=== PATIENT | male | born 1970 | race Caucasian/White ===

== ENCOUNTER 2020-05-09 13:16 | Emergency (ER) | payer OTHER, SELFPAY ==
--- NOTE | ~2020-05-09 | CT_ITS ---
EXAMINATION: CT abdomen pelvis w con DATE: 05/09/2020 17:37 INDICATION: Left lower quadrant abdominal pain. Nausea and vomiting. TECHNIQUE: Computed tomography (CT) of the abdomen and pelvis was performed with 100 mL Omnipaque 350 intravenous contrast. Automated exposure control and iterative reconstruction technique were employe d. The dose-length product was 874.05 mGy-cm. COMPARISON: None. FINDINGS: The visualized portions of the lung bases demonstrate mild atelectasis. A calcified right l willie nodule is consistent with old granulomatous disease. No pleural effusion. The heart size is jamel l. No pericardial effusion. The liver, spleen, pancreas, adrenal glands, and kidneys are normal. Ther e are changes of cholecystectomy. There is an anastomosis in the sigmoid colon. There are changes of appendectomy. There are no dilated loops of bowel. There are no pathologically enlarged lymph nodes. There is no free intraperitoneal fluid. There is mild thoracolumbar spondylosis. IMPRESSION: 1. No etiology for the patient's symptoms. Reviewed, dictated and finalized at location A.
[2020-05-09 13:25] VITALS: BP 129/89; PULSE 107; RESP 18; TEMP 36.6; O2SAT 97
[2020-05-09 13:37] LABS: Basophils Percent Auto 0.6 % (0.2-1.2); Eosinophils Absolute Auto 0.1 K/mm3 (0-0.3); Eosinophils Percent Auto 1.3 % (0-4.4); Hematocrit 43.5 % (42.0-52.0); Hemoglobin 14.5 g/dL (14.0-18.0); Immature Granulocyte Absolute 0.01 K/mm3 (0.00-0.031); Immature Granulocyte Percent A 0.2 % (0-0.5); Lymphocytes Absolute Auto 2.18 K/mm3 (0.9-3.2); Lymphocytes Percent Auto 41.6 % (18.3-44.2); Mean Corpuscular HGB Conc 33.3 g/dl (32-36); Mean Corpuscular Hemoglobin 26.5 pg (26-34); Mean Corpuscular Volume 79.5 fl (80-100); Mean Platelet Volume 9.2 fl (7.4-10.4); Monocytes Absolute Auto 0.3 K/mm3 (0.1-0.6); Monocytes Percent Auto 5.7 % (2.6-8.5); Neutrophils Absolute Auto 2.7 K/mm3 (1.3-6.7); Neutrophils Percent Auto 50.6 % (45.5-73.1); Platelet Count Result 277 k/mm3 (150-375); Red Blood Count 5.47 M/mm3 (4.6-6.20); Red Cell Distribution Width 14.4 % (11.5-14.5); White Blood Count 5.2 K/mm3 (4.5-10.0)
[2020-05-09 13:48] LABS: Partial Thromboplastin Time 27.3 SECONDS (22.3-36.8); Prothrombin Time 12.8 Seconds (11.1-14.7)
[2020-05-09 13:51] LABS: Alanine Aminotransferase 38 U/L (4-50); Albumin Level 4.3 g/dL (3.5-5.1); Alkaline Phosphatase 57 U/L (38-126); Anion Gap 8 mmol/L (8-16); Aspartate Amino Transferase 37 U/L (17-59); Bilirubin,Total 0.3 mg/dL (0.2-1.3); Blood Urea Nitrogen 8 mg/dL (9-20); Calcium 9.6 mg/dL (8.4-10.2); Carbon Dioxide 25 mmol/L (22-30); Chloride 102 mmol/L (98-107); Estimated CRCL calculation 91 ml/min; Estimated Glomerular Filt Rate > 60; Glucose 233 mg/dL (75-110); Potassium 3.9 mmol/L (3.4-5.0); Sodium 135 mmol/L (137-145)
[2020-05-09 16:00] LABS: Add Urine Microscopic? YES; Appearance Urine Clear (Clear); Bacteria Urine Trace /hpf; Bilirubin Urine Negative (Negative); Blood Urine Negative (Negative); Color Urine Yellow (Yellow); Glucose Urine UA 2+ mg/dL (Negative); Ketones Urine Negative (Negative); Leukocyte Esterase Ur Negative LEU/UL (Negative); Mucus Urine Few /lpf; Nitrate Urine Negative (Negative); Protein Urine Negative (Negative); RBC Urine 0-2 /hpf (0-2); Specific Grav Ur 1.023 (1.001-1.035); Squamous Epithelial Cell Urine Rare /hpf (Few); Urobilinogen Urine Negative mg/dL (<2.0); WBC Urine 0-3 /hpf
[2020-05-09 16:09] VITALS: BP 142/98; PULSE 98; RESP 17; O2SAT 98
--- NOTE | 2020-05-09 16:20 | ED.ABDPAIN ---
HPI - Abdominal Pain General Chief Complaint: Abdominal Pain Stated Complaint: abd pain Time Seen by Provider: 05/09/20 16:05 Source: RN notes reviewed History of Present Illness HPI narrative: Patient presents emergency department from home for abdominal pain. Patient states symptoms been ongoing for the past 6 days. Pain is located in the left lower quadrant and does not radiate described as sharp and stabbing. Associated with nausea vomiting and diarrhea. Patient states he has had some small amount of blood in his stool as well. States he has a history of diverticulitis and has had 8 cm of his colon removed. States this feels like previous diverticulitis. States he is taken nothing for pain today. Patient states he recently moved up here from [place] does not have a regularly established PCP in this area. He denies any fevers or chills chest pain shortness of breath or any other symptoms Related Data Home Medications Medication Instructions Recorded Confirmed escitalopram oxalate [Lexapro] 5 mg PO DAILY 05/09/20 metformin 1,000 mg PO BID 05/09/20 trazodone 50 mg PO BID 05/09/20 Allergies Allergy/AdvReac Type Severity Reaction Status Date / Time gabapentin Allergy Unknown Verified 05/09/20 16:07 ketorolac [From Toradol] Allergy Unknown Verified 05/09/20 16:07 promethazine [From Phenergan] Allergy Unknown Verified 05/09/20 16:07 Review of Systems Review of Systems: Narrative: Gen.: Denies fevers or chills ENT: Denies congestion Respiratory: Denies shortness of breath or cough CV: See HPI denies burning, urgency, frequency or hematuria Musculoskeletal: Denies back pain or muscle pain Neuro: Denies numbness, tingling, weakness or focal weakness Skin: Denies rash Except as documented, all other systems reviewed and negative [facility] Past Medical History Medical History (Updated 05/09/20 @ 17:53 by Blu Guadarrama DO) Diverticulitis Social History Social History (Updated 05/09/20 @ 16:21 by Blu Guadarrama DO) Smoking status: Never smoker Gender identity (if verbalized by the patient): Male Exam Narrative: Exam Narrative: APPEARANCE: No acute distress, nontoxic, resting in bed HEENT: Normocephalic, atraumatic, OMM RESPIRATORY: No respiratory distress, clear to auscultation bilaterally with no rhonchi wheezing or rales CARDIOVASCULAR: RRR s murmur ABDOMINAL: Soft, nondistended, tender palpation left lower quadrant, no tenderness left upper quadrant, right upper quadrant lower quadrant, no rebound or guarding Rectal: No hemorrhoids or fissures, moderate mass of brown stool that is Hemoccult negative MUSCULOSKELETAl: Moves all extremities. No clubbing, cyanosis or edema. NEURO: Awake and alert. Following commands, speech normal, no focal deficits SKIN:: Warm, dry. Normal Color PSYCHIATRIC: Normal affect/mood Course Course Emergency Course: Patient states he just returned from [facility] and he is now going to be living here. He states that morphine does not normally help with his pain he normally requires Dilaudid. States he is currently on Augmentin Patient states that they are feeling much better at this time. States abdominal pain has improved. Abdominal exam shows no surgical abdomen. Discussed with patient results of workup and diagnosis. Discussed need for follow-up with primary care physician, reasons to return to the emergency department in proper use of medication. Patient understands and agrees to current treatment plan Vital Signs Vital signs: Vital Signs Temperature 97.8 F 05/09/20 13:25 Pulse Rate 107 H 05/09/20 13:25 Respiratory Rate 18 05/09/20 13:25 Blood Pressure 129/89 05/09/20 13:25 Pulse Oximetry 97 05/09/20 13:25 Temperature 97.8 F 05/09/20 13:25 Pulse Rate 98 05/09/20 16:09 Respiratory Rate 17 05/09/20 16:09 Blood Pressure 142/98 H 05/09/20 16:09 Pulse Oximetry 98 05/09/20 16:09 MDM - Abdominal Pain MDM Narrative M
[2020-05-09] MEDS: SODIUM CHLORIDE 0.9% IV 1,000 ML 999 ML IV CONT (16:26)
[2020-05-09] MEDS: ONDANSETRON INJ 4 MG/2 ML VIAL IV PUSH (16:26)
[2020-05-09] MEDS: MORPHINE SULFATE (*CRX) 4 MG/ML INJ IV PUSH (16:26)
[2020-05-09] MEDS: HYDROmorphone HCL INJ (*CRX) 1 MG/ML SYR 0.5 MG IV PUSH (17:15)
== END 2020-05-09 18:39 | disposition home or self-care (01) ==
PROVIDERS: Emergency Medicine; Emergency Provider Emergency Medicine
DX: R10.32 Left lower quadrant pain (principal)
CPT/HCPCS: 36415; 74177; 80053; 81001; 85025; 85610; 85730; 86850; 86900; 86901; 96361; 96374; 96375; 99284; J1170; J2270; J2405; J7030; Q9967

== ENCOUNTER 2020-08-29 13:36 | Inpatient (IN) | payer OTHER, SELFPAY ==
[2020-08-29] VITALS (29 sets, daily range): BP systolic 102–160; BP diastolic 73–98; PULSE 84–103; RESP 18–40; TEMP 36.3–37.2; O2SAT 93–100; BMI 27.3
--- NOTE | ~2020-08-29 | XR_ITS ---
EXAMINATION: XR chest 1V portable DATE: 08/29/2020 15:28 INDICATION: COVID-19 pneumonia. Shortness of breath. TECHNIQUE: A single frontal view of the chest was obtained. COMPARISON: CT abdomen and pelvis 05/09/2020 FINDINGS: There is chronic mild elevation of right hemidiaphragm. There are patchy airspace opacities in all lung zones bilaterally. No pleural effusion or pneumothorax. The heart size is normal. IMPRESSION: 1. Diffuse lung disease, consistent with pneumonia. Reviewed, dictated and finalized at location A. STOR INSPECTOR
--- NOTE | ~2020-08-29 | CT_ITS ---
EXAMINATION: CT abdomen pelvis wo con EXAM DATE: 08/29/2020 17:42 INDICATION: Abdominal pain. TECHNIQUE: Spiral CT of the abdomen and pelvis was performed without contrast. Axial, coronal and s agittal images were reviewed. The dose-length product (DLP) for this examination was 709.04 mGy-cm. The exposure was tailored according to patient size (auto mA exposure control), and iterative recons truction (ASIR) was used as additional dose reduction technique. Comparison is made to prior examinat ion from . FINDINGS: There is moderate amount of bibasilar peripheral predominant airspace disease, appearance i s consistent with subacute stage of COVID 19 pneumonia. Other etiologies are not excludable. The liver, spleen, adrenal glands and pancreas are unremarkable. There are cholecystectomy clips. T here is no nephrolithiasis or hydronephrosis. The prostate is unremarkable. The bladder is unremar kable. There is no retroperitoneal or pelvic lymphadenopathy. Small umbilical fat-containing hernia. There are surgical changes consistent with appendectomy. The stomach and small bowel are unremarkab le. Rectosigmoid anastomosis. There is expected amount of colonic stool. No free intraperitoneal ga s. The heart is normal in size. There are no pericardial or pleural effusions. There are no osteo blastic or osteolytic lesions identified. IMPRESSION: 1. No acute intra-abdominal findings. 2. Moderate amount of bibasilar airspace disease appearance consistent with subacute COVID 19 pneumo hafsa. Reviewed, dictated and finalized at location A. NET MOUNTER IMPRESSION: 1. No acute intra-abdominal findings. 2. Moderate amount of bibasilar airspace disease appearance consistent with nieves bacute COVID 19 pneumonia.
--- NOTE | ~2020-08-29 | CT_ITS ---
EXAMINATION: CTA chest PE protocol DATE: 08/30/2020 14:30 INDICATION: COVID-19 pneumonia. Tachycardia. TECHNIQUE: Computed tomography angiography (CTA) of the chest was performed with 100 mL Omnipaque-350 intravenous contrast timed to evaluate the pulmonary arteries. Coronal maximum intensity projection 3D-reconstructions were created by the technologist. Automated exposure control and iterative reconst ruction technique were employed. The dose-length product was 515.99 mGy-cm. COMPARISON: Chest single view 08/29/2020, CT abdomen and pelvis 05/09/2020 FINDINGS: There is chronic mild elevation of right hemidiaphragm. There is a pneumatocele in right up per lobe. A calcified right lung nodule is consistent with old granulomatous disease. There are patch y airspace and groundglass opacities in all lobes with a peripheral predominance. No pleural effusion . There is no pulmonary embolus. The heart size is normal. No pericardial effusion. There are changes of cholecystectomy. There is mild thoracic spondylosis. IMPRESSION: 1. No pulmonary embolus. Sensitivity is moderately decreased by motion artifact. 2. Diffuse lung disease, consistent with COVID-19 pneumonia. Reviewed, dictated and finalized at location A. PLANT SUPERVISOR IMPRESSION: 1. No pulmonary embolus. Sensitivity is moderately decreased by motion artifact . 2. Diffuse lung disease, consistent with COVID-19 pneumonia.
--- NOTE | 2020-08-29 14:11 | ECG_ITS ---
Measurements Intervals [place] Rate: 100 P: 20 MN: 184 QRS: 16 QRSD: 95 T: 1 QT: 374 QTc: 484 Interpretive Statements SINUS TACHYCARDIA MINIMAL Q WAVES- INFERIOR LEADS BORDERLINE ST ABNORMALITY- ANT/LAT LEADS BASELINE ARTIFACT- I, II, AVR, AVL,A VF, V1 BORDERLINE ECG Electronically Signed On 08-29-2020 15:01:36 [employer] by King Chavez D.O.
--- NOTE | 2020-08-29 14:13 | ED.SOB ---
HPI - SOB/Dyspnea General Chief Complaint: Shortness of Breath/Dyspnea Stated Complaint: COVID +, SOB Time Seen by Provider: 08/29/20 13:59 History of Present Illness HPI Narrative: 50 yo male w/ h/o DM, depression presents to the ED with multiple complaints. He began to feel ill on 08/16/2020. He had PATTON, cough, nausea. He tested positive for COVID-19 on 08/23/2020. He reports that he is now SOB and weak. He is concerned that he may have a GI bleed. He does report dark foul smelling stools and epigastric pain. This is reportedly his third time in the Ed since being diagnsed. Related Data Home Medications Medication Instructions Recorded Confirmed escitalopram oxalate [Lexapro] 5 mg PO DAILY 05/09/20 metformin 1,000 mg PO BID 05/09/20 trazodone 50 mg PO BID 05/09/20 Tessalon Perles 08/29/20 Allergies Allergy/AdvReac Type Severity Reaction Status Date / Time gabapentin Allergy Unknown Verified 08/29/20 14:09 ketorolac [From Toradol] Allergy Unknown Verified 08/29/20 14:09 promethazine [From Phenergan] Allergy Unknown Verified 08/29/20 14:09 Review of Systems Review of Systems: All systems reviewed & are unremarkable except as noted in HPI and below Constitutional: Constitutional: Reports fatigue, Reports fever(s) and Reports weakness Cardiovascular: Cardiovascular: Reports chest pain Respiratory: Respiratory: Reports chest congestion, Reports cough and Reports dyspnea Gastrointestinal: Gastrointestinal: Reports abdominal pain, Reports nausea and Reports vomiting Genitourinary: Genitourinary: Denies dysuria Neurologic: Reports numbness and Reports weakness [facility] Past Medical History Medical History Diabetes mellitus Diverticulitis Social History Social History Smoking status: Never smoker Gender identity (if verbalized by the patient): Male Exam Const: General: no acute distress, alert and ill appearing Orientation/consciousness: patient oriented x3 HENMT: Mouth: Yes dry mucous membranes Eyes: Pupils: Equal, round and reactive pupils present Resp: Effort & Inspection: tachypneic Auscultation: crackles and rhonchi Cardio: Rate: tachycardic Rhythm: regular rhythm GI: GI Palp: Yes Tenderness to palpation present (GI) (epigastric) Skin: General skin exam: normal color Neuro: General: patient oriented x3, moves all extremities and CN's II-XI intact bilaterally Speech: normal speech Extrem: General: normal to inspection Course Vital Signs Vital signs: Vital Signs Temperature 36.3 C L 08/29/20 13:56 Pulse Rate 98 08/29/20 13:56 Respiratory Rate 33 H 08/29/20 13:56 Blood Pressure 146/73 H 08/29/20 13:56 Pulse Oximetry 93 08/29/20 13:56 Temperature 36.3 C L 08/29/20 13:56 Pulse Rate 96 08/29/20 14:04 Respiratory Rate 33 H 08/29/20 13:56 Blood Pressure 146/73 H 08/29/20 13:56 Pulse Oximetry 97 08/29/20 14:08 MDM - SOB/Dyspnea Differential Diagnosis Differential diagnosis: Likely community acquired pneumonia and other (COVID-19, GI bleed, dehydration) Lab Data Attestation: I reviewed the patient's lab results. Result diagrams: 08/29/20 14:40 08/29/20 14:40 Labs: Lab Results 08/29/20 08/29/20 08/29/20 Range/Units 14:40 14:40 14:40 WBC 3.4 L (4.5-10.0) K/mm3 RBC 5.10 (4.6-6.20) M/mm3 Hgb 13.1 L (14.0-18.0) g/dL Hct 39.0 L (42.0-52.0) % MCV 76.5 L (80-100) fl MCH 25.7 L (26-34) pg MCHC 33.6 (32-36) g/dl RDW 14.0 (11.5-14.5) % Plt Count 312 (150-375) k/mm3 MPV 9.4 (7.4-10.4) fl Immature Gran % (Auto) 0.3 (0-0.5) % Neut % (Auto) 63.6 (45.5-73.1) % Lymph % (Auto) 29.1 (18.3-44.2) % [place] % (Auto) 6.4 (2.6-8.5) % Eos % (Auto) 0.3 (0-4.4) % Baso % (Auto) 0.3 (0.2-1.2) % Lymph # (Auto) 1.00 (0.9-3.2) K/mm3 [place] # (Auto
[2020-08-29] MEDS: SODIUM CHLORIDE 0.9% IV 1,000 ML 999 ML IV CONT (14:37)
[2020-08-29] MEDS: ONDANSETRON INJ 4 MG/2 ML VIAL IV PUSH (14:39)
[2020-08-29] MEDS: PANTOPRAZOLE SODIUM IV 40 MG VIAL IV PUSH (14:40)
[2020-08-29 14:50] LABS: Basophils Percent Auto 0.3 % (0.2-1.2); Eosinophils Percent Auto 0.3 % (0-4.4); Hemoglobin 13.1 g/dL (14.0-18.0); Immature Granulocyte Absolute 0.01 K/mm3 (0.00-0.031); Immature Granulocyte Percent A 0.3 % (0-0.5); Lymphocytes Percent Auto 29.1 % (18.3-44.2); Mean Corpuscular HGB Conc 33.6 g/dl (32-36); Mean Corpuscular Hemoglobin 25.7 pg (26-34); Mean Corpuscular Volume 76.5 fl (80-100); Mean Platelet Volume 9.4 fl (7.4-10.4); Monocytes Absolute Auto 0.2 K/mm3 (0.1-0.6); Monocytes Percent Auto 6.4 % (2.6-8.5); Neutrophils Absolute Auto 2.2 K/mm3 (1.3-6.7); Neutrophils Percent Auto 63.6 % (45.5-73.1); Platelet Count Result 312 k/mm3 (150-375); White Blood Count 3.4 K/mm3 (4.5-10.0)
[2020-08-29 14:59] LABS: Partial Thromboplastin Time 28.6 SECONDS (22.3-36.8); Prothrombin Time 13.4 Seconds (11.1-14.7)
[2020-08-29 15:00] LABS: Lactic Acid Reflex 1.1 mmol/L (0.7-2.1)
[2020-08-29 15:01] LABS: Alanine Aminotransferase 31 U/L (4-50); Albumin Level 3.9 g/dL (3.5-5.1); Alkaline Phosphatase 75 U/L (38-126); Anion Gap 10 mmol/L (8-16); Aspartate Amino Transferase 58 U/L (17-59); Bilirubin,Total 0.5 mg/dL (0.2-1.3); Blood Urea Nitrogen 10 mg/dL (9-20); Calcium 8.7 mg/dL (8.4-10.2); Carbon Dioxide 24 mmol/L (22-30); Chloride 100 mmol/L (98-107); Estimated CRCL calculation 91 ml/min; Estimated Glomerular Filt Rate > 60; Glucose 148 mg/dL (75-110); Lipase 75 U/L (23-300); Sodium 134 mmol/L (137-145)
[2020-08-29 15:03] LABS: Alveolar/Arterial O2 Gradient 156.9 mmHg; Base Excess ABG -10.2 mEq/l (+/-2.0); Fractional Inspired Oxygen 30 %; HCO3 ABG 13.5 mEq/l (22.0-26.0); Oxygen Content ABG 7.6 %vol (16.0-22.0); Oxyhemoglobin 59.1 % THb (90.0-100.0); PO2 FiO2 Ratio Arterial Blood 0.99 %; Total Hemoglobin 9.1 g/dL (12.0-18.0); pH ABG 7.382 (7.350-7.450)
[2020-08-29 15:19] LABS: PCO2 ABG 23.3 mmHg (35.0-45.0)
[2020-08-29 15:20] LABS: PO2 ABG 29.6 mmHg (80.0-100.0)
[2020-08-29 15:21] LABS: Device ROOM AIR; Modified Allen's Test Pass; Site Drawn RIGHT BRACHIAL
[2020-08-29] MEDS: LORazepam INJ (*CRX) 2 MG/ML VIAL 0.5 MG IV PUSH ×2 (16:59→21:09)
[2020-08-29] MEDS: LOPERAMIDE HCL 2 MG CAPSULE 4 MG PO (17:00)
--- NOTE | 2020-08-29 17:10 | PM.IMHP ---
H&P: HPI History of Present Illness Date/Time: 08/29/20 17:10 Chief Complaint: Shortness of breath Narrative: Erich Allen is a 50 year old male Who stated that he went to [facility] around August 22 to and was tested positive for COVID-19. The patient stated that he was feeling poor on [place]. His fiancee was tested positive for COVID-19 and has already recovered. The patient comes in today with multiple complaints. He has left lower quadrant abdominal pain and states that he is had diverticulitis in the past. He states that he is very achy and he has been having fever and chills. He stated that he has taken Motrin and Tylenol for the discomfort it did not help. The patient is having diarrhea as well and is requesting Imodium. He is also complaining of having some nausea. We discussed his abdominal pain and he stated that he would not take any contrast at this time because it makes him feel funny. He was started on IV Decadron. His potassium was noted to be 3.0 and I ordered him a potassium rider. Patient is feeling quite nauseated and anxious. His respirations were in the upper 30s and he was started on 1.5 L of oxygen per nasal cannula. The patient suffers from severe PTSD. His ABGs were mixed and he refused to have them redrawn. Sodium was 134 potassium 3.0. He is diabetic and his blood sugar was noted to be 148. Patient is being admitted to observation on the date of service of 08/29/2020 Review of Systems Review of Systems: All systems reviewed & are unremarkable except as noted in HPI and below Constitutional: Constitutional: Reports as per HPI and Reports no additional constitutional complaints Eyes: Eyes: Reports as per HPI and Reports no additional eye complaints ENT: Reports system reviewed and no additional complaints, except as documented and Reports Normal hearing present Cardiovascular: Cardiovascular: Reports no additional cardiovascular complaints Respiratory: Respiratory: Reports no additional respiratory complaints and Reports no additional respiratory complaints Gastrointestinal: Gastrointestinal: Reports as per HPI and Reports no additional gastrointestinal complaints Musculoskeletal: Musculoskeletal: Reports no additional musculoskeletal complaints Integumentary/Breasts: Skin/Breast: Reports system reviewed and no additional complaints, except as docu and Reports as per HPI Neurologic: Reports system reviewed and no additional complaints, except as documented, Reports as per HPI and Reports Normal hearing present Psychiatric: Psychiatric: Reports no additional psychiatric complaints and Reports as per HPI Endocrine: Endocrine: Reports no additional endocrine complaints Hematologic/Lymphatic: Hematologic/Lymphatic: Reports no additional hematologic/lymphatic complaints Allergic/Immunologic: Allergic/Immunologic: Reports no additional allergic/immunologic complaints [facility] Past Medical History Medical History (Updated 08/29/20 @ 17:22 by Virginie King NP) Depression Diabetes mellitus Diverticulitis PTSD (post-traumatic stress disorder) Surgical History Surgical History (Updated 08/29/20 @ 17:22 by Virginie King NP) H/O hand surgery History of ankle surgery right History of appendectomy History of colon resection History of Ludmila fundoplication Hx of cholecystectomy Family History Family History (Updated 08/29/20 @ 17:23 by Virginie King NP) Father Heart disease Social History Social History (Updated 08/29/20 @ 17:28 by Virginie King NP) Social History: the patient is engaged. he has a son. He does not have a durable power claims attorney for healthcare poa and he is full code. He denies any alcohol or illicit drug use. 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 Smoking status: Never smoker Gender identity (if verbalized by the patient): Male Meds Home Medications and Allergies Home Medications Medication Instr
--- NOTE | 2020-08-29 17:54 | ADMGEN ---
This patient, Erich Allen, was admitted to 3 Med Surg Room 329-01 @ 1742. Patient/family oriented to hospital policies and general routines including ID bracelet, bed and alarms, visiting hours, pain management, procedures, bathroom and other care routines, personal items, smoking policy, room service/diet, and visiting hours. Information on how to activate the Rapid Response Team has been discussed. Patient/Family are encouraged to report perceived risks to care and to ask questions if they do not understand what they are told or what they should do.
[2020-08-29] MEDS: REMDESIVIR 200 MG/NS 250 ML 200 MG/250 ML BAG 250 MG IVPB (18:00)
[2020-08-29 18:01] LABS: Glucose Point of Care 152 (65-105)
[2020-08-29 18:28] LABS: Alanine Aminotransferase 29 U/L (4-50)
[2020-08-29] MEDS: ALBUTEROL SULFATE (*SP) AEROSOL 1 PUFF 2 PUFF INHALATION (21:06)
[2020-08-29] MEDS: KCL 20 MEQ/SW 100 ML 100 ML 50 MEQ IVPB (21:08)
[2020-08-29] MEDS: guaiFENesin/DEXTROMETHORPHAN 10 ML UDC PO (21:14)
[2020-08-29] MEDS: INSULIN ASPART (*BKC) 100 UNITS/ML SUB-Q (22:26)
[2020-08-29] MEDS: traZODone HCL 50 MG TABLET PO (22:26)
[2020-08-29 22:43] LABS: Glucose Point of Care 297 (65-105)
[2020-08-30] VITALS (10 sets, daily range): BP systolic 134–143; BP diastolic 65–87; PULSE 65–100; RESP 16–20; TEMP 36.2–36.9; O2SAT 94–97
[2020-08-30] MEDS: ALBUTEROL SULFATE (*SP) AEROSOL 1 PUFF 2 PUFF INHALATION ×4 (01:49→21:31)
[2020-08-30] MEDS: guaiFENesin/DEXTROMETHORPHAN 10 ML UDC PO ×3 (01:55→21:02)
[2020-08-30 06:54] LABS: Basophils Percent Auto 0.5 % (0.2-1.2); Hematocrit 35.7 % (42.0-52.0); Hemoglobin 11.9 g/dL (14.0-18.0); Immature Granulocyte Absolute 0.01 K/mm3 (0.00-0.031); Immature Granulocyte Percent A 0.5 % (0-0.5); Lymphocytes Percent Auto 19.1 % (18.3-44.2); Mean Corpuscular HGB Conc 33.3 g/dl (32-36); Mean Corpuscular Hemoglobin 26.2 pg (26-34); Mean Corpuscular Volume 78.6 fl (80-100); Mean Platelet Volume 9.5 fl (7.4-10.4); Monocytes Absolute Auto 0.1 K/mm3 (0.1-0.6); Monocytes Percent Auto 5.7 % (2.6-8.5); Neutrophils Absolute Auto 1.6 K/mm3 (1.3-6.7); Neutrophils Percent Auto 74.2 % (45.5-73.1); Platelet Count Result 304 k/mm3 (150-375); Red Blood Count 4.54 M/mm3 (4.6-6.20); Red Cell Distribution Width 14.4 % (11.5-14.5); White Blood Count 2.1 K/mm3 (4.5-10.0)
[2020-08-30 07:10] LABS: Alanine Aminotransferase 26 U/L (4-50); Albumin Level 3.6 g/dL (3.5-5.1); Alkaline Phosphatase 64 U/L (38-126); Anion Gap 6 mmol/L (8-16); Aspartate Amino Transferase 38 U/L (17-59); Bilirubin,Total 0.4 mg/dL (0.2-1.3); Blood Urea Nitrogen 10 mg/dL (9-20); Calcium 8.6 mg/dL (8.4-10.2); Carbon Dioxide 26 mmol/L (22-30); Chloride 103 mmol/L (98-107); Estimated CRCL calculation 91 ml/min; Estimated Glomerular Filt Rate > 60; Glucose 291 mg/dL (75-110); Lactate Dehydrogenase 618 U/L (313-618); Potassium 4.2 mmol/L (3.4-5.0); Sodium 135 mmol/L (137-145)
[2020-08-30 07:57] LABS: Thyroid Stimulating Hormone Reflex 0.818 uIU/mL (0.465-4.68)
[2020-08-30] MEDS: ESCITALOPRAM OXALATE 5 MG TABLET PO (09:06)
[2020-08-30] MEDS: DEXAMETHASONE SOD PHOS INJ 4 MG/ML VIAL 6 MG IV PUSH (09:06)
[2020-08-30 09:07] LABS: Glucose Point of Care 247 (65-105)
[2020-08-30] MEDS: INSULIN ASPART (*BKC) 100 UNITS/ML SUB-Q ×3 (09:07→17:16)
[2020-08-30] MEDS: hydrALAZINE HCL 20 MG/ML VIAL 10 MG IV PUSH (09:10)
--- NOTE | 2020-08-30 11:19 | PM.IMPN ---
Progress Note: A&P Assessment and Plan (1) Pneumonia due to 2019-nCoV: Code(s): U07.1 - COVID-19; J12.82 - Pneumonia due to coronavirus disease 2019 Status: Acute Assessment and Plan: Patient was diagnosed on August 22, 2020 -he continues to feel short of breath and now requires oxygen -continue Remdesivir and Decadron -continue O2 for saturations less than 90 -he is at risk for PE since he has diabetes, overweight, and has COVID-19, CTA ordered -he is agreeable to Lovenox, start 40 mg b.i.d. -encouraged spirometer to open his lungs (2) Acute hypoxemic respiratory failure: Code(s): J96.01 - Acute respiratory failure with hypoxia Status: Acute Assessment and Plan: Likely due to above -check CTA to rule out PE (3) EKG abnormality: Code(s): R94.31 - Abnormal electrocardiogram [ECG] [EKG] Status: Acute Assessment and Plan: Patient has some very subtle EKG abnormalities -no prior EKG to compare -no reports of chest pain -changes could be due to PE, obtain CTA -will draw troponin and BNP to ensure no silent [place] -I also heard a slight murmur which he says he is unaware of. Will await above and may consider echo (4) PTSD (post-traumatic stress disorder): Code(s): F43.10 - Post-traumatic stress disorder, unspecified Status: Chronic Assessment and Plan: No current issues. -continue Lexapro and trazodone (5) Depression: Code(s): F32.9 - Major depressive disorder, single episode, unspecified Status: Chronic Assessment and Plan: Stable, Lexapro and trazodone (6) Hyponatremia: Code(s): E87.1 - Hypo-osmolality and hyponatremia Status: Acute Assessment and Plan: Improved at 135 (7) Hypokalemia: Code(s): E87.6 - Hypokalemia Status: Acute Assessment and Plan: Resolved (8) Diverticulitis: Code(s): K57.92 - Diverticulitis of intestine, part unspecified, without perforation or abscess without bleeding Status: Acute Assessment and Plan: No further complaints of abdominal pain and he is eating and drinking okay -CT abdomen pelvis shows no current infection (9) Diabetes mellitus: Code(s): E11.9 - Type 2 diabetes mellitus without complications Status: Inactive Assessment and Plan: Last glucose 247 -likely worsened due to dexamethasone -sliding scale increased -hold metformin -monitor with Accu-Cheks and continue sliding scale insulin Time Spent With Patient Time with patient: 25 - 35 minutes Subjective Date/time seen: 08/30/20 11:19 Interval history: Pt is a 50 year old male who presented emergency room for COVID-19 with shortness of breath. Patient was seen today and states he still can't take very deep breaths without coughing or feeling short of breath. He has not been out of bed. He does not feel short of breath when he does not move. He is eating and drinking a little better than he was outpatient. He feels like he has made a little improvement. We talked about the importance of the incentive spirometer as well as anticoagulation with patients with COVID-19. I reviewed with him the worry for a PE since he is tachycardic, has COVID-19, and has Q-waves and inverted T-waves on the EKG. He states he has absolutely no chest pain but agrees to do the CTA. He says he is not allergic to contrast but he does get a little nauseated when he gets it. After talking about the pros and cons, he agreed to the CTA Review of Systems Review of Systems: All systems reviewed & are unremarkable except as noted in HPI and below Exam Narrative: Exam Narrative: General: Well developed well nourished patient in NAD HEENT: normocephalic Neck: supple Neuro: Alert and oriented x4 CV:RRR with slight systolic murmur heard at the apex Resp: Patient unable to take deep breaths without significant cough. Decreased breath gia
[2020-08-30 12:17] LABS: Glucose Point of Care 324 (65-105)
[2020-08-30 12:24] LABS: NT Pro B Type Natriuretic Pept 227 PG/ML (5-100); Troponin I < 0.012 ng/mL (0.000-0.034)
[2020-08-30] MEDS: ENOXAPARIN 40 MG/0.4 ML SYRINGE SUB-Q ×2 (12:40→21:02)
[2020-08-30] MEDS: ONDANSETRON INJ 4 MG/2 ML VIAL IV PUSH (13:32)
[2020-08-30] MEDS: LORazepam INJ (*CRX) 2 MG/ML VIAL 0.5 MG IV PUSH (16:09)
[2020-08-30 17:22] LABS: Glucose Point of Care 345 (65-105)
[2020-08-30] MEDS: MELATONIN 5 MG TABLET PO (21:02)
[2020-08-30] MEDS: traZODone HCL 50 MG TABLET PO (21:02)
[2020-08-30 21:26] LABS: Glucose Point of Care 289 (65-105)
[2020-08-30] MEDS: LORazepam INJ (*CRX) 2 MG/ML VIAL 1 MG IV PUSH (21:58)
[2020-08-30] MEDS: REMDESIVIR 100 MG/NS 250 ML 100 MG/250 ML BAG 250 MG IVPB (21:59)
[2020-08-31] VITALS (8 sets, daily range): BP systolic 126–167; BP diastolic 72–88; PULSE 63–108; RESP 18–20; TEMP 36.4–36.9; O2SAT 92–97
--- NOTE | 2020-08-31 | ECHO_ITS ---
Patient Info Name: Erich Allen Age: 50 years : 1970 Gender: Male Ht: 71 in Wt: 196 lbs BSA: 2.13 m2 HR: 78 bpm BP: 155 / 88 mmHg Technical Quality: Good Exam Date: 08/31/2020 2:46 PM Exam Location: [facility] Patient Status: Inpatient Admit Date: 08/30/2020 Staff Ordering Physician: Ann Fletcher PA-C Educational Program Director: Blanca Benedict RDCS Attending Provider: Kajal Harris MD Referring Physician: Chance WOODSON; Exam Type: CA echo doppler color flow Study Info Indications R01.1 - Cardiac murmur, unspecified Complete two-dimensional, color flow and Doppler transthoracic echocardiogram is performed. Summary 1. Complete two-dimensional, color flow and Doppler transthoracic echocardiogram is performed. 2. Left ventricular chamber dimension is normal. 3. Left ventricular systolic function is normal, estimated at 65-70%. 4. The left ventricular diastolic function is abnormal. 5. E/e' 13 is mildly elevated. Left Ventricle E/e' 13 is mildly elevated. Left ventricular chamber dimension is normal. Left ventricular systolic function is normal, estimated at 65-70%. The left ventricular diastolic function is abnormal. Right Ventricle Right ventricular chamber dimension is normal. Right ventricular systolic function is normal. Left Atria Left atrial chamber dimension is normal. Right Atria Right atrial chamber dimension is normal. Aortic Valve The aortic valve is trileaflet. There is no aortic valve stenosis. There is no aortic valve regurgitation. Pulmonic Valve There is no pulmonic regurgitation. Mitral Valve There is no mitral valve stenosis. There is no mitral valve regurgitation. Tricuspid Valve There is no tricuspid valve regurgitation. Pericardium/Pleural There is no pericardial effusion. Inferior Vena Cava Normal inferior vena cava with >50% collapse upon inspiration consistent with normal right atrial pressure, 5 mmHg. Aorta The aortic root size at the sinus of Valsalva is normal. Left Ventricular Outflow Tract Name Value Normal LVOT 2D LVOT Diameter 2.0 cm LVOT Doppler LVOT Peak Gradient 8 mmHg LVOT Mean Gradient 5 mmHg LVOT VTI 28 cm LVOT VTI/AV VTI Ratio 0.8 LVOT Stroke Volume 88 ml LVOT CO 6.3 l/min LVOT CI 2.9 l/min/m2 Pulmonic Valve Name Value Normal RVOT Doppler RVOT Peak Gradient 2 mmHg PV Doppler PV Peak Gradient 4 mmHg Mitral Valve Name Value No
[2020-08-31] MEDS: guaiFENesin/DEXTROMETHORPHAN 10 ML UDC PO ×3 (01:50→21:12)
[2020-08-31] MEDS: ALBUTEROL SULFATE (*SP) AEROSOL 1 PUFF 2 PUFF INHALATION ×4 (01:57→21:10)
[2020-08-31 06:34] LABS: Hematocrit 35.6 % (42.0-52.0); Hemoglobin 11.6 g/dL (14.0-18.0); Mean Corpuscular HGB Conc 32.6 g/dl (32-36); Mean Corpuscular Hemoglobin 26.2 pg (26-34); Mean Corpuscular Volume 80.5 fl (80-100); Mean Platelet Volume 9.6 fl (7.4-10.4); Platelet Count Result 315 k/mm3 (150-375); Red Blood Count 4.42 M/mm3 (4.6-6.20); Red Cell Distribution Width 14.7 % (11.5-14.5)
[2020-08-31 06:46] LABS: Alanine Aminotransferase 23 U/L (4-50); Anion Gap 10 mmol/L (8-16); Blood Urea Nitrogen 12 mg/dL (9-20); Calcium 8.8 mg/dL (8.4-10.2); Carbon Dioxide 26 mmol/L (22-30); Chloride 102 mmol/L (98-107); Estimated CRCL calculation 91 ml/min; Estimated Glomerular Filt Rate > 60; Glucose 344 mg/dL (75-110); Sodium 138 mmol/L (137-145)
[2020-08-31 08:33] LABS: Glucose Point of Care 328 (65-105)
[2020-08-31 09:22] LABS: Hemoglobin A1C 7.8 % (<5.7)
[2020-08-31] MEDS: DEXAMETHASONE SOD PHOS INJ 4 MG/ML VIAL 6 MG IV PUSH (09:58)
[2020-08-31] MEDS: ENOXAPARIN 40 MG/0.4 ML SYRINGE SUB-Q ×2 (09:58→21:12)
[2020-08-31] MEDS: ESCITALOPRAM OXALATE 5 MG TABLET PO (09:58)
[2020-08-31] MEDS: INSULIN ASPART (*BKC) 100 UNITS/ML SUB-Q ×3 (10:00→17:26)
[2020-08-31] MEDS: LORazepam INJ (*CRX) 2 MG/ML VIAL 1 MG IV PUSH ×2 (10:21→21:27)
[2020-08-31 12:21] LABS: Glucose Point of Care 259 (65-105)
--- NOTE | 2020-08-31 14:11 | PM.IMPN ---
Progress Note: A&P Assessment and Plan (1) Pneumonia due to 2019-nCoV: Code(s): U07.1 - COVID-19; J12.82 - Pneumonia due to coronavirus disease 2019 Status: Acute Assessment and Plan: Patient was diagnosed on August 22, 2020 -he continues to feel short of breath and now requires oxygen -continue Remdesivir and Decadron -continue O2 for saturations less than 90 -CTA shows no PE -continue Lovenox 40 mg b.i.d. -encouraged spirometer to open his lungs (2) Acute hypoxemic respiratory failure: Code(s): J96.01 - Acute respiratory failure with hypoxia Status: Acute Assessment and Plan: Likely due to above -no PE on CTA (3) EKG abnormality: Code(s): R94.31 - Abnormal electrocardiogram [ECG] [EKG] Status: Acute Assessment and Plan: Patient has some very subtle EKG abnormalities -no prior EKG to compare -no reports of chest pain -troponin negative and BNP mildly elevated -I also heard a slight murmur which he says he is unaware of. -echo ordered (4) PTSD (post-traumatic stress disorder): Code(s): F43.10 - Post-traumatic stress disorder, unspecified Status: Chronic Assessment and Plan: No current issues. -continue Lexapro and trazodone (5) Depression: Code(s): F32.9 - Major depressive disorder, single episode, unspecified Status: Chronic Assessment and Plan: Stable, Lexapro and trazodone (6) Hyponatremia: Code(s): E87.1 - Hypo-osmolality and hyponatremia Status: Acute Assessment and Plan: Resolved, now 138 (7) Hypokalemia: Code(s): E87.6 - Hypokalemia Status: Acute Assessment and Plan: Resolved (8) Diverticulitis: Code(s): K57.92 - Diverticulitis of intestine, part unspecified, without perforation or abscess without bleeding Status: Acute Assessment and Plan: No further complaints of abdominal pain and he is eating and drinking okay -CT abdomen pelvis shows no current infection (9) Diabetes mellitus: Code(s): E11.9 - Type 2 diabetes mellitus without complications Status: Inactive Assessment and Plan: Last glucose 259 but has been higher prior -likely worsened due to dexamethasone -long-acting insulin started -hold metformin -monitor with Accu-Cheks and continue sliding scale insulin -A1c 7.8 Subjective Date/time seen: 08/31/20 14:11 Interval history: Patient is a 50-year-old male here for COVID-19. He was seen today and states he is feeling little better than yesterday. He is able to take deeper breaths but still feels short of breath when he is up and doing anything. No shortness of breath when he is at rest. He is still coughing a bit but not coughing up anything. He denies chest pain, nausea, vomiting, abdominal pain, fevers, chills or leg swelling. He feels a bit constipated Exam Narrative: Exam Narrative: General: Well developed well nourished patient in NAD HEENT: normocephalic Neck: supple Neuro: Alert and oriented x4 CV:RRR with slight systolic murmur heard at the apex. Telemetry reviewed without significant abnormalities Resp: Patient able to take deeper breaths today. He still has some shallow breathing with decreased breath sounds. No conversational dyspnea. 1 L nasal cannula Abd: Soft, non distended. No pain to palpation. Positive bowel sounds Extremities: No swelling, erythema, or pain to palpation. Objective Data Vital Signs Vital Signs: Vital Signs - 24 hr 08/30/20 16:00 08/30/20 18:00 08/30/20 20:00 Temperature 97.7 F 97.2 F L Pulse Rate 100 85 78 Respiratory Rate 18 18 Blood Pressure 139/79 143/80 H Pulse Oximetry 96 97 96 08/31/20 00:00 08/31/20 01:50 08/31/20 04:00 Temperature 98.5 F 97.5 F L Pulse Rate 86 78 Respiratory Rate 18 18 Blood Pressure 136/73 142/80 H Pulse Oximetry 94 94 94 08/31/20 04:19 08/31/20 08:00 08/31/20 12:0
[2020-08-31] MEDS: polyethylene glycoL 3350 17 GM POWD.PACK PO (14:28)
[2020-08-31 17:10] LABS: Glucose Point of Care 297 (65-105)
[2020-08-31] MEDS: MELATONIN 5 MG TABLET PO (21:12)
[2020-08-31] MEDS: traZODone HCL 50 MG TABLET PO (21:12)
[2020-08-31] MEDS: REMDESIVIR 100 MG/NS 250 ML 100 MG/250 ML BAG 250 MG IVPB (21:14)
[2020-08-31] MEDS: INSULIN GLARGINE (*BKC) 100 UNITS/ML 8 UNITS SUB-Q (21:14)
[2020-08-31 22:03] LABS: Glucose Point of Care 253 (65-105)
--- NOTE | 2020-08-31 23:17 | PC.NURSE ---
2100 PT VERY ANXIOUS. STATES HE WOULD LIKE TO BE DISCHARGED THIS WEEKEND. I INSTRUCTED HIM THAT HE IS GETTING HIS SECOND DOSE OF REMDESIVIR NOW AND IS SCHEDULED FOR A TOTAL OF 4 DOSES PRIOR TO DISCHARGE. VERBALIZED UNDERSTANDING.
--- NOTE | 2020-08-31 23:18 | PC.NURSE ---
4535 PT REMAINS ANXIOUS REQUESTING TO SPEAK WITH SOMEONE FROM THE [facility]. UNSUCCESSFUL CALL PLACED TO BRITNEY Ramos NP.
--- NOTE | 2020-08-31 23:20 | PC.NURSE ---
2300 IV FLUSHED AFTER REMDESIVIR INFUSION. PT NOW WANTS TO GO HOME AMA. PT IS ALERT, OX4. CURRENTLY ON ROOM AIR 96% SAT. NO RESP DISTRESS. PHYSICAL SCIENTIST ANDREW MADE AWARE. LOVELY RAMONCRYSTAL GAZER MADE AWARE. DR KARLA CHEUNG [facility] MADE AWARE.
--- NOTE | 2020-09-01 00:19 | PC.NURSE ---
4101 PT ALERT. OX4. NO DISTRESS NOTED. BENEFITS AND RISKS OF STAYING INPATIENT VERSUS AMA EXPLAINED TO PT. PT SIGNED AMA FORM AND CALLED HOME FOR A RIDE.
--- NOTE | 2020-09-01 00:22 | PC.NURSE ---
0015 PT LEFT AMBULATORY WITH MASK ON. NO RESP DISTRESS NOTED. PT TOOK HIS PERSONAL BELONGONGS WITH HIM.
--- NOTE | 2020-09-01 07:34 | PM.EVENT ---
Event Note Event Note Event Note: Solar Installation Helper informed me that the patient left AMA around midnight
== END 2020-09-01 00:15 | disposition left against medical advice (07) | DRG 177 ==
LOC: ANHED 16:37 → ANH3MEDSUR 16:42
PROVIDERS: Nurse Practitioner; Admitting Provider Family Medicine; Emergency Provider Emergency Medicine; Visit Provider Physician Assistant
DX: U07.1 COVID-19 (principal); J12.82 Pneumonia due to coronavirus disease 2019; J96.01 Acute respiratory failure with hypoxia; E87.1 Hypo-osmolality and hyponatremia; K57.92 Diverticulitis of intestine, part unspecified, without perforation or abscess without bleeding; R94.31 Abnormal electrocardiogram [ECG] [EKG]; F43.10 Post-traumatic stress disorder, unspecified; F32.9 Major depressive disorder, single episode, unspecified; E87.6 Hypokalemia; E11.9 Type 2 diabetes mellitus without complications; Z90.49 Acquired absence of other specified parts of digestive tract
CPT/HCPCS: 36415; 36600; 71045; 71275; 74176; 80048; 80053; 82805; 83036; 83605; 83615; 83690; 83735; 83880; 84443; 84460; 84484; 85025; 85027; 85610; 85730; 86850; 86900; 86901; 93005; 93306; 94640; 96361; 96365; 96366; 96367; 96375; 96376; 97161; 97165; 99291; A9270; C9113; G0378; J0360; J1100; J1650; J1815; J2060; J2405; J3480; J7030; Q9967

== ENCOUNTER 2020-12-16 20:35 | Inpatient (IN) | payer OTHER, SELFPAY ==
--- NOTE | ~2020-12-16 | XR_ITS ---
EXAMINATION: XR UGI water soluble w sbs EXAM DATE: 12/18/2020 11:24 INDICATION: Follow-up small bowel obstruction. TECHNIQUE: [employer] radiograph was acquired. Omnipaque water-soluble upper GI examination and small carmelina l series was performed by radiologist Kaleb Hussein M.D. Spot images of the terminal ileum were acquir ed. Pulsed dose reduction fluoroscopy was used with fluoroscopic time of 0.1. The DAP for this proc edure was 369 Gycm2. A total of 19 images obtained for the exam. Correlation is made to CT abdomen p bernie 12/16/2020. FINDINGS: Stomach has normal contour and position, no evidence of hiatal hernia. There is mildly dila adelso jejunum on the 15 minute image. Portion of ileum opacifies on the 30 minute image which is more n ormal in caliber. Contrast is just entering the cecum on the 1 hour image, normal transit time. Termi nal ileum unremarkable. No contrast extravasation. Cholecystectomy clips. IMPRESSION: Mildly dilated jejunum, ileus or partial obstruction. Normal transit time 1 hour. Reviewed, dictated and finalized at location A. IMPRESSION: Mildly dilated jejunum, ileus or partial obstruction. Normal trans it time 1 hour.
--- NOTE | ~2020-12-16 | CT_ITS ---
EXAMINATION: CT abdomen pelvis w con DATE: 12/16/2020 22:29 INDICATION: Left abdominal pain. TECHNIQUE: Computed tomography (CT) of the abdomen and pelvis was performed with 100 mL Omnipaque 350 intravenous contrast. Automated exposure control and iterative reconstruction technique were employe d. The dose-length product was 1045.35 mGy-cm. COMPARISON: CT abdomen and pelvis 08/29/2020 FINDINGS: The visualized portions of the lung bases demonstrate mild atelectasis. A calcified right l willie nodule is consistent with old granulomatous disease. No pleural effusion. The heart size is jamel l. No pericardial effusion. There is diffuse hepatic steatosis. The gallbladder is absent. The spleen , pancreas, adrenal glands, and kidneys are normal. There is an anastomosis in the sigmoid colon. The re are changes of appendectomy. There are mildly dilated loops of distal small bowel with transition point in right abdomen. There are no pathologically enlarged lymph nodes. There is no free intraperit moffett fluid. There is mild thoracolumbar spondylosis. IMPRESSION: 1. Mildly dilated small bowel with transition point in right abdomen, consistent with small bowel obs truction. Reviewed, dictated and finalized at location A. IMPRESSION: 1. Mildly dilated small bowel with transition point in right abdomen, consisten t with small bowel obstruction.
--- NOTE | ~2020-12-16 | XR_ITS ---
EXAMINATION: XR abdomen/kub 1V DATE: 12/18/2020 05:44 INDICATION: Small bowel obstruction. TECHNIQUE: A supine view of the abdomen on 2 radiographs was obtained. COMPARISON: CT abdomen and pelvis 12/16/2020 FINDINGS: There are no visible dilated loops of small bowel. The colon is normal in caliber. The naso gastric tube tip is in the stomach. There are surgical clips in right upper quadrant. There are suarez es of left-sided hernia repair. IMPRESSION: 1. Nonobstructive bowel gas pattern. Reviewed, dictated and finalized at location A.
--- NOTE | ~2020-12-16 | XR_ITS ---
EXAMINATION: XR abdomen/kub 1V DATE: 12/19/2020 05:53 INDICATION: Small bowel obstruction. TECHNIQUE: A supine view of the abdomen on 2 radiographs was obtained. COMPARISON: Small bowel series 12/18/2020 FINDINGS: There is mildly dilated small bowel in right abdomen. There is oral contrast in the colon, which is normal in caliber. IMPRESSION: 1. Mildly dilated small bowel in right abdomen, consistent with adynamic ileus versus partial small b owel obstruction. Reviewed, dictated and finalized at location A. IMPRESSION: 1. Mildly dilated small bowel in right abdomen, consistent with adynamic ileus versus partial small bowel obstruction.
--- NOTE | ~2020-12-16 | XR_ITS ---
EXAMINATION: XR abdomen NG/feed tube insert DATE: 12/16/2020 23:54 INDICATION: Nasogastric tube placement. TECHNIQUE: An upright view of the abdomen was obtained. COMPARISON: CT abdomen and pelvis 12/16/2020 FINDINGS: The lower abdomen is excluded. There are dilated loops of small bowel in right abdomen. The colon is normal in caliber. Surgical clips in the right upper quadrant are likely from cholecystecto my. The nasogastric tube tip is in the stomach. IMPRESSION: 1. Nasogastric tube tip in the stomach. 2. Mildly dilated small bowel in right abdomen, consistent with small bowel obstruction. Reviewed, dictated and finalized at location A. IMPRESSION: 1. Nasogastric tube tip in the stomach. 2. Mildly dilated small bowel in right abdomen, consistent with small bowel obs truction.
[2020-12-16 20:54] VITALS: BP 141/81; PULSE 91; RESP 16; TEMP 36.4; O2SAT 99
[2020-12-16 21:22] LABS: Basophils Percent Auto 0.4 % (0.2-1.2); Eosinophils Absolute Auto 0.1 K/mm3 (0-0.3); Eosinophils Percent Auto 1.4 % (0-4.4); Hematocrit 41.1 % (42.0-52.0); Hemoglobin 13.5 g/dL (14.0-18.0); Immature Granulocyte Absolute 0.01 K/mm3 (0.00-0.031); Immature Granulocyte Percent A 0.2 % (0-0.5); Lymphocytes Absolute Auto 1.69 K/mm3 (0.9-3.2); Mean Corpuscular HGB Conc 32.8 g/dl (32-36); Mean Corpuscular Hemoglobin 25.9 pg (26-34); Mean Corpuscular Volume 78.9 fl (80-100); Mean Platelet Volume 9.1 fl (7.4-10.4); Monocytes Absolute Auto 0.3 K/mm3 (0.1-0.6); Monocytes Percent Auto 6.2 % (2.6-8.5); Neutrophils Absolute Auto 2.9 K/mm3 (1.3-6.7); Neutrophils Percent Auto 57.8 % (45.5-73.1); Platelet Count Result 237 k/mm3 (150-375); Red Blood Count 5.21 M/mm3 (4.6-6.20); Red Cell Distribution Width 13.7 % (11.5-14.5)
[2020-12-16 21:34] LABS: Alanine Aminotransferase 40 U/L (4-50); Albumin Level 4.4 g/dL (3.5-5.1); Alkaline Phosphatase 79 U/L (38-126); Anion Gap 7 mmol/L (8-16); Aspartate Amino Transferase 41 U/L (17-59); Bilirubin,Total 0.2 mg/dL (0.2-1.3); Blood Urea Nitrogen 12 mg/dL (9-20); Calcium 8.9 mg/dL (8.4-10.2); Carbon Dioxide 30 mmol/L (22-30); Chloride 99 mmol/L (98-107); Estimated CRCL calculation 91 ml/min; Estimated Glomerular Filt Rate > 60; Glucose 249 mg/dL (75-110); Lipase 155 U/L (23-300); Sodium 136 mmol/L (137-145)
[2020-12-16 21:41] LABS: Potassium 4.2 mmol/L (3.4-5.0)
[2020-12-16 22:07] VITALS: BP 136/92; PULSE 86; RESP 18; TEMP 37.1; O2SAT 97
[2020-12-16] MEDS: HYDROmorphone HCL INJ (*CRX) 1 MG/ML SYR IV PUSH ×2 (22:08→23:21)
[2020-12-16] MEDS: DICYCLOMINE HCL INJ 20 MG/2 ML VIAL IM (22:09)
[2020-12-16] MEDS: ONDANSETRON INJ 4 MG/2 ML VIAL IV PUSH ×2 (22:09→23:21)
--- NOTE | 2020-12-16 23:18 | ED.GENADULT ---
HPI - General Adult General Chief complaint: Abdominal Pain Stated complaint: abd pain Time Seen by Provider: 12/16/20 21:03 History of Present Illness HPI narrative: Patient is a 50-year-old gentleman who presents the emergency department chief complaint of abdominal pain nausea and vomiting. Patient reports he has prior history of small bowel obstructions and has had multiple abdominal surgeries in the past where he had a bowel resection due to diverticulitis had appendectomy and Ludmila. Patient states that his last bowel obstruction was approximately 1 year ago and he was seen at another facility. Patient states that today he started having pain in his central abdomen reports it feels just like whenever he had bowel obstructions before in the past patient reports nausea Related Data Home Medications Medication Instructions Recorded Confirmed escitalopram oxalate [Lexapro] 5 mg PO DAILY 05/09/20 08/29/20 metformin 500 mg PO BID 05/09/20 08/29/20 trazodone 50 mg PO HS 05/09/20 08/29/20 empagliflozin [Jardiance] mg 12/16/20 12/16/20 Allergies Allergy/AdvReac Type Severity Reaction Status Date / Time gabapentin Allergy Unknown Verified 12/16/20 20:57 ketorolac [From Toradol] Allergy Unknown Verified 12/16/20 20:57 promethazine [From Phenergan] Allergy Unknown Verified 12/16/20 20:57 zolpidem [From Ambien] AdvReac Other Verified 12/16/20 20:57 [facility] Past Medical History Medical History (Updated 12/16/20 @ 23:54 by Alex Nath MD) Depression Diabetes mellitus Diverticulitis PTSD (post-traumatic stress disorder) Surgical History Surgical History (Updated 08/29/20 @ 17:22 by Virginie King NP) H/O hand surgery History of ankle surgery right History of appendectomy History of colon resection History of Ludmila fundoplication Hx of cholecystectomy Family History Family History Father Heart disease Social History Social History (Updated 08/29/20 @ 17:28 by Virginie King NP) Social History: the patient is engaged. he has a son. He does not have a durable power claim attorney for healthcare poa and he is full code. He denies any alcohol or illicit drug use. 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 Smoking status: Never smoker Alcohol intake: never Substance use: never Gender identity (if verbalized by the patient): Male Spiritual care concerns: No Course Vital Signs Vital signs: Vital Signs Temperature 36.4 C 12/16/20 20:54 Pulse Rate 91 12/16/20 20:54 Respiratory Rate 16 12/16/20 20:54 Blood Pressure 141/81 H 12/16/20 20:54 Pulse Oximetry 99 12/16/20 20:54 Temperature 37.1 C 12/16/20 22:07 Pulse Rate 86 12/16/20 22:07 Respiratory Rate 18 12/16/20 22:07 Blood Pressure 136/92 H 12/16/20 22:07 Pulse Oximetry 97 12/16/20 22:07 Medical Decision Making Vital Signs Vital Signs: Vital Signs Temperature 36.4 C 12/16/20 20:54 Pulse Rate 91 12/16/20 20:54 Respiratory Rate 16 12/16/20 20:54 Blood Pressure 141/81 H 12/16/20 20:54 Pulse Oximetry 99 12/16/20 20:54 Temperature 37.1 C 12/16/20 22:07 Pulse Rate 86 12/16/20 22:07 Respiratory Rate 18 12/16/20 22:07 Blood Pressure 136/92 H 12/16/20 22:07 Pulse Oximetry 97 12/16/20 22:07 Lab Data Result diagrams: 12/16/20 21:16 12/16/20 21:16 Labs: Lab Results 12/16/20 12/16/20 12/16/20 Range/Units 21:16 21:16 23:18 WBC 5.0 (4.5-10.0) K/mm3 RBC 5.21 (4.6-6.20) M/mm3 Hgb 13.5 L (14.0-18.0) g/dL Hct 41.1 L (42.0-52.0) % MCV 78.9 L (80-100) fl MCH 25.9 L (26-34) pg MCHC 32.8 (32-36) g/dl RDW 13.7 (11.5-14.5) % Plt Count 237 (150-375) k/mm3 MPV 9.1 (7.4-10.4) fl Immature Gran % (Auto) 0.2 (0-0.5) % Neut % (Auto) 57.8 (45.5-73.1) % Lymph % (Auto) 34.0 (18.3-44.2) % Moore % (Auto) 6.2 (2.6-
--- NOTE | 2020-12-16 23:20 | PC.NURSE ---
Pt presents to ED with complaints of abdominal pain for the past 3 days. Pt states he has hx of small bowel obstructions x3. Pt admits to nausea and emesis and denies fever, chill, chest pain and sob at this time. Pt rates pain 8/10 at this time. Pt noted to be alert and oriented x4 breathing even and unlabored. Call button and personal items within reach. Advised to press call button for assistance.
[2020-12-16 23:33] LABS: Add Urine Microscopic? YES; Appearance Urine Clear (Clear); Bilirubin Urine Negative (Negative); Blood Urine Negative (Negative); Color Urine Straw (Yellow); Glucose Urine UA 2+ mg/dL (Negative); Ketones Urine Negative (Negative); Leukocyte Esterase Ur Negative LEU/UL (Negative); Nitrate Urine Negative (Negative); Protein Urine Negative (Negative); RBC Urine 0-2 /hpf (0-2); Specific Grav Ur 1.035 (1.001-1.035); Squamous Epithelial Cell Urine Rare /hpf (Few); Urobilinogen Urine Negative mg/dL (<2.0); WBC Urine 0-3 /hpf
--- NOTE | 2020-12-16 23:46 | PC.NURSE ---
NG tube inserted in right nare to depth of 55cm. Pt tolerated procedure well. Pt now resting on cart in its lowest position with call button and personal items within reach.
--- NOTE | 2020-12-16 23:55 | PC.NURSE ---
CXR completed at bedside to verify NG placement.
[2020-12-17] VITALS (8 sets, daily range): BP systolic 132–164; BP diastolic 82–95; PULSE 70–86; RESP 16–22; TEMP 36.4–36.9; O2SAT 93–96; BMI 28.6
--- NOTE | 2020-12-17 00:30 | PC.NURSE ---
Pt resting on cart in its lowest position with call button and personal items within reach. Pt updated on poc and advised that he will be NPO until attending physician decides it is the proper time for NG removal. Pt voices his understanding. Advised to press call button for assistance.
--- NOTE | 2020-12-17 00:54 | PC.NURSE ---
Pt complaining of persistent abdominal pain. EDMD notified of pt complaints of pain and states he will place orders.
[2020-12-17] MEDS: ONDANSETRON INJ 4 MG/2 ML VIAL IV PUSH ×3 (01:02→20:10)
[2020-12-17] MEDS: HYDROmorphone HCL INJ (*CRX) 1 MG/ML SYR IV PUSH ×6 (01:02→20:07)
[2020-12-17] MEDS: SODIUM CHLORIDE 0.9% IV 1,000 ML 125 ML IV CONT (01:08)
--- NOTE | 2020-12-17 01:20 | PC.NURSE ---
Report called to receiving nurseAleta. Ok to send pt to floor.
--- NOTE | 2020-12-17 02:07 | PC.NURSE ---
This patient, Erich Allen, was admitted to Medical Room 251-. Patient/family oriented to hospital policies and general routines including ID bracelet, bed and alarms, visiting hours, pain management, procedures, bathroom and other care routines, personal items, smoking policy, room service/diet, and visiting hours. Information on how to activate the Rapid Response Team has been discussed. Patient/Family are encouraged to report perceived risks to care and to ask questions if they do not understand what they are told or what they should do.
--- NOTE | 2020-12-17 02:33 | PM.IMHP ---
H&P: HPI History of Present Illness Date/Time: 12/17/20 02:33 Chief Complaint: Periumbilical abdominal pain Narrative: This is a 50-year-old diabetic male who presented to the hospital with a complaint of periumbilical abdominal pain that started about 3 days ago with associated nausea and vomiting. The patient has had 2 previous episodes of small-bowel obstructions. He is known to have had multiple abdominal surgeries in the past and has been told that he has many adhesions. The patient tells me he has also undergone adhesiolysis surgery. The patient was evaluated emergency room this evening and found to have a small bowel obstruction on CT abdomen pelvis. On further questioning he denies any fever, chills, cough, chest pain, shortness of breath, diarrhea, hematopoiesis, rectal bleeding, or focal neurological deficits. ER provider has consulted general surgery. NG tube was placed in the ER tonight. No other complaints. Review of Systems Review of Systems: All systems reviewed & are unremarkable except as noted in HPI and below PMFSH Past Medical History Medical History Depression Diabetes mellitus Diverticulitis PTSD (post-traumatic stress disorder) Surgical History Surgical History H/O hand surgery History of ankle surgery right History of appendectomy History of colon resection History of Ludmila fundoplication Hx of cholecystectomy Family History Family History Father Heart disease Social History Social History Social History: the patient is engaged. he has a son. He does not have a durable power business attorney for healthcare poa and he is full code. He denies any alcohol or illicit drug use. 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 Smoking status: Never smoker Alcohol intake: never Substance use: never Gender identity (if verbalized by the patient): Male Spiritual care concerns: No Meds Home Medications and Allergies Home Medications Medication Instructions Recorded Confirmed Type escitalopram oxalate [Lexapro] 5 mg PO DAILY 05/09/20 12/17/20 History metformin 500 mg PO BID 05/09/20 12/17/20 History trazodone 50 mg PO HS 05/09/20 12/17/20 History empagliflozin [Jardiance] 10 mg PO DAILY 12/16/20 12/17/20 History Allergies Allergy/AdvReac Type Severity Reaction Status Date / Time gabapentin Allergy Unknown Verified 12/16/20 20:57 ketorolac [From Toradol] Allergy Unknown Verified 12/16/20 20:57 promethazine [From Phenergan] Allergy Unknown Verified 12/16/20 20:57 zolpidem [From Ambien] AdvReac Other Verified 12/16/20 20:57 Vital Signs Vital Signs - 24 hr 12/16/20 20:54 12/16/20 22:07 12/17/20 00:00 Temperature 36.4 C 37.1 C Pulse Rate 91 86 76 Respiratory Rate 16 18 18 Blood Pressure 141/81 H 136/92 H 138/92 H Pulse Oximetry 99 97 95 12/17/20 00:59 12/17/20 01:30 12/17/20 01:44 Temperature 36.4 C Pulse Rate 85 86 84 Respiratory Rate 22 H 16 18 Blood Pressure 149/94 H 141/95 H 164/85 H Pulse Oximetry 94 94 96 Exam Const: General: cooperative, alert, awake and acute distress (Abdominal pain) moderate Nutritional Appearance: well nourished Orientation/consciousness: patient oriented x3 HENMT: Head: normal to inspection General nose exam: Normal external nose present Face and sinus: normal facial exam Mouth: Yes Normal oral and palatal mucosa present and Yes oropharynx normal Eyes: Pupils: Equal, round and reactive pupils present EOM: EOMs intact bilaterally Neck: Neck: supple and no JVD Thyroid: thyroid normal Lymphatic: lymphadenopathy not noted Resp: Effort & Inspection: normal respiratory effort Auscultation: clear to auscultation bilaterally Cardio: Rate: regular rate Rhythm: regular rhythm Heart sounds: no murmu
[2020-12-17] MEDS: MORPHINE SULFATE (*CRX) 4 MG/ML INJ IV PUSH ×3 (02:39→23:25)
[2020-12-17 05:40] LABS: Basophils Percent Auto 0.4 % (0.2-1.2); Eosinophils Absolute Auto 0.1 K/mm3 (0-0.3); Eosinophils Percent Auto 2.2 % (0-4.4); Hematocrit 39.2 % (42.0-52.0); Hemoglobin 12.7 g/dL (14.0-18.0); Immature Granulocyte Absolute 0.01 K/mm3 (0.00-0.031); Immature Granulocyte Percent A 0.2 % (0-0.5); Lymphocytes Absolute Auto 1.85 K/mm3 (0.9-3.2); Lymphocytes Percent Auto 36.6 % (18.3-44.2); Mean Corpuscular HGB Conc 32.4 g/dl (32-36); Mean Corpuscular Hemoglobin 25.7 pg (26-34); Mean Corpuscular Volume 79.2 fl (80-100); Monocytes Absolute Auto 0.4 K/mm3 (0.1-0.6); Monocytes Percent Auto 7.9 % (2.6-8.5); Neutrophils Absolute Auto 2.7 K/mm3 (1.3-6.7); Neutrophils Percent Auto 52.7 % (45.5-73.1); Platelet Count Result 218 k/mm3 (150-375); Red Blood Count 4.95 M/mm3 (4.6-6.20); Red Cell Distribution Width 13.7 % (11.5-14.5); White Blood Count 5.1 K/mm3 (4.5-10.0)
[2020-12-17 05:45] LABS: Anion Gap 7 mmol/L (8-16); Blood Urea Nitrogen 10 mg/dL (9-20); Calcium 8.3 mg/dL (8.4-10.2); Carbon Dioxide 27 mmol/L (22-30); Chloride 103 mmol/L (98-107); Estimated CRCL calculation 91 ml/min; Estimated Glomerular Filt Rate > 60; Glucose 150 mg/dL (75-110); Potassium 3.9 mmol/L (3.4-5.0); Sodium 137 mmol/L (137-145)
[2020-12-17] MEDS: ENOXAPARIN 40 MG/0.4 ML SYRINGE SUB-Q (09:03)
[2020-12-17] MEDS: KCL 40 MEQ/0.9% SOD CHL 1,000 ML 100 ML IV CONT ×2 (09:17→20:11)
--- NOTE | 2020-12-17 11:00 | PM.CNGS ---
Assessment and Plan Assessment and plan (1) Small bowel obstruction: Code(s): K56.609 - Unspecified intestinal obstruction, unspecified as to partial versus complete obstruction Status: Acute Assessment and Plan: CT scan reviewed and discussed with the patient in detail. He has evidence of a small-bowel obstruction. With his significant history of multiple abdominal surgeries, this is likely due to intra-abdominal adhesions. We will initially try to treat this with conservative management. Continue NG tube decompression, bowel rest, IV fluids, and analgesics. The patient is already showing some signs of clinical improvement. We will continue to follow him with serial abdominal exams and daily abdominal x-rays. I discussed with the patient that typically this will resolve with conservative management, but if he does not respond to current treatment he may require exploratory surgery. Thank you for allowing us to see the patient in consultation and we will continue to follow along with you. (2) History of major abdominal surgery: Code(s): Z98.890 - Other specified postprocedural states Status: Acute (3) Diabetes mellitus: Qualifiers: Diabetes mellitus type: type 2 Diabetes mellitus long winder tender insulin use: without intermediate use Diabetes mellitus complication status: without complication Qualified Code(s): E11.9 - Type 2 diabetes mellitus without complications Code(s): E11.9 - Type 2 diabetes mellitus without complications Status: Chronic Additional Plan I have discussed the patient's case and plan of care with Dr. Ken. History of Present Illness Consult details Consult date: 12/17/20 Reason for consult: other (Small-bowel obstruction) Requesting physician: Alex Nath MD Narrative: This is a 50-year-old male with a history of multiple abdominal surgeries and small bowel obstructions in the past. He presented to the emergency department last night with complaints of periumbilical abdominal pain and vomiting. He reports having at least 3 small bowel obstructions in the past, with the most recent episode occurring about 1 year ago. This was treated conservatively at [facility]. He reports having an exploratory laparotomy with adhesiolysis for a small bowel obstruction about 3-4 years ago in [place]. The patient reports an onset of periumbilical abdominal pain 3 days ago that progressively worsened over the weekend. He reports associated bloating, nausea, and vomiting. His symptoms were similar to small bowel obstructions past. Last bowel movement was yesterday morning and very small. Due to the unrelenting pain, he presented to the emergency department overnight for further evaluation. CT scan of the abdomen and pelvis suggested a small-bowel obstruction with transition point in the right abdomen. Labs were unremarkable. The patient was admitted to the hospitalist service. Our service was consulted for the small-bowel obstruction. NG tube was placed and he was made NPO. An abdominal x-ray confirmed placement of the NG tube. The patient is now seen on the medical floor. He reports improvement in his abdominal pain and bloating. He reports still feeling nauseated. He reports flatus this morning. No other complaints at this time. Review of Systems Review of Systems: All systems reviewed & are unremarkable except as noted in HPI and below Constitutional: Constitutional: Reports as per HPI, Reports chills, Denies fatigue and Denies fever(s) Eyes: Eyes: Reports no additional eye complaints and Denies change in vision ENT: Reports system reviewed and no additional complaints, except as documented, Reports Normal hearing present and Denies dizziness Cardiovascular: Cardiovascular: Reports no additional cardiovascular complaints, Denies chest pain, Denies leg edema and Denies dyspnea Respiratory: Respiratory: Reports no additional respiratory complaints, D
--- NOTE | 2020-12-17 12:15 | PM.IMPN ---
Progress Note: A&P Assessment and Plan (1) Small bowel obstruction: Code(s): K56.609 - Unspecified intestinal obstruction, unspecified as to partial versus complete obstruction Status: Acute Assessment and Plan: Likely secondary to adhesions from prior abdominal surgeries. At presentation showed mildly dilated small bowel with transition point in right abdomen consistent with SBO. He reports 8/10 right-sided abdominal pain. General surgery has been consulted and recommendations are appreciated Continue NG tube decompression. NPO diet Continue IV fluid hydration Analgesics and antiemetics available as needed (2) Normocytic anemia: Code(s): D64.9 - Anemia, unspecified Status: Acute Assessment and Plan: Upon review of prior labs, appears to be chronic finding. Hemoglobin is actually improved from prior labs in August 2020. Vital signs are stable. No signs of acute blood loss. Monitor H&H closely. Transfuse as needed with hemoglobin threshold <7.0 (3) Diabetes mellitus: Qualifiers: Diabetes mellitus type: type 2 Diabetes mellitus emt intermediate insulin use: without half-way use Diabetes mellitus complication status: without complication Qualified Code(s): E11.9 - Type 2 diabetes mellitus without complications Code(s): E11.9 - Type 2 diabetes mellitus without complications Status: Chronic Assessment and Plan: Last A1c was 7.8 (08/31/2020). Blood sugars reviewed and are stable. Accu-Cheks q6h, sliding scale insulin coverage, hypoglycemia protocol. Check updated A1c Oral hypoglycemic agents are on hold. (4) Depression: Qualifiers: Depression Type: unspecified Qualified Code(s): F32.9 - Major depressive disorder, single episode, unspecified Code(s): F32.9 - Major depressive disorder, single episode, unspecified Status: Chronic Assessment and Plan: Mood is stable at this time. Resume home medications when no longer NPO. (5) PTSD (post-traumatic stress disorder): Code(s): F43.10 - Post-traumatic stress disorder, unspecified Status: Chronic Assessment and Plan: Resume home medications as above Subjective Date/time seen: 12/17/20 12:15 Interval history: Date of service: 12/17/2020 Erich Allen is a 50 year old male with a history of prior abdominal surgeries and SBO, noninsulin dependent type 2 diabetes mellitus, and PTSD who is seen in follow up for a small bowel obstruction. He is having significant pain today especially in the right side of his abdomen. He rates his pain is 8/10. He feels nauseous but has not vomited since arriving. He reports passing flatus today. No bowel movement. He has sore throat from his NG tube. He also has a headache all over. He denies dizziness or lightheadedness. No shortness of breath, cough, chest pain. Denies fever or chills. Denies urinary symptoms. He reports feeling quite dehydrated and notes that he is not urinating that much despite receiving IV fluids. He has no additional concerns at this time. Review of Systems Review of Systems: All systems reviewed & are unremarkable except as noted in HPI and below Exam Narrative: Exam Narrative: Mr. Allen is a well-nourished, well-appearing 50-year-old male who is lying semi recumbent in bed. He appears uncomfortable and is holding his abdomen. He is in no acute respiratory distress. Neuro: awake, alert and oriented x4, speech clear, no focal neuro deficits noted HEENMT: normocephalic, atraumatic, EOMI, sclerae anicteric, moist oral mucosa, tongue midline, NG tube secure to nare Neck: supple, no lymphadenopathy Respiratory: clear to auscultation bilaterally, nonlabored breathing Cardio: regular rate, regular rhythm with S1-S2 Abdomen: nondistended, absent bowel sounds, soft, tender to palpation of right-sided abdomen, mostly RLQ and denise-umbilical region, no rigidity or guarding
[2020-12-17 12:43] LABS: Glucose Point of Care 155 (65-105)
[2020-12-17 18:45] LABS: Glucose Point of Care 137 (65-105)
[2020-12-17 23:29] LABS: Glucose Point of Care 144 (65-105)
[2020-12-18] MEDS: HYDROmorphone HCL INJ (*CRX) 1 MG/ML SYR IV PUSH ×2 (01:04→20:41)
[2020-12-18] MEDS: MORPHINE SULFATE (*CRX) 2 MG/ML INJ IV PUSH (03:42)
[2020-12-18] MEDS: KCL 40 MEQ/0.9% SOD CHL 1,000 ML 100 ML IV CONT ×2 (05:32→16:23)
[2020-12-18 05:33] LABS: Hematocrit 39.8 % (42.0-52.0); Mean Corpuscular HGB Conc 32.7 g/dl (32-36); Mean Corpuscular Hemoglobin 25.6 pg (26-34); Mean Corpuscular Volume 78.3 fl (80-100); Mean Platelet Volume 8.6 fl (7.4-10.4); Platelet Count Result 215 k/mm3 (150-375); Red Blood Count 5.08 M/mm3 (4.6-6.20); Red Cell Distribution Width 13.2 % (11.5-14.5); White Blood Count 4.1 K/mm3 (4.5-10.0)
[2020-12-18 05:47] LABS: Anion Gap 5 mmol/L (8-16); Blood Urea Nitrogen 7 mg/dL (9-20); Calcium 8.4 mg/dL (8.4-10.2); Carbon Dioxide 31 mmol/L (22-30); Chloride 100 mmol/L (98-107); Estimated CRCL calculation 82 ml/min; Estimated Glomerular Filt Rate > 60; Glucose 131 mg/dL (75-110); Magnesium 1.9 mg/dL (1.6-2.3); Sodium 136 mmol/L (137-145)
[2020-12-18 06:00] VITALS: BP 134/79; PULSE 74; RESP 16; TEMP 36.9; O2SAT 90
[2020-12-18 06:05] LABS: Glucose Point of Care 138 (65-105)
[2020-12-18 06:57] VITALS: O2SAT 91
[2020-12-18 07:22] LABS: Glucose Point of Care 171 (65-105)
[2020-12-18] MEDS: ENOXAPARIN 40 MG/0.4 ML SYRINGE SUB-Q (08:28)
[2020-12-18] MEDS: MORPHINE SULFATE (*CRX) 4 MG/ML INJ IV PUSH ×3 (08:52→16:37)
[2020-12-18] MEDS: ONDANSETRON INJ 4 MG/2 ML VIAL IV PUSH ×3 (08:52→20:39)
--- NOTE | 2020-12-18 09:47 | PM.IMPN ---
Progress Note: A&P Assessment and Plan (1) Small bowel obstruction: Code(s): K56.609 - Unspecified intestinal obstruction, unspecified as to partial versus complete obstruction Status: Acute Assessment and Plan: Likely secondary to adhesions from prior abdominal surgeries. At presentation, CT a/p showed mildly dilated small bowel with transition point in right abdomen consistent with SBO. He reports 7/10 right-sided abdominal pain. Abdominal x-ray today showed nonobstructive bowel gas pattern. General surgery has been consulted and recommendations are appreciated Continue NG tube decompression. NPO diet Planning for upper GI with small bowel series today. Await results. Continue IV fluid hydration Analgesics and antiemetics available as needed (2) Normocytic anemia: Code(s): D64.9 - Anemia, unspecified Status: Acute Assessment and Plan: Upon review of prior labs, appears to be chronic finding. Hemoglobin is actually improved from prior labs in August 2020. Vital signs are stable. No signs of acute blood loss. Monitor H&H closely. Transfuse as needed with hemoglobin threshold <7.0 (3) Diabetes mellitus: Qualifiers: Diabetes mellitus type: type 2 Diabetes mellitus [facility]ci insulin use: without terminal make up operator use Diabetes mellitus complication status: without complication Qualified Code(s): E11.9 - Type 2 diabetes mellitus without complications Code(s): E11.9 - Type 2 diabetes mellitus without complications Status: Chronic Assessment and Plan: A1c is 9.0, which has worsened from his last A1c of 7.8 in August 2020. Blood sugars reviewed and have been fairly well controlled. Accu-Cheks q6h, sliding scale insulin coverage, hypoglycemia protocol. Oral hypoglycemic agents are on hold. He will need to closely monitor glucose as an outpatient and follow up with PCP for further evaluation and possible medication adjustment given increased A1c. (4) Depression: Qualifiers: Depression Type: unspecified Qualified Code(s): F32.9 - Major depressive disorder, single episode, unspecified Code(s): F32.9 - Major depressive disorder, single episode, unspecified Status: Chronic Assessment and Plan: Mood is stable at this time. Resume home medications when no longer NPO. (5) PTSD (post-traumatic stress disorder): Code(s): F43.10 - Post-traumatic stress disorder, unspecified Status: Chronic Assessment and Plan: Resume home medications as above Additional Plan Mild swelling of right forearm secondary to IV. Elevate right extremity and apply warm compress. Monitor clinically. Subjective Date/time seen: 12/18/20 09:47 Interval history: Date of service: 12/18/2020 Erich Allen is a 50 year old male with a history of prior abdominal surgeries and SBO, noninsulin dependent type 2 diabetes mellitus, and PTSD who is seen in follow up for a small bowel obstruction. He seems to be feeling better today. He states his pain is 7/10. His pain was mostly constant on his right-sided abdomen today and he feels that it has distributed evenly throughout his abdomen today. He feels more comfortable resting in bed compared to yesterday. He stated that he felt he was passing flatus more frequently yesterday and this seems to have diminished today. Still no bowel movements. Denies nausea or vomiting today. No fevers, chills, dizziness, lightheadedness, weakness, shortness breath, cough, chest pain, or palpitations. He still has a sore throat from the NG tube but the spray is helping. He complains of mild swelling in his right arm which occurred after his IV infiltrated. Denies warmth, pain, or tenderness. Review of Systems Review of Systems: All systems reviewed & are unremarkable except as noted in HPI and below Exam Narrative: Exam Narrative: Mr. Allen is a well-nourished, well-appearing 50-year-ol
--- NOTE | 2020-12-18 10:57 | PM.PNGS ---
Progress Note: A&P Assessment and Plan (1) Small bowel obstruction: Code(s): K56.609 - Unspecified intestinal obstruction, unspecified as to partial versus complete obstruction Status: Acute Assessment and Plan: Patient clinically improving. Abdominal films this morning show a nonobstructive bowel gas pattern. Will continue NG tube/NPO, and obtain a Gastrografin small bowel follow-through to further assess the obstruction. If contrast goes through to the colon, then we will plan to remove the NG tube and start clear liquids later today. Encouraged increased activity and walking the halls as tolerated. Additional Plan I have discussed the plan of care with Dr. Ken. Subjective Subjective Date/Time Seen: 12/18/20 10:57 Patient reports: no new complaints, feels better, pain is less and flatus Review of Systems Review of Systems: All systems reviewed & are unremarkable except as noted in HPI and below Constitutional: Constitutional: Denies fever(s), Denies headache(s) and Denies weakness Cardiovascular: Cardiovascular: Denies chest pain Respiratory: Respiratory: Denies dyspnea Gastrointestinal: Gastrointestinal: Reports as per HPI and Reports no additional gastrointestinal complaints Exam Const: General: no acute distress, alert and awake Orientation/consciousness: patient oriented x3 Cardio: Rate: regular rate Rhythm: regular rhythm GI: Inspection: non-distended and scar (midline scar from upper abd down just past umbilicus) GI Palp: Yes Soft to palpation, Yes Tenderness to palpation present (GI) (Mild diffuse tenderness, but improved) and No Guarding due to palpation present (GI) Auscultation: Hypoactive bowel sounds present Skin: General skin exam: normal color Neuro: General: moves all extremities and no focal motor deficits Extrem: General: no clubbing, cyanosis or edema Psych: Mental Status: mental status grossly normal Insight: Good insight present (Psych) Judgement: Good judgement present (Psych) Objective Data Vital Signs Vital Signs: Vital Signs - 24 hr 12/17/20 14:00 12/17/20 20:00 12/17/20 21:25 Temperature 97.9 F 98.5 F Pulse Rate 70 78 78 Respiratory Rate 16 16 16 Blood Pressure 132/82 142/86 H Pulse Oximetry 94 93 93 12/18/20 06:00 12/18/20 06:57 Temperature 98.4 F Pulse Rate 74 Respiratory Rate 16 Blood Pressure 134/79 Pulse Oximetry 90 91 Intake/Output Intake/Output: Intake & Output 12/15/20 12/16/20 12/17/20 12/18/20 23:59 23:59 23:59 23:59 Intake Total 1000 1000 Output Total 2550 1000 Balance -1550 0 Meds/Results Medications: Active Medications Generic Name Dose Route Start Last Admin Trade Name Freq PRN Reason Stop Dose Admin Dextrose 12.5 gm 12/17/20 02:33 Dextrose 50% 25 Gm/50 Ml Syringe IV PUSH PRN PRN Hypoglycemia Protocol Enoxaparin Sodium 40 mg 12/17/20 09:00 12/18/20 08:28 Enoxaparin 40 Mg/0.4 Ml Syringe SUB-Q 40 mg DAILY ENDER Administration Glucagon 1 mg 12/17/20 02:33 Glucagon For Inj 1 Mg Vial IM PRN PRN Hypoglycemia Protocol Hydromorphone HCl 1 mg 12/17/20 12:45 12/18/20 01:04 Hydromorphone Hcl Inj (*Crx) 1 Mg/Ml Syr IV PUSH 1 mg Q3H PRN Administration Breakthrough Pain Dextrose 1,000 mls @ 100 mls/hr 12/17/20 02:33 Dextrose 5% 1,000 Ml IVPB PRN PRN Hypoglycemia Protocol Potassium Chloride/Sodium Chloride 1,000 mls @ 100 mls/hr 12/17/20 09:30 12/18/20 05:32 Kcl 40 Meq/Ns IV CONT 100 mls/hr .Q10H ENDER Administration Insulin Aspart 2 - 5 units 12/17/20 06:00 12/18/20 05:38 Insulin Aspart (*Bkc) 100 Units/Ml SUB-Q Not Given Q6HR [facility] Protocol Morphine Sulfate 2 mg 12/17/20 08:47 12/18/20 03:42 Morphine Sulfate (*Crx) 2 Mg/Ml Inj IV PUSH 2 mg Q2H PRN Administration Pain Rated 5 or Less Morphine Sulfate 4 mg 12/17/20 08:47 12/18/20 08:52 Morphine Sulfate (*Crx) 4 Mg/Ml Inj IV
[2020-12-18 14:00] VITALS: BP 133/85; PULSE 81; RESP 20; TEMP 35.8; O2SAT 97
[2020-12-18 16:35] LABS: Glucose Point of Care 180 (65-105)
[2020-12-18 20:20] LABS: Glucose Point of Care 151 (65-105)
[2020-12-18 20:42] VITALS: BP 135/75; PULSE 81; RESP 22; TEMP 36.4; O2SAT 98
[2020-12-18 21:42] VITALS: O2SAT 97
--- NOTE | 2020-12-18 22:57 | PC.NURSE ---
Soraya Pires provided care for patient and documentation from 7 pm to 7:30am, reviewed by Emily Weathers RN
[2020-12-18 23:48] LABS: Glucose Point of Care 153 (65-105)
[2020-12-19] MEDS: HYDROmorphone HCL INJ (*CRX) 1 MG/ML SYR IV PUSH (01:50)
[2020-12-19] MEDS: KCL 40 MEQ/0.9% SOD CHL 1,000 ML 100 ML IV CONT (04:14)
[2020-12-19 05:45] LABS: Hematocrit 39.4 % (42.0-52.0); Hemoglobin 12.9 g/dL (14.0-18.0); Mean Corpuscular HGB Conc 32.7 g/dl (32-36); Mean Corpuscular Hemoglobin 25.7 pg (26-34); Mean Corpuscular Volume 78.5 fl (80-100); Platelet Count Result 207 k/mm3 (150-375); Red Blood Count 5.02 M/mm3 (4.6-6.20); Red Cell Distribution Width 13.4 % (11.5-14.5); White Blood Count 4.2 K/mm3 (4.5-10.0)
[2020-12-19 05:53] LABS: Glucose Point of Care 179 (65-105)
[2020-12-19 05:57] LABS: Anion Gap 6 mmol/L (8-16); Blood Urea Nitrogen 6 mg/dL (9-20); Calcium 8.1 mg/dL (8.4-10.2); Carbon Dioxide 28 mmol/L (22-30); Chloride 98 mmol/L (98-107); Estimated CRCL calculation 91 ml/min; Estimated Glomerular Filt Rate > 60; Glucose 195 mg/dL (75-110); Magnesium 1.8 mg/dL (1.6-2.3); Potassium 4.4 mmol/L (3.4-5.0); Sodium 132 mmol/L (137-145)
[2020-12-19 06:00] VITALS: BP 126/70; PULSE 78; RESP 20; TEMP 36.1; O2SAT 96
--- NOTE | 2020-12-19 07:15 | PM.PNGS ---
Progress Note: A&P Assessment and Plan (1) Small bowel obstruction: Code(s): K56.609 - Unspecified intestinal obstruction, unspecified as to partial versus complete obstruction Status: Acute Assessment and Plan: resolved per upper GI small-bowel follow-through. Advanced to diabetic diet. Can be discharged later today. No surgical follow-up needed. Subjective Subjective Date/Time Seen: 12/19/20 07:15 Patient reports: no new complaints, feels better, tolerating liquids well and bowel movement Review of Systems Review of Systems: All systems reviewed & are unremarkable except as noted in HPI and below Constitutional: Constitutional: Denies headache(s) Gastrointestinal: Gastrointestinal: Reports as per HPI Neurologic: Denies confusion and Denies headache(s) Exam Const: General: comfortable and no acute distress; No confusion Orientation/consciousness: patient oriented x3 and No confusion GI: Inspection: normal to inspection, non-distended and scar GI Palp: Yes Soft to palpation, No Tenderness to palpation present (GI), No Guarding due to palpation present (GI) and No Rebound tenderness present Auscultation: normal bowel sounds Neuro: General: patient oriented x3, no focal motor deficits and No confusion Extrem: General: no calf tenderness and no edema Psych: Affect: normal affect Insight: Good insight present (Psych) Judgement: Good judgement present (Psych) Objective Data Vital Signs Vital Signs: Vital Signs - 24 hr 12/18/20 14:00 12/18/20 20:42 12/18/20 21:42 Temperature 35.8 C L 36.4 C L Pulse Rate 81 81 Respiratory Rate 20 22 H Blood Pressure 133/85 135/75 Pulse Oximetry 97 98 97 12/19/20 06:00 Temperature 36.1 C L Pulse Rate 78 Respiratory Rate 20 Blood Pressure 126/70 Pulse Oximetry 96 Intake/Output Intake/Output: Intake & Output 12/16/20 12/17/20 12/18/20 12/19/20 23:59 23:59 23:59 23:59 Intake Total 1000 2560 1390 Output Total 2550 1550 Balance -1550 1010 1390 Meds/Results Medications: Active Medications Generic Name Dose Route Start Last Admin Trade Name Freq PRN Reason Stop Dose Admin Dextrose 12.5 gm 12/17/20 02:33 Dextrose 50% 25 Gm/50 Ml Syringe IV PUSH PRN PRN Hypoglycemia Protocol Enoxaparin Sodium 40 mg 12/17/20 09:00 12/18/20 08:28 Enoxaparin 40 Mg/0.4 Ml Syringe SUB-Q 40 mg DAILY ENDER Administration Glucagon 1 mg 12/17/20 02:33 Glucagon For Inj 1 Mg Vial IM PRN PRN Hypoglycemia Protocol Hydromorphone HCl 1 mg 12/17/20 12:45 12/19/20 01:50 Hydromorphone Hcl Inj (*Crx) 1 Mg/Ml Syr IV PUSH 1 mg Q3H PRN Administration Breakthrough Pain Dextrose 1,000 mls @ 100 mls/hr 12/17/20 02:33 Dextrose 5% 1,000 Ml IVPB PRN PRN Hypoglycemia Protocol Potassium Chloride/Sodium Chloride 1,000 mls @ 100 mls/hr 12/17/20 09:30 12/19/20 04:14 Kcl 40 Meq/Ns IV CONT 100 mls/hr .Q10H ENDER Administration Insulin Aspart 2 - 5 units 12/17/20 06:00 12/19/20 05:45 Insulin Aspart (*Bkc) 100 Units/Ml SUB-Q Not Given Q6HR [facility] Protocol Morphine Sulfate 2 mg 12/17/20 08:47 12/18/20 03:42 Morphine Sulfate (*Crx) 2 Mg/Ml Inj IV PUSH 2 mg Q2H PRN Administration Pain Rated 5 or Less Morphine Sulfate 4 mg 12/17/20 08:47 12/18/20 16:37 Morphine Sulfate (*Crx) 4 Mg/Ml Inj IV PUSH 4 mg Q2H PRN Administration Pain Rated 6 or Greater Ondansetron HCl 4 mg 12/16/20 23:51 12/18/20 20:39 Ondansetron Inj 4 Mg/2 Ml Vial IV PUSH 4 mg Q4H PRN Administration Nausea Phenol 1 spray 12/17/20 14:32 Phenol/Sod Pheno Rocklin Germain (*Bkc) MUCOUS MEM PRN PRN Sore Throat Radiology Results: ITS Impressions Abdomen/Pelvis CT 12/17/20 07:06 IMPRESSION: 1. Mildly dilated small bowel with transition point in right abdomen, consistent with small bowel obstruction. Upper GI Series 12/18/20 11:31 IMPRE
[2020-12-19] MEDS: ONDANSETRON INJ 4 MG/2 ML VIAL IV PUSH (07:46)
[2020-12-19] MEDS: MORPHINE SULFATE (*CRX) 4 MG/ML INJ IV PUSH (07:46)
--- NOTE | 2020-12-19 11:19 | PC.NURSE ---
Patient continues to c/o abdominal pain and nausea. Notified Hollie KOHLER and Aubree MONTENEGRO that patient continues to request IV pain medications and c/o nausea. Abdomen soft and bowel sounds present in all quadrants. No vomiting noted. Patient ate regular food for breakfast. No new orders received.
[2020-12-19 11:36] LABS: Glucose Point of Care 198 (65-105)
[2020-12-19 14:00] VITALS: BP 132/81; PULSE 68; RESP 16; TEMP 36.1; O2SAT 97
--- NOTE | 2020-12-19 15:24 | PM.DS ---
DS: Admitting Diagnosis Admitting Diagnosis Admitting Diagnosis: Small bowel obstruction DS: Discharge Diagnosis Discharge Diagnosis (1) Small bowel obstruction: Code(s): K56.609 - Unspecified intestinal obstruction, unspecified as to partial versus complete obstruction Status: Acute Assessment and Plan: Likely secondary to adhesions from prior abdominal surgeries. At presentation, CT a/p showed mildly dilated small bowel with transition point in right abdomen consistent with SBO. He was seen in consultation by general surgery. SBO resolved with conservative management. Upper GI series on 12/18 showed normal transit time of 1 hour. Diet was slowly advanced and he was able to tolerate a regular, diabetic diet. (2) Normocytic anemia: Code(s): D64.9 - Anemia, unspecified Status: Acute Assessment and Plan: Chronic upon review of prior labs. Hemoglobin and hematocrit remained stable and consistent with baseline. Vital signs were stable and he had no signs of blood loss. (3) Diabetes mellitus: Qualifiers: Diabetes mellitus type: type 2 Diabetes mellitus [facility] insulin use: without [facility] use Diabetes mellitus complication status: without complication Qualified Code(s): E11.9 - Type 2 diabetes mellitus without complications Code(s): E11.9 - Type 2 diabetes mellitus without complications Status: Chronic Assessment and Plan: A1c is 9.0, which increased from his last A1c of 7.8 in August 2020. Blood sugars were monitored during stay. Covered with sliding scale insulin. Oral hypoglycemic agents were held as he was NPO for most of stay but resumed upon discharge. He will need to closely monitor glucose as an outpatient and follow up with PCP for further evaluation and possible medication adjustment given increased A1c. (4) Depression: Qualifiers: Depression Type: unspecified Qualified Code(s): F32.9 - Major depressive disorder, single episode, unspecified Code(s): F32.9 - Major depressive disorder, single episode, unspecified Status: Chronic Assessment and Plan: Mood is stable at this time. Continue lexapro. (5) PTSD (post-traumatic stress disorder): Code(s): F43.10 - Post-traumatic stress disorder, unspecified Status: Chronic Assessment and Plan: Continue lexapro. DS: Summary Hospital Course Reason for hospitalization: Small-bowel obstruction Hospital Course: Date of admission: 12/16/2020 Date of discharge: 12/19/2020 Erich Allen is a 50 year old male with a history of prior abdominal surgeries and SBO, noninsulin dependent type 2 diabetes mellitus, and PTSD who presented to the emergency department on 12/16/2020 with complaints of abdominal pain, nausea, vomiting ongoing for 3 days. Upon presentation to the emergency department, his blood pressure was mildly elevated additional vital signs stable, he was afebrile, H&H slightly decreased with normal WBC and platelet count, glucose was elevated, electrolytes were stable, the abdominal x-ray showed mildly dilated small bowel and right abdomen, consistent with SBO, and CT abdomen/pelvis showed mildly dilated small bowel transition point in right abdomen. He was admitted to the hospitalist service for further evaluation and management and was seen in consultation by General surgery. Please see above for further details. Small-bowel obstruction resolved conservatively. His pain was well controlled and he was able to tolerate a regular diet. He began feeling much better and was eager for discharge home. Given his overall improvement, he was determined to no longer require inpatient care and was felt to be stable for discharge. We discussed worrisome signs and symptoms for which to return and he was educated on his medications. He was discharged in hemodynamically stable condition on 12/19/2020. Status at Discharge Functional status at discharge: indep
== END 2020-12-19 16:05 | disposition home or self-care (01) | DRG 390 ==
LOC: ANHED 23:54 → ANH2MED 12-17 01:24
PROVIDERS: Physician Assistant; Surgery; Admitting Provider Family Medicine; Emergency Provider Emergency Medicine; PCP Family Medicine; Visit Provider Family Medicine
DX: K56.50 Intestinal adhesions [bands], unspecified as to partial versus complete obstruction (principal); D64.9 Anemia, unspecified; E11.9 Type 2 diabetes mellitus without complications; F32.9 Major depressive disorder, single episode, unspecified; F43.10 Post-traumatic stress disorder, unspecified; Z90.49 Acquired absence of other specified parts of digestive tract
CPT/HCPCS: 36415; 74018; 74177; 74240; 74248; 80048; 80053; 81001; 82948; 83036; 83690; 83735; 85025; 85027; 96372; 96374; 96375; 96376; 99285; A9270; G0378; J0500; J1170; J1650; J2270; J2405; J7030; Q9967

== ENCOUNTER 2020-12-25 23:23 | Inpatient (IN) | payer OTHER, SELFPAY ==
--- NOTE | ~2020-12-25 | XR_ITS ---
EXAMINATION: XR sm bowel follow through DATE: 12/27/2020 11:35 INDICATION: Recurrent small bowel obstruction TECHNIQUE: [employer] radiograph(s) of the abdomen was/were obtained. Oral contrast was administered, and sequential radiographs of the abdomen were obtained. No fluoroscopic images were obtained. The DAP f or this procedure was 175.57 Gycm2. COMPARISON: 12/18/2020 FINDINGS: No definitely dilated loops of bowel are identified on the warehouse distribution specialist radiograph. Cholecystectom y clips are noted. Transit time from the stomach to proximal colon was approximately one hour. The di stal bowel is upper limits of normal in caliber. IMPRESSION: 1. Distal bowel upper limits of normal in caliber without evidence of obstruction. Reviewed, dictated and finalized at location A. IMPRESSION: 1. Distal bowel upper limits of normal in caliber without evidence of obstructi on.
--- NOTE | ~2020-12-25 | CT_ITS ---
EXAMINATION: CT abdomen pelvis w con INDICATION: Lower abdominal pain TECHNIQUE: Computed tomographic images of the abdomen and pelvis were obtained after the administrati on of 100 cc of Omnipaque 350 intravenous contrast. The dose-length product (DLP) was 869.78 mGy-cm. Automated exposure control and iterative reconstruction technique were employed. COMPARISON: 12/16/2020 FINDINGS: Minimal dependent atelectasis is present in the lung bases. The heart size is normal. The g allbladder is surgically absent. The liver is diffusely low in attenuation when compared with the spl een, consistent with hepatic steatosis. The spleen, pancreas, and adrenal glands are normal. The kidn eys are unremarkable. No pathologically enlarged abdominal or pelvic lymph nodes are identified. Ther e is a surgical anastomosis in the sigmoid colon. There is no free intraperitoneal gas. There are mil dly dilated loops of small bowel in the pelvis with a transition point seen in the right lower quadra nt beyond which the bowel is relatively decompressed. There is mild thoracolumbar spondylosis. There is a fat-containing umbilical hernia. IMPRESSION: 1. Mildly dilated small bowel with transition point in the right pelvis, consistent with small bowel obstruction. Reviewed, dictated and finalized at location A. IMPRESSION: 1. Mildly dilated small bowel with transition point in the right pelvis, consis tent with small bowel obstruction.
--- NOTE | ~2020-12-25 | XR_ITS ---
EXAMINATION: XR abdomen obstructive series DATE: 12/26/2020 07:52 INDICATION: Abdominal pain, ileus versus small bowel obstruction TECHNIQUE: Upright and supine views of the abdomen were obtained. COMPARISON: 12/11/[address] from today FINDINGS: There are mildly dilated loops of small bowel in the right lower quadrant. Contrast from ea rlier CT examination is present in the urinary bladder. No free intraperitoneal gas is identified. Ch olecystectomy clips are noted. IMPRESSION: 1. Mildly dilated small bowel in the right lower quadrant, small bowel obstruction CT. Reviewed, dictated and finalized at location A. IMPRESSION: 1. Mildly dilated small bowel in the right lower quadrant, small bowel obstruct ion CT.
--- NOTE | ~2020-12-25 | XR_ITS ---
EXAMINATION: XR abdomen obstructive series DATE: 12/27/2020 06:56 INDICATION: Small bowel obstruction TECHNIQUE: Upright and supine views of the abdomen were obtained. COMPARISON: 12/26/2020 FINDINGS: There is no free intraperitoneal gas. The abdomen is relatively gasless. No definitely dila adelso loops of small bowel are evident. Gas is seen in the rectum. The visualized lung bases are clear. Cholecystectomy clips are noted. IMPRESSION: 1. Relatively gasless abdomen which is nonspecific. Although no dilated small bowel loops are seen, t he previously described bowel loops could now be fluid-filled. Reviewed, dictated and finalized at location A. IMPRESSION: 1. Relatively gasless abdomen which is nonspecific. Although no dilated small b owel loops are seen, the previously described bowel loops could now be fluid-fi lled.
[2020-12-25 23:26] VITALS: BP 139/83; PULSE 98; RESP 18; TEMP 36.7; O2SAT 100
--- NOTE | 2020-12-25 23:45 | ED.GENADULT ---
HPI - General Adult General Chief complaint: Abdominal Pain Stated complaint: Abdominal pain, N/V Time Seen by Provider: 12/25/20 23:32 Source: patient History of Present Illness HPI narrative: Patient is a 50 y/o male complaining of lower abdominal pain starting yesterday. He describes his pain as sharp and rates it as 7/10. He states that eating makes it worse. There is no pain radiation. He has some nausea and vomiting, but no diarrhea. Related Data Home Medications Medication Instructions Recorded Confirmed escitalopram oxalate [Lexapro] 20 mg PO DAILY 05/09/20 12/26/20 metformin 500 mg PO BID 05/09/20 12/26/20 trazodone 50 mg PO HS 05/09/20 12/26/20 Jardiance 25 mg PO DAILY 12/16/20 12/26/20 Allergies Allergy/AdvReac Type Severity Reaction Status Date / Time gabapentin Allergy Unknown Verified 12/26/20 02:35 ketorolac [From Toradol] Allergy Unknown Verified 12/26/20 02:35 promethazine [From Phenergan] Allergy Unknown Verified 12/26/20 02:35 zolpidem [From Ambien] AdvReac Other Verified 12/26/20 02:35 Review of Systems Constitutional: Constitutional: Denies chills, Denies fever(s), Denies headache(s) and Denies weakness Eyes: Eyes: Denies blurry vision ENT: Denies headache(s) and Denies neck pain Cardiovascular: Cardiovascular: Denies chest pain and Denies dyspnea Respiratory: Respiratory: Denies cough and Denies dyspnea Gastrointestinal: Gastrointestinal: Reports abdominal pain, Denies diarrhea, Reports nausea and Reports vomiting Genitourinary: Genitourinary: Denies hematuria and Denies dysuria Musculoskeletal: Musculoskeletal: Denies back pain and Denies neck pain Neurologic: Denies headache(s) and Denies weakness [facility] Past Medical History Medical History Depression Diabetes mellitus Diverticulitis History of small bowel obstruction PTSD (post-traumatic stress disorder) Surgical History Surgical History H/O hand surgery History of ankle surgery right History of appendectomy Laparoscopic appendectomy History of colon resection Sigmoid colon resection for diverticulitis 6-7 years ago in [place] History of exploratory laparotomy Ex lap with adhesiolysis for small bowel obstruction 3-4 years ago in [place]. History of Ludmila fundoplication Laparoscopic Hx of cholecystectomy Laparoscopic cholecystectomy Family History Family History Father Heart disease Social History Social History Social History: the patient is engaged. he has a son. He does not have a durable power civil rights attorney for healthcare poa and he is full code. He denies any alcohol or illicit drug use. 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 Smoking status: Never smoker Alcohol intake: never Substance use: never Substance use type: does not use Gender identity (if verbalized by the patient): Male Spiritual care concerns: No Exam Const: General: no acute distress and well developed Orientation/consciousness: oriented to person, oriented to place, oriented to time and patient oriented x3 HENMT: Head: normocephalic Ears: external ears normal General nose exam: Normal external nose present Eyes: General: appearance normal, both eyes and all related structures Conjunctivae: conjunctivae normal Neck: Neck: normal visual inspection and full ROM Chest: Chest palpation & inspection: normal inspection of the chest and no tenderness Resp: Effort & Inspection: normal respiratory effort Auscultation: clear to auscultation bilaterally Cardio: Rate: regular rate Rhythm: regular rhythm GI: GI Palp: No abdominal tenderness and Yes Soft to palpation Skin: General skin exam: normal color and turgor normal Neuro: General: oriented to person, oriented to place, oriented to
[2020-12-26] VITALS (7 sets, daily range): BP systolic 117–137; BP diastolic 78–86; PULSE 71–79; RESP 16–18; TEMP 36.2–36.6; O2SAT 97–99; BMI 28.3
[2020-12-26 00:03] LABS: Basophils Percent Auto 0.6 % (0.2-1.2); Eosinophils Absolute Auto 0.1 K/mm3 (0-0.3); Eosinophils Percent Auto 1.5 % (0-4.4); Hemoglobin 13.9 g/dL (14.0-18.0); Immature Granulocyte Absolute 0.01 K/mm3 (0.00-0.031); Immature Granulocyte Percent A 0.2 % (0-0.5); Lymphocytes Absolute Auto 1.85 K/mm3 (0.9-3.2); Mean Corpuscular HGB Conc 33.9 g/dl (32-36); Mean Corpuscular Hemoglobin 26.2 pg (26-34); Mean Corpuscular Volume 77.2 fl (80-100); Mean Platelet Volume 9.1 fl (7.4-10.4); Monocytes Absolute Auto 0.4 K/mm3 (0.1-0.6); Monocytes Percent Auto 6.8 % (2.6-8.5); Neutrophils Percent Auto 55.9 % (45.5-73.1); Platelet Count Result 275 k/mm3 (150-375); Red Blood Count 5.31 M/mm3 (4.6-6.20); Red Cell Distribution Width 13.5 % (11.5-14.5); White Blood Count 5.3 K/mm3 (4.5-10.0)
[2020-12-26] MEDS: ONDANSETRON INJ 4 MG/2 ML VIAL IV PUSH ×2 (00:12→18:17)
[2020-12-26] MEDS: SODIUM CHLORIDE 0.9% IV 1,000 ML 999 ML IV CONT (00:13)
[2020-12-26] MEDS: MORPHINE SULFATE (*CRX) 4 MG/ML INJ IV PUSH ×5 (00:13→08:43)
[2020-12-26 00:44] LABS: Alanine Aminotransferase 37 U/L (4-50); Albumin Level 4.5 g/dL (3.5-5.1); Alkaline Phosphatase 73 U/L (38-126); Anion Gap 9 mmol/L (8-16); Aspartate Amino Transferase 39 U/L (17-59); Bilirubin,Total 0.3 mg/dL (0.2-1.3); Blood Urea Nitrogen 10 mg/dL (9-20); Carbon Dioxide 27 mmol/L (22-30); Chloride 100 mmol/L (98-107); Estimated CRCL calculation 82 ml/min; Estimated Glomerular Filt Rate > 60; Glucose 251 mg/dL (75-110); Lipase 315 U/L (23-300); Potassium 3.8 mmol/L (3.4-5.0); Sodium 136 mmol/L (137-145)
--- NOTE | 2020-12-26 02:00 | PC.NURSE ---
This patient, Erich Allen, was admitted to [address] [facility] Surg Room 300-01. Patient/family oriented to hospital policies and general routines including ID bracelet, bed and alarms, visiting hours, pain management, procedures, bathroom and other care routines, personal items, smoking policy, room service/diet, and visiting hours. Information on how to activate the Rapid Response Team has been discussed. Patient/Family are encouraged to report perceived risks to care and to ask questions if they do not understand what they are told or what they should do.
--- NOTE | 2020-12-26 02:20 | ADMGEN ---
This patient, Erich Allen, was admitted to [facility] Surg Room 300-01. Patient/family oriented to hospital policies and general routines including ID bracelet, bed and alarms, visiting hours, pain management, procedures, bathroom and other care routines, personal items, smoking policy, room service/diet, and visiting hours. Information on how to activate the Rapid Response Team has been discussed. Patient/Family are encouraged to report perceived risks to care and to ask questions if they do not understand what they are told or what they should do.
[2020-12-26] MEDS: SODIUM CHLORIDE 0.9% IV 1,000 ML 125 ML IV CONT ×3 (03:03→21:10)
--- NOTE | 2020-12-26 03:06 | PM.IMHP ---
H&P: HPI History of Present Illness Date/Time: 12/26/20 03:06 Chief Complaint: abdominal pain Narrative: Patient is a 50 y/o male who was recently discharged with small bowel obstruction relatd to adhesions, resovled with conservative treatment, back again with right periumbilcal pain, nausea, vomitign that started since yesterday. he rates the pain as sharp and 7/10 in intensity. eating makes it worse. no radiation of pain. no fever, chills. no sob, chest pain. he rpeorts he has been doing softer diet and mostly liquids and has not tried solids at home. he had bowel movement last at 4 pm yesterday evening which was not very much. He is getting admitted for further evaluation and management Review of Systems Review of Systems: Narrative: - CONSTITUTIONAL: Denies weight loss, fever and chills. - HEENT: Denies changes in vision and hearing - RESPIRATORY: Denies SOB and cough. - CV: Denies palpitations and CP. - GI: reporst abdominal pain, nausea, vomiting, no diarrhea - : Denies dysuria and urinary frequency. - MSK: Denies myalgia and joint pain. - SKIN: Denies rash and pruritus. - NEUROLOGICAL: Denies headache and syncope. - PSYCHIATRIC: Denies recent changes in mood. Denies anxiety and depression. All systems reviewed & are unremarkable except as noted in HPI and below Endocrine: Endocrine: Reports fatigue PMFSH Past Medical History Medical History Depression Diabetes mellitus Diverticulitis History of small bowel obstruction PTSD (post-traumatic stress disorder) Surgical History Surgical History H/O hand surgery History of ankle surgery right History of appendectomy Laparoscopic appendectomy History of colon resection Sigmoid colon resection for diverticulitis 6-7 years ago in [place] History of exploratory laparotomy Ex lap with adhesiolysis for small bowel obstruction 3-4 years ago in [place]. History of Ludmila fundoplication Laparoscopic Hx of cholecystectomy Laparoscopic cholecystectomy Family History Family History Father Heart disease Social History Social History Social History: the patient is engaged. he has a son. 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 He denies any alcohol or illicit drug use. 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 Smoking status: Never smoker Alcohol intake: never Substance use: never Substance use type: does not use Gender identity (if verbalized by the patient): Male Spiritual care concerns: No Meds Home Medications and Allergies Home Medications Medication Instructions Recorded Confirmed Type escitalopram oxalate [Lexapro] 20 mg PO DAILY 05/09/20 12/26/20 History metformin 500 mg PO BID 05/09/20 12/26/20 History trazodone 50 mg PO HS 05/09/20 12/26/20 History Jardiance 25 mg PO DAILY 12/16/20 12/26/20 History Allergies Allergy/AdvReac Type Severity Reaction Status Date / Time gabapentin Allergy Unknown Verified 12/26/20 02:35 ketorolac [From Toradol] Allergy Unknown Verified 12/26/20 02:35 promethazine [From Phenergan] Allergy Unknown Verified 12/26/20 02:35 zolpidem [From Ambien] AdvReac Other Verified 12/26/20 02:35 Vital Signs Vital Signs - 24 hr 12/25/20 23:26 12/26/20 01:07 12/26/20 01:53 Temperature 98.1 F Pulse Rate 98 77 79 Respiratory Rate 18 18 18 Blood Pressure 139/83 130/85 129/86 Pulse Oximetry 100 97 98 Exam Narrative: Exam Narrative: GENERAL: The patient is well developed, not in acute distress HEENT: Nonicteric sclerae, PERRLA, EOMI. Oropharynx clear. Moist mucous membranes. Conjunctivae appear well perfused. CHEST: Chest wall is nontender. HEART: Regular rate and rhythm without murmur, rubs, or gallops LUNGS: Clear to auscul
[2020-12-26 06:11] LABS: Hemoglobin A1C 9.2 % (<5.7)
[2020-12-26 06:23] LABS: Anion Gap 3 mmol/L (8-16); Blood Urea Nitrogen 10 mg/dL (9-20); Calcium 8.7 mg/dL (8.4-10.2); Carbon Dioxide 30 mmol/L (22-30); Chloride 102 mmol/L (98-107); Estimated CRCL calculation 91 ml/min; Estimated Glomerular Filt Rate > 60; Glucose 144 mg/dL (75-110); Lipase 113 U/L (23-300); Magnesium 1.7 mg/dL (1.6-2.3); Potassium 3.8 mmol/L (3.4-5.0); Sodium 135 mmol/L (137-145)
[2020-12-26 06:53] LABS: Glucose Point of Care 144 (65-105)
[2020-12-26] MEDS: MAGNESIUM SULF 2 GM/WATER 50ML 2 GM/50 ML BAG IVPB (08:22)
--- NOTE | 2020-12-26 11:01 | PM.CNGS ---
Assessment and Plan Assessment and plan (1) Small bowel obstruction: Code(s): K56.609 - Unspecified intestinal obstruction, unspecified as to partial versus complete obstruction Status: Acute Assessment and Plan: This is the reason for our consultation. The virtual Radiologist reading from overnight of the CT scan suggests this looks more like an ileus, but the Radiologist this morning suggests that this appears more like a small bowel obstruction with transition point in the right pelvis. We will again initiate conservative measures with bowel rest, IV fluids, analgesics, and encourage ambulation/activity. Will defer an NG tube at this time unless patient begins vomiting or clinically worsens. Will switch IV Morphine to IV Dilaudid. Dr. Pires has ordered a dulcolax suppository. Encouraged the patient to walk the halls. Repeat abdominal films tomorrow morning. We will continue to monitor the patient with serial abdominal exams as well. Hopefully, this will again improve with conservative measures, but I discussed with the patient that if he does not progress as expected then he may require exploratory surgery again. Patient understands and all questions were answered. (2) History of major abdominal surgery: Code(s): Z98.890 - Other specified postprocedural states Status: Acute Assessment and Plan: Intra-abdominal adhesions being the most likely cause of #1 above. 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 Pires. History of Present Illness Consult details Consult date: 12/26/20 Reason for consult: other (Possible small bowel obstruction) Requesting physician: Nicol Eagle MD Narrative: This is a 50-year-old male who was recently discharged from [facility] after being hospitalized for a small bowel obstruction. This was treated with NG tube decompression and conservative management, and resolved prior to discharge on 12/19/20. He had a Gastrografin small bowel follow through on 12/18/20 showing normal transit time of contrast to the colon in 1 hour. The patient has a significant history of multiple abdominal surgeries and previous small bowel obstructions. His initial abdominal surgery was a sigmoid colon resection at least 7 years ago while he was in the [place]. Additional surgeries include laparoscopic appendectomy and laparoscopic Ludmila fundoplication. He also had an exploratory laparotomy and adhesiolysis for small bowel obstruction that he now believes was 2.5 years ago. Both his open surgeries were done in [place]. After being discharged a week ago. He states that his bowels were moving daily and he was only eating a very soft diet. On Thursday, 3 days ago, he began feeling poorly again and noticed some bloating and discomfort in his abdomen. He then developed nausea and had 3 episodes of vomiting yesterday. He reports that the abdominal pain he felt before his last hospitalization, returned, but was slightly less severe. Due to this he came to the ER for evaluation. CT scan of the abdomen and pelvis in the ER was initially read by the virtual Radiologist suggesting several fluid-filled small bowel loops in the right lower pelvis consistent with a mild ileus. Our Radiologist has read the CT this morning and suggests mildly dilated small bowel with transition point in the right pelvis, con
[2020-12-26] MEDS: HYDROmorphone HCL INJ (*CRX) 1 MG/ML SYR IV PUSH ×4 (11:41→21:09)
[2020-12-26] MEDS: BISACODYL 10 MG SUPPOSITORY RECTAL (11:46)
[2020-12-26 12:18] LABS: Glucose Point of Care 145 (65-105)
--- NOTE | 2020-12-26 14:10 | PM.IMPN ---
Progress Note: A&P Assessment and Plan (1) Small bowel obstruction: Code(s): K56.609 - Unspecified intestinal obstruction, unspecified as to partial versus complete obstruction Status: Acute Assessment and Plan: Patient recently discharged 12/19/20 after being hospitalized for small-bowel obstruction. He reports he was feeling better after his discharge until yesterday he began to have worsening abdominal pain. Imaging demonstrates mildly dilated small bowel in the right lower quadrant consistent with small-bowel obstruction. Appreciate general surgery recommendations again. He is being treated conservatively. Holding off on NG unless he is worsening or vomiting. No vomiting today, passing flatus. (2) History of major abdominal surgery: Code(s): Z98.890 - Other specified postprocedural states Status: Acute Assessment and Plan: Suspect adhesions contributing to above. (3) Diabetes mellitus: Qualifiers: Diabetes mellitus type: type 2 Diabetes mellitus correction insulin use: without remote computer terminal operator use Diabetes mellitus complication status: without complication Qualified Code(s): E11.9 - Type 2 diabetes mellitus without complications Code(s): E11.9 - Type 2 diabetes mellitus without complications Status: Chronic Assessment and Plan: Hgb A1c 9.2%. Blood sugars are stable today. His home metformin is held. Continue to monitor with accu-cheks and adjust treatment as needed, cover with SSI. (4) Normocytic anemia: Code(s): D64.9 - Anemia, unspecified Status: Acute Assessment and Plan: Chronic based on review of previous labs. Hgb low but stable. No evidence of acute bleeding. Monitor CBC. (5) Depression: Qualifiers: Depression Type: unspecified Qualified Code(s): F32.9 - Major depressive disorder, single episode, unspecified Code(s): F32.9 - Major depressive disorder, single episode, unspecified Status: Chronic Assessment and Plan: Resume his home medications once he has a diet. (6) PTSD (post-traumatic stress disorder): Code(s): F43.10 - Post-traumatic stress disorder, unspecified Status: Chronic Assessment and Plan: Resume home medications once he has a diet. Subjective Date/time seen: 12/26/20 1345 Interval history: Mr. Allen is a 50yo M admitted for small bowel obstruction. He reports feeling a little better at this time. Abdominal pain is improving and he denies nausea or vomiting. Last BM yesterday, passing some gas today. Review of Systems Review of Systems: All systems reviewed & are unremarkable except as noted in HPI and below Exam Narrative: Exam Narrative: General: Male resting comfortably supine in bed in no acute distress. HEENT: Normocephalic, EOMI, oral mucosa moist. Cardiovascular: Rate and rhythm are regular. Respiratory: Lungs clear to auscultation bilaterally. Respirations even and non-labored. Tolerating room air. Abdomen: Soft, nondistended, mild diffuse tenderness to palpation without guarding. Hypoactive bowel sounds. Extremities: Peripheral pulses intact. No edema. Neuro: Awake and alert, answering questions appropriately. No focal neurological deficits. Speech is clear. Objective Data Vital Signs Vital Signs: Last Vital Signs Temp 97.9 F 12/26/20 14:00 Pulse 71 12/26/20 14:00 Resp 16 12/26/20 14:00 BP 117/82 12/26/20 14:00 Pulse Ox 98 12/26/20 14:00 Intake/Output Intake/Output: Intake & Output 12/23/20 12/24/20 12/25/20 12/26/20 23:59 23:59 23:59 23:59 Intake Total 1000 Balance 1000 Meds/Results Medications: Active Medications Generic Name Dose Rou
[2020-12-26 18:28] LABS: Glucose Point of Care 135 (65-105)
[2020-12-27] MEDS: HYDROmorphone HCL INJ (*CRX) 1 MG/ML SYR IV PUSH ×5 (00:01→12:17)
[2020-12-27 00:11] LABS: Glucose Point of Care 135 (65-105)
[2020-12-27 06:00] VITALS: BP 150/88; PULSE 84; RESP 18; TEMP 36.6; O2SAT 96
[2020-12-27] MEDS: SODIUM CHLORIDE 0.9% IV 1,000 ML 125 ML IV CONT (06:09)
[2020-12-27] MEDS: ONDANSETRON INJ 4 MG/2 ML VIAL IV PUSH (06:12)
[2020-12-27 06:18] LABS: Basophils Percent Auto 0.5 % (0.2-1.2); Eosinophils Absolute Auto 0.1 K/mm3 (0-0.3); Eosinophils Percent Auto 2.2 % (0-4.4); Hematocrit 39.4 % (42.0-52.0); Hemoglobin 12.7 g/dL (14.0-18.0); Immature Granulocyte Absolute 0.02 K/mm3 (0.00-0.031); Immature Granulocyte Percent A 0.5 % (0-0.5); Lymphocytes Absolute Auto 1.29 K/mm3 (0.9-3.2); Lymphocytes Percent Auto 31.8 % (18.3-44.2); Mean Corpuscular HGB Conc 32.2 g/dl (32-36); Mean Corpuscular Hemoglobin 25.9 pg (26-34); Mean Corpuscular Volume 80.2 fl (80-100); Mean Platelet Volume 9.1 fl (7.4-10.4); Monocytes Absolute Auto 0.3 K/mm3 (0.1-0.6); Monocytes Percent Auto 7.9 % (2.6-8.5); Neutrophils Absolute Auto 2.3 K/mm3 (1.3-6.7); Neutrophils Percent Auto 57.1 % (45.5-73.1); Platelet Count Result 219 k/mm3 (150-375); Red Blood Count 4.91 M/mm3 (4.6-6.20); Red Cell Distribution Width 13.6 % (11.5-14.5); White Blood Count 4.1 K/mm3 (4.5-10.0)
[2020-12-27 06:25] LABS: Glucose Point of Care 147 (65-105)
[2020-12-27 06:29] LABS: Alanine Aminotransferase 39 U/L (4-50); Albumin Level 3.6 g/dL (3.5-5.1); Alkaline Phosphatase 65 U/L (38-126); Anion Gap 2 mmol/L (8-16); Aspartate Amino Transferase 33 U/L (17-59); Bilirubin,Total 0.3 mg/dL (0.2-1.3); Blood Urea Nitrogen 6 mg/dL (9-20); Calcium 8.2 mg/dL (8.4-10.2); Carbon Dioxide 31 mmol/L (22-30); Chloride 101 mmol/L (98-107); Estimated CRCL calculation 101 ml/min; Estimated Glomerular Filt Rate > 60; Glucose 141 mg/dL (75-110); Potassium 4.1 mmol/L (3.4-5.0); Sodium 134 mmol/L (137-145)
--- NOTE | 2020-12-27 09:41 | PC.NURSE ---
Patient down to xray per wheelchair for small bowel series.
--- NOTE | 2020-12-27 11:37 | PC.NURSE ---
Patient returned from xray.
--- NOTE | 2020-12-27 11:55 | PC.NURSE ---
Patient hiding chewing tobacco in bed. Instructed patient he needed to remain nothing by mouth and that it could be causing more pain as well as I needed to lock it up. Patient stated you will not do that to me. I have chewed since I was 17 years old. If you take it I will leave.
[2020-12-27 12:10] LABS: Glucose Point of Care 144 (65-105)
--- NOTE | 2020-12-27 12:40 | PM.PNGS ---
Progress Note: A&P Assessment and Plan (1) Small bowel obstruction: Code(s): K56.609 - Unspecified intestinal obstruction, unspecified as to partial versus complete obstruction Status: Acute Assessment and Plan: Patient was still having abdominal pain this morning. Gastrografin SBFT was ordered and showed normal transit time to the colon in 1 hour. Bowels are moving following the SBFT, and he is now showing some clinical improvement. Will start a clear liquid diet. Add oral analgesics for pain and try to avoid the IV Dilaudid unless for breakthrough pain. Encouraged increasing activity and walking the halls. Additional Plan I have discussed the plan of care with Dr. Pires. Subjective Subjective Date/Time Seen: 12/27/20 12:40 Patient reports: feels better, pain is less, flatus, bowel movement and nausea Interval history: Patient feeling better today. Gastrografin SBFT was ordered and I am seeing him after this test was completed. Following the contrast, he has had 3 bowel movements and feels his abdominal bloating and pain has improved. Still having some mild nausea, but no vomiting. No other complaints. Exam Const: General: comfortable, no acute distress and alert GI: Inspection: other (mildly distended) GI Palp: Yes Soft to palpation, Yes Tenderness to palpation present (GI) (diffusely tender), No Guarding due to palpation present (GI) and No Rebound tenderness present Auscultation: normal bowel sounds Neuro: General: moves all extremities and no focal motor deficits Extrem: General: no clubbing, cyanosis or edema Psych: Mental Status: mental status grossly normal Insight: Good insight present (Psych) Judgement: Good judgement present (Psych) Objective Data Vital Signs Vital Signs: Vital Signs - 24 hr 12/26/20 14:00 12/26/20 22:00 12/27/20 06:00 Temperature 97.9 F 97.9 F 97.8 F Pulse Rate 71 75 84 Respiratory Rate 16 16 18 Blood Pressure 117/82 129/78 150/88 H Pulse Oximetry 98 97 96 Intake/Output Intake/Output: Intake & Output 12/24/20 12/25/20 12/26/20 12/27/20 23:59 23:59 23:59 23:59 Intake Total 3050 1010 Output Total 600 900 Balance 2450 110 Meds/Results Medications: Active Medications Generic Name Dose Route Start Last Admin Trade Name Freq PRN Reason Stop Dose Admin Acetaminophen 650 mg 12/26/20 03:18 Acetaminophen 325 Mg Tablet PO Q4H PRN Mild Pain (1-3) or Fever Hydrocodone Bitart/Acetaminophen 1 tab 12/27/20 12:39 Hydrocodone/Acetaminophen (*Crx) 5-325 Mg Tablet PO Q4H PRN Pain Rated 4-6 Hydrocodone Bitart/Acetaminophen 1 tab 12/27/20 12:39 Hydrocodone/Acetaminophen (*Crx) 7.5-325 Mg Tablet PO Q4H PRN Pain Rated 7-10 Dextrose 12.5 gm 12/26/20 03:17 Dextrose 50% 25 Gm/50 Ml Syringe IV PUSH PRN PRN Hypoglycemia Protocol Glucagon 1 mg 12/26/20 03:17 Glucagon For Inj 1 Mg Vial IM PRN PRN Hypoglycemia Protocol Glucose 15 gm 12/26/20 03:17 Glucose Oral Gel 15 Gm Of Glucse In 37.5 Gm Tube PO PRN PRN Hypoglycemia Protocol Hydromorphone HCl 0.5 mg 12/26/20 11:18 Hydromorphone Hcl Inj (*Crx) 1 Mg/Ml Syr IV PUSH Q3H PRN Pain Rated 4-6 Hydromorphone HCl 1 mg 12/26/20 11:18 12/27/20 12:17 Hydromorphone Hcl Inj (*Crx) 1 Mg/Ml Syr IV PUSH 1 mg Q3H PRN Administration Pain Rated 7-10 Sodium Chloride 1,000 mls @ 75 mls/hr 12/26/20 01:35 12/27/20 06:09 Normal Saline Iv IV CONT 125 mls/hr .[id number] ENDER Administration Dextrose 1,000 mls @ 100 mls/hr 12/26/20 03:17 Dextrose 5% 1,000 Ml IVPB PRN PRN Hypoglycemia Protocol Insulin Aspart 2 - 5 units 12/26/20 08:00 12/27/20 12:14 Insulin Aspart (*Bkc) 100 Units/Ml SUB-Q Not Given TIDWM ENDER Protocol Nicotine Polacrilex 4 mg 12/27/20 12:38 Nicotine (*Pbkc) 4 Mg Gum PO PRN PRN Nicotine Cravings Ondansetron HCl 4 mg
--- NOTE | 2020-12-27 13:25 | PCDIET ---
Nutrition consult complete. Pt educated on a low fiber diet for one week. Reviewed acceptable foods. Encouraged cooking foods until fork tender, limiting sugars, caffeine, fat and fiber to promote bowel rest. Encouraged pt to consider visceral massage with PT to help with adhesions and scar tissue. Encouraged skilled nursing fiber and protein with meals for blood sugar control. Recommend advancing diet to diabetic diet when appropriate.
--- NOTE | 2020-12-27 13:48 | PM.IMPN ---
Progress Note: A&P Assessment and Plan (1) Small bowel obstruction: Code(s): K56.609 - Unspecified intestinal obstruction, unspecified as to partial versus complete obstruction Status: Acute Assessment and Plan: Patient presented with a small-bowel obstruction but improving with conservative measures -small-bowel follow-through showed a normal transit time and patient is not having bowel movements with improved pain -clear liquids have been started by the surgery team, continue with that and advance as tolerated -no indication for NG tube at this time as the patient is improving but consider placing 1 if the patient has uncontrolled nausea or vomiting (2) History of major abdominal surgery: Code(s): Z98.890 - Other specified postprocedural states Status: Acute Assessment and Plan: Suspect adhesions contributing to above. (3) Diabetes mellitus: Qualifiers: Diabetes mellitus type: type 2 Diabetes mellitus retirement insulin use: without retirement use Diabetes mellitus complication status: without complication Qualified Code(s): E11.9 - Type 2 diabetes mellitus without complications Code(s): E11.9 - Type 2 diabetes mellitus without complications Status: Chronic Assessment and Plan: Last glucose 144 -continue sliding scale insulin a -Hgb A1c 9.2%. Blood sugars are stable today. His home metformin is held. Continue to monitor with accu-cheks and adjust treatment as needed, cover with SSI. (4) Normocytic anemia: Code(s): D64.9 - Anemia, unspecified Status: Acute Assessment and Plan: Hemoglobin stable 12.7 -Chronic based on review of previous labs. No evidence of acute bleeding. Monitor CBC. (5) Depression: Qualifiers: Depression Type: unspecified Qualified Code(s): F32.9 - Major depressive disorder, single episode, unspecified Code(s): F32.9 - Major depressive disorder, single episode, unspecified Status: Chronic Assessment and Plan: Chronic and controlled -will restart home Lexapro (6) PTSD (post-traumatic stress disorder): Code(s): F43.10 - Post-traumatic stress disorder, unspecified Status: Chronic Time Spent With Patient Time with patient: 25 - 35 minutes Subjective Date/time seen: 12/27/20 13:48 Interval history: Mr. Allen is a 50yo M admitted for small bowel obstruction. Patient was seen today and states he is doing better. He has had some nausea and some vomiting but he says this has improved. He has been started on clear liquids. He rates his pain a 6/10 in the right lower quadrant near the umbilicus. He has been having bowel movements and passing gas. He denies chest pain, shortness of breath, fevers, chills or leg swelling. Review of Systems Review of Systems: All systems reviewed & are unremarkable except as noted in HPI and below Exam Narrative: Exam Narrative: General: Well developed well nourished patient in NAD HEENT: normocephalic Neck: supple Neuro: Alert and oriented x4 CV:RRR Resp:CTA Abd: Soft, non distended. Pain to palpation to the right lower quadrant and umbilicus area. Positive bowel sounds Extremities: No swelling, erythema, or pain to palpation. Objective Data Vital Signs Vital Signs: Vital Signs - 24 hr 12/26/20 14:00 12/26/20 22:00 12/27/20 06:00 Temperature 97.9 F 97.9 F 97.8 F Pulse Rate 71 75 84 Respiratory Rate 16 16 18 Blood Pressure 117/82 129/78 150/88 H Pulse Oximetry 98 97 96 Intake/Output Intake/Output: Intake & Output 12/24/20 12/25/20 12/26/20 12/27/20 23:59 23:59 23:59 23:59 Intake Total 3050 1010 Output Total 600 900 Balance 2450 110 Meds/Results Medications: Active Medications Generic Name Dose Route Start Last Admin Trade Name Freq PRN Reason Stop Dose Admin Acetaminophen 1,000 mg 12/27/20 12:40 Acetaminophen 500 Mg Tablet PO Q6H PRN Mild Pain (1-3) or
[2020-12-27 14:00] VITALS: BP 130/76; PULSE 80; RESP 18; TEMP 36.7; O2SAT 98
[2020-12-27] MEDS: HYDROcodone/acetaminophen (*CRX) 7.5-325 MG TABLET 1 TAB PO ×2 (14:25→21:01)
[2020-12-27] MEDS: NICOTINE (*PBKC) 4 MG GUM PO ×2 (14:26→21:02)
[2020-12-27] MEDS: SODIUM CHLORIDE 0.9% IV 1,000 ML 75 ML IV CONT (15:33)
[2020-12-27 17:12] LABS: Glucose Point of Care 172 (65-105)
[2020-12-27] MEDS: traZODone HCL 50 MG TABLET PO (20:56)
[2020-12-27 22:00] VITALS: BP 140/80; PULSE 73; RESP 16; TEMP 36.6; O2SAT 99
[2020-12-27 22:31] LABS: Glucose Point of Care 132 (65-105)
[2020-12-28] MEDS: SODIUM CHLORIDE 0.9% IV 1,000 ML 75 ML IV CONT (03:51)
[2020-12-28 06:00] VITALS: BP 122/82; PULSE 80; RESP 16; TEMP 36.5; O2SAT 97
[2020-12-28] MEDS: HYDROcodone/acetaminophen (*CRX) 7.5-325 MG TABLET 1 TAB PO ×2 (06:01→22:57)
[2020-12-28 06:19] LABS: Hemoglobin 13.3 g/dL (14.0-18.0); Mean Corpuscular HGB Conc 32.4 g/dl (32-36); Mean Corpuscular Hemoglobin 25.6 pg (26-34); Platelet Count Result 224 k/mm3 (150-375); Red Blood Count 5.19 M/mm3 (4.6-6.20); Red Cell Distribution Width 13.5 % (11.5-14.5)
[2020-12-28 06:30] LABS: Anion Gap 5 mmol/L (8-16); Blood Urea Nitrogen 5 mg/dL (9-20); Calcium 8.7 mg/dL (8.4-10.2); Carbon Dioxide 29 mmol/L (22-30); Chloride 102 mmol/L (98-107); Estimated CRCL calculation 91 ml/min; Estimated Glomerular Filt Rate > 60; Glucose 119 mg/dL (75-110); Potassium 3.7 mmol/L (3.4-5.0); Sodium 136 mmol/L (137-145)
[2020-12-28 07:46] LABS: Glucose Point of Care 125 (65-105)
[2020-12-28] MEDS: ESCITALOPRAM OXALATE 10 MG TABLET 20 MG PO (08:27)
--- NOTE | 2020-12-28 10:58 | PM.PNGS ---
Progress Note: A&P Assessment and Plan (1) Small bowel obstruction: Code(s): K56.609 - Unspecified intestinal obstruction, unspecified as to partial versus complete obstruction Status: Acute Assessment and Plan: Patient was still having someabdominal pain this morning, but is improved. Gastrografin SBFT showed normal transit time to the colon in 1 hour when done yesterday. Bowels are moving following the SBFT, and he is now showing clinical improvement. Will advanced to a full liquid diet and allow the staff to advance him to carbohydrate controlled low-fiber diet which is what he will go home on.. Add oral analgesics for pain and try to avoid the IV Dilaudid unless for breakthrough pain (Dilaudid DC this date). Encouraged increasing activity and walking the halls. long discussion with the patient regarding avoidance of problems for this in the future which included limited fiber diet for least the next 2 weeks. I will follow him up in the office for 1 visit in about 7-10 days to give further counseling regarding this. Please see the instructions entered under discharge for his regimen for the next 2-4 weeks. Encourage patient to follow-up with PCP to control diabetes even more closely. Additional Plan I have discussed the plan of care with the hospitalist team. Patient states he has had a colonoscopy done within the last 1-2 years. Will try to get copies of the results of this. Apparently this was done at [facility] in [facility] by a Dr. Weston. As far as he remembers it was normal. Okay with discharge either late today or tomorrow after breakfast depending on the wishes of hospitalist team. I Will not ask my coverage to see the patient if he is still here tomorrow. If there are problems please call us (Dr. Ken information technology associate). Subjective Subjective Date/Time Seen: 12/28/20 10:58 patient is feeling better today. Less pain. He took oral pain medicine for the pain at about 6:00 a.m. this morning. He tried either a clear liquid her full liquid breakfast and has had a couple more bowel movements. He does think he like would like to go home but may be tomorrow morning after breakfast. We will try to advance his diet today see how he does. I had a long discussion with the patient today about trying to avoid future issues with this small-bowel obstruction type picture. Review of Systems Review of Systems: All systems reviewed & are unremarkable except as noted in HPI and below Constitutional: Constitutional: Reports as per HPI, Denies chills, Denies fatigue and Denies fever(s) Eyes: Eyes: Reports no additional eye complaints and Denies change in vision ENT: Reports system reviewed and no additional complaints, except as documented and Denies dizziness Comments: Did discuss his habit of chewing tobacco. I encouraged him to try to quit this of possible specially in view of long-term risks of had neck cancer and esophageal cancer. Cardiovascular: Cardiovascular: Reports no additional cardiovascular complaints, Denies chest pain, Denies leg edema and Denies dyspnea Respiratory: Respiratory: Reports no additional respiratory complaints, Denies cough and Denies dyspnea Gastrointestinal: Gastrointestinal: Reports as per HPI and Reports abdominal pain ( Now this mild, still in the right lower quadrant.) Comments: He has had a couple more bowel movements overnight. Genitourinary: Genitourinary: Denies hematuria and Denies dysuria Musculoskeletal: Musculoskeletal: Denies abnormal gait, Denies deformity, Denies joint swelling, Denies numbness and Denies tingling Integumentary/Breasts: Skin/Breast: Denies wounds Neurologic: Reports system reviewed and no additional complaints, except as documented, Denies abnormal gait, Denies dizziness, Denies focal weakness, Denies numbness and Denies tingling Psychiatric: Psychiatric: Denies anxiety and Denies depression Endocrine: Endocrine: Denies fatigue Exam Const: General
[2020-12-28 11:39] LABS: Glucose Point of Care 123 (65-105)
--- NOTE | 2020-12-28 12:53 | PM.IMPN ---
Progress Note: A&P Assessment and Plan (1) Small bowel obstruction: Code(s): K56.609 - Unspecified intestinal obstruction, unspecified as to partial versus complete obstruction Status: Acute Assessment and Plan: Patient presented with a small-bowel obstruction but improving with conservative measures -small-bowel follow-through 12/27/20 showed a normal transit time and patient is not having bowel movements with improved pain -pt has been tolerating liquids -Plan to advance diet and if pt continues to improve, he will be discharged home tomorrow AM. (2) History of major abdominal surgery: Code(s): Z98.890 - Other specified postprocedural states Status: Acute Assessment and Plan: Suspect adhesions contributing to above. 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 Blood sugars are stable today. His home metformin is held. Continue to monitor with accu-cheks and adjust treatment as needed, cover with SSI. (4) Normocytic anemia: Code(s): D64.9 - Anemia, unspecified Status: Acute Assessment and Plan: Hemoglobin stable 13.3 -Chronic based on review of previous labs. No evidence of acute bleeding. Monitor CBC. (5) Depression: Qualifiers: Depression Type: unspecified Qualified Code(s): F32.9 - Major depressive disorder, single episode, unspecified Code(s): F32.9 - Major depressive disorder, single episode, unspecified Status: Chronic Assessment and Plan: Chronic and controlled -continue home Lexapro (6) PTSD (post-traumatic stress disorder): Code(s): F43.10 - Post-traumatic stress disorder, unspecified Status: Chronic Assessment and Plan: Continue lexapro (7) Leukopenia: Code(s): D72.819 - Decreased white blood cell count, unspecified Status: Acute Assessment and Plan: Pt has a hx of this in the past that worsens when he is ill. No viral infection suspected -plan to monitor and consider re-drawing outpt when acute illness has resolved to ensure improvement Subjective Date/time seen: 12/28/20 12:53 Interval history: Mr. Allen is a 50yo M admitted for small bowel obstruction. Patient was seen today and states he is doing better. He had some full liquids with no nausea, vomiting or abdominal pain. He is passing gas and had a bowel movement earlier this morning. He denies chest pain, shortness of breath, fevers, chills or leg swelling. Exam Narrative: Exam Narrative: General: Well developed well nourished patient in NAD HEENT: normocephalic Neck: supple Neuro: Alert and oriented x4 CV:RRR Resp:CTA Abd: Soft, non distended. Pain to palpation to the right lower quadrant. Positive bowel sounds Extremities: No swelling, erythema, or pain to palpation. Objective Data Vital Signs Vital Signs: Vital Signs - 24 hr 12/27/20 14:00 12/27/20 22:00 12/28/20 06:00 Temperature 98.0 F 98 F 97.7 F Pulse Rate 80 73 80 Respiratory Rate 18 16 16 Blood Pressure 130/76 140/80 122/82 Pulse Oximetry 98 99 97 Intake/Output Intake/Output: Intake & Output 12/25/20 12/26/20 12/27/20 12/28/20 23:59 23:59 23:59 23:59 Intake Total 3050 2750 1680 Output Total 600 900 800 Balance 2450 1850 880 Meds/Results Medications: Active Medications Generic Name Dose Route Start Last Admin Trade Name Freq PRN Reason Stop Dose Admin Acetaminophen 1,000 mg 12/27/20 12:40 Acetaminophen 500 Mg Tablet PO Q6H PRN Mild Pain (1-3) or Fever
[2020-12-28 14:00] VITALS: BP 138/78; PULSE 88; RESP 16; TEMP 36.9; O2SAT 100
[2020-12-28 15:24] LABS: Glucose Point of Care 173 (65-105)
[2020-12-28] MEDS: HYDROcodone/acetaminophen (*CRX) 5-325 MG TABLET 1 TAB PO (17:00)
[2020-12-28] MEDS: traZODone HCL 50 MG TABLET PO (20:52)
[2020-12-28 21:03] LABS: Glucose Point of Care 267 (65-105)
[2020-12-28 22:00] VITALS: BP 126/84; PULSE 89; RESP 20; TEMP 36.4; O2SAT 99
[2020-12-29 05:59] LABS: Basophils Percent Auto 0.5 % (0.2-1.2); Eosinophils Absolute Auto 0.1 K/mm3 (0-0.3); Eosinophils Percent Auto 2.3 % (0-4.4); Immature Granulocyte Absolute 0.01 K/mm3 (0.00-0.031); Immature Granulocyte Percent A 0.3 % (0-0.5); Lymphocytes Absolute Auto 1.72 K/mm3 (0.9-3.2); Lymphocytes Percent Auto 44.2 % (18.3-44.2); Mean Corpuscular HGB Conc 32.6 g/dl (32-36); Mean Corpuscular Volume 79.9 fl (80-100); Mean Platelet Volume 9.3 fl (7.4-10.4); Monocytes Absolute Auto 0.4 K/mm3 (0.1-0.6); Monocytes Percent Auto 9.3 % (2.6-8.5); Neutrophils Absolute Auto 1.7 K/mm3 (1.3-6.7); Neutrophils Percent Auto 43.4 % (45.5-73.1); Platelet Count Result 262 k/mm3 (150-375); Red Blood Count 5.38 M/mm3 (4.6-6.20); Red Cell Distribution Width 13.5 % (11.5-14.5); White Blood Count 3.9 K/mm3 (4.5-10.0)
[2020-12-29 06:00] VITALS: BP 115/75; PULSE 78; RESP 20; TEMP 36.4; O2SAT 98
[2020-12-29 06:06] LABS: Potassium 3.8 mmol/L (3.4-5.0)
[2020-12-29 06:16] LABS: Anion Gap 5 mmol/L (8-16); Blood Urea Nitrogen 9 mg/dL (9-20); Calcium 9.3 mg/dL (8.4-10.2); Carbon Dioxide 29 mmol/L (22-30); Chloride 102 mmol/L (98-107); Estimated CRCL calculation 101 ml/min; Estimated Glomerular Filt Rate > 60; Glucose 138 mg/dL (75-110); Sodium 136 mmol/L (137-145)
[2020-12-29 07:52] LABS: Glucose Point of Care 149 (65-105)
[2020-12-29] MEDS: ESCITALOPRAM OXALATE 10 MG TABLET 20 MG PO (08:13)
--- NOTE | 2020-12-29 09:15 | PM.DS ---
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: without watermelon harvesting supervisor use Diabetes mellitus type: type 2 Qualified Code(s): E11.9 - Type 2 diabetes mellitus without complications Code(s): E11.9 - Type 2 diabetes mellitus without complications Status: Chronic (4) Normocytic anemia: Code(s): D64.9 - Anemia, unspecified Status: Acute (5) Depression: Qualifiers: Depression Type: unspecified Qualified Code(s): F32.9 - Major depressive disorder, single episode, unspecified Code(s): F32.9 - Major depressive disorder, single episode, unspecified Status: Chronic (6) PTSD (post-traumatic stress disorder): Code(s): F43.10 - Post-traumatic stress disorder, unspecified Status: Chronic (7) Leukopenia: Code(s): D72.819 - Decreased white blood cell count, unspecified Status: Acute Assessment and Plan: Pt has a hx of this in the past that worsens when he is ill. No viral infection suspected re-draw outpt when acute illness has resolved to ensure improvement DS: Summary Hospital Course Hospital Course: Patient is a 50-year-old male who initially presented to the emergency room for abdominal pain on December 17, 2020 found to have a small-bowel obstruction. He improved on conservative measures and was discharged on 12/19/2020. He went home and initially did better but then started feeling worse and presented back to the emergency room on December 25, 2020 found to have another bowel obstruction. Vitals in the ER were temperature 36.7 ? C, pulse 98, respiratory rate 18, blood pressure 139/83, pulse ox 100 on room air. Initial white blood cell count 5.3, hemoglobin 13.9, hematocrit 41.0, platelets 275. BMP within normal limits with the exception glucose 251. CT of the abdomen pelvis showed mildly dilated small bowel with transition point in the right pelvis consistent with small-bowel obstruction. Patient was admitted to the hospitalist service and treated with conservative measures. This improved his symptoms and the patient did not require any intervention including an NG tube. He underwent a small-bowel follow-through on 12/27/20 which showed distal bowel upper limits of normal in the caliber without evidence of obstruction and a normal transit time. The patient was able to increase his diet slowly and the day of discharge he was tolerating a regular, low-fat diet. The day of discharge he was feeling much better without abdominal pain and ready to go. He I discussed his leukopenia with him and he is going to get a repeat CBC after his acute illness has resolved to ensure this has improved. He was also educated about the worrisome signs and symptoms come back to emergency room for and was discharged in stable condition to follow-up with primary care physician in 1-2 weeks. Status at Discharge Functional status at discharge: independent ambulation Overall status at discharge: patient is back to baseline Time Spent with Patient Time attestation: Total time spent providing and/or coordinating discharge services:34 min Time spent: Greater than 30 minutes Exam Narrative: Exam Narrative: General: Well developed well nourished patient in NAD HEENT: normocephalic Neck: supple Neuro: Alert and oriented x4 CV:RRR Resp:CTA Abd: Soft, non distended. No pain to palpation to the abdomen. Positive bowel sounds Extremities: No swelling, erythema, or pain to palpation.
== END 2020-12-29 09:49 | disposition home or self-care (01) | DRG 390 ==
LOC: ANHED 12-26 00:43 → ANH3MEDSUR 12-26 03:30
PROVIDERS: Physician Assistant; Admitting Provider Internal Medicine; Emergency Provider Emergency Medicine; PCP Family Medicine; Visit Provider Physician Assistant
DX: K56.609 Unspecified intestinal obstruction, unspecified as to partial versus complete obstruction (principal); Z98.890 Other specified postprocedural states; E11.9 Type 2 diabetes mellitus without complications; D64.9 Anemia, unspecified; F32.9 Major depressive disorder, single episode, unspecified; F43.10 Post-traumatic stress disorder, unspecified; D72.819 Decreased white blood cell count, unspecified; Z79.84 Long term (current) use of oral hypoglycemic drugs; Z79.899 Other long term (current) drug therapy
CPT/HCPCS: 36415; 74019; 74177; 74250; 80048; 80053; 82948; 83036; 83690; 83735; 85025; 85027; 96361; 96374; 96375; 96376; 99285; A9270; G0378; J1170; J2270; J2405; J3475; J7030; Q9967

== ENCOUNTER 2021-01-09 15:44 | Inpatient (IN) | payer OTHER, SELFPAY ==
--- NOTE | ~2021-01-09 | XR_ITS ---
EXAMINATION: XR abdomen obstructive series DATE: 01/11/2021 08:43 INDICATION: Small bowel obstruction. TECHNIQUE: Upright and supine views of the abdomen on 3 radiographs were obtained. COMPARISON: Abdomen radiographs 01/10/2021, MRI 01/10/21 FINDINGS: There are no dilated loops of bowel. There is a small volume of stool in the colon. No free intraperitoneal gas. The nasogastric tube tip is in the stomach. Surgical clips in the right upper q uadrant are likely from cholecystectomy. There are surgical clips from left inguinal hernia repair. IMPRESSION: 1. Normal bowel gas pattern. Reviewed, dictated and finalized at location A.
--- NOTE | ~2021-01-09 | XR_ITS ---
EXAMINATION: XR abdomen NG/feed tube insert INDICATION: Nasogastric tube placement TECHNIQUE: Portable AP KUB-NG at 1858 hours COMPARISON: CT from today FINDINGS: The nasogastric tube is in the stomach. There is mild atelectasis of the lung bases. Cholec ystectomy clips are noted. IMPRESSION: 1. Nasogastric tube in the stomach Reviewed, dictated and finalized at location A.
--- NOTE | ~2021-01-09 | CT_ITS ---
EXAMINATION: CT abdomen pelvis w con DATE: 01/09/2021 17:25 INDICATION: Abdominal pain. History of small bowel obstruction. TECHNIQUE: Computed tomography (CT) of the abdomen and pelvis was performed with 100 cc Omnipaque 350 intravenous contrast. Automated exposure control and iterative reconstruction technique were employe d. Exam dose: 813.52 mGy-cm total exam DLP. COMPARISON: 12/26/2020 CT abdomen pelvis noncontrast examination 12/27/2020 small bowel follow-through FINDINGS: There is atelectasis in the right lower lobe. The lung bases are otherwise clear. Normal heart size. No pericardial or pleural effusion. Status post cholecystectomy. Hepatic steatosis. No hepatic, splenic, pancreatic, and adrenal or renal space-occupying mass lesion is noted. No bile duct or pancreatic duct dilatation. No urinary tract c alculus or hydroureteronephrosis. Normal caliber of the abdominal aorta. No intraperitoneal or retroperitoneal or pelvic mass lesion or adenopathy or ascites. The urinary bladder and prostate gland are unremarkable. Postoperative change of the sigmoid colon is a prominent amount of fecal material in the colon but no apparent colonic obstruction. Probable appendectomy. There is fluid distention and thickening of the wall of a segment of the jejunum which measures up to 3 cm diameter, upper limits of normal. There is fluid distention and air-fluid levels of the normal caliber ileum, with suggestion of some soft tissue thickening at the terminal ileum. Consider Crohn's disease; differential diagnosis includes infectious enteritis, mild nonspecific adynamic ileus. No i ntraperitoneal free air. Small fat-containing umbilical hernia. No suspicious osteolytic or osteoblastic lesions. IMPRESSION: Upper limit caliber and soft tissue thickening of jejunal segment in the left midabdomen and soft tissue thickening of the terminal ileum, with nondilated fluid containing ileum. Consider C rohn's disease, infectious enteritis or mild nonspecific adynamic ileus. Status post cholecystectomy Hepatic steatosis Postoperative change of the sigmoid colon Appendectomy Reviewed, dictated and finalized at Location A. Reviewed, dictated and finalized at location B. IMPRESSION: Upper limit caliber and soft tissue thickening of jejunal segment in the left midabdomen and soft tissue thickening of the terminal ileum, with n ondilated fluid containing ileum. Consider Crohn's disease, infectious enteriti s or mild nonspecific adynamic ileus. Status post cholecystectomy Hepatic steatosis Postoperative change of the sigmoid colon Appendectomy
--- NOTE | ~2021-01-09 | MR_ITS ---
EXAMINATION: MR abdomen wo/w con DATE: 01/10/2021 13:29 INDICATION: Abdominal pain. TECHNIQUE: Magnetic resonance imaging (MRI) of the abdomen was performed without and with 18 mL Multi David intravenous contrast. Sequences included coronal T2-weighted FS FSE, coronal and axial FS FIEST A, axial T2-weighted FSE, coronal LAVA-flex, axial STIR FSE, axial DWI, axial dual-echo T1-weighted F SPGR, and axial LAVA. Postcontrast sequences included coronal LAVA-flex and a time course of axial LA VA. COMPARISON: CT abdomen and pelvis 01/09/2021 FINDINGS: There is a 2.5 x 1.5 cm pericardial cyst on the right. The lungs demonstrate mild atelectasis. There is diffuse hepatic steatosis. There are changes of cholecystectomy. The common duct is normal and irvin sures 7 mm. The spleen, pancreas, adrenal glands, and kidneys are normal. There are changes of fundop lication of the stomach. There are no dilated loops of bowel. There are no pathologically enlarged ly mph nodes. There is no free intraperitoneal fluid. IMPRESSION: 1. Diffuse hepatic steatosis. Reviewed, dictated and finalized at location A.
--- NOTE | ~2021-01-09 | XR_ITS ---
EXAMINATION: XR abdomen obstructive series DATE: 01/10/2021 12:48 INDICATION: Abdominal pain. Vomiting. TECHNIQUE: Upright and supine views of the abdomen were obtained. COMPARISON: CT abdomen and pelvis 01/09/2021 FINDINGS: There are no dilated loops of bowel. There is a moderate volume of stool in the colon. No f ree intraperitoneal gas. The nasogastric tube tip is in the stomach. Surgical clips in the right uppe r quadrant are likely from cholecystectomy. There are surgical clips from left inguinal hernia repair . IMPRESSION: 1. Normal bowel gas pattern. Reviewed, dictated and finalized at location A.
[2021-01-09 15:46] VITALS: BP 125/79; PULSE 109; RESP 18; TEMP 36.8; O2SAT 98
[2021-01-09 16:04] LABS: Basophils Percent Auto 0.5 % (0.2-1.2); Eosinophils Absolute Auto 0.1 K/mm3 (0-0.3); Eosinophils Percent Auto 1.1 % (0-4.4); Hematocrit 43.6 % (42.0-52.0); Hemoglobin 14.3 g/dL (14.0-18.0); Immature Granulocyte Absolute 0.01 K/mm3 (0.00-0.031); Immature Granulocyte Percent A 0.2 % (0-0.5); Lymphocytes Percent Auto 38.7 % (18.3-44.2); Mean Corpuscular HGB Conc 32.8 g/dl (32-36); Mean Corpuscular Hemoglobin 25.9 pg (26-34); Mean Platelet Volume 9.3 fl (7.4-10.4); Monocytes Absolute Auto 0.3 K/mm3 (0.1-0.6); Monocytes Percent Auto 5.9 % (2.6-8.5); Neutrophils Absolute Auto 2.4 K/mm3 (1.3-6.7); Neutrophils Percent Auto 53.6 % (45.5-73.1); Platelet Count Result 247 k/mm3 (150-375); Red Blood Count 5.52 M/mm3 (4.6-6.20); White Blood Count 4.4 K/mm3 (4.5-10.0)
[2021-01-09 16:12] LABS: Alanine Aminotransferase 30 U/L (4-50); Albumin Level 4.4 g/dL (3.5-5.1); Alkaline Phosphatase 68 U/L (38-126); Anion Gap 8 mmol/L (8-16); Aspartate Amino Transferase 30 U/L (17-59); Bilirubin,Total 0.2 mg/dL (0.2-1.3); Blood Urea Nitrogen 10 mg/dL (9-20); Calcium 9.2 mg/dL (8.4-10.2); Carbon Dioxide 28 mmol/L (22-30); Chloride 101 mmol/L (98-107); Estimated CRCL calculation 82 ml/min; Estimated Glomerular Filt Rate > 60; Glucose 261 mg/dL (75-110); Lipase 140 U/L (23-300); Sodium 137 mmol/L (137-145)
[2021-01-09 16:45] VITALS: BP 113/85; PULSE 95; RESP 14; O2SAT 93
--- NOTE | 2021-01-09 16:45 | PC.NURSE ---
Pt states he is unable to provide urine sample at this time
--- NOTE | 2021-01-09 16:47 | ED.ABDPAIN ---
HPI - Abdominal Pain General Chief Complaint: Abdominal Pain <MERCEDES Paez - Last Filed: 01/09/21 20:48> Stated Complaint: ABD pain x 5 days <MERCEDES Paez - Last Filed: 01/09/21 20:48> Time Seen by Provider: 01/09/21 16:07 <MERCEDES Paez - Last Filed: 01/09/21 20:48> Source: patient <MERCEDES Paez - Last Filed: 01/09/21 20:48> Mode of arrival: ambulatory <MERCEDES Paez - Last Filed: 01/09/21 20:48> Limitations: no limitations <MERCEDES Paez - Last Filed: 01/09/21 20:48> History of Present Illness HPI narrative: Patient is a 50 year old male who presents complaining of abdominal pain with nausea and vomiting. He reports emesis x 3 today. He reports pain started approximately 5 days ago and has been increasing. He reports no BM x 4-5 days. He reports recent history of small bowel obstruction. <MERCEDES Paez - Last Filed: 01/09/21 20:48> Related Data Home Medications: Home Medications Medication Instructions Recorded Confirmed escitalopram oxalate [Lexapro] 20 mg PO DAILY 05/09/20 12/26/20 metformin 500 mg PO BID 05/09/20 12/26/20 trazodone 50 mg PO HS 05/09/20 12/26/20 Jardiance 25 mg PO DAILY 12/16/20 12/26/20 <MERCEDES Paez - Last Filed: 01/09/21 20:48> Allergies/Adverse Reactions: Allergies Allergy/AdvReac Type Severity Reaction Status Date / Time gabapentin Allergy Unknown Verified 01/09/21 16:47 ketorolac [From Toradol] Allergy Unknown Verified 01/09/21 16:47 promethazine [From Phenergan] Allergy Unknown Verified 01/09/21 16:47 zolpidem [From Ambien] AdvReac Other Verified 01/09/21 16:47 <MERCEDES Paez - Last Filed: 01/09/21 20:48> Review of Systems Review of Systems: Narrative: CONSTITUTIONAL: Denies fever, chills, or sweats. EYES: Denies visual changes, redness, or discharge. ENT: Denies rhinorrhea, congestion, sore throat, or otalgia. CARDIOVASCULAR: Denies chest pain, palpitations, or edema. RESPIRATORY: Denies cough or dyspnea. GASTROINTESTINAL: Reports abdominal pain, nausea and vomiting. Reports constipation. GENITOURINARY: Denies dysuria or hematuria. SKIN: Denies rash or itching. MUSCULOSKELETAL: Denies back pain, joint pain, or myalgia. NEUROLOGIC: Denies headache, numbness, dizziness, or weakness. PSYCHIATRIC: Denies anxiety or depression. <MERCEDES Paez - Last Filed: 01/09/21 20:48> [facility] Past Medical History Medical History: Medical History Depression Diabetes mellitus Diverticulitis History of small bowel obstruction PTSD (post-traumatic stress disorder) <MERCEDES Paez - Last Filed: 01/09/21 20:48> Surgical History Surgical History: Surgical History H/O hand surgery History of ankle surgery right History of appendectomy Laparoscopic appendectomy History of colon resection Sigmoid colon resection for diverticulitis 6-7 years ago in [place] History of exploratory laparotomy Ex lap with adhesiolysis for small bowel obstruction 3-4 years ago in [place]. History of Ludmila fundoplication Laparoscopic Hx of cholecystectomy Laparoscopic cholecystectomy <MERCEDES Paez - Last Filed: 01/09/21 20:48> Family History Family History: Family History Father Heart disease <MERCEDES Paez - Last Filed: 01/09/21 20:48> Social History Social History: Social History Social History: the patient is engaged. he has a son. He does not have a durable power employment law attorney for healthcare poa and he is full code. He denies any alcohol or illicit drug use. 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 Smoking status: Never smoker Alcohol intake: never Substance use: never Substance use t
[2021-01-09] MEDS: MORPHINE SULFATE (*CRX) 4 MG/ML INJ IV PUSH ×3 (17:00→23:55)
[2021-01-09] MEDS: SODIUM CHLORIDE 0.9% IV 1,000 ML 999 ML IV CONT (17:01)
[2021-01-09] MEDS: ONDANSETRON INJ 4 MG/2 ML VIAL IV PUSH ×2 (17:01→18:09)
[2021-01-09] MEDS: MORPHINE SULFATE (*CRX) 2 MG/ML INJ IV PUSH (18:09)
[2021-01-09 18:16] VITALS: BP 123/84; PULSE 87; RESP 14; O2SAT 97
--- NOTE | 2021-01-09 19:19 | PC.NURSE ---
assumed care at this time . Report from Ginny RAMON
[2021-01-09] MEDS: HYDROmorphone HCL INJ (*CRX) 1 MG/ML SYR 0.5 MG IV PUSH (20:18)
[2021-01-09 20:38] LABS: Add Urine Microscopic? YES; Appearance Urine Clear (Clear); Bilirubin Urine Negative (Negative); Blood Urine 1+ (Negative); Color Urine Straw (Yellow); Glucose Urine UA 2+ mg/dL (Negative); Ketones Urine Negative (Negative); Leukocyte Esterase Ur Negative LEU/UL (Negative); Mucus Urine Rare /lpf; Nitrate Urine Negative (Negative); Protein Urine Negative (Negative); RBC Urine 0-2 /hpf (0-2); Urobilinogen Urine Negative mg/dL (<2.0); WBC Urine 0-3 /hpf
[2021-01-09 20:50] VITALS: BP 123/84; PULSE 71; RESP 20; TEMP 36.2; O2SAT 98; BMI 27.8
--- NOTE | 2021-01-09 21:15 | PM.IMHP ---
H&P: HPI History of Present Illness Date/Time: 01/09/21 21:15 Chief Complaint: abdominal pain Narrative: Patient is a 50 year old male who presents complaining of abdominal pain with nausea and vomiting since past 4-5 days now. he has recurrent sbo and was here few weeks back as well. he denies having any bm or flatus since past 4-5 days. he has been throwing up as well, so far he had thrown up 6 tmies. no fever, chills. CT [place] done tin the ed showed: There is atelectasis in the right lower lobe. The lung bases are otherwise clear. Normal heart size. No pericardial or pleural effusion. Status post cholecystectomy. Hepatic steatosis. No hepatic, splenic, pancreatic, and adrenal or renal space-occupying mass lesion is noted. No bile duct or pancreatic duct dilatation. No urinary tract calculus or hydroureteronephrosis. Normal caliber of the abdominal aorta. No intraperitoneal or retroperitoneal or pelvic mass lesion or adenopathy or ascites. The urinary bladder and prostate gland are unremarkable. Postoperative change of the sigmoid colon is a prominent amount of fecal material in the colon but no apparent colonic obstruction. Probable appendectomy. There is fluid distention and thickening of the wall of a segment of the jejunum which measures up to 3 cm diameter, upper limits of normal. There is fluid distention and air-fluid levels of the normal caliber ileum, with suggestion of some soft tissue thickening at the terminal ileum. Consider Crohn's disease; differential diagnosis includes infectious enteritis, mild nonspecific adynamic ileus. No intraperitoneal free air. Small fat-containing umbilical hernia. No suspicious osteolytic or osteoblastic lesions. IMPRESSION: Upper limit caliber and soft tissue thickening of jejunal segment in the left midabdomen and soft tissue thickening of the terminal ileum, with nondilated fluid containing ileum. Consider Crohn's disease, infectious enteritis or mild nonspecific adynamic ileus. Status post cholecystectomy Hepatic steatosis Postoperative change of the sigmoid colon Appendectomy Review of Systems Review of Systems: Narrative: - CONSTITUTIONAL: Denies weight loss, fever and chills. - HEENT: Denies changes in vision and hearing - RESPIRATORY: Denies SOB and cough. - CV: Denies palpitations and CP. - GI: reports abdominal pain, nausea, vomiting and denies diarrhea. - : Denies dysuria and urinary frequency. - MSK: Denies myalgia and joint pain. - SKIN: Denies rash and pruritus. - NEUROLOGICAL: Denies headache and syncope. - PSYCHIATRIC: Denies recent changes in mood. Denies anxiety and depression. All systems reviewed & are unremarkable except as noted in HPI and below Constitutional: Constitutional: Reports fatigue and Reports weakness Neurologic: Reports weakness Endocrine: Endocrine: Reports fatigue [facility] Past Medical History Medical History Depression Diabetes mellitus Diverticulitis History of small bowel obstruction PTSD (post-traumatic stress disorder) Surgical History Surgical History H/O hand surgery History of ankle surgery right History of appendectomy Laparoscopic appendectomy History of colon resection Sigmoid colon resection for diverticulitis 6-7 years ago in [place] History of exploratory laparotomy Ex lap with adhesiolysis for small bowel obstruction 3-4 years ago in [place]. History of Ludmila fundoplication Laparoscopic Hx of cholecystectomy Laparoscopic cholecystectomy Family History Family History Father Heart disease Social History Social History Social History: the patient is engaged. he has a son. 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 He denies any alcohol or illicit usha
[2021-01-09] MEDS: SODIUM CHLORIDE 0.9% IV 1,000 ML 125 ML IV CONT (21:18)
[2021-01-09 22:00] VITALS: BP 126/82; PULSE 73; RESP 20; TEMP 36.6; O2SAT 98
[2021-01-09 23:01] LABS: Glucose Point of Care 125 mg/dl (65-105)
[2021-01-10] MEDS: MORPHINE SULFATE (*CRX) 4 MG/ML INJ IV PUSH ×8 (02:25→23:54)
[2021-01-10] MEDS: SODIUM CHLORIDE 0.9% IV 1,000 ML 125 ML IV CONT ×2 (05:21→15:55)
[2021-01-10 06:00] VITALS: BP 115/76; PULSE 77; RESP 20; TEMP 36.5; O2SAT 95
[2021-01-10 06:30] LABS: Basophils Percent Auto 0.5 % (0.2-1.2); Eosinophils Absolute Auto 0.1 K/mm3 (0-0.3); Eosinophils Percent Auto 2.3 % (0-4.4); Hematocrit 45.1 % (42.0-52.0); Hemoglobin 14.2 g/dL (14.0-18.0); Immature Granulocyte Absolute 0.02 K/mm3 (0.00-0.031); Immature Granulocyte Percent A 0.3 % (0-0.5); Lymphocytes Absolute Auto 2.38 K/mm3 (0.9-3.2); Lymphocytes Percent Auto 39.9 % (18.3-44.2); Mean Corpuscular HGB Conc 31.5 g/dl (32-36); Mean Corpuscular Hemoglobin 25.5 pg (26-34); Mean Platelet Volume 9.3 fl (7.4-10.4); Monocytes Absolute Auto 0.5 K/mm3 (0.1-0.6); Monocytes Percent Auto 7.9 % (2.6-8.5); Neutrophils Absolute Auto 2.9 K/mm3 (1.3-6.7); Neutrophils Percent Auto 49.1 % (45.5-73.1); Platelet Count Result 233 k/mm3 (150-375); Red Blood Count 5.57 M/mm3 (4.6-6.20); Red Cell Distribution Width 13.8 % (11.5-14.5)
[2021-01-10 06:38] LABS: Alanine Aminotransferase 26 U/L (4-50); Alkaline Phosphatase 62 U/L (38-126); Anion Gap 6 mmol/L (8-16); Aspartate Amino Transferase 26 U/L (17-59); Bilirubin,Total 0.5 mg/dL (0.2-1.3); Blood Urea Nitrogen 9 mg/dL (9-20); Calcium 8.6 mg/dL (8.4-10.2); Carbon Dioxide 30 mmol/L (22-30); Chloride 102 mmol/L (98-107); Estimated CRCL calculation 91 ml/min; Estimated Glomerular Filt Rate > 60; Glucose 105 mg/dL (75-110); Magnesium 1.9 mg/dL (1.6-2.3); Potassium 4.1 mmol/L (3.4-5.0); Sodium 138 mmol/L (137-145)
[2021-01-10 06:39] LABS: Glucose Point of Care 94 mg/dl (65-105)
--- NOTE | 2021-01-10 07:49 | ADMGEN ---
This patient, Erich Allen, was admitted to [facility] Surg Room 310-. Patient/family oriented to hospital policies and general routines including ID bracelet, bed and alarms, visiting hours, pain management, procedures, bathroom and other care routines, personal items, smoking policy, room service/diet, and visiting hours. Information on how to activate the Rapid Response Team has been discussed. Patient/Family are encouraged to report perceived risks to care and to ask questions if they do not understand what they are told or what they should do. Patient arrived at 2049 c/o severe pain r/t ng, and abd cramping. Morphine given with moderately good results. Patient was an excellent certified court/medical interpreter discussing hx of abd surgery and adhesions. He understood hospital policy and call light use.
[2021-01-10 08:22] LABS: Glucose Point of Care 114 mg/dl (65-105)
[2021-01-10 10:05] VITALS: O2SAT 95
--- NOTE | 2021-01-10 10:31 | PM.CNGS ---
Assessment and Plan Assessment and plan (1) Abnormal CT of the abdomen: Code(s): R93.5 - Abnormal findings on diagnostic imaging of other abdominal regions, including retroperitoneum Status: Acute Assessment and Plan: CT scan reviewed and discussed with the patient in detail. There is evidence of soft tissue thickening of a jejunal segment in the left mid abdomen and soft tissue thickening of the terminal ileum, with nondilated fluid containing ileum. The radiologist report suggests a differential of Crohn's disease, infectious enteritis, or a mild adynamic ileus. WBC normal and other labs were unremarkable. We will continue with an NG tube for decompression, bowel rest, analgesics, and IV fluids for now. Dr. Pires will plan on reviewing the CT scan with the radiologist in comparison to his previous CT scans. They will be able to evaluate if this area is similar to the problem areas on his previous hospitalizations. He does have a significant history of abdominal surgeries that would account for intra-abdominal adhesions, although with the wall thickening there is concern for the possibility of another factor playing a role in his recurrent issues. Would agree with GI consultation to evaluate for inflammatory bowel disease. He has had a colonoscopy in the past year by Dr. Garcia at [place]. I will try to see if these records have been requested on previous hospitalizations. There was also a prominent amount of stool in the colon on the CT scan. Will give a Dulcolax suppository today. Will continue to monitor the patient with serial abdominal exams and imaging. Thank you for allowing us to see the patient in consultation and we will continue to follow along with you. (2) Ileus: Code(s): K56.7 - Ileus, unspecified Status: Acute Assessment and Plan: See plan above. (3) History of major abdominal surgery: Code(s): Z98.890 - Other specified postprocedural states Status: Acute (4) Diabetes mellitus: Qualifiers: Diabetes mellitus type: type 2 Diabetes mellitus watermelon inspector insulin use: without jail use Diabetes mellitus complication status: without complication Qualified Code(s): E11.9 - Type 2 diabetes mellitus without complications Code(s): E11.9 - Type 2 diabetes mellitus without complications Status: Chronic (5) PTSD (post-traumatic stress disorder): Code(s): F43.10 - Post-traumatic stress disorder, unspecified Status: Chronic Additional Plan I have discussed the patient's case and plan of care with Dr. Pires. History of Present Illness Consult details Consult date: 01/10/21 Reason for consult: other (CT findings of jejunal and ileal wall thickening with possible adynamic ileus versus enteritis) Requesting physician: Kaykay Jett FNP Narrative: This is a 50-year-old male who is well known to our service due to multiple recent hospitalizations of recurrent partial small-bowel obstructions. The patient has a significant history of multiple abdominal surgeries. His initial abdominal surgery was a colon resection at least 7 years ago while he was in the [place]. Additional surgeries include laparoscopic appendectomy and laparoscopic Ludmila fundoplication. He has also had an exploratory laparotomy and adhesiolysis for a small bowel obstruction that he believes was about 2 and half years ago. Both of his open surgeries were done in [place]. This is his 3rd hospitalization in the last month for similar complaints. Both of his last hospitalizations resulted in the small bowel obstruction resolving with conservative measures and NG tube decompression. He had a small-bowel follow-through on both hospitalizations as well, which showed no evidence of an obstruction. The patient was most recently discharged home on 12/29/2020 and was feeling well at that time. He reports going home and eating a soft diet and tolerating this well. He states his bowels were movin
[2021-01-10 11:49] VITALS: BMI 27.8
[2021-01-10 12:12] LABS: Glucose Point of Care 126 mg/dl (65-105)
--- NOTE | 2021-01-10 13:27 | PM.IMPN ---
Progress Note: A&P Assessment and Plan (1) Ileus: Code(s): K56.7 - Ileus, unspecified Status: Acute Assessment and Plan: X-ray shows a normal bowel gas pattern but the patient continues to have significant abdominal pain -he has not had any flatus or bowel movements -continue NG tube -CT of the abdomen pelvis revealed: Upper limit caliber and soft tissue thickening of jejunal segment in the left midabdomen and soft tissue thickening of the terminal ileum, with nondilated fluid containing ileum. Consider Crohn's disease, infectious enteritis or mild nonspecific adynamic ileus. -patient has had many abdominal surgeries in the past but continues to have these small-bowel obstructions -MRI of the abdomen ordered -per ER note, surgery and GI consulted. I did not see the GI Consul in so I have added that. His last colonoscopy was last year with Dr. Garcia -Continue with conservative measures at this time -patient is having worsening abdominal pain, will add scheduled Tylenol due to uncontrolled pain. await MRI (2) Abdominal pain: Qualifiers: Abdominal location: generalized Qualified Code(s): R10.84 - Generalized abdominal pain Code(s): R10.9 - Unspecified abdominal pain Status: Acute Assessment and Plan: As above (3) History of major abdominal surgery: Code(s): Z98.890 - Other specified postprocedural states Status: Acute Assessment and Plan: As above (4) Diabetes mellitus: Qualifiers: Diabetes mellitus type: type 2 Diabetes mellitus shank paperer insulin use: without shank paperer use Diabetes mellitus complication status: without complication Qualified Code(s): E11.9 - Type 2 diabetes mellitus without complications Code(s): E11.9 - Type 2 diabetes mellitus without complications Status: Chronic Assessment and Plan: Last glucose 126 -Pt NPO at this time -Continue SSI and accuchecks Q6 (5) Depression: Qualifiers: Depression Type: unspecified Qualified Code(s): F32.9 - Major depressive disorder, single episode, unspecified Code(s): F32.9 - Major depressive disorder, single episode, unspecified Status: Chronic Assessment and Plan: Chronic and stable -Will continue lexapro when able to take PO (6) PTSD (post-traumatic stress disorder): Code(s): F43.10 - Post-traumatic stress disorder, unspecified Status: Chronic Assessment and Plan: Chronic -no acut veronica Time Spent With Patient Time with patient: 25 - 35 minutes Subjective Date/time seen: 01/10/21 13:27 Interval history: Pt is a 50-year-old male here for small bowel obstruction. Patient was seen today and is still having significant abdominal pain. He rates the pain 8/10 with sharp pain in the right lower quadrant. When he takes IV pain medication the pain goes down to a 5 for about 15 minutes and then goes right back up. He has had some nausea but no vomiting. He is not passing gas or having bowel movements. He had a lot of questions about his plan of care which I answered to his satisfaction and also deferred some to surgery and GI. Patient states he had a colonoscopy with 1 biopsy in the last year which was reportedly negative. He has no history of IBD that he knows of. Denies chest pain, shortness of breath, fevers, chills, leg swelling, or headaches. Review of Systems Review of Systems: All systems reviewed & are unremarkable except as noted in HPI and below Exam Narrative: Exam Narrative: General: Well developed well nourished patient in NAD HEENT: normocephalic, NG intact Neck: supple Neuro: Alert and oriented x4 CV:RRR Resp:CTA Abd: Soft, non distended. Pain to palpation worse in the right lower quadrant with pain to palpation pretty much throughout the entire abdomen. Infrequent bowel sounds heard in all quadrants. Extremities: No swelling, erythema, or pain to palpation.
[2021-01-10] MEDS: PANTOPRAZOLE SODIUM IV 40 MG VIAL IV PUSH (13:57)
[2021-01-10] MEDS: BISACODYL 10 MG SUPPOSITORY RECTAL (13:57)
[2021-01-10 14:00] VITALS: BP 120/75; PULSE 80; RESP 20; TEMP 36.9; O2SAT 99
[2021-01-10 14:44] LABS: Lactic Acid Reflex 1.1 mmol/L (0.7-2.1)
--- NOTE | 2021-01-10 16:54 | WPDGICN ---
Assessment and Plan Assessment and plan (1) Small bowel obstruction: Code(s): K56.609 - Unspecified intestinal obstruction, unspecified as to partial versus complete obstruction Status: Acute Assessment and Plan: recurrent SBO, last surgery 2 years ago with adhesiolysis when he also presented with SBO recently treated medically and had colonoscopy last year CT showed possible thickening of small bowel, will attempt to do a colonoscopy tomorrow and assess TI (if able to complete bowel prep) to rule out IBD but probably recurrent SBO related to previous abdominal surgeries and adhesions will get also inflammatory markers tomorrow (2) Abdominal pain: Qualifiers: Abdominal location: generalized Qualified Code(s): R10.84 - Generalized abdominal pain Code(s): R10.9 - Unspecified abdominal pain Status: Acute Assessment and Plan: still uncomfortable, pain meds as needed and surgery on board (3) Abnormal CT of the abdomen: Code(s): R93.5 - Abnormal findings on diagnostic imaging of other abdominal regions, including retroperitoneum Status: Acute Assessment and Plan: ct scan reviewed (4) History of major abdominal surgery: Code(s): Z98.890 - Other specified postprocedural states Status: Acute (5) History of colon resection: Code(s): Z90.49 - Acquired absence of other specified parts of digestive tract Status: Inactive Assessment and Plan: because of diverticulitis GI Consult Note Consult date/time: 01/10/21 16:54 Reason for consult: recurrent SBO, abnormal SB by CT scan HPI: Erich Allen is a 50 year old male with history of recurrent SBO. He had partial left colectomy 7 years ago because diverticulitis, then laparoscopic appendectomy and laparoscopic Ludmila fundoplication. Also had exploratory laparotomy and adhesiolysis about 2 years ago after he presented for SBO. Last year he had a colonoscopy by Dr Garcia that apparently was unremarkable per patient. He is here with recurrent abdominal pain, n/v, actually this is his 3rd hospitalization in the last month for similar complaints and previously treated with conservative measures and NG tube decompression. He had a small-bowel follow-through on both hospitalizations as well, which showed no evidence of an obstruction. He returned with similar pain and nausea. CT scan reviewed, there is evidence of soft tissue thickening of a jejunal segment in the left mid abdomen and soft tissue thickening of the terminal ileum, with nondilated fluid containing ileum. The radiologist report suggests a differential of Crohn's disease, infectious enteritis, or a mild adynamic ileus. WBC normal. Surgery on board, treated with NGT decompression and pain meds, still uncomfortable. Review of Systems Constitutional: Constitutional: Denies chills Eyes: Eyes: Reports no additional eye complaints ENT: Reports Normal hearing present Cardiovascular: Cardiovascular: Denies chest pain Respiratory: Respiratory: Denies dyspnea Gastrointestinal: Gastrointestinal: Reports abdominal pain, Reports nausea and Reports vomiting Genitourinary: Genitourinary: Denies dysuria Musculoskeletal: Musculoskeletal: Denies arthralgias Integumentary/Breasts: Skin/Breast: Denies dry skin Neurologic: Reports system reviewed and no additional complaints, except as documented Psychiatric: Psychiatric: Reports no additional psychiatric complaints PMFSH Past Medical History Medical History (Updated 01/10/21 @ 11:06 by MERCEDES Hagan) Depression Diabetes mellitus Diverticulitis History of small bowel obstruction PTSD (post-traumatic stress disorder) Surgical History Surgical History (Updated 01/10/21 @ 17:04 by Lorenzo Massey MD) H/O hand surgery History of ankle surgery right History of appendectomy Laparoscopic appendectomy History of colon resection Sigmoid colon resection for diverticulitis 6-7
[2021-01-10 18:21] LABS: Glucose Point of Care 129 mg/dl (65-105)
[2021-01-10] MEDS: polyethylene glycoL 3350 238 GM BOTTLE PO (18:28)
[2021-01-10 22:00] VITALS: BP 138/81; PULSE 69; RESP 20; TEMP 36.2; O2SAT 98
[2021-01-10 22:12] VITALS: O2SAT 98
[2021-01-11] MEDS: SODIUM CHLORIDE 0.9% IV 1,000 ML 125 ML IV CONT ×3 (00:26→22:19)
[2021-01-11 01:55] LABS: Glucose Point of Care 136 mg/dl (65-105)
[2021-01-11] MEDS: MORPHINE SULFATE (*CRX) 4 MG/ML INJ IV PUSH ×7 (03:53→22:19)
[2021-01-11 04:49] LABS: Glucose Point of Care 115 mg/dl (65-105)
[2021-01-11 06:00] VITALS: BP 141/81; PULSE 72; RESP 20; TEMP 36.1; O2SAT 97
[2021-01-11 06:36] LABS: Hematocrit 39.3 % (42.0-52.0); Hemoglobin 12.8 g/dL (14.0-18.0); Mean Corpuscular HGB Conc 32.6 g/dl (32-36); Mean Corpuscular Hemoglobin 26.1 pg (26-34); Mean Platelet Volume 8.9 fl (7.4-10.4); Platelet Count Result 195 k/mm3 (150-375); Red Blood Count 4.91 M/mm3 (4.6-6.20); Red Cell Distribution Width 13.5 % (11.5-14.5); White Blood Count 3.9 K/mm3 (4.5-10.0)
[2021-01-11 06:48] LABS: Anion Gap 3 mmol/L (8-16); Blood Urea Nitrogen 6 mg/dL (9-20); CRP 0.9 mg/dL (<1.0); Calcium 8.2 mg/dL (8.4-10.2); Carbon Dioxide 30 mmol/L (22-30); Chloride 101 mmol/L (98-107); Estimated CRCL calculation 91 ml/min; Estimated Glomerular Filt Rate > 60; Glucose 114 mg/dL (75-110); Magnesium 1.8 mg/dL (1.6-2.3); Potassium 3.7 mmol/L (3.4-5.0); Sodium 134 mmol/L (137-145)
[2021-01-11 07:43] LABS: Erythrocyte Sedimentation Rate 16 mm/hr (0-20)
[2021-01-11] MEDS: PANTOPRAZOLE SODIUM IV 40 MG VIAL IV PUSH (08:38)
[2021-01-11 08:58] LABS: Glucose Point of Care 133 mg/dl (65-105)
--- NOTE | 2021-01-11 10:39 | PCNFU ---
Nutrition Follow-Up Complete: Altered GI function as related to ileus as evidenced by NPO/NGT Goal: Meet estimated nutritional needs Limited progress towards goal. We will continue current goal. Pt current nutrition is NPO. Last recorded weight is 90.6 kg, no new weight to report. Bowel Motility:+BM reported 01/10 Labs Reviewed:Na 134,Glu 114,BUN 6,Hct 39.3,Hgb 12.8 Meds Noted:Protonix, NS,Morphine,NovoLog. Additional Notes: Nutrition follow up. Patient to have colonoscopy today. NGT in place. Bowels moving. Agree with current diet orders. Recommend advancing diet as tolerated per MD orders. Monitoring: Will monitor every 3 days.
[2021-01-11] MEDS: ONDANSETRON INJ 4 MG/2 ML VIAL IV PUSH (11:18)
--- NOTE | 2021-01-11 11:33 | PM.PNGS ---
Progress Note: A&P Assessment and Plan (1) Abnormal CT of the abdomen: Code(s): R93.5 - Abnormal findings on diagnostic imaging of other abdominal regions, including retroperitoneum Status: Acute Assessment and Plan: CT scan reviewed and discussed with the patient in detail. There is evidence of soft tissue thickening of a jejunal segment in the left mid abdomen and soft tissue thickening of the terminal ileum, with nondilated fluid containing ileum. The radiologist report suggests a differential of Crohn's disease, infectious enteritis, or a mild adynamic ileus. WBC normal and other labs were unremarkable. We will continue with an NG tube for decompression, bowel rest, analgesics, and IV fluids for now. They will be able to evaluate if this area is similar to the problem areas on his previous hospitalizations. He does have a significant history of abdominal surgeries that would account for intra-abdominal adhesions, although with the wall thickening there is concern for the possibility of another factor playing a role in his recurrent issues. Would agree with GI consultation , and we appreciate Dr. Ovalle input, to evaluate for inflammatory bowel disease. He has had a colonoscopy in the past year by Dr. Garcia at [place]. I will try to see if these records have been requested on previous hospitalizations ( not yet recieved). There was also a prominent amount of stool in the colon on the CT scan. The patient has had a partial small-bowel obstruction in the past but tolerated his attempt at bowel prep through his NG tube last night. This is continuing in order to try to get him clean for a colonoscopy today. I am off the weekend but will transmit his situation to Dr. Jin who will cover over this weekend in into next week. Thank you for allowing us to see the patient in consultation and we will continue to follow along with you. (2) Ileus: Code(s): K56.7 - Ileus, unspecified Status: Acute Assessment and Plan: See plan above. Appears to be resolving as he is tolerating his prep in has had several loose stools. (3) History of major abdominal surgery: Code(s): Z98.890 - Other specified postprocedural states Status: Acute (4) Diabetes mellitus: Qualifiers: Diabetes mellitus type: type 2 Diabetes mellitus custodial insulin use: without custodial use Diabetes mellitus complication status: without complication Qualified Code(s): E11.9 - Type 2 diabetes mellitus without complications Code(s): E11.9 - Type 2 diabetes mellitus without complications Status: Chronic Assessment and Plan: As per hospitalist notes. One could question whether his abdominal pain and ileus is related to the Jardiance and could consider trying a different medication for this if so it seems to be reasonable. (5) PTSD (post-traumatic stress disorder): Code(s): F43.10 - Post-traumatic stress disorder, unspecified Status: Chronic Additional Plan Pull NG and with dark clear liquids tonight after colonoscopy is done. Subjective Subjective Date/Time Seen: 01/11/21 11:33 Patient lying in bed when I entered the room. Still has some mild abdominal discomfort across the mid abdomen. He has had his NG tube clamped overnight and bowel prep passed through the NG. He has only had to loose stools overnight cord to the patient but nurse states he has had 3. Plan for today is to have colonoscopy sometime this afternoon if he gets clean. Dr. Ovalle will try to get the to the terminal ileum and do some biopsies to rule out Crohn's disease. I let the nurse know and the patient that after his colonoscopy if he has gotten cleaned out and did okay he could have the NG out and begin clear liquids. Review of Systems Review of Systems: All systems reviewed & are unremarkable except as noted in HPI and below Constitutional: Constitutional: Reports as per HPI, Redd Bui
[2021-01-11 12:13] LABS: Glucose Point of Care 133 mg/dl (65-105)
--- NOTE | 2021-01-11 13:46 | PM.IMPN ---
Progress Note: A&P Assessment and Plan (1) Abnormal CT of the abdomen: Code(s): R93.5 - Abnormal findings on diagnostic imaging of other abdominal regions, including retroperitoneum Status: Acute Assessment and Plan: CT scan: soft tissue thickening of a jejunal segment in the left mid abdomen and soft tissue thickening of the terminal ileum, with nondilated fluid containing ileum. WBC 6.0 yesterday, 3.9 today. Had NG tube for decompression and administering bowel prep, bowel rest, analgesics, and IV fluids - improved. colonoscopy in the past year by Dr. Garcia at [place]. Colonoscopy today ruled out: inflammatory bowel disease, Crohn's disease, infectious enteritis, or a mild adynamic ileus. Source of problem may be anastomosis or/adhesions. Prominent amount of stool still in the colon despite the bowel prep. NG removed. Slow advance of diet and monitor, start with clears. encourage frequent ambulation. Encourage daily fiber at discharge. (2) Ileus: Code(s): K56.7 - Ileus, unspecified Status: Acute Assessment and Plan: See plan above. Appears to be resolving as he is tolerating his prep in has had several loose stools. (3) History of major abdominal surgery: Code(s): Z98.890 - Other specified postprocedural states Status: Acute Assessment and Plan: had a bowel resection in the [place] 9 years ago, then an Adhesion removal in [place] more recently while having SBO difficulties again. 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 euthymic mood stable at this time, no complaints or concerns Additional Plan Subjective Date/time seen: 01/11/21 13:46 Interval history: Pt is a 50-year-old male here for small bowel obstruction. Patient was seen today, has soft palpable abdomen, no pain at this time, no distension noted, NG in place and clamped. He has returned this evening from his colonoscopy and he also had 2 large BMs today, no blood per nursing staff. No N/V at this time, active bowel sounds throughout his abdomen. He is not passing gas or having bowel movements. He had a lot of questions about his plan of care which I answered to his satisfaction and also deferred some to surgery and GI. Patient states he had a colonoscopy with 1 biopsy in the last year which was reportedly negative. He has no history of IBD that he knows of. Denies chest pain, shortness of breath, fevers, chills, leg swelling, or headaches. I have encouraged him to walk and ambulate with nursing staff or family. And that he will likely have his NG removed to start a Clear liquid diet soon per Gen. Surgery or GI. Review of Systems Review of Systems: All systems reviewed & are unremarkable except as noted in HPI and below Constitutional: Constitutional: Reports as per HPI, Denies chills, Denies fatigue, Denies fever(s) and Reports weakness Eyes: Eyes: Reports no additional eye complaints and Denies change in vision ENT: Reports system reviewed and no additional complaints, except as documented, Reports Normal hearing present and Denies dizziness Cardiovascular: Cardiovascular: Reports no additional cardiovascular complaints, Denies chest pain, Denies leg edema and Denies dyspnea Respiratory: Respiratory: Reports no additional respiratory complaints, Denies cou
[2021-01-11 14:34] LABS: Glucose Point of Care 122 mg/dl (65-105)
--- NOTE | 2021-01-11 14:34 | PC.NURSE ---
Pt went to GI Lab for Colonoscopy
[2021-01-11 14:37] VITALS: BP 157/84; PULSE 73; RESP 18; TEMP 36.1; O2SAT 97
--- NOTE | 2021-01-11 14:38 | WPDANESEPPF ---
Anes - Initial Pre Proc Eval Procedure: Operation Date: 01/11/21 12:00 Proposed Procedures p Colonoscopy - Lorenzo Massey MD Date/Time: 01/11/21 14:38 Surgeon: Rosette Griggs NP Pre Op Diagnosis: abdominal pain, ileus Patient Data Age: 50 Gender: M Height: 5 ft 11 in Weight: 90.6 kg Last Vital Signs Temp 97.0 F L 01/11/21 06:00 Pulse 72 01/11/21 06:00 Resp 20 01/11/21 06:00 BP 141/81 H 01/11/21 06:00 Pulse Ox 97 01/11/21 06:00 Allergies Allergy/AdvReac Type Severity Reaction Status Date / Time gabapentin Allergy Unknown Verified 01/11/21 14:36 ketorolac [From Toradol] Allergy Unknown Verified 01/11/21 14:36 promethazine [From Phenergan] Allergy Unknown Verified 01/11/21 14:36 zolpidem [From Ambien] AdvReac Other Verified 01/11/21 14:36 Home Medications Medication Instructions Recorded Confirmed Type escitalopram oxalate [Lexapro] 20 mg PO DAILY 05/09/20 01/09/21 History metformin 500 mg PO BID 05/09/20 01/09/21 History trazodone 50 mg PO HS 05/09/20 01/09/21 History Jardiance 25 mg PO DAILY 12/16/20 01/09/21 History Laboratory Tests 01/10/21 01/10/21 01/10/21 13:50 18:18 23:53 WBC RBC Hgb Hct MCV MCH MCHC RDW Plt Count MPV ESR Sodium Potassium Chloride Carbon Dioxide Anion Gap BUN Creatinine Estim Creat Clear Calc Estimated GFR Glucose POC Capillary Glucose 129 mg/dl H mg/dl 136 mg/dl H mg/dl (65-105) (65-105) Lactic Acid 1.1 mmol/L mmol/L (0.7-2.1) Calcium Magnesium C-Reactive Protein 01/11/21 01/11/21 01/11/21 04:34 05:58 05:58 WBC 3.9 K/mm3 L K/mm3 (4.5-10.0) RBC 4.91 M/mm3 M/mm3 (4.6-6.20) Hgb 12.8 g/dL L g/dL (14.0-18.0) Hct 39.3 % L % (42.0-52.0) MCV 80.0 fl fl (80-100) MCH 26.1 pg pg (26-34) MCHC 32.6 g/dl g/dl (32-36) RDW 13.5 % % (11.5-14.5) Plt Count 195 k/mm3 k/mm3 (150-375) MPV 8.9 fl fl (7.4-10.4) ESR 16 mm/hr mm/hr (0-20) Sodium Potassium Chloride Carbon Dioxide Anion Gap BUN Creatinine Estim Creat Clear Calc Estimated GFR Glucose POC Capillary Glucose 115 mg/dl H mg/dl (65-105) Lactic Acid Calcium Magnesium C-Reactive Protein 01/11/21 01/11/21 01/11/21 05:58 08:55 12:08 WBC RBC Hgb Hct MCV MCH MCHC RDW Plt Count MPV ESR Sodium 134 mmol/L L mmol/L (137-145) Potassium 3.7 mmol/L mmol/L (3.4-5.0) Chloride 101 mmol/L mmol/L (98-107) Carbon Dioxide 30 mmol/L mmol/L (22-30) Anion Gap 3 mmol/L L mmol/L (8-16) BUN 6 mg/dL L mg/dL (9-20) Creatinine 0.90 mg/dL mg/dL (0.7-1.3) Estim Creat Clear Calc 91 ml/min ml/min Estimated GFR > 60 (59 - ) Glucose 114 mg/dL H mg/dL (75-110) POC Capillary Glucose 133 mg/dl H mg/dl 133 mg/dl H mg/dl (65-105) (65-105) Lactic Acid Calcium 8.2 mg/dL L mg/dL (8.4-10.2) Magnesium 1.8 mg/dL mg/dL (1.6-2.3) C-Reactive Protein 0.9 mg/dL mg/dL (<1.0) 01/11/21 14:31 WBC RBC Hgb Hct MCV MCH MCHC RDW Plt Count MPV ESR Sodium Potassium Chloride Carbon Dioxide Anion Gap
[2021-01-11] MEDS: LACTATED RINGERS 1,000 ML 150 ML IV CONT (14:41)
[2021-01-11 16:07] VITALS: BP 157/84; PULSE 73; RESP 18; O2SAT 97
[2021-01-11 16:17] VITALS: BP 128/85; PULSE 69; RESP 21; O2SAT 98
[2021-01-11 16:27] VITALS: BP 149/94; PULSE 65; RESP 17; O2SAT 98
[2021-01-11 17:24] LABS: Glucose Point of Care 120 mg/dl (65-105)
[2021-01-11 22:00] VITALS: BP 149/91; PULSE 78; RESP 16; TEMP 36.4; O2SAT 98
[2021-01-11 23:14] LABS: Glucose Point of Care 92 mg/dl (65-105)
[2021-01-12] MEDS: MORPHINE SULFATE (*CRX) 4 MG/ML INJ IV PUSH ×3 (00:58→08:00)
[2021-01-12] MEDS: SODIUM CHLORIDE 0.9% IV 1,000 ML 125 ML IV CONT (04:22)
[2021-01-12 06:00] VITALS: BP 133/78; PULSE 59; RESP 16; TEMP 36.8; O2SAT 99
[2021-01-12 08:00] VITALS: PULSE 59; RESP 16; O2SAT 99
[2021-01-12] MEDS: PANTOPRAZOLE SODIUM IV 40 MG VIAL IV PUSH (08:01)
[2021-01-12 08:02] LABS: Hematocrit 40.1 % (42.0-52.0); Hemoglobin 13.1 g/dL (14.0-18.0); Mean Corpuscular HGB Conc 32.7 g/dl (32-36); Mean Corpuscular Hemoglobin 25.6 pg (26-34); Mean Corpuscular Volume 78.5 fl (80-100); Mean Platelet Volume 8.9 fl (7.4-10.4); Platelet Count Result 202 k/mm3 (150-375); Red Blood Count 5.11 M/mm3 (4.6-6.20); Red Cell Distribution Width 13.4 % (11.5-14.5); White Blood Count 4.1 K/mm3 (4.5-10.0)
[2021-01-12 08:16] LABS: Anion Gap 3 mmol/L (8-16); Blood Urea Nitrogen 5 mg/dL (9-20); Calcium 8.5 mg/dL (8.4-10.2); Carbon Dioxide 28 mmol/L (22-30); Chloride 100 mmol/L (98-107); Estimated CRCL calculation 101 ml/min; Estimated Glomerular Filt Rate > 60; Glucose 122 mg/dL (75-110); Potassium 3.9 mmol/L (3.4-5.0); Sodium 131 mmol/L (137-145)
[2021-01-12 08:54] LABS: Glucose Point of Care 105 mg/dl (65-105)
--- NOTE | 2021-01-12 09:15 | PM.PNGS ---
Progress Note: A&P Assessment and Plan (1) Ileus: Code(s): K56.7 - Ileus, unspecified Status: Acute Assessment and Plan: slowly resolving, endoscopy report reviewed, ADAT, home once yi diet Subjective Subjective Date/Time Seen: 01/12/21 09:15 feels much improved, NG out, yi clears, BM x 3 overnight (small, soft) Review of Systems Review of Systems: All systems reviewed & are unremarkable except as noted in HPI and below Exam Const: General: cooperative, healthy appearing, comfortable and no acute distress Nutritional Appearance: overweight Orientation/consciousness: patient oriented x3 Limitations: no limitations Resp: Effort & Inspection: normal respiratory effort Auscultation: clear to auscultation bilaterally Cardio: Rate: regular rate Rhythm: regular rhythm GI: Inspection: normal to inspection and distended GI Palp: No abdominal tenderness, Yes Soft to palpation, No Tenderness to palpation present (GI) and No Guarding due to palpation present (GI) Other: soft, sl dist, NT, +BS Objective Data Vital Signs Vital Signs: Vital Signs - 24 hr 01/11/21 14:37 01/11/21 16:07 01/11/21 16:17 Temperature 36.1 C L Pulse Rate 73 73 69 Respiratory Rate 18 18 21 H Blood Pressure 157/84 H 157/84 H 128/85 Pulse Oximetry 97 97 98 01/11/21 16:27 01/11/21 22:00 01/12/21 06:00 Temperature 36.4 C 36.8 C Pulse Rate 65 78 59 L Respiratory Rate 17 16 16 Blood Pressure 149/94 H 149/91 H 133/78 Pulse Oximetry 98 98 99 Intake/Output Intake/Output: Intake & Output 01/09/21 01/10/21 01/11/21 01/12/21 23:59 23:59 23:59 23:59 Intake Total 1000 3670 2400 1500 Output Total 890 1400 Balance 1000 2780 1000 1500 Meds/Results Medications: Active Medications Generic Name Dose Route Start Last Admin Trade Name Freq PRN Reason Stop Dose Admin Dextrose 12.5 gm 01/10/21 13:36 Dextrose 50% 25 Gm/50 Ml Syringe IV PUSH PRN PRN Hypoglycemia Protocol Glucagon 1 mg 01/10/21 13:36 Glucagon For Inj 1 Mg Vial IM PRN PRN Hypoglycemia Protocol Glucose 15 gm 01/10/21 13:36 Glucose Oral Gel 15 Gm Of Glucse In 37.5 Gm Tube PO PRN PRN Hypoglycemia Protocol Sodium Chloride 1,000 mls @ 125 mls/hr 01/09/21 19:00 01/12/21 04:22 Normal Saline Iv IV CONT 125 mls/hr .Q8H ENDER Administration Dextrose 1,000 mls @ 100 mls/hr 01/10/21 13:36 Dextrose 5% 1,000 Ml IVPB PRN PRN Hypoglycemia Protocol Insulin Aspart 2 - 5 units 01/10/21 08:00 01/12/21 08:08 Insulin Aspart (*Bkc) 100 Units/Ml SUB-Q Not Given TIDWM ENDER Protocol Morphine Sulfate 4 mg 01/09/21 18:59 01/12/21 08:00 Morphine Sulfate (*Crx) 4 Mg/Ml Inj IV PUSH 4 mg Q2H PRN Administration Pain Rated 7-10 Nicotine Polacrilex 2 mg 01/10/21 08:13 Nicotine (*Pbkc) 2 Mg Gum PO PRN PRN Nicotine Cravings Ondansetron HCl 4 mg 01/09/21 21:21 01/11/21 11:18 Ondansetron Inj 4 Mg/2 Ml Vial IV PUSH 4 mg Q4H PRN Administration Nausea And Vomiting Pantoprazole Sodium 40 mg 01/11/21 09:00 01/12/21 08:01 Pantoprazole Sodium Iv 40 Mg Vial IV PUSH 40 mg QAM ENDER Administration Radiology Results: ITS Impressions Abdomen/Pelvis CT 01/09/21 17:29 IMPRESSION: Upper limit caliber and soft tissue thickening of jejunal segment in the left midabdomen and soft tissue thickening of the terminal ileum, with nondilated fluid containing ileum. Consider Crohn's disease, infectious enteritis or mild nonspecific adynamic ileus. Status post cholecystectomy Hepatic steatosis Postoperative change of the sigmoid colon Appendectomy Abdomen MRI 01/10/21 13:29 IMPRESSION: 1. Diffuse hepatic steatosis. Abdomen X-Ray 01/11/21 08:46 IMPRESSION: 1. Normal bowel gas pattern. Labs Labs: Laboratory Results - last 24 hr 01/11/21 01/11/21 01/11/21 12:08 14:31 17:21 WBC RBC Hgb Hc
[2021-01-12] MEDS: MORPHINE SULFATE (*CRX) 2 MG/ML INJ IV PUSH ×2 (11:14→21:56)
--- NOTE | 2021-01-12 12:21 | WPDANESPN ---
Anes - Prog Note Post-Op Date/Time: 01/12/21 12:21 Cardiovascular status: normal Respiratory status: normal Airway patency: baseline Mental status: baseline Post-Op hydration status: normal Vital Signs: Last Vital Signs Temp 36.8 C 01/12/21 06:00 Pulse 59 L 01/12/21 08:00 Resp 16 01/12/21 08:00 BP 133/78 01/12/21 06:00 Pulse Ox 99 01/12/21 08:00 Pain Score (VAS): 0 I/O: Intake & Output 01/11/21 01/12/21 01/12/21 23:59 07:59 15:59 Intake Total 1100 1500 120 Output Total 1000 Balance 100 1500 120 Laboratory Tests 01/12/21 07:17 01/12/21 07:17 01/11/21 01/11/21 01/11/21 14:31 17:21 20:48 WBC RBC Hgb Hct MCV MCH MCHC RDW Plt Count MPV Sodium Potassium Chloride Carbon Dioxide Anion Gap BUN Creatinine Estim Creat Clear Calc Estimated GFR Glucose POC Capillary Glucose 122 H 120 H 92 Calcium 01/12/21 01/12/21 01/12/21 07:17 07:17 08:05 WBC 4.1 L RBC 5.11 Hgb 13.1 L Hct 40.1 L MCV 78.5 L MCH 25.6 L MCHC 32.7 RDW 13.4 Plt Count 202 MPV 8.9 Sodium 131 L Potassium 3.9 Chloride 100 Carbon Dioxide 28 Anion Gap 3 L BUN 5 L Creatinine 0.80 Estim Creat Clear Calc 101 Estimated GFR > 60 Glucose 122 H POC Capillary Glucose 105 Calcium 8.5 Post-procedural complaints: none Patient Feedback: Patient satisfied with anesthetic care.
--- NOTE | 2021-01-12 12:22 | PM.IMPN ---
Progress Note: A&P Assessment and Plan (1) Abnormal CT of the abdomen: Code(s): R93.5 - Abnormal findings on diagnostic imaging of other abdominal regions, including retroperitoneum Status: Acute Assessment and Plan: Patient with recurrent bowel obstructions and recent hospital admissions for same presents with abdominal pain. CT demonstrated soft tissue thickening of a jejunal segment in the left mid abdomen and soft tissue thickening of the terminal ileum, with nondilated fluid containing ileum. General surgery and GI following - appreciate recommendations. EGD/colonoscopy 01/11/[address] Ovalle with no evidence of ileitis, strictures, or Crohn's. Suspect adhesions from prior abdominal surgeries are contributing. Was treated with bowel rest and NG decompression - NG removed 01/11 and doing well. Continue supportive care with gentle IV hydration, antiemetics, and pain control. Start oral norco in attempts to decrease and wean IV morphine. Encouraged increased activity today - walk the halls. Full liquids for lunch and dinner - advance diet slowly given his history. Discharge home once he can tolerate a diet, anticipate possibly tomorrow. (2) Ileus: Code(s): K56.7 - Ileus, unspecified Status: Acute Assessment and Plan: See plan above. Appears to be resolving clinically. BM this morning and tolerating PO intake. (3) History of major abdominal surgery: Code(s): Z98.890 - Other specified postprocedural states Status: Acute Assessment and Plan: History of bowel resection several years ago; adhesiolysis more recently. Suspect contributing to above. (4) Diabetes mellitus: Qualifiers: Diabetes mellitus type: type 2 Diabetes mellitus penitentiary insulin use: without penitentiary use Diabetes mellitus complication status: without complication Qualified Code(s): E11.9 - Type 2 diabetes mellitus without complications Code(s): E11.9 - Type 2 diabetes mellitus without complications Status: Chronic Assessment and Plan: Hgb A1c 9.5% a few weeks ago. Consider discontinuing Jardiance at discharge in case this is contributing at all to his GI issues. Continue to monitor with accu-cheks and adjust treatment as needed, cover with SSI. (5) PTSD (post-traumatic stress disorder): Code(s): F43.10 - Post-traumatic stress disorder, unspecified Status: Chronic Assessment and Plan: Stable. Resume his home medications today. Not sleeping at all, resume his home trazodone. Subjective Date/time seen: 01/12/21 1000 Interval history: Mr. Allen is a 50yo M admitted for recurrent bowel obstruction. He is seen in follow up today and feels improved. NG is out. Rates his right-sided abdominal pain 5/10 at this time. Denies nausea or vomiting today. Had a green party formed bowel movement early this morning. No chest pain or shortness of breath. He tells me he did not sleep at all last night since he has not been getting his home trazodone. Tolerated clear liquids for breakfast and will trial full liquids for lunch and dinner. Review of Systems Review of Systems: All systems reviewed & are unremarkable except as noted in HPI and below Exam Narrative: Exam Narrative: General: Male resting supine in bed in no acute distress. HEENT: Normocephalic, EOMI, oral mucosa moist. Cardiovascular: Rate and rhythm are regular. Respiratory: Lungs clear to auscultation bilaterally. Respirations even and non-labored. Tolerating room air. Abdomen: Soft, non-distended, bowel sounds present. Diffuse tenderness to palpation without guarding R>L. Extremities: Peripheral pulses intact. No edema or pain to palpation. Neuro: Awake and alert, answering questions appropriate
[2021-01-12] MEDS: ESCITALOPRAM OXALATE 10 MG TABLET 20 MG PO (12:36)
[2021-01-12 12:41] LABS: Glucose Point of Care 122 mg/dl (65-105)
[2021-01-12] MEDS: SODIUM CHLORIDE 0.9% IV 1,000 ML 75 ML IV CONT ×2 (13:37→21:55)
[2021-01-12] MEDS: HYDROcodone/acetaminophen (*CRX) 7.5-325 MG TABLET 1 TAB PO ×2 (13:37→20:37)
[2021-01-12 14:00] VITALS: BP 142/80; PULSE 89; RESP 16; TEMP 36.3; O2SAT 98
[2021-01-12 16:01] VITALS: O2SAT 97
[2021-01-12 18:21] LABS: Glucose Point of Care 163 mg/dl (65-105)
[2021-01-12] MEDS: traZODone HCL 50 MG TABLET PO (20:42)
[2021-01-12 21:43] LABS: Glucose Point of Care 161 mg/dl (65-105)
[2021-01-12 21:46] VITALS: O2SAT 96
[2021-01-12 22:00] VITALS: BP 134/78; PULSE 65; RESP 16; TEMP 37.1; O2SAT 96
[2021-01-13 06:00] VITALS: BP 121/69; PULSE 74; RESP 16; TEMP 36.6; O2SAT 97
[2021-01-13 08:00] VITALS: PULSE 74; RESP 16; O2SAT 97
[2021-01-13 09:23] LABS: Glucose Point of Care 123 mg/dl (65-105)
--- NOTE | 2021-01-13 09:41 | PM.DS ---
DS: Admitting Diagnosis Admitting Diagnosis Admitting Diagnosis: Abdominal pain/ ileus DS: Discharge Diagnosis Discharge Diagnosis (1) Abnormal CT of the abdomen: Code(s): R93.5 - Abnormal findings on diagnostic imaging of other abdominal regions, including retroperitoneum Status: Acute Assessment and Plan: Date of Admission 01/09/21 Date of Discharge 01/13/21 Mr. Allen is a 50yo M with history of multiple episodes of bowel obstruction/ileus; non-insulin dependent type 2 DM, and PTSD who presented to the ED for evaluation of abdominal pain. He was found to have another bowel obstruction/ileus and was treated conservatively. He improved with the conservative measures detailed below and is stable for discharge 01/13/21. Patient with recurrent bowel obstructions and recent hospital admissions for same presents with abdominal pain. CT demonstrated soft tissue thickening of a jejunal segment in the left mid abdomen and soft tissue thickening of the terminal ileum, with nondilated fluid containing ileum. He was evaluated by general surgery as well as GI. NG was inserted in the ER and placed to low intermittent suction. He was treated with conservative measures - bowel rest, IV hydration, pain control and antiemetics. He was evaluated by GI and underwent EGD/colonoscopy 01/11/[address] Ovalle which showed no evidence of ileitis, strictures, or Crohn's. Suspect adhesions from prior abdominal surgeries are contributing. He is encouraged to continue walking the halls and increasing his activity to help stimulate his bowel function. His diet was gradually advanced and he is tolerating a soft low residue diet prior to discharge; having multiple bowel movements per day and rates his abdominal pain 3/10 today, much better than when he came in. He is hemodynamically stable for discharge home on 01/13/21 and he is comfortable with his discharge plan today. He is educated on using narcotic medications sparingly as this will contribute to slower gut motility. (2) Ileus: Code(s): K56.7 - Ileus, unspecified Status: Acute Assessment and Plan: See plan above. Resolving clinically. BM this morning and tolerating PO intake. (3) History of major abdominal surgery: Code(s): Z98.890 - Other specified postprocedural states Status: Acute Assessment and Plan: History of bowel resection several years ago; adhesiolysis more recently. Suspect contributing to above. (4) Diabetes mellitus: Qualifiers: Diabetes mellitus complication status: without complication Diabetes mellitus ag service manager insulin use: without ag service manager use Diabetes mellitus type: type 2 Qualified Code(s): E11.9 - Type 2 diabetes mellitus without complications Code(s): E11.9 - Type 2 diabetes mellitus without complications Status: Chronic Assessment and Plan: Hgb A1c 9.5% a few weeks ago. His home Jardiance and metformin were held. His blood sugars are appropriate in the hospital as his diet is more constricted while hospitalized. It was previously mentioned to consider holding Jardiance at discharge in case this may be contributing to his GI issues. Given his elevated A1c, I will defer this decision to his primary care provider so he can be started on different medication if needed. (5) PTSD (post-traumatic stress disorder): Code(s): F43.10 - Post-traumatic stress disorder, unspecified Status: Chronic Assessment and Plan: Stable. Maintained on his home medications. DS: Summary Hospital Course Hospital Course: See above Time Spent with Patient Time attestation: Total time spent providing and/or coordinating discharge services: 35 minutes Exam Narrative: Exam Narrative: General: Male blayne
[2021-01-13] MEDS: ESCITALOPRAM OXALATE 10 MG TABLET 20 MG PO (10:26)
[2021-01-13] MEDS: PANTOPRAZOLE SODIUM IV 40 MG VIAL IV PUSH (10:26)
--- NOTE | 2021-01-13 10:30 | PM.PNGS ---
Progress Note: A&P Assessment and Plan (1) Ileus: Code(s): K56.7 - Ileus, unspecified Status: Acute Assessment and Plan: improved, cont diet, +bowel fxn, home soon, f/u c Dr. Pires in 2 wks Subjective Subjective Date/Time Seen: 01/13/21 10:30 feels pretty good, wants to go home, yi diet, +bowel fxn Review of Systems Review of Systems: All systems reviewed & are unremarkable except as noted in HPI and below Exam Const: General: cooperative, comfortable and no acute distress Resp: Effort & Inspection: normal respiratory effort Auscultation: clear to auscultation bilaterally Cardio: Rate: regular rate Rhythm: regular rhythm GI: Inspection: normal to inspection and distended GI Palp: Yes Soft to palpation and No Tenderness to palpation present (GI) Objective Data Vital Signs Vital Signs: Vital Signs - 24 hr 01/12/21 14:00 01/12/21 16:01 01/12/21 21:46 Temperature 36.3 C L Pulse Rate 89 Respiratory Rate 16 Blood Pressure 142/80 H Pulse Oximetry 98 97 96 01/12/21 22:00 01/13/21 06:00 Temperature 37.1 C 36.6 C Pulse Rate 65 74 Respiratory Rate 16 16 Blood Pressure 134/78 121/69 Pulse Oximetry 96 97 Intake/Output Intake/Output: Intake & Output 01/10/21 01/11/21 01/12/21 01/13/21 23:59 23:59 23:59 23:59 Intake Total 3670 2400 4140 480 Output Total 890 1400 1000 Balance 2780 1000 3140 480 Meds/Results Medications: Active Medications Generic Name Dose Route Start Last Admin Trade Name Freq PRN Reason Stop Dose Admin Acetaminophen 650 mg 01/12/21 10:30 Acetaminophen 325 Mg Tablet PO Q4H PRN Mild Pain (1-3) or Fever Hydrocodone Bitart/Acetaminophen 1 tab 01/12/21 10:30 01/12/21 20:37 Hydrocodone/Acetaminophen (*Crx) 7.5-325 Mg Tablet PO 1 tab Q6H PRN Administration Pain Rated 4-6 Dextrose 12.5 gm 01/10/21 13:36 Dextrose 50% 25 Gm/50 Ml Syringe IV PUSH PRN PRN Hypoglycemia Protocol Escitalopram Oxalate 20 mg 01/12/21 10:50 01/13/21 10:26 Escitalopram Oxalate 10 Mg Tablet PO 20 mg DAILY ENDER Administration Glucagon 1 mg 01/10/21 13:36 Glucagon For Inj 1 Mg Vial IM PRN PRN Hypoglycemia Protocol Glucose 15 gm 01/10/21 13:36 Glucose Oral Gel 15 Gm Of Glucse In 37.5 Gm Tube PO PRN PRN Hypoglycemia Protocol Dextrose 1,000 mls @ 100 mls/hr 01/10/21 13:36 Dextrose 5% 1,000 Ml IVPB PRN PRN Hypoglycemia Protocol Insulin Aspart 2 - 5 units 01/10/21 08:00 01/13/21 08:32 Insulin Aspart (*Bkc) 100 Units/Ml SUB-Q Not Given TIDWM ENDER Protocol Morphine Sulfate 2 mg 01/12/21 10:32 01/12/21 21:56 Morphine Sulfate (*Crx) 2 Mg/Ml Inj IV PUSH 2 mg Q4H PRN Administration Pain Rated 7-10 Nicotine Polacrilex 2 mg 01/10/21 08:13 Nicotine (*Pbkc) 2 Mg Gum PO PRN PRN Nicotine Cravings Ondansetron HCl 4 mg 01/09/21 21:21 01/11/21 11:18 Ondansetron Inj 4 Mg/2 Ml Vial IV PUSH 4 mg Q4H PRN Administration Nausea And Vomiting Pantoprazole Sodium 40 mg 01/11/21 09:00 01/13/21 10:26 Pantoprazole Sodium Iv 40 Mg Vial IV PUSH 40 mg QAM ENDER Administration Trazodone HCl 50 mg 01/12/21 21:00 01/12/21 20:42 Trazodone Hcl 50 Mg Tablet PO 50 mg HS ENDER Administration Radiology Results: ITS Impressions Abdomen/Pelvis CT 01/09/21 17:29 IMPRESSION: Upper limit caliber and soft tissue thickening of jejunal segment in the left midabdomen and soft tissue thickening of the terminal ileum, with nondilated fluid containing ileum. Consider Crohn's disease, infectious enteritis or mild nonspecific adynamic ileus. Status post cholecystectomy Hepatic steatosis Postoperative change of the sigmoid colon Appendectomy Abdomen MRI 01/10/21 13:29 IMPRESSION: 1. Diffuse hepatic steatosis. Abdomen X-Ray 01/11/21 08:46 IMPRESSION: 1. Normal bowel gas pattern. La
== END 2021-01-13 11:30 | disposition home or self-care (01) | DRG 390 ==
LOC: ANHED 19:05 → ANH3MEDSUR 19:39
PROVIDERS: Emergency Medicine; Internal Medicine Gastroenterology; Nurse Practitioner; Physician Assistant; Admitting Provider Internal Medicine; Emergency Provider Nurse Practitioner; PCP Family Medicine; Visit Provider Physician Assistant
PROC: 0DJD8ZZ Inspection of Lower Intestinal Tract, Via Natural or Artificial Opening Endoscopic (ICD-10-PCS; CPT 45378; principal; 2021-01-11 12:00)
DX: K56.7 Ileus, unspecified (principal); E11.9 Type 2 diabetes mellitus without complications; F32.9 Major depressive disorder, single episode, unspecified; F43.10 Post-traumatic stress disorder, unspecified; Z90.49 Acquired absence of other specified parts of digestive tract
CPT/HCPCS: 36415; 74019; 74177; 74183; 80048; 80053; 81001; 82948; 83605; 83690; 83735; 85025; 85027; 85652; 86140; 96361; 96365; 96374; 96375; 96376; 99285; A9270; A9577; C9113; G0378; J0131; J1170; J2270; J2405; J2704; J7030; J7120; Q9967

== ENCOUNTER 2021-05-13 22:05 | Emergency (ER) | payer OTHER, SELFPAY ==
--- NOTE | ~2021-05-13 | CT_ITS ---
EXAMINATION: CT abdomen pelvis w con DATE: 05/14/2021 03:14 INDICATION: Abdominal pain. TECHNIQUE: Computed tomography (CT) of the abdomen and pelvis was performed with 100 mL Omnipaque 350 intravenous contrast. Automated exposure control and iterative reconstruction technique were employe d. The dose-length product was 1007.82 mGy-cm. COMPARISON: CT abdomen and pelvis 01/09/2021 FINDINGS: The visualized portions of the lung bases demonstrate mild atelectasis and mild chronic brooks g disease. A calcified right lung nodule is consistent with old granulomatous disease. There is mild elevation right hemidiaphragm. No pleural effusion. The heart size is normal. No pericardial effusion . The liver and spleen are normal. There are changes of cholecystectomy. The pancreas and adrenal gla nds are normal. There is cortical thinning of the kidneys. There is an anastomosis in the sigmoid col on. There are changes of appendectomy. There are likely changes of fundoplication of the stomach. The re are a few dilated loops of small bowel without focal transition point, likely adynamic ileus. Ther e are no pathologically enlarged lymph nodes. There is no free intraperitoneal fluid. There is mild t horacolumbar spondylosis. IMPRESSION: 1. Dilated loops of small bowel, likely adynamic ileus. Reviewed, dictated and finalized at location A.
[2021-05-13 22:40] VITALS: BP 126/83; PULSE 97; RESP 16; TEMP 37.1; O2SAT 95
[2021-05-13 22:56] LABS: Basophils Percent Auto 0.6 % (0.2-1.2); Eosinophils Absolute Auto 0.1 K/mm3 (0-0.3); Eosinophils Percent Auto 1.9 % (0-4.4); Hematocrit 41.5 % (42.0-52.0); Hemoglobin 14.2 g/dL (14.0-18.0); Lymphocytes Absolute Auto 1.45 K/mm3 (0.9-3.2); Lymphocytes Percent Auto 30.3 % (18.3-44.2); Mean Corpuscular HGB Conc 34.2 g/dl (32-36); Mean Corpuscular Hemoglobin 27.1 pg (26-34); Mean Corpuscular Volume 79.2 fl (80-100); Monocytes Absolute Auto 0.4 K/mm3 (0.1-0.6); Monocytes Percent Auto 7.9 % (2.6-8.5); Neutrophils Absolute Auto 2.8 K/mm3 (1.3-6.7); Neutrophils Percent Auto 59.3 % (45.5-73.1); Platelet Count Result 257 k/mm3 (150-375); Red Blood Count 5.24 M/mm3 (4.6-6.20); White Blood Count 4.8 K/mm3 (4.5-10.0)
[2021-05-13 23:30] LABS: Alanine Aminotransferase 23 U/L (4-50); Albumin Level 4.2 g/dL (3.5-5.1); Alkaline Phosphatase 70 U/L (38-126); Anion Gap 10 mmol/L (8-16); Aspartate Amino Transferase 27 U/L (17-59); Bilirubin,Total 0.5 mg/dL (0.2-1.3); Blood Urea Nitrogen 11 mg/dL (9-20); Calcium 8.4 mg/dL (8.4-10.2); Carbon Dioxide 24 mmol/L (22-30); Chloride 100 mmol/L (98-107); Estimated CRCL calculation 90 ml/min; Estimated Glomerular Filt Rate > 60; Glucose 212 mg/dL (65-110); Lipase 153 U/L (23-300); Potassium 3.9 mmol/L (3.4-5.0); Sodium 134 mmol/L (137-145)
[2021-05-14 00:07] LABS: Add Urine Microscopic? YES; Appearance Urine Clear (Clear); Bacteria Urine Trace /hpf; Bilirubin Urine Negative (Negative); Blood Urine Negative (Negative); Color Urine Yellow (Yellow); Glucose Urine UA 1+ mg/dL (Negative); Ketones Urine Trace mg/dL (Negative); Leukocyte Esterase Ur Negative LEU/UL (Negative); Mucus Urine Rare /lpf; Nitrate Urine Negative (Negative); Protein Urine Negative (Negative); RBC Urine 0-2 /hpf (0-2); Specific Grav Ur 1.027 (1.001-1.035); WBC Urine 0-3 /hpf
[2021-05-14 01:47] VITALS: BP 129/91; PULSE 92; RESP 16; TEMP 36.8; O2SAT 97
--- NOTE | 2021-05-14 01:54 | ED.ABDPAIN ---
HPI - Abdominal Pain General Chief Complaint: Abdominal Pain Stated Complaint: abd pain Time Seen by Provider: 05/14/21 01:46 Source: patient Mode of arrival: ambulatory Limitations: no limitations History of Present Illness HPI narrative: Patient is a 51-year-old male complaining of abdominal pain, lower, 6 out of 10, dull accompanied by nausea, vomiting and diarrhea. Patient states that his vomitus is nonbilious nonbloody. Patient's diarrhea is loose watery, nonbloody. Patient states that he has a history of diverticulitis and bowel obstructions in the past Related Data Home Medications Medication Instructions Recorded Confirmed escitalopram oxalate [Lexapro] 20 mg PO DAILY 05/09/20 01/09/21 metformin 500 mg PO BID 05/09/20 01/09/21 trazodone 50 mg PO HS 05/09/20 01/09/21 Jardiance 25 mg PO DAILY 12/16/20 01/09/21 Allergies Allergy/AdvReac Type Severity Reaction Status Date / Time gabapentin Allergy Unknown Verified 05/14/21 02:19 ketorolac [From Toradol] Allergy Unknown Verified 05/14/21 02:19 promethazine [From Phenergan] Allergy Unknown Verified 05/14/21 02:19 zolpidem [From Ambien] AdvReac Other Verified 05/14/21 02:19 Review of Systems Review of Systems: All systems reviewed & are unremarkable except as noted in HPI and below Constitutional: Constitutional: Denies body ache(s), Denies chills, Denies excessive sweating, Denies fatigue, Denies fever(s), Denies headache(s), Denies lethargy, Denies malaise, Denies weakness and Denies weight loss Eyes: Eyes: Denies blurry vision, Denies change in vision and Denies loss of vision ENT: Denies dizziness, Denies ear discharge, Denies headache(s), Denies lip swelling, Denies epistaxis, Denies nasal congestion, Denies neck pain, Denies throat swelling and Denies tongue swelling Cardiovascular: Cardiovascular: Denies chest pain, Denies chest pain at rest, Denies chest pain with activity, Denies diaphoresis, Denies rapid heart rate, Denies edema, Denies irregular heart rhythm, Denies lightheadedness, Denies palpitations, Denies dyspnea and Denies dyspnea on exertion Respiratory: Respiratory: Denies chest congestion, Denies cough, Denies hemoptysis, Denies dyspnea and Denies dyspnea on exertion Gastrointestinal: Gastrointestinal: Denies melena, Denies hematochezia and Denies hematemesis Musculoskeletal: Musculoskeletal: Denies abnormal gait, Denies deformity, Denies joint swelling, Denies limited range of motion, Denies neck pain and Denies numbness Neurologic: Denies Abnormal speech present, Denies abnormal gait, Denies confusion, Denies dizziness, Denies headache(s), Denies focal weakness, Denies loss of vision, Denies numbness, Denies Other visual disturbances, Denies Sensory deficit (Neuro) and Denies weakness Psychiatric: Psychiatric: Denies confusion, Denies depression, Denies auditory hallucinations, Denies homicidal ideation and Denies suicidal ideation Endocrine: Endocrine: Denies cold intolerance, Denies excessive sweating, Denies fatigue, Denies heat intolerance and Denies palpitations Hematologic/Lymphatic: Hematologic/Lymphatic: Denies easy bleeding and Denies easy bruising Allergic/Immunologic: Allergic/Immunologic: Denies lip swelling, Denies throat swelling and Denies tongue swelling PMFSH Past Medical History Medical History Depression Diabetes mellitus Diverticulitis History of small bowel obstruction PTSD (post-traumatic stress disorder) Surgical History Surgical History H/O hand surgery History of ankle surgery right History of appendectomy Laparoscopic appendectomy History of colon resection Sigmoid colon resection for diverticulitis 6-7 years ago in [place] History of exploratory laparotomy Ex lap with adhesiolysis for small bowel obstruction 3-4 years ago in [place]. History of Ludmila fundoplication Laparoscopic Hx of cholecyste
[2021-05-14 02:18] VITALS: BP 139/90; PULSE 81; RESP 15; O2SAT 97
[2021-05-14] MEDS: SODIUM CHLORIDE 0.9% IV 1,000 ML 999 ML IV CONT (02:19)
[2021-05-14] MEDS: HYDROmorphone HCL INJ (*CRX) 1 MG/ML SYR IV PUSH (02:46)
[2021-05-14] MEDS: ONDANSETRON INJ 4 MG/2 ML VIAL IV PUSH (02:46)
--- NOTE | 2021-05-14 02:53 | PC.NURSE ---
Pt to CT scan via stretcher at this time.
[2021-05-14 04:10] VITALS: BP 129/89; PULSE 88; RESP 15; O2SAT 99
[2021-05-14] MEDS: HYDROcodone/acetaminophen (*CRX) 5-325 MG TABLET 1 TAB PO (04:18)
== END 2021-05-14 04:21 | disposition home or self-care (01) ==
PROVIDERS: Emergency Provider Emergency Medicine
DX: K52.9 Noninfective gastroenteritis and colitis, unspecified (principal); Z79.84 Long term (current) use of oral hypoglycemic drugs; F32.9 Major depressive disorder, single episode, unspecified; E11.9 Type 2 diabetes mellitus without complications; F43.10 Post-traumatic stress disorder, unspecified; Z90.49 Acquired absence of other specified parts of digestive tract
CPT/HCPCS: 36415; 74177; 80053; 81001; 83690; 85025; 96361; 96374; 96375; 99284; A9270; J1170; J2405; J7030; Q9967

== ENCOUNTER 2021-05-30 15:41 | Emergency (ER) | payer OTHER, SELFPAY ==
--- NOTE | ~2021-05-30 | CT_ITS ---
EXAMINATION: CT abdomen pelvis w con EXAM DATE: 05/30/2021 18:00 INDICATION: Abdominal pain. TECHNIQUE: Spiral CT of the abdomen and pelvis was performed following intravenous injection of 100 m L Omnipaque 350. Axial, coronal and sagittal images of the abdomen and pelvis were reviewed. The do se-length product (DLP) for this examination was 890.38 mGy-cm. The exposure was tailored according to patient size (auto mA exposure control), and iterative reconstruction (ASIR) was used as additiona l dose reduction technique. Comparison is made to prior examination from 05/14/2021. FINDINGS: The liver, spleen, adrenal glands and pancreas are unremarkable. Gallbladder is unremarkab le. No biliary obstruction. Portal and splenic veins are patent. Kidneys enhance symmetrically. T here is no hydronephrosis. The prostate is unremarkable. The bladder is unremarkable. There is no retroperitoneal or pelvic lymphadenopathy. Small umbilical fat-containing hernia. The appendix is not positively visualized. There is no pericecal inflammatory change to suggest appe ndicitis. The stomach and small bowel are unremarkable. Colonic anastomosis material. There is exp ected amount of colonic stool. No free intraperitoneal gas. The heart is normal in size. There a re no pericardial or pleural effusions. The lung bases are unremarkable. There are no osteoblastic or osteolytic lesions identified. Some left inguinal surgical clips probably hernia repair. IMPRESSION: 1. No acute intra-abdominal findings. Reviewed, dictated and finalized at location G.
[2021-05-30 15:57] VITALS: BP 142/91; PULSE 94; RESP 18; TEMP 37.2; O2SAT 98
--- NOTE | 2021-05-30 16:10 | ED.GENADULT ---
HPI - General Adult General Chief complaint: Abdominal Pain Stated complaint: abd pain Time Seen by Provider: 05/30/21 15:54 Source: RN notes reviewed History of Present Illness HPI narrative: Patient presents emergency department from home for abdominal pain. Patient states pain began yesterday pain is located left lower quadrant does not radiate described as sharp and stabbing associate with nausea vomiting and diarrhea. Patient states he has had a history of numerous episodes of diverticulitis with a portion of his colon removed. He denies any fevers or chills or any other symptoms states he took Tylenol at home for the pain with minimal relief Related Data Home Medications Medication Instructions Recorded Confirmed escitalopram oxalate [Lexapro] 20 mg PO DAILY 05/09/20 01/09/21 metformin 500 mg PO BID 05/09/20 01/09/21 trazodone 50 mg PO HS 05/09/20 01/09/21 Jardiance 25 mg PO DAILY 12/16/20 01/09/21 modafinil mg 05/30/21 Allergies Allergy/AdvReac Type Severity Reaction Status Date / Time gabapentin Allergy Unknown Verified 05/30/21 16:00 ketorolac [From Toradol] Allergy Unknown Verified 05/30/21 16:00 promethazine [From Phenergan] Allergy Unknown Verified 05/30/21 16:00 zolpidem [From Ambien] AdvReac Other Verified 05/30/21 16:00 Review of Systems Review of Systems: Gen.: Denies fevers or chills ENT: Denies congestion Respiratory: Denies shortness of breath or cough CV: Denies chest pain or palpitations GI: See HPI Musculoskeletal: Denies back pain or muscle pain Neuro: Denies numbness, tingling, weakness or focal weakness Skin: Denies rash Except as documented, all other systems reviewed and negative PMF Past Medical History Medical History Depression Diabetes mellitus Diverticulitis History of small bowel obstruction PTSD (post-traumatic stress disorder) Surgical History Surgical History H/O hand surgery History of ankle surgery right History of appendectomy Laparoscopic appendectomy History of colon resection Sigmoid colon resection for diverticulitis 6-7 years ago in [place] History of exploratory laparotomy Ex lap with adhesiolysis for small bowel obstruction 3-4 years ago in [place]. History of Ludmila fundoplication Laparoscopic Hx of cholecystectomy Laparoscopic cholecystectomy Family History Family History Father Heart disease Social History Social History Social History: the patient is engaged. he has a son. He does not have a durable power assistant district attorney for healthcare poa and he is full code. He denies any alcohol or illicit drug use. 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 Smoking status: Never smoker Alcohol intake: never Substance use: never Substance use type: does not use Gender identity (if verbalized by the patient): Male Spiritual care concerns: No Exam Narrative: APPEARANCE: No acute distress, nontoxic, resting in bed HEENT: Normocephalic, atraumatic, OMM RESPIRATORY: No respiratory distress, clear to auscultation bilaterally with no rhonchi wheezing or rales CARDIOVASCULAR: RRR s murmur ABDOMINAL: Soft nondistended tender palpation right lower quadrant left lower quadrant no tenderness right upper quadrant left upper quadrant no rebound or guarding MUSCULOSKELETAl: Moves all extremities. No clubbing, cyanosis or edema. NEURO: Awake and alert. Following commands, speech normal, no focal deficits SKIN:: Warm, dry. Normal Color PSYCHIATRIC: Normal affect/mood Course Course Emergency Course: Reviewed old records Patient states that they are feeling much better at this time. States abdominal pain has improved repeat abdominal exam shows the patient's abdomen to be soft and nontender. Discussed with patient results of
[2021-05-30] MEDS: ONDANSETRON INJ 4 MG/2 ML VIAL IV PUSH ×2 (16:25→17:55)
[2021-05-30] MEDS: MORPHINE SULFATE (*CRX) 4 MG/ML INJ IV PUSH ×2 (16:25→17:36)
[2021-05-30] MEDS: SODIUM CHLORIDE 0.9% IV 1,000 ML 999 ML IV CONT (16:26)
[2021-05-30 16:32] LABS: Basophils Percent Auto 0.6 % (0.2-1.2); Eosinophils Absolute Auto 0.1 K/mm3 (0-0.3); Eosinophils Percent Auto 1.4 % (0-4.4); Hematocrit 43.3 % (42.0-52.0); Hemoglobin 14.7 g/dL (14.0-18.0); Immature Granulocyte Absolute 0.02 K/mm3 (0.00-0.031); Immature Granulocyte Percent A 0.3 % (0-0.5); Lymphocytes Absolute Auto 2.43 K/mm3 (0.9-3.2); Lymphocytes Percent Auto 37.2 % (18.3-44.2); Mean Corpuscular HGB Conc 33.9 g/dl (32-36); Mean Corpuscular Hemoglobin 27.4 pg (26-34); Mean Corpuscular Volume 80.6 fl (80-100); Mean Platelet Volume 9.3 fl (7.4-10.4); Monocytes Absolute Auto 0.4 K/mm3 (0.1-0.6); Monocytes Percent Auto 6.1 % (2.6-8.5); Neutrophils Absolute Auto 3.6 K/mm3 (1.3-6.7); Neutrophils Percent Auto 54.4 % (45.5-73.1); Platelet Count Result 280 k/mm3 (150-375); Red Blood Count 5.37 M/mm3 (4.6-6.20); White Blood Count 6.5 K/mm3 (4.5-10.0)
[2021-05-30 17:10] LABS: Alanine Aminotransferase 28 U/L (4-50); Albumin Level 4.6 g/dL (3.5-5.1); Alkaline Phosphatase 75 U/L (38-126); Anion Gap 9 mmol/L (8-16); Aspartate Amino Transferase 35 U/L (17-59); Bilirubin,Total 0.5 mg/dL (0.2-1.3); Blood Urea Nitrogen 13 mg/dL (9-20); Calcium 9.1 mg/dL (8.4-10.2); Carbon Dioxide 27 mmol/L (22-30); Chloride 100 mmol/L (98-107); Estimated CRCL calculation 90 ml/min; Estimated Glomerular Filt Rate > 60; Glucose 223 mg/dL (65-110); Lipase 151 U/L (23-300); Potassium 4.2 mmol/L (3.4-5.0); Sodium 136 mmol/L (137-145)
[2021-05-30 18:22] LABS: Add Urine Microscopic? YES; Appearance Urine Clear (Clear); Bilirubin Urine Negative (Negative); Blood Urine Negative (Negative); Color Urine Straw (Yellow); Glucose Urine UA 1+ mg/dL (Negative); Ketones Urine Negative (Negative); Leukocyte Esterase Ur Negative LEU/UL (Negative); Mucus Urine Rare /lpf; Nitrate Urine Negative (Negative); Protein Urine Negative (Negative); RBC Urine 0-2 /hpf (0-2); Urobilinogen Urine Negative mg/dL (<2.0); WBC Urine 0-3 /hpf
== END 2021-05-30 18:44 | disposition home or self-care (01) ==
PROVIDERS: Emergency Provider Emergency Medicine
DX: R10.32 Left lower quadrant pain (principal); E11.9 Type 2 diabetes mellitus without complications; Z90.49 Acquired absence of other specified parts of digestive tract; Z79.4 Long term (current) use of insulin
CPT/HCPCS: 36415; 74177; 80053; 81001; 83690; 85025; 96361; 96374; 96375; 96376; 99284; J2270; J2405; J7030; Q9967

== ENCOUNTER 2021-07-18 18:35 | Observation (INO) | payer OTHER, SELFPAY ==
--- NOTE | ~2021-07-18 | CT_ITS ---
EXAMINATION: CT abdomen pelvis w con DATE: 07/18/2021 19:43 INDICATION: Abdominal pain TECHNIQUE: Computed tomography (CT) of the abdomen and pelvis was performed with 100 cc Omnipaque 350 intravenous contrast. The dose-length product was 832.75 mGy-cm. Automated exposure control and iter ative reconstruction technique were employed. COMPARISON: CT dated 05/30/2021. FINDINGS: There is right basilar atelectasis. Heart size is normal. No significant pleural or pericar dial effusion. Status post cholecystectomy. The infiltration of the liver. The spleen, pancreas, adre nal glands and kidneys are unremarkable. There are fluid-filled distended small bowel loops throughou t the abdomen with multiple air-fluid levels. Small fat-containing umbilical hernia. There is colonic anastomosis in the pelvis. There are surgical clips in the left inguinal region, likely from prior h ernia repair. No free air or free fluid. No acute osseous abnormality. IMPRESSION: 1. Distended fluid-filled small bowel loops throughout the abdomen without transition point, most lik gage enteritis or ileus. 2: Fatty infiltration of the liver. Reviewed, dictated and finalized at location A. [facility] IMPRESSION: 1. Distended fluid-filled small bowel loops throughout the abdomen without ceja sition point, most likely enteritis or ileus. 2: Fatty infiltration of the liver.
--- NOTE | ~2021-07-18 | XR_ITS ---
EXAMINATION: XR abdomen obstructive series DATE: 07/19/2021 07:46 INDICATION: Abdominal pain TECHNIQUE: Upright and supine views of the abdomen were obtained. COMPARISON: 07/18/2021 FINDINGS: The nasogastric tube is in the stomach. There are mildly dilated small bowel loops of the r ight abdomen. Gas is present in the colon to the level of the rectum. No free intraperitoneal gas is identified. Cholecystectomy clips are noted. Contrast from yesterday's CT examination partially opaci fies the urinary bladder. There are changes of left inguinal hernia repair. IMPRESSION: 1. Mildly dilated small bowel of the right abdomen, likely ileus. Reviewed, dictated and finalized at location A. NE PIPEFITTER HELPER
--- NOTE | ~2021-07-18 | XR_ITS ---
EXAMINATION: XR abdomen NG/feed tube insert INDICATION: Nasogastric tube placement TECHNIQUE: Portable AP KUB-NG at 0334 hours COMPARISON: CT from yesterday FINDINGS: The nasogastric tube is in the stomach. Mildly dilated epigastric small bowel is again note d. There is mild atelectasis of the lung bases. Cholecystectomy clips are noted. IMPRESSION: 1. Nasogastric tube in the stomach. Reviewed, dictated and finalized at location A. AND STOCKING [employer]ER
[2021-07-18 18:45] VITALS: BP 141/91; PULSE 100; RESP 16; TEMP 36.8; O2SAT 100
[2021-07-18 19:14] LABS: Basophils Percent Auto 0.5 % (0.2-1.2); Eosinophils Absolute Auto 0.1 K/mm3 (0-0.3); Eosinophils Percent Auto 0.8 % (0-4.4); Hematocrit 41.7 % (42.0-52.0); Hemoglobin 14.4 g/dL (14.0-18.0); Immature Granulocyte Absolute 0.01 K/mm3 (0.00-0.031); Immature Granulocyte Percent A 0.2 % (0-0.5); Lymphocytes Absolute Auto 1.73 K/mm3 (0.9-3.2); Lymphocytes Percent Auto 28.5 % (18.3-44.2); Mean Corpuscular HGB Conc 34.5 g/dl (32-36); Mean Corpuscular Hemoglobin 27.7 pg (26-34); Mean Corpuscular Volume 80.2 fl (80-100); Mean Platelet Volume 9.3 fl (7.4-10.4); Monocytes Absolute Auto 0.4 K/mm3 (0.1-0.6); Monocytes Percent Auto 6.9 % (2.6-8.5); Neutrophils Absolute Auto 3.8 K/mm3 (1.3-6.7); Neutrophils Percent Auto 63.1 % (45.5-73.1); Platelet Count Result 227 k/mm3 (150-375); Red Cell Distribution Width 13.8 % (11.5-14.5); White Blood Count 6.1 K/mm3 (4.5-10.0)
--- NOTE | 2021-07-18 19:17 | ED.ABDPAIN ---
HPI - Abdominal Pain General Chief Complaint: Abdominal Pain Stated Complaint: abd pain Time Seen by Provider: 07/18/21 18:44 Source: RN notes reviewed History of Present Illness HPI narrative: Patient presents emergency room from home for abdominal pain. States abdominal pain began 2 days ago pain is located in left lower quadrant does not radiate. Described as sharp and stabbing. States is been associate with nausea vomiting. Denies any fevers or chills chest pain shortness of breath diarrhea or any other symptoms. States he has had numerous episodes of diverticulitis and feels similar. States he is not taking pain medication at home Related Data Home Medications Medication Instructions Recorded Confirmed escitalopram oxalate mg 07/18/21 glipizide mg 07/18/21 glipizide mg 07/18/21 modafinil mg 07/18/21 trazodone 07/18/21 Allergies Allergy/AdvReac Type Severity Reaction Status Date / Time gabapentin Allergy Unknown Verified 07/18/21 19:13 ketorolac [From Toradol] Allergy Unknown Verified 07/18/21 19:13 promethazine [From Phenergan] Allergy Unknown Verified 07/18/21 19:13 zolpidem [From Ambien] AdvReac Other Verified 07/18/21 19:13 Review of Systems Review of Systems: Gen.: Denies fevers or chills ENT: Denies congestion Respiratory: Denies shortness of breath or cough CV: Denies chest pain or palpitations GI: See HPI Musculoskeletal: Denies back pain or muscle pain Neuro: Denies numbness, tingling, weakness or focal weakness Skin: Denies rash Except as documented, all other systems reviewed and negative [facility] Past Medical History Medical History Depression Diabetes mellitus Diverticulitis History of small bowel obstruction PTSD (post-traumatic stress disorder) Surgical History Surgical History H/O hand surgery History of ankle surgery right History of appendectomy Laparoscopic appendectomy History of colon resection Sigmoid colon resection for diverticulitis 6-7 years ago in [place] History of exploratory laparotomy Ex lap with adhesiolysis for small bowel obstruction 3-4 years ago in [place]. History of Ludmila fundoplication Laparoscopic Hx of cholecystectomy Laparoscopic cholecystectomy Family History Family History Father Heart disease Social History Social History Social History: the patient is engaged. he has a son. He does not have a durable power agency service coordinator for healthcare poa and he is full code. He denies any alcohol or illicit drug use. 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 Smoking status: Never smoker Alcohol intake: never Substance use: never Substance use type: does not use Gender identity (if verbalized by the patient): Male Spiritual care concerns: No Exam Narrative: APPEARANCE: No acute distress, nontoxic, resting in bed HEENT: Normocephalic, atraumatic, OMM RESPIRATORY: No respiratory distress, clear to auscultation bilaterally with no rhonchi wheezing or rales CARDIOVASCULAR: RRR s murmur ABDOMINAL: Soft nondistended tender palpation left lower quadrant with mild tenderness left upper quadrant right lower quadrant no rebound or guard MUSCULOSKELETAl: Moves all extremities. No clubbing, cyanosis or edema. NEURO: Awake and alert. Following commands, speech normal, no focal deficits SKIN:: Warm, dry. Normal Color PSYCHIATRIC: Normal affect/mood Course Course Emergency Course: Reviewed old records patient with history of bowel obstructions and ileus Patient continued to have abdominal pain and nausea meds will be given Talked with Dr. Jin presentation work-up agrees with consult Discussed with Dr. Hood presentation work-up agrees with admission at this time Discussed with patient and family results o
[2021-07-18 19:24] LABS: Alanine Aminotransferase 53 U/L (4-50); Albumin Level 4.5 g/dL (3.5-5.1); Alkaline Phosphatase 81 U/L (38-126); Anion Gap 10 mmol/L (8-16); Aspartate Amino Transferase 43 U/L (17-59); Bilirubin,Total 0.4 mg/dL (0.2-1.3); Blood Urea Nitrogen 13 mg/dL (9-20); Calcium 9.1 mg/dL (8.4-10.2); Carbon Dioxide 24 mmol/L (22-30); Chloride 98 mmol/L (98-107); Estimated CRCL calculation 90 ml/min; Estimated Glomerular Filt Rate > 60; Glucose 290 mg/dL (65-110); Lipase 116 U/L (23-300); Potassium 4.1 mmol/L (3.4-5.0); Sodium 132 mmol/L (137-145)
[2021-07-18] MEDS: ONDANSETRON INJ 4 MG/2 ML VIAL IV PUSH (19:24)
[2021-07-18] MEDS: MORPHINE SULFATE (*CRX) 4 MG/ML INJ IV PUSH ×2 (19:24→22:38)
[2021-07-18 19:27] VITALS: BP 137/83; PULSE 99; RESP 14; O2SAT 98
[2021-07-18] MEDS: SODIUM CHLORIDE 0.9% IV 1,000 ML 999 ML IV CONT ×2 (19:27→20:29)
--- NOTE | 2021-07-18 19:29 | PC.NURSE ---
pt states unable to provide urine sample at this time.
[2021-07-18 19:56] LABS: Add Urine Microscopic? YES; Appearance Urine Clear (Clear); Bilirubin Urine Negative (Negative); Blood Urine Negative (Negative); Color Urine Straw (Yellow); Glucose Urine UA 3+ mg/dL (Negative); Ketones Urine Negative (Negative); Leukocyte Esterase Ur Negative LEU/UL (Negative); Nitrate Urine Negative (Negative); Protein Urine Negative (Negative); RBC Urine 0-2 /hpf (0-2); Specific Grav Ur 1.026 (1.001-1.035); Squamous Epithelial Cell Urine Rare /hpf (Few); Urobilinogen Urine Negative mg/dL (<2.0); WBC Urine 0-3 /hpf
[2021-07-18] MEDS: MORPHINE SULFATE (*CRX) 2 MG/ML INJ IV PUSH (20:29)
[2021-07-18 21:13] VITALS: BP 135/85; PULSE 99; RESP 16; O2SAT 99
--- NOTE | 2021-07-18 21:14 | PM.IMHP ---
H&P: HPI History of Present Illness Date/Time: 07/18/21 21:14 Chief Complaint: Abdominal pain Narrative: This is a 51-year-old male with past medical history significant for Ludmila fundoplication, multiple abdominal surgeries secondary to diverticulitis with partial colectomy, multiple hernia repairs, recurrent small-bowel obstruction, adhesions, type 2 diabetes mellitus. Patient presents to the emergency room today due to abdominal pain diffuse but mostly localized to the left lower quadrant nausea and dry heaving this has been going on since Thursday he has not been able to eat or drink has been passing small amount of stool he denies any fevers rigors or chills he has been in his usual state of health up until days denies any cough any sputum production any shortness of breath. Preliminary workup was significant for CT of abdomen and pelvis with distended fluid-filled small bowel loops throughout the abdomen without transition point, most likely enteritis or ileus, fatty infiltration of the liver. Review of Systems Review of Systems: Nausea, dry heaving, abdominal pain, constipation. Constitutional: Constitutional: Denies chills, Denies fever(s), Denies malaise, Reports poor appetite and Denies weakness Eyes: Eyes: Denies change in vision ENT: Denies dysphagia, Denies vertigo, Denies dizziness, Denies nasal congestion, Denies nasal discharge, Denies nasal obstruction and Denies odynophagia Cardiovascular: Cardiovascular: Denies edema, Denies irregular heart rhythm, Denies claudication, Denies lightheadedness, Denies radiating jaw, neck or arm pain, Denies palpitations, Denies dyspnea, Denies dyspnea on exertion and Denies orthopnea Respiratory: Respiratory: Denies cough and Denies dyspnea Gastrointestinal: Gastrointestinal: Reports abdominal pain, Denies melena, Denies hematochezia, Reports change in stool character (Passing small amount), Reports GI cramping, Denies dyspepsia, Denies heartburn, Reports nausea and Denies vomiting Genitourinary: Genitourinary: Denies dysuria and Denies flank pain Musculoskeletal: Musculoskeletal: Denies arthralgias and Denies joint swelling Integumentary/Breasts: Skin/Breast: Denies rash Neurologic: Denies vertigo, Denies dizziness, Denies focal weakness and Denies Sensory deficit (Neuro) Psychiatric: Psychiatric: Reports no additional psychiatric complaints and Reports as per HPI Endocrine: Endocrine: Reports no additional endocrine complaints and Reports as per HPI Hematologic/Lymphatic: Hematologic/Lymphatic: Reports no additional hematologic/lymphatic complaints and Reports as per HPI Allergic/Immunologic: Allergic/Immunologic: Reports no additional allergic/immunologic complaints and Reports as per HPI PMFSH Past Medical History Medical History (Updated 07/18/21 @ 21:24 by Blu Guadarrama DO) Depression Diabetes mellitus Diverticulitis History of small bowel obstruction PTSD (post-traumatic stress disorder) Surgical History Surgical History (Updated 07/19/21 @ 02:47 by Troy Squires MD) H/O hand surgery History of ankle surgery right History of appendectomy Laparoscopic appendectomy History of colon resection Sigmoid colon resection for diverticulitis 6-7 years ago in [place] History of exploratory laparotomy Ex lap with adhesiolysis for small bowel obstruction 3-4 years ago in [place]. History of Ludmila fundoplication Laparoscopic Hx of cholecystectomy Laparoscopic cholecystectomy Family History Family History (Updated 07/18/21 @ 23:02 by Robert Cantrell RN) Father Heart disease Grandparent Lung cancer Social History Social History Social History: the patient is engaged. he has a son. He does not have a durable power collection development librarian for healthcare poa and he is full code. He denies any alcohol or illicit drug use. 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 Smoking status: Never smoker
[2021-07-18 22:37] VITALS: BMI 29.1
[2021-07-18 22:38] VITALS: BP 141/82; PULSE 82; RESP 16; TEMP 36.6; O2SAT 99
[2021-07-18] MEDS: SODIUM CHLORIDE 0.9% IV 1,000 ML 125 ML IV CONT (22:43)
--- NOTE | 2021-07-18 22:45 | ADMGEN ---
This patient, Erich Allen, was admitted to Medical Room 349-01. Patient/family oriented to hospital policies and general routines including ID bracelet, bed and alarms, visiting hours, pain management, procedures, bathroom and other care routines, personal items, smoking policy, room service/diet, and visiting hours. Information on how to activate the Rapid Response Team has been discussed. Patient/Family are encouraged to report perceived risks to care and to ask questions if they do not understand what they are told or what they should do.
[2021-07-18] MEDS: LORazepam INJ (*CRX) 2 MG/ML VIAL 1 MG IV PUSH (23:43)
[2021-07-19] MEDS: MORPHINE SULFATE (*CRX) 4 MG/ML INJ IV PUSH ×4 (00:40→08:20)
[2021-07-19] MEDS: ONDANSETRON INJ 4 MG/2 ML VIAL IV PUSH (00:43)
[2021-07-19 03:02] VITALS: BP 130/85; PULSE 78; RESP 17; TEMP 36; O2SAT 97
[2021-07-19 06:27] LABS: Basophils Percent Auto 0.4 % (0.2-1.2); Eosinophils Absolute Auto 0.1 K/mm3 (0-0.3); Hematocrit 38.5 % (42.0-52.0); Hemoglobin 12.9 g/dL (14.0-18.0); Lymphocytes Absolute Auto 1.42 K/mm3 (0.9-3.2); Lymphocytes Percent Auto 30.8 % (18.3-44.2); Mean Corpuscular HGB Conc 33.5 g/dl (32-36); Mean Corpuscular Hemoglobin 26.5 pg (26-34); Mean Corpuscular Volume 79.1 fl (80-100); Mean Platelet Volume 9.1 fl (7.4-10.4); Monocytes Absolute Auto 0.4 K/mm3 (0.1-0.6); Monocytes Percent Auto 8.2 % (2.6-8.5); Neutrophils Absolute Auto 2.7 K/mm3 (1.3-6.7); Neutrophils Percent Auto 58.6 % (45.5-73.1); Platelet Count Result 196 k/mm3 (150-375); Red Blood Count 4.87 M/mm3 (4.6-6.20); Red Cell Distribution Width 13.8 % (11.5-14.5); White Blood Count 4.6 K/mm3 (4.5-10.0)
[2021-07-19 06:38] LABS: Alanine Aminotransferase 107 U/L (4-50); Albumin Level 3.8 g/dL (3.5-5.1); Alkaline Phosphatase 73 U/L (38-126); Anion Gap 6 mmol/L (8-16); Aspartate Amino Transferase 185 U/L (17-59); Bilirubin,Total 0.5 mg/dL (0.2-1.3); Blood Urea Nitrogen 8 mg/dL (9-20); Calcium 8.1 mg/dL (8.4-10.2); Carbon Dioxide 27 mmol/L (22-30); Chloride 101 mmol/L (98-107); Estimated CRCL calculation 100 ml/min; Estimated Glomerular Filt Rate > 60; Glucose 178 mg/dL (65-110); Potassium 3.8 mmol/L (3.4-5.0); Sodium 134 mmol/L (137-145)
[2021-07-19 08:07] LABS: Glucose Point of Care 160 mg/dl (65-105)
[2021-07-19] MEDS: SODIUM CHLORIDE 0.9% IV 1,000 ML 100 ML IV CONT (08:15)
[2021-07-19] MEDS: PANTOPRAZOLE SODIUM IV 40 MG VIAL IV PUSH (08:17)
--- NOTE | 2021-07-19 10:35 | PM.CNGS ---
Assessment and Plan Assessment and plan (1) Ileus: Code(s): K56.7 - Ileus, unspecified Status: Acute Assessment and Plan: exam bengin, will clamp NG, possibly d/c NG later today and slowly advance diet as tolerated, home if tolerating diet (2) Diabetes mellitus: Code(s): E11.9 - Type 2 diabetes mellitus without complications Status: Acute Assessment and Plan: management per primary, maybe contributing factor to ileus History of Present Illness Consult details Consult date: 07/19/21 Reason for consult: abdominal pain Requesting physician: Troy Squires MD Narrative: The patient is a 51-year-old male with multiple medical issues, including diabetes, presenting to the emergency department complaining of severe abdominal pain, anorexia, nausea and vomiting. The patient reports that the symptoms have been ongoing and worsening over the last 2-3 days. Patient reports that he has been having bowel movements, although they are less than usual. The patient reports that he has had an extensive history of previous abdominal surgeries and small-bowel obstruction. Review of Systems Constitutional: Constitutional: Reports anorexia, Denies chills, Reports fatigue, Denies fever(s), Reports lethargy, Denies malaise, Reports poor appetite, Reports weakness, Denies weight gain and Denies weight loss Eyes: Eyes: Reports no additional eye complaints ENT: Reports system reviewed and no additional complaints, except as documented Cardiovascular: Cardiovascular: Reports no additional cardiovascular complaints Respiratory: Respiratory: Reports no additional respiratory complaints Gastrointestinal: Gastrointestinal: Reports as per HPI, Reports abdominal pain, Reports belching, Reports bloating, Reports change in bowel habits, Reports change in stool character, Denies constipation, Reports GI cramping, Denies excessive flatus, Reports early satiety, Denies diarrhea, Denies loose stools, Reports nausea and Reports vomiting Genitourinary: Genitourinary: Reports no additional male genitourinary complaints Musculoskeletal: Musculoskeletal: Reports no additional musculoskeletal complaints Integumentary/Breasts: Skin/Breast: Reports system reviewed and no additional complaints, except as docu Neurologic: Reports system reviewed and no additional complaints, except as documented Psychiatric: Psychiatric: Reports no additional psychiatric complaints Endocrine: Endocrine: Reports no additional endocrine complaints Hematologic/Lymphatic: Hematologic/Lymphatic: Reports no additional hematologic/lymphatic complaints Allergic/Immunologic: Allergic/Immunologic: Reports no additional allergic/immunologic complaints PMFSH Past Medical History Medical History Depression Diabetes mellitus Diverticulitis History of small bowel obstruction PTSD (post-traumatic stress disorder) Surgical History Surgical History H/O hand surgery History of ankle surgery right History of appendectomy Laparoscopic appendectomy History of colon resection Sigmoid colon resection for diverticulitis 6-7 years ago in [place] History of exploratory laparotomy Ex lap with adhesiolysis for small bowel obstruction 3-4 years ago in [place]. History of Ludmila fundoplication Laparoscopic Hx of cholecystectomy Laparoscopic cholecystectomy Family History Family History Father Heart disease Grandparent Lung cancer Social History Social History Social History: the patient is engaged. he has a son. He does not have a durable power commercial real estate attorney for healthcare poa and he is full code. He denies any alcohol or illicit drug use. 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 Smoking status: Never smoker Alcohol intake: n
--- NOTE | 2021-07-19 11:06 | PC.NURSE ---
Patient asking for papers to leave AMA at this time. Dr Harris notified. Patients NG tube removed as well as patients IV. AMA paperwork signed.
--- NOTE | 2021-07-19 15:11 | PM.IMPN ---
Progress Note: A&P Assessment and Plan (1) Small bowel obstruction: Code(s): K56.609 - Unspecified intestinal obstruction, unspecified as to partial versus complete obstruction Status: Acute Assessment and Plan: ADMIT TO REGULAR MEDICAL FLOOR NPO NG TO LOW INTERMITTENT SUCTION SUPPORTIVE CARE SURGERY CONSULT 07/19/2021 Interval History: patient with history of recurrent small-bowel obstruction presented with abdominal pain and nausea, CT scan of abdomen showed small-bowel obstruction however patient clinically symptoms are improving he was seen by General surgery recommended to clamp NG tube for 2 hours and monitor the patient further recommendation to follow. will continue to monitor (2) Diabetes mellitus: Code(s): E11.9 - Type 2 diabetes mellitus without complications Status: Acute Assessment and Plan: ACCU-CHEKS Q.6 HOURS INSULIN SLIDING SCALE NEEDED (3) Nausea and vomiting: Code(s): R11.2 - Nausea with vomiting, unspecified Status: Acute Assessment and Plan: SUPPORTIVE CARE (4) History of exploratory laparotomy: Code(s): Z98.890 - Other specified postprocedural states Status: Inactive Assessment and Plan: UNCHANGED (5) History of colon resection: Code(s): Z90.49 - Acquired absence of other specified parts of digestive tract Status: Acute Assessment and Plan: UNCHANGED (6) PTSD (post-traumatic stress disorder): Code(s): F43.10 - Post-traumatic stress disorder, unspecified Status: Chronic Assessment and Plan: UNCHANGED Subjective Date/time seen: 07/19/21 15:11 Chief Complaint: Abdominal pain Narrative: This is a 51-year-old male with past medical history significant for Ludmila fundoplication, multiple abdominal surgeries secondary to diverticulitis with partial colectomy, multiple hernia repairs, recurrent small-bowel obstruction, adhesions, type 2 diabetes mellitus. Patient presents to the emergency room today due to abdominal pain diffuse but mostly localized to the left lower quadrant nausea and dry heaving this has been going on since Thursday he has not been able to eat or drink has been passing small amount of stool he denies any fevers rigors or chills he has been in his usual state of health up until days denies any cough any sputum production any shortness of breath. Preliminary workup was significant for CT of abdomen and pelvis with distended fluid-filled small bowel loops throughout the abdomen without transition point, most likely enteritis or ileus, fatty infiltration of the liver. 07/19/2021 Interval History: patient with history of recurrent small-bowel obstruction presented with abdominal pain and nausea, CT scan of abdomen showed small-bowel obstruction however patient clinically symptoms are improving he was seen by General surgery recommended to clamp NG tube for 2 hours and monitor the patient further recommendation to follow. will continue to monitor Review of Systems Review of Systems: All systems reviewed & are unremarkable except as noted in HPI and below Exam Narrative: Patient is comfortable, NAD HEENT: eyes are clear and none icteric LUNGS:CTA HEART: RR S1S2 ABD: bowel sounds are faint diffusely tender Lower extremities: no edema SKIN: nonjaundiced Neuro: grossly intact. Objective Data Vital Signs Vital Signs: Vital Signs - 24 hr 07/18/21 18:45 07/18/21 19:27 07/18/21 21:13 Temperature 98.3 F Pulse Rate 100 99 99 Respiratory Rate 16 14 16 Blood Pressure 141/91 H 137/83 135/85 Pulse Oximetry 100 98 99 07/18/21 22:38 07/19/21 03:02 Temperature 97.8 F 96.8 F L Pulse Rate 82 78 Respiratory Rate 16 17 Blood Pressure 141/82 H 130/85 Pulse Oximetry 99 97 Intake/Output Intake/Output: Intake & Output 07/16/21 07/17/21 07/18/21 07/19/21 23:59 23:59 23:59 23:59 Intake Total 1999 1000 Output Total 250 Balance 1999 750 Meds/Resul
--- NOTE | 2021-07-19 15:54 | PM.DS ---
DS: Admitting Diagnosis Discharge Date 07/19/21 Admitting Diagnosis abdominal pain DS: Discharge Diagnosis Discharge Diagnosis (1) Small bowel obstruction: Code(s): K56.609 - Unspecified intestinal obstruction, unspecified as to partial versus complete obstruction Status: Acute Assessment and Plan: ADMIT TO REGULAR MEDICAL FLOOR NPO NG TO LOW INTERMITTENT SUCTION SUPPORTIVE CARE SURGERY CONSULT 07/19/2021 Interval History: patient with history of recurrent small-bowel obstruction presented with abdominal pain and nausea, CT scan of abdomen showed small-bowel obstruction however patient clinically symptoms are improving he was seen by General surgery recommended to clamp NG tube for 2 hours and monitor the patient further recommendation to follow. will continue to monitor (2) Diabetes mellitus: Code(s): E11.9 - Type 2 diabetes mellitus without complications Status: Acute Assessment and Plan: ACCU-CHEKS Q.6 HOURS INSULIN SLIDING SCALE NEEDED (3) Nausea and vomiting: Code(s): R11.2 - Nausea with vomiting, unspecified Status: Acute Assessment and Plan: SUPPORTIVE CARE (4) History of exploratory laparotomy: Code(s): Z98.890 - Other specified postprocedural states Status: Inactive Assessment and Plan: UNCHANGED (5) History of colon resection: Code(s): Z90.49 - Acquired absence of other specified parts of digestive tract Status: Acute Assessment and Plan: UNCHANGED (6) PTSD (post-traumatic stress disorder): Code(s): F43.10 - Post-traumatic stress disorder, unspecified Status: Chronic Assessment and Plan: UNCHANGED DS: Summary Hospital Course Reason for hospitalization: Chief Complaint: Abdominal pain Narrative: This is a 51-year-old male with past medical history significant for Ludmila fundoplication, multiple abdominal surgeries secondary to diverticulitis with partial colectomy, multiple hernia repairs, recurrent small-bowel obstruction, adhesions, type 2 diabetes mellitus. Patient presents to the emergency room today due to abdominal pain diffuse but mostly localized to the left lower quadrant nausea and dry heaving this has been going on since Thursday he has not been able to eat or drink has been passing small amount of stool he denies any fevers rigors or chills he has been in his usual state of health up until days denies any cough any sputum production any shortness of breath. Preliminary workup was significant for CT of abdomen and pelvis with distended fluid-filled small bowel loops throughout the abdomen without transition point, most likely enteritis or ileus, fatty infiltration of the liver. Hospital Course: 07/19/2021 Interval History: patient with history of recurrent small-bowel obstruction presented with abdominal pain and nausea, CT scan of abdomen showed small-bowel obstruction however patient clinically symptoms are improving he was seen by General surgery recommended to clamp NG tube for 2 hours and monitor the patient further recommendation to follow. will continue to monitor later in the day patient left AMA Time Spent with Patient Time attestation: Total time spent providing and/or coordinating discharge services: Left AMA DS: Data Data Completed and Pending Labs on day of discharge: Labs from last 24 hours 07/19/21 07/19/21 07/19/21 08:04 06:21 06:21 WBC 4.6 RBC 4.87 Hgb 12.9 L Hct 38.5 L MCV 79.1 L MCH 26.5 MCHC 33.5 RDW 13.8 Plt Count 196 MPV 9.1 Immature Gran % (Auto) 0.0 Neut % (Auto) 58.6 Lymph % (Auto) 30.8 [place] % (Auto) 8.2 Eos % (Auto) 2.0 Baso % (Auto) 0.4 Lymph # (Auto) 1.42 [place] # (Auto) 0.4 Eos # (Auto) 0.1 Baso # (Auto) 0.0 Abs Immat Gran (auto) 0.00 Absolute Neuts (auto) 2.7 Absolute Nucleated RBC 0.0 Nucleated RBC % 0.0 Sodium 134 L Potassium 3.8 Chloride 101 Car
== END 2021-07-19 11:17 | disposition left against medical advice (07) ==
LOC: ANHED 21:24 → ANH3MED 23:03
PROVIDERS: Admitting Provider Internal Medicine; Emergency Provider Emergency Medicine; PCP Family Medicine; Visit Provider Family Medicine
DX: K56.7 Ileus, unspecified (principal); R10.32 Left lower quadrant pain; R11.2 Nausea with vomiting, unspecified; E11.9 Type 2 diabetes mellitus without complications; F43.10 Post-traumatic stress disorder, unspecified; Z90.49 Acquired absence of other specified parts of digestive tract; Z79.84 Long term (current) use of oral hypoglycemic drugs
CPT/HCPCS: 36415; 74019; 74177; 80053; 81001; 82948; 83690; 85025; 96361; 96374; 96375; 96376; 99285; C9113; G0378; J2060; J2270; J2405; J7030; Q9967

== ENCOUNTER 2021-10-19 17:33 | Emergency (ER) | payer OTHER, SELFPAY ==
--- NOTE | ~2021-10-19 | CT_ITS ---
EXAMINATION: CT abdomen pelvis w con INDICATION: Abdominal pain TECHNIQUE: Computed tomographic images of the abdomen and pelvis were obtained after the administrati on of 100 cc of Omnipaque 350 intravenous contrast. The dose-length product (DLP) was 1148.93 mGy-cm. Automated exposure control and iterative reconstruction technique were employed. COMPARISON: 07/18/2021 FINDINGS: Minimal dependent atelectasis is present in the lung bases. The heart size is normal. The g allbladder is surgically absent. The liver, spleen, pancreas, and adrenal glands are normal. The kidn eys are unremarkable. No pathologically enlarged abdominal or pelvic lymph nodes are identified. Ther e is no free intraperitoneal gas or evidence of bowel obstruction. There is a fat-containing umbilica l hernia. There are also small fat-containing hernias adjacent to the umbilicus. A surgical anastomos is is noted in the rectosigmoid colon. There is mild circumferential wall thickening of the urinary b ladder, likely reflecting cystitis or chronic outlet obstruction. There is mild lumbar spondylosis. IMPRESSION: 1. No CT correlate for the patient's symptoms. Reviewed, dictated and finalized at location F. [employer]
[2021-10-19 17:35] VITALS: BP 149/79; PULSE 87; RESP 16; TEMP 36.4; O2SAT 100
[2021-10-19 18:02] LABS: Basophils Percent Auto 0.5 % (0.2-1.2); Eosinophils Absolute Auto 0.1 K/mm3 (0-0.3); Eosinophils Percent Auto 1.2 % (0-4.4); Hemoglobin 13.9 g/dL (14.0-18.0); Immature Granulocyte Absolute 0.01 K/mm3 (0.00-0.031); Immature Granulocyte Percent A 0.2 % (0-0.5); Lymphocytes Absolute Auto 2.06 K/mm3 (0.9-3.2); Lymphocytes Percent Auto 34.4 % (18.3-44.2); Mean Corpuscular HGB Conc 33.1 g/dl (32-36); Mean Corpuscular Hemoglobin 26.8 pg (26-34); Mean Corpuscular Volume 81.1 fl (80-100); Mean Platelet Volume 8.9 fl (7.4-10.4); Monocytes Absolute Auto 0.4 K/mm3 (0.1-0.6); Monocytes Percent Auto 6.5 % (2.6-8.5); Neutrophils Absolute Auto 3.4 K/mm3 (1.3-6.7); Neutrophils Percent Auto 57.2 % (45.5-73.1); Platelet Count Result 240 k/mm3 (150-375); Red Blood Count 5.18 M/mm3 (4.6-6.20); Red Cell Distribution Width 13.6 % (11.5-14.5)
--- NOTE | 2021-10-19 18:07 | PC.NURSE ---
Patient given urinal states he might be able to urinate later.
[2021-10-19 18:15] LABS: Alanine Aminotransferase 35 U/L (4-50); Albumin Level 4.4 g/dL (3.5-5.1); Alkaline Phosphatase 71 U/L (38-126); Anion Gap 8 mmol/L (8-16); Aspartate Amino Transferase 32 U/L (17-59); Bilirubin,Total 0.4 mg/dL (0.2-1.3); Blood Urea Nitrogen 10 mg/dL (9-20); Calcium 8.8 mg/dL (8.4-10.2); Carbon Dioxide 26 mmol/L (22-30); Chloride 101 mmol/L (98-107); Estimated CRCL calculation 81 ml/min; Estimated Glomerular Filt Rate > 60; Glucose 218 mg/dL (65-110); Lipase 195 U/L (23-300); Potassium 3.8 mmol/L (3.4-5.0); Sodium 135 mmol/L (137-145)
[2021-10-19] MEDS: MORPHINE SULFATE (*CRX) 2 MG/ML INJ IV PUSH (18:21)
[2021-10-19] MEDS: ONDANSETRON INJ 4 MG/2 ML VIAL IV PUSH (18:21)
[2021-10-19] MEDS: SODIUM CHLORIDE 0.9% IV 1,000 ML 999 ML IV CONT (18:22)
[2021-10-19 19:14] LABS: Add Urine Microscopic? YES; Appearance Urine Clear (Clear); Bacteria Urine Trace /hpf; Bilirubin Urine Negative (Negative); Blood Urine Negative (Negative); Color Urine Yellow (Yellow); Glucose Urine UA 1+ mg/dL (Negative); Ketones Urine Negative (Negative); Leukocyte Esterase Ur Negative LEU/UL (Negative); Mucus Urine Rare /lpf; Nitrate Urine Negative (Negative); Protein Urine Negative (Negative); RBC Urine 0-2 /hpf (0-2); Specific Grav Ur 1.019 (1.001-1.035); WBC Urine 0-3 /hpf
--- NOTE | 2021-10-19 19:21 | PC.NURSE ---
Patient report received from YENNY Weston. This nurse assumed care of patient at this time. Patient being taken to CT via stretcher.
[2021-10-19 19:35] VITALS: BP 148/85; PULSE 81; RESP 17; O2SAT 98
[2021-10-19] MEDS: HYDROmorphone HCL INJ (*CRX) 1 MG/ML SYR 0.5 MG IV PUSH (19:37)
[2021-10-19 19:52] VITALS: O2SAT 97
--- NOTE | 2021-10-19 21:35 | ED.ABDPAIN ---
HPI - Abdominal Pain General Chief Complaint: Abdominal Pain <Catalina Montanez APRN - Last Filed: 10/20/21 20:45> Stated Complaint: abd pain <Catalina Montanez APRN - Last Filed: 10/20/21 20:45> Time Seen by Provider: 10/19/21 18:07 <Catalina Montanez APRN - Last Filed: 10/20/21 20:45> Source: patient <Catalina Montanez APRN - Last Filed: 10/20/21 20:45> Mode of arrival: ambulatory <Catalina Montanez APRN - Last Filed: 10/20/21 20:45> History of Present Illness HPI narrative: 51 year old male presents with abdominal pain and nausea for 4 days. Patient with history of GI issues and sees Dr. ONTIVEROS. MRI scheduled on November 15. Patient has history of SBO and was concerned. Patietnt states he has not had a bm in 4 days. <Catalina Montanez APRN - Last Filed: 10/20/21 20:45> Related Data Home Medications: Home Medications Medication Instructions Recorded Confirmed escitalopram oxalate 20 mg PO DAILY 07/18/21 07/18/21 glipizide 10 mg PO DAILY 07/18/21 07/18/21 modafinil 100 mg PO DAILY PRN 07/18/21 07/18/21 trazodone 100 mg PO HS 07/18/21 07/18/21 dulaglutide [Trulicity] mg SUBCUT 10/19/21 dulaglutide [Trulicity] mg SUBCUT 10/19/21 empagliflozin [Jardiance] mg 10/19/21 <Catalina Montanez APRN - Last Filed: 10/20/21 20:45> Allergies/Adverse Reactions: Allergies Allergy/AdvReac Type Severity Reaction Status Date / Time gabapentin Allergy Unknown Verified 10/19/21 17:38 ketorolac [From Toradol] Allergy Unknown Verified 10/19/21 17:38 promethazine [From Phenergan] Allergy Unknown Verified 10/19/21 17:38 zolpidem [From Ambien] AdvReac Other Verified 10/19/21 17:38 <Catalina Montanez APRN - Last Filed: 10/20/21 20:45> Review of Systems Review of Systems: CONSTITUTIONAL: Denies fever, chills, or sweats. EYES: Denies visual changes, redness, or discharge. ENT: Denies rhinorrhea, congestion, sore throat, or otalgia. CARDIOVASCULAR: Denies chest pain, palpitations, or edema. RESPIRATORY: Denies cough or dyspnea. GASTROINTESTINAL: Positive for abdominal pain, nausea, and constipation. denies or diarrhea. GENITOURINARY: Denies dysuria or hematuria. SKIN: Denies rash or itching. MUSCULOSKELETAL: Denies back pain, joint pain, or myalgia. NEUROLOGIC: Denies headache, numbness, dizziness, or weakness. PSYCHIATRIC: Denies anxiety or depression. <Catalina Montanez APRN - Last Filed: 10/20/21 20:45> [facility] Past Medical History Medical History: Medical History Depression Diabetes mellitus Diverticulitis History of small bowel obstruction PTSD (post-traumatic stress disorder) <Catalina Montanez APRN - Last Filed: 10/20/21 20:45> Surgical History Surgical History: Surgical History H/O hand surgery History of ankle surgery right History of appendectomy Laparoscopic appendectomy History of colon resection Sigmoid colon resection for diverticulitis 6-7 years ago in [place] History of exploratory laparotomy Ex lap with adhesiolysis for small bowel obstruction 3-4 years ago in [place]. History of Ludmila fundoplication Laparoscopic Hx of cholecystectomy Laparoscopic cholecystectomy <Catalina Montanez APRN - Last Filed: 10/20/21 20:45> Family History Family History: Family History Father Heart disease Grandparent Lung cancer <Catalina Montanez APRN - Last Filed: 10/20/21 20:45> Social History Social History: Social History Social History: the patient is engaged. he has a son. He does not have a durable power transactional attorney for healthcare poa and he is full code. He denies any alcohol or illicit drug use. 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 Smoking status: Never smoker Alcohol intake: never Substance use: never Substance use type:
[2021-10-19 22:01] VITALS: BP 144/86; PULSE 72; RESP 16; O2SAT 99
== END 2021-10-19 22:02 | disposition home or self-care (01) ==
PROVIDERS: Emergency Medicine; Emergency Provider Nurse Practitioner Family; PCP Family Medicine
DX: R10.84 Generalized abdominal pain (principal); E11.9 Type 2 diabetes mellitus without complications; F32.A Depression, unspecified; F43.10 Post-traumatic stress disorder, unspecified; Z79.899 Other long term (current) drug therapy; Z79.84 Long term (current) use of oral hypoglycemic drugs; Z90.49 Acquired absence of other specified parts of digestive tract
CPT/HCPCS: 36415; 74177; 80053; 81001; 83690; 85025; 96361; 96374; 96375; 99284; J1170; J2270; J2405; J7030; Q9967

== ENCOUNTER 2021-12-06 21:37 | Emergency (ER) | payer OTHER, SELFPAY ==
[2021-12-06] VITALS (10 sets, daily range): BP systolic 128–149; BP diastolic 87–102; PULSE 97; RESP 16; TEMP 36.9; O2SAT 95–100
--- NOTE | ~2021-12-06 | CT_ITS ---
EXAMINATION: CT abdomen pelvis w con DATE: 12/07/2021 00:30 INDICATION: Abdominal pain. Vomiting. TECHNIQUE: Computed tomography (CT) of the abdomen and pelvis was performed with 100 mL Omnipaque 350 intravenous contrast. Automated exposure control and iterative reconstruction technique were employe d. The dose-length product was 1079.70 mGy-cm. COMPARISON: CT abdomen and pelvis 10/19/2021 FINDINGS: The visualized portions of the lung bases demonstrate mild atelectasis and chronic lung dis ease. A calcified right lung nodule is consistent with old granulomatous disease. No pleural effusion . The heart size is normal. No pericardial effusion. There is diffuse hepatic steatosis. There are ch anges of cholecystectomy. The spleen, pancreas, adrenal glands, and kidneys are normal. There is an a nastomosis in the sigmoid colon. There are changes of appendectomy. There is dilated small bowel in r ight abdomen. There are no pathologically enlarged lymph nodes. There is no free intraperitoneal flui d. There is mild thoracolumbar spondylosis. IMPRESSION: 1. Dilated small bowel in right abdomen, likely adynamic ileus. Reviewed, dictated and finalized at location A.
[2021-12-06 22:01] LABS: Basophils Percent Auto 0.4 % (0.2-1.2); Eosinophils Absolute Auto 0.1 K/mm3 (0-0.3); Eosinophils Percent Auto 0.7 % (0-4.4); Hematocrit 45.1 % (42.0-52.0); Hemoglobin 14.7 g/dL (14.0-18.0); Immature Granulocyte Absolute 0.01 K/mm3 (0.00-0.031); Immature Granulocyte Percent A 0.1 % (0-0.5); Lymphocytes Absolute Auto 2.56 K/mm3 (0.9-3.2); Lymphocytes Percent Auto 35.8 % (18.3-44.2); Mean Corpuscular HGB Conc 32.6 g/dl (32-36); Mean Corpuscular Hemoglobin 26.8 pg (26-34); Mean Corpuscular Volume 82.1 fl (80-100); Mean Platelet Volume 8.9 fl (7.4-10.4); Monocytes Absolute Auto 0.4 K/mm3 (0.1-0.6); Monocytes Percent Auto 5.5 % (2.6-8.5); Neutrophils Absolute Auto 4.1 K/mm3 (1.3-6.7); Neutrophils Percent Auto 57.5 % (45.5-73.1); Platelet Count Result 285 k/mm3 (150-375); Red Blood Count 5.49 M/mm3 (4.6-6.20); Red Cell Distribution Width 13.8 % (11.5-14.5); White Blood Count 7.2 K/mm3 (4.5-10.0)
--- NOTE | 2021-12-06 22:11 | ED.ABDPAIN ---
HPI - Abdominal Pain General Chief Complaint: Abdominal Pain Stated Complaint: abd pain Time Seen by Provider: 12/06/21 21:47 Source: patient Mode of arrival: ambulatory Limitations: no limitations History of Present Illness HPI narrative: 51-year-old male presents emergency room complaining of abdominal pain with associated vomiting. Approximately 6 years ago patient had portion of his sigmoid colon resected secondary to diverticulitis. Since that time he had 2 episodes where he has developed a bowel obstruction and had to have NG tube inserted. States he began having pain and went to a walk-in clinic last Thursday. X-rays were obtained and stated that he had a lot of stool in his colon but no signs of any obvious obstruction at that time. He was told to take some milk of magnesia and he states he did have a small bowel movement on Thursday but no significant bowel movement since. But is been having episodes of vomiting. No blood in his vomitus. No chills or fevers. Is just diffuse abdominal pain associated with this. Related Data Home Medications Medication Instructions Recorded Confirmed escitalopram oxalate 20 mg PO DAILY 07/18/21 07/18/21 glipizide 10 mg PO DAILY 07/18/21 07/18/21 modafinil 100 mg PO DAILY PRN 07/18/21 07/18/21 trazodone 100 mg PO HS 07/18/21 07/18/21 dulaglutide [Trulicity] mg SUBCUT 10/19/21 dulaglutide [Trulicity] mg SUBCUT 10/19/21 empagliflozin [Jardiance] mg 10/19/21 Allergies Allergy/AdvReac Type Severity Reaction Status Date / Time gabapentin Allergy Unknown Verified 10/19/21 17:38 ketorolac [From Toradol] Allergy Unknown Verified 10/19/21 17:38 promethazine [From Phenergan] Allergy Unknown Verified 10/19/21 17:38 zolpidem [From Ambien] AdvReac Other Verified 10/19/21 17:38 Review of Systems Review of Systems: CONSTITUTIONAL: Denies fever, chills, or sweats. EYES: Denies visual changes, redness, or discharge. ENT: Denies rhinorrhea, congestion, sore throat, or otalgia. CARDIOVASCULAR: Denies chest pain, palpitations, or edema. RESPIRATORY: Denies cough or dyspnea. GASTROINTESTINAL: Abdominal pain with associated nausea and vomiting. Constipation. GENITOURINARY: Denies dysuria or hematuria. SKIN: Denies rash or itching. MUSCULOSKELETAL: Denies back pain, joint pain, or myalgia. NEUROLOGIC: Denies headache, numbness, or weakness. PSYCHIATRIC: Denies anxiety or depression. [facility] Past Medical History Medical History Depression Diabetes mellitus Diverticulitis History of small bowel obstruction PTSD (post-traumatic stress disorder) Surgical History Surgical History H/O hand surgery History of ankle surgery right History of appendectomy Laparoscopic appendectomy History of colon resection Sigmoid colon resection for diverticulitis 6-7 years ago in [place] History of exploratory laparotomy Ex lap with adhesiolysis for small bowel obstruction 3-4 years ago in [place]. History of Ludmila fundoplication Laparoscopic Hx of cholecystectomy Laparoscopic cholecystectomy Family History Family History Father Heart disease Grandparent Lung cancer Social History Social History Social History: the patient is engaged. he has a son. He does not have a durable power collections attorney for healthcare poa and he is full code. He denies any alcohol or illicit drug use. 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 Smoking status: Never smoker Alcohol intake: never Substance use: never Substance use type: does not use Gender identity (if verbalized by the patient): Male Spiritual care concerns: No Exam Narrative: APPEARANCE: Well appearing, no pain or distress, well-nourished. Head normocephalic and atraumatic. EYES: PERRLA/EOMI, conjunctivae very
[2021-12-06] MEDS: MORPHINE SULFATE (*CRX) 4 MG/ML INJ IV PUSH (22:15)
[2021-12-06] MEDS: ONDANSETRON INJ 4 MG/2 ML VIAL IV PUSH (22:15)
[2021-12-06] MEDS: fentaNYL CITRATE INJ (*CRX) 100 MCG/2 ML VIAL 50 MCG IV PUSH (23:08)
[2021-12-07 00:01] VITALS: BP 140/92; O2SAT 98
[2021-12-07 00:08] LABS: Alanine Aminotransferase 39 U/L (4-50); Albumin Level 4.6 g/dL (3.5-5.1); Alkaline Phosphatase 67 U/L (38-126); Anion Gap 9 mmol/L (8-16); Aspartate Amino Transferase 34 U/L (17-59); Bilirubin,Total 0.3 mg/dL (0.2-1.3); Blood Urea Nitrogen 11 mg/dL (9-20); Calcium 8.4 mg/dL (8.4-10.2); Carbon Dioxide 24 mmol/L (22-30); Chloride 102 mmol/L (98-107); Estimated CRCL calculation 87 ml/min; Estimated Glomerular Filt Rate > 60; Glucose 159 mg/dL (65-110); Lipase 168 U/L (23-300); Potassium 3.9 mmol/L (3.4-5.0); Sodium 135 mmol/L (137-145)
[2021-12-07 00:16] VITALS: BP 131/83; O2SAT 95
[2021-12-07 01:16] LABS: Mucus Urine Rare /lpf; RBC Urine 0-2 /hpf (0-2); WBC Urine 0-3 /hpf
[2021-12-07 01:20] VITALS: BP 136/94; PULSE 80; RESP 16; O2SAT 98
[2021-12-07 01:21] LABS: Appearance Urine Clear (Clear); Bilirubin Urine Negative (Negative); Blood Urine Negative (Negative); Color Urine Yellow (Yellow); Glucose Urine UA Negative (Negative); Ketones Urine Negative (Negative); Leukocyte Esterase Ur Negative LEU/UL (Negative); Nitrate Urine Negative (Negative); Protein Urine Negative (Negative); Specific Grav Ur 1.015 (1.001-1.035); Urobilinogen Urine 0.2 mg/dL (<2.0); pH Urine 5.5 (5.0-9.0)
[2021-12-07 01:23] LABS: Add Urine Microscopic? NO
== END 2021-12-07 01:20 | disposition home or self-care (01) ==
PROVIDERS: Emergency Provider Emergency Medicine; PCP Family Medicine
DX: R10.84 Generalized abdominal pain (principal); K59.00 Constipation, unspecified; E11.9 Type 2 diabetes mellitus without complications; F43.10 Post-traumatic stress disorder, unspecified; F32.A Depression, unspecified; Z90.49 Acquired absence of other specified parts of digestive tract; Z79.84 Long term (current) use of oral hypoglycemic drugs; Z79.899 Other long term (current) drug therapy
CPT/HCPCS: 36415; 74177; 80053; 81003; 83690; 85025; 96374; 96375; 99284; J2270; J2405; J3010; Q9967

== ENCOUNTER 2021-12-17 17:43 | Emergency (ER) | payer OTHER, SELFPAY ==
[2021-12-17] VITALS (10 sets, daily range): BP systolic 118–144; BP diastolic 80–108; PULSE 69–92; RESP 16–18; TEMP 36.4; O2SAT 96–100
--- NOTE | ~2021-12-17 | CT_ITS ---
EXAMINATION: CT abdomen pelvis w con INDICATION: Left lower quadrant pain TECHNIQUE: Computed tomographic images of the abdomen and pelvis were obtained after the administrati on of 100 cc of Omnipaque 350 intravenous contrast. The dose-length product (DLP) was 839.85 mGy-cm. Automated exposure control and iterative reconstruction technique were employed. COMPARISON: 12/07/2021 FINDINGS: Minimal dependent atelectasis is present in the lung bases. The heart size is normal. There is chronic elevation of the right hemidiaphragm. The liver is diffusely low in attenuation when comp ared with the spleen, consistent with hepatic steatosis. The gallbladder is surgically absent. The sp palma, pancreas, and adrenal glands are normal. The kidneys are unremarkable. There are surgical suarez es in the sigmoid colon. No pathologically enlarged abdominal or pelvic lymph nodes are identified. T here is no free intraperitoneal gas or evidence of bowel obstruction. A moderate volume of colonic st ool is present. There is a small fat-containing umbilical hernia. There is mild lumbar spondylosis. IMPRESSION: 1. No CT correlate for the patient's symptoms. Reviewed, dictated and finalized at location F.
--- NOTE | ~2021-12-17 | US_ITS ---
EXAMINATION: US scrotum doppler DATE: 12/17/2021 22:13 INDICATION: Left testicular pain TECHNIQUE: Testicular sonogram utilizing grayscale and Doppler COMPARISON: None. FINDINGS: The right testis measures 4.3 x 2.8 x 2.0 cm. The left testis measures 4.2 x 2.8 x 1.9 cm. There is normal vascular flow to both testes. The right epididymis is normal with normal vascular tarik w. The left epididymis contains a 6 mm cyst or spermatocele. There is no varicocele or hydrocele. IMPRESSION: 1. No sonographic correlate for the patient's symptoms. Reviewed, dictated and finalized at location F.
[2021-12-17 18:12] LABS: Basophils Percent Auto 0.3 % (0.2-1.2); Eosinophils Absolute Auto 0.1 K/mm3 (0-0.3); Eosinophils Percent Auto 0.9 % (0-4.4); Hematocrit 44.5 % (42.0-52.0); Hemoglobin 14.3 g/dL (14.0-18.0); Immature Granulocyte Absolute 0.01 K/mm3 (0.00-0.031); Immature Granulocyte Percent A 0.2 % (0-0.5); Lymphocytes Absolute Auto 1.92 K/mm3 (0.9-3.2); Lymphocytes Percent Auto 33.6 % (18.3-44.2); Mean Corpuscular HGB Conc 32.1 g/dl (32-36); Mean Corpuscular Hemoglobin 26.2 pg (26-34); Mean Corpuscular Volume 81.5 fl (80-100); Monocytes Absolute Auto 0.3 K/mm3 (0.1-0.6); Monocytes Percent Auto 5.2 % (2.6-8.5); Neutrophils Absolute Auto 3.4 K/mm3 (1.3-6.7); Neutrophils Percent Auto 59.8 % (45.5-73.1); Platelet Count Result 253 k/mm3 (150-375); Red Blood Count 5.46 M/mm3 (4.6-6.20); Red Cell Distribution Width 13.8 % (11.5-14.5); White Blood Count 5.7 K/mm3 (4.5-10.0)
[2021-12-17 18:23] LABS: Alanine Aminotransferase 47 U/L (4-50); Albumin Level 4.4 g/dL (3.5-5.1); Alkaline Phosphatase 68 U/L (38-126); Anion Gap 9 mmol/L (8-16); Aspartate Amino Transferase 41 U/L (17-59); Bilirubin,Total 0.2 mg/dL (0.2-1.3); Blood Urea Nitrogen 10 mg/dL (9-20); Calcium 8.5 mg/dL (8.4-10.2); Carbon Dioxide 26 mmol/L (22-30); Chloride 100 mmol/L (98-107); Estimated CRCL calculation 74 ml/min; Estimated Glomerular Filt Rate > 60; Glucose 231 mg/dL (65-110); Lipase 146 U/L (23-300); Potassium 4.1 mmol/L (3.4-5.0); Sodium 135 mmol/L (137-145)
--- NOTE | 2021-12-17 20:02 | ED.ABDPAIN ---
HPI - Abdominal Pain General Chief Complaint: Abdominal Pain Stated Complaint: abdominal pain with constipation, L testicle pain Time Seen by Provider: 12/17/21 19:19 Source: patient Mode of arrival: ambulatory Limitations: no limitations History of Present Illness HPI narrative: This is a 51 year old male that presents to the ER for left lower quadrant abdominal pain. Present since yesterday. Associated with nausea. Reports he has not had a bowel movement in a couple of days. Reports history of past bowel obstructions, and he was concerned he had another one. Denies fever, vomiting, or dysuria. Related Data Home Medications Medication Instructions Recorded Confirmed escitalopram oxalate 20 mg PO DAILY 07/18/21 07/18/21 glipizide 10 mg PO DAILY 07/18/21 07/18/21 modafinil 100 mg PO DAILY PRN 07/18/21 07/18/21 trazodone 100 mg PO HS 07/18/21 07/18/21 dulaglutide [Trulicity] 125 mg SUBCUT 10/19/21 empagliflozin [Jardiance] 25 mg PO DAILY 10/19/21 Allergies Allergy/AdvReac Type Severity Reaction Status Date / Time gabapentin Allergy Unknown Verified 10/19/21 17:38 ketorolac [From Toradol] Allergy Unknown Verified 10/19/21 17:38 promethazine [From Phenergan] Allergy Unknown Verified 10/19/21 17:38 zolpidem [From Ambien] AdvReac Other Verified 10/19/21 17:38 Review of Systems Review of Systems: CONSTITUTIONAL: Denies fever GASTROINTESTINAL: Reports abdominal pain, nausea. Denies vomiting GENITOURINARY: Denies dysuria or hematuria. All systems reviewed & are unremarkable except as noted in HPI and below PMFSH Past Medical History Medical History Depression Diabetes mellitus Diverticulitis History of small bowel obstruction PTSD (post-traumatic stress disorder) Surgical History Surgical History H/O hand surgery History of ankle surgery right History of appendectomy Laparoscopic appendectomy History of colon resection Sigmoid colon resection for diverticulitis 6-7 years ago in [place] History of exploratory laparotomy Ex lap with adhesiolysis for small bowel obstruction 3-4 years ago in [place]. History of Ludmila fundoplication Laparoscopic Hx of cholecystectomy Laparoscopic cholecystectomy Family History Family History Father Heart disease Grandparent Lung cancer Social History Social History Social History: the patient is engaged. he has a son. He does not have a durable power workers compensation attorney for healthcare poa and he is full code. He denies any alcohol or illicit drug use. 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 Smoking status: Never smoker Alcohol intake: never Substance use: never Substance use type: does not use Gender identity (if verbalized by the patient): Male Spiritual care concerns: No Exam Narrative: GENERAL: Well-appearing, well-nourished, and in no acute distress. HEAD: Normocephalic, atraumatic. EYES: EOMI. CHEST: Clear to auscultation. No respiratory distress. No wheezes rales or rhonchi HEART: Regular rate and rhythm. No murmur heard. Normal peripheral pulses. ABDOMEN: Soft, nondistended, normal active bowel sounds. Tender to palpation in the left lower quadrant, without guarding. No CVA tenderness EXTREMITIES: Normal range of motion. No edema. SKIN: Warm, dry, no rash. NEURO: No focal deficits. Alert and oriented x3. PSYCH: Normal mood and affect Course Vital Signs Vital signs: Vital Signs Temperature 97.6 F 12/17/21 17:54 Pulse Rate 92 12/17/21 17:54 Respiratory Rate 18 12/17/21 17:54 Blood Pressure 123/81 12/17/21 17:54 Pulse Oximetry 96 12/17/21 17:54 Temperature 97.6 F 12/17/21 17:54 Pulse Rate 76 12/17/21 19:29 Respiratory Rate 18 12/17/21 19:29 Blood Pressure 138/91 H 12/17/21 19:2
[2021-12-17] MEDS: SODIUM CHLORIDE 0.9% IV 1,000 ML 999 ML IV CONT (20:11)
[2021-12-17] MEDS: ONDANSETRON INJ 4 MG/2 ML VIAL IV PUSH (20:11)
[2021-12-17] MEDS: MORPHINE SULFATE (*CRX) 4 MG/ML INJ IV PUSH (20:12)
[2021-12-17 20:43] LABS: Add Urine Microscopic? YES; Appearance Urine Clear (Clear); Bilirubin Urine Negative (Negative); Blood Urine Negative (Negative); Color Urine Yellow (Yellow); Glucose Urine UA 1+ mg/dL (Negative); Ketones Urine Negative (Negative); Leukocyte Esterase Ur Negative LEU/UL (Negative); Nitrate Urine Negative (Negative); Protein Urine Negative (Negative); Urobilinogen Urine Negative mg/dL (<2.0); WBC Urine 0-3 /hpf
[2021-12-17 21:00] LABS: Specific Grav Ur 1.038 (1.001-1.035)
[2021-12-17] MEDS: HYDROmorphone HCL INJ (*CRX) 1 MG/ML SYR 0.5 MG IV PUSH (21:40)
== END 2021-12-17 22:46 | disposition home or self-care (01) ==
PROVIDERS: Emergency Provider Emergency Medicine; PCP Family Medicine
DX: R10.9 Unspecified abdominal pain (principal); E11.9 Type 2 diabetes mellitus without complications; F32.A Depression, unspecified; N50.812 Left testicular pain; Z79.899 Other long term (current) drug therapy; Z88.8 Allergy status to other drugs, medicaments and biological substances; Z87.19 Personal history of other diseases of the digestive system
CPT/HCPCS: 36415; 74177; 76870; 80053; 81001; 83690; 85025; 93976; 96365; 96375; 99284; J0131; J1170; J2270; J2405; J7030; Q9967

== ENCOUNTER 2022-03-09 20:25 | Emergency (ER) | payer OTHER, SELFPAY ==
[2022-03-09] VITALS (18 sets, daily range): BP systolic 117–152; BP diastolic 81–91; PULSE 88–94; RESP 18; TEMP 36.6; O2SAT 97–100
--- NOTE | ~2022-03-09 | CT_ITS ---
EXAMINATION: CT abdomen pelvis w con DATE: 03/09/2022 22:43 INDICATION: Left lower quadrant abdominal pain, nausea. History of small bowel obstruction. TECHNIQUE: Computed tomography (CT) of the abdomen and pelvis was performed with 100 CC Omnipaque 300 intravenous contrast. Automated exposure control and iterative reconstruction technique were employe d. Exam dose: 923.58 mGy-cm total exam DLP. COMPARISON: 12/17/2021 CT abdomen pelvis FINDINGS: Mild atelectasis, right lower lobe. No consolidation at the lung bases. Normal heart size. No pericardial or pleural effusion. Diffuse hepatic steatosis. No hepatic space-occupying mass lesion is detected. Status post cholecystectomy. No bile duct or pancreatic duct dilatation. No hepatic, splenic or pancreatic space-occupying mass lesion or pancreatic calcification. Normal spl enic size. Normal morphology of the adrenal glands. No renal mass lesion or urinary tract calculus or hydroureteronephrosis. There is moderate diffuse thickening and urinary bladder wall and mild prostate enlargement. There is a suture line of the sigmoid colon status post appendectomy. There are scattered air-fluid levels within the small bowel and gas distended small bowel is without abnormal dilatation which may be due to mild adynamic ileus or enteritis. No bowel wall thickening or intraperitoneal free air. Normal caliber of the abdominal aorta. No intraperitoneal or retroperitoneal or pelvic mass lesion or adenopathy or ascites. Small fat-containing umbilical hernia. No suspicious osteolytic or osteosclerotic lesions. IMPRESSION: Hepatic steatosis Status post sigmoid colon resection Status post appendectomy Nondilated gas distended small bowel and small bowel air-fluid levels, suggesting mild adynamic ileus or enteritis. No bowel structure or free air Reviewed, dictated and finalized at [facility]. Reviewed, dictated and finalized at location [facility]. IMPRESSION: Hepatic steatosis Status post sigmoid colon resection Status post appendectomy Nondilated gas distended small bowel and small bowel air-fluid levels, suggesti ng mild adynamic ileus or enteritis. No bowel structure or free air
--- NOTE | ~2022-03-09 | XR_ITS ---
EXAMINATION: XR chest 2V DATE: 03/10/2022 00:02 INDICATION: COVID positive. Shortness of breath and cough. TECHNIQUE: PA and lateral views of the chest were obtained. COMPARISON: Chest radiograph dated 08/29/2020 FINDINGS: . Lungs are now clear with interval resolution of the prior patchy bilateral airspace opacities. No p ulmonary edema, pleural effusion or pneumothorax. The cardiomediastinal silhouette is normal. Visuali zed bones and soft tissues are unremarkable. IMPRESSION: 1. No acute cardiopulmonary disease. Reviewed, dictated and finalized at location [facility].
[2022-03-09 21:12] LABS: Appearance Urine Clear (Clear); Bilirubin Urine Negative (Negative); Blood Urine Negative (Negative); Color Urine Yellow (Yellow); Glucose Urine UA Negative (Negative); Ketones Urine Negative (Negative); Leukocyte Esterase Ur Negative LEU/UL (Negative); Nitrate Urine Negative (Negative); Protein Urine Negative (Negative); Specific Grav Ur 1.025 (1.001-1.035); pH Urine 5.5 (5.0-9.0)
[2022-03-09 21:14] LABS: Add Urine Microscopic? NO
[2022-03-09 21:27] LABS: Basophils Percent Auto 0.4 % (0.2-1.2); Eosinophils Absolute Auto 0.1 K/mm3 (0-0.3); Hemoglobin 13.9 g/dL (14.0-18.0); Immature Granulocyte Absolute 0.02 K/mm3 (0.00-0.031); Immature Granulocyte Percent A 0.3 % (0-0.5); Lymphocytes Absolute Auto 2.52 K/mm3 (0.9-3.2); Lymphocytes Percent Auto 37.6 % (18.3-44.2); Mean Corpuscular HGB Conc 32.3 g/dl (32-36); Mean Corpuscular Hemoglobin 26.2 pg (26-34); Monocytes Absolute Auto 0.5 K/mm3 (0.1-0.6); Monocytes Percent Auto 6.7 % (2.6-8.5); Neutrophils Absolute Auto 3.6 K/mm3 (1.3-6.7); Platelet Count Result 317 k/mm3 (150-375); Red Blood Count 5.31 M/mm3 (4.6-6.20); Red Cell Distribution Width 13.9 % (11.5-14.5); White Blood Count 6.7 K/mm3 (4.5-10.0)
--- NOTE | 2022-03-09 21:27 | ED.ABDPAIN ---
HPI - Abdominal Pain General Chief Complaint: Abdominal Pain Stated Complaint: abd pain Time Seen by Provider: 03/09/22 21:07 History of Present Illness HPI narrative: Patient is a 52-year-old male with a history of small bowel obstruction here for evaluation of left lower quadrant abdominal pain, nausea, anorexia and constipation for the past 4 days. Patient states the pain is relatively constant in his left lower quadrant, and is crampy in nature and does not radiate. Additionally notes that he has felt nauseous but has not vomited. His last bowel movement was 4 days ago, states that it was watery and loose, and since then he has not passed flatus. States that this feels similar to previous bowel obstructions. Additionally, patient tested positive for COVID about 10 days ago, states that he had experienced a bought of rhinorrhea, congestion, cough and feeling short of breath, has been somewhat improved but the cough has lingered. Related Data Home Medications Medication Instructions Recorded Confirmed escitalopram oxalate 20 mg tablet 20 mg PO DAILY 07/18/21 07/18/21 glipizide 10 mg tablet 10 mg PO DAILY 07/18/21 07/18/21 modafinil 100 mg tablet 100 mg PO DAILY PRN Systemic Signs 07/18/21 07/18/21 And Symptoms trazodone 100 mg tablet 100 mg PO HS 07/18/21 07/18/21 dulaglutide 0.75 mg/0.5 mL 125 mg subcut 10/19/21 subcutaneous pen injector (Trulicity) empagliflozin 25 mg tablet 25 mg PO DAILY 10/19/21 (Jardiance) Allergies Allergy/AdvReac Type Severity Reaction Status Date / Time gabapentin Allergy Unknown Verified 03/09/22 20:56 ketorolac [From Toradol] Allergy Unknown Verified 03/09/22 20:56 promethazine [From Phenergan] Allergy Unknown Verified 03/09/22 20:56 zolpidem [From Ambien] AdvReac Other Verified 03/09/22 20:56 Review of Systems Review of Systems: Gen.: Denies fevers or chills Eyes: Denies eye pain or visual change ENT: Denies congestion Respiratory: Denies shortness of breath or cough CV: Denies chest pain or palpitations GI: Reports abdominal pain, nausea, constipation denies burning, urgency, frequency or hematuria Musculoskeletal: Denies back pain or muscle pain Neuro: Denies numbness, tingling, weakness or focal weakness Skin: Denies rash Except as documented, all other systems reviewed and negative PMFSH Past Medical History Medical History Depression Diabetes mellitus Diverticulitis History of small bowel obstruction PTSD (post-traumatic stress disorder) Surgical History Surgical History H/O hand surgery History of ankle surgery right History of appendectomy Laparoscopic appendectomy History of colon resection Sigmoid colon resection for diverticulitis 6-7 years ago in [place] History of exploratory laparotomy Ex lap with adhesiolysis for small bowel obstruction 3-4 years ago in [place]. History of Ludmila fundoplication Laparoscopic Hx of cholecystectomy Laparoscopic cholecystectomy Family History Family History Father Heart disease Grandparent Lung cancer Social History Social History Social History: the patient is engaged. he has a son. He does not have a durable power teletype clerk for healthcare poa and he is full code. He denies any alcohol or illicit drug use. 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 Smoking status: Never smoker Alcohol intake: never Substance use: never Substance use type: does not use Gender identity (if verbalized by the patient): Male Spiritual care concerns: No Exam Narrative: APPEARANCE: Well appearing, no pain in distress, well-nourished. Head: Normocephalic and atraumatic. EYES: PERRLA/EOMI, conjunctivae clear NOSE: No nasal drainage EARS: External ear normal in lesly
[2022-03-09 21:49] LABS: Alanine Aminotransferase 34 U/L (6-50); Albumin Level 4.3 g/dL (3.5-5.1); Alkaline Phosphatase 63 U/L (38-126); Anion Gap 6 mmol/L (8-16); Aspartate Amino Transferase 29 U/L (17-59); Bilirubin,Total 0.2 mg/dL (0.2-1.3); Blood Urea Nitrogen 10 mg/dL (9-20); Calcium 8.8 mg/dL (8.4-10.2); Carbon Dioxide 26 mmol/L (22-30); Chloride 104 mmol/L (98-107); Estimated CRCL calculation 89 ml/min; Estimated Glomerular Filt Rate > 60; Glucose 142 mg/dL (65-110); Lipase 195 U/L (23-300); Potassium 3.7 mmol/L (3.4-5.0); Sodium 136 mmol/L (137-145)
[2022-03-09] MEDS: ONDANSETRON INJ 4 MG/2 ML VIAL IV PUSH (22:03)
[2022-03-09] MEDS: MORPHINE SULFATE (*CRX) 4 MG/ML INJ IV PUSH (22:05)
[2022-03-09] MEDS: SODIUM CHLORIDE 0.9% IV 1,000 ML 999 ML IV CONT (22:05)
[2022-03-09] MEDS: MORPHINE SULFATE (*CRX) 2 MG/ML INJ IV PUSH ×2 (22:23→23:26)
[2022-03-09 22:35] LABS: Lactic Acid Reflex 1.2 mmol/L (0.7-2.0)
[2022-03-10 00:25] VITALS: BP 127/80; PULSE 74; RESP 16; O2SAT 98
== END 2022-03-10 00:23 | disposition home or self-care (01) ==
PROVIDERS: Emergency Medicine; Physician Assistant; Emergency Provider Emergency Medicine; PCP Family Medicine
DX: K52.9 Noninfective gastroenteritis and colitis, unspecified (principal); E11.9 Type 2 diabetes mellitus without complications; F32.A Depression, unspecified; F43.10 Post-traumatic stress disorder, unspecified; Z90.49 Acquired absence of other specified parts of digestive tract; Z79.84 Long term (current) use of oral hypoglycemic drugs
CPT/HCPCS: 36415; 71046; 74177; 80053; 81003; 83605; 83690; 85025; 96361; 96374; 96375; 96376; 99284; J2270; J2405; J7030; Q9967

== ENCOUNTER 2022-03-26 19:56 | Emergency (ER) | payer OTHER, SELFPAY ==
--- NOTE | ~2022-03-26 | CT_ITS ---
EXAMINATION: CT abdomen pelvis w con DATE: 03/26/2022 22:40 INDICATION: LLQ abdominal pain TECHNIQUE: Computed tomography (CT) of the abdomen and pelvis was performed with 100 mL Omnipaque-350 intravenous contrast. Automated exposure control and iterative reconstruction technique were employe d. The dose-length product was 821.74 mGy-cm. COMPARISON: 03/09/2022. FINDINGS: Lower thorax: Coronary artery calcifications. Liver: Enlarged fatty infiltrated liver. Biliary/Gallbladder: Gallbladder is absent. No bile duct dilation. Pancreas: No mass or duct dilation. Spleen: Normal. Adrenals:No mass. Kidneys: No mass, stone, or hydronephrosis. GI tract: No small or large bowel dilation. Surgically absent. Colonic interposition. Distal sigmoid anastomosis with mild proximal dilation, unchanged. Mesentery/Peritoneum: No ascites, mass, or free air. Retroperitoneum: No mass. Mild atherosclerotic abdominal aortic and/or arterial calcifications. Pelvis: Bladder wall thickening, likely on the basis of outlet compromise from mild prostatomegaly. Soft Tissues: Prior left inguinal hernia repair. Bones: No acute osseous finding. IMPRESSION: Hepatomegaly and steatosis. Bladder wall thickening, presumed to be related to outlet compromise, cor relate with urinalysis. Otherwise no CT finding to explain left lower quadrant pain. Reviewed, dictated and finalized at location [facility]. IMPRESSION: Hepatomegaly and steatosis. Bladder wall thickening, presumed to be related to outlet compromise, correlate with urinalysis. Otherwise no CT finding to explai n left lower quadrant pain.
[2022-03-26 19:57] VITALS: BP 132/80; PULSE 99; RESP 16; TEMP 36.6; O2SAT 98
[2022-03-26 20:18] LABS: Basophils Percent Auto 0.4 % (0.2-1.2); Eosinophils Absolute Auto 0.1 K/mm3 (0-0.3); Eosinophils Percent Auto 0.7 % (0-4.4); Hematocrit 43.6 % (42.0-52.0); Hemoglobin 14.2 g/dL (14.0-18.0); Lymphocytes Absolute Auto 2.15 K/mm3 (0.9-3.2); Lymphocytes Percent Auto 31.7 % (18.3-44.2); Mean Corpuscular HGB Conc 32.6 g/dl (32-36); Mean Corpuscular Hemoglobin 26.4 pg (26-34); Mean Platelet Volume 9.2 fl (7.4-10.4); Monocytes Absolute Auto 0.4 K/mm3 (0.1-0.6); Monocytes Percent Auto 5.5 % (2.6-8.5); Neutrophils Absolute Auto 4.2 K/mm3 (1.3-6.7); Neutrophils Percent Auto 61.7 % (45.5-73.1); Platelet Count Result 253 k/mm3 (150-375); Red Blood Count 5.38 M/mm3 (4.6-6.20); Red Cell Distribution Width 13.9 % (11.5-14.5); White Blood Count 6.8 K/mm3 (4.5-10.0)
[2022-03-26 20:31] LABS: Alanine Aminotransferase 42 U/L (6-50); Albumin Level 4.7 g/dL (3.5-5.1); Alkaline Phosphatase 76 U/L (38-126); Anion Gap 11 mmol/L (8-16); Aspartate Amino Transferase 37 U/L (17-59); Bilirubin,Total 0.3 mg/dL (0.2-1.3); Blood Urea Nitrogen 13 mg/dL (9-20); Calcium 8.8 mg/dL (8.4-10.2); Carbon Dioxide 29 mmol/L (22-30); Chloride 98 mmol/L (98-107); Estimated CRCL calculation 68 ml/min; Estimated Glomerular Filt Rate > 60; Glucose 177 mg/dL (65-110); Lipase 226 U/L (23-300); Potassium 4.1 mmol/L (3.4-5.0); Sodium 138 mmol/L (137-145)
[2022-03-26] MEDS: ONDANSETRON INJ 4 MG/2 ML VIAL IV PUSH (22:21)
[2022-03-26] MEDS: MORPHINE SULFATE (*CRX) 4 MG/ML INJ IV PUSH (22:23)
[2022-03-26 23:14] LABS: Appearance Urine Clear (Clear); Bilirubin Urine Negative (Negative); Blood Urine Negative (Negative); Color Urine Yellow (Yellow); Glucose Urine UA Negative (Negative); Ketones Urine Negative (Negative); Leukocyte Esterase Ur Negative LEU/UL (Negative); Nitrate Urine Negative (Negative); Protein Urine Negative (Negative)
[2022-03-26 23:17] LABS: Mucus Urine Rare /lpf; RBC Urine 0-2 /hpf (0-2); WBC Urine 0-3 /hpf
--- NOTE | 2022-03-26 23:17 | ED.GENADULT ---
HPI - General Adult General Chief complaint: Abdominal Pain Stated complaint: abd pain, dark stool Time Seen by Provider: 03/26/22 21:25 History of Present Illness HPI narrative: Patient is a 52-year-old male who presents to the ER with abdominal discomfort. Left lower quadrant. Worsening over the last couple days. Associated with nausea but no vomiting. He is passing gas. Has history of recurrent small bowel obstruction. Has not seen a surgeon for this note. No urinary frequency urgency or dysuria. Reports his stools become tarry and black over the last day as well. Concern for GI bleed. Related Data Home Medications Medication Instructions Recorded Confirmed escitalopram oxalate 20 mg tablet 20 mg PO DAILY 07/18/21 07/18/21 glipizide 10 mg tablet 10 mg PO DAILY 07/18/21 07/18/21 modafinil 100 mg tablet 100 mg PO DAILY PRN Systemic Signs 07/18/21 07/18/21 And Symptoms trazodone 100 mg tablet 100 mg PO HS 07/18/21 07/18/21 dulaglutide 0.75 mg/0.5 mL 125 mg subcut 10/19/21 subcutaneous pen injector (Trulicity) empagliflozin 25 mg tablet 25 mg PO DAILY 10/19/21 (Jardiance) Allergies Allergy/AdvReac Type Severity Reaction Status Date / Time gabapentin Allergy Unknown Verified 03/09/22 20:56 ketorolac [From Toradol] Allergy Unknown Verified 03/09/22 20:56 promethazine [From Phenergan] Allergy Unknown Verified 03/09/22 20:56 zolpidem [From Ambien] AdvReac Other Verified 03/09/22 20:56 Review of Systems Review of Systems: All systems reviewed & are unremarkable except as noted in HPI and below Constitutional: Constitutional: Denies chills and Denies fever(s) ENT: Denies nasal congestion and Denies sore throat Cardiovascular: Cardiovascular: Denies chest pain, Denies rapid heart rate and Denies radiating jaw, neck or arm pain Gastrointestinal: Gastrointestinal: Reports abdominal pain, Reports bloating, Denies constipation, Denies diarrhea, Reports nausea and Denies vomiting Genitourinary: Genitourinary: Denies dysuria and Denies urinary frequency PMF Past Medical History Medical History Depression Diabetes mellitus Diverticulitis History of small bowel obstruction PTSD (post-traumatic stress disorder) Surgical History Surgical History H/O hand surgery History of ankle surgery right History of appendectomy Laparoscopic appendectomy History of colon resection Sigmoid colon resection for diverticulitis 6-7 years ago in [place] History of exploratory laparotomy Ex lap with adhesiolysis for small bowel obstruction 3-4 years ago in [place]. History of Ludmila fundoplication Laparoscopic Hx of cholecystectomy Laparoscopic cholecystectomy Family History Family History Father Heart disease Grandparent Lung cancer Social History Social History Social History: the patient is engaged. he has a son. He does not have a durable power patent prosecution attorney for healthcare poa and he is full code. He denies any alcohol or illicit drug use. 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 Smoking status: Never smoker Alcohol intake: never Substance use: never Substance use type: does not use Gender identity (if verbalized by the patient): Male Spiritual care concerns: No Exam Narrative: GENERAL: Well-appearing, well-nourished, and in no acute distress. HEAD: Normocephalic, atraumatic. EYES: PERRL and EOMI. ENT: Mucous membranes moist. CHEST: Clear to auscultation. No respiratory distress. HEART: Regular rate and rhythm. Normal peripheral pulses. ABDOMEN: Soft, tender palpation left lower quadrant with guarding. Nondistended, normal active bowel sounds. Hemoccult negative stool 1 rectal exam that is light brown in color. EXTREMITIES: Normal range
[2022-03-26 23:35] LABS: Add Urine Microscopic? YES
[2022-03-26] MEDS: DICYCLOMINE HCL INJ 20 MG/2 ML VIAL IM (23:50)
[2022-03-27 00:34] VITALS: BP 130/85; PULSE 82; RESP 18; O2SAT 96
== END 2022-03-27 00:36 | disposition home or self-care (01) ==
PROVIDERS: Emergency Provider Emergency Medicine; PCP Family Medicine
DX: R10.84 Generalized abdominal pain (principal); E11.9 Type 2 diabetes mellitus without complications; Z79.84 Long term (current) use of oral hypoglycemic drugs; F32.9 Major depressive disorder, single episode, unspecified
CPT/HCPCS: 36415; 74177; 80053; 81001; 83690; 85025; 86850; 86900; 86901; 96372; 96374; 96375; 99284; J0500; J2270; J2405; Q9967

== ENCOUNTER 2022-07-14 14:33 | Emergency (ER) | payer OTHER, SELFPAY ==
--- NOTE | ~2022-07-14 | CT_ITS ---
EXAMINATION: CT abdomen pelvis w con DATE: 07/14/2022 19:34 INDICATION: LLQ pain, hsx SBO TECHNIQUE: Computed tomography (CT) of the abdomen and pelvis was performed with 100 mL Omnipaque-350 intravenous contrast. Automated exposure control and iterative reconstruction technique were employe d. The dose-length product was 655.85 mGy-cm. COMPARISON: 03/26/2022. FINDINGS: The liver dome is excluded from the [id number]. Lower thorax: Right basilar scar/atelectasis Liver: Enlarged. Fatty infiltrated. Biliary/Gallbladder: Gallbladder is absent. No bile duct dilation. Pancreas: No mass or duct dilation. Spleen: Normal. Adrenals:No mass. Kidneys: No mass, stone, or hydronephrosis. GI tract: No small or large bowel dilation. Uncomplicated sigmoid anastomosis. Appendix surgically ab sent. Colonic interposition. Mesentery/Peritoneum: No ascites, mass, or free air. Retroperitoneum: No mass. Atherosclerotic abdominal aortic and/or arterial calcifications. Pelvis: Bladder wall thickening likely secondary to outlet compromise from prostatomegaly. Soft Tissues: Prior left inguinal hernia repair Bones: No acute osseous finding. IMPRESSION: Hepatomegaly and steatosis. Bladder wall thickening, likely due to outlet compromise. No acute abdomi nopelvic process detected. No CT finding to explain left lower quadrant pain. Reviewed, dictated and finalized at location K. ATIONAL THERAPY TEACHER IMPRESSION: Hepatomegaly and steatosis. Bladder wall thickening, likely due to outlet compr omise. No acute abdominopelvic process detected. No CT finding to explain left lower quadrant pain.
[2022-07-14 14:34] VITALS: BP 148/87; PULSE 110; RESP 14; TEMP 37.1; O2SAT 99
[2022-07-14 15:31] LABS: Alanine Aminotransferase 29 U/L (6-50); Albumin Level 4.3 g/dL (3.5-5.1); Alkaline Phosphatase 64 U/L (38-126); Anion Gap 11 mmol/L (8-16); Aspartate Amino Transferase 29 U/L (17-59); Basophils Percent Auto 0.4 % (0.2-1.2); Bilirubin,Total 0.4 mg/dL (0.2-1.3); Blood Urea Nitrogen 10 mg/dL (9-20); Calcium 8.8 mg/dL (8.4-10.2); Carbon Dioxide 23 mmol/L (22-30); Chloride 103 mmol/L (98-107); Eosinophils Absolute Auto 0.1 K/mm3 (0-0.3); Estimated Glomerular Filt Rate > 60; Glucose 246 mg/dL (65-110); Hematocrit 42.9 % (42.0-52.0); Hemoglobin 14.2 g/dL (14.0-18.0); Immature Granulocyte Absolute 0.01 K/mm3 (0.00-0.031); Immature Granulocyte Percent A 0.2 % (0-0.5); Lipase 247 U/L (23-300); Lymphocytes Absolute Auto 2.03 K/mm3 (0.9-3.2); Lymphocytes Percent Auto 38.9 % (18.3-44.2); Mean Corpuscular HGB Conc 33.1 g/dl (32-36); Mean Corpuscular Hemoglobin 26.9 pg (26-34); Mean Corpuscular Volume 81.3 fl (80-100); Mean Platelet Volume 9.1 fl (7.4-10.4); Monocytes Absolute Auto 0.3 K/mm3 (0.1-0.6); Monocytes Percent Auto 5.4 % (2.6-8.5); Neutrophils Absolute Auto 2.8 K/mm3 (1.3-6.7); Neutrophils Percent Auto 54.1 % (45.5-73.1); Platelet Count Result 257 k/mm3 (150-375); Potassium 3.9 mmol/L (3.4-5.0); Red Blood Count 5.28 M/mm3 (4.6-6.20); Red Cell Distribution Width 13.8 % (11.5-14.5); Sodium 137 mmol/L (137-145); White Blood Count 5.2 K/mm3 (4.5-10.0)
[2022-07-14 18:46] VITALS: BP 141/95
--- NOTE | 2022-07-14 18:47 | ED.GENADULT ---
HPI - General Adult General Chief complaint: Abdominal Pain Stated complaint: abd pain Time Seen by Provider: 07/14/22 18:26 History of Present Illness HPI narrative: 52-year-old male presented to the emergency department for evaluation of left lower quadrant abdominal pain for the past 3 days. Patient does have a prior history of sigmoid diverticulitis and has had a partial colectomy approximately 8 years ago. Patient does report associated nausea vomiting. Patient states he is still passing gas and is having soft diarrhea stool. Patient reports he has had multiple issues with small bowel obstructions with the most recent one being approximately 1 year ago. Related Data Home Medications Medication Instructions Recorded Confirmed escitalopram oxalate 20 mg tablet 20 mg PO DAILY 07/18/21 07/18/21 glipizide 10 mg tablet 10 mg PO DAILY 07/18/21 07/18/21 modafinil 100 mg tablet 100 mg PO DAILY PRN Systemic Signs 07/18/21 07/18/21 And Symptoms trazodone 100 mg tablet 100 mg PO HS 07/18/21 07/18/21 dulaglutide 0.75 mg/0.5 mL 125 mg subcut 10/19/21 subcutaneous pen injector (Trulicity) empagliflozin 25 mg tablet 25 mg PO DAILY 10/19/21 (Jardiance) Allergies Allergy/AdvReac Type Severity Reaction Status Date / Time gabapentin Allergy Unknown Verified 07/19/22 00:47 ketorolac [From Toradol] Allergy Unknown Verified 07/19/22 00:47 promethazine [From Phenergan] Allergy Unknown Verified 07/19/22 00:47 zolpidem [From Ambien] AdvReac Other Verified 07/19/22 00:47 Review of Systems Review of Systems: CONSTITUTIONAL: Denies fever, chills, or sweats. EYES: Denies visual changes, redness, or discharge. ENT: Denies rhinorrhea, congestion, sore throat, or otalgia. CARDIOVASCULAR: Denies chest pain, palpitations, or edema. RESPIRATORY: Denies cough or dyspnea. GASTROINTESTINAL: See HPI GENITOURINARY: Denies dysuria or hematuria. SKIN: Denies rash or itching. MUSCULOSKELETAL: Denies back pain, joint pain, or myalgia. NEUROLOGIC: Denies headache, numbness, or weakness. [facility] Past Medical History Medical History Depression Diabetes mellitus Diverticulitis History of small bowel obstruction PTSD (post-traumatic stress disorder) Surgical History Surgical History H/O hand surgery History of ankle surgery right History of appendectomy Laparoscopic appendectomy History of colon resection Sigmoid colon resection for diverticulitis 6-7 years ago in [place] History of exploratory laparotomy Ex lap with adhesiolysis for small bowel obstruction 3-4 years ago in [place]. History of Ludmila fundoplication Laparoscopic Hx of cholecystectomy Laparoscopic cholecystectomy Family History Family History Father Heart disease Grandparent Lung cancer Social History Social History Social History: the patient is engaged. he has a son. He does not have a durable power senior attorney for healthcare poa and he is full code. He denies any alcohol or illicit drug use. 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 Smoking status: Never smoker Alcohol intake: never Substance use: never Substance use type: does not use Gender identity (if verbalized by the patient): Male Spiritual care concerns: No Exam Narrative: APPEARANCE: Well appearing, no pain, no distress, well-nourished. HEAD: normocephalic, atraumatic. EYES: PERRLA/EOMI, conjunctivae clear. NOSE: Normal no drainage NECK: Supple. No adenopathy, no masses. RESPIRATORY: Airway patent, respirations nonlabored. Clear to auscultation bilaterally, no rales, rhonchi, wheezing. CARDIOVASCULAR: Regular rate and rhythm without murmurs rubs or gallops. ABDOMINAL: Soft, nontender, nondistended, normal bowel sounds MUSCULOSKELETAL: Moves
[2022-07-14] MEDS: SODIUM CHLORIDE 0.9% IV 1,000 ML 999 ML IV CONT (19:13)
[2022-07-14] MEDS: HYDROmorphone HCL INJ (*CRX) 1 MG/ML SYR IV PUSH (19:13)
[2022-07-14] MEDS: ONDANSETRON INJ 4 MG/2 ML VIAL IV PUSH (19:13)
[2022-07-14 19:28] LABS: Appearance Urine Clear (Clear); Bilirubin Urine Negative (Negative); Blood Urine Negative (Negative); Color Urine Yellow (Yellow); Glucose Urine UA 1+ mg/dL (Negative); Ketones Urine Trace mg/dL (Negative); Leukocyte Esterase Ur Negative LEU/UL (Negative); Nitrate Urine Negative (Negative); Protein Urine Negative (Negative); Specific Grav Ur 1.025 (1.001-1.035); Urobilinogen Urine 0.2 mg/dL (<2.0); pH Urine 5.5 (5.0-9.0)
[2022-07-14 19:34] LABS: Bacteria Urine Trace /hpf; Mucus Urine Rare /lpf; RBC Urine 0-2 /hpf (0-2); Squamous Epithelial Cell Urine Rare /hpf (Few)
[2022-07-14 19:37] LABS: Add Urine Microscopic? YES
[2022-07-14 20:53] VITALS: BP 131/85; PULSE 80; RESP 16; O2SAT 98
[2022-07-14 21:45] VITALS: BP 134/78; PULSE 70; RESP 16; O2SAT 97
== END 2022-07-14 21:50 | disposition home or self-care (01) ==
PROVIDERS: Emergency Provider Emergency Medicine; PCP Family Medicine
DX: R10.32 Left lower quadrant pain (principal); E11.9 Type 2 diabetes mellitus without complications; F32.A Depression, unspecified; F43.10 Post-traumatic stress disorder, unspecified; Z90.49 Acquired absence of other specified parts of digestive tract; Z79.84 Long term (current) use of oral hypoglycemic drugs; Z79.85 Long-term (current) use of injectable non-insulin antidiabetic drugs; R16.0 Hepatomegaly, not elsewhere classified; K76.0 Fatty (change of) liver, not elsewhere classified
CPT/HCPCS: 36415; 74177; 80053; 81001; 83690; 85025; 96361; 96374; 96375; 99284; J1170; J2405; J7030; Q9967

== ENCOUNTER 2022-07-19 00:46 | Emergency (ER) | payer OTHER, SELFPAY ==
[2022-07-19] VITALS (15 sets, daily range): BP systolic 120–142; BP diastolic 83–91; PULSE 78–98; RESP 16–18; TEMP 36.2; O2SAT 95–99
--- NOTE | ~2022-07-19 | CT_ITS ---
EXAMINATION: CT abdomen pelvis w con DATE: 07/19/2022 04:38 INDICATION: Left lower quadrant pain for over a week. Nausea, vomiting and constipation since 022 TECHNIQUE: Computed tomography (CT) of the abdomen and pelvis was performed with 100 CC Omnipaque 350 intravenous contrast. Automated exposure control and iterative reconstruction technique were employe d. Exam dose: 999.00 mGy-cm total exam DLP. COMPARISON: 07/14/2022 CT abdomen pelvis FINDINGS: There is mild right lower lobe infiltrate and/atelectasis normal heart size. No pericardial or pleural effusion. Status post cholecystectomy. Hepatic steatosis. No hepatic, splenic, pancreatic, adrenal or renal spa ce-occupying mass lesion is evident. Normal splenic size. No bile duct or pancreatic duct dilatation or pancreatic calcification. No urinary tract calculus or hydroureteronephrosis. Normal caliber of the abdominal aorta. No intraperitoneal or retroperitoneal or pelvic mass lesion or adenopathy or ascites. Moderate prostate enlargement. Moderate diffuse thickening of the urinary bladder wall. There is a suture line at the sigmoid colon. Status post appendectomy. There are nondilated fluid containing small bowel segments with air-fluid levels, without apparent ob struction, suggesting enteritis or mild adynamic ileus. No intraperitoneal free air Small fat umbilical hernia Included skeletal structures are unremarkable, without evidence of cyst suspicious osteolytic or oste oblastic lesion. IMPRESSION: Status post cholecystectomy Status post appendectomy Status post sigmoid colon resection Small bowel air-fluid levels without abnormal dilatation, suggesting enteritis or mild adynamic ileus Hepatic steatosis Moderate prostate enlargement Reviewed, dictated and finalized at [facility]. Reviewed, dictated and finalized at location A. BUSINESS PROCESS ARCHITECT
--- NOTE | 2022-07-19 02:38 | ED.ABDPAIN ---
HPI - Abdominal Pain General Chief Complaint: Abdominal Pain Stated Complaint: abdominal pain left lower Time Seen by Provider: 07/19/22 02:33 Source: RN notes reviewed History of Present Illness HPI narrative: Patient presents emergency department from home for abdominal pain. Patient states pain is located in left lower quadrant does not radiate is described as sharp and stabbing. States has been associate with nausea vomiting. States has been taking Tylenol for the pain with minimal relief. Denies any fevers or chills chest pain shortness of breath diarrhea or any other symptoms. The patient states that he was seen in the emergency department earlier this week for the left lower quadrant pain and was instructed to return if the pain worsen he states that since returning home he has had no improvement of the pain and the pain became more severe this evening. Related Data Home Medications Medication Instructions Recorded Confirmed escitalopram oxalate 20 mg tablet 20 mg PO DAILY 07/18/21 07/18/21 glipizide 10 mg tablet 10 mg PO DAILY 07/18/21 07/18/21 modafinil 100 mg tablet 100 mg PO DAILY PRN Systemic Signs 07/18/21 07/18/21 And Symptoms trazodone 100 mg tablet 100 mg PO HS 07/18/21 07/18/21 dulaglutide 0.75 mg/0.5 mL 125 mg subcut 10/19/21 subcutaneous pen injector (Trulicity) empagliflozin 25 mg tablet 25 mg PO DAILY 10/19/21 (Jardiance) Allergies Allergy/AdvReac Type Severity Reaction Status Date / Time gabapentin Allergy Unknown Verified 07/19/22 00:47 ketorolac [From Toradol] Allergy Unknown Verified 07/19/22 00:47 promethazine [From Phenergan] Allergy Unknown Verified 07/19/22 00:47 zolpidem [From Ambien] AdvReac Other Verified 07/19/22 00:47 Review of Systems Review of Systems: Gen.: Denies fevers or chills ENT: Denies congestion Respiratory: Denies shortness of breath or cough CV: Denies chest pain or palpitations GI: See HPI denies burning, urgency, frequency or hematuria Musculoskeletal: Denies back pain or muscle pain Neuro: Denies numbness, tingling, weakness or focal weakness Skin: Denies rash Except as documented, all other systems reviewed and negative PMFSH Past Medical History Medical History Depression Diabetes mellitus Diverticulitis History of small bowel obstruction PTSD (post-traumatic stress disorder) Surgical History Surgical History H/O hand surgery History of ankle surgery right History of appendectomy Laparoscopic appendectomy History of colon resection Sigmoid colon resection for diverticulitis 6-7 years ago in [place] History of exploratory laparotomy Ex lap with adhesiolysis for small bowel obstruction 3-4 years ago in [place]. History of Ludmila fundoplication Laparoscopic Hx of cholecystectomy Laparoscopic cholecystectomy Family History Family History Father Heart disease Grandparent Lung cancer Social History Social History Social History: the patient is engaged. he has a son. He does not have a durable power litigation attorney for healthcare poa and he is full code. He denies any alcohol or illicit drug use. 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 Smoking status: Never smoker Alcohol intake: never Substance use: never Substance use type: does not use Gender identity (if verbalized by the patient): Male Spiritual care concerns: No Exam Narrative: APPEARANCE: No acute distress, nontoxic, resting in bed HEENT: Normocephalic, atraumatic, OMM RESPIRATORY: No respiratory distress, clear to auscultation bilaterally with no rhonchi wheezing or rales CARDIOVASCULAR: RRR s murmur ABDOMINAL: Soft nondistended tender palpation left lower quadrant with mild tenderness in the right lower quadrant left u
[2022-07-19] MEDS: MORPHINE SULFATE (*CRX) 4 MG/ML INJ IV PUSH (03:27)
[2022-07-19] MEDS: ONDANSETRON INJ 4 MG/2 ML VIAL IV PUSH (03:28)
[2022-07-19] MEDS: SODIUM CHLORIDE 0.9% IV 1,000 ML 999 ML IV CONT (03:38)
[2022-07-19 03:42] LABS: Appearance Urine Clear (Clear); Bilirubin Urine Negative (Negative); Blood Urine Negative (Negative); Color Urine Yellow (Yellow); Glucose Urine UA Negative (Negative); Ketones Urine Trace mg/dL (Negative); Leukocyte Esterase Ur Negative LEU/UL (Negative); Nitrate Urine Negative (Negative); Protein Urine Negative (Negative); Urobilinogen Urine 0.2 mg/dL (<2.0); pH Urine 5.5 (5.0-9.0)
[2022-07-19 03:43] LABS: Basophils Percent Auto 0.6 % (0.2-1.2); Eosinophils Absolute Auto 0.1 K/mm3 (0-0.3); Eosinophils Percent Auto 1.1 % (0-4.4); Hematocrit 42.5 % (42.0-52.0); Immature Granulocyte Absolute 0.01 K/mm3 (0.00-0.031); Immature Granulocyte Percent A 0.2 % (0-0.5); Lymphocytes Absolute Auto 2.27 K/mm3 (0.9-3.2); Lymphocytes Percent Auto 41.7 % (18.3-44.2); Mean Corpuscular HGB Conc 32.9 g/dl (32-36); Mean Corpuscular Hemoglobin 26.9 pg (26-34); Mean Corpuscular Volume 81.6 fl (80-100); Mean Platelet Volume 8.9 fl (7.4-10.4); Monocytes Absolute Auto 0.4 K/mm3 (0.1-0.6); Monocytes Percent Auto 7.3 % (2.6-8.5); Neutrophils Absolute Auto 2.7 K/mm3 (1.3-6.7); Neutrophils Percent Auto 49.1 % (45.5-73.1); Platelet Count Result 223 k/mm3 (150-375); Red Blood Count 5.21 M/mm3 (4.6-6.20); Red Cell Distribution Width 13.9 % (11.5-14.5); White Blood Count 5.5 K/mm3 (4.5-10.0)
[2022-07-19 03:45] LABS: Bacteria Urine Trace /hpf; RBC Urine 0-2 /hpf (0-2); WBC Urine 0-3 /hpf
[2022-07-19 03:47] LABS: Add Urine Microscopic? YES
[2022-07-19 03:53] LABS: Alanine Aminotransferase 41 U/L (6-50); Albumin Level 4.3 g/dL (3.5-5.1); Alkaline Phosphatase 62 U/L (38-126); Anion Gap 11 mmol/L (8-16); Aspartate Amino Transferase 32 U/L (17-59); Bilirubin,Total 0.4 mg/dL (0.2-1.3); Blood Urea Nitrogen 12 mg/dL (9-20); Calcium 8.6 mg/dL (8.4-10.2); Carbon Dioxide 25 mmol/L (22-30); Chloride 101 mmol/L (98-107); Estimated CRCL calculation 80 ml/min; Estimated Glomerular Filt Rate > 60; Glucose 169 mg/dL (65-110); Lipase 164 U/L (23-300); Sodium 137 mmol/L (137-145)
[2022-07-19] MEDS: HYDROmorphone HCL INJ (*CRX) 1 MG/ML SYR 0.5 MG IV PUSH (07:52)
== END 2022-07-19 08:00 | disposition home or self-care (01) ==
PROVIDERS: Emergency Provider Emergency Medicine; PCP Family Medicine
DX: R10.32 Left lower quadrant pain (principal); E11.9 Type 2 diabetes mellitus without complications; F32.A Depression, unspecified; F43.10 Post-traumatic stress disorder, unspecified; Z90.49 Acquired absence of other specified parts of digestive tract; K76.0 Fatty (change of) liver, not elsewhere classified; N40.0 Benign prostatic hyperplasia without lower urinary tract symptoms; Z79.85 Long-term (current) use of injectable non-insulin antidiabetic drugs; Z79.84 Long term (current) use of oral hypoglycemic drugs
CPT/HCPCS: 36415; 74177; 80053; 81001; 83690; 85025; 96361; 96374; 96375; 99284; J1170; J2270; J2405; J7030; Q9967

== ENCOUNTER 2022-12-07 00:31 | Emergency (ER) | payer OTHER, SELFPAY ==
--- NOTE | ~2022-12-07 | CT_ITS ---
EXAMINATION: CT abdomen pelvis w con INDICATION: Left lower quadrant pain TECHNIQUE: Computed tomographic images of the abdomen and pelvis were obtained after the administrati on of 100 cc of Omnipaque 350 intravenous contrast. The dose-length product (DLP) was 834.12 mGy-cm. Automated exposure control and iterative reconstruction technique were employed. COMPARISON: 07/19/2022 FINDINGS: There are chronic airspace opacities of the visualized lung bases. The heart size is normal . The gallbladder is surgically absent. The liver, spleen, pancreas, and adrenal glands are normal. T he kidneys are unremarkable. No pathologically enlarged abdominal or pelvic lymph nodes are identifie d. No free intraperitoneal gas or evidence of bowel obstruction. There is a surgical anastomosis of t he sigmoid colon. There are tiny umbilical hernia containing fat. There is mild lumbar spondylosis. IMPRESSION: 1. No CT correlate for the patient's symptoms. Reviewed, dictated and finalized at location A.
[2022-12-07 00:53] VITALS: BP 129/90; PULSE 108; RESP 17; TEMP 37.1; O2SAT 96
[2022-12-07 01:09] LABS: Basophils Percent Auto 0.6 % (0.2-1.2); Eosinophils Absolute Auto 0.1 K/mm3 (0-0.3); Eosinophils Percent Auto 1.2 % (0-4.4); Hemoglobin 14.6 g/dL (14.0-18.0); Immature Granulocyte Absolute 0.01 K/mm3 (0.00-0.031); Immature Granulocyte Percent A 0.1 % (0-0.5); Lymphocytes Absolute Auto 2.44 K/mm3 (0.9-3.2); Lymphocytes Percent Auto 35.2 % (18.3-44.2); Mean Corpuscular HGB Conc 33.2 g/dl (32-36); Mean Corpuscular Hemoglobin 26.6 pg (26-34); Mean Corpuscular Volume 80.1 fl (80-100); Mean Platelet Volume 9.4 fl (7.4-10.4); Monocytes Absolute Auto 0.4 K/mm3 (0.1-0.6); Monocytes Percent Auto 6.1 % (2.6-8.5); Neutrophils Percent Auto 56.8 % (45.5-73.1); Platelet Count Result 274 k/mm3 (150-375); Red Blood Count 5.49 M/mm3 (4.6-6.20); Red Cell Distribution Width 13.7 % (11.5-14.5); White Blood Count 6.9 K/mm3 (4.5-10.0)
[2022-12-07 01:10] LABS: Appearance Urine Clear (Clear); Bilirubin Urine Negative (Negative); Blood Urine Negative (Negative); Color Urine Yellow (Yellow); Glucose Urine UA 2+ mg/dL (Negative); Ketones Urine Negative (Negative); Leukocyte Esterase Ur Negative LEU/UL (Negative); Nitrate Urine Negative (Negative); Protein Urine Negative (Negative); Specific Grav Ur 1.022 (1.001-1.035); pH Urine 5.5 (5.0-9.0)
[2022-12-07 01:15] LABS: Add Urine Microscopic? NO
[2022-12-07 01:37] LABS: Alanine Aminotransferase 34 U/L (6-50); Albumin Level 4.6 g/dL (3.5-5.1); Alkaline Phosphatase 61 U/L (38-126); Anion Gap 10 mmol/L (8-16); Aspartate Amino Transferase 33 U/L (17-59); Bilirubin,Total 0.6 mg/dL (0.2-1.3); Blood Urea Nitrogen 16 mg/dL (9-20); Calcium 8.6 mg/dL (8.4-10.2); Carbon Dioxide 25 mmol/L (22-30); Chloride 100 mmol/L (98-107); Estimated Glomerular Filt Rate > 60; Glucose 246 mg/dL (65-110); Lipase 195 U/L (23-300); Sodium 135 mmol/L (137-145)
[2022-12-07] MEDS: ONDANSETRON INJ 4 MG/2 ML VIAL IV PUSH (01:52)
[2022-12-07] MEDS: HYDROmorphone HCL INJ (*CRX) 1 MG/ML SYR IV PUSH ×3 (01:53→05:49)
[2022-12-07] MEDS: SODIUM CHLORIDE 0.9% IV 1,000 ML 999 ML IV CONT (01:55)
[2022-12-07 03:42] VITALS: BP 132/88; PULSE 78; RESP 18; O2SAT 96
--- NOTE | 2022-12-07 04:15 | ED.GENADULT ---
HPI - General Adult General Chief complaint: Abdominal Pain Stated complaint: Abd pain, n/v/d Time Seen by Provider: 12/07/22 01:36 History of Present Illness HPI narrative: Patient is a 52-year-old gentleman who presents the emergency department with chief complaint of abdominal pain. Patient reports that he has prior history of colitis and also history of bowel obstructions patient reports that he started having pain in the left lower quadrant reports the pain is not improved by anything the patient reports that he has had some nausea with this as well. Patient reports he has had a bowel resection done in [place] patient reports fever and reports that he does have difficult time controlling his pain. Related Data Home Medications Medication Instructions Recorded Confirmed escitalopram oxalate 20 mg tablet 20 mg PO DAILY 07/18/21 07/18/21 glipizide 10 mg tablet 10 mg PO DAILY 07/18/21 07/18/21 modafinil 100 mg tablet 100 mg PO DAILY PRN Systemic Signs 07/18/21 07/18/21 And Symptoms trazodone 100 mg tablet 100 mg PO HS 07/18/21 07/18/21 dulaglutide 0.75 mg/0.5 mL 125 mg subcut 10/19/21 subcutaneous pen injector (Trulicity) empagliflozin 25 mg tablet 25 mg PO DAILY 10/19/21 (Jardiance) Allergies Allergy/AdvReac Type Severity Reaction Status Date / Time gabapentin Allergy Unknown Verified 12/07/22 00:57 ketorolac [From Toradol] Allergy Unknown Verified 12/07/22 00:57 promethazine [From Phenergan] Allergy Unknown Verified 12/07/22 00:57 zolpidem [From Ambien] AdvReac Other Verified 12/07/22 00:57 Review of Systems Review of Systems: A 10 system review of systems was completed on the patient and is negative except for what is stated in the HPI. Nursing and ancillary documentation was reviewed. [facility] Past Medical History Medical History Depression Diabetes mellitus Diverticulitis History of small bowel obstruction PTSD (post-traumatic stress disorder) Surgical History Surgical History H/O hand surgery History of ankle surgery right History of appendectomy Laparoscopic appendectomy History of colon resection Sigmoid colon resection for diverticulitis 6-7 years ago in [place] History of exploratory laparotomy Ex lap with adhesiolysis for small bowel obstruction 3-4 years ago in [place]. History of Ludmila fundoplication Laparoscopic Hx of cholecystectomy Laparoscopic cholecystectomy Family History Family History Father Heart disease Grandparent Lung cancer Social History Social History Social History: the patient is engaged. he has a son. He does not have a durable power associate attorney for healthcare poa and he is full code. He denies any alcohol or illicit drug use. 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 Smoking status: Never smoker Alcohol intake: never Substance use: never Substance use type: does not use Gender identity (if verbalized by the patient): Male Spiritual care concerns: No Exam Narrative: GENERAL: Well-appearing, well-nourished, and in no acute distress. HEAD: Normocephalic, atraumatic. EYES: PERRLA and EOMI. ENT: Nares clear, no rhinorrhea or epistaxis. Mucous membranes moist. NECK: Supple. CHEST: Clear to auscultation. No respiratory distress. HEART: Regular rate and rhythm. No murmur heard. Normal peripheral pulses. ABDOMEN: Soft, tenderness to palpation in the left lower quadrant, nondistended, normal active bowel sounds. EXTREMITIES: Normal range of motion. No edema. SKIN: Warm, dry, no rash. NEURO: No focal deficits. Alert and oriented x3. PSYCH: Normal mood and affect. Course Vital Signs Vital signs: Vital Signs Temperature 37.1 C 12/07/22 00:53 Pulse Rate 108 H
[2022-12-07 05:51] VITALS: BP 121/88; PULSE 85; RESP 18; O2SAT 98
[2022-12-07 07:33] VITALS: BP 113/84; PULSE 82; RESP 18; O2SAT 98
== END 2022-12-07 07:35 | disposition home or self-care (01) ==
PROVIDERS: Emergency Provider Emergency Medicine; PCP Family Medicine
DX: R10.84 Generalized abdominal pain (principal); F32.A Depression, unspecified; E11.9 Type 2 diabetes mellitus without complications
CPT/HCPCS: 36415; 74177; 80053; 81003; 83690; 85025; 96361; 96374; 96375; 96376; 99284; J1170; J2405; J7030; Q9967

== ENCOUNTER 2023-02-02 00:07 | Inpatient (IN) | payer OTHER, SELFPAY ==
[2023-02-02] VITALS (9 sets, daily range): BP systolic 117–130; BP diastolic 72–85; PULSE 67–91; RESP 14–19; TEMP 36.2–36.8; O2SAT 92–100; BMI 26.6
--- NOTE | ~2023-02-02 | XR_ITS ---
EXAM: XR abdomen NG/feed tube rechec DATE: 02/02/2023 17:23 HISTORY: NGT placement verification . COMPARISON: None available. FINDINGS: NG tube, tip and side port project over the stomach. Low lung volumes with bibasilar atele ctasis. Partially visualized dilated small bowel loops. No organomegaly. No abnormal abdominal calcif ication. Regional bones and soft tissues normal for age. IMPRESSION: NG tube, in good position. Reviewed, dictated and finalized at location K. IMPRESSION: NG tube, in good position.
--- NOTE | ~2023-02-02 | XR_ITS ---
EXAMINATION: XR sm bowel follow through DATE: 02/03/2023 13:53 INDICATION: Small bowel obstruction. TECHNIQUE: Oral contrast was administered, and a time course of radiographs of the abdomen was obtain ed. Fluoroscopy of the small bowel was not performed. Fluoroscopy exposure time was 0 minutes. The to piero number of images was 7. COMPARISON: CT abdomen and pelvis 02/02/2023 FINDINGS: The nasogastric tube tip is in the stomach. There are surgical clips in the right upper quadrant and in the left lower quadrant. There are no dilated loops of bowel. No abnormal mass or stricture. Trans it time from the stomach to proximal colon was approximately 1 hour 15 minutes. IMPRESSION: 1. Normal small bowel series. Reviewed, dictated and finalized at location A.
--- NOTE | ~2023-02-02 | XR_ITS ---
EXAMINATION: XR abdomen NG/feed tube insert DATE: 02/02/2023 16:29 INDICATION: Nasogastric tube placement. TECHNIQUE: An upright view of the abdomen was obtained. COMPARISON: Abdomen radiographs 07/19/2021, CT abdomen and pelvis 02/02/2023 FINDINGS: There is dilated small bowel in the upper abdomen. The lower abdomen is excluded. The colon is normal in caliber. The nasogastric tube tip is in the stomach with proximal side port in the dist al esophagus. Surgical clips in the right upper quadrant are likely from cholecystectomy. IMPRESSION: 1. Nasogastric tube tip in the stomach with proximal side port in the distal esophagus. Advancement 5 cm is recommended. 2. Dilated small bowel, consistent with adynamic ileus versus partial small bowel obstruction. Reviewed, dictated and finalized at location A. IMPRESSION: 1. Nasogastric tube tip in the stomach with proximal side port in the distal es ophagus. Advancement 5 cm is recommended. 2. Dilated small bowel, consistent with adynamic ileus versus partial small bow el obstruction.
--- NOTE | ~2023-02-02 | CT_ITS ---
EXAMINATION: CT abdomen pelvis w con INDICATION: Left lower quadrant pain TECHNIQUE: Computed tomographic images of the abdomen and pelvis were obtained after the administrati on of 100 cc of Omnipaque 350 intravenous contrast. The dose-length product (DLP) was 799.52 mGy-cm. Automated exposure control and iterative reconstruction technique were employed. COMPARISON: 12/07/2022 FINDINGS: Again noted are chronic airspace opacities of the visualized lung bases. The heart size is normal. The gallbladder is surgically absent. The liver, spleen, pancreas, and adrenal glands are nor mal. The kidneys are unremarkable. No pathologically enlarged abdominal or pelvic lymph nodes are chyna ntified. There is a short segment of mildly dilated small bowel in the right mid abdomen. The distal small bowel is relatively decompressed. There is no free intraperitoneal gas. A surgical anastomosis is noted in the sigmoid colon. There is a small umbilical hernia containing fat. There is mild lumbar spondylosis. IMPRESSION: 1. Dilated small bowel in the right mid abdomen, consistent with ileus versus partial obstruction. Reviewed, dictated and finalized at location A. IMPRESSION: 1. Dilated small bowel in the right mid abdomen, consistent with ileus versus p artial obstruction.
[2023-02-02 00:35] LABS: Appearance Urine Clear (Clear); Bilirubin Urine Negative (Negative); Blood Urine Negative (Negative); Color Urine Yellow (Yellow); Glucose Urine UA Negative (Negative); Ketones Urine Negative (Negative); Leukocyte Esterase Ur Negative LEU/UL (Negative); Nitrate Urine Negative (Negative); Protein Urine Negative (Negative); Specific Grav Ur 1.015 (1.001-1.035); pH Urine 5.5 (5.0-9.0)
[2023-02-02 00:46] LABS: Add Urine Microscopic? NO
[2023-02-02 01:26] LABS: Basophils Percent Auto 0.7 % (0.2-1.2); Eosinophils Absolute Auto 0.1 K/mm3 (0-0.3); Eosinophils Percent Auto 1.5 % (0-4.4); Hematocrit 42.6 % (42.0-52.0); Immature Granulocyte Absolute 0.01 K/mm3 (0.00-0.031); Immature Granulocyte Percent A 0.2 % (0-0.5); Lymphocytes Absolute Auto 2.17 K/mm3 (0.9-3.2); Lymphocytes Percent Auto 35.6 % (18.3-44.2); Mean Corpuscular HGB Conc 32.9 g/dl (32-36); Mean Corpuscular Hemoglobin 26.7 pg (26-34); Mean Corpuscular Volume 81.1 fl (80-100); Mean Platelet Volume 9.3 fl (7.4-10.4); Monocytes Absolute Auto 0.4 K/mm3 (0.1-0.6); Monocytes Percent Auto 6.1 % (2.6-8.5); Neutrophils Absolute Auto 3.4 K/mm3 (1.3-6.7); Neutrophils Percent Auto 55.9 % (45.5-73.1); Platelet Count Result 254 k/mm3 (150-375); Red Blood Count 5.25 M/mm3 (4.6-6.20); Red Cell Distribution Width 13.6 % (11.5-14.5); White Blood Count 6.1 K/mm3 (4.5-10.0)
[2023-02-02 01:40] LABS: Alanine Aminotransferase 28 U/L (6-50); Albumin Level 4.1 g/dL (3.5-5.1); Alkaline Phosphatase 57 U/L (38-126); Anion Gap 4 mmol/L (8-16); Aspartate Amino Transferase 26 U/L (17-59); Bilirubin,Total 0.3 mg/dL (0.2-1.3); Blood Urea Nitrogen 16 mg/dL (9-20); Calcium 8.3 mg/dL (8.4-10.2); Carbon Dioxide 28 mmol/L (22-30); Chloride 100 mmol/L (98-107); Estimated CRCL calculation 89 ml/min; Estimated Glomerular Filt Rate > 60; Glucose 175 mg/dL (65-110); Lipase 236 U/L (23-300); Potassium 4.2 mmol/L (3.4-5.0); Sodium 132 mmol/L (137-145)
--- NOTE | 2023-02-02 01:40 | ED.GENADULT ---
HPI - General Adult General Chief complaint: Abdominal Pain Stated complaint: abd pain Time Seen by Provider: 02/02/23 01:22 History of Present Illness HPI narrative: Patient 52-year-old gentleman who presents the emergency department with chief complaint of abdominal pain. The patient reports that he has prior history of multiple abdominal surgeries has had a bowel resection and reports that he started having pain the last couple days reports that his abdomen feels more uncomfortable and reports the pain is more in the left lower quadrant. Patient reports no fever does report that he had some nausea does report that he had a bowel movement that was, loose stool and has passed gas today. Related Data Home Medications Medication Instructions Recorded Confirmed escitalopram oxalate 20 mg tablet 20 mg PO DAILY 07/18/21 07/18/21 glipizide 10 mg tablet 10 mg PO DAILY 07/18/21 07/18/21 modafinil 100 mg tablet 100 mg PO DAILY PRN Systemic Signs 07/18/21 07/18/21 And Symptoms trazodone 100 mg tablet 100 mg PO HS 07/18/21 07/18/21 dulaglutide 0.75 mg/0.5 mL 125 mg subcut 10/19/21 subcutaneous pen injector (Trulicity) empagliflozin 25 mg tablet 25 mg PO DAILY 10/19/21 (Jardiance) Allergies Allergy/AdvReac Type Severity Reaction Status Date / Time gabapentin Allergy Unknown Verified 02/02/23 01:17 ketorolac [From Toradol] Allergy Unknown Verified 02/02/23 01:17 promethazine [From Phenergan] Allergy Unknown Verified 02/02/23 01:17 zolpidem [From Ambien] AdvReac Other Verified 02/02/23 01:17 Review of Systems Review of Systems: A 10 system review of systems was completed on the patient and is negative except for what is stated in the HPI. Nursing and ancillary documentation was reviewed. [facility] Past Medical History Medical History Depression Diabetes mellitus Diverticulitis History of small bowel obstruction PTSD (post-traumatic stress disorder) Surgical History Surgical History H/O hand surgery History of ankle surgery right History of appendectomy Laparoscopic appendectomy History of colon resection Sigmoid colon resection for diverticulitis 6-7 years ago in [place] History of exploratory laparotomy Ex lap with adhesiolysis for small bowel obstruction 3-4 years ago in [place]. History of Ludmila fundoplication Laparoscopic Hx of cholecystectomy Laparoscopic cholecystectomy Family History Family History Father Heart disease Grandparent Lung cancer Social History Social History Social History: the patient is engaged. he has a son. He does not have a durable power employee benefits attorney for healthcare poa and he is full code. He denies any alcohol or illicit drug use. 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 Smoking status: Never smoker Alcohol intake: never Substance use: never Substance use type: does not use Gender identity (if verbalized by the patient): Male Spiritual care concerns: No Exam Narrative: GENERAL: Well-appearing, well-nourished, and in no acute distress. HEAD: Normocephalic, atraumatic. EYES: PERRLA and EOMI. ENT: Nares clear, no rhinorrhea or epistaxis. Mucous membranes moist. NECK: Supple. CHEST: Clear to auscultation. No respiratory distress. HEART: Regular rate and rhythm. No murmur heard. Normal peripheral pulses. ABDOMEN: Soft, diffusely tender to palpation, nondistended, normal active bowel sounds. EXTREMITIES: Normal range of motion. No edema. SKIN: Warm, dry, no rash. NEURO: No focal deficits. Alert and oriented x3. PSYCH: Normal mood and affect. Course Vital Signs Vital signs: Vital Signs Temperature 36.3 C L 02/02/23 00:12 Pulse Rate 91 02/02/23 00:12 Respiratory Rate
[2023-02-02] MEDS: ONDANSETRON INJ 4 MG/2 ML VIAL IV PUSH ×2 (01:45→03:41)
[2023-02-02] MEDS: HYDROmorphone HCL INJ (*CRX) 1 MG/ML SYR IV PUSH ×10 (01:45→23:49)
[2023-02-02] MEDS: SODIUM CHLORIDE 0.9% IV 1,000 ML 999 ML IV CONT (01:46)
[2023-02-02] MEDS: SODIUM CHLORIDE 0.9% IV 1,000 ML 125 ML IV CONT ×2 (09:08→18:05)
--- NOTE | 2023-02-02 09:32 | ADMGEN ---
This patient, Erich Allen, was admitted to [facility] Surg Room 328-01. Patient/family oriented to hospital policies and general routines including ID bracelet, bed and alarms, visiting hours, pain management, procedures, bathroom and other care routines, personal items, smoking policy, room service/diet, and visiting hours. Information on how to activate the Rapid Response Team has been discussed. Patient/Family are encouraged to report perceived risks to care and to ask questions if they do not understand what they are told or what they should do.
[2023-02-02 11:51] LABS: Glucose Point of Care 108 mg/dl (65-105)
--- NOTE | 2023-02-02 11:54 | PM.CNGS ---
Assessment and Plan Assessment and plan (1) Partial small bowel obstruction: Code(s): K56.600 - Partial intestinal obstruction, unspecified as to cause Status: Acute Assessment and Plan: exam largely benign, pt would like to hold of on NG at this time, cont serial exams and bowel rest, encourage OOB, will place NG if symptoms worsen History of Present Illness Consult details Consult date: 02/02/23 Reason for consult: abdominal pain Requesting physician: Sudheer Allen PA-C Narrative: The patient is a 52-year-old male presenting to the emergency department complaining of severe crampy abdominal pain. The patient reports that the symptoms have been progressively worsening over the last few days. The patient reports that he had a small bowel movement yesterday, for his last regular bowel movement was probably 5 days ago. The patient reports nausea, however has not had any emesis. He reports decreased appetite in general malaise over this time span. Patient has had multiple abdominal surgeries in the past and reports conservative treatment for small bowel obstructions as well. Review of Systems Constitutional: Constitutional: Reports as per HPI, Reports anorexia, Denies chills, Reports fatigue, Denies fever(s), Reports lethargy, Reports malaise, Reports poor appetite, Reports weakness, Denies weight gain and Denies weight loss Eyes: Eyes: Reports no additional eye complaints ENT: Reports system reviewed and no additional complaints, except as documented Cardiovascular: Cardiovascular: Reports no additional cardiovascular complaints Respiratory: Respiratory: Reports no additional respiratory complaints Gastrointestinal: Gastrointestinal: Reports as per HPI, Reports abdominal pain, Reports belching, Reports bloating, Reports change in stool character, Reports GI cramping, Reports early satiety, Reports nausea and Denies vomiting Genitourinary: Genitourinary: Reports no additional male genitourinary complaints Musculoskeletal: Musculoskeletal: Reports no additional musculoskeletal complaints Integumentary/Breasts: Skin/Breast: Reports system reviewed and no additional complaints, except as docu Neurologic: Reports system reviewed and no additional complaints, except as documented Psychiatric: Psychiatric: Reports no additional psychiatric complaints Endocrine: Endocrine: Reports no additional endocrine complaints Hematologic/Lymphatic: Hematologic/Lymphatic: Reports no additional hematologic/lymphatic complaints Allergic/Immunologic: Allergic/Immunologic: Reports no additional allergic/immunologic complaints PMFSH Past Medical History Medical History Depression Diabetes mellitus Diverticulitis History of small bowel obstruction PTSD (post-traumatic stress disorder) Surgical History Surgical History H/O hand surgery History of ankle surgery right History of appendectomy Laparoscopic appendectomy History of colon resection Sigmoid colon resection for diverticulitis 6-7 years ago in [place] History of exploratory laparotomy Ex lap with adhesiolysis for small bowel obstruction 3-4 years ago in [place]. History of Ludmila fundoplication Laparoscopic Hx of cholecystectomy Laparoscopic cholecystectomy Family History Family History Father Heart disease Grandparent Lung cancer Social History Social History Social History: the patient is engaged. he has a son. He does not have a durable power associate attorney for healthcare poa and he is full code. He denies any alcohol or illicit drug use. 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 Smoking status: Never smoker Alcohol intake: never Substance use: never Substance use type: does not use Lack of Transportation: YES Lack of F
--- NOTE | 2023-02-02 13:45 | PM.IMHP ---
H&P: HPI History of Present Illness Date/Time: 02/02/23 13:45 Chief Complaint: Abdominal pain. Narrative: This is a 52-year-old male with history of several abdominal surgeries, small-bowel obstruction, diverticulitis, and type 2 diabetes mellitus who presented to the emergency department via private for evaluation of abdominal pain. The patient provides the following history. He reports a gradual onset of diffuse abdominal cramping that has progressively worsened the last several days. Symptoms are similar to when he has had bowel obstructions. Unfortunately his pain has continued to get more intense as each day passes. He also complains generalized malaise and nausea but he has not had any significant vomiting. His last regular bowel movement was about 5 days ago and yesterday he reports having a loose stools without obvious blood or mucus. He also complains of generalized malaise, nausea, and a decrease in appetite. His pain has intensified over the last day or so and he came in for evaluation. The symptoms are similar to when he has had previous bowel obstructions. He denies fever, vomiting, and blood in mucus in the stool. He was afebrile on arrival to the ED with stable vital signs. CMP and CBC were pretty unremarkable aside from a sodium of 132 and a glucose of 175. UA was normal. CT of the abdomen and pelvis showed dilated small bowel in the right mid abdomen consistent with ileus versus partial obstruction and he is being admitted in this setting for supportive care and surgery consultation. Review of Systems Review of Systems: Twelve systems were reviewed and are negative except for as per HPI. [facility] Past Medical History Medical History (Updated 02/02/23 @ 13:52 by Abigail Rosenthal PA-C) Depression Diverticulitis History of small bowel obstruction Posttraumatic stress disorder Type 2 diabetes mellitus Surgical History Surgical History (Updated 02/02/23 @ 13:52 by Abigail Rosenthal PA-C) History of colon resection Sigmoid colon resection for diverticulitis 6-7 years ago in [place]. History of exploratory laparotomy With adhesiolysis for small bowel obstruction 3-4 years ago in [place]. History of laparoscopic appendectomy History of laparoscopic cholecystectomy History of orthopedic surgery Right ankle and hand surgery. Status post laparoscopic Ludmila fundoplication Family History Family History Father Heart disease Grandparent Lung cancer Social History Social History (Updated 02/02/23 @ 13:53 by Abigail Rosenthal PA-C) Social History: Surrogate medical decision maker: Annelise Garcia, significant other. Code status: Full code. Smoking status: Never smoker Alcohol intake: never Substance use: never Substance use type: does not use Lack of Transportation: YES Lack of Food: Never True Current Housing: I Have Housing Concerned About Future Housing: No Difficulty Paying Gas/Electric Bills: No Difficulty Paying for Meds: No Currently Unemployed: No Education: High School Diploma/GED Difficulty w/ Childcare or Family Care: No Additional living arrangements comments: Lives in [place] with significant other. He has 1 son. Additional occupation/education comments: Served in the [email or web address]. 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 Spiritual care concerns: No Meds Home Medications and Allergies Home Medications Medication Instructions Recorded Confirmed Type escitalopram oxalate 20 mg tablet 20 mg PO DAILY 07/18/21 02/02/23 History modafinil 100 mg tablet 100 mg PO DAILY PRN Systemic Signs 07/18/21 02/02/23 History And Symptoms trazodone 100 mg tablet 100 mg PO HS 07/18/21 02/02/23 History dulaglutide 0.75 mg/0.5 mL 125 mg subcut WEEKLY 10/19/21 02/02/23 History subcutaneous pen injector (Trulicity) empagliflozin 25 mg tablet 25 mg PO DAILY 10/19/21 02/02/23 History (Jardiance) ondansetron 4 mg disintegrating 4
[2023-02-02 17:08] LABS: Glucose Point of Care 109 mg/dl (65-105)
[2023-02-02] MEDS: FAMOTIDINE 20 MG/2 ML VIAL IV PUSH (21:05)
[2023-02-02 23:48] LABS: Glucose Point of Care 108 mg/dl (65-105)
[2023-02-03] MEDS: HYDROmorphone HCL INJ (*CRX) 1 MG/ML SYR IV PUSH ×7 (02:17→23:44)
[2023-02-03] MEDS: SODIUM CHLORIDE 0.9% IV 1,000 ML 125 ML IV CONT (02:18)
[2023-02-03 06:00] VITALS: BP 126/77; PULSE 78; RESP 16; TEMP 36.6; O2SAT 94
[2023-02-03 06:01] LABS: Glucose Point of Care 130 mg/dl (65-105)
[2023-02-03] MEDS: ONDANSETRON INJ 4 MG/2 ML VIAL IV PUSH ×2 (06:09→20:59)
[2023-02-03 06:34] LABS: Hematocrit 43.3 % (42.0-52.0); Hemoglobin 14.2 g/dL (14.0-18.0); Mean Corpuscular HGB Conc 32.8 g/dl (32-36); Mean Corpuscular Hemoglobin 26.7 pg (26-34); Mean Corpuscular Volume 81.5 fl (80-100); Platelet Count Result 239 k/mm3 (150-375); Red Blood Count 5.31 M/mm3 (4.6-6.20); Red Cell Distribution Width 13.5 % (11.5-14.5); White Blood Count 5.9 K/mm3 (4.5-10.0)
[2023-02-03 06:37] LABS: Anion Gap 6 mmol/L (8-16); Blood Urea Nitrogen 9 mg/dL (9-20); Calcium 8.1 mg/dL (8.4-10.2); Carbon Dioxide 29 mmol/L (22-30); Chloride 97 mmol/L (98-107); Estimated CRCL calculation 89 ml/min; Estimated Glomerular Filt Rate > 60; Glucose 125 mg/dL (65-110); Magnesium 2.2 mg/dL (1.6-2.3); Potassium 4.2 mmol/L (3.4-5.0); Sodium 132 mmol/L (137-145)
[2023-02-03 07:18] LABS: Hemoglobin A1C 6.8 % (<5.7)
[2023-02-03 08:25] VITALS: O2SAT 91
[2023-02-03] MEDS: SODIUM CHLORIDE 0.9% IV 1,000 ML 100 ML IV CONT ×3 (09:14→23:50)
[2023-02-03] MEDS: FAMOTIDINE 20 MG/2 ML VIAL IV PUSH ×2 (09:15→20:59)
--- NOTE | 2023-02-03 10:40 | PM.PNGS ---
Progress Note: A&P Assessment and Plan (1) Partial small bowel obstruction: Code(s): K56.600 - Partial intestinal obstruction, unspecified as to cause Status: Acute Assessment and Plan: exam largely benign, will cont NG, bowel rest, get SBS today for further eval Subjective Subjective Date/Time Seen: 02/03/23 10:40 Interval history: feels ok, NG placed yest evening secondary to pain, nausea Review of Systems Review of Systems: All systems reviewed & are unremarkable except as noted in HPI and below Exam Const: General: cooperative, comfortable and no acute distress Resp: Auscultation: clear to auscultation bilaterally Cardio: Rate: regular rate Rhythm: regular rhythm GI: Inspection: normal to inspection and distended GI Palp: Yes abdominal tenderness, Yes Soft to palpation, Yes Tenderness to palpation present (GI), No Guarding due to palpation present (GI) and No Rigid due to palpation Objective Data Vital Signs Vital Signs: Vital Signs - 24 hr 02/02/23 14:00 02/02/23 21:42 02/02/23 20:00 Temperature 36.3 C L 36.2 C L Pulse Rate 68 81 81 Respiratory Rate 14 16 16 Blood Pressure 120/76 125/72 Pulse Oximetry 97 92 92 Oxygen Delivery Room Air 02/03/23 06:00 Temperature 36.6 C Pulse Rate 78 Respiratory Rate 16 Blood Pressure 126/77 Pulse Oximetry 94 Oxygen Delivery Intake/Output Intake/Output: Intake & Output 01/31/23 02/01/23 02/02/23 02/03/23 23:59 23:59 23:59 23:59 Intake Total 1999 1999 Output Total 650 2700 Balance 1350 -700 Meds/Results Medications: Active Medications Generic Name Dose Route Start Last Admin Trade Name Freq PRN Reason Stop Dose Admin Dextrose 12.5 gm 02/02/23 13:55 Dextrose 50% 25 Gm/50 Ml Syringe IV PUSH PRN PRN Hypoglycemia Protocol Famotidine 20 mg 02/02/23 21:00 02/03/23 09:15 Famotidine 20 Mg/2 Ml Vial IV PUSH 20 mg Q12HR ENDER Administration Glucagon 1 mg 02/02/23 13:55 Glucagon For Inj 1 Mg Vial IM PRN PRN Hypoglycemia Protocol Glucose 15 gm 02/02/23 13:55 Glucose Oral Gel 15 Gm Of Glucse In 37.5 Gm Tube PO PRN PRN Hypoglycemia Protocol Hydromorphone HCl 1 mg 02/02/23 11:35 02/03/23 09:15 Hydromorphone Hcl Inj (*Crx) 1 Mg/Ml Syr IV PUSH 1 mg Q2H PRN Administration Pain Rated 7-10 Sodium Chloride 1,000 mls @ 100 mls/hr 02/02/23 07:10 02/03/23 09:14 Normal Saline Iv IV CONT 100 mls/hr .Q10H ENDER Administration Dextrose 1,000 mls @ 100 mls/hr 02/02/23 13:55 Dextrose 5% 1,000 Ml IVPB PRN PRN Hypoglycemia Protocol Insulin Aspart 2 - 5 units 02/02/23 17:00 02/03/23 08:25 Insulin Aspart (*Bkc) 100 Units/Ml SUB-Q Not Given TIDWM ENDER Protocol Insulin Aspart 1 - 2 units 02/02/23 21:00 02/02/23 23:51 Insulin Aspart (*Bkc) 100 Units/Ml SUB-Q Not Given HS ENDER Protocol Ondansetron HCl 4 mg 02/02/23 07:08 02/03/23 06:09 Ondansetron Inj 4 Mg/2 Ml Vial IV PUSH 4 mg Q4H PRN Administration Nausea Radiology Results: ITS Impressions Abdomen/Pelvis CT 02/02/23 06:40 IMPRESSION: 1. Dilated small bowel in the right mid abdomen, consistent with ileus versus partial obstruction. Abdomen X-Ray 02/02/23 18:03 IMPRESSION: NG tube, in good position. Labs Labs: Laboratory Results - last 24 hr 02/02/23 02/02/23 02/02/23 11:43 17:04 23:41 WBC RBC Hgb Hct MCV MCH MCHC RDW Plt Count MPV Sodium Potassium Chloride Carbon Dioxide Anion Gap BUN Creatinine Estim Creat Clear Calc Estimated GFR Glucose POC Capillary Glucose 108 H 109 H 108 H Hemoglobin A1c Calcium Magnesium 02/03/23 02/03/23 05:57 06:03 WBC 5.9 RBC 5.31 Hgb 14.2 Hct 43.3 MCV 81.5 MCH 26.7 MCHC 32.8 RDW 13.5 Plt Count 239 MPV 9.0 Sodium 132 L Potassium 4.2
--- NOTE | 2023-02-03 11:30 | PM.IMPN ---
Progress Note: A&P Assessment and Plan (1) Partial small bowel obstruction: Code(s): K56.600 - Partial intestinal obstruction, unspecified as to cause Status: Acute Assessment and Plan: Presented with abdominal pain, distension, nausea CT shows evidence of partial small-bowel obstruction right mid abdomen Patient with history of prior extractions, previously requiring colon resection Appreciate general surgery consultation and recommendations Continue NG decompression, NPO diet, IV fluid rehydration Supportive care to include analgesics antiemetics as needed Continue with serial abdominal exams Small-bowel follow-through ordered today (2) Type 2 diabetes mellitus: Code(s): E11.9 - Type 2 diabetes mellitus without complications Status: Acute Assessment and Plan: A1c is 6.8. Blood sugars are well controlled Continue Accu-Cheks, sliding scale insulin, hypoglycemic protocol Subjective Date/time seen: 02/03/23 11:30 Interval history: Date of service: 02/03/2023 Erich Allen is a 52-year-old male with a history type 2 diabetes mellitus, PTSD, diverticulitis, small-bowel obstruction, and colon resection who is seen in follow-up for partial SBO. Patient reports he is feeling somewhat improved today. Feels his abdomen is less distended. Denies cramping. Does endorse nausea but no vomiting. Not passing flatus. No bowel movements. No fevers or chills. Denies shortness of breath, cough chest pain. No urinary symptoms Review of Systems Review of Systems: All systems reviewed & are unremarkable except as noted in HPI and below Exam Narrative: General: Well-nourished, well-appearing 52-year-old -male, sitting up in bed, comfortable, NARD Neuro: awake, alert and oriented x4, speech clear, no focal neuro deficits noted HEENMT: normocephalic, atraumatic, EOMI, sclerae anicteric Respiratory: clear to auscultation bilaterally, nonlabored breathing Cardio: regular rate, regular rhythm with S1-S2 Abdomen: Mildly distended, absent bowel sounds, soft, nontender to palpation Extremities: no edema, erythema, or tenderness to palpation Skin: no rashes or lesions, warm and dry Psych: appropriate mood and affect, judgment and insight intact Objective Data Vital Signs Vital Signs: Vital Signs - 24 hr 02/02/23 14:00 02/02/23 21:42 02/02/23 20:00 Temperature 97.4 F L 97.1 F L Pulse Rate 68 81 81 Respiratory Rate 14 16 16 Blood Pressure 120/76 125/72 Pulse Oximetry 97 92 92 Oxygen Delivery Room Air 02/03/23 06:00 02/03/23 08:25 Temperature 97.9 F Pulse Rate 78 Respiratory Rate 16 Blood Pressure 126/77 Pulse Oximetry 94 91 Oxygen Delivery Room Air Intake/Output Intake/Output: Intake & Output 01/31/23 02/01/23 02/02/23 02/03/23 23:59 23:59 23:59 23:59 Intake Total 1999 3000 Output Total 650 2700 Balance 1350 300 Meds/Results Medications: Active Medications Generic Name Dose Route Start Last Admin Trade Name Freq PRN Reason Stop Dose Admin Dextrose 12.5 gm 02/02/23 13:55 Dextrose 50% 25 Gm/50 Ml Syringe IV PUSH PRN PRN Hypoglycemia Protocol Famotidine 20 mg 02/02/23 21:00 02/03/23 09:15 Famotidine 20 Mg/2 Ml Vial IV PUSH 20 mg Q12HR ENDER Administration Glucagon 1 mg 02/02/23 13:55 Glucagon For Inj 1 Mg Vial IM PRN PRN Hypoglycemia Protocol Glucose 15 gm 02/02/23 13:55 Glucose Oral Gel 15 Gm Of Glucse In 37.5 Gm Tube PO PRN PRN Hypoglycemia Protocol Hydromorphone HCl 1 mg 02/02/23 11:35 02/03/23 09:15 Hydromorphone Hcl Inj (*Crx) 1 Mg/Ml Syr IV PUSH 1 mg Q2H PRN Administration Pain Rated 7-10 Sodium Chloride 1,000 mls @ 100 mls/hr 02/02/23 07:10 02/03/23 11:01 Normal Saline Iv IV CONT 100 mls/hr .Q10H ENDER Administration Dextrose 1,000 mls @ 100 mls/hr 02/02/23 13:55 Dextrose 5% 1,000 Ml IVPB PRN PRN Hypoglycem
[2023-02-03 12:25] LABS: Glucose Point of Care 117 mg/dl (65-105)
[2023-02-03 18:48] LABS: Glucose Point of Care 117 mg/dl (65-105)
--- NOTE | 2023-02-03 19:35 | PC.NURSE ---
Pt is A&O male who participated and contributed in plan of care. Pt reports pain in LLQ. Pt does not express any needs at this time. Pt had Small bowel follow through today. Pt reports having diarrhea since. Pt monitored for any changes in status while here.
[2023-02-03 20:50] VITALS: BP 126/81; PULSE 79; RESP 16; TEMP 36.1; O2SAT 96
[2023-02-03 21:25] LABS: Glucose Point of Care 108 mg/dl (65-105)
[2023-02-04 12:10] LABS: Glucose Point of Care 112 mg/dl (65-105)
[2023-02-04 12:37] LABS: Glucose Point of Care 106 mg/dl (65-105)
[2023-02-04 16:39] LABS: Glucose Point of Care 108 mg/dl (65-105)
[2023-02-04 20:27] LABS: Glucose Point of Care 135 mg/dl (65-105)
[2023-02-04] MEDS: traZODone HCL 50 MG TABLET 100 MG PO (21:15)
[2023-02-04 21:22] VITALS: BP 138/95; PULSE 82; RESP 16; TEMP 36.8; O2SAT 98
--- NOTE | 2023-02-04 21:26 | PC.NURSE ---
Paper documentation exists on this patient due to [facility] downtime on 02/04/23 from 0030 to 1930 .
[2023-02-05] MEDS: SODIUM CHLORIDE 0.9% IV 1,000 ML 100 ML IV CONT (04:13)
[2023-02-05 05:21] VITALS: BP 137/83; PULSE 84; RESP 18; TEMP 37.2; O2SAT 98
[2023-02-05 06:02] LABS: Basophils Percent Auto 0.4 % (0.2-1.2); Eosinophils Absolute Auto 0.1 K/mm3 (0-0.3); Eosinophils Percent Auto 2.6 % (0-4.4); Hematocrit 43.1 % (42.0-52.0); Hemoglobin 14.2 g/dL (14.0-18.0); Immature Granulocyte Absolute 0.01 K/mm3 (0.00-0.031); Immature Granulocyte Percent A 0.2 % (0-0.5); Lymphocytes Absolute Auto 1.63 K/mm3 (0.9-3.2); Mean Corpuscular HGB Conc 32.9 g/dl (32-36); Mean Corpuscular Hemoglobin 27.2 pg (26-34); Mean Corpuscular Volume 82.4 fl (80-100); Mean Platelet Volume 8.8 fl (7.4-10.4); Monocytes Absolute Auto 0.4 K/mm3 (0.1-0.6); Monocytes Percent Auto 8.4 % (2.6-8.5); Neutrophils Absolute Auto 2.9 K/mm3 (1.3-6.7); Neutrophils Percent Auto 56.4 % (45.5-73.1); Platelet Count Result 223 k/mm3 (150-375); Red Blood Count 5.23 M/mm3 (4.6-6.20); Red Cell Distribution Width 13.8 % (11.5-14.5); White Blood Count 5.1 K/mm3 (4.5-10.0)
[2023-02-05 06:24] LABS: Alanine Aminotransferase 70 U/L (6-50); Albumin Level 3.9 g/dL (3.5-5.1); Alkaline Phosphatase 63 U/L (38-126); Anion Gap 5 mmol/L (8-16); Aspartate Amino Transferase 31 U/L (17-59); Bilirubin,Total 0.5 mg/dL (0.2-1.3); Blood Urea Nitrogen 8 mg/dL (9-20); Calcium 8.5 mg/dL (8.4-10.2); Carbon Dioxide 31 mmol/L (22-30); Chloride 102 mmol/L (98-107); Estimated CRCL calculation 80 ml/min; Estimated Glomerular Filt Rate > 60; Glucose 134 mg/dL (65-110); Potassium 4.3 mmol/L (3.4-5.0); Sodium 138 mmol/L (137-145)
[2023-02-05 07:59] LABS: Glucose Point of Care 205 mg/dl (65-105)
[2023-02-05] MEDS: INSULIN ASPART (*BKC) 100 UNITS/ML SUB-Q ×2 (08:51→12:00)
[2023-02-05] MEDS: ESCITALOPRAM OXALATE 10 MG TABLET 20 MG PO (08:52)
[2023-02-05] MEDS: FAMOTIDINE 20 MG/2 ML VIAL IV PUSH (08:52)
--- NOTE | 2023-02-05 09:40 | PM.PNGS ---
Progress Note: A&P Assessment and Plan (1) Partial small bowel obstruction: Code(s): K56.600 - Partial intestinal obstruction, unspecified as to cause Status: Acute Assessment and Plan: resolved, diabetic diet today, home soon, no acute surgical issues, will s/o, call c ?s, issues Subjective Subjective Date/Time Seen: 02/05/23 09:40 Interval history: feels good, no pain, no N/V, yi clears, +bowel fxn Review of Systems Review of Systems: All systems reviewed & are unremarkable except as noted in HPI and below Exam Const: General: cooperative, comfortable and no acute distress Resp: Auscultation: clear to auscultation bilaterally Cardio: Rate: regular rate Rhythm: regular rhythm GI: Inspection: normal to inspection and non-distended GI Palp: No abdominal tenderness, Yes Soft to palpation, No Tenderness to palpation present (GI), No Guarding due to palpation present (GI) and No Rigid due to palpation Objective Data Vital Signs Vital Signs: Vital Signs - 24 hr 02/04/23 21:22 02/05/23 05:21 Temperature 36.8 C 37.2 C Pulse Rate 82 84 Respiratory Rate 16 18 Blood Pressure 138/95 H 137/83 Pulse Oximetry 98 98 Intake/Output Intake/Output: Intake & Output 02/02/23 02/03/23 02/04/23 02/05/23 23:59 23:59 23:59 23:59 Intake Total 2000 4000 1000 Output Total 650 3575 675 Balance 1056 105 7529 -675 Meds/Results Medications: Active Medications Generic Name Dose Route Start Last Admin Trade Name Freq PRN Reason Stop Dose Admin Benzocaine 1 lozenge 02/04/23 00:23 Benzocaine/Menthol (*Bkc) 18 Ea Lozenge PO PRN PRN Sore Throat Dextrose 12.5 gm 02/02/23 13:55 Dextrose 50% 25 Gm/50 Ml Syringe IV PUSH PRN PRN Hypoglycemia Protocol Escitalopram Oxalate 20 mg 02/05/23 09:00 02/05/23 08:52 Escitalopram Oxalate 10 Mg Tablet PO 20 mg DAILY ENDER Administration Famotidine 20 mg 02/02/23 21:00 02/05/23 08:52 Famotidine 20 Mg/2 Ml Vial IV PUSH 20 mg Q12HR ENDER Administration Glucagon 1 mg 02/02/23 13:55 Glucagon For Inj 1 Mg Vial IM PRN PRN Hypoglycemia Protocol Glucose 15 gm 02/02/23 13:55 Glucose Oral Gel 15 Gm Of Glucse In 37.5 Gm Tube PO PRN PRN Hypoglycemia Protocol Hydromorphone HCl 1 mg 02/02/23 11:35 02/03/23 23:44 Hydromorphone Hcl Inj (*Crx) 1 Mg/Ml Syr IV PUSH 1 mg Q2H PRN Administration Pain Rated 7-10 Sodium Chloride 1,000 mls @ 100 mls/hr 02/02/23 07:10 02/05/23 04:35 Normal Saline Iv IV CONT Not Given .Q10H ENDER Dextrose 1,000 mls @ 100 mls/hr 02/02/23 13:55 Dextrose 5% 1,000 Ml IVPB PRN PRN Hypoglycemia Protocol Insulin Aspart 2 - 5 units 02/02/23 17:00 02/05/23 08:51 Insulin Aspart (*Bkc) 100 Units/Ml SUB-Q 2 units TIDWM ENDER Administration Protocol Insulin Aspart 1 - 2 units 02/02/23 21:00 02/04/23 20:31 Insulin Aspart (*Bkc) 100 Units/Ml SUB-Q Not Given HS ENDER Protocol Ondansetron HCl 4 mg 02/02/23 07:08 02/03/23 20:59 Ondansetron Inj 4 Mg/2 Ml Vial IV PUSH 4 mg Q4H PRN Administration Nausea Sodium Chloride 1 spray 02/04/23 00:23 Saline 0.65% Flavio Soln 44 Ml Btl NASAL Q6HR PRN Congestion Trazodone HCl 100 mg 02/04/23 21:00 02/04/23 21:15 Trazodone Hcl 50 Mg Tablet PO 100 mg HS ENDER Administration Radiology Results: ITS Impressions Abdomen/Pelvis CT 02/02/23 06:40 IMPRESSION: 1. Dilated small bowel in the right mid abdomen, consistent with ileus versus partial obstruction. Abdomen X-Ray 02/02/23 18:03 IMPRESSION: NG tube, in good position. Small Bowel X-Ray 02/03/23 13:54 IMPRESSION: 1. Normal small bowel series. Labs Labs: Laboratory Results - last 24 hr 02/04/23 02/04/23 02/04/23 07:47 11:42 16:32 WBC RBC Hgb Hct MCV MCH MCHC RDW Plt Count MPV Immature Gran %
--- NOTE | 2023-02-05 11:30 | PM.DS ---
DS: Admitting Diagnosis Discharge Date 02/05/2023 Admitting Diagnosis Partial small bowel obstruction Type 2 diabetes mellitus without complications, chronic DS: Discharge Diagnosis Discharge Diagnosis (1) Partial small bowel obstruction: Code(s): K56.600 - Partial intestinal obstruction, unspecified as to cause Status: Acute Assessment and Plan: Presented with abdominal pain, distension, nausea CT shows evidence of partial small-bowel obstruction right mid abdomen Patient with history of prior obstructions, previously requiring colon resection general surgery consulted and recommendations Treated with NG decompression, bowel rest, IV fluid rehydration, and supportive care with PRN analgesics and antiemetics. Obtained serial abdominal exams and small-bowel follow-through showing improvement. (2) Type 2 diabetes mellitus: Qualifiers: Diabetes mellitus penitentiary insulin use: without truck terminal manager use Diabetes mellitus complication status: without complication Qualified Code(s): E11.9 - Type 2 diabetes mellitus without complications Code(s): E11.9 - Type 2 diabetes mellitus without complications Status: Acute Assessment and Plan: A1c is 6.8. Blood sugars are well controlled Continue Accu-Cheks, sliding scale insulin, hypoglycemic protocol Resumed home Trulicity and Jardiance at discharge. DS: Summary Hospital Course Reason for hospitalization: abdominal pain Hospital Course: Patient is a 52-year-old male with history of several abdominal surgeries, small-bowel obstruction, diverticulitis, and type 2 diabetes mellitus who presented to the emergency department via private vehickle for evaluation of abdominal pain. He reported a gradual onset of diffuse abdominal cramping that progressively worsened for several days prior to admission. Symptoms were similar to when he had previous bowel obstructions. He also complained generalized malaise and nausea but he has not had any significant vomiting. His last regular bowel movement was about 5 days ago and yesterday he reports having a loose stools without obvious blood or mucus. He also complains of generalized malaise, nausea, and a decrease in appetite. He denied fever, vomiting, and blood or mucus in his stool. He was afebrile on arrival to the ED with stable vital signs. CMP and CBC were unremarkable aside from a sodium of 132 and a glucose of 175. UA was normal. CT of the abdomen and pelvis showed dilated small bowel in the right mid abdomen consistent with ileus versus partial obstruction. He was admitted in this setting for supportive care and surgery consultation. Patient was placed on bowel rest with IV hydration, PRN analgesics and PRN antiemetics. Patients symptoms continued and he was agreeable to NG tube decompression. Serial abd x-rays and SBFT on 02/03 were obtained. SBFT showed improvement on partial SBO. Patient had a BM on 02/04/23. Abdominal distention, pain and nausea improved. Clamping trial was initiated and he tolerated this well. NG tube was discontinued and his diet was advanced with good tolerance. He tolerated regular consistency diet and was discharged home in stable condition. He was counseled on hydration, diet, medications and when to seek further care. Status at Discharge Cognitive/behavioral status at discharge: aaox4, baseline Functional status at discharge: independent ambulation Overall status at discharge: patient is back to baseline Time Spent with Patient Time attestation: Total time spent providing and/or coordinating discharge services: Time spent: Greater than 30 minutes Exam Narrative: Temp Pulse Resp BP Pulse Ox O2 Del Method 98.9 F 84 18 137/83 98 Room Air 02/05/23 05:21 02/05/23 05:21 02/05/23 05:21 02/05/23 0
[2023-02-05 11:32] LABS: Glucose Point of Care 227 mg/dl (65-105)
[2023-02-05 12:26] LABS: Anion Gap 8 mmol/L (8-16); Blood Urea Nitrogen 11 mg/dL (9-20); Calcium 8.2 mg/dL (8.4-10.2); Carbon Dioxide 28 mmol/L (22-30); Chloride 97 mmol/L (98-107); Estimated CRCL calculation 89 ml/min; Estimated Glomerular Filt Rate > 60; Glucose 102 mg/dL (65-110); Potassium 3.7 mmol/L (3.4-5.0); Sodium 133 mmol/L (137-145)
[2023-02-05 12:27] LABS: Hematocrit 43.6 % (42.0-52.0); Hemoglobin 13.9 g/dL (14.0-18.0); Mean Corpuscular HGB Conc 31.9 g/dl (32-36); Mean Corpuscular Hemoglobin 26.5 pg (26-34); Mean Corpuscular Volume 83.2 fl (80-100); Platelet Count Result 240 k/mm3 (150-375); Red Blood Count 5.24 M/mm3 (4.6-6.20); Red Cell Distribution Width 13.5 % (11.5-14.5); White Blood Count 5.7 K/mm3 (4.5-10.0)
[2023-02-05 12:28] LABS: Mean Platelet Volume 9.3 fl (7.4-10.4)
[2023-02-05] MEDS: EMPAGLIFLOZIN 25 MG TABLET PO (12:34)
[2023-02-05 14:00] VITALS: BP 130/84; PULSE 78; RESP 16; TEMP 36.6; O2SAT 97
== END 2023-02-05 13:50 | disposition home or self-care (01) | DRG 390 ==
LOC: ANHED 07:08 → ANH3MEDSUR 08:18
PROVIDERS: Physician Assistant; Admitting Provider Family Medicine; Emergency Provider Emergency Medicine; PCP Family Medicine; Visit Provider Nurse Practitioner Family
DX: K56.600 Partial intestinal obstruction, unspecified as to cause (principal); E11.9 Type 2 diabetes mellitus without complications; F43.10 Post-traumatic stress disorder, unspecified; F32.A Depression, unspecified; Z90.49 Acquired absence of other specified parts of digestive tract
CPT/HCPCS: 36415; 74177; 74250; 80048; 80053; 81003; 82948; 83036; 83690; 83735; 85025; 85027; 96361; 96374; 96375; 96376; 99285; A9270; G0378; J1170; J1815; J2405; J7030; Q9967

== ENCOUNTER 2023-03-09 15:21 | Emergency (ER) | payer OTHER, SELFPAY ==
--- NOTE | ~2023-03-09 | CT_ITS ---
EXAMINATION: CT abdomen pelvis w con DATE: 03/09/2023 18:35 INDICATION: LLQ pain, hx of SBO TECHNIQUE: Computed tomography (CT) of the abdomen and pelvis was performed with 100 mL Omnipaque-350 intravenous contrast. Automated exposure control and iterative reconstruction technique were employe d. The dose-length product was 767.21 mGy-cm. COMPARISON: 02/02/2023. FINDINGS: Lower thorax: Coronary artery calcifications. Minimal bibasilar atelectasis. Liver: Normal. Biliary/Gallbladder: Gallbladder is absent. No bile duct dilation. Pancreas: No mass or duct dilation. Spleen: Normal. Adrenals:No mass. Kidneys: No mass, stone, or hydronephrosis. GI tract: No small or large bowel dilation. Uncomplicated distal sigmoid anastomosis. The appendix is surgically absent Mesentery/Peritoneum: No ascites, mass, or free air. Retroperitoneum: No mass. Pelvis: Pelvic organs are within normal limits. Soft Tissues: Soft tissues and body wall unremarkable. Prior inguinal hernia repair on the left. Smal l uncomplicated fat-containing umbilical hernia. Bones: No acute osseous finding. IMPRESSION: No acute abdominopelvic process detected. Reviewed, dictated and finalized at location K.
[2023-03-09 15:23] VITALS: BP 143/84; PULSE 85; RESP 18; TEMP 36.6; O2SAT 99
[2023-03-09 15:40] LABS: Basophils Percent Auto 0.5 % (0.2-1.2); Eosinophils Absolute Auto 0.1 K/mm3 (0-0.3); Eosinophils Percent Auto 0.8 % (0-4.4); Hematocrit 46.3 % (42.0-52.0); Hemoglobin 15.1 g/dL (14.0-18.0); Immature Granulocyte Absolute 0.01 K/mm3 (0.00-0.031); Immature Granulocyte Percent A 0.2 % (0-0.5); Lymphocytes Absolute Auto 2.18 K/mm3 (0.9-3.2); Mean Corpuscular HGB Conc 32.6 g/dl (32-36); Mean Corpuscular Hemoglobin 27.1 pg (26-34); Mean Platelet Volume 9.1 fl (7.4-10.4); Monocytes Absolute Auto 0.4 K/mm3 (0.1-0.6); Monocytes Percent Auto 6.4 % (2.6-8.5); Neutrophils Absolute Auto 3.6 K/mm3 (1.3-6.7); Neutrophils Percent Auto 57.1 % (45.5-73.1); Platelet Count Result 244 k/mm3 (150-375); Red Blood Count 5.58 M/mm3 (4.6-6.20); White Blood Count 6.2 K/mm3 (4.5-10.0)
[2023-03-09 15:41] LABS: Appearance Urine Clear (Clear); Bilirubin Urine Negative (Negative); Blood Urine Negative (Negative); Color Urine Yellow (Yellow); Glucose Urine UA Negative (Negative); Ketones Urine Negative (Negative); Leukocyte Esterase Ur Negative LEU/UL (Negative); Nitrate Urine Negative (Negative); Protein Urine Negative (Negative); Specific Grav Ur 1.019 (1.001-1.035); pH Urine 5.5 (5.0-9.0)
[2023-03-09 15:44] LABS: Add Urine Microscopic? NO
[2023-03-09 15:49] LABS: Alanine Aminotransferase 30 U/L (6-50); Albumin Level 4.5 g/dL (3.5-5.1); Alkaline Phosphatase 56 U/L (38-126); Anion Gap 8 mmol/L (8-16); Aspartate Amino Transferase 31 U/L (17-59); Bilirubin,Total 0.4 mg/dL (0.2-1.3); Blood Urea Nitrogen 13 mg/dL (9-20); Calcium 9.2 mg/dL (8.4-10.2); Carbon Dioxide 28 mmol/L (22-30); Chloride 99 mmol/L (98-107); Estimated CRCL calculation 88 ml/min; Estimated Glomerular Filt Rate > 60; Glucose 164 mg/dL (65-110); Lipase 135 U/L (23-300); Potassium 4.1 mmol/L (3.4-5.0); Sodium 135 mmol/L (137-145)
--- NOTE | 2023-03-09 17:39 | ED.ABDPAIN ---
HPI - Abdominal Pain General Chief Complaint: Abdominal Pain Stated Complaint: Abdominal pain, hx diverticulitis Time Seen by Provider: 03/09/23 16:55 History of Present Illness HPI narrative: Patient is a 53-year-old male presenting with abdominal pain. Patient states that he has had diverticulitis and a bowel obstruction in the past. States that it feels similarly to the bowel obstruction. He has not had a bowel movement for 2 days. States that he has been nauseated and dry heaving but has not had vomiting. States that he feels dehydrated. Denies further complaints. Related Data Home Medications Medication Instructions Recorded Confirmed escitalopram oxalate 20 mg tablet 20 mg PO DAILY 07/18/21 02/02/23 modafinil 100 mg tablet 100 mg PO DAILY PRN Systemic Signs 07/18/21 02/02/23 And Symptoms trazodone 100 mg tablet 100 mg PO HS 07/18/21 02/02/23 dulaglutide 0.75 mg/0.5 mL 125 mg subcut WEEKLY 10/19/21 02/02/23 subcutaneous pen injector (Trulicity) empagliflozin 25 mg tablet 25 mg PO DAILY 10/19/21 02/02/23 (Jardiance) famotidine 20 mg tablet (Pepcid AC) 20 mg PO DAILY PRN Indigestion 02/02/23 02/02/23 hyoscyamine sulfate 0.125 mg 0.125 mg sublingual QID PRN 02/02/23 02/02/23 sublingual tablet (Levsin/SL) abdominal cramps Allergies Allergy/AdvReac Type Severity Reaction Status Date / Time gabapentin Allergy Unknown Verified 03/09/23 17:04 ketorolac [From Toradol] Allergy Unknown Verified 03/09/23 17:04 promethazine [From Phenergan] Allergy Unknown Verified 03/09/23 17:04 zolpidem [From Ambien] AdvReac Other Verified 03/09/23 17:04 Review of Systems Review of Systems: All systems reviewed & are unremarkable except as noted in HPI and below PMFSH Past Medical History Medical History Depression Diverticulitis History of small bowel obstruction Posttraumatic stress disorder Type 2 diabetes mellitus Surgical History Surgical History History of colon resection Sigmoid colon resection for diverticulitis 6-7 years ago in [place]. History of exploratory laparotomy With adhesiolysis for small bowel obstruction 3-4 years ago in [place]. History of laparoscopic appendectomy History of laparoscopic cholecystectomy History of orthopedic surgery Right ankle and hand surgery. Status post laparoscopic Ludmila fundoplication Family History Family History Father Heart disease Grandparent Lung cancer Social History Social History Social History: Surrogate medical decision maker: Annelise Garcia, significant other. Code status: Full code. Smoking status: Never smoker Alcohol intake: never Substance use: never Substance use type: does not use Lack of Transportation: YES Lack of Food: Never True Current Housing: I Have Housing Concerned About Future Housing: No Difficulty Paying Gas/Electric Bills: No Difficulty Paying for Meds: No Currently Unemployed: No Education: High School Diploma/GED Difficulty w/ Childcare or Family Care: No Additional living arrangements comments: Lives in [place] with significant other. He has 1 son. Additional occupation/education comments: Served in the [employer]. 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 Spiritual care concerns: No Exam Narrative: GENERAL: Nontoxic, uncomfortable appearing HEAD: Normocephalic, atraumatic. EYES: PERRLA and EOMI. ENT: Nares clear, no rhinorrhea or epistaxis. Mucous membranes moist. NECK: Supple. CHEST: No respiratory distress. HEART: Regular rate and rhythm ABDOMEN: +LLQ tenderness without guarding or rebound EXTREMITIES: Normal range of motion. No edema. SKIN: Warm, dry, no rash. NEURO: No focal deficits. Alert and oriented x3. PSYCH: Normal mood and affect. Course Vital Signs Vital sign
[2023-03-09] MEDS: ONDANSETRON INJ 4 MG/2 ML VIAL IV PUSH (18:06)
[2023-03-09] MEDS: LACTATED RINGERS 1,000 ML 999 ML IV CONT ×2 (18:08→18:10)
[2023-03-09] MEDS: HYDROmorphone HCL INJ (*CRX) 1 MG/ML SYR IV PUSH (18:17)
[2023-03-09 18:21] LABS: Lactic Acid Reflex 1.5 mmol/L (0.7-2.0)
[2023-03-09 20:35] VITALS: BP 133/82; PULSE 74; RESP 18; O2SAT 96
== END 2023-03-09 20:35 | disposition home or self-care (01) ==
PROVIDERS: Emergency Provider Emergency Medicine; PCP Family Medicine
DX: R10.9 Unspecified abdominal pain (principal); R11.0 Nausea; F32.A Depression, unspecified; E11.9 Type 2 diabetes mellitus without complications
CPT/HCPCS: 36415; 74177; 80053; 81003; 83605; 83690; 85025; 96361; 96374; 96375; 99284; J1170; J2405; J7120; Q9967

== ENCOUNTER 2023-04-13 19:54 | Emergency (ER) | payer OTHER, SELFPAY ==
--- NOTE | ~2023-04-13 | CT_ITS ---
EXAMINATION: CT abdomen pelvis w con DATE: 04/14/2023 00:30 INDICATION: Abdominal pain. TECHNIQUE: Computed tomography (CT) of the abdomen and pelvis was performed with 100 mL Omnipaque 350 intravenous contrast. Automated exposure control and iterative reconstruction technique were employe d. The dose-length product was 723.56 mGy-cm. COMPARISON: CT abdomen and pelvis 03/09/2023 FINDINGS: The visualized portions of the lung bases demonstrate mild atelectasis. A calcified right l willie nodule is consistent with old granulomatous disease. No pleural effusion. The heart size is jamel l. No pericardial effusion. There is mild pectus excavatum. The liver is normal. There are changes of cholecystectomy. The spleen, pancreas, adrenal glands, and kidneys are normal. Again seen is diffuse bladder wall thickening, likely secondary to chronic outlet obstruction from the mildly enlarged pro state. There are surgical changes of the colon. There is a large volume of stool in the colon. There are changes of appendectomy. There are no pathologically enlarged lymph nodes. There is no free intra peritoneal fluid. There are changes of left inguinal hernia repair. There is mild thoracic and lumbar spondylosis. IMPRESSION: 1. No specific etiology for the patient's symptoms. Reviewed, dictated and finalized at location A.
[2023-04-13 20:17] VITALS: BP 132/86; PULSE 90; RESP 14; TEMP 36.3; O2SAT 97
[2023-04-13 20:29] LABS: Basophils Percent Auto 0.4 % (0.2-1.2); Eosinophils Absolute Auto 0.1 K/mm3 (0-0.3); Eosinophils Percent Auto 1.5 % (0-4.4); Hematocrit 45.6 % (42.0-52.0); Hemoglobin 14.7 g/dL (14.0-18.0); Immature Granulocyte Absolute 0.01 K/mm3 (0.00-0.031); Immature Granulocyte Percent A 0.1 % (0-0.5); Lymphocytes Absolute Auto 2.46 K/mm3 (0.9-3.2); Lymphocytes Percent Auto 36.5 % (18.3-44.2); Mean Corpuscular HGB Conc 32.2 g/dl (32-36); Mean Corpuscular Hemoglobin 26.7 pg (26-34); Mean Corpuscular Volume 82.9 fl (80-100); Monocytes Absolute Auto 0.4 K/mm3 (0.1-0.6); Monocytes Percent Auto 5.3 % (2.6-8.5); Neutrophils Absolute Auto 3.8 K/mm3 (1.3-6.7); Neutrophils Percent Auto 56.2 % (45.5-73.1); Platelet Count Result 267 k/mm3 (150-375); Red Cell Distribution Width 13.7 % (11.5-14.5); White Blood Count 6.7 K/mm3 (4.5-10.0)
[2023-04-13 20:37] LABS: Alanine Aminotransferase 30 U/L (6-50); Albumin Level 4.4 g/dL (3.5-5.1); Alkaline Phosphatase 52 U/L (38-126); Anion Gap 5 mmol/L (8-16); Aspartate Amino Transferase 31 U/L (17-59); Bilirubin,Total 0.4 mg/dL (0.2-1.3); Blood Urea Nitrogen 8 mg/dL (9-20); Carbon Dioxide 29 mmol/L (22-30); Chloride 98 mmol/L (98-107); Estimated CRCL calculation 73 ml/min; Estimated Glomerular Filt Rate > 60; Glucose 149 mg/dL (65-110); Lipase 151 U/L (23-300); Potassium 3.8 mmol/L (3.4-5.0); Sodium 132 mmol/L (137-145)
[2023-04-13 21:20] VITALS: BP 126/84; PULSE 88; RESP 14; TEMP 36.9; O2SAT 96
[2023-04-13] MEDS: FAMOTIDINE 20 MG/2 ML VIAL (23:07)
[2023-04-13] MEDS: SODIUM CHLORIDE 0.9% IV 2,000 ML 999 ML (23:08)
[2023-04-13] MEDS: ONDANSETRON INJ 4 MG/2 ML VIAL (23:08)
[2023-04-13] MEDS: HYDROmorphone HCL INJ (*CRX) 1 MG/ML SYR 0.5 MG IV PUSH (23:10)
[2023-04-13 23:56] VITALS: PULSE 93; RESP 13; O2SAT 97
[2023-04-13 23:57] LABS: Appearance Urine Clear (Clear); Bilirubin Urine Negative (Negative); Blood Urine Negative (Negative); Color Urine Yellow (Yellow); Glucose Urine UA Negative (Negative); Ketones Urine Negative (Negative); Leukocyte Esterase Ur Negative LEU/UL (Negative); Nitrate Urine Negative (Negative); Protein Urine Negative (Negative); Specific Grav Ur 1.019 (1.001-1.035)
[2023-04-14] VITALS: PULSE 85; RESP 14; O2SAT 98
[2023-04-14 00:05] LABS: Add Urine Microscopic? NO
[2023-04-14 00:15] VITALS: PULSE 83; RESP 14; O2SAT 97
--- NOTE | 2023-04-14 00:26 | ED.GENADULT ---
HPI - General Adult General Chief complaint: Abdominal Pain Stated complaint: abdominal pain History of Present Illness HPI narrative: This is a 53-year-old male history of chronic abdominal pain, ED for abdominal pain. Patient states for last 2 days he has had pain to the right of his belly button, describes as a stabbing pain that is nonradiating 8/10 intensity constant and getting worse. He relates small-bowel obstructions he has had in the past. There are no exacerbating alleviating factors. Patient's last bowel movement was about 2 days ago and was normal. He is still passing flatus. He has had an episode of nausea and vomiting. Denies fever chills chest pain difficulty breathing or urinary symptoms Related Data Home Medications Medication Instructions Recorded Confirmed escitalopram oxalate 20 mg tablet 20 mg PO DAILY 07/18/21 02/02/23 modafinil 100 mg tablet 100 mg PO DAILY PRN Systemic Signs 07/18/21 02/02/23 And Symptoms trazodone 100 mg tablet 100 mg PO HS 07/18/21 02/02/23 dulaglutide 0.75 mg/0.5 mL 125 mg subcut WEEKLY 10/19/21 02/02/23 subcutaneous pen injector (Trulicity) empagliflozin 25 mg tablet 25 mg PO DAILY 10/19/21 02/02/23 (Jardiance) famotidine 20 mg tablet (Pepcid AC) 20 mg PO DAILY PRN Indigestion 02/02/23 02/02/23 hyoscyamine sulfate 0.125 mg 0.125 mg sublingual QID PRN 02/02/23 02/02/23 sublingual tablet (Levsin/SL) abdominal cramps Allergies Allergy/AdvReac Type Severity Reaction Status Date / Time gabapentin Allergy Unknown Verified 03/09/23 17:04 ketorolac [From Toradol] Allergy Unknown Verified 03/09/23 17:04 promethazine [From Phenergan] Allergy Unknown Verified 03/09/23 17:04 zolpidem [From Ambien] AdvReac Other Verified 03/09/23 17:04 [facility] Past Medical History Medical History Depression Diverticulitis History of small bowel obstruction Posttraumatic stress disorder Type 2 diabetes mellitus Surgical History Surgical History History of colon resection Sigmoid colon resection for diverticulitis 6-7 years ago in [place]. History of exploratory laparotomy With adhesiolysis for small bowel obstruction 3-4 years ago in [place]. History of laparoscopic appendectomy History of laparoscopic cholecystectomy History of orthopedic surgery Right ankle and hand surgery. Status post laparoscopic Ludmila fundoplication Family History Family History Father Heart disease Grandparent Lung cancer Social History Social History Social History: Surrogate medical decision maker: Annelise Garcia, significant other. Code status: Full code. Smoking status: Never smoker Alcohol intake: never Substance use: never Substance use type: does not use Lack of Transportation: YES Lack of Food: Never True Current Housing: I Have Housing Concerned About Future Housing: No Difficulty Paying Gas/Electric Bills: No Difficulty Paying for Meds: No Currently Unemployed: No Education: High School Diploma/GED Difficulty w/ Childcare or Family Care: No Additional living arrangements comments: Lives in [place] with significant other. He has 1 son. Additional occupation/education comments: Served in the [employer]. 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 Spiritual care concerns: No Exam Narrative: APPEARANCE: No apparent distress. Head: atraumatic. EYES: EOMI, NOSE: Atraumatic NECK: Trachea midline RESPIRATORY: No increased rate of breathing, clear to auscultation CARDIOVASCULAR: RRR, ABDOMINAL: soft nontender no guarding or rebound, no palpable hernias or skin discoloration over the umbilicus MUSCULOSKELETAl: No obvious deformities NEURO: Alert. Moving 4/4 extremities SKIN:: Warm, dry. Normal color PSYCHIATRIC: Normal affect Course Vital Sign
[2023-04-14 00:30] VITALS: BP 131/85; PULSE 81; RESP 14; O2SAT 96
[2023-04-14 00:31] VITALS: PULSE 81; RESP 12; O2SAT 98
[2023-04-14 01:11] VITALS: BP 131/92; PULSE 80; RESP 15; TEMP 36.6; O2SAT 98
== END 2023-04-14 01:12 | disposition home or self-care (01) ==
PROVIDERS: Emergency Provider Emergency Medicine; PCP Family Medicine
DX: R10.33 Periumbilical pain (principal); G89.29 Other chronic pain; E11.9 Type 2 diabetes mellitus without complications; F32.A Depression, unspecified; Z79.85 Long-term (current) use of injectable non-insulin antidiabetic drugs; Z79.84 Long term (current) use of oral hypoglycemic drugs
CPT/HCPCS: 36415; 74177; 80053; 81003; 83690; 85025; 96374; 96375; 99284; J1170; J2405; J7030; Q9967

== ENCOUNTER 2023-05-17 19:01 | Emergency (ER) | payer OTHER, SELFPAY ==
[2023-05-17] VITALS (11 sets, daily range): BP systolic 133–148; BP diastolic 85–95; PULSE 79–89; RESP 13–18; TEMP 36.7; O2SAT 96–99
--- NOTE | ~2023-05-17 | CT_ITS ---
EXAMINATION: CT abdomen pelvis w con DATE: 05/17/2023 23:02 INDICATION: Nausea and vomiting. TECHNIQUE: Computed tomography (CT) of the abdomen and pelvis was performed with 100 mL Omnipaque 350 intravenous contrast. Automated exposure control and iterative reconstruction technique were employe d. The dose-length product was 841.22 mGy-cm. COMPARISON: CT abdomen and pelvis 04/13/2023 FINDINGS: The visualized portions of the lung bases demonstrate mild atelectasis. No pleural effusion . There is elevation of right hemidiaphragm. The heart size is normal. There are coronary artery calc ifications. No pericardial effusion. The liver, spleen, pancreas, adrenal glands, and right kidney ar e normal. There is cortical thinning in left kidney. There is an anastomosis in the sigmoid colon. Th ere are no dilated loops of bowel. There are changes of appendectomy. There are no pathologically enl arged lymph nodes. There is no free intraperitoneal fluid. There is moderate thoracic spondylosis and mild lumbar spondylosis. IMPRESSION: 1. No etiology for the patient's symptoms. Reviewed, dictated and finalized at location A.
--- NOTE | 2023-05-17 19:26 | ED.ABDPAIN ---
HPI - Abdominal Pain General Chief Complaint: Abdominal Pain Stated Complaint: abd pain Time Seen by Provider: 05/17/23 19:16 History of Present Illness HPI narrative: 53M h/o abd surgeries c/b SBO p/w n/v and abd pain x3d, feels like usu episodes of SBO. No f/c, cp, diarrhea; last BM was 1-2d ago but very small. Related Data Home Medications Medication Instructions Recorded Confirmed escitalopram oxalate 20 mg tablet 20 mg PO DAILY 07/18/21 02/02/23 modafinil 100 mg tablet 100 mg PO DAILY PRN Systemic Signs 07/18/21 02/02/23 And Symptoms trazodone 100 mg tablet 100 mg PO HS 07/18/21 02/02/23 dulaglutide 0.75 mg/0.5 mL 125 mg subcut WEEKLY 10/19/21 02/02/23 subcutaneous pen injector (Trulicity) empagliflozin 25 mg tablet 25 mg PO DAILY 10/19/21 02/02/23 (Jardiance) famotidine 20 mg tablet (Pepcid AC) 20 mg PO DAILY PRN Indigestion 02/02/23 02/02/23 hyoscyamine sulfate 0.125 mg 0.125 mg sublingual QID PRN 02/02/23 02/02/23 sublingual tablet (Levsin/SL) abdominal cramps Allergies Allergy/AdvReac Type Severity Reaction Status Date / Time gabapentin Allergy Unknown Verified 05/17/23 19:32 ketorolac [From Toradol] Allergy Unknown Verified 05/17/23 19:32 promethazine [From Phenergan] Allergy Unknown Verified 05/17/23 19:32 zolpidem [From Ambien] AdvReac Other Verified 05/17/23 19:32 Review of Systems Review of Systems: CONST: No fever. HEENT: No sore throat C/V: No chest pain RESP: No cough GI: Reports abdominal pain, nausea, vomiting : No dysuria. M/S: No joint pain. SKIN: No rash. NEURO: [No headache or focal numbness or weakness] PSYCH: [No depression] [facility] Past Medical History Medical History Depression Diverticulitis History of small bowel obstruction Posttraumatic stress disorder Type 2 diabetes mellitus Surgical History Surgical History History of colon resection Sigmoid colon resection for diverticulitis 6-7 years ago in [place]. History of exploratory laparotomy With adhesiolysis for small bowel obstruction 3-4 years ago in [place]. History of laparoscopic appendectomy History of laparoscopic cholecystectomy History of orthopedic surgery Right ankle and hand surgery. Status post laparoscopic Ludmila fundoplication Family History Family History Father Heart disease Grandparent Lung cancer Social History Social History Social History: Surrogate medical decision maker: Annelise Garcia, significant other. Code status: Full code. Smoking status: Never smoker Alcohol intake: never Substance use: never Substance use type: does not use Lack of Transportation: YES Lack of Food: Never True Current Housing: I Have Housing Concerned About Future Housing: No Difficulty Paying Gas/Electric Bills: No Difficulty Paying for Meds: No Currently Unemployed: No Education: High School Diploma/GED Difficulty w/ Childcare or Family Care: No Additional living arrangements comments: Lives in [place] with significant other. He has 1 son. Additional occupation/education comments: Served in the [employer]. 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 Spiritual care concerns: No Exam Narrative: EXAMINATION OF ORGAN SYSTEMS/BODY AREAS: Constitutional: Vital signs per nursing GENERAL:[No acute distress, non-toxic appearing.] HEAD: Normal with no signs of head trauma. EYES: EOMI, conjunctiva normal ENT: Hearing grossly intact LUNGS: Nonlabored breathing. HEART: [Regular rate and rhythm] ABD: [Soft], mildly [tender to palpation] LLQ EXT: Normal range of motion SKIN: [No rashes or lesions.] NEURO: [Alert and oriented x 3. No gross focal sensory or strength deficits.] PSYCH: Normal affect Course Vital Signs Vital signs: Vital Signs Temperatur
[2023-05-17] MEDS: SODIUM CHLORIDE 0.9% IV 1,000 ML 999 ML IV CONT (20:27)
[2023-05-17] MEDS: ONDANSETRON INJ 4 MG/2 ML VIAL IV PUSH (20:28)
[2023-05-17 20:34] LABS: Basophils Percent Auto 0.5 % (0.2-1.2); Eosinophils Absolute Auto 0.1 K/mm3 (0-0.3); Eosinophils Percent Auto 1.1 % (0-4.4); Hematocrit 46.2 % (42.0-52.0); Immature Granulocyte Absolute 0.01 K/mm3 (0.00-0.031); Immature Granulocyte Percent A 0.1 % (0-0.5); Lymphocytes Absolute Auto 2.35 K/mm3 (0.9-3.2); Lymphocytes Percent Auto 29.5 % (18.3-44.2); Mean Corpuscular HGB Conc 32.5 g/dl (32-36); Mean Corpuscular Hemoglobin 26.8 pg (26-34); Mean Corpuscular Volume 82.5 fl (80-100); Mean Platelet Volume 9.3 fl (7.4-10.4); Monocytes Absolute Auto 0.6 K/mm3 (0.1-0.6); Neutrophils Absolute Auto 4.8 K/mm3 (1.3-6.7); Neutrophils Percent Auto 60.8 % (45.5-73.1); Platelet Count Result 249 k/mm3 (150-375); Red Cell Distribution Width 13.9 % (11.5-14.5)
[2023-05-17 20:44] LABS: Alanine Aminotransferase 34 U/L (6-50); Albumin Level 4.7 g/dL (3.5-5.1); Alkaline Phosphatase 63 U/L (38-126); Anion Gap 6 mmol/L (8-16); Aspartate Amino Transferase 31 U/L (17-59); Bilirubin,Total 0.6 mg/dL (0.2-1.3); Blood Urea Nitrogen 15 mg/dL (9-20); Calcium 8.8 mg/dL (8.4-10.2); Carbon Dioxide 28 mmol/L (22-30); Chloride 100 mmol/L (98-107); Estimated CRCL calculation 73 ml/min; Estimated Glomerular Filt Rate > 60; Glucose 107 mg/dL (65-110); Lactic Acid Reflex 1.4 mmol/L (0.7-2.0); Lipase 141 U/L (23-300); Potassium 3.9 mmol/L (3.4-5.0); Sodium 134 mmol/L (137-145)
[2023-05-17] MEDS: MORPHINE SULFATE (*CRX) 4 MG/ML INJ IV PUSH (20:45)
[2023-05-17] MEDS: HYDROmorphone HCL INJ (*CRX) 1 MG/ML SYR 0.5 MG IV PUSH (21:58)
--- NOTE | 2023-05-17 22:19 | PC.NURSE ---
Patient off unit to CT.
--- NOTE | 2023-05-17 23:00 | PC.NURSE ---
Patient report given to YENNY Garcia. All questions answered and care of patient transferred.
[2023-05-17] MEDS: HALOPERIDOL LACTATE 5 MG/ML VIAL IV PUSH (23:37)
[2023-05-17] MEDS: diphenhydrAMINE HCl INJ 50 MG/ML VIAL 25 MG IV PUSH (23:37)
[2023-05-18 00:25] VITALS: BP 121/82; PULSE 70; RESP 15; O2SAT 99
== END 2023-05-18 00:45 | disposition home or self-care (01) ==
PROVIDERS: Emergency Provider Emergency Medicine; PCP Family Medicine
DX: R10.9 Unspecified abdominal pain (principal); F32.A Depression, unspecified; F43.10 Post-traumatic stress disorder, unspecified; E11.9 Type 2 diabetes mellitus without complications; Z79.84 Long term (current) use of oral hypoglycemic drugs; Z79.85 Long-term (current) use of injectable non-insulin antidiabetic drugs; Z90.49 Acquired absence of other specified parts of digestive tract
CPT/HCPCS: 36415; 74177; 80053; 83605; 83690; 85025; 96361; 96374; 96375; 99284; J1170; J1200; J1630; J2270; J2405; J7030; Q9967

== ENCOUNTER 2023-06-14 21:08 | Emergency (ER) | payer OTHER, SELFPAY ==
--- NOTE | ~2023-06-14 | CT_ITS ---
CT of the Abdomen and Pelvis: Indication: Abdominal pain Technique: 2.5 mm axial scans were obtained through the abdomen and pelvis following intravenous adm inistration of 100 cc of Omnipaque 350. Dose reduction technique was used on this scan by utilizing a utomated exposure control and iterative reconstruction technique. The dose-length product (DLP) was 8 80.39 mGy-cm. COMPARISON: 05/18/2023 Findings: Scans through the lung bases are unremarkable. The liver, spleen, pancreas, adrenals and kidneys are within normal limits. Cholecystectomy clips are present. No evidence of aortic aneurysm. No lymphadenopathy. No bowel obstruction or bowel wall thickening. There is no evidence to suggest acute appendicitis. Images through the pelvis were performed. Urinary bladder unremarkable. No pelvic mass seen. No ascit es. Impression: No significant abnormalities seen. Reviewed, dictated and finalized at [facility]. Impression: No significant abnormalities seen.
[2023-06-14 21:11] VITALS: BP 154/88; RESP 14; TEMP 36.3; O2SAT 100
--- NOTE | 2023-06-14 21:26 | PC.NURSE ---
Pt attempted to provide urine sample at this time, unsuccessful
[2023-06-14 21:40] LABS: Basophils Percent Auto 0.6 % (0.2-1.2); Eosinophils Absolute Auto 0.1 K/mm3 (0-0.3); Eosinophils Percent Auto 1.1 % (0-4.4); Hematocrit 44.5 % (42.0-52.0); Hemoglobin 14.6 g/dL (14.0-18.0); Immature Granulocyte Absolute 0.02 K/mm3 (0.00-0.031); Immature Granulocyte Percent A 0.3 % (0-0.5); Lymphocytes Absolute Auto 1.99 K/mm3 (0.9-3.2); Lymphocytes Percent Auto 31.5 % (18.3-44.2); Mean Corpuscular HGB Conc 32.8 g/dl (32-36); Mean Corpuscular Hemoglobin 27.3 pg (26-34); Mean Corpuscular Volume 83.2 fl (80-100); Mean Platelet Volume 8.9 fl (7.4-10.4); Monocytes Absolute Auto 0.4 K/mm3 (0.1-0.6); Monocytes Percent Auto 5.7 % (2.6-8.5); Neutrophils Absolute Auto 3.8 K/mm3 (1.3-6.7); Neutrophils Percent Auto 60.8 % (45.5-73.1); Platelet Count Result 254 k/mm3 (150-375); Red Blood Count 5.35 M/mm3 (4.6-6.20); Red Cell Distribution Width 14.2 % (11.5-14.5); White Blood Count 6.3 K/mm3 (4.5-10.0)
[2023-06-14 21:57] LABS: Alanine Aminotransferase 49 U/L (6-50); Albumin Level 4.4 g/dL (3.5-5.1); Alkaline Phosphatase 58 U/L (38-126); Anion Gap 8 mmol/L (8-16); Aspartate Amino Transferase 45 U/L (17-59); Bilirubin,Total 0.6 mg/dL (0.2-1.3); Blood Urea Nitrogen 16 mg/dL (9-20); Calcium 8.7 mg/dL (8.4-10.2); Carbon Dioxide 26 mmol/L (22-30); Chloride 100 mmol/L (98-107); Estimated CRCL calculation 73 ml/min; Estimated Glomerular Filt Rate > 60; Glucose 213 mg/dL (65-110); Lipase 178 U/L (23-300); Potassium 4.2 mmol/L (3.4-5.0); Sodium 134 mmol/L (137-145)
[2023-06-14] MEDS: SODIUM CHLORIDE 0.9% IV 1,000 ML 999 ML IV CONT (21:59)
[2023-06-14] MEDS: ONDANSETRON INJ 4 MG/2 ML VIAL IV PUSH (21:59)
[2023-06-14] MEDS: MORPHINE SULFATE (*CRX) 4 MG/ML INJ IV PUSH (21:59)
--- NOTE | 2023-06-14 22:09 | ED.ABDPAIN ---
HPI - Abdominal Pain General Chief Complaint: Abdominal Pain Stated Complaint: intestinal blockage/abd pain & pressure Time Seen by Provider: 06/14/23 21:26 Source: patient Mode of arrival: ambulatory Limitations: no limitations History of Present Illness HPI narrative: Patient presents to the emergency department for abdominal pain and nausea. Reports he has not had a good bowel movement in about a week and a half. Reports history of obstructions, was concerned he may have 1 currently. Denies fevers or vomiting. Related Data Home Medications Medication Instructions Recorded Confirmed escitalopram oxalate 20 mg tablet 20 mg PO DAILY 07/18/21 02/02/23 modafinil 100 mg tablet 100 mg PO DAILY PRN Systemic Signs 07/18/21 02/02/23 And Symptoms trazodone 100 mg tablet 100 mg PO HS 07/18/21 02/02/23 dulaglutide 0.75 mg/0.5 mL 125 mg subcut WEEKLY 10/19/21 02/02/23 subcutaneous pen injector (Trulicity) empagliflozin 25 mg tablet 25 mg PO DAILY 10/19/21 02/02/23 (Jardiance) famotidine 20 mg tablet (Pepcid AC) 20 mg PO DAILY PRN Indigestion 02/02/23 02/02/23 hyoscyamine sulfate 0.125 mg 0.125 mg sublingual QID PRN 02/02/23 02/02/23 sublingual tablet (Levsin/SL) abdominal cramps Allergies Allergy/AdvReac Type Severity Reaction Status Date / Time gabapentin Allergy Unknown Verified 05/17/23 19:32 ketorolac [From Toradol] Allergy Unknown Verified 05/17/23 19:32 promethazine [From Phenergan] Allergy Unknown Verified 05/17/23 19:32 zolpidem [From Ambien] AdvReac Other Verified 05/17/23 19:32 Review of Systems Review of Systems: CONSTITUTIONAL: Denies fever GASTROINTESTINAL: Reports abdominal pain, nausea. Denies vomiting, or diarrhea. GENITOURINARY: Denies dysuria All systems reviewed & are unremarkable except as noted in HPI and below PMFSH Past Medical History Medical History Depression Diverticulitis History of small bowel obstruction Posttraumatic stress disorder Type 2 diabetes mellitus Surgical History Surgical History History of colon resection Sigmoid colon resection for diverticulitis 6-7 years ago in [place]. History of exploratory laparotomy With adhesiolysis for small bowel obstruction 3-4 years ago in [place]. History of laparoscopic appendectomy History of laparoscopic cholecystectomy History of orthopedic surgery Right ankle and hand surgery. Status post laparoscopic Ludmila fundoplication Family History Family History Father Heart disease Grandparent Lung cancer Social History Social History Social History: Surrogate medical decision maker: Annelise Jose, significant other. Code status: Full code. Smoking status: Never smoker Alcohol intake: never Substance use: never Substance use type: does not use Lack of Transportation: YES Lack of Food: Never True Current Housing: I Have Housing Concerned About Future Housing: No Difficulty Paying Gas/Electric Bills: No Difficulty Paying for Meds: No Currently Unemployed: No Education: High School Diploma/GED Difficulty w/ Childcare or Family Care: No Additional living arrangements comments: Lives in [place] with significant other. He has 1 son. Additional occupation/education comments: Served in the [employer]. 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 Spiritual care concerns: No Exam Narrative: GENERAL: Well-appearing, well-nourished, and in no acute distress. HEAD: Normocephalic, atraumatic. EYES: EOMI. CHEST: Clear to auscultation. No respiratory distress. No wheezes rales or rhonchi HEART: Regular rate and rhythm. No murmur heard. Normal peripheral pulses. ABDOMEN: Soft, nondistended, normal active bowel sounds. Tender to palpation throughout the abdomen, without guarding EXTREMITIES: Normal
[2023-06-14 22:31] VITALS: BP 144/87; PULSE 92; RESP 18; O2SAT 97
--- NOTE | 2023-06-14 22:35 | PC.NURSE ---
Pt requesting more pain medication, CRIMINAL COURT JUDGE Sharee notified. No new orders
--- NOTE | 2023-06-14 22:36 | PC.NURSE ---
Pt requesting pain medication. LAN Tolliver notified, No new orders
[2023-06-14 23:05] LABS: Appearance Urine Clear (Clear); Bilirubin Urine Negative (Negative); Blood Urine Negative (Negative); Color Urine Yellow (Yellow); Glucose Urine UA Trace mg/dL (Negative); Ketones Urine Trace mg/dL (Negative); Leukocyte Esterase Ur Negative LEU/UL (Negative); Nitrate Urine Negative (Negative); Protein Urine Negative (Negative); Specific Grav Ur 1.026 (1.001-1.035)
[2023-06-14 23:09] LABS: Add Urine Microscopic? NO
[2023-06-14] MEDS: HYDROmorphone HCL INJ (*CRX) 1 MG/ML SYR 0.5 MG IV PUSH (23:34)
[2023-06-14 23:38] VITALS: BP 120/80; PULSE 94; RESP 16; O2SAT 97
[2023-06-15 00:51] VITALS: BP 126/82; PULSE 89; RESP 16; O2SAT 97
== END 2023-06-15 00:52 | disposition home or self-care (01) ==
PROVIDERS: Emergency Provider Physician Assistant; PCP Family Medicine
DX: K59.00 Constipation, unspecified (principal); E11.9 Type 2 diabetes mellitus without complications; F32.A Depression, unspecified; F43.10 Post-traumatic stress disorder, unspecified; Z79.84 Long term (current) use of oral hypoglycemic drugs; Z79.85 Long-term (current) use of injectable non-insulin antidiabetic drugs; Z90.49 Acquired absence of other specified parts of digestive tract
CPT/HCPCS: 36415; 74177; 80053; 81003; 83690; 85025; 96361; 96374; 96375; 99284; J1170; J2270; J2405; J7030; Q9967

== ENCOUNTER 2023-07-25 14:55 | Emergency (ER) | payer OTHER, SELFPAY ==
[2023-07-25] VITALS (13 sets, daily range): BP systolic 121–153; BP diastolic 80–90; PULSE 68–95; RESP 14–18; TEMP 36.6; O2SAT 92–100
--- NOTE | ~2023-07-25 | CT_ITS ---
EXAMINATION: CT abdomen pelvis w con DATE: 07/25/2023 20:28 INDICATION: History of diverticulitis. Sigmoid resection. Bowel obstruction. TECHNIQUE: Computed tomography (CT) of the abdomen and pelvis was performed with 100 cc Omnipaque 350 intravenous contrast. The dose-length product was 793.37 mGy-cm. Automated exposure control and iter ative reconstruction technique were employed. COMPARISON: CT dated 10/13/2022. FINDINGS: There is right lower lobe atelectasis. Heart size normal. No significant pleural or pericar dial effusion. Status post cholecystectomy. There is expected prominence of the bile ducts. The liver , spleen, pancreas, adrenal glands and kidneys are unremarkable. Nonobstructive bowel gas pattern. Th ere is a surgical anastomosis at the sigmoid colon. No significant vascular abnormality. No lymphaden opathy. There is 2 mm nonobstructing right renal stone. No free air or free fluid. There are changes of left inguinal hernia repair. IMPRESSION: 1. No acute abdominal abnormality. 2: Nonobstructing right nephrolithiasis. Reviewed, dictated and finalized at location A. SCRIPTS CURATOR
[2023-07-25 15:14] LABS: Basophils Percent Auto 0.5 % (0.2-1.2); Eosinophils Absolute Auto 0.1 K/mm3 (0-0.3); Eosinophils Percent Auto 0.9 % (0-4.4); Hematocrit 46.1 % (42.0-52.0); Hemoglobin 14.9 g/dL (14.0-18.0); Lymphocytes Absolute Auto 1.81 K/mm3 (0.9-3.2); Lymphocytes Percent Auto 33.2 % (18.3-44.2); Mean Corpuscular HGB Conc 32.3 g/dl (32-36); Mean Corpuscular Hemoglobin 26.7 pg (26-34); Mean Corpuscular Volume 82.5 fl (80-100); Mean Platelet Volume 9.1 fl (7.4-10.4); Monocytes Absolute Auto 0.4 K/mm3 (0.1-0.6); Monocytes Percent Auto 6.6 % (2.6-8.5); Neutrophils Absolute Auto 3.2 K/mm3 (1.3-6.7); Neutrophils Percent Auto 58.8 % (45.5-73.1); Platelet Count Result 273 k/mm3 (150-375); Red Blood Count 5.59 M/mm3 (4.6-6.20); Red Cell Distribution Width 14.1 % (11.5-14.5); White Blood Count 5.5 K/mm3 (4.5-10.0)
[2023-07-25 15:25] LABS: Alanine Aminotransferase 37 U/L (6-50); Albumin Level 4.8 g/dL (3.5-5.1); Alkaline Phosphatase 64 U/L (38-126); Anion Gap 13 mmol/L (8-16); Aspartate Amino Transferase 31 U/L (17-59); Bilirubin,Total 0.9 mg/dL (0.2-1.3); Blood Urea Nitrogen 10 mg/dL (9-20); Calcium 9.4 mg/dL (8.4-10.2); Carbon Dioxide 23 mmol/L (22-30); Chloride 102 mmol/L (98-107); Estimated CRCL calculation 79 ml/min; Estimated Glomerular Filt Rate > 60; Glucose 174 mg/dL (65-110); Lipase 118 U/L (23-300); Potassium 4.3 mmol/L (3.4-5.0); Sodium 138 mmol/L (137-145)
[2023-07-25 16:44] LABS: Appearance Urine Clear (Clear); Bilirubin Urine Negative (Negative); Blood Urine Negative (Negative); Color Urine Yellow (Yellow); Glucose Urine UA Negative (Negative); Ketones Urine Trace mg/dL (Negative); Leukocyte Esterase Ur Negative LEU/UL (Negative); Nitrate Urine Negative (Negative); Protein Urine Negative (Negative); Specific Grav Ur 1.019 (1.001-1.035); pH Urine 5.5 (5.0-9.0)
[2023-07-25 17:05] LABS: Add Urine Microscopic? NO
--- NOTE | 2023-07-25 18:18 | ED.GENADULT ---
HPI - General Adult General Chief complaint: Abdominal Pain Stated complaint: abd pain Time Seen by Provider: 07/25/23 18:17 Source: patient Limitations: no limitations History of Present Illness HPI narrative: 53yo w/ abdominal pain and nausea as well as diarrhea x2 days. Denies blood but states stools have mucous and are watery, not formed. They are also oily. He has been bloated and had abdominal distension. Pain is located to the left of his umbilicus. He states he had a bowel obstruction in [facility] 2 weeks ago requiring hospitalization x4 days with placement of NG tube. Eating makes pain worse. Pain 8.5 out of 10 in severity and constant but with intermittent worsening. Pain located to the left of his umbilicus. History of diverticulitis with last colonoscopy 3 years ago. Continues to pass flatus but this is difficult given diarrhea. Hx of multiple surgical procedures in abdomen: 8 inches of sigmoid resection (in [facility]), left inguinal hernia surgery, appendectomy. Also has GERD. Related Data Home Medications Medication Instructions Recorded Confirmed escitalopram oxalate 20 mg tablet 20 mg PO DAILY 07/18/21 02/02/23 modafinil 100 mg tablet 100 mg PO DAILY PRN Systemic Signs 07/18/21 02/02/23 And Symptoms trazodone 100 mg tablet 100 mg PO HS 07/18/21 02/02/23 dulaglutide 0.75 mg/0.5 mL 125 mg subcut WEEKLY 10/19/21 02/02/23 subcutaneous pen injector (Trulicity) empagliflozin 25 mg tablet 25 mg PO DAILY 10/19/21 02/02/23 (Jardiance) famotidine 20 mg tablet (Pepcid AC) 20 mg PO DAILY PRN Indigestion 02/02/23 02/02/23 hyoscyamine sulfate 0.125 mg 0.125 mg sublingual QID PRN 02/02/23 02/02/23 sublingual tablet (Levsin/SL) abdominal cramps Allergies Allergy/AdvReac Type Severity Reaction Status Date / Time gabapentin Allergy Unknown Verified 07/25/23 15:00 ketorolac [From Toradol] Allergy Unknown Verified 07/25/23 15:00 promethazine [From Phenergan] Allergy Unknown Verified 07/25/23 15:00 zolpidem [From Ambien] AdvReac Other Verified 07/25/23 15:00 [facility] Past Medical History Medical History Depression Diverticulitis History of small bowel obstruction Posttraumatic stress disorder Type 2 diabetes mellitus Surgical History Surgical History History of colon resection Sigmoid colon resection for diverticulitis 6-7 years ago in [place]. History of exploratory laparotomy With adhesiolysis for small bowel obstruction 3-4 years ago in [place]. History of laparoscopic appendectomy History of laparoscopic cholecystectomy History of orthopedic surgery Right ankle and hand surgery. Status post laparoscopic Ludmila fundoplication Family History Family History Father Heart disease Grandparent Lung cancer Social History Social History Social History: Surrogate medical decision maker: Annelise Garcia, significant other. Code status: Full code. Smoking status: Never smoker Alcohol intake: never Substance use: never Substance use type: does not use Lack of Transportation: YES Lack of Food: Never True Current Housing: I Have Housing Concerned About Future Housing: No Difficulty Paying Gas/Electric Bills: No Difficulty Paying for Meds: No Currently Unemployed: No Education: High School Diploma/GED Difficulty w/ Childcare or Family Care: No Additional living arrangements comments: Lives in [place] with significant other. He has 1 son. Additional occupation/education comments: Served in the [employer]. 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 Spiritual care concerns: No Exam Narrative: GENERAL: Well-appearing, well-nourished. HEAD: Normocephalic, atraumatic. EYES: No scleral icterus or injection ENT: Nares clear, no rhinorrhea or epistaxis. . NECK: Supple. CHES
[2023-07-25] MEDS: ONDANSETRON INJ 4 MG/2 ML VIAL IV PUSH (19:30)
[2023-07-25] MEDS: MORPHINE SULFATE (*CRX) 4 MG/ML INJ IV PUSH (19:30)
[2023-07-25] MEDS: fentaNYL CITRATE INJ (*CRX) 100 MCG/2 ML VIAL 50 MCG IV PUSH (20:37)
[2023-07-25] MEDS: ACETAMINOPHEN 500 MG TABLET 1000 MG PO (20:37)
[2023-07-25] MEDS: TAMSULOSIN HCL 0.4 MG CAPSULE PO (21:41)
== END 2023-07-25 21:52 | disposition home or self-care (01) ==
PROVIDERS: Emergency Provider Student in an Organized Health Care Education/Training Program; PCP Family Medicine
DX: N20.0 Calculus of kidney (principal); E11.9 Type 2 diabetes mellitus without complications; K21.9 Gastro-esophageal reflux disease without esophagitis; F32.A Depression, unspecified; F43.10 Post-traumatic stress disorder, unspecified; Z90.49 Acquired absence of other specified parts of digestive tract; Z79.85 Long-term (current) use of injectable non-insulin antidiabetic drugs; Z79.84 Long term (current) use of oral hypoglycemic drugs
CPT/HCPCS: 36415; 74177; 80053; 81003; 83690; 85025; 96374; 96375; 99284; A9270; J2270; J2405; J3010; Q9967

== ENCOUNTER 2023-11-12 13:10 | Emergency (ER) | payer OTHER, SELFPAY ==
--- NOTE | ~2023-11-12 | CT_ITS ---
EXAMINATION: CT abdomen pelvis w con DATE: 11/12/2023 14:38 INDICATION: Left lower quadrant abdominal pain and constipation. TECHNIQUE: Computed tomography (CT) of the abdomen and pelvis was performed with 100 mL Omnipaque-350 intravenous contrast. Automated exposure control and iterative reconstruction technique were employe d. The dose-length product was 722.04 mGy-cm. COMPARISON: 07/25/2023 FINDINGS: Mild elevation of the right hemidiaphragm. Lung bases are clear. Heart size is normal. Atheroscleroti c coronary artery calcific location. No pericardial or pleural effusion. Postoperative change of prio r Ludmila fundoplication and cholecystectomy. Liver, spleen, pancreas, bilateral adrenal glands and ki dneys are normal. Status post appendectomy with surgical clips near the tip the cecum. Status post pa rtial sigmoidectomy with pain sigmoid anastomotic suture line. No bowel obstruction or abnormal bowel wall thickening. Bladder is normal. No free intraperitoneal gas or fluid. No pathologically enlarged abdominal or pelvic lymphadenopathy. Small fat-containing umbilical hernia. Postoperative change of prior left inguinal hernia repair. Mild to moderate lower thoracic spondylosis. IMPRESSION: 1. Multiple postoperative changes in the abdomen and pelvis as detailed above. No acute intra-abdomin al/pelvic process. Reviewed, dictated and finalized at location A. IMPRESSION: 1. Multiple postoperative changes in the abdomen and pelvis as detailed above. No acute intra-abdominal/pelvic process.
[2023-11-12 13:30] VITALS: BP 126/88; PULSE 98; RESP 20; TEMP 36.4; O2SAT 98
--- NOTE | 2023-11-12 13:32 | ED.ABDPAIN ---
HPI - Abdominal Pain General Chief Complaint: Abdominal Pain <GABRIEL Rivas Last Filed: 11/12/23 13:38> Stated Complaint: abdominal pain <GABRIEL Rivas Last Filed: 11/12/23 13:38> Time Seen by Provider: 11/12/23 13:32 <GABRIEL Rivas Last Filed: 11/12/23 13:38> Focused HPI: Patient is a 53 y/o male who presents to the ED with c/o LLQ abd pain. Patient reports pain began last Thursday and has been worsening since then. Patient has hx of SBO, adhesions, sigmoidectomy, cholecystectomy, diverticulitis, Yordy fundoplication, hernia repair. Pain feels similar to when he has SBO in the past, last SBO 3 months ago, treated conservatively w/ NG tube at outside hospital. Patient reports nausea and constipation, last bowel movement was Thursday. Denies diarrhea, fevers. He has not taken anything for pain today. GENERAL: Uncomfortable-appearing, well-nourished, and in no acute distress. HEAD: Normocephalic, atraumatic. CHEST: Clear to auscultation. ?No respiratory distress. HEART: Regular rate and rhythm.? ABD: Mildly hypoactive BS. Diffuse tenderness, worst throughout LLQ. Abdomen is soft. NEURO: ?Alert and oriented x3. Patient screened in triage and initial orders placed.? ?Additional care and disposition to be based upon?diagnostic testing and treatment. <GABRIEL Rivas Last Filed: 11/12/23 13:38> Source: patient <GABRIEL Rivas Last Filed: 11/12/23 13:38> Mode of arrival: ambulatory <GABRIEL Rivas Last Filed: 11/12/23 13:38> Limitations: no limitations <GABRIEL Rivas Last Filed: 11/12/23 13:38> History of Present Illness HPI narrative: 53 old male presents emergency department for evaluation lower abdominal pain that started last Thursday. Patient does prior history of multiple abdominal surgeries. Patient does have history of SBO. Patient states he has had decreased bowel movements with associated nausea and vomiting. <Ayaan Guillaume MD - Last Filed: 11/12/23 23:24> Related Data Home Medications: Home Medications Medication Instructions Recorded Confirmed escitalopram oxalate 20 mg tablet 20 mg PO DAILY 07/18/21 02/02/23 modafinil 100 mg tablet 100 mg PO DAILY PRN Systemic Signs 07/18/21 02/02/23 And Symptoms trazodone 100 mg tablet 100 mg PO HS 07/18/21 02/02/23 dulaglutide 0.75 mg/0.5 mL 125 mg subcut WEEKLY 10/19/21 02/02/23 subcutaneous pen injector (Trulicity) empagliflozin 25 mg tablet 25 mg PO DAILY 10/19/21 02/02/23 (Jardiance) famotidine 20 mg tablet (Pepcid AC) 20 mg PO DAILY PRN Indigestion 02/02/23 02/02/23 hyoscyamine sulfate 0.125 mg 0.125 mg sublingual QID PRN 02/02/23 02/02/23 sublingual tablet (Levsin/SL) abdominal cramps <Ann Bravo PA-C - Last Filed: 11/12/23 13:38> Allergies/Adverse Reactions: Allergies Allergy/AdvReac Type Severity Reaction Status Date / Time gabapentin Allergy Unknown Verified 11/12/23 13:10 ketorolac [From Toradol] Allergy Unknown Verified 11/12/23 13:10 promethazine [From Phenergan] Allergy Unknown Verified 11/12/23 13:10 zolpidem [From Ambien] AdvReac Other Verified 11/12/23 13:10 <Ann Bravo PA-C - Last Filed: 11/12/23 13:38> Review of Systems Review of Systems: All systems reviewed & are unremarkable except as noted in HPI and below <Ayaan Guillaume MD - Last Filed: 11/12/23 23:24> PMFSH Past Medical History Medical History: Medical History Depression Diverticulitis History of small bowel obstruction Posttraumatic stress disorder Type 2 diabetes mellitus <Ann Bravo PA-C - Last Filed: 11/12/23 13:38> Surgical History Surgical History: Surgical History History of colon resection Sigmoid colon resection for diverticulitis 6-7 years ago in
[2023-11-12 14:00] LABS: Basophils Percent Auto 0.4 % (0.2-1.2); Eosinophils Absolute Auto 0.1 K/mm3 (0-0.3); Eosinophils Percent Auto 0.9 % (0-4.4); Hematocrit 50.6 % (42.0-52.0); Hemoglobin 16.5 g/dL (14.0-18.0); Lymphocytes Absolute Auto 1.85 K/mm3 (0.9-3.2); Lymphocytes Percent Auto 33.1 % (18.3-44.2); Mean Corpuscular HGB Conc 32.6 g/dl (32-36); Mean Corpuscular Hemoglobin 26.5 pg (26-34); Mean Corpuscular Volume 81.2 fl (80-100); Monocytes Absolute Auto 0.4 K/mm3 (0.1-0.6); Neutrophils Absolute Auto 3.3 K/mm3 (1.3-6.7); Neutrophils Percent Auto 58.6 % (45.5-73.1); Platelet Count Result 283 k/mm3 (150-375); Red Blood Count 6.23 M/mm3 (4.6-6.20); White Blood Count 5.6 K/mm3 (4.5-10.0)
[2023-11-12 14:13] LABS: Lactic Acid Reflex 1.7 mmol/L (0.7-2.0)
[2023-11-12 14:15] LABS: Alanine Aminotransferase 39 U/L (6-50); Alkaline Phosphatase 60 U/L (38-126); Anion Gap 8 mmol/L (8-16); Aspartate Amino Transferase 33 U/L (17-59); Bilirubin,Total 0.6 mg/dL (0.2-1.3); Blood Urea Nitrogen 13 mg/dL (9-20); Calcium 10.3 mg/dL (8.4-10.2); Carbon Dioxide 27 mmol/L (22-30); Chloride 102 mmol/L (98-107); Estimated CRCL calculation 79 ml/min; Estimated Glomerular Filt Rate > 60; Glucose 167 mg/dL (65-110); Lipase 140 U/L (23-300); Potassium 4.1 mmol/L (3.4-5.0); Sodium 137 mmol/L (137-145)
[2023-11-12] MEDS: ONDANSETRON INJ 4 MG/2 ML VIAL IV PUSH (14:27)
[2023-11-12] MEDS: SODIUM CHLORIDE 0.9% IV 1,000 ML 999 ML IV CONT (17:05)
[2023-11-12 17:06] VITALS: BP 127/82; PULSE 85; RESP 18; O2SAT 98
[2023-11-12] MEDS: HYDROmorphone HCL INJ (*CRX) 1 MG/ML SYR 0.5 MG IV PUSH (17:13)
[2023-11-12 17:18] LABS: Appearance Urine Clear (Clear); Bilirubin Urine Negative (Negative); Blood Urine Negative (Negative); Color Urine Yellow (Yellow); Glucose Urine UA Negative (Negative); Ketones Urine Negative (Negative); Leukocyte Esterase Ur Negative LEU/UL (Negative); Nitrate Urine Negative (Negative); Protein Urine Negative (Negative); Urobilinogen Urine 0.2 mg/dL (<2.0)
[2023-11-12 17:20] LABS: Add Urine Microscopic? NO; Specific Grav Ur 1.067 (1.001-1.035)
[2023-11-12] MEDS: HYDROmorphone HCL INJ (*CRX) 1 MG/ML SYR IV PUSH (18:25)
[2023-11-12 18:41] VITALS: BP 141/82; PULSE 62; RESP 15; TEMP 36.6; O2SAT 97
== END 2023-11-12 18:42 | disposition home or self-care (01) ==
PROVIDERS: Physician Assistant; Emergency Provider Emergency Medicine; PCP Family Medicine
DX: R10.32 Left lower quadrant pain (principal); E11.9 Type 2 diabetes mellitus without complications; F32.A Depression, unspecified; Z90.49 Acquired absence of other specified parts of digestive tract; Z79.85 Long-term (current) use of injectable non-insulin antidiabetic drugs; Z79.84 Long term (current) use of oral hypoglycemic drugs
CPT/HCPCS: 36415; 74177; 80053; 83605; 83690; 85025; 96361; 96374; 96375; 96376; 99284; J1170; J2405; J7030; Q9967

== ENCOUNTER 2023-12-03 16:46 | Observation (INO) | payer OTHER, SELFPAY ==
[2023-12-03] VITALS (8 sets, daily range): BP systolic 124–142; BP diastolic 75–85; PULSE 66–97; RESP 13–25; TEMP 36.2; O2SAT 95–100
--- NOTE | ~2023-12-03 | CT_ITS ---
EXAMINATION: CT abdomen pelvis wo con DATE: 12/03/2023 20:36 INDICATION: Generalized abdominal pain TECHNIQUE: Computed tomography (CT) of the abdomen and pelvis was performed without intravenous contr ast. The dose-length product was 656.86 mGy-cm. Automated exposure control and iterative reconstruction technique were employed. COMPARISON: CT dated 11/12/2023. FINDINGS: Mildly distended fluid-filled small bowel without transition point, likely ileus. Postopera tive changes are noted. Small fat-containing umbilical hernia. Dependent atelectasis. Heart size normal. Status post cholecystectomy. The liver, spleen, pancreas, a drenal glands and kidneys are unremarkable. No significant vascular abnormality. No lymphadenopathy. No acute osseous abnormality. IMPRESSION: 1. Fluid-filled distended small bowel with air-fluid levels. No transition 0.5. Findings most likely secondary to ileus. Reviewed, dictated and finalized at location A.
--- NOTE | 2023-12-03 19:47 | ED.GENADULT ---
HPI - General Adult General Chief complaint: Abdominal Pain Stated complaint: abd pain Time Seen by Provider: 12/03/23 19:19 Source: patient Mode of arrival: ambulatory Limitations: no limitations History of Present Illness HPI narrative: This is a 53-year-old male with PMH of T2 dm, SBO, diverticulitis, Ludmila fundoplication who presents to the ED with chief complaint of generalized abdominal pain for the past several days. Reports that he has not had a bowel movement in 6 days. Patient reports that initially had some upper respiratory symptoms but is unsure if this is related. Since then he has had increasing abdominal pain, seems to be little bit worse on the left. No specific triggers or exacerbating factors. Endorses nausea but no vomiting. Denies fevers, chills, urinary symptoms, flank pain, back pain, diarrhea, chest pain, shortness of breath. Abdominal surgical history of colon resection, ex lap, appendectomy, cholecystectomy, Ludmila fundoplication Related Data Home Medications Medication Instructions Recorded Confirmed escitalopram oxalate 20 mg tablet 20 mg PO DAILY 07/18/21 12/04/23 modafinil 100 mg tablet 100 mg PO DAILY PRN Systemic Signs 07/18/21 12/04/23 And Symptoms trazodone 100 mg tablet 100 mg PO HS 07/18/21 12/04/23 famotidine 20 mg tablet (Pepcid AC) 20 mg PO DAILY PRN Indigestion 02/02/23 12/04/23 ibuprofen 600 mg tablet 600 mg PO TID PRN Pain (Scale 12/04/23 12/04/23 Score 1-3) semaglutide 0.25 mg or 0.5 mg (2 0.5 mg subcut WEEKLY 12/04/23 12/04/23 mg/3 mL) subcutaneous pen injector (Ozempic) Allergies Allergy/AdvReac Type Severity Reaction Status Date / Time gabapentin Allergy Unknown Verified 11/12/23 13:10 ketorolac [From Toradol] Allergy Unknown Verified 11/12/23 13:10 promethazine [From Phenergan] Allergy Unknown Verified 11/12/23 13:10 zolpidem [From Ambien] AdvReac Other Verified 11/12/23 13:10 Review of Systems Review of Systems: All systems as dictated in [facility] Past Medical History Medical History Depression Diverticulitis History of small bowel obstruction Posttraumatic stress disorder Type 2 diabetes mellitus Surgical History Surgical History History of colon resection Sigmoid colon resection for diverticulitis 6-7 years ago in [place]. History of exploratory laparotomy With adhesiolysis for small bowel obstruction 3-4 years ago in [place]. History of laparoscopic appendectomy History of laparoscopic cholecystectomy History of orthopedic surgery Right ankle and hand surgery. Status post laparoscopic Ludmila fundoplication Family History Family History Father Heart disease Grandparent Lung cancer Social History Social History Social History: Surrogate medical decision maker: Annelise Garcia, significant other. Code status: Full code. Smoking status: Never smoker Alcohol intake: never Substance use: never Substance use type: does not use Do You Feel Safe in your Home?: Yes Lack of Transportation: No Lack of Food: Never True Current Housing: I Have Housing Concerned About Future Housing: No Difficulty Paying Gas/Electric Bills: No Difficulty Paying for Meds: No Currently Unemployed: No Education: High School Diploma/GED Difficulty w/ Childcare or Family Care: No Additional living arrangements comments: Lives in [place] with significant other. He has 1 son. 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 Spiritual care concerns: No Exam Narrative: GENERAL: Well-appearing, well-nourished, and in no acute distress. HEAD: Normocephalic, atraumatic. EYES: PERRLA and EOMI. ENT: Nares clear, no rhinorrhea or epistaxis. Mucous membranes moist.
[2023-12-03] MEDS: HYDROmorphone HCL INJ (*CRX) 1 MG/ML SYR IV PUSH (20:04)
[2023-12-03] MEDS: SODIUM CHLORIDE 0.9% IV 1,000 ML 999 ML IV CONT (20:04)
[2023-12-03] MEDS: ONDANSETRON INJ 4 MG/2 ML VIAL IV PUSH (20:04)
[2023-12-03 20:14] LABS: Basophils Percent Auto 0.5 % (0.2-1.2); Eosinophils Absolute Auto 0.1 K/mm3 (0-0.3); Eosinophils Percent Auto 0.9 % (0-4.4); Hematocrit 48.8 % (42.0-52.0); Hemoglobin 15.8 g/dL (14.0-18.0); Immature Granulocyte Absolute 0.02 K/mm3 (0.00-0.031); Immature Granulocyte Percent A 0.3 % (0-0.5); Lymphocytes Absolute Auto 2.04 K/mm3 (0.9-3.2); Lymphocytes Percent Auto 31.5 % (18.3-44.2); Mean Corpuscular HGB Conc 32.4 g/dl (32-36); Mean Corpuscular Hemoglobin 26.1 pg (26-34); Mean Corpuscular Volume 80.7 fl (80-100); Mean Platelet Volume 9.4 fl (7.4-10.4); Monocytes Absolute Auto 0.5 K/mm3 (0.1-0.6); Monocytes Percent Auto 7.1 % (2.6-8.5); Neutrophils Absolute Auto 3.9 K/mm3 (1.3-6.7); Neutrophils Percent Auto 59.7 % (45.5-73.1); Platelet Count Result 305 k/mm3 (150-375); Red Blood Count 6.05 M/mm3 (4.6-6.20); Red Cell Distribution Width 13.8 % (11.5-14.5); White Blood Count 6.5 K/mm3 (4.5-10.0)
[2023-12-03 20:20] LABS: Alanine Aminotransferase 28 U/L (6-50); Albumin Level 5.1 g/dL (3.5-5.1); Alkaline Phosphatase 69 U/L (38-126); Anion Gap 10 mmol/L (4-12); Aspartate Amino Transferase 38 U/L (17-59); Bilirubin,Total 0.6 mg/dL (0.2-1.3); Blood Urea Nitrogen 12 mg/dL (9-20); Carbon Dioxide 29 mmol/L (22-30); Chloride 100 mmol/L (98-107); Estimated CRCL calculation 70 ml/min; Estimated Glomerular Filt Rate > 60; Glucose 111 mg/dL (65-110); Lipase 159 U/L (23-300); Potassium 3.5 mmol/L (3.4-5.0); Sodium 139 mmol/L (137-145)
[2023-12-03 20:29] LABS: Lactic Acid Reflex 1.1 mmol/L (0.7-2.0)
[2023-12-03 21:07] LABS: Appearance Urine Clear (Clear); Bilirubin Urine Negative (Negative); Blood Urine Negative (Negative); Color Urine Yellow (Yellow); Glucose Urine UA Negative (Negative); Ketones Urine 1+ mg/dL (Negative); Leukocyte Esterase Ur Negative LEU/UL (Negative); Nitrate Urine Negative (Negative); Protein Urine Negative (Negative); Specific Grav Ur 1.024 (1.001-1.035)
[2023-12-03 21:13] LABS: Add Urine Microscopic? NO
[2023-12-03] MEDS: HYDROmorphone HCL INJ (*CRX) 1 MG/ML SYR 0.5 MG IV PUSH (21:55)
[2023-12-03] MEDS: METOCLOPRAMIDE HCL INJ 10 MG/2 ML VIAL IV PUSH (21:55)
--- NOTE | 2023-12-03 23:02 | PM.IMHP ---
H&P: HPI History of Present Illness Date/Time: 12/03/23 23:02 Chief Complaint: Abdominal pain Narrative: This is a 53-year-old male with past medical history significant for niece in fundoplication, appendectomy, cholecystectomy. Recurrent small-bowel obstruction, adhesions. Patient presents to the emergency room due to 1 week of constipation, poor per orally intake, abdominal pain, patient denies any diarrhea, coffee-ground emesis, hematemesis, bright red blood per rectum. preliminary workup was significant for CT of abdomen and pelvis with ileus. Patient has been placed in observation EXAMINATION: CT abdomen pelvis wo con DATE: 12/03/2023 20:36 INDICATION: Generalized abdominal pain TECHNIQUE: Computed tomography (CT) of the abdomen and pelvis was performed without intravenous contrast. The dose-length product was 656.86 mGy-cm. Automated exposure control and iterative reconstruction technique were employed. COMPARISON: CT dated 11/12/2023. FINDINGS: Mildly distended fluid-filled small bowel without transition point, likely ileus. Postoperative changes are noted. Small fat-containing umbilical hernia. Dependent atelectasis. Heart size normal. Status post cholecystectomy. The liver, spleen, pancreas, adrenal glands and kidneys are unremarkable. No significant vascular abnormality. No lymphadenopathy. No acute osseous abnormality. of the bleeding issue IMPRESSION: 1. Fluid-filled distended small bowel with air-fluid levels. No transition 0.5. Findings most likely secondary to ileus. Review of Systems Review of Systems: constipation, abdominal pain, poor per orally intake Constitutional: Constitutional: Denies chills, Denies fever(s), Denies malaise and Denies weakness Eyes: Eyes: Denies change in vision ENT: Denies dysphagia and Denies nasal obstruction Cardiovascular: Cardiovascular: Denies chest pain, Denies radiating jaw, neck or arm pain and Denies palpitations Respiratory: Respiratory: Denies chest congestion, Denies cough and Denies dyspnea Gastrointestinal: Gastrointestinal: Reports abdominal pain, Denies melena, Reports bloating, Denies hematochezia, Denies coffee ground emesis, Reports constipation, Reports GI cramping, Reports nausea and Reports vomiting Genitourinary: Genitourinary: Denies dysuria Musculoskeletal: Musculoskeletal: Denies arthralgias Integumentary/Breasts: Skin/Breast: Denies rash Neurologic: Denies focal weakness and Denies Sensory deficit (Neuro) Psychiatric: Psychiatric: Reports no additional psychiatric complaints and Reports as per HPI Endocrine: Endocrine: Denies cold intolerance, Denies fatigue, Denies flushing, Denies heat intolerance, Denies polyphagia, Denies polydipsia, Denies polyuria and Denies palpitations Hematologic/Lymphatic: Hematologic/Lymphatic: Reports no additional hematologic/lymphatic complaints and Reports as per HPI Allergic/Immunologic: Allergic/Immunologic: Reports no additional allergic/immunologic complaints and Reports as per HPI PMFSH Past Medical History Medical History Depression Diverticulitis History of small bowel obstruction Posttraumatic stress disorder Type 2 diabetes mellitus Surgical History Surgical History History of colon resection Sigmoid colon resection for diverticulitis 6-7 years ago in [place]. History of exploratory laparotomy With adhesiolysis for small bowel obstruction 3-4 years ago in [place]. History of laparoscopic appendectomy History of laparoscopic cholecystectomy History of orthopedic surgery Right ankle and hand surgery. Status post laparoscopic Ludmila fundoplication Family History Family History Father Heart disease Grandparent Lung cancer Social History Social History (Reviewed 03/09/23 @ 17:40 by Hali Dawkins,
[2023-12-04] MEDS: SODIUM CHLORIDE 0.9% IV 1,000 ML 125 ML IV CONT (00:11)
[2023-12-04 00:16] VITALS: BP 137/77; PULSE 65; RESP 20; TEMP 36.6; O2SAT 98; BMI 27.9
--- NOTE | 2023-12-04 00:22 | ADMGEN ---
This patient, Erich Allen, was admitted to Medical Room 345-. Patient/family oriented to hospital policies and general routines including ID bracelet, bed and alarms, visiting hours, pain management, procedures, bathroom and other care routines, personal items, smoking policy, room service/diet, and visiting hours. Information on how to activate the Rapid Response Team has been discussed. Patient/Family are encouraged to report perceived risks to care and to ask questions if they do not understand what they are told or what they should do.
[2023-12-04] MEDS: HYDROmorphone HCL INJ (*CRX) 1 MG/ML SYR 0.5 MG IV PUSH ×2 (00:36→04:06)
[2023-12-04 04:48] VITALS: BP 150/84; PULSE 76; RESP 18; TEMP 36.2; O2SAT 99
[2023-12-04] MEDS: DEXTROSE 5%/LACTATED RINGERS 1,000 ML 100 ML IV CONT ×2 (04:49→14:42)
[2023-12-04] MEDS: HYDROmorphone HCL INJ (*CRX) 1 MG/ML SYR IV PUSH ×5 (06:35→21:10)
[2023-12-04] MEDS: PANTOPRAZOLE SODIUM IV 40 MG VIAL IV PUSH ×2 (08:45→21:10)
--- NOTE | 2023-12-04 09:35 | PM.IMPN ---
Progress Note: A&P Assessment and Plan (1) Adynamic ileus: Code(s): K56.0 - Paralytic ileus Status: Acute Assessment and Plan: placed in observation where strict NPO IV fluids support care continue to monitor (2) Type 2 diabetes mellitus: Qualifiers: Diabetes mellitus oil heaterman insulin use: without oil heaterman use Diabetes mellitus complication status: without complication Qualified Code(s): E11.9 - Type 2 diabetes mellitus without complications Code(s): E11.9 - Type 2 diabetes mellitus without complications Status: Acute Assessment and Plan: patient reports well controlled. Will add A1c. Consider fingerstick glucose and sliding scale (3) History of colon resection: Code(s): Z90.49 - Acquired absence of other specified parts of digestive tract Status: Acute Assessment and Plan: prior history of partial colectomy due to bowel obstruction and adhesions (4) Nausea and vomiting: Code(s): R11.2 - Nausea with vomiting, unspecified Status: Acute Assessment and Plan: primarily nausea and dry heaving due to Ludmila fundoplication history (5) Abdominal pain: Code(s): R10.9 - Unspecified abdominal pain Status: Acute Assessment and Plan: see above Time Spent With Patient Time with patient: Greater than 35 minutes Subjective Date/time seen: 12/04/23 09:35 Interval history: This is a 53-year-old male patient with a history of 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 Patient has a history of Ludmila fundoplication so usually does not actually vomit. He reports that he has had treatment with NG tube decompression or 3 times in the last 2 years and he feels like he may need undergo further surgery to clear it occasionally is. Patient has been requiring multiple doses of pain medication due to the discomfort. He reports the pain is to the left of his umbilicus primarily. History of prior cholecystectomy and appendectomy over 10 years ago. Surgery has been consulted. NG tube not placed in the ER due to Ludmila fundoplication history and imaging findings without an obvious transition point. Review of Systems Review of Systems: All systems reviewed & are unremarkable except as noted in HPI and below Exam Narrative: GENERAL: Well-appearing, well-nourished, and in no acute distress. HEAD: Normocephalic, atraumatic. ENT:? Mucous membranes moist. CHEST: Clear to auscultation.? No respiratory distress. HEART: Regular rate and rhythm. ? Normal peripheral pulses. ABDOMEN: soft, diminished bowel sounds, tenderness to the left middle abdomen EXTREMITIES: Normal range of motion. No peripheral edema. SKIN: Warm dry normal color NEURO: Alert and oriented x3. PSYCH: Normal mood and affect Objective Data Vital Signs Vital Signs: Vital Signs - 24 hr 12/03/23 17:08 12/03/23 21:56 12/03/23 19:33 Temperature 36.2 C L Pulse Rate 97 78 83 Respiratory Rate 16 25 H 13 Blood Pressure 142/85 H 132/78 124/85 Pulse Oximetry 96 97 100 Oxygen Delivery 12/03/23 20:31 12/03/23 21:01 12/03/23 23:01 Temperature Pulse Rate 75 74 66 Respiratory Rate 15 16 15 Blood Pressure 126/75 132/78 126/75 Pulse Oximetry 97 97 95 Oxygen Delivery 12/03/23 23:15 12/03/23 23:30 12/04/23 00:16 Temperature 36.6 C Pulse Rate 70 80 65 Respiratory Rate 15 21 H 20 Blood Pressure 137/77 Pulse Oximetry 96 97 98 Oxygen Delivery 12/04/23 00:36 12/04/23 04:48 12/04/23 08:00 Temperature 36.2 C L Pulse Rate 76 Respiratory Rate 18 Blood Pressure 150/84 H Pulse Oximetry 99 Oxygen Delivery Room Air Room Air Intake/Output Intake/Output: Intake & Output 12/01/23 12/02/23 12/03/23 12/04/23 23:59 23:59 23:59 23:59 Intake Total 1000 400 Balance 1000 400 Meds/Results Medi
[2023-12-04 10:11] VITALS: O2SAT 96
[2023-12-04 14:00] VITALS: BP 133/81; PULSE 69; RESP 16; TEMP 36.4; O2SAT 97
[2023-12-04] MEDS: ONDANSETRON INJ 4 MG/2 ML VIAL IV PUSH ×2 (16:12→21:46)
--- NOTE | 2023-12-04 17:34 | PM.CNGS ---
Assessment and Plan Assessment and plan (1) Partial small bowel obstruction: Code(s): K56.600 - Partial intestinal obstruction, unspecified as to cause Status: Acute Assessment and Plan: Exam largely benign, continue serial exams, continue clears for now, encourage out of bed History of Present Illness Consult details Consult date: 12/04/23 Reason for consult: abdominal pain Requesting physician: Troy Squires MD Narrative: The patient is a 53-year-old male presenting to the hospital complaining of crampy abdominal pain, nausea, vomiting, poor appetite. The patient reports that the symptoms have been developing over the last few days. The patient does report some flatus, however denies bowel movement for the last few days. The patient reports that he has had multiple small-bowel obstructions the past and this is very similar to those episodes. Review of Systems Review of Systems: All systems reviewed & are unremarkable except as noted in HPI and below PMFSH Past Medical History Medical History Depression Diverticulitis History of small bowel obstruction Posttraumatic stress disorder Type 2 diabetes mellitus Surgical History Surgical History History of colon resection Sigmoid colon resection for diverticulitis 6-7 years ago in [place]. History of exploratory laparotomy With adhesiolysis for small bowel obstruction 3-4 years ago in [place]. History of laparoscopic appendectomy History of laparoscopic cholecystectomy History of orthopedic surgery Right ankle and hand surgery. Status post laparoscopic Ludmila fundoplication Family History Family History Father Heart disease Grandparent Lung cancer Social History Social History Social History: Surrogate medical decision maker: Annelise Garcia, significant other. Code status: Full code. Smoking status: Never smoker Alcohol intake: never Substance use: never Substance use type: does not use Do You Feel Safe in your Home?: Yes Lack of Transportation: No Lack of Food: Never True Current Housing: I Have Housing Concerned About Future Housing: No Difficulty Paying Gas/Electric Bills: No Difficulty Paying for Meds: No Currently Unemployed: No Education: High School Diploma/GED Difficulty w/ Childcare or Family Care: No Additional living arrangements comments: Lives in [place] with significant other. He has 1 son. Additional occupation/education comments: Served in the [employer]. 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 Spiritual care concerns: No Meds Home Medications and Allergies Home Medications Medication Instructions Recorded Confirmed Type escitalopram oxalate 20 mg tablet 20 mg PO DAILY 07/18/21 12/04/23 History modafinil 100 mg tablet 100 mg PO DAILY PRN Systemic Signs 07/18/21 12/04/23 History And Symptoms trazodone 100 mg tablet 100 mg PO HS 07/18/21 12/04/23 History famotidine 20 mg tablet (Pepcid AC) 20 mg PO DAILY PRN Indigestion 02/02/23 12/04/23 History ibuprofen 600 mg tablet 600 mg PO TID PRN Pain (Scale 12/04/23 12/04/23 History Score 1-3) semaglutide 0.25 mg or 0.5 mg (2 0.5 mg subcut WEEKLY 12/04/23 12/04/23 History mg/3 mL) subcutaneous pen injector (Ozempic) Allergies Allergy/AdvReac Type Severity Reaction Status Date / Time gabapentin Allergy Unknown Verified 11/12/23 13:10 ketorolac [From Toradol] Allergy Unknown Verified 11/12/23 13:10 promethazine [From Phenergan] Allergy Unknown Verified 11/12/23 13:10 zolpidem [From Ambien] AdvReac Other Verified 11/12/23 13:10 Vital Signs Vital Signs - 24 hr 12/03/23 21:56 12/03/23 19:33 12/03/23 20:31 Temperature Pulse Rate 78 83 75 Respiratory Rate 25 H 13 15 Blood Pressure 132/78 124/85 126/75 Pulse Oximetry 97
[2023-12-04 21:08] VITALS: BP 146/79; PULSE 72; RESP 18; TEMP 36.6; O2SAT 97
[2023-12-04 22:54] LABS: Glucose Point of Care 120 mg/dl (65-105)
[2023-12-05] MEDS: ESCITALOPRAM OXALATE 10 MG TABLET 20 MG PO ×2 (00:15→20:31)
[2023-12-05] MEDS: DEXTROSE 5%/LACTATED RINGERS 1,000 ML 100 ML IV CONT ×3 (00:16→23:32)
[2023-12-05] MEDS: traZODone HCL 50 MG TABLET 100 MG PO ×2 (00:16→20:30)
[2023-12-05] MEDS: HYDROmorphone HCL INJ (*CRX) 1 MG/ML SYR IV PUSH ×5 (03:21→21:38)
[2023-12-05 04:00] VITALS: BP 139/76; PULSE 74; RESP 18; TEMP 36.2; O2SAT 98
[2023-12-05 05:57] LABS: Basophils Percent Auto 0.5 % (0.2-1.2); Eosinophils Absolute Auto 0.1 K/mm3 (0-0.3); Eosinophils Percent Auto 1.7 % (0-4.4); Hematocrit 40.4 % (42.0-52.0); Lymphocytes Absolute Auto 1.35 K/mm3 (0.9-3.2); Lymphocytes Percent Auto 32.8 % (18.3-44.2); Mean Corpuscular HGB Conc 32.2 g/dl (32-36); Mean Corpuscular Hemoglobin 26.1 pg (26-34); Mean Corpuscular Volume 81.1 fl (80-100); Mean Platelet Volume 9.2 fl (7.4-10.4); Monocytes Absolute Auto 0.3 K/mm3 (0.1-0.6); Monocytes Percent Auto 8.3 % (2.6-8.5); Neutrophils Absolute Auto 2.3 K/mm3 (1.3-6.7); Neutrophils Percent Auto 56.7 % (45.5-73.1); Platelet Count Result 260 k/mm3 (150-375); Red Blood Count 4.98 M/mm3 (4.6-6.20); Red Cell Distribution Width 13.2 % (11.5-14.5); White Blood Count 4.1 K/mm3 (4.5-10.0)
[2023-12-05 06:06] LABS: Alanine Aminotransferase 40 U/L (6-50); Albumin Level 3.8 g/dL (3.5-5.1); Alkaline Phosphatase 58 U/L (38-126); Anion Gap 4 mmol/L (4-12); Aspartate Amino Transferase 37 U/L (17-59); Bilirubin,Total 0.5 mg/dL (0.2-1.3); Blood Urea Nitrogen 5 mg/dL (9-20); Calcium 8.5 mg/dL (8.4-10.2); Carbon Dioxide 30 mmol/L (22-30); Chloride 101 mmol/L (98-107); Estimated CRCL calculation 85 ml/min; Estimated Glomerular Filt Rate > 60; Glucose 131 mg/dL (65-110); Magnesium 2.3 mg/dL (1.6-2.3); Potassium 3.6 mmol/L (3.4-5.0); Sodium 135 mmol/L (137-145)
[2023-12-05 08:16] LABS: Hemoglobin A1C 7.3 % (<5.7)
[2023-12-05] MEDS: PANTOPRAZOLE SODIUM IV 40 MG VIAL IV PUSH ×2 (08:59→20:31)
--- NOTE | 2023-12-05 10:10 | PM.IMPN ---
Progress Note: A&P Assessment and Plan (1) Adynamic ileus: Code(s): K56.0 - Paralytic ileus Status: Acute Assessment and Plan: placed in observation where strict NPO IV fluids support care continue to monitor (2) Type 2 diabetes mellitus: Qualifiers: Diabetes mellitus remote computer terminal operator insulin use: without remote computer terminal operator use Diabetes mellitus complication status: without complication Qualified Code(s): E11.9 - Type 2 diabetes mellitus without complications Code(s): E11.9 - Type 2 diabetes mellitus without complications Status: Acute Assessment and Plan: patient reports well controlled. Will add A1c. Consider fingerstick glucose and sliding scale 12/04: hemoglobin A1c 7.3. Morning glucose 131 on chemistry panel. Diet advanced to carbohydrate consistent. Will check glucose on morning labs and if more elevated will add Accu-Cheks. (3) History of colon resection: Code(s): Z90.49 - Acquired absence of other specified parts of digestive tract Status: Acute Assessment and Plan: prior history of partial colectomy due to bowel obstruction and adhesions (4) Nausea and vomiting: Code(s): R11.2 - Nausea with vomiting, unspecified Status: Acute Assessment and Plan: primarily nausea and dry heaving due to Ludmila fundoplication history (5) Abdominal pain: Code(s): R10.9 - Unspecified abdominal pain Status: Acute Assessment and Plan: see above Time Spent With Patient Time with patient: 25 - 35 minutes Subjective Date/time seen: 12/05/23 10:10 Interval history: Patient reports that he has not been able to tolerate his food tray yet. Pain and nausea are a little better. No vomiting. He is still requiring pain medicine around the clock. I informed the patient that surgery does not plan on a procedure at this time but the surgeon will re-evaluate him later. Review of Systems Review of Systems: All systems reviewed & are unremarkable except as noted in HPI and below Exam Narrative: GENERAL: Well-appearing, well-nourished, and in no acute distress. HEAD: Normocephalic, atraumatic. ENT:? Mucous membranes moist. CHEST: Clear to auscultation.? No respiratory distress. HEART: Regular rate and rhythm. ? Normal peripheral pulses. ABDOMEN: soft, diminished bowel sounds, tenderness to the left middle and lower abdomen EXTREMITIES: Normal range of motion. No peripheral edema. SKIN: Warm dry normal color NEURO: Alert and oriented x3. PSYCH: Normal mood and affect Objective Data Vital Signs Vital Signs: Vital Signs - 24 hr 12/04/23 10:11 12/04/23 14:00 12/04/23 21:08 Temperature 36.4 C 36.6 C Pulse Rate 69 72 Respiratory Rate 16 18 Blood Pressure 133/81 146/79 H Pulse Oximetry 96 97 97 Oxygen Delivery Room Air 12/04/23 21:10 12/05/23 04:00 Temperature 36.2 C L Pulse Rate 74 Respiratory Rate 18 Blood Pressure 139/76 Pulse Oximetry 98 Oxygen Delivery Room Air Intake/Output Intake/Output: Intake & Output 12/02/23 12/03/23 12/04/23 12/05/23 23:59 23:59 23:59 23:59 Intake Total 1000 1987.3 1256.7 Balance 1000 1987.3 1256.7 Meds/Results Medications: Active Medications Generic Name Dose Route Start Last Admin Trade Name Freq PRN Reason Stop Dose Admin Escitalopram Oxalate 20 mg 12/04/23 23:59 12/05/23 00:15 Escitalopram Oxalate 10 Mg Tablet PO 20 mg HS ENDER Administration Hydromorphone HCl 1 mg 12/04/23 06:16 12/05/23 09:00 Hydromorphone Hcl Inj (*Crx) 1 Mg/Ml Syr IV PUSH 1 mg Q3H PRN Administration Pain Rated 7-10 Dextrose/Lactated Ringer's 1,000 mls @ 100 mls/hr 12/04/23 03:55 12/05/23 00:16 Dextrose 5%/Lactated Ringers IV CONT 100 mls/hr .Q10H ENDER Administration Ondansetron HCl 4 mg 12/04/23 06:17 12/04/23 21:46 Ondansetron Inj 4 Mg/2 Ml Vial IV PUSH 4 mg Q6H PRN Administration Nausea And Vomiting Pantoprazole
--- NOTE | 2023-12-05 13:03 | PM.PNGS ---
Progress Note: A&P Assessment and Plan (1) Adynamic ileus: Code(s): K56.0 - Paralytic ileus Status: Acute Assessment and Plan: resolving, exam benign, will ADAT, encourage OOB Subjective Subjective Date/Time Seen: 12/05/23 13:03 Interval history: feels better, no pain, +flatus, yi clears Review of Systems Review of Systems: All systems reviewed & are unremarkable except as noted in HPI and below Exam Const: General: cooperative, comfortable and no acute distress Resp: Auscultation: clear to auscultation bilaterally Cardio: Rate: regular rate Rhythm: regular rhythm GI: Inspection: normal to inspection and distended GI Palp: No abdominal tenderness, Yes Soft to palpation and No Tenderness to palpation present (GI) Objective Data Vital Signs Vital Signs: Vital Signs - 24 hr 12/04/23 14:00 12/04/23 21:08 12/04/23 21:10 Temperature 36.4 C 36.6 C Pulse Rate 69 72 Respiratory Rate 16 18 Blood Pressure 133/81 146/79 H Pulse Oximetry 97 97 Oxygen Delivery Room Air 12/05/23 04:00 12/05/23 09:00 Temperature 36.2 C L Pulse Rate 74 Respiratory Rate 18 Blood Pressure 139/76 Pulse Oximetry 98 Oxygen Delivery Room Air Intake/Output Intake/Output: Intake & Output 12/02/23 12/03/23 12/04/23 12/05/23 23:59 23:59 23:59 23:59 Intake Total 1000 1988.3 2251.7 Balance 1000 1988.3 2251.7 Meds/Results Medications: Active Medications Generic Name Dose Route Start Last Admin Trade Name Freq PRN Reason Stop Dose Admin Escitalopram Oxalate 20 mg 12/04/23 23:59 12/05/23 00:15 Escitalopram Oxalate 10 Mg Tablet PO 20 mg HS ENDER Administration Hydromorphone HCl 1 mg 12/04/23 06:16 12/05/23 12:50 Hydromorphone Hcl Inj (*Crx) 1 Mg/Ml Syr IV PUSH 1 mg Q3H PRN Administration Pain Rated 7-10 Dextrose/Lactated Ringer's 1,000 mls @ 100 mls/hr 12/04/23 03:55 12/05/23 10:13 Dextrose 5%/Lactated Ringers IV CONT 100 mls/hr .Q10H ENDER Administration Ondansetron HCl 4 mg 12/04/23 06:17 12/04/23 21:46 Ondansetron Inj 4 Mg/2 Ml Vial IV PUSH 4 mg Q6H PRN Administration Nausea And Vomiting Pantoprazole Sodium 40 mg 12/04/23 09:00 12/05/23 08:59 Pantoprazole Sodium Iv 40 Mg Vial IV PUSH 40 mg Q12HR ENDER Administration Trazodone HCl 100 mg 12/04/23 23:45 12/05/23 00:16 Trazodone Hcl 50 Mg Tablet PO 100 mg HS ENDER Administration Radiology Results: ITS Impressions Abdomen/Pelvis CT 12/03/23 20:38 IMPRESSION: 1. Fluid-filled distended small bowel with air-fluid levels. No transition 0.5. Findings most likely secondary to ileus. Labs Labs: Laboratory Results - last 24 hr 12/04/23 12/05/23 22:52 05:22 WBC 4.1 L RBC 4.98 Hgb 13.0 L Hct 40.4 L MCV 81.1 MCH 26.1 MCHC 32.2 RDW 13.2 Plt Count 260 MPV 9.2 Immature Gran % (Auto) 0.0 Neut % (Auto) 56.7 Lymph % (Auto) 32.8 [place] % (Auto) 8.3 Eos % (Auto) 1.7 Baso % (Auto) 0.5 Lymph # (Auto) 1.35 [place] # (Auto) 0.3 Eos # (Auto) 0.1 Baso # (Auto) 0.0 Abs Immat Gran (auto) 0.00 Absolute Neuts (auto) 2.3 Absolute Nucleated RBC 0.000 Nucleated RBC % 0.0 Sodium 135 L Potassium 3.6 Chloride 101 Carbon Dioxide 30 Anion Gap 4 BUN 5 L D Creatinine 0.90 Estim Creat Clear Calc 85 Estimated GFR > 60 Glucose 131 H POC Capillary Glucose 120 H Hemoglobin A1c 7.3 H Calcium 8.5 Magnesium 2.3 Total Bilirubin 0.5 AST 37 ALT 40 Alkaline Phosphatase 58 Total Protein 7.0 Albumin 3.8
[2023-12-05 14:30] VITALS: BP 135/79; PULSE 80; RESP 16; TEMP 36.2; O2SAT 97
[2023-12-05 20:31] VITALS: BP 139/76; PULSE 80; RESP 18; TEMP 36.6; O2SAT 98
[2023-12-05] MEDS: ONDANSETRON INJ 4 MG/2 ML VIAL IV PUSH (20:34)
[2023-12-06] MEDS: HYDROmorphone HCL INJ (*CRX) 1 MG/ML SYR IV PUSH ×2 (01:38→06:26)
[2023-12-06 05:31] VITALS: BP 114/72; PULSE 69; RESP 18; TEMP 36.4; O2SAT 94
[2023-12-06 05:46] LABS: Basophils Percent Auto 0.5 % (0.2-1.2); Eosinophils Absolute Auto 0.1 K/mm3 (0-0.3); Eosinophils Percent Auto 2.1 % (0-4.4); Hemoglobin 13.2 g/dL (14.0-18.0); Immature Granulocyte Absolute 0.01 K/mm3 (0.00-0.031); Immature Granulocyte Percent A 0.2 % (0-0.5); Lymphocytes Absolute Auto 1.45 K/mm3 (0.9-3.2); Mean Corpuscular HGB Conc 32.2 g/dl (32-36); Mean Corpuscular Hemoglobin 26.3 pg (26-34); Mean Corpuscular Volume 81.8 fl (80-100); Mean Platelet Volume 9.2 fl (7.4-10.4); Monocytes Absolute Auto 0.3 K/mm3 (0.1-0.6); Neutrophils Absolute Auto 2.4 K/mm3 (1.3-6.7); Neutrophils Percent Auto 55.2 % (45.5-73.1); Platelet Count Result 288 k/mm3 (150-375); Red Blood Count 5.01 M/mm3 (4.6-6.20); Red Cell Distribution Width 13.3 % (11.5-14.5); White Blood Count 4.3 K/mm3 (4.5-10.0)
[2023-12-06 05:50] LABS: Alanine Aminotransferase 32 U/L (6-50); Albumin Level 3.9 g/dL (3.5-5.1); Alkaline Phosphatase 55 U/L (38-126); Anion Gap 5 mmol/L (4-12); Aspartate Amino Transferase 27 U/L (17-59); Bilirubin,Total 0.5 mg/dL (0.2-1.3); Blood Urea Nitrogen 5 mg/dL (9-20); Calcium 9.1 mg/dL (8.4-10.2); Carbon Dioxide 31 mmol/L (22-30); Chloride 100 mmol/L (98-107); Estimated CRCL calculation 77 ml/min; Estimated Glomerular Filt Rate > 60; Glucose 166 mg/dL (65-110); Magnesium 2.2 mg/dL (1.6-2.3); Potassium 3.5 mmol/L (3.4-5.0); Sodium 136 mmol/L (137-145)
[2023-12-06] MEDS: DOCUSATE SODIUM 100 MG CAPSULE PO (08:56)
[2023-12-06] MEDS: PANTOPRAZOLE SODIUM IV 40 MG VIAL IV PUSH (08:56)
[2023-12-06] MEDS: polyethylene glycoL 3350 17 GM POWD.PACK PO (08:56)
[2023-12-06] MEDS: DEXTROSE 5%/LACTATED RINGERS 1,000 ML 100 ML IV CONT (08:58)
--- NOTE | 2023-12-06 10:45 | PM.PNGS ---
Progress Note: A&P Assessment and Plan (1) Adynamic ileus: Code(s): K56.0 - Paralytic ileus Status: Acute Assessment and Plan: yi diet but c nausea afterward, agree c bowel stimulation c Miralax, encourage OOB, exam benign Subjective Subjective Date/Time Seen: 12/06/23 10:45 Interval history: feels about the same, still c some nausea after eating, +flatus, no bowel movts Review of Systems Review of Systems: All systems reviewed & are unremarkable except as noted in HPI and below Exam Const: General: cooperative, comfortable and no acute distress Resp: Auscultation: clear to auscultation bilaterally Cardio: Rate: regular rate Rhythm: regular rhythm GI: Inspection: normal to inspection and non-distended GI Palp: No abdominal tenderness and Yes Soft to palpation Objective Data Vital Signs Vital Signs: Vital Signs - 24 hr 12/05/23 14:30 12/05/23 20:31 12/05/23 20:00 Temperature 36.2 C L 36.6 C Pulse Rate 80 80 Respiratory Rate 16 18 Blood Pressure 135/79 139/76 Pulse Oximetry 97 98 Oxygen Delivery Room Air 12/06/23 05:31 Temperature 36.4 C Pulse Rate 69 Respiratory Rate 18 Blood Pressure 114/72 Pulse Oximetry 94 Oxygen Delivery Intake/Output Intake/Output: Intake & Output 12/03/23 12/04/23 12/05/23 12/06/23 23:59 23:59 23:59 23:59 Intake Total 1000 1988.3 3451.7 1243.3 Balance 1000 1988.3 3451.7 1243.3 Meds/Results Medications: Active Medications Generic Name Dose Route Start Last Admin Trade Name Freq PRN Reason Stop Dose Admin Hydrocodone Bitart/Acetaminophen 1 tab 12/06/23 07:28 Hydrocodone/Acetaminophen (*Crx) 7.5-325 Mg Tablet PO Q6H PRN Pain Rated 7-10 Docusate Sodium 100 mg 12/06/23 09:00 12/06/23 08:56 Docusate Sodium 100 Mg Capsule PO 100 mg Q12HR ENDER Administration Escitalopram Oxalate 20 mg 12/04/23 23:59 12/05/23 20:31 Escitalopram Oxalate 10 Mg Tablet PO 20 mg HS ENDER Administration Hydromorphone HCl 1 mg 12/06/23 07:31 Hydromorphone Hcl Inj (*Crx) 1 Mg/Ml Syr IV PUSH Q4H PRN Pain Rated 7-10 Dextrose/Lactated Ringer's 1,000 mls @ 100 mls/hr 12/04/23 03:55 12/06/23 08:58 Dextrose 5%/Lactated Ringers IV CONT 100 mls/hr .Q10H ENDER Administration Ibuprofen 600 mg 12/06/23 07:30 Ibuprofen 600 Mg Tablet PO Q6H PRN Pain 1-6 Ondansetron HCl 4 mg 12/04/23 06:17 12/05/23 20:34 Ondansetron Inj 4 Mg/2 Ml Vial IV PUSH 4 mg Q6H PRN Administration Nausea And Vomiting Pantoprazole Sodium 40 mg 12/04/23 09:00 12/06/23 08:56 Pantoprazole Sodium Iv 40 Mg Vial IV PUSH 40 mg Q12HR ENDER Administration Polyethylene Glycol 17 gm 12/06/23 09:00 12/06/23 08:56 Polyethylene Glycol 3350 17 Gm Powd.Pack PO 17 gm QAM ENDER Administration Trazodone HCl 100 mg 12/04/23 23:45 12/05/23 20:30 Trazodone Hcl 50 Mg Tablet PO 100 mg HS ENDER Administration Radiology Results: ITS Impressions Abdomen/Pelvis CT 12/03/23 20:38 IMPRESSION: 1. Fluid-filled distended small bowel with air-fluid levels. No transition 0.5. Findings most likely secondary to ileus. Labs Labs: Laboratory Results - last 24 hr 12/06/23 05:16 WBC 4.3 L RBC 5.01 Hgb 13.2 L Hct 41.0 L MCV 81.8 MCH 26.3 MCHC 32.2 RDW 13.3 Plt Count 288 MPV 9.2 Immature Gran % (Auto) 0.2 Neut % (Auto) 55.2 Lymph % (Auto) 34.0 [place] % (Auto) 8.0 Eos % (Auto) 2.1 Baso % (Auto) 0.5 Lymph # (Auto) 1.45 [place] # (Auto) 0.3 Eos # (Auto) 0.1 Baso # (Auto) 0.0 Abs Immat Gran (auto) 0.01 Absolute Neuts (auto) 2.4 Absolute Nucleated RBC 0.000 Nucleated RBC % 0.0 Sodium 136 L Potassium 3.5 Chloride 100 Carbon Dioxide 31 H Anion Gap 5 BUN 5 L Creatinine 1.00 Estim Creat Clear Calc 77 Estimated GFR > 60 Glucose 166 H Calcium 9.1 Magnesium 2.2 Total Bilirubin 0.5 AST 27 ALT 32 Alkaline Phosphatase 55 Total Protein 7.0
[2023-12-06] MEDS: HYDROcodone/acetaminophen (*CRX) 7.5-325 MG TABLET 1 TAB PO (10:54)
--- NOTE | 2023-12-06 11:33 | PM.DS ---
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: without moth exterminator use Diabetes mellitus complication status: without complication Qualified Code(s): E11.9 - Type 2 diabetes mellitus without complications Code(s): E11.9 - Type 2 diabetes mellitus without complications Status: Acute (3) History of colon resection: Code(s): Z90.49 - Acquired absence of other specified parts of digestive tract Status: Acute (4) Nausea and vomiting: Code(s): R11.2 - Nausea with vomiting, unspecified Status: Acute (5) Abdominal pain: Code(s): R10.9 - Unspecified abdominal pain Status: Acute DS: Summary Hospital Course Hospital Course: This is a 53 year old male patient with Type 2 diabetes on Ozempic, prior colon resection from small bowel obstruction, ADHD and depression/anxiety who was admitted for left sided abdominal pain with CT findings of adynamic ileus and clinical concern for recurrent SBO. patient was seen in consultation with General surgery. Abdominal exam has remained nonsurgical. Patient is advancing his diet and tolerating a diabetic diet today. Pain is controlled by oral medication. Stool softeners and with permission of surgery Senokot were added to overcome constipation. Patient states he is feeling better and ready to be discharged. Discharge oral pain medication nausea medication follow-up with primary care. Status at Discharge Cognitive/behavioral status at discharge: awake alert oriented pleasant Functional status at discharge: independent ambulation Overall status at discharge: patient is progressing back to baseline Time Spent with Patient Time attestation: Total time spent providing and/or coordinating discharge services: 35 minutes Time spent: Greater than 30 minutes Exam Narrative: GENERAL: Well-appearing, well-nourished, and in no acute distress. HEAD: Normocephalic, atraumatic. ENT:? Mucous membranes moist. CHEST: Clear to auscultation.? No respiratory distress. HEART: Regular rate and rhythm. ? Normal peripheral pulses. ABDOMEN: soft, diminished bowel sounds, minimal tenderness to the left abdomen EXTREMITIES: Normal range of motion. No peripheral edema. SKIN: Warm dry normal color NEURO: Alert and oriented x3. PSYCH: Normal mood and affect DS: Data Data Completed and Pending Completed studies during hospitalization: abdomen pelvis CT Labs on day of discharge: Labs from last 24 hours 12/06/23 05:16 WBC 4.3 L RBC 5.01 Hgb 13.2 L Hct 41.0 L MCV 81.8 MCH 26.3 MCHC 32.2 RDW 13.3 Plt Count 288 MPV 9.2 Immature Gran % (Auto) 0.2 Neut % (Auto) 55.2 Lymph % (Auto) 34.0 [place] % (Auto) 8.0 Eos % (Auto) 2.1 Baso % (Auto) 0.5 Lymph # (Auto) 1.45 [place] # (Auto) 0.3 Eos # (Auto) 0.1 Baso # (Auto) 0.0 Abs Immat Gran (auto) 0.01 Absolute Neuts (auto) 2.4 Absolute Nucleated RBC 0.000 Nucleated RBC % 0.0 Sodium 136 L Potassium 3.5 Chloride 100 Carbon Dioxide 31 H Anion Gap 5 BUN 5 L Creatinine 1.00 Estim Creat Clear Calc 77 Estimated GFR > 60 Glucose 166 H Calcium 9.1 Magnesium 2.2 Total Bilirubin 0.5 AST 27 ALT 32 Alkaline Phosphatase 55 Total Protein 7.0 Albumin 3.9 Discharge Plan Discharge Attending physician on discharge: Alex Ramos Consulting providers: Charo Jin; Sudheer Allen Discharging Clinician: Ciaran Ramirez Anticipated Discharge Date/Time: 12/06/23 18:00 Patient Disposition: Home, Self-Care Activity: no driving and as tolerated Diet: diabetic Discharge Instructions: Discontinue Ozempic a
[2023-12-06] MEDS: SENNA/DOCUSATE SODIUM TABLET 1 TAB PO (12:28)
[2023-12-06 14:06] VITALS: BP 112/70; PULSE 77; RESP 16; TEMP 36.2; O2SAT 98
== END 2023-12-06 16:14 | disposition home or self-care (01) ==
LOC: ANHED 23:16 → ANH3MED 12-04 02:25
PROVIDERS: Nurse Practitioner; Admitting Provider Internal Medicine; Emergency Provider Physician Assistant; PCP Family Medicine; Visit Provider Internal Medicine
DX: K56.0 Paralytic ileus (principal); K56.600 Partial intestinal obstruction, unspecified as to cause; E11.9 Type 2 diabetes mellitus without complications; F32.A Depression, unspecified; F43.10 Post-traumatic stress disorder, unspecified; Z90.49 Acquired absence of other specified parts of digestive tract; Z79.85 Long-term (current) use of injectable non-insulin antidiabetic drugs; F90.9 Attention-deficit hyperactivity disorder, unspecified type
CPT/HCPCS: 36415; 74176; 80048; 80053; 80076; 81003; 82948; 83036; 83605; 83690; 83735; 85025; 96361; 96374; 96375; 96376; 99285; A9270; C9113; G0378; J1170; J2405; J2765; J7030; J7121

== ENCOUNTER 2024-01-04 19:19 | Emergency (ER) | payer OTHER, SELFPAY ==
--- NOTE | ~2024-01-04 | CT_ITS ---
EXAMINATION: CT abdomen pelvis w con DATE: 01/04/2024 21:42 INDICATION: Eval sbo TECHNIQUE: Computed tomography (CT) of the abdomen and pelvis was performed with 100 mL Omnipaque-350 intravenous contrast. Automated exposure control and iterative reconstruction technique were employe d. The dose-length product was 741.33 mGy-cm. COMPARISON: 12/03/2023. FINDINGS: Lower thorax: Unremarkable Liver: Mildly enlarged. Diffuse fatty infiltration. Biliary/Gallbladder: Gallbladder is absent. No bile duct dilation. Pancreas: No mass or duct dilation. Spleen: Normal. Adrenals:No mass. Kidneys: No suspicious mass, obstructing stone, or hydronephrosis. GI tract: Multiple loops of mildly dilated jejunum with pronounced wall thickening. Uniform bowel wal l enhancement. No surrounding inflammatory change. Normal large bowel. Uncomplicated sigmoid anastomo sis. Appendix surgically absent Mesentery/Peritoneum: No ascites, mass, or free air. Retroperitoneum: No mass. Atherosclerotic abdominal aortic and/or arterial calcifications. Pelvis: Pelvic organs are within normal limits. Soft Tissues: Soft tissues and body wall unremarkable. Bones: No acute osseous finding. IMPRESSION: Hepatomegaly with steatosis. Loops of mildly dilated jejunum with wall thickening, likely representing enteritis. No CT findings o f charles obstruction or bowel necrosis. Reviewed, dictated and finalized at location K. IMPRESSION: Hepatomegaly with steatosis. Loops of mildly dilated jejunum with wall thickening, likely representing enter itis. No CT findings of charles obstruction or bowel necrosis.
[2024-01-04 19:30] VITALS: BP 113/81; PULSE 99; RESP 16; TEMP 36.6; O2SAT 98
[2024-01-04 20:17] LABS: Basophils Percent Auto 0.4 % (0.2-1.2); Eosinophils Absolute Auto 0.1 K/mm3 (0-0.3); Eosinophils Percent Auto 1.3 % (0-4.4); Hematocrit 45.7 % (42.0-52.0); Immature Granulocyte Absolute 0.01 K/mm3 (0.00-0.031); Immature Granulocyte Percent A 0.1 % (0-0.5); Lymphocytes Absolute Auto 2.22 K/mm3 (0.9-3.2); Lymphocytes Percent Auto 31.9 % (18.3-44.2); Mean Corpuscular HGB Conc 32.8 g/dl (32-36); Mean Corpuscular Hemoglobin 26.6 pg (26-34); Mean Corpuscular Volume 81.2 fl (80-100); Mean Platelet Volume 9.2 fl (7.4-10.4); Monocytes Absolute Auto 0.4 K/mm3 (0.1-0.6); Neutrophils Absolute Auto 4.2 K/mm3 (1.3-6.7); Neutrophils Percent Auto 60.3 % (45.5-73.1); Platelet Count Result 287 k/mm3 (150-375); Red Blood Count 5.63 M/mm3 (4.6-6.20); Red Cell Distribution Width 14.1 % (11.5-14.5)
[2024-01-04 20:31] LABS: Alanine Aminotransferase 30 U/L (6-50); Albumin Level 4.6 g/dL (3.5-5.1); Alkaline Phosphatase 53 U/L (38-126); Anion Gap 10 mmol/L (4-12); Aspartate Amino Transferase 26 U/L (17-59); Bilirubin,Total 0.5 mg/dL (0.2-1.3); Blood Urea Nitrogen 10 mg/dL (9-20); Calcium 9.9 mg/dL (8.4-10.2); Carbon Dioxide 28 mmol/L (22-30); Chloride 99 mmol/L (98-107); Estimated CRCL calculation 79 ml/min; Estimated Glomerular Filt Rate > 60; Glucose 175 mg/dL (65-110); Lipase 132 U/L (23-300); Potassium 4.2 mmol/L (3.4-5.0); Sodium 137 mmol/L (137-145)
[2024-01-04 22:28] LABS: Appearance Urine Clear (Clear); Bilirubin Urine Negative (Negative); Blood Urine Negative (Negative); Color Urine Yellow (Yellow); Glucose Urine UA Negative (Negative); Ketones Urine Negative (Negative); Leukocyte Esterase Ur Negative LEU/UL (Negative); Nitrate Urine Negative (Negative); Protein Urine Negative (Negative); Urobilinogen Urine 0.2 mg/dL (<2.0); pH Urine 5.5 (5.0-9.0)
--- NOTE | 2024-01-04 22:45 | ED.ABDPAIN ---
HPI - Abdominal Pain General Chief Complaint: Abdominal Pain Stated Complaint: abd pain Time Seen by Provider: 01/04/24 22:17 History of Present Illness HPI narrative: 53-year-old male with a history of type 2 diabetes, depression, PTSD, multiple bowel obstructions presents to emergency department for generalized abdominal pain worse on the left side for the past 3 days. Patient reports associated nausea and dry heaving, no emesis. Last bowel movement was 4-5 days ago. States he has not been able to pass flatulence the past few days. Prior abdominal surgeries include a cholecystectomy, appendectomy, hernia repair, sigmoid colectomy from diverticulitis, Yordy fundoplication. Patient denies fever, dysuria or hematuria. Of note, patient was admitted to our hospital on 12/03/2023 for ileus and observation for concern for SBO. He was discharged home on 12/05. Patient states he traveled to [place] in the end of November and went to a hospital in [place] on 12/16 for similar symptoms. He was hospitalized with an NG tube was discharged shortly after with improvement. Related Data Home Medications Medication Instructions Recorded Confirmed escitalopram oxalate 20 mg tablet 20 mg PO DAILY 07/18/21 12/04/23 modafinil 100 mg tablet 100 mg PO DAILY PRN Systemic Signs 07/18/21 12/04/23 And Symptoms trazodone 100 mg tablet 100 mg PO HS 07/18/21 12/04/23 famotidine 20 mg tablet (Pepcid AC) 20 mg PO DAILY PRN Indigestion 02/02/23 12/04/23 ibuprofen 600 mg tablet 600 mg PO TID PRN Pain (Scale 12/04/23 12/04/23 Score 1-3) Allergies Allergy/AdvReac Type Severity Reaction Status Date / Time gabapentin Allergy Unknown Verified 01/04/24 19:19 ketorolac [From Toradol] Allergy Unknown Verified 01/04/24 19:19 promethazine [From Phenergan] Allergy Unknown Verified 01/04/24 19:19 zolpidem [From Ambien] AdvReac Other Verified 01/04/24 19:19 Review of Systems Review of Systems: CONSTITUTIONAL: Denies fever, chills, or sweats. EYES: Denies visual changes, redness, or discharge. ENT: Denies rhinorrhea, congestion, sore throat, or otalgia. CARDIOVASCULAR: Denies chest pain, palpitations, or edema. RESPIRATORY: Denies cough or dyspnea. GASTROINTESTINAL: See HPI GENITOURINARY: Denies dysuria or hematuria. SKIN: Denies rash or itching. MUSCULOSKELETAL: Denies back pain, joint pain, or myalgia. NEUROLOGIC: Denies headache, numbness, or weakness. PSYCHIATRIC: Denies anxiety or depression. [facility] Past Medical History Medical History Depression Diverticulitis History of small bowel obstruction Posttraumatic stress disorder Type 2 diabetes mellitus Surgical History Surgical History History of colon resection Sigmoid colon resection for diverticulitis 6-7 years ago in [place]. History of exploratory laparotomy With adhesiolysis for small bowel obstruction 3-4 years ago in [place]. History of laparoscopic appendectomy History of laparoscopic cholecystectomy History of orthopedic surgery Right ankle and hand surgery. Status post laparoscopic Ludmila fundoplication Family History Family History Father Heart disease Grandparent Lung cancer Social History Social History Social History: Surrogate medical decision maker: Annelise Garcia, significant other. Code status: Full code. Smoking status: Never smoker Alcohol intake: never Substance use: never Substance use type: does not use Do You Feel Safe in your Home?: Yes Lack of Transportation: No Lack of Food: Never True Current Housing: I Have Housing Concerned About Future Housing: No Difficulty Paying Gas/Electric Bills: No Difficulty Paying for Meds: No Currently Unemployed: No Education: High School Diploma/GED Difficulty w/ Child
[2024-01-04 22:53] LABS: Specific Grav Ur 1.059 (1.001-1.035)
[2024-01-04 22:57] LABS: Add Urine Microscopic? NO
[2024-01-04] MEDS: ONDANSETRON INJ 4 MG/2 ML VIAL IV PUSH (23:03)
[2024-01-04] MEDS: MORPHINE SULFATE (*CRX) 4 MG/ML INJ IV PUSH (23:03)
[2024-01-04] MEDS: SODIUM CHLORIDE 0.9% IV 1,000 ML 999 ML IV CONT (23:03)
[2024-01-04 23:07] VITALS: BP 112/71; PULSE 88; RESP 17; O2SAT 94
--- NOTE | 2024-01-04 23:15 | PC.NURSE ---
This RN took over patient care after receiving report from YENNY Rodriguez.
[2024-01-04 23:54] VITALS: PULSE 79; RESP 18; O2SAT 96
[2024-01-05 00:10] VITALS: BP 113/70; PULSE 79; RESP 18; O2SAT 96
== END 2024-01-05 00:15 | disposition home or self-care (01) ==
PROVIDERS: Emergency Medicine; Emergency Provider Physician Assistant; PCP Family Medicine
DX: K52.9 Noninfective gastroenteritis and colitis, unspecified (principal); E11.9 Type 2 diabetes mellitus without complications; F32.A Depression, unspecified
CPT/HCPCS: 36415; 74177; 80053; 81003; 83690; 85025; 96361; 96374; 96375; 99284; J2270; J2405; J7030; Q9967

== ENCOUNTER 2024-01-10 00:28 | Emergency (ER) | payer OTHER, SELFPAY ==
--- NOTE | ~2024-01-10 | CT_ITS ---
EXAMINATION: CT abdomen pelvis w con DATE: 01/10/2024 02:05 INDICATION: Small bowel obstruction. TECHNIQUE: Computed tomography (CT) of the abdomen and pelvis was performed with 100 mL Omnipaque 350 intravenous contrast. Automated exposure control and iterative reconstruction technique were employe d. The dose-length product was 563.39 mGy-cm. COMPARISON: CT abdomen and pelvis 01/04/2024 FINDINGS: The visualized portions of the lung bases demonstrate mild atelectasis. No pleural effusion . The heart size is normal. No pericardial effusion. The liver is normal. There are changes of cholec ystectomy. The spleen, pancreas, adrenal glands, and kidneys are normal. There are no dilated loops o f bowel. There are changes of appendectomy. There are no pathologically enlarged lymph nodes. There i s no free intraperitoneal fluid. There is an umbilical hernia containing fat. There is mild thoracic and lumbar spondylosis. IMPRESSION: 1. Umbilical hernia containing fat. Reviewed, dictated and finalized at location A.
[2024-01-10 00:35] VITALS: BP 123/97; PULSE 94; RESP 19; TEMP 36.7; O2SAT 97
[2024-01-10 00:58] LABS: Basophils Percent Auto 0.5 % (0.2-1.2); Eosinophils Absolute Auto 0.1 K/mm3 (0-0.3); Eosinophils Percent Auto 1.4 % (0-4.4); Hematocrit 42.2 % (42.0-52.0); Hemoglobin 13.9 g/dL (14.0-18.0); Immature Granulocyte Absolute 0.01 K/mm3 (0.00-0.031); Immature Granulocyte Percent A 0.2 % (0-0.5); Lymphocytes Absolute Auto 2.56 K/mm3 (0.9-3.2); Lymphocytes Percent Auto 39.4 % (18.3-44.2); Mean Corpuscular HGB Conc 32.9 g/dl (32-36); Mean Corpuscular Hemoglobin 26.8 pg (26-34); Mean Corpuscular Volume 81.5 fl (80-100); Monocytes Absolute Auto 0.5 K/mm3 (0.1-0.6); Monocytes Percent Auto 6.9 % (2.6-8.5); Neutrophils Absolute Auto 3.4 K/mm3 (1.3-6.7); Neutrophils Percent Auto 51.6 % (45.5-73.1); Platelet Count Result 252 k/mm3 (150-375); Red Blood Count 5.18 M/mm3 (4.6-6.20); Red Cell Distribution Width 14.2 % (11.5-14.5); White Blood Count 6.5 K/mm3 (4.5-10.0)
[2024-01-10 01:16] VITALS: BP 121/86; PULSE 88; RESP 19; RESP 22; O2SAT 94; O2SAT 97
[2024-01-10 01:16] LABS: Lactic Acid Reflex 1.3 mmol/L (0.7-2.0)
[2024-01-10 01:18] LABS: Alanine Aminotransferase 29 U/L (6-50); Albumin Level 4.4 g/dL (3.5-5.1); Alkaline Phosphatase 49 U/L (38-126); Anion Gap 9 mmol/L (4-12); Aspartate Amino Transferase 28 U/L (17-59); Bilirubin,Total 0.7 mg/dL (0.2-1.3); Blood Urea Nitrogen 13 mg/dL (9-20); Carbon Dioxide 23 mmol/L (22-30); Chloride 103 mmol/L (98-107); Estimated CRCL calculation 62 ml/min; Estimated Glomerular Filt Rate 58; Glucose 122 mg/dL (65-110); Lipase 166 U/L (23-300); Sodium 135 mmol/L (137-145)
[2024-01-10 01:31] VITALS: BP 121/90; PULSE 87; RESP 18; O2SAT 98
[2024-01-10] MEDS: ACETAMINOPHEN 500 MG TABLET 1000 MG PO (01:42)
[2024-01-10] MEDS: ONDANSETRON INJ 4 MG/2 ML VIAL IV PUSH (01:42)
[2024-01-10] MEDS: SODIUM CHLORIDE 0.9% IV 1,000 ML 999 ML IV CONT (01:42)
--- NOTE | 2024-01-10 01:46 | ED.ABDPAIN ---
HPI - Abdominal Pain General Chief Complaint: Abdominal Pain <Chelsey Srinivasan PA-C - Last Filed: 01/10/24 01:50> Stated Complaint: Hx of bowel obstructions, last BM two days ago <Chelsey Srinivasan PA-C - Last Filed: 01/10/24 01:50> Time Seen by Provider: 01/10/24 00:47 <Chelsey Srinivasan PA-C - Last Filed: 01/10/24 01:50> History of Present Illness HPI narrative: 53-year-old male with history of type 2 diabetes, depression, PTSD, multiple bowel obstruction presents to the emergency department for abdominal pain for 6 days, worsening over the past day. Patient was seen in our emergency department for similar symptoms and concerns for bowel obstruction. CT at that time and showed foot findings consistent with enteritis, no evidence of SBO. Patient was sent home with antiemetics and advised a clear liquid diet and follow-up with his PCP. He was also advised to start MiraLax for constipation. Patient states he has had have a bowel of MiraLax without improvement his symptoms are starting to worsen. States he had a very small bowel movement yesterday that was very firm. States he has not passed any gas today. He saw his PCP yesterday and was referred to General surgery for further evaluation of his known adhesions in his abdomen. He reports nausea and emesis. Denies fever, chest pain or shortness of breath, dysuria or hematuria. Of note, patient has had approximately 25 CT abdomen pelvis in our emergency department since 2019. <Chelsey Srinivasan PA-C - Last Filed: 01/10/24 01:50> Related Data Home Medications: Home Medications Medication Instructions Recorded Confirmed escitalopram oxalate 20 mg tablet 20 mg PO DAILY 07/18/21 12/04/23 modafinil 100 mg tablet 100 mg PO DAILY PRN Systemic Signs 07/18/21 12/04/23 And Symptoms trazodone 100 mg tablet 100 mg PO HS 07/18/21 12/04/23 famotidine 20 mg tablet (Pepcid AC) 20 mg PO DAILY PRN Indigestion 02/02/23 12/04/23 ibuprofen 600 mg tablet 600 mg PO TID PRN Pain (Scale 12/04/23 12/04/23 Score 1-3) <Chelsey Srinivasan PA-C - Last Filed: 01/10/24 01:50> Allergies/Adverse Reactions: Allergies Allergy/AdvReac Type Severity Reaction Status Date / Time gabapentin Allergy Unknown Verified 01/04/24 19:19 ketorolac [From Toradol] Allergy Unknown Verified 01/04/24 19:19 promethazine [From Phenergan] Allergy Unknown Verified 01/04/24 19:19 zolpidem [From Ambien] AdvReac Other Verified 01/04/24 19:19 <Chelsey Srinivasan PA-C - Last Filed: 01/10/24 01:50> Review of Systems Review of Systems: CONSTITUTIONAL: Denies fever, chills, or sweats. EYES: Denies visual changes, redness, or discharge. ENT: Denies rhinorrhea, congestion, sore throat, or otalgia. CARDIOVASCULAR: Denies chest pain, palpitations, or edema. RESPIRATORY: Denies cough or dyspnea. GASTROINTESTINAL: See HPI GENITOURINARY: Denies dysuria or hematuria. SKIN: Denies rash or itching. MUSCULOSKELETAL: Denies back pain, joint pain, or myalgia. NEUROLOGIC: Denies headache, numbness, or weakness. PSYCHIATRIC: Denies anxiety or depression. <Chelsey Srinivasan PA-C - Last Filed: 01/10/24 01:50> [facility] Past Medical History Medical History: Medical History Depression Diverticulitis History of small bowel obstruction Posttraumatic stress disorder Type 2 diabetes mellitus <Chelsey Srinivasan PA-C - Last Filed: 01/10/24 01:50> Surgical History Surgical History: Surgical History History of colon resection Sigmoid colon resection for diverticulitis 6-7 years ago in [place]. History of exploratory laparotomy With adhesiolysis for small bowel obstruction 3-4 years ago in [place]. History of laparoscopic appendectomy History of laparoscopic cholecystectomy History of orthopedic surgery Right ankle and hand surgery. Status post laparoscopic Ludmila fundopli
[2024-01-10] MEDS: diphenhydrAMINE HCl INJ 50 MG/ML VIAL 25 MG IV PUSH (01:47)
[2024-01-10] MEDS: MORPHINE SULFATE (*CRX) 2 MG/ML INJ IV PUSH (04:22)
[2024-01-10 04:33] LABS: Appearance Urine Clear (Clear); Bilirubin Urine Negative (Negative); Blood Urine Negative (Negative); Color Urine Yellow (Yellow); Glucose Urine UA Negative (Negative); Ketones Urine Negative (Negative); Leukocyte Esterase Ur Negative LEU/UL (Negative); Nitrate Urine Negative (Negative); Protein Urine Negative (Negative)
[2024-01-10 04:39] LABS: Add Urine Microscopic? NO
== END 2024-01-10 05:04 | disposition home or self-care (01) ==
PROVIDERS: Emergency Provider Emergency Medicine; PCP Family Medicine
DX: K52.9 Noninfective gastroenteritis and colitis, unspecified (principal); R10.9 Unspecified abdominal pain; F32.A Depression, unspecified; E11.9 Type 2 diabetes mellitus without complications
CPT/HCPCS: 36415; 74177; 80053; 81003; 83605; 83690; 85025; 96361; 96374; 96375; 99284; A9270; J1200; J2270; J2405; J7030; Q9967

== ENCOUNTER 2024-01-17 14:59 | Emergency (ER) | payer OTHER, SELFPAY ==
--- NOTE | ~2024-01-17 | CT_ITS ---
EXAMINATION: CT abdomen pelvis w con DATE: 01/17/2024 19:11 INDICATION: Abdominal pain TECHNIQUE: Computed tomography (CT) of the abdomen and pelvis was performed with 100 cc Omnipaque 350 intravenous contrast. The dose-length product was 800.26 mGy-cm. Automated exposure control and iter ative reconstruction technique were employed. COMPARISON: CT dated 01/10/2024 FINDINGS: Lung bases unremarkable. Heart size normal. No significant pleural or pericardial effusion. Status post cholecystectomy. Fatty infiltration of the liver. The spleen, pancreas, adrenal glands a nd kidneys are unremarkable. There are surgical changes consistent with partial colonic resection. Th ere are changes of left inguinal hernia repair. Small fat-containing umbilical hernia. No free air or free fluid. No significant vascular abnormality. There is a 3 mm nonobstructing right renal stone. T here are changes of appendectomy. No acute osseous abnormality. There is mild bladder wall thickening . IMPRESSION: 1. Mild bladder wall thickening. Correlate clinically for possible cystitis. Reviewed, dictated and finalized at location A.
[2024-01-17 14:59] VITALS: BP 137/84; PULSE 96; RESP 16; TEMP 36.4; O2SAT 98
--- NOTE | 2024-01-17 16:52 | PC.NURSE ---
pt states that it has been going on for three weeks and he's been in and out of the hospital for a while. patient states a hx of bowel obstruction and adhesions. patient unable to have a bm since and bowel pain worsening today.
[2024-01-17 16:57] VITALS: BP 122/74; PULSE 85; RESP 18; O2SAT 96
--- NOTE | 2024-01-17 17:01 | ECG_ITS ---
SEE SCANNED COPY FOR CONFIRMED REPORT MTDD
[2024-01-17 17:33] LABS: Basophils Percent Auto 0.5 % (0.2-1.2); Eosinophils Absolute Auto 0.1 K/mm3 (0-0.3); Eosinophils Percent Auto 1.3 % (0-4.4); Hematocrit 43.5 % (42.0-52.0); Hemoglobin 13.9 g/dL (14.0-18.0); Immature Granulocyte Absolute 0.01 K/mm3 (0.00-0.031); Immature Granulocyte Percent A 0.2 % (0-0.5); Lymphocytes Absolute Auto 1.72 K/mm3 (0.9-3.2); Lymphocytes Percent Auto 26.9 % (18.3-44.2); Mean Corpuscular Hemoglobin 26.4 pg (26-34); Mean Corpuscular Volume 82.5 fl (80-100); Mean Platelet Volume 9.1 fl (7.4-10.4); Monocytes Absolute Auto 0.5 K/mm3 (0.1-0.6); Neutrophils Absolute Auto 4.1 K/mm3 (1.3-6.7); Neutrophils Percent Auto 64.1 % (45.5-73.1); Platelet Count Result 261 k/mm3 (150-375); Red Blood Count 5.27 M/mm3 (4.6-6.20); Red Cell Distribution Width 13.8 % (11.5-14.5); White Blood Count 6.4 K/mm3 (4.5-10.0)
[2024-01-17 17:45] LABS: Prothrombin Time 13.1 Seconds (11.1-14.7)
[2024-01-17 17:46] LABS: Partial Thromboplastin Time 27.3 Seconds (22.3-36.8)
[2024-01-17 17:56] LABS: Alanine Aminotransferase 18 U/L (6-50); Albumin Level 4.2 g/dL (3.5-5.1); Alkaline Phosphatase 55 U/L (38-126); Anion Gap 7 mmol/L (4-12); Aspartate Amino Transferase 22 U/L (17-59); Bilirubin,Total 0.4 mg/dL (0.2-1.3); Blood Urea Nitrogen 15 mg/dL (9-20); Calcium 8.9 mg/dL (8.4-10.2); Carbon Dioxide 26 mmol/L (22-30); Chloride 104 mmol/L (98-107); Estimated CRCL calculation 73 ml/min; Estimated Glomerular Filt Rate > 60; Glucose 143 mg/dL (65-110); Lipase 246 U/L (23-300); Magnesium 2.1 mg/dL (1.6-2.3); Potassium 3.9 mmol/L (3.4-5.0); Sodium 137 mmol/L (137-145)
[2024-01-17 17:59] LABS: Troponin I < 0.012 ng/mL (0.000-0.034)
--- NOTE | 2024-01-17 18:03 | ED.ABDPAIN ---
HPI - Abdominal Pain General Chief Complaint: Abdominal Pain Stated Complaint: abd pain Time Seen by Provider: 01/17/24 17:00 History of Present Illness HPI narrative: Patient is a 53-year-old male with history of prior bowel obstruction, multiple prior abdominal surgeries here with abdominal pain and constipation concerning for a recurrent bowel obstruction. Patient states that he has had prior appendectomy, cholecystectomy, hernia repair, Ludmila fundoplication, sigmoidectomy in the past. he notes multiple prior bowel obstructions due to known adhesions. The last of which was approximately 1 month ago and treated with an NG tube decompression in [place]. Patient notes that over the last year he has needed approximately 4 NG tubes placed and admissions for recurrent bowel obstructions. He states that he currently has an appointment scheduled with Dr. Silva to discussed possible options for his known adhesions to try to prevent recurrent bowel obstructions. He notes that his abdominal discomfort this time has been present for about 3 weeks, waxes and wanes. He has been dealing with some constipation issues over that same period of time. Last bowel movement was approximately 4 days ago. He believes his last flatulence was also couple of days ago. He has some associated nausea, dry heaves, decreased appetite. He denies any fever or chills. He has some diffuse abdominal pain which is moderate in nature. No cough, chest pain, urinary symptoms. He note his urine has been dark in color and he is worried he may be dehydrated. Related Data Home Medications Medication Instructions Recorded Confirmed escitalopram oxalate 20 mg tablet 20 mg PO DAILY 07/18/21 12/04/23 modafinil 100 mg tablet 100 mg PO DAILY PRN Systemic Signs 07/18/21 12/04/23 And Symptoms trazodone 100 mg tablet 100 mg PO HS 07/18/21 12/04/23 famotidine 20 mg tablet (Pepcid AC) 20 mg PO DAILY PRN Indigestion 02/02/23 12/04/23 ibuprofen 600 mg tablet 600 mg PO TID PRN Pain (Scale 12/04/23 12/04/23 Score 1-3) Allergies Allergy/AdvReac Type Severity Reaction Status Date / Time gabapentin Allergy Unknown Verified 01/04/24 19:19 ketorolac [From Toradol] Allergy Unknown Verified 01/04/24 19:19 promethazine [From Phenergan] Allergy Unknown Verified 01/04/24 19:19 zolpidem [From Ambien] AdvReac Other Verified 01/04/24 19:19 Review of Systems Review of Systems: All systems reviewed & are unremarkable except as noted in HPI and below PMFSH Past Medical History Medical History Depression Diverticulitis History of small bowel obstruction Posttraumatic stress disorder Type 2 diabetes mellitus Surgical History Surgical History History of colon resection Sigmoid colon resection for diverticulitis 6-7 years ago in [place]. History of exploratory laparotomy With adhesiolysis for small bowel obstruction 3-4 years ago in [place]. History of laparoscopic appendectomy History of laparoscopic cholecystectomy History of orthopedic surgery Right ankle and hand surgery. Status post laparoscopic Ludmila fundoplication Family History Family History Father Heart disease Grandparent Lung cancer Social History Social History Social History: Surrogate medical decision maker: Annelise Garcia, significant other. Code status: Full code. Smoking status: Never smoker Alcohol intake: never Substance use: never Substance use type: does not use Do You Feel Safe in your Home?: Yes Lack of Transportation: No Lack of Food: Never True Current Housing: I Have Housing Concerned About Future Housing: No Difficulty Paying Gas/Electric Bills: No Difficulty Paying for Meds: No Currently Unemployed: No Education: High School Diploma/GED
[2024-01-17 18:07] LABS: CRP < 0.5 mg/dL (<1.0)
[2024-01-17] MEDS: diphenhydrAMINE HCl INJ 50 MG/ML VIAL 25 MG IV PUSH (18:54)
[2024-01-17] MEDS: MORPHINE SULFATE (*CRX) 4 MG/ML INJ IV PUSH (18:55)
[2024-01-17] MEDS: ONDANSETRON INJ 4 MG/2 ML VIAL IV PUSH (18:55)
[2024-01-17] MEDS: LACTATED RINGERS 1,000 ML 999 ML IV CONT (19:20)
[2024-01-17 20:12] LABS: Appearance Urine Clear (Clear); Bilirubin Urine Negative (Negative); Blood Urine Negative (Negative); Color Urine Yellow (Yellow); Glucose Urine UA Negative (Negative); Ketones Urine Negative (Negative); Leukocyte Esterase Ur Negative LEU/UL (Negative); Nitrate Urine Negative (Negative); Protein Urine Negative (Negative); Urobilinogen Urine 0.2 mg/dL (<2.0); pH Urine 5.5 (5.0-9.0)
[2024-01-17 20:18] LABS: Add Urine Microscopic? NO; Specific Grav Ur 1.039 (1.001-1.035)
[2024-01-17 20:32] VITALS: BP 119/82; PULSE 78; RESP 18; O2SAT 99
== END 2024-01-17 20:34 | disposition home or self-care (01) ==
PROVIDERS: Emergency Provider Student in an Organized Health Care Education/Training Program; PCP Family Medicine
DX: K59.00 Constipation, unspecified (principal); R10.84 Generalized abdominal pain; F32.A Depression, unspecified; E11.9 Type 2 diabetes mellitus without complications
CPT/HCPCS: 36415; 74177; 80053; 81003; 83605; 83690; 83735; 84484; 85025; 85610; 85730; 86140; 93005; 96361; 96374; 96375; 99284; J1200; J2270; J2405; J7120; Q9967

== ENCOUNTER 2024-01-25 16:16 | Emergency (ER) | payer OTHER, SELFPAY ==
--- NOTE | ~2024-01-25 | CT_ITS ---
EXAMINATION: CT abdomen pelvis w con DATE: 01/25/2024 19:06 INDICATION: hx recurrent sbo, L sided abd pain, constipation TECHNIQUE: Computed tomography (CT) of the abdomen and pelvis was performed with 100 mL Omnipaque-350 intravenous contrast. Automated exposure control and iterative reconstruction technique were employe d. The dose-length product was 611.93 mGy-cm. COMPARISON: 01/17/2024. FINDINGS: Lower thorax: Bibasilar scar. Coronary artery calcification. Liver: Normal. Biliary/Gallbladder: Gallbladder is absent. No bile duct dilation. Pancreas: No mass or duct dilation. Spleen: Normal. Adrenals:No mass. Kidneys: No suspicious mass, obstructing stone, or hydronephrosis. Punctate nonobstructing right infe rior pole calcification. GI tract: Uncomplicated sigmoid anastomosis. No small or large bowel dilation. Status post appendecto my. Mesentery/Peritoneum: No ascites, mass, or free air. Retroperitoneum: No mass. Pelvis: Bladder wall thickening and a moderately distended urinary bladder. Soft Tissues: Small fat-containing uncomplicated appearing left inguinal and umbilical hernias. Dubose es of left inguinal hernia repair. Bones: No acute osseous finding. IMPRESSION: Bladder wall thickening may be secondary to cystitis or wall thickening from incomplete distention. Reviewed, dictated and finalized at location K. IMPRESSION: Bladder wall thickening may be secondary to cystitis or wall thickening from in complete distention.
[2024-01-25 16:25] VITALS: BP 125/86; PULSE 87; RESP 14; TEMP 36.6; O2SAT 99
--- NOTE | 2024-01-25 17:00 | ED.ABDPAIN ---
HPI - Abdominal Pain General Chief Complaint: Abdominal Pain <GABRIEL Rivas Last Filed: 01/25/24 19:08> Stated Complaint: abd pain <GABRIEL Rivas Last Filed: 01/25/24 19:08> Time Seen by Provider: 01/25/24 17:00 <GABRIEL Rivas Last Filed: 01/25/24 19:08> Focused HPI: Patient is a 53 y/o male who presents to the ED with c/o L sided abdominal pain. Patient has hx of recurrent SBO, adhesions, sigmoidectomy, cholecystectomy, diverticulitis, Yordy fundoplication, hernia repair. Patient reports current episode of pain began on . Present throughout L sided abd, left of umbilical region. States pain was initially tolerable but has been progressively worsening. Last BM was Thursday, which was firm. Has been using milk of magnesia w/o improvement. Reports nausea, dry heaving, dizziness, weakness. Denies vomiting. Denies fevers. Last bowel obstruction was in November of this year, was in [place] at that time. Treated conservatively with NG tube. Has been seeing Dr. Silva for his abdominal pain, states he is waiting to be referred to a middle school professional. GENERAL: Well-appearing, well-nourished, and in no acute distress. HEAD: Normocephalic, atraumatic. CHEST: Clear to auscultation. ?No respiratory distress. HEART: Regular rate and rhythm.? ABD: Mild tenderness throughout L lower abdomen, periumbilical region, no rebound. Mildly hypoactive BS. NEURO: ?Alert and oriented x3. Patient screened in triage and initial orders placed.? ?Additional care and disposition to be based upon?diagnostic testing and treatment. <GABRIEL Rivas Last Filed: 01/25/24 19:08> Source: patient <GABRIEL Rivas Filed: 01/25/24 19:08> Mode of arrival: ambulatory <GABRIEL Rivas Last Filed: 01/25/24 19:08> Limitations: no limitations <GABRIEL Rivas Filed: 01/25/24 19:08> History of Present Illness HPI narrative: Agree with the above HPI. Patient was evaluated by Dr. Silva on 01/19/2024 where they discuss referral for a GI. Dr. Silva notes reviewed by myself. Patient states he had a colonoscopy 1 year ago which was unremarkable. He is still waiting to hear back from Dr. Silva which GI physician he should follow up with. <GABRIEL Monroy Last Filed: 01/25/24 20:36> Related Data Home Medications: Home Medications Medication Instructions Recorded Confirmed escitalopram oxalate 20 mg tablet 20 mg PO DAILY 07/18/21 01/24/24 modafinil 100 mg tablet 100 mg PO DAILY PRN Systemic Signs 07/18/21 01/24/24 And Symptoms trazodone 100 mg tablet 100 mg PO HS 07/18/21 01/24/24 famotidine 20 mg tablet (Pepcid AC) 20 mg PO DAILY PRN Indigestion 02/02/23 01/24/24 <GABRIEL Rivas Last Filed: 01/25/24 19:08> Allergies/Adverse Reactions: Allergies Allergy/AdvReac Type Severity Reaction Status Date / Time gabapentin Allergy Unknown Verified 01/19/24 11:09 ketorolac [From Toradol] Allergy Unknown Verified 01/19/24 11:09 promethazine [From Phenergan] Allergy Unknown Verified 01/19/24 11:09 zolpidem [From Ambien] AdvReac Other Verified 01/19/24 11:09 <GABRIEL Rivas Last Filed: 01/25/24 19:08> Review of Systems Review of Systems: CONSTITUTIONAL: Denies fever, chills, or sweats. EYES: Denies visual changes, redness, or discharge. ENT: Denies rhinorrhea, congestion, sore throat, or otalgia. CARDIOVASCULAR: Denies chest pain, palpitations, or edema. RESPIRATORY: Denies cough or dyspnea. GASTROINTESTINAL: See HPI GENITOURINARY: Denies dysuria or hematuria. SKIN: Denies rash or itching. MUSCULOSKELETAL: Denies back pain, joint pain, or myalgia. NEUROLOGIC: Denies headache, numbness, or weakness. PSYCHIATRIC: Denies anxiety or depression. <Chelsey Srinivasan PA-C - Last Filed: 01/25/24 20:36> [facility] Past Medical History Medical History: Medical History
[2024-01-25 17:31] LABS: Basophils Percent Auto 0.4 % (0.2-1.2); Eosinophils Absolute Auto 0.1 K/mm3 (0-0.3); Eosinophils Percent Auto 1.1 % (0-4.4); Hematocrit 45.2 % (42.0-52.0); Hemoglobin 14.6 g/dL (14.0-18.0); Immature Granulocyte Absolute 0.01 K/mm3 (0.00-0.031); Immature Granulocyte Percent A 0.2 % (0-0.5); Lymphocytes Absolute Auto 1.81 K/mm3 (0.9-3.2); Lymphocytes Percent Auto 32.6 % (18.3-44.2); Mean Corpuscular HGB Conc 32.3 g/dl (32-36); Mean Corpuscular Hemoglobin 26.2 pg (26-34); Mean Platelet Volume 9.1 fl (7.4-10.4); Monocytes Absolute Auto 0.4 K/mm3 (0.1-0.6); Monocytes Percent Auto 7.2 % (2.6-8.5); Neutrophils Absolute Auto 3.3 K/mm3 (1.3-6.7); Neutrophils Percent Auto 58.5 % (45.5-73.1); Platelet Count Result 262 k/mm3 (150-375); Red Blood Count 5.58 M/mm3 (4.6-6.20); Red Cell Distribution Width 13.8 % (11.5-14.5); White Blood Count 5.6 K/mm3 (4.5-10.0)
[2024-01-25] MEDS: ONDANSETRON INJ 4 MG/2 ML VIAL IV PUSH (17:47)
[2024-01-25] MEDS: HYDROcodone/acetaminophen (*CRX) 5-325 MG TABLET 1 TAB PO (17:48)
[2024-01-25 17:49] LABS: Alanine Aminotransferase 28 U/L (6-50); Albumin Level 4.6 g/dL (3.5-5.1); Alkaline Phosphatase 55 U/L (38-126); Anion Gap 7 mmol/L (4-12); Aspartate Amino Transferase 30 U/L (17-59); Bilirubin,Total 0.6 mg/dL (0.2-1.3); Blood Urea Nitrogen 12 mg/dL (9-20); Calcium 9.4 mg/dL (8.4-10.2); Carbon Dioxide 26 mmol/L (22-30); Chloride 103 mmol/L (98-107); Estimated CRCL calculation 79 ml/min; Estimated Glomerular Filt Rate > 60; Glucose 126 mg/dL (65-110); Lactic Acid Reflex 1.2 mmol/L (0.7-2.0); Lipase 114 U/L (23-300); Sodium 136 mmol/L (137-145)
[2024-01-25] MEDS: SODIUM CHLORIDE 0.9% IV 1,000 ML 999 ML IV CONT (18:51)
[2024-01-25] MEDS: diphenhydrAMINE HCl INJ 50 MG/ML VIAL 25 MG IV PUSH (18:51)
[2024-01-25 19:54] LABS: Appearance Urine Clear (Clear); Bilirubin Urine Negative (Negative); Blood Urine Negative (Negative); Color Urine Yellow (Yellow); Glucose Urine UA Negative (Negative); Ketones Urine Negative (Negative); Leukocyte Esterase Ur Negative LEU/UL (Negative); Nitrate Urine Negative (Negative); Protein Urine Negative (Negative); Urobilinogen Urine 0.2 mg/dL (<2.0); pH Urine 5.5 (5.0-9.0)
[2024-01-25 19:59] LABS: Specific Grav Ur 1.044 (1.001-1.035)
[2024-01-25 20:01] LABS: Add Urine Microscopic? NO
== END 2024-01-25 20:50 | disposition home or self-care (01) ==
PROVIDERS: Physician Assistant; Emergency Provider Physician Assistant; PCP Family Medicine
DX: R10.9 Unspecified abdominal pain (principal); G89.29 Other chronic pain; E11.9 Type 2 diabetes mellitus without complications
CPT/HCPCS: 36415; 74177; 80053; 81003; 83605; 83690; 85025; 96361; 96374; 96375; 99284; A9270; J1200; J2405; J7030; Q9967

== ENCOUNTER 2024-04-24 21:16 | Emergency (ER) | payer OTHER, SELFPAY ==
--- NOTE | ~2024-04-24 | CT_ITS ---
CT of the Abdomen and Pelvis: Indication: Abdominal pain Technique: 2.5 mm axial scans were obtained through the abdomen and pelvis following intravenous adm inistration of 100 cc of Omnipaque 350. Dose reduction technique was used on this scan by utilizing a utomated exposure control and iterative reconstruction technique. The dose-length product (DLP) was 7 76.12 mGy-cm. COMPARISON: 01/25/2024 Findings: Scans through the lung bases demonstrate discoid right basilar atelectasis. There is a 2 c m probable right pericardial cyst (axial image 11). The liver, spleen, pancreas, adrenals and kidneys are within normal limits. Cholecystectomy clips are present. No evidence of aortic aneurysm. No lymphadenopathy. No bowel obstruction or bowel wall thickening. Distal colonic anastomosis noted. Images through the pelvis were performed. Urinary bladder unremarkable. No pelvic mass seen. No ascit es. Impression: No acute abnormalities seen. 2 cm probable right pericardial cyst. Postoperative changes, as above. Reviewed, dictated and finalized at [facility]. Impression: No acute abnormalities seen. 2 cm probable right pericardial cyst. Postoperative changes, as above.
[2024-04-24 21:17] VITALS: BP 137/79; PULSE 103; RESP 20; TEMP 36.7; O2SAT 99
[2024-04-24 21:47] VITALS: O2SAT 99
[2024-04-24 21:48] VITALS: BP 136/88; O2SAT 97
[2024-04-24 21:58] VITALS: BP 136/88; PULSE 94; RESP 16; TEMP 36.7; O2SAT 97
[2024-04-24 22:05] LABS: Basophils Percent Auto 0.5 % (0.2-1.2); Eosinophils Absolute Auto 0.1 K/mm3 (0-0.3); Eosinophils Percent Auto 1.2 % (0-4.4); Hematocrit 43.1 % (42.0-52.0); Hemoglobin 14.4 g/dL (14.0-18.0); Immature Granulocyte Absolute 0.02 K/mm3 (0.00-0.031); Immature Granulocyte Percent A 0.3 % (0-0.5); Lymphocytes Percent Auto 34.7 % (18.3-44.2); Mean Corpuscular HGB Conc 33.4 g/dl (32-36); Mean Corpuscular Hemoglobin 26.8 pg (26-34); Mean Corpuscular Volume 80.3 fl (80-100); Monocytes Absolute Auto 0.4 K/mm3 (0.1-0.6); Monocytes Percent Auto 7.3 % (2.6-8.5); Neutrophils Absolute Auto 3.2 K/mm3 (1.3-6.7); Platelet Count Result 240 k/mm3 (150-375); Red Blood Count 5.37 M/mm3 (4.6-6.20); White Blood Count 5.8 K/mm3 (4.5-10.0)
[2024-04-24 22:19] LABS: Alanine Aminotransferase 21 U/L (6-50); Albumin Level 4.4 g/dL (3.5-5.1); Alkaline Phosphatase 54 U/L (38-126); Anion Gap 12 mmol/L (4-12); Aspartate Amino Transferase 26 U/L (17-59); Bilirubin,Total 0.4 mg/dL (0.2-1.3); Blood Urea Nitrogen 12 mg/dL (9-20); Calcium 8.9 mg/dL (8.4-10.2); Carbon Dioxide 24 mmol/L (22-30); Chloride 100 mmol/L (98-107); Estimated CRCL calculation 72 ml/min; Estimated Glomerular Filt Rate > 60; Glucose 164 mg/dL (65-110); Lipase 317 U/L (23-300); Potassium 3.6 mmol/L (3.4-5.0); Sodium 136 mmol/L (137-145)
--- NOTE | 2024-04-24 23:00 | PC.NURSE ---
Report received from YENNY Maciel. Assumed care of patient at this time.
[2024-04-24] MEDS: SODIUM CHLORIDE 0.9% IV 2,000 ML 999 ML IV CONT (23:03)
[2024-04-24] MEDS: DICYCLOMINE HCL INJ 20 MG/2 ML VIAL IM (23:15)
[2024-04-24] MEDS: ONDANSETRON INJ 4 MG/2 ML VIAL IV PUSH (23:15)
[2024-04-24 23:31] VITALS: BP 131/75
[2024-04-24 23:46] VITALS: BP 131/83
--- NOTE | 2024-04-24 23:56 | PC.NURSE ---
Patient taken to CT via stretcher at this time.
[2024-04-25] VITALS (12 sets, daily range): BP systolic 127–140; BP diastolic 75–88; PULSE 72–77; RESP 17; O2SAT 97–100
[2024-04-25 01:18] LABS: Bacteria Urine None Seen /hpf; Non Pathogenic Casts 0-2; RBC Urine 0-2 /hpf (0-2); Squamous Epithelial Cell Urine None Seen /hpf (Few); WBC Urine 0-5 /hpf (0-3)
[2024-04-25 01:28] LABS: Appearance Urine Clear (Clear); Color Urine Yellow (Yellow)
[2024-04-25 01:29] LABS: Blood Urine Negative (Negative); Glucose Urine UA Negative (Negative); Ketones Urine Negative (Negative); Protein Urine Negative (Negative); pH Urine 5.5 (5.0-9.0)
[2024-04-25 01:30] LABS: Add Urine Microscopic? NO; Bilirubin Urine Negative (Negative); Leukocyte Esterase Ur Negative LEU/UL (Negative); Nitrate Urine Negative (Negative); Urobilinogen Urine 0.2 mg/dL (<2.0)
--- NOTE | 2024-04-25 01:34 | ED.GENADULT ---
HPI - General Adult General Chief complaint: Abdominal Pain Stated complaint: ABDOMINAL PAIN Time Seen by Provider: 04/24/24 22:42 History of Present Illness HPI narrative: This is a 54-year-old male with chronic abdominal pain presenting with left-sided abdominal pain. Symptoms started yesterday. There cramping in nature. There nonradiating. Patient said he had diarrhea 3 days ago and has not had able to have a bowel movement since. He is still passing gas. Patient is concerned he has a small bowel obstruction. This is a chronic problem for this patient. Patient has numerous workups in the ED for small-bowel obstruction occluding frequent CT scans that are typically negative Related Data Home Medications Medication Instructions Recorded Confirmed escitalopram oxalate 20 mg tablet 20 mg PO DAILY 07/18/21 01/24/24 modafinil 100 mg tablet 100 mg PO DAILY PRN Systemic Signs 07/18/21 01/24/24 And Symptoms trazodone 100 mg tablet 100 mg PO HS 07/18/21 01/24/24 famotidine 20 mg tablet (Pepcid AC) 20 mg PO DAILY PRN Indigestion 02/02/23 01/24/24 Allergies Allergy/AdvReac Type Severity Reaction Status Date / Time gabapentin Allergy Anxiety Verified 04/24/24 23:08 ketorolac [From Toradol] Allergy Hives Verified 04/24/24 23:08 promethazine [From Phenergan] Allergy Anxiety Verified 04/24/24 23:08 zolpidem [From Ambien] AdvReac Other Verified 04/24/24 23:08 [facility] Past Medical History Medical History Depression Diverticulitis History of small bowel obstruction Posttraumatic stress disorder Type 2 diabetes mellitus Surgical History Surgical History History of colon resection Sigmoid colon resection for diverticulitis 6-7 years ago in [place]. History of exploratory laparotomy With adhesiolysis for small bowel obstruction 3-4 years ago in [place]. History of laparoscopic appendectomy History of laparoscopic cholecystectomy History of orthopedic surgery Right ankle and hand surgery. Status post laparoscopic Ludmila fundoplication Family History Family History Father Heart disease Grandparent Lung cancer Social History Social History Social History: Surrogate medical decision maker: Annelise Garcia, significant other. Code status: Full code. Smoking status: Never smoker Alcohol intake: never Substance use: never Substance use type: does not use Do You Feel Safe in your Home?: Yes Lack of Transportation: No Lack of Food: Never True Current Housing: I Have Housing Concerned About Future Housing: No Difficulty Paying Gas/Electric Bills: No Difficulty Paying for Meds: No Currently Unemployed: No Education: High School Diploma/GED Difficulty w/ Childcare or Family Care: No Additional living arrangements comments: Lives in [place] with significant other. He has 1 son. Additional occupation/education comments: Served in the [employer]. 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 Spiritual care concerns: No Exam Narrative: APPEARANCE: No apparent distress. Head: atraumatic. EYES: EOMI, NOSE: Atraumatic NECK: Trachea midline RESPIRATORY: No increased rate of breathing CARDIOVASCULAR: RRR, ABDOMINAL: Non-distended left-sided abdominal tenderness, no guarding or rebound MUSCULOSKELETAl: No obvious deformities NEURO: Alert. Moving 4/4 extremities SKIN:: Warm, dry. Normal color PSYCHIATRIC: Normal affect Course Vital Signs Vital signs: Vital Signs Temperature 98.0 F 04/24/24 21:17 Pulse Rate 103 H 04/24/24 21:17 Respiratory Rate 20 04/24/24 21:17 Blood Pressure 137/79 04/24/24 21:17 Pulse Oximetry 99 04/24/24 21:17 Oxygen Delivery Room Air 04/24/24 21:17 Temperature 98.1 F 04/24/24 21:58 Pulse Rate 72 04/25/24 01:05 Respiratory Rate 17 09
== END 2024-04-25 01:55 | disposition home or self-care (01) ==
PROVIDERS: Emergency Provider Emergency Medicine; PCP Family Medicine
DX: R10.9 Unspecified abdominal pain (principal); G89.29 Other chronic pain; F32.A Depression, unspecified; E11.9 Type 2 diabetes mellitus without complications; F43.10 Post-traumatic stress disorder, unspecified
CPT/HCPCS: 36415; 74177; 80053; 81003; 83690; 85025; 96361; 96372; 96374; 99284; J0500; J2405; J7030; Q9967

== ENCOUNTER 2024-05-02 17:19 | Emergency (ER) | payer OTHER, SELFPAY ==
--- NOTE | ~2024-05-02 | CT_ITS ---
EXAMINATION: CT abdomen pelvis w con DATE: 05/02/2024 23:26 INDICATION: previous bowel obstruction, abdominal pain TECHNIQUE: Computed tomography (CT) of the abdomen and pelvis was performed with 100 mL Omnipaque-350 intravenous contrast. Automated exposure control and iterative reconstruction technique were employe d. The dose-length product was 813.30 mGy-cm. COMPARISON: 04/24/2024. FINDINGS: Lower thorax: Right lower lobe scar. Calcified right lower lobe granuloma. Coronary artery calcificat ions. Possible right pericardial cyst. Liver: Normal. Biliary/Gallbladder: Gallbladder is absent. No bile duct dilation. Pancreas: No mass or duct dilation. Spleen: Normal. Adrenals:No mass. Kidneys: No suspicious mass, obstructing stone, or hydronephrosis. GI tract: Mild distal esophageal wall edema. Uncomplicated distal sigmoid anastomosis. No small or la rge bowel dilation. Appendix not confidently visualized. Mesentery/Peritoneum: No ascites, mass, or free air. Retroperitoneum: No mass. Pelvis: Pelvic organs are within normal limits. Soft Tissues: Soft tissues and body wall unremarkable. Bones: No acute osseous finding. IMPRESSION: Mild esophagitis. Otherwise, no acute abdominopelvic process detected. Reviewed, dictated and finalized at location K.
[2024-05-02 17:25] VITALS: BP 137/96; PULSE 108; RESP 16; TEMP 36.9; O2SAT 98
--- NOTE | 2024-05-02 17:30 | ED.ABDPAIN ---
HPI - Abdominal Pain General Chief Complaint: Abdominal Pain <Sharee Valdez PA-C - Last Filed: 05/04/24 09:34> Stated Complaint: abdominal pain <Sharee Valdez PA-C - Last Filed: 05/04/24 09:34> Time Seen by Provider: 05/02/24 17:31 <Sharee Valdez PA-C - Last Filed: 05/04/24 09:34> Focused HPI: This is a 54 year old male that presents to the ER for abdominal pain. Ongoing over the last 2 weeks. Reports he was seen here at the onset. It has continued to worsen since. Reports history of blockages. His last BM was 2 days ago. Denies fever, vomiting. GENERAL: Well-appearing, well-nourished, and in no acute distress. HEAD: Normocephalic, atraumatic. CHEST: Clear to auscultation. ?No respiratory distress. HEART: Regular rate and rhythm.? NEURO: ?Alert and oriented x3. Patient screened in triage and initial orders placed.? ?Additional care and disposition to be based upon?diagnostic testing and treatment. <Sharee Valdez PA-C - Last Filed: 05/04/24 09:34> History of Present Illness HPI narrative: I agree with the assessment and documentation by Sharee Valdez PA-C. <Yina Hansen APRN - Last Filed: 05/03/24 02:41> Related Data Home Medications: Home Medications Medication Instructions Recorded Confirmed escitalopram oxalate 20 mg tablet 20 mg PO DAILY 07/18/21 01/24/24 modafinil 100 mg tablet 100 mg PO DAILY PRN Systemic Signs 07/18/21 01/24/24 And Symptoms trazodone 100 mg tablet 100 mg PO HS 07/18/21 01/24/24 famotidine 20 mg tablet (Pepcid AC) 20 mg PO DAILY PRN Indigestion 02/02/23 01/24/24 <Sharee Valdez PA-C - Last Filed: 05/04/24 09:34> Allergies/Adverse Reactions: Allergies Allergy/AdvReac Type Severity Reaction Status Date / Time gabapentin Allergy Anxiety Verified 05/02/24 17:20 ketorolac [From Toradol] Allergy Hives Verified 05/02/24 17:20 promethazine [From Phenergan] Allergy Anxiety Verified 05/02/24 17:20 zolpidem [From Ambien] AdvReac Other Verified 05/02/24 17:20 <Sharee Valdez PA-C - Last Filed: 05/04/24 09:34> Review of Systems Review of Systems: All systems reviewed & are unremarkable except as noted in HPI and below <Yina Hansen APRN - Last Filed: 05/03/24 02:41> [facility] Past Medical History Medical History: Medical History Depression Diverticulitis History of small bowel obstruction Posttraumatic stress disorder Type 2 diabetes mellitus <Sharee Valdez PA-C - Last Filed: 05/04/24 09:34> Surgical History Surgical History: Surgical History History of colon resection Sigmoid colon resection for diverticulitis 6-7 years ago in [place]. History of exploratory laparotomy With adhesiolysis for small bowel obstruction 3-4 years ago in [place]. History of laparoscopic appendectomy History of laparoscopic cholecystectomy History of orthopedic surgery Right ankle and hand surgery. Status post laparoscopic Ludmila fundoplication <Sharee Valdez PA-C - Last Filed: 05/04/24 09:34> Family History Family History: Family History Father Heart disease Grandparent Lung cancer <Sharee Valdez PA-C - Last Filed: 05/04/24 09:34> Social History Social History: Social History Social History: Surrogate medical decision maker: Annelise Garcia, significant other. Code status: Full code. Smoking status: Never smoker Alcohol intake: never Substance use: never Substance use type: does not use Do You Feel Safe in your Home?: Yes Lack of Transportation: No Lack of Food: Never True Current Housing: I Have Housing Concerned About Future Housing: No Difficulty Paying Gas/Electric Bills: No Difficulty Paying for Meds: No Currently Unemployed: No Education: [employer]
[2024-05-02 18:34] LABS: Basophils Percent Auto 0.5 % (0.2-1.2); Eosinophils Absolute Auto 0.1 K/mm3 (0-0.3); Eosinophils Percent Auto 1.5 % (0-4.4); Hematocrit 44.2 % (42.0-52.0); Hemoglobin 14.6 g/dL (14.0-18.0); Immature Granulocyte Absolute 0.01 K/mm3 (0.00-0.031); Immature Granulocyte Percent A 0.2 % (0-0.5); Lymphocytes Absolute Auto 2.12 K/mm3 (0.9-3.2); Lymphocytes Percent Auto 36.4 % (18.3-44.2); Mean Corpuscular Hemoglobin 26.6 pg (26-34); Mean Corpuscular Volume 80.5 fl (80-100); Mean Platelet Volume 8.9 fl (7.4-10.4); Monocytes Absolute Auto 0.4 K/mm3 (0.1-0.6); Monocytes Percent Auto 7.2 % (2.6-8.5); Neutrophils Absolute Auto 3.2 K/mm3 (1.3-6.7); Neutrophils Percent Auto 54.2 % (45.5-73.1); Platelet Count Result 280 k/mm3 (150-375); Red Blood Count 5.49 M/mm3 (4.6-6.20); Red Cell Distribution Width 14.3 % (11.5-14.5); White Blood Count 5.8 K/mm3 (4.5-10.0)
[2024-05-02 18:47] LABS: Alanine Aminotransferase 25 U/L (6-50); Albumin Level 4.6 g/dL (3.5-5.1); Alkaline Phosphatase 55 U/L (38-126); Anion Gap 10 mmol/L (4-12); Aspartate Amino Transferase 31 U/L (17-59); Bilirubin,Total 0.3 mg/dL (0.2-1.3); Blood Urea Nitrogen 9 mg/dL (9-20); Calcium 9.2 mg/dL (8.4-10.2); Carbon Dioxide 29 mmol/L (22-30); Chloride 98 mmol/L (98-107); Estimated CRCL calculation 79 ml/min; Estimated Glomerular Filt Rate > 60; Glucose 101 mg/dL (65-110); Lipase 180 U/L (23-300); Sodium 137 mmol/L (137-145)
[2024-05-02 19:53] LABS: Add Urine Microscopic? NO; Appearance Urine Clear (Clear); Bilirubin Urine Negative (Negative); Blood Urine Negative (Negative); Color Urine Yellow (Yellow); Glucose Urine UA Trace mg/dL (Negative); Ketones Urine Trace mg/dL (Negative); Leukocyte Esterase Ur Negative LEU/UL (Negative); Nitrate Urine Negative (Negative); Protein Urine Negative (Negative); Specific Grav Ur 1.024 (1.001-1.035); Urobilinogen Urine 0.2 mg/dL (<2.0); pH Urine 5.5 (5.0-9.0)
[2024-05-02 20:36] VITALS: BP 130/85; PULSE 84; RESP 16; TEMP 36.1; O2SAT 98
[2024-05-02] MEDS: SODIUM CHLORIDE 0.9% IV 1,000 ML 999 ML IV CONT (23:08)
[2024-05-02 23:09] VITALS: BP 127/87; PULSE 79; RESP 16; O2SAT 100
[2024-05-02] MEDS: diphenhydrAMINE HCl INJ 50 MG/ML VIAL 25 MG IV PUSH (23:09)
[2024-05-02] MEDS: MORPHINE SULFATE (*CRX) 4 MG/ML INJ IV PUSH (23:09)
[2024-05-02] MEDS: ONDANSETRON INJ 4 MG/2 ML VIAL IV PUSH (23:09)
[2024-05-02] MEDS: METOCLOPRAMIDE HCL INJ 10 MG/2 ML VIAL IV PUSH (23:09)
[2024-05-02 23:23] LABS: Prothrombin Time 13.7 Seconds (11.1-14.7)
[2024-05-02 23:24] LABS: Partial Thromboplastin Time 26.6 Seconds (22.3-36.8)
[2024-05-02 23:44] LABS: Troponin I < 0.012 ng/mL (0.000-0.034)
[2024-05-03] MEDS: BELLADONNA ALK/PHENOB ELIX 10 ML, MAG HYDROX/ALUMINUM HYD/SIMETH 30 ML, LIDOCAINE HCL 2... PO (02:24)
[2024-05-03] MEDS: FAMOTIDINE 20 MG/2 ML VIAL IV PUSH (02:25)
[2024-05-03 03:20] VITALS: BP 133/88; PULSE 67; RESP 15; O2SAT 98
== END 2024-05-03 03:40 | disposition home or self-care (01) ==
PROVIDERS: Physician Assistant; Emergency Provider Registered Nurse; PCP Family Medicine
DX: K20.90 Esophagitis, unspecified without bleeding (principal); R10.9 Unspecified abdominal pain; F32.A Depression, unspecified; E11.9 Type 2 diabetes mellitus without complications
CPT/HCPCS: 36415; 74177; 80053; 81003; 83690; 84484; 85025; 85610; 85730; 96361; 96374; 96375; 99284; A9270; J1200; J2270; J2405; J2765; J7030; Q9967

== ENCOUNTER 2024-05-08 23:13 | Emergency (ER) | payer OTHER, SELFPAY ==
--- NOTE | ~2024-05-08 | CT_ITS ---
CT of the Abdomen and Pelvis: Indication: Abdominal pain Technique: 2.5 mm axial scans were obtained through the abdomen and pelvis following intravenous adm inistration of 100 cc of Omnipaque 350. Dose reduction technique was used on this scan by utilizing a utomated exposure control and iterative reconstruction technique. The dose-length product (DLP) was 4 96.11 mGy-cm. COMPARISON: 05/02/2024 Findings: Scans through the lung bases demonstrates stable discoid atelectasis or scarring at the [facility] lung base. There is diffuse hepatic steatosis. Cholecystectomy clips are present. The spleen, pancreas, adrenals and left kidney are within normal limits. Punctate nonobstructing right renal stone present. There a re mild atherosclerotic calcifications of the aorta. No lymphadenopathy. No bowel obstruction or bowel wall thickening. Distal large bowel anastomosis noted. There are multip le fluid-filled, mildly distended large and small bowel loops. Small fat-containing umbilical hernia present. Images through the pelvis were performed. Urinary bladder unremarkable. No pelvic mass seen. No ascit es. Impression: No definite evidence of bowel obstruction. Fluid-filled small and large bowel loops suggests diarrhea l illness. Diffuse hepatic steatosis. Punctate nonobstructing right renal stone. Reviewed, dictated and finalized at location . Impression: No definite evidence of bowel obstruction. Fluid-filled small and large bowel l oops suggests diarrheal illness. Diffuse hepatic steatosis. Punctate nonobstructing right renal stone.
[2024-05-08 23:20] VITALS: BP 130/88; PULSE 90; RESP 20; TEMP 36.7; O2SAT 99
[2024-05-09 01:04] VITALS: BP 140/87; PULSE 79; RESP 16; TEMP 36.6; O2SAT 99
--- NOTE | 2024-05-09 01:13 | PC.NURSE ---
Nursing staff attempted to obtain blood work through an IV. Upon attempting IV access in the right AC, nursing staff asked patient if he was a difficult IV stick. Patient replied Yeah, you should have asked me that first . Nursing staff educated patient that we needed blood work on the patient regardless of being a difficult stick . Patient aggressively told staff well you don't have to poke me three times . Patient was educated that nursing staff only attempted IV access one time . Patient then replied well you are digging around . Nursing staff educated patient that sometimes with IV access the IV needle may need to be adjusted. Patient responded TAKE IT OUT. Get someone else .
--- NOTE | 2024-05-09 01:18 | ED.GENADULT ---
HPI - General Adult General Chief complaint: Abdominal Pain Stated complaint: nausea, prep for colonoscopy, abd pain Time Seen by Provider: 05/09/24 01:10 History of Present Illness HPI narrative: Patient is a 54-year-old gentleman who presents emergency department with chief complaint of abdominal pain nausea. The patient reports scheduled after colon[facility] in the [facility] at [facility] the patient reports that he is doing his bowel prep and reports that he feels as though his abdomen is developing a obstruction the patient reports no colitis denies any significant output after taking a bowel prep Related Data Home Medications Medication Instructions Recorded Confirmed escitalopram oxalate 20 mg tablet 20 mg PO DAILY 07/18/21 01/24/24 modafinil 100 mg tablet 100 mg PO DAILY PRN Systemic Signs 07/18/21 01/24/24 And Symptoms trazodone 100 mg tablet 100 mg PO HS 07/18/21 01/24/24 famotidine 20 mg tablet (Pepcid AC) 20 mg PO DAILY PRN Indigestion 02/02/23 01/24/24 Allergies Allergy/AdvReac Type Severity Reaction Status Date / Time gabapentin Allergy Anxiety Verified 05/08/24 23:23 ketorolac [From Toradol] Allergy Hives Verified 05/08/24 23:23 promethazine [From Phenergan] Allergy Anxiety Verified 05/08/24 23:23 zolpidem [From Ambien] AdvReac Other Verified 05/08/24 23:23 [facility] Past Medical History Medical History Depression Diverticulitis History of small bowel obstruction Posttraumatic stress disorder Type 2 diabetes mellitus Surgical History Surgical History History of colon resection Sigmoid colon resection for diverticulitis 6-7 years ago in [place]. History of exploratory laparotomy With adhesiolysis for small bowel obstruction 3-4 years ago in [place]. History of laparoscopic appendectomy History of laparoscopic cholecystectomy History of orthopedic surgery Right ankle and hand surgery. Status post laparoscopic Ludmila fundoplication Family History Family History Father Heart disease Grandparent Lung cancer Social History Social History Social History: Surrogate medical decision maker: Annelise Garcia, significant other. Code status: Full code. Smoking status: Never smoker Alcohol intake: never Substance use: never Substance use type: does not use Do You Feel Safe in your Home?: Yes Lack of Transportation: No Lack of Food: Never True Current Housing: I Have Housing Concerned About Future Housing: No Difficulty Paying Gas/Electric Bills: No Difficulty Paying for Meds: No Currently Unemployed: No Education: High School Diploma/GED Difficulty w/ Childcare or Family Care: No Additional living arrangements comments: Lives in [place] with significant other. He has 1 son. 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 Spiritual care concerns: No Course Vital Signs Vital signs: Vital Signs Temperature 36.7 C 05/08/24 23:20 Pulse Rate 90 05/08/24 23:20 Respiratory Rate 20 05/08/24 23:20 Blood Pressure 130/88 05/08/24 23:20 Pulse Oximetry 99 05/08/24 23:20 Oxygen Delivery Room Air 05/08/24 23:20 Temperature 36.6 C 05/09/24 01:04 Pulse Rate 79 05/09/24 01:04 Respiratory Rate 16 05/09/24 01:04 Blood Pressure 140/87 05/09/24 01:04 Pulse Oximetry 99 05/09/24 01:04 Oxygen Delivery Room Air 05/08/24 23:20 Medical Decision Making MDM Narrative Medical decision making narrative: CT scan showed multiple fluid-filled loops of bowel no evidence of small-bowel obstruction. 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
--- NOTE | 2024-05-09 01:29 | PC.NURSE ---
Patient refused straight catheter for urine sample
[2024-05-09 01:53] LABS: Basophils Percent Auto 0.6 % (0.2-1.2); Eosinophils Absolute Auto 0.1 K/mm3 (0-0.3); Eosinophils Percent Auto 1.4 % (0-4.4); Hematocrit 45.4 % (42.0-52.0); Hemoglobin 14.9 g/dL (14.0-18.0); Immature Granulocyte Absolute 0.01 K/mm3 (0.00-0.031); Immature Granulocyte Percent A 0.2 % (0-0.5); Lymphocytes Absolute Auto 2.05 K/mm3 (0.9-3.2); Lymphocytes Percent Auto 32.6 % (18.3-44.2); Mean Corpuscular HGB Conc 32.8 g/dl (32-36); Mean Corpuscular Hemoglobin 26.6 pg (26-34); Mean Corpuscular Volume 80.9 fl (80-100); Mean Platelet Volume 9.1 fl (7.4-10.4); Monocytes Absolute Auto 0.5 K/mm3 (0.1-0.6); Monocytes Percent Auto 7.2 % (2.6-8.5); Neutrophils Absolute Auto 3.7 K/mm3 (1.3-6.7); Platelet Count Result 262 k/mm3 (150-375); Red Blood Count 5.61 M/mm3 (4.6-6.20); Red Cell Distribution Width 14.4 % (11.5-14.5); White Blood Count 6.3 K/mm3 (4.5-10.0)
[2024-05-09 02:04] LABS: Alanine Aminotransferase 27 U/L (6-50); Albumin Level 4.7 g/dL (3.5-5.1); Alkaline Phosphatase 65 U/L (38-126); Anion Gap 11 mmol/L (4-12); Aspartate Amino Transferase 30 U/L (17-59); Bilirubin,Total 0.7 mg/dL (0.2-1.3); Blood Urea Nitrogen 7 mg/dL (9-20); Calcium 9.3 mg/dL (8.4-10.2); Carbon Dioxide 30 mmol/L (22-30); Chloride 96 mmol/L (98-107); Estimated CRCL calculation 66 ml/min; Estimated Glomerular Filt Rate > 60; Glucose 115 mg/dL (65-110); Lipase 129 U/L (23-300); Potassium 3.7 mmol/L (3.4-5.0); Sodium 137 mmol/L (137-145)
[2024-05-09] MEDS: ONDANSETRON INJ 4 MG/2 ML VIAL IV PUSH (02:30)
[2024-05-09] MEDS: MORPHINE SULFATE (*CRX) 4 MG/ML INJ IV PUSH (02:37)
[2024-05-09] MEDS: SODIUM CHLORIDE 0.9% IV 1,000 ML 999 ML IV CONT (02:37)
[2024-05-09 03:33] VITALS: BP 138/91; PULSE 72; RESP 16; TEMP 36.6; O2SAT 97
== END 2024-05-09 03:38 | disposition home or self-care (01) ==
PROVIDERS: Emergency Provider Emergency Medicine; PCP Family Medicine
DX: R10.9 Unspecified abdominal pain (principal); E11.9 Type 2 diabetes mellitus without complications; F32.A Depression, unspecified; F43.10 Post-traumatic stress disorder, unspecified; Z90.49 Acquired absence of other specified parts of digestive tract; Z79.899 Other long term (current) drug therapy
CPT/HCPCS: 36415; 74177; 80053; 83690; 85025; 96361; 96374; 96375; 99284; J2270; J2405; J7030; Q9967

== ENCOUNTER 2024-08-27 00:28 | Emergency (ER) | payer OTHER, SELFPAY ==
--- NOTE | ~2024-08-27 | CT_ITS ---
EXAMINATION: CT abdomen pelvis w con DATE: 08/27/2024 10:19 INDICATION: Abdominal pain TECHNIQUE: Computed tomography (CT) of the abdomen and pelvis was performed with 100 CC Omnipaque 350 intravenous contrast. Automated exposure control and iterative reconstruction technique were employe d. Exam dose: 869.09 mGy-cm total exam DLP. COMPARISON: 05/09/2024 CT abdomen pelvis FINDINGS: The lung bases are clear. Normal heart size. No pericardial or pleural effusion. Status post cholecystectomy. No hepatic, splenic, pancreatic, adrenal or renal space-occupying mass l esion is detected. No urinary tract calculus or hydroureteronephrosis. Normal caliber of the abdominal aorta. No intraperitoneal or retroperitoneal or pelvic mass lesion or adenopathy or ascites. No bowel obstruction or intraperitoneal free air. Probable appendectomy. Mild atherosclerotic calcification but normal caliber of the abdominal aorta. No intraperitoneal or r etroperitoneal or pelvic mass lesion or adenopathy or ascites. The urinary bladder and prostate gland and seminal vesicles are unremarkable. Probable left inguinal herniorrhaphy. Included skeletal structures are unremarkable. No suspicious osteolytic or osteoblastic lesions are n oted. IMPRESSION: Probable appendectomy and left inguinal herniorrhaphy, recommend correlation with surgic al history Status post cholecystectomy No bowel obstruction or free air Reviewed, dictated and finalized at [facility]. Reviewed, dictated and finalized at [facility] [employer] IMPRESSION: Probable appendectomy and left inguinal herniorrhaphy, recommend c orrelation with surgical history Status post cholecystectomy No bowel obstruction or free air
[2024-08-27 00:35] VITALS: BP 136/86; PULSE 85; RESP 18; TEMP 36.7; O2SAT 97
[2024-08-27 06:35] VITALS: BP 126/79; PULSE 80; RESP 16; O2SAT 100
[2024-08-27 08:58] LABS: Basophils Percent Auto 0.5 % (0.2-1.2); Eosinophils Absolute Auto 0.1 K/mm3 (0-0.3); Eosinophils Percent Auto 1.8 % (0-4.4); Hematocrit 44.9 % (42.0-52.0); Hemoglobin 14.8 g/dL (14.0-18.0); Immature Granulocyte Absolute 0.01 K/mm3 (0.00-0.031); Immature Granulocyte Percent A 0.2 % (0-0.5); Lymphocytes Absolute Auto 1.85 K/mm3 (0.9-3.2); Mean Corpuscular Volume 81.9 fl (80-100); Monocytes Absolute Auto 0.4 K/mm3 (0.1-0.6); Monocytes Percent Auto 7.1 % (2.6-8.5); Neutrophils Absolute Auto 3.2 K/mm3 (1.3-6.7); Neutrophils Percent Auto 57.4 % (45.5-73.1); Platelet Count Result 227 k/mm3 (150-375); Red Blood Count 5.48 M/mm3 (4.6-6.20); Red Cell Distribution Width 13.6 % (11.5-14.5); White Blood Count 5.6 K/mm3 (4.5-10.0)
[2024-08-27 09:13] LABS: Alanine Aminotransferase 28 U/L (6-50); Albumin Level 4.3 g/dL (3.5-5.1); Alkaline Phosphatase 56 U/L (38-126); Anion Gap 4 mmol/L (4-12); Aspartate Amino Transferase 28 U/L (17-59); Bilirubin,Total 0.5 mg/dL (0.2-1.3); Blood Urea Nitrogen 15 mg/dL (9-20); Calcium 8.7 mg/dL (8.4-10.2); Carbon Dioxide 26 mmol/L (22-30); Chloride 104 mmol/L (98-107); Estimated CRCL calculation 79 ml/min; Estimated Glomerular Filt Rate > 60; Glucose 156 mg/dL (65-110); Lipase 159 U/L (23-300); Potassium 4.1 mmol/L (3.4-5.0); Sodium 134 mmol/L (137-145)
--- NOTE | 2024-08-27 09:40 | ED.ABDPAIN ---
HPI - Abdominal Pain General Chief Complaint: Abdominal Pain Stated Complaint: abd pain Time Seen by Provider: 08/27/24 09:39 Source: patient Mode of arrival: ambulatory Limitations: no limitations History of Present Illness HPI narrative: 54 years old white male drove himself to the emergency room complaining of left-sided abdominal pain started 5 days ago, gradually getting worse associated with nausea and dry heaving. Last bowel movement 5 days ago. He denies any fever or chills History of diabetes, hypertension, hyperlipidemia cholecystectomy, appendectomy, colon resection secondary to diverticulitis recurrence small bowel obstruction Related Data Home Medications ?Medication ?Instructions ?Recorded ?Confirmed ?Last Taken ?Type escitalopram oxalate 20 mg tablet 20 mg PO DAILY 07/18/21 08/27/24 08/25/24 History modafinil 100 mg tablet 100 mg PO DAILY PRN Systemic Signs 07/18/21 08/27/24 08/18/24 History And Symptoms trazodone 100 mg tablet 100 mg PO HS 07/18/21 08/27/24 08/25/24 History famotidine 20 mg tablet (Pepcid AC) 20 mg PO DAILY PRN Indigestion 02/02/23 08/27/24 Unknown History semaglutide 1 mg/dose (4 mg/3 mL) 1 mg subcut WEEKLY 08/27/24 08/27/24 08/21/24 History subcutaneous pen injector (Ozempic) Allergies Allergy/AdvReac Type Severity Reaction Status Date / Time gabapentin Allergy Anxiety Verified 08/27/24 08:31 ketorolac (From Toradol) Allergy Hives Verified 08/27/24 08:31 promethazine (From Phenergan) Allergy Anxiety Verified 08/27/24 08:31 zolpidem (From Ambien) AdvReac Other Verified 08/27/24 08:31 Review of Systems Review of Systems: All systems reviewed & are unremarkable except as noted in HPI and below PMFSH Past Medical History Medical History Posttraumatic stress disorder Type 2 diabetes mellitus History of small bowel obstruction Depression Diverticulitis Surgical History Surgical History History of orthopedic surgery Right ankle and hand surgery. History of laparoscopic appendectomy Status post laparoscopic Ludmila fundoplication History of laparoscopic cholecystectomy History of exploratory laparotomy With adhesiolysis for small bowel obstruction 3-4 years ago in [place]. History of colon resection Sigmoid colon resection for diverticulitis 6-7 years ago in [place]. Family History Family History Father Heart disease Grandparent Lung cancer Social History Social History Social History: Surrogate medical decision maker: Annelise Garcia, significant other. Code status: Full code. Smoking status: Never smoker Alcohol intake: never Substance use: never Substance use type: does not use Do You Feel Safe in your Home?: Yes Lack of Transportation: No Lack of Food: Never True Current Housing: I Have Housing Concerned About Future Housing: No Difficulty Paying Gas/Electric Bills: No Difficulty Paying for Meds: No Currently Unemployed: No Education: High School Diploma/GED Difficulty w/ Childcare or Family Care: No Additional living arrangements comments: Lives in [place] with significant other. He has 1 son. Additional occupation/education comments: Served in the [employer]. 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 Spiritual care concerns: No Exam Narrative: General appearance: Well-developed, well-nourished Skin: Normal color Head: Normocephalic, nontraumatic Eyes: Clear conjunctiva ENT: Oropharynx normal, ears normal, nose normal Neck: Supple, nontender Chest and respiratory: Airway patent, no respiratory distress, no accessory muscle use Heart: Regular rate/rhythm Abdomen: Soft, moderate diffuse tenderness, no organomegaly, quiet bowel sounds Musculoskeletal: Normal range of motion, nontender back Neurologic: Alert and oriented ?3, COMPRESSOR ASSEMBLER is normal as tested, no gross motor deficit Course Vital Signs Vital signs: Vital Signs Temperature 36.7 C 08/27/24 00:35 Pulse Rate 85 08/27/24 00:35 Respiratory Rate 18 08/27/24 00:35 Blood Pressure 136/86 08/27/24 00:35 Pulse Oximetry 97 08/27/24 00:35 Temperature 36.6 C 08/27/24 11:20 Pulse Rate 76 08/27/24 11:20 Respiratory Rate 16 08/27/24 11:20 Blood Pressure 142/88 H 08/27/24 11:20 Pulse Oximetry 98 08/27/24 11:20 MDM - Abdominal Pain MDM Narrative Medical decision making narrative: Patient presents with abdominal pain Vital signs are stable Physical examination consistent with diffuse abdominal tenderness Differential diagnosis include small-bowel obstruction, diverticulitis, dehydration, electrolyte imbalance, constipation Blood workup today includes CBC, CMP, lipase showed no significant abnormality Urinalysis showed no significant abnormality CT abdomen and pelvis with IV contrast showed no significant abnormality patient had history of appendectomy, cholecystectomy and colon resection secondary to diverticulitis Discharge with abdominal pain of unknown etiology Tylenol, Zofran as needed, and Bentyl the pt was discharged to home.the pt,s condition upon discharge was fair,education was provided to the pt in reference to the final impression,discharge study results,treatment,prognosis and need for follow up . Differential Diagnosis Differential diagnosis: Likely abdominal pain, constipation, diverticulitis and pancreatitis Medical Records Attestation: I reviewed the patient's medical records. Lab Data Attestation: I reviewed the patient's lab results. 08/27/24 08:50 08/27/24 08:50 Labs: Lab Results 08/27/24 08/27/24 Range/Units 08:50 11:17 WBC 5.6 (4.5-10.0) K/mm3 RBC 5.48 (4.6-6.20) M/mm3 Hgb 14.8 (14.0-18.0) g/dL Hct 44.9 (42.0-52.0) % MCV 81.9 (80-100) fl MCH 27.0 (26-34) pg MCHC 33.0 (32-36) g/dl RDW 13.6 (11.5-14.5) % Plt Count 227 (150-375) k/mm3 MPV 9.0 (7.4-10.4) fl Immature Gran % (Auto) 0.2 (0-0.5) % Neut % (Auto) 57.4 (45.5-73.1) % Lymph % (Auto) 33.0 (18.3-44.2) % Casey % (Auto) 7.1 (2.6-8.5) % Eos % (Auto) 1.8 (0-4.4) % Baso % (Auto) 0.5 (0.2-1.2) % Lymph # (Auto) 1.85 (0.9-3.2) K/mm3 Casey # (Auto) 0.4 (0.1-0.6) K/mm3 Eos # (Auto) 0.1 (0-0.3) K/mm3 Baso # (Auto) 0.0 (0.0-0.1) K/mm3 Abs Immat Gran (auto) 0.01 (0.00-0.031) K/mm3 Absolute Neuts (auto) 3.2 (1.3-6.7) K/mm3 Absolute Nucleated RBC 0.000 (0.0-0.012) K/mm3 Nucleated RBC % 0.0 (0.0-0.2) % Sodium 134 L (137-145) mmol/L Potassium 4.1 (3.4-5.0) mmol/L Chloride 104 (98-107) mmol/L Carbon Dioxide 26 (22-30) mmol/L Anion Gap 4 (4-12) mmol/L BUN 15 D (9-20) mg/dL Creatinine 1.00 (0.7-1.3) mg/dL Estim Creat Clear Calc 79 ml/min Estimated GFR > 60 (59 - ) Glucose 156 H (65-110) mg/dL Calcium 8.7 (8.4-10.2) mg/dL Total Bilirubin 0.5 (0.2-1.3) mg/dL AST 28 (17-59) U/L ALT 28 (6-50) U/L Alkaline Phosphatase 56 (38-126) U/L Total Protein 7.0 (6.3-8.2) g/dL Albumin 4.3 (3.5-5.1) g/dL Lipase 159 (23-300) U/L Urine Color Yellow (Yellow) Urine Appearance Clear (Clear) Urine pH 6.0 (5.0-9.0) Ur Specific [place] 1.042 H (1.001-1.035) Urine Protein Negative (Negative) mg/dL Urine Glucose (UA) Negative (Negative) mg/dL Urine Ketones Negative (Negative) mg/dL Ur Blood (Man) Negative (Negative) Urine Nitrate Negative (Negative) Urine Bilirubin Negative (Negative) Urine Urobilinogen 0.2 (<2.0) mg/dL Leukocyte Esterase Rfl Negative (Negative) DESTINEY/UL Imaging Data Radiologist's impression: ITS Impressions Abdomen/Pelvis CT 01/04/25 10:50 IMPRESSION: Probable appendectomy and left inguinal herniorrhaphy, recommend correlation with surgical history Status post cholecystectomy No bowel obstruction or free air Critical Care Time Critical Care Time Critical Care Time: No Discharge Plan Discharge Clinical Impression: Abdominal pain Patient Disposition: Home, Self-Care Condition: Improved Instructions: Abdominal Pain (ED) Additional Instructions: Return if symptoms are worsening , call your family physician for appointment, take Tylenol as as needed for aches and pain, continue home medications. Patient Language: Wolof Prescriptions: New ondansetron 4 mg tablet,disintegrating 4 mg PO Q4H 0 Days Qty: 10 0RF Rx Instructions: give 1st dose 30min before emetogenic chemo dicyclomine 20 mg tablet 20 mg PO QID Qty: 20 0RF No Action trazodone 100 mg tablet 100 mg PO HS modafinil 100 mg tablet 100 mg PO DAILY PRN (Reason: Systemic Signs And Symptoms) Rx Instructions: Takes for ADD escitalopram oxalate 20 mg tablet 20 mg PO DAILY Ozempic 1 mg/dose (4 mg/3 mL) pen injector 1 mg subcut WEEKLY famotidine [Pepcid AC] 20 mg tablet 20 mg PO DAILY PRN (Reason: Indigestion) sennosides-docusate sodium [Senokot-S] 8.6-50 mg Tablet 1 tab PO Q12HR PRN (Reason: constipation) Qty: 60 0RF docusate sodium 100 mg Capsule 100 mg PO Q12HR PRN (Reason: constipation) Qty: 60 0RF ondansetron 4 mg tablet,disintegrating 4 mg PO Q6H PRN (Reason: nausea and vomiting) Qty: 30 0RF ondansetron 4 mg tablet,disintegrating 4 mg PO Q8H Qty: 14 0RF ondansetron 4 mg tablet,disintegrating 4 mg PO Q6H PRN (Reason: nausea and vomiting) Qty: 7 0RF docusate sodium 100 mg capsule 100 mg PO BID Qty: 60 0RF polyethylene glycol 3350 17 gram/dose powder 17 g PO DAILY Qty: 238 0RF ondansetron 4 mg tablet,disintegrating 4 mg PO Q8H Qty: 14 0RF omeprazole magnesium [Prilosec OTC] 20 mg tablet,delayed release (DR/EC) 20 mg PO DAILY Qty: 10 0RF Follow-up/Referrals: Juan,Nathan Ramos MD [Primary Care Provider] -
[2024-08-27] MEDS: fentaNYL CITRATE INJ (*CRX) 100 MCG/2 ML VIAL 50 MCG IV PUSH (09:56)
[2024-08-27] MEDS: SODIUM CHLORIDE 0.9% IV 1,000 ML 999 ML IV CONT (09:56)
[2024-08-27] MEDS: ONDANSETRON INJ 4 MG/2 ML VIAL IV PUSH (09:57)
[2024-08-27 11:20] VITALS: BP 142/88; PULSE 76; RESP 16; TEMP 36.6; O2SAT 98
[2024-08-27 11:27] LABS: Add Urine Microscopic? NO; Appearance Urine Clear (Clear); Bilirubin Urine Negative (Negative); Blood Urine Negative (Negative); Color Urine Yellow (Yellow); Glucose Urine UA Negative (Negative); Ketones Urine Negative (Negative); Leukocyte Esterase Ur Negative LEU/UL (Negative); Nitrate Urine Negative (Negative); Protein Urine Negative (Negative); Specific Grav Ur 1.042 (1.001-1.035); Urobilinogen Urine 0.2 mg/dL (<2.0)
--- OUTSIDE RECORDS SUMMARY | 2024-09-03 00:58 | XMS_ITS | Encounter Summary ---
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 Took 2 tabs of imodium today at 0930. At this time LLQ pain a constant sharp cramping a 8 , mild nausea, no emesis. GI Bleeding Encounter Details Date Type Department Care Team (Late st Contact Info) Description 01/10/2015 1:48 PM CDT - 01/10/2015 8:50 PM CDT Emergency ER at [address] [id number] Alberto Mayen MD [address] [place] [address] [place]ER[place] [address] Abdominal pain; Partial small bowel obstruction (HCC) Discharge Disposition: Inpatient Hospital Social History Tobacco Use Types Packs/Day Years Used Date Smoking Tobacco: Never Smokeless Tobacco: Current Snuff Alcohol Use Standard Drinks/Week Comments Yes 0 (1 standard drink = 0.6 oz pur e alcohol) monthly social Sex and Gender Information Value Date Recorded Sex Assigned at Not on file Gender Identity Not on file Sexual Orientation Not on file documented as of this encounter Last Filed Vital Signs Vital Sign Reading Time Taken Comments Blood Pressure 142/91 01/10/2015 8:32 PM CDT Pulse 90 01/10/2015 1:45 PM CDT Temperature 37 ??C (98.6 ??F) 01/10/2015 1:45 PM CDT Respiratory Rate 16 01/10/2015 1:45 PM CDT Oxygen Saturation 94% 01/10/2015 8:32 PM CDT Inhaled Oxygen Concentration - - Weight 95.3 kg (210 lb) 01/10/2015 1:45 PM CDT Height 180.3 cm (5' 11 ) 01/10/2015 1:45 PM CDT Body Mass Index 29.29 01/10/2015 1:45 PM CDT documented in this encounter Medications at Time of Discharge Medication Sig Dispensed Refills Start Date End Date acetaminophen (TYLENOL) 650 MG suppository Insert 1 Suppository into the rectum 4 times daily as needed. 01/12/2015 hydrOXYzine pamoate (VISTARIL) 25 MG capsule Take 25 mg by mouth 3 times daily. lisinopril (PRINIVIL; ZESTRIL) 10 MG tablet Take 10 mg by mouth once daily. metFORMIN (GLUCOPHAGE) 500 MG tablet Take 500 mg by mouth 2 times daily with morning and evening meal. clonazePAM (KLONOPIN) 0.5 MG tablet Take 0.5 mg by mouth at bedtime. 01/11/2015 Loperamide (IMODIUM A-D) 2 MG TABS tablet Take 4 mg by mouth 3 times daily as needed for Diarrhea. 01/12/2015 documented as of this encounter ED Notes * Clesa Grey RN - 01/10/2015 8:26 PM CDT Medication list accidentally deleted. Reviewed medications again with patient. Patient is not 100% certain on doses. * Celsa Grey RN - 01/10/2015 8:21 PM CDT Patient lying flat on stretcher. States he has had some relief of pain with the dilaudid. Rates pain 4/10 to LLQ of abd. Family at bedside. Awaiting transfer vehicle. * Celsa Grey RN - 01/10/2015 7:59 PM CDT Error wrong chart for last note * Celsa Grey RN - 01/10/2015 7:43 PM CDT Report called to nurse at [facility] by nurse Tafoya. [facility] called for transfer. * Magaly Steele RN - 01/10/2015 7:37 PM CDT Report called to Anna RAMON at [facility] * Magaly Steele RN - 01/10/2015 7:22 PM CDT Dilaudid given for C/O LLQ pain a 6 , VSs * Magaly Steele RN - 01/10/2015 4:51 PM CDT Dilaudid given for co LLQ abd pain a 6 , denies nausea, VS * Magaly Steele RN - 01/10/2015 4:30 PM CDT Resting quietly in bed, states LLQ abd pain a 6 , denies nausea, will notify ODALIS Sue * Magaly Steele RN - 01/10/2015 3:51 PM CDT To radiology via cart for ct scan abd/pelvis * Magaly Steele RN - 01/10/2015 3:50 PM CDT Back from radiology, yi well * Magaly Steele RN - 01/10/2015 3:09 PM CDT Dilaudid given for C/O LLQ pain a 6 , denies nausea, VSS * Magaly Steele RN - 01/10/2015 2:30 PM CDT Dilaudid given for C/O LLQ pain a 6 , Zofran and Protonix given for C/O moderate nausea, no emesis, VS'S * Magaly Steele RN - 01/10/2015 2:[address] contrast started * Magaly Steele RN - 01/10/2015 1:[address] Mayen at bedside * Alberto Mayen MD - 01/10/2015 1:53 PM CDT Provider contact with the patient: 01/10/2015 13:53 Erich Allen [id number] [facility] EMERGENCY DEPT History Chief Complaint Patient presents with ??? Pain Abdominal States he has had a colon resection 3 months ago for diverticulitis, this morning apporx 0800 LLQ pain and watery diarrhea with bright red blood, three stools. Took 2 tabs of imodium today at 0930. At this time LLQ pain a constant sharp cramping a 8 , mild nausea, no emesis. ??? 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 The pain and bleeding started around 08:00 this morning. The pain is mostly cramping but sometimes sharp. The pain is 8-9 out of 10 severity. Sitting makes the pain worse. He has passed bright red blood with stool three times today. He has a history of diverticulitis and had a partial colon resection two or three months ago at the [facility] in [place], [place]. Past Medical History Diagnosis Date ??? PTSD (post-traumatic stress disorder) ??? Diverticulitis of colon ??? DM (diabetes mellitus) ??? Depressive disorder, not elsewhere classified Past Surgical History Procedure Laterality Date ??? Colectomy 09/2014 V/A [facility] [place] [facility] ??? Appendectomy ??? Cholecystectomy ??? Endoscopy, colon, diagnostic No family history on file. History Social History ??? Marital Status: Spouse Name: N/A Number of Children: N/A ??? Years of Education: N/A Occupational History ??? Not on file. Social History Main Topics ??? Smoking status: Never Smoker ??? Smokeless tobacco: Current User Types: Snuff ??? Alcohol Use: Yes Comment: monthly social ??? Drug Use: No ??? Sexual Activity: Not on file Other Topics Concern ??? Not on file Social History Narrative ??? No narrative on file Review of Systems Review of Systems Constitutional: Positive for chills. Gastrointestinal: Positive for nausea, abdominal pain and blood in stool. Negative for vomiting. All other systems reviewed and are negative. Physical Exam BP 151/92 mmHg Pulse 90 Temp(Src) 98.6 ??F Resp 16 Ht 1.803 m (5' 11 ) Wt 95.255 kg (210 lb) BMI 29.30 kg/m2 SpO2 96% Physical Exam Constitutional: He is oriented to person, place, and time. Overweight adult male who appears to be in mild distress from his abdominal pain. HENT: Head: Normocephalic and atraumatic. Mouth/Throat: Oropharynx is clear and moist. Eyes: Conjunctivae and EOM are normal. Pupils are equal, round, and reactive to light. Neck: Normal range of motion. Neck supple. No thyromegaly present. Cardiovascular: Normal rate, regular rhythm and normal heart sounds. Pulmonary/Chest: Effort normal and breath sounds normal. No respiratory distress. Abdominal: Soft. Normal appearance and bowel sounds are normal. He exhibits no mass. There is no hepatosplenomegaly. There is tenderness (greatest at the left lower quadrant) in the suprapubic area, left upper quadrant and left lower quadrant. There is no rebound, no guarding and no CVA tenderness.No hernia. Genitourinary: Rectal exam shows no external hemorrhoid, no mass, no tenderness and anal tone normal. Stool brown. No gross blood seen on rectal exam. Musculoskeletal: Normal range of motion. He exhibits no edema or tenderness. Lymphadenopathy: He has no cervical adenopathy. Neurological: He is alert and oriented to person, place, and time. Skin: Skin is warm and dry. No rash noted. Nursing note and vitals reviewed. Medications Current Outpatient Prescriptions Medication Sig Dispense Refill ??? hydrOXYzine pamoate (VISTARIL) 25 MG capsule Take 25 mg by mouth 3 times daily. ??? lisinopril (PRINIVIL; ZESTRIL) 10 MG tablet Take 10 mg by mouth once daily. ??? metFORMIN (GLUCOPHAGE) 500 MG tablet Take 500 mg by mouth 2 times daily with morning and evening meal. ??? clonazePAM (KLONOPIN) 0.5 MG tablet Take 0.5 mg by mouth at bedtime. ??? Loperamide (IMODIUM A-D) 2 MG TABS tablet Take 4 mg by mouth 3 times daily as needed for Diarrhea. Procedures Procedures ECG Interpretation ECG Interpretation Lab/SPO2 Interpretation Results for orders placed during the hospital encounter of 01/10/15 CBC W AUTO DIFFERENTIAL Result Value Ref Range WBC 5.3 4.4-10.7 x10^9/L WBC Corrected RBC 5.80 (*) 3.80-5.40 x10^12/L Hgb 14.2 12.0-17.6 gm/dL HCT 42.3 35.2-51.7 % MCV 72.9 (*) 80.7-98.3 fl MCH 24.5 (*) 26.7-34.0 pg MCHC 33.6 30.8-35.9 gm/dL Plt Ct 255 153-416 x10^9/L RDW-CV 14.4 12.1-14.9 % MPV 8.7 (*) 9.4-12.9 fl Neutro 46.7 44.0-73.0 % Lymph 45.3 (*) 20.0-43.0 % Wilson 8.0 5.0-13.0 % Neutro Abs 2.5 2.01-7.14 x10^9/L Lymph Abs 2.4 1.07-3.94 x10^9/L Wilson Abs 0.4 0.26-1.07 x10^9/L BMP W CA+ NOTIFICATION Result Value Ref Range COMMENT Notification Label HEPATIC FUNCTION PANEL Result Value Ref Range Alk Phos 94 38-126 U/L ALT/SGPT 66 12-78 U/L AST/SGOT 30 5-40 U/L Protein Total 7.8 6.4-8.2 gm/dL Albumin 4.2 3.4-5.0 gm/dL Bili Total 0.4 0.2-1.0 mg/dL Bili Conj Direct <0.1 0-0.3 mg/dL LIPASE BLOOD Result Value Ref Range Lipase 146 73-393 U/L URINALYSIS ROUTINE W/REFLEX TO CULTURE Result Value Ref Range Color UA Yellow Straw, Light Yellow, Yellow, Dark Yellow Clarity UA Clear Specific Keymar UA 1.020 1.005-1.030 pH UA 6.0 5.0-8.0 pH Protein UA Negative Negative Blood UA Negative Negative Leukocyte UA Negative Negative Nitrite UA Negative Negative Glucose UA Negative Negative Ketone UA Negative Negative Bili UA Negative Negative Urobilinogen UA 0.2 0.1-1.0 EU/dL Reflex Status Culture not indicated OCCULT BLOOD FECES - POINT OF CARE (IP) Result Value Ref Range Occult Bld negative Negative QC Verified Yes Yes Card Exp Date OK yes Yes ISTAT CHEM8+ PANEL YAN Result Value Ref Range Glucose Venous 154 (*) 74-106 mg/dL Sodium Venous 138 136-145 mmol/L Potassium Venous 3.8 3.5-5.1 mmol/L Chloride Venous 99 98-107 mmol/L TCO2 Venous 25 23-27 mmol/L Anion Gap Venous 18 10-20 mmol/L BUN Venous 9 9-20 mg/dL Creatinine Venous 1.0 0.5-1.3 mg/dL Calcium Ionized Venous 1.17 1.12-1.32 mmol/L Sample ISTAT VENOUS CPB ISTAT No CT ABDOMEN AND PELVIS WITH IV CONTRAST Final Result CT abdomen and pelvis: HISTORY: Left-sided pain and cramping with watery diarrhea containing bright red blood, colon surgery 3 months ago for diverticulitis. Prior cholecystectomy, appendectomy, partial colectomy. CT examination of the abdomen and pelvis was performed on 01/10/2015 following oral and IV contrast (Omnipaque, 125 mL). Coronal reconstructions were also obtained. No relevant prior study is available. There is minimal dependent atelectasis with the visualized lung bases otherwise essentially clear. No recent fracture is identified. Surgical clips related to a cholecystectomy are present. There is moderate diffuse fatty infiltration involving the liver. Otherwise, the liver, spleen, pancreas, adrenal glands and kidneys are unremarkable. There is no obstructing urinary stone or hydronephrosis. No aneurysm or dissection is identified. There is mild prominence of several of the mid and proximal small bowel loops to a point of relatively rapid transition to normal caliber small bowel loops in the midportion of the abdomen. The appearance suggests a mild partial small bowel obstruction which is suspected to be related to adhesions since no focal mass is identified. Operative changes are seen in the right lower quadrant with mild scattered colonic diverticulosis noted elsewhere. A small fat-containing umbilical hernia is also noted. The remainder of the bowel loops are unremarkable. The appendix is absent corresponding to the reported prior appendectomy. No focal soft tissue mass or enlarged adenopathy is seen in the abdomen. The urinary bladder is unremarkable. The prostate gland is within normal limits. No focal soft tissue mass or enlarged adenopathy is seen in the pelvis. IMPRESSION Mild prominence of several of the mid and proximal small bowel loops to a point of relatively rapid transition to normal caliber small bowel loops in the midportion of the abdomen. The appearance suggests a mild partial small bowel obstruction which is suspected to be related to adhesions since no focal mass is identified. Operative changes are seen in the right lower quadrant with mild scattered colonic diverticulosis noted elsewhere. A small fat-containing umbilical hernia is also noted. Cholecystectomy and appendectomy. Moderate diffuse fatty infiltration involving the liver. Minimal atelectasis of the lung bases. No other abnormality identified. Progress Notes ED Course Medical Decision Making I have reviewed the: Nursing Notes and Vitals. I have interpreted the following results: Labs and CT Scans. Orders Placed This Encounter ??? CT ABDOMEN AND PELVIS WITH IV CONTRAST ??? CBC W AUTO DIFFERENTIAL ??? BMP w CA+ IONIZED iSTAT POC in [facility] ??? HEPATIC FUNCTION PANEL ??? LIPASE BLOOD ??? URINALYSIS ROUTINE W/REFLEX TO CULTURE ??? OCCULT BLOOD FECES - POINT OF CARE (IP) ??? 0.9% NaCl infusion ??? HYDROmorphone PF (DILAUDID) injection 0.5 mg ??? ondansetron (ZOFRAN) injection 4 mg ??? pantoprazole (PROTONIX) injection 40 mg ??? iohexol (OMNIPAQUE 350) contrast ??? iohexol (OMNIPAQUE 350) contrast 0-100 mL ??? HYDROmorphone PF (DILAUDID) injection 0.5 mg ??? HYDROmorphone PF (DILAUDID) injection 1 mg ??? HYDROmorphone PF (DILAUDID) 1 mg/ml injection ADS Med ??? HYDROmorphone PF (DILAUDID) injection 1 mg ??? HYDROmorphone PF (DILAUDID) 1 mg/ml injection ADS Med Initial Plan: * CBC, BMP, LFT, lipase, UA * CT abdomen and pelvis with IV and oral contrast * IV NS 125 mL/hr * Dilaudid 0.5 mg IV * Zofran 4 mg IV * Protonix 40 mg IV 15:00: Erich says his pain is down to 5 out of 10 severity. He would like something more for the pain. * Repeat Dilaudid 0.5 mg IV. 17:00: CT results reviewed. Access Line called with request to speak to the surgeon commercial parts professional for [facility]. 17:20: Case discussed with Dr. Shankar (surgeon). Admit to hospitalist and he will consult. Keep NPO. NOTE: I offered Erich the option of being transferred to the [facility] in [place], but he would prefer admission to a [facility] facility in [facility]. 18:10: Case discussed with Virginie Weathers APRN, working with Dr. Perrin (hospitalist) at [facility]. She will accept transfer. Clinical Impression Final diagnoses: Abdominal pain Partial small bowel obstruction * Magaly Steele RN - 01/10/2015 1:46 PM CDT States he has had a colon resection 3 months ago for diverticulitis, this morning apporx 0800 LLQ pain and watery diarrhea with bright red blood, three stools. Took 2 tabs of imodium today at 0930. At this time LLQ pain a constant sharp cramping a 8 , mild nausea, no emesis. documented in this encounter Plan of Treatment Not on file documented as of this encounter Procedures Procedure Name Priority Date/Time Associated Diagnosis Comments CT ABDOMEN PELVIS W CONTRAST STAT 01/10/2015 4:08 PM CDT Abdominal pain URINALYSIS REFLEX MICROSCOPIC REFLEX CULTURE STAT 01/10/2015 3:22 PM CDT OCCULT BLOOD FECES - POINT OF CARE (IP) Routine 01/10/2015 3:03 PM CDT ISTAT CHEM8+ PANEL YAN Routine 01/10/2015 2:19 PM CDT HEPATIC FUNCTION PANEL STAT 01/10/2015 2:19 PM CDT LIPASE BLOOD STAT 01/10/2015 2:19 PM CDT BMP W CA+ NOTIFICATION STAT 01/10/2015 2:16 PM CDT CBC W AUTO DIFFERENTIAL STAT 01/10/2015 2:16 PM CDT documented in this encounter Results * CT ABDOMEN AND PELVIS WITH IV CONTRAST (01/10/2015 4:08 PM CDT) Anatomical Region Laterality Modality Abdomen, Pelvis Computed Tomogra phy 01/10/2015 4:12 PM CDT Impressions 01/10/2015 4:22 PM CDT Mild prominence of several of the mid and proximal small bowel loops to a point of relatively rapid transition to normal caliber small bowel loops in the midportion of the abdomen. The appearance suggests a mild partial small bowel obstruction which is suspected to be related to adhesions since no focal mass is identified. Operative changes are seen in the right lower quadrant with mild scattered colonic diverticulosis noted elsewhere. A small fat-containing umbilical hernia is also noted. Cholecystectomy and appendectomy. Moderate diffuse fatty infiltration involving the liver. Minimal atelectasis of the lung bases. No other abnormality identified. Narrative 01/10/2015 4:[address] abdomen and pelvis: HISTORY: Left-sided pain and cramping with watery diarrhea containing bright red blood, colon surgery 3 months ago for diverticulitis. Prior cholecystectomy, appendectomy, partial colectomy. CT examination of the abdomen and pelvis was performed on 01/10/2015 following oral and IV contrast (Omnipaque, 125 mL). Coronal reconstructions were also obtained. No relevant prior study is available. There is minimal dependent atelectasis with the visualized lung bases otherwise essentially clear. No recent fracture is identified. Surgical clips related to a cholecystectomy are present. There is moderate diffuse fatty infiltration involving the liver. Otherwise, the liver, spleen, pancreas, adrenal glands and kidneys are unremarkable. There is no obstructing urinary stone or hydronephrosis. No aneurysm or dissection is identified. There is mild prominence of several of the mid and proximal small bowel loops to a point of relatively rapid transition to normal caliber small bowel loops in the midportion of the abdomen. The appearance suggests a mild partial small bowel obstruction which is suspected to be related to adhesions since no focal mass is identified. Operative changes are seen in the right lower quadrant with mild scattered colonic diverticulosis noted elsewhere. A small fat-containing umbilical hernia is also noted. The remainder of the bowel loops are unremarkable. The appendix is absent corresponding to the reported prior appendectomy. No focal soft tissue mass or enlarged adenopathy is seen in the abdomen. The urinary bladder is unremarkable. The prostate gland is within normal limits. No focal soft tissue mass or enlarged adenopathy is seen in the pelvis. Procedure Note Bharat Gonsalves MD - 01/10/2015 CT abdomen and pelvis: HISTORY: Left-sided pain and cramping with watery diarrhea containing bright red blood, colon surgery 3 months ago for diverticulitis. Prior cholecystectomy, appendectomy, partial colectomy. CT examination of the abdomen and pelvis was performed on 01/10/2015 following oral and IV contrast (Omnipaque, 125 mL). Coronal reconstructions were also obtained. No relevant prior study is available. There is minimal dependent atelectasis with the visualized lung bases otherwise essentially clear. No recent fracture is identified. Surgical clips related to a cholecystectomy are present. There is moderate diffuse fatty infiltration involving the liver. Otherwise, the liver, spleen, pancreas, adrenal glands and kidneys are unremarkable. There is no obstructing urinary stone or hydronephrosis. No aneurysm or dissection is identified. There is mild prominence of several of the mid and proximal small bowel loops to a point of relatively rapid transition to normal caliber small bowel loops in the midportion of the abdomen. The appearance suggests a mild partial small bowel obstruction which is suspected to be related to adhesions since no focal mass is identified. Operative changes are seen in the right lower quadrant with mild scattered colonic diverticulosis noted elsewhere. A small fat-containing umbilical hernia is also noted. The remainder of the bowel loops are unremarkable. The appendix is absent corresponding to the reported prior appendectomy. No focal soft tissue mass or enlarged adenopathy is seen in the abdomen. The urinary bladder is unremarkable. The prostate gland is within normal limits. No focal soft tissue mass or enlarged adenopathy is seen in the pelvis. IMPRESSION Mild prominence of several of the mid and proximal small bowel loops to a point of relatively rapid transition to normal caliber small bowel loops in the midportion of the abdomen. The appearance suggests a mild partial small bowel obstruction which is suspected to be related to adhesions since no focal mass is identified. Operative changes are seen in the right lower quadrant with mild scattered colonic diverticulosis noted elsewhere. A small fat-containing umbilical hernia is also noted. Cholecystectomy and appendectomy. Moderate diffuse fatty infiltration involving the liver. Minimal atelectasis of the lung bases. No other abnormality identified. Alberto Mayen MD CT ORDERABLES * URINALYSIS ROUTINE W/REFLEX TO CULTURE (01/10/2015 3:22 PM CDT) Color UA Yellow Straw, Light Yellow, Yellow, Dark Yellow 01/10/2015 3:25 PM CDT [facility] Clarity UA Clear 01/10/2015 3:25 PM CDT [facility] Specific Keymar UA 1.020 1.005 - 1.030 01/10/2015 3:25 PM CDT [facility] pH UA 6.0 5.0 - 8.0 pH 01/10/2015 3:25 PM CDT [facility] Protein UA Negative Negative 01/10/2015 3:25 PM CDT [facility] Blood UA Negative Negative 01/10/2015 3:25 PM CDT [facility] Leukocyte UA Negative Negative 01/10/2015 3:25 PM CDT [facility] Nitrite UA Negative Negative 01/10/2015 3:25 PM CDT [facility] Glucose UA Negative Negative 01/10/2015 3:25 PM CDT [facility] Ketone UA Negative Negative 01/10/2015 3:25 PM CDT [facility] Bilirubin UA Negative Negative 01/10/2015 3:25 PM CDT [facility] Urobilinogen UA 0.2 0.1 - 1.0 EU/dL 01/10/2015 3:25 PM CDT [facility] Reflex Status Culture not indicated 01/10/2015 3:25 PM CDT [facility] Urine URINE SPECIMEN OBTAINED BY CLEAN CATCH PROCEDURE / Unknown 01/10/2015 3:22 PM CDT 01/10/2015 3:22 PM CDT Alberto Mayen MD LAB - URINALYSIS ORD ERABLES [facility] [address] * OCCULT BLOOD FECES - POINT OF CARE (IP) (01/10/2015 3:03 PM CDT) Occult Blood negative Negative [facility] QC Verified Yes Yes [facility] PO CT TESTING Card Exp Date yes Yes [facility] POCT TESTING Stool specimen (specimen) STOOL SPECIMEN / Unknown 01/10/2015 3:03 PM CDT Alberto Mayen MD LAB - POINT OF CARE ORDERABLES [facility] POCT TESTING [address] * (ABNORMAL) ISTAT CHEM8+ PANEL YAN (01/10/2015 2:19 PM CDT) Glucose Venous POCT 154(H) 74 - 106 mg/dL 01/10/2015 2:24 PM CDT [facility] Sodium Venous 138 136 - 145 mmol/L 01/10/2015 2:24 PM CDT [facility] Potassium POCT 3.8 3.5 - 5.1 mmol/L 01/10/2015 2:24 PM CDT [facility] Chloride Venous POCT 99 98 - 107 mmol/L 01/10/2015 2:24 PM CDT [facility] TCO2 Venous POCT 25 23 - 27 mmol/L 01/10/2015 2:24 PM CDT [facility] Anion Gap Venous POCT 18 10 - 20 mmol/L 01/10/2015 2:24 PM CDT [facility] BUN Venous POCT 9 9 - 20 mg/dL 01/10/2015 2:24 PM CDT [facility] Creatinine Venous POCT 1.0 0.5 - 1.3 mg/dL 01/10/2015 2:24 PM CDT [facility] Calcium Ionized Venous POCT 1.17 1.12 - 1.32 mmol/L 01/10/2015 2:24 PM CDT [facility] Sample iSTAT VENOUS 01/10/2015 2:24 PM CDT [facility] CPB iSTAT No 01/10/2015 2:24 PM CDT [facility] Blood BLOOD SPECIMEN / Unknown 01/10/2015 2:19 PM CDT 01/10/2015 2:24 PM CDT Alberto Mayen MD LAB - POINT OF CARE ORDERABLES [facility] [address] * LIPASE BLOOD (01/10/2015 2:19 PM CDT) Lipase 146 73 - 393 U/L 01/10/2015 3:23 PM CDT [facility] Blood BLOOD SPECIMEN / Unknown 01/10/2015 2:19 PM CDT 01/10/2015 2:55 PM CDT Alberto Mayen MD LAB - CHEMISTRY JAMI WALLIS Performing Organization Address City/[facility]/ZIP Co de Phone Number [facility] [address] [place] [id number] * HEPATIC FUNCTION PANEL (01/10/2015 2:19 PM CDT) Alkaline Phosphatase 94 38 - 126 U/L 01/10/2015 3:22 PM CDT [facility] ALT 66 12 - 78 U/L 01/10/2015 3:22 PM CDT [facility] AST 30 5 - 40 U/L 01/10/2015 3:22 PM CDT [facility] Protein Total 7.8 6.4 - 8.2 gm/dL 01/10/2015 3:22 PM CDT [facility] Albumin 4.2 3.4 - 5.0 gm/dL 01/10/2015 3:22 PM CDT [facility] Bilirubin Total 0.4 0.2 - 1.0 mg/dL 01/10/2015 3:22 PM CDT [facility] Bilirubin Direct <0.1 0 - 0.3 mg/dL 01/10/2015 3:22 PM CDT [facility] Blood BLOOD SPECIMEN / Unknown 01/10/2015 2:19 PM CDT 01/10/2015 2:55 PM CDT Alberto Mayen MD LAB - CHEMISTRY JAMI WALLIS [facility] [address] [place] [address] * BMP w CA+ IONIZED iSTAT POC in [facility] (01/10/2015 2:16 PM CDT) Comment Notification Label 01/10/2015 4:00 PM CDT [facility] Blood BLOOD SPECIMEN / Unknown 01/10/2015 2:16 PM CDT 01/10/2015 2:16 PM CDT Alberto Mayen MD LAB BLOOD ORDERABLES [facility] [address] [place], [place] [address] * (ABNORMAL) CBC W AUTO DIFFERENTIAL (01/10/2015 2:16 PM CDT) WBC 5.3 4.4 - 10.7 x10^9/L 01/10/2015 2:22 PM CDT [facility] WBC Corrected x10^9/L 01/10/2015 2:22 PM CDT [facility] RBC 5.80(H) 3.80 - 5.40 x10^12/L 01/10/2015 2:22 PM CDT [facility] Hemoglobin 14.2 12.0 - 17.6 gm/dL 01/10/2015 2:22 PM CDT [facility] Hematocrit 42.3 35.2 - 51.7 % 01/10/2015 2:22 PM CDT [facility] MCV 72.9(L) 80.7 - 98.3 fl 01/10/2015 2:22 PM CDT [facility] MCH 24.5(L) 26.7 - 34.0 pg 01/10/2015 2:22 PM CDT [facility] MCHC 33.6 30.8 - 35.9 gm/dL 01/10/2015 2:22 PM CDT [facility] Platelet Count 255 153 - 416 x10^9/L 01/10/2015 2:22 PM CDT [facility] RDW-CV 14.4 12.1 - 14.9 % 01/10/2015 2:22 PM CDT [facility] MPV 8.7(L) 9.4 - 12.9 fl 01/10/2015 2:22 PM CDT [facility] Neutrophils % 46.7 44.0 - 73.0 % 01/10/2015 2:22 PM CDT [facility] Lymphocytes % 45.3(H) 20.0 - 43.0 % 01/10/2015 2:22 PM CDT [facility] Monocytes % 8.0 5.0 - 13.0 % 01/10/2015 2:22 PM CDT [facility] Neutrophil Absolute 2.5 2.01 - 7.14 x10^9/L 01/10/2015 2:22 PM CDT [facility] Lymphocytes Absolute 2.4 1.07 - 3.94 x10^9/L 01/10/2015 2:22 PM CDT [facility] Monocytes Absolute 0.4 0.26 - 1.07 x10^9/L 01/10/2015 2:22 PM CDT [facility] Blood BLOOD SPECIMEN / Unknown 01/10/2015 2:16 PM CDT 01/10/2015 2:16 PM CDT Alberto Mayen MD LAB - HEMATOLOGY ORD ERABLES [facility] [address] [place] [id number], [facility] documented in this encounter Visit Diagnoses Diagnosis Abdominal pain Partial small bowel obstruction (HCC) Unspecified intestinal obstruction documented in this encounter Administered Medications Inactive Administered Medications - up to 3 most recent administrations Medication Order MAR Action Action Date Dose Rate Site 0.9% NaCl infusion at 125 mL/hr, Intravenous, CONTINUOUS, Starting on Thu01/10/15 at 1445, Until Thu01/10/15 at 2111 $ New Bag/Syringe 01/10/2015 2:23 PM CDT 125 mL/hr HYDROmorphone PF (DILAUDID) 1 mg/ml injection ADS Med 1 dose, Starting on Thu01/10/15 at 1918, Until Thu01/10/15 at 1922, Magaly Steele : cabinet override HYDROmorphone PF (DILAUDID) injection 0.5 mg 0.5 mg, Intravenous, NOW, 1 dose, On Thu01/10/15 at 1415 $ Given 01/10/2015 2:28 PM CDT 0.5 mg HYDROmorphone PF (DILAUDID) injection 0.5 mg 0.5 mg, Intravenous, NOW, 1 dose, On Thu01/10/15 at 1515 $ Given 01/10/2015 3:07 PM CDT 0.5 mg HYDROmorphone PF (DILAUDID) injection 1 mg 1 mg, Intravenous, NOW, 1 dose, On Thu01/10/15 at 1700 $ Given 01/10/2015 4:51 PM CDT 1 mg HYDROmorphone PF (DILAUDID) injection 1 mg 1 mg, Intravenous, NOW, 1 dose, On Thu01/10/15 at 1915 $ Given 01/10/2015 7:22 PM CDT 1 mg iohexol (OMNIPAQUE 350) contrast 0-100 mL 0-100 mL, Oral, CONTRAST ONCE, Starting on Thu01/10/15 at 1403, Until Thu01/10/15 at 2111, Call Radiology for questions regarding dosing and administration instructions. $ Given - Contrast 01/10/2015 2:20 PM CDT 50 mL iohexol (OMNIPAQUE 350) contrast Intravenous, CONTRAST ONCE, Starting on Thu01/10/15 at 1403, Until Thu01/10/15 at 2111 $ Given - Contrast 01/10/2015 3:57 PM CDT 125 mL ondansetron (ZOFRAN) injection 4 mg 4 mg, Intravenous, NOW, 1 dose, On Thu01/10/15 at 1415 $ Given 01/10/2015 2:26 PM CDT 4 mg pantoprazole (PROTONIX) injection 40 mg 40 mg, Intravenous, NOW, 1 dose, On Thu01/10/15 at 1415, Reconstitute vial with 10 mL of 0.9% NaCL to a final concentration 4 mg/mL. Adminster prescribed dose over at least 2min. $ Given 01/10/2015 2:26 PM CDT 40 mg documented in this encounter Active and Recently Administered Medications Times are shown in CDT. Scheduled Medication Order 01/08/2015 01/09/2015 01/10/2015 HYDROmorphone PF (DILAUDID) injection 0.5 mg (COMPLETED) 0.5 mg, Intravenous, NOW, 1 dose, On Thu01/10/15 at 1415 1428 ($ Given - Prov ider: Magaly Steele RN) HYDROmorphone PF (DILAUDID) injection 0.5 mg (COMPLETED) 0.5 mg, Intravenous, NOW, 1 dose, On Thu01/10/15 at 1515 1507 ($ Given - Prov ider: Magaly Steele RN) HYDROmorphone PF (DILAUDID) injection 1 mg (COMPLETED) 1 mg, Intravenous, NOW, 1 dose, On Thu01/10/15 at 1700 1651 ($ Given - Prov ider: Magaly Steele, YENNY) HYDROmorphone PF (DILAUDID) injection 1 mg (COMPLETED) 1 mg, Intravenous, NOW, 1 dose, On Thu01/10/15 at 1915 1922 ($ Given - Prov ider: Magaly Steele RN) iohexol (OMNIPAQUE 350) contrast 0-100 mL (CANCELED) 0-100 mL, Oral, CONTRAST ONCE, Starting on Thu01/10/15 at 1403, Until Thu01/10/15 at 2111, Call Radiology for questions regarding dosing and administration instructions. 1420 ($ Given - Cont rast - Provider: Celsa Brooks) iohexol (OMNIPAQUE 350) contrast (CANCELED) Intravenous, CONTRAST ONCE, Starting on Thu01/10/15 at 1403, Until Thu01/10/15 at 2111 1557 ($ Given - Cont rast - Provider: Celsa Brooks) ondansetron (ZOFRAN) injection 4 mg (COMPLETED) 4 mg, Intravenous, NOW, 1 dose, On Thu01/10/15 at 1415 1426 ($ Given - Prov ider: Magaly Steele RN) pantoprazole (PROTONIX) injection 40 mg (COMPLETED) 40 mg, Intravenous, NOW, 1 dose, On Thu01/10/15 at 1415, Reconstitute vial with 10 mL of 0.9% NaCL to a final concentration 4 mg/mL. Adminster prescribed dose over at least 2min. 1426 ($ Given - Prov ider: Magaly Steele RN) Continuous Medication Order 01/08/2015 01/09/2015 01/10/2015 0.9% NaCl infusion (CANCELED) at 125 mL/hr, Intravenous, CONTINUOUS, Starting on Thu01/10/15 at 1445, Until Thu01/10/15 at 2111 1423 ($ New Bag/Syri nge - Provider: Magaly Steele RN) documented in this encounter
--- OUTSIDE RECORDS SUMMARY | 2024-09-03 00:58 | XMS_ITS | Encounter Summary ---
Author Organization [facility] Address [address] [place] [address] Care Team Providers Care Him Analyst Name Role Phone Monique Garcia MD Unavailable [phone] Monique Garcia MD Unavailable [phone] Nathan Martinez MD Primary Care Provider [phone] Reason for Referral * Consultation (Routine) - Closed Specialty Diagnoses / Procedures Referred By Contac t Referred To Contact Ophthalmology Diagnoses Type 2 diabetes mellitus with hyperglycemia, without long-term current use of insulin (HCC) Nathan Maritnez MD [address] [place] [address] Phone: tel: fax: [facility] [address] [place] [address] Phone: tel: fax: Referral ID Status Reason Start Date Expiration Date V isits Requested Visits Authorized [id number] Closed Specialty Services Required 08/08/2024 09/07/2025 1 1 Question Answer Please select the performing region: External Order [171] To loc/pos [facility] [[id number]] # of visits: 1 CRIPTION CLERK LENSES Reason for Visit * Reason Comments Follow-up Three month follow u p r/t lipidemia, diabetes, anemia, depression. No current labs in chart. No concerns. Referral Request Requesting referral to colorectal surgeon r/t bowel adhesions. Encounter Details Date Type Department Care Team (Latest Contact Info) Description 08/08/2024 11:00 AM PRESCRIPTION CLERK LENSES Office Visit [facility] [address] [place] [address] Nathan Martinez MD [address] [place] [address] Type 2 diabetes mellitus with hyperglycemia, without long-term current use of insulin (HCC) (Primary Dx); Major depression in remission (HCC); Attention deficit hyperactivity disorder (ADHD), predominantly inattentive type; Mixed hyperlipidemia Social History Tobacco Use Types Packs/Day Years Used Date Smoking Tobacco: Never Cigarettes Smokeless Tobacco: Current Chew Tobacco Cessation:Ready to Q uit: Not Asked; Counseling Given: Not Answered Comments:advised to quit 1 can of chew per week since 1994 Alcohol Use Standard Drinks/Week Comments Not Currently 0 (1 standard drink = 0.6 oz pur e alcohol) AUDIT-C Answer Date Recorded Q1: How often do you have a drink containing alcohol? Never 01/08/2024 Q2: How many drinks containi ng alcohol do you have on a typical day when you are drinking? Patient does not drink Q3: How often do you have si x or more drinks on one occasion? Never 01/08/2024 PHQ-2 Answer Date Recorded PHQ-2 Total Score (If total score is 3 or more points, staff should administer the PHQ-9) 1 08/08/2024 Personal Safety Answer Date Recorded Have you ever been in or are you currently in a harmful physical or emotional relationship or is someone making you feel afraid or unsafe? Denies 09/16/2023 Sex and Gender Information Value Date Recorded Sex Assigned at Not on file Legal Sex Male 2:58 AM CDT Gender Identity Male 03/10/2022 6:57 PM CDT Sexual Orientation Not on file documented as of this encounter Last Filed Vital Signs Vital Sign Reading Time Taken Comments Blood Pressure 124/82 08/08/2024 11:17 AM PRESCRIPTION CLERK LENSES Pulse 86 08/08/2024 11:17 AM PRESCRIPTION CLERK LENSES Temperature 36.7 ??C (98 ??F) 08/08/2024 11: 17 AM PRESCRIPTION CLERK LENSES Respiratory Rate 18 08/08/2024 11:1 7 AM PRESCRIPTION CLERK LENSES Oxygen Saturation 98% 08/08/2024 11: 17 AM PRESCRIPTION CLERK LENSES Inhaled Oxygen Concentration - - Weight 89.3 kg (196 lb 12.8 oz) 024 11:17 AM PRESCRIPTION CLERK LENSES Height 180.3 cm (5' 10.98 ) 08/08/2024 11:17 AM PRESCRIPTION CLERK LENSES Body Mass Index 27.46 08/08/2024 11:17 AM PRESCRIPTION CLERK LENSES documented in this encounter Ordered Prescriptions Prescription Sig Dispense Quantity Refills Last Filled Start Date End Date modafiniL (PROVIGIL) 100 mg tablet Take 1 tablet (100 mg total) by mouth daily 90 tablet 08/08/2024 semaglutide (OZEMPIC) 1 mg/dose (4 mg/3 mL) pen injector injection Inject 1 mg under the skin every 7 days 9 mL 1 08/08/2024 escitalopram (LEXAPRO) 20 mg tablet Take 1 tablet (20 mg total) by mouth daily 90 tablet 1 08/08/2024 traZODone (DESYREL) 100 mg tablet Take 1 tablet by mouth every night 90 tablet 1 08/08/2024 documented in this encounter Progress Notes * Nathan Martinez MD - 08/08/2024 11:00 AM CST Subjective/Objective Patient ID: Erich Allen is a 54 y.o. male. Chief Complaint No chief complaint on file. There were no vitals taken for this visit. PHQ Screening History of Present Illness needs eye exam He was last seen on May 02 with worsening of diabetes as reflected by higher A1c. A1c was 7.1. Ozempic was increased to 1 mg weekly. Also glipizide 10 mg daily. No hypoglycemia 2. Attention deficit disorder taking Provigil 100 mg off-label for ADD. 3. Depression. Patient's depression is wellcontrolled . Taking Lexapro 20 mg every day without any side effects . No manic symptoms or irritability. No substance use. Not suicidal or homicidal. Today PHQ-9 score is 1. 4. Lipidemia taking atorvastatin 10 mg daily without myalgias. Needs lipids Review of Systems Gen.: No fever, night sweats, weight loss, fatigue, or malaise. HEENT: No vision problems. No ear pain or throat pain. No coryza. Hematologic: No adenopathy, bruising, or easy bleeding Cardiovascular: No chest pain, claudication, or TIA symptoms. No palpitations or dizziness. Respiratory: No cough, dyspnea, or wheezing. Gastrointestinal: No abdominal pain, change in bowel habit, melena, blood in the stool, dysphagia, or vomiting Genitourinary: No blood in the urine or change in urination. Musculoskeletal: No myalgias. No swelling, stiffness, or pain in joints. Neurological: No focal neurological symptoms, headaches, numbness, weakness, or loss of feeling. Psychiatric: No manic symptoms, depression, or use of recreational substances. No loss of interest in pleasurable activities Physical Exam Gen. appearance: Alert nontoxic no acute distress. Head: Ears nose and throat clear without visible signs of inflammation. Eyes: Conjunctiva clear. No photosensitivity.. Fundi benign. Pupils equal and reactive to light. Neck: No bruits. No adenopathy. No thyroidomegaly. No distended neck veins. Heart: Regular rate and rhythm. No murmurs. Normal heart sounds Lungs No retractions or visible respiratory distress: Clear on auscultation and percussion. No E toA change. Abdomen: Soft, nontender, no organomegaly. Extremities: No edema. Normal peripheral pulses. DTRs 2+ symmetric. Neurologic. Good symmetric sensory and motor exams. Gait normal. Skin: Clear of any rashes or significant abnormalities. Musculoskeletal: No visible swelling or inflammation of any joints. No bony tenderness. Good range of motion joints. Psych: Not depressed. No agitation or akathisia. Orientation and concentration normal. Feet:Diabetic foot exam: Left monofilament exam: normal Right monofilament exam: normal Assessment/Plan Diagnoses and all orders for this visit: Type 2 diabetes mellitus with hyperglycemia, without long-term current use of insulin (HCC) (E11.65) (Primary) Assessment & Plan: A1c today. Orders: - Ambulatory referral to Ophthalmology; Future Major depression in remission (HCC) (F32.5) Assessment & Plan: Continue Lexapro at same dosage. Well controlled. Attention deficit hyperactivity disorder (ADHD), predominantly inattentive type (F90.0) Assessment & Plan: Continue Provigil at same dosage. Well controlled. Return 3 months Mixed hyperlipidemia (E78.2) Assessment & Plan: Continue atorvastatin same dosage. Needs repeat lipid Other orders - Creatinine; Future - Albumin Creatinine Ratio, Urine; Future - Comprehensive metabolic panel; Future - Lipid panel; Future CRIPTION CLERK LENSES documented in this encounter Miscellaneous Notes * Assessment & Plan Note - Nathan Martinez MD - 08/05/2024 2:15 PM PRESCRIPTION CLERK LENSES Associated Problem(s): Lipidemia Continue atorvastatin same dosage. Needs repeat lipid CRIPTION CLERK LENSES * Assessment & Plan Note - Nathan Martinez MD - 08/05/2024 2:14 PM PRESCRIPTION CLERK LENSES Associated Problem(s): ADD (attention deficit disorder) Continue Provigil at same dosage. Well controlled. Return 3 months CRIPTION CLERK LENSES * Assessment & Plan Note - Nathan Martinez MD - 08/05/2024 2:13 PM PRESCRIPTION CLERK LENSES Associated Problem(s): Major depression in remission (HCC) Continue Lexapro at same dosage. Well controlled. CRIPTION CLERK LENSES * Assessment & Plan Note - Nathan Martinez MD - 08/05/2024 2:12 PM PRESCRIPTION CLERK LENSES Associated Problem(s): Type 2 diabetes mellitus with hyperglycemia, without long-term current use of insulin (HCC) A1c today. Is improved at 7.0. Continue Ozempic/glipizide at same dosage. Well controlled. CRIPTION CLERK LENSES CRIPTION CLERK LENSES documented in this encounter Plan of Treatment Scheduled Orders Name Type Priority Associated Diagnoses Orde r Schedule Creatinine Lab Routine Type 2 diabetes mellitus with hyperglycemia, without long-term current use of insulin ([facility]/HCC) (HCC) Expected: 08/08/2024, Expires: 08/04/2025 Albumin Creatinine Ratio, Urine Lab Routine Type 2 diabetes mellitus with hyperglycemia, without long-term current use of insulin ([facility]/HCC) (HCC) Expected: 08/08/2024, Expires: 08/04/2025 Comprehensive metabolic panel Lab Routine Type 2 diabetes mellitus with hyperglycemia, without long-term current use of insulin ([facility]/HCC) (HCC) Expected: 08/08/2024, Expires: 08/04/2025 Lipid panel Lab Routine Type 2 diabetes mellitus with hyperglycemia, without long-term current use of insulin ([facility]/HCC) (HCC) Expected: 08/08/2024, Expires: 08/04/2025 Lipid panel Lab Routine Type 2 diabetes mellitus with hyperglycemia, without long-term current use of insulin (HCC) Expected: 08/08/2024, Expires: 08/08/2025 Comprehensive metabolic panel Lab Routine Type 2 diabetes mellitus with hyperglycemia, without long-term current use of insulin (HCC) Expected: 08/11/2024, Expires: 08/08/2025 Scheduled Referrals Name Type Priority Associated Diagnoses Order Schedule Ambulatory referral to Ophthalmology Outpatient Referral Routine Type 2 diabetes mellitus with hyperglycemia, without long-term current use of insulin ([facility]) (HCC) Expected: 08/18/2024 (Approximate), Expires: 08/04/2025 documented as of this encounter Procedures Procedure Name Priority Date/Time Associated Diagnosis Comments POCT HEMOGLOBIN A1C Routine 08/08/2024 1 1:33 AM PRESCRIPTION CLERK LENSES Type 2 diabetes mellitus with hyperglycemia, without long-term current use of insulin ([facility]) documented in this encounter Results * (ABNORMAL) POCT hemoglobin A1c (08/08/2024 11:33 AM PRESCRIPTION CLERK LENSES) Hemoglobin A1C, POC 7.0 4.0 - 5.6 % Blood 08/08/2024 11:3 3 AM PRESCRIPTION CLERK LENSES Nathan Martinez MD POINT OF CARE TEST ORDERAB LES Final Result documented in this encounter Visit Diagnoses Diagnosis Type 2 diabetes mellitus with hyperglycemia, without long-term current use of insulin (HCC)- Primary Major depression in remission (HCC) Major depressive disorder, single episode in full remission Attention deficit hyperactivity disorder (ADHD), predominantly inattentive type Mixed hyperlipidemia documented in this encounter Discontinued Medications Medication Sig Discontinue Reason Start Date End Da te escitalopram (LEXAPRO) 20 mg tablet Take 1 tablet (20 mg total) by mouth daily Reorder 05/02/2024 08/08/2024 modafiniL (PROVIGIL) 100 mg tablet Take 1 tablet (100 mg total) by mouth daily Reorder 05/02/2024 08/08/2024 traZODone (DESYREL) 100 mg tablet Take 1 tablet by mouth every night Reorder 05/02/2024 08/08/2024 semaglutide (OZEMPIC) 1 mg/dose (4 mg/3 mL) pen injector injection Inject 1 mg under the skin every 7 days Reorder 05/02/2024 08/08/2024 documented as of this encounter Care Teams Him Analyst Relationship Specialty Start Date End Date Nathan Martinez MD PCP - General Family Practice 09/10/20 Monique Garcia MD Referring Physician Gastroenterology 06/11/20 Monique Garcia MD Referring Physician Gastroenterology 06/11/20 documented as of this encounter
--- OUTSIDE RECORDS SUMMARY | 2024-09-03 00:58 | XMS_ITS | Referral Summary ---
Author Organization [facility] [employer] Address [address] [place] [address] Care Team Providers Care Weld Inspector Name Role Phone Unavailable Primary Care Provider Unavailabl e Source Comments [facility] [employer],non-owned Affiliates and Associated Physician Practices is amultiple site organization consisting of ambulatory clinics and hospital sitesin [place], [place], [place] and [place]. This disclosure is being madepursuant to the Care Everywhere program and may not contain all information available regarding this patient. Last updated 18.[facility] [employer] Allergies No known active allergies Medications * Be aware that medications may not be up to date on this document. Alwaysverify current medications with the patient. Medication Sig Dispensed Refills Start Date End Date Status hydrOXYzine pamoate (VISTARIL) 25 MG capsule Take 25 mg by mouth 3 times daily. Active lisinopril (PRINIVIL; ZESTRIL) 10 MG tablet Take 10 mg by mouth once daily. Active metFORMIN (GLUCOPHAGE) 500 MG tablet Take 500 mg by mouth 2 times daily with morning and evening meal. Active acetaminophen (TYLENOL) 650 MG suppository Insert 1 Suppository into the rectum 4 times daily as needed. 01/12/2015 Active Active Problems Problem Noted Date Diagnosed Date SBO (small bowel obstruction) 01/10/2015 Immunizations Name Administration Dates Next Due PNEUMOCOCCAL PPSV23 01/12/2015 Social History Tobacco Use Types Packs/Day Years Used Date Smoking Tobacco: Never Smokeless Tobacco: Current Snuff Alcohol Use Standard Drinks/Week Comments Yes 0 (1 standard drink = 0.6 oz pur e alcohol) monthly social Sex and Gender Information Value Date Recorded Sex Assigned at Not on file Gender Identity Not on file Sexual Orientation Not on file Last Filed Vital Signs Vital Sign Reading Time Taken Comments Blood Pressure 121/84 01/12/2015 1:11 PM CDT Pulse 76 01/12/2015 1:11 PM CDT Temperature 36.4 ??C (97.5 ??F) 01/12/2015 1:11 PM CD T Respiratory Rate 18 01/12/2015 1:11 PM CDT Oxygen Saturation 99% 01/12/2015 1:11 PM CDT Inhaled Oxygen Concentration - - Weight 96.7 kg (213 lb 3.2 oz) 01/10/2015 9:16 P M CDT Height 180.3 cm (5' 11 ) 01/10/2015 9:16 PM CDT Body Mass Index 29.74 01/10/2015 9:16 PM CDT Functional Status Functional Status Response Date of Assess ment Is person deaf or have serious hearing difficult y? No 01/10/2015 Is person blind or have serious difficulty seein g? No 01/10/2015 Does person have serious dif ficulty walking/climbing stairs? No 01/10/2015 Does person have difficulty dressing/bathing? No 01/10/2015 Does person have difficulty doing errands alone? No 01/10/2015 Cognitive Status Response Date of Assessm ent Does person have difficulty concentrating/remembering/making decisions? No 01/10/2015 Plan of Treatment Not on file Advance Directives * Full Code (Latest Code Status on File) Date Activated Date Inactivated Comments 01/10/2015 10:22 PM 01/12/2015 5:26 PM
--- OUTSIDE RECORDS SUMMARY | 2024-09-03 00:58 | XMS_ITS | Clinical Summary ---
Author Organization [facility] Address [address] [place] [address] Care Team Providers Care Wine Sales Representative Name Role Phone Monique Garcia MD Unavailable Monique Garcia MD Unavailable [phone] Nathan Martinez MD Primary Care Provider [phone] Allergies Active Allergy Reactions Criticality Noted Date Comments Gabapentin Anxiety Low 05/13/2020 Promethazine Anxiety Low 05/13/2020 Ketorolac Hives Medium 05/13/2020 Medications triamcinolone (KENALOG) 0.1 % cream Apply to affected area 1-2 times daily as needed. Avoid face and groin. 90 g 1 2 Active atorvastatin (LIPITOR) 10 mg tablet Take 1 tablet (10 mg total) by mouth daily 90 tablet 1 4 Active glipiZIDE (GLUCOTROL) 10 mg tabletIndicatio ns:type 2 diabetes mellitus Take 1 tablet (10 mg total) by mouth daily 90 tablet 1 4 Active hyoscyamine ER (LEVBID) 0.375 mg 12 hr tabletIndicatio ns:diarrhea Take 1 tablet (0.375 mg total) by mouth every 12 (twelve) hours as needed for cramping 180 tablet 1 4 Active linaCLOtide (LINZESS) 290 mcg capsule Take 1 capsule (290 mcg total) by mouth daily 90 capsule 1 4 Active traZODone (DESYREL) 100 mg tablet Take 1 tablet by mouth every night 90 tablet 1 4 Active escitalopram (LEXAPRO) 20 mg tablet Take 1 tablet (20 mg total) by mouth daily 90 tablet 1 4 Active semaglutide (OZEMPIC) 1 mg/dose (4 mg/3 mL) pen injector injection Inject 1 mg under the skin every 7 days 9 mL 1 4 Active modafiniL (PROVIGIL) 100 mg tablet Take 1 tablet (100 mg total) by mouth daily 90 tablet 4 Active escitalopram (LEXAPRO) 20 mg tablet Take 1 tablet (20 mg total) by mouth daily 90 tablet 1 4 08/08/20 24 Discontinu ed(Reorder ) modafiniL (PROVIGIL) 100 mg tablet Take 1 tablet (100 mg total) by mouth daily 90 tablet 4 08/08/20 24 Discontinu ed(Reorder ) traZODone (DESYREL) 100 mg tablet Take 1 tablet by mouth every night 90 tablet 1 4 08/08/20 24 Discontinu ed(Reorder ) semaglutide (OZEMPIC) 1 mg/dose (4 mg/3 mL) pen injector injection Inject 1 mg under the skin every 7 days 3 mL 2 4 08/08/20 24 Discontinu ed(Reorder ) Active Problems Problem Noted Date Diagnosed Date Adhesion of omentum 01/08/2024 Assessment & Plan (01/08/2024 10:00 AM CDT): Refer to colorectal surgeon. Slow transit constipation 01/08/2024 Assessment & Plan (01/08/2024 10:08 AM CDT): Constipation associated with some abdominal cramping. We will give him some samples of Linzess 290 mcg to try and if helpful we can give him a prescription. Thoracic spine pain 09/25/2023 Controlled type 2 diabetes m sangitaitus without complication, without long-term current use of insulin ([facility]) 05/21/2023 Assessment & Plan (05/02/2024 3:03 PM CDT): A1c today. Continue glipizide/Ozempic at same dosage. A1c is higher. Increase Ozempic to 1 mg Assessment & Plan (10/15/2023 11:29 AM PLASMA CENTER NURSE): A1c today . Continue glipizide/Trulicity at same dosage. Well controlled. Right knee pain 12/01/2022 Assessment & Plan (05/02/2024 2:48 PM CDT): Worsening of chronic right knee pain. We will get x-rays recommend trial NSAID Assessment & Plan (01/16/2023 9:48 AM CDT): Much improved and no longer taking tramadol or Motrin. Assessment & Plan (12/05/2022 8:00 AM CDT): Much improved and may return to work without restriction. Follow-up p.r.n.. Assessment & Plan (12/01/2022 8:26 AM CDT): Will give prescription for Motrin. We will trying get MRI. We will refer to orthopedics. Tinnitus of both ears 09/12/2022 Assessment & Plan (09/12/2022 9:35 AM PLASMA CENTER NURSE): Some tinnitus for 2 months. Possible hearing loss. Ear canals normal today drums normal ENT refer Lipidemia 09/11/2022 Assessment & Plan (08/05/2024 2:15 PM PLASMA CENTER NURSE): Continue atorvastatin same dosage. Needs repeat lipid Assessment & Plan (05/01/2024 12:22 PM CDT): Needs repeat lipids. Continue atorvastatin at same dose. Assessment & Plan (01/07/2024 4:08 PM CDT): Continue atorvastatin same dosage but needs repeat lipids. Assessment & Plan (10/15/2023 11:35 AM PLASMA CENTER NURSE): Continue atorvastatin at same dosage. Well controlled. Assessment & Plan (06/23/2023 2:03 PM CDT): Continue Lipitor same dosage but needs repeat lipids. Assessment & Plan (01/15/2023 1:58 PM CDT): Continue atorvastatin same dosage but needs repeat lipids Assessment & Plan (09/11/2022 3:45 PM PLASMA CENTER NURSE): Continue atorvastatin same dosage Acute left ankle pain 05/05/2022 Assessment & Plan (05/05/2022 9:04 AM CDT): This is getting better to discomfort is over the Achilles tendon probably Achilles tendon inflammation. Recommend referral declined. X-rays negative Over weight 04/03/2022 Assessment & Plan (05/01/2024 12:22 PM CDT): BMI Follow-up includes: nutrition counseling and exercise counseling. Assessment & Plan (01/07/2024 4:09 PM CDT): BMI Follow-up includes: nutrition counseling and exercise counseling. Assessment & Plan (10/15/2023 12:07 PM PLASMA CENTER NURSE): Diabetic foot exam: Left monofilament exam: normal Right monofilament exam: normal Assessment & Plan (06/23/2023 2:08 PM CDT): BMI Follow-up includes: nutrition counseling and exercise counseling. Assessment & Plan (01/15/2023 2:03 PM CDT): BMI Follow-up includes: nutrition counseling and exercise counseling. Assessment & Plan (05/02/2022 11:04 AM CDT): BMI Follow-up includes: nutrition counseling and exercise counseling. Left inguinal hernia 12/16/2021 Assessment & Plan (12/16/2021 10:00 AM CDT): Reducible an already has appointment with surgeon Right lower quadrant pain 09/02/2021 Assessment & Plan (12/16/2021 9:59 AM CDT): Still a problem and has seen GI with recurrent intestinal blockage and has appointment with surgeon. Most likely secondary to adhesions also evidence for reducible inguinal hernia left side for which we will also have him see surgeon Assessment & Plan (09/02/2021 8:59 AM PLASMA CENTER NURSE): Pain most recently is in the right lower quadrant but can be and other areas and is similar to the previous pain he had in May-relieved by bowel movements. Alternating constipation and diarrhea but mostly diarrhea will try Levbid will get KUB of the abdomen. 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 Constant pain. Worse about 30 minutes after eating. Referral to GI. Left lower quadrant Assessment & Plan (09/16/2021 9:44 AM PLASMA CENTER NURSE): Try peppermint oil pill daily. Discontinue Levbid. Refer to GI. Needs colonoscopy. Assessment & Plan (09/02/2021 8:59 AM PLASMA CENTER NURSE): Previous pain is similar to this pain and is relieved by bowel movements without any blood in the stool or melanotic stools. Most suggestive of irritable bowel syndrome will try Levbid. Caution side effects 11. Re-evaluate few weeks for to GI. KUB Periumbilical pain 06/17/2021 Assessment & Plan (06/17/2021 10:22 AM CDT): Worse times few days and associated with some loose stools. Bloody stool. Some nausea but no vomiting. Bronchospasm 11/12/2020 Assessment & Plan (11/12/2020 10:01 AM CDT): Will get chest x-ray and PFTs ADD (attention deficit disorder) 10/08/2020 Assessment & Plan (08/05/2024 2:14 PM PLASMA CENTER NURSE): Continue Provigil at same dosage. Well controlled. Return 3 months Assessment & Plan (05/01/2024 12:20 PM CDT): Continue Provigil at same dosage. Well controlled. Return 3 months Assessment & Plan (01/07/2024 4:03 PM CDT): Continue Provigil at same dosage. Well controlled. Assessment & Plan (10/16/2023 1:08 PM PLASMA CENTER NURSE): Takes Provigil off-label. Adequate control with medicine. No side effects. Assessment & Plan (01/16/2023 9:48 AM CDT): Still takes Provigil which helps with attention, focus, task completion, and decreasing distractions. No side effects. Assessment & Plan (05/02/2022 11:01 AM CDT): Continue Provigil at same dosage. Well controlled. Assessment & Plan (12/13/2021 9:56 AM CDT): Continue modafinil at same dosage. Well controlled. Understands off-label usage. Assessment & Plan (09/13/2021 9:27 AM PLASMA CENTER NURSE): Continue modafinil at same dosage. Well controlled. No signs of toxicity and patient understands this is off-label treatment Assessment & Plan (08/30/2021 7:27 AM PLASMA CENTER NURSE): Allow modafinil as no evidence of toxicity and evidence of benefit Assessment & Plan (06/11/2021 1:30 PM CDT): Continue Provigil at same dosage. Well controlled. Assessment & Plan (02/08/2021 10:32 AM CDT): Continue modafinil at same dosage. Well controlled. Assessment & Plan (11/09/2020 1:42 PM CDT): Allow modafinil but understands off-label Assessment & Plan (10/08/2020 10:45 AM PLASMA CENTER NURSE): Previously diagnosed with this by psychiatrist at [place]. good response previously to modafinil but I would prefer to try Strattera 1st as I told him I am not that familiar with usage of modafinil Deviated nasal septum 10/08/2020 Assessment & Plan (11/12/2020 10:01 AM CDT): Just had surgery done a few weeks ago and has follow-up appointment with ENT today Hypertrophy of both inferior nasal turbinates Shortness of breath 09/10/2020 Assessment & Plan (11/12/2020 10:00 AM CDT): Will repeat chest x-ray in get PFTs Assessment & Plan (10/08/2020 10:46 AM PLASMA CENTER NURSE): Much improved Assessment & Plan (09/10/2020 10:03 AM PLASMA CENTER NURSE): Mainly with exertion and will refer to Pulmonary. Recent COVID pneumonia. Will allow return to work as shortness of breath is only with exertion. Cough 09/10/2020 Assessment & Plan (06/17/2021 10:23 AM CDT): Cough times few days probably related to upper respiratory infection and most likely viral. Some yellow speech Assessment & Plan (11/12/2020 10:01 AM CDT): Will get chest x-ray and PFTs because of persisting respiratory symptoms. No past history of lung disease Assessment & Plan (10/08/2020 10:45 AM PLASMA CENTER NURSE): Much improved Assessment & Plan (09/10/2020 9:58 AM PLASMA CENTER NURSE): Persisting cough and will refer to Pulmonary for Rash 09/10/2020 Assessment & Plan (10/08/2020 10:45 AM PLASMA CENTER NURSE): Much improved Assessment & Plan (09/10/2020 10:02 AM PLASMA CENTER NURSE): There is a dry Pash of eczematoid type rash on his back that is different than psoriasis he has other areas. We will give him some topical hydrocortisone cream but not to use longer than 2 weeks as risk of atrophy and tolerance. Nasal polyp 09/10/2020 Assessment & Plan (09/10/2020 10:07 AM PLASMA CENTER NURSE): ENT referral Anemia 09/09/2020 Assessment & Plan (09/09/2020 1:03 PM PLASMA CENTER NURSE): Needs iron studies and methylmalonic acid level. Needs to have colonoscopy done. Type 2 diabetes mellitus wit h hyperglycemia, without long-term current use of insulin 06/08/2020 Assessment & Plan (08/08/2024 11:33 AM PLASMA CENTER NURSE): A1c today. Is improved at 7.0. Continue Ozempic/glipizide at same dosage. Well controlled. Assessment & Plan (01/08/2024 10:11 AM CDT): Glipizide at same dosage. A1c is improved at 6.9 today Assessment & Plan (06/23/2023 2:01 PM CDT): Needs A1c. Continue glipizide and Trulicity same dosage Assessment & Plan (01/16/2023 9:56 AM CDT): A1c today. A1c was improved with result of 6.7 today . Continue Trulicity/glipizide/Jardiance/metformin at same dosage. Well controlled. Assessment & Plan (09/11/2022 3:47 PM PLASMA CENTER NURSE): A1C TODAY.BMI Follow-up includes: nutrition counseling and exercise counseling. Assessment & Plan (05/02/2022 11:00 AM CDT): A1c today . Continued improvement. Continue metformin/glipizide/Trulicity/Jardiance at same dosage. Well controlled. Assessment & Plan (12/16/2021 10:08 AM CDT): A1c today. A1c improved at a 0.0 but needs further improved Also needs lipids and microalbumin. Increase Trulicity dose to 1.5 mg weekly Assessment & Plan (09/16/2021 9:43 AM PLASMA CENTER NURSE): A1c today. Diabetes needing better control. No hypoglycemic symptoms. Metformin, Jardiance, and glipizide daily. No significant improvement and will add Trulicity 0.75 mg weekly Assessment & Plan (08/30/2021 7:25 AM PLASMA CENTER NURSE): A1c today. Assessment & Plan (06/17/2021 10:38 AM CDT): A1c today. Also needs lipids, urine microalbumin, and diabetic eye exam. A1c is higher. Also start glipizide 5 mg daily and re-evaluate blood sugar in at least 3 months Assessment & Plan (02/11/2021 10:48 AM CDT): A1c is still over 8. Discussed and recommend additional medication with 1 option being increasing dose of metformin and another option adding a new additional medication. We will increase metformin to 1000 mg twice a day Assessment & Plan (11/09/2020 1:42 PM CDT): A1c today. Random blood sugar today. Assessment & Plan (10/08/2020 10:42 AM PLASMA CENTER NURSE): Check fasting blood sugar today. Result is 415 no he has had better sugars at home. No hypoglycemic symptoms will increase Jardiance to 25 mg daily as he has had no side effects. Assessment & Plan (09/10/2020 9:58 AM PLASMA CENTER NURSE): Needs better control. Medication options discussed. Risk and benefits of each option. Will add Jardiance 10 mg and re-evaluate 3 months Assessment & Plan (06/08/2020 10:30 AM CDT): A1c today. Psychophysiologic insomnia 06/08/2020 Assessment & Plan (05/01/2024 12:22 PM CDT): Continue trazodone at same dosage. Well controlled. Assessment & Plan (01/07/2024 4:02 PM CDT): Continue trazodone at same dosage. Well controlled. Assessment & Plan (10/15/2023 11:36 AM PLASMA CENTER NURSE): Continue trazodone at same dosage. Well controlled. Assessment & Plan (06/23/2023 2:04 PM CDT): Continue trazodone same dosage. Well controlled. Assessment & Plan (01/15/2023 1:59 PM CDT): Continue trazodone at same dosage. Well controlled. Assessment & Plan (09/11/2022 3:44 PM PLASMA CENTER NURSE): Continue trazodone Assessment & Plan (05/02/2022 11:04 AM CDT): Continue trazodone at same dosage. Well controlled. Assessment & Plan (12/13/2021 9:57 AM CDT): Continue trazodone at same dosage. Well controlled. Assessment & Plan (08/30/2021 7:26 AM PLASMA CENTER NURSE): Continue trazodone at same dosage. Well controlled. Assessment & Plan (06/11/2021 1:30 PM CDT): Continue trazodone at same dosage. Well controlled. Assessment & Plan (02/08/2021 10:36 AM CDT): Continue trazodone at same dosage. Well controlled. Assessment & Plan (10/08/2020 10:31 AM PLASMA CENTER NURSE): Improved. Continue trazodone 100 mg Assessment & Plan (09/10/2020 10:00 AM PLASMA CENTER NURSE): Increase trazodone to 100 mg needs better control Assessment & Plan (06/08/2020 10:30 AM CDT): Continue medication at same dosage. Well controlled. Major depression in remission 06/08/2020 Assessment & Plan (08/05/2024 2:13 PM PLASMA CENTER NURSE): Continue Lexapro at same dosage. Well controlled. Assessment & Plan (05/01/2024 12:21 PM CDT): Continue Lexapro at same dosage. Well controlled. Assessment & Plan (01/07/2024 4:04 PM CDT): Continue Lexapro at same dosage. Well controlled. Assessment & Plan (10/15/2023 11:35 AM PLASMA CENTER NURSE): Continue Lexapro at same dosage. Well controlled. Assessment & Plan (06/23/2023 2:07 PM CDT): Continue Lexapro at same dosage. Well controlled. Assessment & Plan (01/15/2023 2:00 PM CDT): Continue Lexapro at same dosage. Well controlled. Assessment & Plan (09/11/2022 3:44 PM PLASMA CENTER NURSE): Continue Lexapro at same dosage. Well controlled. Assessment & Plan (05/02/2022 11:00 AM CDT): Continue Lexapro at same dosage. Well controlled. Assessment & Plan (12/13/2021 9:57 AM CDT): Continue Lexapro at same dosage. Well controlled. Assessment & Plan (08/30/2021 7:26 AM PLASMA CENTER NURSE): Continue Lexapro at same dosage. Well controlled. Assessment & Plan (06/11/2021 1:30 PM CDT): Continue Lexapro at same dosage. Well controlled. Assessment & Plan (02/08/2021 10:33 AM CDT): Continue Lexapro at same dosage. Well controlled. Assessment & Plan (11/09/2020 1:42 PM CDT): Continue Lexapro at same dosage. Well controlled. Assessment & Plan (09/09/2020 1:01 PM PLASMA CENTER NURSE): Continue medication at same dosage. Well controlled. Assessment & Plan (06/08/2020 10:31 AM CDT): Continue medication at same dosage. Well controlled. Resolved Problems Problem Noted Date Diagnosed Date Resolved Date Memory loss 10/08/2020 10/08/2020 BMI 30.0-30.9,adult 06/11/2020 12/25/19 24 Assessment & Plan (06/11/2020 11:00 AM CDT): BMI Follow-up includes: nutrition counseling and exercise counseling. Left lower quadrant pain 06/08/2020 Assessment & Plan (06/11/2020 11:14 AM CDT): Still left lower quadrant pain but better. Has appointment with GI in the next few days. Previous history of colon resection because of diverticulitis Encounters Date Type Department Care Team Description 09/01/2024 Telephone [facility] [address] [place] [address] Nathan Martinez MD Forms Request 08/27/2024 Orders Only [facility] Information Management [address] [place] [id number] Scanning, Provider 08/08/2024 11:00 AM PLASMA CENTER NURSE Office Visit [facility] [address] [id number] Nathan Martinez MD Type 2 diabetes mellitus with hyperglycemia, without long-term current use of insulin (HCC) (Primary Dx); Major depression in remission (HCC); Attention deficit hyperactivity disorder (ADHD), predominantly inattentive type; Mixed hyperlipidemia from Last 3 Months Immunizations Name Administration Dates Next Due H1N1 Inj 09/03/2009 Hep A / Hep B 05/03/2008 Hep A, Adult 02/13/1998,07/30/1997,02/17/1997 Influenza LAIV (Nasal) 05/14/2011,06/11/2009 Influenza, Split 05/28/2009 Influenza, Trivalent, Preser vative Free, Intramuscular 08/01/2014,05/24/2012 Influenza, Unspecified 05/02/2024(Deferr ed: Patient decision),09/12/2022(Deferred: Patient Refused),06/17/2021(Deferred: Patient Refused),06/11/2020(Deferred: Patient Refused),05/24/2013,05/20/2010 Influenza, Whole 07/07/2002 MMR 02/17/1998,02/17/1997 OPV 02/17/1998 PPD TEST 05/03/2008 Pneumococcal Polysaccharide PPV23 02/13/2020, TD Preservative Free 11/28/2022 Td, adsorbed 05/03/2008,12/18/1997 Typhoid H-P SQ/ID 05/24/2001 Typhoid Inactivated 04/15/2010,05/03/2008,2003 Yellow Fever 08/06/2004,08/06/2001 Surgical History Surgery Date Site/Laterality Comments APPENDECTOMY CHOLECYSTECTOMY COLON SURGERY WRIST FRACTURE SURGERY NASAL SEPTUM SURGERY 11/07/2020 Dr. Yousif Weston SEPTOPLASTY 11/07/2020 NASAL TURBINATE REDUCTION 11/07/2020 Medical History Medical History Date Comments Diabetes mellitus (HCC) Diverticulitis Colitis Insomnia Depression Ankle fracture, right Wrist fracture, left Family History Medical History Relation Name Comments Diabetes Father Father Heart disease Father Father No Known Problems Mother Relation Name Status Comments Father Father Mother Alive Social History Tobacco Use Types Packs/Day Years [...] PM CDT Sexual Orientation Not on file Obstetrics History Last Filed Vital Signs Vital Sign Reading Time Taken Comments Blood Pressure 124/82 08/08/2024 11:17 AM PLASMA CENTER NURSE Pulse 86 08/08/2024 11:17 AM PLASMA CENTER NURSE Temperature 36.7 ??C (98 ??F) 08/08/2024 11: 17 AM PLASMA CENTER NURSE Respiratory Rate 18 08/08/2024 11:1 7 AM PLASMA CENTER NURSE Oxygen Saturation 98% 08/08/2024 11: 17 AM PLASMA CENTER NURSE Inhaled Oxygen Concentration - - Weight 89.3 kg (196 lb 12.8 oz) 024 11:17 AM PLASMA CENTER NURSE Height 180.3 cm (5' 10.98 ) 08/08/2024 11:17 AM PLASMA CENTER NURSE Body Mass Index 27.46 08/08/2024 11:17 AM PLASMA CENTER NURSE Plan of Treatment Health Maintenance Due Date Last Done Comments Hepatitis C Screening 1969 Prostate Cancer Screening-PSA 1969 Dilated Eye Exam 1969 Lipid Panel 1969 Regular Well Visit/Exam 18-64 1987 Zoster Vaccine (1 of 2) 2019 Pneumococcal vaccine <65 (2 of 2 - PCV) 02/12/2021 02/13/2020, 01/12/2015 eGFR 09/02/2022 09/02/2021, 05/25, 06/17/2021 DTaP/Tdap/Td Vaccine (1 - Tdap) 11/29/2022 11/28/2022, 05/03/2008, 12/18/1997 Albumin Creatinine Ratio, Urine 05/05/2023 05/05/2022, 06/17/2021 Covid-19 Vaccine ( season) 2024 05/12/2021, 04/01/2021 Hemoglobin A1C 02/06/2025 08/08/2024, 04/2024, 01/08/2024, Additional history exists Influenza Vaccine (#1) 2025 4, 05/24/2013, 05/24/2012, Additional history exists Postponed from 04/24/2024 (Patient declined, but will receive in the future) Depression Screening 08/08/2025 08/08/2024, 05/02/2024, 01/08/2024, Additional history exists Foot Exam 08/08/2025 08/08/2024, 09/25, 06/23/2023, Additional history exists Colon Cancer Screening-Colonoscopy 05/09/2029 05/09/2024, 11/12/2020 Procedures Procedure Name Priority Date/Time Associated Diagnosis Comments SCAN - RADIOLOGY/IMAGING 08/27/2024 POCT HEMOGLOBIN A1C Routine 08/08/2024 1 1:33 AM PLASMA CENTER NURSE Type 2 diabetes mellitus with hyperglycemia, without long-term current use of insulin (HCC) COLONOSCOPY Routine 05/09/2024 7:50 AM CDT ALBUMIN CREATININE RATIO, URINE Routine 05/05/2022 9:04 AM CDT Type 2 diabetes mellitus with hyperglycemia, without long-term current use of insulin (CMS/HCC) (HCC) EGFR STAT 09/02/2021 9:48 AM PLASMA CENTER NURSE from Last 3 Months or Most Recently Relevant to Health Maintenance Results * SCAN - RADIOLOGY/IMAGING (08/27/2024) Anatomical Region Laterality Modality Other Provider Scanning Final Result * (ABNORMAL) POCT hemoglobin A1c (08/08/2024 11:33 AM PLASMA CENTER NURSE) Hemoglobin A1C, POC 7.0 4.0 - 5.6 % Blood 08/08/2024 11:3 3 AM PLASMA CENTER NURSE Nathan Martinez MD POINT OF CARE TEST ORDERAB LES Final Result * (ABNORMAL) Colonoscopy (05/09/2024 7:50 AM CDT) Anatomical Region Laterality Modality Other Historical Provider ENDOSCOPY PROCEDURES Marilee l Result * Albumin Creatinine Ratio, Urine (05/05/2022 9:04 AM CDT) Creatinine, ur 122 20 - 320 mg/dL [facility] Microalbumin, ur 1.1 See Note: mg/dL [facility] Comment: Reference Range: Reference Range Not established Microalbumin/creat ratio 9 <30 mcg/mg creat [facility] Comment: The ADA defines abnormalities in albumin excretion as follows: Albuminuria Category ?Result (mcg/mg creatinine) Normal to Mildly increased ?? <30 Moderately increased ? 30-299 Severely increased ? > OR = 300 The ADA recommends that at least two of three specimens collected within a 3-6 month period be abnormal before considering a patient to be within a diagnostic category. Urine 05/05/2022 9:04 AM CDT 05/05/2022 9:05 AM CDT Narrative [facility] - 05/06/2022 12:48 PM CDT FASTING:NO FASTING: NO Nathan Martinez MD LAB URINE ORDERABLES Final Result [facility] [id number] [id number] * eGFR (09/02/2021 9:48 AM PLASMA CENTER NURSE) [facility] Signature eGFR 91 mL/min/1. 73 m2 TERESA RAYMUNDO Comment: Interpretive Data Reference Interval Normal ?>/= 90 mL/min/1.73m2 Mildly decreased* ? 60 - 89 mL/min/1.73m2 Mildly to moderately decreased ?45 - 59 mL/min/1.73m2 Moderately to severely decreased ??30 - 44 mL/min/1.73m2 Severely decreased ?15 - 29 mL/min/1.73m2 Kidney Failure ?< 15 ??mL/min/1.73m2 *Relative to young adult level Estimated glomerular filtration rate is determined by the 2020 CKD-EPI equation recommended by the National Kidney Foundation (A Unifying Approach to GFR Estimation: Recommendations of the NKF-ASK Task Force on Reassessing the Inclusion of Race in Diagnosing Kidney Disease, JASN 2020). The CKD-EPI equation should not be used for patients with unstable renal function and has not been validated in children and those over 70. Current interpretive data was last reviewed 2021. Testing performed by: [facility], [address] [place] [address]., [id number] Blood 09/02/2021 9:48 AM PLASMA CENTER NURSE 09/02/2021 9:53 AM PLASMA CENTER NURSE us Jennifer MONTENEGRO LAB BLOOD ORDERABLE S Final Result [facility] RAYMUNDO [id number] [facility] Department [place] [address] from Last 3 Months or Most Recently Relevant to Health Maintenance Insurance [facility] CLAIMS 2003 [address] CLAIMS Member Subscriber Plan / Payer ( fective 2021-Present) Name:Erich Allen Relation to Subscriber:Self Name:AlejandroErich dang Stephanie Payer ID:[id number] (NAIC) Group ID:[id number] Type: Address: [place] [phone] Care Teams Wine Sales Representative Relationship Specialty Start Date End Date Nathan Martinez MD PCP - General Family Practice 09/10/20 Monique Garcia MD Referring Physician Gastroenterology 06/11/20 Monique Garcia MD Referring Physician Gastroenterology 06/11/20
--- OUTSIDE RECORDS SUMMARY | 2024-09-03 00:58 | XMS_ITS | Referral Summary ---
Author Organization [facility] Address [address] [place] [address] Care Team Providers Care Hr Systems Analyst Name Role Phone Monique Garcia MD Unavailable [phone] Monique Garcia MD Unavailable [phone] Nathan Martinez MD Primary Care Provider [phone] Encounters Date Type Department Care Team Description 09/01/2024 Telephone [facility] Medical [facility] [address] [place] [phone] Nathan Martinez MD Forms Request 08/27/2024 Orders Only [facility] Health Information Management [address] [place] [id number] Scanning, Provider 08/08/2024 11:00 AM WHIPPER BEATER Office Visit [facility] [address] [place] [phone] Nathan Martinez MD Type 2 diabetes mellitus with hyperglycemia, without long-term current use of insulin (HCC) (Primary Dx); Major depression in remission (HCC); Attention deficit hyperactivity disorder (ADHD), predominantly inattentive type; Mixed hyperlipidemia from Last 3 Months Allergies Active Allergy Reactions Criticality Noted Date [...] spine pain 09/25/2023 Controlled type 2 diabetes aidan cuadra without complication, without long-term current use of insulin ([facility]) 05/21/2023 Assessment & Plan (05/02/2024 3:03 PM CDT): A1c today. Continue glipizide/Ozempic at same dosage. A1c is higher. Increase Ozempic to 1 mg Assessment & Plan (10/15/2023 11:29 AM WHIPPER BEATER): A1c today . Continue glipizide/Trulicity at same [...] 09/12/2022 Assessment & Plan (09/12/2022 9:35 AM WHIPPER BEATER): Some tinnitus for 2 months. Possible hearing loss. Ear canals normal today drums normal ENT refer Lipidemia 09/11/2022 Assessment & Plan (08/05/2024 2:15 PM WHIPPER BEATER): Continue atorvastatin same dosage. Needs repeat lipid Assessment & Plan (05/01/2024 12:22 PM CDT): Needs repeat lipids. Continue atorvastatin at same dose. Assessment & Plan (01/07/2024 4:08 PM CDT): Continue atorvastatin same dosage but needs repeat lipids. Assessment & Plan (10/15/2023 11:35 AM WHIPPER BEATER): Continue atorvastatin at same dosage. Well controlled. Assessment & Plan (06/23/2023 2:03 PM CDT): Continue Lipitor same dosage but needs repeat lipids. Assessment & Plan (01/15/2023 1:58 PM CDT): Continue atorvastatin same dosage but needs repeat lipids Assessment & Plan (09/11/2022 3:45 PM WHIPPER BEATER): Continue atorvastatin same dosage Acute left ankle [...] counseling. Assessment & Plan (10/15/2023 12:07 PM WHIPPER BEATER): Diabetic foot exam: Left monofilament exam: normal [...] surgeon Assessment & Plan (09/02/2021 8:59 AM WHIPPER BEATER): Pain most recently is in the right [...] 09/02/2021 Assessment & Plan (09/02/2021 9:00 AM WHIPPER BEATER): Refer to Dermatology Chronic abdominal pain 08/30/2021 Assessment & Plan (05/02/2024 3:02 PM CDT): History of multiple adhesions and several times he has had to had bowel obstruction treated. Constant pain. Worse about 30 minutes after eating. Referral to GI. Left lower quadrant Assessment & Plan (09/16/2021 9:44 AM WHIPPER BEATER): Try peppermint oil pill daily. Discontinue Levbid. Refer to GI. Needs colonoscopy. Assessment & Plan (09/02/2021 8:59 AM WHIPPER BEATER): Previous pain is similar to this pain [...] 10/08/2020 Assessment & Plan (08/05/2024 2:14 PM WHIPPER BEATER): Continue Provigil at same dosage. Well controlled. Return 3 months Assessment & Plan (05/01/2024 12:20 PM CDT): Continue Provigil at same dosage. Well controlled. Return 3 months Assessment & Plan (01/07/2024 4:03 PM CDT): Continue Provigil at same dosage. Well controlled. Assessment & Plan (10/16/2023 1:08 PM WHIPPER BEATER): Takes Provigil off-label. Adequate control with medicine. [...] usage. Assessment & Plan (09/13/2021 9:27 AM WHIPPER BEATER): Continue modafinil at same dosage. Well controlled. No signs of toxicity and patient understands this is off-label treatment Assessment & Plan (08/30/2021 7:27 AM WHIPPER BEATER): Allow modafinil as no evidence of toxicity and evidence of benefit Assessment & Plan (06/11/2021 1:30 PM CDT): Continue Provigil at same dosage. Well controlled. Assessment & Plan (02/08/2021 10:32 AM CDT): Continue modafinil at same dosage. Well controlled. Assessment & Plan (11/09/2020 1:42 PM CDT): Allow modafinil but understands off-label Assessment & Plan (10/08/2020 10:45 AM WHIPPER BEATER): Previously diagnosed with this by psychiatrist at [facility]. good response previously to modafinil but I [...] PFTs Assessment & Plan (10/08/2020 10:46 AM WHIPPER BEATER): Much improved Assessment & Plan (09/10/2020 10:03 AM WHIPPER BEATER): Mainly with exertion and will refer to [...] disease Assessment & Plan (10/08/2020 10:45 AM WHIPPER BEATER): Much improved Assessment & Plan (09/10/2020 9:58 AM WHIPPER BEATER): Persisting cough and will refer to Pulmonary for Rash 09/10/2020 Assessment & Plan (10/08/2020 10:45 AM WHIPPER BEATER): Much improved Assessment & Plan (09/10/2020 10:02 AM WHIPPER BEATER): There is a dry Pash of eczematoid type rash on his back that is different than psoriasis he has other areas. We will give him some topical hydrocortisone cream but not to use longer than 2 weeks as risk of atrophy and tolerance. Nasal polyp 09/10/2020 Assessment & Plan (09/10/2020 10:07 AM WHIPPER BEATER): ENT referral Anemia 09/09/2020 Assessment & Plan (09/09/2020 1:03 PM WHIPPER BEATER): Needs iron studies and methylmalonic acid level. Needs to have colonoscopy done. Type 2 diabetes mellitus wit h hyperglycemia, without long-term current use of insulin 06/08/2020 Assessment & Plan (08/08/2024 11:33 AM WHIPPER BEATER): A1c today. Is improved at 7.0. Continue [...] controlled. Assessment & Plan (09/11/2022 3:47 PM WHIPPER BEATER): A1C TODAY.BMI Follow-up includes: nutrition counseling and [...] weekly Assessment & Plan (09/16/2021 9:43 AM WHIPPER BEATER): A1c today. Diabetes needing better control. No hypoglycemic symptoms. Metformin, Jardiance, and glipizide daily. No significant improvement and will add Trulicity 0.75 mg weekly Assessment & Plan (08/30/2021 7:25 AM WHIPPER BEATER): A1c today. Assessment & Plan (06/17/2021 10:38 [...] today. Assessment & Plan (10/08/2020 10:42 AM WHIPPER BEATER): Check fasting blood sugar today. Result is 415 no he has had better sugars at home. No hypoglycemic symptoms will increase Jardiance to 25 mg daily as he has had no side effects. Assessment & Plan (09/10/2020 9:58 AM WHIPPER BEATER): Needs better control. Medication options discussed. Risk [...] controlled. Assessment & Plan (10/15/2023 11:36 AM WHIPPER BEATER): Continue trazodone at same dosage. Well controlled. Assessment & Plan (06/23/2023 2:04 PM CDT): Continue trazodone same dosage. Well controlled. Assessment & Plan (01/15/2023 1:59 PM CDT): Continue trazodone at same dosage. Well controlled. Assessment & Plan (09/11/2022 3:44 PM WHIPPER BEATER): Continue trazodone Assessment & Plan (05/02/2022 11:04 AM CDT): Continue trazodone at same dosage. Well controlled. Assessment & Plan (12/13/2021 9:57 AM CDT): Continue trazodone at same dosage. Well controlled. Assessment & Plan (08/30/2021 7:26 AM WHIPPER BEATER): Continue trazodone at same dosage. Well controlled. Assessment & Plan (06/11/2021 1:30 PM CDT): Continue trazodone at same dosage. Well controlled. Assessment & Plan (02/08/2021 10:36 AM CDT): Continue trazodone at same dosage. Well controlled. Assessment & Plan (10/08/2020 10:31 AM WHIPPER BEATER): Improved. Continue trazodone 100 mg Assessment & Plan (09/10/2020 10:00 AM WHIPPER BEATER): Increase trazodone to 100 mg needs better control Assessment & Plan (06/08/2020 10:30 AM CDT): Continue medication at same dosage. Well controlled. Major depression in remission 06/08/2020 Assessment & Plan (08/05/2024 2:13 PM WHIPPER BEATER): Continue Lexapro at same dosage. Well controlled. Assessment & Plan (05/01/2024 12:21 PM CDT): Continue Lexapro at same dosage. Well controlled. Assessment & Plan (01/07/2024 4:04 PM CDT): Continue Lexapro at same dosage. Well controlled. Assessment & Plan (10/15/2023 11:35 AM WHIPPER BEATER): Continue Lexapro at same dosage. Well controlled. Assessment & Plan (06/23/2023 2:07 PM CDT): Continue Lexapro at same dosage. Well controlled. Assessment & Plan (01/15/2023 2:00 PM CDT): Continue Lexapro at same dosage. Well controlled. Assessment & Plan (09/11/2022 3:44 PM WHIPPER BEATER): Continue Lexapro at same dosage. Well controlled. Assessment & Plan (05/02/2022 11:00 AM CDT): Continue Lexapro at same dosage. Well controlled. Assessment & Plan (12/13/2021 9:57 AM CDT): Continue Lexapro at same dosage. Well controlled. Assessment & Plan (08/30/2021 7:26 AM WHIPPER BEATER): Continue Lexapro at same dosage. Well controlled. Assessment & Plan (06/11/2021 1:30 PM CDT): Continue Lexapro at same dosage. Well controlled. Assessment & Plan (02/08/2021 10:33 AM CDT): Continue Lexapro at same dosage. Well controlled. Assessment & Plan (11/09/2020 1:42 PM CDT): Continue Lexapro at same dosage. Well controlled. Assessment & Plan (09/09/2020 1:01 PM WHIPPER BEATER): Continue medication at same dosage. Well controlled. [...] history of colon resection because of diverticulitis Immunizations Name Administration Dates Next Due H1N1 [...] 05/24/2001 Typhoid Inactivated 04/15/2010,05/03/2008,2003 Yellow Fever 08/06/2004,08/06/2001 Social History Tobacco Use Types Packs/Day Years [...] PM CDT Sexual Orientation Not on file Last Filed Vital Signs Vital Sign Reading Time Taken Comments Blood Pressure 124/82 08/08/2024 11:17 AM WHIPPER BEATER Pulse 86 08/08/2024 11:17 AM WHIPPER BEATER Temperature 36.7 ??C (98 ??F) 08/08/2024 11: 17 AM WHIPPER BEATER Respiratory Rate 18 08/08/2024 11:1 7 AM WHIPPER BEATER Oxygen Saturation 98% 08/08/2024 11: 17 AM WHIPPER BEATER Inhaled Oxygen Concentration - - Weight 89.3 kg (196 lb 12.8 oz) 024 11:17 AM WHIPPER BEATER Height 180.3 cm (5' 10.98 ) 08/08/2024 11:17 AM WHIPPER BEATER Body Mass Index 27.46 08/08/2024 11:17 AM WHIPPER BEATER Plan of Treatment Not on file Procedures Procedure Name Priority Date/Time Associated Diagnosis Comments SCAN - RADIOLOGY/IMAGING 08/27/2024 POCT HEMOGLOBIN A1C Routine 08/08/2024 1 1:33 AM WHIPPER BEATER Type 2 diabetes mellitus with hyperglycemia, without long-term current use of insulin (HCC) COLONOSCOPY Routine 05/09/2024 7:50 AM CDT ALBUMIN CREATININE RATIO, URINE Routine 05/05/2022 9:04 AM CDT Type 2 diabetes mellitus with hyperglycemia, without long-term current use of insulin ([facility]/HCC) (HCC) EGFR STAT 09/02/2021 9:48 AM WHIPPER BEATER from Last 3 Months or Most Recently Relevant to Health Maintenance Results * SCAN - RADIOLOGY/IMAGING (08/27/2024) Anatomical Region Laterality Modality Other Provider Scanning Final Result * (ABNORMAL) POCT hemoglobin A1c (08/08/2024 11:33 AM WHIPPER BEATER) Hemoglobin A1C, POC 7.0 4.0 - 5.6 % Blood 08/08/2024 11:3 3 AM WHIPPER BEATER Nathan Martinez MD POINT OF CARE TEST [...] MD LAB URINE ORDERABLES Final Result [facility] [id number] [place] [id number] * eGFR (09/02/2021 9:48 AM WHIPPER BEATER) eGFR 91 mL/min/1. 73 m2 TERESA RAYMUNDO [...] was last reviewed 2021. Testing performed by: [facility], [address] [place] [address]., [address] Blood 09/02/2021 9:48 AM WHIPPER BEATER 09/02/2021 9:53 AM WHIPPER BEATER us Jennifer MONTENEGRO LAB BLOOD ORDERABLE S Final Result TERESA RAYMUNDO [address] [facility] Department [place] [address] from Last 3 Months or Most Recently Relevant to Health Maintenance Insurance [address] CLAIMS Member Subscriber Plan / Payer (Ef fective 2020-Present) Name:Erich Allen Relation to Subscriber:Self Name:Alejandro Erich Stephanie Payer ID:[id number] (NAIC) Group ID:Not on file Type: Address: [place] [phone] CLAIMS Member Subscriber Plan / Payer ( fective 2020-Present) Name:Erich Allen Relation to Subscriber:Self Name:Erich Allen Payer ID:[id number] (NAIC) Group ID:[id number] Type: Address: [place] [phone] CLAIMS Member Subscriber Plan / Payer ( fective 2021-Present) Name:Erich Allen Relation to Subscriber:Self Name:Erich Allen Payer ID:[id number] (NAIC) Group ID:[id number] Type: Address: [place] [phone] Care Teams Hr Systems Analyst Relationship Specialty Start Date End Date Nathan Martinez MD PCP - General Family Practice 09/10/20 Monique Garcia MD Referring Physician Gastroenterology 06/11/20 Monique Garcia MD Referring Physician Gastroenterology 06/11/20
--- OUTSIDE RECORDS SUMMARY | 2024-09-03 00:58 | XMS_ITS | Clinical Summary ---
Author Organization [facility] Address [address] [place] [address] Care Team Providers Care Manager Ccu Name Role Phone Unavailable Primary Care Provider Unavailabl e Source Comments [facility],non-owned Affiliates and Associated Physician Practices is amultiple site organization consisting of ambulatory clinics and hospital sitesin [place], [place], [place] and [place]. This disclosure is being madepursuant to the Care Everywhere program and may not contain all information available regarding this patient. Last updated 18.[facility] Allergies No known active allergies Medications * [...] Mass Index 29.74 01/10/2015 9:16 PM CDT Plan of Treatment Health Maintenance Due Date Last Done Comments COLOGUARD (AGES 45-75) - COL ON CA SCREENING 1969 COLON MONITORING 1969 COLONOSCOPY - COLON CA SCREENING 1969 CT COLONOGRAPHY - COLON CA SCREENING 1969 Colorectal Cancer Screening 1969 FIT - COLON CA SCREENING 1969 FLEX SIG - COLON CA SCREENING 1969 LIPID TESTING 1969 HIV SCREENING 02/16/1984 HEPATITIS C SCREENING 02/11/1987 DTAP/TDAP/TD VACCINES (1 - Tdap) 02/16/1988 HEPATITIS B VACCINE (1 of 3 - 19+ 3-dose series) 02/16/1988 ZOSTER VACCINE (1 of 2) 2019 DEPRESSION SCREENING 08/24/2023 COVID-19 VACCINE (1 - 2023-2 5 season) 2024 INFLUENZA VACCINE (#1) 2024 PNEUMOCOCCAL VACCINE Aged Out 01/12/2015 No long er eligible based on patient's age to complete this topic HIB VACCINE Aged Out No longer eligi ble based on patient's age to complete this topic HPV VACCINE Aged Out No longer eligi ble based on patient's age to complete this topic MENINGOCOCCAL VACCINE Aged Out No marcelle jackie eligible based on patient's age to complete this topic Advance Directives * Full Code (Latest Code Status on File) Date Activated Date Inactivated Comments 01/10/2015 10:22 PM 01/12/2015 5:26 PM
--- OUTSIDE RECORDS SUMMARY | 2024-09-03 00:58 | XMS_ITS | Encounter Summary ---
Author Organization [facility] Address [address] [place], [place] [address] [address] Care Team Providers Care Millinery Copyist Name Role Phone Unavailable Primary Care Provider Unavailabl e Reason for Visit * Auth/Cert Specialty Diagnoses / Procedures Referred By Hugo dang Referred To Contact Inpatient Care Diagnoses small bowel obstruction Sjw [address] [place] [id number] Referral ID Status Reason Start Date Expiration Date Visits Re quested Visits Authorized [id number] 01/11/2015 07/10/2015 1 Encounter Details Date Type Department Care Team (Late st Contact Info) Description 01/10/2015 9:10 PM CDT - 01/12/2015 4:25 PM CDT Hospital Encounter [address] [address] [place] [address] [facility] [address] [place] [address] Claire Moody MD [address] [place] [address] Medical Outpatient Discharge Disposition: Home or Self Care Social History Tobacco Use Types Packs/Day Years [...] Mass Index 29.74 01/10/2015 9:16 PM CDT documented in this encounter Functional Status Functional Status Response Date of [...] person have difficulty concentrating/remembering/making decisions? No 01/10/2015 documented as of this encounter Discharge Summaries * Angeles Jay APRN-CNP - 01/12/2015 3:22 PM CDT Physician Discharge Summary Admit date: 01/10/2015 Discharge date: 01/12/2015 Admitting Physician: Alessia Perrin MD Attending Physician: Claire Moody MD Discharge Physician: RADHA Vides Name: Erich Allen Admission Diagnosis: SBO, GI, DM, HTN Discharge DiagnosesSBO, GI, DM, HTN Consults General surgery GI Diagnostic Studies Recent Labs Component Name 01/12/15 0555 01/11/15 0520 01/10/15 1416 WBC 4.0* 4.2* 5.3 HGB 13.1 12.9 14.2 HCT 40.1 39.5 42.3 PLTCOUNT 210 210 255 Recent Labs Component Name 01/12/15 0555 01/11/15 0520 SODIUM 134* 136 POTASSIUM 3.7 3.8 CHLORIDE 99 102 CO2 27 26 BUN 8 8 CREATININE 0.83 1.00 GLUCOSE 158* 126* CALCIUM 8.8 8.3* Recent Labs Component Name 01/11/15 0520 01/10/15 1419 ALBUMIN 3.4 4.2 ALKPHOS 74 94 ALT 54 66 AST 26 30 TBIL 0.6 0.4 DBIL -- <0.[address] Abdomen And Pelvis With Iv Contrast 01/10/2015 CT abdomen and pelvis: HISTORY: Left-sided pain and cramping with watery diarrhea containing bright red blood, colon surgery 3 months ago for diverticulitis. Prior cholecystectomy, appendectomy, partial colectomy. CT examination of the abdomen and pelvis was performed on 01/10/2015 following oral and IV contrast (Omnipaque, 125 mL). Coronal reconstructions were also obtained. No relevantprior study is available. There is minimal dependent [...] abdomen. The appearance suggests a mild partial smallbowel obstruction which is suspected to be related [...] enlarged adenopathy is seen in the pelvis. 01/10/2015 Mild prominence of several of the mid and proximal small bowel loops to a point of relatively rapid transition to normal caliber small bowel loops in the midportion of the abdomen. The appearance suggests a mild partial small bowel obstruction which is suspected to be related to adhesionssince no focal mass is identified. Operative changes are seen in the right lower quadrant with mildscattered colonic diverticulosis noted elsewhere. A small fat-containing umbilical hernia is also noted. Cholecystectomy and appendectomy. Moderate diffuse fatty infiltration involving the liver. Minimal atelectasis of the lung bases. No other abnormality identified. Xr Abd Obstr Series 01/11/2015 Abdomen 2 views: HISTORY: Left-sided pain since yesterday. History of prior bowel surgery. Two views of the abdomen were obtained on 01/11/2015. No relevant prior study is available. Operative changes are noted in the lower left abdomen and pelvis. Oral contrast material is seen in the colon. The bowel gas pattern is otherwise unremarkable with a mild amount of fecal material in the colon. There is no intramural or free intraperitoneal air identified. No abnormal calcifications are seen. 01/11/2015 No acute abnormality identified. Treatments See hospital course Procedures See hospital course Discharge day Exam Vitals: 01/11/15 2120 01/12/15 0338 01/12/15 0932 01/12/15 1311 BP: 129/93 119/71 119/79 121/84 Pulse: 84 79 67 76 Temp: 98.3 ??F 97.9 ??F 97.8 ??F 97.5 ??F Resp: 18 18 18 18 Weight: SpO2: 96% 95% 97% 99% General appearance: alert, cooperative, no distress Chest: no tenderness Lungs: breath sounds normal and symmetric; no rales or wheezes Heart: regular rhythm, normal S1 and S2, without murmurs, gallops or rubs Abdomen: soft without mass, non-tender, with normal bowel sounds Extremities: no clubbing, cyanosis or edema Neurologic: mental status normal; alert and oriented X 3; Motor/Sensory exam grossly normal Hospital Course Mr. Erich Allen was admitted on 01/10 after he c/o sharp pain on LLQ abd. Pt also had watery diarrha with bright red stool x 3. Pt's pain and nausea was controlled with IV dialudid and zofran. X-ray showed no obstruction. Gi evaluated pt's rectal bleeding; most likely due to hemorroid. Pt able to tole rate low residue diet. Pt stated that he can tolerate pain, and agreed to be discharged. Metformin resumed on the day of discharge. Condition at discharge: Fair Disposition: Home Code Status At Discharge: Full Code Patient Instructions Discharge Medication List START taking these medications Instructions Authorizing Provider acetaminophen 650 MG suppository Commonly known as: TYLENOL Insert 1 Suppository into the rectum 4 times daily as needed. Angeles Jay CONTINUE taking these medications Instructions Authorizing Provider hydrOXYzine pamoate 25 MG capsule Commonly known as: VISTARIL Take 25 mg by mouth 3 times daily. lisinopril 10 MG tablet Commonly known as: PRINIVIL; ZESTRIL Take 10 mg by mouth once daily. metFORMIN 500 MG tablet Commonly known as: GLUCOPHAGE Take 500 mg by mouth 2 times daily with morning and evening meal. STOP taking these medications IMODIUM A-D 2 MG Tabs tablet Generic drug: Loperamide Discharge Procedure Orders Why you were hospitalized Order Specific Question Answer Comments Your discharge diagnosis is Small bowel obstruction [821152] Diabetic diet -- Limit your calories to 1800 calories per day. Low residue diet Activity as tolerated Rest today, and increase your activity level tomorrow as tolerated. Follow up with provider Order Specific Question Answer Comments Follow Up Instructions: Please follow up with your doctor at [facility]. Discharge time: greater than 30 minutes. CC: No primary provider on file. None None documented in this encounter Medications at Time [...] times daily with morning and evening meal. documented as of this encounter Progress Notes * Giuseppe Espinoza MD - 01/12/2015 12:43 PM CDT GI PROGRESS NOTE Admit Date: 01/10/2015 9:10 PM Hospital Day: 2 Clinical Course Overall patient has slightly improved since my last note. He states that his pain has improved to 4/10 in severity. He had some nausea this morning but no emesis. He is passing flatus but no BM today. New Symptoms Patient has no new symptoms Data Vitals: 01/11/15 1556 01/11/15 2120 01/12/15 0338 01/12/15 0932 BP: 131/92 129/93 119/71 119/79 Pulse: 78 84 79 67 Temp: 97.6 ??F 98.3 ??F 97.9 ??F 97.8 ??F Resp: Weight: SpO2: 95% 96% 95% 97% Intake/Output Summary (Last 24 hours) at 01/12/15 1244 Last data filed at 01/12/15 0327 Gross per 24 hour Intake 2302 ml Output 300 ml Net 2002 ml My review of labs, imaging, notes and other tests shows no new significant findings. Recent Labs Component Name 01/12/15 0555 01/11/15 0520 CREATININE 0.83 1.00 BUN 8 8 SODIUM 134* 136 POTASSIUM 3.7 3.8 Recent Labs Component Name 01/12/15 0555 01/11/15 0520 01/10/15 1416 WBC 4.0* 4.2* 5.3 HGB 13.1 12.9 14.2 PLTCOUNT 210 210 255 MCV 75.0* 75.0* 72.9* INR -- 1.1 -- Recent Labs Component Name 01/11/15 0520 01/10/15 1419 AST 26 30 ALT 54 66 ALKPHOS 74 94 TBIL 0.6 0.4 LIPASE -- 146 No results for input(s): FERRITIN, IRON in the last 33258 hours. Invalid input(s): SATURATION Current Medications insulin aspart (novoLOG) pen 0-6 Units, Subcutaneous, TID WC lisinopril (PRINIVIL;ZESTRIL) tablet 10 mg, Oral, QDAY pantoprazole (PROTONIX) injection 40 mg, Intravenous, QDAY [COMPLETED] pneumococcal vaccine polyvalent 23 (PNU-IMUNE;PNEUMOVAX) injection 0.5 mL, Intramuscular, Immunization - Once 0.9% NaCl infusion, Intravenous, Continuous Exam General appearance: alert, cooperative, no distress Heent: MMM, anicteric sclera Heart: regular rhythm, normal S1 and S2, without murmurs, rubs or gallops Lungs: breath sounds normal and symmetric; no rales or wheezes Abdomen: soft without mass, mild left sided tenderness, with normal bowel sounds Extremities: no edema Neuro: no focal deficits Assessment 1. SBO (small bowel obstruction) Plan: 1. pSBO Symptoms continue to improve Labs are normal Advance diet as tolerated Encourage ambulation Home soon when tolerating a low residue diet and when pain is controlled [facility]. The risks and benefits of my recommendations, as well as other treatment options were discussed with the patient and today. Questions were answered. Giuseppe Espinoza MD * Ton Shankar DO - 01/12/2015 7:28 AM CDT Admit Date: 01/10/2015 9:10 PM Hospital Day: 2 Clinical Course Overall patient has slightly improved and is passing gas since my last note. No further diarrhea. Tolerating clear liquids New Symptoms Patient has no new symptoms Data Vitals: 01/11/15 1141 01/11/15 1556 01/11/15 2120 01/12/15 0338 BP: 124/83 131/92 129/93 119/71 Pulse: 70 78 84 79 Temp: 98 ??F 97.6 ??F 98.3 ??F 97.9 ??F Resp: 18 20 18 18 Weight: SpO2: 99% 95% 96% 95% Intake/Output Summary (Last 24 hours) at 01/12/15 0729 Last data filed at 01/12/15 0327 Gross per 24 hour Intake 3217 ml Output 1200 ml Net 2017 ml My review of labs, imaging, notes and other tests is significant for Recent Labs Component Name 01/12/15 0555 01/11/15 0520 01/10/15 1416 WBC 4.0* 4.2* 5.3 HGB 13.1 12.9 14.2 HCT 40.1 39.5 42.3 PLTCOUNT 210 210 255 Exam General appearance: alert, cooperative, no distress Lungs: no rales or wheezes Heart: regular rhythm Abdomen: soft, minimal diffuse tenderness. No guarding or rebound Extremities: no calf tenderness Assessment and Plan 1. SBO (small bowel obstruction) (Principal) - improved No indication for surgical intervention at this time Advance diet and discharge at discretion of attending physician * Patricia Gomez RN - 01/11/2015 5:27 PM CDT Shift summary Pt rested in bed most of day. He complains of moderate pain and nausea. Dilaudid given as ordered and brings pain down to tolerable level. He has not had a bm today. Voiding ok. Vss. Tolerating clearliquids. Will continue to monitor. * Claire Moody MD - 01/11/2015 4:01 PM CDT Internal Medicine Progress Note - [facility] Hospitalist Admit Date: 01/10/2015 9:10 PM Hospital Day: 1 Clinical Course Abd pain slightly better. Nausea but no emesis. New Symptoms Patient denies chest pain, shortness of breath, abdominal pain, nausea, vomiting, diarrhea, constipation, urinary problems or leg pain. Data Vitals: 01/11/15 0419 01/11/15 0825 01/11/15 1141 01/11/15 1556 BP: 121/81 126/88 124/83 131/92 Pulse: 70 70 70 78 Temp: 98.1 ??F 98 ??F 98 ??F 97.6 ??F Resp: 18 18 18 20 Weight: SpO2: 98% 100% 99% 95% Intake/Output Summary (Last 24 hours) at 01/11/15 1601 Last data filed at 01/11/15 1158 Gross per 24 hour Intake 915 ml Output 900 ml Net 15 ml Recent Labs Component Name 01/11/15 0520 SODIUM 136 POTASSIUM 3.8 BUN 8 CREATININE 1.00 GLUCOSE 126* Recent Labs Component Name 01/11/15 0520 01/10/15 1416 WBC 4.2* 5.3 HGB 12.9 14.2 HCT 39.5 42.3 PLTCOUNT 210 255 Medications: insulin aspart (novoLOG) pen 0-6 Units, Subcutaneous, TID WC pantoprazole (PROTONIX) injection 40 mg, Intravenous, QDAY [START ON 01/12/2015] pneumococcal vaccine polyvalent 23 (PNU-IMUNE;PNEUMOVAX) injection 0.5 mL, Intramuscular, Immunization - Once HYDROmorphone; acetaminophen; ondansetron OR metoclopramide; dextrose (Diabetic Use) OR dextrose OR glucagon Exam General appearance: alert, cooperative, no acute distress Heart: regular rhythm, normal S1 and S2, without murmurs, rubs or gallops Lungs: breath sounds normal and symmetric; no rales or wheezes Abdomen: soft without mass, diffuse tenderness, with normal bowel sounds Extremities: no clubbing, cyanosis or edema Assessment and Plan Abdominal pain: - SBFT with no obvious obstruction - Advance diet to clear liquids - Appreciate surgical input - GI consultation - Symptomatic treatment - requested records from [facility] ? GI Bleed per pt: FOBT negative. H/H stable. Monitor. DM -accuchecks and SSI -holding metformin Htn- BP stable. DVT Prophylaxis - SCDs Due to medical issues in the assessment and plan, continued hospitalization will be required. * Andi Kowalski PharmD - 01/11/2015 11:45 AM CDT I have reviewed patient's home med list with the patient The medication list is completed and ready for review/order by physician. Thank you for the opportunity to see this patient. Andi Kowalski PHARMD * Vernell Saini RN - 01/11/2015 11:26 AM CDT Case Management Initial Assessment Case Management screen completed, welcome letter given. Met with patient/so Lives with: +Significant Other Family Support (name and phone): Extended Emergency Contact Information Primary Emergency Contact: Laura Allen [address]: [address] [place] [address] of [place] Relation: Mother Anticipated Discharge Date: Anticipated Discharge Date: 01/15/15 Anticipated level of care / disposition at discharge: *Home Prior Level of Functioning: Independent Equipment at Home: none Additional Equipment needed at home (does not have at home now): PCP: No primary provider on file. If no PCP, action taken: [place] [facility] Discharge Medications Needs: None SW Referral: no If patient requires HHC at discharge, he/she requests: NA Transportation at discharge: Family Comments: Met with patient @ bedside to discuss discharge plan/role of CM. Anticipate patient's return home @ discharge when medical clearance received. No additional discharge needs identified or expressed @ present time. parts manager to continue to follow to determine optimal discharge plan for patient's individual discharge needs. Transport home to be arranged with family. Will continue to follow. For any questions or needs please contact: Cinder Pitman Name/Phone number: Vernell Saini RN # [phone] * Anna Dubose RN - 01/11/2015 4:49 AM CDT Pt was a direct admit from [facility] ER. Alert and oriented x4. C/o abdominal pain which is mostly on the left side. PRN dilaudid given as ordered. Pt has been NPO since midnight. Denies nausea, vomiting or diarrhea. VSS. Will continue to monitor. documented in this encounter H&P Notes * Virginie Weathers, WATER [employer]AX[employer] CAPTAIN-RECYCLING SPECIALIST - 01/10/2015 10:26 PM CDT Internal Medicine History and Physical - [facility] Hospitalist Patient's Primary Care Physician: No primary provider on file. Name: Erich Allen Age: 44 y.o. Sex: male Admit Date:01/10/2015 Chief Complaint Patient presents with ??? Pain Abdominal States he has had a colon resection 3 months ago for diverticulitis, this morning apporx 0800 LLQ pain and watery diarrhea with bright red blood, three stools. Took 2 tabs of imodium today at 0930. At this time LLQ pain a constant sharp cramping a 8 , mild nausea, no emesis. ??? 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 Associated sxs of nausea and diarrhea with 3 episodes of BRBPR though pt notes it was very small amounts. Pt denies fever, headache, vision disturbance, chest pain, diaphoresis, sob, vomiting, urinary sxs, hematuria. Pt went to [place] ED and CT scan showed a partial SBO so pt was transferred here as a direct admit for further workup and consult with Dr. Shankar. Pt had colectomy 09/12/14 secondary to Diverticulitis at [facility] in [place]. Pt denies any problems with surgery or postop. Review of Systems Constitutional: negative HENT: negative Eyes: negative Respiratory: negative Cardiovascular: negative Gastrointestinal: Positive for LLQ abdominal pain, nausea, diarrhea, small blood in stool x 3 Genitourinary: negative Musculoskeletal: negative Skin: negative Neurological: negative Endo/Heme/Allergies: negative Psychiatric/Behavioral: negative All other systems reviewed and are negative. Past Medical History Diagnosis Date ??? PTSD (post-traumatic stress disorder) ??? Diverticulitis of colon ??? DM (diabetes mellitus) ??? Depressive disorder, not elsewhere classified ??? H/O colectomy Past medical history, past surgical history, allergies, home medications, social history and familyhistory available in chart were reviewed. History Social History ??? Marital Status: Spouse Name: N/A Number of Children: N/A ??? Years of Education: N/A Social History Main Topics ??? Smoking status: Never Smoker ??? Smokeless tobacco: Current User Types: Snuff ??? Alcohol Use: Yes Comment: monthly social ??? Drug Use: No ??? Sexual Activity: Not on file Other Topics Concern ??? Not on file Social History Narrative Past Surgical History Procedure Laterality Date ??? Colectomy 09/2014 V/A [facility] ??? Appendectomy ??? Cholecystectomy ??? Endoscopy, colon, diagnostic Medications: Prescriptions prior to admission Medication Sig Dispense Refill ??? hydrOXYzine pamoate (VISTARIL) 25 MG capsule Take 25 mg by mouth 3 times daily. ??? lisinopril (PRINIVIL; ZESTRIL) 10 MG tablet Take 10 mg by mouth once daily. ??? Loperamide (IMODIUM A-D) 2 MG TABS tablet Take 4 mg by mouth 3 times daily as needed for Diarrhea. ??? metFORMIN (GLUCOPHAGE) 500 MG tablet Take 500 mg by mouth 2 times daily with morning and evening meal. ??? clonazePAM (KLONOPIN) 0.5 MG tablet Take 0.5 mg by mouth at bedtime. Allergies: Review of patient's allergies indicates no known allergies. Family Hx: No family history on file. Exam Vitals: 01/10/15 2116 BP: 141/90 Pulse: 65 Temp: 98.7 ??F Resp: 16 Weight: 96.707 kg (213 lb 3.2 oz) SpO2: 96% Vitals reviewed. Exam General Patient is alert, cooperative with exam, mild distress Head Normocephalic, atraumatic Eyes sclera and conjunctiva clear, lids normal Throat OP clear, no mucous membrane abnormalities Neck ROM is intact, no masses, thyroid not enlarged, no adenopathy Nodes no cervical, axillary or inguinal adenopathy Back no deformity or tenderness, atraumatic Chest no tenderness or deformity, atraumatic Heart Regular rate and rhythm, normal S1 and S2, without murmurs, gallops, rubs or clicks Circulation Carotid and pedal pulses are intact and symmetrical, no carotid bruits Lungs breath sounds normal and symmetric; no rales or wheezes Abdomen soft without mass, TTP diffusely but mainly LLQ, slight distention diffusely, with normal bowel sounds Extremities no clubbing, cyanosis or edema Joint ranges of motion normal Skin no rashes or other abnormalities are noted Neurologic Awake, alert and oriented. Moving all four extremities. Data Recent Labs Component Name 01/10/15 1416 WBC 5.3 HGB 14.2 HCT 42.3 PLTCOUNT 255 Recent Labs Component Name 01/10/15 1419 ALBUMIN 4.2 ALKPHOS 94 ALT 66 AST 30 TBIL 0.4 TPROT 7.8 Recent Labs Component Name 01/10/15 1522 COLORUA Yellow SPECGRAVUA 1.020 PHUA 6.0 PROTEINUA Negative BLOODUA Negative LEUKOCYTEUA Negative NITRITEUA Negative GLUCOSEUA Negative KETONEUA Negative BILIRUBINUA Negative UROBILINUA 0.2 Recent Labs Component Name 01/10/[address] Abdomen And Pelvis With Iv Contrast 01/10/2015 CT abdomen and pelvis: HISTORY: Left-sided pain and cramping with watery diarrhea containing bright red blood, colon surgery 3 months ago for diverticulitis. Prior cholecystectomy, appendectomy, partial colectomy. CT examination of the abdomen and pelvis was performed on 01/10/2015 following oral and IV contrast (Omnipaque, 125 mL). Coronal reconstructions were also obtained. No relevantprior study is available. There is minimal dependent [...] abdomen. The appearance suggests a mild partial smallbowel obstruction which is suspected to be related [...] enlarged adenopathy is seen in the pelvis. 01/10/2015 Mild prominence of several of the mid and proximal small bowel loops to a point of relatively rapid transition to normal caliber small bowel loops in the midportion of the abdomen. The appearance suggests a mild partial small bowel obstruction which is suspected to be related to adhesionssince no focal mass is identified. Operative changes are seen in the right lower quadrant with mildscattered colonic diverticulosis noted elsewhere. A small fat-containing umbilical hernia is also noted. Cholecystectomy and appendectomy. Moderate diffuse fatty infiltration involving the liver. Minimal atelectasis of the lung bases. No other abnormality identified. Assessment and Plan SBO -partial obstruction per CT today -Dr. Shankar consulted for general surgery -NPO, IV fluids -protonix IVP daily -IV pain meds and nausea meds prn -obstructive series in am -hemoccult (neg at [facility]) -requested records from [facility] GI Bleed -pt notes small amounts, possible hemorrhoid? Hemoccult neg x one. -repeat hemoccult -hold anticoagulation DM -accuchecks and SSI -holding metformin -Hgb a1c Htn -holding lisinopril while NPO -monitor BP, stable. DVT Prophylaxis - SCDs The patient is admitted with a diagnosis of SBO and current medical needs include as stated above. The patient has the following complex medical factors: Hx Diverticulitis, Colectomy. Virginie Weathers, BONY-RECYCLING SPECIALIST Nurse Practitioner [facility] Hospitalist CC: No primary provider on file. None None documented in this encounter Consult Notes * Giuseppe Espinoza MD - 01/11/2015 5:22 PM CDTAssociated Order(s): IP CONSULT TO GASTROENTEROLOGY GASTROENTEROLOGY INITIAL VISIT NOTE DEMOGRAPHICS: Patient: Erich Allen : 1970 Referring M.D.: No primary provider on file. Reason for consultation: Abdominal pain HISTORY OF PRESENT ILLNESS: 44 y/o male with recent sigmoid resection in August is here for evaluation of abdominal pain focused on the left side which started yesterday without any clear source. He states that this is similarto symptoms that he has had with diverticulitis in the past. He had diarrhea with 3 loose stools yesterday but has not had a BM since taking imodium yesterday. He denies nausea or emesis and is tolerating a low residue diet. He has seen some red blood in the stool but this occurred with diverticulitis in the past as well. He had his most recent colonoscopy within the past year. PAST HISTORY: Past Medical History Diagnosis Date ??? PTSD (post-traumatic stress disorder) ??? Diverticulitis of colon ??? DM (diabetes mellitus) ??? Depressive disorder, not elsewhere classified ??? H/O colectomy Past Surgical History Procedure Laterality Date ??? Colectomy 09/2014 V/A [facility] ??? Appendectomy ??? Cholecystectomy ??? Endoscopy, colon, diagnostic ALLERGIES: No Known Allergies MEDICATIONS: Current Facility-Administered Medications Medication Dose Route Frequency Provider Last Rate Last Dose ??? [START ON 01/12/2015] pneumococcal vaccine polyvalent 23 (PNU- IMUNE;PNEUMOVAX) injection 0.5 mL 0.5 mL Intramuscular Immunization - Once Alessia Perrin MD ??? lisinopril (PRINIVIL;ZESTRIL) tablet 10 mg 10 mg Oral QDAY Claire Moody MD ??? HYDROmorphone PF (DILAUDID) injection 0.5 mg 0.5 mg Intravenous q2h PRN RADHA Kumari 0.5 mg at 01/11/15 1448 ??? 0.9% NaCl infusion Intravenous Continuous Claire Moody MD 100 mL/hr at 01/11/15 0845 ??? acetaminophen (TYLENOL) suppository 650 mg 650 mg Rectal q4h PRN LUIZ KumariRECYCLING SPECIALIST ??? ondansetron (ZOFRAN) injection 4 mg 4 mg Intravenous q6h PRN RADHA Kumari Or ??? metoclopramide (REGLAN) injection 10 mg 10 mg Intravenous q6h PRN Virginie Weathers APRN-RECYCLING SPECIALIST ??? dextrose (Diabetic Use) 40 % oral gel 1 Tube 1 Tube Oral PRN RADHA Kumari Or ??? dextrose injection 12.5-25 g 25-50 mL Intravenous PRN RADHA Kumari Or ??? glucagon (GLUCAGEN) injection 1 mg 1 mg Intramuscular PRN Vigrinie Weathers APRN-JOAN ??? insulin aspart (novoLOG) pen 0-6 Units 0-6 Units Subcutaneous TID WC RADHA Kumari 0Units at 01/11/15 0800 ??? pantoprazole (PROTONIX) injection 40 mg 40 mg Intravenous QDAY RADHA Kumari 40 mg at 01/11/15 0845 History Social History ??? Marital Status: Spouse [...] ??? Not on file Social History Narrative FH Non contributory REVIEW OF SYSTEMS: Per HPI unless noted below: General ROS: negative Psychological ROS: negative Ophthalmic ROS: negative ENT ROS: negative Respiratory ROS: negative Cardiovascular ROS: negative Gastrointestinal ROS: negative Genito-Urinary ROS: negative Musculoskeletal ROS: negative Neurological ROS: negative Dermatological ROS: negative PHYSICAL EXAM: Vitals: 01/11/15 0419 01/11/15 0825 01/11/15 1141 01/11/15 1556 BP: 121/81 126/88 124/83 131/92 Pulse: 70 70 70 78 Temp: 98.1 ??F 98 ??F 98 ??F 97.6 ??F Resp: Weight: SpO2: 98% 100% 99% 95% Body mass index is 29.75 kg/(m^2). Physical Exam: Gen: Alert, oriented, no distress HEENT: MMM, OP clear Neck: No significant LAD, nonpalpable thyroid Lungs: CTA bilaterally CV: RRR, s1s2, no murmurs heard Abd: Soft, mild left sided tenderness, non distended, normal bowel sounds Rectal: Small external hemorrhoids, he did not allow for digital exam Extr: No edema Neuro: No focal deficits LABS: Recent Labs Component Name 01/11/15 0520 SODIUM 136 POTASSIUM 3.8 CHLORIDE 102 CO2 26 BUN 8 CREATININE 1.00 GLUCOSE 126* Recent Labs Component Name 01/11/15 0520 01/10/15 1416 WBC 4.2* 5.3 HGB 12.9 14.2 PLTCOUNT 210 255 MCV 75.0* 72.9* INR 1.1 -- Recent Labs Component Name 01/11/15 0520 01/10/15 1419 ALBUMIN 3.4 4.2 ALKPHOS 74 94 TBIL 0.6 0.4 AST 26 30 ALT 54 66 Recent Labs Component Name 01/10/15 1419 LIPASE 146 Pertinent radiology: CT AP Mild prominence of several of the mid [...] small fat-containing umbilical hernia is also noted. Assessment/Plan: Pt is 44 y.o. male with abdominal pain 1. Abdominal pain This is likely due to partial SBO He is improving clinically This is likely due to scar tissue with multiple abdominal surgeries in the past He is tolerating a clear liquid diet Continue clear liquids for now Encourage ambulation Pain control as needed Continue to monitor electrolytes and replete as needed 2. Rectal bleeding Likely due to hemorrhoids Recent colonoscopy without polyps or mass If this persists or he becomes anemic, then would consider colonoscopy after resolution of bowel obstruction Thank you for this interesting consult I have discussed the above recommendations and their risks, benefits, and alternatives, with the patient and any family present, and all agreed with the plan. All questions were answered. Giuseppe Espinoza MD * Ton Shankar, DO - 01/11/2015 10:13 AM CDTAssociated Order(s): IP CONSULT TO GENERAL SURGERY Surgery Consult Date of Admission: 01/10/2015 Patient's Primary Care Physician: No primary provider on file. Name: Erich Allen Age: 44 y.o. Race: white Sex: male Chief Complaint/History of Present Illness 44 year old male admitted with diarrhea, abdominal pain and possible SBO. Had sigmoid colon resection 2-3 months ago at [place] for diverticulitis. Recovered and was in good health until yesterday morningwhen he began having abdominal pain and bloody diarrhea. Took immodium without improvement. Went toED at [place] and CT showed possible SBO. Also had malaise and nausea. No vomiting. Did not eat yesterday and is not hungry today. Did not want to be transferred back to the [place] for follow up care.No other complaints. Past Medical History Diagnosis Date ??? PTSD (post-traumatic stress disorder) ??? Diverticulitis of colon ??? DM (diabetes mellitus) ??? Depressive disorder, not elsewhere classified ??? H/O colectomy Past Surgical History Procedure Laterality Date ??? Colectomy 09/2014 V/A [facility] ??? Appendectomy ??? Cholecystectomy ??? Endoscopy, colon, diagnostic No family history on file. Social History Occupational History ??? Not on file. Social History Main Topics ??? Smoking status: Never Smoker ??? Smokeless tobacco: Current User Types: Snuff ??? Alcohol Use: Yes Comment: monthly social ??? Drug Use: No ??? Sexual Activity: Not on file Prescriptions prior to admission Medication Sig Dispense Refill ??? hydrOXYzine pamoate (VISTARIL) 25 MG capsule Take 25 mg by mouth 3 times daily. ??? lisinopril (PRINIVIL; ZESTRIL) 10 MG tablet Take 10 mg by mouth once daily. ??? Loperamide (IMODIUM A-D) 2 MG TABS tablet Take 4 mg by mouth 3 times daily as needed for Diarrhea. ??? metFORMIN (GLUCOPHAGE) 500 MG tablet Take 500 mg by mouth 2 times daily with morning and evening meal. ??? clonazePAM (KLONOPIN) 0.5 MG tablet Take 0.5 mg by mouth at bedtime. No Known Allergies Review of Systems Constitutional: Positive for malaise, anorexia, Negative for weight loss, weight gain. Respiratory: Negative for acute cough, hemoptysis Cardiovascular: Negative Gastrointestinal: Positive for poor appetite, nausea, diarrhea, Negative for vomiting Genitourinary:Negative for dysuria, hematuria The rest of the review of systems was negative. Exam Vitals: 01/10/15 2116 01/10/15 2314 01/11/15 0419 01/11/15 0825 BP: 141/90 122/82 121/81 126/88 Pulse: 65 76 70 70 Temp: 98.7 ??F 97.7 ??F 98.1 ??F 98 ??F Resp: 16 16 18 18 Weight: 96.707 kg (213 lb 3.2 oz) SpO2: 96% 95% 98% 100% General appearance: ill-appearing Lungs: no rales or wheezes Heart: regular rhythm Abdomen: soft, mild diffuse tenderness. No guarding or rebound. No rigidity or masses. Well healed scars Extremities: no calf tenderness Data admission labs and imaging studies reviewed Obstructive Series Prelim shows no obvious obstruction with contrast passing to colon Assessment and recommendations 1. SBO (small bowel obstruction) (Principal) No obvious obstruction Possible enteritis GI consult No indication for surgical intervention at this time Continue supportive medical care Will follow documented in this encounter Plan of Treatment Not on file documented as of this encounter Procedures Procedure Name Priority Date/Time Associated Diagnosis Comments OCCULT BLOOD FECES Routine 01/12/2015 2: 25 PM CDT SBO (small bowel obstruction) (HCC) GLUCOSE - POINT OF CARE Routine 01/12/2015 12:55 PM CDT GLUCOSE - POINT OF CARE Routine 01/12/2015 9:41 AM CDT CBC W AUTO DIFFERENTIAL AM Draw 01/12/2015 5:55 AM CDT BASIC METABOLIC PANEL (CALCIUM TOTAL) AM Draw 01/12/2015 5:55 AM CDT GLUCOSE - POINT OF CARE Routine 01/11/2015 9:39 PM CDT GLUCOSE - POINT OF CARE Routine 01/11/2015 5:02 PM CDT GLUCOSE - POINT OF CARE Routine 01/11/2015 11:39 AM CDT GLUCOSE - POINT OF CARE Routine 01/11/2015 8:36 AM CDT XR ABD OBSTRUCTION SERIES 2VW Routine 01/11/2015 8:21 AM CDT SBO (small bowel obstruction) (HCC) HEMOGLOBIN A1C Routine 01/11/2015 5:20 AM CDT SBO (small bowel obstruction) (HCC) PT PTT PANEL AM Draw 01/11/2015 5:20 AM CDT SBO (small bowel obstruction) (HCC) CBC W AUTO DIFFERENTIAL AM Draw 01/11/2015 5:20 AM CDT SBO (small bowel obstruction) (HCC) COMPREHENSIVE METABOLIC PANEL AM Draw 01/11/2015 5:20 AM CDT SBO (small bowel obstruction) (HCC) documented in this encounter Results * OCCULT BLOOD FECES (01/12/2015 2:25 PM CDT) [facility] Occult Blood Negative Negative 01/12/2015 2:46 PM CDT [facility] Stool STOOL SPECIMEN / Unknown 01/12/2015 2:25 PM CDT 01/12/2015 2:41 PM CDT Virginie Weathers [employer] SPECIALIST LAB - BODY FLUID ORDERABLES Performing Organization Address [facility] Co de Phone Number [facility] [address] [place] [phone] * (ABNORMAL) GLUCOSE - POINT OF CARE (01/12/2015 12:55 PM CDT) Glucose WB/POC 124(H) 70 - 106 mg/dL 01/12/2015 12:57 PM CDT [facility] Blood BLOOD SPECIMEN / Unknown 01/12/2015 12:55 PM CDT 01/12/2015 12:57 PM CDT Claire Moody MD LAB - POINT OF CARE ORDERABLES Performing Organization Address [facility] Co de Phone Number [facility] [address] [place] [phone] * (ABNORMAL) GLUCOSE - POINT OF CARE (01/12/2015 9:41 AM CDT) Glucose WB/POC 134(H) 70 - 106 mg/dL 01/12/2015 10:17 AM CDT [facility] Blood BLOOD SPECIMEN / Unknown 01/12/2015 9:41 AM CDT 01/12/2015 10:17 AM CDT Claire Moody MD LAB - POINT OF CARE ORDERABLES Performing Organization Address [facility] Co de Phone Number [facility] [address] [place] [phone] * (ABNORMAL) BASIC METABOLIC PANEL (CALCIUM TOTAL) (01/12/2015 5:55 AM CDT) Glucose 158(H) 74 - 106 mg/dL 01/12/2015 6:31 AM CDT [facility] Sodium 134(L) 136 - 145 mmol/L 01/12/2015 6:31 AM CDT [facility] Potassium 3.7 3.5 - 5.1 mmol/L 01/12/2015 6:31 AM CDT [facility] Chloride 99 98 - 107 mmol/L 01/12/2015 6:31 AM CDT [facility] CO2 27 22 - 31 mmol/L 01/12/2015 6:31 AM CDT [facility] Calcium 8.8 8.5 - 10.1 mg/dL 01/12/2015 6:31 AM T [facility] Anion Gap 8 5 - 15 mmol/L 01/12/2015 6:31 AM T [facility] BUN 8 7 - 21 mg/dL 01/12/2015 6:31 AM T [facility] Creatinine 0.83 0.50 - 1.30 mg/dL 01/12/2015 6:31 AM T [facility] eGFR by MDRD >60 >60 mL/min/1.7 3m2 01/12/2015 6:31 AM T [facility] eGFR by MDRD >60 >60 mL/min/1.7 3m2 01/12/2015 6:31 AM T [facility] Blood BLOOD SPECIMEN / Unknown Lab Venipuncture / Unknown 01/12/2015 5:55 AM CDT 01/12/2015 6:13 AM CDT Claire Moody MD LAB - CHEMIS TRY ORDERABLES [facility] [address] [place] [address] * (ABNORMAL) CBC W AUTO DIFFERENTIAL (01/12/2015 5:55 AM CDT) WBC 4.0(L) 4.4 - 10.7 x10^9/L 01/12/2015 6:28 AM CDT [facility] WBC Corrected x10^9/L 01/12/2015 6:28 AM CDT [facility] RBC 5.35 3.80 - 5.40 x10^12/L 01/12/2015 6:28 AM CDT [facility] Hemoglobin 13.1 12.0 - 17.6 gm/dL 01/12/2015 6:28 AM T [facility] Hematocrit 40.1 35.2 - 51.7 % 01/12/2015 6:28 AM T [facility] MCV 75.0(L) 80.7 - 98.3 fl 01/12/2015 6:28 AM [facility] MCH 24.5(L) 26.7 - 34.0 pg 01/12/2015 6:28 AM T [facility] MCHC 32.7 30.8 - 35.9 gm/dL 01/12/2015 6:28 AM [facility] Platelet Count 210 153 - 416 x10^9/L 01/12/2015 6:28 AM [facility] RDW-CV 14.4 12.1 - 14.9 % 01/12/2015 6:28 AM [facility] MPV 9.0(L) 9.4 - 12.9 fl 01/12/2015 6:28 AM [facility] Neutrophils % 51.4 44.0 - 73.0 % 01/12/2015 6:28 AM [facility] Lymphocytes % 39.2 20.0 - 43.0 % 01/12/2015 6:28 AM [facility] Monocytes % 6.3 5.0 - 13.0 % 01/12/2015 6:28 AM [facility] Eosinophils % 2.3 0.0 - 6.0 % 01/12/2015 6:28 AM [facility] Basophils % 0.5 0.0 - 2.0 % 01/12/2015 6:28 AM [facility] Immature Granulocytes 0.3 0 - 1 % 01/12/2015 6:28 AM [facility] Neutrophil Absolute 2.05 2.01 - 7.14 x10^9/L 01/12/2015 6:28 AM [facility] Lymphocytes Absolute 1.56 1.07 - 3.94 x10^9/L 01/12/2015 6:28 AM [facility] Monocytes Absolute 0.25(L) 0.26 - 1.07 x10^9/L 01/12/2015 6:28 AM [facility] Eosinophils Absolute 0.09 0 - 0.47 x10^9/L 01/12/2015 6:28 AM CDT [facility] Basophils Absolute 0.02 0 - 0.08 x10^9/L 01/12/2015 6:28 AM CDT [facility] Immature Granulocytes Absolute 0.01 0.00 - 0.06 x10^9/L 01/12/2015 6:28 AM CDT [facility] Blood BLOOD SPECIMEN / Unknown Lab Venipuncture / Unknown 01/12/2015 5:55 AM CDT 01/12/2015 6:13 AM CDT Claire Moody MD LAB - HEMATO LOGY ORDERABLES Performing Organization Address City/[facility]/ZIP Co de Phone Number [address] [phone] * (ABNORMAL) GLUCOSE - POINT OF CARE (01/11/2015 9:39 PM CDT) Glucose WB/POC 112(H) 70 - 106 mg/dL 01/11/2015 9:47 PM CDT [facility] Blood BLOOD SPECIMEN / Unknown 01/11/2015 9:39 PM CDT 01/11/2015 9:47 PM CDT Claire Moody MD LAB - POINT OF CARE ORDERABLES Performing Organization Address [facility] Co de Phone Number [address] [phone] * (ABNORMAL) GLUCOSE - POINT OF CARE (01/11/2015 5:02 PM CDT) Glucose WB/POC 143(H) 70 - 106 mg/dL 01/11/2015 5:07 PM CDT [facility] Blood BLOOD SPECIMEN / Unknown 01/11/2015 5:02 PM CDT 01/11/2015 5:07 PM CDT Narrative Authorizing Provider Result Avis Moody MD LAB - POINT OF CARE ORDERABLES [facility] [address] [place] [phone] * (ABNORMAL) GLUCOSE - POINT OF CARE (01/11/2015 11:39 AM CDT) Glucose WB/POC 119(H) 70 - 106 mg/dL 01/11/2015 11:43 AM CDT [facility] Blood BLOOD SPECIMEN / Unknown 01/11/2015 11:39 AM CDT 01/11/2015 11:43 AM CDT Alessia Perrin MD LAB - POINT OF CARE ORDERABLES Performing Organization Address City/[facility]/ZIP Co de Phone Number [address] [phone] * (ABNORMAL) GLUCOSE - POINT OF CARE (01/11/2015 8:36 AM CDT) Glucose WB/POC 108(H) 70 - 106 mg/dL 01/11/2015 8:39 AM CDT [facility] Blood BLOOD SPECIMEN / Unknown 01/11/2015 8:36 AM CDT 01/11/2015 8:39 AM CDT Alessia Perrin MD LAB - POINT OF CARE ORDERABLES Performing Organization Address City/[facility] Co de Phone Number [address] [phone] * XR ABD OBSTR SERIES (01/11/2015 8:21 AM CDT) Anatomical Region Laterality Modality Abdomen Radiographic Padma ging 01/11/2015 10:3 6 AM CDT Impressions 01/11/2015 10:37 AM CDT No acute abnormality identified. Narrative 01/11/2015 10:37 AM CDT Abdomen 2 views: HISTORY: Left-sided pain since yesterday. History of prior bowel surgery. Two views of the abdomen were obtained on 01/11/2015. No relevant prior study is available. Operative changes are noted in the lower left abdomen and pelvis. Oral contrast material is seen in the colon. The bowel gas pattern is otherwise unremarkable with a mild amount of fecal material in the colon. There is no intramural or free intraperitoneal air identified. No abnormal calcifications are seen. Procedure Note Bharat Gonsalves MD - 01/11/2015 Abdomen 2 views: HISTORY: Left-sided pain since yesterday. History of prior bowel surgery. Two views of the abdomen were obtained on 01/11/2015. No relevant prior study is available. Operative changes are noted in the lower left abdomen and pelvis. Oral contrast material is seen in the colon. The bowel gas pattern is otherwise unremarkable with a mild amount of fecal material in the colon. There is no intramural or free intraperitoneal air identified. No abnormal calcifications are seen. IMPRESSION No acute abnormality identified. Virginie Weathers [facility] DIAGNOSTIC IMAGI NG ORDERABLES * (ABNORMAL) HEMOGLOBIN A1C (01/11/2015 5:20 AM CDT) Hemoglobin A1c 8.1(H) 4.2 - 6.3 % 01/11/2015 6:11 AM T [facility] Estimated Average Glucose 186 mg/dL 01/11/2015 6:11 AM T [facility] Whole Blood BLOOD SPECIMEN WITH EDTA / Unknown Lab Venipuncture / Unknown 01/11/2015 5:20 AM CDT 01/11/2015 5:50 AM CDT Virginie Weathers [facility] LAB - CHEMISTRY ORDERABLES [facility] [address] [place], [place] [id number] * PT PTT PANEL (01/11/2015 5:20 AM CDT) PT 11.2 9.5 - 11.6 sec 01/11/2015 6:08 AM T [facility] INR 1.1 0.9 - 1.1 01/11/2015 6:08 AM T [facility] PTT 25.6 21.0 - 32.0 sec 01/11/2015 6:08 AM T [facility] Blood BLOOD SPECIMEN / Unknown Lab Venipuncture / Unknown 01/11/2015 5:20 AM CDT 01/11/2015 5:50 AM T Narrative [facility] - 01/11/2015 6:08 AM CDT Conventional Warfarin Anticoagulant Therapy INR Reference Range: ??2.0-3.0 Intensive Warfarin Anticoagulant Therapy INR Reference Range: ? 2.5-3.5 Heparin Therapeutic Range for PTT: 44.4 - 78.3 seconds. Virginie Weathers [employer]IST LAB - COAGULATIO N ORDERABLES [facility] [address] [place] [address] * (ABNORMAL) COMPREHENSIVE METABOLIC PANEL (01/11/2015 5:20 AM CDT) [facility] Signature Glucose 126(H) 74 - 106 mg/dL 01/11/2015 6:13 AM [facility] Sodium 136 136 - 145 mmol/L 01/11/2015 6:13 AM [facility] Potassium 3.8 3.5 - 5.1 mmol/L 01/11/2015 6:13 AM [facility] Chloride 102 98 - 107 mmol/L 01/11/2015 6:13 AM [facility] CO2 26 22 - 31 mmol/L 01/11/2015 6:13 AM [facility] Calcium 8.3(L) 8.5 - 10.1 mg/dL 01/11/2015 6:13 AM [facility] Anion Gap 8 5 - 15 mmol/L 01/11/2015 6:13 AM [facility] BUN 8 7 - 21 mg/dL 01/11/2015 6:13 AM [facility] Creatinine 1.00 0.50 - 1.30 mg/dL 01/11/2015 6:13 AM [facility] eGFR by MDRD >60 >60 mL/min/1.7 3m2 01/11/2015 6:13 AM [facility] eGFR by MDRD >60 >60 mL/min/1.7 3m2 01/11/2015 6:13 AM [facility] Alkaline Phosphatase 74 38 - 126 U/L 01/11/2015 6:13 AM [facility] ALT 54 12 - 78 U/L 01/11/2015 6:13 AM CDT [facility] AST 26 5 - 40 U/L 01/11/2015 6:13 AM CDT [facility] Protein Total 6.7 6.4 - 8.2 gm/dL 01/11/2015 6:13 AM CDT [facility] Albumin 3.4 3.4 - 5.0 gm/dL 01/11/2015 6:13 AM CDT [facility] Bilirubin Total 0.6 0.2 - 1.0 mg/dL 01/11/2015 6:13 AM CDT [facility] Blood BLOOD SPECIMEN / Unknown Lab Venipuncture / Unknown 01/11/2015 5:20 AM CDT 01/11/2015 5:50 AM CDT Virginie Weathers [employer]IST LAB - CHEMISTRY ORDERABLES [facility] [address] [place] [address] * (ABNORMAL) CBC W AUTO DIFFERENTIAL (01/11/2015 5:20 AM CDT) WBC 4.2(L) 4.4 - 10.7 x10^9/L 01/11/2015 5:56 AM CDT [facility] WBC Corrected x10^9/L 01/11/2015 5:56 AM CDT [facility] RBC 5.27 3.80 - 5.40 x10^12/L 01/11/2015 5:56 AM CDT [facility] Hemoglobin 12.9 12.0 - 17.6 gm/dL 01/11/2015 5:56 AM CDT [facility] Hematocrit 39.5 35.2 - 51.7 % 01/11/2015 5:56 AM CDT [facility] MCV 75.0(L) 80.7 - 98.3 fl 01/11/2015 5:56 AM CDT [facility] MCH 24.5(L) 26.7 - 34.0 pg 01/11/2015 5:56 AM CDT [facility] MCHC 32.7 30.8 - 35.9 gm/dL 01/11/2015 5:56 AM CDT [facility] Platelet Count 210 153 - 416 x10^9/L 01/11/2015 5:56 AM [facility] RDW-CV 14.6 12.1 - 14.9 % 01/11/2015 5:56 AM [facility] MPV 9.2(L) 9.4 - 12.9 fl 01/11/2015 5:56 AM [facility] Neutrophils % 41.0(L) 44.0 - 73.0 % 01/11/2015 5:56 AM [facility] Lymphocytes % 49.5(H) 20.0 - 43.0 % 01/11/2015 5:56 AM [facility] Monocytes % 6.4 5.0 - 13.0 % 01/11/2015 5:56 AM [facility] Eosinophils % 2.4 0.0 - 6.0 % 01/11/2015 5:56 AM [facility] Basophils % 0.5 0.0 - 2.0 % 01/11/2015 5:56 AM [facility] Immature Granulocytes 0.2 0 - 1 % 01/11/2015 5:56 AM [facility] Neutrophil Absolute 1.73(L) 2.01 - 7.14 x10^9/L 01/11/2015 5:56 AM [facility] Lymphocytes Absolute 2.09 1.07 - 3.94 x10^9/L 01/11/2015 5:56 AM [facility] Monocytes Absolute 0.27 0.26 - 1.07 x10^9/L 01/11/2015 5:56 AM [facility] Eosinophils Absolute 0.10 0 - 0.47 x10^9/L 01/11/2015 5:56 AM [facility] Basophils Absolute 0.02 0 - 0.08 x10^9/L 01/11/2015 5:56 AM [facility] Immature Granulocytes Absolute 0.01 0.00 - 0.06 x10^9/L 01/11/2015 5:56 AM [facility] Blood BLOOD SPECIMEN / Unknown Lab Venipuncture / Unknown 01/11/2015 5:20 AM CDT 01/11/2015 5:50 AM CDT Virginie Weathers [employer]IST LAB - HEMATOLOGY ORDERABLES [facility] [address] [place] [address] documented in this encounter Visit Diagnoses Diagnosis SBO (small bowel obstruction) (HCC)- Primary Unspecified intestinal obstruction SBO (small bowel obstruction) (HCC) Unspecified intestinal obstruction documented in this encounter Administered Medications Inactive Administered Medications - up to 3 most recent administrations Medication Order MAR Action Action Date Dose Rate Site 0.9% NaCl infusion at 75 mL/hr, Intravenous, CONTINUOUS, Starting on Thu01/10/15 at 2300, Until Thu01/12/15 at 1726 $ New Bag/Syringe 01/12/2015 8:43 AM CDT 75 mL/ hr $ New Bag/Syringe 01/11/2015 7:36 PM CDT 75 mL/ hr Rate Change 01/11/2015 5:41 PM CDT 75 mL/hr HYDROmorphone PF (DILAUDID) injection 0.5 mg 0.5 mg, Intravenous, EVERY 2 HOURS PRN, Severe Pain, Starting on Thu01/10/15 at 2215, Until Thu01/12/15 at 1726 $ Given 01/12/2015 2:31 PM CDT 0.5 mg $ Given 01/12/2015 9:55 AM CDT 0.5 mg $ Given 01/12/2015 3:26 AM CDT 0.5 mg lisinopril (PRINIVIL;ZESTRIL) tablet 10 mg 10 mg, Oral, DAILY, First dose on Thu01/11/15 at 1645, Until Discontinued $ Given 01/12/2015 9:54 AM CDT 10 mg $ Given 01/11/2015 9:27 PM CDT 10 mg ondansetron (ZOFRAN) injection 4 mg 4 mg, Intravenous, EVERY 6 HOURS PRN, Nausea/Vomiting, Starting on Thu01/10/15 at 2220, Until Thu01/12/15 at 1726 $ Given 01/12/2015 3:25 AM CDT 4 mg pantoprazole (PROTONIX) injection 40 mg 40 mg, Intravenous, DAILY, First dose on Thu01/11/15 at 0900, Until Discontinued, IV push over 2 minutes $ Given 01/12/2015 9:54 AM CDT 40 mg $ Given 01/11/2015 8:45 AM CDT 40 mg documented in this encounter Active and Recently Administered Medications Times are shown in CDT. Scheduled Medication Order 01/10/2015 01/11/2015 01/12/2015 lisinopril (PRINIVIL;ZESTRIL) tablet 10 mg (CANCELED) 10 mg, Oral, DAILY, First dose on [place] 01/11/15 at 1645, Until Discontinued 2127 ($ Given - Provider: Laura Holman, YENNY) 0954 ($ Given - Provider: Marlene Soto, RN) pantoprazole (PROTONIX) injection 40 mg (CANCELED) 40 mg, Intravenous, DAILY, First dose on Thu01/11/15 at 0900, Until Discontinued, IV push over 2 minutes 0845 ($ Given - Provider: Patricia Gomez RN) 0954 ($ Given - Provider: Marlene Soto, RN) Continuous Medication Order 01/10/2015 01/11/2015 01/12/2015 0.9% NaCl infusion (CANCELED) at 75 mL/hr, Intravenous, CONTINUOUS, Starting on Thu01/10/15 at 2300, Until Thu01/12/15 at 1726 2254 ($ New Bag/Syringe - Provider: Anna Dubose RN) 0845 ($ New Bag/Syringe - Provider: Patricia Gomez, YENNY)1741 (Rate Change - Provider: Patricia Gomez RN)1936 ($ New Bag/Syringe - Provider: Patricia Gomez RN) 0843 ($ New Bag/Syringe - Provider: Tonya Burns, [employer]) PRN Medication Order 01/10/2015 01/11/2015 01/12/2015 acetaminophen (TYLENOL) suppository 650 mg 650 mg, Rectal, EVERY 4 HOURS PRN, Fever, Mild Pain, Starting on Thu01/10/15 at 2220, Until Thu01/12/15 at 1726 HYDROmorphone PF (DILAUDID) injection 0.5 mg (CANCELED) 0.5 mg, Intravenous, EVERY 2 HOURS PRN, Severe Pain, Starting on Thu01/10/15 at 2215, Until Thu01/12/15 at [phone] ($ Given - Provider: Anna Dubose, YENNY) 0033 ($ Given - Provider: Anna Dubose RN)0257 ($ Given - Provider: Anna Dubose RN)0859 ($ Given - Provider: Patricia Gomez RN)1159 ($ Given - Provider: Patricia Gomez RN)1448 ($ Given - Provider: Patricia Gomez RN)1740 ($ Given - Provider: Patricia Gomez RN)1935 ($ Given - Provider: Patricia Gomez RN)2140 ($ Given - Provider: Laura Holman, YENNY) 0009 ($ Given - Provider: Patricia Barcenas RN)0326 ($ Given - Provider: Laura Holman, YENNY)0955 ($ Given - Provider: Marlene Soto RN)1431 ($ Given - Provider: Celsa Garcia RN) ondansetron (ZOFRAN) injection 4 mg (CANCELED)(Linked Group 1) 4 mg, Intravenous, EVERY 6 HOURS PRN, Nausea/Vomiting, Starting on Thu01/10/15 at 2220, Until Thu01/12/15 at 1726 0325 ($ Given - Provider: Laura Holman RN) Linked Groups Order Group 1: ondansetron (ZOFRAN) injection 4 mg (CANCELED)Jump to med 4 mg, Intravenous, EVERY 6 HOURS PRN, Nausea/Vomiting, Starting on Thu01/10/15 at 2220, Until Thu01/12/15 at 1726 Or metoclopramide (REGLAN) injection 10 mg (CANCELED) 10 mg, Intravenous, EVERY 6 HOURS PRN, Nausea/Vomiting, Starting on Thu01/10/15 at 2220, Until Thu01/12/15 at 1726, Use ondansetron first. If ondansetron ineffective use metoclopramide. If metoclopramide ineffective call physician. documented in this encounter
--- OUTSIDE RECORDS SUMMARY | 2024-09-03 00:58 | XMS_ITS | Patient Health Summary ---
Author Organization [facility] Address [address] [place] [address] Care Team Providers Care Microfilm Equipment Inspector Name Role Phone Unavailable Primary Care Provider Unavailabl e Note from [facility],non-owned Affiliates and Associated Physician Practices is amultiple site organization consisting of ambulatory clinics and hospital sitesin [place], [place], [place] and [place]. This disclosure is being madepursuant to the Care Everywhere program and may not contain all information available regarding this patient. Last updated 18.[facility] Allergies No known active allergies Medications * Be aware that medications may not be up to date on this document. Alwaysverify current medications with the patient. * hydrOXYzine pamoate (VISTARIL) 25 MG capsule Take 25 mg by mouth 3 times daily. * lisinopril (PRINIVIL; ZESTRIL) 10 MG tablet Take 10 mg by mouth once daily. * metFORMIN (GLUCOPHAGE) 500 MG tablet Take 500 mg by mouth 2 times daily with morning and evening meal. * acetaminophen (TYLENOL) 650 MG suppository(Started 01/12/2015) Insert 1 Suppository into the rectum 4 times daily as needed. Active Problems Problem Noted Date Diagnosed Date SBO (small bowel obstruction) 01/10/2015 Immunizations * PNEUMOCOCCAL PPSV23(Given 01/12/2015) Social History Tobacco Use Types Packs/Day Years [...] Mass Index 29.74 01/10/2015 9:16 PM CDT Procedures * OCCULT BLOOD FECES(Performed 01/12/2015) Performed for SBO (small bowel obstruction) (HCC) * GLUCOSE - POINT OF CARE(Performed 01/12/2015) * GLUCOSE - POINT OF CARE(Performed 01/12/2015) * BASIC METABOLIC PANEL (CALCIUM TOTAL)(Performed 01/12/2015) * CBC W AUTO DIFFERENTIAL(Performed 01/12/2015) * GLUCOSE - POINT OF CARE(Performed 01/11/2015) * GLUCOSE - POINT OF CARE(Performed 01/11/2015) * GLUCOSE - POINT OF CARE(Performed 01/11/2015) * GLUCOSE - POINT OF CARE(Performed 01/11/2015) * XR ABD OBSTRUCTION SERIES 2VW(Performed 01/11/2015) Performed for SBO (small bowel obstruction) (HCC) * HEMOGLOBIN A1C(Performed 01/11/2015) Performed for SBO (small bowel obstruction) (HCC) * PT PTT PANEL(Performed 01/11/2015) Performed for SBO (small bowel obstruction) (HCC) * COMPREHENSIVE METABOLIC PANEL(Performed 01/11/2015) Performed for SBO (small bowel obstruction) (HCC) * CBC W AUTO DIFFERENTIAL(Performed 01/11/2015) Performed for SBO (small bowel obstruction) (HCC) * CT ABDOMEN PELVIS W CONTRAST(Performed 01/10/2015) Performed for Abdominal pain * URINALYSIS REFLEX MICROSCOPIC REFLEX CULTURE(Performed 01/10/2015) * OCCULT BLOOD FECES - POINT OF CARE (IP)(Performed 01/10/2015) * ISTAT CHEM8+ PANEL YAN(Performed 01/10/2015) * LIPASE BLOOD(Performed 01/10/2015) * HEPATIC FUNCTION PANEL(Performed 01/10/2015) * BMP W CA+ NOTIFICATION(Performed 01/10/2015) * CBC W AUTO DIFFERENTIAL(Performed 01/10/2015) Results * OCCULT BLOOD FECES (01/12/2015 2:25 PM CDT) [facility] Occult Blood Negative Negative 01/12/2015 2:46 PM CDT [facility] Stool STOOL SPECIMEN / Unknown 01/12/2015 2:25 PM CDT 01/12/2015 2:41 PM CDT Virginie Weathers MATE SHIP-[employer]IOR [employer] ADMINISTRATOR LAB - BODY FLUID ORDERABLES Performing Organization Address City/[facility]/ZIP Co de Phone Number [facility] [address] [place] [phone] * (ABNORMAL) GLUCOSE - POINT OF CARE (01/12/2015 12:55 PM CDT) Only the most recent of6 resultswithin the time period is included. [facility] Glucose WB/POC 124(H) 70 - 106 mg/dL 01/12/2015 12:57 PM CDT [facility] Blood BLOOD SPECIMEN / Unknown 01/12/2015 12:55 PM CDT 01/12/2015 12:57 PM CDT Claire Moody MD LAB - POINT OF CARE ORDERABLES Performing Organization Address City/[facility]/ZIP Co de Phone Number [facility] [address] [place] [address] * (ABNORMAL) CBC W AUTO DIFFERENTIAL (01/12/2015 5:55 AM CDT) Only the most recent of3 resultswithin the time period is included. [facility] WBC 4.0(L) 4.4 - 10.7 x10^9/L 01/12/2015 6:28 AM CDT [facility] WBC Corrected x10^9/L 01/12/2015 6:28 AM CDT [facility] RBC 5.35 3.80 - 5.40 x10^12/L 01/12/2015 6:28 AM CDT [facility] Hemoglobin 13.1 12.0 - 17.6 gm/dL 01/12/2015 6:28 AM [facility] Hematocrit 40.1 35.2 - 51.7 % 01/12/2015 6:28 AM [facility] MCV 75.0(L) 80.7 - 98.3 fl 01/12/2015 6:28 AM [facility] MCH 24.5(L) 26.7 - 34.0 pg 01/12/2015 6:28 AM [facility] MCHC 32.7 30.8 - 35.9 gm/dL 01/12/2015 6:28 AM [facility] Platelet Count 210 153 - 416 x10^9/L 01/12/2015 6:28 AM [facility] RDW-CV 14.4 12.1 - 14.9 % 01/12/2015 6:28 AM [facility] MPV 9.0(L) 9.4 - 12.9 fl 01/12/2015 6:28 AM [facility] Neutrophils % 51.4 44.0 - 73.0 % 01/12/2015 6:28 AM [facility] Lymphocytes % 39.2 20.0 - 43.0 % 01/12/2015 6:28 AM [facility] Monocytes % 6.3 5.0 - 13.0 % 01/12/2015 6:28 AM [facility] Eosinophils % 2.3 0.0 - 6.0 % 01/12/2015 6:28 AM [facility] Basophils % 0.5 0.0 - 2.0 % 01/12/2015 6:28 AM [facility] Immature Granulocytes 0.3 0 - 1 % 01/12/2015 6:28 AM [facility] Neutrophil Absolute 2.05 2.01 - 7.14 x10^9/L 01/12/2015 6:28 AM [facility] Lymphocytes Absolute 1.56 1.07 - 3.94 x10^9/L 01/12/2015 6:28 AM [facility] Monocytes Absolute 0.25(L) 0.26 - 1.07 x10^9/L 01/12/2015 6:28 AM [facility] Eosinophils Absolute 0.09 0 - 0.47 x10^9/L 01/12/2015 6:28 AM [facility] Basophils Absolute 0.02 0 - 0.08 x10^9/L 01/12/2015 6:28 AM [facility] Immature Granulocytes Absolute 0.01 0.00 - 0.06 x10^9/L 01/12/2015 6:28 AM [facility] Blood BLOOD SPECIMEN / Unknown Lab Venipuncture / Unknown 01/12/2015 5:55 AM CDT 01/12/2015 6:13 AM CDT Claire Moody MD LAB - HEMATO LOGY ORDERABLES [facility] [address] [place] [address] * (ABNORMAL) BASIC METABOLIC PANEL (CALCIUM TOTAL) (01/12/2015 5:55 AM CDT) Glucose 158(H) 74 - 106 mg/dL 01/12/2015 6:31 AM [facility] Sodium 134(L) 136 - 145 mmol/L 01/12/2015 6:31 AM [facility] Potassium 3.7 3.5 - 5.1 mmol/L 01/12/2015 6:31 AM [facility] Chloride 99 98 - 107 mmol/L 01/12/2015 6:31 AM [facility] CO2 27 22 - 31 mmol/L 01/12/2015 6:31 AM [facility] Calcium 8.8 8.5 - 10.1 mg/dL 01/12/2015 6:31 AM [facility] Anion Gap 8 5 - 15 mmol/L 01/12/2015 6:31 AM [facility] BUN 8 7 - 21 mg/dL 01/12/2015 6:31 AM [facility] Creatinine 0.83 0.50 - 1.30 mg/dL 01/12/2015 6:31 AM [facility] eGFR by MDRD >60 >60 mL/min/1.7 3m2 01/12/2015 6:31 AM [facility] eGFR by MDRD >60 >60 mL/min/1.7 3m2 01/12/2015 6:31 AM CDT [facility] Blood BLOOD SPECIMEN / Unknown Lab Venipuncture / Unknown 01/12/2015 5:55 AM CDT 01/12/2015 6:13 AM CDT Claire Moody MD LAB - CHEMIS TRY ORDERABLES [facility] [address] [place] [address] * XR ABD OBSTR SERIES (01/11/2015 8:21 [...] IMPRESSION No acute abnormality identified. Virginie Weathers MATE [employer] ADMINISTRATOR DIAGNOSTIC IMAGI NG ORDERABLES * (ABNORMAL) HEMOGLOBIN A1C (01/11/2015 5:20 AM CDT) Hemoglobin A1c 8.1(H) 4.2 - 6.3 % 01/11/2015 6:11 AM T [facility] Estimated Average Glucose 186 mg/dL 01/11/2015 6:11 AM T [facility] Whole Blood BLOOD SPECIMEN WITH EDTA / Unknown Lab Venipuncture / Unknown 01/11/2015 5:20 AM CDT 01/11/2015 5:50 AM CDT Virginie Weathers APRN-SENIOR [employer]UX SYSTEMS ADMINISTRATOR LAB - CHEMISTRY ORDERABLES Performing Organization Address [facility] Co de Phone Number [facility] [address] [place] [phone] * PT PTT PANEL (01/11/2015 5:20 AM CDT) [facility] PT 11.2 9.5 - 11.6 sec 01/11/2015 6:08 AM T [facility] INR 1.1 0.9 - 1.1 01/11/2015 6:08 AM T [facility] PTT 25.6 21.0 - 32.0 sec 01/11/2015 6:08 AM T [facility] Blood BLOOD SPECIMEN / Unknown Lab Venipuncture / Unknown 01/11/2015 5:20 AM CDT 01/11/2015 5:50 AM CDT Narrative [facility] - 01/11/2015 6:08 AM CDT Conventional Warfarin Anticoagulant Therapy INR Reference Range: ??2.0-3.0 Intensive Warfarin Anticoagulant Therapy INR Reference Range: ? 2.5-3.5 Heparin Therapeutic Range for PTT: 44.4 - 78.3 seconds. Virginie Weathers APRNTEMPLETON DEVEL[facility]MENTAL [facility] LAB - COAGULATIO N ORDERABLES Performing Organization Address [facility] Co de Phone Number [facility] [address] [place] [phone] * (ABNORMAL) COMPREHENSIVE METABOLIC PANEL (01/11/2015 5:20 AM CDT) [facility] Glucose 126(H) 74 - 106 mg/dL 01/11/2015 6:13 AM T [facility] Sodium 136 136 - 145 mmol/L 01/11/2015 6:13 AM [facility] Potassium 3.8 3.5 - 5.1 mmol/L 01/11/2015 6:13 AM [facility] Chloride 102 98 - 107 mmol/L 01/11/2015 6:13 AM [facility] CO2 26 22 - 31 mmol/L 01/11/2015 6:13 AM [facility] Calcium 8.3(L) 8.5 - 10.1 mg/dL 01/11/2015 6:13 AM [facility] Anion Gap 8 5 - 15 mmol/L 01/11/2015 6:13 AM [facility] BUN 8 7 - 21 mg/dL 01/11/2015 6:13 AM [facility] Creatinine 1.00 0.50 - 1.30 mg/dL 01/11/2015 6:13 AM [facility] eGFR by MDRD >60 >60 mL/min/1.7 3m2 01/11/2015 6:13 AM [facility] eGFR by MDRD >60 >60 mL/min/1.7 3m2 01/11/2015 6:13 AM [facility] Alkaline Phosphatase 74 38 - 126 U/L 01/11/2015 6:13 AM [facility] ALT 54 12 - 78 U/L 01/11/2015 6:13 AM [facility] AST 26 5 - 40 U/L 01/11/2015 6:13 AM [facility] Protein Total 6.7 6.4 - 8.2 gm/dL 01/11/2015 6:13 AM [facility] Albumin 3.4 3.4 - 5.0 gm/dL 01/11/2015 6:13 AM [facility] Bilirubin Total 0.6 0.2 - 1.0 mg/dL 01/11/2015 6:13 AM [facility] Blood BLOOD SPECIMEN / Unknown Lab Venipuncture / Unknown 01/11/2015 5:20 AM CDT 01/11/2015 5:50 AM T Virginie Weathers MATE [employer] ADMINISTRATOR LAB - CHEMISTRY ORDERABLES [facility] [address] [place] [address] * CT ABDOMEN AND PELVIS WITH IV [...] Yellow, Dark Yellow 01/10/2015 3:25 PM CDT [facility] Clarity UA Clear 01/10/2015 3:25 PM CDT [facility] Specific [place] UA 1.020 1.005 - 1.030 01/10/2015 3:25 PM CDT [facility] pH UA 6.0 5.0 - 8.0 pH 01/10/2015 3:25 PM CDT [facility] Protein UA Negative Negative 01/10/2015 3:25 PM CDT [facility] Blood UA Negative Negative 01/10/2015 3:25 PM CDT [facility] Leukocyte UA Negative Negative 01/10/2015 3:25 PM CDT [facility] Nitrite UA Negative Negative 01/10/2015 3:25 PM CDT [facility] Glucose UA Negative Negative 01/10/2015 3:25 PM CDT [facility] Ketone UA Negative Negative 01/10/2015 3:25 PM CDT [facility] Bilirubin UA Negative Negative 01/10/2015 3:25 PM CDT [facility] Urobilinogen UA 0.2 0.1 - 1.0 EU/dL 01/10/2015 3:25 PM CDT [facility] Reflex Status Culture not indicated 01/10/2015 3:25 PM CDT [facility] Urine URINE SPECIMEN OBTAINED BY CLEAN CATCH PROCEDURE / Unknown 01/10/2015 3:22 PM CDT 01/10/2015 3:22 PM CDT Alberto Mayen MD LAB - URINALYSIS ORD ERABLES [facility] [address] [place], [place] [address] * OCCULT BLOOD FECES - POINT OF CARE (IP) (01/10/2015 3:03 PM CDT) Occult Blood negative Negative [facility] P OCT TESTING QC Verified Yes Yes [facility] PO CT TESTING Card Exp Date yes Yes [facility] POCT TESTING Stool specimen (specimen) STOOL SPECIMEN / Unknown 01/10/2015 3:03 PM CDT Alberto Mayen MD LAB - POINT OF CARE ORDERABLES [facility] POCT TESTING [address] [place], [place] [address] * (ABNORMAL) ISTAT CHEM8+ PANEL YAN (01/10/2015 [...] MD LAB - POINT OF CARE ORDERABLES [facility] [address] [place] [address], [facility] * HEPATIC FUNCTION PANEL (01/10/2015 2:19 PM CDT) Alkaline Phosphatase 94 38 - 126 U/L 01/10/2015 3:22 PM CDT [facility] ALT 66 12 - 78 U/L 01/10/2015 3:22 PM CDT [facility] AST 30 5 - 40 U/L 01/10/2015 3:22 PM CDT [facility] Protein Total 7.8 6.4 - 8.2 gm/dL 01/10/2015 3:22 PM CDT [facility] Albumin 4.2 3.4 - 5.0 gm/dL 01/10/2015 3:22 PM CDT [facility] Bilirubin Total 0.4 0.2 - 1.0 mg/dL 01/10/2015 3:22 PM CDT [facility] Bilirubin Direct <0.1 0 - 0.3 mg/dL 01/10/2015 3:22 PM CDT [facility] Blood BLOOD SPECIMEN / Unknown 01/10/2015 2:19 PM CDT 01/10/2015 2:55 PM CDT Alberto Mayen MD LAB - CHEMISTRY ORDE BIMAL Performing Organization Address [facility]/ZIP Co de Phone Number [facility] [address] [place] [address] * LIPASE BLOOD (01/10/2015 2:19 PM CDT) Pathologist [facility] Lipase 146 73 - 393 U/L 01/10/2015 3:23 PM CDT [facility] Blood BLOOD SPECIMEN / Unknown 01/10/2015 2:19 PM CDT 01/10/2015 2:55 PM CDT Alberto Mayen MD LAB - CHEMISTRY ORDRadha WALLIS Performing Organization Address City/[facility]/ZIP Co de Phone Number [facility] [address] [place] [address] * BMP w CA+ IONIZED iSTAT POC in House [place] (01/10/2015 2:16 PM CDT) Comment Notification Label 01/10/2015 4:00 PM CDT [facility] Blood BLOOD SPECIMEN / Unknown 01/10/2015 2:16 PM CDT 01/10/2015 2:16 PM CDT Alberto Mayen MD LAB BLOOD ORDERABLES [facility] [address] [place], [place] [address]
--- OUTSIDE RECORDS SUMMARY | 2024-09-03 00:59 | XMS_ITS | Encounter Summary ---
Author Organization [facility] Healthcare Address [address] [place] [address] Care Team Providers Care System Software Programmer Name Role Phone Monique Garcia MD Unavailable [phone] Monique Garcia MD Unavailable [phone] Nathan Martinez MD Primary Care Provider [phone] Encounter Details Date Type Department Care Team (Late st Contact Info) Description 12/03/2023 Orders Only [facility] Health Information Management [address] [place] [id number] Scanning, Provider Social History Tobacco Use Types Packs/Day Years Used Date Smoking Tobacco: Never Smokeless Tobacco: Current Chew Comments:advised to quit 1 c an of chew per week since 1994 Alcohol Use Standard Drinks/Week Comments Not Currently 0 (1 standard drink = 0.6 oz pur e alcohol) AUDIT-C Answer Date Recorded Q1: How often do you have a drink containing alcohol? Never 06/23/2023 Q2: How many drinks containi ng alcohol do you have on a typical day when you are drinking? Patient does not drink Q3: How often do you have si x or more drinks on one occasion? Never 06/23/2023 PHQ-2 Answer Date Recorded PHQ-2 Total Score (If total score is 3 or more points, staff should administer the PHQ-9) 0 10/16/2023 Personal Safety Answer Date Recorded Have you [...] on file documented as of this encounter Plan of Treatment Not on file documented as of this encounter Procedures Procedure Name Priority Date/Time Associated Diagnosis Comments SCAN - RADIOLOGY/IMAGING 12/03/2023 SCAN - LABS 12/03/2023 documented in this encounter Results * SCAN - LABS (12/03/2023) us Provider Scanning Final Result * SCAN - RADIOLOGY/IMAGING (12/03/2023) Anatomical Region Laterality Modality Other us Provider Scanning Final Result documented in this encounter Visit Diagnoses Not on filedocumented in this encounter Care Teams System Software Programmer Relationship Specialty Start Date End Date Nathan Martinez MD PCP - General Family Practice 09/10/20 Monique Garcia MD Referring Physician Gastroenterology 06/11/20 Monique Garcia MD Referring Physician Gastroenterology 06/11/20 documented as of this encounter
--- OUTSIDE RECORDS SUMMARY | 2024-09-03 00:59 | XMS_ITS | Encounter Summary ---
Author Organization [facility] Healthcare Address [address] [place] [address] Care Team Providers Care Chief Yeoman Name Role Phone Monique Garcia MD Unavailable Monique Garcia MD Unavailable [phone] Nathan Martinez MD Primary Care Provider [phone] Reason for Visit * Reason Comments Back Pain Encounter Details Date Type Department Care Team (Late st Contact Info) Description 09/16/2023 5:50 PM PLUMBING ENGINEERING DRAFTSPERSON - 09/16/2023 9:15 PM [facility] Emergency [facility] Emergency Department [address] [place] [id number] Fall, initial encounter (Primary Dx); Mid back pain Discharge Disposition: Discharge to home or self care Social History Tobacco Use Types Packs/Day Years [...] points, staff should administer the PHQ-9) 0 06/23/2023 Personal Safety Answer Date Recorded Have you [...] Sign Reading Time Taken Comments Blood Pressure 130/78 09/16/2023 9:10 PM PLUMBING ENGINEERING DRAFTSPERSON Pulse 90 09/16/2023 9:10 PM PLUMBING ENGINEERING DRAFTSPERSON Temperature 37 ??C (98.6 ??F) 09/16/2023 4:23 PM PLUMBING ENGINEERING DRAFTSPERSON Respiratory Rate 20 09/16/2023 4:23 PM PLUMBING ENGINEERING DRAFTSPERSON Oxygen Saturation 100% 09/16/2023 9:10 PM PLUMBING ENGINEERING DRAFTSPERSON Inhaled Oxygen Concentration - - Weight 92.4 kg (203 lb 11.3 oz) 09/16/2023 4:23 PM PLUMBING ENGINEERING DRAFTSPERSON Height 180.3 cm (5' 11 ) 09/16/2023 4:23 PM PLUMBING ENGINEERING DRAFTSPERSON Body Mass Index 28.41 09/16/2023 4:23 PM PLUMBING ENGINEERING DRAFTSPERSON documented in this encounter Discharge Instructions * Discharge Instructions* Shellie Molina PA - 09/16/2023 9:09 PM PLUMBING ENGINEERING DRAFTSPERSON The CT of your neck and back show that you have some arthritis of your back that may warrant further workup with your primary care in outpatient MRI. I sent you a prescription for muscle relaxer. Please do not drink alcohol, drive or operate machinery while taking this medication as it does impair you. I have also prescribed you steroids and lidocaine patches. You can rotate Tylenol and ibuprofenoutpatient if able to take both of those for pain. Please follow-up with your primary care doctor immediately. If you have any worsening of symptoms such as persistent paresthesias, dropping things, weakness in your arm or worsening of any symptoms return to the ER immediately. The medication prescribed and or administered in the emergency room which is a steroid will raise your blood sugar and therefore during the time you are taking this medication you must be extra careful with your diet to prevent the blood sugar from spiking too high. Should you develop symptoms of high blood sugar like increased thirst increased urination confusion visual changes call 911 or return to the emergency room Follow-up as recommended is mandatory. You have received emergency care only at your visit today. This is not a substitute for ongoing care, further evaluation and treatment and therefore follow-up as directed is not optional but mandatory You MUST follow up for further evaluation of all incidental abnormal radiographic and laboratory findings, Have your physician obtain records from this visit and address all the incidental abnormal findings. This may include final results of lab testing, cultures, final x-ray reports which may not have been available during the time of the visit. You must not drive or walk home. Besides the medical condition that may preclude this it is quite likely you may have been given medications that may impair your ability to do so causing a danger to yourself. Return immediately for any new symptoms, worsening of symptoms, or persistent symptoms BING ENGINEERING DRAFTSPERSON * Attachments The following attachments cannot be sent through Care Everywhere. * Back Pain (AfterCare(R) Instructions(ER/ED)) ([place]) documented in this encounter Medications at Time of Discharge triamcinolone (KENALOG) 0.1 % cream Apply to affected area 1-2 times daily as needed. Avoid face and groin. 90 g 1 05/05/2022 predniSONE (DELTASONE) 20 mg tablet Take 1 tablet (20 mg) by mouth 2 (two) times a day for 4 days 8 tablet 09/16/2023 09/20/2023 atorvastatin (LIPITOR) 10 mg tablet Take 1 tablet (10 mg total) by mouth daily 30 tablet 5 05/06/2022 05/02/2024 cyclobenzaprine (FLEXERIL) 10 mg tablet Take 1 tablet (10 mg total) by mouth 2 (two) times a day as needed for muscle spasms for up to 3 days 6 tablet 09/16/2023 10/16/2023 dulaglutide (Trulicity) 1.5 mg/0.5 mL pen injector Inject 0.5 mL (1.5 mg total) under the skin once a week 2 mL 3 08/27/2023 10/16/2023 escitalopram (LEXAPRO) 20 mg tablet Take 1 tablet (20 mg total) by mouth daily 90 tablet 1 06/23/2023 10/16/2023 glipiZIDE (GLUCOTROL) 10 mg tabletIndication s:type 2 diabetes mellitus Take 1 tablet (10 mg total) by mouth daily 90 tablet 1 09/02/2021 05/02/2024 hyoscyamine ER (LEVBID) 0.375 mg 12 hr tabletIndication s:diarrhea Take 1 tablet (0.375 mg total) by mouth every 12 (twelve) hours as needed for cramping 60 tablet 3 09/02/2021 05/02/2024 lidocaine (LIDODERM) 5 % Place 1 patch on the skin daily for 7 days Remove & discard patch within 12 hours or as directed by . 7 patch 09/16/2023 10/16/2023 modafiniL (PROVIGIL) 100 mg tablet Take 1 tablet (100 mg total) by mouth daily 90 tablet 1 06/23/2023 10/16/2023 traZODone (DESYREL) 100 mg tablet Take 1 tablet by mouth every night 90 tablet 1 06/23/2023 10/16/2023 documented as of this encounter Ordered Prescriptions Prescription Sig Dispense Quantity Refills Last Filled Start Date End Date lidocaine (LIDODERM) 5 % Place 1 patch on the skin daily for 7 days Remove & discard patch within 12 hours or as directed by . 7 patch 09/16/2023 4 predniSONE (DELTASONE) 20 mg tablet Take 1 tablet (20 mg) by mouth 2 (two) times a day for 4 days 8 tablet 09/16/2023 4 cyclobenzaprine (FLEXERIL) 10 mg tablet Take 1 tablet (10 mg total) by mouth 2 (two) times a day as needed for muscle spasms for up to 3 days 6 tablet 09/16/2023 4 documented in this encounter Discharge Disposition Disposition Code Departure Means Destination Comment s Discharge to home or self care documented in this encounter ED Notes * Shellie Molina PA - 09/16/2023 6:18 PM CST CHIEF COMPLAINT: Chief Complaint Patient presents with Back Pain HPI 11:59 PM Erich Allen is a 53 y.o. male presenting to the ED c/o back pain s/p fall on 09/11/23. He slipped on ice, hit his head, does not think he lost consciousness. Was seen at urgent care [place] of state and reports his CT was negative for fracture. He had a CT of his head and back. He has had continued to have neck and upper back pain worse with movement as well as left shoulder pain reports he has had some paresthesias to his left 2nd 3rd and 4th fingers. This has been intermittent. Today hasbeen more persistent. Denies any weakness in his hand. Has been taking Ibuprofen without improvement in his pain. Has a history of left rotator cuff repair. Denies fever, chills, nausea, vomiting. Denies any vision changes, chest pain, shortness of breath, lightheadedness or dizziness. History provided by Patient. PCP: Nathan Martinez MD PAST MEDICAL HISTORY Past Medical History: Diagnosis Date Ankle fracture, right Colitis Depression Diabetes mellitus (HCC) Diverticulitis Insomnia Wrist fracture, left PAST SURGICAL HISTORY Past Surgical History: Procedure Laterality Date APPENDECTOMY CHOLECYSTECTOMY COLON SURGERY NASAL SEPTUM SURGERY 11/07/2020 Dr. Yousif Weston NASAL TURBINATE REDUCTION 11/07/2020 SEPTOPLASTY 11/07/2020 WRIST FRACTURE SURGERY FAMILY HISTORY Family History Problem Relation Age of Onset No Known Problems Mother Heart disease Father Diabetes Father MEDICATIONS GIVEN IN THE ED Medications lidocaine (LIDODERM) 5 % patch 1 patch (1 patch transdermal Medication Applied 09/16/231853) cyclobenzaprine (FLEXERIL) tablet 10 mg (10 mg oral Given 09/16/231852) acetaminophen (TYLENOL) tablet 650 mg (650 mg oral Given 09/16/231852) HYDROcodone-acetaminophen (NORCO) 5-325 mg per tablet 1 tablet (1 tablet oral Given 09/16/231958) dexAMETHasone (DECADRON) preservative free solution 8 mg (8 mg intramuscular Given 09/16/231958) CURRENT HOME MEDICATIONS Current Facility-Administered Medications: lidocaine (LIDODERM) 5 % patch 1 patch, 1 patch, transdermal, Once, Shellie Molina PA, 1 patch at 09/16/231853 Current Outpatient Medications: atorvastatin (LIPITOR) 10 mg tablet, Take 1 tablet (10 mg total) by mouth daily, Disp: 30 tablet, Rfl: 5 cyclobenzaprine (FLEXERIL) 10 mg tablet, Take 1 tablet (10 mg total) by mouth 2 (two) times a day as needed for muscle spasms for up to 3 days, Disp: 6 tablet, Rfl: 0 dulaglutide (Trulicity) 1.5 mg/0.5 mL pen injector, Inject 0.5 mL (1.5 mg total) under the skin once a week, Disp: 2 mL, Rfl: 3 escitalopram (LEXAPRO) 20 mg tablet, Take 1 tablet (20 mg total) by mouth daily, Disp: 90 tablet, Rfl: 1 glipiZIDE (GLUCOTROL) 10 mg tablet, Take 1 tablet (10 mg total) by mouth daily, Disp: 90 tablet, Rfl: 1 hyoscyamine ER (LEVBID) 0.375 mg 12 hr tablet, Take 1 tablet (0.375 mg total) by mouth every 12 (twelve) hours as needed for cramping, Disp: 60 tablet, Rfl: 3 lidocaine (LIDODERM) 5 %, Place 1 patch on the skin daily for 7 days Remove & discard patch within 12 hours or as directed by MD., Disp: 7 patch, Rfl: 0 modafiniL (PROVIGIL) 100 mg tablet, Take 1 tablet (100 mg total) by mouth daily, Disp: 90 tablet, Rfl: 1 predniSONE (DELTASONE) 20 mg tablet, Take 1 tablet (20 mg) by mouth 2 (two) times a day for 4 days,Disp: 8 tablet, Rfl: 0 traZODone (DESYREL) 100 mg tablet, Take 1 tablet by mouth every night, Disp: 90 tablet, Rfl: 1 triamcinolone (KENALOG) 0.1 % cream, Apply to affected area 1-2 times daily as needed. Avoid face and groin., Disp: 90 g, Rfl: 1 ALLERGIES Allergies Allergen Reactions Toradol [Ketorolac] Hives Gabapentin Anxiety Phenergan [Promethazine] Anxiety SOCIAL HISTORY Social History Tobacco Use Smoking status: Never Smokeless tobacco: Current Types: Chew Tobacco comments: advised to quit 1 can of chew per week since 1994 Substance and Sexual Activity Drug use: Never Sexual activity: Yes Partners: Female Alcohol Use: Not At Risk (06/23/2023) AUDIT-C Frequency of Alcohol Consumption: Never Average Number of Drinks: Patient does not drink Frequency of Binge Drinking: Never PHYSICAL EXAM TRIAGE VITAL SIGNS: ED Triage Vitals [09/16/23 1623] Temp Pulse Resp BP SpO2 37 ??C (98.6 ??F) 104 20 133/93 98 % Temp src Heart Rate Source Patient Position BP Location FiO2 (%) Oral -- -- -- -- Height Height Method Weight Weight Method 1.803 m (5' 11 ) Stated 92.4 kg (203 lb 11.3 oz) Standing scale Physical Exam Vitals and nursing note reviewed. Constitutional: General: He is not in acute distress. Appearance: Normal appearance. He is well-developed and normal weight. He is not ill-appearing, toxic-appearing or diaphoretic. HENT: Head: Normocephalic and atraumatic. Nose: Nose normal. Mouth/Throat: Mouth: Mucous membranes are moist. Pharynx: Oropharynx is clear. No oropharyngeal exudate or posterior oropharyngeal erythema. Eyes: General: Lids are normal. Vision grossly intact. No visual field deficit. Right eye: No discharge. Left eye: No discharge. Extraocular Movements: Extraocular movements intact. Right eye: Normal extraocular motion and no nystagmus. Left eye: Normal extraocular motion and no nystagmus. Conjunctiva/sclera: Conjunctivae normal. Pupils: Pupils are equal, round, and reactive to light. Pupils are equal. Neck: Comments: Limited ROM of the neck due to pain with midline tenderness of lower cervical and upper thoracic vertebrae. Cardiovascular: Rate and Rhythm: Normal rate and regular rhythm. Heart sounds: Normal heart sounds. No murmur heard. No friction rub. No gallop. Comments: Radial pulses equal bilaterally Pulmonary: Effort: Pulmonary effort is normal. No respiratory distress. Breath sounds: Normal breath sounds. No wheezing or rhonchi. Chest: Chest wall: No tenderness. Abdominal: General: Abdomen is flat. Bowel sounds are normal. There is no distension. Palpations: Abdomen is soft. Tenderness: There is no abdominal tenderness. There is no guarding or rebound. Musculoskeletal: Cervical back: Normal, full passive range of motion without pain, normal range of motion and neck supple. No rigidity or tenderness. No pain with movement, spinous process tenderness or muscular tenderness. Normal range of motion. Thoracic back: Tenderness (On the left paraspinous muscle) present. No swelling. Decreased range ofmotion (Mild secondary to pain). Lumbar back: Normal. Right lower leg: No edema. Left lower leg: No edema. Comments: Tenderness over the left acromion process and medial condyle with full active range of motion accompanied by pain. Model Artists' strength 5/5 bilaterally. Strength 5/5 at the shoulder, elbow and wrist. Neurovascularly intact distally to the upper extremities bilaterally. Lymphadenopathy: Cervical: No cervical adenopathy. Skin: General: Skin is warm and dry. Capillary Refill: Capillary refill takes less than 2 seconds. Neurological: General: No focal deficit present. Mental Status: He is alert and oriented to person, place, and time. Cranial Nerves: Cranial nerves 2-12 are intact. No facial asymmetry. Sensory: Sensation is intact. No sensory deficit. Motor: Motor function is intact. No weakness. Coordination: Coordination is intact. Wnyrov-Pjiq-Smdyya Test normal. Gait: Gait is intact. Gait normal. Psychiatric: Mood and Affect: Mood normal. Behavior: Behavior normal. LABS Labs Reviewed - No data to display RADIOLOGY CT Thoracic Spine WO Contrast Result Date: 09/16/2023 Narrative: EXAM DESCRIPTION: CT THORACIC SPINE WO CONTRAST REASON FOR STUDY: Mid-back pain, neuro deficit Came to ED for c/o upper back pain that radiates to left arm. Reports fell on ice in [place]5 days ago. Reports was seen there and tests negative. TECHNIQUE: Axial images acquired through thethoracic spine without intravenous contrast. Images reviewed with lung, soft tissue and bone windows. Reconstructed coronal and sagittal MPR images reviewed. Images stored on PACS. Automated exposurecontrol was used as a dose optimization technique for this examination. COMPARISON: None FINDINGS: ALIGNMENT: Normal. VERTEBRAE: No fracture. Vertebral body height well-maintained. DISC HEIGHT: Mild i ntervertebral disc narrowing is noted of the lower thoracic spine. HARDWARE: None in the spine. THORACIC DISCS T1-T12: No significant osseous spinal stenosis or neuroforaminal stenosis. SOFT TISSUES:No soft tissue masses. LOWER CERVICAL: Incompletely imaged. No significant osseous spinal stenosis or osseous foraminal stenosis. UPPER LUMBAR: Incompletely imaged. No significant osseous spinal or os seous neuroforaminal stenosis. OTHER: No other significant abnormality. IMPRESSION: No acute abnormality is seen. Minimal degenerative changes are seen of the lower thoracic spine. There is some partial neural foraminal crowding particularly on the left at T9-T10 secondary to spurring from the facet joint. MRI would likely provide better evaluation. THIS IS AN ELECTRONICALLY VERIFIED FINAL REPORT09/16/2023 5:39 PM - Electronically signed by Hemanth Couch M.D. KH: JÚNIOR Report ID: [id number] Reading Location: [id number] CT Cervical Spine WO Contrast Result Date: 09/16/2023 Narrative: EXAM DESCRIPTION: CT CERVICAL SPINE WO CONTRAST REASON FOR STUDY: Neck pain, acute, no red flags Came to ED for c/o upper back pain that radiates to left arm. Reports fell on ice in [place] 5 days ago. Reports was seen there and tests negative. TECHNIQUE: Axial images through the cervical spine with sagittal and coronal reformatted images. Automated exposure control was used as a doseoptimization technique for this examination. COMPARISON: None FINDINGS: ALIGNMENT: Normal. VERTEBRAE: No fracture. Vertebral body heights well- maintained. DISCS: Mild intervertebral disc narrowing isseen at C5-C6 with some mild marginal spurring. HARDWARE: None in the spine. INDIVIDUAL LEVELS: No s ignificant osseous spinal stenosis or neural foraminal stenosis. UPPER THORACIC: Incompletely imaged. No significant osseous spinal stenosis or osseous neural foraminal stenosis. SKULL BASE: No significant finding. LUNG APICES: No significant abnormality. NECK SOFT TISSUES: No significant abnormality. OTHER: No other significant findings. IMPRESSION: No traumatic injury is seen. No acute abnormality is identified. Minor degenerative changes are noted. THIS IS AN ELECTRONICALLY VERIFIED FINAL REPORT 09/16/2023 5:36 PM - Electronically signed by Hmeanth CALLEJAS: JÚNIOR Report ID: [id number] Reading Location: [place] [address] ED COURSE/MEDICAL DECISION MAKING Differential diagnosis included but not limited to sprain, strain, fracture, dislocation, contusion, other Patient's medical records were reviewed. I discussed management or test interpretation with the following outside physician, caregiver, prison staff: n/a ED Course as of 09/16/23 8419 Time: 09/16 2104 Comment: Patient is feeling much better with medication given in the ER. Patient's paresthesias have completely resolved. Reassuring. His splicer helper strength is equal bilaterally which is reassuring. Patient has full range of motion of his neck. Patient is stable for discharge home with close follow-up with primary care. By: Shellie Molina PA Time: 09/163 Comment: The patient is a 53-year-old male who presents to the ED with complaints of fall. He has been having some mid back pain, left shoulder pain and some paresthesias to his left arm. Patient reports he has had these paresthesias intermittently before but worse now after the fall. Patient has no red flag back pain symptoms and has equal splicer helper strength bilaterally. . She just did resolve with medication. Will send patient home with similar medications. He has a diabetic so I did discuss with him that the steroids could also raise his blood sugar he should chicken more frequently. Patient understands and is agreeable to this. We discussed Flexeril and he should not drive or operate machinery while taking this as it does impair you. Patient is to follow up with his primary care doctor forprompt reassessment. We discussed strict return precautions for when to return to the ED. Patient understands and agreeable to this. By: Shellie Molina PA Time: 09/16 8223 Comment: Recheck on patient. Non toxic appearing, vitals stable. Patient stable for discharge home. Discussed with patient work up, relevant results, and plan for discharge. Patient was given ED warnings, discharge instructions, and follow up instructions. Patient understands and agrees with plan for discharge. Patient was informed and verbalizes understanding to return to ER immediately if sympto ms worsen or persist, new concerns arise, new symptoms develop or if follow up cannot be obtained. Any questions have been addressed. Patient feels comfortable going home at this time. By: Shellie Molina PA Procedures FINAL IMPRESSION Fall, initial encounter Mid back pain DISPOSITION: Home PATIENT INSTRUCTED TO FOLLOW UP Nathan Martinez MD [address] [facility] [address] Schedule an appointment as soon as possible for a visit in 3 days DISCHARGE MEDICATIONS Your medication list START taking these medications Instructions Last Dose Given Next Dose Due cyclobenzaprine 10 mg tablet Commonly known as: FLEXERIL Take 1 tablet (10 mg total) by mouth 2 (two) times a day as needed for muscle spasms for up to 3 days lidocaine 5 % Commonly known as: LIDODERM Place 1 patch on the skin daily for 7 days Remove & discard patch within 12 hours or as directed by MD. predniSONE 20 mg tablet Commonly known as: DELTASONE Take 1 tablet (20 mg) by mouth 2 (two) times a day for 4 days ASK your doctor about these medications Instructions Last Dose Given Next Dose Due atorvastatin 10 mg tablet Commonly known as: LIPITOR Take 1 tablet (10 mg total) by mouth daily escitalopram 20 mg tablet Commonly known as: LEXAPRO Take 1 tablet (20 mg total) by mouth daily glipiZIDE 10 mg tablet Doctor's comments: Dose increased. Commonly known as: GLUCOTROL Take 1 tablet (10 mg total) by mouth daily hyoscyamine ER 0.375 mg 12 hr tablet Commonly known as: LEVBID Take 1 tablet (0.375 mg total) by mouth every 12 (twelve) hours as needed for cramping modafiniL 100 mg tablet Commonly known as: PROVIGIL Take 1 tablet (100 mg total) by mouth daily traZODone 100 mg tablet Doctor's comments: Pt needs appt. Commonly known as: DESYREL Take 1 tablet by mouth every night triamcinolone 0.1 % cream Commonly known as: KENALOG Apply to affected area 1-2 times daily as needed. Avoid face and groin. Trulicity 1.5 mg/0.5 mL pen injector Generic drug: dulaglutide Inject 0.5 mL (1.5 mg total) under the skin once a week Where to Get Your Medications These medications were sent to [id number] - [place], [place] - [address] [facility] [id number] cyclobenzaprine 10 mg tablet lidocaine 5 % predniSONE 20 mg tablet This examination was transcribed using the [employer] voice recognition system without human poultry feed supervisor. In an effort to expedite patient care, this report has not been adjusted for typographical, grammatical, and syntax by a trained medical record technician. Shellie Molina PA 09/17/23 0000 Cosigned by Moustapha Forbes MD at 09/17/2023 3:28 AM PLUMBING ENGINEERING DRAFTSPERSON BING ENGINEERING DRAFTSPERSON BING ENGINEERING DRAFTSPERSON Associated attestation - Moustapha Forbes MD - 09/17/2023 3:28 AM PLUMBING ENGINEERING DRAFTSPERSON ED Attestation I did not see this patient. I was personally available for consultation in the ED for this patient if the Advanced Practice Provider (ERIC) needed any assistance. The ERIC evaluated the patient independently and completed their own examination, documentation, and disposition. * Emily Rmoero RN - 09/16/2023 4:21 PM CST Came to ED for c/o upper back pain that radiates to left arm. Reports fell on ice in [place]. Reports was seen there and tests negative. BING ENGINEERING DRAFTSPERSON documented in this encounter Plan of Treatment Not on file documented as of this encounter Procedures Procedure Name Priority Date/Time Associated Diagnosis Comments CT HEAD WO CONTRAST ED 09/16/2023 6 :52 PM PLUMBING ENGINEERING DRAFTSPERSON XR SHOULDER LEFT 2 OR MORE VIEWS ED 09/16/2023 6:49 PM PLUMBING ENGINEERING DRAFTSPERSON CT THORACIC SPINE WO CONTRAST ED 09/16/2023 5:28 PM PLUMBING ENGINEERING DRAFTSPERSON CT CERVICAL SPINE WO CONTRAST ED 09/16/2023 5:28 PM PLUMBING ENGINEERING DRAFTSPERSON documented in this encounter Results * CT Head WO Contrast (09/16/2023 6:52 PM PLUMBING ENGINEERING DRAFTSPERSON) Anatomical Region Laterality Modality Head and Neck N/A Computed Tomogra phy 09/16/2023 7:12 PM PLUMBING ENGINEERING DRAFTSPERSON Narrative 09/16/2023 7:13 PM PLUMBING ENGINEERING DRAFTSPERSON EXAM DESCRIPTION: CT HEAD WO CONTRAST REASON FOR STUDY: fall, hit head ?? Came to ED for c/o upper back pain that radiates to left arm. Reports fell on ice in [place]. Reports was seen there and tests negative. Pt c/o headache ?? TECHNIQUE: Axial images acquired through the brain without intravenous contrast. ??Images stored on PACS. ?? Automated exposure control was used as a dose optimization technique for this examination. COMPARISON: None FINDINGS: BRAIN: ?? No hemorrhage, edema or mass effect. No recent infarct. ? Moderate diffuse atrophy of the brain is noted. ? EXTRA-AXIAL SPACES: ?? No fluid collections. No masses. CALVARIUM: ?? No fracture. SINUSES/MASTOIDS: ?? No fluid or mucosal thickening. ORBITS: ?? No significant abnormality. OTHER: ?? No other significant abnormality. IMPRESSION: No acute intracranial findings. THIS IS AN ELECTRONICALLY VERIFIED FINAL REPORT 09/16/2023 7:13 PM - Electronically signed by ??Hemanth Couch M.D. KH: JÚNIOR D: ??09/16/2023 7:13 PM T: ??09/16/2023 7:13 PM Report ID: [id number] Reading Location: ??[id number] Procedure Note Hemanth Couch MD - 09/16/2023 EXAM DESCRIPTION: CT HEAD WO CONTRAST REASON FOR STUDY: fall, hit head Came to ED for c/o upper back pain that radiates to left arm. Reports fell[place] ice in [place]. Reports was seen there and tests negative. Pt c/oheadache TECHNIQUE: Axial images acquired through the brain without intravenous contrast. Images stored on PACS. Automated exposure control was used asa dose optimization technique for this examination. COMPARISON: None FINDINGS: BRAIN: No hemorrhage, edema or mass effect. No recent infarct. Moderate diffuse atrophy of the brain is noted. EXTRA-AXIAL SPACES: No fluid collections. No masses. CALVARIUM: No fracture. SINUSES/MASTOIDS: No fluid or mucosal thickening. ORBITS: No significant abnormality. OTHER: No other significant abnormality. IMPRESSION: No acute intracranial findings. THIS IS AN ELECTRONICALLY VERIFIED FINAL REPORT 09/16/2023 7:13 PM - Electronically signed by Hemanth CALLEJAS: JÚNIOR Report ID: [id number] Reading Location: [id number] us Shellie MONTENEGRO IMG CT PROCEDURES Final Result * XR Shoulder Left 2 or More Views (09/16/2023 6:49 PM PLUMBING ENGINEERING DRAFTSPERSON) Anatomical Region Laterality Modality Upper Extremities, Shoulder Left Comp uted Radiography 09/16/2023 7:10 PM [employer]UMBING ENGINEERING DRAFTSPERSON Narrative 09/16/2023 7:12 PM [employer]UMB[employer] ENGINEERING DRAFTSPERSON EXAM DESCRIPTION: XR SHOULDER LEFT 2 OR MORE VIEWS REASON FOR STUDY: fall ?? Came to ED for c/o upper back pain that radiates to left arm. Reports fell on ice in [place]. Reports was seen there and tests negative. ? TECHNIQUE: 4 ??radiographic view(s) of the ??left shoulder . COMPARISON: None FINDINGS: Surgical anchors are seen in the left proximal humerus consistent with prior rotator cuff repair. ??The distal clavicle appears to have been resected. ??No fracture or dislocation is identified. ??Surrounding soft tissues appear unremarkable. IMPRESSION: Surgical changes are noted. ??No acute process is otherwise seen. THIS IS AN ELECTRONICALLY VERIFIED FINAL REPORT 09/16/2023 7:12 PM - Electronically signed by ??Hemanth CALLEJAS: JÚNIOR D: ??09/16/2023 7:12 PM T: ??09/16/2023 7:12 PM Report ID: [id number] Reading Location: ??[id number] Procedure Note Hemanth Couch MD - 09/16/2023 EXAM DESCRIPTION: XR SHOULDER LEFT 2 OR MORE VIEWS REASON FOR STUDY: fall Came to ED for c/o upper back pain that radiates to left arm. Reports fellon ice in [place]. Reports was seen there and tests negative. TECHNIQUE: 4 radiographic view(s) of the left shoulder . COMPARISON: None FINDINGS: Surgical anchors are seen in the left proximal humerusconsistent with prior rotator cuff repair. The distal clavicle appears to have been resected. No fracture or dislocation is identified. Surrounding softtissues appear unremarkable. IMPRESSION: Surgical changes are noted. No acute process is otherwiseseen. THIS IS AN ELECTRONICALLY VERIFIED FINAL REPORT 09/16/2023 7:12 PM - Electronically signed by Hemanth Couch M.D. KH: JÚNIOR Report ID: [id number] Reading Location: [place] [id number] us Shellie MONTENEGRO IMG XR PROCEDURES Final Result * CT Thoracic Spine WO Contrast (09/16/2023 5:28 PM PLUMBING ENGINEERING DRAFT[employer]ERSON) Anatomical Region Laterality Modality Spine N/A Computed Tomogra phy 09/16/2023 5:36 PM [employer]UMB[employer] ENGINEERING DRAFTSPERSON Narrative 09/16/2023 5:39 PM [employer]UMB[employer] ENGINEERING DRAFTSPERSON EXAM DESCRIPTION: ?? CT THORACIC SPINE WO CONTRAST REASON FOR STUDY: ?? Mid-back pain, neuro deficit ?? Came to ED for c/o upper back pain that radiates to left arm. Reports fell on ice in [place] 5 days ago. Reports was seen there and tests negative. ? TECHNIQUE: Axial images acquired through the thoracic spine without intravenous contrast. ??Images reviewed with lung, soft tissue and bone windows. ??Reconstructed coronal and sagittal MPR images reviewed. ??Images stored on PACS. Automated exposure control was used as a dose optimization technique for this examination. COMPARISON: ?? None FINDINGS: ALIGNMENT: ?? Normal. VERTEBRAE: ?? No fracture. Vertebral body height well-maintained. DISC HEIGHT: ?? Mild intervertebral disc narrowing is noted of the lower thoracic spine. HARDWARE: ?? None in the spine. THORACIC DISCS T1-T12: ?? No significant osseous spinal stenosis or neuroforaminal stenosis. SOFT TISSUES: ?? No soft tissue masses. LOWER CERVICAL: ?? Incompletely imaged. No significant osseous spinal stenosis or osseous foraminal stenosis. UPPER LUMBAR: ?? Incompletely imaged. ??No significant osseous spinal or osseous neuroforaminal stenosis. OTHER: ?? No other significant abnormality. IMPRESSION: ?? No acute abnormality is seen. ??Minimal degenerative changes are seen of the lower thoracic spine. ??There is some partial neural foraminal crowding particularly on the left at T9-T10 secondary to spurring from the facet joint. ??MRI would likely provide better evaluation. THIS IS AN ELECTRONICALLY VERIFIED FINAL REPORT 09/16/2023 5:39 PM - Electronically signed by ??Hemanth Couch M.D. KH: JÚNIOR D: ??09/16/2023 5:39 PM T: ??09/16/2023 5:39 PM Report ID: [id number] Reading Location: ??[id number] Procedure Note Hemanth Couch MD - 09/16/2023 EXAM DESCRIPTION: CT THORACIC SPINE WO CONTRAST REASON FOR STUDY: Mid-back pain, neuro deficit Came to ED for c/o upper back pain that radiates to left arm. Reports fellon ice in [place] 5 days ago. Reports was seen there and tests negative. TECHNIQUE: Axial images acquired through the thoracic spine without intravenous contrast. Images reviewed with lung, soft tissue and bone windows. Reconstructed coronal and sagittal MPR images reviewed. Images stored on PACS. Automated exposure control was used as a dose optimization technique for this examination. COMPARISON: None FINDINGS: ALIGNMENT: Normal. VERTEBRAE: No fracture. Vertebral body height well-maintained. DISC HEIGHT: Mild intervertebral disc narrowing is noted of the lower thoracic spine. HARDWARE: None in the spine. THORACIC DISCS T1-T12: No significant osseous spinal stenosis or neuroforaminal stenosis. SOFT TISSUES: No soft tissue masses. LOWER CERVICAL: Incompletely imaged. No significant osseous spinalstenosis or osseous foraminal stenosis. UPPER LUMBAR: Incompletely imaged. No significant osseous spinal orosseous neuroforaminal stenosis. OTHER: No other significant abnormality. IMPRESSION: No acute abnormality is seen. Minimal degenerative changesare seen of the lower thoracic spine. There is some partial neural foraminal crowding particularly on the left at T9-T10 secondary to spurring from the facet joint. MRI would likely provide better evaluation. THIS IS AN ELECTRONICALLY VERIFIED FINAL REPORT 09/16/2023 5:39 PM - Electronically signed by Hemanth CALLEJAS: JÚNIOR Report ID: [id number] Reading Location: [id number] Shellie MONTENEGRO IMG CT PROCEDURES Final Result * CT Cervical Spine WO Contrast (09/16/2023 5:28 PM PLUMBING ENGINEERING DRAFTSPERSON) Anatomical Region Laterality Modality Spine N/A Computed Tomogra phy 09/16/2023 5:35 PM PLUMBING ENGINEERING DRAFTSPERSON Narrative 09/16/2023 5:36 PM PLUMBING ENGINEERING DRAFTSPERSON EXAM DESCRIPTION: ?? CT CERVICAL SPINE WO CONTRAST REASON FOR STUDY: ?? Neck pain, acute, no red flags ?? Came to ED for c/o upper back pain that radiates to left arm. Reports fell on ice in [place] 5 days ago. Reports was seen there and tests negative. ? TECHNIQUE: Axial images through the cervical spine with sagittal and coronal reformatted images. Automated exposure control was used as a dose optimization technique for this examination. COMPARISON: ?? None FINDINGS: ALIGNMENT: ?? Normal. VERTEBRAE: ?? No fracture. Vertebral body heights well-maintained. DISCS: ?? Mild intervertebral disc narrowing is seen at C5-C6 with some mild marginal spurring. HARDWARE: ?? None in the spine. INDIVIDUAL LEVELS: No significant osseous spinal stenosis or neural foraminal stenosis. UPPER THORACIC: ?? Incompletely imaged. No significant osseous spinal stenosis or osseous neural foraminal stenosis. SKULL BASE: ?? No significant finding. LUNG APICES: ?? No significant abnormality. NECK SOFT TISSUES: ?? No significant abnormality. OTHER: ?? No other significant findings. IMPRESSION: ?? No traumatic injury is seen. ??No acute abnormality is identified. ??Minor degenerative changes are noted. THIS IS AN ELECTRONICALLY VERIFIED FINAL REPORT 09/16/2023 5:36 PM - Electronically signed by ??Hemanth CALLEJAS: JÚNIOR D: ??09/16/2023 5:36 PM T: ??09/16/2023 5:36 PM Report ID: [id number] Reading Location: ??[id number] Procedure Note Hemanth Couch MD - 09/16/2023 EXAM DESCRIPTION: CT CERVICAL SPINE WO CONTRAST REASON FOR STUDY: Neck pain, acute, no red flags Came to ED for c/o upper back pain that radiates to left arm. Reports fellon ice in [place] 5 days ago. Reports was seen there and tests negative. TECHNIQUE: Axial images through the cervical spine with sagittal andcoronal reformatted images. Automated exposure control was used as a doseoptimization technique for this examination. COMPARISON: None FINDINGS: ALIGNMENT: Normal. VERTEBRAE: No fracture. Vertebral body heights well-maintained. DISCS: Mild intervertebral disc narrowing is seen at C5-C6 with somemild marginal spurring. HARDWARE: None in the spine. INDIVIDUAL LEVELS: No significant osseous spinal stenosis or neural foraminal stenosis. UPPER THORACIC: Incompletely imaged. No significant osseous spinalstenosis or osseous neural foraminal stenosis. SKULL BASE: No significant finding. LUNG APICES: No significant abnormality. NECK SOFT TISSUES: No significant abnormality. OTHER: No other significant findings. IMPRESSION: No traumatic injury is seen. No acute abnormality is identified. Minor degenerative changes are noted. THIS IS AN ELECTRONICALLY VERIFIED FINAL REPORT 09/16/2023 5:36 PM - Electronically signed by Hemanth Couch M.D. KH: JÚNIOR Report ID: [id number] Reading Location: [id number] Shellie MONTENEGRO [facility] [place] CT PROCEDURES Final Result documented in this encounter Visit Diagnoses Diagnosis Fall, initial encounter- Primary Mid back pain documented in this encounter Administered Medications Inactive Administered Medications - up to 3 most recent administrations Medication Order MAR Action Action Date Dose Rate Site acetaminophen (TYLENOL) tablet 650 mg 650 mg, oral, Once, On Thu09/16/23 at 1845, For 1 dose Given 09/16/2023 6:53 PM [employer]UM[employer] ENGINEERING DRAFTSPERSON 650 mg cyclobenzaprine (FLEXERIL) tablet 10 mg 10 mg, oral, Once, On Thu09/16/23 at 1845, For 1 dose Given 09/16/2023 6:53 PM PLUMBING ENGINEERING DRAFTSPERSON 10 mg dexAMETHasone (DECADRON) preservative free solution 8 mg 8 mg, intramuscular, Once, On Thu09/16/23 at 1949, For 1 dose Given 09/16/2023 7:59 PM PLUMBING ENGINEERING DRAFTSPERSON 8 mg Right Deltoid HYDROcodone-acetaminop hen (NORCO) 5-325 mg per tablet 1 tablet 1 tablet, oral, Once, On Thu09/16/23 at 1949, For 1 dose, Indications: PainIndications:Pain Given 09/16/2023 7:59 PM PLUMBING ENGINEERING DRAFTSPERSON 1 tablet lidocaine (LIDODERM) 5 % patch 1 patch 1 patch, transdermal, Administer over 12 Hours, Once, On Thu09/16/23 at 1845, For 1 dose, Do not cover the holes on the top side of the patch., Apply to affected area: back Medication Applied 09/16/2023 6:54 PM PLUMBING ENGINEERING DRAFTSPERSON 1 patch Back documented in this encounter Active and Recently Administered Medications Times are shown in PLUMBING ENGINEERING DRAFTSPERSON. Scheduled Medication Order 09/14/2023 09/15/2023 09/16/2023 acetaminophen (TYLENOL) tablet 650 mg (COMPLETED) 650 mg, oral, Once, On Thu09/16/23 at 1845, For 1 dose 1852 (Given - Provid er: Tereza Montejo RN) cyclobenzaprine (FLEXERIL) tablet 10 mg (COMPLETED) 10 mg, oral, Once, On Thu09/16/23 at 184, For 1 dose 1852 (Given - Provid er: Tereza Montejo RN) dexAMETHasone (DECADRON) preservative free solution 8 mg (COMPLETED) 8 mg, intramuscular, Once, On Thu09/16/23 at 194, For 1 dose 1958 (Given - Provid er: Patience Quiñones RN) HYDROcodone-acetaminophen (NORCO) 5-325 mg per tablet 1 tablet (COMPLETED) 1 tablet, oral, Once, On Thu09/16/23 at 194, For 1 dose, Indications: Pain 1958 (Given - Provid er: Patience Quiñones RN) lidocaine (LIDODERM) 5 % patch 1 patch 1 patch, transdermal, Administer over 12 Hours, Once, On Thu09/16/23 at 1845, For 1 dose, Do not cover the holes on the top side of the patch., Apply to affected area: back 1853 (Medication Eric lied - Provider: Tereza Montejo RN)[id number] (Due: Medication Removed - Provider: Automatic Discharge Provider - Comment: Time automatically adjusted from order being discontinued) documented in this encounter Care Teams Chief Yeoman Relationship Specialty Start Date End Date Nathan Martinez MD PCP - General Family Practice 09/10/20 Monique Garcia MD Referring Physician Gastroenterology 06/11/20 Monique Garcia MD Referring Physician Gastroenterology 06/11/20 documented as of this encounter
--- OUTSIDE RECORDS SUMMARY | 2024-09-03 00:59 | XMS_ITS | Encounter Summary ---
Author Organization [facility] Healthcare Address [address] [place] [address] Care Team Providers Care Deputy Director Name Role Phone Monique Gacria MD Unavailable [phone] Monique Garcia MD Unavailable [phone] Nathan Martinez MD Primary Care Provider [phone] Encounter Details Date Type Department Care Team (Late st Contact Info) Description 01/10/2024 Orders Only [facility] Health Information Management [address] [place] [id number] Scanning, Provider Social History Tobacco Use Types [...] points, staff should administer the PHQ-9) 0 01/08/2024 Personal Safety Answer Date Recorded Have you [...] Date/Time Associated Diagnosis Comments SCAN - RADIOLOGY/IMAGING 01/10/2024 SCAN - LABS 01/10/2024 documented in this encounter Results * SCAN - LABS (01/10/2024) us Provider Scanning Final Result * SCAN - RADIOLOGY/IMAGING (01/10/2024) Anatomical Region Laterality Modality Other us Provider Scanning Final Result documented in this encounter Visit Diagnoses Not on filedocumented in this encounter Care Teams Deputy Director Relationship Specialty Start Date End Date Nathan Martinez MD PCP - General Family Practice 09/10/20 Monique Garcia MD Referring Physician Gastroenterology 06/11/20 Monique Garcia MD Referring Physician Gastroenterology 06/11/20 documented as of this encounter
--- OUTSIDE RECORDS SUMMARY | 2024-09-03 00:59 | XMS_ITS | Encounter Summary ---
Author Organization [facility] Healthcare Address [address] [place] [address] Care Team Providers Care Customs And Border Protection Inspector Name Role Phone Monique Garcia MD Unavailable Monique Garcia MD Unavailable [phone] Nathan Martinez MD Primary Care Provider [phone] Encounter Details Date Type Department Care Team (Late st Contact Info) Description 06/14/2023 Orders Only [facility] [place] Health Information Management [address] [place] [id number] Scanning, Provider Social History Tobacco Use Types [...] staff should administer the PHQ-9) 0 06/23/2023 Sex and Gender Information Value Date Recorded Sex Assigned at Not on file Legal Sex Male 2:58 AM CDT Gender Identity Male 03/10/2022 6:57 PM CDT Sexual Orientation Not on file documented as of this encounter Plan of Treatment Not on file documented as of this encounter Procedures Procedure Name Priority Date/Time Associated Diagnosis Comments SCAN - RADIOLOGY/IMAGING 06/14/2023 documented in this encounter Results * SCAN - RADIOLOGY/IMAGING (06/14/2023) Anatomical Region Laterality Modality Other us Provider Scanning Final Result documented in this encounter Visit Diagnoses Not on filedocumented in this encounter Care Teams Customs And Border Protection Inspector Relationship Specialty Start Date End Date Nathan Martinez MD PCP - General Family Practice 09/10/20 Monique Garcia MD Referring Physician Gastroenterology 06/11/20 Monique Garcia MD Referring Physician Gastroenterology 06/11/20 documented as of this encounter
--- OUTSIDE RECORDS SUMMARY | 2024-09-03 00:59 | XMS_ITS | Encounter Summary ---
Author Organization [facility] Healthcare Address [address] [place] [address] Care Team Providers Care Information Technology Internship Name Role Phone Monique Garcia MD Unavailable [phone] Monique Garcia MD Unavailable [phone] Nathan Martinez MD Primary Care Provider [phone] Encounter Details Date Type Department Care Team (Late st Contact Info) Description 07/25/2023 Orders Only [facility] [place] [place] Health Information Management [address] [place] [address] Scanning, Provider Social History Tobacco Use Types [...] Priority Date/Time Associated Diagnosis Comments SCAN - LABS 07/25/2023 documented in this encounter Results * SCAN - LABS (07/25/2023) us Provider Scanning Final Result documented in this encounter Visit Diagnoses Not on filedocumented in this encounter Care Teams Information Technology Internship Relationship Specialty Start Date End Date Nathan Martinez MD PCP - General Family Practice 09/10/20 Monique Garcia MD Referring Physician Gastroenterology 06/11/20 Monique Garcia MD Referring Physician Gastroenterology 06/11/20 documented as of this encounter
--- OUTSIDE RECORDS SUMMARY | 2024-09-03 00:59 | XMS_ITS | Encounter Summary ---
Author Organization [facility] Healthcare Address [address] [place] [address] Care Team Providers Care Web Offset Press Feeder Name Role Phone Monique Garcia MD Unavailable [phone] Monique Garcia MD Unavailable [phone] Nathan Martinez MD Primary Care Provider [phone] Reason for Referral * Consultation (Routine) - Closed Specialty Diagnoses / Procedures Referred By Hugo dang Referred To Contact Ophthalmology Diagnoses Controlled type 2 diabetes mellitus without complication, without long-term current use of insulin (CMS/[facility]) (HCC) Nathan Martinez MD [address] [place] [address] Phone: tel: fax: Calin Brandon MD [address] [place] [address] Phone: tel: fax: Referral ID Status Reason Start Date Expiration Date V isits Requested Visits Authorized [id number] Closed Specialty Services Required 10/16/2023 11/14/2024 1 1 Question Answer Please select the performing region: External Order [171] To loc/pos [facility] [[id number]] # of visits: 1 TROSTATIC PAINTER Reason for Visit * Reason Comments Follow-up Follow up r/t anemia , lipidemia, diabetes, insomnia. No current labs in chart. Medication Problem States he has been o ut of Trulicity for a month and a half due to supply issues. Would like to discuss alternatives. Ozempic is available at patient's pharmacy. Encounter Details Date Type Department Care Team (Latest Contact Info) Description 10/16/2023 12:45 PM ELECTROSTATIC PAINTER Office Visit [facility] Primary Care [address] [place] [address] Nathan Martinez MD [address], [place] [id number] Controlled type 2 diabetes mellitus without complication, without long-term current use of insulin (CMS/HCC) (HCC) (Primary Dx); Mixed hyperlipidemia; Major depression in remission (HCC); Psychophysiologic insomnia; Over weight; Attention deficit disorder (ADD) without hyperactivity Social History Tobacco Use Types Packs/Day Years [...] Sign Reading Time Taken Comments Blood Pressure 110/68 10/16/2023 12:48 PM ELECTROSTATIC PAINTER Pulse 86 10/16/2023 12:48 PM ELECTROSTATIC PAINTER Temperature 36.7 ??C (98.1 ??F) 10/16/2023 12:[address] Respiratory Rate 20 10/16/2023 12:48 PM ELECTROSTATIC PAINTER Oxygen Saturation 98% 10/16/2023 12:48 PM ELECTROSTATIC PAINTER Inhaled Oxygen Concentration - - Weight 89.9 kg (198 lb 3.2 oz) 10/16/2023 12:48 PM ELECTROSTATIC PAINTER Height 180.3 cm (5' 10.98 ) 10/16/2023 12:48 PM ELECTROSTATIC PAINTER Body Mass Index 27.66 10/16/2023 12:48 PM ELECTROSTATIC PAINTER documented in this encounter Ordered Prescriptions Prescription Sig Dispense Quantity Refills Last Filled Start Date End Date semaglutide 0.25 mg or 0.5 mg (2 mg/3 mL) pen injector injection Inject 0.5 mg under the skin every 7 days 2 mL 3 10/16/2023 04/14/2024 semaglutide 0.25 mg or 0.5 mg (2 mg/3 mL) pen injector injection Inject 0.5 mg under the skin every 7 days 2 mL 3 10/16/2023 10/16/2023 modafiniL (PROVIGIL) 100 mg tablet Take 1 tablet (100 mg total) by mouth daily 90 tablet 1 10/16/2023 02/17/2024 traZODone (DESYREL) 100 mg tablet Take 1 tablet by mouth every night 90 tablet 1 10/16/2023 05/02/2024 escitalopram (LEXAPRO) 20 mg tablet Take 1 tablet (20 mg total) by mouth daily 90 tablet 1 10/16/2023 05/02/2024 documented in this encounter Progress Notes * Nathan Martinez MD - 10/16/2023 12:45 PM CST Subjective/Objective Patient ID: Erich Allen is a 53 y.o. male. Chief Complaint No chief complaint on file. There were no vitals taken for this visit. PHQ Screening History of Present Illness needs dilated eye exam and urine microalbumin Patient presents for 1. Diabetes taking glipizide 10 mg /Trulicitydaily without hypoglycemic symptoms. Last A1c in May was 6.9. has been out of Trulicity for 6 weeks. 2. Lipidemia taking atorvastatin 10 mg daily without myalgias. Patient is overdue for repeat lipids last LDL 139. 3. Chronic insomnia taking trazodone 100 mg nightly. 4. Depression. I Patient's depression is well controlled . Taking Lexapro 20 mg every day without any side effects . No manic symptoms or irritability. No substance use. Not suicidal or homicidal. PHQ-9 score is 0. 5. Off-label use of Provigil for attention deficit disorder. Allows for decreased distractibility, task completion, better organization, and improv ed focus no chest discomfort or palpitations. Review of Systems Gen.: No fever, night [...] agitation or akathisia. Orientation and concentration normal. Feet: Skin clear and pulses good. claw toes and bunions.Diabetic foot exam: Left monofilament exam: normal Right monofilament exam: normal Assessment/Plan Diagnoses and all orders for this visit: Controlled type 2 diabetes mellitus without complication, without long-term current use of insulin ([facility]) (HCC) (E11.9) (Primary) Assessment & Plan: A1c today . Continue glipizide/Trulicity at same dosage. Well controlled. Mixed hyperlipidemia (E78.2) Assessment & Plan: Continue atorvastatin at same dosage. Well controlled. Nasal polyp (J33.9) Major depression in remission (HCC) (F32.5) Assessment & Plan: Continue Lexapro at same dosage. Well controlled. Psychophysiologic insomnia (F51.04) Assessment & Plan: Continue trazodone at same dosage. Well controlled. TROSTATIC PAINTER documented in this encounter Miscellaneous Notes * Assessment & Plan Note - Nathan Martinez MD - 10/16/2023 1:08 PM ELECTROSTATIC PAINTER Associated Problem(s): ADD (attention deficit disorder) Takes Provigil off-label. Adequate control with medicine. No side effects. TROSTATIC PAINTER * Assessment & Plan Note - Nathan Martinez MD - 10/15/2023 12:07 PM ELECTROSTATIC PAINTER Associated Problem(s): Over weight Diabetic foot exam: Left monofilament exam: normal Right monofilament exam: normal TROSTATIC PAINTER * Assessment & Plan Note - Nathan Martinez MD - 10/15/2023 11:36 AM ELECTROSTATIC PAINTER Associated Problem(s): Psychophysiologic insomnia Continue trazodone at same dosage. Well controlled. TROSTATIC PAINTER * Assessment & Plan Note - Nathan Martinez MD - 10/15/2023 11:35 AM ELECTROSTATIC PAINTER Associated Problem(s): Major depression in remission (HCC) Continue Lexapro at same dosage. Well controlled. TROSTATIC PAINTER * Assessment & Plan Note - Nathan Martinez MD - 10/15/2023 11:35 AM ELECTROSTATIC PAINTER Associated Problem(s): Lipidemia Continue atorvastatin at same dosage. Well controlled. TROSTATIC PAINTER * Assessment & Plan Note - Nathan Martinez MD - 10/15/2023 11:29 AM ELECTROSTATIC PAINTER Associated Problem(s): Controlled type 2 diabetes mellitus without complication, without long-term current use of insulin ([facility]) ([facility]) A1c today . Continue glipizide/Trulicity at same dosage. Well controlled. TROSTATIC PAINTER documented in this encounter Plan of Treatment Scheduled Referrals Name Type Priority Associated Diagnoses Order Schedule Ambulatory referral to Ophthalmology Outpatient Referral Routine Controlled type 2 diabetes mellitus without complication, without long-term current use of insulin (CMS/HCC) ([facility]) Expected: 10/16/2023 (Approximate), Expires: 10/15/2024 documented as of this encounter Procedures Procedure Name Priority Date/Time Associated Diagnosis Comments POCT HEMOGLOBIN A1C Routine 10/16/2023 1 :14 PM ELECTROSTATIC PAINTER Controlled type 2 diabetes mellitus without complication, without long-term current use of insulin (CMS/HCC) ([facility]) documented in this encounter Results * (ABNORMAL) POCT hemoglobin A1c (10/16/2023 1:14 PM ELECTROSTATIC PAINTER) Hemoglobin A1C, POC 8.5 % Blood 10/16/2023 1:14 PM ELECTROSTATIC PAINTER Nathan Martinez MD POINT OF CARE TEST ORDERAB LES Final Result documented in this encounter Visit Diagnoses Diagnosis Controlled type 2 diabetes mellitus without complication, without long-term current use of insulin (CMS/HCC) (HCC)- Primary Mixed hyperlipidemia Major depression in remission (HCC) Major depressive disorder, single episode in full remission Psychophysiologic insomnia Over weight Overweight Attention deficit disorder (ADD) without hyperactivity documented in this encounter Discontinued Medications Medication Sig Discontinue Reason Start Date End Da te cyclobenzaprine (FLEXERIL) 10 mg tablet Take 1 tablet (10 mg total) by mouth 2 (two) times a day as needed for muscle spasms for up to 3 days Therapy completed 09/16/2023 10/16/2023 lidocaine (LIDODERM) 5 % Place 1 patch on the skin daily for 7 days Remove & discard patch within 12 hours or as directed by MD. Therapy completed 09/16/2023 10/16/2023 traZODone (DESYREL) 100 mg tablet Take 1 tablet by mouth every night Reorder 06/23/2023 10/16/2023 escitalopram (LEXAPRO) 20 mg tablet Take 1 tablet (20 mg total) by mouth daily Reorder 06/23/2023 10/16/2023 modafiniL (PROVIGIL) 100 mg tablet Take 1 tablet (100 mg total) by mouth daily Reorder 06/23/2023 10/16/2023 dulaglutide (Trulicity) 1.5 mg/0.5 mL pen injector Inject 0.5 mL (1.5 mg total) under the skin once a week Alternate therapy 08/27/2023 10/16/2023 semaglutide 0.25 mg or 0.5 mg (2 mg/3 mL) pen injector injection Inject 0.5 mg under the skin every 7 days Reorder 10/16/2023 10/16/2023 documented as of this encounter Care Teams Web Offset Press Feeder Relationship Specialty Start Date End Date Nathan Martinez MD PCP - General Family Practice 09/10/20 Monique Garcia MD Referring Physician Gastroenterology 06/11/20 Monique Garcia MD Referring Physician Gastroenterology 06/11/20 documented as of this encounter
--- OUTSIDE RECORDS SUMMARY | 2024-09-03 00:59 | XMS_ITS | Encounter Summary ---
Author Organization [facility] Healthcare Address [address] [place] [address] Care Team Providers Care Mortgage Loan Specialist Name Role Phone Monique Garcia MD Unavailable [phone] Monique Garcia MD Unavailable [phone] Nathan Martinez MD Primary Care Provider [phone] Encounter Details Date Type Department Care Team (Late st Contact Info) Description 05/09/2024 Orders Only [facility] Health Information Management [address] [place] [id number] Scanning, Provider Social History Tobacco Use Types [...] points, staff should administer the PHQ-9) 0 05/02/2024 Personal Safety Answer Date Recorded Have you [...] Date/Time Associated Diagnosis Comments SCAN - RADIOLOGY/IMAGING 05/09/2024 SCAN - PATHOLOGY 05/09/2024 documented in this encounter Results * SCAN - PATHOLOGY (05/09/2024) us Provider Scanning Final Result * SCAN - RADIOLOGY/IMAGING (05/09/2024) Anatomical Region Laterality Modality Other us Provider Scanning Final Result documented in this encounter Visit Diagnoses Not on filedocumented in this encounter Care Teams Mortgage Loan Specialist Relationship Specialty Start Date End Date Nathan Martinez MD PCP - General Family Practice 09/10/20 Monique Garcia MD Referring Physician Gastroenterology 06/11/20 Monique Garcia MD Referring Physician Gastroenterology 06/11/20 documented as of this encounter
--- OUTSIDE RECORDS SUMMARY | 2024-09-03 00:59 | XMS_ITS | Encounter Summary ---
Author Organization [facility] Healthcare Address [address] [place] [address] Care Team Providers Care Hot Pond Operator Name Role Phone Monique Garcia MD Unavailable [phone] Monique Garcia MD Unavailable [phone] Nathan Martinez MD Primary Care Provider [phone] Reason for Referral * Consultation (Routine) - Closed Specialty Diagnoses / Procedures Referred By Hugo dang Referred To Contact Ophthalmology Diagnoses Type 2 diabetes mellitus with hyperglycemia, without long-term current use of insulin (HCC) Nathan Martinez MD [address] [place] [address] Phone: tel: fax: [facility] [address] [place] [address] Phone: tel: fax: Referral ID Status Reason Start Date Expiration Date V isits Requested Visits Authorized [id number] Closed Specialty Services Required 01/08/2024 02/06/2025 1 1 Question Answer Please select the performing region: External Order [171] To loc/pos [facility] [[id number]] # of visits: 1 * Consultation (Routine) - Closed Specialty Diagnoses / Procedures Referred By Hugo dang Referred To Contact Diagnoses Adhesion of omentum Nathan Martinez MD [address] [place] [address] Phone: tel: fax: Jean Marie Silva MD Phone: tel: fax: Referral ID Status Reason Start Date Expiration Date V isits Requested Visits Authorized [id number] Closed Specialty Services Required 01/08/2024 02/06/2025 1 1 Question Answer Please select the performing region: [facility] (All Locations) [167] # of visits: 1 Reason for Visit * Reason Comments Follow-up Six month follow up r/t lipidemia, diabetes, anemia, depression. Some current labs in chart. Abdominal Pain C/o left lower abdom inal pain since Thursday. Pain radiates into low back. Pain is constant. Describes pain as gnawing and cramping. Last bowel movement was Thursday. States stool was very hard. C/o nausea and dry heaving. Denies fever. Has taken Milk of Magnesia without relief. Referral Request Requesting referral to colorectal surgeon for adhesion removal. Encounter Details Date Type Department Care Team (Late st Contact Info) Description 01/08/2024 9:30 AM CDT Office Visit [facility] Primary Care [address] [place] [address] Nathan Martinez MD [address] [place] [address] Type 2 diabetes mellitus with hyperglycemia, without long-term current use of insulin ([facility]/HCC) (HCC) (Primary Dx); Psychophysiologic insomnia; Attention deficit disorder (ADD) without hyperactivity; Major depression in remission ([facility]); Mixed hyperlipidemia; Over weight; Adhesion of omentum; Slow transit constipation Social History Tobacco Use Types Packs/Day Years [...] Sign Reading Time Taken Comments Blood Pressure 108/70 01/08/2024 9:42 AM CDT Pulse 74 01/08/2024 9:42 AM CDT Temperature 36.4 ??C (97.6 ??F) 01/08/2024 9:42 AM CD T Respiratory Rate 18 01/08/2024 9:42 AM CDT Oxygen Saturation 94% 01/08/2024 9:42 AM CDT Inhaled Oxygen Concentration - - Weight 86.4 kg (190 lb 6.4 oz) 01/08/2024 9:42 A M CDT Height 180.3 cm (5' 10.98 ) 01/08/2024 9:42 AM C DT Body Mass Index 26.57 01/08/2024 9:42 AM CDT documented in this encounter Ordered Prescriptions Prescription Sig Dispense Quantity Refills Last Filled Start Date End Date linaCLOtide (LINZESS) 290 mcg capsule Take 1 capsule (290 mcg total) by mouth daily 48 capsule 01/08/2024 4 documented in this encounter Progress Notes * Nathan Martinez MD - 01/08/2024 9:30 AM CDT Subjective/Objective Patient ID: Erich Aleln is a 53 y.o. male. Chief Complaint Follow-up (Six month follow up r/t lipidemia, diabetes, anemia, depression. Some current labs in chart.), Abdominal Pain (C/o left lower abdominal pain since Thursday. Pain radiates into low back. Pain is constant. Describes pain as gnawing and cramping. Last bowel movement was Thursday. States stool was very hard. C/o nausea and dry heaving. Denies fever. Has taken Milk of Magnesia without relief. ), and Referral Request (Requesting referral to colorectal surgeon for adhesion removal.) Vitals BP 108/70 (BP Location: Left arm, Patient Position: Sitting) Pulse 74 Temp 36.4 ??C (97.6 ??F) (Skin) Resp 18 Ht 180.3 cm (5' 10.98 ) Wt 86.4 kg (190 lb 6.4 oz) SpO2 94% BMI 26.57 kg/m?? PHQ Screening Over the last 2 weeks, how often have you been bothered by any of the following problems? Little Interest or Pleasure in Doing Things: Not at all Feeling Down, Depressed, or Hopeless: Not at all PHQ-2 Total Score (If total score is 3 or more points, staff should administer the PHQ-9): 0 Over the past 2 weeks, how often have you been bothered by any of the following problems? Little Interest or Pleasure in Doing Things: Not at all Feeling Down, Depressed, or Hopeless: Not at all PHQ-2 Total Score (If total score is 3 or more points, staff should administer the PHQ-9): 0 History of Present Illness Patient presents for follow-up 1. Diabetes taking glipizide 10 mg and Ozempic 0.5 mg weekly withouthypoglycemic symptoms. A1c in September was 8.5. A1c on December 05 at [facility] was 7.3. 2. Chronic insomnia taking trazodone 100 mg nightly without side effects. 3. Takes Provigil 100 mg daily for ADD and he is well aware this is off-label use. This is what has worked best for his ADD. 4. Depression. Patient's depression is well controlled . Taking Lexapro 20 mg every day without any sideeffects . No manic symptoms or irritability. No substance use. Not suicidal or homicidal. 5. Lipidemia taking atorvastatin 10 mg daily without myalgias. Review of Systems Gen.: No fever, night [...] agitation or akathisia. Orientation and concentration normal. Assessment/Plan Diagnoses and all orders for this visit: Type 2 diabetes mellitus with hyperglycemia, without long-term current use of insulin ([facility]) ([facility]) (E11.65) (Primary) Assessment & Plan: Glipizide at same dosage. A1c is improved at 6.9 today Orders: - POCT hemoglobin A1c - Ambulatory referral to Ophthalmology; Future Psychophysiologic insomnia (F51.04) Assessment & Plan: Continue trazodone at same dosage. Well controlled. Attention deficit disorder (ADD) without hyperactivity (F98.8) Assessment & Plan: Continue Provigil at same dosage. Well controlled. Major depression in remission ([facility]) (F32.5) Assessment & Plan: Continue Lexapro at same dosage. Well controlled. Mixed hyperlipidemia (E78.2) Assessment & Plan: Continue atorvastatin same dosage but needs repeat lipids. Over weight (E66.3) Assessment & Plan: BMI Follow-up includes: nutrition counseling and exercise counseling. Adhesion of omentum (K66.0) Assessment & Plan: Refer to colorectal surgeon. Slow transit constipation (K59.01) Assessment & Plan: Constipation associated with some abdominal cramping. We will give him some samples of Linzess 290 mcg to try and if helpful we can give him a prescription. Other orders - Ambulatory referral to Colorectal Surgery; Future documented in this encounter Miscellaneous Notes * Assessment & Plan Note - Nathan Martinez MD - 01/08/2024 10:08 AM CDT Associated Problem(s): Slow transit constipation Constipation associated with some abdominal cramping. We will give him some samples of Linzess 290 mcg to try and if helpful we can give him a prescription. * Assessment & Plan Note - Nathan Martinez MD - 01/08/2024 10:00 AM CDT Associated Problem(s): Adhesion of omentum Refer to colorectal surgeon. * Addendum Note - Sujata Sharif RN - 01/08/2024 9:30 AM CDTAddended by: SUJATA SHARIF on: 01/08/2024 11:17 AM Modules accepted: Orders * Assessment & Plan Note - Nathan Martinez MD - 01/07/2024 4:09 PM CDT Associated Problem(s): Over weight BMI Follow-up includes: nutrition counseling and exercise counseling. * Assessment & Plan Note - Nathan Martinez MD - 01/07/2024 4:08 PM CDT Associated Problem(s): Lipidemia Continue atorvastatin same dosage but needs repeat lipids. * Assessment & Plan Note - Nathan Martinez MD - 01/07/2024 4:04 PM CDT Associated Problem(s): Major depression in remission (HCC) Continue Lexapro at same dosage. Well controlled. * Assessment & Plan Note - Nathan Martinez MD - 01/07/2024 4:03 PM CDT Associated Problem(s): ADD (attention deficit disorder) Continue Provigil at same dosage. Well controlled. * Assessment & Plan Note - Nathan Martinez MD - 01/07/2024 4:02 PM CDT Associated Problem(s): Psychophysiologic insomnia Continue trazodone at same dosage. Well controlled. * Assessment & Plan Note - Nathan Martinez MD - 01/07/2024 4:02 PM CDT Associated Problem(s): Type 2 diabetes mellitus with hyperglycemia, without long-term current use of insulin (HCC) Glipizide at same dosage. A1c is improved at 6.9 today documented in this encounter Plan of Treatment Scheduled Referrals Name Type Priority Associated Diagnoses Order Schedule Ambulatory referral to Colorectal Surgery Outpatient Referral Routine Adhesion of omentum Expected: 01/22/2024 (Approximate), Expires: 01/07/2025 Ambulatory referral to Ophthalmology Outpatient Referral Routine Type 2 diabetes mellitus with hyperglycemia, without long-term current use of insulin ([facility]) (HCC) Expected: 01/22/2024 (Approximate), Expires: 01/07/2025 documented as of this encounter Procedures Procedure Name Priority Date/Time Associated Diagnosis Comments POCT HEMOGLOBIN A1C Routine 01/08/2024 1 0:14 AM CDT Type 2 diabetes mellitus with hyperglycemia, without long-term current use of insulin ([facility]) ([facility]) documented in this encounter Results * (ABNORMAL) POCT hemoglobin A1c (01/08/2024 10:14 AM CDT) Hemoglobin A1C, POC 6.9 % Blood 01/08/2024 10:1 4 AM CDT Nathan Martinez MD POINT OF CARE TEST ORDERAB LES Final Result documented in this encounter Visit Diagnoses Diagnosis Type 2 diabetes mellitus with hyperglycemia, without long-term current use of insulin (HCC)- Primary Psychophysiologic insomnia Attention deficit disorder (ADD) without hyperactivity Major depression in remission (HCC) Major depressive disorder, single episode in full remission Mixed hyperlipidemia Over weight Overweight Adhesion of omentum Peritoneal adhesions (postoperative) (postinfection) Slow transit constipation documented in this encounter Care Teams Hot Pond Operator Relationship Specialty Start Date End Date Nathan Martinez MD PCP - General Family Practice 09/10/20 Monique Garcia MD Referring Physician Gastroenterology 06/11/20 Monique Garcia MD Referring Physician Gastroenterology 06/11/20 documented as of this encounter
--- OUTSIDE RECORDS SUMMARY | 2024-09-03 00:59 | XMS_ITS | Encounter Summary ---
Author Organization [facility] Healthcare Address [address] [place] [address] Care Team Providers Care Medical Cost Consultant Name Role Phone Monique Garcia MD Unavailable Monique Garcia MD Unavailable [phone] Nathan Martinez MD Primary Care Provider [phone] Encounter Details Date Type Department Care Team (Late st Contact Info) Description 11/12/[address] [facility] Health Information Management [address] [place] [id number] Scanning, Provider Social History Tobacco Use Types [...] Date/Time Associated Diagnosis Comments SCAN - LABS 11/12/2023 documented in this encounter Results * SCAN - LABS (11/12/2023) us Provider Scanning Final Result documented in this encounter Visit Diagnoses Not on filedocumented in this encounter Care Teams Medical Cost Consultant Relationship Specialty Start Date End Date Nathan Martinez MD PCP - General Family Practice 09/10/20 Monique Garcia MD Referring Physician Gastroenterology 06/11/20 Monique Garcia MD Referring Physician Gastroenterology 06/11/20 documented as of this encounter
--- OUTSIDE RECORDS SUMMARY | 2024-09-03 00:59 | XMS_ITS | Encounter Summary ---
Author Organization [facility] Healthcare Address [address] [place] [address] Care Team Providers Care Game Protector Name Role Phone Monique Garcia MD Unavailable [phone] Monique Garcia MD Unavailable [phone] Nathan Martinez MD Primary Care Provider [phone] Encounter Details Date Type Department Care Team (Late st Contact Info) Description 05/02/2024 Orders Only [facility] [place] Health Information Management [address] [place] [address] Scanning, Provider Social History Tobacco Use Types [...] Date/Time Associated Diagnosis Comments SCAN - RADIOLOGY/IMAGING 05/02/2024 documented in this encounter Results * SCAN - RADIOLOGY/IMAGING (05/02/2024) Anatomical Region Laterality Modality Other us Provider Scanning Final Result documented in this encounter Visit Diagnoses Not on filedocumented in this encounter Care Teams Game Protector Relationship Specialty Start Date End Date Nathan Martinez MD PCP - General Family Practice 09/10/20 Monique Garcia MD Referring Physician Gastroenterology 06/11/20 Monique Garcia MD Referring Physician Gastroenterology 06/11/20 documented as of this encounter
--- OUTSIDE RECORDS SUMMARY | 2024-09-03 00:59 | XMS_ITS | Encounter Summary ---
Author Organization [facility] Healthcare Address [address] [place] [address] Care Team Providers Care Tool Straightener Name Role Phone Monique Garcia MD Unavailable [phone] Monique Garcia MD Unavailable [phone] Nathan Martinez MD Primary Care Provider [phone] Encounter Details Date Type Department Care Team (Late st Contact Info) Description 01/17/2024 Orders Only [facility] [place] Health Information Management [address] [place] [address] Scanning, Provider Social History Tobacco Use Types [...] Date/Time Associated Diagnosis Comments SCAN - RADIOLOGY/IMAGING 01/17/2024 SCAN - LABS 01/17/2024 documented in this encounter Results * SCAN - LABS (01/17/2024) us Provider Scanning Final Result * SCAN - RADIOLOGY/IMAGING (01/17/2024) Anatomical Region Laterality Modality Other us Provider Scanning Final Result documented in this encounter Visit Diagnoses Not on filedocumented in this encounter Care Teams Tool Straightener Relationship Specialty Start Date End Date Nathan Martinez MD PCP - General Family Practice 09/10/20 Monique Garcia MD Referring Physician Gastroenterology 06/11/20 Monique Garcia MD Referring Physician Gastroenterology 06/11/20 documented as of this encounter
--- OUTSIDE RECORDS SUMMARY | 2024-09-03 00:59 | XMS_ITS | Encounter Summary ---
Author Organization [facility] Healthcare Address [facility] [place] [address] Care Team Providers Care Ovens Supervisor Name Role Phone Monique Garcia MD Unavailable [phone] Monique Garcia MD Unavailable [phone] Nathan Martinez MD Primary Care Provider [phone] Reason for Referral * Diagnostic Imaging (Routine) - Authorized Specialty Diagnoses / Procedures Referred By Hugo dang Referred To Contact Diagnoses Chronic pain of right knee Procedures XR Knee Right 3 Vw Nathan Martinez MD [address] [place] [address] Phone: tel: fax: [facility] [address] [place] [phone] Referral ID Status Reason Start Date Expiration Date V isits Requested Visits Authorized [id number] Authorized 05/02/2024 06/01/2025 1 1 * Consultation (Routine) - Closed Specialty Diagnoses / Procedures Referred By Hugo dang Referred To Contact Orthopedic Surgery Diagnoses Chronic pain of right knee Nathan Martinez MD [address] [place] [address] Phone: tel: fax: [facility] Orthopedics and Sports Medicine [address] [facility] [address] [place] [id number] Phone: tel: fax: Referral ID Status Reason Start Date Expiration Date V isits Requested Visits Authorized [id number] Closed Specialty Services Required 05/02/2024 06/01/2025 1 1 Question Answer Please select the performing region: [facility] [[id number]] Please select the performing department: [facility] 340 [[id number]] # of visits: 1 * Consultation (Routine) - Closed Specialty Diagnoses / Procedures Referred By Contac t Referred To Contact Gastroenterology Diagnoses Chronic abdominal pain Nathan Martinez MD [address] [place] [address] Phone: tel: fax: Monique Garcia MD [address] [facility] [address] [place] [address] Phone: tel: fax: Referral ID Status Reason Start Date Expiration Date V isits Requested Visits Authorized [id number] Closed Specialty Services Required 05/02/2024 06/01/2025 1 1 Question Answer Please select the performing region: External Order [171] # of visits: 1 * Consultation (Routine) - Closed Specialty Diagnoses / Procedures Referred By Contac t Referred To Contact Ophthalmology Diagnoses Type 2 diabetes mellitus with hyperglycemia, without long-term current use of insulin (HCC) Nathan Martinez MD [address] [place] [address] Phone: tel: fax: [facility] [address] [place] [address] Phone: tel: fax: Referral ID Status Reason Start Date Expiration Date V isits Requested Visits Authorized [id number] Closed Specialty Services Required 05/02/2024 06/01/2025 1 1 Question Answer Please select the performing region: External Order [171] To loc/pos [facility] [[id number]] # of visits: 1 Reason for Visit * Reason Comments Hospital Follow Up ER follow up r/t 04/24 visit to [facility] r/t chronic abdominal pain. Reports hospital admission while in [place] three weeks prior and NG tube was placed. Continues to c/o intermittent LLQ pain following discharge. Describes pain as gnawing, achy and cramping. Pain is worse after meals. Fasting improves pain. Reports constipation changing to loose stools yesterday. C/o nausea. Denies vomiting. Knee Pain C/o right knee pain over the past three months. Pain only occurs at night, but wakes him up due to severity. Describes pain as achy. Denies edema. Has not taken any otc medications. Encounter Details Date Type Department Care Team (Late st Contact Info) Description 05/02/2024 2:45 PM CDT Office Visit [facility] Primary Care [address] [place] [address] Nathan Martinez MD [address] [place] [address] Controlled type 2 diabetes mellitus without complication, without long-term current use of insulin (CMS/HCC) ([facility]) (Primary Dx); Attention deficit disorder (ADD) without hyperactivity; Major depression in remission ([facility]); Psychophysiologic insomnia; Mixed hyperlipidemia; Over weight; Type 2 diabetes mellitus with hyperglycemia, without long-term current use of insulin (CMS/HCC) ([facility]); Chronic abdominal pain; Chronic pain of right knee Social History Tobacco Use Types Packs/Day Years [...] Sign Reading Time Taken Comments Blood Pressure 112/70 05/02/2024 2:31 PM CDT Pulse 80 05/02/2024 2:31 PM CDT Temperature 36.7 ??C (98.1 ??F) 05/02/2024 2:31 PM CD T Respiratory Rate 18 05/02/2024 2:31 PM CDT Oxygen Saturation 98% 05/02/2024 2:31 PM CDT Inhaled Oxygen Concentration - - Weight 88 kg (194 lb) 05/02/2024 2:31 PM CDT Height 180.3 cm (5' 10.98 ) 05/02/2024 2:31 PM C DT Body Mass Index 27.07 05/02/2024 2:31 PM CDT documented in this encounter Ordered Prescriptions Prescription Sig Dispense Quantity Refills Last Filled Start Date End Date linaCLOtide (LINZESS) 290 mcg capsule Take 1 capsule (290 mcg total) by mouth daily 90 capsule 1 05/02/2024 hyoscyamine ER (LEVBID) 0.375 mg 12 hr tabletIndications: diarrhea Take 1 tablet (0.375 mg total) by mouth every 12 (twelve) hours as needed for cramping 180 tablet 1 05/02/2024 glipiZIDE (GLUCOTROL) 10 mg tabletIndications: type 2 diabetes mellitus Take 1 tablet (10 mg total) by mouth daily 90 tablet 1 05/02/2024 atorvastatin (LIPITOR) 10 mg tablet Take 1 tablet (10 mg total) by mouth daily 90 tablet 1 05/02/2024 semaglutide (OZEMPIC) 1 mg/dose (4 mg/3 mL) pen injector injection Inject 1 mg under the skin every 7 days 3 mL 2 05/02/2024 4 semaglutide (Ozempic) 0.25 mg or 0.5 mg (2 mg/3 mL) pen injector injection Inject 0.5 mg under the skin once a week 9 mL 1 05/02/2024 4 traZODone (DESYREL) 100 mg tablet Take 1 tablet by mouth every night 90 tablet 1 05/02/2024 4 modafiniL (PROVIGIL) 100 mg tablet Take 1 tablet (100 mg total) by mouth daily 90 tablet 05/02/2024 4 escitalopram (LEXAPRO) 20 mg tablet Take 1 tablet (20 mg total) by mouth daily 90 tablet 1 05/02/2024 4 documented in this encounter Progress Notes * Nathan Martinez MD - 05/02/2024 2:45 PM CDT Subjective/Objective Patient ID: Erich Allen is a 54 y.o. male. Chief Complaint Hospital Follow Up (ER follow up r/t 04/24/24 visit to [facility] r/t chronic abdominal pain. Reports hospital admission while in [place] three weeks prior and NG tube was placed. Continues to c/o intermittent LLQ pain following discharge. Describes pain as gnawing, achy and cramping. Pain is worse after meals. Fasting improves pain. Reports constipation changing to loose stools yesterday. C/o nausea. Denies vomiting.) and Knee Pain (C/o right knee pain over the past three months. Pain only occursat night, but wakes him up due to severity. Describes pain as achy. Denies edema. Has not taken anyotc medications.) Vitals BP 112/70 (BP Location: Left arm, Patient Position: Sitting) Pulse 80 Temp 36.7 ??C (98.1 ??F) (Skin) Resp 18 Ht 180.3 cm (5' 10.98 ) Wt 88 kg (194 lb) SpO2 98% BMI 27.07 kg/m?? PHQ Screening Over the last 2 [...] of Present Illness Patient presents for follow-up on diabetes taking glipizide 10 mg daily and Ozempic 0.5 mg weekly. No hypoglycemic symptoms. A1c done on January 07 was 6.3. 2. Chronic insomnia taking trazodone 100 mg nightly without side effects. 3. Takes Provigil 100 mg daily for ADD. He is aware this is off-label.This is worked better for him than typical ADD meds. 4. Depression. Patient's depression is well controlled . Taking Lexapro 20 mg every day without any side effects . No manic symptoms or irritability. No substance use. Not suicidal or homicidal. PHQ-9 score today is 0. 5. Lipidemia taking t atorvastatin 10 mg daily without myalgias. No recent lipids on the chart. Review of Systems Gen.: No fever, night [...] in the urine or change in urination. Musculoskeletal as above Neurological: No focal neurological symptoms, headaches, numbness, [...] bony tenderness. Good range of motion joints. Tender anserine bursa right knee Psych: Not depressed. No agitation or akathisia. Orientation and concentration normal. Assessment/Plan Diagnoses and all orders for this visit: Controlled type 2 diabetes mellitus without complication, without long-term current use of insulin ([facility]) ([facility]) (E11.9) (Primary) Assessment & Plan: A1c today. Continue glipizide/Ozempic at same dosage. A1c is higher. Increase Ozempic to 1 mg Orders: - POCT hemoglobin A1c Attention deficit disorder (ADD) without hyperactivity (F98.8) Assessment & Plan: Continue Provigil at same dosage. Well controlled. Return 3 months Major depression in remission ([facility]) (F32.5) Assessment & Plan: Continue Lexapro at same dosage. Well controlled. Psychophysiologic insomnia (F51.04) Assessment & Plan: Continue trazodone at same dosage. Well controlled. Mixed hyperlipidemia (E78.2) Assessment & Plan: Needs repeat lipids. Continue atorvastatin at same dose. Over weight (E66.3) Assessment & Plan: BMI Follow-up includes: nutrition counseling and exercise counseling. Type 2 diabetes mellitus with hyperglycemia, without long-term current use of insulin ([facility]) ([facility]) (E11.65) - Ambulatory referral to Ophthalmology; Future Chronic abdominal pain (R10.9, G89.29) Assessment & Plan: History of multiple adhesions and several times he has had to had bowel obstruction treated. Constant pain. Worse about 30 minutes after eating. Referral to GI. Left lower quadrant Orders: - Ambulatory referral to Gastroenterology; Future Chronic pain of right knee (M25.561, G89.29) Assessment & Plan: Worsening of chronic right knee pain. We will get x-rays recommend trial NSAID Orders: - Ambulatory referral to Orthopedic Surgery; Future - XR Knee Right 3 Vw; Future Other orders - atorvastatin (LIPITOR) 10 mg tablet; Take 1 tablet (10 mg total) by mouth daily - escitalopram (LEXAPRO) 20 mg tablet; Take 1 tablet (20 mg total) by mouth daily - glipiZIDE (GLUCOTROL) 10 mg tablet; Take 1 tablet (10 mg total) by mouth daily - hyoscyamine ER (LEVBID) 0.375 mg 12 hr tablet; Take 1 tablet (0.375 mg total) by mouth every 12 (twelve) hours as needed for cramping - linaCLOtide (LINZESS) 290 mcg capsule; Take 1 capsule (290 mcg total) by mouth daily - modafiniL (PROVIGIL) 100 mg tablet; Take 1 tablet (100 mg total) by mouth daily - traZODone (DESYREL) 100 mg tablet; Take 1 tablet by mouth every night - semaglutide (OZEMPIC) 1 mg/dose (4 mg/3 mL) pen injector injection; Inject 1 mg under the skin every 7 days documented in this encounter Miscellaneous Notes * Assessment & Plan Note - Nathan Martinez MD - 05/02/2024 3:02 PM CDT Associated Problem(s): Chronic abdominal pain History of multiple adhesions and several times he has had to had bowel obstruction treated. Constant pain. Worse about 30 minutes after eating. Referral to GI. Left lower quadrant * Assessment & Plan Note - Nathan Martinez MD - 05/02/2024 2:48 PM CDT Associated Problem(s): Right knee pain Worsening of chronic right knee pain. We will get x-rays recommend trial NSAID * Assessment & Plan Note - Nathan Martinez MD - 05/01/2024 12:22 PM CDT Associated Problem(s): Over weight BMI Follow-up includes: nutrition counseling and exercise counseling. * Assessment & Plan Note - Nathan Martinez MD - 05/01/2024 12:22 PM CDT Associated Problem(s): Lipidemia Needs repeat lipids. Continue atorvastatin at same dose. * Assessment & Plan Note - Nathan Martinez MD - 05/01/2024 12:22 PM CDT Associated Problem(s): Psychophysiologic insomnia Continue trazodone at same dosage. Well controlled. * Assessment & Plan Note - Nathan Martinez MD - 05/01/2024 12:21 PM CDT Associated Problem(s): Major depression in remission (HCC) Continue Lexapro at same dosage. Well controlled. * Assessment & Plan Note - Nathan Martinez MD - 05/01/2024 12:20 PM CDT Associated Problem(s): ADD (attention deficit disorder) Continue Provigil at same dosage. Well controlled. Return 3 months * Assessment & Plan Note - Nathan Martinez MD - 05/01/2024 12:17 PM CDT Associated Problem(s): Controlled type 2 diabetes mellitus without complication, without long-term current use of insulin ([facility]/HCC) (HCC) A1c today. Continue glipizide/Ozempic at same dosage. A1c is higher. Increase Ozempic to 1 mg documented in this encounter Plan of Treatment Scheduled Orders Name Type Priority Associated Diagnoses Orde r Schedule XR Knee Right 3 Vw Imaging Schedule Routine, Read Routine (OP Routine) Chronic pain of right knee Expected: 05/02/2024, Expires: 05/02/2025 Scheduled Referrals Name Type Priority Associated Diagnoses Order Schedule Ambulatory referral to Ophthalmology Outpatient Referral Routine Type 2 diabetes mellitus with hyperglycemia, without long-term current use of insulin (CMS/HCC) ([facility]) Expected: 05/16/2024 (Approximate), Expires: 05/02/2025 Ambulatory referral to Gastroenterology Outpatient Referral Routine Chronic abdominal pain Expected: 05/16/2024 (Approximate), Expires: 05/02/2025 Ambulatory referral to Orthopedic Surgery Outpatient Referral Routine Chronic pain of right knee Expected: 05/16/2024 (Approximate), Expires: 05/02/2025 documented as of this encounter Procedures Procedure Name Priority Date/Time Associated Diagnosis Comments POCT HEMOGLOBIN A1C Routine 05/02/2024 3 :01 PM CDT Controlled type 2 diabetes mellitus without complication, without long-term current use of insulin (CMS/HCC) ([facility]) documented in this encounter Results * (ABNORMAL) POCT hemoglobin A1c (05/02/2024 3:01 PM CDT) Hemoglobin A1C, POC 7.1 4.0 - 5.6 % Blood 05/02/2024 3:01 PM CDT Nathan Martinez MD POINT OF CARE TEST ORDERAB LES Final Result documented in this encounter Visit Diagnoses Diagnosis Controlled type 2 diabetes mellitus without complication, without long-term current use of insulin (CMS/HCC) ([facility])- Primary Attention deficit disorder (ADD) without hyperactivity Major depression in remission ([facility]) Major depressive disorder, single episode in full remission Psychophysiologic insomnia Mixed hyperlipidemia Over weight Overweight Type 2 diabetes mellitus with hyperglycemia, without long-term current use of insulin ([facility]) Chronic abdominal pain Abdominal pain, unspecified site Chronic pain of right knee documented in this encounter Discontinued Medications Medication Sig Discontinue Reason Start Date End Da te glipiZIDE (GLUCOTROL) 10 mg tabletIndications:type 2 diabetes mellitus Take 1 tablet (10 mg total) by mouth daily Reorder 09/02/2021 05/02/2024 hyoscyamine ER (LEVBID) 0.375 mg 12 hr tabletIndications:diarr hea Take 1 tablet (0.375 mg total) by mouth every 12 (twelve) hours as needed for cramping Reorder 09/02/2021 05/02/2024 atorvastatin (LIPITOR) 10 mg tablet Take 1 tablet (10 mg total) by mouth daily Reorder 05/06/2022 05/02/2024 escitalopram (LEXAPRO) 20 mg tablet Take 1 tablet (20 mg total) by mouth daily Reorder 10/16/2023 05/02/2024 traZODone (DESYREL) 100 mg tablet Take 1 tablet by mouth every night Reorder 10/16/2023 05/02/2024 linaCLOtide (LINZESS) 290 mcg capsule Take 1 capsule (290 mcg total) by mouth daily Reorder 01/08/2024 05/02/2024 modafiniL (PROVIGIL) 100 mg tablet TAKE 1 TABLET(100 MG) BY MOUTH DAILY Reorder 02/17/2024 05/02/2024 semaglutide (Ozempic) 0.25 mg or 0.5 mg (2 mg/3 mL) pen injector injection INJECT 0.5 MG UNDER THE SKIN EVERY 7 DAYS Reorder 04/14/2024 05/02/2024 semaglutide (Ozempic) 0.25 mg or 0.5 mg (2 mg/3 mL) pen injector injection Inject 0.5 mg under the skin once a week Alternate therapy 05/02/2024 05/02/2024 documented as of this encounter Care Teams Ovens Supervisor Relationship Specialty Start Date End Date Nathan Martinez MD PCP - General Family Practice 09/10/20 Monique Garcia MD Referring Physician Gastroenterology 06/11/20 Monique Garcia MD Referring Physician Gastroenterology 06/11/20 documented as of this encounter
--- OUTSIDE RECORDS SUMMARY | 2024-09-03 00:59 | XMS_ITS | Encounter Summary ---
Author Organization [facility] Healthcare Address [address] [place] [address] Care Team Providers Care Magneto Specialist Name Role Phone Monique Garcia MD Unavailable Monique Garcia MD Unavailable [phone] Nathan Martinez MD Primary Care Provider [phone] Encounter Details Date Type Department Care Team (Late st Contact Info) Description 04/24/2024 Orders Only [facility] Health Information Management [address] [place] [address] Scanning, Provider Social History Tobacco Use Types [...] Date/Time Associated Diagnosis Comments SCAN - RADIOLOGY/IMAGING 04/24/2024 documented in this encounter Results * SCAN - RADIOLOGY/IMAGING (04/24/2024) Anatomical Region Laterality Modality Other us Provider Scanning Final Result documented in this encounter Visit Diagnoses Not on filedocumented in this encounter Care Teams Magneto Specialist Relationship Specialty Start Date End Date Nathan Martinez MD PCP - General Family Practice 09/10/20 Monique Garcia MD Referring Physician Gastroenterology 06/11/20 Monique Garcia MD Referring Physician Gastroenterology 06/11/20 documented as of this encounter
--- OUTSIDE RECORDS SUMMARY | 2024-09-03 00:59 | XMS_ITS | Encounter Summary ---
Author Organization [facility] Healthcare Address [address] [place] [address] Care Team Providers Care Spanish Language Lecturer Name Role Phone Monique Garcia MD Unavailable [phone] Monique Garcia MD Unavailable [phone] Nathan Martinez MD Primary Care Provider [phone] Encounter Details Date Type Department Care Team (Late st Contact Info) Description 01/25/2024 Orders Only [facility] [place] Information Management [address] [place] [address] Scanning, Provider Social History Tobacco Use Types [...] Date/Time Associated Diagnosis Comments SCAN - RADIOLOGY/IMAGING 01/25/2024 SCAN - LABS 01/25/2024 documented in this encounter Results * SCAN - LABS (01/25/2024) us Provider Scanning Final Result * SCAN - RADIOLOGY/IMAGING (01/25/2024) Anatomical Region Laterality Modality Other us Provider Scanning Final Result documented in this encounter Visit Diagnoses Not on filedocumented in this encounter Care Teams Spanish Language Lecturer Relationship Specialty Start Date End Date Nathan Martinez MD PCP - General Family Practice 09/10/20 Monique Garcia MD Referring Physician Gastroenterology 06/11/20 Monique Garcia MD Referring Physician Gastroenterology 06/11/20 documented as of this encounter
--- OUTSIDE RECORDS SUMMARY | 2024-09-03 00:59 | XMS_ITS | Encounter Summary ---
Author Organization [facility] Healthcare Address [address] [place] [address] Care Team Providers Care Front Desk Admin Name Role Phone Monique Garcia MD Unavailable [phone] Monique Garcia MD Unavailable [phone] Nathan Martinez MD Primary Care Provider [phone] Reason for Visit * Reason Onset Date Comments Referral Request 01/14/2024 Encounter Details Date Type Department Care Team (Late st Contact Info) Description 01/14/2024 Telephone [facility] Primary Care [address] [place] [address] Nathan Martinez MD [address] [place] [address] Referral Request Social History Tobacco Use Types Packs/Day Years [...] on file documented as of this encounter Miscellaneous Notes * Telephone Encounter - Sujata Hall RN - 01/14/2024 1:45 PM CDT Images from the original note were not included. Insurance referral not required. Confirmation faxed to below number. * Telephone Encounter - Shaw Gutierrez - 01/14/2024 1:26 PM CDT Referral Provider Name (if patient is seeing a nurse practitioner or physician assistant product manager, list the [facility]/PA, but also their collaborating doctor): Jean Marie Silva M.D. Specialty: general surgeon Address: [address] [place] [address], Zip: [facility] Diagnosis Code/Symptom/Reason Patient is being seen: K66.0 Date of Appointment: 01/18 NPI#: [id number] Tax ID#: [id number] Is insurance in chart up to date? yes Additional Comments: because of office closure Thursday for holiday they are requesting high prioirtybefore patients Thursday morning appt Does message need to be routed? Yes-Action Needed documented in this encounter Plan of Treatment Not on file documented as of this encounter Visit Diagnoses Not on filedocumented in this encounter Care Teams Front Desk Admin Relationship Specialty Start Date End Date Nathan Martinez MD PCP - General Family Practice 09/10/20 Monique Garcia MD Referring Physician Gastroenterology 06/11/20 Monique Garcia MD Referring Physician Gastroenterology 06/11/20 documented as of this encounter
--- OUTSIDE RECORDS SUMMARY | 2024-09-03 00:59 | XMS_ITS | Encounter Summary ---
Author Organization [facility] Healthcare Address [facility] [place] [address] Care Team Providers Care Glaucoma Specialist Name Role Phone Monqiue Garcia MD Unavailable [phone] Monique Garcia MD Unavailable [phone] Nathan Martinez MD Primary Care Provider [phone] Reason for Visit * Reason Comments Follow-up DM. 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 Encounter Details Date Type Department Care Team (Late st Contact Info) Description 06/23/2023 1:30 PM CDT Office Visit [facility] Primary Care [address] [place] [address] Nathan Martinez MD [address] [place] [address] Type 2 diabetes mellitus with hyperglycemia, without long-term current use of insulin (CMS/HCC) (HCC) (Primary Dx); Mixed hyperlipidemia; Psychophysiologic insomnia; Major depression in remission (HCC); Over weight Social History Tobacco Use Types Packs/Day Years [...] Sign Reading Time Taken Comments Blood Pressure 114/68 06/23/2023 1:34 PM CDT Pulse 116 06/23/2023 1:34 PM CDT Temperature 36.5 ??C (97.7 ??F) 06/23/2023 1:34 PM CD T Respiratory Rate 18 06/23/2023 1:34 PM CDT Oxygen Saturation 99% 06/23/2023 1:34 PM CDT Inhaled Oxygen Concentration - - Weight 91 kg (200 lb 11.2 oz) 06/23/2023 1:34 PM CDT Height 180.3 cm (5' 10.98 ) 06/23/2023 1:34 PM C DT Body Mass Index 28.01 06/23/2023 1:34 PM CDT documented in this encounter Progress Notes * Nathan Martinez MD - 06/23/2023 1:30 PM CDT Subjective/Objective Patient ID: Erich Allen is a 53 y.o. male. Chief Complaint Follow-up (DM. 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 ) Vitals BP 114/68 (BP Location: Right arm, Patient Position: Sitting) Pulse 116 Temp 36.5 ??C (97.7 ??F) (Skin) Resp 18 Ht 180.3 cm (5' 10.98 ) Wt 91 kg (200 lb 11.2 oz) SpO2 99% BMI 28.01 kg/m?? PHQ Screening Over the last 2 [...] follow-up 1. Diabetes taking glipizide 10 mg daily without hypoglycemic symptoms. Also on Trulicity 1.5 mg weekly. Last glucose in the ER on 1021 was 213. Last A1c in December was 6.7. 2. Lipidemia taking atorvastatin 10 mg daily without myalgias. Last LDL a year ago was 139 3. Chronic insomnia taking trazodone 100 mg nightly without side effects. 4. Depression. Patient's depression is well controlled . Taking Lexapro 20 mg every day without any side effects . No manic symptoms or irritability. No substance use. Not suicidal or homicidal. Review of Systems Gen.: No fever, night [...] hyperglycemia, without long-term current use of insulin ([facility]) (HCC) (E11.65) (Primary) Assessment & Plan: Needs A1c. Continue glipizide and Trulicity same dosage Mixed hyperlipidemia (E78.2) Assessment & Plan: Continue Lipitor same dosage but needs repeat lipids. Psychophysiologic insomnia (F51.04) Assessment & Plan: Continue trazodone same dosage. Well controlled. Major depression in remission (HCC) (F32.5) Assessment & Plan: Continue Lexapro at same dosage. Well controlled. Over weight (E66.3) Assessment & Plan: BMI Follow-up includes: nutrition counseling and exercise counseling. documented in this encounter Miscellaneous Notes * Assessment & Plan Note - Nathan Martinez MD - 06/23/2023 2:08 PM CDT Associated Problem(s): Over weight BMI Follow-up includes: nutrition counseling and exercise counseling. * Assessment & Plan Note - Nathan Martinez MD - 06/23/2023 2:07 PM CDT Associated Problem(s): Major depression in remission (HCC) Continue Lexapro at same dosage. Well controlled. * Assessment & Plan Note - Nathan Martinez MD - 06/23/2023 2:04 PM CDT Associated Problem(s): Psychophysiologic insomnia Continue trazodone same dosage. Well controlled. * Assessment & Plan Note - Nathan Martinez MD - 06/23/2023 2:03 PM CDT Associated Problem(s): Lipidemia Continue Lipitor same dosage but needs repeat lipids. * Assessment & Plan Note - Nathan Martinez MD - 06/23/2023 2:01 PM CDT Associated Problem(s): Type 2 diabetes mellitus with hyperglycemia, without long-term current use of insulin ([facility]) Needs A1c. Continue glipizide and Trulicity same dosage documented in this encounter Plan of Treatment Scheduled Orders Name Type Priority Associated Diagnoses Orde r Schedule Lipid panel Lab Routine Type 2 diabetes mellitus with hyperglycemia, without long-term current use of insulin ([facility]) ([facility]) Expected: 12/22/2023, Expires: 06/23/2024 Comprehensive metabolic panel Lab Routine Type 2 diabetes mellitus with hyperglycemia, without long-term current use of insulin ([facility]) ([facility]) Expected: 12/22/2023, Expires: 06/23/2024 Albumin Creatinine Ratio, Urine Lab Routine Type 2 diabetes mellitus with hyperglycemia, without long-term current use of insulin ([facility]) ([facility]) Expected: 12/22/2023, Expires: 06/23/2024 Hemoglobin A1c Lab Routine Type 2 diabetes mellitus with hyperglycemia, without long-term current use of insulin ([facility]) ([facility]) Expected: 12/22/2023, Expires: 06/23/2024 documented as of this encounter Procedures Procedure Name Priority Date/Time Associated Diagnosis Comments POCT HEMOGLOBIN A1C Routine 06/23/2023 2 :22 PM CDT Type 2 diabetes mellitus with hyperglycemia, without long-term current use of insulin ([facility]) ([facility]) documented in this encounter Results * (ABNORMAL) POCT hemoglobin A1c (06/23/2023 2:22 PM CDT) Hemoglobin A1C, POC 6.9 % Blood 06/23/2023 2:22 PM CDT Nathan Martinez MD POINT OF CARE TEST ORDERAB LES Final Result documented in this encounter Visit Diagnoses Diagnosis Type 2 diabetes mellitus with hyperglycemia, without long-term current use of insulin ([facility])- Primary Mixed hyperlipidemia Psychophysiologic insomnia Major depression in remission ([facility]) Major depressive disorder, single episode in full remission Over weight Overweight documented in this encounter Discontinued Medications Medication Sig Discontinue Reason Start Date End Da te empagliflozin (JARDIANCE) 25 mg tabletIndications:type 2 diabetes mellitus Take 1 tablet (25 mg total) by mouth daily Therapy completed 09/02/2021 06/23/2023 metFORMIN (GLUCOPHAGE) 1,000 mg tablet Take 1 tablet (1,000 mg total) by mouth 2 (two) times a day with meals Alternate therapy 09/02/2021 06/23/2023 documented as of this encounter Care Teams Glaucoma Specialist Relationship Specialty Start Date End Date Nathan Martinez MD PCP - General Family Practice 09/10/20 Monique Garcia MD Referring Physician Gastroenterology 06/11/20 Monique Garcia MD Referring Physician Gastroenterology 06/11/20 documented as of this encounter
--- OUTSIDE RECORDS SUMMARY | 2024-09-03 00:59 | XMS_ITS | Encounter Summary ---
Author Organization [facility] Healthcare Address [address] [place] [address] Care Team Providers Care Electronic Communications Technician Name Role Phone Monique Garcia MD Unavailable [phone] Monique Garcia MD Unavailable [phone] Nathan Martinez MD Primary Care Provider [phone] Encounter Details Date Type Department Care Team (Late st Contact Info) Description 01/04/[address] [facility] [address] [place] [address] Scanning, Provider Social History Tobacco Use Types [...] Date/Time Associated Diagnosis Comments SCAN - RADIOLOGY/IMAGING 01/04/2024 documented in this encounter Results * SCAN - RADIOLOGY/IMAGING (01/04/2024) Anatomical Region Laterality Modality Other us Provider Scanning Final Result documented in this encounter Visit Diagnoses Not on filedocumented in this encounter Care Teams Electronic Communications Technician Relationship Specialty Start Date End Date Nathan Martinez MD PCP - General Family Practice 09/10/20 Monique Garcia MD Referring Physician Gastroenterology 06/11/20 Monique Garcia MD Referring Physician Gastroenterology 06/11/20 documented as of this encounter
--- OUTSIDE RECORDS SUMMARY | 2024-09-03 00:59 | XMS_ITS | Encounter Summary ---
Author Organization [facility] Healthcare Address [address] [place] [address] Care Team Providers Care Process Server Name Role Phone Monique Garcia MD Unavailable [phone] Monique Garcia MD Unavailable [phone] Nathan Martinez MD Primary Care Provider [phone] Reason for Visit * Reason Onset Date Comments Back Injury 09/21/2023 Back Pain 09/21/2023 Encounter Details Date Type Department Care Team (Late st Contact Info) Description 09/21/[address] [facility] Primary Care [address] [place] [address] Nathan Martinez MD [address] [place], [place] [id number] Social History Tobacco Use Types Packs/Day Years [...] encounter Miscellaneous Notes * Telephone Encounter - Meggan Lomabrdo MA - 09/21/2023 3:45 PM CST Spoke with pt and he is going to keep his appt for Thursday CCO SAMPLER * Telephone Encounter - Jessica Camacho RN - 09/21/2023 3:12 PM TOBACCO SAMPLER Reason for Disposition SEVERE back pain (e.g., excruciating, unable to do any normal activities) and not improved after pain medicine and CARE ADVICE Protocols used: Back [id number] Nurse Triage Disposition: Go to office now. There are no openings at the office, he was already in UC and ER and does not want to go back to either, hoping to see Dr. Martinez tomorrow. He already has an appt for next week Thursday 09/28 but does notwant to wait that long. Fell on ice hitting his head on 09/11 while out of town, was seen in UC. When he got back home he visited ED on 09/16/23. Please visualize the CTs performed that day. He was prescribed a muscle relaxant, steroid and lidocaine patches. Is not feeling better. Back pain is upper, between the shoulder blades, including the shoulders, and his neck. Pain is 9/10. Limited ROM due to pain, Numbness to back of left arm near the elbow and in his left side fingers. 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 Lidocaine patches provide the most relief but it does not last long. Forwarding to Nathan Martinez MD and clinical team for review and intervention. Erich N Alejandro can be reached at [phone]. CCO SAMPLER * Telephone Encounter - Jessica Camacho RN - 09/21/2023 2:59 PM TOBACCO SAMPLER Regarding: back injury, severe back pain ----- Message from Patience Aj MA sent at 09/21/2023 2:59 PM TOBACCO SAMPLER ----- Symptom Based Call Chief Complaint(s): back injury, severe back pain Duration: since 09/16/23 What type of symptom(s) is the patient experiencing? Red Flag. Is the patient concerned they are experiencing a medical emergency requiring an ambulance? No Additional Comments: back injury, severe back pain. Between shoulder blades and into shoulders. Patient fell. , went to ER 09/16/23, CT done recommended an MRI. Did make an appt online, but not able to be seen till 09/28/23 Does message need to be routed? Yes-Action Needed CCO SAMPLER documented in this encounter Plan of Treatment Not on file documented as of this encounter Visit Diagnoses Not on filedocumented in this encounter Care Teams Process Server Relationship Specialty Start Date End Date Nathan Martinez MD PCP - General Family Practice 09/10/20 Monique Garcia MD Referring Physician Gastroenterology 06/11/20 Monique Garcia MD Referring Physician Gastroenterology 06/11/20 documented as of this encounter
--- OUTSIDE RECORDS SUMMARY | 2024-09-03 01:00 | XMS_ITS | Encounter Summary ---
Author Organization [facility] Healthcare Address [facility] [place] [address] Care Team Providers Care Senior Materials Planner Name Role Phone Monique Garcia MD Unavailable [phone] Monique Garcia MD Unavailable [phone] Nathan Martinez MD Primary Care Provider [phone] Reason for Referral * Diagnostic Imaging (Routine) - Closed Specialty Diagnoses / Procedures Referred By Hugo dang Referred To Contact Diagnoses Other specified diseases of intestine Procedures FL Small Bowel Series Clementina Hood MD [address] [place] [address] Phone: tel: fax: [address] [address] Referral ID Status Reason Start Date Expiration Date Visits Re quested Visits Authorized [id number] Closed 01/07/2022 02/06/2023 1 1 Reason for Visit * Diagnostic Imaging (Routine) - Closed Specialty Diagnoses / Procedures Referred By Hugo dang Referred To Contact Diagnoses Other specified diseases of intestine Procedures FL Small Bowel Series Clementina Hood MD [address] [place] [address] Phone: tel: fax: [address] [phone] Referral ID Status Reason Start Date Expiration Date Visits Re quested Visits Authorized [id number] Closed 01/07/2022 02/06/2023 1 1 Encounter Details Date Type Department Care Team (Latest Contact Info) Description 01/10/2022 8:36 AM CDT - 01/10/2022 11:59 PM CDT Hospital Encounter [facility] Diagnostic Imaging [facility] [place] [address] Other specified diseases of intestine Discharge Disposition: Discharge to home or self [...] often do you have a drink containing alc ohol? Never 12/16/2021 Average Number of Drinks Not on file 022 Q3: How often do you have si x or more drinks on one occasion? Never 12/16/2021 PHQ-2 Answer Date Recorded PHQ-2 Total Score (If total score is 3 or more points, staff should administer the PHQ-9) 0 12/16/2021 Sex and Gender Information Value Date Recorded Sex Assigned at Not on file Legal Sex Male 2:58 AM CDT Gender Identity Male 03/10/2022 6:57 PM CDT Sexual Orientation Not on file documented as of this encounter Medications at Time of Discharge dulaglutide (TRULICITY) 1.5 mg/0.5 mL pen injector Inject 0.5 mL (1.5 mg total) under the skin every 7 days 1.5 mL 3 12/16/2021 03/11/2022 empagliflozin (JARDIANCE) 25 mg tabletIndication s:type 2 diabetes mellitus Take 1 tablet (25 mg total) by mouth daily 90 tablet 1 09/02/2021 06/23/2023 escitalopram (LEXAPRO) 20 mg tablet Take 1 tablet (20 mg total) by mouth daily 90 tablet 1 09/02/2021 02/03/2022 glipiZIDE (GLUCOTROL) 10 mg tabletIndication s:type 2 diabetes mellitus Take 1 tablet (10 mg total) by mouth daily 90 tablet 1 09/02/2021 05/02/2024 hyoscyamine ER (LEVBID) 0.375 mg 12 hr tabletIndication s:diarrhea Take 1 tablet (0.375 mg total) by mouth every 12 (twelve) hours as needed for cramping 60 tablet 3 09/02/2021 05/02/2024 metFORMIN (GLUCOPHAGE) 1,000 mg tablet Take 1 tablet (1,000 mg total) by mouth 2 (two) times a day with meals 180 tablet 1 09/02/2021 06/23/2023 modafiniL (PROVIGIL) 100 mg tablet Take 1 tablet (100 mg total) by mouth daily 90 tablet 09/02/2021 03/10/2022 traZODone (DESYREL) 100 mg tablet Take 1 tablet (100 mg total) by mouth nightly as needed for sleep 90 tablet 1 09/02/2021 03/27/2022 triamcinolone (KENALOG) 0.1 % cream Apply to affected area 1-2 times daily as needed. Avoid face and groin. 30 g 3 09/10/2020 05/05/2022 documented as of this encounter Discharge Disposition Disposition Code Departure Means Destination Discharge to home or self care documented in this encounter Plan of Treatment Not on file documented as of this encounter Procedures Procedure Name Priority Date/Time Associated Diagnosis Comments FL SMALL BOWEL SERIES Schedule Routine, Read Routine (OP Routine) 01/10/2022 10:03 AM CDT Other specified diseases of intestine documented in this encounter Results * FL Small Bowel Series (01/10/2022 10:03 AM CDT) Anatomical Region Laterality Modality Body N/A Computed Radiogr aphy, Computed Radiography 01/10/2022 10:1 3 AM CDT Narrative 01/10/2022 10:24 AM CDT EXAM DESCRIPTION: ?? FL SMALL BOWEL SERIES REASON FOR STUDY: ?? K63.89 ?? F/t: 47 seconds ??25.3 mGy ??Image count: 10 ??Spot image count: 11 ??Total images: 21 ??Gastroview: 240 mL ??history of prior small bowel obstructions. ?? Prior history of hernia repair. COMPARISON: 11/15/2021 FLUOROSCOPY TIME/IMAGE COUNT: Fluoro Time: ?? 47 seconds Image Count: ?? 21 images consisting of 11 fluoroscopic spot images and 10 overhead radiographs. PROCEDURE: Initial sumo wrestler image of abdomen acquired, followed by administration of ?? water-soluble ??oral contrast. ??Serial radiographic images acquired. ?? Fluoroscopic images recorded of the terminal ileum and other indicated areas. ?? Compression spot images obtained where possible. ?? FINDINGS: STONE CIRCULAR SAWYER KUB: ?? There are scattered prominent air-filled loops of small bowel noted measuring up to 4.1 cm in the lateral mid right abdomen. ??There is no definite evidence of free air under the diaphragm within the limits of a supine projection. ??Prior postsurgical changes abdominal hernia repair noted. ?? Postsurgical clips are noted in the right upper quadrant the abdomen. ??There are mild degenerative changes of the spine, bilateral sacroiliac joints, and bilateral hips. STOMACH: ?? The stomach appears grossly unremarkable without evidence of abnormal distension or narrowing. DUODENUM: ?? The duodenum appears grossly unremarkable without definite evidence of abnormal narrowing. JEJUNUM: ?? There is a grossly normal mucosal pattern of the jejunum. ??There is mild distension of the jejunum measuring up to 3.9 cm. ??There is no definite evidence of a focal abnormal area of irregular narrowing involving the jejunum. ILEUM: ?? The ileum has a grossly normal mucosal pattern. ??There is mild distension of the ileum measuring up to 3.5 cm. ??There is no definite evidence of focal abnormal area of irregular narrowing involving the jejunum. TERMINAL ILEUM AND ILEO-CECAL VALVE: ?? The terminal ileum appears grossly normal in caliber without evidence of abnormal dilatation or narrowing. PROXIMAL COLON: ?? Incompletely imaged. ??No abnormality. OTHER: ?? No other significant finding. IMPRESSION: ?? 1. ?? No definite evidence of a small-bowel obstruction. ?? 2. ?? Mild scattered distension of the small bowel measuring up to 3.9 cm in the jejunum and 3.5 cm in the ileum, which is indeterminate in etiology and may be related to sequela of prior obstruction, ileus, or enteritis. ??No definite radiographic evidence of abnormal mucosal pattern or focal irregular narrowing of the small bowel. THIS IS AN ELECTRONICALLY VERIFIED FINAL REPORT 01/10/2022 10:24 AM - Electronically signed by ??Jena Forbes D.O. PS: PS D: ??01/10/2022 10:24 AM T: ??01/10/2022 10:24 AM Report ID: [id number] Reading Location: ??[id number] Procedure Note Jena Forbes, DO - 01/10/2022 EXAM DESCRIPTION: FL SMALL BOWEL SERIES REASON FOR STUDY: K63.89 F/t: 47 seconds 25.3 mGy Image count: 10 Spot image count: 11 Total images: 21 Gastroview: 240 mL history of prior small bowel obstructions. Prior history of hernia repair. COMPARISON: 11/15/2021 FLUOROSCOPY TIME/IMAGE COUNT: Fluoro Time: 47 seconds Image Count: 21 images consisting of 11 fluoroscopic spot images and 10 overhead radiographs. PROCEDURE: Initial sumo wrestler image of abdomen acquired, followed byadministration of water-soluble oral contrast. Serial radiographic images acquired. Fluoroscopic images recorded of the terminal ileum and other indicatedareas. Compression spot images obtained where possible. FINDINGS: STONE CIRCULAR SAWYER KUB: There are scattered prominent air-filled loops ofsmall bowel noted measuring up to 4.1 cm in the lateral mid right abdomen.There is no definite evidence of free air under the diaphragm within the limits ofa supine projection. Prior postsurgical changes abdominal hernia repairnoted. Postsurgical clips are noted in the right upper quadrant the abdomen.There are mild degenerative changes of the spine, bilateral sacroiliac joints,and bilateral hips. STOMACH: The stomach appears grossly unremarkable without evidence of abnormal distension or narrowing. DUODENUM: The duodenum appears grossly unremarkable without definite evidence of abnormal narrowing. JEJUNUM: There is a grossly normal mucosal pattern of the jejunum.There is mild distension of the jejunum measuring up to 3.9 cm. There is nodefinite evidence of a focal abnormal area of irregular narrowing involving the jejunum. ILEUM: The ileum has a grossly normal mucosal pattern. There is mild distension of the ileum measuring up to 3.5 cm. There is no definiteevidence of focal abnormal area of irregular narrowing involving the jejunum. TERMINAL ILEUM AND ILEO-CECAL VALVE: The terminal ileum appears grossly normal in caliber without evidence of abnormal dilatation or narrowing. PROXIMAL COLON: Incompletely imaged. No abnormality. OTHER: No other significant finding. IMPRESSION: 1. No definite evidence of a small-bowel obstruction. 2. Mild scattered distension of the small bowel measuring up to 3.9 cmin the jejunum and 3.5 cm in the ileum, which is indeterminate in etiologyand may be related to sequela of prior obstruction, ileus, or enteritis. No definite radiographic evidence of abnormal mucosal pattern or focalirregular narrowing of the small bowel. THIS IS AN ELECTRONICALLY VERIFIED FINAL REPORT 01/10/2022 10:24 AM - Electronically signed by Jena Forbes D.O. PS: PS Report ID: [id number] Reading Location: [id number] Clementina Hood MD IMG FLUOROSCOPY PROCEDURES Final Result documented in this encounter Visit Diagnoses Diagnosis Other specified diseases of intestine documented in this encounter Administered Medications Inactive Administered Medications - up to 3 most recent administrations Medication Order MAR Action Action Date Dose Rate Site diatrizoate meglumine-diatrizoate sodium (GASTROGRAFIN/-GASTROVIEW) 66-10 % solution 240 mL 240 mL, oral, Once in imaging, contrast, Starting on Thu01/10/22 at 0853, For 1 dose Contrast Given 01/10/2022 8:56 AM CDT 240 mL documented in this encounter Orders Medications Ordered That Brendan ht Not Have Been Administered Count Last Ordered Date First Ordered Date diatrizoate meglumine-diatri zoate sodium (GASTROGRAFIN/-GASTROVIEW) 66-10 % solution 240 mL 1 01/10/2022 documented in this encounter Care Teams Senior Materials Planner Relationship Specialty Start Date End Date Nathan Martinez MD PCP - General Family Practice 09/10/20 Monique Garcia MD Referring Physician Gastroenterology 06/11/20 Monique Garcia MD Referring Physician Gastroenterology 06/11/20 documented as of this encounter
--- OUTSIDE RECORDS SUMMARY | 2024-09-03 01:00 | XMS_ITS | Encounter Summary ---
Author Organization [facility] Address [address] [facility] [address] [address] Care Team Providers Care Plate Finisher Name Role Phone Monique Garcia MD Unavailable [phone] Monique Garcia MD Unavailable [phone] Nathan Martinez MD Primary Care Provider [phone] Encounter Details Date Type Department Care Team (Late st Contact Info) Description 12/07/2022 [place] Only [facility] [place] [facility] [place] [address] [place] [address] Scanning, Provider Social History Tobacco Use Types Packs/Day Years Used Date Smoking Tobacco: Never Smokeless Tobacco: Current Chew Comments:advised to quit 1 c an of chew per week since 1994 Alcohol Use Standard Drinks/Week Comments Not Currently 0 (1 standard drink = 0.6 oz pur e alcohol) AUDIT-C Answer Date Recorded Q1: How often do you have a drink containing alcohol? Never 09/12/2022 Q2: How many drinks containi ng alcohol do you have on a typical day when you are drinking? Patient does not drink Q3: How often do you have si x or more drinks on one occasion? Never 09/12/2022 PHQ-2 Answer Date Recorded PHQ-2 Total Score (If total score is 3 or more points, staff should administer the PHQ-9) 0 12/01/2022 Sex and Gender Information Value Date Recorded Sex Assigned at Not on file Legal Sex Male 2:58 AM CDT Gender Identity Male 03/10/2022 6:57 PM CDT Sexual Orientation Not on file documented as of this encounter Plan of Treatment Not on file documented as of this encounter Procedures Procedure Name Priority Date/Time Associated Diagnosis Comments SCAN - RADIOLOGY/IMAGING 12/07/2022 SCAN - LABS 12/07/2022 documented in this encounter Results * SCAN - LABS (12/07/2022) us Provider Scanning Final Result * SCAN - RADIOLOGY/IMAGING (12/07/2022) Anatomical Region Laterality Modality Other us Provider Scanning Final Result documented in this encounter Visit Diagnoses Not on filedocumented in this encounter Care Teams Plate Finisher Relationship Specialty Start Date End Date Nathan Martinez MD PCP - General Family Practice 09/10/20 Monique Garcia MD Referring Physician Gastroenterology 06/11/20 Monique Garcia MD Referring Physician Gastroenterology 06/11/20 documented as of this encounter
--- OUTSIDE RECORDS SUMMARY | 2024-09-03 01:00 | XMS_ITS | Encounter Summary ---
Author Organization [facility] Address [address] [facility] [address] [place] [address] Care Team Providers Care Palaeontologist Name Role Phone Monique Garcia MD Unavailable Monique Garcia MD Unavailable [phone] Nathan Martinez MD Primary Care Provider [phone] Encounter Details Date Type Department Care Team (Late st Contact Info) Description 03/09/2023 Orders Only [facility] [place] Health Information Management [address] [place] [address] Scanning, Provider Social History Tobacco Use Types Packs/Day Years Used Date Smoking Tobacco: Never Smokeless Tobacco: Current Chew Comments:advised to quit 1 c an of chew per week since 1994 Alcohol Use Standard Drinks/Week Comments Not Currently 0 (1 standard drink = 0.6 oz pur e alcohol) AUDIT-C Answer Date Recorded Q1: How often do you have a drink containing alcohol? Never 01/16/2023 Q2: How many drinks containi ng alcohol do you have on a typical day when you are drinking? Patient does not drink Q3: How often do you have si x or more drinks on one occasion? Never 01/16/2023 PHQ-2 Answer Date Recorded PHQ-2 Total Score (If total score is 3 or more points, staff should administer the PHQ-9) 0 01/16/2023 Sex and Gender Information Value Date Recorded Sex Assigned at Not on file Legal Sex Male 2:58 AM CDT Gender Identity Male 03/10/2022 6:57 PM CDT Sexual Orientation Not on file documented as of this encounter Plan of Treatment Not on file documented as of this encounter Procedures Procedure Name Priority Date/Time Associated Diagnosis Comments SCAN - RADIOLOGY/IMAGING 03/09/2023 SCAN - LABS 03/09/2023 documented in this encounter Results * SCAN - LABS (03/09/2023) us Provider Scanning Final Result * SCAN - RADIOLOGY/IMAGING (03/09/2023) Anatomical Region Laterality Modality Other us Provider Scanning Final Result documented in this encounter Visit Diagnoses Not on filedocumented in this encounter Care Teams Palaeontologist Relationship Specialty Start Date End Date Nathan Martinez MD PCP - General Family Practice 09/10/20 Monique Garcia MD Referring Physician Gastroenterology 06/11/20 Monique Garcia MD Referring Physician Gastroenterology 06/11/20 documented as of this encounter
--- OUTSIDE RECORDS SUMMARY | 2024-09-03 01:00 | XMS_ITS | Encounter Summary ---
Author Organization [facility] Address [address] [address] Care Team Providers Care Epic Willow Specialist Name Role Phone Monique Garcia MD Unavailable [phone] Monique Garcia MD Unavailable [phone] Nathan Martinez MD Primary Care Provider [phone] Reason for Visit * Reason Comments Knee Pain C/o left knee pain s maurizio Thursday after falling out of truck and landing on knee. Pain is constant and ranges from sharp to achy. C/o swelling and bruising. Ice improves pain. Has been wearing knee brace. Pain worse when bearing weight. Encounter Details Date Type Department Care Team (Late st Contact Info) Description 12/01/2022 8:00 AM CDT Office Visit [facility] Primary Care [address] [place] [address] Nathan Martinez MD [address] [place], [place] [id number] Acute pain of left knee (Primary Dx) Social History Tobacco Use Types Packs/Day Years Used Date Smoking Tobacco: Never Smokeless Tobacco: Current Chew Tobacco Cessation:Ready to [...] Reading Time Taken Comments Blood Pressure 114/68 12/01/2022 8:07 AM CDT Pulse 90 12/01/2022 8:07 AM CDT Temperature 36.3 ??C (97.3 ??F) 12/01/2022 8:07 AM CD T Respiratory Rate 20 12/01/2022 8:07 AM CDT Oxygen Saturation 98% 12/01/2022 8:07 AM CDT Inhaled Oxygen Concentration - - Weight 90.6 kg (199 lb 12.8 oz) 12/01/2022 8:07 AM CDT Height 180.3 cm (5' 10.98 ) 12/01/2022 8:07 AM C DT Body Mass Index 27.88 12/01/2022 8:07 AM CDT documented in this encounter Ordered Prescriptions Prescription Sig Dispense Quantity Refills Last Filled Start Date End Date traMADoL (ULTRAM) 50 mg tablet Take 1 tablet (50 mg total) by mouth every 6 (six) hours as needed for pain for up to 5 days 40 tablet 3 12/01/2022 05/21/2023 documented in this encounter Progress Notes * Nathan Martinez MD - 12/01/2022 8:00 AM CDT Subjective/Objective Patient ID: Erich Allen is a 52 y.o. male. Chief Complaint Knee Pain (C/o left knee pain since Thursday after falling out of truck and landing on knee. Pain is constant and ranges from sharp to achy. C/o swelling and bruising. Ice improves pain. Has been wearing knee brace. Pain worse when bearing weight. ) Vitals BP 114/68 (BP Location: Left arm, Patient Position: Sitting) Pulse 90 Temp 36.3 ??C (97.3 ??F) (Skin) Resp 20 Ht 180.3 cm (5' 10.98 ) Wt 90.6 kg (199 lb 12.8 oz) SpO2 98% BMI 27.88 kg/m?? PHQ Screening Over the last 2 [...] PHQ-9): 0 History of Present Illness Patient complains of left knee pain constant since falling out of a truck and landing on his knee on November 29, 2022. On November 29 he went to the ER in [facility] and they x-rayed it and x-rays were normal. Unable to bear weight without pain. Was some initial swelling but no effusion at this time. There is a abrasion measuring about us inch by inch distally. There may be slight superficial infection Review of Systems Gen.: No fever, night [...] the urine or change in urination. Musculoskeletal: As above. Neurological: No focal neurological symptoms, headaches, numbness, [...] sensory and motor exams. Gait normal. Skin: 1 in x 1 in superficial abrasion distal to knee with some tenderness and slight crusting. Musculoskeletal: No visible swelling or inflammation of any joints. No bony tenderness. Good range of motion joints. No ligamentous injury detected stable all ligaments Psych: Not depressed. No agitation or akathisia. Orientation and concentration normal. Assessment/Plan Diagnoses and all orders for this visit: Acute pain of left knee (M25.562) (Primary) Assessment & Plan: Will give prescription for Motrin. We will trying get MRI. We will refer to orthopedics. Orders: - MRI Knee Left WO Contrast; Future - Ambulatory referral to Orthopedic Surgery; Future Other orders - traMADoL (ULTRAM) 50 mg tablet; Take 1 tablet (50 mg total) by mouth every 6 (six) hours as needed for pain for up to 5 days Answers submitted by the patient for this visit: Lower Extremity Injury Questionnaire (Submitted on 11/30/2022) Chief Complaint: Lower extremity pain Incident occurred: 2 days ago Incident location: at work Injury mechanism: a fall, other Pain location: left knee Pain - numeric: 8/10 Pain course: constant loss of motion: Yes Foreign body present: no foreign bodies Aggravated by: weight bearing documented in this encounter Miscellaneous Notes * Assessment & Plan Note - Nathan Martinez MD - 12/01/2022 8:26 AM CDT Associated Problem(s): Right knee pain Will give prescription for Motrin. We will trying get MRI. We will refer to orthopedics. documented in this encounter Plan of Treatment Not on file documented as of this encounter Visit Diagnoses Diagnosis Acute pain of left knee- Primary documented in this encounter Care Teams Epic Willow Specialist Relationship Specialty Start Date End Date Nathan Martinez MD PCP - General Family Practice 09/10/20 Monique Garcia MD Referring Physician Gastroenterology 06/11/20 Monique Garcia MD Referring Physician Gastroenterology 06/11/20 documented as of this encounter
--- OUTSIDE RECORDS SUMMARY | 2024-09-03 01:00 | XMS_ITS | Encounter Summary ---
Author Organization [facility] Address [address] [facility] [address] [place] [address] Care Team Providers Care Rug Touch Up Painter Name Role Phone Monique Garcia MD Unavailable [phone] Monique Garcia MD Unavailable [phone] Nathan Martinez MD Primary Care Provider [phone] Encounter Details Date Type Department Care Team (Late st Contact Info) Description 03/26/2022 Orders Only [facility] [place] Health Information Management [address] [place] [address] Scanning, Provider Social History Tobacco Use Types [...] Date/Time Associated Diagnosis Comments SCAN - RADIOLOGY/IMAGING 03/26/2022 SCAN - LABS 03/26/2022 documented in this encounter Results * SCAN - LABS (03/26/2022) us Provider Scanning Final Result * SCAN - RADIOLOGY/IMAGING (03/26/2022) Anatomical Region Laterality Modality Other us Provider Scanning Final Result documented in this encounter Visit Diagnoses Not on filedocumented in this encounter Care Teams Rug Touch Up Painter Relationship Specialty Start Date End Date Nathan Martinez MD PCP - General Family Practice 09/10/20 Monique Garcia MD Referring Physician Gastroenterology 06/11/20 Monique Garcia MD Referring Physician Gastroenterology 06/11/20 documented as of this encounter
--- OUTSIDE RECORDS SUMMARY | 2024-09-03 01:00 | XMS_ITS | Encounter Summary ---
Author Organization [facility] Healthcare Address [address] [place] [id number] Care Team Providers Care Sports Equipment Supervisor Name Role Phone Monique Garcia MD Unavailable [phone] Monique Garcia MD Unavailable [phone] Nathan Martinez MD Primary Care Provider [phone] Reason for Visit * Reason Comments Ankle Pain Encounter Details Date Type Department Care Team (Late st Contact Info) Description 04/15/2022 1:39 PM CDT - 04/15/2022 4:59 PM CDT Emergency [facility] Emergency Department [address] [place] [id number] Calcific tendonitis of left foot (Primary Dx); Achilles tendinitis, left leg Discharge Disposition: Discharge to home or self [...] Sign Reading Time Taken Comments Blood Pressure 125/76 04/15/2022 4:27 PM CDT Pulse 84 04/15/2022 4:27 PM CDT Temperature 37.1 ??C (98.7 ??F) 04/15/2022 2:24 PM CD T Respiratory Rate 18 04/15/2022 4:27 PM CDT Oxygen Saturation 97% 04/15/2022 4:27 PM CDT Inhaled Oxygen Concentration - - Weight 90.7 kg (200 lb) 04/15/2022 2:24 PM CDT Height 180.3 cm (5' 11 ) 04/15/2022 2:24 PM CDT Body Mass Index 27.89 04/15/2022 2:24 PM CDT documented in this encounter Discharge Instructions * Discharge Instructions* Stephy Garcia PA - 04/15/2022 4:57 PM CDT Follow-up as recommended is mandatory. You have [...] available during the time of the visit. Return immediately for any new symptoms, worsening of symptoms, or persistent symptoms * Attachments The following attachments cannot be sent through Care Everywhere. * Achilles Tendinitis (AfterCare(R) Instructions(ER/ED)) (Italian) documented in this encounter Medications at Time of Discharge empagliflozin (JARDIANCE) 25 mg tabletIndication s:type 2 diabetes mellitus Take 1 tablet (25 mg total) by mouth daily 90 tablet 1 09/02/2021 06/23/2023 escitalopram (LEXAPRO) 20 mg tablet TAKE 1 TABLET(20 MG) BY MOUTH DAILY 90 tablet 1 02/03/2022 07/28/2022 glipiZIDE (GLUCOTROL) 10 mg tabletIndication s:type 2 [...] mg total) by mouth daily 90 tablet 03/11/2022 06/11/2022 naproxen (NAPROSYN) 500 mg tablet Take 1 tablet (500 mg total) by mouth 2 (two) times a day with meals 30 tablet 04/15/2022 05/05/2022 traZODone (DESYREL) 100 mg tablet TAKE 1 TABLET(100 MG) BY MOUTH EVERY NIGHT NEEDED FOR SLEEP 30 tablet 03/27/2022 05/05/2022 triamcinolone (KENALOG) 0.1 % cream Apply to affected area 1-2 times daily as needed. Avoid face and groin. 30 g 3 09/10/2020 05/05/2022 Trulicity 1.5 mg/0.5 mL pen injector INJECT 0.5 MLS (1.5 MG TOTAL) UNDER THE SKIN EVERY 7 DAYS 2 mL 03/11/2022 04/29/2022 documented as of this encounter Ordered Prescriptions Prescription Sig Dispense Quantity Refills Last Filled Start Date End Date naproxen (NAPROSYN) 500 mg tablet Take 1 tablet (500 mg total) by mouth 2 (two) times a day with meals 30 tablet 04/15/2022 05/05/2022 documented in this encounter Discharge Disposition Disposition Code Departure Means Destination Discharge to home or self care documented in this encounter ED Notes * Stephy Garcia PA - 04/15/2022 4:49 PM CDT HPI Chief Complaint Patient presents with ??? Ankle Pain HPI 7:07 PM Erich Allen is a 52 y.o. male presenting to the ED c/o injury to his L heel 2 1/2 weeks ago when he was walking down the stairs. He felt sudden, sharp pain and a pull to his L heel. NO recall of injury. He has been icing and wrapping the area but it is painful to walk Patient History: Past Medical History: Diagnosis Date ??? Ankle fracture, right ??? Colitis ??? Depression ??? Diabetes mellitus (HCC) ??? Diverticulitis ??? Insomnia ??? Wrist fracture, left Past Surgical History: Procedure Laterality Date ??? APPENDECTOMY ??? CHOLECYSTECTOMY ??? COLON SURGERY ??? NASAL SEPTUM SURGERY 11/07/2020 Dr. Yousif Weston ??? NASAL TURBINATE REDUCTION 11/07/2020 ??? SEPTOPLASTY 11/07/2020 ??? WRIST FRACTURE SURGERY Family History Problem Relation Age of Onset ??? No Known Problems Mother ??? Heart disease Father ??? Diabetes Father Social History Tobacco Use ??? Smoking status: Never Smoker ??? Smokeless tobacco: Current User Types: Chew ??? Tobacco comment: advised to quit 1 can of chew per week since 1994 Substance and Sexual Activity ??? Drug use: Not Currently ??? Sexual activity: Yes Partners: Female Alcohol Use: Not At Risk ??? Frequency of Alcohol Consumption: Never ??? Average Number of Drinks: Not on file ??? Frequency of Binge Drinking: Never Review of Systems Review of Systems All systems reviewed and are neg or non contributory for this patients presentation today other than as stated in the HPI. Physical Exam ED Triage Vitals Temp Pulse Resp BP SpO2 04/15/22 1424 04/15/22 1424 04/15/22 1424 04/15/22 1424 04/15/22 1424 37.1 ??C (98.7 ??F) 100 18 122/80 97 % Temp src Heart Rate Source Patient Position BP Location FiO2 (%) 04/15/22 1424 04/15/22 1627 04/15/22 1627 04/15/22 1627 -- Oral Monitor Sitting Left arm Height Height Method Weight Weight Method 04/15/22 1424 04/15/22 1424 04/15/22 1424 04/15/22 1424 1.803 m (5' 11 ) Stated 90.7 kg (200 lb) Stated Physical Exam Vitals and nursing note reviewed. Constitutional: General: He is not in acute distress. Appearance: He is well-developed. HENT: Head: Normocephalic and atraumatic. Eyes: General: No scleral icterus. Right eye: No discharge. Left eye: No discharge. Conjunctiva/sclera: Conjunctivae normal. Pupils: Pupils are equal, round, and reactive to light. Neck: Thyroid: No thyromegaly. Cardiovascular: Rate and Rhythm: Normal rate and regular rhythm. Heart sounds: Normal heart sounds. No murmur heard. No friction rub. No gallop. Pulmonary: Effort: Pulmonary effort is normal. No respiratory distress. Breath sounds: Normal breath sounds. No wheezing or rales. Chest: Chest wall: No tenderness. Abdominal: General: Bowel sounds are normal. There is no distension. Palpations: Abdomen is soft. Tenderness: There is no abdominal tenderness. There is no guarding or rebound. Hernia: No hernia is present. Musculoskeletal: General: Swelling and tenderness present. No deformity. Cervical back: Normal range of motion and neck supple. Comments: Tender to L achilles tendon at insertion, - thompsons test, no erythema or warmth Lymphadenopathy: Cervical: No cervical adenopathy. Skin: General: Skin is warm and dry. Capillary Refill: Capillary refill takes less than 2 seconds. Findings: No rash. Neurological: Mental Status: He is alert and oriented to person, place, and time. Cranial Nerves: No cranial nerve deficit. Sensory: No sensory deficit. Psychiatric: Behavior: Behavior normal. Thought Content: Thought content normal. Judgment: Judgment normal. Procedures MDM Labs Reviewed - No data to display XR Ankle Left 3 or More Views Final Result BP 125/76 (BP Location: Left arm, Patient Position: Sitting) Pulse 84 Temp 37.1 ??C (98.7 ??F) (Oral) Resp 18 Ht 180.3 cm (5' 11 ) Wt 90.7 kg (200 lb) SpO2 97% BMI 27.89 kg/m?? MDM Number of Diagnoses or Management Options Achilles tendinitis, left leg: new and requires workup Calcific tendonitis of left foot: new and requires workup Diagnosis management comments: IN MY MEDICAL DECISION MAKING THE FOLLOWING DIFFERENTIAL DIAGNOSES WERE CONSIDERED BEFORE ARRIVING AT FINAL DIAGNOSIS AND MANY WERE EITHER RULED OUT OR APPEARED UNLIKELY: Achilles tear, fracture, nerve damage Amount and/or Complexity of Data Reviewed Tests in the radiology section of CPT??: reviewed Risk of Complications, Morbidity, and/or Mortality Presenting problems: low Diagnostic procedures: low Management options: low Patient Progress Patient progress: stable ED Course as of 04/15/221906 Time: 04/15 1648 Value: XR Ankle Left 3 or More Views Comment: (Reviewed) By: Stephy Garcia PA Time: 04/15 1655 Comment: The patient has been informed that they may have pre-hypertension or Hypertension based ashwini blood pressure reading in the emergency department. I recommend that the patient call the primarycare provider listed on their discharge instructions or a physician of their choice this week to arrange follow up for further evaluation of possible pre-hypertension or Hypertension. By: Stephy Garcia PA Time: 04/15 1655 Comment: We will place pt. In a boot. F/U with ortho TAYLER By: Setphy Garcia PA Clinical Impression: Calcific tendonitis of left foot Achilles tendinitis, left leg 7:07 PM Rechecked Erich Eastt is resting comfortably and feeling better. I discussed the results of diagnostic studies, my clinical impression, and the plan for further treatment with Erich N Alejandro. Patient agrees with plan and discharge at this time, all questions addressed. Pt is medically stable for discharge at this time. I have given Erich Allen instructions regarding the diagnosis, expectations, follow up, and returnprecautions. I explained to the patient that emergent conditions may arise and to return to the ER for new, worsening, or any persistent conditions. I've explained the importance of following up withthe referral physician as instructed. The patient verbalized understanding of the discharge instructions. New Medications: Discharge Medication List as of 04/15/2022 4:59 PM START taking these medications Details naproxen (NAPROSYN) 500 mg tablet Take 1 tablet (500 mg total) by mouth 2 (two) times a day with meals, Starting Thu04/15/2022, Normal I have advised the patient to follow-up with: Gee Oates MD [facility] [place] [id number] Schedule an appointment as soon as possible for a visit DIAGNOSIS: 1. Calcific tendonitis of left foot 2. Achilles tendinitis, left leg Disposition: Discharged Stephy Garcia PA 04/15/228 Stephy Garcia PA 04/15/221906 Stephy Garcia PA 04/15/221907 Cosigned by Humberto Zaragoza MD at 04/15/2022 9:43 PM CDT * Sobia Coppola RN - 04/15/2022 2:23 PM CDT Patient arrived to ED with complaints of left ankle pain x2.5 weeks. Patient denies known injury but it happened while walking down stairs. Patient states he has been taking tylenol and icing it but tylenol does not help. Patient ambulated to ED triage. Pulses, motor, and sensation intact. documented in this encounter Plan of Treatment Not on file documented as of this encounter Procedures Procedure Name Priority Date/Time Associated Diagnosis Comments XR ANKLE LEFT 3 OR MORE VIEWS ED 04/15/2022 3:02 PM CDT documented in this encounter Results * XR Ankle Left 3 or More Views (04/15/2022 3:02 PM CDT) Anatomical Region Laterality Modality Lower Extremities, Ankle Left Compute d Radiography 04/15/2022 3:38 PM CDT Narrative 04/15/2022 3:40 PM CDT EXAM DESCRIPTION: ?XR ANKLE LEFT 3 OR MORE VIEWS REASON FOR STUDY: ?? pain ?? Patient arrived to ED with complaints of left ankle pain x2.5 weeks. Patient denies known injury but it happened while walking down stairs. Patient states he has been taking tylenol and icing it but tylenol does not help. Patient ambulated to ED triage. ?? Pulses, motor, and sensation intact. ?? TECHNIQUE: ?? AP, lateral, and oblique ??radiographic views acquired of the left ankle. COMPARISON: ?? None available. FINDINGS: There is no acute fracture or dislocation. ??Tiny plantar spur and a larger dorsal calcaneal enthesophyte. ??Additional spurring at the dorsal aspect of the navicular. ??No radiopaque foreign body. IMPRESSION: ?? No acute fracture or dislocation. THIS IS AN ELECTRONICALLY VERIFIED FINAL REPORT 04/15/2022 3:40 PM - Electronically signed by ??Zoran Beckham D.O. AP: AP D: ??04/15/2022 3:40 PM T: ??04/15/2022 3:40 PM Report ID: [id number] Reading Location: ??[id number] Procedure Note Zoran Beckham DO - 04/15/2022 EXAM DESCRIPTION: XR ANKLE LEFT 3 OR MORE VIEWS REASON FOR STUDY: pain Patient arrived to ED with complaints of left ankle pain x2.5 weeks.Patient denies known injury but it happened while walking down stairs. Patientstates he has been taking tylenol and icing it but tylenol does not help. Patient ambulated to ED triage. Pulses, motor, and sensation intact. TECHNIQUE: AP, lateral, and oblique radiographic views acquired of theleft ankle. COMPARISON: None available. FINDINGS: There is no acute fracture or dislocation. Tiny plantar spurand a larger dorsal calcaneal enthesophyte. Additional spurring at the dorsal aspect of the navicular. No radiopaque foreign body. IMPRESSION: No acute fracture or dislocation. THIS IS AN ELECTRONICALLY VERIFIED FINAL REPORT 04/15/2022 3:40 PM - Electronically signed by Zoran Beckham D.O. AP: AP Report ID: [id number] Reading Location: [place] [address] Humberto Zaragoza MD IMG XR PROCEDURES Marilee l Result documented in this encounter Visit Diagnoses Diagnosis Calcific tendonitis of left foot- Primary Achilles tendinitis, left leg documented in this encounter Care Teams Sports Equipment Supervisor Relationship Specialty Start Date End Date Nathan Martinez MD PCP - General Family Practice 09/10/20 Monique Garcia MD Referring Physician Gastroenterology 06/11/20 Monique Garcia MD Referring Physician Gastroenterology 06/11/20 documented as of this encounter
--- OUTSIDE RECORDS SUMMARY | 2024-09-03 01:00 | XMS_ITS | Encounter Summary ---
Author Organization [facility] Medical Group Address [address] [address] Care Team Providers Care Petroleum Refinery Laborer Name Role Phone Monique Garcia MD Unavailable [phone] Monique Garcia MD Unavailable [phone] Nathan Martinez MD Primary Care Provider [phone] Reason for Visit * Reason Comments Follow-up Four month follow up r/t diabetes, depression. ADD. No current labs in chart. No concerns. Encounter Details Date Type Department Care Team (Latest Contact Info) Description 01/16/2023 9:30 AM CDT Office Visit [facility] Medical [facility] Primary Care [address] [place] [address] Nathan Martinez MD [address] [place] [address] Type 2 diabetes mellitus with hyperglycemia, without long-term current use of insulin ([facility]/HCC) ([facility]) (Primary Dx); Mixed hyperlipidemia; Psychophysiologic insomnia; Major depression in remission ([facility]); Acute pain of left knee; Over weight; Screening PSA (prostate specific antigen); Attention deficit disorder (ADD) without hyperactivity Social [...] Sign Reading Time Taken Comments Blood Pressure 110/72 01/16/2023 9:12 AM CDT Pulse 96 01/16/2023 9:12 AM CDT Temperature 36.3 ??C (97.3 ??F) 01/16/2023 9:12 AM CD T Respiratory Rate 16 01/16/2023 9:12 AM CDT Oxygen Saturation 98% 01/16/2023 9:12 AM CDT Inhaled Oxygen Concentration - - Weight 87.6 kg (193 lb 1.6 oz) 01/16/2023 9:12 A M CDT Height 180.3 cm (5' 10.98 ) 01/16/2023 9:12 AM C DT Body Mass Index 26.94 01/16/2023 9:12 AM CDT documented in this encounter Ordered Prescriptions Prescription Sig Dispense Quantity Refills Last Filled Start Date End Date traZODone (DESYREL) 100 mg tablet Take 1 tablet (100 mg total) by mouth nightly 90 tablet 1 01/16/2023 3 escitalopram (LEXAPRO) 20 mg tablet Take 1 tablet (20 mg total) by mouth daily 90 tablet 1 01/16/2023 3 documented in this encounter Progress Notes * Nathan Martinez MD - 01/16/2023 9:30 AM CDT Subjective/Objective Patient ID: Erich Allen is a 52 y.o. male. Chief Complaint Follow-up (Four month follow up r/t diabetes, depression. ADD. No current labs in chart. No concerns. ) Vitals BP 110/72 (BP Location: Left arm, Patient Position: Sitting) Pulse 96 Temp 36.3 ??C (97.3 ??F) (Skin) Resp 16 Ht 180.3 cm (5' 10.98 ) Wt 87.6 kg (193 lb 1.6 oz) SpO2 98% BMI 26.94 kg/m?? PHQ Screening Over the last 2 [...] 0 History of Present Illness Patient presents 1. Diabetes taking Trulicity 1.5 mg weekly and glipizide 10 mg daily. No hypoglycemic symptoms. Also takes metformin 1000 mg b.i.d. and Jardiance 25 mg daily. His A1c August was 7.6. This was improved. Additional medication was declined at that time. 2. Lipidemia taking atorvastatin 10 mg daily without myalgias. Last LDL done in April with total LDL of 139. This was higher than the previous 120. 3. Chronic insomnia taking trazodone 100 mg nightly with adequate control of insomnia 4. Depression. Patient's depression is well controlled . Taking Lexapro 20 mg every day without any side effects . No manic symptoms or irritability. No substance use. Not suicidal or homicidal. 4. He was having some left knee pain since since accident at work on November 29. He was given sometramadol and Motrin at that time Review of Systems Gen.: No fever, night [...] urine or change in urination. Musculoskeletal: As above Neurological: No focal neurological symptoms, headaches, [...] hyperglycemia, without long-term current use of insulin ([facility]) (HCC) (E11.65) (Primary) Assessment & Plan: A1c today. A1c was improved with result of 6.7 today . Continue Trulicity/glipizide/Jardiance/metformin at same dosage. Well controlled. Orders: - Creatinine; Future - Albumin Creatinine Ratio, Urine; Future - Comprehensive metabolic panel; Future - Ambulatory referral to Ophthalmology; Future - POCT hemoglobin A1c - Hemoglobin A1c; Future Mixed hyperlipidemia (E78.2) Assessment & Plan: Continue atorvastatin same dosage but needs repeat lipids Orders: - Lipid panel; Future Psychophysiologic insomnia (F51.04) Assessment & Plan: Continue trazodone at same dosage. Well controlled. Major depression in remission ([facility]) (F32.5) Assessment & Plan: Continue Lexapro at same dosage. Well controlled. Acute pain of left knee (M25.562) Assessment & Plan: Much improved and no longer taking tramadol or Motrin. Over weight (E66.3) Assessment & Plan: BMI Follow-up includes: nutrition counseling and exercise counseling. Screening PSA (prostate specific antigen) (Z12.5) - PSA screen; Future Attention deficit disorder (ADD) without hyperactivity (F98.8) Assessment & Plan: Still takes Provigil which helps with attention, focus, task completion, and decreasing distractions. No side effects. Other orders - escitalopram (LEXAPRO) 20 mg tablet; Take 1 tablet (20 mg total) by mouth daily - traZODone (DESYREL) 100 mg tablet; Take 1 tablet (100 mg total) by mouth nightly documented in this encounter Miscellaneous Notes * Assessment & Plan Note - Nathan Martinez MD - 01/16/2023 9:48 AM CDT Associated Problem(s): Right knee pain Much improved and no longer taking tramadol or Motrin. * Assessment & Plan Note - Nathan Martinez MD - 01/16/2023 9:48 AM CDT Associated Problem(s): ADD (attention deficit disorder) Still takes Provigil which helps with attention, focus, task completion, and decreasing distractions. No side effects. * Assessment & Plan Note - Nathan Martinez MD - 01/15/2023 2:03 PM CDT Associated Problem(s): Over weight BMI Follow-up includes: nutrition counseling and exercise counseling. * Assessment & Plan Note - Nathan Martinez MD - 01/15/2023 2:00 PM CDT Associated Problem(s): Major depression in remission (HCC) Continue Lexapro at same dosage. Well controlled. * Assessment & Plan Note - Nathan Martinez MD - 01/15/2023 1:59 PM CDT Associated Problem(s): Psychophysiologic insomnia Continue trazodone at same dosage. Well controlled. * Assessment & Plan Note - Nathan Martinez MD - 01/15/2023 1:58 PM CDT Associated Problem(s): Lipidemia Continue atorvastatin same dosage but needs repeat lipids * Assessment & Plan Note - Nathan Martinez MD - 01/15/2023 1:24 PM CDT Associated Problem(s): Type 2 diabetes mellitus with hyperglycemia, without long-term current use of insulin ([facility]) A1c today. A1c was improved with result of 6.7 today . Continue Trulicity/glipizide/Jardiance/metformin at same dosage. Well controlled. documented in this encounter Plan of Treatment Scheduled Orders Name Type Priority Associated Diagnoses Orde r Schedule PSA screen Lab Routine Screening PSA (prostate specific antigen) Expected: 07/19/2023, Expires: 01/16/2024 Lipid panel Lab Routine Mixed hyperlipidemia Expected: 07/19/2023, Expires: 01/16/2024 Creatinine Lab Routine Type 2 diabetes mellitus with hyperglycemia, without long-term current use of insulin (CMS/HCC) ([facility]) Expected: 07/19/2023, Expires: 01/16/2024 Albumin Creatinine Ratio, Urine Lab Routine Type 2 diabetes mellitus with hyperglycemia, without long-term current use of insulin (CMS/HCC) ([facility]) Expected: 07/19/2023, Expires: 01/16/2024 Comprehensive metabolic panel Lab Routine Type 2 diabetes mellitus with hyperglycemia, without long-term current use of insulin ([facility]) ([facility]) Expected: 07/19/2023, Expires: 01/16/2024 Hemoglobin A1c Lab Routine Type 2 diabetes mellitus with hyperglycemia, without long-term current use of insulin ([facility]) ([facility]) Expected: 07/19/2023, Expires: 01/17/2024 documented as of this encounter Procedures Procedure Name Priority Date/Time Associated Diagnosis Comments POCT HEMOGLOBIN A1C Routine 01/16/2023 9 :59 AM CDT Type 2 diabetes mellitus with hyperglycemia, without long-term current use of insulin ([facility]) ([facility]) documented in this encounter Results * POCT hemoglobin A1c (01/16/2023 9:59 AM CDT) Hemoglobin A1C, POC 6.7 % Blood 01/16/2023 9:59 AM CDT Nathan Martinez MD POINT OF CARE TEST ORDERAB LES Final Result documented in this encounter Visit Diagnoses Diagnosis Type 2 diabetes mellitus with hyperglycemia, without long-term current use of insulin ([facility])- Primary Mixed hyperlipidemia Psychophysiologic insomnia Major depression in remission ([facility]) Major depressive disorder, single episode in full remission Acute pain of left knee Over weight Overweight Screening PSA (prostate specific antigen) Special screening for malignant neoplasm of prostate Attention deficit disorder (ADD) without hyperactivity documented in this encounter Discontinued Medications Medication Sig Discontinue Reason Start Date End Da te traZODone (DESYREL) 100 mg tablet Take 1 tablet (100 mg total) by mouth nightly Reorder 10/29/2022 01/16/2023 escitalopram (LEXAPRO) 20 mg tablet Take 1 tablet (20 mg total) by mouth daily Reorder 10/29/2022 01/16/2023 documented as of this encounter Care Teams Petroleum Refinery Laborer Relationship Specialty Start Date End Date Nathan Martinez MD PCP - General Family Practice 09/10/20 Monique Garcia MD Referring Physician Gastroenterology 06/11/20 Monique Garcia MD Referring Physician Gastroenterology 06/11/20 documented as of this encounter
--- OUTSIDE RECORDS SUMMARY | 2024-09-03 01:00 | XMS_ITS | Encounter Summary ---
Author Organization [facility] Medical [facility] Address [address] [facility] [address] [place] [address] Care Team Providers Care Import Export Manager Name Role Phone Monique Garcia MD Unavailable [phone] Monique Garcia MD Unavailable [phone] Nathan Martinez MD Primary Care Provider [phone] Encounter Details Date Type Department Care Team (Late st Contact Info) Description 07/19/2022 [place] Only [facility] [place] [address] [place] [address] Scanning, Provider Social History Tobacco Use Types Packs/Day Years Used Date Smoking Tobacco: Never Smokeless Tobacco: Current Chew Comments:advised to quit 1 c an of chew per week since 1994 Alcohol Use Standard Drinks/Week Comments Not Currently 0 (1 standard drink = 0.6 oz pur e alcohol) AUDIT-C Answer Date Recorded Q1: How often do you have a drink containing alcohol? Never 05/05/2022 Q2: How many drinks containi ng alcohol do you have on a typical day when you are drinking? Patient does not drink Q3: How often do you have si x or more drinks on one occasion? Never 05/05/2022 PHQ-2 Answer Date Recorded PHQ-2 Total Score (If total score is 3 or more points, staff should administer the PHQ-9) 0 05/05/2022 Sex and Gender Information Value Date Recorded Sex Assigned at Not on file Legal Sex Male 2:58 AM CDT Gender Identity Male 03/10/2022 6:57 PM CDT Sexual Orientation Not on file documented as of this encounter Plan of Treatment Not on file documented as of this encounter Procedures Procedure Name Priority Date/Time Associated Diagnosis Comments SCAN - RADIOLOGY/IMAGING 07/19/2022 SCAN - LABS 07/19/2022 documented in this encounter Results * SCAN - LABS (07/19/2022) us Provider Scanning Final Result * SCAN - RADIOLOGY/IMAGING (07/19/2022) Anatomical Region Laterality Modality Other us Provider Scanning Final Result documented in this encounter Visit Diagnoses Not on filedocumented in this encounter Care Teams Import Export Manager Relationship Specialty Start Date End Date Nathan Martinez MD PCP - General Family Practice 09/10/20 Monique Garcia MD Referring Physician Gastroenterology 06/11/20 Monique Garcia MD Referring Physician Gastroenterology 06/11/20 documented as of this encounter
--- OUTSIDE RECORDS SUMMARY | 2024-09-03 01:00 | XMS_ITS | Encounter Summary ---
Author Organization [facility] Medical [facility] Address [address] [facility] [address] [place] [address] Care Team Providers Care Admission Nurse Name Role Phone Monique Garcia MD Unavailable [phone] Monique Garcia MD Unavailable [phone] Nathan Martinez MD Primary Care Provider [phone] Encounter Details Date Type Department Care Team (Late st Contact Info) Description 04/14/2023 Orders Only [facility] [place] Health Information Management [address] [place] [address] Scanning, Provider Social History Tobacco Use Types [...] Date/Time Associated Diagnosis Comments SCAN - RADIOLOGY/IMAGING 04/14/2023 SCAN - LABS 04/13/2023 documented in this encounter Results * SCAN - RADIOLOGY/IMAGING (04/14/2023) Anatomical Region Laterality Modality Other us Provider Scanning Final Result * SCAN - LABS (04/13/2023) us Provider Scanning Final Result documented in this encounter Visit Diagnoses Not on filedocumented in this encounter Care Teams Admission Nurse Relationship Specialty Start Date End Date Nathan Martinez MD PCP - General Family Practice 09/10/20 Monique Garcia MD Referring Physician Gastroenterology 06/11/20 Monique Garcia MD Referring Physician Gastroenterology 06/11/20 documented as of this encounter
--- OUTSIDE RECORDS SUMMARY | 2024-09-03 01:00 | XMS_ITS | Encounter Summary ---
Author Organization [facility] Address [address] [address] Care Team Providers Care Batt Machine Operator Name Role Phone Monique Garcia MD Unavailable [phone] Monique Garcia MD Unavailable [phone] Nathan Martinez MD Primary Care Provider [phone] Reason for Visit * Reason Comments Follow-up Six month follow up r/t hyperlipidemia, diabetes, anemia, depression. No current labs in chart. Abdominal Pain Continues to c/o abd ominal pain. States this remains the same as last visit. Pain is intermittent. Reports constipation alternating with loose stools. Hearing Problem C/o decreased hearin g to bilateral ears for the past 2-3 months. C/o ringing to ears. Denies pain or discomfort. Encounter Details Date Type Department Care Team (Late st Contact Info) Description 09/12/2022 9:15 AM FORENSIC ANTHROPOLOGIST Office Visit [facility] Primary Care [address] [place] [address] Nathan Martinez MD [address] [place] [address] Type 2 diabetes mellitus with hyperglycemia, without long-term current use of insulin (CMS/HCC) (HCC) (Primary Dx); Psychophysiologic insomnia; Major depression in remission ([facility]); Mixed hyperlipidemia; Tinnitus of both ears Social History Tobacco Use Types Packs/Day Years [...] Sign Reading Time Taken Comments Blood Pressure 112/72 09/12/2022 9:08 AM FORENSIC ANTHROPOLOGIST Pulse 86 09/12/2022 9:08 AM FORENSIC ANTHROPOLOGIST Temperature 36.2 ??C (97.2 ??F) 09/12/2022 9:08 AM CS T Respiratory Rate 18 09/12/2022 9:08 AM FORENSIC ANTHROPOLOGIST Oxygen Saturation 97% 09/12/2022 9:08 AM FORENSIC ANTHROPOLOGIST Inhaled Oxygen Concentration - - Weight 93.1 kg (205 lb 3.2 oz) 09/12/2022 9:08 A M FORENSIC ANTHROPOLOGIST Height 180.3 cm (5' 10.98 ) 09/12/2022 9:[address] Body Mass Index 28.63 09/12/2022 9:08 AM FORENSIC ANTHROPOLOGIST documented in this encounter Ordered Prescriptions Prescription Sig Dispense Quantity Refills Last Filled Start Date End Date modafiniL (PROVIGIL) 100 mg tablet Take 1 tablet (100 mg total) by mouth daily 90 tablet 09/12/2022 01/20/2023 documented in this encounter Progress Notes * Nathan Martinez MD - 09/12/2022 9:15 AM CST Subjective/Objective Patient ID: Erich Allen is a 52 y.o. male. Chief Complaint Follow-up (Six month follow up r/t hyperlipidemia, diabetes, anemia, depression. No current labs inchart.), Abdominal Pain (Continues to c/o abdominal pain. States this remains the same as last visit. Pain is intermittent. Reports constipation alternating with loose stools. ), and Hearing Problem (C/o decreased hearing to bilateral ears for the past 2-3 months. C/o ringing to ears. Denies pain or discomfort. ) Vitals BP 112/72 (BP Location: Right arm, Patient Position: Sitting) Pulse 86 Temp 36.2 ??C (97.2 ??F) (Skin) Resp 18 Ht 180.3 cm (5' 10.98 ) Wt 93.1 kg (205 lb 3.2 oz) SpO2 97% BMI 28.63 kg/m?? PHQ Screening Over the last 2 [...] administer the PHQ-9): 0 History of Present Illness--eye exam Patient presents for follow-up 1. Diabetes taking Trulicity 1.5 mg weekly and glipizide 10 mg daily. Also on metformin a 1000 mg b.I.d. and Jardiance 25 mg daily.8.0. A1c in November was 8.0.7.5 April 7.5 2. Takes Provigil off-label for attention deficit disorder. 3. Depression. Patient's depression is well controlled . Taking Lexapro 20 mge very day without anyside effects . No manic symptoms or irritability. No substance use. Not suicidal or homicidal. 3. Insomnia taking Desyrel 100 mg nightly 4. Lipidemia taking atorvastatin 10 mg daily.139 LDL Review of Systems Gen.: No fever, night sweats, weight loss, fatigue, or malaise. HEENT: No vision problems. No ear pain or throat pain. No coryza. Chronic tinnitus Hematologic: No adenopathy, bruising, or easy bleeding [...] No loss of interest in pleasurable activities Exam Gen.: No fever, night sweats, weight loss, [...] substances. No loss of interest in pleasurable activitiesGen.: No fever, night sweats, weight loss, fatigue, or malaise. Diabetic foot exam: Left monofilament exam: normal Right monofilament exam: normal Assessment/Plan Diagnoses and all orders for this visit: Type 2 diabetes mellitus with hyperglycemia, without long-term current use of insulin ([facility]) ([facility]) (E11.65) (Primary) Assessment & Plan: A1C TODAY.BMI Follow-up includes: nutrition counseling and exercise counseling. Orders: - POCT hemoglobin A1c Psychophysiologic insomnia (F51.04) Assessment & Plan: Continue trazodone Major depression in remission ([facility]) (F32.5) Assessment & Plan: Continue Lexapro at same dosage. Well controlled. Mixed hyperlipidemia (E78.2) Assessment & Plan: Continue atorvastatin same dosage Tinnitus of both ears (H93.13) Assessment & Plan: Some tinnitus for 2 months. Possible hearing loss. Ear canals normal today drums normal ENT refer Orders: - Ambulatory referral to ENT; Future Other orders - modafiniL (PROVIGIL) 100 mg tablet; Take 1 tablet (100 mg total) by mouth daily NSIC ANTHROPOLOGIST documented in this encounter Miscellaneous Notes * Assessment & Plan Note - Nathan Martinez MD - 09/12/2022 9:35 AM FORENSIC ANTHROPOLOGIST Associated Problem(s): Tinnitus of both ears Some tinnitus for 2 months. Possible hearing loss. Ear canals normal today drums normal ENT refer NSIC ANTHROPOLOGIST * Assessment & Plan Note - Nathan Martinez MD - 09/11/2022 3:45 PM FORENSIC ANTHROPOLOGIST Associated Problem(s): Lipidemia Continue atorvastatin same dosage NSIC ANTHROPOLOGIST * Assessment & Plan Note - Nathan Martinez MD - 09/11/2022 3:44 PM FORENSIC ANTHROPOLOGIST Associated Problem(s): Major depression in remission (HCC) Continue Lexapro at same dosage. Well controlled. NSIC ANTHROPOLOGIST * Assessment & Plan Note - Nathan Martinez MD - 09/11/2022 3:44 PM FORENSIC ANTHROPOLOGIST Associated Problem(s): Psychophysiologic insomnia Continue trazodone NSIC ANTHROPOLOGIST * Assessment & Plan Note - Nathan Martinez MD - 09/11/2022 3:43 PM FORENSIC ANTHROPOLOGIST Associated Problem(s): Type 2 diabetes mellitus with hyperglycemia, without long-term current use of insulin (HCC) A1C TODAY.BMI Follow-up includes: nutrition counseling and exercise counseling. NSIC ANTHROPOLOGIST NSIC ANTHROPOLOGIST documented in this encounter Plan of Treatment Not on file documented as of this encounter Procedures Procedure Name Priority Date/Time Associated Diagnosis Comments POCT HEMOGLOBIN A1C Routine 09/12/2022 9 :25 AM FORENSIC ANTHROPOLOGIST Type 2 diabetes mellitus with hyperglycemia, without long-term current use of insulin ([facility]) ([facility]) documented in this encounter Results * (ABNORMAL) POCT hemoglobin A1c (09/12/2022 9:25 AM FORENSIC ANTHROPOLOGIST) Hemoglobin A1C, POC 7.6 Blood 09/12/2022 9:25 AM FORENSIC ANTHROPOLOGIST Nathan Martinez MD POINT OF CARE TEST ORDERAB LES Final Result documented in this encounter Visit Diagnoses Diagnosis Type 2 diabetes mellitus with hyperglycemia, without long-term current use of insulin ([facility])- Primary Psychophysiologic insomnia Major depression in remission ([facility]) Major depressive disorder, single episode in full remission Mixed hyperlipidemia Tinnitus of both ears Unspecified tinnitus documented in this encounter Discontinued Medications Medication Sig Discontinue Reason Start Date End Da te modafiniL (PROVIGIL) 100 mg tablet TAKE 1 TABLET(100 MG) BY MOUTH DAILY Reorder 06/11/2022 09/12/2022 documented as of this encounter Care Teams Batt Machine Operator Relationship Specialty Start Date End Date Nathan Martinez MD PCP - General Family Practice 09/10/20 Monique Garcia MD Referring Physician Gastroenterology 06/11/20 Monique Garcia MD Referring Physician Gastroenterology 06/11/20 documented as of this encounter
--- OUTSIDE RECORDS SUMMARY | 2024-09-03 01:00 | XMS_ITS | Encounter Summary ---
Author Organization [facility] Medical [facility] Address [address] [address] Care Team Providers Care Sweat Band Sewer Name Role Phone Monique Garcia MD Unavailable [phone] Monique Garcia MD Unavailable [phone] Nathan Martinez MD Primary Care Provider [phone] Reason for Visit * Reason Onset Date Comments Lab Results 05/06/2022 Encounter Details Date Type Department Care Team (Late st Contact Info) Description 05/06/2022 Telephone [facility] Medical [facility] Primary Care [address] [place] [address] Nathan Martinez MD [address] [place] [address] Lab Results Social History Tobacco Use Types Packs/Day Years [...] on file documented as of this encounter Ordered Prescriptions Prescription Sig Dispense Quantity Refills Last Filled Start Date End Date atorvastatin (LIPITOR) 10 mg tablet Take 1 tablet (10 mg total) by mouth daily 30 tablet 5 05/06/2022 05/02/2024 documented in this encounter Miscellaneous Notes * Telephone Encounter - Sujata Hall RN - 05/06/2022 2:07 PM CDT Patient advised of lab results and new orders. Prescription transmitted electronically to pharmacy. * Telephone Encounter - Sujata Hall RN - 05/06/2022 2:07 PM CDT ----- Message from Nathan Martinez MD sent at 05/06/2022 1:46 PM CDT ----- Please call the patient regarding his abnormal result. Cholesterol is higher. Recommend Lipitor 10 mg daily. Urine test was normal. documented in this encounter Plan of Treatment Not on file documented as of this encounter Visit Diagnoses Not on filedocumented in this encounter Care Teams Sweat Band Sewer Relationship Specialty Start Date End Date Nathan Martinez MD PCP - General Family Practice 09/10/20 Monique Garcia MD Referring Physician Gastroenterology 06/11/20 Monique Garcia MD Referring Physician Gastroenterology 06/11/20 documented as of this encounter
--- OUTSIDE RECORDS SUMMARY | 2024-09-03 01:00 | XMS_ITS | Encounter Summary ---
Author Organization [facility] Medical [facility] Address [address] [address] Care Team Providers Care Arc Welder Apprentice Name Role Phone Moniuqe Garcia MD Unavailable [phone] Monique Garcia MD Unavailable [phone] Nathan Martinez MD Primary Care Provider [phone] Reason for Visit * Reason Comments Abdominal Pain Continues to c/o abd ominal pain. Has been under the care of Dr. Garcia and reports several admissions to hospital r/t leonor obstructions. Has been referred to general surgery and has appointment 01/03. Follow-up Three month follow u p r/t depression, anemia, diabetes. No current labs in chart. Encounter Details Date Type Department Care Team (Late st Contact Info) Description 12/16/2021 9:30 AM CDT Office Visit [facility] Primary Care [address] [place] [address] Nathan Martinez MD [address] [place] [address] Type 2 diabetes mellitus with hyperglycemia, without long-term current use of insulin (CMS/HCC) (HCC) (Primary Dx); Attention deficit disorder (ADD) without hyperactivity; Major depression in remission ([facility]); Psychophysiologic insomnia; Right lower quadrant pain; Left inguinal hernia Social History Tobacco Use Types Packs/Day Years [...] Sign Reading Time Taken Comments Blood Pressure 130/82 12/16/2021 9:25 AM CDT Pulse 92 12/16/2021 9:25 AM CDT Temperature 36.2 ??C (97.1 ??F) 12/16/2021 9:25 AM CD T Respiratory Rate 20 12/16/2021 9:25 AM CDT Oxygen Saturation 98% 12/16/2021 9:25 AM CDT Inhaled Oxygen Concentration - - Weight 92.8 kg (204 lb 9.6 oz) 12/16/2021 9:25 A M CDT Height 180.3 cm (5' 10.98 ) 12/16/2021 9:25 AM C DT Body Mass Index 28.55 12/16/2021 9:25 AM CDT documented in this encounter Ordered Prescriptions Prescription Sig Dispense Quantity Refills Last Filled Start Date End Date dulaglutide (TRULICITY) 1.5 mg/0.5 mL pen injector Inject 0.5 mL (1.5 mg total) under the skin every 7 days 1.5 mL 3 12/16/2021 03/11/2022 documented in this encounter Progress Notes * Nathan Martinez MD - 12/16/2021 9:30 AM CDT Subjective/Objective Patient ID: Erich Allen is a 52 y.o. male. Chief Complaint Abdominal Pain (Continues to c/o abdominal pain. Has been under the care of Dr. Garcia and reports several admissions to hospital r/t leonor obstructions. Has been referred to general surgery and has appointment 01/03.) and Follow-up (Three month follow up r/t depression, anemia, diabetes. No current labs in chart.) Vitals BP 130/82 (BP Location: Right arm, Patient Position: Sitting) Pulse 92 Temp 36.2 ??C (97.1 ??F) (Skin) Resp 20 Ht 180.3 cm (5' 10.98 ) Wt 92.8 kg (204 lb 9.6 oz) SpO2 98% BMI 28.55 kg/m?? PHQ Screening Over the last 2 [...] PHQ-9): 0 History of Present Illness Patient last seen in the office 09/16/2021. He was having some right lower quadrant pain with little improvement from Levbid. Pain had been described as gnawing in character and 7/10 in severity. Some loose stools associated occasionally bloody. KUB was normal CT of the abdomen pelvis showed prior c holecystectomy. Gallbladder and appendix absent. Some fatty liver. CBC and lipase normal. Patient was to try peppermint oil pill . Has been in the hospital for several at instances of intestinal blockage recurrence and has been referred to general surgery. 2. Patient maintains on Provigil no definite indication or attention deficit disorder. 3. Diabetes on metformin 1000 mg b.i.d., Jardiance 25 mg daily and glipizide 10 mg daily. Also Trulicity was to be added at last visit. A1c was 9.2 in August. 4. Depression. Patient's depression is well controlled . Taking medicine every day without any side effects . No manic symptoms or irritability. No substance use. Not suicidal or homicidal. PHQ-9 score today 0. Review of Systems Gen.: No fever, night sweats, weight loss, fatigue, or malaise. HEENT: No vision problems. No ear pain or throat pain. No coryza. Hematologic: No adenopathy, bruising, or easy bleeding Cardiovascular: No chest pain, claudication, or TIA symptoms. No palpitations or dizziness. Respiratory: No cough, dyspnea, or wheezing. Gastrointestinal: As above Genitourinary: No blood in the urine or change in urination. Musculoskeletal: No myalgias. No swelling, stiffness, or pain in joints. Neurological: No focal neurological symptoms, headaches, numbness, weakness, or loss of feeling. Psychiatric: As above Physical Exam Gen. appearance: Alert nontoxic no [...] monofilament exam: normal Right monofilament exam: normal : Tender left inguinal hernia Assessment/Plan Diagnoses and all orders for this visit: Type 2 diabetes mellitus with hyperglycemia, without long-term current use of insulin ([facility]) (HCC) (E11.65) (Primary) Assessment & Plan: A1c today. A1c improved at a 0.0 but needs further improved Also needs lipids and microalbumin. Increase Trulicity dose to 1.5 mg weekly Orders: - POCT hemoglobin A1c - Comprehensive metabolic panel; Future - Hemoglobin A1c; Future - Lipid panel; Future - Microalbumin, urine, random; Future Attention deficit disorder (ADD) without hyperactivity (F98.8) Assessment & Plan: Continue modafinil at same dosage. Well controlled. Understands off-label usage. Major depression in remission (HCC) (F32.5) Assessment & Plan: Continue Lexapro at same dosage. Well controlled. Psychophysiologic insomnia (F51.04) Assessment & Plan: Continue trazodone at same dosage. Well controlled. Right lower quadrant pain (R10.31) Assessment & Plan: Still a problem and has seen GI with recurrent intestinal blockage and has appointment with surgeon. Most likely secondary to adhesions also evidence for reducible inguinal hernia left side for whichwe will also have him see surgeon Left inguinal hernia (K40.90) Assessment & Plan: Reducible an already has appointment with surgeon documented in this encounter Miscellaneous Notes * Assessment & Plan Note - Nathan Martinez MD - 12/16/2021 10:00 AM CDT Associated Problem(s): Left inguinal hernia Reducible an already has appointment with surgeon * Assessment & Plan Note - Nathan Martinez MD - 12/16/2021 9:48 AM CDT Associated Problem(s): Right lower quadrant pain Still a problem and has seen GI with recurrent intestinal blockage and has appointment with surgeon. Most likely secondary to adhesions also evidence for reducible inguinal hernia left side for whichwe will also have him see surgeon * Assessment & Plan Note - Nathan Martinez MD - 12/13/2021 9:57 AM CDT Associated Problem(s): Psychophysiologic insomnia Continue trazodone at same dosage. Well controlled. * Assessment & Plan Note - Nathan Martinez MD - 12/13/2021 9:56 AM CDT Associated Problem(s): Major depression in remission (HCC) Continue Lexapro at same dosage. Well controlled. * Assessment & Plan Note - Nathan Martinez MD - 12/13/2021 9:55 AM CDT Associated Problem(s): ADD (attention deficit disorder) Continue modafinil at same dosage. Well controlled. Understands off-label usage. * Assessment & Plan Note - Nathan Martinez MD - 12/13/2021 9:55 AM CDT Associated Problem(s): Type 2 diabetes mellitus with hyperglycemia, without long-term current use of insulin (HCC) A1c today. A1c improved at a 0.0 but needs further improved Also needs lipids and microalbumin. Increase Trulicity dose to 1.5 mg weekly documented in this encounter Plan of Treatment Scheduled Orders Name Type Priority Associated Diagnoses Orde r Schedule Comprehensive metabolic panel Lab Routine Type 2 diabetes mellitus with hyperglycemia, without long-term current use of insulin ([facility]) ([facility]) Expected: 12/16/2021, Expires: 12/16/2022 Hemoglobin A1c Lab Routine Type 2 diabetes mellitus with hyperglycemia, without long-term current use of insulin ([facility]) ([facility]) Expected: 12/16/2021, Expires: 12/16/2022 Lipid panel Lab Routine Type 2 diabetes mellitus with hyperglycemia, without long-term current use of insulin ([facility]) ([facility]) Expected: 12/16/2021, Expires: 12/16/2022 Microalbumin, urine, random Lab Routine Type 2 diabetes mellitus with hyperglycemia, without long-term current use of insulin ([facility]) ([facility]) Expected: 12/16/2021, Expires: 12/16/2022 documented as of this encounter Procedures Procedure Name Priority Date/Time Associated Diagnosis Comments POCT HEMOGLOBIN A1C Routine 12/16/2021 1 0:05 AM CDT Type 2 diabetes mellitus with hyperglycemia, without long-term current use of insulin ([facility]) ([facility]) documented in this encounter Results * (ABNORMAL) POCT hemoglobin A1c (12/16/2021 10:05 AM CDT) Hemoglobin A1C, POC 8.0 Blood specimen (specimen) 12/16/2021 10:05 AM CDT Nathan Martinez MD POINT OF CARE TEST ORDERAB LES Final Result documented in this encounter Visit Diagnoses Diagnosis Type 2 diabetes mellitus with hyperglycemia, without long-term current use of insulin ([facility])- Primary Attention deficit disorder (ADD) without hyperactivity Major depression in remission ([facility]) Major depressive disorder, single episode in full remission Psychophysiologic insomnia Right lower quadrant pain Left inguinal hernia Inguinal hernia without mention of obstruction or gangrene, unilateral or unspecified, (not specified as recurrent) documented in this encounter Discontinued Medications Medication Sig Discontinue Reason Start Date End Da te dulaglutide (Trulicity) 0.75 mg/0.5 mL pen injector Inject 0.5 mL (0.75 mg total) under the skin every 7 days Alternate therapy 12/02/2021 12/16/2021 documented as of this encounter Care Teams Arc Welder Apprentice Relationship Specialty Start Date End Date Nathan Martinez MD PCP - General Family Practice 09/10/20 Monique Garcia MD Referring Physician Gastroenterology 06/11/20 Monique Garcia MD Referring Physician Gastroenterology 06/11/20 documented as of this encounter
--- OUTSIDE RECORDS SUMMARY | 2024-09-03 01:00 | XMS_ITS | Encounter Summary ---
Author Organization [facility] Address [address] [address] Care Team Providers Care Vascular Ultrasound Technician Name Role Phone Monique Garcia MD Unavailable [phone] Monique Garcia MD Unavailable [phone] Nathan Martinez MD Primary Care Provider [phone] Reason for Visit * Reason Comments Ankle Pain C/o left ankle pain over the past month. Pain is intermittent. Describes pain as achy. Pain is worse when climbing stairs. Ice improves pain. Has taken otc Aleve. Encounter Details Date Type Department Care Team (Late st Contact Info) Description 05/05/2022 8:45 AM CDT Office Visit [facility] Primary Care [address] [place] [address] Nathan Martinez MD [address] [place] [address] Type 2 diabetes mellitus with hyperglycemia, without long-term current use of insulin ([facility]) (HCC) (Primary Dx); Major depression in remission (HCC); Attention deficit disorder (ADD) without hyperactivity; Over weight; Psychophysiologic insomnia; Acute left ankle pain Social History Tobacco Use Types Packs/Day Years [...] you are drinking? Patient does not drink 2 Q3: How often do you have si [...] Sign Reading Time Taken Comments Blood Pressure 110/78 05/05/2022 8:36 AM CDT Pulse 90 05/05/2022 8:36 AM CDT Temperature 35.9 ??C (96.6 ??F) 05/05/2022 8:36 AM CD T Respiratory Rate 20 05/05/2022 8:36 AM CDT Oxygen Saturation 99% 05/05/2022 8:36 AM CDT Inhaled Oxygen Concentration - - Weight 93.8 kg (206 lb 12.8 oz) 05/05/2022 8:36 AM CDT Height 180.3 cm (5' 10.98 ) 05/05/2022 8:36 AM C DT Body Mass Index 28.86 05/05/2022 8:36 AM CDT documented in this encounter Ordered Prescriptions Prescription Sig Dispense Quantity Refills Last Filled Start Date End Date triamcinolone (KENALOG) 0.1 % cream Apply to affected area 1-2 times daily as needed. Avoid face and groin. 90 g 1 05/05/2022 traZODone (DESYREL) 100 mg tablet Take 1 tablet (100 mg total) by mouth nightly as needed for sleep 90 tablet 1 05/05/2022 3 documented in this encounter Progress Notes * Nathan Martinez MD - 05/05/2022 8:45 AM CDT Subjective/Objective Patient ID: Erich Allen is a 52 y.o. male. Chief Complaint Ankle Pain (C/o left ankle pain over the past month. Pain is intermittent. Describes pain as achy. Pain is worse when climbing stairs. Ice improves pain. Has taken otc Aleve.) Vitals BP 110/78 (BP Location: Left arm, Patient Position: Sitting) Pulse 90 Temp (!) 35.9 ??C (96.6 ??F) (Skin) Resp 20 Ht 180.3 cm (5' 10.98 ) Wt 93.8 kg (206 lb 12.8 oz) SpO2 99% BMI 28.86 kg/m?? PHQ Screening Over the last 2 [...] the PHQ-9): 0 History of Present Illness needs lipids and microalbumin and eye exam documentation Patient presents for follow-up diabetes last seen 12/16/2021 and at that time was taking Jardiance 25 mg, metformin a 1000 mg b.i.d., and glipizide 10 mg daily. His Trulicity dosage was increased from 0.75-1.5 mg weekly. A1c at last visit was 8.0 which was improved from the previous 9.2. 2. Patientwas on Provigil 100 Weathers for attention deficit disorder. He is fully aware this is off-label but he refused to consider other alternatives as this worked well for him. 3. Depression. Patient's depression is well controlled . Taking Lexapro 20 mg every day without any side effects . No manic symptoms or irritability. No substance use. Not suicidal or homicidal. 4. Chronic insomnia well controlled on trazodone 100 mg nightly. 5. Needs lipids done. Review of Systems Gen.: No fever, night [...] hyperglycemia, without long-term current use of insulin ([facility]) (HCC) (E11.65) (Primary) Assessment & Plan: A1c today . Continued improvement. Continue metformin/glipizide/Trulicity/Jardiance at same dosage.Well controlled. Orders: - POCT hemoglobin A1c - Albumin Creatinine Ratio, Urine; Future - Cholesterol, LDL, direct; Future Major depression in remission ([facility]) (F32.5) Assessment & Plan: Continue Lexapro at same dosage. Well controlled. Attention deficit disorder (ADD) without hyperactivity (F98.8) Assessment & Plan: Continue Provigil at same dosage. Well controlled. Over weight (E66.3) Assessment & Plan: BMI Follow-up includes: nutrition counseling and exercise counseling. Psychophysiologic insomnia (F51.04) Assessment & Plan: Continue trazodone at same dosage. Well controlled. Acute left ankle pain (M25.572) Assessment & Plan: This is getting better to discomfort is over the Achilles tendon probably Achilles tendon inflammation. Recommend referral declined. X-rays negative Other orders - triamcinolone (KENALOG) 0.1 % cream; Apply to affected area 1-2 times daily as needed. Avoid faceand groin. - traZODone (DESYREL) 100 mg tablet; Take 1 tablet (100 mg total) by mouth nightly as needed for sleep Answers submitted by the patient for this visit: Lower Extremity Injury Questionnaire (Submitted on 05/04/2022) Chief Complaint: Lower extremity pain Incident occurred: more than 1 week ago Incident location: at home Injury mechanism: unknown Pain location: left heel Pain quality: aching Pain - numeric: 7/10 Pain course: fluctuating tingling: No inability to bear weight: No loss of motion: No loss of sensation: No muscle weakness: No Foreign body present: no foreign bodies Aggravated by: movement documented in this encounter Miscellaneous Notes * Assessment & Plan Note - Nathan Martinez MD - 05/05/2022 9:03 AM CDT Associated Problem(s): Acute left ankle pain This is getting better to discomfort is over the Achilles tendon probably Achilles tendon inflammation. Recommend referral declined. X-rays negative * Assessment & Plan Note - Nathan Martinez MD - 05/02/2022 11:04 AM CDT Associated Problem(s): Psychophysiologic insomnia Continue trazodone at same dosage. Well controlled. * Assessment & Plan Note - Nathan Martinez MD - 05/02/2022 11:03 AM CDT Associated Problem(s): Over weight BMI Follow-up includes: nutrition counseling and exercise counseling. * Assessment & Plan Note - Nathan Martinez MD - 05/02/2022 11:01 AM CDT Associated Problem(s): ADD (attention deficit disorder) Continue Provigil at same dosage. Well controlled. * Assessment & Plan Note - Nathan Martinez MD - 05/02/2022 11:00 AM CDT Associated Problem(s): Major depression in remission (HCC) Continue Lexapro at same dosage. Well controlled. * Assessment & Plan Note - Nathan Martinez MD - 05/02/2022 10:59 AM CDT Associated Problem(s): Type 2 diabetes mellitus with hyperglycemia, without long-term current use of insulin (HCC) A1c today . Continued improvement. Continue metformin/glipizide/Trulicity/Jardiance at same dosage.Well controlled. documented in this encounter Plan of Treatment Not on file documented as of this encounter Procedures Procedure Name Priority Date/Time Associated Diagnosis Comments ALBUMIN CREATININE RATIO, URINE Routine 05/05/2022 9:04 AM CDT Type 2 diabetes mellitus with hyperglycemia, without long-term current use of insulin (CMS/HCC) ([facility]) CHOLESTEROL, LDL, DIRECT Routine 05/05/2022 9:04 AM CDT Type 2 diabetes mellitus with hyperglycemia, without long-term current use of insulin (CMS/HCC) ([facility]) POCT HEMOGLOBIN A1C Routine 05/05/2022 8 :51 AM CDT Type 2 diabetes mellitus with hyperglycemia, without long-term current use of insulin ([facility]) ([facility]) documented in this encounter Results * (ABNORMAL) Cholesterol, LDL, direct (05/05/2022 9:04 AM CDT) LDL, direct 139(H) <100 mg/dL [facility] Comment: Greatly elevated Triglycerides values (>1200 mg/dL) interfere with the dLDL assay. As no Triglycerides testing was ordered, interpret results with caution. Desirable range <100 mg/dL for primary prevention; ?? <70 mg/dL for patients with CHD or diabetic patients with > or = 2 CHD risk factors. Blood 05/05/2022 9:04 AM CDT 05/05/2022 9:05 AM CDT Narrative [facility] - 05/06/2022 12:48 PM CDT FASTING:NO FASTING: NO us Nathan Martinez MD LAB BLOOD ORDERABLES Final Result [facility] [address] [place] [address] * Albumin Creatinine Ratio, Urine (05/05/2022 9:04 [...] MD LAB URINE ORDERABLES Final Result [facility] [address] [place] [address] * (ABNORMAL) POCT hemoglobin A1c (05/05/2022 8:51 AM CDT) Hemoglobin A1C, POC 7.5 Blood 05/05/2022 8:51 AM CDT Nathan Martinez MD POINT OF CARE TEST ORDERAB LES Final Result documented in this encounter Visit Diagnoses Diagnosis Type 2 diabetes mellitus with hyperglycemia, without long-term current use of insulin (HCC)- Primary Major depression in remission (HCC) Major depressive disorder, single episode in full remission Attention deficit disorder (ADD) without hyperactivity Over weight Overweight Psychophysiologic insomnia Acute left ankle pain documented in this encounter Discontinued Medications Medication Sig Discontinue Reason Start Date End Da te naproxen (NAPROSYN) 500 mg tablet Take 1 tablet (500 mg total) by mouth 2 (two) times a day with meals Therapy completed 04/15/2022 05/05/2022 triamcinolone (KENALOG) 0.1 % cream Apply to affected area 1-2 times daily as needed. Avoid face and groin. Reorder 09/10/2020 05/05/2022 traZODone (DESYREL) 100 mg tablet TAKE 1 TABLET(100 MG) BY MOUTH EVERY NIGHT NEEDED FOR SLEEP Reorder 03/27/2022 05/05/2022 documented as of this encounter Care Teams Vascular Ultrasound Technician Relationship Specialty Start Date End Date Nathan Martinez MD PCP - General Family Practice 09/10/20 Monique Garcia MD Referring Physician Gastroenterology 06/11/20 Monique Garcia MD Referring Physician Gastroenterology 06/11/20 documented as of this encounter
--- OUTSIDE RECORDS SUMMARY | 2024-09-03 01:00 | XMS_ITS | Encounter Summary ---
Author Organization [facility] Address [address] [place] [address] Care Team Providers Care Instruction Librarian Name Role Phone Monique Garcia MD Unavailable Monique Garcia MD Unavailable [phone] Nathan Martinez MD Primary Care Provider [phone] Reason for Referral * MRI/CAT/PET Scan (Routine) - Closed Specialty Diagnoses / Procedures Referred By Hugo dang Referred To Contact Radiology Diagnoses Personal history of other diseases of the digestive system Procedures MRI Abdomen Pelvis Enterography W WO Contrast Monique Garcia MD [address] [place] [address] Phone: tel: fax: [address] [address] Referral ID Status Reason Start Date Expiration Date Visits Re quested Visits Authorized [id number] Closed 10/11/2021 11/10/2022 1 1 Reason for Visit * MRI/CAT/PET Scan (Routine) - Closed Specialty Diagnoses / Procedures Referred By Hugo dang Referred To Contact Radiology Diagnoses Personal history of other diseases of the digestive system Procedures MRI Abdomen Pelvis Enterography W WO Contrast Monique Garcia MD [address] [address] Phone: tel: fax: [address] [address] Referral ID Status Reason Start Date Expiration Date Visits Re quested Visits Authorized [id number] Closed 10/11/2021 11/10/2022 1 1 Encounter Details Date Type Department Care Team (Latest Contact Info) Description 11/15/2021 7:15 AM CDT - 11/15/2021 11:59 PM CDT Hospital Encounter [address] [address] Personal history of other diseases of the digestive system Discharge Disposition: Discharge to home or self [...] have a drink containing alc ohol? Never 09/16/2021 Average Number of Drinks Not on file 022 Q3: How often do you have si x or more drinks on one occasion? Never 09/16/2021 PHQ-2 Answer Date Recorded PHQ-2 Total Score (If total score is 3 or more points, staff should administer the PHQ-9) 0 09/16/2021 Sex and Gender Information Value Date Recorded Sex Assigned at Not on file Legal Sex Male 2:58 AM CDT Gender Identity Male 03/10/2022 6:57 PM CDT Sexual Orientation Not on file documented as of this encounter Medications at Time of Discharge dulaglutide (TRULICITY) 0.75 mg/0.5 mL pen injector Inject 0.5 mL (0.75 mg total) under the skin every 7 days 10 mL 3 09/16/2021 12/02/2021 empagliflozin (JARDIANCE) 25 mg tabletIndication s:type 2 [...] Procedure Name Priority Date/Time Associated Diagnosis Comments MRI ABDOMEN/PELVIS ENTEROGRAPHY W WO CONTRAST Schedule Routine, Read Routine (OP Routine) 11/15/2021 9:05 AM CDT Personal history of other diseases of the digestive system POCT CREATININE FOR CONTRAST EVALUATION Routine 11/15/2021 9:01 AM CDT documented in this encounter Results * MRI Abdomen Pelvis Enterography W WO Contrast (11/15/2021 9:05 AM CDT) Anatomical Region Laterality Modality Body N/A Magnetic Resonan ce 11/15/2021 10:2 2 AM CDT Narrative 11/15/2021 10:40 AM CDT EXAM DESCRIPTION: ?? MRI ABDOMEN/PELVIS ENTEROGRAPHY W WO CONTRAST REASON FOR STUDY: ?? Problems with bowel obstruction x 10 years; evaluate for crohn's disease, per patient. TECHNIQUE: MRI of the abdomen and pelvis performed ?? without and with ?? intravenous contrast according to the enterography protocol. ?All images stored on PACS. ?? Of note, glucagon was not administered per usual protocol due to patient's medical history of diabetes mellitus. CONTRAST TYPE/DOSE: ?? 20 mL Dotarem ?? COMPARISON: ?? No prior MRI available. ??Cross correlation made to CT on 09/02/2021 FINDINGS: GI: Distension of the small bowel is ?? satisfactory . ?? No abnormal wall or fold thickening. ?No skip lesions. ?No definitive hyperenhancing or hypoenhancing segments. ??On postcontrast coronal sequence 901, image 23, there is a short segment of small bowel measuring approximately 4.5 cm in the right hemiabdomen with apparent mild wall thickening and minimal hyperenhancement. ?? However, this segment is well distended on coronal T2 and true FISP sequences without correlate on the recent CT, and is likely an artifact of peristalsis. ?Appendix is not seen, likely removed . ?? No evidence of contrast extravasation into the bowel lumen. ?Scattered colonic diverticuli are seen without evidence of diverticulitis. Strictures: ?? No strictures. Fistulas: ?? No fistulas. Abscesses: ?? No abscess. PERITONEUM: ?? No ascites or free air. No hernia. ?? No locoregional fatty proliferation or any areas of vascular comb sign. RETROPERITONEUM: ?? No mass or adenopathy. ABDOMEN/PELVIS: LOWER CHEST: ?? No significant pulmonary abnormalities. No effusion. LIVER: ?? Normal size. ??No mass. No cysts. GALLBLADDER: ?? Removed. BILE DUCTS: ?? No intrahepatic or extrahepatic ductal dilatation. SPLEEN: ?? Normal size. ??No focal lesions. PANCREAS: ?? No masses. No significant calcifications. No adjacent inflammation or peripancreatic fluid collections. Pancreatic duct not dilated. ?? ADRENALS: ?? Normal. KIDNEYS/URINARY TRACT: ?? No solid masses. No cysts. No stones. No hydronephrosis or hydroureter. ??Symmetric enhancement. ?Normal bladder. REPRODUCTIVE: ?? No significant abnormality. VASCULATURE: ??No abdominal aortic aneurysm. MUSCULOSKELETAL: ?? No abnormal enhancement or acute signal abnormality. IMPRESSION: ??Normal MR enterography, without evidence of Crohn's disease. THIS IS AN ELECTRONICALLY VERIFIED FINAL REPORT 11/15/2021 10:40 AM - Electronically signed by ??Rufino Petty M.D. ML D: ??11/15/2021 10:40 AM T: Report ID: [id number] Reading Location: ??[id number] Procedure Note Rufino Petty MD - 11/15/2021 EXAM DESCRIPTION: MRI ABDOMEN/PELVIS ENTEROGRAPHY W WO CONTRAST REASON FOR STUDY: Problems with bowel obstruction x 10 years; evaluatefor crohn's disease, per patient. TECHNIQUE: MRI of the abdomen and pelvis performed without and with intravenous contrast according to the enterography protocol. Allimages stored on PACS. Of note, glucagon was not administered per usualprotocol due to patient's medical history of diabetes mellitus. CONTRAST TYPE/DOSE: 20 mL Dotarem COMPARISON: No prior MRI available. Cross correlation made to CT on 09/02/2021 FINDINGS: GI: Distension of the small bowel is satisfactory . No abnormal wallor fold thickening. No skip lesions. No definitive hyperenhancing or hypoenhancing segments. On postcontrast coronal sequence 901, image 23,there is a short segment of small bowel measuring approximately 4.5 cm in theright hemiabdomen with apparent mild wall thickening and minimalhyperenhancement. However, this segment is well distended on coronal T2 and true FISPsequences without correlate on the recent CT, and is likely an artifact ofperistalsis. Appendix is not seen, likely removed . No evidence of contrast extravasation into the bowel lumen. Scattered colonic diverticuli areseen without evidence of diverticulitis. Strictures: No strictures. Fistulas: No fistulas. Abscesses: No abscess. PERITONEUM: No ascites or free air. No hernia. No locoregional fatty proliferation or any areas of vascular comb sign. RETROPERITONEUM: No mass or adenopathy. ABDOMEN/PELVIS: LOWER CHEST: No significant pulmonary abnormalities. No effusion. LIVER: Normal size. No mass. No cysts. GALLBLADDER: Removed. BILE DUCTS: No intrahepatic or extrahepatic ductal dilatation. SPLEEN: Normal size. No focal lesions. PANCREAS: No masses. No significant calcifications. No adjacentinflammation or peripancreatic fluid collections. Pancreatic duct not dilated. ADRENALS: Normal. KIDNEYS/URINARY TRACT: No solid masses. No cysts. No stones. No hydronephrosis or hydroureter. Symmetric enhancement. Normal bladder. REPRODUCTIVE: No significant abnormality. VASCULATURE: No abdominal aortic aneurysm. MUSCULOSKELETAL: No abnormal enhancement or acute signal abnormality. IMPRESSION: Normal MR enterography, without evidence of Crohn's disease. THIS IS AN ELECTRONICALLY VERIFIED FINAL REPORT 11/15/2021 10:40 AM - Electronically signed by Rufino Petty M.D. T: Report ID: [id number] Reading Location: [place] [address] Monique Garcia MD IMG MRI PROCEDURES Final Result * POCT creatinine for contrast evaluation (11/15/2021 9:01 AM CDT) Creatinine POC 1.00 0.80 - 1.30 mg/dL [facility] Blood 11/15/2021 9:01 AM CDT 11/15/2021 9:01 AM CDT Monique Garcia MD POINT OF CARE TEST ORDERA BLES Final Result [facility] [address] [facility] [place] [address] documented in this encounter Visit Diagnoses Diagnosis Personal history of other diseases of the digestive system documented in this encounter Administered Medications Inactive Administered Medications - up to 3 most recent administrations Medication Order MAR Action Action Date Dose Rate Site gadoterate meglumine (DOTAREM) 0.5 mmol/mL injection 20 mL 20 mL, intravenous, Once in imaging, contrast, Starting on Thu11/15/21 at 0943, For 1 dose Contrast Given 11/15/2021 8:57 AM CDT 20 mL Right Antecubital documented in this encounter Orders Medications Ordered That Brendan ht Not Have Been Administered Count Last Ordered Date First Ordered Date gadoterate meglumine (DOTARE M) 0.5 mmol/mL injection 20 mL 1 11/15/2021 documented in this encounter Care Teams Instruction Librarian Relationship Specialty Start Date End Date Nathan Martinez MD PCP - General Family Practice 09/10/20 Monique Garcia MD Referring Physician Gastroenterology 06/11/20 Monique Garcia MD Referring Physician Gastroenterology 06/11/20 documented as of this encounter
--- OUTSIDE RECORDS SUMMARY | 2024-09-03 01:00 | XMS_ITS | Encounter Summary ---
Author Organization [facility] Address [address] [facility] [address] [place] [address] Care Team Providers Care Etl Manager Name Role Phone Monique Garcia MD Unavailable [phone] Monique Garcia MD Unavailable [phone] Nathan Martinez MD Primary Care Provider [phone] Reason for Visit * Reason Comments Follow-up Here for follow up r /t left knee pain. Requesting return to work. Reports knee pain has improved. 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 Encounter Details Date Type Department Care Team (Late st Contact Info) Description 12/05/2022 7:45 AM CDT Office Visit [facility] Primary Care [address] [place] [address] Nathan Martinez MD [address] [place] [address] Acute pain of left knee (Primary Dx); Type 2 diabetes mellitus with hyperglycemia, without long-term current use of insulin ([facility]/HCC) ([facility]) Social History Tobacco Use Types Packs/Day Years [...] you are drinking? Patient does not drink 3 Q3: How often do you have si [...] Sign Reading Time Taken Comments Blood Pressure 122/68 12/05/2022 7:35 AM CDT Pulse 86 12/05/2022 7:35 AM CDT Temperature 36.4 ??C (97.5 ??F) 12/05/2022 7:35 AM CD T Respiratory Rate 18 12/05/2022 7:35 AM CDT Oxygen Saturation 98% 12/05/2022 7:35 AM CDT Inhaled Oxygen Concentration - - Weight 90.4 kg (199 lb 3.2 oz) 12/05/2022 7:35 A M CDT Height 180.3 cm (5' 10.98 ) 12/05/2022 7:35 AM C DT Body Mass Index 27.8 12/05/2022 7:35 AM CDT documented in this encounter Progress Notes * Nathan Martinez MD - 12/05/2022 7:45 AM CDT Subjective/Objective Patient ID: Erich Allen is a 52 y.o. male. Chief Complaint Follow-up (Here for follow up r/t left knee pain. Requesting return to work. Reports knee pain has improved. 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 PHQ Screening History of Present Illness Patient had been seen 12/01/2021. He had marked knee pain left side after falling out of a truck. Had significant pain with weight-bearing. MRI ordered but not done. He was given a note to be off work. He called on the 10th and ask for a return to work note without restriction. He was told he wouldhave to be evaluated 1st. He is not been seen yet by orthopedics. Review of Systems Gen.: No fever, night [...] sensory and motor exams. Gait normal. Skin: Healing scab distal to knee lower leg with no signs of infection. . Musculoskeletal: No swelling or bony tenderness. Full range of motion in the knee without pain. Good solid endpoints all ligaments. Psych: Not depressed. No agitation or akathisia. Orientation and concentration normal. Assessment/Plan I spent a total of 21 minutes Face to Face minutes of which more than 50% of the time was spent in counseling and coordination of care. This time included: Discussing his work in the things he needs to do in his perceived limitations and how much improved he is. It appears he is doing much better. I think he can go back to work without restriction. Discussed need to follow-up if problems getting back to work discussed symptoms of instability in the need to contact us immediately. Discussed signs of infection but this unlikely at this point. Contact us if signs of infection. Discussed whether he should get MRI or see Orthopedics and he would rather defer for now. This seems reasonable. No longer taking tramadol. Discussed risk associated with tramadol. Diagnoses and all orders for this visit: Acute pain of left knee (M25.562) (Primary) Assessment & Plan: Much improved and may return to work without restriction. Follow-up p.r.n.. Type 2 diabetes mellitus with hyperglycemia, without long-term current use of insulin ([facility]) (HCC) (E11.65) - Ambulatory referral to Ophthalmology; Future Answers submitted by the patient for this visit: Lower Extremity Injury Questionnaire (Submitted on 12/03/2022) Chief Complaint: Lower extremity pain Incident occurred: 3 to 5 days ago Incident location: other Injury mechanism: a fall Pain location: left knee Pain - numeric: 5/10 Pain course: improving tingling: No inability to bear weight: No loss of motion: No loss of sensation: No muscle weakness: No Foreign body present: no foreign bodies documented in this encounter Miscellaneous Notes * Assessment & Plan Note - Nathan Martinez MD - 12/05/2022 7:59 AM CDT Associated Problem(s): Right knee pain Much improved and may return to work without restriction. Follow-up p.r.n.. documented in this encounter Plan of Treatment Not on file documented as of this encounter Visit Diagnoses Diagnosis Acute pain of left knee- Primary Type 2 diabetes mellitus with hyperglycemia, without long-term current use of insulin ([facility]) documented in this encounter Care Teams Etl Manager Relationship Specialty Start Date End Date Nathan Martinez MD PCP - General Family Practice 09/10/20 Monique Garcia MD Referring Physician Gastroenterology 06/11/20 Monique Garcia MD Referring Physician Gastroenterology 06/11/20 documented as of this encounter
--- OUTSIDE RECORDS SUMMARY | 2024-09-03 01:00 | XMS_ITS | Encounter Summary ---
Author Organization [facility] Address [address] [facility] [address] [place] [address] Care Team Providers Care Fatback Trimmer Name Role Phone Monique Garcia MD Unavailable [phone] Monique Garcia MD Unavailable [phone] Nathan Martinez MD Primary Care Provider [phone] Encounter Details Date Type Department Care Team (Late st Contact Info) Description 05/17/2023 Orders Only [facility] [place] Health Information Management [address] [place] [address] Scanning, Provider Social History Tobacco Use Types [...] Date/Time Associated Diagnosis Comments SCAN - RADIOLOGY/IMAGING 05/17/2023 documented in this encounter Results * SCAN - RADIOLOGY/IMAGING (05/17/2023) Anatomical Region Laterality Modality Other us Provider Scanning Final Result documented in this encounter Visit Diagnoses Not on filedocumented in this encounter Care Teams Fatback Trimmer Relationship Specialty Start Date End Date Nathan Martinez MD PCP - General Family Practice 09/10/20 Monique Garcia MD Referring Physician Gastroenterology 06/11/20 Monique Garcia MD Referring Physician Gastroenterology 06/11/20 documented as of this encounter
--- OUTSIDE RECORDS SUMMARY | 2024-09-03 01:00 | XMS_ITS | Encounter Summary ---
Author Organization [facility] Address [address] [facility] [address] [place] [address] Care Team Providers Care Manager Category Name Role Phone Monique Garcia MD Unavailable [phone] Monique Garcia MD Unavailable [phone] Nathan Martinez MD Primary Care Provider [phone] Encounter Details Date Type Department Care Team (Late st Contact Info) Description 03/09/2022 Orders Only [facility] [place] [address] [place] [address] Scanning, Provider Social History Tobacco Use Types [...] Date/Time Associated Diagnosis Comments SCAN - RADIOLOGY/IMAGING 03/09/2022 SCAN - LABS 03/09/2022 documented in this encounter Results * SCAN - LABS (03/09/2022) us Provider Scanning Final Result * SCAN - RADIOLOGY/IMAGING (03/09/2022) Anatomical Region Laterality Modality Other us Provider Scanning Edited Result - Final documented in this encounter Visit Diagnoses Not on filedocumented in this encounter Care Teams Manager Category Relationship Specialty Start Date End Date Nathan Martinez MD PCP - General Family Practice 09/10/20 Monique Garcia MD Referring Physician Gastroenterology 06/11/20 Monique Garcia MD Referring Physician Gastroenterology 06/11/20 documented as of this encounter
--- OUTSIDE RECORDS SUMMARY | 2024-09-03 01:00 | XMS_ITS | Encounter Summary ---
Author Organization [facility] Address [address] [address] Care Team Providers Care Fondant Puff Maker Name Role Phone Monique Garcia MD Unavailable [phone] Monique Garcia MD Unavailable [phone] Nathan Martinez MD Primary Care Provider [phone] Reason for Visit * Reason Onset Date Comments Insurance Referrals 12/31/2021 Encounter Details Date Type Department Care Team (Late st Contact Info) Description 12/31/2021 Telephone [facility] Primary Care [address] [place] [address] Nathan Martinez MD [address] [place] [address] Insurance Referrals Social History Tobacco Use Types Packs/Day Years [...] Telephone Encounter - Sujata Hall RN - 12/31/2021 10:22 AM CDT Received phone call from Virginie with [facility] requesting Melissa wing for upcoming appointment. Referral transmitted electronically. documented in this encounter Plan of Treatment Not on file documented as of this encounter Visit Diagnoses Diagnosis Encounter for screening colonoscopy- Primary documented in this encounter Care Teams Fondant Puff Maker Relationship Specialty Start Date End Date Nathan Martinez MD PCP - General Family Practice 09/10/20 Monique Garcia MD Referring Physician Gastroenterology 06/11/20 Monique Garcia MD Referring Physician Gastroenterology 06/11/20 documented as of this encounter
--- OUTSIDE RECORDS SUMMARY | 2024-09-03 01:00 | XMS_ITS | Encounter Summary ---
Author Organization [facility] Address [address] [facility] [address] [place] [address] Care Team Providers Care Brake Repair Supervisor Name Role Phone Monique Garcia MD Unavailable [phone] Monique Garcia MD Unavailable [phone] Nathan Martinez MD Primary Care Provider [phone] Encounter Details Date Type Department Care Team (Late st Contact Info) Description 02/02/2023 Orders Only [facility] Health Information Management [address] [place] [address] Scanning, Provider Social History Tobacco Use Types [...] Date/Time Associated Diagnosis Comments SCAN - RADIOLOGY/IMAGING 02/02/2023 SCAN - LABS 02/02/2023 documented in this encounter Results * SCAN - LABS (02/02/2023) us Provider Scanning Final Result * SCAN - RADIOLOGY/IMAGING (02/02/2023) Anatomical Region Laterality Modality Other us Provider Scanning Edited Result - Final documented in this encounter Visit Diagnoses Not on filedocumented in this encounter Care Teams Brake Repair Supervisor Relationship Specialty Start Date End Date Nathan Martinez MD PCP - General Family Practice 09/10/20 Monique Garcia MD Referring Physician Gastroenterology 06/11/20 Monique Garcia MD Referring Physician Gastroenterology 06/11/20 documented as of this encounter
--- OUTSIDE RECORDS SUMMARY | 2024-09-03 01:00 | XMS_ITS | Encounter Summary ---
Author Organization [facility] Address [address] [facility] [address] [place] [address] Care Team Providers Care Maintenance Data Analyst Name Role Phone Monique Garcia MD Unavailable [phone] Monique Garcia MD Unavailable [phone] Nathan Martinez MD Primary Care Provider [phone] Encounter Details Date Type Department Care Team (Late st Contact Info) Description 02/03/2023 Orders Only [facility] Health Information Management [address] [place] [address] Scanning, Provider Social History Tobacco Use Types [...] Date/Time Associated Diagnosis Comments SCAN - RADIOLOGY/IMAGING 02/03/2023 documented in this encounter Results * SCAN - RADIOLOGY/IMAGING (02/03/2023) Anatomical Region Laterality Modality Other us Provider Scanning Final Result documented in this encounter Visit Diagnoses Not on filedocumented in this encounter Care Teams Maintenance Data Analyst Relationship Specialty Start Date End Date Nathan Martinez MD PCP - General Family Practice 09/10/20 Monique Garcia MD Referring Physician Gastroenterology 06/11/20 Monique Garcia MD Referring Physician Gastroenterology 06/11/20 documented as of this encounter
--- OUTSIDE RECORDS SUMMARY | 2024-09-03 01:00 | XMS_ITS | Encounter Summary ---
Author Organization [facility] Address [address] [facility] [address] [place] [address] Care Team Providers Care Engineer Byproduct Name Role Phone Monique Garcia MD Unavailable [phone] Monique Garcia MD Unavailable [phone] Nathan Martinez MD Primary Care Provider [phone] Encounter Details Date Type Department Care Team (Late st Contact Info) Description 07/14/2022 Orders Only [facility] [place] Information Management [address] [place] [address] Scanning, Provider Social History Tobacco Use Types [...] Date/Time Associated Diagnosis Comments SCAN - RADIOLOGY/IMAGING 07/14/2022 documented in this encounter Results * SCAN - RADIOLOGY/IMAGING (07/14/2022) Anatomical Region Laterality Modality Other us Provider Scanning Final Result documented in this encounter Visit Diagnoses Not on filedocumented in this encounter Care Teams Engineer Byproduct Relationship Specialty Start Date End Date Nathan Martinez MD PCP - General Family Practice 09/10/20 Monique Garcia MD Referring Physician Gastroenterology 06/11/20 Monique Garcia MD Referring Physician Gastroenterology 06/11/20 documented as of this encounter
--- OUTSIDE RECORDS SUMMARY | 2024-09-03 01:00 | XMS_ITS | Encounter Summary ---
Author Organization [facility] Address [address] [facility] [address] [place] [address] Care Team Providers Care Farmworker Dairy Name Role Phone Monique Garcia MD Unavailable [phone] Monique Garcia MD Unavailable [phone] Nathan Martinez MD Primary Care Provider [phone] Encounter Details Date Type Department Care Team (Late st Contact Info) Description 12/06/2021 Orders Only [facility] [place] Health Information Management [address] [place] [address] Scanning, Provider Social History Tobacco Use Types [...] Date/Time Associated Diagnosis Comments SCAN - RADIOLOGY/IMAGING 12/06/2021 SCAN - LABS 12/06/2021 documented in this encounter Results * SCAN - LABS (12/06/2021) us Provider Scanning Final Result * SCAN - RADIOLOGY/IMAGING (12/06/2021) Anatomical Region Laterality Modality Other us Provider Scanning Final Result documented in this encounter Visit Diagnoses Not on filedocumented in this encounter Care Teams Farmworker Dairy Relationship Specialty Start Date End Date Nathan Martinez MD PCP - General Family Practice 09/10/20 Monique Garcia MD Referring Physician Gastroenterology 06/11/20 Monique Garcia MD Referring Physician Gastroenterology 06/11/20 documented as of this encounter
--- OUTSIDE RECORDS SUMMARY | 2024-09-03 01:00 | XMS_ITS | Encounter Summary ---
Author Organization [facility] Address [address] [facility] [address] [place] [address] Care Team Providers Care Manager Wellness Name Role Phone Monique Garcia MD Unavailable Monique Garcia MD Unavailable [phone] Nathan Martinez MD Primary Care Provider [phone] Encounter Details Date Type Department Care Team (Late st Contact Info) Description 12/17/2021 Orders Only [facility] [place] [place] Health Information Management [address] [place] [address] Scanning, Provider Social History Tobacco Use Types [...] Date/Time Associated Diagnosis Comments SCAN - RADIOLOGY/IMAGING 12/17/2021 documented in this encounter Results * SCAN - RADIOLOGY/IMAGING (12/17/2021) Anatomical Region Laterality Modality Other us Provider Scanning Edited Result - Final documented in this encounter Visit Diagnoses Not on filedocumented in this encounter Care Teams Manager Wellness Relationship Specialty Start Date End Date Nathan Martinez MD PCP - General Family Practice 09/10/20 Monique Garcia MD Referring Physician Gastroenterology 06/11/20 Monique Garcia MD Referring Physician Gastroenterology 06/11/20 documented as of this encounter
--- OUTSIDE RECORDS SUMMARY | 2024-09-03 01:01 | XMS_ITS | Encounter Summary ---
Author Organization 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 Never 06/17/2021 Average Number of Drinks Not on file 021 Q3: How often do you have si x or more drinks on one occasion? Never 06/17/2021 PHQ-2 Answer Date Recorded PHQ-2 Total Score (If total score is 3 or more points, staff should administer the PHQ-9) 0 06/17/2021 Sex and Gender Information Value Date Recorded Sex Assigned at Not on file Legal Sex Male 2:58 AM CDT Gender Identity Male 03/10/2022 6:57 PM CDT Sexual Orientation Not on file documented as of this encounter Last Filed Vital Signs Vital Sign Reading Time Taken Comments Blood Pressure 137/89 06/17/2021 3:55 PM CDT Pulse 78 06/17/2021 3:55 PM CDT Temperature 36.6 ??C (97.9 ??F) 06/17/2021 1 1:49 AM CDT Respiratory Rate 18 06/17/2021 3:55 PM CDT Oxygen Saturation 97% 06/17/2021 3:55 PM CDT Inhaled Oxygen Concentration - - Weight 94.7 kg (208 lb 12.4 oz) 021 11:49 AM CDT Height 180.3 cm (5' 11 ) 06/17/2021 11: 49 AM CDT Body Mass Index 29.12 06/17/2021 11:49 AM CDT documented in this encounter Discharge Instructions * Discharge Instructions* Carleen Conroy NP - 06/17/2021 3:42 PM CDT 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 * Acute Abdominal Pain (AfterCare(R) Instructions(ER/ED)) ([place]) documented in this encounter Medications at Time of Discharge ciprofloxacin (CIPRO) 500 mg tablet Take 1 tablet (500 mg total) by mouth 2 (two) times a day for 10 days 20 tablet 06/17/2021 06/27/2021 metroNIDAZOLE (FLAGYL) 500 mg tablet Take 1 tablet (500 mg total) by mouth 3 (three) times a day for 10 days 30 tablet 06/17/2021 06/27/2021 empagliflozin (JARDIANCE) 25 mg tabletIndication s:type 2 diabetes mellitus Take 1 tablet (25 mg total) by mouth daily 90 tablet 3 11/12/2020 09/02/2021 escitalopram (LEXAPRO) 20 mg tablet Take 1 tablet (20 mg total) by mouth daily 90 tablet 3 06/11/2020 09/02/2021 glipiZIDE (GLUCOTROL) 5 mg tabletIndication s:type 2 diabetes mellitus Take 1 tablet (5 mg total) by mouth daily 30 tablet 11 06/17/2021 06/21/2021 HYDROcodone-acet aminophen (NORCO) 5-325 mg per tabletIndication s:Pain Take 1 tablet by mouth every 6 (six) hours as needed for pain 12 tablet 06/17/2021 08/30/2021 metFORMIN (GLUCOPHAGE) 1,000 mg tablet Take 1 tablet (1,000 mg total) by mouth 2 (two) times a day with meals 180 tablet 3 02/11/2021 09/02/2021 modafiniL (PROVIGIL) 100 mg tablet Take 1 tablet (100 mg total) by mouth daily 30 tablet 3 02/11/2021 08/05/2021 traZODone (DESYREL) 100 mg tablet Take 1 tablet (100 mg total) by mouth nightly as needed for sleep 30 tablet 5 09/10/2020 08/05/2021 triamcinolone (KENALOG) 0.1 % cream Apply to affected area 1-2 times daily as needed. Avoid face and groin. 30 g 3 09/10/2020 05/05/2022 documented as of this encounter Ordered Prescriptions Prescription Sig Dispense Quantity Refills Last Filled Start Date End Date HYDROcodone-acetam inophen (NORCO) 5-325 mg per tabletIndications: Pain Take 1 tablet by mouth every 6 (six) hours as needed for pain 12 tablet 06/17/2021 08/30/2021 HYDROcodone-acetam inophen (NORCO) 5-325 mg per tabletIndications: Pain Take 1 tablet by mouth every 6 (six) hours as needed for pain 12 tablet 06/17/2021 06/17/2021 documented in this encounter Discharge Disposition Disposition Code Departure Means Destination Discharge to home or self care documented in this encounter ED Notes * Sharee Dela Cruz RN - 06/17/2021 11:48 AM CDT Pt here for c/o abdominal pain, nausea, and blood in stool x 2 days. Per pt, pain is radiating intotesticles. Pt states stool appearance is coffee ground looking. Pt has hx diverticulitis, adhesions, and blockages. Pt last ate yesterday and drank gatorade this morning. * Carleen Conroy, [employer] - 06/17/2021 11:47 AM CDT HPI Chief Complaint Patient presents with ??? Abdominal Pain HPI 8:53 AM Erich Allen is a 51 y.o. male presenting to the ED c/o lower abdominal pain with diarrhea and dark colored stool for the past 2 days. He reports the pain in his abdomen is 8/10. He reports history of adhesions, diverticulitis and is concerned for bowel obstruction today. He reports that hehas pain in his right lower which radiates into his right testicle. He denies testicular swelling or testicle concerns. Last time he ate was yesterday. Patient drink Gatorade and water this morning . Patient History: Past Medical History: Diagnosis Date [...] can of chew per week since 1994 Vaping Use ??? Vaping Use: Never used Substance Use Topics ??? Alcohol use: Not Currently ??? Drug use: Not Currently No current facility-administered medications for this encounter. Current Outpatient Medications: ??? ciprofloxacin (CIPRO) 500 mg tablet ??? empagliflozin (JARDIANCE) 25 mg tablet ??? escitalopram (LEXAPRO) 20 mg tablet ??? glipiZIDE (GLUCOTROL) 5 mg tablet ??? HYDROcodone-acetaminophen (NORCO) 5-325 mg per tablet ??? metFORMIN (GLUCOPHAGE) 1,000 mg tablet ??? metroNIDAZOLE (FLAGYL) 500 mg tablet ??? modafiniL (PROVIGIL) 100 mg tablet ??? traZODone (DESYREL) 100 mg tablet ??? triamcinolone (KENALOG) 0.1 % cream Review of Systems Review of Systems Gastrointestinal: Positive for abdominal pain. All other systems reviewed and are negative. All systems reviewed and are neg or non contributory for this patients presentation today other than as stated in the HPI . Physical Exam ED Triage Vitals Temp Pulse Resp BP SpO2 06/17/21 1149 06/17/21 1149 06/17/21 1149 06/17/21 1149 06/17/21 1149 36.6 ??C (97.9 ??F) 90 16 131/87 97 % Temp src Heart Rate Source Patient Position BP Location FiO2 (%) 06/17/21 1149 06/17/21 1555 06/17/21 1423 06/17/21 1423 -- Temporal Pulse Oximetry Sitting Right arm Physical Exam Vitals and nursing note reviewed. Constitutional: Appearance: He is well-developed. HENT: Head: Normocephalic and atraumatic. Mouth/Throat: Mouth: Mucous membranes are moist. Eyes: Pupils: Pupils are equal, round, and reactive to light. Cardiovascular: Rate and Rhythm: Normal rate. Heart sounds: Normal heart sounds. Pulmonary: Effort: Pulmonary effort is normal. No respiratory distress. Breath sounds: Normal breath sounds. Abdominal: General: Abdomen is flat. Bowel sounds are normal. Palpations: Abdomen is soft. Tenderness: There is abdominal tenderness. There is no right CVA tenderness, left CVA tenderness orrebound. Comments: Generalized lower abdominal tenderness right greater than left, no rebound tenderness, nobruising, no trauma appearance Skin: General: Skin is warm and dry. Capillary Refill: Capillary refill takes less than 2 seconds. Neurological: General: No focal deficit present. Mental Status: He is alert and oriented to person, place, and time. Psychiatric: Mood and Affect: Mood normal. Behavior: Behavior normal. Procedures MDM Labs Reviewed COMPREHENSIVE METABOLIC PANEL - Abnormal Result Value Sodium 136 Potassium, pl 4.7 Chloride 97 CO2 27 Anion gap 12 BUN 12 Creatinine 0.90 Glucose 214 (*) Calcium 9.6 Bilirubin, total 0.3 Protein, pl 7.9 Albumin 4.8 Alk phos 90 ALT 32 AST 26 CBC WITH AUTO DIFFERENTIAL - Abnormal WBC 5.9 Hgb 15.2 Hct 46.1 Plt 257 MPV 9.3 RBC 5.82 (*) MCV 79.2 (*) MCH 26.1 (*) MCHC 33.0 RDW CV 14.2 RDW SD 40.4 NRBC abs 0.00 RESPIRATORY PATHOGEN PANEL Influenza A RNA Not Detected Influenza B RNA Not Detected RSV RNA Not Detected COVID-19 RNA Not Detected Coronavirus 229E RNA Not Detected Coronavirus HKU1 RNA Not Detected Coronavirus NL63 RNA Not Detected Coronavirus OC43 RNA Not Detected Adenovirus DNA Not Detected Metapneumovirus RNA Not Detected Rhinovirus/Enterovirus RNA Not Detected Parainfluenza 1 RNA Not Detected Parainfluenza 2 RNA Not Detected Parainfluenza 3 RNA Not Detected Parainfluenza 4 RNA Not Detected B. pertussis DNA Not Detected B. parapertussis DNA Not Detected C. pneumoniae DNA Not Detected M. pneumoniae DNA Not Detected Narrative: Is the Patient experiencing symptoms consistent with COVID?->Yes Date of Symptom Onset->06/14/21 Reason for testing?->Symptomatic (not immunocompromised) Is the patient hospitalized?->No Is the patient admitted to an ICU?->No Does the patient currently work in a healthcare facility with direct patient contact?->No Is the patient a resident of a congregate care or living setting?->No Is the patient ?->No Known exposure to confirmed or suspected COVID-19 case?->No Surveillance testing for transplant patient?->No Interpretive Data The [employer] FilmArray Respiratory Panel (RP2.1) assay is a multiplexed real-time PCR based nucleic acid test capable of simultaneous qualitative detection and identification of multiple respiratory viral and bacterial nucleic acids, including SARS Coronavirus 2 (the causative agent of COVID-19). The following bacteria, viruses and virus subtypes can be identified using the FilmArray RP2.1 assay: Bordetella pertussis, Bordetella parapertussis, Chlamydia pneumoniae, Mycoplasma pneumoniae, Adenovirus, SARS Coronavirus 2, seasonal coronaviruses (Coronavirus HKU1, Coronavirus NL63, Coronavirus 229E, and Coronavirus OC43), Influenza A, Influenza A subtype H1, Influenza A subtype H3, Influenza A subtype 2009 H1, Influenza B, Metapneumovirus, Parainfluenza 1, Parainfluenza 2, Parainfluenza 3, Parainfluenza 4, RSV, Rhinovirus/Enterovirus. Due to the genetic similarity between human Rhinovirus and Enterovirus, the FilmArray RP2.1 assay cannot reliably differentiate them. Coronavirus OC43 may cross-react with some isolates of Coronavirus HKU1. ??A dual positive result may be due to cross-reactivity or may indicate a co-infection. The detection and identification of specific viral and bacterial nucleic acids from individuals exhibiting signs and symptoms of a respiratory infection aids in the diagnosis of respiratory infection if used in conjunction with other clinical and epidemiological information. ??The results of this test should not be used as the sole basis for diagnosis, treatment, or other management decisions. ??Negative results in the setting of a respiratory illness may be due to infection with pathogens that are not detected by this test. ??Positive results do not rule out infection/co-infection with other organisms. ??The agent(s) detected by the FilmArray RP2.1 may not be the definite cause of disease. ??Additional testing (lab, imaging, etc.) may be necessary when evaluating a patient with possible respiratory tract infection. The FilmArray RP2.1 assay has FDA clearance for testing of [employer] swabs. The performance characteristics of this assay have been determined by [facility]. Current interpretive data was last revised on 2021. Interpretive Data The [employer] FilmArray Respiratory Panel (RP2.1) assay is a multiplexed real-time PCR based nucleic acid test capable of simultaneous qualitative detection and identification of multiple respiratory viral and bacterial nucleic acids, including SARS Coronavirus 2 (the causative agent of COVID-19). The following bacteria, viruses and virus subtypes can be identified using the FilmArray RP2.1 assay: Bordetella pertussis, Bordetella parapertussis, Chlamydia pneumoniae, Mycoplasma pneumoniae, Adenovirus, SARS Coronavirus 2, seasonal coronaviruses (Coronavirus HKU1, Coronavirus NL63, Coronavirus 229E, and Coronavirus OC43), Influenza A, Influenza A subtype H1, Influenza A subtype H3, Influenza A subtype 2009 H1, Influenza B, Metapneumovirus, Parainfluenza 1, Parainfluenza 2, Parainfluenza 3, Parainfluenza 4, RSV, Rhinovirus/Enterovirus. Due to the genetic similarity between human Rhinovirus and Enterovirus, the FilmArray RP2.1 assay cannot reliably differentiate them. Coronavirus OC43 may cross-react with some isolates of Coronavirus HKU1. ??A dual positive result may be due to cross-reactivity or may indicate a co-infection. The detection and identification of specific viral and bacterial nucleic acids from individuals exhibiting signs and symptoms of a respiratory infection aids in the diagnosis of respiratory infection if used in conjunction with other clinical and epidemiological information. ??The results of this test should not be used as the sole basis for diagnosis, treatment, or other management decisions. ??Negative results in the setting of a respiratory illness may be due to infection with pathogens that are not detected by this test. ??Positive results do not rule out infection/co-infection with other organisms. ??The agent(s) detected by the Film[employer] RP2.1 may not be the definite cause of disease. ??Additional testing (lab, imaging, etc.) may be necessary when evaluating a patient with possible respiratory tract infection. The FilmArray RP2.1 assay has FDA clearance for testing of [employer] swabs. The performance characteristics of this assay have been determined by [facility]. Current interpretive data was last revised on 2021. URINALYSIS AND REFLEX TO MICROSCOPIC AND CULTURE LIPASE Lipase 33 SEPSIS LACTATE WITH REFLEX Sepsis Lactate 1.5 DIFFERENTIAL AUTO Neutrophil abs 3.6 Imm gran abs 0.0 Lymphocyte abs 1.8 Monocyte abs 0.4 Eosinophil abs 0.1 Basophil abs 0.0 Neutrophil pct 61.4 Imm gran pct 0.2 Lymphocyte pct 30.1 Monocyte pct 6.3 Eosinophil pct 1.5 Basophil pct 0.[address] Abdomen Pelvis W Contrast Final Result XR Chest 1 Vw Portable Final Result Narrative & Impression ?? EXAM DESCRIPTION: CT ABDOMEN PELVIS W CONTRAST ?? REASON FOR STUDY: GI bleed, r/o obstruction, diverticulitits, history of 51 y.o. male presenting to the ED c/o lower abdominal pain with diarrhea and dark colored stool for the past 2 days. He reports the pain in his abdomen is 8/10. He reports history of adhesions and diverticulitis, and he is concerned for bowel obstruction today. He reports that he has pain in his right lower quadrant which radiates into his right testicle. He denies testicular swelling. Last time he ate was yesterday. Patient drink Gatorade and water this morning. ?? TECHNIQUE: CT scan of the abdomen and pelvis performed with intravenous and without oral contrast using helical scanning technique with dynamic intravenous contrast injection. Reconstructed coronal and sagittal MPR images reviewed. All images stored on PACS. Automated exposure control was used as a dose optimization technique for this examination. ?? CONTRAST TYPE/DOSE: 100mL of IOVERSOL 350 injected via intravenous ? COMPARISON: October 08, 2020 ? FINDINGS: ?? LOWER CHEST: 2 adjacent 5 mm noncalcified nodules within the left major fissure are unchanged and probably benign lymph nodes. Unchanged calcified granuloma posteromedial right lower lobe. Minimal right basilar scarring. No significant pulmonary abnormalities. No effusion. Eventration of the right hemidiaphragm. ?? LIVER: Normal size. Mild diffuse fatty infiltration. No identified cystic or solid masses. ?? GALLBLADDER: Surgically absent. ?? BILE DUCTS: No intrahepatic or extrahepatic ductal dilatation. ?? SPLEEN: Normal size. No focal lesions. ?? PANCREAS: No identified cystic or solid masses. No significant calcifications. No adjacent inflammation or peripancreatic fluid collections. Pancreatic duct not dilated. ?? ADRENALS: Normal. ?? KIDNEYS/URINARY TRACT: No identified significant cystic or solid masses. No visualized stones. No hydronephrosis or hydroureter. Symmetric enhancement. Mild generalized thickening of the urinary bladder wall, unchanged from prior study. ?? GI: No dilated bowel loops. No obvious wall thickening. Appendix surgically absent. No significant diverticular disease. ?? PERITONEUM: No ascites or free air. ?? RETROPERITONEUM: No mass or adenopathy. ?? REPRODUCTIVE: No significant abnormality. ?? VASCULATURE: No abdominal aortic aneurysm. ?? MUSCULOSKELETAL: No significant abnormality. ?? OTHER: Very small fat containing umbilical hernia. Postoperative changes in the left groin. ? IMPRESSION: ?? 1. Mild diffuse fatty infiltration of the liver. ?? 2. Prior cholecystectomy. No biliary dilatation. ?? 3. Mild generalized thickening of urinary bladder wall, unchanged. ?? 4. No dilated bowel. No free intraperitoneal fluid or free intraperitoneal air. Appendix surgically absent. ?? 5. Very small fat containing umbilical hernia and postoperative changes in the left groin, stable. ? THIS IS AN ELECTRONICALLY VERIFIED FINAL REPORT 06/17/2021 2:35 PM - Electronically signed by Brodie Thomas M.D. ?? RB: CIPRIANO ?? Report ID: [id number] Reading Location: [id number] Narrative & Impression ?? EXAM DESCRIPTION: XR CHEST 1 VIEW ?? REASON FOR STUDY: cough Pt states cough for 2 days, covid evaluation ?? TECHNIQUE: Frontal radiographic view of the chest acquired. ?? COMPARISON: Most recently 08/23/2020. ?? FINDINGS: ?? LUNGS/PLEURA: Elevated right hemidiaphragm. No consolidation or pleural effusion is identified. There is no pneumothorax. ?? HEART/MEDIASTINUM: Normal heart size. No pulmonary vascular congestion. ?? HARDWARE/LINES/TUBES: None. ?? BONES: Surgical anchors within the left humeral head. ?? OTHER: No other significant finding. ? IMPRESSION: ?? 1. Elevated right hemidiaphragm. No acute cardiopulmonary process is identified. ? THIS IS AN ELECTRONICALLY VERIFIED FINAL REPORT 06/17/2021 12:45 PM - Electronically signed by Kaleb Marino D.O. ?? : ?? Report ID: [id number] Reading Location: [id number] BP 137/89 (BP Location: Right arm, Patient Position: Sitting) Pulse 78 Temp 36.6 ??C (97.9 ??F)(Temporal) Resp 18 Ht 180.3 cm (5' 11 ) Wt 94.7 kg (208 lb 12.4 oz) SpO2 97% BMI 29.12 kg/m?? [facility] ED Course as of Jun 18 853 Time: 06/17 134 Comment: Antiemetic added to plan of care By: Carleen Conroy NP Time: 06/17 1420 Comment: Pain medication added to plan of care By: Carleen Conroy NP Time: 06/17 1812 Comment: I followed up with patient in regards to results from CT and blood work. Patient is in no acute distress he is up ambulating to the bathroom. Patient has been given anti nausea medication and pain medication while in the ER today. There are no acute findings on CT, COVID-19 result is not resulted at this time and patient reports he will check the my chart for results upon arriving home. Fatty liver discussed with patient has reported and CT results. Close follow-up with primary care for this cough with no acute findings on XR today. Clear liquid diet advised then advance to a bland diet. Patient states understanding to plan By: Carleen Conroy NP This examination was transcribed using the [employer] voice recognition system without human transport engineer. In an effort to expedite patient care, this report has not been adjusted for typographical, grammatical, and syntax by a trained medical intern. Clinical Impression: Abdominal pain Fatty liver Cough Carleen Conroy NP 06/18/21 0853 Cosigned by Yoanna Graf MD at 06/22/2021 3:10 AM CDT documented in this encounter Plan of Treatment Scheduled Orders Name Type Priority Associated Diagnoses Orde r Schedule Urinalysis reflex to microscopic and culture Urine Microbiology STAT STAT for 1 Occurrences starting 06/17/2021 until 06/17/2021 documented as of this encounter Procedures Procedure Name Priority Date/Time Associated Diagnosis Comments CT ABDOMEN PELVIS W CONTRAST ED 06/17/2021 2:12 PM CDT RESPIRATORY PATHOGEN PANEL Routine 06/17/2021 12:58 PM CDT XR CHEST 1 VIEW ED 06/17/2021 12:35 PM CDT SEPSIS LACTATE WITH REFLEX STAT 06/17/2021 12:02 PM CDT EGFR STAT 06/17/2021 11:58 AM CDT DIFFERENTIAL AUTO STAT 06/17/2021 11: 58 AM CDT CBC WITH AUTO DIFFERENTIAL STAT 06/17/2021 11:58 AM CDT LIPASE STAT 06/17/2021 11:58 AM CDT COMPREHENSIVE METABOLIC PANEL STAT 06/17/2021 11:58 AM CDT documented in this encounter Results * CT Abdomen Pelvis W Contrast (06/17/2021 2:12 PM CDT) Anatomical Region Laterality Modality Body N/A Computed Tomogra phy 06/17/2021 2:13 PM CDT Narrative 06/17/2021 2:35 PM CDT EXAM DESCRIPTION: ?? CT ABDOMEN PELVIS W CONTRAST REASON FOR STUDY: ?? GI bleed, r/o obstruction, diverticulitits, history of ??51 y.o. male ??presenting to the ED c/o lower abdominal pain with diarrhea and dark colored stool for the past 2 days. ??He reports the pain in his abdomen is 8/10. ??He reports history of adhesions and diverticulitis, and he is concerned for bowel obstruction today. ??He reports that he has pain in his right lower quadrant which radiates into his right testicle. ??He denies testicular swelling. ?Last time he ate was yesterday. ?? Patient drink Gatorade and water this morning. ?? TECHNIQUE: ??CT scan of the abdomen and pelvis performed with intravenous and ?? without oral contrast using helical scanning technique with dynamic intravenous contrast injection. Reconstructed coronal and sagittal MPR images reviewed. All images stored on PACS. Automated exposure control was used as a dose optimization technique for this examination. CONTRAST TYPE/DOSE: ?? 100mL of IOVERSOL 350 injected via ??intravenous COMPARISON: ?? October 08, 2020 FINDINGS: LOWER CHEST: 2 adjacent 5 mm noncalcified nodules within the left major fissure are unchanged and probably benign lymph nodes. ??Unchanged calcified granuloma posteromedial right lower lobe. ??Minimal right basilar scarring. ??No significant pulmonary abnormalities. No effusion. ??Eventration of the right hemidiaphragm. LIVER: ??Normal size. ??Mild diffuse fatty infiltration. ??No identified cystic or solid masses. GALLBLADDER: ??Surgically absent. BILE DUCTS: ??No intrahepatic or extrahepatic ductal dilatation. SPLEEN: ??Normal size. ??No focal lesions. PANCREAS: ??No identified cystic or solid masses. No significant calcifications. No adjacent inflammation or peripancreatic fluid collections. Pancreatic duct not dilated. ADRENALS: ??Normal. KIDNEYS/URINARY TRACT: ??No identified significant cystic or solid masses. No visualized stones. No hydronephrosis or hydroureter. Symmetric enhancement. ?? Mild generalized thickening of the urinary bladder wall, unchanged from prior study. GI: ??No dilated bowel loops. No obvious wall thickening. ??Appendix surgically absent. ??No significant diverticular disease. PERITONEUM: ??No ascites or free air. RETROPERITONEUM: ??No mass or adenopathy. REPRODUCTIVE: ??No significant abnormality. VASCULATURE: ??No abdominal aortic aneurysm. MUSCULOSKELETAL: ??No significant abnormality. OTHER: ??Very small fat containing umbilical hernia. ??Postoperative changes in the left groin. IMPRESSION: ?? 1. ??Mild diffuse fatty infiltration of the liver. 2. ??Prior cholecystectomy. ??No biliary dilatation. 3. ??Mild generalized thickening of urinary bladder wall, unchanged. 4. ??No dilated bowel. ??No free intraperitoneal fluid or free intraperitoneal air. ??Appendix surgically absent. 5. ??Very small fat containing umbilical hernia and postoperative changes in the left groin, stable. THIS IS AN ELECTRONICALLY VERIFIED FINAL REPORT 06/17/2021 2:35 PM - Electronically signed by Brodie Thomas M.D. RB: CIPRIANO D: ??06/17/2021 2:35 PM T: ??06/17/2021 2:35 PM Report ID: [id number] Reading Location: ??[id number] Procedure Note Brodie Thomas MD - 06/17/2021 EXAM DESCRIPTION: CT ABDOMEN PELVIS W CONTRAST REASON FOR STUDY: GI bleed, r/o obstruction, diverticulitits, history of51 y.o. male presenting to the ED c/o lower abdominal pain with diarrhea and dark colored stool for the past 2 days. He reports the pain in hisabdomen is 8/10. He reports history of adhesions and diverticulitis, and he isconcerned for bowel obstruction today. He reports that he has pain in his rightlower quadrant which radiates into his right testicle. He denies testicular swelling. Last time he ate was yesterday. Patient drink Gatorade and water this morning. TECHNIQUE: CT scan of the abdomen and pelvis performed with intravenousand without oral contrast using helical scanning technique with dynamic intravenous contrast injection. Reconstructed coronal and sagittal MPRimages reviewed. All images stored on PACS. Automated exposure control was used as a dose optimization technique forthis examination. CONTRAST TYPE/DOSE: 100mL of IOVERSOL 350 injected via intravenous COMPARISON: October 08, 2020 FINDINGS: LOWER CHEST: 2 adjacent 5 mm noncalcified nodules within the left major fissure are unchanged and probably benign lymph nodes. Unchangedcalcified granuloma posteromedial right lower lobe. Minimal right basilar scarring.No significant pulmonary abnormalities. No effusion. Eventration of theright hemidiaphragm. LIVER: Normal size. Mild diffuse fatty infiltration. No identifiedcystic or solid masses. GALLBLADDER: Surgically absent. BILE DUCTS: No intrahepatic or extrahepatic ductal dilatation. SPLEEN: Normal size. No focal lesions. PANCREAS: No identified cystic or solid masses. No significant calcifications. No adjacent inflammation or peripancreatic fluidcollections. Pancreatic duct not dilated. ADRENALS: Normal. KIDNEYS/URINARY TRACT: No identified significant cystic or solid masses.No visualized stones. No hydronephrosis or hydroureter. Symmetricenhancement. Mild generalized thickening of the urinary bladder wall, unchanged fromprior study. GI: No dilated bowel loops. No obvious wall thickening. Appendixsurgically absent. No significant diverticular disease. PERITONEUM: No ascites or free air. RETROPERITONEUM: No mass or adenopathy. REPRODUCTIVE: No significant abnormality. VASCULATURE: No abdominal aortic aneurysm. MUSCULOSKELETAL: No significant abnormality. OTHER: Very small fat containing umbilical hernia. Postoperative changesin the left groin. IMPRESSION: 1. Mild diffuse fatty infiltration of the liver. 2. Prior cholecystectomy. No biliary dilatation. 3. Mild generalized thickening of urinary bladder wall, unchanged. 4. No dilated bowel. No free intraperitoneal fluid or freeintraperitoneal air. Appendix surgically absent. 5. Very small fat containing umbilical hernia and postoperative changesin the left groin, stable. THIS IS AN ELECTRONICALLY VERIFIED FINAL REPORT 06/17/2021 2:35 PM - Electronically signed by Brodie Thomas M.D. RB: CIPRIANO Report ID: [id number] Reading Location: [place] [address] Carleen Conroy [employer] IMG CT PROCEDURES Final Resu lt * Respiratory pathogen panel Nasopharyngeal (06/17/2021 12:58 PM CDT) Influenza A RNA Not Detected Not Detected TERESA Comment:Testing performed by : [facility], [address] [place]., [address] Influenza B RNA Not Detected Not Detected TERESA Comment:Testing performed by : [facility], [address] [place] [address] RSV RNA Not Detected Not Detected TERESA Comment:Testing performed by : [facility], [address] [place]., [address] COVID-19 RNA Not Detected Not Detected TERESA Comment:Testing performed by : [facility], [address] [place]., [address] Coronavirus 229E RNA Not Detected Not Detected TERESA Comment:Testing performed by : [facility], [address] [place]., [address] Coronavirus HKU1 RNA Not Detected Not Detected TERESA Comment:Testing performed by : [facility], [address] [place]., [address] Coronavirus NL63 RNA Not Detected Not Detected CERNER Comment:Testing performed by : [facility], [address] [facility], [address] Coronavirus OC43 RNA Not Detected Not Detected CERNER Comment:Testing performed by : [facility], [address] [facility] [place], [address] Adenovirus DNA Not Detected Not Detected CERNER Comment:Testing performed by : [facility], [address] [facility] [place], [address] Metapneumovirus RNA Not Detected Not Detected CERNER Comment:Testing performed by : [facility], [address] [facility] [place], [address] Rhinovirus/Enterov irus RNA Not Detected Not Detected CERNER Comment:Testing performed by : [facility], [address] [facility] [place], [address] Parainfluenza 1 RNA Not Detected Not Detected CERNER Comment:Testing performed by : [facility], [address] [place]., [address] Parainfluenza 2 RNA Not Detected Not Detected CERNER Comment:Testing performed by : [facility], [address] [place]., [address] Parainfluenza 3 RNA Not Detected Not Detected CERNER Comment:Testing performed by : [facility], [address] [place]., [address] Parainfluenza 4 RNA Not Detected Not Detected CERNER Comment:Testing performed by : [facility], [address] [facility], [address] B. pertussis DNA Not Detected Not Detected CERLEEANNE Comment:Testing performed by : [facility], [address] [place]., [address] B. parapertussis DNA Not Detected Not Detected CERNER Comment:Testing performed by : [facility], [address] [place]., [address] C. pneumoniae DNA Not Detected Not Detected TERESA RAYMUNDO Comment:Testing performed by : [facility], [address] [place]., [address] M. pneumoniae DNA Not Detected Not Detected TERESA RAYMUNDO Comment:Testing performed by : [facility], [address] [place] [address] Nasopharyngeal 06/17/2021 12 :58 PM CDT 06/17/2021 4:49 PM CDT Narrative TERESA - 06/17/2021 6:41 PM CDT Is the Patient experiencing symptoms consistent with COVID?->Yes Date of Symptom Onset->06/14/21 Reason for testing?->Symptomatic (not immunocompromised) Is the patient hospitalized?->No Is the patient admitted to an ICU?->No Does the patient currently work in a healthcare facility with direct patient contact?->No Is the patient a resident of a congregate care or living setting?->No Is the patient ?->No Known exposure to confirmed or suspected COVID-19 case?->No Surveillance testing for transplant patient?->No ??Interpretive Data The [employer] FilmArray Respiratory Panel (RP2.1) assay is a multiplexed real-time PCR based nucleic acid test capable of simultaneous qualitative detection and identification of multiple respiratory viral and bacterial nucleic acids, including SARS Coronavirus 2 (the causative agent of COVID-19). The following bacteria, viruses and virus subtypes can be identified using the FilmArray RP2.1 assay: Bordetella pertussis, Bordetella parapertussis, Chlamydia pneumoniae, Mycoplasma pneumoniae, Adenovirus, SARS Coronavirus 2, seasonal coronaviruses (Coronavirus HKU1, Coronavirus NL63, Coronavirus 229E, and Coronavirus OC43), Influenza A, Influenza A subtype H1, Influenza A subtype H3, Influenza A subtype 2009 H1, Influenza B, Metapneumovirus, Parainfluenza 1, Parainfluenza 2, Parainfluenza 3, Parainfluenza 4, RSV, Rhinovirus/Enterovirus. Due to the genetic similarity between human Rhinovirus and Enterovirus, the FilmArray RP2.1 assay cannot reliably differentiate them. Coronavirus OC43 may cross-react with some isolates of Coronavirus HKU1. ??A dual positive result may be due to cross-reactivity or may indicate a co-infection. The detection and identification of specific viral and bacterial nucleic acids from individuals exhibiting signs and symptoms of a respiratory infection aids in the diagnosis of respiratory infection if used in conjunction with other clinical and epidemiological information. ??The results of this test should not be used as the sole basis for diagnosis, treatment, or other management decisions. ??Negative results in the setting of a respiratory illness may be due to infection with pathogens that are not detected by this test. ??Positive results do not rule out infection/co-infection with other organisms. ??The agent(s) detected by the FilmArray RP2.1 may not be the definite cause of disease. ??Additional testing (lab, imaging, etc.) may be necessary when evaluating a patient with possible respiratory tract infection. The FilmArray RP2.1 assay has FDA clearance for testing of [employer] swabs. ??The performance characteristics of this assay have been determined by [facility]. Current interpretive data was last revised on 2021. ??Interpretive Data The [employer] FilmArray Respiratory Panel (RP2.1) assay is a multiplexed real-time PCR based nucleic acid test capable of simultaneous qualitative detection and identification of multiple respiratory viral and bacterial nucleic acids, including SARS Coronavirus 2 (the causative agent of COVID-19). The following bacteria, viruses and virus subtypes can be identified using the FilmArray RP2.1 assay: Bordetella pertussis, Bordetella parapertussis, Chlamydia pneumoniae, Mycoplasma pneumoniae, Adenovirus, SARS Coronavirus 2, seasonal coronaviruses (Coronavirus HKU1, Coronavirus NL63, Coronavirus 229E, and Coronavirus OC43), Influenza A, Influenza A subtype H1, Influenza A subtype H3, Influenza A subtype 2009 H1, Influenza B, Metapneumovirus, Parainfluenza 1, Parainfluenza 2, Parainfluenza 3, Parainfluenza 4, RSV, Rhinovirus/Enterovirus. Due to the genetic similarity between human Rhinovirus and Enterovirus, the FilmArray RP2.1 assay cannot reliably differentiate them. Coronavirus OC43 may cross-react with some isolates of Coronavirus HKU1. ??A dual positive result may be due to cross-reactivity or may indicate a co-infection. The detection and identification of specific viral and bacterial nucleic acids from individuals exhibiting signs and symptoms of a respiratory infection aids in the diagnosis of respiratory infection if used in conjunction with other clinical and epidemiological information. ??The results of this test should not be used as the sole basis for diagnosis, treatment, or other management decisions. ??Negative results in the setting of a respiratory illness may be due to infection with pathogens that are not detected by this test. ??Positive results do not rule out infection/co-infection with other organisms. ??The agent(s) detected by the FilmArray RP2.1 may not be the definite cause of disease. ??Additional testing (lab, imaging, etc.) may be necessary when evaluating a patient with possible respiratory tract infection. The FilmArray RP2.1 assay has FDA clearance for testing of [employer] swabs. ??The performance characteristics of this assay have been determined by [facility]. Current interpretive data was last revised on 2021. Carleen Conroy [employer] [facility] LAB MICROBIOLOGY - GENERAL O RDERABLES Final Result TERESA [address] [facility] Department [place] [address] * XR Chest 1 Vw Portable (06/17/2021 12:35 PM CDT) Anatomical Region Laterality Modality Body, Chest N/A Computed Radiogr aphy 06/17/2021 12:4 4 PM CDT Narrative 06/17/2021 12:45 PM CDT EXAM DESCRIPTION: ?? XR CHEST 1 VIEW REASON FOR STUDY: ?? cough ??Pt states cough for 2 days, covid evaluation ?? TECHNIQUE: ?? Frontal radiographic view of the chest acquired. COMPARISON: ?? Most recently 08/23/2020. FINDINGS: LUNGS/PLEURA: ??Elevated right hemidiaphragm. ??No consolidation or pleural effusion is identified. ??There is no pneumothorax. HEART/MEDIASTINUM: ??Normal heart size. ??No pulmonary vascular congestion. HARDWARE/LINES/TUBES: ??None. BONES: ??Surgical anchors within the left humeral head. OTHER: ??No other significant finding. IMPRESSION: ?? 1. ??Elevated right hemidiaphragm. ??No acute cardiopulmonary process is identified. THIS IS AN ELECTRONICALLY VERIFIED FINAL REPORT 06/17/2021 12:45 PM - Electronically signed by Kaleb Marino D.O. : D: ??06/17/2021 12:45 PM T: ??06/17/2021 12:45 PM Report ID: [id number] Reading Location: ??[id number] Procedure Note Kaleb Marino, DO - 06/17/2021 EXAM DESCRIPTION: XR CHEST 1 VIEW REASON FOR STUDY: cough Pt states cough for 2 days, covid evaluation TECHNIQUE: Frontal radiographic view of the chest acquired. COMPARISON: Most recently 08/23/2020. FINDINGS: LUNGS/PLEURA: Elevated right hemidiaphragm. No consolidation or pleural effusion is identified. There is no pneumothorax. HEART/MEDIASTINUM: Normal heart size. No pulmonary vascularcongestion. HARDWARE/LINES/TUBES: None. BONES: Surgical anchors within the left humeral head. OTHER: No other significant finding. IMPRESSION: 1. Elevated right hemidiaphragm. No acute cardiopulmonary process is identified. THIS IS AN ELECTRONICALLY VERIFIED FINAL REPORT 06/17/2021 12:45 PM - Electronically signed by Kaleb Marino D.O. : Report ID: [id number] Reading Location: [id number] Carleen Conroy [employer] IMG XR PROCEDURES Final Resu lt * Sepsis Lactate w/ Reflex (06/17/2021 12:02 PM CDT) Sepsis Lactate 1.5 0.7 - 2.0 mmol/L TERESA RAYMUNDO Comment:Testing performed by : [facility], [address] [place] [address]., [address] Blood 06/17/2021 12:0 2 PM CDT 06/17/2021 12:08 PM CDT us Carleen Conroy [employer] LAB BLOOD ORDERABLES Final R esult Performing Organization Address City/[facility]/ZIP Co de Phone Number TERESA [address] [facility] [place] [address] * eGFR (06/17/2021 11:58 AM CDT) eGFR 98 mL/min/1.7 3 m2 RANCHOLEEANNE Comment: Interpretive Data Reference Interval Normal ?>/= 90 mL/min/1.73m2 Mildly decreased* ? 60 - 89 mL/min/1.73m2 Mildly to moderately decreased ?45 - 59 mL/min/1.73m2 Moderately to severely decreased ??30 - 44 mL/min/1.73m2 Severely decreased ?15 - 29 mL/min/1.73m2 Kidney Failure ?< 15 ??mL/min/1.73m2 *Relative to young adult level Estimated glomerular filtration rate is determined by the CKD-EPI equation recommended by the National Kidney Foundation (KDIGO 2012 Clinical Practice Guideline for the Evaluation and Management of Chronic Kidney Disease. Kidney Intnl Suppl Aug 2012;3:1). The CKD-EPI equation should not be used for patients with unstable renal function and has not been validated in children and those over 70. Current interpretive data was last reviewed 2020 Testing performed by: [facility], [address] [place] [address]., [address] Blood 06/17/2021 11:5 8 AM CDT 06/17/2021 12:08 PM CDT Carleen Conroy [employer] LAB BLOOD ORDERABLES Final R esult Performing Organization Address City/[facility]/ZIP Co de Phone Number TERESA [address] [facility] [place] [address] * Differential, auto (06/17/2021 11:58 AM CDT) Neutrophil abs 3.6 1.7 - 6.5 K/cumm TERESA Comment:Testing performed by : [address] [address] Imm gran abs 0.0 0.0 - 0.1 K/cumm TERESA Comment:Testing performed by : [address] [address] Lymphocyte abs 1.8 0.8 - 3.3 K/cumm TERESA Comment:Testing performed by : [address] [address] Monocyte abs 0.4 0.2 - 0.8 K/cumm TERESA Comment:Testing performed by : [address] [address] Eosinophil abs 0.1 0.0 - 0.5 K/cumm TERESA Comment:Testing performed by : [address] [address] Basophil abs 0.0 0.0 - 0.1 K/cumm TERESA Comment:Testing performed by : [address] [address] Neutrophil pct 61.4 % [facility] Comment: Interpretive Data Percent cell count reference ranges are not reported, since discordance with absolute values may lead to misinterpretation of CBC data. Current Interpretive Data was last revised on 2017. Testing performed by: [address] [address] Imm gran pct 0.2 % [facility] Comment: Interpretive Data Percent cell count reference ranges are not reported, since discordance with absolute values may lead to misinterpretation of CBC data. Current Interpretive Data was last revised on 2017. Testing performed by: [address] [address] Lymphocyte pct 30.1 % [facility] Comment: Interpretive Data Percent cell count reference ranges are not reported, since discordance with absolute values may lead to misinterpretation of CBC data. Current Interpretive Data was last revised on 2017. Testing performed by: [address] [place] [address] Monocyte pct 6.3 % TERESA Comment: Interpretive Data Percent cell count reference ranges are not reported, since discordance with absolute values may lead to misinterpretation of CBC data. Current Interpretive Data was last revised on 2017. Testing performed by: [address] [address] Eosinophil pct 1.5 % TERESA Comment: Interpretive Data Percent cell count reference ranges are not reported, since discordance with absolute values may lead to misinterpretation of CBC data. Current Interpretive Data was last revised on 2017. Testing performed by: [address] [address] Basophil pct 0.5 % TERESA Comment: Interpretive Data Percent cell count reference ranges are not reported, since discordance with absolute values may lead to misinterpretation of CBC data. Current Interpretive Data was last revised on 2017. Testing performed by: [address] [address] Blood 06/17/2021 11:5 8 AM CDT 06/17/2021 12:08 PM CDT Carleen Conroy [employer] LAB BLOOD ORDERABLES Final R esult TERESA [address] [facility] Department of Laboratories [place], [place] [id number] * (ABNORMAL) CBC with auto differential (06/17/2021 11:58 AM CDT) WBC 5.9 3.8 - 9.9 K/cumm TERESA RAYMUNDO Comment:Testing performed by : [address] [address] Hgb 15.2 13.0 - 17.5 g/dL TERESA RAYMUNDO Comment:Testing performed by : [address] [address] Hct 46.1 38.9 - 50.3 % TERESA RAYMUNDO Comment:Testing performed by : [address] [address] Plt 257 150 - 400 K/cumm TERESA Comment:Testing performed by : [address] [address] MPV 9.3 9.1 - 12.3 fL TERESA Comment:Testing performed by : [address] [address] RBC 5.82(H) 4.30 - 5.80 M/cumm TERESA Comment:Testing performed by : [address], [address] MCV 79.2(L) 81.3 - 96.4 fL TERESA Comment:Testing performed by : [address], [address] MCH 26.1(L) 27.1 - 33.3 pg TERESA Comment:Testing performed by : [address], [address] MCHC 33.0 32.3 - 35.7 g/dL TERESA Comment:Testing performed by : [address], [address] RDW CV 14.2 11.1 - 14.9 % TERESA Comment:Testing performed by : [address], [address] RDW SD 40.4 35.7 - 48.1 fL TERESA Comment:Testing performed by : [address], [address] NRBC abs 0.00 0.00 - 0.01 K/cumm TERESA Comment:Testing performed by : [address], [address] Blood 06/17/2021 11:5 8 AM CDT 06/17/2021 12:08 PM CDT Carleen Conroy [employer] LAB BLOOD ORDERABLES Final R esult TERESA [address] [facility] Department [place] [address] * (ABNORMAL) Comprehensive metabolic panel (06/17/2021 11:58 AM CDT) Sodium 136 135 - 145 mmol/L [facility] Comment:Testing performed by : [address] [address] Potassium, pl 4.7 3.3 - 4.9 mmol/L [facility] Comment: HEMOLYZED: Hemolysis interferes with the above test. Testing performed by: [address] [address] Chloride 97 97 - 110 mmol/L [facility] Comment:Testing performed by : [address], [place]., [address] CO2 27 22 - 32 mmol/L [facility] Comment:Testing performed by : [address] [address] Anion gap 12 2 - 15 mmol/L [facility] Comment:Testing performed by : [address] [address] BUN 12 8 - 25 mg/dL [facility] Comment:Testing performed by : [address] [address] Creatinine 0.90 0.80 - 1.30 mg/dL [facility] Comment:Testing performed by : [address] [address] Glucose 214(H) 70 - 199 mg/dL [facility] Comment: Interpretive Data Fasting glucose >/= 126 mg/dl is diagnostic for diabetes. ?? Fasting is defined as no caloric intake for at least 8 hours. Fasting glucose between 100 mg/dl to 125 mg/dl is diagnostic of prediabetes. In a patient with classic symptoms of hyperglycemia or hyperglycemic crisis, a random glucose >/= 200 mg/dl is diagnostic for diabetes. In the absence of unequivocal hyperglycemia, results should be confirmed by repeat testing. The classification and Diagnosis of Diabetes Diabetes Care 2017;40 (Suppl. 1):S11. Current interpretive data was last revised 2017. Testing performed by: [address] [address] Calcium 9.6 8.5 - 10.3 mg/dL [facility] Comment:Testing performed by : [address] [address] Bilirubin, total 0.3 0.1 - 1.2 mg/dL TERESA Comment:Testing performed by : [address] [address] Protein, pl 7.9 6.5 - 8.5 g/dL TERESA Comment:Testing performed by : [address] [address] Albumin 4.8 3.5 - 5.0 g/dL TERESA Comment:Testing performed by : [address] [address] Alk phos 90 40 - 130 Units/L TERESA Comment:Testing performed by : [address] [address] ALT 32 7 - 55 Units/L TERESA Comment: HEMOLYZED: Hemolysis interferes with the above test. Testing performed by: [address] [address] AST 26 10 - 50 Units/L TERESA Comment: HEMOLYZED: Hemolysis interferes with the above test. Testing performed by: [address] [address] Blood 06/17/2021 11:5 8 AM CDT 06/17/2021 12:08 PM CDT Carleen Conroy [employer] LAB BLOOD ORDERABLES Final R ult Performing Organization Address [facility] Co de Phone Number [address] Department [place] [address] * Lipase (06/17/2021 11:58 AM CDT) Lipase 33 10 - 99 Units/L TERESA Comment:Testing performed by : [address] [address] Blood 06/17/2021 11:5 8 AM CDT 06/17/2021 12:08 PM CDT Carleen Conroy [employer] LAB BLOOD ORDERABLES Final R esult [place] [id number] [facility] Department [place] [address] documented in this encounter Visit Diagnoses Diagnosis Abdominal pain- Primary Abdominal pain, unspecified site Fatty liver Other chronic nonalcoholic liver disease Cough documented in this encounter Administered Medications Inactive Administered Medications - up to 3 most recent administrations Medication Order MAR Action Action Date Dose Rate Site ioversoL (OPTIRAY 350) syringe syringe 100 mL 100 mL, intravenous, Once in imaging, contrast, Starting on Thu06/17/21 at 1401, For 1 dose Contrast Given 06/17/2021 2:02 PM CDT 100 mL Left Forearm morphine injection 2 mg 2 mg, intravenous, Administer over 4 Minutes, Once, On Thu06/17/21 at 1419, For 1 dose, Indications: PainIndications:Pain Given 06/17/2021 2:22 PM CDT 2 mg ondansetron (ZOFRAN) injection 4 mg 4 mg, intravenous, Administer over 2 Minutes, Once, On Thu06/17/21 at 1348, For 1 dose, Indications: Nausea and VomitingIndications:Naus ea and Vomiting Given 06/17/2021 1:49 PM CDT 4 mg sodium chloride 0.9% bolus 1,000 mL 1,000 mL, intravenous, Once, On Thu06/17/21 at 1155, For 1 dose New Bag 06/17/2021 12:59 PM CDT 1,000 mL sodium chloride 0.9% flush 125 mL 125 mL, intravenous, Once in imaging, line care, Starting on Thu06/17/21 at 1401, For 1 dose Given 06/17/2021 2:01 PM CDT 125 mL Left Forearm documented in this encounter Discontinued Medications Medication Sig Discontinue Reason Start Date End Da te HYDROcodone-acetaminophe n (NORCO) 5-325 mg per tabletIndications:Pain Take 1 tablet by mouth every 6 (six) hours as needed for pain Reorder 06/17/2021 06/17/2021 documented as of this encounter Active and Recently Administered Medications Times are shown in CDT. Scheduled Medication Order 06/15/2021 06/16/2021 06/17/2021 morphine injection 2 mg (COMPLETED) 2 mg, intravenous, Administer over 4 Minutes, Once, On Thu06/17/21 at 1419, For 1 dose, Indications: Pain 1422 (Given - Provid er: David Pugh RN) ondansetron (ZOFRAN) injection 4 mg (COMPLETED) 4 mg, intravenous, Administer over 2 Minutes, Once, On Thu06/17/21 at 1348, For 1 dose, Indications: Nausea and Vomiting 1349 (Given - Provid er: Jennifer Clarke, YENNY) sodium chloride 0.9% bolus 1,000 mL (COMPLETED) 1,000 mL, intravenous, Once, On Thu06/17/21 at 1155, For 1 dose 1259 (New Bag - Prov ider: David Pugh RN)1350 (Stopped - Provider: Jennifer Clarke RN) PRN Medication Order 06/15/2021 06/16/2021 06/17/2021 ioversoL (OPTIRAY 350) syringe syringe 100 mL (COMPLETED) 100 mL, intravenous, Once in imaging, contrast, Starting on Thu06/17/21 at 1401, For 1 dose 1402 (Contrast Given - Provider: Ashlyn Pappas RT) sodium chloride 0.9% flush 125 mL (COMPLETED) 125 mL, intravenous, Once in imaging, line care, Starting on Thu06/17/21 at 1401, For 1 dose 1401 (Given - Provid er: RT Remy) documented in this encounter Orders IV Count Last Ordered Date First Orde red Date SALINE LOCK IV 1 06/17/2021 documented in this encounter Additional Health Concerns Infection Onset Date Last Indicated Resolved Time COVID: Suspected 06/17/2021 06/17/2021 06/17/2021 6:42 PM CDT documented as of this encounter 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
--- OUTSIDE RECORDS SUMMARY | 2024-09-03 01:01 | XMS_ITS | Encounter Summary ---
Author Organization [facility] Address [address] [address] Care Team Providers Care Pipe Line Repairer Name Role Phone Monique Garcia MD Unavailable [phone] Monique Garcia MD Unavailable [phone] Nathan Martinez MD Primary Care Provider [phone] Reason for Visit * Reason Comments Follow-up 3 months ADD DM No n ew complaints Encounter Details Date Type Department Care Team (Late st Contact Info) Description 02/11/2021 10:00 AM CDT Office Visit [facility] [address] [place] [address] Nathan Martinez MD [address] [place] [address] Type 2 diabetes mellitus with hyperglycemia, without long-term current use of insulin (CMS/HCC) (Primary Dx); Attention deficit disorder (ADD) without hyperactivity; Major depression in remission (CMS/HCC); Psychophysiologic insomnia Social History Tobacco Use Types Packs/Day Years Used Date Smoking Tobacco: Never Smokeless Tobacco: Current Chew Comments:advised to quit 1 c an of chew per week since 1994 Alcohol Use Standard Drinks/Week Comments Not Currently 0 (1 standard drink = 0.6 oz pur e alcohol) PHQ-2 Answer Date Recorded PHQ-2 Total Score (If total score is 3 or more points, staff should administer the PHQ-9) 0 02/11/2021 Sex and Gender Information Value Date Recorded Sex Assigned at Not on file Legal Sex Male 2:58 AM CDT Gender Identity Male 03/10/2022 6:57 PM CDT Sexual Orientation Not on file documented as of this encounter Last Filed Vital Signs Vital Sign Reading Time Taken Comments Blood Pressure 120/80 02/11/2021 10:18 AM CDT Pulse 94 02/11/2021 10:18 AM CDT Temperature 36.2 ??C (97.2 ??F) 02/11/2021 10:18 AM C DT Respiratory Rate 16 02/11/2021 10:18 AM CDT Oxygen Saturation 98% 02/11/2021 10:18 AM CDT Inhaled Oxygen Concentration - - Weight 92.7 kg (204 lb 4.8 oz) 02/11/2021 10:18 AM CDT Height 180.3 cm (5' 11 ) 02/11/2021 10:18 AM CDT Body Mass Index 28.49 02/11/2021 10:18 AM CDT documented in this encounter Ordered Prescriptions Prescription Sig Dispense Quantity Refills Last Filled Start Date End Date metFORMIN (GLUCOPHAGE) 1,000 mg tablet Take 1 tablet (1,000 mg total) by mouth 2 (two) times a day with meals 180 tablet 3 02/11/2021 09/02/2021 modafiniL (PROVIGIL) 100 mg tablet Take 1 tablet (100 mg total) by mouth daily 30 tablet 3 02/11/2021 08/05/2021 documented in this encounter Progress Notes * Ntahan Martinez MD - 02/11/2021 10:00 AM CDT Subjective/Objective Patient ID: Erich Allen is a 50 y.o. male. Chief Complaint Follow-up (3 months ADD DM No new complaints ) Vitals BP 120/80 (BP Location: Left arm, Patient Position: Sitting) Pulse 94 Temp 36.2 ??C (97.2 ??F) (Skin) Resp 16 Ht 180.3 cm (5' 11 ) Wt 92.7 kg (204 lb 4.8 oz) SpO2 98% BMI 28.49 kg/m?? PHQ Screening Over the last 2 [...] of Present Illness Patient presents for follow-up for attention deficit disorder taking Provigil 100 mg daily. No sideeffects from the medication. No chest pain or palpitations. He still is able to sleep at night. It helps markedly with concentration and task completion. He understands this is off-label but it has always worked well for him. No substance use. Not depressed. Not homicidal/suicidal. 2. He has no problems with insomnia as long as he takes trazodone 100 mg HS. 3. Depression. Patient's depression is well controlled . Taking Lexapro 20 mg every day without anyside effects . No manic symptoms or irritability. No substance use. Not suicidal or homicidal. Today PHQ-9 score is 0 4. Diabetes taking metformin 500 mg b.i.d. along with Jardiance 25 mg daily. No hypoglycemic symptoms. Last random blood sugar done 01/07/2021 was 146 down from previous 387 in September. Last A1c was 8.5 08/24/2020 Review of Systems Gen.: No fever, night [...] hyperglycemia, without long-term current use of insulin ([facility]) (E11.65) (Primary) Assessment & Plan: A1c is still over 8. Discussed and recommend additional medication with 1 option being increasing dose of metformin and another option adding a new additional medication. We will increase metformin to 1000 mg twice a day Orders: - POCT hemoglobin A1c Attention deficit disorder (ADD) without hyperactivity (F98.8) Assessment & Plan: Continue modafinil at same dosage. Well controlled. Major depression in remission ([facility]) (F32.5) Assessment & Plan: Continue Lexapro at same dosage. Well controlled. Psychophysiologic insomnia (F51.04) Assessment & Plan: Continue trazodone at same dosage. Well controlled. Other orders - modafiniL (PROVIGIL) 100 mg tablet; Take 1 tablet (100 mg total) by mouth daily - metFORMIN (GLUCOPHAGE) 1,000 mg tablet; Take 1 tablet (1,000 mg total) by mouth 2 (two) times a day with meals documented in this encounter Miscellaneous Notes * Assessment & Plan Note - Nathan Martinez MD - 02/08/2021 10:36 AM CDT Associated Problem(s): Psychophysiologic insomnia Continue trazodone at same dosage. Well controlled. * Assessment & Plan Note - Nathan Martinez MD - 02/08/2021 10:35 AM CDT Associated Problem(s): Type 2 diabetes mellitus with hyperglycemia, without long-term current use of insulin ([facility]) A1c is still over 8. Discussed and recommend additional medication with 1 option being increasing dose of metformin and another option adding a new additional medication. We will increase metformin to 1000 mg twice a day * Assessment & Plan Note - Nathan Martinez MD - 02/08/2021 10:33 AM CDT Associated Problem(s): Major depression in remission ([facility]) Continue Lexapro at same dosage. Well controlled. * Assessment & Plan Note - Nathan Martinez MD - 02/08/2021 10:32 AM CDT Associated Problem(s): ADD (attention deficit disorder) Continue modafinil at same dosage. Well controlled. documented in this encounter Plan of Treatment Not on file documented as of this encounter Procedures Procedure Name Priority Date/Time Associated Diagnosis Comments POCT HEMOGLOBIN A1C Routine 02/11/2021 1 1:06 AM CDT Type 2 diabetes mellitus with hyperglycemia, without long-term current use of insulin ([facility]) documented in this encounter Results * (ABNORMAL) POCT hemoglobin A1c (02/11/2021 11:06 AM CDT) Hemoglobin A1C, POC 8.2 Blood specimen (specimen) 02/11/2021 11:06 AM CDT us Nathan Martinez MD POINT OF CARE TEST ORDERAB LES Final Result documented in this encounter Visit Diagnoses Diagnosis Type 2 diabetes mellitus with hyperglycemia, without long-term current use of insulin (HCC)- Primary Attention deficit disorder (ADD) without hyperactivity Major depression in remission (HCC) Major depressive disorder, single episode in full remission Psychophysiologic insomnia documented in this encounter Discontinued Medications Medication Sig Discontinue Reason Start Date End Da te modafiniL (PROVIGIL) 100 mg tablet Take 1 tablet (100 mg total) by mouth daily Reorder 02/04/2021 02/11/2021 metFORMIN (GLUCOPHAGE) 500 mg tablet Take 1 tablet (500 mg total) by mouth 2 (two) times a day with meals Alternate therapy 06/11/2020 02/11/2021 documented as of this encounter Care Teams Pipe Line Repairer Relationship Specialty Start Date End Date Nathan Martinez MD PCP - General Family Practice 09/10/20 Monique Garcia MD Referring Physician Gastroenterology 06/11/20 Monique Garcia MD Referring Physician Gastroenterology 06/11/20 documented as of this encounter
--- OUTSIDE RECORDS SUMMARY | 2024-09-03 01:01 | XMS_ITS | Encounter Summary ---
Author Organization [facility] Address [address] [facility] [address] [place] [address] Care Team Providers Care Fish Worm Grower Name Role Phone Monique Garcia MD Unavailable [phone] Monique Garcia MD Unavailable [phone] Nathan Martinez MD Primary Care Provider [phone] Encounter Details Date Type Department Care Team (Late st Contact Info) Description 12/26/2020 Orders Only [facility] Health Information Management [address] [place] [address] Scanning, Provider Social History Tobacco Use Types [...] points, staff should administer the PHQ-9) 0 11/12/2020 Sex and Gender Information Value Date Recorded Sex Assigned at Not on file Legal Sex Male 2:58 AM CDT Gender Identity Male 03/10/2022 6:57 PM CDT Sexual Orientation Not on file documented as of this encounter Plan of Treatment Not on file documented as of this encounter Procedures Procedure Name Priority Date/Time Associated Diagnosis Comments SCAN - RADIOLOGY/IMAGING 12/26/2020 documented in this encounter Results * SCAN - RADIOLOGY/IMAGING (12/26/2020) Anatomical Region Laterality Modality Other us Provider Scanning Edited Result - Final documented in this encounter Visit Diagnoses Not on filedocumented in this encounter Additional Health Concerns Infection Onset Date Last Indicated Resolved Time COVID: Recovered Comment:Added based on recent COVID infection. 09/06/2020 09/07/2020 01/04/2021 3:05 AM C DT documented as of this encounter Care Teams Fish Worm Grower Relationship Specialty Start Date End Date Nathan Martinez MD PCP - General Family Practice 09/10/20 Monique Garcia MD Referring Physician Gastroenterology 06/11/20 Monique Garcia MD Referring Physician Gastroenterology 06/11/20 documented as of this encounter
--- OUTSIDE RECORDS SUMMARY | 2024-09-03 01:01 | XMS_ITS | Encounter Summary ---
Author Organization [facility] Address [address] [facility] [address] [place] [id number] Care Team Providers Care Kitchen Stewardess Name Role Phone Monique Garcia MD Unavailable [phone] Monique Garcia MD Unavailable [phone] Nathan Martinez MD Primary Care Provider [phone] Encounter Details Date Type Department Care Team (Late st Contact Info) Description 07/19/2021 Orders Only [facility] Health Information Management [address] [place] [address] Scanning, Provider Social History Tobacco Use Types [...] Date/Time Associated Diagnosis Comments SCAN - RADIOLOGY/IMAGING 07/18/2021 documented in this encounter Results * SCAN - RADIOLOGY/IMAGING (07/18/2021) Anatomical Region Laterality Modality Other us Provider Scanning Edited Result - Final documented in this encounter Visit Diagnoses Not on filedocumented in this encounter Care Teams Kitchen Stewardess Relationship Specialty Start Date End Date Nathan Martinez MD PCP - General Family Practice 09/10/20 Monique Garcia MD Referring Physician Gastroenterology 06/11/20 Monique Garcia MD Referring Physician Gastroenterology 06/11/20 documented as of this encounter
--- OUTSIDE RECORDS SUMMARY | 2024-09-03 01:01 | XMS_ITS | Encounter Summary ---
Author Organization [facility] Address [address] [facility] [address] [place] [address] Care Team Providers Care Client Technical Specialist Name Role Phone Monique Garcia MD Unavailable [phone] Monique Garcia MD Unavailable [phone] Nathan Martinez MD Primary Care Provider [phone] Encounter Details Date Type Department Care Team (Late st Contact Info) Description 12/27/2020 Orders Only [facility] Health Information Management [address] [place] [address] Scanning, Provider Social History Tobacco Use Types [...] Date/Time Associated Diagnosis Comments SCAN - RADIOLOGY/IMAGING 12/27/2020 documented in this encounter Results * SCAN - RADIOLOGY/IMAGING (12/27/2020) Anatomical Region Laterality Modality Other us Provider Scanning Final Result documented in this encounter Visit Diagnoses Not on filedocumented in this encounter Additional Health Concerns Infection Onset Date Last Indicated Resolved Time COVID: Recovered Comment:Added based on recent COVID infection. 09/06/2020 09/07/2020 01/04/2021 3:05 AM C DT documented as of this encounter Care Teams Client Technical Specialist Relationship Specialty Start Date End Date Nathan Martinez MD PCP - General Family Practice 09/10/20 Monique Garcia MD Referring Physician Gastroenterology 06/11/20 Monique Garcia MD Referring Physician Gastroenterology 06/11/20 documented as of this encounter
--- OUTSIDE RECORDS SUMMARY | 2024-09-03 01:01 | XMS_ITS | Encounter Summary ---
Author Organization [facility] Address [address] [address] Care Team Providers Care Senior Tax Analyst Name Role Phone Monique Garcia MD Unavailable [phone] Monique Garcia MD Unavailable [phone] Nathan Martinez MD Primary Care Provider [phone] Reason for Visit * Reason Comments Abdominal Pain C/o chronic RLQ abdo aiyana pain, worse over the past ten days. Pain is constant and describes as gnawing. Denies fever, C/o alternating constipation and diarrhea. C/o occasional mucous in stool. C/o nausea. Has taken otc omeprazole without relief. Suspicious Skin Lesion C/o skin lesion a rambo left ear for the past few months. Denies pain or itching. Area is increasing in size. 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 Never 09/02/2021 Average Number of Drinks Not on file 022 Q3: How often do you have si x or more drinks on one occasion? Never 09/02/2021 PHQ-2 Answer Date Recorded PHQ-2 Total Score (If total score is 3 or more points, staff should administer the PHQ-9) 0 09/02/2021 Sex and Gender Information Value Date Recorded Sex Assigned at Not on file Legal Sex Male 2:58 AM CDT Gender Identity Male 03/10/2022 6:57 PM CDT Sexual Orientation Not on file documented as of this encounter Last Filed Vital Signs Vital Sign Reading Time Taken Comments Blood Pressure 134/80 09/02/2021 8:22 AM DIVISION SALES MANAGER Pulse 80 09/02/2021 8:22 AM DIVISION SALES MANAGER Temperature 35.8 ??C (96.4 ??F) 09/02/2021 8:22 AM CS T Respiratory Rate 20 09/02/2021 8:22 AM DIVISION SALES MANAGER Oxygen Saturation 98% 09/02/2021 8:22 AM DIVISION SALES MANAGER Inhaled Oxygen Concentration - - Weight 96.1 kg (211 lb 12.8 oz) 09/02/2021 8:22 AM DIVISION SALES MANAGER Height 176.5 cm (5' 9.5 ) 09/02/2021 8:22 AM DIVISION SALES MANAGER Body Mass Index 30.83 09/02/2021 8:22 AM DIVISION SALES MANAGER documented in this encounter Ordered Prescriptions Prescription Sig Dispense Quantity Refills Last Filled Start Date End Date hyoscyamine ER (LEVBID) 0.375 mg 12 hr tabletIndications: diarrhea Take 1 tablet (0.375 mg total) by mouth every 12 (twelve) hours as needed for cramping 60 tablet 3 09/02/2021 4 empagliflozin (JARDIANCE) 25 mg tabletIndications: type 2 diabetes mellitus Take 1 tablet (25 mg total) by mouth daily 90 tablet 1 09/02/2021 3 escitalopram (LEXAPRO) 20 mg tablet Take 1 tablet (20 mg total) by mouth daily 90 tablet 1 09/02/2021 2 glipiZIDE (GLUCOTROL) 10 mg tabletIndications: type 2 diabetes mellitus Take 1 tablet (10 mg total) by mouth daily 90 tablet 1 09/02/2021 4 metFORMIN (GLUCOPHAGE) 1,000 mg tablet Take 1 tablet (1,000 mg total) by mouth 2 (two) times a day with meals 180 tablet 1 09/02/2021 3 traZODone (DESYREL) 100 mg tablet Take 1 tablet (100 mg total) by mouth nightly as needed for sleep 90 tablet 1 09/02/2021 2 modafiniL (PROVIGIL) 100 mg tablet Take 1 tablet (100 mg total) by mouth daily 90 tablet 09/02/2021 2 documented in this encounter Progress Notes * Nathan Martinez MD - 09/02/2021 8:00 AM CST Subjective/Objective Patient ID: Erich Allen is a 51 y.o. male. Chief Complaint Abdominal Pain (C/o chronic RLQ abdominal pain, worse over the past ten days. Pain is constant and describes as gnawing. Denies fever, C/o alternating constipation and diarrhea. C/o occasional mucousin stool. C/o nausea. Has taken otc omeprazole without relief. ), Suspicious Skin Lesion (C/o skin lesion above left ear for the past few months. Denies pain or itching. Area is increasing in size. ), and Med Refill Vitals BP 134/80 (BP Location: Left arm, Patient Position: Sitting) Pulse 80 Temp (!) 35.8 ??C (96.4 ??F) (Skin) Resp 20 Ht 176.5 cm (5' 9.5 ) Wt 96.1 kg (211 lb 12.8 oz) SpO2 98% BMI 30.83 kg/m?? PHQ Screening Over the last 2 [...] History of Present Illness Patient presents for 1. Follow-up chronic abdominal pain described as gnawing in character. Rated as 7/10 in severity associated with some nausea. Some loose stools occasionally bloody. One last seenon June 17, 2021 this had been going on for several days. This was associated with productive cough. History of diverticulitis. History of bowel resection due to diverticulitis. Pain was primarilyperiumbilical in location. KUB was ordered. Labs were ordered. Patient was given trial of Cipro andFlagyl. CBC was unremarkable except for mild microcytosis but this was present on previous CBCs. Chemistry profile was normal except for glucose 214. Liver functions were normal. Lipase was normal. Test for RSV and COVID were negative. Negative test for influenza. Serum lactate was normal. Chest x-ray was normal on 06/17/2021. CT of the abdomen and pelvis showedprior cholecystectomy. The only abnormal finding was very small fat containing umbilical hernia andfatty liver. Appendix surgically absent. 2. Diabetes needing better control taking Jardiance 25 mg daily, metformin a 1000 mg b.i.d. along with glipizide 10 mg. Last A1c done 06/17/2021 was 8.9. Thatwas when glipizide was started. 3. Chronic insomnia adequately controlled on trazodone 100 mg nightly. 4. Depression. Patient's depression is well controlled . Taking Lexapro 20 mg every day withoutany side effects . No manic symptoms or irritability. No substance use. Not suicidal or homicidal. 5. Patient takes modafinil off-label for ADD. Review of Systems Gen.: No fever, night [...] Diagnoses and all orders for this visit: Chronic abdominal pain (R10.9, G89.29) (Primary) Assessment & Plan: Previous pain is similar to this pain and is relieved by bowel movements without any blood in the stool or melanotic stools. Most suggestive of irritable bowel syndrome will try Levbid. Caution side effects 11. Re-evaluate few weeks for to GI. KUB Type 2 diabetes mellitus with hyperglycemia, without long-term current use of insulin ([facility]) ([facility]) (E11.65) Assessment & Plan: A1c today. Psychophysiologic insomnia (F51.04) Assessment & Plan: Continue trazodone at same dosage. Well controlled. Major depression in remission ([facility]) (F32.5) Assessment & Plan: Continue Lexapro at same dosage. Well controlled. Attention deficit disorder (ADD) without hyperactivity (F98.8) Assessment & Plan: Allow modafinil as no evidence of toxicity and evidence of benefit Right lower quadrant pain (R10.31) Assessment & Plan: Pain most recently is in the right lower quadrant but can be and other areas and is similar to the previous pain he had in May-relieved by bowel movements. Alternating constipation and diarrhea but mostly diarrhea will try Levbid will get KUB of the abdomen. 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) Assessment & Plan: Refer to Dermatology Orders: - Ambulatory referral to Dermatology; Future Other orders - modafiniL (PROVIGIL) 100 mg tablet; Take 1 tablet (100 mg total) by mouth daily - traZODone (DESYREL) 100 mg tablet; Take 1 tablet (100 mg total) by mouth nightly as needed for sleep - metFORMIN (GLUCOPHAGE) 1,000 mg tablet; Take 1 tablet (1,000 mg total) by mouth 2 (two) times a day with meals - glipiZIDE (GLUCOTROL) 10 mg tablet; Take 1 tablet (10 mg total) by mouth daily - escitalopram (LEXAPRO) 20 mg tablet; Take 1 tablet (20 mg total) by mouth daily - empagliflozin (JARDIANCE) 25 mg tablet; Take 1 tablet (25 mg total) by mouth daily - hyoscyamine ER (LEVBID) 0.375 mg 12 hr tablet; Take 1 tablet (0.375 mg total) by mouth every 12 (twelve) hours as needed for cramping SION SALES MANAGER SION SALES MANAGER documented in this encounter Miscellaneous Notes * Assessment & Plan Note - Nathan Martinez MD - 09/02/2021 9:00 AM DIVISION SALES MANAGER Associated Problem(s): 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 Most suggestive of irritable bowel syndrome will try Levbid. Caution side effects 11. Re-evaluate few weeks for to GI. KUB SION SALES MANAGER * Assessment & Plan Note - Nathan Martinez MD - 09/02/2021 8:58 AM DIVISION SALES MANAGER Associated Problem(s): Right lower quadrant pain Pain most recently is in the right lower quadrant but can be and other areas and is similar to the previous pain he had in May-relieved by bowel movements. Alternating constipation and diarrhea but mostly diarrhea will try Levbid will get KUB of the abdomen. Will refer to GI-history of Ludmila fundoplication SION SALES MANAGER * Assessment & Plan Note - Nathan Martinez MD - 08/30/2021 7:26 AM DIVISION SALES MANAGER Associated Problem(s): ADD (attention deficit disorder) Allow modafinil as no evidence of toxicity and evidence of benefit SION SALES MANAGER * Assessment & Plan Note - Nathan Martinez MD - 08/30/2021 7:26 AM DIVISION SALES MANAGER Associated Problem(s): Major depression in remission (HCC) Continue Lexapro at same dosage. Well controlled. SION SALES MANAGER * Assessment & Plan Note - Nathan Martinez MD - 08/30/2021 7:26 AM DIVISION SALES MANAGER Associated Problem(s): Psychophysiologic insomnia Continue trazodone at same dosage. Well controlled. SION SALES MANAGER * Assessment & Plan Note - Nathan Martinez MD - 08/30/2021 7:25 AM DIVISION SALES MANAGER Associated Problem(s): Type 2 diabetes mellitus with hyperglycemia, without long-term current use of insulin (HCC) A1c today. 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 documented in this encounter Discontinued Medications Medication Sig Discontinue Reason Start Date End Da te HYDROcodone-acetaminophe n (NORCO) 5-325 mg per tabletIndications:Pain Take 1 tablet by mouth every 6 (six) hours as needed for pain Therapy completed 06/17/2021 08/30/2021 escitalopram (LEXAPRO) 20 mg tablet Take 1 tablet (20 mg total) by mouth daily Reorder 06/11/2020 09/02/2021 empagliflozin (JARDIANCE) 25 mg tabletIndications:type 2 diabetes mellitus Take 1 tablet (25 mg total) by mouth daily Reorder 11/12/2020 09/02/2021 metFORMIN (GLUCOPHAGE) 1,000 mg tablet Take 1 tablet (1,000 mg total) by mouth 2 (two) times a day with meals Reorder 02/11/2021 09/02/2021 glipiZIDE (GLUCOTROL) 10 mg tabletIndications:type 2 diabetes mellitus Take 1 tablet (10 mg total) by mouth daily Reorder 06/21/2021 09/02/2021 modafiniL (PROVIGIL) 100 mg tablet Take 1 tablet (100 mg total) by mouth daily Reorder 08/05/2021 09/02/2021 traZODone (DESYREL) 100 mg tablet Take 1 tablet (100 mg total) by mouth nightly as needed for sleep Reorder 08/05/2021 09/02/2021 documented as of this encounter Care Teams Senior Tax Analyst Relationship Specialty Start Date End Date Nathan Martinez MD PCP - General Family Practice 09/10/20 Monique Garcia MD Referring Physician Gastroenterology 06/11/20 Monique Garcia MD Referring Physician Gastroenterology 06/11/20 documented as of this encounter
--- OUTSIDE RECORDS SUMMARY | 2024-09-03 01:01 | XMS_ITS | Encounter Summary ---
Author Organization [facility] Address [address] [facility] [address] [place] [id number] Care Team Providers Care Sales Ledger Clerk Name Role Phone Monique Garcia MD Unavailable [phone] Monique Garcia MD Unavailable [phone] Nathan Martinez MD Primary Care Provider [phone] Encounter Details Date Type Department Care Team (Late st Contact Info) Description 10/16/2021 Orders Only [facility] [facility] [address] [place] [address] Scanning, Provider Social History Tobacco Use Types [...] Procedure Name Priority Date/Time Associated Diagnosis Comments GI - RESULT 10/16/2021 9:45 PM FOURCHETTE SEWER documented in this encounter Results * GI - RESULT (10/16/2021 9:45 PM FOURCHETTE SEWER) Anatomical Region Laterality Modality Other us Provider Scanning Final Result documented in this encounter Visit Diagnoses Not on filedocumented in this encounter Care Teams Sales Ledger Clerk Relationship Specialty Start Date End Date Nathan Martinez MD PCP - General Family Practice 09/10/20 Monique Garcia MD Referring Physician Gastroenterology 06/11/20 Monique Garcia MD Referring Physician Gastroenterology 06/11/20 documented as of this encounter
--- OUTSIDE RECORDS SUMMARY | 2024-09-03 01:01 | XMS_ITS | Encounter Summary ---
Author Organization [facility] Address [address] [address] Care Team Providers Care Director Of Clinical Applications Name Role Phone Monique Garcia MD Unavailable [phone] Monique Garcia MD Unavailable [phone] Natahn Martinez MD Primary Care Provider [phone] Reason for Visit * Reason Comments Follow-up Six month follow up r/t diabetes, anemia, depression, insomnia. No current labs in chart. Abdominal Pain C/o periumbilcal erick n over the past two days. Pain is constant. Describes pain as gnawing. Rates pain at #7. C/o nausea. Reports bloody stool. Reports loose stools. Cough C/o cough over the p ast two days. Cough produces yellow sputum. Denies fever, shortness of breath or wheezing. C/o sinus pressure. Has not taken any otc medications. Encounter Details Date Type Department Care Team (Late st Contact Info) Description 06/17/2021 10:00 AM CDT Office Visit [facility] Primary Care [address] [place] [address] Nathan Martinez MD [address] [place], [place] [id number] Type 2 diabetes mellitus with hyperglycemia, without long-term current use of insulin (CMS/HCC) (HCC) (Primary Dx); Psychophysiologic insomnia; Major depression in remission (HCC); Attention deficit disorder (ADD) without hyperactivity; Periumbilical pain; Cough Social History Tobacco Use Types Packs/Day Years [...] Average Number of Drinks Not on file Q3: How often do you have si [...] Sign Reading Time Taken Comments Blood Pressure 126/88 06/17/2021 10:03 AM CDT Pulse 96 06/17/2021 10:03 AM CDT Temperature 35.8 ??C (96.5 ??F) 06/17/2021 1 0:03 AM CDT Respiratory Rate 18 06/17/2021 10:0 3 AM CDT Oxygen Saturation 98% 06/17/2021 10: 03 AM CDT Inhaled Oxygen Concentration - - Weight 95.1 kg (209 lb 11.2 oz) 021 10:03 AM CDT Height 175.3 cm (5' 9.02 ) 06/17/2021 1 0:03 AM CDT Body Mass Index 30.95 06/17/2021 10:03 AM CDT documented in this encounter Ordered Prescriptions Prescription Sig Dispense Quantity Refills Last Filled Start Date End Date glipiZIDE (GLUCOTROL) 5 mg tabletIndications: type 2 diabetes mellitus Take 1 tablet (5 mg total) by mouth daily 30 tablet 11 06/17/2021 06/21/2021 metroNIDAZOLE (FLAGYL) 500 mg tablet Take 1 tablet (500 mg total) by mouth 3 (three) times a day for 10 days 30 tablet 06/17/2021 06/27/2021 ciprofloxacin (CIPRO) 500 mg tablet Take 1 tablet (500 mg total) by mouth 2 (two) times a day for 10 days 20 tablet 06/17/2021 06/27/2021 documented in this encounter Progress Notes * Nathan Martinez MD - 06/17/2021 10:00 AM CDT Subjective/Objective Patient ID: Erich Allen is a 51 y.o. male. Chief Complaint Follow-up (Six month follow up r/t diabetes, anemia, depression, insomnia. No current labs in chart.), Abdominal Pain (C/o periumbilcal pain over the past two days. Pain is constant. Describes pain as gnawing. Rates pain at #7. C/o nausea. Reports bloody stool. Reports loose stools. ), and Cough (C/o cough over the past two days. Cough produces yellow sputum. Denies fever, shortness of breath or wheezing. C/o sinus pressure. Has not taken any otc medications. ) Vitals BP 126/88 (BP Location: Left arm, Patient Position: Sitting) Pulse 96 Temp (!) 35.8 ??C (96.5 ??F) (Skin) Resp 18 Ht 175.3 cm (5' 9.02 ) Wt 95.1 kg (209 lb 11.2 oz) SpO2 98% BMI 30.95 kg/m?? PHQ Screening Over the last 2 [...] of Present Illness Patient presents for 1. Diabetes needing better control. His A1c was 8.2. Previous A1c 8.5. Metformin was increased to 1000 mg b.i.d.. He had also been taking Jardiance 25 mg daily. No hypoglycemic symptoms. 2. Attention deficit disorder on modafinil without side effects. This seems to help with symptoms well. He understands this is off-label. He declined to try other medications. 3. Depression. Patient's depression is well controlled . Taking Lexapro 20 mg every day without any side effects . No manic symptoms or irritability. No substance use. Not suicidal or homicidal. 4. Insomnia taking trazodone 100 mg nightly without side effects. 5. Illness x2 days associated with some loose stools oc casionally with bright red blood and some cough productive of purulence mucous, he does have history of diverticulitis with bowel resection and is concerned about blockage though he has not been vomiting Review of Systems Gen.: No fever, night [...] hyperglycemia, without long-term current use of insulin ([facility] ([facility]) (E11.65) (Primary) Assessment & Plan: A1c today. Also needs lipids, urine microalbumin, and diabetic eye exam. A1c is higher. Also start glipizide 5 mg daily and re-evaluate blood sugar in at least 3 months Orders: - POCT hemoglobin A1c - Cholesterol, LDL, direct; Future - Albumin Creatinine Ratio, Urine; Future Psychophysiologic insomnia (F51.04) Assessment & Plan: Continue trazodone at same dosage. Well controlled. Major depression in remission ([facility]) (F32.5) Assessment & Plan: Continue Lexapro at same dosage. Well controlled. Attention deficit disorder (ADD) without hyperactivity (F98.8) Assessment & Plan: Continue Provigil at same dosage. Well controlled. Periumbilical pain (R10.33) Assessment & Plan: Worse times few days and associated with some loose stools. Bloody stool. Some nausea but no vomiting. Orders: - XR Kub; Future - CBC with auto differential; Future - Comprehensive metabolic panel; Future Cough (R05.9) Assessment & Plan: Cough times few days probably related to upper respiratory infection and most likely viral. Some yellow speech Other orders - ciprofloxacin (CIPRO) 500 mg tablet; Take 1 tablet (500 mg total) by mouth 2 (two) times a day for 10 days - metroNIDAZOLE (FLAGYL) 500 mg tablet; Take 1 tablet (500 mg total) by mouth 3 (three) times a dayfor 10 days - Cholesterol, LDL, direct - Albumin Creatinine Ratio, Urine documented in this encounter Miscellaneous Notes * Assessment & Plan Note - Nathan Martinez MD - 06/17/2021 10:22 AM CDT Associated Problem(s): Cough Cough times few days probably related to upper respiratory infection and most likely viral. Some yellow speech * Assessment & Plan Note - Nathan Martinez MD - 06/17/2021 10:21 AM CDT Associated Problem(s): Periumbilical pain Worse times few days and associated with some loose stools. Bloody stool. Some nausea but no vomiting. * Assessment & Plan Note - Nathan Martinez MD - 06/11/2021 1:30 PM CDT Associated Problem(s): ADD (attention deficit disorder) Continue Provigil at same dosage. Well controlled. * Assessment & Plan Note - Nathan Martinez MD - 06/11/2021 1:30 PM CDT Associated Problem(s): Major depression in remission (HCC) Continue Lexapro at same dosage. Well controlled. * Assessment & Plan Note - Nathan Martinez MD - 06/11/2021 1:29 PM CDT Associated Problem(s): Psychophysiologic insomnia Continue trazodone at same dosage. Well controlled. * Assessment & Plan Note - Nathan Martinez MD - 06/11/2021 1:29 PM CDT Associated Problem(s): Type 2 diabetes mellitus with hyperglycemia, without long-term current use of insulin (HCC) A1c today. Also needs lipids, urine microalbumin, and diabetic eye exam. A1c is higher. Also start glipizide 5 mg daily and re-evaluate blood sugar in at least 3 months documented in this encounter Plan of Treatment Scheduled Orders Name Type Priority Associated Diagnoses Orde r Schedule Cholesterol, LDL, direct Lab Routine Type 2 diabetes mellitus with hyperglycemia, without long-term current use of insulin ([facility] ([facility]) Expected: 06/17/2021, Expires: 06/17/2022 Albumin Creatinine Ratio, Urine Lab Routine Type 2 diabetes mellitus with hyperglycemia, without long-term current use of insulin ([facility] ([facility]) Expected: 06/17/2021, Expires: 06/17/2022 documented as of this encounter Procedures Procedure Name Priority Date/Time Associated Diagnosis Comments CBC WITH AUTO DIFFERENTIAL Routine 06/17/2021 10:44 AM CDT Periumbilical pain ALBUMIN CREATININE RATIO, URINE Routine 06/17/2021 10:44 AM CDT CHOLESTEROL, LDL, DIRECT Routine 06/17/2021 10:44 AM CDT COMPREHENSIVE METABOLIC PANEL Routine 06/17/2021 10:44 AM CDT Periumbilical pain POCT HEMOGLOBIN A1C Routine 06/17/2021 1 0:17 AM CDT Type 2 diabetes mellitus with hyperglycemia, without long-term current use of insulin ([facility] ([facility]) documented in this encounter Results * Albumin Creatinine Ratio, Urine (06/17/2021 10:44 AM CDT) Creatinine, ur 129 20 - 320 mg/dL [facility] Microalbumin, ur 0.5 See Note: mg/dL [facility] Comment: Reference Range: Reference Range Not established Microalbumin/creat ratio 4 <30 mcg/mg creat [facility] Comment: [...] patient to be within a diagnostic category. 06/17/2021 10:4 4 AM CDT 06/17/2021 10:49 AM CDT Narrative [facility] - 06/18/2021 12:41 PM CDT FASTING:YES FASTING: YES Nathan Martinez MD LAB URINE ORDERABLES Final Result Performing Organization Address [facility] de Phone Number [facility] [address] [place] [address] * (ABNORMAL) Cholesterol, LDL, direct (06/17/2021 10:44 AM CDT) LDL, direct 120(H) <100 mg/dL [facility] Comment: Greatly elevated Triglycerides values (>1200 mg/dL) interfere with the dLDL assay. As no Triglycerides testing was ordered, interpret results with caution. Desirable range <100 mg/dL for primary prevention; ?? <70 mg/dL for patients with CHD or diabetic patients with > or = 2 CHD risk factors. 06/17/2021 10:4 4 AM CDT 06/17/2021 10:49 AM CDT Narrative [facility] - 06/18/2021 12:41 PM CDT FASTING:YES FASTING: YES Nathan Martinez MD LAB BLOOD ORDERABLES Final Result Performing Organization Address [facility] de Phone Number [facility] [address] [place] [address] * (ABNORMAL) Comprehensive metabolic panel (06/17/2021 10:44 AM CDT) Glucose 214(H) 65 - 99 mg/dL [facility] Comment: ? Fasting reference interval For someone without known diabetes, a glucose value >125 mg/dL indicates that they may have diabetes and this should be confirmed with a follow-up test. BUN 13 7 - 25 mg/dL [facility] Creatinine 1.00 0.70 - 1.33 mg/dL [facility] Comment: For patients >49 years of age, the reference limit for Creatinine is approximately 13% higher for people identified as -[place]. eGFR NON-AFR. ALBANIAN 86 > OR = 60 mL/min/1 .73m2 [facility] EGFR 100 > OR = 60 mL/min/1 .73m2 [facility] BUN/creat ratio NOT APPLICABLE 6 - 22 (calc) [facility] Sodium 136 135 - 146 mmol/L [facility] Potassium, pl 4.2 3.5 - 5.3 mmol/L [facility] Chloride 98 98 - 110 mmol/L [facility] CO2 31 20 - 32 mmol/L [facility] Calcium 9.5 8.6 - 10.3 mg/dL [facility] Protein, sr 7.0 6.1 - 8.1 g/dL [facility] Albumin 4.6 3.6 - 5.1 g/dL [facility] GLOBULIN 2.4 1.9 - 3.7 g/dL (calc) [facility] Alb/glob ratio 1.9 1.0 - 2.5 (calc) [facility] Bilirubin, total 0.4 0.2 - 1.2 mg/dL [facility] Alk phos 76 35 - 144 U/L [facility] AST 16 10 - 35 U/L [facility] ALT (SGPT) 25 9 - 46 U/L [facility] Blood specimen (specimen) 06/17/2021 10:44 AM CDT 06/17/2021 10:49 AM CDT Narrative [facility] - 06/18/2021 12:41 PM CDT FASTING:YES FASTING: YES us Nathan Martinez MD LAB BLOOD ORDERABLES Final Result [facility] [address] [place] [address] * (ABNORMAL) CBC with auto differential (06/17/2021 10:44 AM CDT) WBC 5.3 3.8 - 10.8 Thousand/u L [facility] RBC, POC 5.75 4.20 - 5.80 Million/uL [facility] Hgb 14.9 13.2 - 17.1 g/dL [facility] Hct 45.3 38.5 - 50.0 % [facility] MCV 78.8(L) 80.0 - 100.0 fL [facility] MCH 25.9(L) 27.0 - 33.0 pg [facility] MCHC 32.9 32.0 - 36.0 g/dL [facility] Rdw 14.3 11.0 - 15.0 % [facility] Platelets 273 140 - 400 Thousand/u L [facility] MPV 10.0 7.5 - 12.5 fL [facility] Neutrophils, abs 3,180 1,500 - 7,800 cells/uL [facility] Lymphocytes, abs 1,659 850 - 3,900 cells/uL [facility] Monocyte abs 350 200 - 950 cells/uL [facility] Eosinophils, abs 80 15 - 500 cells/uL [facility] Basophils, abs 32 0 - 200 cells/uL [facility] Neutrophils 60 % [facility] Lymphocyte pct 31.3 % [facility] Monocytes 6.6 % [facility] Eosinophils 1.5 % [facility] Basophils 0.6 % [facility] Blood specimen (specimen) 06/17/2021 10:44 AM CDT 06/17/2021 10:49 AM CDT Narrative [facility] - 06/18/2021 12:41 PM CDT FASTING:YES FASTING: YES Nathan Martinez MD LAB BLOOD ORDERABLES Final Result [facility] [address] [place] [address] * (ABNORMAL) POCT hemoglobin A1c (06/17/2021 10:17 AM CDT) Hemoglobin A1C, POC 8.9 Blood specimen (specimen) 06/17/2021 10:17 AM CDT Nathan Martinez MD POINT OF CARE TEST ORDERAB LES Final Result documented in this encounter Visit Diagnoses Diagnosis Type 2 diabetes mellitus with hyperglycemia, without long-term current use of insulin (HCC)- Primary Psychophysiologic insomnia Major depression in remission (HCC) Major depressive disorder, single episode in full remission Attention deficit disorder (ADD) without hyperactivity Periumbilical pain Abdominal pain, periumbilic Cough documented in this encounter Additional Health Concerns Infection Onset Date Last Indicated Resolved Time COVID: Suspected 06/17/2021 06/17/2021 06/17/2021 6:42 PM CDT documented as of this encounter Care Teams Director Of Clinical Applications Relationship Specialty Start Date End Date aNthan Martinez MD PCP - General Family Practice 09/10/20 Monique Garcia MD Referring Physician Gastroenterology 06/11/20 Monique Garcia MD Referring Physician Gastroenterology 06/11/20 documented as of this encounter
--- OUTSIDE RECORDS SUMMARY | 2024-09-03 01:01 | XMS_ITS | Encounter Summary ---
Author Organization [facility] Healthcare Address [address] [place] [address] Care Team Providers Care Fender Finisher Name Role Phone Monique Garcia MD Unavailable [phone] Monique Garcia MD Unavailable [phone] Nathan Martinez MD Primary Care Provider [phone] Encounter Details Date Type Department Care Team (Late st Contact Info) Description 01/07/2021 8:18 PM CDT - 01/08/2021 1:30 AM CDT Emergency [facility] Emergency Department [address] [place] [id number] Unknown, Laura Valencia MD [facility] [place] [address] Discharge Disposition: Discharge to home or self [...] Sign Reading Time Taken Comments Blood Pressure 128/76 01/07/2021 8:33 PM CDT Pulse 78 01/07/2021 8:33 PM CDT Temperature 36.8 ??C (98.3 ??F) 01/07/2021 8:33 PM CD T Respiratory Rate - - Oxygen Saturation 99% 01/07/2021 8:33 PM CDT Inhaled Oxygen Concentration - - Weight 91.8 kg (202 lb 6.2 oz) 01/07/2021 8:33 P M CDT Height 180.3 cm (5' 11 ) 01/07/2021 8:33 PM CDT Body Mass Index 28.23 01/07/2021 8:33 PM CDT documented in this encounter Medications at Time of Discharge empagliflozin (JARDIANCE) 25 mg tabletIndication s:type 2 diabetes mellitus Take 1 tablet (25 mg total) by mouth daily 90 tablet 3 11/12/2020 09/02/2021 escitalopram (LEXAPRO) 20 mg tablet Take 1 tablet (20 mg total) by mouth daily 90 tablet 3 06/11/2020 09/02/2021 metFORMIN (GLUCOPHAGE) 500 mg tablet Take 1 tablet (500 mg total) by mouth 2 (two) times a day with meals 180 tablet 3 06/11/2020 02/11/2021 modafiniL (PROVIGIL) 100 mg tablet Take 1 tablet (100 mg total) by mouth daily 90 tablet 1 11/12/2020 02/04/2021 traZODone (DESYREL) 100 mg tablet Take 1 [...] Date/Time Associated Diagnosis Comments SCAN - LABS 01/08/2021 12:00 AM CDT CBC WITH AUTO DIFFERENTIAL Routine 01/07/2021 8:47 PM CDT LIPASE Routine 01/07/2021 8:47 PM CDT COMPREHENSIVE METABOLIC PANEL Routine 01/07/2021 8:[address] ABDOMEN PELVIS W CONTRAST 01/07/2021 12:00 AM CDT documented in this encounter Results * SCAN - LABS (01/08/2021 12:00 AM CDT) Narrative 01/08/2021 12:00 AM CDT Ordered by an unspecified provider. us Historical Provider Final Res ult * Lipase (01/07/2021 8:47 PM CDT) Lipase 55 13 - 60 U/L [facility] 01/07/2021 8:47 PM CDT 01/07/2021 8:52 PM CDT Narrative Resulting Agency Comment ER Laura Ferraro MD LAB BLOOD ORDERABLES Marilee l Result [address] [phone] * (ABNORMAL) Comprehensive metabolic panel (01/07/2021 8:47 PM CDT) Sodium 138 135 - 145 mmol/L [facility] Potassium 4.0 3.3 - 5.1 mmol/L [facility] Chloride 102 96 - 108 mmol/L [facility] Carbon Dioxide 25 22 - 32 mmol/L [facility] Anion Gap 11 7 - 16 [facility] Glucose 146(H) 70 - 100 mg/dL [facility] BUN 9 8 - 25 mg/dL [facility] Creatinine 1.1 0.5 - 1.3 mg/dL [facility] Comment: NOTE: Estimated GFR (Cockroft-Gault) will NOT be calculated unless patient Height and Weight were entered. Also, Kidney Disease Stage (GFR) and Estimated GFR (Cockroft-Gault) will NOT be calculated if Creatinine result is <0.2. Kidney Disease Stage 75 mL/MIN [facility] Comment: NOTE; ??The GFR is an estimated value using the creatinine, sex, age, and race of the patient. THE Estimated Kidney Disease GFR is validated for AGES 18-70 YEARS STAGE ?mL/Min ?DESCRIPTION ??1 ?90 mL/min or more ?Normal or elevated GFR ??2 ? 60-89 mL/min ?Mildly decreased GFR ??3 ? 30-59 mL/min ?Moderately decreased GFR ??4 ? 15-29 mL/min ?Severely decreased GFR ??5 ? <15 mL/min ? Kidney failure or on dialysis Est GFR (Cockcroft-G) 92 ml/MIN [facility] Comment: Estimated GFR(Cockroft-Gault)is used to calculate patient medication dosage Calcium 9.4 8.6 - 10.3 mg/dL [facility] Total Protein 7.4 6.4 - 8.3 g/dL [facility] Albumin 4.6 3.5 - 5.0 g/dL [facility] Globulin 2.8 2.3 - 3.5 gm/dL [facility] Albumin/Globulin Ratio 1.6 1.1 - 1.8 [facility] Total Bilirubin 0.3 0.0 - 1.2 mg/dL [facility] AST 18 0 - 40 U/L [facility] ALT 29 0 - 41 U/L [facility] Alkaline Phosphatase 77 40 - 129 U/L [facility] 01/07/2021 8:47 PM CDT 01/07/2021 8:52 PM CDT Narrative Resulting Agency Comment ER us Laura Ferraro MD LAB BLOOD ORDERABLES Marilee harrison Result [facility] [address] [place] [address] * (ABNORMAL) CBC with auto differential (01/07/2021 8:47 PM CDT) WBC 5.6 3.8 - 9.9 X10 3/ul [facility] RBC 5.58 4.30 - 5.80 x10 6/ul [facility] Hemoglobin 14.4 13.0 - 17.5 g/dL [facility] Hct 43.6 38.9 - 50.3 % [facility] MCV 78.1(L) 81.3 - 96.[address] [facility] MCH 25.8(L) 27.1 - 33.[address] [facility] MCHC 33.0 32.3 - 35.7 g/dl [facility] RDW 14.0 11.1 - 14.9 % [facility] Plt Count 270 150 - 400 x10 3/ul [facility] MPV 9.2 9.1 - 12.[address] [facility] Neut % 54.5 % [facility] [employer] [facility] Immature Gran % 0.4 % [facility] Lymph % 35.2 % [facility] E AST - [employer] [place] % 8.2 % [facility] E AST - [employer] Eos % 1.3 % [facility] E AST - [employer] AUTO BASO % 0.4 % [facility] NEUTROPHIL ABS # 3.1 1.7 - 6.5 x10 3/ul [facility] Immature Gran # 0.0 0.0 - 0.1 x10 3/ul [facility] Absolute Lymphs (auto) 2.0 0.8 - 3.3 x10 3/ul [facility] Absolute Monos (auto) 0.5 0.2 - 0.8 x10 3/ul [facility] Absolute Eos (auto) 0.1 0.0 - 0.5 x10 3/ul [facility] BASOPHIL ABS # 0.0 0.0 - 0.1 x10 3/ul [facility] Nucleat RBC Rel Count 0.0 #/100WBC [facility] NRBC abs 0.00 0.00 - 0.01 x10 3/ul [facility] Absolute Neutrophils 3,100 200 - 8,000 /ul [facility] 01/07/2021 8:47 PM CDT 01/07/2021 8:52 PM CDT Narrative Resulting Agency Comment ER us Laura Ferraro MD LAB BLOOD ORDERABLES Marilee l Result [address] [phone] * CT Abdomen Pelvis W Contrast (01/07/2021 12:00 AM CDT) Anatomical Region Laterality Modality Body N/A Computed Tomogra phy 01/07/2021 10:2 7 PM CDT Narrative 01/07/2021 10:48 PM CDT Patient Name: MATTHEW WRIGHT ?Ordering Dr: Laura Ferraro MD ?? D.O.B: 1970 ? Exam Date: 01/07/21 ?? 0000 ?? Age: 50 ?Sex: Male ? MR#: [id number] ?? Loc: ? RADIOLOGY REPORT ?? Order #[id number] ?? CT Scan ? CT Abd/Pelvis W IV Contrast ? Signed ? EXAM DESCRIPTION: ?? CT Abd/Pelvis W IV Contrast ? REASON FOR STUDY: ?? two recent bowel obstructions, pain has returned to R abd. ?No bowel movement for 3 days with sharp abdominal pain to right side of ?? abdomen and nausea and vomiting. ? TECHNIQUE: ??CT scan of the abdomen and pelvis performed with intravenous and ? without oral contrast using helical scanning technique with dynamic ?? intravenous contrast injection. Reconstructed coronal and sagittal MPR images ?? reviewed. All images stored on PACS. ? Automated exposure control was used as a dose optimization technique for this ?? examination. ? CONTRAST TYPE/DOSE: ?? 100 cc Optiray 350 injected via ??right wrist. ? COMPARISON: ?? 10/08/2020 ? FINDINGS: ? LOWER CHEST: ??No significant pulmonary abnormalities. No effusion. ? LIVER: ??Decreased attenuation as seen with fibrofatty changes ? GALLBLADDER: ??Surgically absent. ? BILE DUCTS: ??No intrahepatic or extrahepatic ductal dilatation. ? SPLEEN: ??Normal size. ??No focal lesions. ? PANCREAS: ??No identified cystic or solid masses. No significant ?? calcifications. No adjacent inflammation or peripancreatic fluid collections. ?? Pancreatic duct not dilated. ? ADRENALS: ??Normal. ? KIDNEYS/URINARY TRACT: ??No identified significant cystic or solid masses. No ?? visualized stones. No hydronephrosis or hydroureter. Symmetric enhancement. ? Diffuse thickening of the wall of the urinary bladder is unchanged compared ?? with 10/08/2020. ? GI: ??There is a solitary loop of minimally dilated proximal jejunum in the ?? left upper quadrant measuring approximately 10 cm. ??The bowel gradually ?? transitions to normal caliber. ??Correlate clinically to exclude partial ?? small-bowel obstruction. ??The remainder of the gut is unremarkable. ??The ?? appendix is surgically absent. ? PERITONEUM: ??No ascites or free air. ? RETROPERITONEUM: ??No mass or adenopathy. ? REPRODUCTIVE: ??No significant abnormality. ? VASCULATURE: ??No abdominal aortic aneurysm. ? MUSCULOSKELETAL: ??No significant abnormality. ? OTHER: ??Postoperative changes of prior left inguinal hernia repair with mesh ?? graft in place. ??Small periumbilical hernia containing only fat. ? IMPRESSION: ? 1. ??Mild focal dilatation of a solitary 10 cm loop of proximal jejunum in the ?? left upper quadrant with gradual transition of the bowel to normal caliber. ? The findings are nonspecific. ??Correlate clinically to exclude partial ?? small-bowel obstruction. ??The remainder of the gut is normal in caliber. ? 2. ??Stable diffuse thickening of the wall of the urinary bladder compared with ?? 10/08/2020. ? 3. ??Surgical absence of the gallbladder. ? 4. ??Fatty infiltration of the liver. ? 5. ??Evidence of prior left inguinal hernia repair. ??Small periumbilical hernia ?? containing only fat. ? THIS IS AN ELECTRONICALLY VERIFIED FINAL REPORT ?? 01/07/2021 10:48 PM - Electronically signed by Hemanth Wagoner ?? Hemanth Wagoner ? KT: KT ?? D: ??01/07/2021 10:48 PM ?? T: ??01/07/2021 10:48 PM ? Report ID: [id number] ?? Reading Location: ??[id number] ? REPORT ELECTRONICALLY SIGNED IN OTHER VENDOR SYSTEM ?? Resulting Agency Comment E Procedure Note Hemanth Wagoner MD - 01/07/2021 Patient Name: MATTHEW WRIGHT Dr: Laura Ferraro MD D.O.B: 1970 Exam Date: 01/07/21 0000 Age: 50 Sex: Male MR#: [id number] Loc: RADIOLOGY REPORT Order #[id number] CT Scan CT Abd/Pelvis W IV Contrast Signed EXAM DESCRIPTION: CT Abd/Pelvis W IV Contrast REASON FOR STUDY: two recent bowel obstructions, pain has returned to Rabd. No bowel movement for 3 days with sharp abdominal pain to right side of abdomen and nausea and vomiting. TECHNIQUE: CT scan of the abdomen and pelvis performed with intravenousand without oral contrast using helical scanning technique with dynamic intravenous contrast injection. Reconstructed coronal and sagittal MPRimages reviewed. All images stored on PACS. Automated exposure control was used as a dose optimization technique forthis examination. CONTRAST TYPE/DOSE: 100 cc Optiray 350 injected via right wrist. COMPARISON: 10/08/2020 FINDINGS: LOWER CHEST: No significant pulmonary abnormalities. No effusion. LIVER: Decreased attenuation as seen with fibrofatty changes GALLBLADDER: Surgically absent. BILE DUCTS: No intrahepatic or extrahepatic ductal dilatation. SPLEEN: Normal size. No focal lesions. PANCREAS: No identified cystic or solid masses. No significant calcifications. No adjacent inflammation or peripancreatic fluidcollections. Pancreatic duct not dilated. ADRENALS: Normal. KIDNEYS/URINARY TRACT: No identified significant cystic or solid masses.No visualized stones. No hydronephrosis or hydroureter. Symmetricenhancement. Diffuse thickening of the wall of the urinary bladder is unchangedcompared with 10/08/2020. GI: There is a solitary loop of minimally dilated proximal jejunum inthe left upper quadrant measuring approximately 10 cm. The bowel gradually transitions to normal caliber. Correlate clinically to exclude partial small-bowel obstruction. The remainder of the gut is unremarkable. The appendix is surgically absent. PERITONEUM: No ascites or free air. RETROPERITONEUM: No mass or adenopathy. REPRODUCTIVE: No significant abnormality. VASCULATURE: No abdominal aortic aneurysm. MUSCULOSKELETAL: No significant abnormality. OTHER: Postoperative changes of prior left inguinal hernia repair withmesh graft in place. Small periumbilical hernia containing only fat. IMPRESSION: 1. Mild focal dilatation of a solitary 10 cm loop of proximal jejunum inthe left upper quadrant with gradual transition of the bowel to normalcaliber. The findings are nonspecific. Correlate clinically to exclude partial small-bowel obstruction. The remainder of the gut is normal in caliber. 2. Stable diffuse thickening of the wall of the urinary bladder comparedwith 10/08/2020. 3. Surgical absence of the gallbladder. 4. Fatty infiltration of the liver. 5. Evidence of prior left inguinal hernia repair. Small periumbilicalhernia containing only fat. THIS IS AN ELECTRONICALLY VERIFIED FINAL REPORT 01/07/2021 10:48 PM - Electronically signed by Hemanth Wagoner KT: DILAN Report ID: [id number] Reading Location: [place] [address] REPORT ELECTRONICALLY SIGNED IN OTHER VENDOR SYSTEM Laura Ferraro MD IMG CT PROCEDURES Final R esult documented in this encounter Visit Diagnoses Not on filedocumented in this encounter Care Teams Fender Finisher Relationship Specialty Start Date End Date Nathan Martinez MD PCP - General Family Practice 09/10/20 Monique Garcia MD Referring Physician Gastroenterology 06/11/20 Monique Garcia MD Referring Physician Gastroenterology 06/11/20 documented as of this encounter
--- OUTSIDE RECORDS SUMMARY | 2024-09-03 01:01 | XMS_ITS | Encounter Summary ---
Author Organization [facility] Address [address] [place] [address] Care Team Providers Care Webmethods Consultant Name Role Phone Monique Garcia MD Unavailable Monique Garcia MD Unavailable [phone] Nathan Martinez MD Primary Care Provider [phone] Encounter Details Date Type Department Care Team (Late st Contact Info) Description 01/09/2021 Orders Only [facility] Health Information Management [address] [place] [address] Scanning, Provider Social History Tobacco Use Types [...] Date/Time Associated Diagnosis Comments SCAN - RADIOLOGY/IMAGING 01/09/2021 documented in this encounter Results * SCAN - RADIOLOGY/IMAGING (01/09/2021) Anatomical Region Laterality Modality Other us Provider Scanning Edited Result - Final documented in this encounter Visit Diagnoses Not on filedocumented in this encounter Care Teams Webmethods Consultant Relationship Specialty Start Date End Date Nathan Martinez MD PCP - General Family Practice 09/10/20 Monique Garcia MD Referring Physician Gastroenterology 06/11/20 Monique Garcia MD Referring Physician Gastroenterology 06/11/20 documented as of this encounter
--- OUTSIDE RECORDS SUMMARY | 2024-09-03 01:01 | XMS_ITS | Encounter Summary ---
Author Organization [facility] Address [address] [place] [address] Care Team Providers Care Substation Manager Name Role Phone Monique Garcia MD Unavailable [phone] Monique Garcia MD Unavailable [phone] Nathan Martinez MD Primary Care Provider [phone] Encounter Details Date Type Department Care Team (Late st Contact Info) Description 01/11/2021 Orders Only [facility] Health Information Management [address] [place] [address] Scanning, Provider Social History Tobacco Use Types [...] Date/Time Associated Diagnosis Comments SCAN - RADIOLOGY/IMAGING 01/10/2021 documented in this encounter Results * SCAN - RADIOLOGY/IMAGING (01/10/2021) Anatomical Region Laterality Modality Other us Provider Scanning Edited Result - Final documented in this encounter Visit Diagnoses Not on filedocumented in this encounter Care Teams Substation Manager Relationship Specialty Start Date End Date Nathan Martinez MD PCP - General Family Practice 09/10/20 Monique Garcia MD Referring Physician Gastroenterology 06/11/20 Monique Garcia MD Referring Physician Gastroenterology 06/11/20 documented as of this encounter
--- OUTSIDE RECORDS SUMMARY | 2024-09-03 01:01 | XMS_ITS | Encounter Summary ---
Author Organization [facility] Healthcare Address [address] [place] [address] Care Team Providers Care Hydrology Professor Name Role Phone Monique Garcia MD Unavailable [phone] Monique Garcia MD Unavailable [phone] Nathna Martinez MD Primary Care Provider [phone] Reason for Visit * Reason Comments Abdominal Pain Encounter Details Date Type Department Care Team (Late st Contact Info) Description 09/02/2021 9:59 AM CIGAR SORTER - 09/02/2021 12:19 PM [facility] Emergency [facility] Emergency Department [address] [place] [address] [id number] Constipation, unspecified constipation type (Primary Dx); Hepatic steatosis Discharge Disposition: Discharge to home or self [...] Sign Reading Time Taken Comments Blood Pressure 141/91 09/02/2021 12:00 PM CIGAR SORTER Pulse 84 09/02/2021 12:00 PM CIGAR SORTER Temperature 36.4 ??C (97.6 ??F) 09/02/2021 9:33 AM CS T Respiratory Rate 18 09/02/2021 12:0 0 PM CIGAR SORTER Oxygen Saturation 98% 09/02/2021 12: 00 PM CIGAR SORTER Inhaled Oxygen Concentration - - Weight 95.7 kg (210 lb 15.7 oz) 09/02/2021 9:33 AM CIGAR SORTER Height 180.3 cm (5' 11 ) 09/02/2021 9:33 AM CIGAR SORTER Body Mass Index 29.43 09/02/2021 9:33 AM CIGAR SORTER documented in this encounter Discharge Instructions * Discharge Instructions* Jennifer Watters PA - 09/02/2021 12:05 PM CIGAR SORTER Make sure to drink plenty of fluids. Increase your daily fiber intake to help prevent constipation.You can also take a stool softener as directed to help prevent constipation. You can take MiraLax as directed until you have soft stools. Follow-up with your primary care provider. Return to the ER if you develop any new or worsening symptoms. R SORTER * Attachments The following attachments cannot be sent through Care Everywhere. * Constipation (AfterCare(R) Instructions(ER/ED)) (Martiniquais) documented in this encounter Medications at Time [...] documented in this encounter ED Notes * Jennifer Watters, LAN - 09/02/2021 9:37 AM CST HPI Chief Complaint Patient presents with ??? Abdominal Pain HPI 9:37 AM Erich Allen is a 51 y.o. male with history of DM II, cholecystectomy, appendectomy, multiple hernia repairs, bowel obstruction, partial sigmoidectomy presenting to the ED c/o RLQ pain, onset10 days ago. He describes it as a gnawing pain that doesn't have any modifying factors. He reports associated nausea and diarrhea. He denies a fever, chills, dysuria, hematuria, urinary frequency, decreased urination. He states that he saw his PCP this morning and was referred to the ER by him for further evaluation of the pain. He states that his last BM was yesterday and it was small. He statesthat his current pain feels like the pain he had with a bowel obstruction in the past. Patient History: Past Medical History: Diagnosis Date [...] for this encounter. Current Outpatient Medications: ??? empagliflozin (JARDIANCE) 25 mg tablet ??? escitalopram (LEXAPRO) 20 mg tablet ??? glipiZIDE (GLUCOTROL) 10 mg tablet ??? hyoscyamine ER (LEVBID) 0.375 mg 12 hr tablet ??? metFORMIN (GLUCOPHAGE) 1,000 mg tablet ??? modafiniL (PROVIGIL) 100 mg tablet ??? traZODone (DESYREL) 100 mg tablet ??? triamcinolone (KENALOG) 0.1 % cream Review of Systems Review of Systems All systems reviewed and are neg or non contributory for this patients presentation today other than as stated in the HPI . Physical Exam ED Triage Vitals [09/02/21 0933] Temp Pulse Resp BP SpO2 36.4 ??C (97.6 ??F) 94 22 148/93 99 % Temp src Heart Rate Source Patient Position BP Location FiO2 (%) Oral -- -- -- -- Physical Exam Constitutional: General: He is not in acute distress. Appearance: He is not ill-appearing or toxic-appearing. HENT: Head: Normocephalic. Eyes: Extraocular Movements: Extraocular movements intact. Conjunctiva/sclera: Conjunctivae normal. Pupils: Pupils are equal, round, and reactive to light. Cardiovascular: Rate and Rhythm: Normal rate and regular rhythm. Heart sounds: Normal heart sounds. Pulmonary: Effort: Pulmonary effort is normal. Abdominal: General: Bowel sounds are normal. Palpations: Abdomen is soft. Tenderness: There is abdominal tenderness in the right upper quadrant and right lower quadrant. Musculoskeletal: General: Normal range of motion. Cervical back: Normal range of motion and neck supple. Skin: General: Skin is warm and dry. Neurological: General: No focal deficit present. Mental Status: He is alert and oriented to person, place, and time. Psychiatric: Mood and Affect: Mood normal. Behavior: Behavior normal. Procedures MDM Labs Reviewed URINALYSIS AND REFLEX TO MICROSCOPIC AND CULTURE - Abnormal Result Value Color, ur Straw Clarity, ur Clear Specific gravity, ur 1.010 pH, urine 6.5 Protein, ur ql Negative Glucose, ur ql 3+ (*) Ketones, ur Negative Bilirubin, ur Negative Blood, ur Negative Urobilinogen, ur 0.2 Nitrite, ur Negative Leukocyte esterase, ur Negative UA reflex comment Value: Reflex conditions for microscopic UA and culture not met. Narrative: Urine pH is affected by diet, medications, systemic acid-base disturbances, and renal tubular function. pH may affect urinary stone formation. For example, urine pH below 6.0 may help reduce the tendency for calcium phosphate stones and pH greater than 6.0 may reduce the tendency for uric acid stone formation. Source: [facility] [employer].Last revised 09-03-2017 COMPREHENSIVE METABOLIC PANEL - Abnormal Sodium 132 (*) Potassium, pl 4.3 Chloride 93 (*) CO2 25 Anion gap 14 BUN 12 Creatinine 1.00 Glucose 375 (*) Calcium 9.5 Bilirubin, total 0.2 Protein, pl 7.4 Albumin 4.3 Alk phos 92 ALT 32 AST 20 CBC WITH AUTO DIFFERENTIAL - Abnormal WBC 4.7 Hgb 14.7 Hct 46.3 Plt 257 MPV 9.3 RBC 5.71 MCV 81.1 (*) MCH 25.7 (*) MCHC 31.7 (*) RDW CV 13.8 RDW SD 39.6 NRBC abs 0.00 POCT GLUCOSE DEVICE - Abnormal Glucose, POC 363 (*) Glucose comment 1 Use This Result POCT GLUCOSE DEVICE - Abnormal Glucose, POC 312 (*) Glucose comment 1 Use This Result POCT CREATININE FOR CONTRAST EVALUATION - Normal Creatinine, POC 1.1 LIPASE Lipase 57 DIFFERENTIAL AUTO Neutrophil abs 2.6 Imm gran abs 0.0 Lymphocyte abs 1.7 Monocyte abs 0.3 Eosinophil abs 0.1 Basophil abs 0.0 Neutrophil pct 55.5 Imm gran pct 0.2 Lymphocyte pct 35.6 Monocyte pct 6.8 Eosinophil pct 1.3 Basophil pct 0.6 EGFR eGFR 91 POCT CREATININE FOR CONTRAST EVALUATION Creatinine POC 1.10 POCT GLUCOSE DEVICE POCT GLUCOSE DEVICE POCT GLUCOSE DEVICE CT Abdomen Pelvis W Contrast Final Result BP 141/91 Pulse 84 Temp 36.4 ??C (97.6 ??F) (Oral) Resp 18 Ht 180.3 cm (5' 11 ) Wt 95.7 kg (210 lb 15.7 oz) SpO2 98% BMI 29.43 kg/m?? [facility] ED Course as of 09/02/21 1548 Time: 09/02 1138 Comment: CMP with sodium 132, chloride 93, glucose 375. Lipase is normal. UA with 3+ glucose, otherwise normal. CT ABD pelvis shows 1. ?? Appendix is surgically absent. 2. ?? No acute abnormality or specific finding to explain right lower quadrant pain. 3. ?? Hepatic steatosis. 4. ?? Postsurgical changes are also seen of the cholecystectomy, colonic anastomosis, and left lower abdominal hernia repair. 5. ?? Prominent amount of fecal material the colon suggests constipation. Repeat POC glucose 363. 5 unit insulin ordered. Updated patient on results and plan. By: Jennifer Watters PA This examination was transcribed using the Pipewise voice recognition system without human perinatal tech. In an effort to expedite patient care, this report has not been adjusted for typographical, grammatical, and syntax by a trained medical authorization specialist. Close outpatient follow-up with a low threshold to return has been mandated , concerning symptoms have been emphasized in detail, and this patient expresses understanding Clinical Impression: Constipation, unspecified constipation type Hepatic steatosis Jennifer Watters PA 09/02/21 1548 Cosigned by Humberto Zaragoza MD at 09/02/2021 5:14 PM CIGAR SORTER R SORTER R SORTER * Sravan Fabian RN - 09/02/2021 9:34 AM CST Pt arrived to ER with c/o RLQ abdominal pain, nausea and diarrhea, symptoms started 10 days ago. PMH of of abdominal hernia repair (3 times) and bowel obstruction. Small BM yesterday. Pt is AOx4, up ad jesusita. R SORTER R SORTER documented in this encounter Plan of Treatment Not on file documented as of this encounter Procedures Procedure Name Priority Date/Time Associated Diagnosis Comments POCT GLUCOSE DEVICE Routine 09/02/2021 1 2:00 PM CIGAR SORTER URINALYSIS AND REFLEX TO MICROSCOPIC AND CULTURE STAT 09/02/2021 11:19 AM CIGAR SORTER POCT GLUCOSE DEVICE Routine 09/02/2021 1 1:[address] ABDOMEN PELVIS W CONTRAST ED 09/02/2021 10:21 AM CIGAR SORTER POCT CREATININE FOR CONTRAST EVALUATION Routine 09/02/2021 10:00 AM CIGAR SORTER POCT CREATININE FOR CONTRAST EVALUATION Routine 09/02/2021 9:51 AM CIGAR SORTER EGFR STAT 09/02/2021 9:48 AM CIGAR SORTER DIFFERENTIAL AUTO STAT 09/02/2021 9:4 8 AM CIGAR SORTER CBC WITH AUTO DIFFERENTIAL STAT 09/02/2021 9:48 AM CIGAR SORTER LIPASE STAT 09/02/2021 9:48 AM CIGAR SORTER COMPREHENSIVE METABOLIC PANEL STAT 09/02/2021 9:48 AM CIGAR SORTER documented in this encounter Results * (ABNORMAL) POCT glucose (09/02/2021 12:00 PM CIGAR SORTER) Glucose, POC 312(H) 70 - 199 mg/dL TERESA RAYMUNDO Comment:Testing performed by : [facility] [address] [place] [address]., [address] Glucose comment 1 Use This Result TERESA RAYMUNDO Comment:Testing performed by : [address] [address] Blood 09/02/2021 12:0 0 PM CIGAR SORTER 09/02/2021 12:00 PM CIGAR SORTER us Notinfile Unknown LAB POCT ORDERABLES - DEVICE F inal Result TERESA RAYMUNDO [facility] Department of Laboratories [place], [place] [id number] * (ABNORMAL) Urinalysis reflex to microscopic and culture Urine (09/02/2021 11:19 AM CIGAR SORTER) Color, ur Straw Yellow TERESA RAYMUNDO Comment:Testing performed by : [address] [address] Clarity, ur Clear Clear TERESA Comment:Testing performed by : [address] [address] Specific gravity, ur 1.010 1.003 - 1.030 TERESA Comment:Testing performed by : [address] [address] pH, urine 6.5 TERESA Comment:Testing performed by : [address] [address] Protein, ur ql Negative Negative TERESA Comment:Testing performed by : [address] [address] Glucose, ur ql 3+(A) Negative TERESA Comment:Testing performed by : [address] [address] Ketones, ur Negative Negative TERESA Comment:Testing performed by : [address] [address] Bilirubin, ur Negative Negative TERESA Comment:Testing performed by : [facility], [address] [place] [address], [place]., [address] Blood, ur Negative Negative TERESA Comment:Testing performed by : [address], [place]., [address] Urobilinogen, ur 0.2 <2.0 mg/dL TERESA Comment:Testing performed by : [address], [place]., [address] Nitrite, ur Negative Negative TERESA Comment:Testing performed by : [address], [place]., [address] Leukocyte esterase, ur Negative Negative TERESA Comment:Testing performed by : [address], [place]., [address] UA reflex comment Reflex conditions for microscopic UA and culture not met. TERESA Comment:Testing performed by : [address], [place]., [address] Urine 09/02/2021 11:1 9 AM CIGAR SORTER 09/02/2021 11:24 AM CIGAR SORTER Narrative TERESA - 09/02/2021 11:34 AM CIGAR SORTER ?? Urine pH is affected by diet, medications, systemic acid-base disturbances, and renal tubular function. ??pH may affect urinary stone formation. ??For example, urine pH below 6.0 may help reduce the tendency for calcium phosphate stones and pH greater than 6.0 may reduce the tendency for uric acid stone formation. Source: [facility] [employer]. Last revised 09-03-2017 us Jennifer MONTENEGRO LAB MICROBIOLOGY - GENERAL ORDERABLES Final Result TERESA [address] [facility] Department [place] [address] * (ABNORMAL) POCT glucose (09/02/2021 11:05 AM CIGAR SORTER) [facility] Glucose, POC 363(H) 70 - 199 mg/dL TERESA Comment:Testing performed by : [address], [place]., [address] Glucose comment 1 Use This Result TERESA RAYMUNDO Comment:Testing performed by : [facility], [address] [place] [address], [place]., [address] Blood 09/02/2021 11:0 5 AM CIGAR SORTER 09/02/2021 11:05 AM CIGAR SORTER us Notinfile Unknown LAB POCT ORDERABLES - DEVICE F inal Result TERESA RAYMUNDO [address] [facility] Department [place] [address] * CT Abdomen Pelvis W Contrast (09/02/2021 10:21 AM CIGAR SORTER) Anatomical Region Laterality Modality Body N/A Computed Tomogra phy 09/02/2021 10:3 1 AM CIGAR SORTER Narrative 09/02/2021 10:39 AM CIGAR SORTER EXAM DESCRIPTION: ?? CT ABDOMEN PELVIS W CONTRAST REASON FOR STUDY: ?? RLQ abdominal pain, appendicitis suspected (Age => 13y), RLQ pain, history of bowel obstruction. states current pain feels similar ?? Pt arrived to ER with c/o RLQ abdominal pain, nausea and diarrhea, symptoms started 10 days ago. PMH of of abdominal hernia repair (3 times) and bowel obstruction. Small BM yesterday. Pt is AOx4, up ad jesusita. ?? TECHNIQUE: CT scan of the abdomen and pelvis performed with intravenous and ?? without ??oral contrast using helical scanning technique with dynamic intravenous contrast injection. Reconstructed coronal and sagittal MPR images reviewed. All images stored on PACS. Automated exposure control was used as a dose optimization technique for this examination. CONTRAST TYPE/DOSE: ?? 100mL of IOVERSOL 350 MG IODINE/ML INTRAVENOUS SYRINGE ?? injected via ?? intravenous COMPARISON: 06/17/2021. FINDINGS: LOWER CHEST: ?? Right lower lobe atelectasis. ??There is no pleural effusion. LIVER: ?? Diffuse hepatic steatosis is noted. ??No focal lesion. GALLBLADDER: ?? No gallstones or inflammatory change. BILE DUCTS: ?? No biliary ductal dilation. SPLEEN: ?? Spleen size is normal. ??There is no focal lesion. PANCREAS: ?? No pancreatic mass or inflammatory change. ??There is a low-attenuation lesion of pancreatic uncinate process which is unchanged, this is 0.5 cm, this is -31 Hounsfield units and likely either a small lipoma or intercalated fat. ?? ADRENALS: ?? Normal. KIDNEYS/URINARY TRACT: ?? No renal calculi. ??No hydronephrosis or hydroureter. ?Fluid is present urinary bladder. ??There is no urinary bladder mass or calculus. GI: ?? There are postsurgical changes with an apparent colocolonic anastomosis of the sigmoid colon. ??There is no bowel obstruction. ??Moderate fecal material in the colon. ??The appendix is surgically absent. ??The terminal ileum is normal. ??Small fat containing umbilical hernia. ??The stomach and duodenum are normal. ??No abnormal bowel wall thickening is identified. PERITONEUM: ?? No ascites or free air is seen. ??There is no mesenteric mass or lymphadenopathy. ??Postsurgical changes are seen of the left side of the abdominal wall from previous hernia repair at the region of the left lateral aspect of the rectus abdominus muscle along linea semilunaris and posterior to the left leaf of the rectus abdominus muscle extending into the left inguinal region. RETROPERITONEUM: ?? No retroperitoneal mass or lymphadenopathy. REPRODUCTIVE: ?? No significant abnormalities. VASCULATURE: ?? Abdominal aorta is nonaneurysmal. MUSCULOSKELETAL: ?? Bone windows demonstrate no acute or aggressive osseous abnormality. OTHER: ?? No other abnormality. IMPRESSION: ?? 1. ?? Appendix is surgically absent. 2. ?? No acute abnormality or specific finding to explain right lower quadrant pain. 3. ?? Hepatic steatosis. 4. ?? Postsurgical changes are also seen of the cholecystectomy, colonic anastomosis, and left lower abdominal hernia repair. 5. ?? Prominent amount of fecal material the colon suggests constipation. THIS IS AN ELECTRONICALLY VERIFIED FINAL REPORT 09/02/2021 10:39 AM - Electronically signed by ??Max Ocampo M.D. CH: SARAH D: ??09/02/2021 10:39 AM T: ??09/02/2021 10:39 AM Report ID: [id number] Reading Location: ??[id number] Procedure Note Max Ocampo Jr., MD - 09/02/2021 EXAM DESCRIPTION: CT ABDOMEN PELVIS W CONTRAST REASON FOR STUDY: RLQ abdominal pain, appendicitis suspected (Age =>13y), RLQ pain, history of bowel obstruction. states current pain feels similar Pt arrived to ER with c/o RLQ abdominal pain, nausea and diarrhea,symptoms started 10 days ago. PMH of of abdominal hernia repair (3 times) and bowel obstruction. Small BM yesterday. Pt is AOx4, up ad jesusita. TECHNIQUE: CT scan of the abdomen and pelvis performed with intravenousand without oral contrast using helical scanning technique with dynamic intravenous contrast injection. Reconstructed coronal and sagittal MPRimages reviewed. All images stored on PACS. Automated exposure control was used as a dose optimization technique forthis examination. CONTRAST TYPE/DOSE: 100mL of IOVERSOL 350 MG IODINE/ML INTRAVENOUSSYRINGE injected via intravenous COMPARISON: 06/17/2021. FINDINGS: LOWER CHEST: Right lower lobe atelectasis. There is no pleuraleffusion. LIVER: Diffuse hepatic steatosis is noted. No focal lesion. GALLBLADDER: No gallstones or inflammatory change. BILE DUCTS: No biliary ductal dilation. SPLEEN: Spleen size is normal. There is no focal lesion. PANCREAS: No pancreatic mass or inflammatory change. There is a low-attenuation lesion of pancreatic uncinate process which is unchanged,this is 0.5 cm, this is -31 Hounsfield units and likely either a small lipomaor intercalated fat. ADRENALS: Normal. KIDNEYS/URINARY TRACT: No renal calculi. No hydronephrosis orhydroureter. Fluid is present urinary bladder. There is no urinary bladder mass or calculus. GI: There are postsurgical changes with an apparent colocolonicanastomosis of the sigmoid colon. There is no bowel obstruction. Moderate fecalmaterial in the colon. The appendix is surgically absent. The terminal ileum is normal. Small fat containing umbilical hernia. The stomach and duodenumare normal. No abnormal bowel wall thickening is identified. PERITONEUM: No ascites or free air is seen. There is no mesenteric massor lymphadenopathy. Postsurgical changes are seen of the left side of the abdominal wall from previous hernia repair at the region of the leftlateral aspect of the rectus abdominus muscle along linea semilunaris andposterior to the left leaf of the rectus abdominus muscle extending into the leftinguinal region. RETROPERITONEUM: No retroperitoneal mass or lymphadenopathy. REPRODUCTIVE: No significant abnormalities. VASCULATURE: Abdominal aorta is nonaneurysmal. MUSCULOSKELETAL: Bone windows demonstrate no acute or aggressive osseous abnormality. OTHER: No other abnormality. IMPRESSION: 1. Appendix is surgically absent. 2. No acute abnormality or specific finding to explain right lowerquadrant pain. 3. Hepatic steatosis. 4. Postsurgical changes are also seen of the cholecystectomy, colonic anastomosis, and left lower abdominal hernia repair. 5. Prominent amount of fecal material the colon suggests constipation. THIS IS AN ELECTRONICALLY VERIFIED FINAL REPORT 09/02/2021 10:39 AM - Electronically signed by Max Ocampo M.D. CH: SARAH Report ID: [id number] Reading Location: [place] [address] PROCEDURES F inal Result * POCT creatinine for contrast evaluation (09/02/2021 10:00 AM CIGAR SORTER) Pathologist [facility] Creatinine, POC 1.1 0.6 - 1.3 mg/dL Blood specimen (specimen) 09/02/2021 10:00 AM CIGAR SORTER Jennifer MONTENEGRO POINT OF CARE TEST ORDERABLES Final Result * POCT creatinine for contrast evaluation (09/02/2021 9:51 AM CIGAR SORTER) [facility] Creatinine POC 1.10 0.80 - 1.30 mg/dL TERESA RAYMUNDO Comment:Testing performed by : [facility], [address] [place] [address]., [address] Blood 09/02/2021 9:51 AM CIGAR SORTER 09/02/2021 9:51 AM CIGAR SORTER us Notinfile Unknown POINT OF CARE TEST ORDERABLES Final Result TERESA RAYMUNDO [address] [facility] Department [place] [address] * eGFR (09/02/2021 9:48 AM CIGAR SORTER) [facility] eGFR 91 mL/min/1. 73 m2 TERESA RAYMUNDO [...] was last reviewed 2021. Testing performed by: [facility], [address] [place] [address]., [address] Blood 09/02/2021 9:48 AM CIGAR SORTER 09/02/2021 9:53 AM CIGAR SORTER us Jennifer MONTENEGRO LAB BLOOD ORDERABLE S Final Result TERESA [address] [facility] Department [place] [address] * Differential, auto (09/02/2021 9:48 AM CIGAR SORTER) Pathologist [facility] Neutrophil abs 2.6 1.7 - 6.5 K/cumm TERESA Comment:Testing performed by : [address] [address] Imm gran abs 0.0 0.0 - 0.1 K/cumm CERNER Comment:Testing performed by : [address], [place]., [address] Lymphocyte abs 1.7 0.8 - 3.3 K/cumm CERLEEANNE Comment:Testing performed by : [address] [address] Monocyte abs 0.3 0.2 - 0.8 K/cumm CERLEEANNE Comment:Testing performed by : [address] [address] Eosinophil abs 0.1 0.0 - 0.5 K/cumm [facility] Comment:Testing performed by : [address] [address] Basophil abs 0.0 0.0 - 0.1 K/cumm [facility] Comment:Testing performed by : [address] [address] Neutrophil pct 55.5 % [facility] Comment: Interpretive Data Percent cell count reference ranges are not reported, since discordance with absolute values may lead to misinterpretation of CBC data. Current Interpretive Data was last revised on 2017. Testing performed by: [address] [address] Imm gran pct 0.2 % [facility] Comment: Interpretive Data Percent cell count reference ranges are not reported, since discordance with absolute values may lead to misinterpretation of CBC data. Current Interpretive Data was last revised on 2017. Testing performed by: [address] [address] Lymphocyte pct 35.6 % [facility] Comment: Interpretive Data Percent cell count reference ranges are not reported, since discordance with absolute values may lead to misinterpretation of CBC data. Current Interpretive Data was last revised on 2017. Testing performed by: [address] [address] Monocyte pct 6.8 % [facility] Comment: Interpretive Data Percent cell count reference ranges are not reported, since discordance with absolute values may lead to misinterpretation of CBC data. Current Interpretive Data was last revised on 2017. Testing performed by: [address] [place] [address] Eosinophil pct 1.3 % TERESA Comment: Interpretive Data Percent cell count reference ranges are not reported, since discordance with absolute values may lead to misinterpretation of CBC data. Current Interpretive Data was last revised on 2017. Testing performed by: [address] [address] Basophil pct 0.6 % TERESA Comment: Interpretive Data Percent cell count reference ranges are not reported, since discordance with absolute values may lead to misinterpretation of CBC data. Current Interpretive Data was last revised on 2017. Testing performed by: [address] [address] Blood 09/02/2021 9:48 AM CIGAR SORTER 09/02/2021 9:53 AM CIGAR SORTER Jennifer MONTENEGRO LAB BLOOD ORDERABLE S Final Result Performing Organization Address City/[facility]/ZIP Co de Phone Number [address] [employer] [place] [address] * Lipase (09/02/2021 9:48 AM CIGAR SORTER) Lipase 57 10 - 99 Units/L TERESA Comment:Testing performed by : [address] [address] Blood 09/02/2021 9:48 AM CIGAR SORTER 09/02/2021 9:53 AM CIGAR SORTER Jennifer MONTENEGRO LAB BLOOD ORDERABLE S Final Result [address] [place] [address] * (ABNORMAL) CBC with auto differential (09/02/2021 9:48 AM CIGAR SORTER) WBC 4.7 3.8 - 9.9 K/cumm TERESA RAYMUNDO Comment:Testing performed by : [address] [address] Hgb 14.7 13.0 - 17.5 g/dL TERESA Comment:Testing performed by : [address] [address] Hct 46.3 38.9 - 50.3 % TERESA Comment:Testing performed by : [address] [address] Plt 257 150 - 400 K/cumm TERESA Comment:Testing performed by : [address] [address] MPV 9.3 9.1 - 12.3 fL [facility] Comment:Testing performed by : [address] [address] RBC 5.71 4.30 - 5.80 M/cumm [facility] Comment:Testing performed by : [address] [address] MCV 81.1(L) 81.3 - 96.4 fL [facility] Comment:Testing performed by : [address] [address] MCH 25.7(L) 27.1 - 33.3 pg [facility] Comment:Testing performed by : [address] [address] MCHC 31.7(L) 32.3 - 35.7 g/dL [facility] Comment:Testing performed by : [address] [address] RDW CV 13.8 11.1 - 14.9 % [facility] Comment:Testing performed by : [address] [address] RDW SD 39.6 35.7 - 48.1 fL [facility] Comment:Testing performed by : [address] [address] NRBC abs 0.00 0.00 - 0.01 K/cumm [facility] Comment:Testing performed by : [address] [address] Blood 09/02/2021 9:48 AM CIGAR SORTER 09/02/2021 9:53 AM CIGAR SORTER us Jennifer MONTENEGRO LAB BLOOD ORDERABLE S Final Result [facility] [address] [facility] Department [place] [address] * (ABNORMAL) Comprehensive metabolic panel (09/02/2021 9:48 AM CIGAR SORTER) Sodium 132(L) 135 - 145 mmol/L [facility] Comment:Testing performed by : [address] [address] Potassium, pl 4.3 3.3 - 4.9 mmol/L [facility] Comment:Testing performed by : [address] [address] Chloride 93(L) 97 - 110 mmol/L [facility] Comment:Testing performed by : [address] [address] CO2 25 22 - 32 mmol/L [facility] Comment:Testing performed by : [address] [address] Anion gap 14 2 - 15 mmol/L [facility] Comment:Testing performed by : [address] [address] BUN 12 8 - 25 mg/dL [facility] Comment:Testing performed by : [address] [address] Creatinine 1.00 0.80 - 1.30 mg/dL [facility] Comment:Testing performed by : [address] [address] Glucose 375(H) 70 - 199 mg/dL [facility] Comment: Interpretive Data Fasting glucose >/= 126 [...] was last revised 2017. Testing performed by: [facility], [address] [place] [address], [address] Calcium 9.5 8.5 - 10.3 mg/dL [facility] Comment:Testing performed by : [address] [address] Bilirubin, total 0.2 0.1 - 1.2 mg/dL [facility] Comment:Testing performed by : [address], [address] Protein, pl 7.4 6.5 - 8.5 g/dL [facility] Comment:Testing performed by : [address] [address] Albumin 4.3 3.5 - 5.0 g/dL [facility] Comment:Testing performed by : [address], [address] Alk phos 92 40 - 130 Units/L [facility] Comment:Testing performed by : [address] [address] ALT 32 7 - 55 Units/L [facility] Comment:Testing performed by : [address], [address] AST 20 10 - 50 Units/L [facility] Comment:Testing performed by : [address] [address] Blood 09/02/2021 9:48 AM CIGAR SORTER 09/02/2021 9:53 AM CIGAR SORTER us Jennifer MONTENEGRO LAB BLOOD ORDERABLE S Final Result [facility] [facility] Department [place] [address] documented in this encounter Visit Diagnoses Diagnosis Constipation, unspecified constipation type- Primary Hepatic steatosis Other chronic nonalcoholic liver disease documented in this encounter Administered Medications Inactive Administered Medications - up to 3 most recent administrations Medication Order MAR Action Action Date Dose Rate Site insulin regular (HumuLIN R, NovoLIN R) 100 unit/mL injection 5 Units 5 Units, intravenous, Once, On Thu09/02/21 at 1111, For 1 dose Given 09/02/2021 11:27 AM CIGAR SORTER 5 Units ioversoL (OPTIRAY 350) syringe syringe 100 mL 100 mL, intravenous, Once in imaging, contrast, Starting on Thu09/02/21 at 1019, For 1 dose Contrast Given 09/02/2021 10:20 AM CIGAR SORTER 100 mL Left Antecubital ondansetron (ZOFRAN) injection 4 mg 4 mg, intravenous, Administer over 2 Minutes, Once, On Thu09/02/21 at 0939, For 1 dose Given 09/02/2021 10:28 AM CIGAR SORTER 4 mg sodium chloride 0.9% bolus 1,000 mL 1,000 mL, intravenous, Once, On Thu09/02/21 at 0939, For 1 dose New Bag 09/02/2021 10:29 AM CIGAR SORTER 1,000 mL sodium chloride 0.9% flush 125 mL 125 mL, intravenous, Once in imaging, line care, Starting on Thu09/02/21 at 1019, For 1 dose Given 09/02/2021 10:20 AM CIGAR SORTER 125 mL Left Antecubital documented in this encounter Active and Recently Administered Medications Times are shown in CIGAR SORTER. Scheduled Medication Order 08/31/2021 09/01/2021 09/02/2021 insulin regular (HumuLIN R, NovoLIN R) 100 unit/mL injection 5 Units (COMPLETED)(Linked Group 1) 5 Units, intravenous, Once, On Thu09/02/21 at 1111, For 1 dose 1127 (Given - Provid er: Jennifer Clarke RN) ondansetron (ZOFRAN) injection 4 mg (COMPLETED) 4 mg, intravenous, Administer over 2 Minutes, Once, On Thu09/02/21 at 0939, For 1 dose 1028 (Given - Provid er: Manda Gunn RN) sodium chloride 0.9% bolus 1,000 mL (COMPLETED) 1,000 mL, intravenous, Once, On Thu09/02/21 at 0939, For 1 dose 1029 (New Bag - Prov ider: Manda Gunn RN)1123 (Stopped - Provider: Anna Fountain RN) PRN Medication Order 08/31/2021 09/01/2021 09/02/2021 ioversoL (OPTIRAY 350) syringe syringe 100 mL (COMPLETED) 100 mL, intravenous, Once in imaging, contrast, Starting on Thu09/02/21 at 1019, For 1 dose 1020 (Contrast Given - Provider: Ashlyn Pappas, RT) sodium chloride 0.9% flush 125 mL (COMPLETED) 125 mL, intravenous, Once in imaging, line care, Starting on Thu09/02/21 at 1019, For 1 dose 1020 (Given - Provid er: RT Remy) Linked Groups Order Group 1: insulin regular (HumuLIN R, NovoLIN R) 100 unit/mL injection 5 Units (COMPLETED)Jump to med 5 Units, intravenous, Once, On Thu09/02/21 at 1111, For 1 dose And POCT glucose (CANCELED) Once (Routine), On Thu09/02/21 at 1111, For 1 occurrence, 1 hour after administering IV push Insulin Regular. Communicate result with MD. And POCT glucose (CANCELED) Once (Routine), On Thu09/02/21 at 1111, For 1 occurrence, 3 hours after administering IV push Insulin Regular. Communicate result with MD. documented in this encounter Orders Lab Orders Without Results Count Last Ordered D ate First Ordered Date POCT GLUCOSE DEVICE 1 09/02/2021 documented in this encounter Care Teams Hydrology Professor Relationship Specialty Start Date End Date Nathan Martinez MD PCP - General Family Practice 09/10/20 Monique Garcia MD Referring Physician Gastroenterology 06/11/20 Monique Garcia MD Referring Physician Gastroenterology 06/11/20 documented as of this encounter
--- OUTSIDE RECORDS SUMMARY | 2024-09-03 01:01 | XMS_ITS | Encounter Summary ---
Author Organization [facility] Address [address] [address] Care Team Providers Care Children'S Aide Name Role Phone Monique Garcia MD Unavailable [phone] Monique Garcia MD Unavailable [phone] Nathan Martinez MD Primary Care Provider [phone] Reason for Visit * Reason Comments Follow-up Two week follow up r /t RLQ pain, abdominal pain. Levbid 0.375 mg BID prn started at last office visit. Reports little improvement with Levbid. Denies side effects. Continues to c/o constant RLQ pain. Encounter Details Date Type Department Care Team (Latest Contact Info) Description 09/16/2021 9:00 AM TRANSVERSE ABDOMINAL MUSCLE SURGEON Office Visit [facility] Primary Care [address] [place] [address] Nathan Martinez MD [address] [place], [place] [id number] Chronic abdominal pain (Primary Dx); Type 2 diabetes mellitus with hyperglycemia, without long-term current use of insulin ([facility]/HCC) (HCC); Attention deficit disorder (ADD) without hyperactivity Social [...] Sign Reading Time Taken Comments Blood Pressure 118/78 09/16/2021 9:17 AM TRANSVERSE ABDOMINAL MUSCLE SURGEON Pulse 82 09/16/2021 9:17 AM TRANSVERSE ABDOMINAL MUSCLE SURGEON Temperature 35.7 ??C (96.3 ??F) 09/16/2021 9:17 AM CS T Respiratory Rate 20 09/16/2021 9:17 AM TRANSVERSE ABDOMINAL MUSCLE SURGEON Oxygen Saturation 98% 09/16/2021 9:17 AM TRANSVERSE ABDOMINAL MUSCLE SURGEON Inhaled Oxygen Concentration - - Weight 95.8 kg (211 lb 1.6 oz) 09/16/2021 9:17 A M TRANSVERSE ABDOMINAL MUSCLE SURGEON Height 180.3 cm (5' 10.98 ) 09/16/2021 9:[address] Body Mass Index 29.46 09/16/2021 9:17 AM TRANSVERSE ABDOMINAL MUSCLE SURGEON documented in this encounter Ordered Prescriptions Prescription Sig Dispense Quantity Refills Last Filled Start Date End Date dulaglutide (TRULICITY) 0.75 mg/0.5 mL pen injector Inject 0.5 mL (0.75 mg total) under the skin every 7 days 10 mL 3 09/16/2021 12/02/2021 documented in this encounter Progress Notes * Nathan Martinez MD - 09/16/2021 9:00 AM CST Subjective/Objective Patient ID: Erich Allen is a 51 y.o. male. Chief Complaint Follow-up (Two week follow up r/t RLQ pain, abdominal pain. Levbid 0.375 mg BID prn started at lastoffice visit. Reports little improvement with Levbid. Denies side effects. Continues to c/o constant RLQ pain. ) Vitals BP 118/78 (BP Location: Left arm, Patient Position: Sitting) Pulse 82 Temp (!) 35.7 ??C (96.3 ??F) (Skin) Resp 20 Ht 180.3 cm (5' 10.98 ) Wt 95.8 kg (211 lb 1.6 oz) SpO2 98% BMI 29.46 kg/m?? PHQ Screening Over the last 2 [...] History of Present Illness Patient last seen 09/02/2021. He had chronic abdominal pain described as gnawing in character. Rated is 7/10. Some loose stools occasionally bloody. KUB was normal. History of diverticulitis so he was given Cipro and Flagyl. CBC was unremarkable. All labs normal including lipase. CT of the abdomen pelvis showed prior cholecystectomy. Gallbladder and appendix absent. Some evidence for fatty liver.Patient was thought to have a irritable bowel syndrome and given Levbid to try 0.375 mg b.i.d.. 2. Patient on modafinil off-label for attention deficit disorder. No side effects or signs of toxicity.This helps with attention, focus, and task completion. 3. Diabetes with blood sugar over 300 earlier this month. Last A1c done 06/17/2021 was 8.9.. Patient on metformin a 1000 mg b.i.d. and [id number] mg daily. Glipizide 10 mg had been started in May. Review of Systems Gen.: No fever, night [...] pain (R10.9, G89.29) (Primary) Assessment & Plan: Try peppermint oil pill daily. Discontinue Levbid. Refer to GI. Needs colonoscopy. Orders: - Ambulatory referral to Gastroenterology; Future Type 2 diabetes mellitus with hyperglycemia, without long-term current use of insulin ([facility]) (HCC) (E11.65) Assessment & Plan: A1c today. Diabetes needing better control. No hypoglycemic symptoms. Metformin, Jardiance, and glipizide daily. No significant improvement and will add Trulicity 0.75 mg weekly Orders: - POCT hemoglobin A1c Attention deficit disorder (ADD) without hyperactivity (F98.8) Assessment & Plan: Continue modafinil at same dosage. Well controlled. No signs of toxicity and patient understands this is off-label treatment Other orders - dulaglutide (TRULICITY) 0.75 mg/0.5 mL pen injector; Inject 0.5 mL (0.75 mg total) under the skinevery 7 days SVERSE ABDOMINAL MUSCLE SURGEON documented in this encounter Miscellaneous Notes * Assessment & Plan Note - Nathan Martinez MD - 09/16/2021 9:44 AM TRANSVERSE ABDOMINAL MUSCLE SURGEON Associated Problem(s): Chronic abdominal pain Try peppermint oil pill daily. Discontinue Levbid. Refer to GI. Needs colonoscopy. SVERSE ABDOMINAL MUSCLE SURGEON * Assessment & Plan Note - Nathan Martinez MD - 09/13/2021 9:27 AM TRANSVERSE ABDOMINAL MUSCLE SURGEON Associated Problem(s): ADD (attention deficit disorder) Continue modafinil at same dosage. Well controlled. No signs of toxicity and patient understands this is off-label treatment SVERSE ABDOMINAL MUSCLE SURGEON * Assessment & Plan Note - Nathan Martinez MD - 09/13/2021 9:26 AM TRANSVERSE ABDOMINAL MUSCLE SURGEON Associated Problem(s): Type 2 diabetes mellitus with hyperglycemia, without long-term current use of insulin ([facility]) A1c today. Diabetes needing better control. No hypoglycemic symptoms. Metformin, Jardiance, and glipizide daily. No significant improvement and will add Trulicity 0.75 mg weekly SVERSE ABDOMINAL MUSCLE SURGEON SVERSE ABDOMINAL MUSCLE SURGEON documented in this encounter Plan of Treatment Not on file documented as of this encounter Procedures Procedure Name Priority Date/Time Associated Diagnosis Comments POCT HEMOGLOBIN A1C Routine 09/16/2021 9 :30 AM TRANSVERSE ABDOMINAL MUSCLE SURGEON Type 2 diabetes mellitus with hyperglycemia, without long-term current use of insulin ([facility]) ([facility]) documented in this encounter Results * (ABNORMAL) POCT hemoglobin A1c (09/16/2021 9:30 AM TRANSVERSE ABDOMINAL MUSCLE SURGEON) Hemoglobin A1C, POC 9.2 Blood specimen (specimen) 09/16/2021 9:30 AM TRANSVERSE ABDOMINAL MUSCLE SURGEON Nathan Martinez MD POINT OF CARE TEST ORDERAB LES Final Result documented in this encounter Visit Diagnoses Diagnosis Chronic abdominal pain- Primary Abdominal pain, unspecified site Type 2 diabetes mellitus with hyperglycemia, without long-term current use of insulin (HCC) Attention deficit disorder (ADD) without hyperactivity documented in this encounter Care Teams Children'S Aide Relationship Specialty Start Date End Date Nathan Martinez MD PCP - General Family Practice 09/10/20 Monique Garcia MD Referring Physician Gastroenterology 06/11/20 Monique Garcia MD Referring Physician Gastroenterology 06/11/20 documented as of this encounter
--- OUTSIDE RECORDS SUMMARY | 2024-09-03 01:01 | XMS_ITS | Encounter Summary ---
Author Organization [facility] Address [address] [facility] [address] [place] [address] Care Team Providers Care Personal Fitness Trainer Name Role Phone Monique Garcia MD Unavailable Monique Garcia MD Unavailable [phone] Nathan Martinez MD Primary Care Provider [phone] Encounter Details Date Type Department Care Team (Late st Contact Info) Description 10/19/2021 Orders Only [facility] Health Information Management [address] [place] [address] Scanning, Provider Social History Tobacco Use Types [...] Date/Time Associated Diagnosis Comments SCAN - RADIOLOGY/IMAGING 10/19/2021 documented in this encounter Results * SCAN - RADIOLOGY/IMAGING (10/19/2021) Anatomical Region Laterality Modality Other us Provider Scanning Final Result documented in this encounter Visit Diagnoses Not on filedocumented in this encounter Care Teams Personal Fitness Trainer Relationship Specialty Start Date End Date Nathan Martinez MD PCP - General Family Practice 09/10/20 Monique Garcia MD Referring Physician Gastroenterology 06/11/20 Monique Garcia MD Referring Physician Gastroenterology 06/11/20 documented as of this encounter
--- OUTSIDE RECORDS SUMMARY | 2024-09-03 01:02 | XMS_ITS | Encounter Summary ---
Author Organization [facility] Address [address] [place] [address] [address] [place] [address] Care Team Providers Care Advertising Columnist Name Role Phone Monique Garcia MD Unavailable [phone] Monique Garcia MD Unavailable [phone] April Gresham NP Primary Care Provider [phone] Reason for Visit * Reason Onset Date Comments Covid-19 Home Monitoring 08/24/2020 Encounter Details Date Type Department Care Team (Late st Contact Info) Description 08/24/2020 Telephone [facility] Accountable Care Organization [address] [place] [address] Tami Rooney MA [address] [place] [address] [address] [place] [address] Covid-19 Home Monitoring Social History Tobacco Use Types Packs/Day Years Used Date Smoking Tobacco: Never Smokeless Tobacco: Current Chew Comments:advised to quit 1 c an of chew per week since 1994 Alcohol Use Standard Drinks/Week Comments Not Currently 0 (1 standard drink = 0.6 oz pur e alcohol) PHQ-2 Answer Date Recorded PHQ-2 Score 0 06/11/2020 Sex and Gender Information Value Date Recorded Sex Assigned at Not on file Legal Sex Male 2:58 AM CDT Gender Identity Male 03/10/2022 6:57 PM CDT Sexual Orientation Not on file documented as of this encounter Miscellaneous Notes * Telephone Encounter - Tami Rooney MA - 08/24/2020 11:27 AM CST This patient is not currently a good candidate for our COVID-19 home monitoring program because pt admitted. By saving a note using this template, the patient will drop off our home monitoring candidate reports for two weeks. If we still consider them to have an active case of COVID-19 at that time, we willreevaluate them for home monitoring. ICAL CARE NURSE documented in this encounter Plan of Treatment Not on file documented as of this encounter Visit Diagnoses Not on filedocumented in this encounter Additional Health Concerns Infection Onset Date Last Indicated Resolved Time COVID19 08/23/2020 08/23/2020 09/06/2020 3:07 AM CRITICAL CARE NURSE documented as of this encounter Care Teams Advertising Columnist Relationship Specialty Start Date End Date April Gresham NP PCP - General 08/17/20 09/09/20 Monique Garcia MD Referring Physician Gastroenterology 06/11/20 Monique Garcia MD Referring Physician Gastroenterology 06/11/20 documented as of this encounter
--- OUTSIDE RECORDS SUMMARY | 2024-09-03 01:02 | XMS_ITS | Encounter Summary ---
Author Organization [facility] Address [address] [place] [address] Phone Care Team Providers Care Biophysics Scientist Name Role Phone Monique Garcia MD Unavailable [phone] Monique Garcia MD Unavailable [phone] Nathan Martinez MD Primary Care Provider [phone] Encounter Details Date Type Department Care Team (Late st Contact Info) Description 11/07/[address] [facility] Yousif Weston II, MD [address] [place] [address] Deviated nasal septum (Primary Dx); Hypertrophy of both inferior nasal turbinates Social History Tobacco Use Types Packs/Day Years [...] points, staff should administer the PHQ-9) 0 10/08/2020 Sex and Gender Information Value Date Recorded Sex Assigned at Not on file Legal Sex Male 2:58 AM CDT Gender Identity Male 03/10/2022 6:57 PM CDT Sexual Orientation Not on file documented as of this encounter Progress Notes * Yousif Weston II, MD - 11/07/2020 8:05 PM CDT Please see Erich Allen scanned document of dictated operative note from [facility] on 11/07/20 documented in this encounter Plan of Treatment Not on file documented as of this encounter Visit Diagnoses Diagnosis Deviated nasal septum- Primary Hypertrophy of both inferior nasal turbinates documented in this encounter Additional Health Concerns Infection Onset Date Last Indicated Resolved Time COVID: Recovered Comment:Added based on recent COVID infection. 09/06/2020 09/07/2020 01/04/2021 3:05 AM C DT documented as of this encounter Care Teams Biophysics Scientist Relationship Specialty Start Date End Date Nathan Martinez MD PCP - General Family Practice 09/10/20 Monique Garcia MD Referring Physician Gastroenterology 06/11/20 Monique Garcia MD Referring Physician Gastroenterology 06/11/20 documented as of this encounter
--- OUTSIDE RECORDS SUMMARY | 2024-09-03 01:02 | XMS_ITS | Encounter Summary ---
Author Organization [facility] Address [address] [place] [address] Phone Care Team Providers Care Mechanical Engineering Specialist Name Role Phone Monique Garcia MD Unavailable [phone] Monique Garcia MD Unavailable [phone] Nathan Martinez MD Primary Care Provider [phone] Reason for Visit * Reason Comments Nasal Congestion * Consultation (Routine) - Closed Specialty Diagnoses / Procedures Referred By Hugo dang Referred To Contact Otolaryngology Diagnoses Nasal polyp Nathan Martinez MD Phone: tel: fax: Smith Rain MD [address] DEPT [place] [address] Phone: tel: fax: Referral ID Status Reason Start Date Expiration Date V isits Requested Visits Authorized [id number] Closed Specialty Services Required 09/10/2020 10/10/2021 1 1 Encounter Details Date Type Department Care Team (Late st Contact Info) Description 10/08/2020 8:30 AM DISTRICT SALES MANAGER Office Visit [facility] Otolaryngology [address] [place] [address] Yousif Weston II, MD [address] [place] [address] Deviated nasal septum (Primary Dx); Nasal polyp; Hypertrophy of both inferior nasal turbinates Social [...] Sign Reading Time Taken Comments Blood Pressure - - Pulse - - Temperature 37.2 ??C (98.9 ??F) 10/08/2020 8:47 AM CS T Respiratory Rate - - Oxygen Saturation - - Inhaled Oxygen Concentration - - Weight 90.7 kg (200 lb) 10/08/2020 8:47 AM DISTRICT SALES MANAGER Height 180.3 cm (5' 11 ) 10/08/2020 8:47 AM DISTRICT SALES MANAGER Body Mass Index 27.89 10/08/2020 8:47 AM DISTRICT SALES MANAGER documented in this encounter Progress Notes * Yousif Weston II, MD - 10/08/2020 8:30 AM CST Erich Allen was seen in the office today. Primary care provider is Nathan Martinez MD . Chief Complaint: Erich Allen is a 50 y.o. male with complaints of nasal obstruction and possible left-sided nasal polyp. HPI: He comes to clinic today for evaluation of nasal obstruction and possible left-sided nasal polyp . Symptoms are ongoing and described as Moderate in severity. Patient complains about difficulty breathing through the left side of the nose. This has been going on intermittently for 4-6 months. There has not been any recent trauma but he did have a injury with nasal trauma several years ago. When he lays on his right side the left side will open up some but when he lays on the left side down he cannot breathe through it at all. He feels like something is physically blocking the breathing a.He has not used any medicines for this. Sense of smell is somewhat decreased as the patient did have COVID -19 2 months ago. He is eating and swallowing without difficulty. Past Medical/Surgical History Past Medical History: Diagnosis Date ??? Ankle fracture, right ??? Colitis ??? Depression ??? Diabetes mellitus (CMS/HCC) ??? Diverticulitis ??? Insomnia ??? Wrist fracture, left Past Surgical History: Procedure Laterality Date ??? APPENDECTOMY ??? CHOLECYSTECTOMY ??? COLON SURGERY ??? WRIST FRACTURE SURGERY Past Family/Social History Family History Problem Relation Age of Onset ??? No Known Problems Mother ??? Heart disease Father ??? Diabetes Father Social History Socioeconomic History ??? Marital status: Single Spouse name: None ??? Number of children: None ??? Years of education: None ??? Highest education level: None Occupational History ??? None Social Needs ??? Financial resource strain: None ??? Food insecurity Worry: None Inability: None ??? Transportation needs Medical: None Non-medical: None Tobacco Use ??? Smoking status: Never Smoker ??? Smokeless tobacco: Current User Types: Chew ??? Tobacco comment: advised to quit 1 can of chew per week since 1994 Substance and Sexual Activity ??? Alcohol use: Not Currently ??? Drug use: Not Currently ??? Sexual activity: None Lifestyle ??? Physical activity Days per week: None Minutes per session: None ??? Stress: None Relationships ??? Social connections Talks on phone: None Gets together: None Attends scientology service: None Active member of club or organization: None Attends meetings of clubs or organizations: None Relationship status: None ??? Intimate partner violence Fear of current or ex partner: None Emotionally abused: None Physically abused: None Forced sexual activity: None Other Topics Concern ??? None Social History Narrative ??? None Medications/Allergies/Immunizations Current Outpatient Medications Medication Sig Dispense Refill ??? escitalopram (LEXAPRO) 20 mg tablet Take 1 tablet (20 mg total) by mouth daily 90 tablet 3 ??? metFORMIN (GLUCOPHAGE) 500 mg tablet Take 1 tablet (500 mg total) by mouth 2 (two) times a day with meals 180 tablet 3 ??? traZODone (DESYREL) 100 mg tablet Take 1 tablet (100 mg total) by mouth nightly as needed for sleep 30 tablet 5 ??? atomoxetine (STRATTERA) 18 mg capsule Take 1 capsule (18 mg total) by mouth 2 (two) times a day60 capsule 0 ??? empagliflozin (JARDIANCE) 10 mg tablet Take 1 tablet (10 mg total) by mouth daily 30 tablet 1 ??? triamcinolone (KENALOG) 0.1 % cream Apply to affected area 1-2 times daily as needed. Avoid face and groin. 30 g 3 No current facility-administered medications for this visit. Allergies: Toradol [ketorolac], Gabapentin, and Phenergan [promethazine], Immunizations: Immunization History Administered Date(s) Administered ??? Pneumococcal Polysaccharide PPV23 01/12/2015 Review of Systems The 12 point review of systems filled out by the patient on their history form was reviewed today, and will be scanned into the encounter. Vital Signs: Vitals Temp 37.2 ??C (98.9 ??F) Ht 180.3 cm (5' 11 ) Wt 90.7 kg (200 lb) BMI 27.89 kg/m?? PHYSICAL EXAMINATION: GENERAL: Well-developed, well-nourished. Answers questions appropriately. NEURO/PSYCH: Affect is normal. Alert and oriented. Cranial Nerves: Cranial nerves III-VII and IX-XII are intact and symmetric. HEAD/FACE: Normocephalic; atraumatic. No facial skin lesions. Facial strength is 5/5 and the face is symmetric. EARS : External ears have no skin lesions. Auricles are regularly set on the head. Hearing is grossly intact. Right - EAC patent. TM intact without scarring or perforation. Middle ear aerated without serous effusion or middle ear process. Left - EAC patent. TM intact without scarring or perforation. Middle ear aerated without serous effusion or middle ear process. NOSE: External nose has no skin lesions. Nasal dorsum is essentialy midline. Nasal septum is deviated to the left side of the nose blocking 90% of the airway. Inferior turbinates are moderately hypertrophied. Middle turbinates are normal size. Drainage seen on each side of the nose is normal and clear.No mucosal lesions or polyps are seen on either side. ORAL CAVITY/ OROPHARYNX: Skin of the lips is without lesions. Normal oral vestibule. Oral mucosa ismoist without lesions. Tongue and floor of mouth are without lesions or masses. Palate has no lesions and elevates symmetrically. Oropharynx is clear without erythema or exudate. NECK: Trachea is midline. Thyroid is normal in size with no apparent nodules. Neck with good range of motion. Salivary Glands: The submandibular glands are non-tender without masses. The parotid glands are non-tender without edema or masses. There is clear saliva flow from Stensen's and Becker's ducts bilaterally. LYMPHATIC: No cervical lymphadenopathy. MUSCULOSKELATAL: Ambulates without difficulty. TMJ is without pain to palpation or trismus. RESPIRATORY: Breathing comfortably without audible wheeze or stridor. PROCEDURE: Procedure: Sinonasal Endoscopy (CPT 31890): Indication: Anterior rhinoscopy was inadequate to visualize the anatomy of the nasal cavity. There is concern for possible nasal polyp or mass seen by his primary care physician. Therefore, to betterevaluate the patient???s symptoms including any of the following: nasal congestion, anosmia, sinus pressure, headache, and mucopurulent drainage, sinonasal endoscopy is indicated. After discussion of risks and benefits including bleeding, infection, change in sense of smell etc., A Zero and/or 30 degree endoscope was used to perform nasal endoscopy on each side of the nose. Surgeon: Yousif Weston II, MD Anesthesia: Topical 4% lidocaine, 1% topical ephedrine decongestant Complications: None Findings: On the left reveals an intact nasal septum with no associated masses, lesions, or friablemucosa. Nasal septum is severely deviated to the left side of the nose. The left inferior meatus is clear of mass lesions or polyps. The left middle meatus clear of masses or polyp The left sphenoethmoidal recess is clear with no evidence of purulence, polyposis, or polypoid edema. Examination on the right reveals an intact nasal septum with no associated masses, lesions, or friable mucosa. The right inferior meatus is clear of mass lesions or polyps. The right middle meatus clear of masses or polyps. The left sphenoethmoidal recess is clear with no evidence of purulence, polyposis, or polypoid edema. No orders of the defined types were placed in this encounter. No orders of the defined types were placed in this encounter. ASSESSMENT & PLAN Problem List Items Addressed This Visit Respiratory Nasal polyp Deviated nasal septum - Primary Hypertrophy of both inferior nasal turbinates Patient has several month history of nasal obstruction. Fortunately it does not look like there areany mass lesions or polyps causing this. His main problem seems to be severe septal deviation to the left and bilateral inferior turbinate hypertrophy. Septal deviation is likely a results of his trauma in the past. I have talked with him about saline rinses as well as nasal steroid sprays and possibly decongestant pills. Patient is not very interested in medical treatment at this time as he doesnot like taking the medicines. He wants to see about having this fixed. We discussed the option of surgery including nasal septoplasty and bilateral inferior turbinate reduction. The patient has tried multiple medical regimens including nasal steroids/oral steroids, saline rinses, and antibiotics without improvement. Risks and benefits of the procedure including bleeding, infection, continuing infections, return to the operating room, intraorbital bleeding, double vision, blindness which could be permanent, intracranial bleeding, meningitis, CSF leak, anosmia, failure to improve, need for further surgery, continued nasal congestion, and septal perforation among others were all explained to the patient. The patient expresses understanding and wishes to proceed with surgery. Medical recordsfrom the primary care physician and/or the referring physician were personally reviewed for today's visit. This note was generated with voice recognition software and small grammatical errors may be encountered. Yousif Weston II, M.D. RICT SALES MANAGER documented in this encounter Plan of Treatment Not on file documented as of this encounter Visit Diagnoses Diagnosis Deviated nasal septum- Primary Nasal polyp Unspecified nasal polyp Hypertrophy of both inferior nasal turbinates documented in this encounter Orders Outpatient Referral Count Last Ordered Date Fir st Ordered Date AMB REFERRAL TO ENT 1 10/08/2020 documented in this encounter Additional Health Concerns Infection Onset Date Last Indicated Resolved Time COVID: Recovered Comment:Added based on recent COVID infection. 09/06/2020 09/07/2020 01/04/2021 3:05 AM C DT documented as of this encounter Care Teams Mechanical Engineering Specialist Relationship Specialty Start Date End Date Nathan Martinez MD PCP - General Family Practice 09/10/20 Monique Garcia MD Referring Physician Gastroenterology 06/11/20 Monique Garcia MD Referring Physician Gastroenterology 06/11/20 documented as of this encounter
--- OUTSIDE RECORDS SUMMARY | 2024-09-03 01:02 | XMS_ITS | Encounter Summary ---
Author Organization [facility] Address [address] [place] [address] Care Team Providers Care Discovery Manager Name Role Phone Monique Garcia MD Unavailable Monique Garcia MD Unavailable [phone] Nathan Martinez MD Primary Care Provider [phone] Encounter Details Date Type Department Care Team (Latest Contact Info) Description 11/07/2020 5:35 AM CDT - 11/07/2020 11:05 AM CDT Hospital Encounter [facility] Yousif Weston II, MD [address] [place] [address] Discharge Disposition: Discharge to home [...] Sign Reading Time Taken Comments Blood Pressure 144/86 11/07/2020 6:10 AM CDT Pulse 75 11/07/2020 6:10 AM CDT Temperature 37.1 ??C (98.7 ??F) 11/07/2020 6:10 AM CD T Respiratory Rate - - Oxygen Saturation 92% 11/07/2020 6:10 AM CDT Inhaled Oxygen Concentration - - Weight 93.7 kg (206 lb 8 oz) 11/07/2020 6:10 AM CDT Height 180.3 cm (5' 11 ) 11/07/2020 6:10 AM CDT Body Mass Index 28.8 11/07/2020 6:10 AM CDT documented in this encounter Medications at Time of Discharge atomoxetine (STRATTERA) 18 mg capsuleIndications: Attention-Deficit Hyperactivity Disorder Take 1 capsule (18 mg total) by mouth 2 (two) times a day 60 capsule 10/08/2020 1 empagliflozin (JARDIANCE) 10 mg tabletIndications:t ype 2 diabetes mellitus Take 1 tablet (10 mg total) by mouth daily 30 tablet 1 09/10/2020 1 escitalopram (LEXAPRO) 20 mg tablet Take 1 tablet (20 mg total) by mouth daily 90 tablet 3 06/11/2020 2 metFORMIN (GLUCOPHAGE) 500 mg tablet Take 1 tablet (500 mg total) by mouth 2 (two) times a day with meals 180 tablet 3 06/11/2020 1 modafiniL (PROVIGIL) 100 mg tablet Take 1 tablet (100 mg total) by mouth daily 30 tablet 10/10/2020 1 traZODone (DESYREL) 100 mg tablet Take 1 tablet (100 mg total) by mouth nightly as needed for sleep 30 tablet 5 09/10/2020 1 triamcinolone (KENALOG) 0.1 % cream Apply to affected area 1-2 times daily as needed. Avoid face and groin. 30 g 3 09/10/2020 2 documented as of this encounter Discharge Disposition Disposition Code Departure Means Destination Discharge to home or self care documented in this encounter Plan of Treatment Not on file documented as of this encounter Procedures Procedure Name Priority Date/Time Associated Diagnosis Comments CBC WITH AUTO DIFFERENTIAL Routine 11/07/2020 6:34 AM CDT PROCEDURE - RESULT 11/07/2020 12 :00 AM CDT documented in this encounter Results * (ABNORMAL) CBC with auto differential (11/07/2020 6:34 AM CDT) WBC 4.8 3.8 - 9.9 X10 3/ul [facility] RBC 5.07 4.30 - 5.80 x10 6/ul [facility] Hemoglobin 13.3 13.0 - 17.5 g/dL [facility] Hct 40.2 38.9 - 50.3 % [facility] MCV 79.3(L) 81.3 - 96.4 fl [facility] MCH 26.2(L) 27.1 - 33.3 pg [facility] MCHC 33.1 32.3 - 35.7 g/dl [facility] RDW 13.9 11.1 - 14.9 % [facility] Plt Count 242 150 - 400 x10 3/ul [facility] MPV 9.0(L) 9.1 - 12.3 fl [facility] Neut % 56.4 % [facility] Immature Gran % 0.4 % [facility] Lymph % 32.2 % [facility] [place] % 8.1 % [facility] Eos % 2.3 % [facility] AUTO BASO % 0.6 % [facility] NEUTROPHIL ABS # 2.7 1.7 - 6.5 x10 3/ul [facility] Immature Gran # 0.0 0.0 - 0.1 x10 3/ul [facility] Absolute Lymphs (auto) 1.6 0.8 - 3.3 x10 3/ul [facility] Absolute Monos (auto) 0.4 0.2 - 0.8 x10 3/ul [facility] Absolute Eos (auto) 0.1 0.0 - 0.5 x10 3/ul [facility] BASOPHIL ABS # 0.0 0.0 - 0.1 x10 3/ul [facility] Nucleat RBC Rel Count 0.0 #/100WBC [facility] NRBC abs 0.00 0.00 - 0.01 x10 3/ul [facility] Absolute Neutrophils 2,700 200 - 8,000 /ul [facility] 11/07/2020 6:34 AM CDT 11/07/2020 6:40 AM CDT Narrative Resulting Agency Comment [facility] Yousif Weston II, MD LAB BLOOD ORDERABLES [facility] Result [address] [phone] * PROCEDURE - RESULT (11/07/2020 12:00 AM CDT) Narrative 11/07/2020 12:00 AM CDT Ordered by an unspecified provider. Historical Provider MD Final Res ult documented in this encounter Visit Diagnoses Not on filedocumented in this encounter Additional Health Concerns Infection Onset Date Last Indicated Resolved Time COVID: Recovered Comment:Added based on recent COVID infection. 09/06/2020 09/07/2020 01/04/2021 3:05 AM C DT documented as of this encounter Care Teams Discovery Manager Relationship Specialty Start Date End Date Nathan Martinez MD PCP - General Family Practice 09/10/20 Monique Garcia MD Referring Physician Gastroenterology 06/11/20 Monique Garcia MD Referring Physician Gastroenterology 06/11/20 documented as of this encounter
--- OUTSIDE RECORDS SUMMARY | 2024-09-03 01:02 | XMS_ITS | Encounter Summary ---
Author Organization [facility] Address [address] [place] [address] Care Team Providers Care Edi Specialist Name Role Phone Monique Garcia MD Unavailable [phone] Monique Garcia MD Unavailable [phone] Nathan Martinez MD Primary Care Provider [phone] Encounter Details Date Type Department Care Team (Late st Contact Info) Description 12/16/2020 Orders Only [facility] Information Management [address] [place] [address] Scanning, Provider Social History Tobacco Use Types [...] Date/Time Associated Diagnosis Comments SCAN - RADIOLOGY/IMAGING 12/16/2020 documented in this encounter Results * SCAN - RADIOLOGY/IMAGING (12/16/2020) Anatomical Region Laterality Modality Other us Provider Scanning Edited Result - Final documented in this encounter Visit Diagnoses Not on filedocumented in this encounter Additional Health Concerns Infection Onset Date Last Indicated Resolved Time COVID: Recovered Comment:Added based on recent COVID infection. 09/06/2020 09/07/2020 01/04/2021 3:05 AM C DT documented as of this encounter Care Teams Edi Specialist Relationship Specialty Start Date End Date Nathan Martinez MD PCP - General Family Practice 09/10/20 Monique Garcia MD Referring Physician Gastroenterology 06/11/20 Monique Garcia MD Referring Physician Gastroenterology 06/11/20 documented as of this encounter
--- OUTSIDE RECORDS SUMMARY | 2024-09-03 01:02 | XMS_ITS | Encounter Summary ---
Author Organization [facility] Address [address] [address] Care Team Providers Care Telecommunications Technician Name Role Phone Monique Garcia MD Unavailable [phone] Monique Garcia MD Unavailable [phone] Nathan Martinez MD Primary Care Provider [phone] Encounter Details Date Type Department Care Team (Late st Contact Info) Description 10/10/2020 Orders Only [facility] Primary Care [address] [place] [address] Nathan Martinez MD [address] [place] [address] Social History Tobacco Use Types Packs/Day Years [...] total) by mouth daily 30 tablet 10/10/2020 11/12/2020 documented in this encounter Plan of Treatment Not on file documented as of this encounter Visit Diagnoses Not on filedocumented in this encounter Additional Health Concerns Infection Onset Date Last Indicated Resolved Time COVID: Recovered Comment:Added based on recent COVID infection. 09/06/2020 09/07/2020 01/04/2021 3:05 AM C DT documented as of this encounter Care Teams Telecommunications Technician Relationship Specialty Start Date End Date Nathan Martinez MD PCP - General Family Practice 09/10/20 Monique Garcia MD Referring Physician Gastroenterology 06/11/20 Monique Garcia MD Referring Physician Gastroenterology 06/11/20 documented as of this encounter
--- OUTSIDE RECORDS SUMMARY | 2024-09-03 01:02 | XMS_ITS | Encounter Summary ---
Author Organization [facility] Address [address] [place] [address] Care Team Providers Care Team Assembler Name Role Phone Monique Garcia MD Unavailable [phone] Monique Garcia MD Unavailable [phone] Nathan Martinez MD Primary Care Provider [phone] Encounter Details Date Type Department Care Team (Late st Contact Info) Description 12/17/2020 Orders Only [facility] Health Information Management [address] [place] [address] Scanning, Provider Social History Tobacco Use Types [...] Date/Time Associated Diagnosis Comments SCAN - RADIOLOGY/IMAGING 12/17/2020 documented in this encounter Results * SCAN - RADIOLOGY/IMAGING (12/17/2020) Anatomical Region Laterality Modality Other us Provider Scanning Final Result documented in this encounter Visit Diagnoses Not on filedocumented in this encounter Additional Health Concerns Infection Onset Date Last Indicated Resolved Time COVID: Recovered Comment:Added based on recent COVID infection. 09/06/2020 09/07/2020 01/04/2021 3:05 AM C DT documented as of this encounter Care Teams Team Assembler Relationship Specialty Start Date End Date Nathan Martinez MD PCP - General Family Practice 09/10/20 Monique Garcia MD Referring Physician Gastroenterology 06/11/20 Monique Garcia MD Referring Physician Gastroenterology 06/11/20 documented as of this encounter
--- OUTSIDE RECORDS SUMMARY | 2024-09-03 01:02 | XMS_ITS | Encounter Summary ---
Author Organization [facility] Address [address] [address] Care Team Providers Care Grain Thresher Name Role Phone Monique Garcia MD Unavailable [phone] Monique Garcia MD Unavailable Nathan Martinez MD Primary Care Provider [phone] Reason for Referral * Diagnostic Imaging (Routine) - Closed Specialty Diagnoses / Procedures Referred By Hugo dang Referred To Contact Diagnoses Shortness of breath Cough Bronchospasm Procedures XR Chest Pa Lateral 2 Views Nathan Martinez MD Phone: tel: fax: [address] [phone] Referral ID Status Reason Start Date Expiration Date Visits Re quested Visits Authorized [id number] Closed 11/12/2020 12/12/2021 1 1 Reason for Visit * Reason Comments Follow-up One month follow up r/t ADHD. Remains on Strattera 18 mg BID. Denies side effects from medication. States medication has improved symptoms. Shortness of Breath Reports occasional s hortness of breath since being diagnosed with COVID-19 in August. Reports deviated septum repair 11/07/20 which has exacerbated symptoms. C/o cough producing yellow blood tinged sputum. Reports wheezing. Encounter Details Date Type Department Care Team ([facility] Contact Info) Description 11/12/2020 10:00 AM CDT Office Visit [facility] Primary Care [address] [place] [id number] Nathan Martinez MD [address] [place] [address] Type 2 diabetes mellitus with hyperglycemia, without long-term current use of insulin (CMS/HCC) (Primary Dx); Major depression in remission (CMS/HCC); Attention deficit disorder (ADD) without hyperactivity; Shortness of breath; Deviated nasal septum; Cough; Bronchospasm Social History Tobacco Use Types Packs/Day Years [...] Reading Time Taken Comments Blood Pressure 126/88 11/12/2020 9:33 AM CDT Pulse 90 11/12/2020 9:33 AM CDT Temperature 36.1 ??C (96.9 ??F) 11/12/2020 9:33 AM CD T Respiratory Rate 16 11/12/2020 9:33 AM CDT Oxygen Saturation 98% 11/12/2020 9:33 AM CDT Inhaled Oxygen Concentration - - Weight 91.4 kg (201 lb 8 oz) 11/12/2020 9:33 AM CDT Height 176.5 cm (5' 9.49 ) 11/12/2020 9:33 AM CD T Body Mass Index 29.34 11/12/2020 9:33 AM CDT documented in this encounter Ordered Prescriptions Prescription Sig Dispense Quantity Refills Last Filled Start Date End Date modafiniL (PROVIGIL) 100 mg tablet Take 1 tablet (100 mg total) by mouth daily 90 tablet 1 11/12/2020 02/04/2021 empagliflozin (JARDIANCE) 25 mg tabletIndications: type 2 diabetes mellitus Take 1 tablet (25 mg total) by mouth daily 90 tablet 3 11/12/2020 09/02/2021 documented in this encounter Progress Notes * Nathan Martinez MD - 11/12/2020 10:00 AM CDT Subjective/Objective Patient ID: Erich Allen is a 50 y.o. male. Chief Complaint Follow-up (One month follow up r/t ADHD. Remains on Strattera 18 mg BID. Denies side effects from medication. States medication has improved symptoms. ) and Shortness of Breath (Reports occasional shortness of breath since being diagnosed with COVID-19 in August. Reports deviated septum repair 11/07/20 which has exacerbated symptoms. C/o cough producing yellow blood tinged sputum. Reports wheezing. ) Vitals BP 126/88 (BP Location: Left arm, Patient Position: Sitting) Pulse 90 Temp 36.1 ??C (96.9 ??F) (Skin) Resp 16 Ht 176.5 cm (5' 9.49 ) Wt 91.4 kg (201 lb 8 oz) SpO2 98% BMI 29.34 kg/m?? PHQ Screening Over the last 2 [...] Down, Depressed, or Hopeless: Not at all History of Present Illness Last seen in the office October 08, 2020. Patient presents for follow-up 1. Diabetes needs better control on metformin twice a day and Jardiance was added but his blood sugar was still 415. Jardiance was increased to 25 mg a day. Last A1c in August was 8.5 2. Problems with attention deficit disorder with previously good response to modafinil but I prefer to try Strattera because it was more studied for attention deficit disorder but it did not provide adequate control of symptoms so he was allows to take modafinil. Dosage 100 mg 3. Depression Patient's depression is well controlled . TakingLexapro every day without any side effects . No manic symptoms or irritability. No substance use. Not suicidal or homicidal. Today PHQ-9 score is 0. Review of Systems Gen.: No fever, [...] Good range of motion joints. Psych: Not overtly depressed. No agitation or akathisia. Orientation and concentration normal. Feet:Diabetic foot exam: Left monofilament exam: normal Right monofilament exam: normal Assessment/Plan Diagnoses and all orders for this visit: Type 2 diabetes mellitus with hyperglycemia, without long-term current use of insulin ([facility]) (E11.65) (Primary) Assessment & Plan: A1c today. Random blood sugar today. Major depression in remission ([facility]) (F32.5) Assessment & Plan: Continue Lexapro at same dosage. Well controlled. Attention deficit disorder (ADD) without hyperactivity (F98.8) Assessment & Plan: Allow modafinil but understands off-label Shortness of breath (R06.02) Assessment & Plan: Will repeat chest x-ray in get PFTs Deviated nasal septum (J34.2) Assessment & Plan: Just had surgery done a few weeks ago and has follow-up appointment with ENT today Cough (R05) Assessment & Plan: Will get chest x-ray and PFTs because of persisting respiratory symptoms. No past history of lung disease Bronchospasm (J98.01) Assessment & Plan: Will get chest x-ray and PFTs documented in this encounter Miscellaneous Notes * Assessment & Plan Note - Nathan Martinez MD - 11/12/2020 10:01 AM CDT Associated Problem(s): Bronchospasm Will get chest x-ray and PFTs * Assessment & Plan Note - Nathan Martinez MD - 11/12/2020 10:01 AM CDT Associated Problem(s): Cough Will get chest x-ray and PFTs because of persisting respiratory symptoms. No past history of lung disease * Assessment & Plan Note - Nathan Martinez MD - 11/12/2020 10:00 AM CDT Associated Problem(s): Deviated nasal septum Just had surgery done a few weeks ago and has follow-up appointment with ENT today * Assessment & Plan Note - Nathan Martinez MD - 11/12/2020 10:00 AM CDT Associated Problem(s): Shortness of breath Will repeat chest x-ray in get PFTs * Assessment & Plan Note - Nathan Martinez MD - 11/09/2020 1:42 PM CDT Associated Problem(s): ADD (attention deficit disorder) Allow modafinil but understands off-label * Assessment & Plan Note - Nathan Martinez MD - 11/09/2020 1:42 PM CDT Associated Problem(s): Major depression in remission ([facility]) Continue Lexapro at same dosage. Well controlled. * Assessment & Plan Note - Nathan Martinez MD - 11/09/2020 1:42 PM CDT Associated Problem(s): Type 2 diabetes mellitus with hyperglycemia, without long-term current use of insulin ([facility]) A1c today. Random blood sugar today. documented in this encounter Plan of Treatment Not on file documented as of this encounter Procedures Procedure Name Priority Date/Time Associated Diagnosis Comments POCT GLUCOSE Routine 11/12/2020 10:06 AM CDT Type 2 diabetes mellitus with hyperglycemia, without long-term current use of insulin ([facility]) XR CHEST PA LATERAL 2 VIEWS Schedule Routine, Read Routine (OP Routine) 07/30/2020 Shortness of breath Cough Bronchospasm documented in this encounter Results * (ABNORMAL) POCT glucose (11/12/2020 10:06 AM CDT) Glucose Blood, POC 358 mg/dL Blood specimen (specimen) 11/12/2020 10:06 AM CDT Nathan Martinez MD POINT OF CARE TEST ORDERAB LES Final Result * XR Chest Pa Lateral 2 Views (07/30/2020) Anatomical Region Laterality Modality Body, Chest N/A Radiographic Padma ging Nathan Martinez MD IMG XR PROCEDURES Final Re sult documented in this encounter Visit Diagnoses Diagnosis Type 2 diabetes mellitus with hyperglycemia, without long-term current use of insulin (HCC)- Primary Major depression in remission (HCC) Major depressive disorder, single episode in full remission Attention deficit disorder (ADD) without hyperactivity Shortness of breath Deviated nasal septum Cough Bronchospasm Acute bronchospasm documented in this encounter Discontinued Medications Medication Sig Discontinue Reason Start Date End Da te atomoxetine (STRATTERA) 18 mg capsuleIndications:Attent ion-Deficit Hyperactivity Disorder Take 1 capsule (18 mg total) by mouth 2 (two) times a day Alternate therapy 10/08/2020 11/12/2020 empagliflozin (JARDIANCE) 10 mg tabletIndications:type 2 diabetes mellitus Take 1 tablet (10 mg total) by mouth daily 09/10/2020 11/12/2020 modafiniL (PROVIGIL) 100 mg tablet Take 1 tablet (100 mg total) by mouth daily Reorder 10/10/2020 11/12/2020 documented as of this encounter Additional Health Concerns Infection Onset Date Last Indicated Resolved Time COVID: Recovered Comment:Added based on recent COVID infection. 09/06/2020 09/07/2020 01/04/2021 3:05 AM C DT documented as of this encounter Care Teams Grain Thresher Relationship Specialty Start Date End Date Nathan Martinez MD PCP - General Family Practice 09/10/20 Monique Garcia MD Referring Physician Gastroenterology 06/11/20 Monique Garcia MD Referring Physician Gastroenterology 06/11/20 documented as of this encounter
--- OUTSIDE RECORDS SUMMARY | 2024-09-03 01:02 | XMS_ITS | Encounter Summary ---
Author Organization [facility] Address [address] [address] Care Team Providers Care Sack Keeper Name Role Phone Monique Garcia MD Unavailable [phone] Monique Garcia MD Unavailable [phone] Raúl Martinez MD Primary Care Provider [phone] Reason for Referral * Consultation (Routine) - Closed Specialty Diagnoses / Procedures Referred By Hugo dang Referred To Contact Otolaryngology Diagnoses Nasal polyp Raúl Martinez MD Phone: tel: fax: Smith Rain MD [address] [place] [address] Phone: tel: fax: Referral ID Status Reason Start Date Expiration Date V isits Requested Visits Authorized [id number] Closed Specialty Services Required 09/10/2020 10/10/2021 1 1 Question Answer Please select the performing region: [facility] [[id number]] Please select the performing department: [facility] [[id number]] # of visits: 1 RUNNER Reason for Visit * Reason Comments Follow-up Three month follow u p r/t anemia, insomnia, depression, diabetes. Current labs in chart. Shortness of Breath Reports shortness of breath since developing COVID-19 on 08/16/20. States this is only with exertion. C/o fatigue. Continues to c/o dry lingering cough. States he was informed of probable lung scarring but was not referred to wildland fire fighter specialist. Rash C/o intermittent dumas sed rash over the past two weeks. C/o itching. Has attempted Benadryl. Medication Problem Would like to discus s increasing trazodone as this is no longer effective. Encounter Details Date Type Department Care Team (Late st Contact Info) Description 09/10/2020 9:30 AM BOND RUNNER Office Visit [facility] Primary Care [address] [place] [address] Raúl Martinez MD [address] [place] [address] Type 2 diabetes mellitus with hyperglycemia, without long-term current use of insulin (CMS/HCC) (Primary Dx); Major depression in remission (CMS/HCC); Anemia, unspecified type; Shortness of breath; Cough; Psychophysiologic insomnia; Rash; Nasal polyp Social History Tobacco Use Types Packs/Day Years [...] Sign Reading Time Taken Comments Blood Pressure 128/80 09/10/2020 9:17 AM BOND RUNNER Pulse 92 09/10/2020 9:17 AM BOND RUNNER Temperature 36 ??C (96.8 ??F) 09/10/2020 9:17 AM BOND RUNNER Respiratory Rate 20 09/10/2020 9:17 AM BOND RUNNER Oxygen Saturation 98% 09/10/2020 9:17 AM BOND RUNNER Inhaled Oxygen Concentration - - Weight 91.7 kg (202 lb 3.2 oz) 09/10/2020 9:17 A M BOND RUNNER Height 176.5 cm (5' 9.49 ) 09/10/2020 9:17 AM CS T Body Mass Index 29.44 09/10/2020 9:17 AM BOND RUNNER documented in this encounter Ordered Prescriptions Prescription Sig Dispense Quantity Refills Last Filled Start Date End Date triamcinolone (KENALOG) 0.1 % cream Apply to affected area 1-2 times daily as needed. Avoid face and groin. 30 g 3 09/10/2020 2 empagliflozin (JARDIANCE) 10 mg tabletIndications: type 2 diabetes mellitus Take 1 tablet (10 mg total) by mouth daily 30 tablet 1 09/10/2020 1 traZODone (DESYREL) 100 mg tablet Take 1 tablet (100 mg total) by mouth nightly as needed for sleep 30 tablet 5 09/10/2020 1 documented in this encounter Progress Notes * Raúl Martinez MD - 09/10/2020 9:30 AM CST Subjective/Objective Patient ID: Erich Allen is a 50 y.o. male. Chief Complaint Follow-up (Three month follow up r/t anemia, insomnia, depression, diabetes. Current labs in chart.), Shortness of Breath (Reports shortness of breath since developing COVID-19 on 08/16/20. States this is only with exertion. C/o fatigue. Continues to c/o dry lingering cough. States he was informed of probable lung scarring but was not referred to wildland fire fighter specialist. ), Rash (C/o intermittent raised rash over the past two weeks. C/o itching. Has attempted Benadryl. ), and Medication Problem (Would like to discuss increasing trazodone as this is no longer effective.) Vitals BP 128/80 (BP Location: Left arm, Patient Position: Sitting) Pulse 92 Temp 36 ??C (96.8 ??F) (Skin) Resp 20 Ht 176.5 cm (5' 9.49 ) Wt 91.7 kg (202 lb 3.2 oz) SpO2 98% BMI 29.44 kg/m?? PHQ Screening Over the last 2 [...] Not at all History of Present Illness He was seen by me as a new patient 06/11/2020. Presents for follow-up 1. Diabetes taking metformin 500 mg b.i.d.. A1c done 08/24/2020 was 8.5. Glucose on 08/24/2020 was 197. 2. Depression. Patient's depression is well controlled . Taking medicine every day without any side effects . No manic symptoms or irritability. No substance use. Not suicidal or homicidal. Today PHQ-9 score 0 3. Anemia with hemoglobin done 08/24/2020 with result of 12.5. Indices microcytic. Hemoglobin was 13.9 July. In April hemoglobin was 14.4. He had never had a colonoscopy and was supposed to get [address] Garcia 4. When he was last seen in May he had a complaint of left lower quadrant pain. This was associated with diarrhea. He had previously had appendectomy and cholecystectomy. Also past history of diverticulitis and colitis. CT of the abdomen and pelvis had been unremarkable previously. Review of Systems Gen.: No fever, night [...] insulin ([facility]) (E11.65) (Primary) Assessment & Plan: Needs better control. Medication options discussed. Risk and benefits of each option. Will add Jardiance 10 mg and re-evaluate 3 months Orders: - Hemoglobin A1c; Future - Comprehensive metabolic panel; Future Major depression in remission ([facility]) (F32.5) Assessment & Plan: Continue medication at same dosage. Well controlled. Anemia, unspecified type (D64.9) Assessment & Plan: Needs iron studies and methylmalonic acid level. Needs to have colonoscopy done. Shortness of breath (R06.02) Assessment & Plan: Mainly with exertion and will refer to Pulmonary. Recent COVID pneumonia. Orders: - Ambulatory referral to Pulmonology; Future Cough (R05) Assessment & Plan: Persisting cough and will refer to Pulmonary for Orders: - Ambulatory referral to Pulmonology; Future Psychophysiologic insomnia (F51.04) Assessment & Plan: Increase trazodone to 100 mg needs better control Rash (R21) Assessment & Plan: There is a dry Pash of eczematoid type rash on his back that is different than psoriasis he has other areas. We will give him some topical hydrocortisone cream but not to use longer than 2 weeks as risk of atrophy and tolerance. Other orders - traZODone (DESYREL) 100 mg tablet; Take 1 tablet (100 mg total) by mouth nightly as needed for sleep - empagliflozin (JARDIANCE) 10 mg tablet; Take 1 tablet (10 mg total) by mouth daily - triamcinolone (KENALOG) 0.1 % cream; Apply to affected area 1-2 times daily as needed. Avoid faceand groin. RUNNER documented in this encounter Miscellaneous Notes * Assessment & Plan Note - Raúl Martinez MD - 09/10/2020 10:07 AM BOND RUNNER Associated Problem(s): Nasal polyp ENT referral RUNNER * Assessment & Plan Note - Raúl Martinez MD - 09/10/2020 10:02 AM BOND RUNNER Associated Problem(s): Rash There is a dry Pash of eczematoid type rash on his back that is different than psoriasis he has other areas. We will give him some topical hydrocortisone cream but not to use longer than 2 weeks as risk of atrophy and tolerance. RUNNER * Assessment & Plan Note - Raúl Martinez MD - 09/10/2020 9:59 AM BOND RUNNER Associated Problem(s): Psychophysiologic insomnia Increase trazodone to 100 mg needs better control RUNNER * Assessment & Plan Note - Raúl Martinez MD - 09/10/2020 9:58 AM BOND RUNNER Associated Problem(s): Shortness of breath Mainly with exertion and will refer to Pulmonary. Recent COVID pneumonia. Will allow return to workas shortness of breath is only with exertion. RUNNER RUNNER * Assessment & Plan Note - Raúl Martinez MD - 09/10/2020 9:58 AM BOND RUNNER Associated Problem(s): Cough Persisting cough and will refer to Pulmonary for RUNNER * Addendum Note - Raúl Martinez MD - 09/10/2020 9:30 AM CSTAddended by: RAÚL MARTINEZ on: 09/10/2020 10:08 AM Modules accepted: Orders RUNNER * Assessment & Plan Note - Raúl Martinez MD - 09/09/2020 1:02 PM BOND RUNNER Associated Problem(s): Anemia Needs iron studies and methylmalonic acid level. Needs to have colonoscopy done. RUNNER * Assessment & Plan Note - Raúl Martinez MD - 09/09/2020 1:01 PM BOND RUNNER Associated Problem(s): Major depression in remission (HCC) Continue medication at same dosage. Well controlled. RUNNER * Assessment & Plan Note - Raúl Martinez MD - 09/09/2020 1:01 PM BOND RUNNER Associated Problem(s): Type 2 diabetes mellitus with hyperglycemia, without long-term current use of insulin (HCC) Needs better control. Medication options discussed. Risk and benefits of each option. Will add Jardiance 10 mg and re-evaluate 3 months RUNNER RUNNER documented in this encounter Plan of Treatment Scheduled Orders Name Type Priority Associated Diagnoses Orde r Schedule Hemoglobin A1c Lab Routine Type 2 diabetes mellitus with hyperglycemia, without long-term current use of insulin ([facility]) Expected: 09/10/2020, Expires: 09/10/2021 Comprehensive metabolic panel Lab Routine Type 2 diabetes mellitus with hyperglycemia, without long-term current use of insulin (CMS/[facility]) Expected: 09/10/2020, Expires: 09/10/2021 Scheduled Referrals Name Type Priority Associated Diagnoses Order Schedule Ambulatory referral to ENT Outpatient Referral Routine Nasal polyp Expected: 09/24/2020 (Approximate), Expires: 09/10/2021 documented as of this encounter Visit Diagnoses Diagnosis Type 2 diabetes mellitus with hyperglycemia, without long-term current use of insulin (HCC)- Primary Major depression in remission (HCC) Major depressive disorder, single episode in full remission Anemia, unspecified type Shortness of breath Cough Psychophysiologic insomnia Rash Rash and other nonspecific skin eruption Nasal polyp Unspecified nasal polyp documented in this encounter Discontinued Medications Medication Sig Discontinue Reason Start Date End Da te traZODone (DESYREL) 50 mg tablet Take 50 mg by mouth nightly Alternate therapy 09/10/2020 documented as of this encounter Historical Medications * This list may reflect changes made after this encounter. traZODone (DESYREL) 50 mg tablet Take 50 mg by mouth nightly 09/10/2020 added in this encounter Additional Health Concerns Infection Onset Date Last Indicated Resolved Time COVID: Recovered Comment:Added based on recent COVID infection. 09/06/2020 09/07/2020 01/04/2021 3:05 AM C DT documented as of this encounter Care Teams Sack Keeper Relationship Specialty Start Date End Date Raúl Martinez MD PCP - General Family Practice 09/10/20 Monique Garcia MD Referring Physician Gastroenterology 06/11/20 Monique Garcia MD Referring Physician Gastroenterology 06/11/20 documented as of this encounter
--- OUTSIDE RECORDS SUMMARY | 2024-09-03 01:02 | XMS_ITS | Encounter Summary ---
Author Organization [facility] Healthcare Address [facility] [place] [address] Care Team Providers Care Composing Machine Operator/Tender Name Role Phone Monique Garcia MD Unavailable [phone] Monique Garcia MD Unavailable [phone] Nathan Martinez MD Primary Care Provider [phone] Encounter Details Date Type Department Care Team (Late st Contact Info) Description 10/08/2020 11:33 AM [facility] - 10/08/2020 4:55 PM [facility] Emergency [facility] Emergency Department [address] [place] [address] Unknown, NotinfMaura Khan MD [address] [place] [address] Laura Nolen, CLINICAL CONSULTANT [address] [facility] [place] [address] Discharge Disposition: Discharge to home or self [...] Sign Reading Time Taken Comments Blood Pressure 150/93 10/08/2020 11:38 AM DISCHARGE SPECIALIST Pulse 83 10/08/2020 11:38 AM DISCHARGE SPECIALIST Temperature 35.9 ??C (96.6 ??F) 10/08/2020 11:[address] Respiratory Rate - - Oxygen Saturation 97% 10/08/2020 11:38 AM DISCHARGE SPECIALIST Inhaled Oxygen Concentration - - Weight 92.6 kg (204 lb 2.4 oz) 10/08/2020 11:38 AM DISCHARGE SPECIALIST Height 180.3 cm (5' 11 ) 10/08/2020 11:38 AM DISCHARGE SPECIALIST Body Mass Index 28.47 10/08/2020 11:38 AM DISCHARGE SPECIALIST documented in this encounter Medications at Time [...] with meals 180 tablet 3 06/11/2020 1 traZODone (DESYREL) 100 mg tablet Take [...] Date/Time Associated Diagnosis Comments SCAN - LABS 10/10/2020 12:00 AM DISCHARGE SPECIALIST URINALYSIS AND REFLEX TO MICROSCOPIC AND CULTURE Routine 10/08/2020 2:33 PM DISCHARGE SPECIALIST CBC WITH AUTO DIFFERENTIAL Routine 10/08/2020 12:08 PM DISCHARGE SPECIALIST APTT Routine 10/08/2020 12:08 PM DISCHARGE SPECIALIST PROTIME-INR Routine 10/08/2020 12:08 PM DISCHARGE SPECIALIST ANTIBODY SCREEN Routine 10/08/2020 12:08 PM DISCHARGE SPECIALIST TYPE AND SCREEN Routine 10/08/2020 12:08 PM DISCHARGE SPECIALIST LIPASE Routine 10/08/2020 12:08 PM DISCHARGE SPECIALIST COMPREHENSIVE METABOLIC PANEL Routine 10/08/2020 12:[address] ABDOMEN PELVIS W CONTRAST 10/08/2020 12:00 AM DISCHARGE SPECIALIST documented in this encounter Results * SCAN - LABS (10/10/2020 12:00 AM DISCHARGE SPECIALIST) Narrative 10/10/2020 12:00 AM DISCHARGE SPECIALIST Ordered by an unspecified provider. us Historical Provider MD Final Res ult * (ABNORMAL) Urinalysis reflex to microscopic and culture (10/08/2020 2:33 PM DISCHARGE SPECIALIST) Ur Collection Type OTHER [facility] Ur Culture Indicated? C S NOT INDICATED [facility] Urine Color STRAW YELLOW [facility] Urine Clarity [facility]AR [facility] Urine Glucose (UA) >=500(A) NORMAL mg/dL [facility] Urine Bilirubin NEGATIVE NEGATIVE mg/dl [facility] Urine Ketones NEGATIVE NEGATIVE mg/dL [facility] Ur Specific [place] 1.017 1.005 - 1.025 [facility] Urine Blood NEGATIVE NEGATIVE mg/dl [facility] Urine pH 6.0 5.0 - 8.0 [facility] Urine Protein NEGATIVE NEGATIVE mg/dL [facility] Urine Urobilinogen NORMAL NORMAL mg/dL [facility] Urine Nitrite NEGATIVE NEGATIVE [facility] Ur Leukocyte Esterase NEGATIVE NEGATIVE Rosy/ul [facility] Ur Microscopic Review Not Indicated [facility] Urine RBC 0-2 0 - 2 /HPF [facility] Urine WBC 0-5 0 - 2 /HPF [facility] 10/08/2020 2:33 PM DISCHARGE SPECIALIST 10/08/2020 3:38 PM DISCHARGE SPECIALIST Narrative [facility] - 10/08/2020 4:18 PM DISCHARGE SPECIALIST Indication(s) for ordering ?? Other - enter in comments pm Other Resulting Agency Comment ER us Laura Nolen NP LAB MICROBIOLOGY - GENERAL [facility] Final Result Performing Organization Address City/[facility]/ZIP Co de Phone Number [address] [phone] * Antibody screen (10/08/2020 12:08 PM DISCHARGE SPECIALIST) Antibody Screen NEGATIVE [facility] 10/08/2020 12:0 8 PM DISCHARGE SPECIALIST 10/08/2020 12:20 PM DISCHARGE SPECIALIST Narrative Resulting Agency Comment ER us Laura Nolen NP LAB BLOOD BANK TEST ORDERABLES Final Result Performing Organization Address City/[facility]/ZIP Co de Phone Number [address] [phone] * Type and screen (10/08/2020 12:08 PM DISCHARGE SPECIALIST) Blood Type AP [facility] 10/08/2020 12:0 8 PM DISCHARGE SPECIALIST 10/08/2020 12:20 PM DISCHARGE SPECIALIST Narrative [facility] - 10/08/2020 1:24 PM DISCHARGE SPECIALIST N Resulting Agency Comment ER us Laura Nolen NP LAB BLOOD BANK TEST ORDERABLES Final Result Performing Organization Address City/[facility]/ZIP Co de Phone Number [facility] [address] [phone] * (ABNORMAL) Lipase (10/08/2020 12:08 PM DISCHARGE SPECIALIST) Lipase 75(H) 13 - 60 U/L [facility] 10/08/2020 12:0 8 PM DISCHARGE SPECIALIST 10/08/2020 12:20 PM DISCHARGE SPECIALIST Narrative Resulting Agency Comment ER us Laura Nolen CLINICAL CONSULTANT LAB BLOOD ORDERABLES Final Resu lt Performing Organization Address [facility] de Phone Number [facility] [address] [place] [address] * (ABNORMAL) Comprehensive metabolic panel (10/08/2020 12:08 PM DISCHARGE SPECIALIST) Pathologist [facility] Sodium 135 135 - 145 mmol/L [facility] Potassium 4.2 3.3 - 5.1 mmol/L [facility] Chloride 98 96 - 108 mmol/L [facility] Carbon Dioxide 28 22 - 32 mmol/L [facility] Anion Gap 9 7 - 16 [facility] Glucose 387(H) 70 - 100 mg/dL [facility] BUN 9 8 - 25 mg/dL [facility] Creatinine 0.9 0.5 - 1.3 mg/dL [facility] Comment: NOTE: Estimated GFR (Cockroft-Gault) will NOT be calculated unless patient Height and Weight were entered. Also, Kidney Disease Stage (GFR) and Estimated GFR (Cockroft-Gault) will NOT be calculated if Creatinine result is <0.2. Kidney Disease Stage >90 mL/MIN [facility] Comment: NOTE; ??The GFR is an estimated [...] failure or on dialysis Est GFR (Cockcroft-G) 113 ml/MIN [facility] Comment: Estimated GFR(Cockroft-Gault)is used to calculate patient medication dosage Calcium 9.0 8.6 - 10.3 mg/dL [facility] Total Protein 7.6 6.4 - 8.3 g/dL [facility] Albumin 4.5 3.5 - 5.0 g/dL [facility] Globulin 3.1 2.3 - 3.5 gm/dL [facility] Albumin/Globulin Ratio 1.5 1.1 - 1.8 [facility] Total Bilirubin 0.2 0.0 - 1.2 mg/dL [facility] AST 17 0 - 40 U/L [facility] ALT 29 0 - 41 U/L [facility] Alkaline Phosphatase 82 40 - 129 U/L [facility] 10/08/2020 12:0 8 PM DISCHARGE SPECIALIST 10/08/2020 12:20 PM DISCHARGE SPECIALIST Narrative Resulting Agency Comment ER us Laura Nolen CLINICAL CONSULTANT LAB [place] [address], [facility] [phone] * aPTT (10/08/2020 12:08 PM DISCHARGE SPECIALIST) APTT 28 23 - 38 SECONDS [facility] Comment: New reference ranges in use 05-23-2020. 10/08/2020 12:0 8 PM DISCHARGE SPECIALIST 10/08/2020 12:20 PM DISCHARGE SPECIALIST Narrative Resulting Agency Comment ER Laura Nolen NP LAB BLOOD ORDERABLES Final Resu lt Performing Organization Address [facility] de Phone Number [facility] [address] [place] [address] * Protime-INR (10/08/2020 12:08 PM DISCHARGE SPECIALIST) Pathologist [facility] PT 13.1 12.3 - 15.1 SECONDS [facility] Comment: New reference ranges in use 05-23-2020. INR 0.95 [facility] Comment: Recommended Therapeutic range for Oral Anticoagulant Therapy No anti-coagulation therapy ? Normal Range: ?0.8-1.4 Anti-coagulation therapy ? Low intensity therapy ?2.0-3.0 ? High intensity therapy ?? 2.5-3.5 Critical Value ? Greater than or equal to 5.0 Patients should be monitored for serious bleeding. 10/08/2020 12:0 8 PM DISCHARGE SPECIALIST 10/08/2020 12:20 PM DISCHARGE SPECIALIST Narrative Resulting Agency Comment ER Laura Nolen NP LAB BLOOD ORDERABLES Final Resu lt Performing Organization Address [facility] de Phone Number [address] [phone] * (ABNORMAL) CBC with auto differential (10/08/2020 12:08 PM DISCHARGE SPECIALIST) Pathologist [facility] WBC 4.1 3.8 - 9.9 X10 3/ul [facility] RBC 5.37 4.30 - 5.80 x10 6/ul [facility] Hemoglobin 14.0 13.0 - 17.5 g/dL [facility] Hct 43.0 38.9 - 50.3 % [facility] MCV 80.1(L) 81.3 - 96.4 fl [facility] MCH 26.1(L) 27.1 - 33.3 pg [facility] MCHC 32.6 32.3 - 35.7 g/dl [facility] RDW 14.6 11.1 - 14.9 % [facility] Plt Count 275 150 - 400 x10 3/ul [facility] MPV 9.6 9.1 - 12.3 fl [facility] Neut % 59.0 % [facility] [employer] Immature Gran % 0.2 % [facility] [employer] Lymph % 31.7 % [facility] [employer] - Latio Door % 6.9 % [facility] [employer] Eos % 1.5 % [facility] [employer] AUTO BASO % 0.7 % [facility] NEUTROPHIL ABS # 2.4 1.7 - 6.5 x10 3/ul [facility] Immature Gran # 0.0 0.0 - 0.1 x10 3/ul [facility] Absolute Lymphs (auto) 1.3 0.8 - 3.3 x10 3/ul [facility] Absolute Monos (auto) 0.3 0.2 - 0.8 x10 3/ul [facility] Absolute Eos (auto) 0.1 0.0 - 0.5 x10 3/ul [facility] BASOPHIL ABS # 0.0 0.0 - 0.1 x10 3/ul [facility] Nucleat RBC Rel Count 0.0 #/100WBC [facility] NRBC abs 0.00 0.00 - 0.01 x10 3/ul [facility] Absolute Neutrophils 2,400 200 - 8,000 /ul [facility] 10/08/2020 12:0 8 PM DISCHARGE SPECIALIST 10/08/2020 12:20 PM DISCHARGE SPECIALIST Narrative Resulting Agency Comment ER us Laura Nolen CLINICAL CONSULTANT LAB BLOOD ORDERABLES Final Resu lt [facility] [address] [phone] * CT Abdomen Pelvis W Contrast (10/08/2020 12:00 AM DISCHARGE SPECIALIST) Anatomical Region Laterality Modality Body N/A Computed Tomogra phy 10/08/2020 1:37 PM DISCHARGE SPECIALIST Narrative 10/08/2020 2:06 PM DISCHARGE SPECIALIST Patient Name: MATTHEW WRIGHT ?Ordering Dr: Laura Nolen ANP ?? D.O.B: 1970 ? Exam Date: 10/08/20 ?? 0000 ?? Age: 50 ?Sex: Male ? MR#: [id number] ?? Loc: ? RADIOLOGY REPORT ?? Order #[id number] ?? CT Scan ? CT Abd/Pelvis W IV Contrast ? Signed ? EXAM DESCRIPTION: ?? CT Abd/Pelvis W IV Contrast ? REASON FOR STUDY: ?? Abdominal pain, left lower quadrant pain today ? TECHNIQUE: ??CT scan of the abdomen [...] 100 cc Optiray 350 injected via ??right antecubital ? COMPARISON: ?? 08/17/2020 ? FINDINGS: ? LOWER CHEST: ??There peripheral bilateral lower lung ground-glass densities and ?? mild lung base atelectasis. ??Heart is mildly enlarged. ? LIVER: ??Unremarkable. ? GALLBLADDER: ??Removed ? BILE DUCTS: ??No intrahepatic or extrahepatic ductal dilatation. ? SPLEEN: ??Normal size. ??No focal lesions. ? PANCREAS: ??Parenchyma is unremarkable. ??No peripancreatic fat stranding or ?? fluid collection. ??No main pancreatic ductal dilation. ? ADRENALS: ??Normal. ? KIDNEYS/URINARY TRACT: ??Renal parenchyma is unremarkable. ??No ?? hydroureteronephrosis. ??Urinary bladder wall is diffusely thickened. ? GI: ??Bowel caliber is normal. ??The appendix is not visualized. ? PERITONEUM: ??No ascites or free air. ? RETROPERITONEUM: ??No mass or adenopathy. ? REPRODUCTIVE: ??Prostate is mildly enlarged ? VASCULATURE: ??No abdominal aortic aneurysm. ? MUSCULOSKELETAL: ??No aggressive lesions. ? OTHER: ??No other abnormality. ? IMPRESSION: ? 1. ??Diffuse urinary bladder wall thickening. ??This may represent mild cystitis ?? or artifact from incomplete distention. ? 2. ??Otherwise no acute findings in the abdomen or pelvis.. ? 3. ??Bilateral lower lung subpleural patchy ground-glass densities are ?? indeterminate. ??This pattern can be seen in COVID-19 infection. ? THIS IS AN ELECTRONICALLY VERIFIED FINAL REPORT ?? 10/08/2020 2:06 PM - Electronically signed by Blu Boogie M.D. ?? Blu Boogie M.D. ? RS: RS ?? D: ??10/08/2020 2:06 PM ?? T: ??10/08/2020 2:06 PM ? Report ID: [id number] ?? Reading Location: ??[id number] ? REPORT ELECTRONICALLY SIGNED IN OTHER VENDOR SYSTEM ?? Resulting Agency Comment E Procedure Note Blu Boogie MD - 10/08/2020 Patient Name: MATTHEW WRIGHT Pop Dr: Laura NolenOMarjorieB: 1970 Exam Date: 10/08/20 0000 Age: 50 Sex: Male [facility] [id number] [id number] Order #[id number] CT Scan CT Abd/Pelvis W IV Contrast Signed EXAM DESCRIPTION: CT Abd/Pelvis W IV Contrast REASON FOR STUDY: Abdominal pain, left lower quadrant pain today TECHNIQUE: CT scan of the abdomen and pelvis performed with intravenousand without oral contrast using helical scanning technique with dynamic intravenous contrast injection. Reconstructed coronal and sagittal MPRimages reviewed. All images stored on PACS. Automated exposure control was used as a dose optimization technique forthis examination. CONTRAST TYPE/DOSE: 100 cc Optiray 350 injected via right antecubital COMPARISON: 08/17/2020 FINDINGS: LOWER CHEST: There peripheral bilateral lower lung ground-glassdensities and mild lung base atelectasis. Heart is mildly enlarged. LIVER: Unremarkable. GALLBLADDER: Removed BILE DUCTS: No intrahepatic or extrahepatic ductal dilatation. SPLEEN: Normal size. No focal lesions. PANCREAS: Parenchyma is unremarkable. No peripancreatic fat strandingor fluid collection. No main pancreatic ductal dilation. ADRENALS: Normal. KIDNEYS/URINARY TRACT: Renal parenchyma is unremarkable. No hydroureteronephrosis. Urinary bladder wall is diffusely thickened. GI: Bowel caliber is normal. The appendix is not visualized. PERITONEUM: No ascites or free air. RETROPERITONEUM: No mass or adenopathy. REPRODUCTIVE: Prostate is mildly enlarged VASCULATURE: No abdominal aortic aneurysm. MUSCULOSKELETAL: No aggressive lesions. OTHER: No other abnormality. IMPRESSION: 1. Diffuse urinary bladder wall thickening. This may represent mildcystitis or artifact from incomplete distention. 2. Otherwise no acute findings in the abdomen or pelvis.. 3. Bilateral lower lung subpleural patchy ground-glass densities are indeterminate. This pattern can be seen in COVID-19 infection. THIS IS AN ELECTRONICALLY VERIFIED FINAL REPORT 10/08/2020 2:06 PM - Electronically signed by Blu Boogie M.D. RS: MIHIR Report ID: [id number] Reading Location: [place] [address] REPORT ELECTRONICALLY SIGNED IN OTHER VENDOR SYSTEM Laura Nolen CLINICAL CONSULTANT IMG CT PROCEDURES Final Result documented in this encounter Visit Diagnoses Not on filedocumented in this encounter Additional Health Concerns Infection Onset Date Last Indicated Resolved Time COVID: Recovered Comment:Added based on recent COVID infection. 09/06/2020 09/07/2020 01/04/2021 3:05 AM C DT documented as of this encounter Care Teams Composing Machine Operator/Tender Relationship Specialty Start Date End Date Nathan Martinez MD PCP - General Family Practice 09/10/20 Monique Garcia MD Referring Physician Gastroenterology 06/11/20 Monique Garcia MD Referring Physician Gastroenterology 06/11/20 documented as of this encounter
--- OUTSIDE RECORDS SUMMARY | 2024-09-03 01:02 | XMS_ITS | Encounter Summary ---
Author Organization [facility] Medical Group Address [address] [address] Care Team Providers Care Music Specialist Name Role Phone Monique Garcia MD Unavailable [phone] Monique Garcia MD Unavailable [phone] Nathan Martinez MD Primary Care Provider [phone] Reason for Visit * Reason Comments Follow-up Six month follow up r/t insomnia, depression, anemia, diabetes. No current labs in chart. Memory Loss Reports decreased co gnition since COVID-19 diagnosis this August. Reports this is worsening. Reports short term memory loss. Encounter Details Date Type Department Care Team (Late st Contact Info) Description 10/08/2020 10:45 AM WORKFORCE CONSULTANT Office Visit [facility] Primary Care [address] [place] [address] Nathan Martinez MD [address] [place] [address] Type 2 diabetes mellitus with hyperglycemia, without long-term current use of insulin ([facility]) (Primary Dx); Attention deficit disorder (ADD) without hyperactivity; Shortness of breath; Cough; Psychophysiologic insomnia Social History Tobacco Use Types [...] Sign Reading Time Taken Comments Blood Pressure 114/72 10/08/2020 10:16 AM WORKFORCE CONSULTANT Pulse 80 10/08/2020 10:16 AM WORKFORCE CONSULTANT Temperature 36 ??C (96.8 ??F) 10/08/2020 10:16 AM WORKFORCE CONSULTANT Respiratory Rate 16 10/08/2020 10:16 AM WORKFORCE CONSULTANT Oxygen Saturation 100% 10/08/2020 10:16 AM WORKFORCE CONSULTANT Inhaled Oxygen Concentration - - Weight 94.8 kg (209 lb) 10/08/2020 10:16 AM WORKFORCE CONSULTANT Height 176.5 cm (5' 9.49 ) 10/08/2020 10:[address] Body Mass Index 30.43 10/08/2020 10:16 AM WORKFORCE CONSULTANT documented in this encounter Ordered Prescriptions Prescription Sig Dispense Quantity Refills Last Filled Start Date End Date atomoxetine (STRATTERA) 18 mg capsuleIndications: Attention-Deficit Hyperactivity Disorder Take 1 capsule (18 mg total) by mouth 2 (two) times a day 60 capsule 10/08/2020 documented in this encounter Progress Notes * Nathan Martinez MD - 10/08/2020 10:45 AM CST Subjective/Objective Patient ID: Erich Allen is a 50 y.o. male. Chief Complaint Follow-up (Six month follow up r/t insomnia, depression, anemia, diabetes. No current labs in chart.) and Memory Loss (Reports decreased cognition since COVID-19 diagnosis this August. Reports this is worsening. Reports short term memory loss. ) Vitals BP 114/72 (BP Location: Left arm, Patient Position: Sitting) Pulse 80 Temp 36 ??C (96.8 ??F) (Skin) Resp 16 Ht 176.5 cm (5' 9.49 ) Wt 94.8 kg (209 lb) SpO2 100% BMI 30.43 kg/m?? PHQ Screening Over the last 2 [...] Not at all History of Present Illness Patient presents with complaint of some worsening attention since COVID-19 diagnosis in August . He has had previous diagnosis of attention deficit disorder by psychiatrist at the [facility] and had responded previously to modafinil PHQ-9 score today is 0. 2. Depression well controlled. Not suicidal/homicidal no substance use. 3. Diabetes taking metformin twice a day but in August A1c was 8.5 with fasting sugar 197 . Jardiance was added. 4. When seen in August he was complaining of some shortness ofbreath and persisting cough since COVID diagnosis. He was referred to Pulmonary. 5. In August trazodone was increased to 100 mg nightly because of still problems with insomnia. 6. He was given some triamcinolone for eczematoid type rash on his back. Review of Systems Gen.: No fever, night [...] Diagnoses and all orders for this visit: Shortness of breath (R06.02) (Primary) Assessment & Plan: Much improved Cough (R05) Assessment & Plan: Much improved Type 2 diabetes mellitus with hyperglycemia, without long-term current use of insulin ([facility]) (E11.65) Assessment & Plan: Check fasting blood sugar today. Result is 415 no he has had better sugars at home. No hypoglycemicsymptoms will increase Jardiance to 25 mg daily as he has had no side effects. Orders: - POCT glucose Psychophysiologic insomnia (F51.04) Assessment & Plan: Improved. Continue trazodone 100 mg Attention deficit disorder (ADD) without hyperactivity (F98.8) Assessment & Plan: Previously diagnosed with this by psychiatrist [facility]. good response previously to modafinil but I would prefer to try Strattera 1st as I told him I am not that familiar with usage of modafinil Other orders - atomoxetine (STRATTERA) 18 mg capsule; Take 1 capsule (18 mg total) by mouth 2 (two) times a day FORCE CONSULTANT documented in this encounter Miscellaneous Notes * Assessment & Plan Note - Nathan Martinez MD - 10/08/2020 10:46 AM WORKFORCE CONSULTANT Associated Problem(s): Shortness of breath Much improved FORCE CONSULTANT * Assessment & Plan Note - Nathan Martinez MD - 10/08/2020 10:45 AM WORKFORCE CONSULTANT Associated Problem(s): Rash Much improved FORCE CONSULTANT * Assessment & Plan Note - Nathan Martinez MD - 10/08/2020 10:45 AM WORKFORCE CONSULTANT Associated Problem(s): Cough Much improved FORCE CONSULTANT * Assessment & Plan Note - Nathan Martinez MD - 10/08/2020 10:44 AM WORKFORCE CONSULTANT Associated Problem(s): ADD (attention deficit disorder) Previously diagnosed with this by psychiatrist at [facility]. good response previously to modafinil but I would prefer to try Strattera 1st as I told him I am not that familiar with usage of modafinil FORCE CONSULTANT * Assessment & Plan Note - Nathan Martinez MD - 10/08/2020 10:31 AM WORKFORCE CONSULTANT Associated Problem(s): Psychophysiologic insomnia Improved. Continue trazodone 100 mg FORCE CONSULTANT * Assessment & Plan Note - Nathan Martinez MD - 10/08/2020 10:30 AM WORKFORCE CONSULTANT Associated Problem(s): Type 2 diabetes mellitus with hyperglycemia, without long-term current use of insulin ([facility]) Check fasting blood sugar today. Result is 415 no he has had better sugars at home. No hypoglycemicsymptoms will increase Jardiance to 25 mg daily as he has had no side effects. FORCE CONSULTANT FORCE CONSULTANT documented in this encounter Plan of Treatment Not on file documented as of this encounter Procedures Procedure Name Priority Date/Time Associated Diagnosis Comments POCT GLUCOSE Routine 10/08/2020 10:43 AM WORKFORCE CONSULTANT Type 2 diabetes mellitus with hyperglycemia, without long-term current use of insulin ([facility]) documented in this encounter Results * (ABNORMAL) POCT glucose (10/08/2020 10:43 AM WORKFORCE CONSULTANT) Glucose Blood, POC 415 mg/dL Blood specimen (specimen) 10/08/2020 10:43 AM WORKFORCE CONSULTANT Nathan Martinez MD POINT OF CARE TEST ORDERAB LES Final Result documented in this encounter Visit Diagnoses Diagnosis Type 2 diabetes mellitus with hyperglycemia, without long-term current use of insulin ([facility])- Primary Attention deficit disorder (ADD) without hyperactivity Shortness of breath Cough Psychophysiologic insomnia documented in this encounter Additional Health Concerns Infection Onset Date Last Indicated Resolved Time COVID: Recovered Comment:Added based on recent COVID infection. 09/06/2020 09/07/2020 01/04/2021 3:05 AM C DT documented as of this encounter Care Teams Music Specialist Relationship Specialty Start Date End Date Nathan Martinez MD PCP - General Family Practice 09/10/20 Monique Garcia MD Referring Physician Gastroenterology 06/11/20 Monique Garcia MD Referring Physician Gastroenterology 06/11/20 documented as of this encounter
--- OUTSIDE RECORDS SUMMARY | 2024-09-03 01:02 | XMS_ITS | Encounter Summary ---
Author Organization [facility] Address [address] [place] [address] Phone Care Team Providers Care Director Nursing Service Name Role Phone Monique Garcia MD Unavailable Monique Garcia MD Unavailable [phone] Nathan Martinez MD Primary Care Provider [phone] Reason for Visit * Reason Comments Post-op septo/turbs 11/07/20 Encounter Details Date Type Department Care Team (Late st Contact Info) Description 11/12/2020 11:15 AM CDT Office Visit [facility] Otolaryngology [address] [place] [id number] Yousif Weston II, MD [address] [place] [id number] Deviated nasal septum (Primary Dx); Hypertrophy of [...] Pressure - - Pulse - - Temperature 36.8 ??C (98.2 ??F) 11/12/2020 10:57 AM C DT Respiratory Rate - - Oxygen Saturation - - Inhaled Oxygen Concentration - - Weight 91.2 kg (201 lb) 11/12/2020 10:57 AM CDT Height 175.3 cm (5' 9 ) 11/12/2020 10:57 AM CDT Body Mass Index 29.68 11/12/2020 10:57 AM CDT documented in this encounter Progress Notes * Yousif eWston II, MD - 11/12/2020 11:15 AM CDT Otolaryngology Post-operative follow-up Note Subjective Patient ID: Erich Allen is a 50 y.o. male. Chief Complaint: Chief Complaint Patient presents with ??? Post-op septo/turbs 11/07/20 HPI: Erich Allen is a 50 y.o. male here for follow-up status post nasal septoplasty and bilateral inferior turbinate reduction. He has a lot of nasal congestion and some frequent nasal drainage. There ispain in his nose especially on the left. He has not had any facial swelling a running any fevers. He has been using the Afrin and saline sprays. Objective Temp 36.8 ??C (98.2 ??F) Ht 175.3 cm (5' 9 ) Wt 91.2 kg (201 lb) BMI 29.68 kg/m?? Physical Exam Nasal septal silicone splints are in place. They were removed. Once they were removed the septum isvisualized and shows no perforation or hematoma. Airway is good. There is a little bit of inflammation to the mucosa of the inferior turbinates. Procedure: None Pathology Reviewed: None Assessment/Plan 1. Deviated nasal septum 2. Hypertrophy of both inferior nasal turbinates Patient is doing well postop after nasal septoplasty and bilateral inferior turbinate reduction surgery. He will stop the Afrin spray at this point but he is to continue saline rinses 2-3 times daily. He has avoid trauma to his nose. He can blow gently. He will follow up in 1 month for recheck. Yousif Weston II, M.D. Department of Otolaryngology [facility] documented in this encounter Plan of Treatment [...] as of this encounter Care Teams Director Nursing Service Relationship Specialty Start Date End Date Nathan Martinez MD PCP - General Family Practice 09/10/20 Monique Garcia MD Referring Physician Gastroenterology 06/11/20 Monique Garcia MD Referring Physician Gastroenterology 06/11/20 documented as of this encounter
--- OUTSIDE RECORDS SUMMARY | 2024-09-03 01:02 | XMS_ITS | Encounter Summary ---
Author Organization [facility] Healthcare Address [address] [place] [address] Care Team Providers Care Commercial Assistant Name Role Phone Monique Garcia MD Unavailable [phone] Monique Garcia MD Unavailable [phone] April Gresham NP Primary Care Provider [phone] Encounter Details Date Type Department Care Team (Late st Contact Info) Description 08/23/2020 8:01 PM WIRE MESH KNITTER - 08/23/2020 11:59 PM WIRE MESH KNITTER Emergency MHE ADMIT Daphney Rasmussen MD [facility] [place] [address] Unknown, Moises Helms MD [facility] [place], [place] [id number] Discharge Disposition: Discharge to a short term hospital for IP Social History Tobacco Use Types Packs/Day Years [...] this encounter Medications at Time of Discharge escitalopram (LEXAPRO) 20 mg tablet Take 1 tablet (20 mg total) by mouth daily 90 tablet 3 06/11/2020 09/02/2021 metFORMIN (GLUCOPHAGE) 500 mg tablet Take 1 tablet (500 mg total) by mouth 2 (two) times a day with meals 180 tablet 3 06/11/2020 02/11/2021 documented as of this encounter Discharge Disposition Disposition Code Departure Means Destination Discharge to a short term hospital for IP documented in this encounter Plan of Treatment Not on file documented as of this encounter Procedures Procedure Name Priority Date/Time Associated Diagnosis Comments LACTATE Routine 08/24/2020 3:28 AM WIRE MESH KNITTER CBC WITH AUTO DIFFERENTIAL Routine 08/24/2020 3:28 AM WIRE MESH KNITTER PHOSPHORUS Routine 08/24/2020 3:28 AM WIRE MESH KNITTER MAGNESIUM Routine 08/24/2020 3:28 AM WIRE MESH KNITTER HEMOGLOBIN A1C Routine 08/24/2020 3:28 AM WIRE MESH KNITTER COMPREHENSIVE METABOLIC PANEL Routine 08/24/2020 3:28 AM WIRE MESH KNITTER INFLUENZA A/B, RSV, AND COVID-19 PCR Routine 08/23/2020 9:59 PM WIRE MESH KNITTER CBC WITH AUTO DIFFERENTIAL Routine 08/23/2020 9:12 PM WIRE MESH KNITTER BLOOD CULTURE Routine 08/23/2020 8:35 PM WIRE MESH KNITTER BLOOD CULTURE Routine 08/23/2020 8:33 PM WIRE MESH KNITTER D-DIMER, QUANTITATIVE Routine 08/23/2020 8:32 PM WIRE MESH KNITTER LACTATE DEHYDROGENASE Routine 08/23/2020 8:32 PM WIRE MESH KNITTER FERRITIN Routine 08/23/2020 8:32 PM WIRE MESH KNITTER COMPREHENSIVE METABOLIC PANEL Routine 08/23/2020 8:32 PM WIRE MESH KNITTER CTA CHEST W IV CONTRAST - PE 08/23/2020 12:00 AM WIRE MESH KNITTER XR CHEST 1 VIEW 08/23/2020 12:00 AM WIRE MESH KNITTER documented in this encounter Results * Lactate (08/24/2020 3:28 AM WIRE MESH KNITTER) LACTATE 0.8 mmol/L [facility] Comment: Lactate Reference Range: 0.5 - 2.2 mmol/L 08/24/2020 3:28 AM WIRE MESH KNITTER 08/24/2020 4:02 AM WIRE MESH KNITTER Narrative Resulting Agency Comment REBA Moises Rodriguez MD LAB BLOOD ORDERABLES Final Result Performing Organization Address [facility] de Phone Number [address] [phone] * (ABNORMAL) Hemoglobin A1c (08/24/2020 3:28 AM WIRE MESH KNITTER) Pathologist [facility] Hemoglobin A1c % 8.5(H) 4.0 - 5.6 % [facility] Comment: ADA 2016 GUIDELINES: ??Initial Diagnostic Criteria ? HbA1c Result: ?Interpretation: ?<5.7% ? Normal ?5.7-6.4% ?At risk for diabetes mellitus ?>=6.5% ?Consistent with diabetes mellitus ??Diabetes monitoring ? Target value (ADA Recommended) ?? <7% 08/24/2020 3:28 AM WIRE MESH KNITTER 08/24/2020 4:02 AM WIRE MESH KNITTER Narrative Resulting Agency Comment REBA Moises Rodriguez MD LAB BLOOD ORDERABLES Final Result Performing Organization Address [facility] de Phone Number [address] [phone] * Phosphorus (08/24/2020 3:28 AM WIRE MESH KNITTER) Phosphorus 3.0 2.3 - 4.5 mg/dL [facility] 08/24/2020 3:28 AM WIRE MESH KNITTER 08/24/2020 4:02 AM WIRE MESH KNITTER Narrative Resulting Agency Comment REBA Moises Rodriguez MD LAB BLOOD ORDERABLES Final Result Performing Organization Address City/[facility] [address]/ZIP Co de Phone Number [address] [phone] * Magnesium (08/24/2020 3:28 AM WIRE MESH KNITTER) Pathologist [facility] Magnesium 2.1 1.6 - 2.6 mg/dL [facility] Comment: Magnesium sulfate therapy: ??3.0-9.1 mg/dL 08/24/2020 3:28 AM WIRE MESH KNITTER 08/24/2020 4:02 AM WIRE MESH KNITTER Narrative Resulting Agency Comment REBA Moises Rodriguez MD LAB BLOOD ORDERABLES Final Result Performing Organization Address [facility] [address] [facility] de Phone Number [address] [phone] * (ABNORMAL) Comprehensive metabolic panel (08/24/2020 3:28 AM WIRE MESH KNITTER) Pathologist [facility] Sodium 136 135 - 145 mmol/L [facility] Potassium 3.7 3.3 - 5.1 mmol/L [facility] Chloride 105 96 - 108 mmol/L [facility] Carbon Dioxide 22 22 - 32 mmol/L [facility] Anion Gap 9 7 - 16 [facility] Glucose 197(H) 70 - 100 mg/dL [facility] BUN 11 8 - 25 mg/dL [facility] Creatinine 1.1 0.5 - 1.3 mg/dL [facility] Comment: NOTE: Estimated GFR (Cockroft-Gault) will NOT be calculated unless patient Height and Weight were entered. Also, Kidney Disease Stage (GFR) and Estimated GFR (Cockroft-Gault) will NOT be calculated if Creatinine result is <0.2. Kidney Disease Stage 75 mL/MIN [facility] Comment: NOTE; ??The GFR is an [...] on dialysis Est GFR (Cockcroft-G) 92 ml/MIN [facility] Comment: Estimated GFR(Cockroft-Gault)is used to calculate patient medication dosage Calcium 8.2(L) 8.6 - 10.3 mg/dL [facility] Total Protein 6.3(L) 6.4 - 8.3 g/dL [facility] Albumin 3.6 3.5 - 5.0 g/dL [facility] Globulin 2.7 2.3 - 3.5 gm/dL [facility] Albumin/Globulin Ratio 1.3 1.1 - 1.8 [facility] Total Bilirubin 0.2 0.0 - 1.2 mg/dL [facility] AST 19 0 - 40 U/L [facility] ALT 28 0 - 41 U/L [facility] Alkaline Phosphatase 65 40 - 129 U/L [facility] 08/24/2020 3:28 AM WIRE MESH KNITTER 08/24/2020 4:02 AM WIRE MESH KNITTER Narrative Resulting Agency Comment REBA us Moises Rodriguez MD LAB BLOOD ORDERABLES Final Result [facility] [address] [place] [address], [facility] [phone] * (ABNORMAL) CBC with auto differential (08/24/2020 3:28 AM WIRE MESH KNITTER) WBC 2.0(L) 3.8 - 9.9 X10 3/ul [facility] RBC 4.85 4.30 - 5.80 x10 6/ul [facility] Hemoglobin 12.5(L) 13.0 - 17.5 g/dL [facility] Hct 38.1(L) 38.9 - 50.3 % [facility] MCV 78.6(L) 81.3 - 96.4 fl [facility] MCH 25.8(L) 27.1 - 33.3 pg [facility] MCHC 32.8 32.3 - 35.7 g/dl [facility] RDW 13.9 11.1 - 14.9 % [facility] Plt Count 151 150 - 400 x10 3/ul [facility] MPV 9.5 9.1 - 12.3 fl [facility] Neut % 60.2 % [facility] [employer] [facility] Immature Gran % 0.0 % [facility] Lymph % 34.7 % [facility] E AST - [facility] [place] % 5.1 % [facility] Eos % 0.0 % [facility] E AST - [facility] AUTO BASO % 0.0 % [facility] NEUTROPHIL ABS # 1.2(L) 1.7 - 6.5 x10 3/ul [facility] Immature Gran # 0.0 0.0 - 0.1 x10 3/ul [facility] Absolute Lymphs (auto) 0.7(L) 0.8 - 3.3 x10 3/ul [facility] Absolute Monos (auto) 0.1(L) 0.2 - 0.8 x10 3/ul [facility] Absolute Eos (auto) 0.0 0.0 - 0.5 x10 3/ul [facility] BASOPHIL ABS # 0.0 0.0 - 0.1 x10 3/ul [facility] Nucleat RBC Rel Count 0.0 #/100WBC [facility] NRBC abs 0.00 0.00 - 0.01 x10 3/ul [facility] Absolute Neutrophils 1,200 200 - 8,000 /ul [facility] 08/24/2020 3:28 AM WIRE MESH KNITTER 08/24/2020 4:02 AM WIRE MESH KNITTER Narrative Resulting Agency Comment REBA us Moises Rodriguez MD LAB BLOOD ORDERABLES Final Result Performing Organization Address [facility] [address] [facility] Co de Phone Number [address] [phone] * (ABNORMAL) Influenza A/B, RSV, and COVID-19 PCR (08/23/2020 9:59 PM WIRE MESH KNITTER) [facility] Influenza A RNA NEGATIVE NEGATIVE [facility] Influenza B RNA NEGATIVE NEGATIVE [facility] RSV RNA NEGATIVE NEGATIVE [facility] COVID-19 RNA POSITIVE(A) [facility] Comment: Testing was performed on the 9Flava Xpert Xpress SARS-CoV-2 real-time RT-PCR platform under FDA Emergency Use Authorization. This test is validated only for appropriately collected nasopharyngeal swab specimens. 08/23/2020 9:59 PM WIRE MESH KNITTER 08/23/2020 10:14 PM WIRE MESH KNITTER Narrative Resulting Agency Comment ER us Daphney Rasmussen MD LAB MICROBIOLOGY - GENERAL O RDERABLES Final Result Performing Organization Address [facility] [address] [facility]/ZIP Co de Phone Number [address] [phone] * (ABNORMAL) CBC with auto differential (08/23/2020 9:12 PM WIRE MESH KNITTER) Pathologist [facility] WBC 1.7(L) 3.8 - 9.9 X10 3/ul [facility] RBC 5.11 4.30 - 5.80 x10 6/ul [facility] Hemoglobin 13.2 13.0 - 17.5 g/dL [facility] Hct 39.5 38.9 - 50.3 % [facility] MCV 77.3(L) 81.3 - 96.4 fl [facility] MCH 25.8(L) 27.1 - 33.3 pg [facility] MCHC 33.4 32.3 - 35.7 g/dl [facility] RDW 13.6 11.1 - 14.9 % [facility] Plt Count 156 150 - 400 x10 3/ul [facility] MPV 9.6 9.1 - 12.3 fl [facility] Neut % 63.3 % [facility] Immature Gran % 0.0 % [facility] Lymph % 28.5 % [facility] AST - [facility] [place] % 7.0 % [facility] Eos % 0.6 % [facility] AUTO BASO % 0.6 % [facility] NEUTROPHIL ABS # 1.1(L) 1.7 - 6.5 x10 3/ul [facility] Immature Gran # 0.0 0.0 - 0.1 x10 3/ul [facility] Absolute Lymphs (auto) 0.5(L) 0.8 - 3.3 x10 3/ul [facility] Absolute Monos (auto) 0.1(L) 0.2 - 0.8 x10 3/ul [facility] Absolute Eos (auto) 0.0 0.0 - 0.5 x10 3/ul [facility] BASOPHIL ABS # 0.0 0.0 - 0.1 x10 3/ul [facility] Nucleat RBC Rel Count 0.0 #/100WBC [facility] NRBC abs 0.00 0.00 - 0.01 x10 3/ul [facility] Absolute Neutrophils 1,100 200 - 8,000 /ul [facility] 08/23/2020 9:12 PM WIRE MESH KNITTER 08/23/2020 9:18 PM WIRE MESH KNITTER Narrative Resulting Agency Comment ER Daphney Rasmussen MD LAB BLOOD ORDERABLES Final R esult Performing Organization Address City/[facility] [address]/ZIP Co de Phone Number [address] [phone] * Blood culture Blood (08/23/2020 8:35 PM WIRE MESH KNITTER) CULTURE BLOOD ADULT (SET OF 2) NO GROWTH DAY 5 [facility] Blood 08/23/2020 8:35 PM WIRE MESH KNITTER 08/23/2020 8:45 PM WIRE MESH KNITTER Narrative [facility] - 08/29/2020 12:45 AM WIRE MESH KNITTER LHAND BC Draw Resulting Agency Comment LHAND BC Draw ?? Daphney Rasmussen MD LAB MICROBIOLOGY - GENERAL O RDERABLES Final Result Performing Organization Address [facility] [place] [address], [facility] [phone] * Blood culture Blood (08/23/2020 8:33 PM WIRE MESH KNITTER) CULTURE BLOOD ADULT (SET OF 2) NO GROWTH DAY 5 [facility] Blood 08/23/2020 8:33 PM WIRE MESH KNITTER 08/23/2020 8:45 PM WIRE MESH KNITTER Narrative [facility] - 08/29/2020 12:45 AM WIRE MESH KNITTER RARM BC Draw Resulting Agency Comment RARM BC Draw ?? Daphney Rasmussen MD LAB MICROBIOLOGY - GENERAL O RDERABLES Final Result Performing Organization Address [facility] [place] [address], [facility] [phone] * Ferritin (08/23/2020 8:32 PM WIRE MESH KNITTER) Ferritin 194.0 30.0 - 400.0 ng/mL [facility] 08/23/2020 8:32 PM WIRE MESH KNITTER 08/23/2020 8:45 PM WIRE MESH KNITTER Narrative Resulting Agency Comment REBA Daphney Rasmussen MD LAB BLOOD ORDERABLES Final R [facility] Performing Organization Address City/[facility] [address]/ZIP Co de Phone Number [facility] [address] [phone] * (ABNORMAL) Lactate dehydrogenase (LD) (08/23/2020 8:32 PM WIRE MESH KNITTER) Lactate Dehydrogenase 278(H) 100 - 250 U/L [facility] Comment: SLIGHTLY HEMOLYZED: Hemolysis interferes with the above test. 08/23/2020 8:32 PM WIRE MESH KNITTER 08/23/2020 8:45 PM WIRE MESH KNITTER Narrative Resulting Agency Comment REBA Daphney Rasmussen MD LAB BLOOD ORDERABLES Final R [facility] Performing Organization Address [facility] [address] [facility] de Phone Number [facility] [address] [phone] * (ABNORMAL) Comprehensive metabolic panel (08/23/2020 8:32 PM WIRE MESH KNITTER) Sodium 137 135 - 145 mmol/L [facility] Potassium 3.7 3.3 - 5.1 mmol/L [facility] Chloride 99 96 - 108 mmol/L [facility] Carbon Dioxide 23 22 - 32 mmol/L [facility] Anion Gap 15 7 - 16 [facility] Glucose 159(H) 70 - 100 mg/dL [facility] BUN 12 8 - 25 mg/dL [facility] Creatinine 1.2 0.5 - 1.3 mg/dL [facility] Comment: NOTE: Estimated GFR (Cockroft-Gault) will NOT be calculated unless patient Height and Weight were entered. Also, Kidney Disease Stage (GFR) and Estimated GFR (Cockroft-Gault) will NOT be calculated if Creatinine result is <0.2. Kidney Disease Stage 68 mL/MIN [facility] Comment: NOTE; ??The GFR is an [...] failure or on dialysis Est GFR (Cockcroft-G) 84 ml/MIN [facility] Comment: Estimated GFR(Cockroft-Gault)is used to calculate patient medication dosage Calcium 9.2 8.6 - 10.3 mg/dL [facility] Total Protein 8.0 6.4 - 8.3 g/dL [facility] Albumin 4.4 3.5 - 5.0 g/dL [facility] Globulin 3.6(H) 2.3 - 3.5 gm/dL [facility] Albumin/Globulin Ratio 1.2 1.1 - 1.8 [facility] Total Bilirubin 0.3 0.0 - 1.2 mg/dL [facility] AST 29 0 - 40 U/L [facility] ALT 38 0 - 41 U/L [facility] Alkaline Phosphatase 80 40 - 129 U/L [facility] 08/23/2020 8:32 PM WIRE MESH KNITTER 08/23/2020 8:45 PM WIRE MESH KNITTER Narrative Resulting Agency Comment REBA us Daphney Rasmussen MD LAB BLOOD ORDERABLES Edited [place] [address], [facility] [phone] * (ABNORMAL) D-dimer, quantitative (08/23/2020 8:32 PM WIRE MESH KNITTER) D-Dimer, Quantitative 560(H) <500 ng/mLFEU [facility] Comment: Studies indicate that a D-Dimer level of <500 ng/ml FEU has a >95% negative predictive value for DVT,DIC,PE and other embolus conditions. ??Levels >500 ng/ml FEU may be present in a wide variety of conditions and should not be considered diagnostic of any disease state. Please note unit of measure has changed from ug/ml FEU to ng/ml FEU effective 07/05/19. 08/23/2020 8:32 PM WIRE MESH KNITTER 08/23/2020 8:45 PM WIRE MESH KNITTER Narrative Resulting Agency Comment ER us Daphney Rasmussen MD LAB BLOOD ORDERABLES [place] [address], [facility] [phone] * CTA Chest W IV Contrast - PE (08/23/2020 12:00 AM WIRE MESH KNITTER) Anatomical Region Laterality Modality Body N/A Computed Tomogra phy 08/24/2020 12:4 7 AM WIRE MESH KNITTER Narrative 08/24/2020 12:52 AM WIRE MESH KNITTER Patient Name: MATTHEW WRIGHT ?Ordering : Daphney Rasmussen MD ?? D.O.B: 1970 ? Exam Date: 08/23/20 ?? 0000 ?? Age: 50 ?Sex: Male ? MR#: [id number] ?? Loc: ? RADIOLOGY REPORT ?? Order #[id number] ?? CT Scan ? CTA Chest W IV Contrast - PE ? Signed ? EXAM DESCRIPTION: ?? CTA Chest W IV Contrast - PE ? REASON FOR STUDY: ?? COVID-19 viral pneumonia and shortness of breath ? TECHNIQUE: ??CT angiogram of the chest performed with intravenous contrast ?? using helical scanning technique with dynamic intravenous contrast injection. ?? Reconstructed coronal and sagittal MPR images reviewed. All images stored on ?? PACS. ??3D maximal intensity projection images were reconstructed on ?? independent workstation for interpretation. ??Automated exposure control was ?? used as a dose optimization technique for this examination. ? CONTRAST TYPE/DOSE: ?? 80 cc Optiray 350 injected via ??right antecubital vein ? COMPARISON: ?? None ? FINDINGS: ? VASCULATURE: ??Interpretation for pulmonary embolus is limited secondary to ?? poor timing of the contrast bolus. ??No large central pulmonary embolus. ? LUNGS: ??Right middle lobe and upper lobe peribronchial vascular ground-glass ?? consolidative airspace opacities. ??There is mild peripheral ground-glass ?? consolidative airspace opacities throughout the lungs. ??Likely ?? scarring/pneumatocele in the right lung apex versus tiny loculated ?? pneumothorax. ??No pulmonary edema. ??0.4 cm right lower lobe calcified ?? pulmonary artery is most compatible with old healed granulomatous disease.. ? PLEURA: ??No effusion. No pneumothorax. ? MEDIASTINUM/CRISSY: ??Mildly enlarged mediastinal and hilar lymph nodes, likely ?? reactive. ? HEART: ??Heart size is normal with no pericardial effusion. ? AXILLA: ??No adenopathy. ? CHEST WALL: ??No masses. ??No subcutaneous air. ? HARDWARE/LINES/TUBES: ??None. ? UPPER ABDOMEN: ??Low attenuation liver parenchyma most compatible with hepatic ?? steatosis. ? MUSCULOSKELETAL: ??No significant abnormality. ? OTHER: ??No significant abnormality. ? IMPRESSION: ? 1. ??No acute pulmonary embolus. ? 2. ??Mild bilateral diffuse ground-glass consolidative airspace opacities, ?? worse in the right middle lobe as described above. ?These findings have been commonly described as typical imaging features of ?? COVID-19 pneumonia. However, they are not specific, and can also be seen with ?? influenza pneumonia and organizing pneumonia of various etiologies. ??Findings ?? should be interpreted according to patient's clinical history, and specific ?? viral testing. ? Source: Radiological Society of [place] Expert Consensus Statement on ?? Reporting Chest CT Findings Related to COVID-19. Endorsed by the Society of ?? Thoracic Radiology, the [employer] College of Radiology, and RSNA. Radiology: ?? Cardiothoracic Imaging dated 11/16/2019 ? [email or web address] ? THIS IS AN ELECTRONICALLY VERIFIED FINAL REPORT ?? 08/24/2020 12:52 AM - Electronically signed by Alvaro Ballard ?? Avlaro Ballard ? BB: BB ?? D: ??08/24/2020 12:52 AM ?? T: ??08/24/2020 12:52 AM ? Report ID: [id number] ?? Reading Location: ??[id number] ? REPORT ELECTRONICALLY SIGNED IN OTHER VENDOR SYSTEM ?? Resulting Agency Comment E Procedure Note Alvaro Ballard MD PhD - 08/24/2020 Patient Name: MATTHEW WRIGHT Dr: Daphney Rasmussen MD D.O.B: 1970 Exam Date: 08/23/20 0000 Age: 50 Sex: Male MR#: [id number] Loc: RADIOLOGY REPORT Order #[id number] CT Scan CTA Chest W IV Contrast - PE Signed EXAM DESCRIPTION: CTA Chest W IV Contrast - PE REASON FOR STUDY: COVID-19 viral pneumonia and shortness of breath TECHNIQUE: CT angiogram of the chest performed with intravenous contrast using helical scanning technique with dynamic intravenous contrastinjection. Reconstructed coronal and sagittal MPR images reviewed. All images storedon PACS. 3D maximal intensity projection images were reconstructed on independent workstation for interpretation. Automated exposure controlwas used as a dose optimization technique for this examination. CONTRAST TYPE/DOSE: 80 cc Optiray 350 injected via right antecubitalvein COMPARISON: None FINDINGS: VASCULATURE: Interpretation for pulmonary embolus is limited secondaryto poor timing of the contrast bolus. No large central pulmonary embolus. LUNGS: Right middle lobe and upper lobe peribronchial vascularground-glass consolidative airspace opacities. There is mild peripheral ground-glass consolidative airspace opacities throughout the lungs. Likely scarring/pneumatocele in the right lung apex versus tiny loculated pneumothorax. No pulmonary edema. 0.4 cm right lower lobe calcified pulmonary artery is most compatible with old healed granulomatousdisease.. PLEURA: No effusion. No pneumothorax. MEDIASTINUM/CRISSY: Mildly enlarged mediastinal and hilar lymph nodes,likely reactive. HEART: Heart size is normal with no pericardial effusion. AXILLA: No adenopathy. CHEST WALL: No masses. No subcutaneous air. HARDWARE/LINES/TUBES: None. UPPER ABDOMEN: Low attenuation liver parenchyma most compatible withhepatic steatosis. MUSCULOSKELETAL: No significant abnormality. OTHER: No significant abnormality. IMPRESSION: 1. No acute pulmonary embolus. 2. Mild bilateral diffuse ground-glass consolidative airspace opacities, worse in the right middle lobe as described above. These findings have been commonly described as typical imaging featuresof COVID-19 pneumonia. However, they are not specific, and can also be seenwith influenza pneumonia and organizing pneumonia of various etiologies.Findings should be interpreted according to patient's clinical history, andspecific viral testing. Source: Radiological Society of [place] Expert Consensus Statementon Reporting Chest CT Findings Related to COVID-19. Endorsed by the Societyof Thoracic Radiology, the [employer] College of Radiology, and RSNA.Radiology: Cardiothoracic Imaging dated 11/16/2019 [email or web address]/doi/[email or web address] THIS IS AN ELECTRONICALLY VERIFIED FINAL REPORT 08/24/2020 12:52 AM - Electronically signed by Alvaro Ballard BB: MICHELLE Report ID: [id number] Reading Location: [place] [address] REPORT ELECTRONICALLY SIGNED IN OTHER VENDOR SYSTEM us Daphney Rasmussen MD IMG CT PROCEDURES Final Resu lt * XR Chest 1 View (08/23/2020 12:00 AM WIRE MESH KNITTER) Anatomical Region Laterality Modality Body, Chest N/A Radiographic Padma ging 08/23/2020 9:31 PM WIRE MESH KNITTER Narrative 08/23/2020 9:32 PM WIRE MESH KNITTER Patient Name: MATTHEW WRIGHT ?Ordering Dr: Daphney Rasmussen MD ?? D.O.B: 1970 ? Exam Date: //20 ?? 0000 ?? Age: 50 ?Sex: Male ? MR#: [id number] ?? Loc: ? RADIOLOGY REPORT ?? Order #[id number] ?? Radiology ? Chest 1 View Portable ? Signed ? EXAM DESCRIPTION: ?? Chest 1 View Portable ? REASON FOR STUDY: ?? Cough and shortness of breath today. ??Positive for ?? COVID-19. ? TECHNIQUE: ?? Frontal radiographic view of the chest acquired. ? COMPARISON: ?? Chest radiograph from 08/17/2020. ? FINDINGS: ?LUNGS/PLEURA: There has been interval development of patchy bilateral, ?? basilar predominant airspace opacities, worst at the right lung base. ??There ?? is no evidence of a pleural effusion or pneumothorax. ? HEART/MEDIASTINUM: The heart size is normal. The mediastinal and hilar ?? contours are normal. ? HARDWARE/LINES/TUBES: None. ? BONES: There are no acute or aggressive appearing osseous abnormalities. ? IMPRESSION: ??Multifocal pneumonia, worst at the right lung base, consistent ?? with known COVID-19 pneumonia. ??Short interval radiographic follow-up to ?? resolution is recommended. ? THIS IS AN ELECTRONICALLY VERIFIED FINAL REPORT ?? 08/23/2020 9:32 PM - Electronically signed by Agustín Burden M.D. ?? Agustín Burden M.D. ? AB: AB ?? D: ??08/23/2020 9:32 PM ?? T: ??08/23/2020 9:32 PM ? Report ID: [id number] ?? Reading Location: ??[id number] ? REPORT ELECTRONICALLY SIGNED IN OTHER VENDOR SYSTEM ?? Resulting Agency Comment E Procedure Note Agustín Burden MD - 08/23/2020 Patient Name: MATTHEW WRIGHT Dr: Daphney Rasmussen MD D.O.B: 1970 Exam Date: 08/23/20 0000 Age: 50 Sex: Male MR#: [id number] Loc: RADIOLOGY REPORT Order #[id number] Radiology Chest 1 View Portable Signed EXAM DESCRIPTION: Chest 1 View Portable REASON FOR STUDY: Cough and shortness of breath today. Positive for COVID-19. TECHNIQUE: Frontal radiographic view of the chest acquired. COMPARISON: Chest radiograph from 08/17/2020. FINDINGS: LUNGS/PLEURA: There has been interval development of patchy bilateral, basilar predominant airspace opacities, worst at the right lung base.There is no evidence of a pleural effusion or pneumothorax. HEART/MEDIASTINUM: The heart size is normal. The mediastinal and hilar contours are normal. HARDWARE/LINES/TUBES: None. BONES: There are no acute or aggressive appearing osseous abnormalities. IMPRESSION: Multifocal pneumonia, worst at the right lung base,consistent with known COVID-19 pneumonia. Short interval radiographic follow-up to resolution is recommended. THIS IS AN ELECTRONICALLY VERIFIED FINAL REPORT 08/23/2020 9:32 PM - Electronically signed by Agustín Burden M.D. AB: Report ID: [id number] Reading Location: [place] [address] REPORT ELECTRONICALLY SIGNED IN OTHER VENDOR SYSTEM us Daphney Rasmussen MD IMG XR PROCEDURES Final Resu lt documented in this encounter Visit Diagnoses Not on filedocumented in this encounter Additional Health Concerns Infection Onset Date Last Indicated Resolved Time COVID19 08/23/2020 08/23/2020 09/06/2020 3:07 AM WIRE MESH KNITTER documented as of this encounter Care Teams Commercial Assistant Relationship Specialty Start Date End Date April Gresham NP PCP - General 08/17/20 09/09/20 Monique Garcia MD Referring Physician Gastroenterology 06/11/20 Monique Garcia MD Referring Physician Gastroenterology 06/11/20 documented as of this encounter
--- OUTSIDE RECORDS SUMMARY | 2024-09-03 01:02 | XMS_ITS | Encounter Summary ---
Author Organization [facility] Address [address] [place] [address] Phone Care Team Providers Care Ice Skating Teacher Name Role Phone Monique Garcia MD Unavailable [phone] Monique Garcia MD Unavailable [phone] Nathan Martinez MD Primary Care Provider [phone] Reason for Visit * Reason Onset Date Comments Post-Op Call 11/08/2020 Encounter Details Date Type Department Care Team (Late st Contact Info) Description 11/08/2020 Telephone [facility] Otolaryngology [address] [place] [phone] Debra Garcia LPN Post-Op Call Social History Tobacco Use Types Packs/Day Years [...] encounter Miscellaneous Notes * Telephone Encounter - Debra Garcia - 11/08/2020 10:11 AM CDT Called and left a message to check status post op septo/turbs done 11-07-20 at [facility] with Dr. Weston. Reminder left that f/u is scheduled for 11-12-20 at 11:15am in the [place] office. He was instructed to call the office with any questions or concerns before his follow up appointment. documented in this encounter Plan of Treatment Not on file documented as of this encounter Visit Diagnoses Not on filedocumented in this encounter Additional Health Concerns Infection Onset Date Last Indicated Resolved Time COVID: Recovered Comment:Added based on recent COVID infection. 09/06/2020 09/07/2020 01/04/2021 3:05 AM C DT documented as of this encounter Care Teams Ice Skating Teacher Relationship Specialty Start Date End Date Nathan Martinez MD PCP - General Family Practice 09/10/20 Monique Garcia MD Referring Physician Gastroenterology 06/11/20 Monique Garcia MD Referring Physician Gastroenterology 06/11/20 documented as of this encounter
--- OUTSIDE RECORDS SUMMARY | 2024-09-03 01:02 | XMS_ITS | Encounter Summary ---
Author Organization [facility] Healthcare Address [facility] [place] [address] Care Team Providers Care Animal Attendant Name Role Phone Monique Garcia MD Unavailable [phone] Monique Garcia MD Unavailable [phone] April Gresham NP Primary Care Provider [phone] Encounter Details Date Type Department Care Team (Late st Contact Info) Description 08/24/2020 12:56 AM MARKETING TECHNOLOGY SPECIALIST - 08/24/2020 1:52 PM [facility] Encounter [facility] Daphney Rasmussen MD [facility] [place] [address] Moises Rodriguez MD [facility] [place], [place] [id number] Discharge Disposition: Discharge to home or self [...] Time COVID19 08/23/2020 08/23/2020 09/06/2020 3:07 AM MARKETING TECHNOLOGY SPECIALIST documented as of this encounter Care Teams Animal Attendant Relationship Specialty Start Date End Date April Gresham NP PCP - General 08/17/20 09/09/20 Monique Garcia MD Referring Physician Gastroenterology 06/11/20 Monique Garcia MD Referring Physician Gastroenterology 06/11/20 documented as of this encounter
--- OUTSIDE RECORDS SUMMARY | 2024-09-03 01:03 | XMS_ITS | Encounter Summary ---
Author Organization [facility] Healthcare Address [address] [place] [address] Care Team Providers Care Refrigerator Crater Name Role Phone Unknown, Notinfile Primary Care Provider Unavail able Encounter Details Date Type Department Care Team (Late st Contact Info) Description 05/13/2020 5:02 AM CDT - 05/13/2020 8:00 AM CDT Hospital Encounter [facility] Emergency Department [address] [place] [address] Maura De MD [facility] [place] [place] [address] Rufino Hicks MD [facility] [place] [place] [address] Unknown, Notinfile Discharge Disposition: Discharge to home or self care Social History Tobacco Use Types Packs/Day Years Used Date Smoking Tobacco: Never Assessed Sex and Gender Information Value Date Recorded Sex Assigned at Not on file Legal Sex Male 2:58 AM CDT Gender Identity Male 03/10/2022 6:57 PM CDT Sexual Orientation Not on file documented as of this encounter Last Filed Vital Signs Vital Sign Reading Time Taken Comments Blood Pressure 151/102 05/13/2020 5:07 AM CDT Pulse 77 05/13/2020 5:07 AM CDT Temperature 36.5 ??C (97.7 ??F) 05/13/2020 5:07 AM CD T Respiratory Rate - - Oxygen Saturation 97% 05/13/2020 5:07 AM CDT Inhaled Oxygen Concentration - - Weight 93.1 kg (205 lb 4 oz) 05/13/2020 5:07 AM CDT Height 180.3 cm (5' 11 ) 05/13/2020 5:07 AM CDT Body Mass Index 28.63 05/13/2020 5:07 AM CDT documented in this encounter Medications at Time of Discharge escitalopram (LEXAPRO) 20 mg tablet Take 20 mg by mouth daily 06/11/2020 metFORMIN (GLUCOPHAGE) 500 mg tablet Take 500 mg by mouth 2 (two) times a day with meals 06/11/2020 traZODone (DESYREL) 50 mg tablet Take 50 mg by mouth nightly 06/11/2020 documented as of this encounter Discharge Disposition Disposition Code Departure Means Destination Discharge to home or self care documented in this encounter Plan of Treatment Not on file documented as of this encounter Procedures Procedure Name Priority Date/Time Associated Diagnosis Comments SCAN - LABS 05/15/2020 12:[address] ABDOMEN PELVIS W CONTRAST 05/13/2020 5:33 AM CDT CBC WITH AUTO DIFFERENTIAL Routine 05/13/2020 5:18 AM CDT LIPASE Routine 05/13/2020 5:18 AM CDT COMPREHENSIVE METABOLIC PANEL Routine 05/13/2020 5:18 AM CDT documented in this encounter Results * SCAN - LABS (05/15/2020 12:00 AM CDT) Narrative 05/15/2020 12:00 AM CDT Ordered by an unspecified provider. us Historical Provider Final Res ult * CT Abdomen Pelvis W Contrast (05/13/2020 5:33 AM CDT) Anatomical Region Laterality Modality Body N/A Computed Tomogra phy 05/13/2020 6:40 AM CDT Narrative 05/13/2020 6:42 AM CDT Patient Name: MATTHEW WRIGHT N ?Ordering Dr: Maura De MD ?? D.O.B: 1970 ? Exam Date: 05/13/ ?? 0533 ?? Age: 50 ?Sex: Male ? MR#: [id number] ?? Loc: ? RADIOLOGY REPORT ?? Order #[id number] ?? CT Scan ? CT Abd/Pelvis W IV Contrast ? Signed ? EXAM DESCRIPTION: ?? CT Abd/Pelvis W IV Contrast ? REASON FOR STUDY: ?? Acute left lower quadrant pain with diarrhea. ? TECHNIQUE: ??CT scan of the abdomen and pelvis performed with intravenous and ? without oral contrast using helical scanning technique with dynamic ?? intravenous contrast injection. Reconstructed coronal and sagittal MPR images ?? reviewed. All images stored on PACS. ? Automated exposure control was used as a dose optimization technique for this ?? examination. ? CONTRAST TYPE/DOSE: ?? PATIENT RECIEVED 100CC OPTIRAY 350 INJECTED INTO RAC ? COMPARISON: ?? None ? FINDINGS: ? LOWER CHEST: ??No significant [...] No hydronephrosis or hydroureter. Symmetric enhancement. ? Urinary bladder is unremarkable. ? GI: ??No dilated bowel loops. No obvious wall thickening. ??Normal appendix. ??No ?? significant diverticular disease. ? PERITONEUM: ??No ascites or free air. ? RETROPERITONEUM: ??No mass or adenopathy. ? REPRODUCTIVE: ??No significant abnormality. ? VASCULATURE: ??Atherosclerotic disease in the aorta and iliacs ? MUSCULOSKELETAL: ??No significant abnormality. ? OTHER: ??No other abnormality. ? IMPRESSION: ?? No acute finding. ? THIS IS AN ELECTRONICALLY VERIFIED FINAL REPORT ?? 05/13/2020 6:42 AM - Electronically signed by Frank Varner M.D. ?? Frank Varner M.D. ? NC: NC ?? D: ??05/13/2020 6:42 AM ?? T: ??05/13/2020 6:42 AM ? Report ID: [id number] ?? Reading Location: ??[id number] ? REPORT ELECTRONICALLY SIGNED IN OTHER VENDOR SYSTEM ?? Resulting Agency Comment E Procedure Note Frank Varner MD - 05/13/2020 Patient Name: MATTHEW WRIGHT Dr: Maura De MD D.O.B: 1970 Exam Date: 05/13/20 0533 Age: 50 Sex: Male MR#: [id number] Loc: RADIOLOGY REPORT Order #[id number] CT Scan CT Abd/Pelvis W IV Contrast Signed EXAM DESCRIPTION: CT Abd/Pelvis W IV Contrast REASON FOR STUDY: Acute left lower quadrant pain with diarrhea. TECHNIQUE: CT scan of the abdomen and pelvis performed with intravenousand without oral contrast using helical scanning technique with dynamic intravenous contrast injection. Reconstructed coronal and sagittal MPRimages reviewed. All images stored on PACS. Automated exposure control was used as a dose optimization technique forthis examination. CONTRAST TYPE/DOSE: PATIENT RECIEVED 100CC OPTIRAY 350 INJECTED INTORAC COMPARISON: None FINDINGS: LOWER CHEST: No significant pulmonary abnormalities. [...] visualized stones. No hydronephrosis or hydroureter. Symmetricenhancement. Urinary bladder is unremarkable. GI: No dilated bowel loops. No obvious wall thickening. Normalappendix. No significant diverticular disease. PERITONEUM: No ascites or free air. RETROPERITONEUM: No mass or adenopathy. REPRODUCTIVE: No significant abnormality. VASCULATURE: Atherosclerotic disease in the aorta and iliacs MUSCULOSKELETAL: No significant abnormality. OTHER: No other abnormality. IMPRESSION: No acute finding. THIS IS AN ELECTRONICALLY VERIFIED FINAL REPORT 05/13/2020 6:42 AM - Electronically signed by Frank Varner M.D. NC: KERI Report ID: [id number] Reading Location: [place] [address] REPORT ELECTRONICALLY SIGNED IN OTHER VENDOR SYSTEM Maura De MD IMG CT PROCEDURES Marilee l Result * Lipase (05/13/2020 5:18 AM CDT) Lipase 33 13 - 60 U/L [facility] 05/13/2020 5:18 AM CDT 05/13/2020 5:24 AM CDT Narrative Resulting Agency Comment ER us Maura De MD LAB BLOOD ORDERABLES F inal Result [address] [phone] * (ABNORMAL) Comprehensive metabolic panel (05/13/2020 5:18 AM CDT) [facility] Sodium 138 135 - 145 mmol/L [facility] Potassium 4.1 3.3 - 5.1 mmol/L [facility] Chloride 99 96 - 108 mmol/L [facility] Carbon Dioxide 25 22 - 32 mmol/L [facility] Anion Gap 14 7 - 16 [facility] Glucose 178(H) 70 - 100 mg/dL [facility] BUN 10 8 - 25 mg/dL [facility] Creatinine 0.9 0.5 - 1.3 mg/dL [facility] Comment: NOTE: Estimated GFR (Cockroft-Gault) will NOT be calculated unless patient Height and Weight were entered. Also, Kidney Disease Stage (GFR) and Estimated GFR (Cockroft-Gault) will NOT be calculated if Creatinine result is <0.2. Kidney Disease Stage >90 mL/MIN [facility] Comment: NOTE; ??The GFR is an [...] on dialysis Est GFR (Cockcroft-G) 113 ml/MIN [facility] Comment: Estimated GFR(Cockroft-Gault)is used to calculate patient medication dosage Calcium 9.7 8.6 - 10.3 mg/dL [facility] Total Protein 7.3 6.4 - 8.3 g/dL [facility] Albumin 4.6 3.5 - 5.0 g/dL [facility] Globulin 2.7 2.3 - 3.5 gm/dL [facility] Albumin/Globulin Ratio 1.7 1.1 - 1.8 [facility] Total Bilirubin 0.3 0.0 - 1.2 mg/dL [facility] AST 24 0 - 40 U/L [facility] ALT 33 0 - 41 U/L [facility] Alkaline Phosphatase 59 40 - 129 U/L [facility] 05/13/2020 5:18 AM CDT 05/13/2020 5:24 AM CDT Narrative Resulting Agency Comment ER us Maura De MD LAB BLOOD ORDERABLES F inal Result [address] [phone] * (ABNORMAL) CBC with auto differential (05/13/2020 5:18 AM CDT) WBC 5.2 3.8 - 9.9 X10 3/ul [facility] RBC 5.50 4.30 - 5.80 x10 6/ul [facility] Hemoglobin 14.4 13.0 - 17.5 g/dL [facility] Hct 44.1 38.9 - 50.3 % [facility] MCV 80.2(L) 81.3 - 96.4 fl [facility] MCH 26.2(L) 27.1 - 33.3 pg [facility] MCHC 32.7 32.3 - 35.7 g/dl [facility] RDW 14.3 11.1 - 14.9 % [facility] Plt Count 267 150 - 400 x10 3/ul [facility] MPV 9.1 9.1 - 12.3 fl [facility] Neut % 50.1 % [facility] E AST [employer] [facility] Immature Gran % 0.2 % [facility] Lymph % 39.7 % [facility] E AST - [email or web address] [place] % 7.5 % [facility] E AST - [email or web address] Eos % 1.9 % [facility] E [facility] AUTO BASO % 0.6 % [facility] NEUTROPHIL ABS # 2.6 1.7 - 6.5 x10 3/ul [facility] Immature Gran # 0.0 0.0 - 0.1 x10 3/ul [facility] Absolute Lymphs (auto) 2.1 0.8 - 3.3 x10 3/ul [facility] Absolute Monos (auto) 0.4 0.2 - 0.8 x10 3/ul [facility] Absolute Eos (auto) 0.1 0.0 - 0.5 x10 3/ul [facility] BASOPHIL ABS # 0.0 0.0 - 0.1 x10 3/ul [facility] Nucleat RBC Rel Count 0.0 #/100WBC [facility] NRBC abs 0.00 0.00 - 0.01 x10 3/ul [facility] Absolute Neutrophils 2,600 200 - 8,000 /ul [facility] 05/13/2020 5:18 AM CDT 05/13/2020 5:24 AM CDT Narrative Resulting Agency Comment ER us Maura De MD LAB BLOOD ORDERABLES F inal Result [place] [address] [phone] documented in this encounter Visit Diagnoses Not on filedocumented in this encounter Care Teams Refrigerator Crater Relationship Specialty Start Date End Date Unknown, Notinfile PCP - General 05/13/20 05/22/20 documented as of this encounter
--- OUTSIDE RECORDS SUMMARY | 2024-09-03 01:03 | XMS_ITS | Encounter Summary ---
Author Organization [facility] Healthcare Address [facility] [place] [address] Care Team Providers Care Glass Bulb Silverer Name Role Phone Unknown, Notinfile Primary Care Provider Unavail able Reason for Visit * Reason Comments Abdominal Pain Encounter Details Date Type Department Care Team (Late st Contact Info) Description 05/13/2020 2:58 AM CDT - 05/13/2020 5:48 AM CDT Emergency [facility] Emergency Department [address] [place] [address] Discharge Disposition: Left without being seen Social History Tobacco Use Types Packs/Day Years Used Date Smoking Tobacco: Never Smokeless Tobacco: Current Chew Sex and Gender Information Value Date Recorded Sex Assigned at Not on file Legal Sex Male 2:58 AM CDT Gender Identity Male 03/10/2022 6:57 PM CDT Sexual Orientation Not on file documented as of this encounter Last Filed Vital Signs Vital Sign Reading Time Taken Comments Blood Pressure 115/82 05/13/2020 3:00 AM CDT Pulse 82 05/13/2020 3:00 AM CDT Temperature 36.7 ??C (98.1 ??F) 05/13/2020 3:00 AM CD T Respiratory Rate 14 05/13/2020 3:00 AM CDT Oxygen Saturation 97% 05/13/2020 3:00 AM CDT Inhaled Oxygen Concentration - - Weight 90.7 kg (200 lb) 05/13/2020 3:00 AM CDT Height 180.3 cm (5' 11 ) 05/13/2020 3:00 AM CDT Body Mass Index 27.89 05/13/2020 3:00 AM CDT documented in this encounter Discharge Diagnoses Diagnosis Procedure and treatment not carried out due to patient leaving prior to being seen by health care provider - PROCEDURE AND TREATMENT NOT CARRIED OUT DUE TO PATIENT LEAVING PRIOR TO BEING SEEN BY HEALTH CARE [place] Unspecified abdominal pain - UNSPECIFIED ABDOMINAL PAIN documented in this encounter Medications at Time of Discharge escitalopram (LEXAPRO) 20 mg tablet Take 20 mg by mouth daily 06/11/2020 metFORMIN (GLUCOPHAGE) 500 mg tablet Take 500 mg by mouth 2 (two) times a day with meals 06/11/2020 traZODone (DESYREL) 50 mg tablet Take 50 mg by mouth nightly 06/11/2020 documented as of this encounter Discharge Disposition Disposition Code Departure Means Destination Left without being seen documented in this encounter ED Notes * Linda Hernadez RN - 05/13/2020 3:00 AM CDT Pt comes with c/o cramping lower abd pain, nausea, vomiting and diarrhea x 3 days. Pt states finding streaks of blood in the emesis. Pt endorses being unable to keep food or liquids down. documented in this encounter Plan of Treatment Not on file documented as of this encounter Procedures Procedure Name Priority Date/Time Associated Diagnosis Comments POCT GLUCOSE DEVICE Routine 05/13/2020 3 :02 AM CDT documented in this encounter Results * POCT glucose (05/13/2020 3:02 AM CDT) Glucose, POC 143 70 - 199 mg/dL [facility] Blood specimen (specimen) 05/13/2020 3:02 AM CDT 05/13/2020 3:02 AM CDT us Notinfile Unknown LAB POCT ORDERABLES - DEVICE F inal Result [facility] [place] [address] documented in this encounter Visit Diagnoses Not on filedocumented in this encounter Historical Medications * This list may reflect changes made after this encounter. metFORMIN (GLUCOPHAGE) 500 mg tablet Take 500 mg by mouth 2 (two) times a day with meals 06/11/2020 traZODone (DESYREL) 50 mg tablet Take 50 mg by mouth nightly 06/11/2020 escitalopram (LEXAPRO) 20 mg tablet Take 20 mg by mouth daily 06/11/2020 added in this encounter Orders Lab Orders Without Results Count Last Ordered D ate First Ordered Date POCT GLUCOSE DEVICE 1 05/13/2020 documented in this encounter Care Teams Glass Bulb Silverer Relationship Specialty Start Date End Date Unknown, Notinfile PCP - General 05/13/20 05/22/20 documented as of this encounter
--- OUTSIDE RECORDS SUMMARY | 2024-09-03 01:03 | XMS_ITS | Encounter Summary ---
Author Organization [facility] Healthcare Address [address] [place] [address] Care Team Providers Care Crank Hand Name Role Phone Monique Garcia MD Unavailable [phone] Monique Garcia MD Unavailable [phone] April Gresham NP Primary Care Provider [phone] Encounter Details Date Type Department Care Team (Late st Contact Info) Description 08/17/2020 6:00 PM QUOTER - 08/18/2020 12:50 AM [facility] Emergency [facility] Emergency Department [address] [place] [address] Althea Petty DO [address] [place] [id number] Unknown, Notinfile Discharge Disposition: Discharge to home [...] Sign Reading Time Taken Comments Blood Pressure 126/79 08/17/2020 6:14 PM QUOTER Pulse 92 08/17/2020 6:14 PM QUOTER Temperature 37.4 ??C (99.3 ??F) 08/17/2020 6:14 PM CS T Respiratory Rate - - Oxygen Saturation 96% 08/17/2020 6:14 PM QUOTER Inhaled Oxygen Concentration - - Weight 94.8 kg (209 lb) 08/17/2020 6:14 PM QUOTER Height 180.3 cm (5' 11 ) 08/17/2020 6:14 PM QUOTER Body Mass Index 29.15 08/17/2020 6:14 PM QUOTER documented in this encounter Medications at Time [...] Date/Time Associated Diagnosis Comments SCAN - LABS 08/20/2020 12:00 AM QUOTER XR CHEST 1 VIEW 08/18/2020 12:00 AM QUOTER URINALYSIS AND REFLEX TO MICROSCOPIC AND CULTURE Routine 08/17/2020 9:49 PM QUOTER INFLUENZA A/B, RSV, AND COVID-19 PCR Routine 08/17/2020 8:36 PM QUOTER BLOOD CULTURE Routine 08/17/2020 8:04 PM QUOTER ECG 12-LEAD 08/17/2020 8:00 PM QUOTER BLOOD CULTURE Routine 08/17/2020 6:43 PM QUOTER SEPSIS LACTATE Routine 08/17/2020 6:42 PM QUOTER CBC WITH AUTO DIFFERENTIAL Routine 08/17/2020 6:42 PM QUOTER LIPASE Routine 08/17/2020 6:42 PM QUOTER COMPREHENSIVE METABOLIC PANEL Routine 08/17/2020 6:[address] ABDOMEN PELVIS W CONTRAST 08/17/2020 12:00 AM QUOTER documented in this encounter Results * SCAN - LABS (08/20/2020 12:00 AM QUOTER) Narrative 08/20/2020 12:00 AM QUOTER Ordered by an unspecified provider. us Historical Provider MD Final Res ult * XR Chest 1 View (08/18/2020 12:00 AM QUOTER) Anatomical Region Laterality Modality Body, Chest N/A Radiographic Padma ging 08/18/2020 12:4 5 AM QUOTER Narrative 08/18/2020 12:46 AM QUOTER Patient Name: MATTHEW WRIGHT ?Ordering Dr: Althea Petty DO ?? D.O.B: 1970 ? Exam Date: 08/18/20 ?? 0000 ?? Age: 50 ?Sex: Male ? MR#: [id number] ?? Loc: ? RADIOLOGY REPORT ?? Order #[id number] ?? Radiology ? Chest 1 View Portable ? Signed ? EXAM DESCRIPTION: ?? Chest 1 View Portable ? REASON FOR STUDY: ?? LLQ ABD PAIN ONSET LAST NIGHT WITH NAUSEA AND VOMITING, ?? FEVER ? TECHNIQUE: ?? Portable upright AP view of the chest. ? COMPARISON: ??None ? FINDINGS: ? LUNGS AND PLEURA: No focal opacity, large effusion, or pneumothorax identified. ? HEART/MEDIASTINUM: Trachea midline. Cardiac silhouette normal in size. ?? Mediastinal contours appear normal. ? BONES: Unremarkable. ? UPPER ABDOMEN: Unremarkable. ? IMPRESSION: ??No acute abnormality identified. ? THIS IS AN ELECTRONICALLY VERIFIED FINAL REPORT ?? 08/18/2020 12:46 AM - Electronically signed by Kurt Love M.D. ?? Kurt Love M.D. ? AR: AR ?? D: ??08/18/2020 12:46 AM ?? T: ??08/18/2020 12:46 AM ? Report ID: [id number] ?? Reading Location: ??[id number] ? REPORT ELECTRONICALLY SIGNED IN OTHER VENDOR SYSTEM ?? Resulting Agency Comment E Procedure Note Kurt Love MD - 08/18/2020 Patient Name: ADRIANAMATTHEW Pop Dr: Althea Petty DO, D.O.B: 1970 Exam Date: 08/18/20 0000 Age: 50 Sex: Male MR#: [id number] Loc: RADIOLOGY REPORT Order #[id number] Radiology Chest 1 View Portable Signed EXAM DESCRIPTION: Chest 1 View Portable REASON FOR STUDY: LLQ ABD PAIN ONSET LAST NIGHT WITH NAUSEA ANDVOMITING, FEVER TECHNIQUE: Portable upright AP view of the chest. COMPARISON: None FINDINGS: LUNGS AND PLEURA: No focal opacity, large effusion, or pneumothoraxidentified. HEART/MEDIASTINUM: Trachea midline. Cardiac silhouette normal in size. Mediastinal contours appear normal. BONES: Unremarkable. UPPER ABDOMEN: Unremarkable. IMPRESSION: No acute abnormality identified. THIS IS AN ELECTRONICALLY VERIFIED FINAL REPORT 08/18/2020 12:46 AM - Electronically signed by Kurt Love M.D. AR: TORSTEN Report ID: [id number] Reading Location: [place] [address] REPORT ELECTRONICALLY SIGNED IN OTHER VENDOR SYSTEM Althea Petty DO IMG XR PROCEDURES Final Result * (ABNORMAL) Urinalysis reflex to microscopic and culture (08/17/2020 9:49 PM QUOTER) Ur Collection Type OTHER [facility] Ur Culture Indicated? C S NOT INDICATED [facility] Urine Color YELLOW YELLOW [facility] Urine Clarity CLEAR CLEAR [facility] Urine Glucose (UA) NORMAL NORMAL mg/dL [facility] Urine Bilirubin NEGATIVE NEGATIVE mg/dl [facility] Urine Ketones NEGATIVE NEGATIVE mg/dL [facility] Ur Specific [place] 1.059(H) 1.005 - 1.025 [facility] Urine Blood NEGATIVE NEGATIVE mg/dl [facility] Urine pH 5.0 5.0 - 8.0 [facility] Urine Protein NEGATIVE NEGATIVE mg/dL [facility] Urine Urobilinogen NORMAL NORMAL mg/dL [facility] Urine Nitrite NEGATIVE NEGATIVE [facility] Ur Leukocyte Esterase NEGATIVE NEGATIVE Rosy/ul [facility] Ur Microscopic Review Not Indicated [facility] 08/17/2020 9:49 PM QUOTER 08/17/2020 10:11 PM QUOTER Narrative [facility] - 08/17/2020 10:18 PM QUOTER Indication(s) for ordering ?? Other - enter in comments kd abd pain Other Resulting Agency Comment ER Althea Petty DO LAB MICROBIOLOGY - GENERAL ORDE RABLES Final Result Performing Organization Address City/[facility]/ZIP Co de Phone Number [address] [phone] * Influenza A/B, RSV, and COVID-19 PCR (08/17/2020 8:36 PM QUOTER) [facility] Influenza A RNA NEGATIVE NEGATIVE [facility] Influenza B RNA NEGATIVE NEGATIVE [facility] RSV RNA NEGATIVE NEGATIVE [facility] COVID-19 RNA NEGATIVE [facility] Comment: Testing was performed on the [employer] Xpress SARS-CoV-2 real-time RT-PCR platform under FDA Emergency Use Authorization. ??This test is validated only for appropriately collected nasopharyngeal swab specimens. ??A negative result does not preclude infection with COVID-19 and should not be used as the sole basis for treatment or other patient management decisions. 08/17/2020 8:36 PM QUOTER 08/17/2020 8:37 PM QUOTER Narrative Resulting Agency Comment ER Althea Petty DO LAB MICROBIOLOGY - GENERAL ORDE RABLES Final Result Performing Organization Address [facility] Co de Phone Number [address] [phone] * Blood culture Blood (08/17/2020 8:04 PM QUOTER) Pathologist [facility] CULTURE BLOOD ADULT (SET OF 2) NO GROWTH DAY 5 [facility] Blood 08/17/2020 8:04 PM QUOTER 08/17/2020 8:11 PM QUOTER Althea Petty DO LAB MICROBIOLOGY - GENERAL ORDE RABLES Final Result Performing Organization Address City/[facility]/ZIP Co de Phone Number [facility] [address] [place] [address], [facility] [phone] * ECG 12 lead (08/17/2020 8:00 PM QUOTER) Ventricular Rate EKG/Min 95 BPM [facility] Atrial Rate 95 BPM [facility] MD-Interval (MSEC) 176 ms [facility] QRS-Interval (MSEC) 84 ms [facility] QT-Interval (MSEC) 362 ms [facility] QTc 454 ms [facility] P Felt 23 degrees [facility] R Felt 42 degrees [facility] T Felt 31 degrees [facility] Diagnosis Normal sinus rhythm Normal ECG No previous ECGs available [facility] 08/17/2020 8:00 PM QUOTER 08/18/2020 11:15 AM QUOTER Narrative Resulting Agency Comment DENA us Althea Petty DO ECG ORDERABLES Final Result [facility] * Blood culture Blood (08/17/2020 6:43 PM QUOTER) CULTURE BLOOD ADULT (SET OF 2) NO GROWTH DAY 5 [facility] Blood 08/17/2020 6:43 PM QUOTER 08/17/2020 8:10 PM QUOTER Althea Petty DO LAB MICROBIOLOGY - GENERAL ORDE RABLES Final Result Performing Organization Address City/[facility]/ZIP Co de Phone Number [place] [id number] [address] [phone] * (ABNORMAL) Sepsis Lactate (08/17/2020 6:42 PM QUOTER) Sepsis lactate 2.2(HH) mmol/L [facility] Comment: CRITICAL VALUE CALLED and REPEATED. at:1915 08/17/20 by:Deidre Nguyễn to:[id number] Lactate Reference Range: 0.5 - 2.2 mmol/L 08/17/2020 6:42 PM QUOTER 08/17/2020 6:49 PM QUOTER Narrative Resulting Agency Comment ER us Jennifer MONTENEGRO LAB BLOOD ORDERABLE S Final Result [facility] [address] [place] [address], [facility] [phone] * Lipase (08/17/2020 6:42 PM QUOTER) Pathologist [facility] Lipase 30 13 - 60 U/L [facility] 08/17/2020 6:42 PM QUOTER 08/17/2020 6:49 PM QUOTER Narrative Resulting Agency Comment ER Althea Petty DO LAB BLOOD ORDERABLES Final Resu lt [facility] [address] [place] [address], [facility] [phone] * (ABNORMAL) Comprehensive metabolic panel (08/17/2020 6:42 PM QUOTER) [facility] Sodium 134(L) 135 - 145 mmol/L [facility] Potassium 3.8 3.3 - 5.1 mmol/L [facility] Chloride 98 96 - 108 mmol/L [facility] Carbon Dioxide 26 22 - 32 mmol/L [facility] Anion Gap 10 7 - 16 [facility] Glucose 175(H) 70 - 100 mg/dL [facility] BUN 8 8 - 25 mg/dL [facility] Creatinine 1.0 0.5 - 1.3 mg/dL [facility] Comment: NOTE: Estimated GFR (Cockroft-Gault) will NOT be calculated unless patient Height and Weight were entered. Also, Kidney Disease Stage (GFR) and Estimated GFR (Cockroft-Gault) will NOT be calculated if Creatinine result is <0.2. Kidney Disease Stage 84 mL/MIN [facility] Comment: NOTE; ??The GFR is an estimated [...] failure or on dialysis Est GFR (Cockcroft-G) 103 ml/MIN [facility] Comment: Estimated GFR(Cockroft-Gault)is used to calculate patient medication dosage Calcium 9.4 8.6 - 10.3 mg/dL [facility] Total Protein 7.6 6.4 - 8.3 g/dL [facility] Albumin 4.5 3.5 - 5.0 g/dL [facility] Globulin 3.1 2.3 - 3.5 gm/dL [facility] Albumin/Globulin Ratio 1.5 1.1 - 1.8 [facility] Total Bilirubin <0.2 0.0 - 1.2 mg/dL [facility] AST 34 0 - 40 U/L [facility] ALT 50(H) 0 - 41 U/L [facility] Alkaline Phosphatase 87 40 - 129 U/L [facility] 08/17/2020 6:42 PM QUOTER 08/17/2020 6:49 PM QUOTER Narrative Resulting Agency Comment ER us Althea Petty DO LAB BLOOD [place] [address], [facility] [phone] * (ABNORMAL) CBC with auto differential (08/17/2020 6:42 PM QUOTER) WBC 2.7(L) 3.8 - 9.9 X10 3/ul [facility] RBC 5.33 4.30 - 5.80 x10 6/ul [facility] Hemoglobin 13.9 13.0 - 17.5 g/dL [facility] Hct 43.0 38.9 - 50.3 % [facility] MCV 80.7(L) 81.3 - 96.4 fl [facility] MCH 26.1(L) 27.1 - 33.3 pg [facility] MCHC 32.3 32.3 - 35.7 g/dl [facility] RDW 14.3 11.1 - 14.9 % [facility] Plt Count 206 150 - 400 x10 3/ul [facility] MPV 9.0(L) 9.1 - 12.3 fl [facility] Neut % 67.3 % [facility] Immature Gran % 0.4 % [place] Lymph % 22.5 % [facility] [employer] [facility] [place] % 9.0 % [facility] Eos % 0.4 % [facility] AUTO BASO % 0.4 % [facility] NEUTROPHIL ABS # 1.8 1.7 - 6.5 x10 3/ul [facility] Immature Gran # 0.0 0.0 - 0.1 x10 3/ul [facility] Absolute Lymphs (auto) 0.6(L) 0.8 - 3.3 x10 3/ul [facility] Absolute Monos (auto) 0.2 0.2 - 0.8 x10 3/ul [facility] Absolute Eos (auto) 0.0 0.0 - 0.5 x10 3/ul [facility] BASOPHIL ABS # 0.0 0.0 - 0.1 x10 3/ul [facility] Nucleat RBC Rel Count 0.0 #/100WBC [facility] NRBC abs 0.00 0.00 - 0.01 x10 3/ul [facility] Absolute Neutrophils 1,800 200 - 8,000 /ul [facility] 08/17/2020 6:42 PM QUOTER 08/17/2020 6:49 PM QUOTER Narrative Resulting Agency Comment ER Althea Petty DO LAB BLOOD [place] [address], [facility] [phone] * CT Abdomen Pelvis W Contrast (08/17/2020 12:00 AM QUOTER) Anatomical Region Laterality Modality Body N/A Computed Tomogra phy 08/17/2020 9:41 PM QUOTER Narrative 08/17/2020 9:51 PM QUOTER Patient Name: MATTHEW WRIGHT ?Ordering Dr: Althea Petty DO ?? D.O.B: 1970 ? Exam Date: 08/17/20 ?? 0000 ?? Age: 50 ?Sex: Male ? MR#: [id number] ?? Loc: ? RADIOLOGY REPORT ?? Order #[id number] ?? CT Scan ? CT Abd/Pelvis W IV Contrast ? Signed ? EXAM DESCRIPTION: ?? CT Abd/Pelvis W IV Contrast ? REASON FOR STUDY: ?? Left lower quadrant abdomen pain and nausea, vomiting and ?? diarrhea since last night. ? TECHNIQUE: ??CT scan of the abdomen [...] 100 cc Optiray 350 injected via ??right wrist ? COMPARISON: ?? CT abdomen and pelvis 06/04/2020 ? FINDINGS: ? LOWER CHEST: ??Mild linear atelectasis or scarring in the inferior right lower ?? lobe and mild dependent atelectasis in the posterior lower lobes. ? LIVER: ??Diffuse fatty liver. ??No hepatic mass. ? GALLBLADDER: ??Cholecystectomy. ? BILE DUCTS: ??No intrahepatic or extrahepatic [...] No hydronephrosis or hydroureter. Symmetric enhancement. ? Mild diffuse urinary bladder wall thickening could be secondary to bladder ?? wall hypertrophy or cystitis. ??Recommend correlation to the patient's symptoms. ? GI: ??No bowel dilatation or wall thickening. ??Appendectomy. ??Partial sigmoid ?? resection. ? PERITONEUM: ??No ascites or free air. ? RETROPERITONEUM: ??No mass or adenopathy. ? REPRODUCTIVE: ??No significant abnormality. ? VASCULATURE: ??No abdominal aortic aneurysm. ? MUSCULOSKELETAL: ??Umbilical hernia containing fat measures 2.5 cm. ??Left ?? inguinal hernia repair with mesh graft. ? OTHER: ??No other abnormality. ? IMPRESSION: ?? No acute findings in the abdomen or pelvis. ? No inflammatory changes or free fluid. ? Cholecystectomy, appendectomy and partial sigmoid resection. ? Mild diffuse urinary bladder wall thickening could be secondary to bladder ?? wall hypertrophy or cystitis. ??Recommend correlation to clinical symptoms. ? Small umbilical hernia containing fat. ??Left inguinal hernia repair with mesh ?? graft. ? THIS IS AN ELECTRONICALLY VERIFIED FINAL REPORT ?? 08/17/2020 9:51 PM - Electronically signed by Manny Branch M.D. ?? Manny Branch M.D. ? DL: DL ?? D: ??08/17/2020 9:51 PM ?? T: ??08/17/2020 9:51 PM ? Report ID: [id number] ?? Reading Location: ??[id number] ? REPORT ELECTRONICALLY SIGNED IN OTHER VENDOR SYSTEM ?? Resulting Agency Comment E Procedure Note Manny Branch MD - 08/17/2020 Patient Name: MATTHEW WRIGHT Dr: Althea Petty DO, D.O.B: 1970 Exam Date: 08/17/20 0000 Age: 50 Sex: Male MR#: [id number] [id number] RE[facility] Order #[id number] CT Scan CT Abd/Pelvis W IV Contrast Signed EXAM DESCRIPTION: CT Abd/Pelvis W IV Contrast REASON FOR STUDY: Left lower quadrant abdomen pain and nausea, vomitingand diarrhea since last night. TECHNIQUE: CT scan of the abdomen and pelvis performed with intravenousand without oral contrast using helical scanning technique with dynamic intravenous contrast injection. Reconstructed coronal and sagittal MPRimages reviewed. All images stored on PACS. Automated exposure control was used as a dose optimization technique forthis examination. CONTRAST TYPE/DOSE: 100 cc Optiray 350 injected via right wrist COMPARISON: CT abdomen and pelvis 06/04/2020 FINDINGS: LOWER CHEST: Mild linear atelectasis or scarring in the inferior rightlower lobe and mild dependent atelectasis in the posterior lower lobes. LIVER: Diffuse fatty liver. No hepatic mass. GALLBLADDER: Cholecystectomy. BILE DUCTS: No intrahepatic or extrahepatic ductal dilatation. SPLEEN: Normal size. No focal lesions. PANCREAS: No identified cystic or solid masses. No significant calcifications. No adjacent inflammation or peripancreatic fluidcollections. Pancreatic duct not dilated. ADRENALS: Normal. KIDNEYS/URINARY TRACT: No identified significant cystic or solid masses.No visualized stones. No hydronephrosis or hydroureter. Symmetricenhancement. Mild diffuse urinary bladder wall thickening could be secondary tobladder wall hypertrophy or cystitis. Recommend correlation to the patient'ssymptoms. GI: No bowel dilatation or wall thickening. Appendectomy. Partialsigmoid resection. PERITONEUM: No ascites or free air. RETROPERITONEUM: No mass or adenopathy. REPRODUCTIVE: No significant abnormality. VASCULATURE: No abdominal aortic aneurysm. MUSCULOSKELETAL: Umbilical hernia containing fat measures 2.5 cm. Left inguinal hernia repair with mesh graft. OTHER: No other abnormality. IMPRESSION: No acute findings in the abdomen or pelvis. No inflammatory changes or free fluid. Cholecystectomy, appendectomy and partial sigmoid resection. Mild diffuse urinary bladder wall thickening could be secondary tobladder wall hypertrophy or cystitis. Recommend correlation to clinicalsymptoms. Small umbilical hernia containing fat. Left inguinal hernia repair withmesh graft. THIS IS AN ELECTRONICALLY VERIFIED FINAL REPORT 08/17/2020 9:51 PM - Electronically signed by Manny Branch M.D. DL: JENNIFER Report ID: [id number] Reading Location: [place] [address] REPORT ELECTRONICALLY SIGNED IN OTHER VENDOR SYSTEM Althea Petty [place] [facility] PROCEDURES Final Result documented in this encounter Visit Diagnoses Not on filedocumented in this encounter Care Teams Crank Hand Relationship Specialty Start Date End Date April Gresham NP PCP - General 08/17/20 09/09/20 Monique Garcia MD Referring Physician Gastroenterology 06/11/20 Monique Garcia MD Referring Physician Gastroenterology 06/11/20 documented as of this encounter
--- OUTSIDE RECORDS SUMMARY | 2024-09-03 01:03 | XMS_ITS | Encounter Summary ---
Author Organization [facility] Address [address] [address] Care Team Providers Care Exterminator Helper Name Role Phone Monique Garcia MD Unavailable [phone] Monique Garcia MD Unavailable [phone] Nathan Martinez MD Primary Care Provider [phone] Reason for Visit * Reason Comments New Patient Here to establish ca re as new patient. Previous PCP- Dr. Adrian in [place]. Last seen three months ago. Has appointment with Dr. Garcia today. Has never had a colonoscopy. Has not had dilated eye exam in the past year. Does not get flu shots. Encounter Details Date Type Department Care Team (Late st Contact Info) Description 06/11/2020 10:30 AM CDT Office Visit [facility] Primary Care [address] [place] [id number] Nathan Martinez MD [address] [place], [place] [id number] Left lower quadrant pain (Primary Dx); Type 2 diabetes mellitus with hyperglycemia, without long-term current use of insulin (CMS/HCC); Psychophysiologic insomnia; Major depression in remission (CMS/HCC); BMI 30.0-30.9,adult Social History Tobacco Use Types Packs/Day Years Used Date Smoking Tobacco: Never Smokeless Tobacco: Current Chew Tobacco Cessation:Ready to Q uit: No; Counseling Given: Yes Comments:advised to quit 1 can of chew [...] Sign Reading Time Taken Comments Blood Pressure 120/86 06/11/2020 10:47 AM CDT Pulse 88 06/11/2020 10:47 AM CDT Temperature 36.5 ??C (97.7 ??F) 06/11/2020 10:47 AM C DT Respiratory Rate 16 06/11/2020 10:47 AM CDT Oxygen Saturation 98% 06/11/2020 10:47 AM CDT Inhaled Oxygen Concentration - - Weight 93.9 kg (207 lb) 06/11/2020 10:47 AM CDT Height 176.5 cm (5' 9.5 ) 06/11/2020 10:47 AM CD T Body Mass Index 30.13 06/11/2020 10:47 AM CDT documented in this encounter Ordered Prescriptions Prescription Sig Dispense Quantity Refills Last Filled Start Date End Date metFORMIN (GLUCOPHAGE) 500 mg tablet Take 1 tablet (500 mg total) by mouth 2 (two) times a day with meals 180 tablet 3 06/11/2020 02/11/2021 escitalopram (LEXAPRO) 20 mg tablet Take 1 tablet (20 mg total) by mouth daily 90 tablet 3 06/11/2020 09/02/2021 documented in this encounter Progress Notes * Nathan Martinez MD - 06/11/2020 10:30 AM CDT Subjective/Objective Patient ID: Erich Allen is a 50 y.o. male. Chief Complaint New Patient (Here to establish care as new patient. Previous PCP- Dr. Adrian in [place]. Last seenthree months ago. Has appointment with Dr. Garcia today. Has never had a colonoscopy. Has not had dilated eye exam in the past year. Does not get flu shots.) Vitals BP 120/86 (BP Location: Left arm, Patient Position: Sitting) Pulse 88 Temp 36.5 ??C (97.7 ??F) (Transdermal) Resp 16 Ht 176.5 cm (5' 9.5 ) Wt 93.9 kg (207 lb) SpO2 98% BMI 30.13 kg/m?? PHQ Screening Over the last 2 weeks, how often have you been bothered by any of the following problems? Little Interest or Pleasure in Doing Things: Not at all PHQ-2 Total Score (If total score is 3 or more points, staff should administer the PHQ-9): 0 Over the past 2 weeks, how often have you been bothered by any of the following problems? Little Interest or Pleasure in Doing Things: Not at all History of Present Illness Patient seen in the hospital emergency room 06/04/2020 with complaint of left lower quadrant pain for 3 days. There was associated diarrhea. He has previously had cholecystectomy and appendectomy. Also past history diverticulitis and colitis. . Urine was unremarkable. White count was normal with hemoglobin 14.6. CT of the abdomen pelvis was unremarkable. He was given some IV fluids. He was given a home going prescription for hydrocodone. Fifteen pills 2. History of depression. Patient's depression is well controlled . Taking medicine every day without any side effects . No manic symptoms or irritability. No substance use. Not suicidal or homicidal. 3. Diabetes was on on Glucophage 500 mg b.i.d.. No hypoglycemic symptoms. Random glucose in the ER was 253. 6. Trazodone 150 mg HS previously as needed for insomnia. He quit taking the medication because of concerns about affecting his driving a after sleep. Sleep is adequately controlled at this time. Review of Systems Gen.: No fever, night [...] Diagnoses and all orders for this visit: Left lower quadrant pain (R10.32) (Primary) Assessment & Plan: Still left lower quadrant pain but better. Has appointment with GI in the next few days. Previous history of colon resection because of diverticulitis Type 2 diabetes mellitus with hyperglycemia, without long-term current use of insulin ([facility]) (E11.65) Assessment & Plan: A1c today. Orders: - Comprehensive metabolic panel; Future - Hemoglobin A1c; Future - Lipid panel; Future - Microalbumin, urine, random; Future Psychophysiologic insomnia (F51.04) Assessment & Plan: Continue medication at same dosage. Well controlled. Major depression in remission ([facility]) (F32.5) Assessment & Plan: Continue medication at same dosage. Well controlled. BMI 30.0-30.9,adult (Z68.30) Assessment & Plan: BMI Follow-up includes: nutrition counseling and exercise counseling. documented in this encounter Miscellaneous Notes * Assessment & Plan Note - Nathan Martinez MD - 06/11/2020 11:14 AM CDT Associated Problem(s): Left lower quadrant pain (Resolved 09/10/2020) Still left lower quadrant pain but better. Has appointment with GI in the next few days. Previous history of colon resection because of diverticulitis * Assessment & Plan Note - Nathan Martinez MD - 06/11/2020 11:00 AM CDT Associated Problem(s): BMI 30.0-30.9,adult (Resolved 12/25/2023) BMI Follow-up includes: nutrition counseling and exercise counseling. * Assessment & Plan Note - Nathan Martinez MD - 06/08/2020 10:30 AM CDT Associated Problem(s): Major depression in remission (HCC) Continue medication at same dosage. Well controlled. * Assessment & Plan Note - Nathan Martinez MD - 06/08/2020 10:30 AM CDT Associated Problem(s): Psychophysiologic insomnia Continue medication at same dosage. Well controlled. * Assessment & Plan Note - Nathan Martinez MD - 06/08/2020 10:30 AM CDT Associated Problem(s): Type 2 diabetes mellitus with hyperglycemia, without long-term current use of insulin (HCC) A1c today. documented in this encounter Plan of Treatment Scheduled Orders Name Type Priority Associated Diagnoses Orde r Schedule Comprehensive metabolic panel Lab Routine Type 2 diabetes mellitus with hyperglycemia, without long-term current use of insulin ([facility]/HCC) Expected: 06/11/2020, Expires: 06/11/2021 Hemoglobin A1c Lab Routine Type 2 diabetes mellitus with hyperglycemia, without long-term current use of insulin (CMS/HCC) Expected: 06/11/2020, Expires: 06/11/2021 Lipid panel Lab Routine Type 2 diabetes mellitus with hyperglycemia, without long-term current use of insulin ([facility]) Expected: 06/11/2020, Expires: 06/11/2021 Microalbumin, urine, random Lab Routine Type 2 diabetes mellitus with hyperglycemia, without long-term current use of insulin ([facility]) Expected: 06/11/2020, Expires: 06/11/2021 documented as of this encounter Visit Diagnoses Diagnosis Left lower quadrant pain- Primary Abdominal pain, left lower quadrant Type 2 diabetes mellitus with hyperglycemia, without long-term current use of insulin ([facility]) Psychophysiologic insomnia Major depression in remission ([facility]) Major depressive disorder, single episode in full remission BMI 30.0-30.9,adult documented in this encounter Discontinued Medications Medication Sig Discontinue Reason Start Date End Da te metFORMIN (GLUCOPHAGE) 500 mg tablet Take 500 mg by mouth 2 (two) times a day with meals Therapy completed 06/11/2020 traZODone (DESYREL) 50 mg tablet Take 50 mg by mouth nightly Therapy completed 06/11/2020 escitalopram (LEXAPRO) 20 mg tablet Take 20 mg by mouth daily Reorder 06/11/2020 documented as of this encounter Care Teams Exterminator Helper Relationship Specialty Start Date End Date Nathan Martinez MD PCP - General Family Practice 06/11/20 08/16/20 Monique Garcia MD Referring Physician Gastroenterology 06/11/20 Monique Garcia MD Referring Physician Gastroenterology 06/11/20 documented as of this encounter
--- OUTSIDE RECORDS SUMMARY | 2024-09-03 01:03 | XMS_ITS | Encounter Summary ---
Author Organization [facility] Address [address] [place] [address] Care Team Providers Care Deli Associate Name Role Phone Nathan Martinez MD Primary Care Provider [phone] Encounter Details Date Type Department Care Team (Late st Contact Info) Description 06/04/2020 12:10 PM CDT - 06/04/2020 3:53 PM CDT Hospital Encounter [facility] Emergency Department [address], [place] [phone] Unknown, Mikaela Zaragoza, Humberto Nicholson MD [address] [place] [address] Discharge Disposition: Discharge to home or self [...] Sign Reading Time Taken Comments Blood Pressure 132/78 06/04/2020 12:43 PM CDT Pulse 80 06/04/2020 12:43 PM CDT Temperature 36.8 ??C (98.2 ??F) 06/04/2020 12:43 PM C DT Respiratory Rate - - Oxygen Saturation 97% 06/04/2020 12:43 PM CDT Inhaled Oxygen Concentration - - Weight 94 kg (207 lb 3.8 oz) 06/04/2020 12:43 PM CDT Height 180.3 cm (5' 11 ) 06/04/2020 12:43 PM CDT Body Mass Index 28.9 06/04/2020 12:43 PM CDT documented in this encounter Medications [...] Date/Time Associated Diagnosis Comments SCAN - LABS 06/05/2020 12:[address] ABDOMEN PELVIS W CONTRAST 06/04/2020 2:40 PM CDT CBC WITH AUTO DIFFERENTIAL Routine 06/04/2020 1:33 PM CDT LIPASE Routine 06/04/2020 1:33 PM CDT COMPREHENSIVE METABOLIC PANEL Routine 06/04/2020 1:33 PM CDT URINALYSIS, COMPLETE W/REFLEX TO CULTURE Routine 06/04/2020 1:30 PM CDT documented in this encounter Results * SCAN - LABS (06/05/2020 12:00 AM CDT) Narrative 06/05/2020 12:00 AM CDT Ordered by an unspecified provider. us Historical Provider Final Res ult * CT Abdomen Pelvis W Contrast (06/04/2020 2:40 PM CDT) Anatomical Region Laterality Modality Body N/A Computed Tomogra phy 06/04/2020 3:14 PM CDT Narrative 06/04/2020 3:18 PM CDT Patient Name: MATTHEW WRIGHT N ?Ordering Dr: Jennifer Watters PA-C ?? D.O.B: 1970 ? Exam Date: 06/04/20 ?? 1440 ?? Age: 50 ?Sex: Male ? MR#: [id number] ?? Loc: ? RADIOLOGY REPORT ?? Order #[id number] ?? CT Scan ? CT Abd/Pelvis W IV Contrast ? Signed ? EXAM DESCRIPTION: ?? CT Abd/Pelvis W IV Contrast ? REASON FOR STUDY: ?? Left lower abdominal pain for 3 days. ??History of colitis, ?? diverticulitis ? TECHNIQUE: ??CT scan of the abdomen and pelvis performed with intravenous and ? without oral contrast using helical scanning technique with dynamic ?? intravenous contrast injection. Reconstructed coronal and sagittal MPR images ?? reviewed. All images stored on PACS. ? Automated exposure control was used as a dose optimization technique for this ?? examination. ? CONTRAST TYPE/DOSE: ?? 100 mL of Optiray 350 injected via ??left forearm ?? intravenously ? COMPARISON: ?? CT abdomen pelvis with contrast dated 05/13/2020 ? FINDINGS: ? LOWER CHEST: ??There is bandlike atelectasis within the right lower lobe. ? There is a calcified granuloma within the right lower lobe. ? LIVER: ??There is hepatic steatosis. ? GALLBLADDER: ??Surgically absent. ? BILE DUCTS: [...] No hydronephrosis or hydroureter. Symmetric enhancement. ? The urinary bladder is only minimally distended and therefore appears thick ?? walled, suboptimally assessed. ? GI: ??There is diverticulosis of the colon without evidence for diverticulitis. ?The appendix is surgically absent. ??No small bowel obstruction. ??The stomach ?? and duodenum are unremarkable. ? PERITONEUM: ??No ascites or free air. ? RETROPERITONEUM: ??No mass or adenopathy. ? REPRODUCTIVE: ??No significant abnormality. ? VASCULATURE: ??No abdominal aortic aneurysm. ? MUSCULOSKELETAL: ??No significant abnormality. ? OTHER: ??There is a small umbilical hernia which contains noninflamed ?? mesenteric fat only. ? IMPRESSION: ? 1. ??Diverticulosis of the colon, without evidence for diverticulitis. ? 2. ??Prior cholecystectomy. ??No CT evidence of choledocholithiasis. ? 3. ??Hepatic steatosis. ? THIS IS AN ELECTRONICALLY VERIFIED FINAL REPORT ?? 06/04/2020 3:18 PM - Electronically signed by Lyn Campbell M.D. ?? Lyn Campbell M.D. ? SS: SS ?? D: ??06/04/2020 3:18 PM ?? T: ??06/04/2020 3:18 PM ? Report ID: [id number] ?? Reading Location: ??[id number] ? REPORT ELECTRONICALLY SIGNED IN OTHER VENDOR SYSTEM ?? Resulting Agency Comment E Procedure Note Lyn Campbell MD - 06/04/2020 Patient Name: MATTHEW WRIGHT Dr: Jennifer Watters PA-C, D.O.B: 1970 Exam Date: 06/04/20 1440 Age: 50 Sex: Male MR#: [id number] Loc: RADIOLOGY REPORT Order #[id number] CT Scan CT Abd/Pelvis W IV Contrast Signed EXAM DESCRIPTION: CT Abd/Pelvis W IV Contrast REASON FOR STUDY: Left lower abdominal pain for 3 days. History ofcolitis, diverticulitis TECHNIQUE: CT scan of the abdomen and pelvis performed with intravenousand without oral contrast using helical scanning technique with dynamic intravenous contrast injection. Reconstructed coronal and sagittal MPRimages reviewed. All images stored on PACS. Automated exposure control was used as a dose optimization technique forthis examination. CONTRAST TYPE/DOSE: 100 mL of Optiray 350 injected via left forearm intravenously COMPARISON: CT abdomen pelvis with contrast dated 05/13/2020 FINDINGS: LOWER CHEST: There is bandlike atelectasis within the right lower lobe. There is a calcified granuloma within the right lower lobe. LIVER: There is hepatic steatosis. GALLBLADDER: Surgically absent. BILE DUCTS: No intrahepatic or extrahepatic ductal dilatation. SPLEEN: Normal size. No focal lesions. PANCREAS: No identified cystic or solid masses. No significant calcifications. No adjacent inflammation or peripancreatic fluidcollections. Pancreatic duct not dilated. ADRENALS: Normal. KIDNEYS/URINARY TRACT: No identified significant cystic or solid masses.No visualized stones. No hydronephrosis or hydroureter. Symmetricenhancement. The urinary bladder is only minimally distended and therefore appearsthick walled, suboptimally assessed. GI: There is diverticulosis of the colon without evidence fordiverticulitis. The appendix is surgically absent. No small bowel obstruction. Thestomach and duodenum are unremarkable. PERITONEUM: No ascites or free air. RETROPERITONEUM: No mass or adenopathy. REPRODUCTIVE: No significant abnormality. VASCULATURE: No abdominal aortic aneurysm. MUSCULOSKELETAL: No significant abnormality. OTHER: There is a small umbilical hernia which contains noninflamed mesenteric fat only. IMPRESSION: 1. Diverticulosis of the colon, without evidence for diverticulitis. 2. Prior cholecystectomy. No CT evidence of choledocholithiasis. 3. Hepatic steatosis. THIS IS AN ELECTRONICALLY VERIFIED FINAL REPORT 06/04/2020 3:18 PM - Electronically signed by Lyn Campbell M.D. SS: SS Report ID: [id number] Reading Location: [place] [address] REPORT ELECTRONICALLY SIGNED IN OTHER VENDOR SYSTEM Jennifer MONTENEGRO IMG CT PROCEDURES F inal Result * Lipase (06/04/2020 1:33 PM CDT) [facility] Lipase 42 13 - 60 U/L [facility] 06/04/2020 1:33 PM CDT 06/04/2020 1:37 PM CDT Narrative Resulting Agency Comment ER Jennifer MONTENEGRO LAB BLOOD ORDERABLE S Final Result [address] [phone] * (ABNORMAL) Comprehensive metabolic panel (06/04/2020 1:33 PM CDT) Pathologist [facility] Sodium 134(L) 135 - 145 mmol/L [facility] Potassium 3.8 3.3 - 5.1 mmol/L [facility] Chloride 97 96 - 108 mmol/L [facility] Carbon Dioxide 26 22 - 32 mmol/L [facility] Anion Gap 11 7 - 16 [facility] Glucose 253(H) 70 - 100 mg/dL [facility] BUN 10 8 - 25 mg/dL [facility] Creatinine 1.1 0.5 - 1.3 mg/dL [facility] Comment: NOTE: Estimated GFR (Cockroft-Gault) will NOT be calculated unless patient Height and Weight were entered. Also, Kidney Disease Stage (GFR) and Estimated GFR (Cockroft-Gault) will NOT be calculated if Creatinine result is <0.2. Kidney Disease Stage 75 mL/MIN [facility] Comment: NOTE; ??The GFR is an [...] failure or on dialysis Est GFR (Cockcroft-G) 93 ml/MIN [facility] Comment: Estimated GFR(Cockroft-Gault)is used to calculate patient medication dosage Calcium 9.8 8.6 - 10.3 mg/dL [facility] Total Protein 7.5 6.4 - 8.3 g/dL [facility] Albumin 4.4 3.5 - 5.0 g/dL [facility] Globulin 3.1 2.3 - 3.5 gm/dL [facility] Albumin/Globulin Ratio 1.4 1.1 - 1.8 [facility] Total Bilirubin 0.2 0.0 - 1.2 mg/dL [facility] AST 20 0 - 40 U/L [facility] ALT 35 0 - 41 U/L [facility] Alkaline Phosphatase 70 40 - 129 U/L [facility] 06/04/2020 1:33 PM CDT 06/04/2020 1:37 PM CDT Narrative Resulting Agency Comment ER us Jennifer MONTENEGRO LAB BLOOD ORDERABLE S Final Result [facility] [address] [place] [address], [facility] [phone] * (ABNORMAL) CBC with auto differential (06/04/2020 1:33 PM CDT) WBC 5.7 3.8 - 9.9 X10 3/ul [facility] RBC 5.47 4.30 - 5.80 x10 6/ul [facility] Hemoglobin 14.6 13.0 - 17.5 g/dL [facility] Hct 43.4 38.9 - 50.3 % [facility] MCV 79.3(L) 81.3 - 96.4 fl [facility] MCH 26.7(L) 27.1 - 33.3 pg [facility] MCHC 33.6 32.3 - 35.7 g/dl [facility] RDW 14.0 11.1 - 14.9 % [facility] Plt Count 256 150 - 400 x10 3/ul [facility] MPV 9.1 9.1 - 12.3 fl [facility] Neut % 63.9 % [facility] Immature Gran % 0.4 % [facility] Lymph % 28.2 % [facility] Morrison % 6.1 % [facility] - [facility] Eos % 0.7 % [facility] AUTO BASO % 0.7 % [facility] NEUTROPHIL ABS # 3.7 1.7 - 6.5 x10 3/ul [facility] Immature Gran # 0.0 0.0 - 0.1 x10 3/ul [facility] Absolute Lymphs (auto) 1.6 0.8 - 3.3 x10 3/ul [facility] Absolute Monos (auto) 0.4 0.2 - 0.8 x10 3/ul [facility] Absolute Eos (auto) 0.0 0.0 - 0.5 x10 3/ul [facility] BASOPHIL ABS # 0.0 0.0 - 0.1 x10 3/ul [facility] Nucleat RBC Rel Count 0.0 #/100WBC [facility] NRBC abs 0.00 0.00 - 0.01 x10 3/ul [facility] Absolute Neutrophils 3,700 200 - 8,000 /ul [facility] 06/04/2020 1:33 PM CDT 06/04/2020 1:37 PM CDT Narrative Resulting Agency Comment ER Jennifer MONTENEGRO LAB BLOOD ORDERABLE S Final Result [address] [phone] * (ABNORMAL) URINALYSIS, COMPLETE W/REFLEX TO CULTURE (06/04/2020 1:30 PM CDT) Ur Collection Type CLEAN CATCH [facility] Ur Culture Indicated? C S NOT INDICATED [facility] Urine Color YELLOW YELLOW [facility] Urine Clarity CLEAR [facility] Urine Glucose (UA) >=500(A) NORMAL mg/dL [facility] Urine Bilirubin NEGATIVE NEGATIVE mg/dl [facility] Urine Ketones 5(A) NEGATIVE mg/dL [facility] Ur Specific [place] 1.016 1.005 - 1.025 [facility] Urine Blood NEGATIVE NEGATIVE mg/dl [facility] Urine pH 6.0 5.0 - 8.0 [facility] Urine Protein NEGATIVE NEGATIVE mg/dL [facility] Urine Urobilinogen NORMAL NORMAL mg/dL [facility] Urine Nitrite NEGATIVE NEGATIVE [facility] Ur Leukocyte Esterase NEGATIVE NEGATIVE Rosy/ul [facility] Ur Microscopic Review Indicated or Ordered [facility] Urine RBC 1-5 0 - 2 /HPF [facility] Urine WBC 1-5 0 - 2 /HPF [facility] Ur Squamous Epith Cells 1-5 /LPF [facility] 06/04/2020 1:30 PM CDT 06/04/2020 1:39 PM CDT Narrative [facility] - 06/04/2020 2:01 PM CDT Indication(s) for ordering ?? Dysuria re Clean catch Resulting Agency Comment ER us Jennifer MONTENEGRO LAB URINE ORDERABLE S Final Result [facility] [address] [place] [address] documented in this encounter Visit Diagnoses Not on filedocumented in this encounter Care Teams Deli Associate Relationship Specialty Start Date End Date Nathan Martinez MD PCP - General Family Practice 05/23/20 06/10/20 documented as of this encounter
--- OUTSIDE RECORDS SUMMARY | 2024-09-03 01:10 | XMS_ITS ---
Author Name Interface, [email or web address] lity Address [address] [place] [address] [facility] Address [address] [place] [address] Care Team Providers Care Shell Assembler Name Role Phone Mata Ledezma Unavailable Unavailable Allergies and Adverse Reactions Medication/Group Name Reaction Severity Date gabapentin 06/27/2019 Toradol 06/27/2019 Plan Date Type Value 06/27/2019 APPOINTMENT New Male Reason for Visit New Male Encounters Date Name 06/27/2019 Anxiety 06/27/2019 Depression 06/27/2019 Diabetes mellitus ty pe II 06/27/2019 GERD 06/27/2019 Sleep apnea 06/27/2019 Stomach ulcer 06/27/2019 Testicular pain Immunizations Date Name Route Dose Instructions Refusal Reason Stat us Flu vaccine - Adult Patient declined/rejected Not Administered Diagnostic Results Date Type Test Units Lower Limit Upper Limit Result Flag Comments Status Ordered By Specimen Source Lab Address 06/27 Hgb A1c % 6.0 [facility] Blood Medications Date Name Route Dose Frequency Instructions Start Date End Date Status Metformin Oral orally 1.0 tablet 2 times per day quantity sufficient for 30 days; 3 refills active Hydrocodone-Terry taminophen Oral 7.5 mg-325 mg active Trazodone Oral orally 1.0 tablet daily quantity sufficient for 30 days; 2 refills active Escitalopram Oral orally 1.0 tablet daily quantity sufficient for 30 days; 3 refills active meloxicam 15 MG Oral Tablet orally 1.0 tablet daily active Problems Diagnosis Status Date of Diagnosi s Sleep apnea Active Diabetes mellitus type II Active Depression Active GERD Active Stomach ulcer Active Anxiety Active Testicular pain Active Vital Signs Date Type Value 06/27/2019 Heart Beat 82.00 06/27/2019 Intravascular Systolic 141 06/27/2019 Intravascular Diastolic 89 06/27/2019 Weight 207.00 06/27/2019 Intravascular Systolic 146 06/27/2019 Intravascular Diastolic 86 06/27/2019 BMI 28.87 06/27/2019 BSA 2.17 06/27/2019 Heart Beat 82.00 06/27/2019 Height 71.00
--- OUTSIDE RECORDS SUMMARY | 2024-09-03 01:10 | XMS_ITS | CCD ---
Author Name Interface, [email or web address] yuliana Address [address] [place] [address] [facility] Address [address] [place] [address] Care Team Providers Care Model Set Artist Name Role Phone Mata Ledezma Unavailable Unavailable Reason for Visit New Male Encounters Date Name 06/27/2019 Testicular pain Medications Date Name Route Dose Frequency Instructions Start Date End Date Status Hydrocodone-Terry taminophen Oral 7.5 mg-325 mg active Metformin Oral orally 1.0 tablet 2 times per day quantity sufficient for 30 days; 3 refills active Escitalopram Oral orally 1.0 tablet daily quantity sufficient for 30 days; 3 refills active Trazodone Oral orally 1.0 tablet daily quantity sufficient for 30 days; 2 refills active Problems Diagnosis Status Date of Diagnosi s Sleep apnea Active Diabetes mellitus type II Active GERD Active Stomach ulcer Active Anxiety Active Testicular pain Active Depression Active Social History Date Name Value Sex Male
--- OUTSIDE RECORDS SUMMARY | 2024-09-03 12:16 | XMS_ITS | Patient Health Summary ---
Author Organization [facility] Address [address] [place] [address] Care Team Providers Care Slide Fastener Repairer Name Role Phone Unavailable Primary Care Provider Unavailabl e Note from [facility],non-owned Affiliates and Associated Physician Practices is amultiple site organization consisting of ambulatory clinics and hospital sitesin [place], [place] and [place]. This disclosure is being madepursuant to the Care Everywhere program and may not contain all information available regarding this patient. Last updated 18.[facility] Allergies No known active allergies Medications * [...] OCCULT BLOOD FECES (01/12/2015 2:25 PM CDT) [facility] Occult Blood Negative Negative 01/12/2015 2:46 PM CDT [facility] Stool STOOL SPECIMEN / Unknown 01/12/2015 2:25 PM CDT 01/12/2015 2:41 PM CDT Virginie Weathers DINKEY OPERATOR SLATE-RAILWAYS ASSISTANT LAB - BODY FLUID ORDERABLES Performing Organization Address City/[facility]/ZIP Co de Phone Number [facility] [address] [place] [phone] * (ABNORMAL) GLUCOSE - POINT OF CARE (01/12/2015 12:55 PM CDT) Only the most recent of6 resultswithin the time period is included. [facility] Glucose WB/POC 124(H) 70 - 106 mg/dL 01/12/2015 12:57 PM CDT [facility] Blood BLOOD SPECIMEN / Unknown 01/12/2015 12:55 PM CDT 01/12/2015 12:57 PM CDT Claire Moody MD LAB - POINT OF CARE ORDERABLES Performing Organization Address City/[facility]/ZIP Co de Phone Number [facility] [address] [place] [phone] * (ABNORMAL) CBC W AUTO DIFFERENTIAL (01/12/2015 5:55 AM CDT) Only the most recent of3 resultswithin the time period is included. [facility] WBC 4.0(L) 4.4 - 10.7 x10^9/L 01/12/2015 6:28 AM CDT [facility] WBC Corrected x10^9/L 01/12/2015 6:28 AM CDT [facility] RBC 5.35 3.80 - 5.40 x10^12/L 01/12/2015 6:28 AM CDT [facility] Hemoglobin 13.1 12.0 - 17.6 gm/dL 01/12/2015 6:28 AM [facility] Hematocrit 40.1 35.2 - 51.7 % 01/12/2015 6:28 AM [facility] MCV 75.0(L) 80.7 - 98.3 fl 01/12/2015 6:28 AM [facility] MCH 24.5(L) 26.7 - 34.0 pg 01/12/2015 6:28 AM [facility] MCHC 32.7 30.8 - 35.9 gm/dL 01/12/2015 6:28 AM [facility] Platelet Count 210 153 - 416 x10^9/L 01/12/2015 6:28 AM [facility] RDW-CV 14.4 12.1 - 14.9 % 01/12/2015 6:28 AM [facility] MPV 9.0(L) 9.4 - 12.9 fl 01/12/2015 6:28 AM [facility] Neutrophils % 51.4 44.0 - 73.0 % 01/12/2015 6:28 AM [facility] Lymphocytes % 39.2 20.0 - 43.0 % 01/12/2015 6:28 AM [facility] Monocytes % 6.3 5.0 - 13.0 % 01/12/2015 6:28 AM [facility] Eosinophils % 2.3 0.0 - 6.0 % 01/12/2015 6:28 AM [facility] Basophils % 0.5 0.0 - 2.0 % 01/12/2015 6:28 AM [facility] Immature Granulocytes 0.3 0 - 1 % 01/12/2015 6:28 AM [facility] Neutrophil Absolute 2.05 2.01 - 7.14 x10^9/L 01/12/2015 6:28 AM [facility] Lymphocytes Absolute 1.56 1.07 - 3.94 x10^9/L 01/12/2015 6:28 AM [facility] Monocytes Absolute 0.25(L) 0.26 - 1.07 x10^9/L 01/12/2015 6:28 AM [facility] Eosinophils Absolute 0.09 0 - 0.47 x10^9/L 01/12/2015 6:28 AM [facility] Basophils Absolute 0.02 0 - 0.08 x10^9/L 01/12/2015 6:28 AM [facility] Immature Granulocytes Absolute 0.01 0.00 - 0.06 x10^9/L 01/12/2015 6:28 AM [facility] Blood BLOOD SPECIMEN / Unknown Lab Venipuncture / Unknown 01/12/2015 5:55 AM CDT 01/12/2015 6:13 AM CDT Claire Moody MD LAB - HEMATO LOGY ORDERABLES [facility] [address] [place] [address] * (ABNORMAL) BASIC METABOLIC PANEL (CALCIUM TOTAL) (01/12/2015 5:55 AM CDT) Glucose 158(H) 74 - 106 mg/dL 01/12/2015 6:31 AM [facility] Sodium 134(L) 136 - 145 mmol/L 01/12/2015 6:31 AM [facility] Potassium 3.7 3.5 - 5.1 mmol/L 01/12/2015 6:31 AM [facility] Chloride 99 98 - 107 mmol/L 01/12/2015 6:31 AM [facility] CO2 27 22 - 31 mmol/L 01/12/2015 6:31 AM [facility] Calcium 8.8 8.5 - 10.1 mg/dL 01/12/2015 6:31 AM [facility] Anion Gap 8 5 - 15 mmol/L 01/12/2015 6:31 AM [facility] BUN 8 7 - 21 mg/dL 01/12/2015 6:31 AM [facility] Creatinine 0.83 0.50 - 1.30 mg/dL 01/12/2015 6:31 AM [facility] eGFR by MDRD >60 >60 mL/min/1.7 3m2 01/12/2015 6:31 AM [facility] eGFR by MDRD >60 >60 mL/min/1.7 3m2 01/12/2015 6:31 AM CDT [facility] Blood BLOOD SPECIMEN / Unknown Lab Venipuncture / Unknown 01/12/2015 5:55 AM CDT 01/12/2015 6:13 AM CDT Claire Moody MD LAB - CHEMIS TRY ORDERABLES [facility] [address] [place] [address] * XR ABD OBSTR SERIES (01/11/2015 8:21 [...] IMPRESSION No acute abnormality identified. Virginie Weathers DINKEY OPERATOR SLATE-RAILWAYS ASSISTANT DIAGNOSTIC IMAGI NG ORDERABLES * (ABNORMAL) HEMOGLOBIN A1C (01/11/2015 5:20 AM CDT) Hemoglobin A1c 8.1(H) 4.2 - 6.3 % 01/11/2015 6:11 AM T [facility] Estimated Average Glucose 186 mg/dL 01/11/2015 6:11 AM T [facility] Whole Blood BLOOD SPECIMEN WITH EDTA / Unknown Lab Venipuncture / Unknown 01/11/2015 5:20 AM CDT 01/11/2015 5:50 AM CDT Virginie Weathers APRN-RAILWAYS ASSISTANT LAB - CHEMISTRY ORDERABLES Performing Organization Address [facility] Co de Phone Number [facility] [address] [place] [phone] * PT PTT PANEL (01/11/2015 5:20 AM CDT) [facility] PT 11.2 9.5 - 11.6 sec 01/11/2015 6:08 AM T [facility] INR 1.1 0.9 - 1.1 01/11/2015 6:08 AM T [facility] PTT 25.6 21.0 - 32.0 sec 01/11/2015 6:08 AM T [facility] Blood BLOOD SPECIMEN / Unknown Lab Venipuncture / Unknown 01/11/2015 5:20 AM CDT 01/11/2015 5:50 AM CDT Narrative [facility] - 01/11/2015 6:08 AM CDT Conventional Warfarin Anticoagulant Therapy INR Reference Range: ??2.0-3.0 Intensive Warfarin Anticoagulant Therapy INR Reference Range: ? 2.5-3.5 Heparin Therapeutic Range for PTT: 44.4 - 78.3 seconds. Virginie Weathers APRNHAV[facility] LAB - COAGULATIO N ORDERABLES Performing Organization Address [facility] Co de Phone Number [facility] [address] [place] [phone] * (ABNORMAL) COMPREHENSIVE METABOLIC PANEL (01/11/2015 5:20 AM CDT) [facility] Glucose 126(H) 74 - 106 mg/dL 01/11/2015 6:13 AM T [facility] Sodium 136 136 - 145 mmol/L 01/11/2015 6:13 AM [facility] Potassium 3.8 3.5 - 5.1 mmol/L 01/11/2015 6:13 AM [facility] Chloride 102 98 - 107 mmol/L 01/11/2015 6:13 AM [facility] CO2 26 22 - 31 mmol/L 01/11/2015 6:13 AM [facility] Calcium 8.3(L) 8.5 - 10.1 mg/dL 01/11/2015 6:13 AM [facility] Anion Gap 8 5 - 15 mmol/L 01/11/2015 6:13 AM [facility] BUN 8 7 - 21 mg/dL 01/11/2015 6:13 AM [facility] Creatinine 1.00 0.50 - 1.30 mg/dL 01/11/2015 6:13 AM [facility] eGFR by MDRD >60 >60 mL/min/1.7 3m2 01/11/2015 6:13 AM [facility] eGFR by MDRD >60 >60 mL/min/1.7 3m2 01/11/2015 6:13 AM [facility] Alkaline Phosphatase 74 38 - 126 U/L 01/11/2015 6:13 AM [facility] ALT 54 12 - 78 U/L 01/11/2015 6:13 AM [facility] AST 26 5 - 40 U/L 01/11/2015 6:13 AM [facility] Protein Total 6.7 6.4 - 8.2 gm/dL 01/11/2015 6:13 AM [facility] Albumin 3.4 3.4 - 5.0 gm/dL 01/11/2015 6:13 AM [facility] Bilirubin Total 0.6 0.2 - 1.0 mg/dL 01/11/2015 6:13 AM [facility] Blood BLOOD SPECIMEN / Unknown Lab Venipuncture / Unknown 01/11/2015 5:20 AM CDT 01/11/2015 5:50 AM T Virginie Weathers DINKEY OPERATOR SLATE-RAILWAYS ASSISTANT LAB - CHEMISTRY ORDERABLES [facility] [address] [place] [address] * CT ABDOMEN AND PELVIS WITH IV [...] Yellow, Dark Yellow 01/10/2015 3:25 PM CDT [facility] Clarity UA Clear 01/10/2015 3:25 PM CDT [facility] Specific [place] UA 1.020 1.005 - 1.030 01/10/2015 3:25 PM CDT [facility] pH UA 6.0 5.0 - 8.0 pH 01/10/2015 3:25 PM CDT [facility] Protein UA Negative Negative 01/10/2015 3:25 PM CDT [facility] Blood UA Negative Negative 01/10/2015 3:25 PM CDT [facility] Leukocyte UA Negative Negative 01/10/2015 3:25 PM CDT [facility] Nitrite UA Negative Negative 01/10/2015 3:25 PM CDT [facility] Glucose UA Negative Negative 01/10/2015 3:25 PM CDT [facility] Ketone UA Negative Negative 01/10/2015 3:25 PM CDT [facility] Bilirubin UA Negative Negative 01/10/2015 3:25 PM CDT [facility] Urobilinogen UA 0.2 0.1 - 1.0 EU/dL 01/10/2015 3:25 PM CDT [facility] Reflex Status Culture not indicated 01/10/2015 3:25 PM CDT [facility] Urine URINE SPECIMEN OBTAINED BY CLEAN CATCH PROCEDURE / Unknown 01/10/2015 3:22 PM CDT 01/10/2015 3:22 PM CDT Alberto Mayen MD LAB - URINALYSIS ORD ERABLES [facility] [address] [place], [place] [address] * OCCULT BLOOD FECES - POINT [...] ORDERABLES [facility] [address] [place], [place] [address] * (ABNORMAL) ISTAT CHEM8+ PANEL YAN [...] MD LAB - POINT OF CARE ORDERABLES [facility] [address] [place] [address], [facility] * HEPATIC FUNCTION PANEL (01/10/2015 2:19 PM CDT) Alkaline Phosphatase 94 38 - 126 U/L 01/10/2015 3:22 PM CDT [facility] ALT 66 12 - 78 U/L 01/10/2015 3:22 PM CDT [facility] AST 30 5 - 40 U/L 01/10/2015 3:22 PM CDT [facility] Protein Total 7.8 6.4 - 8.2 gm/dL 01/10/2015 3:22 PM CDT [facility] Albumin 4.2 3.4 - 5.0 gm/dL 01/10/2015 3:22 PM CDT [facility] Bilirubin Total 0.4 0.2 - 1.0 mg/dL 01/10/2015 3:22 PM CDT [facility] Bilirubin Direct <0.1 0 - 0.3 mg/dL 01/10/2015 3:22 PM CDT [facility] Blood BLOOD SPECIMEN / Unknown 01/10/2015 2:19 PM CDT 01/10/2015 2:55 PM CDT Alberto Mayen MD LAB - CHEMISTRY ORDE BIMAL Performing Organization Address [facility]/ZIP Co de Phone Number [facility] [address] [place] [address] * LIPASE BLOOD (01/10/2015 2:19 PM CDT) Pathologist [facility] Lipase 146 73 - 393 U/L 01/10/2015 3:23 PM CDT [facility] Blood BLOOD SPECIMEN / Unknown 01/10/2015 2:19 PM CDT 01/10/2015 2:55 PM CDT Alberto Mayen MD LAB - CHEMISTRY ORDRadha WALLIS Performing Organization Address City/[facility]/ZIP Co de Phone Number [facility] [address] [place] [address] * BMP w CA+ IONIZED iSTAT POC in House [place] (01/10/2015 2:16 PM CDT) Comment Notification Label 01/10/2015 4:00 PM CDT [facility] Blood BLOOD SPECIMEN / Unknown 01/10/2015 2:16 PM CDT 01/10/2015 2:16 PM CDT Alberto Mayen MD LAB BLOOD ORDERABLES [facility] [address] [place], [place] [address]
--- OUTSIDE RECORDS SUMMARY | 2024-09-03 12:16 | XMS_ITS | Clinical Summary ---
Author Organization [facility] Address [address] [place] [address] Care Team Providers Care Urban Redevelopment Specialist Name Role Phone Unavailable Primary Care Provider Unavailabl e Source Comments [facility],non-owned Affiliates and Associated Physician Practices is amultiple site organization consisting of ambulatory clinics and hospital sitesin [place], [place], [place] and [place]. This disclosure is being madepursuant to the Care Everywhere program and may not contain all information available regarding this patient. Last updated 18.[facility] Allergies No known active allergies Medications * [...]
--- OUTSIDE RECORDS SUMMARY | 2024-09-03 12:16 | XMS_ITS | Referral Summary ---
Author Organization [facility] [employer] Address [address] [place] [address] Care Team Providers Care Music Agent Name Role Phone Unavailable Primary Care Provider Unavailabl e Source Comments [facility] [employer],non-owned Affiliates and Associated Physician Practices is amultiple site organization consisting of ambulatory clinics and hospital sitesin [place], [place], [place] and [place]. This disclosure is being madepursuant to the Care Everywhere program and may not contain all information available regarding this patient. Last updated 18.[facility] [employer] Allergies No known active allergies Medications * [...]
--- OUTSIDE RECORDS SUMMARY | 2024-09-03 12:17 | XMS_ITS | Encounter Summary ---
Author Organization [facility] Address [address] [place] [address] Care Team Providers Care Riding Instructor Name Role Phone Monique Garcia MD Unavailable [phone] Monique Garcia MD Unavailable [phone] Nathan Martinez MD Primary Care Provider [phone] Reason for Visit * Reason Onset Date Comments Referral Request 01/14/2024 Encounter Details Date Type Department Care Team (Late st Contact Info) Description 01/14/2024 Telephone [facility] Primary Care [address] [place] [address] Nathan Martinez MD [address] [place] [address] Referral Request Social History Tobacco [...] is seeing a nurse practitioner or physician supply assistant, list the RENTAL SALES REPRESENTATIVE/PA, but also their collaborating doctor): Jean Marie Silva M.D. Specialty: general surgeon Address: [address] [place] [address], Zip: [facility] Diagnosis Code/Symptom/Reason Patient is being seen: K66.0 Date of Appointment: 01/18 NPI#: [id number] Tax ID#: [id number] Is insurance in chart up to date? yes Additional Comments: because of office closure Thursday for holiday they are requesting high prioirtybefore patients Thursday morning appt Does message need to be routed? Yes-Action Needed documented in this encounter Plan of Treatment Not on file documented as of this encounter Visit Diagnoses Not on filedocumented in this encounter Care Teams Riding Instructor Relationship Specialty Start Date End Date Nathan Martinez MD PCP - General Family Practice 09/10/20 Monique Garcia MD Referring Physician Gastroenterology 06/11/20 Monique Garcia MD Referring Physician Gastroenterology 06/11/20 documented as of this encounter
--- OUTSIDE RECORDS SUMMARY | 2024-09-03 12:17 | XMS_ITS | Encounter Summary ---
Author Organization [facility] Healthcare Address [address] [place] [address] Care Team Providers Care Maintenance Worker Name Role Phone Monique Garcia MD Unavailable [phone] Monique Garcia MD Unavailable [phone] Nathan Martinez MD Primary Care Provider [phone] Encounter Details Date Type Department Care Team (Late st Contact Info) Description 01/10/2024 Orders Only [facility] Health Information Management [address] [place] [address] Scanning, Provider Social History Tobacco Use Types [...] filedocumented in this encounter Care Teams Maintenance Worker Relationship Specialty Start Date End Date Nathan Martinez MD PCP - General Family Practice 09/10/20 Monique Garcia MD Referring Physician Gastroenterology 06/11/20 Monique Garcia MD Referring Physician Gastroenterology 06/11/20 documented as of this encounter
--- OUTSIDE RECORDS SUMMARY | 2024-09-03 12:17 | XMS_ITS | Encounter Summary ---
Author Organization [facility] Healthcare Address [address] [address] Care Team Providers Care Apprentice Pattern Maker Name Role Phone Monique Garcia MD Unavailable [phone] Monique Garcia MD Unavailable [phone] Nathan Martinez MD Primary Care Provider [phone] Encounter Details Date Type Department Care Team (Late st Contact Info) Description 05/09/2024 Orders Only [facility] Health Information Management [address] [place] [id number] Scanning, Provider Social History Tobacco Use Types [...] on filedocumented in this encounter Care Teams Apprentice Pattern Maker Relationship Specialty Start Date End Date Nathan Martinez MD PCP - General Family Practice 09/10/20 Monique Garcia MD Referring Physician Gastroenterology 06/11/20 Monique Garcia MD Referring Physician Gastroenterology 06/11/20 documented as of this encounter
--- OUTSIDE RECORDS SUMMARY | 2024-09-03 12:17 | XMS_ITS | CCD ---
Author Name Interface, M5[facility]ibhgc yuliana Address [address] [place] [address] [facility] [employer]AN mcintosh Address [address] [place] [address] Care Team Providers Care Cheese Maker Name Role Phone Mata Ledezma Unavailable Unavailable [...]
--- OUTSIDE RECORDS SUMMARY | 2024-09-03 12:17 | XMS_ITS | Encounter Summary ---
Author Organization [facility] Address [address] [place] [address] Care Team Providers Care Property Analyst Name Role Phone Unavailable Primary Care Provider [...] 01/10/2015 8:50 PM CDT Emergency ER at [address] [address] Alberto Mayen MD [address] [place] [address] [place] [address] Abdominal pain; Partial small bowel obstruction (HCC) [...] as of this encounter ED Notes * Celsa Grey RN - 01/10/2015 8:26 PM CDT [...] PM CDT Report called to nurse at [facility] by nurse Tafoya. [facility] called for transfer. * Magaly Steele RN - 01/10/2015 7:37 PM CDT Report called to Anna RAMON at [facility] * Magaly Steele RN - 01/10/2015 7:22 [...] with the patient: 01/10/2015 13:53 Erich Allen [id number] 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 Past Medical History Diagnosis Date ??? PTSD (post-traumatic stress disorder) ??? Diverticulitis of colon ??? DM (diabetes mellitus) ??? Depressive disorder, not elsewhere classified Past Surgical History Procedure Laterality Date ??? Colectomy 09/2014 V/A [facility] ??? Appendectomy ??? Cholecystectomy ??? Endoscopy, [...] 44.0-73.0 % Lymph 45.3 (*) 20.0-43.0 % [place] 8.0 5.0-13.0 % Neutro Abs 2.5 2.01-7.14 x10^9/L Lymph Abs 2.4 1.07-3.94 x10^9/L [place] Abs 0.4 0.26-1.07 x10^9/L BMP W CA+ [...] Yellow, Dark Yellow Clarity UA Clear Specific [place] UA 1.020 1.005-1.030 pH UA 6.0 5.0-8.0 [...] BMP w CA+ IONIZED iSTAT POC in [facility] ??? HEPATIC FUNCTION PANEL ??? LIPASE BLOOD [...] with request to speak to the surgeon electrical contacts adjuster for [facility]. 17:20: Case discussed with Dr. Shankar (surgeon). Admit to hospitalist and he will consult. Keep NPO. NOTE: I offered Erich the option of being transferred to the [facility] in [place], but he would prefer admission to a [facility] facility in [facility]. 18:10: Case discussed with Virginie Weathers APRN, working with Dr. Perrin (hospitalist) at [facility]. She will accept transfer. Clinical Impression Final [...] Yellow, Dark Yellow 01/10/2015 3:25 PM CDT [facility] Clarity UA Clear 01/10/2015 3:25 PM CDT [facility] Specific [place] UA 1.020 1.005 - 1.030 01/10/2015 3:25 PM CDT [facility] pH UA 6.0 5.0 - 8.0 pH 01/10/2015 3:25 PM CDT [facility] Protein UA Negative Negative 01/10/2015 3:25 PM CDT [facility] Blood UA Negative Negative 01/10/2015 3:25 PM CDT [facility] Leukocyte UA Negative Negative 01/10/2015 3:25 PM CDT [facility] Nitrite UA Negative Negative 01/10/2015 3:25 PM CDT [facility] Glucose UA Negative Negative 01/10/2015 3:25 PM CDT [facility] Ketone UA Negative Negative 01/10/2015 3:25 PM CDT [facility] Bilirubin UA Negative Negative 01/10/2015 3:25 PM CDT [facility] Urobilinogen UA 0.2 0.1 - 1.0 EU/dL 01/10/2015 3:25 PM CDT [facility] Reflex Status Culture not indicated 01/10/2015 3:25 PM CDT [facility] Urine URINE SPECIMEN OBTAINED BY CLEAN CATCH PROCEDURE / Unknown 01/10/2015 3:22 PM CDT 01/10/2015 3:22 PM CDT Alberto Mayen MD LAB - URINALYSIS ORD ERABLES [facility] [address] * OCCULT BLOOD FECES - POINT OF CARE (IP) (01/10/2015 3:03 PM CDT) Occult Blood negative Negative [facility] QC Verified Yes Yes [facility] PO CT TESTING Card Exp Date yes Yes [facility] POCT TESTING Stool specimen (specimen) STOOL SPECIMEN / Unknown 01/10/2015 3:03 PM CDT Alberto Mayen MD LAB - POINT OF CARE ORDERABLES [facility] POCT TESTING [address] * (ABNORMAL) ISTAT CHEM8+ PANEL YAN [...] OF CARE ORDERABLES [facility] [address] * LIPASE BLOOD (01/10/2015 2:19 PM CDT) Lipase 146 73 - 393 U/L 01/10/2015 3:23 PM CDT [facility] Blood BLOOD SPECIMEN / Unknown 01/10/2015 2:19 PM CDT 01/10/2015 2:55 PM CDT Alberto Mayen MD LAB - CHEMISTRY JAMI WALLIS Performing Organization Address City/[facility]/ZIP Co de Phone Number [facility] [address] [place] [id number] * HEPATIC FUNCTION PANEL (01/10/2015 2:19 PM CDT) Alkaline Phosphatase 94 38 - 126 U/L 01/10/2015 3:22 PM CDT [facility] ALT 66 12 - 78 U/L 01/10/2015 3:22 PM CDT [facility] AST 30 5 - 40 U/L 01/10/2015 3:22 PM CDT [facility] Protein Total 7.8 6.4 - 8.2 gm/dL 01/10/2015 3:22 PM CDT [facility] Albumin 4.2 3.4 - 5.0 gm/dL 01/10/2015 3:22 PM CDT [facility] Bilirubin Total 0.4 0.2 - 1.0 mg/dL 01/10/2015 3:22 PM CDT [facility] Bilirubin Direct <0.1 0 - 0.3 mg/dL 01/10/2015 3:22 PM CDT [facility] Blood BLOOD SPECIMEN / Unknown 01/10/2015 2:19 PM CDT 01/10/2015 2:55 PM CDT Alberto Mayen MD LAB - CHEMISTRY JAMI WALLIS [facility] [address] [place] [address] * BMP w CA+ IONIZED iSTAT POC in [facility] (01/10/2015 2:16 PM CDT) Comment Notification Label 01/10/2015 4:00 PM CDT [facility] Blood BLOOD SPECIMEN / Unknown 01/10/2015 2:16 PM CDT 01/10/2015 2:16 PM CDT lAberto Mayen MD LAB BLOOD ORDERABLES [facility] [address] [place], [place] [address] * (ABNORMAL) CBC W AUTO DIFFERENTIAL (01/10/2015 2:16 PM CDT) WBC 5.3 4.4 - 10.7 x10^9/L 01/10/2015 2:22 PM CDT [facility] WBC Corrected x10^9/L 01/10/2015 2:22 PM CDT [facility] RBC 5.80(H) 3.80 - 5.40 x10^12/L 01/10/2015 2:22 PM CDT [facility] Hemoglobin 14.2 12.0 - 17.6 gm/dL 01/10/2015 2:22 PM CDT [facility] Hematocrit 42.3 35.2 - 51.7 % 01/10/2015 2:22 PM CDT [facility] MCV 72.9(L) 80.7 - 98.3 fl 01/10/2015 2:22 PM CDT [facility] MCH 24.5(L) 26.7 - 34.0 pg 01/10/2015 2:22 PM CDT [facility] MCHC 33.6 30.8 - 35.9 gm/dL 01/10/2015 2:22 PM CDT [facility] Platelet Count 255 153 - 416 x10^9/L 01/10/2015 2:22 PM CDT [facility] RDW-CV 14.4 12.1 - 14.9 % 01/10/2015 2:22 PM CDT [facility] MPV 8.7(L) 9.4 - 12.9 fl 01/10/2015 2:22 PM CDT [facility] Neutrophils % 46.7 44.0 - 73.0 % 01/10/2015 2:22 PM CDT [facility] Lymphocytes % 45.3(H) 20.0 - 43.0 % 01/10/2015 2:22 PM CDT [facility] Monocytes % 8.0 5.0 - 13.0 % 01/10/2015 2:22 PM CDT [facility] Neutrophil Absolute 2.5 2.01 - 7.14 x10^9/L 01/10/2015 2:22 PM CDT [facility] Lymphocytes Absolute 2.4 1.07 - 3.94 x10^9/L 01/10/2015 2:22 PM CDT [facility] Monocytes Absolute 0.4 0.26 - 1.07 x10^9/L 01/10/2015 2:22 PM CDT [facility] Blood BLOOD SPECIMEN / Unknown 01/10/2015 2:16 PM CDT 01/10/2015 2:16 PM CDT Alberto Mayen MD LAB - HEMATOLOGY ORD ERABLES [facility] [address] [place] [id number], [facility] documented in this encounter Visit Diagnoses [...]
--- OUTSIDE RECORDS SUMMARY | 2024-09-03 12:17 | XMS_ITS | Encounter Summary ---
Author Organization [facility] Healthcare Address [address] [place] [address] Care Team Providers Care Timekeeping Supervisor Name Role Phone Monique Garcia MD Unavailable [phone] Monique Garcia MD Unavailable [phone] Nathan Martinez MD Primary Care Provider [phone] Encounter Details Date Type Department Care Team (Late st Contact Info) Description 01/17/2024 Orders Only [facility] [place] Health Information Management [address] [place] [address] Scanning, Provider Social History Tobacco Use Types [...] on filedocumented in this encounter Care Teams Timekeeping Supervisor Relationship Specialty Start Date End Date Nathan Martinez MD PCP - General Family Practice 09/10/20 Monique Garcia MD Referring Physician Gastroenterology 06/11/20 Monique Garcia MD Referring Physician Gastroenterology 06/11/20 documented as of this encounter
--- OUTSIDE RECORDS SUMMARY | 2024-09-03 12:17 | XMS_ITS | Encounter Summary ---
Author Organization [facility] Healthcare Address [address] [place] [id number] Care Team Providers Care Telecom Analyst Name Role Phone Monique Garcia MD Unavailable [phone] Monique Garcia MD Unavailable [phone] Nathan Martinez MD Primary Care Provider [phone] Encounter Details Date Type Department Care Team (Late st Contact Info) Description 12/03/2023 Orders Only [facility] Health Information Management [address] [place] [address] Scanning, Provider Social History Tobacco Use Types [...] on filedocumented in this encounter Care Teams Telecom Analyst Relationship Specialty Start Date End Date Nathan Martinez MD PCP - General Family Practice 09/10/20 Monique Garcia MD Referring Physician Gastroenterology 06/11/20 Monique Garcia MD Referring Physician Gastroenterology 06/11/20 documented as of this encounter
--- OUTSIDE RECORDS SUMMARY | 2024-09-03 12:17 | XMS_ITS | Encounter Summary ---
Author Organization [facility] Healthcare Address [address] [place] [address] Care Team Providers Care Garment Liner Name Role Phone Monique Garcia MD Unavailable [phone] Monique Garcia MD Unavailable [phone] Nathan Martinez MD Primary Care Provider [phone] Encounter Details Date Type Department Care Team (Late st Contact Info) Description 05/02/2024 Orders Only [facility] Health Information Management [address] [place] [address] Scanning, Provider Social History Tobacco Use Types [...] on filedocumented in this encounter Care Teams Garment Liner Relationship Specialty Start Date End Date Nathan Martinez MD PCP - General Family Practice 09/10/20 Monique Garcia MD Referring Physician Gastroenterology 06/11/20 Monique Garcia MD Referring Physician Gastroenterology 06/11/20 documented as of this encounter
--- OUTSIDE RECORDS SUMMARY | 2024-09-03 12:17 | XMS_ITS | Encounter Summary ---
Author Organization [facility] Healthcare Address [address] [place] [address] Care Team Providers Care Chief Merchandising Officer Name Role Phone Monique Garcia MD Unavailable [phone] Monique Garcia MD Unavailable [phone] Nathan Martinez MD Primary Care Provider [phone] Encounter Details Date Type Department Care Team (Late st Contact Info) Description 01/25/2024 Orders Only [facility] [place] Health Information Management [address] [place] [address] Scanning, Provider Social History Tobacco Use Types [...] on filedocumented in this encounter Care Teams Chief Merchandising Officer Relationship Specialty Start Date End Date Nathan Martinez MD PCP - General Family Practice 09/10/20 Monique Garcia MD Referring Physician Gastroenterology 06/11/20 Monique Garcia MD Referring Physician Gastroenterology 06/11/20 documented as of this encounter
--- OUTSIDE RECORDS SUMMARY | 2024-09-03 12:17 | XMS_ITS | Referral Summary ---
Author Organization [facility] Address [address] [place] [address] Care Team Providers Care Industrial Education Teacher Name Role Phone Monique Garcia MD Unavailable Monique Garcia MD Unavailable Nathan Martinez MD Primary Care Provider [phone] Encounters Date Type Department Care Team Description 09/01/2024 Telephone [facility] Medical [facility] Primary Care [address] [place] [phone] Nathan Martinez MD Forms Request 08/27/2024 Orders Only [facility] Health Information Management [address] [place] [id number] Scanning, Provider 08/08/2024 11:00 AM FRETTED STRING INSTRUMENT REPAIRER Office Visit [facility] Primary Care [address] [place] [phone] Nathan Martinez MD Type 2 diabetes mellitus [...] complication, without long-term current use of insulin ([facility]) 05/21/2023 Assessment & Plan (05/02/2024 3:03 PM CDT): A1c today. Continue glipizide/Ozempic at same dosage. A1c is higher. Increase Ozempic to 1 mg Assessment & Plan (10/15/2023 11:29 AM FRETTED STRING INSTRUMENT REPAIRER): A1c today . Continue glipizide/Trulicity at same [...] 09/12/2022 Assessment & Plan (09/12/2022 9:35 AM FRETTED STRING INSTRUMENT REPAIRER): Some tinnitus for 2 months. Possible hearing loss. Ear canals normal today drums normal ENT refer Lipidemia 09/11/2022 Assessment & Plan (08/05/2024 2:15 PM FRETTED STRING INSTRUMENT REPAIRER): Continue atorvastatin same dosage. Needs repeat lipid Assessment & Plan (05/01/2024 12:22 PM CDT): Needs repeat lipids. Continue atorvastatin at same dose. Assessment & Plan (01/07/2024 4:08 PM CDT): Continue atorvastatin same dosage but needs repeat lipids. Assessment & Plan (10/15/2023 11:35 AM FRETTED STRING INSTRUMENT REPAIRER): Continue atorvastatin at same dosage. Well controlled. Assessment & Plan (06/23/2023 2:03 PM CDT): Continue Lipitor same dosage but needs repeat lipids. Assessment & Plan (01/15/2023 1:58 PM CDT): Continue atorvastatin same dosage but needs repeat lipids Assessment & Plan (09/11/2022 3:45 PM FRETTED STRING INSTRUMENT REPAIRER): Continue atorvastatin same dosage Acute left ankle [...] counseling. Assessment & Plan (10/15/2023 12:07 PM FRETTED STRING INSTRUMENT REPAIRER): Diabetic foot exam: Left monofilament exam: normal [...] surgeon Assessment & Plan (09/02/2021 8:59 AM FRETTED STRING INSTRUMENT REPAIRER): Pain most recently is in the right [...] 09/02/2021 Assessment & Plan (09/02/2021 9:00 AM FRETTED STRING INSTRUMENT REPAIRER): Refer to Dermatology Chronic abdominal pain 08/30/2021 Assessment & Plan (05/02/2024 3:02 PM CDT): History of multiple adhesions and several times he has had to had bowel obstruction treated. Constant pain. Worse about 30 minutes after eating. Referral to GI. Left lower quadrant Assessment & Plan (09/16/2021 9:44 AM FRETTED STRING INSTRUMENT REPAIRER): Try peppermint oil pill daily. Discontinue Levbid. Refer to GI. Needs colonoscopy. Assessment & Plan (09/02/2021 8:59 AM FRETTED STRING INSTRUMENT REPAIRER): Previous pain is similar to this pain [...] 10/08/2020 Assessment & Plan (08/05/2024 2:14 PM FRETTED STRING INSTRUMENT REPAIRER): Continue Provigil at same dosage. Well controlled. Return 3 months Assessment & Plan (05/01/2024 12:20 PM CDT): Continue Provigil at same dosage. Well controlled. Return 3 months Assessment & Plan (01/07/2024 4:03 PM CDT): Continue Provigil at same dosage. Well controlled. Assessment & Plan (10/16/2023 1:08 PM FRETTED STRING INSTRUMENT REPAIRER): Takes Provigil off-label. Adequate control with medicine. [...] usage. Assessment & Plan (09/13/2021 9:27 AM FRETTED STRING INSTRUMENT REPAIRER): Continue modafinil at same dosage. Well controlled. No signs of toxicity and patient understands this is off-label treatment Assessment & Plan (08/30/2021 7:27 AM FRETTED STRING INSTRUMENT REPAIRER): Allow modafinil as no evidence of toxicity and evidence of benefit Assessment & Plan (06/11/2021 1:30 PM CDT): Continue Provigil at same dosage. Well controlled. Assessment & Plan (02/08/2021 10:32 AM CDT): Continue modafinil at same dosage. Well controlled. Assessment & Plan (11/09/2020 1:42 PM CDT): Allow modafinil but understands off-label Assessment & Plan (10/08/2020 10:45 AM FRETTED STRING INSTRUMENT REPAIRER): Previously diagnosed with this by psychiatrist [place]. good response previously to modafinil but I [...] PFTs Assessment & Plan (10/08/2020 10:46 AM FRETTED STRING INSTRUMENT REPAIRER): Much improved Assessment & Plan (09/10/2020 10:03 AM FRETTED STRING INSTRUMENT REPAIRER): Mainly with exertion and will refer to [...] disease Assessment & Plan (10/08/2020 10:45 AM FRETTED STRING INSTRUMENT REPAIRER): Much improved Assessment & Plan (09/10/2020 9:58 AM FRETTED STRING INSTRUMENT REPAIRER): Persisting cough and will refer to Pulmonary for Rash 09/10/2020 Assessment & Plan (10/08/2020 10:45 AM FRETTED STRING INSTRUMENT REPAIRER): Much improved Assessment & Plan (09/10/2020 10:02 AM FRETTED STRING INSTRUMENT REPAIRER): There is a dry Pash of eczematoid type rash on his back that is different than psoriasis he has other areas. We will give him some topical hydrocortisone cream but not to use longer than 2 weeks as risk of atrophy and tolerance. Nasal polyp 09/10/2020 Assessment & Plan (09/10/2020 10:07 AM FRETTED STRING INSTRUMENT REPAIRER): ENT referral Anemia 09/09/2020 Assessment & Plan (09/09/2020 1:03 PM FRETTED STRING INSTRUMENT REPAIRER): Needs iron studies and methylmalonic acid level. Needs to have colonoscopy done. Type 2 diabetes mellitus wit h hyperglycemia, without long-term current use of insulin 06/08/2020 Assessment & Plan (08/08/2024 11:33 AM FRETTED STRING INSTRUMENT REPAIRER): A1c today. Is improved at 7.0. Continue [...] controlled. Assessment & Plan (09/11/2022 3:47 PM FRETTED STRING INSTRUMENT REPAIRER): A1C TODAY.BMI Follow-up includes: nutrition counseling and [...] weekly Assessment & Plan (09/16/2021 9:43 AM FRETTED STRING INSTRUMENT REPAIRER): A1c today. Diabetes needing better control. No hypoglycemic symptoms. Metformin, Jardiance, and glipizide daily. No significant improvement and will add Trulicity 0.75 mg weekly Assessment & Plan (08/30/2021 7:25 AM FRETTED STRING INSTRUMENT REPAIRER): A1c today. Assessment & Plan (06/17/2021 10:38 [...] today. Assessment & Plan (10/08/2020 10:42 AM FRETTED STRING INSTRUMENT REPAIRER): Check fasting blood sugar today. Result is 415 no he has had better sugars at home. No hypoglycemic symptoms will increase Jardiance to 25 mg daily as he has had no side effects. Assessment & Plan (09/10/2020 9:58 AM FRETTED STRING INSTRUMENT REPAIRER): Needs better control. Medication options discussed. Risk [...] controlled. Assessment & Plan (10/15/2023 11:36 AM FRETTED STRING INSTRUMENT REPAIRER): Continue trazodone at same dosage. Well controlled. Assessment & Plan (06/23/2023 2:04 PM CDT): Continue trazodone same dosage. Well controlled. Assessment & Plan (01/15/2023 1:59 PM CDT): Continue trazodone at same dosage. Well controlled. Assessment & Plan (09/11/2022 3:44 PM FRETTED STRING INSTRUMENT REPAIRER): Continue trazodone Assessment & Plan (05/02/2022 11:04 AM CDT): Continue trazodone at same dosage. Well controlled. Assessment & Plan (12/13/2021 9:57 AM CDT): Continue trazodone at same dosage. Well controlled. Assessment & Plan (08/30/2021 7:26 AM FRETTED STRING INSTRUMENT REPAIRER): Continue trazodone at same dosage. Well controlled. Assessment & Plan (06/11/2021 1:30 PM CDT): Continue trazodone at same dosage. Well controlled. Assessment & Plan (02/08/2021 10:36 AM CDT): Continue trazodone at same dosage. Well controlled. Assessment & Plan (10/08/2020 10:31 AM FRETTED STRING INSTRUMENT REPAIRER): Improved. Continue trazodone 100 mg Assessment & Plan (09/10/2020 10:00 AM FRETTED STRING INSTRUMENT REPAIRER): Increase trazodone to 100 mg needs better control Assessment & Plan (06/08/2020 10:30 AM CDT): Continue medication at same dosage. Well controlled. Major depression in remission 06/08/2020 Assessment & Plan (08/05/2024 2:13 PM FRETTED STRING INSTRUMENT REPAIRER): Continue Lexapro at same dosage. Well controlled. Assessment & Plan (05/01/2024 12:21 PM CDT): Continue Lexapro at same dosage. Well controlled. Assessment & Plan (01/07/2024 4:04 PM CDT): Continue Lexapro at same dosage. Well controlled. Assessment & Plan (10/15/2023 11:35 AM FRETTED STRING INSTRUMENT REPAIRER): Continue Lexapro at same dosage. Well controlled. Assessment & Plan (06/23/2023 2:07 PM CDT): Continue Lexapro at same dosage. Well controlled. Assessment & Plan (01/15/2023 2:00 PM CDT): Continue Lexapro at same dosage. Well controlled. Assessment & Plan (09/11/2022 3:44 PM FRETTED STRING INSTRUMENT REPAIRER): Continue Lexapro at same dosage. Well controlled. Assessment & Plan (05/02/2022 11:00 AM CDT): Continue Lexapro at same dosage. Well controlled. Assessment & Plan (12/13/2021 9:57 AM CDT): Continue Lexapro at same dosage. Well controlled. Assessment & Plan (08/30/2021 7:26 AM FRETTED STRING INSTRUMENT REPAIRER): Continue Lexapro at same dosage. Well controlled. Assessment & Plan (06/11/2021 1:30 PM CDT): Continue Lexapro at same dosage. Well controlled. Assessment & Plan (02/08/2021 10:33 AM CDT): Continue Lexapro at same dosage. Well controlled. Assessment & Plan (11/09/2020 1:42 PM CDT): Continue Lexapro at same dosage. Well controlled. Assessment & Plan (09/09/2020 1:01 PM FRETTED STRING INSTRUMENT REPAIRER): Continue medication at same dosage. Well controlled. [...] Comments Blood Pressure 124/82 08/08/2024 11:17 AM FRETTED STRING INSTRUMENT REPAIRER Pulse 86 08/08/2024 11:17 AM FRETTED STRING INSTRUMENT REPAIRER Temperature 36.7 ??C (98 ??F) 08/08/2024 11: 17 AM FRETTED STRING INSTRUMENT REPAIRER Respiratory Rate 18 08/08/2024 11:1 7 AM FRETTED STRING INSTRUMENT REPAIRER Oxygen Saturation 98% 08/08/2024 11: 17 AM FRETTED STRING INSTRUMENT REPAIRER Inhaled Oxygen Concentration - - Weight 89.3 kg (196 lb 12.8 oz) 024 11:17 AM FRETTED STRING INSTRUMENT REPAIRER Height 180.3 cm (5' 10.98 ) 08/08/2024 11:17 AM FRETTED STRING INSTRUMENT REPAIRER Body Mass Index 27.46 08/08/2024 11:17 AM FRETTED STRING INSTRUMENT REPAIRER Plan of Treatment Not on file Procedures Procedure Name Priority Date/Time Associated Diagnosis Comments SCAN - RADIOLOGY/IMAGING 08/27/2024 POCT HEMOGLOBIN A1C Routine 08/08/2024 1 1:33 AM FRETTED STRING INSTRUMENT REPAIRER Type 2 diabetes mellitus with hyperglycemia, without long-term current use of insulin (HCC) COLONOSCOPY Routine 05/09/2024 7:50 AM CDT ALBUMIN CREATININE RATIO, URINE Routine 05/05/2022 9:04 AM CDT Type 2 diabetes mellitus with hyperglycemia, without long-term current use of insulin ([facility]/HCC) (HCC) EGFR STAT 09/02/2021 9:48 AM FRETTED STRING INSTRUMENT REPAIRER from Last 3 Months or Most Recently Relevant to Health Maintenance Results * SCAN - RADIOLOGY/IMAGING (08/27/2024) Anatomical Region Laterality Modality Other Provider Scanning Final Result * (ABNORMAL) POCT hemoglobin A1c (08/08/2024 11:33 AM FRETTED STRING INSTRUMENT REPAIRER) Hemoglobin A1C, POC 7.0 4.0 - 5.6 % Blood 08/08/2024 11:3 3 AM FRETTED STRING INSTRUMENT REPAIRER Nathan Martinez MD POINT OF CARE TEST [...] MD LAB URINE ORDERABLES Final Result [facility] [address] [place] [id number] * eGFR (09/02/2021 9:48 AM FRETTED STRING INSTRUMENT REPAIRER) eGFR 91 mL/min/1. 73 m2 TERESA RAYMUNDO [...] was last reviewed 2021. Testing performed by: [facility], [address] [place] [address]., [address] Blood 09/02/2021 9:48 AM FRETTED STRING INSTRUMENT REPAIRER 09/02/2021 9:53 AM FRETTED STRING INSTRUMENT REPAIRER us Jennifer MONTENEGRO LAB BLOOD ORDERABLE S Final Result TERESA RAYMUNDO [address] [facility] [place] [address] from Last 3 Months or Most Recently Relevant to Health Maintenance Insurance [address] CLAIMS Member Subscriber Plan / Payer (Ef fective 2020-Present) Name:Erich Allen Relation to Subscriber:Self Name:Alejandro Erich Stephanie Payer ID:[id number] (NAIC) Group ID:Not on file Type: Address: [place] [id number] CLAIMS Member Subscriber Plan / Payer ( fective 2020-Present) Name:Erich Allen Relation to Subscriber:Self Name:Erich Allen Payer ID:[id number] (NAIC) Group ID:[id number] Type: Address: [place] [id number] CLAIMS Member Subscriber Plan / Payer ( fective 2021-Present) Name:Erich Allen Relation to Subscriber:Self Name:Erich Allen Payer ID:[id number] (NAIC) Group ID:[id number] Type: Address: [place] [id number] Care Teams Industrial Education Teacher Relationship Specialty Start Date End Date Nathan Martinez MD PCP - General Family Practice 09/10/20 Monique Garcia MD Referring Physician Gastroenterology 06/11/20 Monique Garcia MD Referring Physician Gastroenterology 06/11/20
--- OUTSIDE RECORDS SUMMARY | 2024-09-03 12:17 | XMS_ITS ---
Author Name Interface, [email or web address] [employer] Address [address] [place] [address] [facility] Address [address] [place] [address] Care Team Providers Care Paper Sales Representative Name Role Phone Mata Ledezma Unavailable Unavailable [...]
--- OUTSIDE RECORDS SUMMARY | 2024-09-03 12:17 | XMS_ITS | Encounter Summary ---
Author Organization [facility] Healthcare Address [facility] [place] [address] Care Team Providers Care Debate Director Name Role Phone Monique Garcia MD Unavailable Monique Garcia MD Unavailable [phone] Nathan Martinez MD Primary Care Provider [phone] Reason for Referral * Diagnostic Imaging (Routine) - Authorized Specialty Diagnoses / Procedures Referred By Hugo dang Referred To Contact Diagnoses Chronic pain of right knee Procedures XR Knee Right 3 Vw Nathan Martinez MD [address] [place] [address] Phone: tel: fax: [facility] [address] [place] [phone] Referral ID Status Reason Start Date Expiration Date V isits Requested Visits Authorized [id number] Authorized 05/02/2024 06/01/2025 1 1 * Consultation (Routine) - Closed Specialty Diagnoses / Procedures Referred By Hugo dang Referred To Contact Orthopedic Surgery Diagnoses Chronic pain of right knee Nathna Martinez MD [address] [place] [address] Phone: tel: fax: [facility] Orthopedics and Sports Medicine [address] [facility] [address] [place] [phone] Phone: tel: fax: Referral ID Status Reason Start Date Expiration Date V isits Requested Visits Authorized [id number] Closed Specialty Services Required 05/02/2024 06/01/2025 1 1 Question Answer Please select the performing region: [facility] [[id number]] Please select the performing department: [facility] [[id number]] # of visits: 1 * Consultation (Routine) - Closed Specialty Diagnoses / Procedures Referred By Contac t Referred To Contact Gastroenterology Diagnoses Chronic abdominal pain Nathan Martinez MD [address] [place] [address] Phone: tel: fax: Monique Garcia MD [address] [facility] [address] [place] [address] Phone: tel: fax: Referral ID Status Reason Start Date Expiration Date V isits Requested Visits Authorized [id number] Closed Specialty Services Required 05/02/2024 06/01/2025 1 1 Question Answer Please select the performing region: External Order [171] # of visits: 1 * Consultation (Routine) - Closed Specialty Diagnoses / Procedures Referred By Contac t Referred To Contact Ophthalmology Diagnoses Type 2 diabetes mellitus with hyperglycemia, without long-term current use of insulin (HCC) Nathan Martinez MD [address] [place] [address] Phone: tel: fax: [facility] [address] [place] [address] Phone: tel: fax: Referral ID Status Reason Start Date Expiration Date V isits Requested Visits Authorized [id number] Closed Specialty Services Required 05/02/2024 06/01/2025 1 1 Question Answer Please select the performing region: External Order [171] To loc/pos [facility] [[id number]] # of visits: 1 Reason for Visit * Reason Comments Hospital Follow Up ER follow up r/t 04/24 visit to [facility] r/t chronic abdominal pain. Reports hospital admission while in [place] three weeks prior and NG tube was [...] Description 05/02/2024 2:45 PM CDT Office Visit [facility] Primary Care [address] [place] [address] Nathan Martinez MD [address] [place] [address] Controlled type 2 diabetes mellitus without complication, without long-term current use of insulin (CMS/HCC) ([facility]) (Primary Dx); Attention deficit disorder (ADD) without hyperactivity; Major depression in remission ([facility]); Psychophysiologic insomnia; Mixed hyperlipidemia; Over weight; Type 2 diabetes mellitus with hyperglycemia, without long-term current use of insulin (CMS/HCC) ([facility]); Chronic abdominal pain; Chronic pain of right [...] abdominal pain. Reports hospital admission while in [place] three weeks prior and NG tube was [...] complication, without long-term current use of insulin ([facility]) ([facility]) (E11.9) (Primary) Assessment & Plan: A1c today. Continue glipizide/Ozempic at same dosage. A1c is higher. Increase Ozempic to 1 mg Orders: - POCT hemoglobin A1c Attention deficit disorder (ADD) without hyperactivity (F98.8) Assessment & Plan: Continue Provigil at same dosage. Well controlled. Return 3 months Major depression in remission ([facility]) (F32.5) Assessment & Plan: Continue Lexapro at [...] hyperglycemia, without long-term current use of insulin ([facility]) ([facility]) (E11.65) - Ambulatory referral to Ophthalmology; Future [...] complication, without long-term current use of insulin ([facility]/HCC) (HCC) A1c today. Continue glipizide/Ozempic at same [...] without long-term current use of insulin (CMS/HCC) ([facility]) Expected: 05/16/2024 (Approximate), Expires: 05/02/2025 Ambulatory referral [...] without long-term current use of insulin (CMS/HCC) ([facility]) documented in this encounter Results * (ABNORMAL) POCT hemoglobin A1c (05/02/2024 3:01 PM CDT) Hemoglobin A1C, POC 7.1 4.0 - 5.6 % Blood 05/02/2024 3:01 PM CDT Nathan Martinez MD POINT OF CARE TEST ORDERAB LES Final Result documented in this encounter Visit Diagnoses Diagnosis Controlled type 2 diabetes mellitus without complication, without long-term current use of insulin (CMS/HCC) ([facility])- Primary Attention deficit disorder (ADD) without hyperactivity Major depression in remission ([facility]) Major depressive disorder, single episode in full remission Psychophysiologic insomnia Mixed hyperlipidemia Over weight Overweight Type 2 diabetes mellitus with hyperglycemia, without long-term current use of insulin ([facility]) Chronic abdominal pain Abdominal pain, unspecified site [...] documented as of this encounter Care Teams Debate Director Relationship Specialty Start Date End Date Nathan Martinez MD PCP - General Family Practice 09/10/20 Monique Garcia MD Referring Physician Gastroenterology 06/11/20 Monique Garcia MD Referring Physician Gastroenterology 06/11/20 documented as of this encounter
--- OUTSIDE RECORDS SUMMARY | 2024-09-03 12:17 | XMS_ITS | Encounter Summary ---
Author Organization [facility] Health Address [address] [place], [place] [address]Mar[place] [address] Care Team Providers Care Geological Technician Name Role Phone Unavailable Primary Care Provider Unavailabl e Reason for Visit * Auth/Cert Specialty Diagnoses / Procedures Referred By Hugo dang Referred To Contact Inpatient Care Diagnoses small bowel obstruction Sjw [address] [place] [address] Referral ID Status Reason Start Date Expiration Date Visits Re quested Visits Authorized [id number] 01/11/2015 07/10/2015 1 Encounter Details Date Type Department Care Team (Late st Contact Info) Description 01/10/2015 9:10 PM CDT - 01/12/2015 4:25 PM CDT Hospital Encounter [address] [address] [place] [address] [facility] [address] [place] [address] Claire Moody MD [address] [place] [address] Medical Outpatient Discharge Disposition: Home or Self [...] Your discharge diagnosis is Small bowel obstruction [[id number]] Diabetic diet -- Limit your calories to 1800 calories per day. Low residue diet Activity as tolerated Rest today, and increase your activity level tomorrow as tolerated. Follow up with provider Order Specific Question Answer Comments Follow Up Instructions: Please follow up with your doctor at [facility]. Discharge time: greater than 30 minutes. CC: [...] for input(s): FERRITIN, IRON in the last 80196 hours. Invalid input(s): SATURATION Current Medications insulin [...] - Symptomatic treatment - requested records from [facility] ? GI Bleed per pt: FOBT negative. [...] Information Primary Emergency Contact: Laura Allen Address: [address] [place] [address] of Y[place] Relation: Mother Anticipated Discharge Date: Anticipated Discharge Date: 01/15/15 Anticipated level of care / disposition at discharge: *Home Prior Level of Functioning: Independent Equipment at Home: none Additional Equipment needed at home (does not have at home now): PCP: No primary provider on file. If no PCP, action taken: [facility] Discharge Medications Needs: None SW Referral: no If patient requires HHC at discharge, he/she requests: NA Transportation at discharge: Family Comments: Met with patient @ bedside to discuss discharge plan/role of CM. Anticipate patient's return home @ discharge when medical clearance received. No additional discharge needs identified or expressed @ present time. salon/spa manager to continue to follow to determine optimal discharge plan for patient's individual discharge needs. Transport home to be arranged with family. Will continue to follow. For any questions or needs please contact: Credit Control Administrator Name/Phone number: Vernell Saini RN # [id number] * Anna Dubose RN - 01/11/2015 4:49 AM CDT Pt was a direct admit from [facility] ER. Alert and oriented x4. C/o abdominal pain which is mostly on the left side. PRN dilaudid given as ordered. Pt has been NPO since midnight. Denies nausea, vomiting or diarrhea. VSS. Will continue to monitor. documented in this encounter H&P Notes * Virginie Weathers, BILINGUAL MIDDLE SCHOOL TEACHER-ACCOUNT CLERK - 01/10/2015 10:26 PM CDT Internal Medicine [...] vomiting, urinary sxs, hematuria. Pt went to [place] ED and CT scan showed a partial SBO so pt was transferred here as a direct admit for further workup and consult with Dr. Shankar. Pt had colectomy 09/12/14 secondary to Diverticulitis at [facility] [place]. Pt denies any problems with surgery or [...] Laterality Date ??? Colectomy 09/2014 V/A [facility] ??? Appendectomy ??? Cholecystectomy ??? Endoscopy, colon, [...] (neg at [facility]. ED) -requested records from [facility] GI Bleed -pt notes small amounts, possible [...] medical factors: Hx Diverticulitis, Colectomy. Virginie Weathers, BONY-ACCOUNT CLERK Nurse Practitioner IPC Hospitalist CC: No primary [...] Laterality Date ??? Colectomy 09/2014 V/A [facility] ??? Appendectomy ??? Cholecystectomy ??? Endoscopy, colon, [...] mg 650 mg Rectal q4h PRN LUIZ KumariACCOUNT CLERK ??? ondansetron (ZOFRAN) injection 4 mg 4 mg Intravenous q6h PRN RADHA Kumari Or ??? metoclopramide (REGLAN) injection 10 mg 10 mg Intravenous q6h PRN Virginie Weathers APRN-ACCOUNT CLERK ??? dextrose (Diabetic Use) 40 % oral gel 1 Tube 1 Tube Oral PRN RADHA Kumari Or ??? dextrose injection 12.5-25 g 25-50 mL Intravenous PRN RADHA Kumari Or ??? glucagon (GLUCAGEN) injection 1 mg 1 mg Intramuscular PRN Virginie Weathers APRN-JOAN ??? insulin aspart (novoLOG) pen [...] sigmoid colon resection 2-3 months ago at [place] for [place]itis. Recovered and was in good health until yesterday morningwhen he began having abdominal pain and bloody diarrhea. Took immodium without improvement. Went toED at [place] and CT showed possible SBO. Also had malaise and nausea. No vomiting. Did not eat yesterday and is not hungry today. Did not want to be transferred back to the [facility] for follow up care.No other complaints. Past Medical History Diagnosis Date ??? PTSD (post-traumatic stress disorder) ??? Diverticulitis of colon ??? DM (diabetes mellitus) ??? Depressive disorder, not elsewhere classified ??? H/O colectomy Past Surgical History Procedure Laterality Date ??? Colectomy 09/2014 V/A [facility] ??? Appendectomy ??? Cholecystectomy ??? Endoscopy, colon, [...] OCCULT BLOOD FECES (01/12/2015 2:25 PM CDT) [facility] Occult Blood Negative Negative 01/12/2015 2:46 PM CDT [facility] Stool STOOL SPECIMEN / Unknown 01/12/2015 2:25 PM CDT 01/12/2015 2:41 PM CDT Virginie Weathers BILING[employer] S[employer] TEACHER-ACCOUNT CLERK LAB - BODY FLUID ORDERABLES Performing Organization Address [facility] Co de Phone Number [facility] [address] [place] [address] * (ABNORMAL) GLUCOSE - POINT OF CARE (01/12/2015 12:55 PM CDT) Glucose WB/POC 124(H) 70 - 106 mg/dL 01/12/2015 12:57 PM CDT [facility] Blood BLOOD SPECIMEN / Unknown 01/12/2015 12:55 PM CDT 01/12/2015 12:57 PM CDT Claire Moody MD LAB - POINT OF CARE ORDERABLES Performing Organization Address [facility] Co de Phone Number [facility] [address] [place] [address] * (ABNORMAL) GLUCOSE - POINT OF CARE (01/12/2015 9:41 AM CDT) Glucose WB/POC 134(H) 70 - 106 mg/dL 01/12/2015 10:17 AM CDT [facility] Blood BLOOD SPECIMEN / Unknown 01/12/2015 9:41 AM CDT 01/12/2015 10:17 AM CDT Claire Moody MD LAB - POINT OF CARE ORDERABLES Performing Organization Address [facility] Co de Phone Number [facility] [address] [place] [address] * (ABNORMAL) BASIC METABOLIC PANEL (CALCIUM TOTAL) (01/12/2015 5:55 AM CDT) Glucose 158(H) 74 - 106 mg/dL 01/12/2015 6:31 AM CDT [facility] Sodium 134(L) 136 - 145 mmol/L 01/12/2015 6:31 AM CDT [facility] Potassium 3.7 3.5 - 5.1 mmol/L 01/12/2015 6:31 AM CDT [facility] Chloride 99 98 - 107 mmol/L 01/12/2015 6:31 AM CDT [facility] CO2 27 22 - 31 mmol/L 01/12/2015 6:31 AM CDT [facility] Calcium 8.8 8.5 - 10.1 mg/dL 01/12/2015 6:31 AM T [facility] Anion Gap 8 5 - 15 mmol/L 01/12/2015 6:31 AM T [facility] BUN 8 7 - 21 mg/dL 01/12/2015 6:31 AM T [facility] Creatinine 0.83 0.50 - 1.30 mg/dL 01/12/2015 6:31 AM T [facility] eGFR by MDRD >60 >60 mL/min/1.7 3m2 01/12/2015 6:31 AM T [facility] eGFR by MDRD >60 >60 mL/min/1.7 3m2 01/12/2015 6:31 AM T [facility] Blood BLOOD SPECIMEN / Unknown Lab Venipuncture / Unknown 01/12/2015 5:55 AM CDT 01/12/2015 6:13 AM CDT Claire Moody MD LAB - CHEMIS TRY ORDERABLES [facility] [address] [place] [address] * (ABNORMAL) CBC W AUTO DIFFERENTIAL (01/12/2015 5:55 AM CDT) WBC 4.0(L) 4.4 - 10.7 x10^9/L 01/12/2015 6:28 AM CDT [facility] WBC Corrected x10^9/L 01/12/2015 6:28 AM CDT [facility] RBC 5.35 3.80 - 5.40 x10^12/L 01/12/2015 6:28 AM CDT [facility] Hemoglobin 13.1 12.0 - 17.6 gm/dL 01/12/2015 6:28 AM T [facility] Hematocrit 40.1 35.2 - 51.7 % 01/12/2015 6:28 AM T [facility] MCV 75.0(L) 80.7 - 98.3 fl 01/12/2015 6:[address] [facility] MCH 24.5(L) 26.7 - 34.0 pg 01/12/2015 6:28 AM T [facility] MCHC 32.7 30.8 - 35.9 gm/dL 01/12/2015 6:[address] [facility] Platelet Count 210 153 - 416 x10^9/L 01/12/2015 6:[address] [facility] RDW-CV 14.4 12.1 - 14.9 % 01/12/2015 6:[address] [facility] MPV 9.0(L) 9.4 - 12.9 fl 01/12/2015 6:[address] [facility] Neutrophils % 51.4 44.0 - 73.0 % 01/12/2015 6:[address] [facility] Lymphocytes % 39.2 20.0 - 43.0 % 01/12/2015 6:[address] [facility] Monocytes % 6.3 5.0 - 13.0 % 01/12/2015 6:[address] [facility] Eosinophils % 2.3 0.0 - 6.0 % 01/12/2015 6:[address] [facility] Basophils % 0.5 0.0 - 2.0 % 01/12/2015 6:[address] [facility] Immature Granulocytes 0.3 0 - 1 % 01/12/2015 6:[address] [facility] Neutrophil Absolute 2.05 2.01 - 7.14 x10^9/L 01/12/2015 6:[address] [facility] Lymphocytes Absolute 1.56 1.07 - 3.94 x10^9/L 01/12/2015 6:[address] [facility] Monocytes Absolute 0.25(L) 0.26 - 1.07 x10^9/L 01/12/2015 6:[address] [facility] Eosinophils Absolute 0.09 0 - 0.47 x10^9/L 01/12/2015 6:28 AM CDT [facility] Basophils Absolute 0.02 0 - 0.08 x10^9/L 01/12/2015 6:28 AM CDT [facility] Immature Granulocytes Absolute 0.01 0.00 - 0.06 x10^9/L 01/12/2015 6:28 AM CDT [facility] Blood BLOOD SPECIMEN / Unknown Lab Venipuncture / Unknown 01/12/2015 5:55 AM CDT 01/12/2015 6:13 AM CDT Claire Moody MD LAB - HEMATO LOGY ORDERABLES Performing Organization Address City/[facility]/ZIP Co de Phone Number [address] [address] * (ABNORMAL) GLUCOSE - POINT OF CARE (01/11/2015 9:39 PM CDT) Glucose WB/POC 112(H) 70 - 106 mg/dL 01/11/2015 9:47 PM CDT [facility] Blood BLOOD SPECIMEN / Unknown 01/11/2015 9:39 PM CDT 01/11/2015 9:47 PM CDT Claire Moody MD LAB - POINT OF CARE ORDERABLES Performing Organization Address [facility] Co de Phone Number [address] [address] * (ABNORMAL) GLUCOSE - POINT OF CARE (01/11/2015 5:02 PM CDT) Glucose WB/POC 143(H) 70 - 106 mg/dL 01/11/2015 5:07 PM CDT [facility] Blood BLOOD SPECIMEN / Unknown 01/11/2015 5:02 PM CDT 01/11/2015 5:07 PM CDT Narrative Authorizing Provider Result Avis Moody MD LAB - POINT OF CARE ORDERABLES [facility] [address] [place] [address] * (ABNORMAL) GLUCOSE - POINT OF CARE (01/11/2015 11:39 AM CDT) Glucose WB/POC 119(H) 70 - 106 mg/dL 01/11/2015 11:43 AM CDT [facility] Blood BLOOD SPECIMEN / Unknown 01/11/2015 11:39 AM CDT 01/11/2015 11:43 AM CDT Alessia Perrin MD LAB - POINT OF CARE ORDERABLES Performing Organization Address City/[facility]/ZIP Co de Phone Number [address] [address] * (ABNORMAL) GLUCOSE - POINT OF CARE (01/11/2015 8:36 AM CDT) Glucose WB/POC 108(H) 70 - 106 mg/dL 01/11/2015 8:39 AM CDT [facility] Blood BLOOD SPECIMEN / Unknown 01/11/2015 8:36 AM CDT 01/11/2015 8:39 AM CDT Alessia Perrin MD LAB - POINT OF CARE ORDERABLES Performing Organization Address City/[facility] Co de Phone Number [address] [address] * XR ABD OBSTR SERIES (01/11/2015 8:21 [...] IMPRESSION No acute abnormality identified. Virginie Weathers [facility] DIAGNOSTIC IMAGI NG ORDERABLES * (ABNORMAL) HEMOGLOBIN A1C (01/11/2015 5:20 AM CDT) Hemoglobin A1c 8.1(H) 4.2 - 6.3 % 01/11/2015 6:11 AM T [facility] Estimated Average Glucose 186 mg/dL 01/11/2015 6:11 AM T [facility] Whole Blood BLOOD SPECIMEN WITH EDTA / Unknown Lab Venipuncture / Unknown 01/11/2015 5:20 AM CDT 01/11/2015 5:50 AM CDT Virginie Weathers [facility] LAB - CHEMISTRY ORDERABLES [facility] [address] [place], [place] [id number] * PT PTT PANEL (01/11/2015 5:20 AM CDT) PT 11.2 9.5 - 11.6 sec 01/11/2015 6:08 AM T [facility] INR 1.1 0.9 - 1.1 01/11/2015 6:08 AM T [facility] PTT 25.6 21.0 - 32.0 sec 01/11/2015 6:08 AM T [facility] Blood BLOOD SPECIMEN / Unknown Lab Venipuncture / Unknown 01/11/2015 5:20 AM CDT 01/11/2015 5:50 AM T Narrative [facility] - 01/11/2015 6:08 AM CDT Conventional Warfarin Anticoagulant Therapy INR Reference Range: ??2.0-3.0 Intensive Warfarin Anticoagulant Therapy INR Reference Range: ? 2.5-3.5 Heparin Therapeutic Range for PTT: 44.4 - 78.3 seconds. Virginie Weathers BILING[employer] SCHO[employer] TEACHER-ACCOUNT CLERK LAB - COAGULATIO N ORDERABLES [facility] [address] [place] [address] * (ABNORMAL) COMPREHENSIVE METABOLIC PANEL (01/11/2015 5:20 AM CDT) [facility] Glucose 126(H) 74 - 106 mg/dL 01/11/2015 6:[address] [facility] Sodium 136 136 - 145 mmol/L 01/11/2015 6:[address] [facility] Potassium 3.8 3.5 - 5.1 mmol/L 01/11/2015 6:[address] [facility] Chloride 102 98 - 107 mmol/L 01/11/2015 6:[address] [facility] CO2 26 22 - 31 mmol/L 01/11/2015 6:[address] [facility] Calcium 8.3(L) 8.5 - 10.1 mg/dL 01/11/2015 6:[address] [facility] Anion Gap 8 5 - 15 mmol/L 01/11/2015 6:[address] [facility] BUN 8 7 - 21 mg/dL 01/11/2015 6:[address] [facility] Creatinine 1.00 0.50 - 1.30 mg/dL 01/11/2015 6:[address] [facility] eGFR by MDRD >60 >60 mL/min/1.7 3m2 01/11/2015 6:[address] [facility] eGFR by MDRD >60 >60 mL/min/1.7 3m2 01/11/2015 6:[address] [facility] Alkaline Phosphatase 74 38 - 126 U/L 01/11/2015 6:[address] [facility] ALT 54 12 - 78 U/L 01/11/2015 6:13 AM CDT [facility] AST 26 5 - 40 U/L 01/11/2015 6:13 AM CDT [facility] Protein Total 6.7 6.4 - 8.2 gm/dL 01/11/2015 6:13 AM CDT [facility] Albumin 3.4 3.4 - 5.0 gm/dL 01/11/2015 6:13 AM CDT [facility] Bilirubin Total 0.6 0.2 - 1.0 mg/dL 01/11/2015 6:13 AM CDT [facility] Blood BLOOD SPECIMEN / Unknown Lab Venipuncture / Unknown 01/11/2015 5:20 AM CDT 01/11/2015 5:50 AM CDT Virginie Weathers BILING[employer] TEACHER-ACCOUNT CLERK LAB - CHEMISTRY ORDERABLES [facility] [address] [place] [address] * (ABNORMAL) CBC W AUTO DIFFERENTIAL (01/11/2015 5:20 AM CDT) WBC 4.2(L) 4.4 - 10.7 x10^9/L 01/11/2015 5:56 AM CDT [facility] WBC Corrected x10^9/L 01/11/2015 5:56 AM CDT [facility] RBC 5.27 3.80 - 5.40 x10^12/L 01/11/2015 5:56 AM CDT [facility] Hemoglobin 12.9 12.0 - 17.6 gm/dL 01/11/2015 5:56 AM CDT [facility] Hematocrit 39.5 35.2 - 51.7 % 01/11/2015 5:56 AM CDT [facility] MCV 75.0(L) 80.7 - 98.3 fl 01/11/2015 5:56 AM CDT [facility] MCH 24.5(L) 26.7 - 34.0 pg 01/11/2015 5:56 AM CDT [facility] MCHC 32.7 30.8 - 35.9 gm/dL 01/11/2015 5:56 AM CDT [facility] Platelet Count 210 153 - 416 x10^9/L 01/11/2015 5:[address] [facility] RDW-CV 14.6 12.1 - 14.9 % 01/11/2015 5:[address] [facility] MPV 9.2(L) 9.4 - 12.9 fl 01/11/2015 5:[address] [facility] Neutrophils % 41.0(L) 44.0 - 73.0 % 01/11/2015 5:[address] [facility] Lymphocytes % 49.5(H) 20.0 - 43.0 % 01/11/2015 5:[address] [facility] Monocytes % 6.4 5.0 - 13.0 % 01/11/2015 5:[address] [facility] Eosinophils % 2.4 0.0 - 6.0 % 01/11/2015 5:[address] [facility] Basophils % 0.5 0.0 - 2.0 % 01/11/2015 5:[address] [facility] Immature Granulocytes 0.2 0 - 1 % 01/11/2015 5:[address] [facility] Neutrophil Absolute 1.73(L) 2.01 - 7.14 x10^9/L 01/11/2015 5:[address] [facility] Lymphocytes Absolute 2.09 1.07 - 3.94 x10^9/L 01/11/2015 5:[address] [facility] Monocytes Absolute 0.27 0.26 - 1.07 x10^9/L 01/11/2015 5:[address] [facility] Eosinophils Absolute 0.10 0 - 0.47 x10^9/L 01/11/2015 5:[address] [facility] Basophils Absolute 0.02 0 - 0.08 x10^9/L 01/11/2015 5:[address] [facility] Immature Granulocytes Absolute 0.01 0.00 - 0.06 x10^9/L 01/11/2015 5:[address] [facility] Blood BLOOD SPECIMEN / Unknown Lab Venipuncture / Unknown 01/11/2015 5:20 AM CDT 01/11/2015 5:50 AM CDT Virginie Weathers [employer]ING[employer] TEACHER-ACCOUNT CLERK LAB - HEMATOLOGY ORDERABLES [facility] [address] [place] [address] documented in this encounter Visit Diagnoses Diagnosis [...] ($ New Bag/Syringe - Provider: Tonya Burns, [employer] TEACHER-ACCOUNT CLERK) PRN Medication Order 01/10/2015 01/11/2015 01/12/2015 acetaminophen [...]
--- OUTSIDE RECORDS SUMMARY | 2024-09-03 12:17 | XMS_ITS | Encounter Summary ---
Author Organization [facility] Healthcare Address [address] [place] [address] Care Team Providers Care Car Spotter Name Role Phone Monique Garcia MD Unavailable [phone] Monique Garcia MD Unavailable [phone] Nathan Martinez MD Primary Care Provider [phone] Reason for Referral * Consultation (Routine) - Closed Specialty Diagnoses / Procedures Referred By Hugo dang Referred To Contact Ophthalmology Diagnoses Type 2 diabetes mellitus with hyperglycemia, without long-term current use of insulin (HCC) Nathan Martinez MD [address] [place] [address] Phone: tel: fax: [facility] [address] [place] [address] Phone: tel: fax: Referral ID Status Reason Start Date Expiration Date V isits Requested Visits Authorized [id number] Closed Specialty Services Required 01/08/2024 02/06/2025 1 1 Question Answer Please select the performing region: External Order [171] To loc/pos [facility] [[id number]] # of visits: 1 * Consultation (Routine) - Closed Specialty Diagnoses / Procedures Referred By Hugo dang Referred To Contact Diagnoses Adhesion of omentum Nathan Martinez MD [address] [place] [address] Phone: tel: fax: Jean Marie Silva MD Phone: tel: fax: Referral ID Status Reason Start Date Expiration Date V isits Requested Visits Authorized [id number] Closed Specialty Services Required 01/08/2024 02/06/2025 1 1 Question Answer Please select the performing region: [facility] (All Locations) [167] # of visits: 1 [...] Description 01/08/2024 9:30 AM CDT Office Visit [facility] [address] [place] [address] Nathan Martinez MD [address] [place] [address] Type 2 diabetes mellitus with hyperglycemia, without long-term current use of insulin ([facility]/HCC) (HCC) (Primary Dx); Psychophysiologic insomnia; Attention deficit disorder (ADD) without hyperactivity; Major depression in remission ([facility]); Mixed hyperlipidemia; Over weight; Adhesion of omentum; [...] was 8.5. A1c on December 05 at [facility] was 7.3. 2. Chronic insomnia taking trazodone [...] use of insulin ([facility]) ([facility]) (E11.65) (Primary) Assessment & Plan: Glipizide at same dosage. A1c is improved at 6.9 today Orders: - POCT hemoglobin A1c - Ambulatory referral to Ophthalmology; Future Psychophysiologic insomnia (F51.04) Assessment & Plan: Continue trazodone at same dosage. Well controlled. Attention deficit disorder (ADD) without hyperactivity (F98.8) Assessment & Plan: Continue Provigil at same dosage. Well controlled. Major depression in remission ([facility]) (F32.5) Assessment & Plan: Continue Lexapro at [...] use of insulin ([facility]) (HCC) Expected: 01/22/2024 (Approximate), Expires: 01/07/2025 documented as of this encounter Procedures Procedure Name Priority Date/Time Associated Diagnosis Comments POCT HEMOGLOBIN A1C Routine 01/08/2024 1 0:14 AM CDT Type 2 diabetes mellitus with hyperglycemia, without long-term current use of insulin ([facility]) ([facility]) documented in this encounter Results * (ABNORMAL) [...] constipation documented in this encounter Care Teams Car Spotter Relationship Specialty Start Date End Date Nathan Martinez MD PCP - General Family Practice 09/10/20 Monique Garcia MD Referring Physician Gastroenterology 06/11/20 Monique Garcia MD Referring Physician Gastroenterology 06/11/20 documented as of this encounter
--- OUTSIDE RECORDS SUMMARY | 2024-09-03 12:17 | XMS_ITS | Encounter Summary ---
Author Organization [facility] Healthcare Address [address] [place] [address] Care Team Providers Care Steamship Agent Name Role Phone Monique Garcia MD Unavailable [phone] Monique Garcia MD Unavailable [phone] Nathan Martinez MD Primary Care Provider [phone] Encounter Details Date Type Department Care Team (Late st Contact Info) Description 01/04/2024 Orders Only [facility] Health Information Management [address] [place] [id number] Scanning, Provider Social History Tobacco Use Types [...] on filedocumented in this encounter Care Teams Steamship Agent Relationship Specialty Start Date End Date Nathan Martinez MD PCP - General Family Practice 09/10/20 Monique Garcia MD Referring Physician Gastroenterology 06/11/20 Monique Garcia MD Referring Physician Gastroenterology 06/11/20 documented as of this encounter
--- OUTSIDE RECORDS SUMMARY | 2024-09-03 12:17 | XMS_ITS | Encounter Summary ---
Author Organization [facility] Healthcare Address [address] [place] [address] Care Team Providers Care Humid System Operator Name Role Phone Monique Garcia MD Unavailable [phone] Monique Garcia MD Unavailable [phone] Nathan Martinez MD Primary Care Provider [phone] Reason for Referral * Consultation (Routine) - Closed Specialty Diagnoses / Procedures Referred By Contac t Referred To Contact Ophthalmology Diagnoses Type 2 diabetes mellitus with hyperglycemia, without long-term current use of insulin (HCC) Nathna Martinez MD [address] [place] [address] Phone: tel: fax: [facility] [address] [place] [address] Phone: tel: fax: Referral ID Status Reason Start Date Expiration Date V isits Requested Visits Authorized [id number] Closed Specialty Services Required 08/08/2024 09/07/2025 1 1 Question Answer Please select the performing region: External Order [[id number]] To loc/pos [facility] [[id number]] # of visits: 1 AINABLE AGRICULTURE FACULTY Reason for Visit * Reason Comments Follow-up Three month follow u p r/t lipidemia, diabetes, anemia, depression. No current labs in chart. No concerns. Referral Request Requesting referral to colorectal surgeon r/t bowel adhesions. Encounter Details Date Type Department Care Team (Latest Contact Info) Description 08/08/2024 11:00 AM SUSTAINABLE AGRICULTURE FACULTY Office Visit [facility] Primary Care [address] [place] [address] Nathan Martinez MD [address] [place] [address] Type 2 diabetes mellitus with hyperglycemia, without [...] Comments Blood Pressure 124/82 08/08/2024 11:17 AM SUSTAINABLE AGRICULTURE FACULTY Pulse 86 08/08/2024 11:17 AM SUSTAINABLE AGRICULTURE FACULTY Temperature 36.7 ??C (98 ??F) 08/08/2024 11: 17 AM SUSTAINABLE AGRICULTURE FACULTY Respiratory Rate 18 08/08/2024 11:1 7 AM SUSTAINABLE AGRICULTURE FACULTY Oxygen Saturation 98% 08/08/2024 11: 17 AM SUSTAINABLE AGRICULTURE FACULTY Inhaled Oxygen Concentration - - Weight 89.3 kg (196 lb 12.8 oz) 024 11:17 AM SUSTAINABLE AGRICULTURE FACULTY Height 180.3 cm (5' 10.98 ) 08/08/2024 11:17 AM SUSTAINABLE AGRICULTURE FACULTY Body Mass Index 27.46 08/08/2024 11:17 AM SUSTAINABLE AGRICULTURE FACULTY documented in this encounter Ordered Prescriptions Prescription [...] metabolic panel; Future - Lipid panel; Future AINABLE AGRICULTURE FACULTY documented in this encounter Miscellaneous Notes * Assessment & Plan Note - Nathan Martinez MD - 08/05/2024 2:15 PM SUSTAINABLE AGRICULTURE FACULTY Associated Problem(s): Lipidemia Continue atorvastatin same dosage. Needs repeat lipid AINABLE AGRICULTURE FACULTY * Assessment & Plan Note - Nathan Martinez MD - 08/05/2024 2:14 PM SUSTAINABLE AGRICULTURE FACULTY Associated Problem(s): ADD (attention deficit disorder) Continue Provigil at same dosage. Well controlled. Return 3 months AINABLE AGRICULTURE FACULTY * Assessment & Plan Note - Nathan Martinez MD - 08/05/2024 2:13 PM SUSTAINABLE AGRICULTURE FACULTY Associated Problem(s): Major depression in remission (HCC) Continue Lexapro at same dosage. Well controlled. AINABLE AGRICULTURE FACULTY * Assessment & Plan Note - Nathan Martinez MD - 08/05/2024 2:12 PM SUSTAINABLE AGRICULTURE FACULTY Associated Problem(s): Type 2 diabetes mellitus with hyperglycemia, without long-term current use of insulin (HCC) A1c today. Is improved at 7.0. Continue Ozempic/glipizide at same dosage. Well controlled. AINABLE AGRICULTURE FACULTY AINABLE AGRICULTURE FACULTY documented in this encounter Plan of Treatment Scheduled Orders Name Type Priority Associated Diagnoses Orde r Schedule Creatinine Lab Routine Type 2 diabetes mellitus with hyperglycemia, without long-term current use of insulin ([facility]/HCC) (HCC) Expected: 08/08/2024, Expires: 08/04/2025 Albumin Creatinine Ratio, Urine Lab Routine Type 2 diabetes mellitus with hyperglycemia, without long-term current use of insulin ([facility]/HCC) (HCC) Expected: 08/08/2024, Expires: 08/04/2025 Comprehensive metabolic panel Lab Routine Type 2 diabetes mellitus with hyperglycemia, without long-term current use of insulin (CMS/HCC) (HCC) Expected: 08/08/2024, Expires: 08/04/2025 Lipid panel Lab Routine Type 2 diabetes mellitus with hyperglycemia, without long-term current use of insulin ([facility]/HCC) (HCC) Expected: 08/08/2024, Expires: 08/04/2025 Lipid panel [...] of insulin ([facility]) (HCC) Expected: 08/18/2024 (Approximate), Expires: 08/04/2025 documented as of this encounter Procedures Procedure Name Priority Date/Time Associated Diagnosis Comments POCT HEMOGLOBIN A1C Routine 08/08/2024 1 1:33 AM SUSTAINABLE AGRICULTURE FACULTY Type 2 diabetes mellitus with hyperglycemia, without long-term current use of insulin ([facility]) documented in this encounter Results * (ABNORMAL) POCT hemoglobin A1c (08/08/2024 11:33 AM SUSTAINABLE AGRICULTURE FACULTY) Hemoglobin A1C, POC 7.0 4.0 - 5.6 % Blood 08/08/2024 11:3 3 AM SUSTAINABLE AGRICULTURE FACULTY Nathan Martinez MD POINT OF CARE TEST [...] documented as of this encounter Care Teams Humid System Operator Relationship Specialty Start Date End Date Nathan Martinez MD PCP - General Family Practice 09/10/20 Monique Garcia MD Referring Physician Gastroenterology 06/11/20 Monique Garcia MD Referring Physician Gastroenterology 06/11/20 documented as of this encounter
--- OUTSIDE RECORDS SUMMARY | 2024-09-03 12:17 | XMS_ITS | Clinical Summary ---
Author Organization [facility] Address [address] [place] [address] Care Team Providers Care Mobility Developer Name Role Phone Monique Garcia MD Unavailable [phone] Monique Garcia MD Unavailable [phone] Nathan Martinez MD Primary Care Provider [phone] Allergies Active Allergy Reactions Criticality Noted Date [...] complication, without long-term current use of insulin ([facility]) 05/21/2023 Assessment & Plan (05/02/2024 3:03 PM CDT): A1c today. Continue glipizide/Ozempic at same dosage. A1c is higher. Increase Ozempic to 1 mg Assessment & Plan (10/15/2023 11:29 AM PHARMACY SALES ASSISTANT): A1c today . Continue glipizide/Trulicity at same [...] 09/12/2022 Assessment & Plan (09/12/2022 9:35 AM PHARMACY SALES ASSISTANT): Some tinnitus for 2 months. Possible hearing loss. Ear canals normal today drums normal ENT refer Lipidemia 09/11/2022 Assessment & Plan (08/05/2024 2:15 PM PHARMACY SALES ASSISTANT): Continue atorvastatin same dosage. Needs repeat lipid Assessment & Plan (05/01/2024 12:22 PM CDT): Needs repeat lipids. Continue atorvastatin at same dose. Assessment & Plan (01/07/2024 4:08 PM CDT): Continue atorvastatin same dosage but needs repeat lipids. Assessment & Plan (10/15/2023 11:35 AM PHARMACY SALES ASSISTANT): Continue atorvastatin at same dosage. Well controlled. Assessment & Plan (06/23/2023 2:03 PM CDT): Continue Lipitor same dosage but needs repeat lipids. Assessment & Plan (01/15/2023 1:58 PM CDT): Continue atorvastatin same dosage but needs repeat lipids Assessment & Plan (09/11/2022 3:45 PM PHARMACY SALES ASSISTANT): Continue atorvastatin same dosage Acute left ankle [...] counseling. Assessment & Plan (10/15/2023 12:07 PM PHARMACY SALES ASSISTANT): Diabetic foot exam: Left monofilament exam: normal [...] surgeon Assessment & Plan (09/02/2021 8:59 AM PHARMACY SALES ASSISTANT): Pain most recently is in the right [...] 09/02/2021 Assessment & Plan (09/02/2021 9:00 AM PHARMACY SALES ASSISTANT): Refer to Dermatology Chronic abdominal pain 08/30/2021 Assessment & Plan (05/02/2024 3:02 PM CDT): History of multiple adhesions and several times he has had to had bowel obstruction treated. Constant pain. Worse about 30 minutes after eating. Referral to GI. Left lower quadrant Assessment & Plan (09/16/2021 9:44 AM PHARMACY SALES ASSISTANT): Try peppermint oil pill daily. Discontinue Levbid. Refer to GI. Needs colonoscopy. Assessment & Plan (09/02/2021 8:59 AM PHARMACY SALES ASSISTANT): Previous pain is similar to this pain [...] 10/08/2020 Assessment & Plan (08/05/2024 2:14 PM PHARMACY SALES ASSISTANT): Continue Provigil at same dosage. Well controlled. Return 3 months Assessment & Plan (05/01/2024 12:20 PM CDT): Continue Provigil at same dosage. Well controlled. Return 3 months Assessment & Plan (01/07/2024 4:03 PM CDT): Continue Provigil at same dosage. Well controlled. Assessment & Plan (10/16/2023 1:08 PM PHARMACY SALES ASSISTANT): Takes Provigil off-label. Adequate control with medicine. [...] usage. Assessment & Plan (09/13/2021 9:27 AM PHARMACY SALES ASSISTANT): Continue modafinil at same dosage. Well controlled. No signs of toxicity and patient understands this is off-label treatment Assessment & Plan (08/30/2021 7:27 AM PHARMACY SALES ASSISTANT): Allow modafinil as no evidence of toxicity and evidence of benefit Assessment & Plan (06/11/2021 1:30 PM CDT): Continue Provigil at same dosage. Well controlled. Assessment & Plan (02/08/2021 10:32 AM CDT): Continue modafinil at same dosage. Well controlled. Assessment & Plan (11/09/2020 1:42 PM CDT): Allow modafinil but understands off-label Assessment & Plan (10/08/2020 10:45 AM PHARMACY SALES ASSISTANT): Previously diagnosed with this by psychiatrist at [facility]. good response previously to modafinil but I [...] PFTs Assessment & Plan (10/08/2020 10:46 AM PHARMACY SALES ASSISTANT): Much improved Assessment & Plan (09/10/2020 10:03 AM PHARMACY SALES ASSISTANT): Mainly with exertion and will refer to [...] disease Assessment & Plan (10/08/2020 10:45 AM PHARMACY SALES ASSISTANT): Much improved Assessment & Plan (09/10/2020 9:58 AM PHARMACY SALES ASSISTANT): Persisting cough and will refer to Pulmonary for Rash 09/10/2020 Assessment & Plan (10/08/2020 10:45 AM PHARMACY SALES ASSISTANT): Much improved Assessment & Plan (09/10/2020 10:02 AM PHARMACY SALES ASSISTANT): There is a dry Pash of eczematoid type rash on his back that is different than psoriasis he has other areas. We will give him some topical hydrocortisone cream but not to use longer than 2 weeks as risk of atrophy and tolerance. Nasal polyp 09/10/2020 Assessment & Plan (09/10/2020 10:07 AM PHARMACY SALES ASSISTANT): ENT referral Anemia 09/09/2020 Assessment & Plan (09/09/2020 1:03 PM PHARMACY SALES ASSISTANT): Needs iron studies and methylmalonic acid level. Needs to have colonoscopy done. Type 2 diabetes mellitus wit h hyperglycemia, without long-term current use of insulin 06/08/2020 Assessment & Plan (08/08/2024 11:33 AM PHARMACY SALES ASSISTANT): A1c today. Is improved at 7.0. Continue [...] controlled. Assessment & Plan (09/11/2022 3:47 PM PHARMACY SALES ASSISTANT): A1C TODAY.BMI Follow-up includes: nutrition counseling and [...] weekly Assessment & Plan (09/16/2021 9:43 AM PHARMACY SALES ASSISTANT): A1c today. Diabetes needing better control. No hypoglycemic symptoms. Metformin, Jardiance, and glipizide daily. No significant improvement and will add Trulicity 0.75 mg weekly Assessment & Plan (08/30/2021 7:25 AM PHARMACY SALES ASSISTANT): A1c today. Assessment & Plan (06/17/2021 10:38 [...] today. Assessment & Plan (10/08/2020 10:42 AM PHARMACY SALES ASSISTANT): Check fasting blood sugar today. Result is 415 no he has had better sugars at home. No hypoglycemic symptoms will increase Jardiance to 25 mg daily as he has had no side effects. Assessment & Plan (09/10/2020 9:58 AM PHARMACY SALES ASSISTANT): Needs better control. Medication options discussed. Risk [...] controlled. Assessment & Plan (10/15/2023 11:36 AM PHARMACY SALES ASSISTANT): Continue trazodone at same dosage. Well controlled. Assessment & Plan (06/23/2023 2:04 PM CDT): Continue trazodone same dosage. Well controlled. Assessment & Plan (01/15/2023 1:59 PM CDT): Continue trazodone at same dosage. Well controlled. Assessment & Plan (09/11/2022 3:44 PM PHARMACY SALES ASSISTANT): Continue trazodone Assessment & Plan (05/02/2022 11:04 AM CDT): Continue trazodone at same dosage. Well controlled. Assessment & Plan (12/13/2021 9:57 AM CDT): Continue trazodone at same dosage. Well controlled. Assessment & Plan (08/30/2021 7:26 AM PHARMACY SALES ASSISTANT): Continue trazodone at same dosage. Well controlled. Assessment & Plan (06/11/2021 1:30 PM CDT): Continue trazodone at same dosage. Well controlled. Assessment & Plan (02/08/2021 10:36 AM CDT): Continue trazodone at same dosage. Well controlled. Assessment & Plan (10/08/2020 10:31 AM PHARMACY SALES ASSISTANT): Improved. Continue trazodone 100 mg Assessment & Plan (09/10/2020 10:00 AM PHARMACY SALES ASSISTANT): Increase trazodone to 100 mg needs better control Assessment & Plan (06/08/2020 10:30 AM CDT): Continue medication at same dosage. Well controlled. Major depression in remission 06/08/2020 Assessment & Plan (08/05/2024 2:13 PM PHARMACY SALES ASSISTANT): Continue Lexapro at same dosage. Well controlled. Assessment & Plan (05/01/2024 12:21 PM CDT): Continue Lexapro at same dosage. Well controlled. Assessment & Plan (01/07/2024 4:04 PM CDT): Continue Lexapro at same dosage. Well controlled. Assessment & Plan (10/15/2023 11:35 AM PHARMACY SALES ASSISTANT): Continue Lexapro at same dosage. Well controlled. Assessment & Plan (06/23/2023 2:07 PM CDT): Continue Lexapro at same dosage. Well controlled. Assessment & Plan (01/15/2023 2:00 PM CDT): Continue Lexapro at same dosage. Well controlled. Assessment & Plan (09/11/2022 3:44 PM PHARMACY SALES ASSISTANT): Continue Lexapro at same dosage. Well controlled. Assessment & Plan (05/02/2022 11:00 AM CDT): Continue Lexapro at same dosage. Well controlled. Assessment & Plan (12/13/2021 9:57 AM CDT): Continue Lexapro at same dosage. Well controlled. Assessment & Plan (08/30/2021 7:26 AM PHARMACY SALES ASSISTANT): Continue Lexapro at same dosage. Well controlled. Assessment & Plan (06/11/2021 1:30 PM CDT): Continue Lexapro at same dosage. Well controlled. Assessment & Plan (02/08/2021 10:33 AM CDT): Continue Lexapro at same dosage. Well controlled. Assessment & Plan (11/09/2020 1:42 PM CDT): Continue Lexapro at same dosage. Well controlled. Assessment & Plan (09/09/2020 1:01 PM PHARMACY SALES ASSISTANT): Continue medication at same dosage. Well controlled. [...] Type Department Care Team Description 09/01/2024 Telephone [facility] Primary Care [address] [place] [address] Nathan Martinez MD Forms Request 08/27/2024 Orders Only [facility] Health Information Management [address] [place] [address] Scanning, Provider 08/08/2024 11:00 AM PHARMACY SALES ASSISTANT Office Visit [facility] Primary [address] [address] Nathan Martinez MD Type 2 [...] Comments Blood Pressure 124/82 08/08/2024 11:17 AM PHARMACY SALES ASSISTANT Pulse 86 08/08/2024 11:17 AM PHARMACY SALES ASSISTANT Temperature 36.7 ??C (98 ??F) 08/08/2024 11: 17 AM PHARMACY SALES ASSISTANT Respiratory Rate 18 08/08/2024 11:1 7 AM PHARMACY SALES ASSISTANT Oxygen Saturation 98% 08/08/2024 11: 17 AM PHARMACY SALES ASSISTANT Inhaled Oxygen Concentration - - Weight 89.3 kg (196 lb 12.8 oz) 024 11:17 AM PHARMACY SALES ASSISTANT Height 180.3 cm (5' 10.98 ) 08/08/2024 11:17 AM PHARMACY SALES ASSISTANT Body Mass Index 27.46 08/08/2024 11:17 AM PHARMACY SALES ASSISTANT Plan of Treatment Health Maintenance Due Date [...] HEMOGLOBIN A1C Routine 08/08/2024 1 1:33 AM PHARMACY SALES ASSISTANT Type 2 diabetes mellitus with hyperglycemia, without long-term current use of insulin (HCC) COLONOSCOPY Routine 05/09/2024 7:50 AM CDT ALBUMIN CREATININE RATIO, URINE Routine 05/05/2022 9:04 AM CDT Type 2 diabetes mellitus with hyperglycemia, without long-term current use of insulin (CMS/HCC) (HCC) EGFR STAT 09/02/2021 9:48 AM PHARMACY SALES ASSISTANT from Last 3 Months or Most Recently Relevant to Health Maintenance Results * SCAN - RADIOLOGY/IMAGING (08/27/2024) Anatomical Region Laterality Modality Other Provider Scanning Final Result * (ABNORMAL) POCT hemoglobin A1c (08/08/2024 11:33 AM PHARMACY SALES ASSISTANT) Hemoglobin A1C, POC 7.0 4.0 - 5.6 % Blood 08/08/2024 11:3 3 AM PHARMACY SALES ASSISTANT Nathan Martinez MD POINT OF CARE TEST [...] LAB URINE ORDERABLES Final Result [facility] [address] [id number] * eGFR (09/02/2021 9:48 AM PHARMACY SALES ASSISTANT) [facility] Signature eGFR 91 mL/min/1. 73 m2 TERESA [...] was last reviewed 2021. Testing performed by: [facility], [address] [place] [address]., [id number] Blood 09/02/2021 9:48 AM PHARMACY SALES ASSISTANT 09/02/2021 9:53 AM PHARMACY SALES ASSISTANT us Jennifer MONTENEGRO LAB BLOOD ORDERABLE S Final Result TERESA RAYMUNDO [address] [facility] Department [place] [address] from Last 3 Months or Most Recently Relevant to Health Maintenance Insurance [facility] CLAIMS [id number] CLAIMS [id number] CLAIMS Member Subscriber Plan / Payer ( fective 2021-Present) Name:Erich Allen Relation to Subscriber:Self Name:AlejandroErich dang Stephanie Payer ID:[id number] (NAIC) Group ID:[id number] Type: Address: [place] [phone] Care Teams Mobility Developer Relationship Specialty Start Date End Date Nathan Martinez MD PCP - General Family Practice 09/10/20 Monique Garcia MD Referring Physician Gastroenterology 06/11/20 Monique Garcia MD Referring Physician Gastroenterology 06/11/20
--- OUTSIDE RECORDS SUMMARY | 2024-09-03 12:17 | XMS_ITS | Encounter Summary ---
Author Organization [facility] Healthcare Address [address] [place] [address] Care Team Providers Care Health Professional Name Role Phone Monique Garcia MD Unavailable [phone] Monique Garcia MD Unavailable [phone] Nathan Martinez MD Primary Care Provider [phone] Encounter Details Date Type Department Care Team (Late st Contact Info) Description 04/24/2024 Orders Only [facility] Health Information Management [address] [place] [address] Scanning, Provider Social History Tobacco Use Types [...] on filedocumented in this encounter Care Teams Health Professional Relationship Specialty Start Date End Date Nathan Martinez MD PCP - General Family Practice 09/10/20 Monique Garcia MD Referring Physician Gastroenterology 06/11/20 Monique Garcia MD Referring Physician Gastroenterology 06/11/20 documented as of this encounter
--- OUTSIDE RECORDS SUMMARY | 2024-09-03 12:18 | XMS_ITS | Encounter Summary ---
Author Organization [facility] Healthcare Address [address] [place] [address] Care Team Providers Care Condenser Cleaner Name Role Phone Monique Garcia MD Unavailable [phone] Monique Garcia MD Unavailable [phone] Nathan Martinez MD Primary Care Provider [phone] Encounter Details Date Type Department Care Team (Late st Contact Info) Description 06/14/2023 Orders Only [facility] Health Information Management [address] [place] [address] Scanning, Provider Social History Tobacco Use Types [...] on filedocumented in this encounter Care Teams Condenser Cleaner Relationship Specialty Start Date End Date Nathan Martinez MD PCP - General Family Practice 09/10/20 Monique Garcia MD Referring Physician Gastroenterology 06/11/20 Monique Garcia MD Referring Physician Gastroenterology 06/11/20 documented as of this encounter
--- OUTSIDE RECORDS SUMMARY | 2024-09-03 12:18 | XMS_ITS | Encounter Summary ---
Author Organization [facility] Healthcare Address [address] [place] [address] Care Team Providers Care Broodmare Barn Groom Name Role Phone Monique Garcia MD Unavailable [phone] Monique Garcia MD Unavailable [phone] Nathan Martinez MD Primary Care Provider [phone] Encounter Details Date Type Department Care Team (Late st Contact Info) Description 07/25/2023 Orders Only [facility] Health Information Management [address] [place] [address] Scanning, Provider Social History Tobacco Use Types [...] on filedocumented in this encounter Care Teams Broodmare Barn Groom Relationship Specialty Start Date End Date Nathan Martinez MD PCP - General Family Practice 09/10/20 Monique Garcia MD Referring Physician Gastroenterology 06/11/20 Monique Garcia MD Referring Physician Gastroenterology 06/11/20 documented as of this encounter
--- OUTSIDE RECORDS SUMMARY | 2024-09-03 12:18 | XMS_ITS | Encounter Summary ---
Author Organization [facility] Address [address] [facility] [address] [place] [address] Care Team Providers Care Honing Machine Operator Tool Name Role Phone Monique Garcia MD Unavailable [phone] Monique Garcia MD Unavailable [phone] Nathan Martinez MD Primary Care Provider [phone] Encounter Details Date Type Department Care Team (Late st Contact Info) Description 07/19/2022 Orders Only [facility] Health Information Management [address] [place] [address] Scanning, Provider Social History Tobacco Use Types [...] on filedocumented in this encounter Care Teams Honing Machine Operator Tool Relationship Specialty Start Date End Date Nathan Martinez MD PCP - General Family Practice 09/10/20 Monique Garcia MD Referring Physician Gastroenterology 06/11/20 Monique Garcia MD Referring Physician Gastroenterology 06/11/20 documented as of this encounter
--- OUTSIDE RECORDS SUMMARY | 2024-09-03 12:18 | XMS_ITS | Encounter Summary ---
Author Organization [facility] Healthcare Address [address] [place] [address] Care Team Providers Care Edge Kitter Name Role Phone Monique Garcia MD Unavailable [phone] Monique Garcia MD Unavailable [phone] Nathan Martinez MD Primary Care Provider [phone] Reason for Referral * Consultation (Routine) - Closed Specialty Diagnoses / Procedures Referred By Hugo dang Referred To Contact Ophthalmology Diagnoses Controlled type 2 diabetes mellitus without complication, without long-term current use of insulin (CMS/[facility]) (HCC) Nathan Martinez MD [address] [place] [address] Phone: tel: fax: Calin Brandon MD [address] [place] [address] Phone: tel: fax: Referral ID Status Reason Start Date Expiration Date V isits Requested Visits Authorized [id number] Closed Specialty Services Required 10/16/2023 11/14/2024 1 1 Question Answer Please select the performing region: External Order [171] To loc/pos [facility] [[id number]] # of visits: 1 PTION INTERVIEWER Reason for Visit * Reason Comments Follow-up [...] (Latest Contact Info) Description 10/16/2023 12:45 PM RECEPTION INTERVIEWER Office Visit [facility] Primary Care [address] [place] [address] Nathan Martinez MD [address] [place], [place] [id number] Controlled type 2 diabetes mellitus without complication, [...] Comments Blood Pressure 110/68 10/16/2023 12:48 PM RECEPTION INTERVIEWER Pulse 86 10/16/2023 12:48 PM RECEPTION INTERVIEWER Temperature 36.7 ??C (98.1 ??F) 10/16/2023 12:[address] Respiratory Rate 20 10/16/2023 12:48 PM RECEPTION INTERVIEWER Oxygen Saturation 98% 10/16/2023 12:48 PM RECEPTION INTERVIEWER Inhaled Oxygen Concentration - - Weight 89.9 kg (198 lb 3.2 oz) 10/16/2023 12:48 PM RECEPTION INTERVIEWER Height 180.3 cm (5' 10.98 ) 10/16/2023 12:48 PM RECEPTION INTERVIEWER Body Mass Index 27.66 10/16/2023 12:48 PM RECEPTION INTERVIEWER documented in this encounter Ordered Prescriptions Prescription [...] complication, without long-term current use of insulin ([facility]) (HCC) (E11.9) (Primary) Assessment & Plan: A1c today . Continue glipizide/Trulicity at same dosage. Well controlled. Mixed hyperlipidemia (E78.2) Assessment & Plan: Continue atorvastatin at same dosage. Well controlled. Nasal polyp (J33.9) Major depression in remission (HCC) (F32.5) Assessment & Plan: Continue Lexapro at same dosage. Well controlled. Psychophysiologic insomnia (F51.04) Assessment & Plan: Continue trazodone at same dosage. Well controlled. PTION INTERVIEWER documented in this encounter Miscellaneous Notes * Assessment & Plan Note - Nathan Martinez MD - 10/16/2023 1:08 PM RECEPTION INTERVIEWER Associated Problem(s): ADD (attention deficit disorder) Takes Provigil off-label. Adequate control with medicine. No side effects. PTION INTERVIEWER * Assessment & Plan Note - Nathan Martinez MD - 10/15/2023 12:07 PM RECEPTION INTERVIEWER Associated Problem(s): Over weight Diabetic foot exam: Left monofilament exam: normal Right monofilament exam: normal PTION INTERVIEWER * Assessment & Plan Note - Nathan Martinez MD - 10/15/2023 11:36 AM RECEPTION INTERVIEWER Associated Problem(s): Psychophysiologic insomnia Continue trazodone at same dosage. Well controlled. PTION INTERVIEWER * Assessment & Plan Note - Nathan Martinez MD - 10/15/2023 11:35 AM RECEPTION INTERVIEWER Associated Problem(s): Major depression in remission (HCC) Continue Lexapro at same dosage. Well controlled. PTION INTERVIEWER * Assessment & Plan Note - Nathan Martinez MD - 10/15/2023 11:35 AM RECEPTION INTERVIEWER Associated Problem(s): Lipidemia Continue atorvastatin at same dosage. Well controlled. PTION INTERVIEWER * Assessment & Plan Note - Nathan Martinez MD - 10/15/2023 11:29 AM RECEPTION INTERVIEWER Associated Problem(s): Controlled type 2 diabetes mellitus without complication, without long-term current use of insulin ([facility]) ([facility]) A1c today . Continue glipizide/Trulicity at same dosage. Well controlled. PTION INTERVIEWER documented in this encounter Plan of Treatment Scheduled Referrals Name Type Priority Associated Diagnoses Order Schedule Ambulatory referral to Ophthalmology Outpatient Referral Routine Controlled type 2 diabetes mellitus without complication, without long-term current use of insulin (CMS/HCC) ([facility]) Expected: 10/16/2023 (Approximate), Expires: 10/15/2024 documented as of this encounter Procedures Procedure Name Priority Date/Time Associated Diagnosis Comments POCT HEMOGLOBIN A1C Routine 10/16/2023 1 :14 PM RECEPTION INTERVIEWER Controlled type 2 diabetes mellitus without complication, without long-term current use of insulin (CMS/HCC) ([facility]) documented in this encounter Results * (ABNORMAL) POCT hemoglobin A1c (10/16/2023 1:14 PM RECEPTION INTERVIEWER) Hemoglobin A1C, POC 8.5 % Blood 10/16/2023 1:14 PM RECEPTION INTERVIEWER Nathan Martinez MD POINT OF CARE TEST [...] documented as of this encounter Care Teams Edge Kitter Relationship Specialty Start Date End Date Nathan Martinez MD PCP - General Family Practice 09/10/20 Monique Garcia MD Referring Physician Gastroenterology 06/11/20 Monique Garcia MD Referring Physician Gastroenterology 06/11/20 documented as of this encounter
--- OUTSIDE RECORDS SUMMARY | 2024-09-03 12:18 | XMS_ITS | Encounter Summary ---
Author Organization [facility] Medical Group Address [address] [address] Care Team Providers Care Hat Band Attacher Name Role Phone Monique Garcia MD Unavailable [phone] Monique Garcia MD Unavailable [phone] Nathan Martinez MD Primary Care Provider [phone] Reason for Visit * Reason Comments Follow-up [...] st Contact Info) Description 09/12/2022 9:15 AM EXECUTIVE HOUSEKEEPER Office Visit [facility] Primary Care [address] [place] [address] Nathan Martinez MD [address] [place] [address] Type 2 diabetes mellitus with hyperglycemia, without long-term current use of insulin (CMS/HCC) (HCC) (Primary Dx); Psychophysiologic insomnia; Major depression in remission ([facility]); Mixed hyperlipidemia; Tinnitus of both ears Social [...] Comments Blood Pressure 112/72 09/12/2022 9:08 AM EXECUTIVE HOUSEKEEPER Pulse 86 09/12/2022 9:08 AM EXECUTIVE HOUSEKEEPER Temperature 36.2 ??C (97.2 ??F) 09/12/2022 9:08 AM CS T Respiratory Rate 18 09/12/2022 9:08 AM EXECUTIVE HOUSEKEEPER Oxygen Saturation 97% 09/12/2022 9:08 AM EXECUTIVE HOUSEKEEPER Inhaled Oxygen Concentration - - Weight 93.1 kg (205 lb 3.2 oz) 09/12/2022 9:08 A M EXECUTIVE HOUSEKEEPER Height 180.3 cm (5' 10.98 ) 09/12/2022 9:[address] Body Mass Index 28.63 09/12/2022 9:08 AM EXECUTIVE HOUSEKEEPER documented in this encounter Ordered Prescriptions Prescription [...] hyperglycemia, without long-term current use of insulin ([facility]) ([facility]) (E11.65) (Primary) Assessment & Plan: A1C TODAY.BMI Follow-up includes: nutrition counseling and exercise counseling. Orders: - POCT hemoglobin A1c Psychophysiologic insomnia (F51.04) Assessment & Plan: Continue trazodone Major depression in remission ([facility]) (F32.5) Assessment & Plan: Continue Lexapro [...] tablet (100 mg total) by mouth daily UTIVE HOUSEKEEPER documented in this encounter Miscellaneous Notes * Assessment & Plan Note - Nathan Martinez MD - 09/12/2022 9:35 AM EXECUTIVE HOUSEKEEPER Associated Problem(s): Tinnitus of both ears Some tinnitus for 2 months. Possible hearing loss. Ear canals normal today drums normal ENT refer UTIVE HOUSEKEEPER * Assessment & Plan Note - Nathan Martinez MD - 09/11/2022 3:45 PM EXECUTIVE HOUSEKEEPER Associated Problem(s): Lipidemia Continue atorvastatin same dosage UTIVE HOUSEKEEPER * Assessment & Plan Note - Nathan Martinez MD - 09/11/2022 3:44 PM EXECUTIVE HOUSEKEEPER Associated Problem(s): Major depression in remission (HCC) Continue Lexapro at same dosage. Well controlled. UTIVE HOUSEKEEPER * Assessment & Plan Note - Nathan Martinez MD - 09/11/2022 3:44 PM EXECUTIVE HOUSEKEEPER Associated Problem(s): Psychophysiologic insomnia Continue trazodone UTIVE HOUSEKEEPER * Assessment & Plan Note - Nathan Martinez MD - 09/11/2022 3:43 PM EXECUTIVE HOUSEKEEPER Associated Problem(s): Type 2 diabetes mellitus with hyperglycemia, without long-term current use of insulin (HCC) A1C TODAY.BMI Follow-up includes: nutrition counseling and exercise counseling. UTIVE HOUSEKEEPER UTIVE HOUSEKEEPER documented in this encounter Plan of Treatment Not on file documented as of this encounter Procedures Procedure Name Priority Date/Time Associated Diagnosis Comments POCT HEMOGLOBIN A1C Routine 09/12/2022 9 :25 AM EXECUTIVE HOUSEKEEPER Type 2 diabetes mellitus with hyperglycemia, without long-term current use of insulin ([facility]) ([facility]) documented in this encounter Results * (ABNORMAL) POCT hemoglobin A1c (09/12/2022 9:25 AM EXECUTIVE HOUSEKEEPER) Hemoglobin A1C, POC 7.6 Blood 09/12/2022 9:25 AM EXECUTIVE HOUSEKEEPER Nathan Martinez MD POINT OF CARE TEST ORDERAB LES Final Result documented in this encounter Visit Diagnoses Diagnosis Type 2 diabetes mellitus with hyperglycemia, without long-term current use of insulin ([facility])- Primary Psychophysiologic insomnia Major depression in remission ([facility]) Major depressive disorder, single episode in full remission Mixed hyperlipidemia Tinnitus of both ears Unspecified tinnitus documented in this encounter Discontinued Medications Medication Sig Discontinue Reason Start Date End Da te modafiniL (PROVIGIL) 100 mg tablet TAKE 1 TABLET(100 MG) BY MOUTH DAILY Reorder 06/11/2022 09/12/2022 documented as of this encounter Care Teams Hat Band Attacher Relationship Specialty Start Date End Date Nathan Martinez MD PCP - General Family Practice 09/10/20 Monique Garcia MD Referring Physician Gastroenterology 06/11/20 Monique Garcia MD Referring Physician Gastroenterology 06/11/20 documented as of this encounter
--- OUTSIDE RECORDS SUMMARY | 2024-09-03 12:18 | XMS_ITS | Encounter Summary ---
Author Organization [facility] Medical Group Address [address] [address] Care Team Providers Care Fruit Picker Name Role Phone Monique Garcia MD Unavailable [phone] Monique Garcia MD Unavailable [phone] Nathan Martinez MD Primary Care Provider [phone] Reason for Visit * Reason Comments Follow-up Four month follow up r/t diabetes, depression. ADD. No current labs in chart. No concerns. Encounter Details Date Type Department Care Team (Latest Contact Info) Description 01/16/2023 9:30 AM CDT Office Visit [facility] Medical [facility] Primary Care [address] [place] [address] Nathan Martinez MD [address] [place] [address] Type 2 diabetes mellitus with hyperglycemia, without long-term current use of insulin ([facility]/HCC) ([facility]) (Primary Dx); Mixed hyperlipidemia; Psychophysiologic insomnia; Major depression in remission ([facility]); Acute pain of left knee; Over weight; [...] hyperglycemia, without long-term current use of insulin ([facility]) (HCC) (E11.65) (Primary) Assessment & Plan: A1c [...] Well controlled. Major depression in remission ([facility]) (F32.5) Assessment & Plan: Continue [...] * Assessment & Plan Note - Nathan Matrinez MD - 01/15/2023 1:24 PM CDT Associated Problem(s): Type 2 diabetes mellitus with hyperglycemia, without long-term current use of insulin ([facility]) A1c today. A1c was improved with result [...] long-term current use of insulin (CMS/HCC) ([facility]) Expected: 07/19/2023, Expires: 01/16/2024 Albumin Creatinine Ratio, Urine Lab Routine Type 2 diabetes mellitus with hyperglycemia, without long-term current use of insulin (CMS/HCC) ([facility]) Expected: 07/19/2023, Expires: 01/16/2024 Comprehensive metabolic panel Lab Routine Type 2 diabetes mellitus with hyperglycemia, without long-term current use of insulin ([facility]) ([facility]) Expected: 07/19/2023, Expires: 01/16/2024 Hemoglobin A1c Lab Routine Type 2 diabetes mellitus with hyperglycemia, without long-term current use of insulin ([facility]) ([facility]) Expected: 07/19/2023, Expires: 01/17/2024 documented as of this encounter Procedures Procedure Name Priority Date/Time Associated Diagnosis Comments POCT HEMOGLOBIN A1C Routine 01/16/2023 9 :59 AM CDT Type 2 diabetes mellitus with hyperglycemia, without long-term current use of insulin ([facility]) ([facility]) documented in this encounter Results * POCT hemoglobin A1c (01/16/2023 9:59 AM CDT) Hemoglobin A1C, POC 6.7 % Blood 01/16/2023 9:59 AM CDT Nathan Martinez MD POINT OF CARE TEST ORDERAB LES Final Result documented in this encounter Visit Diagnoses Diagnosis Type 2 diabetes mellitus with hyperglycemia, without long-term current use of insulin ([facility])- Primary Mixed hyperlipidemia Psychophysiologic insomnia Major depression in remission ([facility]) Major depressive disorder, single episode [...] documented as of this encounter Care Teams Fruit Picker Relationship Specialty Start Date End Date Nathan Martinez MD PCP - General Family Practice 09/10/20 Monique Garcia MD Referring Physician Gastroenterology 06/11/20 Monique Garcia MD Referring Physician Gastroenterology 06/11/20 documented as of this encounter
--- OUTSIDE RECORDS SUMMARY | 2024-09-03 12:18 | XMS_ITS | Encounter Summary ---
Author Organization [facility] Medical Group Address [address] [facility] [address] [place] [address] Care Team Providers Care Internship Name Role Phone Monique Garcia MD Unavailable [phone] Monique Garcia MD Unavailable [phone] Nathan Martinez MD Primary Care Provider [phone] Encounter Details Date Type Department Care Team (Late st Contact Info) Description 12/07/2022 Orders Only [facility] Health Information Management [address] [place] [address] Scanning, Provider Social History Tobacco Use Types [...] on filedocumented in this encounter Care Teams Internship Relationship Specialty Start Date End Date Nathan Martinez MD PCP - General Family Practice 09/10/20 Monique Garcia MD Referring Physician Gastroenterology 06/11/20 Monique Garcia MD Referring Physician Gastroenterology 06/11/20 documented as of this encounter
--- OUTSIDE RECORDS SUMMARY | 2024-09-03 12:18 | XMS_ITS | Encounter Summary ---
Author Organization [facility] Medical Group Address [address] [facility] [address] [place] [address] Care Team Providers Care Station Mechanic Apprentice Name Role Phone Monique Garcia MD Unavailable [phone] Monique Garcia MD Unavailable [phone] Nathan Martinez MD Primary Care Provider [phone] Encounter Details Date Type Department Care Team (Late st Contact Info) Description 03/09/2023 Orders Only [facility] Health Information Management [address] [place] [address] Scanning, Provider Social History Tobacco Use Types [...] on filedocumented in this encounter Care Teams Station Mechanic Apprentice Relationship Specialty Start Date End Date Nathan Martinez MD PCP - General Family Practice 09/10/20 Monique Garcia MD Referring Physician Gastroenterology 06/11/20 Monique Garcia MD Referring Physician Gastroenterology 06/11/20 documented as of this encounter
--- OUTSIDE RECORDS SUMMARY | 2024-09-03 12:18 | XMS_ITS | Encounter Summary ---
Author Organization [facility] Address [address] [facility] [address] [place] [address] Care Team Providers Care Single Resource Boss Name Role Phone Monique Garcia MD Unavailable [phone] Monique Garcia MD Unavailable [phone] Nathan Martinez MD Primary Care Provider [phone] Encounter Details Date Type Department Care Team (Late st Contact Info) Description 02/02/2023 Orders Only [facility] Information Management [address] [place] [address] Scanning, Provider Social History Tobacco Use Types [...] on filedocumented in this encounter Care Teams Single Resource Boss Relationship Specialty Start Date End Date Nathan Martinez MD PCP - General Family Practice 09/10/20 Monique Garcia MD Referring Physician Gastroenterology 06/11/20 Monique Garcia MD Referring Physician Gastroenterology 06/11/20 documented as of this encounter
--- OUTSIDE RECORDS SUMMARY | 2024-09-03 12:18 | XMS_ITS | Encounter Summary ---
Author Organization [facility] Medical Group Address [address] [facility] [address] [place] [address] Care Team Providers Care Hair Colorist Name Role Phone Monique Garcia MD Unavailable [phone] Monique Garcia MD Unavailable [phone] Nathan Martinez MD Primary Care Provider [phone] Reason for Visit * Reason Comments Follow-up Here for follow up r /t left knee pain. Requesting return to work. Reports knee pain has improved. 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 Encounter Details Date Type Department Care Team (Late st Contact Info) Description 12/05/2022 7:45 AM CDT Office Visit [facility] Primary Care [address] [place] [address] Nathan Martinez MD [address] [place] [address] Acute pain of left knee (Primary Dx); Type 2 diabetes mellitus with hyperglycemia, without long-term current use of insulin ([facility]/HCC) ([facility]) Social History Tobacco Use Types Packs/Day Years [...] hyperglycemia, without long-term current use of insulin ([facility]) (HCC) (E11.65) - Ambulatory referral to Ophthalmology; [...] without long-term current use of insulin ([facility]) documented in this encounter Care Teams Hair Colorist Relationship Specialty Start Date End Date Nathan Martinez MD PCP - General Family Practice 09/10/20 Monique Garcia MD Referring Physician Gastroenterology 06/11/20 Monique Garcia MD Referring Physician Gastroenterology 06/11/20 documented as of this encounter
--- OUTSIDE RECORDS SUMMARY | 2024-09-03 12:18 | XMS_ITS | Encounter Summary ---
Author Organization [facility] Healthcare Address [address] [place] [address] Care Team Providers Care Sales Engineer Name Role Phone Monique Garcia MD Unavailable [phone] Monique Garcia MD Unavailable [phone] Nathan Martinez MD Primary Care Provider [phone] Reason for Visit * Reason Comments Back Pain Encounter Details Date Type Department Care Team (Late st Contact Info) Description 09/16/2023 5:50 PM SET UP PERSON - 09/16/2023 9:15 PM [facility] Emergency [facility] Emergency Department [address] [place] [address] Fall, initial encounter (Primary Dx); Mid [...] Comments Blood Pressure 130/78 09/16/2023 9:10 PM SET UP PERSON Pulse 90 09/16/2023 9:10 PM SET UP PERSON Temperature 37 ??C (98.6 ??F) 09/16/2023 4:23 PM SET UP PERSON Respiratory Rate 20 09/16/2023 4:23 PM SET UP PERSON Oxygen Saturation 100% 09/16/2023 9:10 PM SET UP PERSON Inhaled Oxygen Concentration - - Weight 92.4 kg (203 lb 11.3 oz) 09/16/2023 4:23 PM SET UP PERSON Height 180.3 cm (5' 11 ) 09/16/2023 4:23 PM SET UP PERSON Body Mass Index 28.41 09/16/2023 4:23 PM SET UP PERSON documented in this encounter Discharge Instructions * Discharge Instructions* Shellie Molina PA - 09/16/2023 9:09 PM SET UP PERSON The CT of your neck and back [...] symptoms, worsening of symptoms, or persistent symptoms UP PERSON * Attachments The following attachments cannot be sent through Care Everywhere. * Back Pain (AfterCare(R) Instructions(ER/ED)) (New Zealander) documented in this encounter Medications at Time [...] active range of motion accompanied by pain. Programmer Operator Numerical Control strength 5/5 bilaterally. Strength 5/5 at the [...] intact. No weakness. Coordination: Coordination is intact. Cunvdm-Vymf-Plvunx Test normal. Gait: Gait is intact. Gait [...] left arm. Reports fell on ice in [place]5 days ago. Reports was seen there and [...] Hemanth Couch M.D. KH: JÚNIOR Report ID: [id number] Reading Location: [id number] CT Cervical Spine WO Contrast Result Date: 09/16/2023 Narrative: EXAM DESCRIPTION: CT CERVICAL SPINE WO CONTRAST REASON FOR STUDY: Neck pain, acute, no red flags Came to ED for c/o upper back pain that radiates to left arm. Reports fell on ice in [place] 5 days ago. Reports was seen there [...] 5:36 PM - Electronically signed by Hemanth CALLEJAS: JÚNIOR Report ID: [id number] Reading Location: [place] [address] ED COURSE/MEDICAL DECISION MAKING Differential diagnosis included but not limited to sprain, strain, fracture, dislocation, contusion, other Patient's medical records were reviewed. I discussed management or test interpretation with the following outside physician, caregiver, retirement staff: n/a ED Course as of 09/16/23 2795 Time: 09/16 2104 Comment: Patient is feeling much better with medication given in the ER. Patient's paresthesias have completely resolved. Reassuring. 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 Patient has full range of motion of his neck. Patient is stable for discharge home with close follow-up with primary care. By: Shellie Molina PA Time: 09/166 Comment: The patient is a 53-year-old male who presents to the ED with complaints of fall. He has been having some mid back pain, left shoulder pain and some paresthesias to his left arm. Patient reports he has had these paresthesias intermittently before but worse now after the fall. Patient has no red flag back pain symptoms and has equal retail office manager strength bilaterally. . She just did resolve [...] this. By: Shellie Molina PA Time: 09/16 5767 Comment: Recheck on patient. Non toxic appearing, [...] TO FOLLOW UP Nathan Martinez MD [address] [facility] [address] Schedule an appointment as soon as possible [...] Your Medications These medications were sent to [id number] - [place], [place] - [address] [facility] [id number] cyclobenzaprine 10 mg tablet lidocaine 5 % predniSONE 20 mg tablet This examination was transcribed using the [employer] voice recognition system without human airport operations supervisor. In an effort to expedite patient care, this report has not been adjusted for typographical, grammatical, and syntax by a trained auditor medical claims. Shellie Molina PA 09/17/23 0000 Cosigned by Moustapha Forbes MD at 09/17/2023 3:28 AM SET UP PERSON UP PERSON UP PERSON Associated attestation - Moustapha Forbes MD - 09/17/2023 3:28 AM SET UP PERSON ED Attestation I did not see this patient. I was personally available for consultation in the ED for this patient if the Advanced Practice Provider (ERIC) needed any assistance. The ERIC evaluated the patient independently and completed their own examination, documentation, and disposition. * Emily Romero RN - 09/16/2023 4:21 PM CST Came to ED for c/o upper back pain that radiates to left arm. Reports fell on ice in [place]. Reports was seen there and tests negative. UP PERSON documented in this encounter Plan of Treatment Not on file documented as of this encounter Procedures Procedure Name Priority Date/Time Associated Diagnosis Comments CT HEAD WO CONTRAST ED 09/16/2023 6 :52 PM SET UP PERSON XR SHOULDER LEFT 2 OR MORE VIEWS ED 09/16/2023 6:49 PM SET UP PERSON CT THORACIC SPINE WO CONTRAST ED 09/16/2023 5:28 PM SET UP PERSON CT CERVICAL SPINE WO CONTRAST ED 09/16/2023 5:28 PM SET UP PERSON documented in this encounter Results * CT Head WO Contrast (09/16/2023 6:52 PM SET UP PERSON) Anatomical Region Laterality Modality Head and Neck N/A Computed Tomogra phy 09/16/2023 7:12 PM SET UP PERSON Narrative 09/16/2023 7:13 PM SET UP PERSON EXAM DESCRIPTION: CT HEAD WO CONTRAST REASON FOR STUDY: fall, hit head ?? Came to ED for c/o upper back pain that radiates to left arm. Reports fell on ice in [place]. Reports was seen there and tests negative. [...] PM T: ??09/16/2023 7:13 PM Report ID: [id number] Reading Location: ??[id number] Procedure Note Hemanth Couch MD - 09/16/2023 EXAM DESCRIPTION: CT HEAD WO CONTRAST REASON FOR STUDY: fall, hit head Came to ED for c/o upper back pain that radiates to left arm. Reports fellon ice in [place]. Reports was seen there and tests negative. [...] signed by Hemanth CALLEJAS: JÚNIOR Report ID: [id number] Reading Location: [id number] us Shellie MONTENEGRO IMG CT PROCEDURES Final Result * XR Shoulder Left 2 or More Views (09/16/2023 6:49 PM SET UP PERSON) Anatomical Region Laterality Modality Upper Extremities, Shoulder Left Comp uted Radiography 09/16/2023 7:10 PM SET UP PERSON Narrative 09/16/2023 7:12 PM SET UP PERSON EXAM DESCRIPTION: XR SHOULDER LEFT 2 OR MORE VIEWS REASON FOR STUDY: fall ?? Came to ED for c/o upper back pain that radiates to left arm. Reports fell on ice in [place]. Reports was seen there and tests negative. [...] PM T: ??09/16/2023 7:12 PM Report ID: [id number] Reading Location: ??[id number] Procedure Note Hemanth Couch MD - 09/16/2023 EXAM DESCRIPTION: XR SHOULDER LEFT 2 OR MORE VIEWS REASON FOR STUDY: fall Came to ED for c/o upper back pain that radiates to left arm. Reports fellon ice in [place]. Reports was seen there and tests negative. [...] Hemanth Couch M.D. KH: JÚNIOR Report ID: [id number] Reading Location: [place] [address] us Shellie MONTENEGRO IMG XR PROCEDURES Final Result * CT Thoracic Spine WO Contrast (09/16/2023 5:28 PM SET UP PERSON) Anatomical Region Laterality Modality Spine N/A Computed Tomogra phy 09/16/2023 5:36 PM SET UP PERSON Narrative 09/16/2023 5:39 PM SET UP PERSON EXAM DESCRIPTION: ?? CT THORACIC SPINE WO CONTRAST REASON FOR STUDY: ?? Mid-back pain, neuro deficit ?? Came to ED for c/o upper back pain that radiates to left arm. Reports fell on ice in [place] 5 days ago. Reports was seen there [...] PM T: ??09/16/2023 5:39 PM Report ID: [id number] Reading Location: ??[id number] Procedure Note Hemanth Couch MD - 09/16/2023 EXAM DESCRIPTION: CT THORACIC SPINE WO CONTRAST REASON FOR STUDY: Mid-back pain, neuro deficit Came to ED for c/o upper back pain that radiates to left arm. Reports fellon ice in [place] 5 days ago. Reports was seen there [...] signed by Hemanth CALLEJAS: JÚNIOR Report ID: [id number] Reading Location: [id number] Shellie MONTENEGRO IMG CT PROCEDURES Final Result * CT Cervical Spine WO Contrast (09/16/2023 5:28 PM SET UP PERSON) Anatomical Region Laterality Modality Spine N/A Computed Tomogra phy 09/16/2023 5:35 PM SET UP PERSON Narrative 09/16/2023 5:36 PM SET UP PERSON EXAM DESCRIPTION: ?? CT CERVICAL SPINE WO CONTRAST REASON FOR STUDY: ?? Neck pain, acute, no red flags ?? Came to ED for c/o upper back pain that radiates to left arm. Reports fell on ice in [place] 5 days ago. Reports was seen there [...] PM T: ??09/16/2023 5:36 PM Report ID: [id number] Reading Location: ??[id number] Procedure Note Hemanth Couch MD - 09/16/2023 EXAM DESCRIPTION: CT CERVICAL SPINE WO CONTRAST REASON FOR STUDY: Neck pain, acute, no red flags Came to ED for c/o upper back pain that radiates to left arm. Reports fellon ice in [place] 5 days ago. Reports was seen there [...] Hemanth Couch M.D. KH: JÚNIOR Report ID: [id number] Reading Location: [id number] Shellie MONTENEGRO [facility] CT PROCEDURES Final Result documented in this encounter Visit Diagnoses Diagnosis Fall, initial encounter- Primary Mid back pain documented in this encounter Administered Medications Inactive Administered Medications - up to 3 most recent administrations Medication Order MAR Action Action Date Dose Rate Site acetaminophen (TYLENOL) tablet 650 mg 650 mg, oral, Once, On Thu09/16/23 at 1845, For 1 dose Given 09/16/2023 6:53 PM SET UP PERSON 650 mg cyclobenzaprine (FLEXERIL) tablet 10 mg 10 mg, oral, Once, On Thu09/16/23 at 1845, For 1 dose Given 09/16/2023 6:53 PM SET UP PERSON 10 mg dexAMETHasone (DECADRON) preservative free solution 8 mg 8 mg, intramuscular, Once, On Thu09/16/23 at 1949, For 1 dose Given 09/16/2023 7:59 PM SET UP PERSON 8 mg Right Deltoid HYDROcodone-acetaminop hen (NORCO) 5-325 mg per tablet 1 tablet 1 tablet, oral, Once, On Thu09/16/23 at 1949, For 1 dose, Indications: PainIndications:Pain Given 09/16/2023 7:59 PM SET UP PERSON 1 tablet lidocaine (LIDODERM) 5 % patch 1 patch 1 patch, transdermal, Administer over 12 Hours, Once, On Thu09/16/23 at 1845, For 1 dose, Do not cover the holes on the top side of the patch., Apply to affected area: back Medication Applied 09/16/2023 6:54 PM SET UP PERSON 1 patch Back documented in this encounter Active and Recently Administered Medications Times are shown in SET UP PERSON. Scheduled Medication Order 09/14/2023 09/15/2023 09/16/2023 acetaminophen [...] discontinued) documented in this encounter Care Teams Sales Engineer Relationship Specialty Start Date End Date Nathan Martinez MD PCP - General Family Practice 09/10/20 Monique Garcia MD Referring Physician Gastroenterology 06/11/20 Monique Garcia MD Referring Physician Gastroenterology 06/11/20 documented as of this encounter
--- OUTSIDE RECORDS SUMMARY | 2024-09-03 12:18 | XMS_ITS | Encounter Summary ---
Author Organization [facility] Healthcare Address [facility] [place] [address] Care Team Providers Care Earring Maker Name Role Phone Moniqeu Garcia MD Unavailable [phone] Monique Garcia MD Unavailable [phone] Nathan Martinez MD Primary Care Provider [phone] Reason for Visit * Reason Comments Follow-up DM. 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 Encounter Details Date Type Department Care Team (Late st Contact Info) Description 06/23/2023 1:30 PM CDT Office Visit [facility] Medical Group Primary Care [address] [place] [address] Nathan Martinez MD [address] [place] [address] Type 2 diabetes mellitus with [...] current use of insulin ([facility]) (HCC) (E11.65) (Primary) Assessment & Plan: [...] long-term current use of insulin ([facility]) Needs A1c. Continue glipizide and Trulicity same dosage documented in this encounter Plan of Treatment Scheduled Orders Name Type Priority Associated Diagnoses Orde r Schedule Lipid panel Lab Routine Type 2 diabetes mellitus with hyperglycemia, without long-term current use of insulin ([facility]) ([facility]) Expected: 12/22/2023, Expires: 06/23/2024 Comprehensive metabolic panel Lab Routine Type 2 diabetes mellitus with hyperglycemia, without long-term current use of insulin ([facility]) ([facility]) Expected: 12/22/2023, Expires: 06/23/2024 Albumin Creatinine Ratio, Urine Lab Routine Type 2 diabetes mellitus with hyperglycemia, without long-term current use of insulin ([facility]) ([facility]) Expected: 12/22/2023, Expires: 06/23/2024 Hemoglobin A1c Lab Routine Type 2 diabetes mellitus with hyperglycemia, without long-term current use of insulin ([facility]) ([facility]) Expected: 12/22/2023, Expires: 06/23/2024 documented as of this encounter Procedures Procedure Name Priority Date/Time Associated Diagnosis Comments POCT HEMOGLOBIN A1C Routine 06/23/2023 2 :22 PM CDT Type 2 diabetes mellitus with hyperglycemia, without long-term current use of insulin ([facility]) ([facility]) documented in this encounter Results * (ABNORMAL) POCT hemoglobin A1c (06/23/2023 2:22 PM CDT) Hemoglobin A1C, POC 6.9 % Blood 06/23/2023 2:22 PM CDT Nathan Martinez MD POINT OF CARE TEST ORDERAB LES Final Result documented in this encounter Visit Diagnoses Diagnosis Type 2 diabetes mellitus with hyperglycemia, without long-term current use of insulin ([facility])- Primary Mixed hyperlipidemia Psychophysiologic insomnia Major depression in remission ([facility]) Major depressive disorder, single episode in [...] documented as of this encounter Care Teams Earring Maker Relationship Specialty Start Date End Date Nathan Martinez MD PCP - General Family Practice 09/10/20 Monique Garcia MD Referring Physician Gastroenterology 06/11/20 Monique Garcia MD Referring Physician Gastroenterology 06/11/20 documented as of this encounter
--- OUTSIDE RECORDS SUMMARY | 2024-09-03 12:18 | XMS_ITS | Encounter Summary ---
Author Organization [facility] Healthcare Address [address] [place] [address] Care Team Providers Care Dialysis Registered Nurse Name Role Phone Monique Garcia MD Unavailable [phone] Monique Garcia MD Unavailable [phone] Nathan Martinez MD Primary Care Provider [phone] Reason for Visit * Reason Onset Date Comments Back Injury 09/21/2023 Back Pain 09/21/2023 Encounter Details Date Type Department Care Team (Late st Contact Info) Description 09/21/2023 Nurse Triage [facility] Medical Group Primary Care [address] [place] [address] Nathan Martinez MD [address] [place], [place] [id number] Social History Tobacco Use Types Packs/Day Years [...] Miscellaneous Notes * Telephone Encounter - Meggan Lombardo MA - 09/21/2023 3:45 PM CST Spoke with pt and he is going to keep his appt for Thursday S WAREHOUSE DRIVER * Telephone Encounter - Jessica Camacho RN - 09/21/2023 3:12 PM SALES WAREHOUSE DRIVER Reason for Disposition SEVERE back pain (e.g., excruciating, unable to do any normal activities) and not improved after pain medicine and CARE ADVICE Protocols used: Back [id number] Nurse Triage Disposition: Go to office now. [...] his left side fingers. 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 Lidocaine patches provide the most relief but it does not last long. Forwarding to Nathan Martinez MD and clinical team for review and intervention. Erich N Alejandro can be reached at [phone]. S WAREHOUSE DRIVER * Telephone Encounter - Jessica Camacho RN - 09/21/2023 2:59 PM SALES WAREHOUSE DRIVER Regarding: back injury, severe back pain ----- Message from Patience Aj MA sent at 09/21/2023 2:59 PM SALES WAREHOUSE DRIVER ----- Symptom Based Call Chief Complaint(s): back [...] message need to be routed? Yes-Action Needed S WAREHOUSE DRIVER documented in this encounter Plan of Treatment Not on file documented as of this encounter Visit Diagnoses Not on filedocumented in this encounter Care Teams Dialysis Registered Nurse Relationship Specialty Start Date End Date Nathan Martinez MD PCP - General Family Practice 09/10/20 Monique Garcia MD Referring Physician Gastroenterology 06/11/20 Monqiue Garcia MD Referring Physician Gastroenterology 06/11/20 documented as of this encounter
--- OUTSIDE RECORDS SUMMARY | 2024-09-03 12:18 | XMS_ITS | Encounter Summary ---
Author Organization [facility] Medical Group Address [address] [facility] [address] [place] [address] Care Team Providers Care Airplane Flight Attendant Supervisor Name Role Phone Monique Garcia MD Unavailable [phone] Monique Garcia MD Unavailable [phone] Nathan Martinez MD Primary Care Provider [phone] Encounter Details Date Type Department Care Team (Late st Contact Info) Description 05/17/2023 Orders Only [facility] Information Management [address] [place] [address] Scanning, Provider Social History Tobacco Use Types [...] on filedocumented in this encounter Care Teams Airplane Flight Attendant Supervisor Relationship Specialty Start Date End Date Nathan Martinez MD PCP - General Family Practice 09/10/20 Monique Garcia MD Referring Physician Gastroenterology 06/11/20 Monique Garcia MD Referring Physician Gastroenterology 06/11/20 documented as of this encounter
--- OUTSIDE RECORDS SUMMARY | 2024-09-03 12:18 | XMS_ITS | Encounter Summary ---
Author Organization [facility] Healthcare Address [address] [place] [address] Care Team Providers Care Horticultural Specialty Grower Field Name Role Phone Monique Garcia MD Unavailable [phone] Monique Garcia MD Unavailable [phone] Nathan Martinez MD Primary Care Provider [phone] Encounter Details Date Type Department Care Team (Late st Contact Info) Description 11/12/2023 Orders Only [facility] Health Information Management [address] [place] [address] Scanning, Provider Social History Tobacco Use Types [...] on filedocumented in this encounter Care Teams Horticultural Specialty Grower Field Relationship Specialty Start Date End Date Nathan Martinez MD PCP - General Family Practice 09/10/20 Monique Garcia MD Referring Physician Gastroenterology 06/11/20 Monique Garcia MD Referring Physician Gastroenterology 06/11/20 documented as of this encounter
--- OUTSIDE RECORDS SUMMARY | 2024-09-03 12:18 | XMS_ITS | Encounter Summary ---
Author Organization [facility] Medical Group Address [address] [address] Care Team Providers Care Student Records Specialist Name Role Phone Monique Garcia MD Unavailable [phone] Monique Garcia MD Unavailable [phone] Nathan Martinez MD Primary Care Provider [phone] Reason for Visit * Reason Comments Knee [...] Description 12/01/2022 8:00 AM CDT Office Visit [facility] Medical Group Primary Care [address] [place] [address] Nathan Martinez MD [address] [place], [place] [id number] Acute pain of left knee (Primary Dx) [...] 28 he went to the ER in [facility] and they x-rayed it and x-rays [...] Primary documented in this encounter Care Teams Student Records Specialist Relationship Specialty Start Date End Date Nathan Martinez MD PCP - General Family Practice 09/10/20 Monique Garcia MD Referring Physician Gastroenterology 06/11/20 Monique Garcia MD Referring Physician Gastroenterology 06/11/20 documented as of this encounter
--- OUTSIDE RECORDS SUMMARY | 2024-09-03 12:18 | XMS_ITS | Encounter Summary ---
Author Organization [facility] Medical Group Address [address] [facility] [address] [place] [address] Care Team Providers Care Loom Repairer Name Role Phone Monique Garcia MD Unavailable [phone] Monique Garcia MD Unavailable [phone] Nathan Martinez MD Primary Care Provider [phone] Encounter Details Date Type Department Care Team (Late st Contact Info) Description 02/03/2023 Orders Only [facility] [place] Management [address] [place] [address] Scanning, Provider Social History Tobacco Use Types [...] on filedocumented in this encounter Care Teams Loom Repairer Relationship Specialty Start Date End Date Nathan Martinez MD PCP - General Family Practice 09/10/20 Monique Garcia MD Referring Physician Gastroenterology 06/11/20 Monique Garcia MD Referring Physician Gastroenterology 06/11/20 documented as of this encounter
--- OUTSIDE RECORDS SUMMARY | 2024-09-03 12:18 | XMS_ITS | Encounter Summary ---
Author Organization [facility] Medical Group Address [address] [facility] [address] [place] [address] Care Team Providers Care Tempering Machine Operator Name Role Phone Monique Garcia MD Unavailable [phone] Monique Garcia MD Unavailable [phone] Nathan Martinez MD Primary Care Provider [phone] Encounter Details Date Type Department Care Team (Late st Contact Info) Description 04/14/2023 Orders Only [facility] Health Information Management [address] [place] [address] Scanning, Provider Social History Tobacco Use Types [...] on filedocumented in this encounter Care Teams Tempering Machine Operator Relationship Specialty Start Date End Date Nathan Martinez MD PCP - General Family Practice 09/10/20 Monique Garcia MD Referring Physician Gastroenterology 06/11/20 Monique Garcia MD Referring Physician Gastroenterology 06/11/20 documented as of this encounter
--- OUTSIDE RECORDS SUMMARY | 2024-09-03 12:19 | XMS_ITS | Encounter Summary ---
Author Organization [facility] Medical Group Address [address] [address] Care Team Providers Care Waiter/Waitress Dining Car Name Role Phone Monique Garcia MD Unavailable [phone] Monique Garcia MD Unavailable [phone] Nathan Martinez MD Primary Care Provider [phone] Reason for Visit * Reason Onset Date Comments Lab Results 05/06/2022 Encounter Details Date Type Department Care Team (Late st Contact Info) Description 05/06/2022 Telephone [facility] Medical [facility] Primary Care [address] [place] [address] Nathan Martinez MD [address] [place] [address] Lab Results Social History Tobacco [...] on filedocumented in this encounter Care Teams Waiter/Waitress Dining Car Relationship Specialty Start Date End Date Nathan Martinez MD PCP - General Family Practice 09/10/20 Monique Garcia MD Referring Physician Gastroenterology 06/11/20 Monique Garcia MD Referring Physician Gastroenterology 06/11/20 documented as of this encounter
--- OUTSIDE RECORDS SUMMARY | 2024-09-03 12:19 | XMS_ITS | Encounter Summary ---
Author Organization [facility] Medical Group Address [address] [place] [address] Care Team Providers Care Shoe Repairer Apprentice Name Role Phone Monique Garcia MD Unavailable [phone] Monique Garcia MD Unavailable [phone] Nathan Martinez MD Primary Care Provider [phone] Encounter Details Date Type Department Care Team (Late st Contact Info) Description 01/09/2021 Orders Only [facility] Health Information Management [address] [place] [address] Scanning, Provider Social History Tobacco Use Types [...] on filedocumented in this encounter Care Teams Shoe Repairer Apprentice Relationship Specialty Start Date End Date Nathan Martinez MD PCP - General Family Practice 09/10/20 Monique Garcia MD Referring Physician Gastroenterology 06/11/20 Monique Garcia MD Referring Physician Gastroenterology 06/11/20 documented as of this encounter
--- OUTSIDE RECORDS SUMMARY | 2024-09-03 12:19 | XMS_ITS | Encounter Summary ---
Author Organization [facility] Medical Group Address [address] [place] [address] Care Team Providers Care Senior Benefits Analyst Name Role Phone Monique Garcia MD Unavailable [phone] Monique Garcia MD Unavailable [phone] Nathan Martinez MD Primary Care Provider [phone] Encounter Details Date Type Department Care Team (Late st Contact Info) Description 12/17/2020 Orders Only [facility] Health Information Management [address] [place] [address] Scanning, Provider Social History Tobacco Use Types [...] as of this encounter Care Teams Senior Benefits Analyst Relationship Specialty Start Date End Date Nathan Martinez MD PCP - General Family Practice 09/10/20 Monique Garcia MD Referring Physician Gastroenterology 06/11/20 Monique Garcia MD Referring Physician Gastroenterology 06/11/20 documented as of this encounter
--- OUTSIDE RECORDS SUMMARY | 2024-09-03 12:19 | XMS_ITS | Encounter Summary ---
Author Organization [facility] Address [address] [place] [address] Care Team Providers Care Services Coordinator Name Role Phone Monique Garcia MD Unavailable [phone] Monique Garcia MD Unavailable [phone] Nathan Martinez MD Primary Care Provider [phone] Reason for Visit * Reason Comments Abdominal Pain Encounter Details Date Type Department Care Team (Late st Contact Info) Description 09/02/2021 9:59 AM MANAGER OF EMPLOYEE RELATIONS - 09/02/2021 12:19 PM [facility] Emergency [facility] Emergency Department [address] [place] [id number] Constipation, unspecified constipation type (Primary Dx); Hepatic [...] Comments Blood Pressure 141/91 09/02/2021 12:00 PM MANAGER OF EMPLOYEE RELATIONS Pulse 84 09/02/2021 12:00 PM MANAGER OF EMPLOYEE RELATIONS Temperature 36.4 ??C (97.6 ??F) 09/02/2021 9:33 AM CS T Respiratory Rate 18 09/02/2021 12:0 0 PM MANAGER OF EMPLOYEE RELATIONS Oxygen Saturation 98% 09/02/2021 12: 00 PM MANAGER OF EMPLOYEE RELATIONS Inhaled Oxygen Concentration - - Weight 95.7 kg (210 lb 15.7 oz) 09/02/2021 9:33 AM MANAGER OF EMPLOYEE RELATIONS Height 180.3 cm (5' 11 ) 09/02/2021 9:33 AM MANAGER OF EMPLOYEE RELATIONS Body Mass Index 29.43 09/02/2021 9:33 AM MANAGER OF EMPLOYEE RELATIONS documented in this encounter Discharge Instructions * Discharge Instructions* Jennifer Watters PA - 09/02/2021 12:05 PM MANAGER OF EMPLOYEE RELATIONS Make sure to drink plenty of fluids. Increase your daily fiber intake to help prevent constipation.You can also take a stool softener as directed to help prevent constipation. You can take MiraLax as directed until you have soft stools. Follow-up with your primary care provider. Return to the ER if you develop any new or worsening symptoms. GER OF EMPLOYEE RELATIONS * Attachments The following attachments cannot be sent through Care Everywhere. * Constipation (AfterCare(R) Instructions(ER/ED)) (Northern Irish) documented in this encounter Medications at Time [...] tendency for uric acid stone formation. Source: [facility] [employer].Last revised 09-03-2017 COMPREHENSIVE METABOLIC PANEL - Abnormal [...] 15.7 oz) SpO2 98% BMI 29.43 kg/m?? [facility] ED Course as of 09/02/21 1548 [...] PA This examination was transcribed using the [employer] voice recognition system without human systematic theology professor. In an effort to expedite patient care, this report has not been adjusted for typographical, grammatical, and syntax by a trained medical director. Close outpatient follow-up with a low threshold to return has been mandated , concerning symptoms have been emphasized in detail, and this patient expresses understanding Clinical Impression: Constipation, unspecified constipation type Hepatic steatosis Jennifer Watters PA 09/02/21 1548 Cosigned by Humberto Zaragoza MD at 09/02/2021 5:14 PM MANAGER OF EMPLOYEE RELATIONS GER OF EMPLOYEE RELATIONS GER OF EMPLOYEE RELATIONS * Sravan Fabian RN - 09/02/2021 9:34 AM CST Pt arrived to ER with c/o RLQ abdominal pain, nausea and diarrhea, symptoms started 10 days ago. PMH of of abdominal hernia repair (3 times) and bowel obstruction. Small BM yesterday. Pt is AOx4, up ad jesusita. GER OF EMPLOYEE RELATIONS GER OF EMPLOYEE RELATIONS documented in this encounter Plan of Treatment Not on file documented as of this encounter Procedures Procedure Name Priority Date/Time Associated Diagnosis Comments POCT GLUCOSE DEVICE Routine 09/02/2021 1 2:00 PM MANAGER OF EMPLOYEE RELATIONS URINALYSIS AND REFLEX TO MICROSCOPIC AND CULTURE STAT 09/02/2021 11:19 AM MANAGER OF EMPLOYEE RELATIONS POCT GLUCOSE DEVICE Routine 09/02/2021 1 1:05 AM MANAGER OF EMPLOYEE RELATIONS CT ABDOMEN PELVIS W CONTRAST ED 09/02/2021 10:21 AM MANAGER OF EMPLOYEE RELATIONS POCT CREATININE FOR CONTRAST EVALUATION Routine 09/02/2021 10:00 AM MANAGER OF EMPLOYEE RELATIONS POCT CREATININE FOR CONTRAST EVALUATION Routine 09/02/2021 9:51 AM MANAGER OF EMPLOYEE RELATIONS EGFR STAT 09/02/2021 9:48 AM MANAGER OF EMPLOYEE RELATIONS DIFFERENTIAL AUTO STAT 09/02/2021 9:4 8 AM MANAGER OF EMPLOYEE RELATIONS CBC WITH AUTO DIFFERENTIAL STAT 09/02/2021 9:48 AM MANAGER OF EMPLOYEE RELATIONS LIPASE STAT 09/02/2021 9:48 AM MANAGER OF EMPLOYEE RELATIONS COMPREHENSIVE METABOLIC PANEL STAT 09/02/2021 9:48 AM MANAGER OF EMPLOYEE RELATIONS documented in this encounter Results * (ABNORMAL) POCT glucose (09/02/2021 12:00 PM MANAGER OF EMPLOYEE RELATIONS) Glucose, POC 312(H) 70 - 199 mg/dL TERESA RAYMUNDO Comment:Testing performed by : [facility] [address] [place] [address]., [address] Glucose comment 1 Use This Result TERESA RAYMUNDO Comment:Testing performed by : [address] [address] Blood 09/02/2021 12:0 0 PM MANAGER OF EMPLOYEE RELATIONS 09/02/2021 12:00 PM MANAGER OF EMPLOYEE RELATIONS us Notinfile Unknown LAB POCT ORDERABLES - DEVICE F inal Result TERESA RAYMUNDO [facility] Department of Laboratories [place], [place] [id number] * (ABNORMAL) Urinalysis reflex to microscopic and culture Urine (09/02/2021 11:19 AM MANAGER OF EMPLOYEE RELATIONS) Color, ur Straw Yellow TERESA RAYMUNDO Comment:Testing performed by : [address] [address] Clarity, ur Clear Clear TERESA Comment:Testing performed by : [address] [address] Specific gravity, ur 1.010 1.003 - 1.030 TERESA Comment:Testing performed by : [address] [address] pH, urine 6.5 TERESA Comment:Testing performed by : [address] [address] Protein, ur ql Negative Negative TERESA Comment:Testing performed by : [address] [address] Glucose, ur ql 3+(A) Negative TERESA Comment:Testing performed by : [address] [address] Ketones, ur Negative Negative TERESA Comment:Testing performed by : [address] [address] Bilirubin, ur Negative Negative TERESA Comment:Testing performed by : [facility], [address] [place] [address], [place]., [address] Blood, ur Negative Negative TERESA Comment:Testing performed by : [address], [place]., [address] Urobilinogen, ur 0.2 <2.0 mg/dL TERESA Comment:Testing performed by : [address], [place]., [address] Nitrite, ur Negative Negative TERESA Comment:Testing performed by : [address], [place]., [address] Leukocyte esterase, ur Negative Negative TERESA Comment:Testing performed by : [address], [place]., [address] UA reflex comment Reflex conditions for microscopic UA and culture not met. TERESA Comment:Testing performed by : [address], [place]., [address] Urine 09/02/2021 11:1 9 AM MANAGER OF EMPLOYEE RELATIONS 09/02/2021 11:24 AM MANAGER OF EMPLOYEE RELATIONS Narrative TERESA - 09/02/2021 11:34 AM MANAGER OF EMPLOYEE RELATIONS ?? Urine pH is affected by diet, medications, systemic acid-base disturbances, and renal tubular function. ??pH may affect urinary stone formation. ??For example, urine pH below 6.0 may help reduce the tendency for calcium phosphate stones and pH greater than 6.0 may reduce the tendency for uric acid stone formation. Source: [facility] [employer]. Last revised 09-03-2017 us Jennifer MONTENEGRO LAB MICROBIOLOGY - GENERAL ORDERABLES Final Result TERESA [address] [facility] Department [place] [address] * (ABNORMAL) POCT glucose (09/02/2021 11:05 AM MANAGER OF EMPLOYEE RELATIONS) [facility] Glucose, POC 363(H) 70 - 199 mg/dL TERESA Comment:Testing performed by : [address], [place]., [address] Glucose comment 1 Use This Result TERESA RAYMUNDO Comment:Testing performed by : [facility], [address] [place] [address], [place]., [address] Blood 09/02/2021 11:0 5 AM MANAGER OF EMPLOYEE RELATIONS 09/02/2021 11:05 AM MANAGER OF EMPLOYEE RELATIONS us Notinfile Unknown LAB POCT ORDERABLES - DEVICE F inal Result TERESA RAYMUNDO [address] [facility] Department [place] [address] * CT Abdomen Pelvis W Contrast (09/02/2021 10:21 AM MANAGER OF EMPLOYEE RELATIONS) Anatomical Region Laterality Modality Body N/A Computed Tomogra phy 09/02/2021 10:3 1 AM MANAGER OF EMPLOYEE RELATIONS Narrative 09/02/2021 10:39 AM MANAGER OF EMPLOYEE RELATIONS EXAM DESCRIPTION: ?? CT ABDOMEN PELVIS W [...] AM T: ??09/02/2021 10:39 AM Report ID: [id number] Reading Location: ??[id number] Procedure Note Max Ocampo Jr., MD - [...] Max Ocampo M.D. CH: SARAH Report ID: [id number] Reading Location: [place] [address] PROCEDURES F inal Result * POCT creatinine for contrast evaluation (09/02/2021 10:00 AM MANAGER OF EMPLOYEE RELATIONS) Pathologist [facility] Creatinine, POC 1.1 0.6 - 1.3 mg/dL Blood specimen (specimen) 09/02/2021 10:00 AM MANAGER OF EMPLOYEE RELATIONS Jennifer MONTENEGRO POINT OF CARE TEST ORDERABLES Final Result * POCT creatinine for contrast evaluation (09/02/2021 9:51 AM MANAGER OF EMPLOYEE RELATIONS) [facility] Creatinine POC 1.10 0.80 - 1.30 mg/dL TERESA RAYMUNDO Comment:Testing performed by : [facility], [address] [place] [address]., [address] Blood 09/02/2021 9:51 AM MANAGER OF EMPLOYEE RELATIONS 09/02/2021 9:51 AM MANAGER OF EMPLOYEE RELATIONS us Notinfile Unknown POINT OF CARE TEST ORDERABLES Final Result TERESA RAYMUNDO [address] [facility] Department [place] [address] * eGFR (09/02/2021 9:48 AM MANAGER OF EMPLOYEE RELATIONS) [facility] eGFR 91 mL/min/1. 73 m2 TERESA RAYMUNDO [...] last reviewed 2021. Testing performed by: [facility], [address] [place] [address]., [address] Blood 09/02/2021 9:48 AM MANAGER OF EMPLOYEE RELATIONS 09/02/2021 9:53 AM MANAGER OF EMPLOYEE RELATIONS us Jennifer MONTENEGRO LAB BLOOD ORDERABLE S Final Result TERESA [address] [facility] [place] [address] * Differential, auto (09/02/2021 9:48 AM MANAGER OF EMPLOYEE RELATIONS) Pathologist [facility] Neutrophil abs 2.6 1.7 - 6.5 K/cumm TERESA Comment:Testing performed by : [address] [address] Imm gran abs 0.0 0.0 - 0.1 K/cumm CERNER Comment:Testing performed by : [address], [place]., [address] Lymphocyte abs 1.7 0.8 - 3.3 K/cumm CERLEEANNE Comment:Testing performed by : [address] [address] Monocyte abs 0.3 0.2 - 0.8 K/cumm CERLEEANNE Comment:Testing performed by : [address] [address] Eosinophil abs 0.1 0.0 - 0.5 K/cumm [facility] Comment:Testing performed by : [address] [address] Basophil abs 0.0 0.0 - 0.1 K/cumm [facility] Comment:Testing performed by : [address] [address] Neutrophil pct 55.5 % [facility] Comment: Interpretive Data Percent cell count reference ranges are not reported, since discordance with absolute values may lead to misinterpretation of CBC data. Current Interpretive Data was last revised on 2017. Testing performed by: [address] [address] Imm gran pct 0.2 % [facility] Comment: Interpretive Data Percent cell count reference ranges are not reported, since discordance with absolute values may lead to misinterpretation of CBC data. Current Interpretive Data was last revised on 2017. Testing performed by: [address] [address] Lymphocyte pct 35.6 % [facility] Comment: Interpretive Data Percent cell count reference ranges are not reported, since discordance with absolute values may lead to misinterpretation of CBC data. Current Interpretive Data was last revised on 2017. Testing performed by: [address] [address] Monocyte pct 6.8 % [facility] Comment: Interpretive Data Percent cell count reference ranges are not reported, since discordance with absolute values may lead to misinterpretation of CBC data. Current Interpretive Data was last revised on 2017. Testing performed by: [address] [place]., [address] Eosinophil pct 1.3 % TERESA Comment: Interpretive Data Percent cell count reference ranges are not reported, since discordance with absolute values may lead to misinterpretation of CBC data. Current Interpretive Data was last revised on 2017. Testing performed by: [address] [address] Basophil pct 0.6 % TERESA Comment: Interpretive Data Percent cell count reference ranges are not reported, since discordance with absolute values may lead to misinterpretation of CBC data. Current Interpretive Data was last revised on 2017. Testing performed by: [address] [address] Blood 09/02/2021 9:48 AM MANAGER OF EMPLOYEE RELATIONS 09/02/2021 9:53 AM MANAGER OF EMPLOYEE RELATIONS Jennifer MONTENEGRO LAB BLOOD ORDERABLE S Final Result Performing Organization Address City/[facility]/ZIP Co de Phone Number [address] [place] [address] * Lipase (09/02/2021 9:48 AM MANAGER OF EMPLOYEE RELATIONS) Lipase 57 10 - 99 Units/L TERESA Comment:Testing performed by : [address] [address] Blood 09/02/2021 9:48 AM MANAGER OF EMPLOYEE RELATIONS 09/02/2021 9:53 AM MANAGER OF EMPLOYEE RELATIONS Jennifer MONTENEGRO LAB BLOOD ORDERABLE S Final Result [address] [place] [address] * (ABNORMAL) CBC with auto differential (09/02/2021 9:48 AM MANAGER OF EMPLOYEE RELATIONS) WBC 4.7 3.8 - 9.9 K/cumm TERESA RAYMUNDO Comment:Testing performed by : [address] [address] Hgb 14.7 13.0 - 17.5 g/dL TERESA Comment:Testing performed by : [address] [address] Hct 46.3 38.9 - 50.3 % TERESA Comment:Testing performed by : [address] [address] Plt 257 150 - 400 K/cumm TERESA Comment:Testing performed by : [address] [address] MPV 9.3 9.1 - 12.3 fL TERESA Comment:Testing performed by : [address] [address] RBC 5.71 4.30 - 5.80 M/cumm TERESA Comment:Testing performed by : [address] [address] MCV 81.1(L) 81.3 - 96.4 fL TERESA Comment:Testing performed by : [address] [address] MCH 25.7(L) 27.1 - 33.3 pg TERESA Comment:Testing performed by : [address] [address] MCHC 31.7(L) 32.3 - 35.7 g/dL TERESA Comment:Testing performed by : [address] [address] RDW CV 13.8 11.1 - 14.9 % TERESA Comment:Testing performed by : [address] [address] RDW SD 39.6 35.7 - 48.1 fL TERESA Comment:Testing performed by : [address] [address] NRBC abs 0.00 0.00 - 0.01 K/cumm TERESA Comment:Testing performed by : [address] [address] Blood 09/02/2021 9:48 AM MANAGER OF EMPLOYEE RELATIONS 09/02/2021 9:53 AM MANAGER OF EMPLOYEE RELATIONS us Jennifer MONTENEGRO LAB BLOOD ORDERABLE S Final Result TERESA [address] [facility] Department [place] [address] * (ABNORMAL) Comprehensive metabolic panel (09/02/2021 9:48 AM MANAGER OF EMPLOYEE RELATIONS) Sodium 132(L) 135 - 145 mmol/L TERESA Comment:Testing performed by : [address] [address] Potassium, pl 4.3 3.3 - 4.9 mmol/L TERESA Comment:Testing performed by : [address] [address] Chloride 93(L) 97 - 110 mmol/L TERESA Comment:Testing performed by : [address] [address] CO2 25 22 - 32 mmol/L TERESA Comment:Testing performed by : [address] [address] Anion gap 14 2 - 15 mmol/L TERESA Comment:Testing performed by : [address] [address] BUN 12 8 - 25 mg/dL TERESA Comment:Testing performed by : [address] [address] Creatinine 1.00 0.80 - 1.30 mg/dL TERESA Comment:Testing performed by : [address] [address] Glucose 375(H) 70 - 199 mg/dL TERESA [...] was last revised 2017. Testing performed by: [facility], [address] [place] [address], [address] Calcium 9.5 8.5 - 10.3 mg/dL TERESA Comment:Testing performed by : [address] [address] Bilirubin, total 0.2 0.1 - 1.2 mg/dL [facility] Comment:Testing performed by : [address], [address] Protein, pl 7.4 6.5 - 8.5 g/dL [facility] Comment:Testing performed by : [address] [address] Albumin 4.3 3.5 - 5.0 g/dL [facility] Comment:Testing performed by : [address], [address] Alk phos 92 40 - 130 Units/L [facility] Comment:Testing performed by : [address] [address] ALT 32 7 - 55 Units/L [facility] Comment:Testing performed by : [address], [address] AST 20 10 - 50 Units/L [facility] Comment:Testing performed by : [address] [address] Blood 09/02/2021 9:48 AM MANAGER OF EMPLOYEE RELATIONS 09/02/2021 9:53 AM MANAGER OF EMPLOYEE RELATIONS us Jennifer MONTENEGRO LAB BLOOD ORDERABLE S Final Result [facility] [address] [facility] [place] [address] documented in this encounter Visit [...] For 1 dose Given 09/02/2021 11:27 AM MANAGER OF EMPLOYEE RELATIONS 5 Units ioversoL (OPTIRAY 350) syringe syringe 100 mL 100 mL, intravenous, Once in imaging, contrast, Starting on Thu09/02/21 at 1019, For 1 dose Contrast Given 09/02/2021 10:20 AM MANAGER OF EMPLOYEE RELATIONS 100 mL Left Antecubital ondansetron (ZOFRAN) injection 4 mg 4 mg, intravenous, Administer over 2 Minutes, Once, On Thu09/02/21 at 0939, For 1 dose Given 09/02/2021 10:28 AM MANAGER OF EMPLOYEE RELATIONS 4 mg sodium chloride 0.9% bolus 1,000 mL 1,000 mL, intravenous, Once, On Thu09/02/21 at 0939, For 1 dose New Bag 09/02/2021 10:29 AM MANAGER OF EMPLOYEE RELATIONS 1,000 mL sodium chloride 0.9% flush 125 mL 125 mL, intravenous, Once in imaging, line care, Starting on Thu09/02/21 at 1019, For 1 dose Given 09/02/2021 10:20 AM MANAGER OF EMPLOYEE RELATIONS 125 mL Left Antecubital documented in this encounter Active and Recently Administered Medications Times are shown in MANAGER OF EMPLOYEE RELATIONS. Scheduled Medication Order 08/31/2021 09/01/2021 09/02/2021 insulin [...] 09/02/2021 documented in this encounter Care Teams Services Coordinator Relationship Specialty Start Date End Date Nathan Martinez MD PCP - General Family Practice 09/10/20 Monique Garcia MD Referring Physician Gastroenterology 06/11/20 Monique Garcia MD Referring Physician Gastroenterology 06/11/20 documented as of this encounter
--- OUTSIDE RECORDS SUMMARY | 2024-09-03 12:19 | XMS_ITS | Encounter Summary ---
Author Organization [facility] Address [address] [place] [address] Phone Care Team Providers Care Electrician Underground Name Role Phone Monique Garcia MD Unavailable [phone] Monique Garcia MD Unavailable [phone] Nathan Martinez MD Primary Care Provider [phone] Reason for Visit * Reason Comments Post-op septo/turbs 11/07/20 Encounter Details Date Type Department Care Team (Late st Contact Info) Description 11/12/2020 11:15 AM CDT Office Visit [facility] Otolaryngology [address] [place] [id number] Yousif Weston II, MD [address] [place] [address] Deviated nasal septum (Primary Dx); Hypertrophy [...] Notes * Yousif Weston II, MD - 11/12/2020 11:15 AM CDT [...] Yousif Weston II, M.D. Department of Otolaryngology [facility] documented in this encounter Plan of Treatment [...] documented as of this encounter Care Teams Electrician Underground Relationship Specialty Start Date End Date Nathan Martinez MD PCP - General Family Practice 09/10/20 Monique Garcia MD Referring Physician Gastroenterology 06/11/20 Monique Garcia MD Referring Physician Gastroenterology 06/11/20 documented as of this encounter
--- OUTSIDE RECORDS SUMMARY | 2024-09-03 12:19 | XMS_ITS | Encounter Summary ---
Author Organization [facility] Healthcare Address [facility] [place] [address] Care Team Providers Care Envelope Machine Adjuster Name Role Phone Monique Garcia MD Unavailable [phone] Monique Garcia MD Unavailable [phone] Nathan Martinez MD Primary Care Provider [phone] Reason for Referral * Diagnostic Imaging (Routine) - Closed Specialty Diagnoses / Procedures Referred By Hugo dang Referred To Contact Diagnoses Other specified diseases of intestine Procedures FL Small Bowel Series Clementina Hood MD [address] [place] [address] Phone: tel: fax: [address] [phone] Referral ID Status Reason Start Date Expiration Date Visits Re quested Visits Authorized [id number] Closed 01/07/2022 02/06/2023 1 1 Reason for Visit * Diagnostic Imaging (Routine) - Closed Specialty Diagnoses / Procedures Referred By Hugo dnag Referred To Contact Diagnoses Other specified diseases of intestine Procedures FL Small Bowel Series Clementina Hood MD [address] [place] [address] Phone: tel: fax: [address] [phone] Referral ID Status Reason Start Date Expiration Date Visits Re quested Visits Authorized [id number] Closed 01/07/2022 02/06/2023 1 1 Encounter Details Date Type Department Care Team (Latest Contact Info) Description 01/10/2022 8:36 AM CDT - 01/10/2022 11:59 PM CDT Hospital Encounter [facility] Diagnostic Imaging [facility] [place] [address] Other specified diseases of intestine Discharge Disposition: [...] images and 10 overhead radiographs. PROCEDURE: Initial franchise business consultant image of abdomen acquired, followed by administration of ?? water-soluble ??oral contrast. ??Serial radiographic images acquired. ?? Fluoroscopic images recorded of the terminal ileum and other indicated areas. ?? Compression spot images obtained where possible. ?? FINDINGS: INDUCTION BRAZER KUB: ?? There are scattered prominent air-filled [...] AM T: ??01/10/2022 10:24 AM Report ID: [id number] Reading Location: ??[id number] Procedure Note Jena Forbes, DO - 01/10/2022 [...] images and 10 overhead radiographs. PROCEDURE: Initial franchise business consultant image of abdomen acquired, followed byadministration of water-soluble oral contrast. Serial radiographic images acquired. Fluoroscopic images recorded of the terminal ileum and other indicatedareas. Compression spot images obtained where possible. FINDINGS: INDUCTION BRAZER KUB: There are scattered prominent air-filled loops [...] Jena Forbes D.O. PS: PS Report ID: [id number] Reading Location: [id number] Clementina Hood MD IMG FLUOROSCOPY PROCEDURES Final [...] 01/10/2022 documented in this encounter Care Teams Envelope Machine Adjuster Relationship Specialty Start Date End Date Nathan Martinez MD PCP - General Family Practice 09/10/20 Monique Garcia MD Referring Physician Gastroenterology 06/11/20 Monique Garcia MD Referring Physician Gastroenterology 06/11/20 documented as of this encounter
--- OUTSIDE RECORDS SUMMARY | 2024-09-03 12:19 | XMS_ITS | Encounter Summary ---
Author Organization [facility] Medical [facility] Address [address] [address] Care Team Providers Care Erp Programmer Name Role Phone Monique Garcia MD Unavailable [phone] Monique Garcia MD Unavailable [phone] Nathan Martinez MD Primary Care Provider [phone] Reason for Visit * Reason Comments Abdominal [...] Description 12/16/2021 9:30 AM CDT Office Visit [facility] Primary [facility] [address] [place] [address] Nathan Martinez MD [address] [place] [address] Type 2 diabetes mellitus with hyperglycemia, without long-term current use of insulin (CMS/HCC) (HCC) (Primary Dx); Attention deficit disorder (ADD) without hyperactivity; Major depression in remission ([facility]); Psychophysiologic insomnia; Right lower quadrant pain; Left [...] hyperglycemia, without long-term current use of insulin ([facility]) (HCC) (E11.65) (Primary) Assessment & Plan: [...] hyperglycemia, without long-term current use of insulin ([facility]) ([facility]) Expected: 12/16/2021, Expires: 12/16/2022 Hemoglobin A1c Lab Routine Type 2 diabetes mellitus with hyperglycemia, without long-term current use of insulin ([facility]/HCC) ([facility]) Expected: 12/16/2021, Expires: 12/16/2022 Lipid panel Lab Routine Type 2 diabetes mellitus with hyperglycemia, without long-term current use of insulin ([facility]/HCC) ([facility]) Expected: 12/16/2021, Expires: 12/16/2022 Microalbumin, urine, random Lab Routine Type 2 diabetes mellitus with hyperglycemia, without long-term current use of insulin ([facility]) ([facility]) Expected: 12/16/2021, Expires: 12/16/2022 documented as of this encounter Procedures Procedure Name Priority Date/Time Associated Diagnosis Comments POCT HEMOGLOBIN A1C Routine 12/16/2021 1 0:05 AM CDT Type 2 diabetes mellitus with hyperglycemia, without long-term current use of insulin ([facility]) ([facility]) documented in this encounter Results * (ABNORMAL) POCT hemoglobin A1c (12/16/2021 10:05 AM CDT) Hemoglobin A1C, POC 8.0 Blood specimen (specimen) 12/16/2021 10:05 AM CDT Nathan Martinez MD POINT OF CARE TEST ORDERAB LES Final Result documented in this encounter Visit Diagnoses Diagnosis Type 2 diabetes mellitus with hyperglycemia, without long-term current use of insulin ([facility])- Primary Attention deficit disorder (ADD) without hyperactivity Major depression in remission ([facility]) Major depressive disorder, single episode in [...] documented as of this encounter Care Teams Erp Programmer Relationship Specialty Start Date End Date Nathan Martinez MD PCP - General Family Practice 09/10/20 Monique Garcia MD Referring Physician Gastroenterology 06/11/20 Monique Garcia MD Referring Physician Gastroenterology 06/11/20 documented as of this encounter
--- OUTSIDE RECORDS SUMMARY | 2024-09-03 12:19 | XMS_ITS | Encounter Summary ---
Author Organization [facility] Address [address] [address] Care Team Providers Care Linter Operator Name Role Phone Monique Garcia MD Unavailable Monique Garcia MD Unavailable [phone] Nathan Martinez MD Primary Care Provider [phone] Reason for Referral * Diagnostic Imaging (Routine) - Closed Specialty Diagnoses / Procedures Referred By Hugo dang Referred To Contact Diagnoses Shortness of breath Cough Bronchospasm Procedures XR Chest Pa Lateral 2 Views Nathan Martinez MD Phone: tel: fax: [address] [address] Referral ID Status Reason Start Date Expiration Date Visits Re quested Visits Authorized [id number] Closed 11/12/2020 12/12/2021 1 1 Reason for [...] Encounter Details Date Type Department Care Team ([facility] Contact Info) Description 11/12/2020 10:00 AM CDT Office Visit [facility] Primary Care [address] [place] [address] Nathan Martinez MD [address] [place] [address] Type 2 diabetes mellitus with hyperglycemia, without [...] without long-term current use of insulin ([facility]) (E11.65) (Primary) Assessment & Plan: A1c today. Random blood sugar today. Major depression in remission ([facility]) (F32.5) Assessment & Plan: Continue Lexapro at [...] CDT Associated Problem(s): Major depression in remission ([facility]) Continue Lexapro at same dosage. Well controlled. * Assessment & Plan Note - Nathan Martinez MD - 11/09/2020 1:42 PM CDT Associated Problem(s): Type 2 diabetes mellitus with hyperglycemia, without long-term current use of insulin ([facility]) A1c today. Random blood sugar today. documented in this encounter Plan of Treatment Not on file documented as of this encounter Procedures Procedure Name Priority Date/Time Associated Diagnosis Comments POCT GLUCOSE Routine 11/12/2020 10:06 AM CDT Type 2 diabetes mellitus with hyperglycemia, without long-term current use of insulin ([facility]) XR CHEST PA LATERAL 2 VIEWS Schedule [...] documented as of this encounter Care Teams Linter Operator Relationship Specialty Start Date End Date Nathan Martinez MD PCP - General Family Practice 09/10/20 Monique Garcia MD Referring Physician Gastroenterology 06/11/20 Monique Garcia MD Referring Physician Gastroenterology 06/11/20 documented as of this encounter
--- OUTSIDE RECORDS SUMMARY | 2024-09-03 12:19 | XMS_ITS | Encounter Summary ---
Author Organization [facility] Healthcare Address [address] [place] [address] Care Team Providers Care Advanced Practice Provider Name Role Phone Monique Garcia MD Unavailable [phone] Monique Garcia MD Unavailable [phone] Nathan Martinez MD Primary Care Provider [phone] Reason for Referral * MRI/CAT/PET Scan (Routine) - Closed Specialty Diagnoses / Procedures Referred By Hugo dang Referred To Contact Radiology Diagnoses Personal history of other diseases of the digestive system Procedures MRI Abdomen Pelvis Enterography W WO Contrast Monique Garcia MD [address] [place] [address] Phone: tel: fax: [address] [address] Referral ID Status Reason Start Date Expiration Date Visits Re quested Visits Authorized [id number] Closed 10/11/2021 11/10/2022 1 1 Reason for Visit * MRI/CAT/PET Scan (Routine) - Closed Specialty Diagnoses / Procedures Referred By Hugo dang Referred To Contact Radiology Diagnoses Personal history of other diseases of the digestive system Procedures MRI Abdomen Pelvis Enterography W WO Contrast Monique Garcia MD [address] [address] Phone: tel: fax: [address] [address] Referral ID Status Reason Start Date Expiration Date Visits Re quested Visits Authorized [id number] Closed 10/11/2021 11/10/2022 1 1 Encounter Details Date Type Department Care Team (Latest Contact Info) Description 11/15/2021 7:15 AM CDT - 11/15/2021 11:59 PM CDT Hospital Encounter [address] [address] Personal history of other diseases of the [...] D: ??11/15/2021 10:40 AM T: Report ID: [id number] Reading Location: ??[id number] Procedure Note Rufino Petty MD - 11/15/2021 [...] by Rufino Petty M.D. T: Report ID: [id number] Reading Location: [place] [address] Monique Garcia MD IMG MRI PROCEDURES Final Result * POCT creatinine for contrast evaluation (11/15/2021 9:01 AM CDT) Creatinine POC 1.00 0.80 - 1.30 mg/dL [facility] Blood 11/15/2021 9:01 AM CDT 11/15/2021 9:01 AM CDT Monique Garcia MD POINT OF CARE TEST ORDERA BLES Final Result [facility] [address] [facility] [place] [address] documented in this encounter Visit Diagnoses Diagnosis [...] 11/15/2021 documented in this encounter Care Teams Advanced Practice Provider Relationship Specialty Start Date End Date Nathan Martinez MD PCP - General Family Practice 09/10/20 Monique Garcia MD Referring Physician Gastroenterology 06/11/20 Monique Garcia MD Referring Physician Gastroenterology 06/11/20 documented as of this encounter
--- OUTSIDE RECORDS SUMMARY | 2024-09-03 12:19 | XMS_ITS | Encounter Summary ---
Author Organization [facility] Address [address] [address] Care Team Providers Care Suspect Artist Supervisor Name Role Phone Monique Garcia MD Unavailable [phone] Monique Garcia MD Unavailable [phone] Nathan Martinez MD Primary Care Provider [phone] Reason for Visit * Reason Comments Abdominal [...] st Contact Info) Description 09/02/2021 8:00 AM DIMENSIONAL ENGINEER Office Visit [facility] Primary Care [address] [place] [address] Nathan Martinez MD [address] [place] [address] Chronic abdominal pain (Primary Dx); Type 2 [...] Comments Blood Pressure 134/80 09/02/2021 8:22 AM DIMENSIONAL ENGINEER Pulse 80 09/02/2021 8:22 AM DIMENSIONAL ENGINEER Temperature 35.8 ??C (96.4 ??F) 09/02/2021 8:22 AM CS T Respiratory Rate 20 09/02/2021 8:22 AM DIMENSIONAL ENGINEER Oxygen Saturation 98% 09/02/2021 8:22 AM DIMENSIONAL ENGINEER Inhaled Oxygen Concentration - - Weight 96.1 kg (211 lb 12.8 oz) 09/02/2021 8:22 AM DIMENSIONAL ENGINEER Height 176.5 cm (5' 9.5 ) 09/02/2021 8:22 AM DIMENSIONAL ENGINEER Body Mass Index 30.83 09/02/2021 8:22 AM DIMENSIONAL ENGINEER documented in this encounter Ordered Prescriptions Prescription [...] hyperglycemia, without long-term current use of insulin ([facility]) ([facility]) (E11.65) Assessment & Plan: A1c today. Psychophysiologic insomnia (F51.04) Assessment & Plan: Continue trazodone at same dosage. Well controlled. Major depression in remission ([facility]) (F32.5) Assessment & Plan: Continue Lexapro at [...] 12 (twelve) hours as needed for cramping NSIONAL ENGINEER NSIONAL ENGINEER documented in this encounter Miscellaneous Notes * Assessment & Plan Note - Nathan Martinez MD - 09/02/2021 9:00 AM DIMENSIONAL ENGINEER Associated Problem(s): Neoplasm of uncertain behavior of adnexa of skin Refer to Dermatology NSIONAL ENGINEER * Assessment & Plan Note - Nathan Martinez MD - 09/02/2021 8:59 AM DIMENSIONAL ENGINEER Associated Problem(s): Chronic abdominal pain Previous pain is similar to this pain and is relieved by bowel movements without any blood in the stool or melanotic stools. Most suggestive of irritable bowel syndrome will try Levbid. Caution side effects 11. Re-evaluate few weeks for to GI. KUB NSIONAL ENGINEER * Assessment & Plan Note - Nathan Martinez MD - 09/02/2021 8:58 AM DIMENSIONAL ENGINEER Associated Problem(s): Right lower quadrant pain Pain most recently is in the right lower quadrant but can be and other areas and is similar to the previous pain he had in May-relieved by bowel movements. Alternating constipation and diarrhea but mostly diarrhea will try Levbid will get KUB of the abdomen. Will refer to GI-history of Ludmila fundoplication NSIONAL ENGINEER * Assessment & Plan Note - Nathan Martinez MD - 08/30/2021 7:26 AM DIMENSIONAL ENGINEER Associated Problem(s): ADD (attention deficit disorder) Allow modafinil as no evidence of toxicity and evidence of benefit NSIONAL ENGINEER * Assessment & Plan Note - Nathan Martinez MD - 08/30/2021 7:26 AM DIMENSIONAL ENGINEER Associated Problem(s): Major depression in remission (HCC) Continue Lexapro at same dosage. Well controlled. NSIONAL ENGINEER * Assessment & Plan Note - Nathan Martinez MD - 08/30/2021 7:26 AM DIMENSIONAL ENGINEER Associated Problem(s): Psychophysiologic insomnia Continue trazodone at same dosage. Well controlled. NSIONAL ENGINEER * Assessment & Plan Note - Nathan Martinez MD - 08/30/2021 7:25 AM DIMENSIONAL ENGINEER Associated Problem(s): Type 2 diabetes mellitus with hyperglycemia, without long-term current use of insulin (HCC) A1c today. NSIONAL ENGINEER documented in this encounter Plan of Treatment [...] documented as of this encounter Care Teams Suspect Artist Supervisor Relationship Specialty Start Date End Date Nathan Martinez MD PCP - General Family Practice 09/10/20 Monique Garcia MD Referring Physician Gastroenterology 06/11/20 Monique Garcia MD Referring Physician Gastroenterology 06/11/20 documented as of this encounter
--- OUTSIDE RECORDS SUMMARY | 2024-09-03 12:19 | XMS_ITS | Encounter Summary ---
Author Organization [facility] Healthcare Address [address] [place] [address] Care Team Providers Care Esthetics Instructor Name Role Phone Monique Garcia MD Unavailable [phone] Monique Garcia MD Unavailable [phone] Nathan Martinez MD Primary Care Provider [phone] Reason for Visit * Reason Comments Abdominal Pain Encounter Details Date Type Department Care Team (Late st Contact Info) Description 06/17/2021 12:37 PM CDT - 06/17/2021 3:[address] [facility] Emergency Department [address] [place] [address] Abdominal pain (Primary Dx); Fatty liver; [...] PM CDT Close primary care follow-up with doughnut maker known to you * Attachments The following attachments cannot be sent through Care Everywhere. * Acute Abdominal Pain (AfterCare(R) Instructions(ER/ED)) (Puerto Rican) documented in this encounter Medications at Time [...] drank gatorade this morning. * Carleen Conroy, CUSTOMER CONSULTANT - 06/17/2021 11:47 AM CDT HPI Chief [...] testing for transplant patient?->No Interpretive Data The [employer] FilmArray Respiratory Panel (RP2.1) assay is a [...] assay has FDA clearance for testing of CUSTOMER CONSULTANT swabs. The performance characteristics of this assay have been determined by [facility]. Current interpretive data was last revised on 2021. Interpretive Data The [employer] FilmArray Respiratory Panel (RP2.1) assay is a [...] assay has FDA clearance for testing of CUSTOMER CONSULTANT swabs. The performance characteristics of this assay have been determined by [facility]. Current interpretive data was last revised [...] M.D. ?? RB: CIPRIANO ?? Report ID: [id number] Reading Location: [id number] Narrative & Impression ?? EXAM DESCRIPTION: XR [...] Marino D.O. ?? : ?? Report ID: [id number] Reading Location: [id number] BP 137/89 (BP Location: Right arm, Patient Position: Sitting) Pulse 78 Temp 36.6 ??C (97.9 ??F)(Temporal) Resp 18 Ht 180.3 cm (5' 11 ) Wt 94.7 kg (208 lb 12.4 oz) SpO2 97% BMI 29.12 kg/m?? [facility] ED Course as of Jun 18 853 Time: 06/17 134 Comment: Antiemetic added to plan of care By: Carleen Conroy NP Time: 06/17 1420 Comment: Pain medication added to plan of care By: Carleen Conroy NP Time: 06/17 7872 Comment: I followed up with patient in [...] NP This examination was transcribed using the [employer] voice recognition system without human police dispatcher. In an effort to expedite patient care, this report has not been adjusted for typographical, grammatical, and syntax by a trained medical insurance clerk. Clinical Impression: Abdominal pain Fatty liver Cough [...] PM T: ??06/17/2021 2:35 PM Report ID: [id number] Reading Location: ??[id number] Procedure Note Brodie Thomas MD - 06/17/2021 [...] Brodie Thomas M.D. RB: CIPRIANO Report ID: [id number] Reading Location: [place] [address] Carleen Conroy CUSTOMER CONSULTANT IMG CT PROCEDURES Final Resu lt * Respiratory pathogen panel Nasopharyngeal (06/17/2021 12:58 PM CDT) Influenza A RNA Not Detected Not Detected [facility] Comment:Testing performed by : [facility], [address] [facility] [place] [address] Influenza B RNA Not Detected Not Detected TERESA Comment:Testing performed by : [facility], [address] [place]., [address] RSV RNA Not Detected Not Detected TERESA Comment:Testing performed by : [facility], [address] [facility] [place]., [address] COVID-19 RNA Not Detected Not Detected TERESA Comment:Testing performed by : [facility], [address] [facility] [place]., [address] Coronavirus 229E RNA Not Detected Not Detected TERESA Comment:Testing performed by : [facility], [address] [facility] [place]., [address] Coronavirus HKU1 RNA Not Detected Not Detected TERESA Comment:Testing performed by : [facility], [address] [place]., [address] Coronavirus NL63 RNA Not Detected Not Detected CERNER Comment:Testing performed by : [facility], [address] [facility], [address] Coronavirus OC43 RNA Not Detected Not Detected CERNER Comment:Testing performed by : [facility], [address] [facility], [address] Adenovirus DNA Not Detected Not Detected CERNER Comment:Testing performed by : [facility], [address] [facility], [address] Metapneumovirus RNA Not Detected Not Detected CERNER Comment:Testing performed by : [facility], [address] [facility], [address] Rhinovirus/Enterov irus RNA Not Detected Not Detected CERNER Comment:Testing performed by : [facility], [address] [facility], [address] Parainfluenza 1 RNA Not Detected Not Detected CERNER Comment:Testing performed by : [facility], [address] [place]., [address] Parainfluenza 2 RNA Not Detected Not Detected CERNER Comment:Testing performed by : [facility], [address] [place]., [address] Parainfluenza 3 RNA Not Detected Not Detected CERNER Comment:Testing performed by : [facility], [address] [place]., [address] Parainfluenza 4 RNA Not Detected Not Detected CERNER Comment:Testing performed by : [facility], [address] [facility], [address] B. pertussis DNA Not Detected Not Detected CERLEEANNE Comment:Testing performed by : [facility], [address] [place]., [address] B. parapertussis DNA Not Detected Not Detected CERNER Comment:Testing performed by : [facility], [address] [place]., [address] C. pneumoniae DNA Not Detected Not Detected TREESA RAYMUNDO Comment:Testing performed by : [facility], [address] [place]., [address] M. pneumoniae DNA Not Detected Not Detected TERESA RAYMUNDO Comment:Testing performed by : [facility], [address] [place]., [address] Nasopharyngeal 06/17/2021 12 :58 PM CDT 06/17/2021 [...] testing for transplant patient?->No ??Interpretive Data The [employer] FilmArray Respiratory Panel (RP2.1) assay is a [...] assay has FDA clearance for testing of CUSTOMER CONSULTANT swabs. ??The performance characteristics of this assay have been determined by [facility]. Current interpretive data was last revised on 2021. ??Interpretive Data The [employer] FilmArray Respiratory Panel (RP2.1) assay is a [...] assay has FDA clearance for testing of CUSTOMER CONSULTANT swabs. ??The performance characteristics of this assay have been determined by [facility]. Current interpretive data was last revised on 2021. Carleen Conroy CUSTOMER CONSULTANT LAB MICROBIOLOGY - GENERAL O RDERABLES Final Result TER[facility]A [address] [facility] Department [place] [address] * XR Chest 1 Vw [...] PM T: ??06/17/2021 12:45 PM Report ID: [id number] Reading Location: ??[id number] Procedure Note Kaleb Marino, DO - 06/17/2021 [...] by Kaleb Marino D.O. : Report ID: [id number] Reading Location: [id number] Carleen Conroy CUSTOMER CONSULTANT IMG XR PROCEDURES Final Resu lt * Sepsis Lactate w/ Reflex (06/17/2021 12:02 PM CDT) Sepsis Lactate 1.5 0.7 - 2.0 mmol/L TERESA RAYMUNDO Comment:Testing performed by : [facility], [address] [place] [address]., [address] Blood 06/17/2021 12:0 2 PM CDT 06/17/2021 12:08 PM CDT us Carleen Conroy CUSTOMER CONSULTANT LAB BLOOD ORDERABLES Final R esult Performing Organization Address City/[facility]/ZIP Co de Phone Number TERESA [address] [facility] [place] [address] * eGFR (06/17/2021 11:58 AM CDT) eGFR [...] was last reviewed 2020 Testing performed by: [facility], [address] [place] [address]., [address] Blood 06/17/2021 11:5 8 AM CDT 06/17/2021 12:08 PM CDT Carleen Conroy CUSTOMER CONSULTANT LAB BLOOD ORDERABLES Final R esult Performing Organization Address City/[facility]/ZIP Co de Phone Number TERESA [address] [facility] [place] [address] * Differential, auto (06/17/2021 11:58 AM CDT) Neutrophil abs 3.6 1.7 - 6.5 K/cumm TERESA Comment:Testing performed by : [address] [address] Imm gran abs 0.0 0.0 - 0.1 K/cumm TERESA Comment:Testing performed by : [address] [address] Lymphocyte abs 1.8 0.8 - 3.3 K/cumm TERESA Comment:Testing performed by : [address] [address] Monocyte abs 0.4 0.2 - 0.8 K/cumm TERESA Comment:Testing performed by : [address] [address] Eosinophil abs 0.1 0.0 - 0.5 K/cumm TERESA Comment:Testing performed by : [address] [address] Basophil abs 0.0 0.0 - 0.1 K/cumm TERESA Comment:Testing performed by : [address] [address] Neutrophil pct 61.4 % [facility] Comment: Interpretive Data Percent cell count reference ranges are not reported, since discordance with absolute values may lead to misinterpretation of CBC data. Current Interpretive Data was last revised on 2017. Testing performed by: [address] [address] Imm gran pct 0.2 % [facility] Comment: Interpretive Data Percent cell count reference ranges are not reported, since discordance with absolute values may lead to misinterpretation of CBC data. Current Interpretive Data was last revised on 2017. Testing performed by: [address] [address] Lymphocyte pct 30.1 % [facility] Comment: Interpretive Data Percent cell count reference ranges are not reported, since discordance with absolute values may lead to misinterpretation of CBC data. Current Interpretive Data was last revised on 2017. Testing performed by: [address] [place] [address] Monocyte pct 6.3 % TERESA Comment: Interpretive Data Percent cell count reference ranges are not reported, since discordance with absolute values may lead to misinterpretation of CBC data. Current Interpretive Data was last revised on 2017. Testing performed by: [address] [address] Eosinophil pct 1.5 % TERESA Comment: Interpretive Data Percent cell count reference ranges are not reported, since discordance with absolute values may lead to misinterpretation of CBC data. Current Interpretive Data was last revised on 2017. Testing performed by: [address] [address] Basophil pct 0.5 % TERESA Comment: Interpretive Data Percent cell count reference ranges are not reported, since discordance with absolute values may lead to misinterpretation of CBC data. Current Interpretive Data was last revised on 2017. Testing performed by: [address] [address] Blood 06/17/2021 11:5 8 AM CDT 06/17/2021 12:08 PM CDT Carleen Conroy CUSTOMER CONSULTANT LAB BLOOD ORDERABLES Final R esult TERESA [address] [facility] Department of Laboratories [place], [place] [id number] * (ABNORMAL) CBC with auto differential (06/17/2021 11:58 AM CDT) WBC 5.9 3.8 - 9.9 K/cumm TERESA RAYMUNDO Comment:Testing performed by : [address] [address] Hgb 15.2 13.0 - 17.5 g/dL TERESA RAYMUNDO Comment:Testing performed by : [address] [address] Hct 46.1 38.9 - 50.3 % TERESA RAYMUNDO Comment:Testing performed by : [address] [address] Plt 257 150 - 400 K/cumm TERESA Comment:Testing performed by : [address] [address] MPV 9.3 9.1 - 12.3 fL TERESA Comment:Testing performed by : [address] [address] RBC 5.82(H) 4.30 - 5.80 M/cumm TERESA Comment:Testing performed by : [address], [address] MCV 79.2(L) 81.3 - 96.4 fL TERESA Comment:Testing performed by : [address], [address] MCH 26.1(L) 27.1 - 33.3 pg TERESA Comment:Testing performed by : [address], [address] MCHC 33.0 32.3 - 35.7 g/dL TERESA Comment:Testing performed by : [address], [address] RDW CV 14.2 11.1 - 14.9 % TERESA Comment:Testing performed by : [address], [address] RDW SD 40.4 35.7 - 48.1 fL TERESA Comment:Testing performed by : [address], [address] NRBC abs 0.00 0.00 - 0.01 K/cumm TERESA Comment:Testing performed by : [address], [address] Blood 06/17/2021 11:5 8 AM CDT 06/17/2021 12:08 PM CDT Carleen Conroy CUSTOMER CONSULTANT LAB BLOOD ORDERABLES Final R esult TERESA [address] [facility] Department [place] [address] * (ABNORMAL) Comprehensive metabolic panel (06/17/2021 11:58 AM CDT) Sodium 136 135 - 145 mmol/L [facility] Comment:Testing performed by : [address] [address] Potassium, pl 4.7 3.3 - 4.9 mmol/L [facility] Comment: HEMOLYZED: Hemolysis interferes with the above test. Testing performed by: [address] [address] Chloride 97 97 - 110 mmol/L [facility] Comment:Testing performed by : [address], [place]., [address] CO2 27 22 - 32 mmol/L [facility] Comment:Testing performed by : [address] [address] Anion gap 12 2 - 15 mmol/L [facility] Comment:Testing performed by : [address] [address] BUN 12 8 - 25 mg/dL [facility] Comment:Testing performed by : [address] [address] Creatinine 0.90 0.80 - 1.30 mg/dL [facility] Comment:Testing performed by : [address] [address] Glucose 214(H) 70 - 199 mg/dL [facility] Comment: Interpretive Data Fasting glucose >/= 126 [...] was last revised 2017. Testing performed by: [address] [address] Calcium 9.6 8.5 - 10.3 mg/dL [facility] Comment:Testing performed by : [address] [address] Bilirubin, total 0.3 0.1 - 1.2 mg/dL TERESA Comment:Testing performed by : [address] [address] Protein, pl 7.9 6.5 - 8.5 g/dL TERESA Comment:Testing performed by : [address] [address] Albumin 4.8 3.5 - 5.0 g/dL TERESA Comment:Testing performed by : [address] [address] Alk phos 90 40 - 130 Units/L TERESA Comment:Testing performed by : [address] [address] ALT 32 7 - 55 Units/L TERESA Comment: HEMOLYZED: Hemolysis interferes with the above test. Testing performed by: [address] [address] AST 26 10 - 50 Units/L TERESA Comment: HEMOLYZED: Hemolysis interferes with the above test. Testing performed by: [address] [address] Blood 06/17/2021 11:5 8 AM CDT 06/17/2021 12:08 PM CDT Carleen Conroy CUSTOMER CONSULTANT LAB BLOOD ORDERABLES Final R ult Performing Organization Address [facility] Co de Phone Number [address] Department [place] [address] * Lipase (06/17/2021 11:58 AM CDT) Lipase 33 10 - 99 Units/L TERESA Comment:Testing performed by : [address] [address] Blood 06/17/2021 11:5 8 AM CDT 06/17/2021 12:08 PM CDT Carleen Conroy CUSTOMER CONSULTANT LAB BLOOD ORDERABLES Final R esult [place] [address] [facility] Department [place] [address] documented in this encounter Visit Diagnoses Diagnosis [...] documented as of this encounter Care Teams Esthetics Instructor Relationship Specialty Start Date End Date Nathan Martinez MD PCP - General Family Practice 09/10/20 Monique Garcia MD Referring Physician Gastroenterology 06/11/20 Monique Garcia MD Referring Physician Gastroenterology 06/11/20 documented as of this encounter
--- OUTSIDE RECORDS SUMMARY | 2024-09-03 12:19 | XMS_ITS | Encounter Summary ---
Author Organization [facility] Address [address] [facility] [address] [address] Care Team Providers Care Paste Up Worker Name Role Phone Monique Garcia MD Unavailable [phone] Monique Garcia MD Unavailable [phone] Nathan Martinez MD Primary Care Provider [phone] Encounter Details Date Type Department Care Team (Late st Contact Info) Description 12/06/2021 Orders Only [facility] Health Information Management [address] [place] [address] Scanning, Provider Social History Tobacco Use Types [...] on filedocumented in this encounter Care Teams Paste Up Worker Relationship Specialty Start Date End Date Nathan Martinez MD PCP - General Family Practice 09/10/20 Monique Garcia MD Referring Physician Gastroenterology 06/11/20 Monique Garcia MD Referring Physician Gastroenterology 06/11/20 documented as of this encounter
--- OUTSIDE RECORDS SUMMARY | 2024-09-03 12:19 | XMS_ITS | Encounter Summary ---
Author Organization [facility] Address [address] [facility] [address] [place] [address] Care Team Providers Care Copy Manager Name Role Phone Monique Garcia MD Unavailable [phone] Monique Garcia MD Unavailable [phone] Nathan Martinez MD Primary Care Provider [phone] Encounter Details Date Type Department Care Team (Late st Contact Info) Description 03/26/2022 Orders Only [facility] Health Information Management [address] [place] [address] Scanning, Provider Social History Tobacco Use Types [...] on filedocumented in this encounter Care Teams Copy Manager Relationship Specialty Start Date End Date Nathan Martinez MD PCP - General Family Practice 09/10/20 Monique Garcia MD Referring Physician Gastroenterology 06/11/20 Monique Garcia MD Referring Physician Gastroenterology 06/11/20 documented as of this encounter
--- OUTSIDE RECORDS SUMMARY | 2024-09-03 12:19 | XMS_ITS | Encounter Summary ---
Author Organization [facility] Address [address] [facility] [address] [place] [address] Care Team Providers Care Hazardous Materials Waste Technician Name Role Phone Monique Garcia MD Unavailable [phone] Monique Garcia MD Unavailable [phone] Nathan Martinez MD Primary Care Provider [phone] Encounter Details Date Type Department Care Team (Late st Contact Info) Description 01/11/2021 Orders Only [facility] Health Information Management [address] [place] [address] Scanning, Provider Social History Tobacco Use Types [...] on filedocumented in this encounter Care Teams Hazardous Materials Waste Technician Relationship Specialty Start Date End Date Nathna Martinez MD PCP - General Family Practice 09/10/20 Monique Garcia MD Referring Physician Gastroenterology 06/11/20 Monique Garcia MD Referring Physician Gastroenterology 06/11/20 documented as of this encounter
--- OUTSIDE RECORDS SUMMARY | 2024-09-03 12:19 | XMS_ITS | Encounter Summary ---
Author Organization [facility] Address [address] [address] Care Team Providers Care Loan Broker Name Role Phone Monique Garcia MD Unavailable [phone] Monique Garcia MD Unavailable [phone] Nathan Martinez MD Primary Care Provider [phone] Reason for Visit * Reason Comments Follow-up [...] Description 06/17/2021 10:00 AM CDT Office Visit [facility] Primary Care [address] [place] [address] Nathan Martinez MD [address] [place], [place] [id number] Type 2 diabetes mellitus with hyperglycemia, without [...] hyperglycemia, without long-term current use of insulin ([facility]) ([facility]) (E11.65) (Primary) Assessment & Plan: A1c today. [...] controlled. Major depression in remission ([facility]) (F32.5) Assessment & Plan: Continue Lexapro at [...] hyperglycemia, without long-term current use of insulin ([facility]) ([facility]) Expected: 06/17/2021, Expires: 06/17/2022 Albumin Creatinine Ratio, Urine Lab Routine Type 2 diabetes mellitus with hyperglycemia, without long-term current use of insulin ([facility]) ([facility]) Expected: 06/17/2021, Expires: 06/17/2022 documented as of [...] hyperglycemia, without long-term current use of insulin ([facility]) ([facility]) documented in this encounter Results * Albumin [...] URINE ORDERABLES Final Result Performing Organization Address [facility] de Phone Number [facility] [address] [place] [address] * (ABNORMAL) Cholesterol, LDL, direct (06/17/2021 10:44 AM CDT) LDL, direct 120(H) <100 mg/dL [facility] Comment: Greatly elevated Triglycerides values (>1200 [...] BLOOD ORDERABLES Final Result Performing Organization Address [facility] de Phone Number [facility] [address] [place] [address] * (ABNORMAL) Comprehensive metabolic panel (06/17/2021 10:44 AM CDT) Glucose 214(H) 65 - 99 mg/dL [facility] Comment: ? Fasting reference interval For someone without known diabetes, a glucose value >125 mg/dL indicates that they may have diabetes and this should be confirmed with a follow-up test. BUN 13 7 - 25 mg/dL [facility] Creatinine 1.00 0.70 - 1.33 mg/dL [facility] Comment: For patients >49 years of age, the reference limit for Creatinine is approximately 13% higher for people identified as -Salvadorean. eGFR NON-AFR. ERITREAN 86 > OR = 60 mL/min/1 .73m2 [facility] EGFR 100 > OR = 60 mL/min/1 .73m2 [facility] BUN/creat ratio NOT APPLICABLE 6 - 22 (calc) [facility] Sodium 136 135 - 146 mmol/L [facility] Potassium, pl 4.2 3.5 - 5.3 mmol/L [facility] Chloride 98 98 - 110 mmol/L [facility] CO2 31 20 - 32 mmol/L [facility] Calcium 9.5 8.6 - 10.3 mg/dL [facility] Protein, sr 7.0 6.1 - 8.1 g/dL [facility] Albumin 4.6 3.6 - 5.1 g/dL [facility] GLOBULIN 2.4 1.9 - 3.7 g/dL (calc) [facility] Alb/glob ratio 1.9 1.0 - 2.5 (calc) [facility] Bilirubin, total 0.4 0.2 - 1.2 mg/dL [facility] Alk phos 76 35 - 144 U/L [facility] AST 16 10 - 35 U/L [facility] ALT (SGPT) 25 9 - 46 U/L [facility] Blood specimen (specimen) 06/17/2021 10:44 AM CDT 06/17/2021 10:49 AM CDT Narrative [facility] - 06/18/2021 12:41 PM CDT FASTING:YES FASTING: YES us Nathan Martinez MD LAB BLOOD ORDERABLES Final Result [facility] [address] [place] [address] * (ABNORMAL) CBC with auto differential (06/17/2021 [...] MD LAB BLOOD ORDERABLES Final Result [facility] [address] [place] [address] * (ABNORMAL) POCT hemoglobin A1c (06/17/2021 10:17 [...] documented as of this encounter Care Teams Loan Broker Relationship Specialty Start Date End Date Nathan Martinez MD PCP - General Family Practice 09/10/20 Monique Garcia MD Referring Physician Gastroenterology 06/11/20 Monique Garcia MD Referring Physician Gastroenterology 06/11/20 documented as of this encounter
--- OUTSIDE RECORDS SUMMARY | 2024-09-03 12:19 | XMS_ITS | Encounter Summary ---
Author Organization [facility] Address [address] [facility] [address] [place] [address] Care Team Providers Care Theater Teacher Name Role Phone Monique Garcia MD Unavailable [phone] Monique Garcia MD Unavailable [phone] Nathan Martinez MD Primary Care Provider [phone] Encounter Details Date Type Department Care Team (Late st Contact Info) Description 12/16/2020 Orders Only [facility] Information Management [address] [place] [address] Scanning, Provider Social History Tobacco Use Types [...] documented as of this encounter Care Teams Theater Teacher Relationship Specialty Start Date End Date Nathan Martinez MD PCP - General Family Practice 09/10/20 Monique Garcia MD Referring Physician Gastroenterology 06/11/20 Monique Garcia MD Referring Physician Gastroenterology 06/11/20 documented as of this encounter
--- OUTSIDE RECORDS SUMMARY | 2024-09-03 12:19 | XMS_ITS | Encounter Summary ---
Author Organization [facility] Medical Group Address [address] [facility] [address] [place] [address] Care Team Providers Care Or Nurse Manager Name Role Phone Monique Garcia MD Unavailable [phone] Monique Garcia MD Unavailable [phone] Nathan Martinez MD Primary Care Provider [phone] Encounter Details Date Type Department Care Team (Late st Contact Info) Description 12/27/2020 Orders Only [facility] [place] Health Information Management [address] [place] [address] Scanning, Provider Social History Tobacco Use Types [...] documented as of this encounter Care Teams Or Nurse Manager Relationship Specialty Start Date End Date Nathan Martinez MD PCP - General Family Practice 09/10/20 Monique Garcia MD Referring Physician Gastroenterology 06/11/20 Monique Garcia MD Referring Physician Gastroenterology 06/11/20 documented as of this encounter
--- OUTSIDE RECORDS SUMMARY | 2024-09-03 12:19 | XMS_ITS | Encounter Summary ---
Author Organization [facility] Medical Group Address [address] [address] Care Team Providers Care Blanket Winder Operator Name Role Phone Monique Garcia MD Unavailable [phone] Monique Garica MD Unavailable [phone] Nathan Martinez MD Primary Care Provider [phone] Reason for Visit * Reason Comments Follow-up 3 months ADD DM No n ew complaints Encounter Details Date Type Department Care Team (Late st Contact Info) Description 02/11/2021 10:00 AM CDT Office Visit [facility] Medical [facility] [address] [place] [address] Nathan Martinez MD [address] [place] [address] Type 2 diabetes mellitus with [...] documented in this encounter Progress Notes * Nathna Martinez MD - 02/11/2021 10:00 AM CDT [...] hyperglycemia, without long-term current use of insulin ([facility]) (E11.65) (Primary) Assessment & Plan: A1c is [...] dosage. Well controlled. Major depression in remission ([facility]) (F32.5) Assessment & Plan: Continue [...] long-term current use of insulin ([facility]) A1c is still over 8. Discussed and recommend additional medication with 1 option being increasing dose of metformin and another option adding a new additional medication. We will increase metformin to 1000 mg twice a day * Assessment & Plan Note - Nathan Martinez MD - 02/08/2021 10:33 AM CDT Associated Problem(s): Major depression in remission ([facility]) Continue Lexapro at same dosage. Well controlled. [...] hyperglycemia, without long-term current use of insulin ([facility]) documented in this encounter Results [...] documented as of this encounter Care Teams Blanket Winder Operator Relationship Specialty Start Date End Date Nathan Martinez MD PCP - General Family Practice 09/10/20 Monique Garcia MD Referring Physician Gastroenterology 06/11/20 Monique Garcia MD Referring Physician Gastroenterology 06/11/20 documented as of this encounter
--- OUTSIDE RECORDS SUMMARY | 2024-09-03 12:19 | XMS_ITS | Encounter Summary ---
Author Organization [facility] Medical Group Address [address] [facility] [address] [place] [address] Care Team Providers Care Underground Mine Superintendent Name Role Phone Monique Garcia MD Unavailable [phone] Monique Garcia MD Unavailable [phone] Nathan Martinez MD Primary Care Provider [phone] Encounter Details Date Type Department Care Team (Late st Contact Info) Description 10/16/2021 Orders Only [facility] [place] Health Information Management [address] [place] [address] Scanning, Provider Social History Tobacco Use Types [...] Comments GI - RESULT 10/16/2021 9:45 PM OCCUPATIONAL WORK EXPERIENCE TEACHER documented in this encounter Results * GI - RESULT (10/16/2021 9:45 PM OCCUPATIONAL WORK EXPERIENCE TEACHER) Anatomical Region Laterality Modality Other us Provider Scanning Final Result documented in this encounter Visit Diagnoses Not on filedocumented in this encounter Care Teams Underground Mine Superintendent Relationship Specialty Start Date End Date Nathan Martinez MD PCP - General Family Practice 09/10/20 Monique Garcia MD Referring Physician Gastroenterology 06/11/20 Monique Garcia MD Referring Physician Gastroenterology 06/11/20 documented as of this encounter
--- OUTSIDE RECORDS SUMMARY | 2024-09-03 12:19 | XMS_ITS | Encounter Summary ---
Author Organization [facility] Healthcare Address [address] [place] [address] Care Team Providers Care Meat Cutter Apprentice Name Role Phone Monique Garcia MD Unavailable [phone] Monique Garcia MD Unavailable [phone] Nathan Martinez MD Primary Care Provider [phone] Reason for Visit * Reason Comments Ankle Pain Encounter Details Date Type Department Care Team (Late st Contact Info) Description 04/15/2022 1:39 PM CDT - 04/15/2022 4:59 PM CDT Emergency [facility] Emergency Department [address] [place] [address] Calcific tendonitis of left foot (Primary [...] Care Everywhere. * Achilles Tendinitis (AfterCare(R) Instructions(ER/ED)) (Nicaraguan) documented in this encounter Medications at Time [...] a boot. F/U with ortho TAYLER By: Stephy Garcia PA Clinical Impression: Calcific tendonitis of [...] patient to follow-up with: Gee Oates MD [facility] [address] [facility] [address] Schedule an appointment as soon as possible [...] 3:40 PM - Electronically signed by ??Zoran Beckhma D.O. AP: AP D: ??04/15/2022 3:40 PM T: ??04/15/2022 3:40 PM Report ID: [id number] Reading Location: ??[id number] Procedure Note Zoran Beckham DO - 04/15/2022 [...] Zoran Beckham D.O. AP: AP Report ID: [id number] Reading Location: [place] [address] Humberto Zaragoza MD IMG XR PROCEDURES Marilee l Result documented in this encounter Visit Diagnoses Diagnosis Calcific tendonitis of left foot- Primary Achilles tendinitis, left leg documented in this encounter Care Teams Meat Cutter Apprentice Relationship Specialty Start Date End Date Nathan Martinez MD PCP - General Family Practice 09/10/20 Monique Garcia MD Referring Physician Gastroenterology 06/11/20 Monique Garcia MD Referring Physician Gastroenterology 06/11/20 documented as of this encounter
--- OUTSIDE RECORDS SUMMARY | 2024-09-03 12:19 | XMS_ITS | Encounter Summary ---
Author Organization [facility] Medical Group Address [address] [address] Care Team Providers Care Environmental Protection Economist Name Role Phone Monique Garcia MD Unavailable [phone] Monique Garcia MD Unavailable [phone] Nathan Martinez MD Primary Care Provider [phone] Reason for Visit * Reason Onset Date Comments Insurance Referrals 12/31/2021 Encounter Details Date Type Department Care Team (Late st Contact Info) Description 12/31/2021 Telephone [facility] Medical [facility] Primary Care [address] [place] [address] Nathan Martinez MD [address] [place] [address] Insurance Referrals Social History Tobacco [...] CDT Received phone call from Virginie with [facility] requesting Melissa wing for upcoming appointment. Referral transmitted electronically. documented in this encounter Plan of Treatment Not on file documented as of this encounter Visit Diagnoses Diagnosis Encounter for screening colonoscopy- Primary documented in this encounter Care Teams Environmental Protection Economist Relationship Specialty Start Date End Date Nathan Martinez MD PCP - General Family Practice 09/10/20 Monique Garcia MD Referring Physician Gastroenterology 06/11/20 Monique Garcia MD Referring Physician Gastroenterology 06/11/20 documented as of this encounter
--- OUTSIDE RECORDS SUMMARY | 2024-09-03 12:19 | XMS_ITS | Encounter Summary ---
Author Organization [facility] Medical Group Address [address] [address] Care Team Providers Care Access Lead Name Role Phone Monique Garcia MD Unavailable [phone] Monique Garcia MD Unavailable [phone] Nathan Martinez MD Primary Care Provider [phone] Reason for Visit * Reason Comments Ankle Pain C/o left ankle pain over the past month. Pain is intermittent. Describes pain as achy. Pain is worse when climbing stairs. Ice improves pain. Has taken otc Aleve. Encounter Details Date Type Department Care Team (Late st Contact Info) Description 05/05/2022 8:45 AM CDT Office Visit [facility] Medical Group Primary Care [address] [place] [address] Nathan Martinez MD [address] [place] [address] Type 2 diabetes mellitus with hyperglycemia, without long-term current use of insulin ([facility]) (HCC) (Primary Dx); Major depression in remission [...] without long-term current use of insulin ([facility]) (HCC) (E11.65) (Primary) Assessment & Plan: A1c today . Continued improvement. Continue metformin/glipizide/Trulicity/Jardiance at same dosage.Well controlled. Orders: - POCT hemoglobin A1c - Albumin Creatinine Ratio, Urine; Future - Cholesterol, LDL, direct; Future Major depression in remission ([facility]) (F32.5) Assessment & Plan: Continue Lexapro at [...] without long-term current use of insulin (CMS/HCC) ([facility]) CHOLESTEROL, LDL, DIRECT Routine 05/05/2022 9:04 AM CDT Type 2 diabetes mellitus with hyperglycemia, without long-term current use of insulin (CMS/HCC) ([facility]) POCT HEMOGLOBIN A1C Routine 05/05/2022 8 :51 AM CDT Type 2 diabetes mellitus with hyperglycemia, without long-term current use of insulin ([facility]) ([facility]) documented in this encounter Results * (ABNORMAL) [...] LAB BLOOD ORDERABLES Final Result [facility] [address] [place] [address] * Albumin Creatinine Ratio, Urine (05/05/2022 9:04 [...] MD LAB URINE ORDERABLES Final Result [facility] [address] [place] [address] * (ABNORMAL) POCT hemoglobin A1c (05/05/2022 8:51 [...] documented as of this encounter Care Teams Access Lead Relationship Specialty Start Date End Date Nathan Martinez MD PCP - General Family Practice 09/10/20 Monique Garcia MD Referring Physician Gastroenterology 06/11/20 Monique Garcia MD Referring Physician Gastroenterology 06/11/20 documented as of this encounter
--- OUTSIDE RECORDS SUMMARY | 2024-09-03 12:19 | XMS_ITS | Encounter Summary ---
Author Organization [facility] Medical Group Address [address] [facility] [address] [place] [address] Care Team Providers Care Cloth Booker Name Role Phone Monique Garcia MD Unavailable [phone] Monique Garcia MD Unavailable [phone] Nathan Martinez MD Primary Care Provider [phone] Encounter Details Date Type Department Care Team (Late st Contact Info) Description 07/19/2021 Orders Only [facility] Health Information Management [address] [place] [address] Scanning, Provider Social History Tobacco Use Types [...] on filedocumented in this encounter Care Teams Cloth Booker Relationship Specialty Start Date End Date Nathan Martinez MD PCP - General Family Practice 09/10/20 Monique Garcia MD Referring Physician Gastroenterology 06/11/20 Monique Garcia MD Referring Physician Gastroenterology 06/11/20 documented as of this encounter
--- OUTSIDE RECORDS SUMMARY | 2024-09-03 12:19 | XMS_ITS | Encounter Summary ---
Author Organization [facility] Medical Group Address [address] [facility] [address] [place] [address] Care Team Providers Care Sales And Marketing Professional Name Role Phone Monique Garcia MD Unavailable [phone] Monique Garcia MD Unavailable [phone] Nathan Martinez MD Primary Care Provider [phone] Encounter Details Date Type Department Care Team (Late st Contact Info) Description 03/09/2022 Orders Only [facility] [place] Health Information Management [address] [place] [address] Scanning, Provider Social History Tobacco Use Types [...] filedocumented in this encounter Care Teams Sales And Marketing Professional Relationship Specialty Start Date End Date Nathan Martinez MD PCP - General Family Practice 09/10/20 Monique Garcia MD Referring Physician Gastroenterology 06/11/20 Monique Garcia MD Referring Physician Gastroenterology 06/11/20 documented as of this encounter
--- OUTSIDE RECORDS SUMMARY | 2024-09-03 12:19 | XMS_ITS | Encounter Summary ---
Author Organization [facility] Medical Group Address [address] [address] Care Team Providers Care Credit Report Checker Name Role Phone Monique Garcia MD Unavailable [phone] Monique Garcia MD Unavailable [phone] Nathan Martinez MD Primary Care Provider [phone] Reason for Visit * Reason Comments Follow-up Two week follow up r /t RLQ pain, abdominal pain. Levbid 0.375 mg BID prn started at last office visit. Reports little improvement with Levbid. Denies side effects. Continues to c/o constant RLQ pain. Encounter Details Date Type Department Care Team (Latest Contact Info) Description 09/16/2021 9:00 AM BUS REPAIR SUPERVISOR Office Visit [facility] Medical Group Primary Care [address] [place] [address] Nathan Martinez MD [address] [place], [place] [id number] Chronic abdominal pain (Primary Dx); Type 2 diabetes mellitus with hyperglycemia, without long-term current use of insulin ([facility]/HCC) (HCC); Attention deficit disorder (ADD) without [...] Comments Blood Pressure 118/78 09/16/2021 9:17 AM BUS REPAIR SUPERVISOR Pulse 82 09/16/2021 9:17 AM BUS REPAIR SUPERVISOR Temperature 35.7 ??C (96.3 ??F) 09/16/2021 9:17 AM CS T Respiratory Rate 20 09/16/2021 9:17 AM BUS REPAIR SUPERVISOR Oxygen Saturation 98% 09/16/2021 9:17 AM BUS REPAIR SUPERVISOR Inhaled Oxygen Concentration - - Weight 95.8 kg (211 lb 1.6 oz) 09/16/2021 9:17 A M BUS REPAIR SUPERVISOR Height 180.3 cm (5' 10.98 ) 09/16/2021 9:[address] Body Mass Index 29.46 09/16/2021 9:17 AM BUS REPAIR SUPERVISOR documented in this encounter Ordered Prescriptions Prescription [...] on metformin a 1000 mg b.i.d. and [id number] mg daily. Glipizide 10 mg had been [...] hyperglycemia, without long-term current use of insulin ([facility]) (HCC) (E11.65) Assessment & Plan: A1c today. [...] mg total) under the skinevery 7 days REPAIR SUPERVISOR documented in this encounter Miscellaneous Notes * Assessment & Plan Note - Nathan Martinez MD - 09/16/2021 9:44 AM BUS REPAIR SUPERVISOR Associated Problem(s): Chronic abdominal pain Try peppermint oil pill daily. Discontinue Levbid. Refer to GI. Needs colonoscopy. REPAIR SUPERVISOR * Assessment & Plan Note - Nathan Martinez MD - 09/13/2021 9:27 AM BUS REPAIR SUPERVISOR Associated Problem(s): ADD (attention deficit disorder) Continue modafinil at same dosage. Well controlled. No signs of toxicity and patient understands this is off-label treatment REPAIR SUPERVISOR * Assessment & Plan Note - Nathan Martinez MD - 09/13/2021 9:26 AM BUS REPAIR SUPERVISOR Associated Problem(s): Type 2 diabetes mellitus with hyperglycemia, without long-term current use of insulin ([facility]) A1c today. Diabetes needing better control. No hypoglycemic symptoms. Metformin, Jardiance, and glipizide daily. No significant improvement and will add Trulicity 0.75 mg weekly REPAIR SUPERVISOR REPAIR SUPERVISOR documented in this encounter Plan of Treatment Not on file documented as of this encounter Procedures Procedure Name Priority Date/Time Associated Diagnosis Comments POCT HEMOGLOBIN A1C Routine 09/16/2021 9 :30 AM BUS REPAIR SUPERVISOR Type 2 diabetes mellitus with hyperglycemia, without long-term current use of insulin ([facility]) ([facility]) documented in this encounter Results * (ABNORMAL) POCT hemoglobin A1c (09/16/2021 9:30 AM BUS REPAIR SUPERVISOR) Hemoglobin A1C, POC 9.2 Blood specimen (specimen) 09/16/2021 9:30 AM BUS REPAIR SUPERVISOR Nathan Martinez MD POINT OF CARE TEST ORDERAB LES Final Result documented in this encounter Visit Diagnoses Diagnosis Chronic abdominal pain- Primary Abdominal pain, unspecified site Type 2 diabetes mellitus with hyperglycemia, without long-term current use of insulin (HCC) Attention deficit disorder (ADD) without hyperactivity documented in this encounter Care Teams Credit Report Checker Relationship Specialty Start Date End Date Nathan Martinez MD PCP - General Family Practice 09/10/20 Monique Garcia MD Referring Physician Gastroenterology 06/11/20 Monique Garcia MD Referring Physician Gastroenterology 06/11/20 documented as of this encounter
--- OUTSIDE RECORDS SUMMARY | 2024-09-03 12:19 | XMS_ITS | Encounter Summary ---
Author Organization [facility] Healthcare Address [address] [place] [address] Care Team Providers Care Drinking Water Technician Name Role Phone Monique Garcia MD Unavailable [phone] Monique Garcia MD Unavailable [phone] Nathan Martinez MD Primary Care Provider [phone] Encounter Details Date Type Department Care Team (Late st Contact Info) Description 01/07/2021 8:18 PM CDT - 01/08/2021 1:30 AM CDT Emergency [facility] Emergency Department [address] [place] [address] Unknown, Laura Valencia MD [facility] [place] [address] Discharge Disposition: Discharge to home [...] CDT) Lipase 55 13 - 60 U/L [facility] 01/07/2021 8:47 PM CDT 01/07/2021 8:52 PM CDT Narrative Resulting Agency Comment ER Laura Ferraro MD LAB BLOOD ORDERABLES Marilee l Result [address] [phone] * (ABNORMAL) Comprehensive metabolic panel (01/07/2021 8:47 PM CDT) Sodium 138 135 - 145 mmol/L [facility] Potassium 4.0 3.3 - 5.1 mmol/L [facility] Chloride 102 96 - 108 mmol/L [facility] Carbon Dioxide 25 22 - 32 mmol/L [facility] Anion Gap 11 7 - 16 [facility] Glucose 146(H) 70 - 100 mg/dL [facility] BUN 9 8 - 25 mg/dL [facility] Creatinine 1.1 0.5 - 1.3 mg/dL [facility] Comment: NOTE: Estimated GFR (Cockroft-Gault) will NOT be calculated unless patient Height and Weight were entered. Also, Kidney Disease Stage (GFR) and Estimated GFR (Cockroft-Gault) will NOT be calculated if Creatinine result is <0.2. Kidney Disease Stage 75 mL/MIN [facility] Comment: NOTE; ??The GFR is an estimated [...] on dialysis Est GFR (Cockcroft-G) 92 ml/MIN [facility] Comment: Estimated GFR(Cockroft-Gault)is used to calculate patient medication dosage Calcium 9.4 8.6 - 10.3 mg/dL [facility] Total Protein 7.4 6.4 - 8.3 g/dL [facility] Albumin 4.6 3.5 - 5.0 g/dL [facility] Globulin 2.8 2.3 - 3.5 gm/dL [facility] Albumin/Globulin Ratio 1.6 1.1 - 1.8 [facility] Total Bilirubin 0.3 0.0 - 1.2 mg/dL [facility] AST 18 0 - 40 U/L [facility] ALT 29 0 - 41 U/L [facility] Alkaline Phosphatase 77 40 - 129 U/L [facility] 01/07/2021 8:47 PM CDT 01/07/2021 8:52 PM CDT Narrative Resulting Agency Comment ER us Laura Ferraro MD LAB BLOOD ORDERABLES Marilee harrison Result [facility] [address] [place] [address] * (ABNORMAL) CBC with auto differential (01/07/2021 8:47 PM CDT) WBC 5.6 3.8 - 9.9 X10 3/ul [facility] RBC 5.58 4.30 - 5.80 x10 6/ul [facility] Hemoglobin 14.4 13.0 - 17.5 g/dL [facility] Hct 43.6 38.9 - 50.3 % [facility] MCV 78.1(L) 81.3 - 96.4 fl [facility] MCH 25.8(L) 27.1 - 33.3 pg [facility] MCHC 33.0 32.3 - 35.7 g/dl [facility] RDW 14.0 11.1 - 14.9 % [facility] Plt Count 270 150 - 400 x10 3/ul [facility] MPV 9.2 9.1 - 12.3 fl [facility] Neut % 54.5 % [facility] [facility] Immature Gran % 0.4 % [facility] Lymph % 35.2 % [facility] E AST - [employer] [place] % 8.2 % [facility] E AST - [employer] Eos % 1.3 % [facility] E AST - [employer] AUTO [place] % 0.4 % [facility] NEUTROPHIL ABS # 3.1 1.7 - 6.5 x10 3/ul [facility] Immature Gran # 0.0 0.0 - 0.1 x10 3/ul [facility] Absolute Lymphs (auto) 2.0 0.8 - 3.3 x10 3/ul [facility] Absolute Monos (auto) 0.5 0.2 - 0.8 x10 3/ul [facility] Absolute Eos (auto) 0.1 0.0 - 0.5 x10 3/ul [facility] BASOPHIL ABS # 0.0 0.0 - 0.1 x10 3/ul [facility] Nucleat RBC Rel Count 0.0 #/100WBC [facility] NRBC abs 0.00 0.00 - 0.01 x10 3/ul [facility] Absolute Neutrophils 3,100 200 - 8,000 /ul [facility] 01/07/2021 8:47 PM CDT 01/07/2021 8:52 PM CDT Narrative Resulting Agency Comment ER us Laura Ferraro MD LAB BLOOD ORDERABLES Marilee l Result [address] [phone] * CT Abdomen Pelvis W Contrast (01/07/2021 12:00 AM CDT) Anatomical Region Laterality Modality Body N/A Computed Tomogra phy 01/07/2021 10:2 7 PM CDT Narrative 01/07/2021 10:48 PM CDT Patient Name: MATTHEW WRIGHT ?Ordering Dr: Laura Ferraro MD ?? D.O.B: 1970 ? Exam Date: 01/07/21 ?? 0000 ?? Age: 50 ?Sex: Male ? MR#: [id number] ?? Loc: ? RADIOLOGY REPORT ?? Order #[id number] ?? CT Scan ? CT Abd/Pelvis W [...] T: ??01/07/2021 10:48 PM ? Report ID: [id number] ?? Reading Location: ??[id number] ? REPORT ELECTRONICALLY SIGNED IN OTHER VENDOR SYSTEM ?? Resulting Agency Comment E Procedure Note Hemanth Wagoner MD - 01/07/2021 Patient Name: MATTHEW WRIGHT Dr: Laura Ferraro MD D.O.B: 1970 Exam Date: 01/07/21 0000 Age: 50 Sex: Male MR#: [id number] Loc: RADIOLOGY REPORT Order #[id number] CT Scan CT Abd/Pelvis W IV Contrast [...] by Hemanth Wagoner KT: DILAN Report ID: [id number] Reading Location: [place] [address] REPORT ELECTRONICALLY SIGNED IN OTHER VENDOR SYSTEM Laura Ferraro MD IMG CT PROCEDURES Final R esult documented in this encounter Visit Diagnoses Not on filedocumented in this encounter Care Teams Drinking Water Technician Relationship Specialty Start Date End Date Nathan Martinez MD PCP - General Family Practice 09/10/20 Monique Garcia MD Referring Physician Gastroenterology 06/11/20 Monique Garcia MD Referring Physician Gastroenterology 06/11/20 documented as of this encounter
--- OUTSIDE RECORDS SUMMARY | 2024-09-03 12:19 | XMS_ITS | Encounter Summary ---
Author Organization [facility] Address [address] [facility] [address] [place] [address] Care Team Providers Care Department Head Junior College Name Role Phone Monique Garcia MD Unavailable [phone] Monique Garcia MD Unavailable [phone] Nathan Martinez MD Primary Care Provider [phone] Encounter Details Date Type Department Care Team (Late st Contact Info) Description 10/19/2021 Orders Only [facility] Health Information Management [address] [place] [address] Scanning, Provider Social History Tobacco Use Types [...] on filedocumented in this encounter Care Teams Department Head Junior College Relationship Specialty Start Date End Date Nathan Martinez MD PCP - General Family Practice 09/10/20 Monique Garcia MD Referring Physician Gastroenterology 06/11/20 Monique Garcia MD Referring Physician Gastroenterology 06/11/20 documented as of this encounter
--- OUTSIDE RECORDS SUMMARY | 2024-09-03 12:19 | XMS_ITS | Encounter Summary ---
Author Organization [facility] Address [address] [facility] [address] [place] [address] Care Team Providers Care Repair Operator Name Role Phone Monique Garcia MD Unavailable [phone] Monique Garcia MD Unavailable [phone] Nathan Martinez MD Primary Care Provider [phone] Encounter Details Date Type Department Care Team (Late st Contact Info) Description 12/26/2020 Orders Only [facility] Health Information Management [address] [place] [address] Scanning, Provider Social History Tobacco Use Types [...] documented as of this encounter Care Teams Repair Operator Relationship Specialty Start Date End Date Nathan Martinez MD PCP - General Family Practice 09/10/20 Monique Garcia MD Referring Physician Gastroenterology 06/11/20 Monique Garcia MD Referring Physician Gastroenterology 06/11/20 documented as of this encounter
--- OUTSIDE RECORDS SUMMARY | 2024-09-03 12:19 | XMS_ITS | Encounter Summary ---
Author Organization [facility] Address [address] [facility] [address] [place] [address] Care Team Providers Care Braille And Talking Books Clerk Name Role Phone Monique Garcia MD Unavailable [phone] Monique Garcia MD Unavailable [phone] Nathan Martinez MD Primary Care Provider [phone] Encounter Details Date Type Department Care Team (Late st Contact Info) Description 07/14/2022 Orders Only [facility] Health Information Management [address] [place] [address] Scanning, Provider Social History Tobacco Use Types [...] on filedocumented in this encounter Care Teams Braille And Talking Books Clerk Relationship Specialty Start Date End Date Nathan Martinez MD PCP - General Family Practice 09/10/20 Monique Garcia MD Referring Physician Gastroenterology 06/11/20 Monique Garcia MD Referring Physician Gastroenterology 06/11/20 documented as of this encounter
--- OUTSIDE RECORDS SUMMARY | 2024-09-03 12:19 | XMS_ITS | Encounter Summary ---
Author Organization [facility] Address [address] [facility] [address] [place] [address] Care Team Providers Care Kiln Maintenance Name Role Phone Monique Garcia MD Unavailable [phone] Monique Garcia MD Unavailable [phone] Nathan Martinez MD Primary Care Provider [phone] Encounter Details Date Type Department Care Team (Late st Contact Info) Description 12/17/2021 Orders Only [facility] Health Information Management [address] [place] [address] Scanning, Provider Social History Tobacco Use Types [...] on filedocumented in this encounter Care Teams Kiln Maintenance Relationship Specialty Start Date End Date Nathan Martinez MD PCP - General Family Practice 09/10/20 Monique Garcia MD Referring Physician Gastroenterology 06/11/20 Monique Garcia MD Referring Physician Gastroenterology 06/11/20 documented as of this encounter
--- OUTSIDE RECORDS SUMMARY | 2024-09-03 12:20 | XMS_ITS | Encounter Summary ---
Author Organization [facility] Address [address] [address] Care Team Providers Care Cage Fighter Name Role Phone Monique Garcia MD Unavailable [phone] Monique Garcia MD Unavailable [phone] Nathan Martinez MD Primary Care Provider [phone] Reason for Visit * Reason Comments Follow-up Six month follow up r/t insomnia, depression, anemia, diabetes. No current labs in chart. Memory Loss Reports decreased co gnition since COVID-19 diagnosis this August. Reports this is worsening. Reports short term memory loss. Encounter Details Date Type Department Care Team (Late st Contact Info) Description 10/08/2020 10:45 AM INSURANCE SALES MANAGER Office Visit [facility] Primary Care [address] [place] [address] Nathan Martinez MD [address] [place] [address] Type 2 diabetes mellitus with hyperglycemia, without long-term current use of insulin ([facility]) (Primary Dx); Attention deficit disorder (ADD) without [...] Comments Blood Pressure 114/72 10/08/2020 10:16 AM INSURANCE SALES MANAGER Pulse 80 10/08/2020 10:16 AM INSURANCE SALES MANAGER Temperature 36 ??C (96.8 ??F) 10/08/2020 10:16 AM INSURANCE SALES MANAGER Respiratory Rate 16 10/08/2020 10:16 AM INSURANCE SALES MANAGER Oxygen Saturation 100% 10/08/2020 10:16 AM INSURANCE SALES MANAGER Inhaled Oxygen Concentration - - Weight 94.8 kg (209 lb) 10/08/2020 10:16 AM INSURANCE SALES MANAGER Height 176.5 cm (5' 9.49 ) 10/08/2020 10:[address] Body Mass Index 30.43 10/08/2020 10:16 AM INSURANCE SALES MANAGER documented in this encounter Ordered [...] attention deficit disorder by psychiatrist at the [place] and had responded previously to modafinil PHQ-9 [...] of insulin ([facility]) (E11.65) Assessment & Plan: Check fasting blood [...] Previously diagnosed with this by psychiatrist at [place]. good response previously to modafinil but I would prefer to try Strattera 1st as I told him I am not that familiar with usage of modafinil Other orders - atomoxetine (STRATTERA) 18 mg capsule; Take 1 capsule (18 mg total) by mouth 2 (two) times a day RANCE SALES MANAGER documented in this encounter Miscellaneous Notes * Assessment & Plan Note - Nathan Martinez MD - 10/08/2020 10:46 AM INSURANCE SALES MANAGER Associated Problem(s): Shortness of breath Much improved RANCE SALES MANAGER * Assessment & Plan Note - Nathan Martinez MD - 10/08/2020 10:45 AM INSURANCE SALES MANAGER Associated Problem(s): Rash Much improved RANCE SALES MANAGER * Assessment & Plan Note - Nathan Martinez MD - 10/08/2020 10:45 AM INSURANCE SALES MANAGER Associated Problem(s): Cough Much improved RANCE SALES MANAGER * Assessment & Plan Note - Nathan Martinez MD - 10/08/2020 10:44 AM INSURANCE SALES MANAGER Associated Problem(s): ADD (attention deficit disorder) Previously diagnosed with this by psychiatrist at [place]. good response previously to modafinil but I would prefer to try Strattera 1st as I told him I am not that familiar with usage of modafinil RANCE SALES MANAGER * Assessment & Plan Note - Nathan Martinez MD - 10/08/2020 10:31 AM INSURANCE SALES MANAGER Associated Problem(s): Psychophysiologic insomnia Improved. Continue trazodone 100 mg RANCE SALES MANAGER * Assessment & Plan Note - Nathan Martinez MD - 10/08/2020 10:30 AM INSURANCE SALES MANAGER Associated Problem(s): Type 2 diabetes mellitus with hyperglycemia, without long-term current use of insulin ([facility]) Check fasting blood sugar today. Result is 415 no he has had better sugars at home. No hypoglycemicsymptoms will increase Jardiance to 25 mg daily as he has had no side effects. RANCE SALES MANAGER RANCE SALES MANAGER documented in this encounter Plan of Treatment Not on file documented as of this encounter Procedures Procedure Name Priority Date/Time Associated Diagnosis Comments POCT GLUCOSE Routine 10/08/2020 10:43 AM INSURANCE SALES MANAGER Type 2 diabetes mellitus with hyperglycemia, without long-term current use of insulin ([facility]) documented in this encounter Results * (ABNORMAL) POCT glucose (10/08/2020 10:43 AM INSURANCE SALES MANAGER) Glucose Blood, POC 415 mg/dL Blood specimen (specimen) 10/08/2020 10:43 AM INSURANCE SALES MANAGER Nathan Martinez MD POINT OF CARE TEST ORDERAB LES Final Result documented in this encounter Visit Diagnoses Diagnosis Type 2 diabetes mellitus with hyperglycemia, without long-term current use of insulin ([facility])- Primary Attention deficit disorder (ADD) without hyperactivity Shortness of breath Cough Psychophysiologic insomnia documented in this encounter Additional Health Concerns Infection Onset Date Last Indicated Resolved Time COVID: Recovered Comment:Added based on recent COVID infection. 09/06/2020 09/07/2020 01/04/2021 3:05 AM C DT documented as of this encounter Care Teams Cage Fighter Relationship Specialty Start Date End Date Nathan Martinez MD PCP - General Family Practice 09/10/20 Monique Garcia MD Referring Physician Gastroenterology 06/11/20 Monique Garcia MD Referring Physician Gastroenterology 06/11/20 documented as of this encounter
--- OUTSIDE RECORDS SUMMARY | 2024-09-03 12:20 | XMS_ITS | Encounter Summary ---
Author Organization [facility] Healthcare Address [facility] [place] [address] Care Team Providers Care Wet Room Worker Name Role Phone Unknown, Notinfile Primary Care Provider Unavail able Reason for Visit * Reason Comments Abdominal Pain Encounter Details Date Type Department Care Team (Late st Contact Info) Description 05/13/2020 2:58 AM CDT - 05/13/2020 5:48 AM CDT Emergency [facility] Emergency Department [address] [place] [address] Discharge Disposition: Left without being seen Social [...] PRIOR TO BEING SEEN BY [facility] [place] Unspecified abdominal pain - UNSPECIFIED ABDOMINAL PAIN [...] ORDERABLES - DEVICE F inal Result [facility] Department [place] [address] documented in this encounter Visit Diagnoses Not [...] 05/13/2020 documented in this encounter Care Teams Wet Room Worker Relationship Specialty Start Date End Date Unknown, Notinfile PCP - General 05/13/20 05/22/20 documented as of this encounter
--- OUTSIDE RECORDS SUMMARY | 2024-09-03 12:20 | XMS_ITS | Encounter Summary ---
Author Organization [facility] Healthcare Address [facility] [place] [address] Care Team Providers Care Special Services Agent Name Role Phone Monique Garcia MD Unavailable [phone] Monique Garcia MD Unavailable [phone] April Gresham NP Primary Care Provider [phone] Encounter Details Date Type Department Care Team (Late st Contact Info) Description 08/24/2020 12:56 AM GAS REFRIGERATOR SERVICER - 08/24/2020 1:52 PM [facility] Hospital Encounter [facility] ADMIT Daphney Rasmussen MD [facility] [place] [address] Moises Rodriguez MD [facility] [place], [place] [id number] Discharge Disposition: Discharge to home or self [...] Time COVID19 08/23/2020 08/23/2020 09/06/2020 3:07 AM GAS REFRIGERATOR SERVICER documented as of this encounter Care Teams Special Services Agent Relationship Specialty Start Date End Date April Gresham NP PCP - General 08/17/20 09/09/20 Monique Garcia MD Referring Physician Gastroenterology 06/11/20 Monique Garcia MD Referring Physician Gastroenterology 06/11/20 documented as of this encounter
--- OUTSIDE RECORDS SUMMARY | 2024-09-03 12:20 | XMS_ITS | Encounter Summary ---
Author Organization [facility] Address [address] [address] Care Team Providers Care Wind Project Manager Name Role Phone Monique Garcia MD Unavailable [phone] Monique Garcia MD Unavailable [phone] Nathan Martinez MD Primary Care Provider [phone] Reason for Visit * Reason Comments New Patient Here to establish ca re as new patient. Previous PCP- Dr. Adrian in [place]. Last seen three months ago. Has appointment with Dr. Garcia today. Has never had a colonoscopy. Has not had dilated eye exam in the past year. Does not get flu shots. Encounter Details Date Type Department Care Team (Late st Contact Info) Description 06/11/2020 10:30 AM CDT Office Visit [facility] Primary Care [address] [place] [id number] Nathan Martinez MD [address] [place], [place] [id number] Left lower quadrant pain (Primary Dx); Type [...] new patient. Previous PCP- Dr. Adrian in [place]. Last seenthree months ago. Has appointment with [...] without long-term current use of insulin ([facility]) (E11.65) Assessment & Plan: A1c today. Orders: - Comprehensive metabolic panel; Future - Hemoglobin A1c; Future - Lipid panel; Future - Microalbumin, urine, random; Future Psychophysiologic insomnia (F51.04) Assessment & Plan: Continue medication at same dosage. Well controlled. Major depression in remission ([facility]) (F32.5) Assessment & Plan: Continue medication at [...] without long-term current use of insulin ([facility]) Expected: 06/11/2020, Expires: 06/11/2021 Hemoglobin A1c Lab Routine Type 2 diabetes mellitus with hyperglycemia, without long-term current use of insulin (CMS/HCC) Expected: 06/11/2020, Expires: 06/11/2021 Lipid panel Lab Routine Type 2 diabetes mellitus with hyperglycemia, without long-term current use of insulin ([facility]) Expected: 06/11/2020, Expires: 06/11/2021 Microalbumin, urine, random Lab Routine Type 2 diabetes mellitus with hyperglycemia, without long-term current use of insulin ([facility]) Expected: 06/11/2020, Expires: 06/11/2021 documented as of this encounter Visit Diagnoses Diagnosis Left lower quadrant pain- Primary Abdominal pain, left lower quadrant Type 2 diabetes mellitus with hyperglycemia, without long-term current use of insulin ([facility]) Psychophysiologic insomnia Major depression in remission ([facility]) Major depressive disorder, single episode in full [...] documented as of this encounter Care Teams Wind Project Manager Relationship Specialty Start Date End Date Nathan Martinez MD PCP - General Family Practice 06/11/20 08/16/20 Monique Garcia MD Referring Physician Gastroenterology 06/11/20 Monique Garcia MD Referring Physician Gastroenterology 06/11/20 documented as of this encounter
--- OUTSIDE RECORDS SUMMARY | 2024-09-03 12:20 | XMS_ITS | Encounter Summary ---
Author Organization [facility] Healthcare Address [address] [place] [address] Care Team Providers Care Tax Collection Coordinator Name Role Phone Monique Garcia MD Unavailable [phone] Monique Garcia MD Unavailable [phone] Nathan Martinez MD Primary Care Provider [phone] Encounter Details Date Type Department Care Team (Latest Contact Info) Description 11/07/2020 5:35 AM CDT - 11/07/2020 11:05 AM CDT Hospital Encounter [facility] OP INTERIM Yousif Weston II, MD [address] [place] [address] Discharge Disposition: Discharge to home [...] WBC 4.8 3.8 - 9.9 X10 3/ul [facility] RBC 5.07 4.30 - 5.80 x10 6/ul [facility] Hemoglobin 13.3 13.0 - 17.5 g/dL [facility] Hct 40.2 38.9 - 50.3 % [facility] MCV 79.3(L) 81.3 - 96.4 fl [facility] MCH 26.2(L) 27.1 - 33.3 pg [facility] MCHC 33.1 32.3 - 35.7 g/dl [facility] RDW 13.9 11.1 - 14.9 % [facility] Plt Count 242 150 - 400 x10 3/ul [facility] MPV 9.0(L) 9.1 - 12.3 fl [facility] Neut % 56.4 % [facility] Immature Gran % 0.4 % [facility] Lymph % 32.2 % [facility] Auglaize % 8.1 % [facility] Eos % 2.3 % [facility] AUTO BASO % 0.6 % [facility] NEUTROPHIL ABS # 2.7 1.7 - 6.5 x10 3/ul [facility] Immature Gran # 0.0 0.0 - 0.1 x10 3/ul [facility] Absolute Lymphs (auto) 1.6 0.8 - 3.3 x10 3/ul [facility] Absolute Monos (auto) 0.4 0.2 - 0.8 x10 3/ul [facility] Absolute Eos (auto) 0.1 0.0 - 0.5 x10 3/ul [facility] BASOPHIL ABS # 0.0 0.0 - 0.1 x10 3/ul [facility] Nucleat RBC Rel Count 0.0 #/100WBC [facility] NRBC abs 0.00 0.00 - 0.01 x10 3/ul [facility] Absolute Neutrophils 2,700 200 - 8,000 /ul [facility] 11/07/2020 6:34 AM CDT 11/07/2020 6:40 AM CDT Narrative Resulting Agency Comment SDC Yousif Weston II, MD LAB BLOOD ORDERABLES Marilee l Result [address] [phone] * PROCEDURE - RESULT (11/07/2020 12:00 AM [...] documented as of this encounter Care Teams Tax Collection Coordinator Relationship Specialty Start Date End Date Nathan Martinez MD PCP - General Family Practice 09/10/20 Monique Garcia MD Referring Physician Gastroenterology 06/11/20 Monique Garcia MD Referring Physician Gastroenterology 06/11/20 documented as of this encounter
--- OUTSIDE RECORDS SUMMARY | 2024-09-03 12:20 | XMS_ITS | Encounter Summary ---
Author Organization [facility] Address [address] [address] Care Team Providers Care Injection Molding Machine Tender Name Role Phone Monique Garcia MD Unavailable [phone] Monique Garcia MD Unavailable [phone] Raúl Martinez MD Primary Care Provider [phone] Reason for Referral * Consultation (Routine) - Closed Specialty Diagnoses / Procedures Referred By Hugo dang Referred To Contact Otolaryngology Diagnoses Nasal polyp Raúl Maritnez MD Phone: tel: fax: Smith Rain MD [address] [place] [address] Phone: tel: fax: Referral ID Status Reason Start Date Expiration Date V isits Requested Visits Authorized [id number] Closed Specialty Services Required 09/10/2020 10/10/2021 1 1 Question Answer Please select the performing region: [facility] [[id number]] Please select the performing department: [facility] [[id number]] # of visits: 1 STYLE COORDINATOR Reason for Visit * Reason Comments Follow-up Three month follow u p r/t anemia, insomnia, depression, diabetes. Current labs in chart. Shortness of Breath Reports shortness of breath since developing COVID-19 on 08/16/20. States this is only with exertion. C/o fatigue. Continues to c/o dry lingering cough. States he was informed of probable lung scarring but was not referred to veterans services specialist. Rash C/o intermittent duams sed rash over the past two weeks. C/o itching. Has attempted Benadryl. Medication Problem Would like to discus s increasing trazodone as this is no longer effective. Encounter Details Date Type Department Care Team (Late st Contact Info) Description 09/10/2020 9:30 AM LIFESTYLE COORDINATOR Office Visit [facility] Primary Care [address] [place] [address] Raúl Martinez MD [address] [place] [address] Type 2 diabetes mellitus with [...] Comments Blood Pressure 128/80 09/10/2020 9:17 AM LIFESTYLE COORDINATOR Pulse 92 09/10/2020 9:17 AM LIFESTYLE COORDINATOR Temperature 36 ??C (96.8 ??F) 09/10/2020 9:17 AM LIFESTYLE COORDINATOR Respiratory Rate 20 09/10/2020 9:17 AM LIFESTYLE COORDINATOR Oxygen Saturation 98% 09/10/2020 9:17 AM LIFESTYLE COORDINATOR Inhaled Oxygen Concentration - - Weight 91.7 kg (202 lb 3.2 oz) 09/10/2020 9:17 A M LIFESTYLE COORDINATOR Height 176.5 cm (5' 9.49 ) 09/10/2020 9:17 AM CS T Body Mass Index 29.44 09/10/2020 9:17 AM LIFESTYLE COORDINATOR documented in this encounter Ordered Prescriptions Prescription [...] lung scarring but was not referred to veterans services specialist. ), Rash (C/o intermittent raised rash [...] hyperglycemia, without long-term current use of insulin ([facility]) (E11.65) (Primary) Assessment & Plan: Needs better control. Medication options discussed. Risk and benefits of each option. Will add Jardiance 10 mg and re-evaluate 3 months Orders: - Hemoglobin A1c; Future - Comprehensive metabolic panel; Future Major depression in remission ([facility]) (F32.5) Assessment & Plan: Continue medication [...] times daily as needed. Avoid faceand groin. STYLE COORDINATOR documented in this encounter Miscellaneous Notes * Assessment & Plan Note - Raúl Martinez MD - 09/10/2020 10:07 AM LIFESTYLE COORDINATOR Associated Problem(s): Nasal polyp ENT referral STYLE COORDINATOR * Assessment & Plan Note - Raúl Martinez MD - 09/10/2020 10:02 AM LIFESTYLE COORDINATOR Associated Problem(s): Rash There is a dry Pash of eczematoid type rash on his back that is different than psoriasis he has other areas. We will give him some topical hydrocortisone cream but not to use longer than 2 weeks as risk of atrophy and tolerance. STYLE COORDINATOR * Assessment & Plan Note - Raúl Martinez MD - 09/10/2020 9:59 AM LIFESTYLE COORDINATOR Associated Problem(s): Psychophysiologic insomnia Increase trazodone to 100 mg needs better control STYLE COORDINATOR * Assessment & Plan Note - Raúl Martinez MD - 09/10/2020 9:58 AM LIFESTYLE COORDINATOR Associated Problem(s): Shortness of breath Mainly with exertion and will refer to Pulmonary. Recent COVID pneumonia. Will allow return to workas shortness of breath is only with exertion. STYLE COORDINATOR STYLE COORDINATOR * Assessment & Plan Note - Raúl Martinez MD - 09/10/2020 9:58 AM LIFESTYLE COORDINATOR Associated Problem(s): Cough Persisting cough and will refer to Pulmonary for STYLE COORDINATOR * Addendum Note - Raúl Martinez MD - 09/10/2020 9:30 AM CSTAddended by: RAÚL MARTINEZ on: 09/10/2020 10:08 AM Modules accepted: Orders STYLE COORDINATOR * Assessment & Plan Note - Raúl Martinez MD - 09/09/2020 1:02 PM LIFESTYLE COORDINATOR Associated Problem(s): Anemia Needs iron studies and methylmalonic acid level. Needs to have colonoscopy done. STYLE COORDINATOR * Assessment & Plan Note - Raúl Martinez MD - 09/09/2020 1:01 PM LIFESTYLE COORDINATOR Associated Problem(s): Major depression in remission (HCC) Continue medication at same dosage. Well controlled. STYLE COORDINATOR * Assessment & Plan Note - Raúl Martinez MD - 09/09/2020 1:01 PM LIFESTYLE COORDINATOR Associated Problem(s): Type 2 diabetes mellitus with hyperglycemia, without long-term current use of insulin (HCC) Needs better control. Medication options discussed. Risk and benefits of each option. Will add Jardiance 10 mg and re-evaluate 3 months STYLE COORDINATOR STYLE COORDINATOR documented in this encounter Plan of Treatment Scheduled Orders Name Type Priority Associated Diagnoses Orde r Schedule Hemoglobin A1c Lab Routine Type 2 diabetes mellitus with hyperglycemia, without long-term current use of insulin ([facility]) Expected: 09/10/2020, Expires: 09/10/2021 Comprehensive metabolic panel Lab Routine Type 2 diabetes mellitus with hyperglycemia, without long-term current use of insulin ([facility]) Expected: 09/10/2020, Expires: 09/10/2021 Scheduled Referrals [...] documented as of this encounter Care Teams Injection Molding Machine Tender Relationship Specialty Start Date End Date Raúl Martinez MD PCP - General Family Practice 09/10/20 Monique Garcia MD Referring Physician Gastroenterology 06/11/20 Monique Garcia MD Referring Physician Gastroenterology 06/11/20 documented as of this encounter
--- OUTSIDE RECORDS SUMMARY | 2024-09-03 12:20 | XMS_ITS | Encounter Summary ---
Author Organization [facility] Healthcare Address [address] [place] [address] Care Team Providers Care Environmental Planner Name Role Phone Unknown, Notinfile Primary Care Provider Unavail able Encounter Details Date Type Department Care Team (Late st Contact Info) Description 05/13/2020 5:02 AM CDT - 05/13/2020 8:00 AM CDT Hospital Encounter [facility] Emergency Department [address] [place] [address] Maura De MD [facility] [place] [address] Rufino Hicks MD [facility] [place] [address] Unknown, Notinfile Discharge Disposition: Discharge to home [...] ?? Age: 50 ?Sex: Male ? MR#: [id number] ?? Loc: ? RADIOLOGY REPORT ?? Order #[id number] ?? CT Scan ? CT Abd/Pelvis W [...] T: ??05/13/2020 6:42 AM ? Report ID: [id number] ?? Reading Location: ??[id number] ? REPORT ELECTRONICALLY SIGNED IN OTHER VENDOR SYSTEM ?? Resulting Agency Comment E Procedure Note Frank Varner MD - 05/13/2020 Patient Name: MATTHEW WRIGHT Dr: Maura De MD D.O.B: 1970 Exam Date: 05/13/20 0533 Age: 50 Sex: Male MR#: [id number] Loc: RADIOLOGY REPORT Order #[id number] CT Scan CT Abd/Pelvis W IV Contrast [...] Frank Varner M.D. NC: KERI Report ID: [id number] Reading Location: [place] [address] REPORT ELECTRONICALLY SIGNED IN OTHER VENDOR SYSTEM Maura De MD IMG CT PROCEDURES Marilee l Result * Lipase (05/13/2020 5:18 AM CDT) Lipase 33 13 - 60 U/L [facility] 05/13/2020 5:18 AM CDT 05/13/2020 5:24 AM CDT Narrative Resulting Agency Comment ER us Maura De MD LAB BLOOD ORDERABLES F inal Result [address] [phone] * (ABNORMAL) Comprehensive metabolic panel (05/13/2020 5:18 AM CDT) [facility] Sodium 138 135 - 145 mmol/L [facility] Potassium 4.1 3.3 - 5.1 mmol/L [facility] Chloride 99 96 - 108 mmol/L [facility] Carbon Dioxide 25 22 - 32 mmol/L [facility] Anion Gap 14 7 - 16 [facility] Glucose 178(H) 70 - 100 mg/dL [facility] BUN 10 8 - 25 mg/dL [facility] Creatinine 0.9 0.5 - 1.3 mg/dL [facility] Comment: NOTE: Estimated GFR (Cockroft-Gault) will NOT be calculated unless patient Height and Weight were entered. Also, Kidney Disease Stage (GFR) and Estimated GFR (Cockroft-Gault) will NOT be calculated if Creatinine result is <0.2. Kidney Disease Stage >90 mL/MIN [facility] Comment: NOTE; ??The GFR is an [...] on dialysis Est GFR (Cockcroft-G) 113 ml/MIN [facility] Comment: Estimated GFR(Cockroft-Gault)is used to calculate patient medication dosage Calcium 9.7 8.6 - 10.3 mg/dL [facility] Total Protein 7.3 6.4 - 8.3 g/dL [facility] Albumin 4.6 3.5 - 5.0 g/dL [facility] Globulin 2.7 2.3 - 3.5 gm/dL [facility] Albumin/Globulin Ratio 1.7 1.1 - 1.8 [facility] Total Bilirubin 0.3 0.0 - 1.2 mg/dL [facility] AST 24 0 - 40 U/L [facility] ALT 33 0 - 41 U/L [facility] Alkaline Phosphatase 59 40 - 129 U/L [facility] 05/13/2020 5:18 AM CDT 05/13/2020 5:24 AM CDT Narrative Resulting Agency Comment ER us Maura De MD LAB BLOOD ORDERABLES F inal Result [address] [phone] * (ABNORMAL) CBC with auto differential (05/13/2020 5:18 AM CDT) WBC 5.2 3.8 - 9.9 X10 3/ul [facility] RBC 5.50 4.30 - 5.80 x10 6/ul [facility] Hemoglobin 14.4 13.0 - 17.5 g/dL [facility] Hct 44.1 38.9 - 50.3 % [facility] MCV 80.2(L) 81.3 - 96.4 fl [facility] MCH 26.2(L) 27.1 - 33.3 pg [facility] MCHC 32.7 32.3 - 35.7 g/dl [facility] RDW 14.3 11.1 - 14.9 % [facility] Plt Count 267 150 - 400 x10 3/ul [facility] MPV 9.1 9.1 - 12.3 fl [facility] Neut % 50.1 % [facility] E AST S-cubism [facility] Immature Gran % 0.2 % [facility] Lymph % 39.7 % [facility] E AST - [employer] [place] % 7.5 % [facility] E AST - [employer] Eos % 1.9 % [facility] E [facility] - [facility] AUTO BASO % 0.6 % [facility] NEUTROPHIL ABS # 2.6 1.7 - 6.5 x10 3/ul [facility] Immature Gran # 0.0 0.0 - 0.1 x10 3/ul [facility] Absolute Lymphs (auto) 2.1 0.8 - 3.3 x10 3/ul [facility] Absolute Monos (auto) 0.4 0.2 - 0.8 x10 3/ul [facility] Absolute Eos (auto) 0.1 0.0 - 0.5 x10 3/ul [facility] BASOPHIL ABS # 0.0 0.0 - 0.1 x10 3/ul [facility] Nucleat RBC Rel Count 0.0 #/100WBC [facility] NRBC abs 0.00 0.00 - 0.01 x10 3/ul [facility] Absolute Neutrophils 2,600 200 - 8,000 /ul [facility] 05/13/2020 5:18 AM CDT 05/13/2020 5:24 AM CDT Narrative Resulting Agency Comment ER us Maura De MD LAB BLOOD ORDERABLES F inal Result [place] [address] [phone] documented in this encounter Visit Diagnoses Not on filedocumented in this encounter Care Teams Environmental Planner Relationship Specialty Start Date End Date Unknown, Notinfile PCP - General 05/13/20 05/22/20 documented as of this encounter
--- OUTSIDE RECORDS SUMMARY | 2024-09-03 12:20 | XMS_ITS | Encounter Summary ---
Author Organization [facility] Address [address] [place] [address] Phone Care Team Providers Care Line Inspector Name Role Phone Monique Garcia MD Unavailable [phone] Monique Garcia MD Unavailable [phone] Nathan Martinez MD Primary Care Provider [phone] Reason for Visit * Reason Comments Nasal Congestion * Consultation (Routine) - Closed Specialty Diagnoses / Procedures Referred By Hugo dang Referred To Contact Otolaryngology Diagnoses Nasal polyp Nathan Martinez MD Phone: tel: fax: Smith Rain MD [address] [place] [address] Phone: tel: fax: Referral ID Status Reason Start Date Expiration Date V isits Requested Visits Authorized [id number] Closed Specialty Services Required 09/10/2020 10/10/2021 1 1 Encounter Details Date Type Department Care Team (Late st Contact Info) Description 10/08/2020 8:30 AM PERMACULTURE DESIGNER Office Visit [facility] [address] [place] [address] Yousif Weston II, MD [address] [place] [address] Deviated nasal septum (Primary Dx); [...] 90.7 kg (200 lb) 10/08/2020 8:47 AM PERMACULTURE DESIGNER Height 180.3 cm (5' 11 ) 10/08/2020 8:47 AM PERMACULTURE DESIGNER Body Mass Index 27.89 10/08/2020 8:47 AM PERMACULTURE DESIGNER documented in this encounter Progress Notes * [...] on phone: None Gets together: None Attends buddhism service: None Active member of club or [...] is clear saliva flow from Stensen's and Washington's ducts bilaterally. LYMPHATIC: No cervical lymphadenopathy. MUSCULOSKELATAL: Ambulates without difficulty. TMJ is without pain to palpation or trismus. RESPIRATORY: Breathing comfortably without audible wheeze or stridor. PROCEDURE: Procedure: Sinonasal Endoscopy (CPT 37124): Indication: Anterior rhinoscopy was inadequate to visualize [...] may be encountered. Yousif Weston II, M.D. ACULTURE DESIGNER documented in this encounter Plan of Treatment [...] documented as of this encounter Care Teams Line Inspector Relationship Specialty Start Date End Date Nathan Martinez MD PCP - General Family Practice 09/10/20 Monique Garcia MD Referring Physician Gastroenterology 06/11/20 Monique Gracia MD Referring Physician Gastroenterology 06/11/20 documented as of this encounter
--- OUTSIDE RECORDS SUMMARY | 2024-09-03 12:20 | XMS_ITS | Encounter Summary ---
Author Organization [facility] Healthcare Address [address] [place] [address] Care Team Providers Care Health Information Specialist Name Role Phone Monique Garcia MD Unavailable Monique Garcai MD Unavailable [phone] April Gresham NP Primary Care Provider [phone] Encounter Details Date Type Department Care Team (Late st Contact Info) Description 08/17/2020 6:00 PM TAPER OPERATOR - 08/18/2020 12:50 AM [facility] Emergency [facility] Department [address] [place] [address] Althea Petty DO [address] [place] [id number] Unknown, Notinfile Discharge Disposition: Discharge to [...] Comments Blood Pressure 126/79 08/17/2020 6:14 PM TAPER OPERATOR Pulse 92 08/17/2020 6:14 PM TAPER OPERATOR Temperature 37.4 ??C (99.3 ??F) 08/17/2020 6:14 PM CS T Respiratory Rate - - Oxygen Saturation 96% 08/17/2020 6:14 PM TAPER OPERATOR Inhaled Oxygen Concentration - - Weight 94.8 kg (209 lb) 08/17/2020 6:14 PM TAPER OPERATOR Height 180.3 cm (5' 11 ) 08/17/2020 6:14 PM TAPER OPERATOR Body Mass Index 29.15 08/17/2020 6:14 PM TAPER OPERATOR documented in this encounter Medications at Time [...] Comments SCAN - LABS 08/20/2020 12:00 AM TAPER OPERATOR XR CHEST 1 VIEW 08/18/2020 12:00 AM TAPER OPERATOR URINALYSIS AND REFLEX TO MICROSCOPIC AND CULTURE Routine 08/17/2020 9:49 PM TAPER OPERATOR INFLUENZA A/B, RSV, AND COVID-19 PCR Routine 08/17/2020 8:36 PM TAPER OPERATOR BLOOD CULTURE Routine 08/17/2020 8:04 PM TAPER OPERATOR ECG 12-LEAD 08/17/2020 8:00 PM TAPER OPERATOR BLOOD CULTURE Routine 08/17/2020 6:43 PM TAPER OPERATOR SEPSIS LACTATE Routine 08/17/2020 6:42 PM TAPER OPERATOR CBC WITH AUTO DIFFERENTIAL Routine 08/17/2020 6:42 PM TAPER OPERATOR LIPASE Routine 08/17/2020 6:42 PM TAPER OPERATOR COMPREHENSIVE METABOLIC PANEL Routine 08/17/2020 6:[address] ABDOMEN PELVIS W CONTRAST 08/17/2020 12:00 AM TAPER OPERATOR documented in this encounter Results * SCAN - LABS (08/20/2020 12:00 AM TAPER OPERATOR) Narrative 08/20/2020 12:00 AM TAPER OPERATOR Ordered by an unspecified provider. us Historical Provider MD Final Res ult * XR Chest 1 View (08/18/2020 12:00 AM TAPER OPERATOR) Anatomical Region Laterality Modality Body, Chest N/A Radiographic Apdma ging 08/18/2020 12:4 5 AM TAPER OPERATOR Narrative 08/18/2020 12:46 AM TAPER OPERATOR Patient Name: MATTHEW WRIGHT ?Ordering Dr: Althea Petty DO ?? D.O.B: 1970 ? Exam Date: 08/18/20 ?? 0000 ?? Age: 50 ?Sex: Male ? MR#: [id number] ?? Loc: ? RADIOLOGY REPORT ?? Order #[id number] ?? Radiology ? Chest 1 View Portable [...] T: ??08/18/2020 12:46 AM ? Report ID: [id number] ?? Reading Location: ??[id number] ? REPORT ELECTRONICALLY SIGNED IN OTHER VENDOR SYSTEM ?? Resulting Agency Comment E Procedure Note Kurt Love MD - 08/18/2020 Patient Name: ADRIANAMATTHEW Pop Dr: Althea Petty DO, D.O.B: 1970 Exam Date: 08/18/20 0000 Age: 50 Sex: Male MR#: [id number] Loc: RADIOLOGY REPORT Order #[id number] Radiology Chest 1 View Portable Signed EXAM [...] Kurt Love M.D. AR: TORSTEN Report ID: [id number] Reading Location: [place] [address] REPORT ELECTRONICALLY SIGNED IN OTHER VENDOR SYSTEM Althea Petty DO IMG XR PROCEDURES Final Result * (ABNORMAL) Urinalysis reflex to microscopic and culture (08/17/2020 9:49 PM TAPER OPERATOR) Ur Collection Type OTHER [facility] Ur Culture Indicated? C S NOT INDICATED [facility] Urine Color YELLOW YELLOW [facility] Urine Clarity CLEAR CLEAR [facility] Urine Glucose (UA) NORMAL NORMAL mg/dL [facility] Urine Bilirubin NEGATIVE NEGATIVE mg/dl [facility] Urine Ketones NEGATIVE NEGATIVE mg/dL [facility] Ur Specific [place] 1.059(H) 1.005 - 1.025 [facility] Urine Blood NEGATIVE NEGATIVE mg/dl [facility] Urine pH 5.0 5.0 - 8.0 [facility] Urine Protein NEGATIVE NEGATIVE mg/dL [facility] Urine Urobilinogen NORMAL NORMAL mg/dL [facility] Urine Nitrite NEGATIVE NEGATIVE [facility] Ur Leukocyte Esterase NEGATIVE NEGATIVE Rosy/ul [facility] Ur Microscopic Review Not Indicated [facility] 08/17/2020 9:49 PM TAPER OPERATOR 08/17/2020 10:11 PM TAPER OPERATOR Narrative [facility] - 08/17/2020 10:18 PM TAPER OPERATOR Indication(s) for ordering ?? Other - enter in comments kd abd pain Other Resulting Agency Comment ER Althea Petty DO LAB MICROBIOLOGY - GENERAL ORDE RABLES Final Result Performing Organization Address City/[facility]/ZIP Co de Phone Number [address] [phone] * Influenza A/B, RSV, and COVID-19 PCR (08/17/2020 8:36 PM TAPER OPERATOR) [facility] Influenza A RNA NEGATIVE NEGATIVE [facility] Influenza B RNA NEGATIVE NEGATIVE [facility] RSV RNA NEGATIVE NEGATIVE [facility] COVID-19 RNA NEGATIVE [facility] Comment: Testing was performed on the [employer] Xpress SARS-CoV-2 real-time RT-PCR platform under FDA Emergency Use Authorization. ??This test is validated only for appropriately collected nasopharyngeal swab specimens. ??A negative result does not preclude infection with COVID-19 and should not be used as the sole basis for treatment or other patient management decisions. 08/17/2020 8:36 PM TAPER OPERATOR 08/17/2020 8:37 PM TAPER OPERATOR Narrative Resulting Agency Comment ER Althea Petty DO LAB MICROBIOLOGY - GENERAL ORDE RABLES Final Result Performing Organization Address [facility] Co de Phone Number [address] [phone] * Blood culture Blood (08/17/2020 8:04 PM TAPER OPERATOR) Pathologist [facility] CULTURE BLOOD ADULT (SET OF 2) NO GROWTH DAY 5 [facility] Blood 08/17/2020 8:04 PM TAPER OPERATOR 08/17/2020 8:11 PM TAPER OPERATOR Althea Petty DO LAB MICROBIOLOGY - GENERAL ORDE RABLES Final Result Performing Organization Address City/[facility]/ZIP Co de Phone Number [facility] [address] [place] [address], [facility] [phone] * ECG 12 lead (08/17/2020 8:00 PM TAPER OPERATOR) Ventricular Rate EKG/Min 95 BPM [facility] Atrial Rate 95 BPM [facility] TX-Interval (MSEC) 176 ms [facility] QRS-Interval (MSEC) 84 ms [facility] QT-Interval (MSEC) 362 ms [facility] QTc 454 ms [facility] P [place] 23 degrees [facility] R [place] 42 degrees [facility] T [place] 31 degrees [facility] Diagnosis Normal sinus rhythm Normal ECG No previous ECGs available [facility] 08/17/2020 8:00 PM TAPER OPERATOR 08/18/2020 11:15 AM TAPER OPERATOR Narrative Resulting Agency Comment DENA us Althea Petty DO ECG ORDERABLES Final Result [facility] * Blood culture Blood (08/17/2020 6:43 PM TAPER OPERATOR) CULTURE BLOOD ADULT (SET OF 2) NO GROWTH DAY 5 [facility] Blood 08/17/2020 6:43 PM TAPER OPERATOR 08/17/2020 8:10 PM TAPER OPERATOR Althea Petty DO LAB MICROBIOLOGY - GENERAL ORDE RABLES Final Result Performing Organization Address City/[facility]/ZIP Co de Phone Number [place] [address] [address] [phone] * (ABNORMAL) Sepsis Lactate (08/17/2020 6:42 PM TAPER OPERATOR) Sepsis lactate 2.2(HH) mmol/L [facility] Comment: CRITICAL VALUE CALLED and REPEATED. at:1915 08/17/20 by:Deidre Nguyễn to:[id number] Lactate Reference Range: 0.5 - 2.2 mmol/L 08/17/2020 6:42 PM TAPER OPERATOR 08/17/2020 6:49 PM TAPER OPERATOR Narrative Resulting Agency Comment ER us Jennifer MONTENEGRO LAB BLOOD ORDERABLE S Final Result [facility] [address] [place] [address], [facility] [phone] * Lipase (08/17/2020 6:42 PM TAPER OPERATOR) Pathologist [facility] Lipase 30 13 - 60 U/L [facility] 08/17/2020 6:42 PM TAPER OPERATOR 08/17/2020 6:49 PM TAPER OPERATOR Narrative Resulting Agency Comment ER Althea Petty DO LAB BLOOD ORDERABLES Final Resu lt [facility] [address] [place] [address], [facility] [phone] * (ABNORMAL) Comprehensive metabolic panel (08/17/2020 6:42 PM TAPER OPERATOR) [facility] Sodium 134(L) 135 - 145 mmol/L [facility] Potassium 3.8 3.3 - 5.1 mmol/L [facility] Chloride 98 96 - 108 mmol/L [facility] Carbon Dioxide 26 22 - 32 mmol/L [facility] Anion Gap 10 7 - 16 [facility] Glucose 175(H) 70 - 100 mg/dL [facility] BUN 8 8 - 25 mg/dL [facility] Creatinine 1.0 0.5 - 1.3 mg/dL [facility] Comment: NOTE: Estimated GFR (Cockroft-Gault) will NOT be calculated unless patient Height and Weight were entered. Also, Kidney Disease Stage (GFR) and Estimated GFR (Cockroft-Gault) will NOT be calculated if Creatinine result is <0.2. Kidney Disease Stage 84 mL/MIN [facility] Comment: NOTE; ??The GFR is an [...] on dialysis Est GFR (Cockcroft-G) 103 ml/MIN [facility] Comment: Estimated GFR(Cockroft-Gault)is used to calculate patient medication dosage Calcium 9.4 8.6 - 10.3 mg/dL [facility] Total Protein 7.6 6.4 - 8.3 g/dL [facility] Albumin 4.5 3.5 - 5.0 g/dL [facility] Globulin 3.1 2.3 - 3.5 gm/dL [facility] Albumin/Globulin Ratio 1.5 1.1 - 1.8 [facility] Total Bilirubin <0.2 0.0 - 1.2 mg/dL [facility] AST 34 0 - 40 U/L [facility] ALT 50(H) 0 - 41 U/L [facility] Alkaline Phosphatase 87 40 - 129 U/L [facility] 08/17/2020 6:42 PM TAPER OPERATOR 08/17/2020 6:49 PM TAPER OPERATOR Narrative Resulting Agency Comment ER us Althea Petty DO LAB BLOOD ORDERABLES [place] [address], [facility] [phone] * (ABNORMAL) CBC with auto differential (08/17/2020 6:42 PM TAPER OPERATOR) WBC 2.7(L) 3.8 - 9.9 X10 3/ul [facility] RBC 5.33 4.30 - 5.80 x10 6/ul [facility] Hemoglobin 13.9 13.0 - 17.5 g/dL [facility] Hct 43.0 38.9 - 50.3 % [facility] MCV 80.7(L) 81.3 - 96.4 fl [facility] MCH 26.1(L) 27.1 - 33.3 pg [facility] MCHC 32.3 32.3 - 35.7 g/dl [facility] RDW 14.3 11.1 - 14.9 % [facility] Plt Count 206 150 - 400 x10 3/ul [facility] MPV 9.0(L) 9.1 - 12.3 fl [facility] Neut % 67.3 % [facility] Immature Gran % 0.4 % [facility] Lymph % 22.5 % [facility] [employer] [facility]ENTER[facility] Health [place] % 9.0 % [facility] Eos % 0.4 % [facility] AUTO BASO % 0.4 % [facility] NEUTROPHIL ABS # 1.8 1.7 - 6.5 x10 3/ul [facility] Immature Gran # 0.0 0.0 - 0.1 x10 3/ul [facility] Absolute Lymphs (auto) 0.6(L) 0.8 - 3.3 x10 3/ul [facility] Absolute Monos (auto) 0.2 0.2 - 0.8 x10 3/ul [facility] Absolute Eos (auto) 0.0 0.0 - 0.5 x10 3/ul [facility] BASOPHIL ABS # 0.0 0.0 - 0.1 x10 3/ul [facility] Nucleat RBC Rel Count 0.0 #/100WBC [facility] NRBC abs 0.00 0.00 - 0.01 x10 3/ul [facility] Absolute Neutrophils 1,800 200 - 8,000 /ul [facility] 08/17/2020 6:42 PM TAPER OPERATOR 08/17/2020 6:49 PM TAPER OPERATOR Narrative Resulting Agency Comment ER Althea Petty DO LAB BLOOD ORDERABLES [place] [address], [facility] [phone] * CT Abdomen Pelvis W Contrast (08/17/2020 12:00 AM TAPER OPERATOR) Anatomical Region Laterality Modality Body N/A Computed Tomogra phy 08/17/2020 9:41 PM TAPER OPERATOR Narrative 08/17/2020 9:51 PM TAPER OPERATOR Patient Name: MATTHEW WRIGHT ?Ordering Dr: Althea Petty DO ?? D.O.B: 1970 ? Exam Date: 08/17/20 ?? 0000 ?? Age: 50 ?Sex: Male ? MR#: [id number] ?? Loc: ? RADIOLOGY REPORT ?? Order #[id number] ?? CT Scan ? CT Abd/Pelvis W [...] T: ??08/17/2020 9:51 PM ? Report ID: [id number] ?? Reading Location: ??[id number] ? REPORT ELECTRONICALLY SIGNED IN OTHER VENDOR SYSTEM ?? Resulting Agency Comment E Procedure Note Manny Branch MD - 08/17/2020 Patient Name: MATTHEW WRIGHT Dr: Althea Petty DO, D.O.B: 1970 Exam Date: 08/17/20 0000 Age: 50 Sex: Male MR#: [id number] [id number] RE[facility] Order #[id number] CT Scan CT Abd/Pelvis W IV Contrast [...] Manny Branch M.D. DL: JENNIFER Report ID: [id number] Reading Location: [place] [address] REPORT ELECTRONICALLY SIGNED IN OTHER VENDOR SYSTEM Althea Petty DO [facility] PROCEDURES Final Result documented in this encounter Visit Diagnoses Not on filedocumented in this encounter Care Teams Health Information Specialist Relationship Specialty Start Date End Date April Gresham NP PCP - General 08/17/20 09/09/20 Monique Garcia MD Referring Physician Gastroenterology 06/11/20 Monique Garcia MD Referring Physician Gastroenterology 06/11/20 documented as of this encounter
--- OUTSIDE RECORDS SUMMARY | 2024-09-03 12:20 | XMS_ITS | Encounter Summary ---
Author Organization [facility] Address [address] [address] Care Team Providers Care Zigzag Elastic Attacher Name Role Phone Monique Garcia MD Unavailable [phone] Monique Garcia MD Unavailable [phone] Nathan Martinez MD Primary Care Provider [phone] Encounter Details Date Type Department Care Team (Late st Contact Info) Description 10/10/2020 Orders Only [facility] Primary Care [address] [place] [address] Nathan Martinez MD [address] [place] [address] Social History Tobacco Use Types [...] documented as of this encounter Care Teams Zigzag Elastic Attacher Relationship Specialty Start Date End Date Nathan Martinez MD PCP - General Family Practice 09/10/20 Monique Garcia MD Referring Physician Gastroenterology 06/11/20 Monique Garcia MD Referring Physician Gastroenterology 06/11/20 documented as of this encounter
--- OUTSIDE RECORDS SUMMARY | 2024-09-03 12:20 | XMS_ITS | Encounter Summary ---
Author Organization [facility] Address [address] [place] [address] Phone Care Team Providers Care Human Service Coordinator Name Role Phone Monique Garcia MD Unavailable [phone] Monique Garcia MD Unavailable [phone] Nathan Martinez MD Primary Care Provider [phone] Encounter Details Date Type Department Care Team (Late st Contact Info) Description 11/07/[address] [facility] Otolaryngology Yousif Weston II, MD [address] [place] [address] Deviated nasal septum (Primary Dx); Hypertrophy of [...] scanned document of dictated operative note from [facility] on 11/07/20 documented in this encounter Plan [...] documented as of this encounter Care Teams Human Service Coordinator Relationship Specialty Start Date End Date Nathan Martinez MD PCP - General Family Practice 09/10/20 Monique Garcia MD Referring Physician Gastroenterology 06/11/20 Monique Garcia MD Referring Physician Gastroenterology 06/11/20 documented as of this encounter
--- OUTSIDE RECORDS SUMMARY | 2024-09-03 12:20 | XMS_ITS | Encounter Summary ---
Author Organization [facility] Address [address] [place] [address] Phone Care Team Providers Care Equal Opportunity Counselor Name Role Phone Monique Garcia MD Unavailable [phone] Monique Garcia MD Unavailable [phone] Nathan Martinez MD Primary Care Provider [phone] Reason for Visit * Reason Onset Date Comments Post-Op Call 11/08/2020 Encounter Details Date Type Department Care Team (Late st Contact Info) Description 11/08/2020 Telephone [facility] Otolaryngology [address] [place] [phone] Debra Garcia LPN Post-Op Call Social [...] status post op septo/turbs done 11-07-20 at [facility] with Dr. Weston. Reminder left that f/u is scheduled for 11-12-20 at 11:15am in the [place] office. He was instructed to call the [...] documented as of this encounter Care Teams Equal Opportunity Counselor Relationship Specialty Start Date End Date Nathan Martinez MD PCP - General Family Practice 09/10/20 Monique Garcia MD Referring Physician Gastroenterology 06/11/20 Monique Garcia MD Referring Physician Gastroenterology 06/11/20 documented as of this encounter
--- OUTSIDE RECORDS SUMMARY | 2024-09-03 12:20 | XMS_ITS | Encounter Summary ---
Author Organization [facility] Address [address] [place] [address] Care Team Providers Care Coding Advisor Name Role Phone Monique Garcia MD Unavailable [phone] Monique Garcia MD Unavailable [phone] April Gresham NP Primary Care Provider [phone] Encounter Details Date Type Department Care Team (Late st Contact Info) Description 08/23/2020 8:01 PM FILLING AND PACKING SUPERVISOR - 08/23/2020 11:59 PM FILLING AND PACKING SUPERVISOR Emergency [facility] ADMIT Daphney Rasmussen MD [facility] [place] [address] Unknown, Moises Helms MD [facility] [place], [place] [id number] Discharge Disposition: Discharge to a short term [...] Diagnosis Comments LACTATE Routine 08/24/2020 3:28 AM FILLING AND PACKING SUPERVISOR CBC WITH AUTO DIFFERENTIAL Routine 08/24/2020 3:28 AM FILLING AND PACKING SUPERVISOR PHOSPHORUS Routine 08/24/2020 3:28 AM FILLING AND PACKING SUPERVISOR MAGNESIUM Routine 08/24/2020 3:28 AM FILLING AND PACKING SUPERVISOR HEMOGLOBIN A1C Routine 08/24/2020 3:28 AM FILLING AND PACKING SUPERVISOR COMPREHENSIVE METABOLIC PANEL Routine 08/24/2020 3:28 AM FILLING AND PACKING SUPERVISOR INFLUENZA A/B, RSV, AND COVID-19 PCR Routine 08/23/2020 9:59 PM FILLING AND PACKING SUPERVISOR CBC WITH AUTO DIFFERENTIAL Routine 08/23/2020 9:12 PM FILLING AND PACKING SUPERVISOR BLOOD CULTURE Routine 08/23/2020 8:35 PM FILLING AND PACKING SUPERVISOR BLOOD CULTURE Routine 08/23/2020 8:33 PM FILLING AND PACKING SUPERVISOR D-DIMER, QUANTITATIVE Routine 08/23/2020 8:32 PM FILLING AND PACKING SUPERVISOR LACTATE DEHYDROGENASE Routine 08/23/2020 8:32 PM FILLING AND PACKING SUPERVISOR FERRITIN Routine 08/23/2020 8:32 PM FILLING AND PACKING SUPERVISOR COMPREHENSIVE METABOLIC PANEL Routine 08/23/2020 8:32 PM FILLING AND PACKING SUPERVISOR CTA CHEST W IV CONTRAST - PE 08/23/2020 12:00 AM FILLING AND PACKING SUPERVISOR XR CHEST 1 VIEW 08/23/2020 12:00 AM FILLING AND PACKING SUPERVISOR documented in this encounter Results * Lactate (08/24/2020 3:28 AM FILLING AND PACKING SUPERVISOR) LACTATE 0.8 mmol/L [facility] Comment: Lactate Reference Range: 0.5 - 2.2 mmol/L 08/24/2020 3:28 AM FILLING AND PACKING SUPERVISOR 08/24/2020 4:02 AM FILLING AND PACKING SUPERVISOR Narrative Resulting Agency Comment REBA Moises Rodriguez MD LAB BLOOD ORDERABLES Final Result Performing Organization Address [facility] de Phone Number [address] [phone] * (ABNORMAL) Hemoglobin A1c (08/24/2020 3:28 AM FILLING AND PACKING SUPERVISOR) Pathologist [facility] Hemoglobin A1c % 8.5(H) 4.0 - 5.6 % [facility] Comment: ADA 2016 GUIDELINES: ??Initial Diagnostic Criteria ? HbA1c Result: ?Interpretation: ?<5.7% ? Normal ?5.7-6.4% ?At risk for diabetes mellitus ?>=6.5% ?Consistent with diabetes mellitus ??Diabetes monitoring ? Target value (ADA Recommended) ?? <7% 08/24/2020 3:28 AM FILLING AND PACKING SUPERVISOR 08/24/2020 4:02 AM FILLING AND PACKING SUPERVISOR Narrative Resulting Agency Comment REBA Moises Rodriguez MD LAB BLOOD ORDERABLES Final Result Performing Organization Address [facility] de Phone Number [address] [phone] * Phosphorus (08/24/2020 3:28 AM FILLING AND PACKING SUPERVISOR) Phosphorus 3.0 2.3 - 4.5 mg/dL [facility] 08/24/2020 3:28 AM FILLING AND PACKING SUPERVISOR 08/24/2020 4:02 AM FILLING AND PACKING SUPERVISOR Narrative Resulting Agency Comment REBA Moises Rodriguez MD LAB BLOOD ORDERABLES Final Result Performing Organization Address City/[facility]/ZIP Co de Phone Number [address] [phone] * Magnesium (08/24/2020 3:28 AM FILLING AND PACKING SUPERVISOR) Pathologist [facility] Magnesium 2.1 1.6 - 2.6 mg/dL [facility] Comment: Magnesium sulfate therapy: ??3.0-9.1 mg/dL 08/24/2020 3:28 AM FILLING AND PACKING SUPERVISOR 08/24/2020 4:02 AM FILLING AND PACKING SUPERVISOR Narrative Resulting Agency Comment REBA Moises Rodriguez MD LAB BLOOD ORDERABLES Final Result Performing Organization Address [facility] de Phone Number [address] [phone] * (ABNORMAL) Comprehensive metabolic panel (08/24/2020 3:28 AM FILLING AND PACKING SUPERVISOR) Pathologist [facility] Sodium 136 135 - 145 mmol/L [facility] Potassium 3.7 3.3 - 5.1 mmol/L [facility] Chloride 105 96 - 108 mmol/L [facility] Carbon Dioxide 22 22 - 32 mmol/L [facility] Anion Gap 9 7 - 16 [facility] Glucose 197(H) 70 - 100 mg/dL [facility] BUN 11 8 - 25 mg/dL [facility] Creatinine 1.1 0.5 - 1.3 mg/dL [facility] Comment: NOTE: Estimated GFR (Cockroft-Gault) will NOT be calculated unless patient Height and Weight were entered. Also, Kidney Disease Stage (GFR) and Estimated GFR (Cockroft-Gault) will NOT be calculated if Creatinine result is <0.2. Kidney Disease Stage 75 mL/MIN [facility] Comment: NOTE; ??The GFR is an [...] on dialysis Est GFR (Cockcroft-G) 92 ml/MIN [facility] Comment: Estimated GFR(Cockroft-Gault)is used to calculate patient medication dosage Calcium 8.2(L) 8.6 - 10.3 mg/dL [facility] Total Protein 6.3(L) 6.4 - 8.3 g/dL [facility] Albumin 3.6 3.5 - 5.0 g/dL [facility] Globulin 2.7 2.3 - 3.5 gm/dL [facility] Albumin/Globulin Ratio 1.3 1.1 - 1.8 [facility] Total Bilirubin 0.2 0.0 - 1.2 mg/dL [facility] AST 19 0 - 40 U/L [facility] ALT 28 0 - 41 U/L [facility] Alkaline Phosphatase 65 40 - 129 U/L [facility] 08/24/2020 3:28 AM FILLING AND PACKING SUPERVISOR 08/24/2020 4:02 AM FILLING AND PACKING SUPERVISOR Narrative Resulting Agency Comment REBA us Moises Rodriguez MD LAB BLOOD ORDERABLES Final Result [facility] [address] [place] [address], [facility] [phone] * (ABNORMAL) CBC with auto differential (08/24/2020 3:28 AM FILLING AND PACKING SUPERVISOR) WBC 2.0(L) 3.8 - 9.9 X10 3/ul [facility] RBC 4.85 4.30 - 5.80 x10 6/ul [facility] Hemoglobin 12.5(L) 13.0 - 17.5 g/dL [facility] Hct 38.1(L) 38.9 - 50.3 % [facility] MCV 78.6(L) 81.3 - 96.4 fl [facility] MCH 25.8(L) 27.1 - 33.3 pg [facility] MCHC 32.8 32.3 - 35.7 g/dl [facility] RDW 13.9 11.1 - 14.9 % [facility] Plt Count 151 150 - 400 x10 3/ul [facility] MPV 9.5 9.1 - 12.3 fl [facility] Neut % 60.2 % [facility] Immature Gran % 0.0 % [facility] Lymph % 34.7 % [facility] E AST - [facility] [place] % 5.1 % [facility] Eos % 0.0 % [facility] E AST - [facility] AUTO BASO % 0.0 % [facility] NEUTROPHIL ABS # 1.2(L) 1.7 - 6.5 x10 3/ul [facility] Immature Gran # 0.0 0.0 - 0.1 x10 3/ul [facility] Absolute Lymphs (auto) 0.7(L) 0.8 - 3.3 x10 3/ul [facility] Absolute Monos (auto) 0.1(L) 0.2 - 0.8 x10 3/ul [facility] Absolute Eos (auto) 0.0 0.0 - 0.5 x10 3/ul [facility] BASOPHIL ABS # 0.0 0.0 - 0.1 x10 3/ul [facility] Nucleat RBC Rel Count 0.0 #/100WBC [facility] NRBC abs 0.00 0.00 - 0.01 x10 3/ul [facility] Absolute Neutrophils 1,200 200 - 8,000 /ul [facility] 08/24/2020 3:28 AM FILLING AND PACKING SUPERVISOR 08/24/2020 4:02 AM FILLING AND PACKING SUPERVISOR Narrative Resulting Agency Comment REBA us Moises Rodriguez MD LAB BLOOD ORDERABLES Final Result Performing Organization Address [facility] Co de Phone Number [address] [phone] * (ABNORMAL) Influenza A/B, RSV, and COVID-19 PCR (08/23/2020 9:59 PM FILLING AND PACKING SUPERVISOR) [facility] Influenza A RNA NEGATIVE NEGATIVE [facility] Influenza B RNA NEGATIVE NEGATIVE [facility] RSV RNA NEGATIVE NEGATIVE [facility] COVID-19 RNA POSITIVE(A) [facility] Comment: Testing was performed on the [employer] Xpert Xpress SARS-CoV-2 real-time RT-PCR platform under FDA Emergency Use Authorization. This test is validated only for appropriately collected nasopharyngeal swab specimens. 08/23/2020 9:59 PM FILLING AND PACKING SUPERVISOR 08/23/2020 10:14 PM FILLING AND PACKING SUPERVISOR Narrative Resulting Agency Comment ER us Daphney Rasmussen MD LAB MICROBIOLOGY - GENERAL O RDERABLES Final Result Performing Organization Address [facility]/ZIP Co de Phone Number [address] [phone] * (ABNORMAL) CBC with auto differential (08/23/2020 9:12 PM FILLING AND PACKING SUPERVISOR) Pathologist [facility] WBC 1.7(L) 3.8 - 9.9 X10 3/ul [facility] RBC 5.11 4.30 - 5.80 x10 6/ul [facility] Hemoglobin 13.2 13.0 - 17.5 g/dL [facility] Hct 39.5 38.9 - 50.3 % [facility] MCV 77.3(L) 81.3 - 96.4 fl [facility] MCH 25.8(L) 27.1 - 33.3 pg [facility] MCHC 33.4 32.3 - 35.7 g/dl [facility] RDW 13.6 11.1 - 14.9 % [facility] Plt Count 156 150 - 400 x10 3/ul [facility] MPV 9.6 9.1 - 12.3 fl [facility] Neut % 63.3 % [facility] Immature Gran % 0.0 % [facility] Lymph % 28.5 % [facility] AST - [facility] [place] % 7.0 % [facility] Eos % 0.6 % [facility] AUTO BASO % 0.6 % [facility] NEUTROPHIL ABS # 1.1(L) 1.7 - 6.5 x10 3/ul [facility] Immature Gran # 0.0 0.0 - 0.1 x10 3/ul [facility] Absolute Lymphs (auto) 0.5(L) 0.8 - 3.3 x10 3/ul [facility] Absolute Monos (auto) 0.1(L) 0.2 - 0.8 x10 3/ul [facility] Absolute Eos (auto) 0.0 0.0 - 0.5 x10 3/ul [facility] BASOPHIL ABS # 0.0 0.0 - 0.1 x10 3/ul [facility] Nucleat RBC Rel Count 0.0 #/100WBC [facility] NRBC abs 0.00 0.00 - 0.01 x10 3/ul [facility] Absolute Neutrophils 1,100 200 - 8,000 /ul [facility] 08/23/2020 9:12 PM FILLING AND PACKING SUPERVISOR 08/23/2020 9:18 PM FILLING AND PACKING SUPERVISOR Narrative Resulting Agency Comment ER Daphney Rasmussen MD LAB BLOOD ORDERABLES Final R esult Performing Organization Address City/[facility]/ZIP Co de Phone Number [address] [phone] * Blood culture Blood (08/23/2020 8:35 PM FILLING AND PACKING SUPERVISOR) CULTURE BLOOD ADULT (SET OF 2) NO GROWTH DAY 5 [facility] Blood 08/23/2020 8:35 PM FILLING AND PACKING SUPERVISOR 08/23/2020 8:45 PM FILLING AND PACKING SUPERVISOR Narrative [facility] - 08/29/2020 12:45 AM FILLING AND PACKING SUPERVISOR LHAND BC Draw Resulting Agency Comment LHAND BC Draw ?? Daphney Rasmussen MD LAB MICROBIOLOGY - GENERAL O RDERABLES Final Result Performing Organization Address [facility] [place] [address], [facility] [phone] * Blood culture Blood (08/23/2020 8:33 PM FILLING AND PACKING SUPERVISOR) CULTURE BLOOD ADULT (SET OF 2) NO GROWTH DAY 5 [facility] Blood 08/23/2020 8:33 PM FILLING AND PACKING SUPERVISOR 08/23/2020 8:45 PM FILLING AND PACKING SUPERVISOR Narrative [facility] - 08/29/2020 12:45 AM FILLING AND PACKING SUPERVISOR RARM BC Draw Resulting Agency Comment RARM BC Draw ?? Daphney Rasmussen MD LAB MICROBIOLOGY - GENERAL O RDERABLES Final Result Performing Organization Address [facility] [place] [address], [facility] [phone] * Ferritin (08/23/2020 8:32 PM FILLING AND PACKING SUPERVISOR) Ferritin 194.0 30.0 - 400.0 ng/mL [facility] 08/23/2020 8:32 PM FILLING AND PACKING SUPERVISOR 08/23/2020 8:45 PM FILLING AND PACKING SUPERVISOR Narrative Resulting Agency Comment REBA Daphney Rasmussen MD LAB BLOOD ORDERABLES Final R [facility] Performing Organization Address City/[facility]/ZIP Co de Phone Number [facility] [address] [phone] * (ABNORMAL) Lactate dehydrogenase (LD) (08/23/2020 8:32 PM FILLING AND PACKING SUPERVISOR) Lactate Dehydrogenase 278(H) 100 - 250 U/L [facility] Comment: SLIGHTLY HEMOLYZED: Hemolysis interferes with the above test. 08/23/2020 8:32 PM FILLING AND PACKING SUPERVISOR 08/23/2020 8:45 PM FILLING AND PACKING SUPERVISOR Narrative Resulting Agency Comment REBA Daphney Rasmussen MD LAB BLOOD ORDERABLES Final R [facility] Performing Organization Address [facility] de Phone Number [facility] [address] [phone] * (ABNORMAL) Comprehensive metabolic panel (08/23/2020 8:32 PM FILLING AND PACKING SUPERVISOR) Sodium 137 135 - 145 mmol/L [facility] Potassium 3.7 3.3 - 5.1 mmol/L [facility] Chloride 99 96 - 108 mmol/L [facility] Carbon Dioxide 23 22 - 32 mmol/L [facility] Anion Gap 15 7 - 16 [facility] Glucose 159(H) 70 - 100 mg/dL [facility] BUN 12 8 - 25 mg/dL [facility] Creatinine 1.2 0.5 - 1.3 mg/dL [facility] Comment: NOTE: Estimated GFR (Cockroft-Gault) will NOT be calculated unless patient Height and Weight were entered. Also, Kidney Disease Stage (GFR) and Estimated GFR (Cockroft-Gault) will NOT be calculated if Creatinine result is <0.2. Kidney Disease Stage 68 mL/MIN [facility] Comment: NOTE; ??The GFR is an [...] on dialysis Est GFR (Cockcroft-G) 84 ml/MIN [facility] Comment: Estimated GFR(Cockroft-Gault)is used to calculate patient medication dosage Calcium 9.2 8.6 - 10.3 mg/dL [facility] Total Protein 8.0 6.4 - 8.3 g/dL [facility] Albumin 4.4 3.5 - 5.0 g/dL [facility] Globulin 3.6(H) 2.3 - 3.5 gm/dL [facility] Albumin/Globulin Ratio 1.2 1.1 - 1.8 [facility] Total Bilirubin 0.3 0.0 - 1.2 mg/dL [facility] AST 29 0 - 40 U/L [facility] ALT 38 0 - 41 U/L [facility] Alkaline Phosphatase 80 40 - 129 U/L [facility] 08/23/2020 8:32 PM FILLING AND PACKING SUPERVISOR 08/23/2020 8:45 PM FILLING AND PACKING SUPERVISOR Narrative Resulting Agency Comment REBA us Daphney Rasmussen MD LAB BLOOD ORDERABLES [place] [address], [facility] [phone] * (ABNORMAL) D-dimer, quantitative (08/23/2020 8:32 PM FILLING AND PACKING SUPERVISOR) D-Dimer, Quantitative 560(H) <500 ng/mLFEU [facility] Comment: Studies indicate that a D-Dimer [...] ng/ml FEU effective 07/05/19. 08/23/2020 8:32 PM FILLING AND PACKING SUPERVISOR 08/23/2020 8:45 PM FILLING AND PACKING SUPERVISOR Narrative Resulting Agency Comment ER us Daphney Rasmussen MD LAB BLOOD ORDERABLES [place] [address], [facility] [phone] * CTA Chest W IV Contrast - PE (08/23/2020 12:00 AM FILLING AND PACKING SUPERVISOR) Anatomical Region Laterality Modality Body N/A Computed Tomogra phy 08/24/2020 12:4 7 AM FILLING AND PACKING SUPERVISOR Narrative 08/24/2020 12:52 AM FILLING AND PACKING SUPERVISOR Patient Name: MATTHEW WRIGHT ?Ordering : Daphney Rasmussen MD ?? D.O.B: 1970 ? Exam Date: 08/23/20 ?? 0000 ?? Age: 50 ?Sex: Male ? MR#: [id number] ?? Loc: ? RADIOLOGY REPORT ?? Order #[id number] ?? CT Scan ? CTA Chest W [...] ? PLEURA: ??No effusion. No pneumothorax. ? MEDIASTINUM/CRSISY: ??Mildly enlarged mediastinal and hilar lymph nodes, [...] the Society of ?? Thoracic Radiology, the [place] [employer], and RSNA. Radiology: ?? Cardiothoracic Imaging dated 11/16/2019 ? [email or web address]://pubs.rsna.org/doi/[email or web address]/[email or web address] ? THIS IS AN ELECTRONICALLY VERIFIED FINAL REPORT ?? 08/24/2020 12:52 AM - Electronically signed by Alvaro Ballard ?? Alvaro Ballard ? BB: BB ?? D: ??08/24/2020 12:52 AM ?? T: ??08/24/2020 12:52 AM ? Report ID: [id number] ?? Reading Location: ??[id number] ? REPORT ELECTRONICALLY SIGNED IN OTHER VENDOR SYSTEM ?? Resulting Agency Comment E Procedure Note Alvaro Ballard MD PhD - 08/24/2020 Patient Name: MATTHEW WRIGHT Dr: Daphney Rasmussen MD D.O.B: 1970 Exam Date: 08/23/20 0000 Age: 50 Sex: Male MR#: [id number] Loc: RADIOLOGY REPORT Order #[id number] CT Scan CTA Chest W IV Contrast [...] Endorsed by the Societyof Thoracic Radiology, the [place], and RSNA.Radiology: Cardiothoracic Imaging dated 11/16/2019 [email or web address]://pubs.rsna.org/doi/[email or web address]/[email or web address] THIS IS AN ELECTRONICALLY VERIFIED FINAL REPORT 08/24/2020 12:52 AM - Electronically signed by Alvaro Ballard BB: MICHELLE Report ID: [id number] Reading Location: [place] [address] REPORT ELECTRONICALLY SIGNED IN OTHER VENDOR SYSTEM us Daphney Rasmussen MD IMG CT PROCEDURES Final Resu lt * XR Chest 1 View (08/23/2020 12:00 AM FILLING AND PACKING SUPERVISOR) Anatomical Region Laterality Modality Body, Chest N/A Radiographic Padma ging 08/23/2020 9:31 PM FILLING AND PACKING SUPERVISOR Narrative 08/23/2020 9:32 PM FILLING AND PACKING SUPERVISOR Patient Name: MATTHEW WRIGHT ?Ordering Dr: Daphney Rasmussen MD ?? D.O.B: 1970 ? Exam Date: //20 ?? 0000 ?? Age: 50 ?Sex: Male ? MR#: [id number] ?? Loc: ? RADIOLOGY REPORT ?? Order #[id number] ?? Radiology ? Chest 1 View Portable [...] T: ??08/23/2020 9:32 PM ? Report ID: [id number] ?? Reading Location: ??[id number] ? REPORT ELECTRONICALLY SIGNED IN OTHER VENDOR SYSTEM ?? Resulting Agency Comment E Procedure Note Agustín Burden MD - 08/23/2020 Patient Name: MATTHEW WRIGHT Dr: Daphney Rasmussen MD D.O.B: 1970 Exam Date: 08/23/20 0000 Age: 50 Sex: Male MR#: [id number] Loc: RADIOLOGY REPORT Order #[id number] Radiology Chest 1 View Portable Signed EXAM [...] by Agustín Burden M.D. AB: Report ID: [id number] Reading Location: [place] [address] REPORT ELECTRONICALLY SIGNED IN OTHER VENDOR SYSTEM us Daphney Rasmussen MD IMG XR PROCEDURES Final Resu lt documented in this encounter Visit Diagnoses Not on filedocumented in this encounter Additional Health Concerns Infection Onset Date Last Indicated Resolved Time COVID19 08/23/2020 08/23/2020 09/06/2020 3:07 AM FILLING AND PACKING SUPERVISOR documented as of this encounter Care Teams Coding Advisor Relationship Specialty Start Date End Date April Gresham NP PCP - General 08/17/20 09/09/20 Monique Garcia MD Referring Physician Gastroenterology 06/11/20 Monique Garcia MD Referring Physician Gastroenterology 06/11/20 documented as of this encounter
--- OUTSIDE RECORDS SUMMARY | 2024-09-03 12:20 | XMS_ITS | Encounter Summary ---
Author Organization [facility] Healthcare Address [facility] [place] [address] Care Team Providers Care Radiography Technician Name Role Phone Monique Garcia MD Unavailable [phone] Monique Garcia MD Unavailable [phone] Nathan Martinez MD Primary Care Provider [phone] Encounter Details Date Type Department Care Team (Late st Contact Info) Description 10/08/2020 11:33 AM [facility] - 10/08/2020 4:55 PM [facility] Emergency [facility] Emergency Department [address] [place] [address] Unknown, NotinfMaura Khan MD [address] [facility] [address] [place] [address] Laura Nolen, MOTORCYCLE TESTER [address] [facility] [place] [address] Discharge Disposition: Discharge to home or self [...] Comments Blood Pressure 150/93 10/08/2020 11:38 AM DIRECTOR ADVERTISING Pulse 83 10/08/2020 11:38 AM DIRECTOR ADVERTISING Temperature 35.9 ??C (96.6 ??F) 10/08/2020 11:[address] Respiratory Rate - - Oxygen Saturation 97% 10/08/2020 11:38 AM DIRECTOR ADVERTISING Inhaled Oxygen Concentration - - Weight 92.6 kg (204 lb 2.4 oz) 10/08/2020 11:38 AM DIRECTOR ADVERTISING Height 180.3 cm (5' 11 ) 10/08/2020 11:38 AM DIRECTOR ADVERTISING Body Mass Index 28.47 10/08/2020 11:38 AM DIRECTOR ADVERTISING documented in this encounter Medications at Time [...] Comments SCAN - LABS 10/10/2020 12:00 AM DIRECTOR ADVERTISING URINALYSIS AND REFLEX TO MICROSCOPIC AND CULTURE Routine 10/08/2020 2:33 PM DIRECTOR ADVERTISING CBC WITH AUTO DIFFERENTIAL Routine 10/08/2020 12:08 PM DIRECTOR ADVERTISING APTT Routine 10/08/2020 12:08 PM DIRECTOR ADVERTISING PROTIME-INR Routine 10/08/2020 12:08 PM DIRECTOR ADVERTISING ANTIBODY SCREEN Routine 10/08/2020 12:08 PM DIRECTOR ADVERTISING TYPE AND SCREEN Routine 10/08/2020 12:08 PM DIRECTOR ADVERTISING LIPASE Routine 10/08/2020 12:08 PM DIRECTOR ADVERTISING COMPREHENSIVE METABOLIC PANEL Routine 10/08/2020 12:[address] ABDOMEN PELVIS W CONTRAST 10/08/2020 12:00 AM DIRECTOR ADVERTISING documented in this encounter Results * SCAN - LABS (10/10/2020 12:00 AM DIRECTOR ADVERTISING) Narrative 10/10/2020 12:00 AM DIRECTOR ADVERTISING Ordered by an unspecified provider. us Historical Provider MD Final Res ult * (ABNORMAL) Urinalysis reflex to microscopic and culture (10/08/2020 2:33 PM DIRECTOR ADVERTISING) Ur Collection Type OTHER [facility] Ur Culture Indicated? C S NOT INDICATED [facility] Urine Color STRAW YELLOW [facility] Urine Clarity CLEAR [facility] Urine Glucose (UA) >=500(A) NORMAL mg/dL [facility] Urine Bilirubin NEGATIVE NEGATIVE mg/dl [facility] Urine Ketones NEGATIVE NEGATIVE mg/dL [facility] Ur Specific [place] 1.017 1.005 - 1.025 [facility] Urine Blood NEGATIVE NEGATIVE mg/dl [facility] Urine pH 6.0 5.0 - 8.0 [facility] Urine Protein NEGATIVE NEGATIVE mg/dL [facility] Urine Urobilinogen NORMAL NORMAL mg/dL [facility] Urine Nitrite NEGATIVE NEGATIVE [facility] Ur Leukocyte Esterase NEGATIVE NEGATIVE Rosy/ul [facility] Ur Microscopic Review Not Indicated [facility] Urine RBC 0-2 0 - 2 /HPF [facility] Urine WBC 0-5 0 - 2 /HPF [facility] 10/08/2020 2:33 PM DIRECTOR ADVERTISING 10/08/2020 3:38 PM DIRECTOR ADVERTISING Narrative [facility] - 10/08/2020 4:18 PM DIRECTOR ADVERTISING Indication(s) for ordering ?? Other - enter in comments pm Other Resulting Agency Comment ER us Laura Nolen NP LAB MICROBIOLOGY - GENERAL [facility] Final Result Performing Organization Address City/[facility]/ZIP Co de Phone Number [address] [phone] * Antibody screen (10/08/2020 12:08 PM DIRECTOR ADVERTISING) Antibody Screen NEGATIVE [facility] 10/08/2020 12:0 8 PM DIRECTOR ADVERTISING 10/08/2020 12:20 PM DIRECTOR ADVERTISING Narrative Resulting Agency Comment ER us Laura Nolen NP LAB BLOOD BANK TEST ORDERABLES Final Result Performing Organization Address City/[facility]/ZIP Co de Phone Number [address] [phone] * Type and screen (10/08/2020 12:08 PM DIRECTOR ADVERTISING) Blood Type AP [facility] 10/08/2020 12:0 8 PM DIRECTOR ADVERTISING 10/08/2020 12:20 PM DIRECTOR ADVERTISING Narrative [facility] - 10/08/2020 1:24 PM DIRECTOR ADVERTISING N Resulting Agency Comment ER us Laura Nolen NP LAB BLOOD BANK TEST ORDERABLES Final Result Performing Organization Address City/[facility]/ZIP Co de Phone Number [facility] [address] [phone] * (ABNORMAL) Lipase (10/08/2020 12:08 PM DIRECTOR ADVERTISING) Lipase 75(H) 13 - 60 U/L [facility] 10/08/2020 12:0 8 PM DIRECTOR ADVERTISING 10/08/2020 12:20 PM DIRECTOR ADVERTISING Narrative Resulting Agency Comment ER us Laura Nolen MOTORCYCLE TESTER LAB BLOOD ORDERABLES Final Resu lt Performing Organization Address [facility] de Phone Number [facility] [address] [place] [address] * (ABNORMAL) Comprehensive metabolic panel (10/08/2020 12:08 PM DIRECTOR ADVERTISING) Pathologist [facility] Sodium 135 135 - 145 mmol/L [facility] Potassium 4.2 3.3 - 5.1 mmol/L [facility] Chloride 98 96 - 108 mmol/L [facility] Carbon Dioxide 28 22 - 32 mmol/L [facility] Anion Gap 9 7 - 16 [facility] Glucose 387(H) 70 - 100 mg/dL [facility] BUN 9 8 - 25 mg/dL [facility] Creatinine 0.9 0.5 - 1.3 mg/dL [facility] Comment: NOTE: Estimated GFR (Cockroft-Gault) will NOT be calculated unless patient Height and Weight were entered. Also, Kidney Disease Stage (GFR) and Estimated GFR (Cockroft-Gault) will NOT be calculated if Creatinine result is <0.2. Kidney Disease Stage >90 mL/MIN [facility] Comment: NOTE; ??The GFR is an estimated [...] on dialysis Est GFR (Cockcroft-G) 113 ml/MIN [facility] Comment: Estimated GFR(Cockroft-Gault)is used to calculate patient medication dosage Calcium 9.0 8.6 - 10.3 mg/dL [facility] Total Protein 7.6 6.4 - 8.3 g/dL [facility] Albumin 4.5 3.5 - 5.0 g/dL [facility] Globulin 3.1 2.3 - 3.5 gm/dL [facility] Albumin/Globulin Ratio 1.5 1.1 - 1.8 [facility] Total Bilirubin 0.2 0.0 - 1.2 mg/dL [facility] AST 17 0 - 40 U/L [facility] ALT 29 0 - 41 U/L [facility] Alkaline Phosphatase 82 40 - 129 U/L [facility] 10/08/2020 12:0 8 PM DIRECTOR ADVERTISING 10/08/2020 12:20 PM DIRECTOR ADVERTISING Narrative Resulting Agency Comment ER us Laura Nolen MOTORCYCLE TESTER LAB BLOOD [place] [address], [facility] [phone] * aPTT (10/08/2020 12:08 PM DIRECTOR ADVERTISING) APTT 28 23 - 38 SECONDS [facility] Comment: New reference ranges in use 05-23-2020. 10/08/2020 12:0 8 PM DIRECTOR ADVERTISING 10/08/2020 12:20 PM DIRECTOR ADVERTISING Narrative Resulting Agency Comment ER Laura Nolen NP LAB BLOOD ORDERABLES Final Resu lt Performing Organization Address [facility] de Phone Number [facility] [address] [place] [address] * Protime-INR (10/08/2020 12:08 PM DIRECTOR ADVERTISING) Pathologist [facility] PT 13.1 12.3 - 15.1 SECONDS [facility] Comment: New reference ranges in use 05-23-2020. INR 0.95 [facility] Comment: Recommended Therapeutic range for Oral Anticoagulant Therapy No anti-coagulation therapy ? Normal Range: ?0.8-1.4 Anti-coagulation therapy ? Low intensity therapy ?2.0-3.0 ? High intensity therapy ?? 2.5-3.5 Critical Value ? Greater than or equal to 5.0 Patients should be monitored for serious bleeding. 10/08/2020 12:0 8 PM DIRECTOR ADVERTISING 10/08/2020 12:20 PM DIRECTOR ADVERTISING Narrative Resulting Agency Comment ER Laura Nolen NP LAB BLOOD ORDERABLES Final Resu lt Performing Organization Address [facility] de Phone Number [address] [phone] * (ABNORMAL) CBC with auto differential (10/08/2020 12:08 PM DIRECTOR ADVERTISING) Pathologist [facility] WBC 4.1 3.8 - 9.9 X10 3/ul [facility] RBC 5.37 4.30 - 5.80 x10 6/ul [facility] Hemoglobin 14.0 13.0 - 17.5 g/dL [facility] Hct 43.0 38.9 - 50.3 % [facility] MCV 80.1(L) 81.3 - 96.4 fl [facility] MCH 26.1(L) 27.1 - 33.3 pg [facility] MCHC 32.6 32.3 - 35.7 g/dl [facility] RDW 14.6 11.1 - 14.9 % [facility] Plt Count 275 150 - 400 x10 3/ul [facility] MPV 9.6 9.1 - 12.3 fl [facility] Neut % 59.0 % [facility] [employer] Immature Gran % 0.2 % [facility] Lymph % 31.7 % [facility] [place] % 6.9 % [facility] [employer] Eos % 1.5 % [facility] [employer] AUTO BASO % 0.7 % [facility] NEUTROPHIL ABS # 2.4 1.7 - 6.5 x10 3/ul [facility] Immature Gran # 0.0 0.0 - 0.1 x10 3/ul [facility] Absolute Lymphs (auto) 1.3 0.8 - 3.3 x10 3/ul [facility] Absolute Monos (auto) 0.3 0.2 - 0.8 x10 3/ul [facility] Absolute Eos (auto) 0.1 0.0 - 0.5 x10 3/ul [facility] BASOPHIL ABS # 0.0 0.0 - 0.1 x10 3/ul [facility] Nucleat RBC Rel Count 0.0 #/100WBC [facility] NRBC abs 0.00 0.00 - 0.01 x10 3/ul [facility] Absolute Neutrophils 2,400 200 - 8,000 /ul [facility] 10/08/2020 12:0 8 PM DIRECTOR ADVERTISING 10/08/2020 12:20 PM DIRECTOR ADVERTISING Narrative Resulting Agency Comment ER us Laura Nolen MOTORCYCLE TESTER LAB BLOOD ORDERABLES Final Resu lt [facility] [address] [phone] * CT Abdomen Pelvis W Contrast (10/08/2020 12:00 AM DIRECTOR ADVERTISING) Anatomical Region Laterality Modality Body N/A Computed Tomogra phy 10/08/2020 1:37 PM DIRECTOR ADVERTISING Narrative 10/08/2020 2:06 PM DIRECTOR ADVERTISING Patient Name: MATTHEW WRIGHT ?Ordering Dr: Laura Nolen ANP ?? D.O.B: 1970 ? Exam Date: 10/08/20 ?? 0000 ?? Age: 50 ?Sex: Male ? MR#: [id number] ?? Loc: ? RADIOLOGY REPORT ?? Order #[id number] ?? CT Scan ? CT Abd/Pelvis W [...] T: ??10/08/2020 2:06 PM ? Report ID: [id number] ?? Reading Location: ??[id number] ? REPORT ELECTRONICALLY SIGNED IN OTHER VENDOR SYSTEM ?? Resulting Agency Comment E Procedure Note Blu Boogie MD - 10/08/2020 Patient Name: MATTHEW WRIGHT Pop Dr: Laura NolenOMarjorieB: 1970 Exam Date: 10/08/20 0000 Age: 50 Sex: Male MR#: [id number] [id number] Order #[id number] CT Scan CT Abd/Pelvis W IV Contrast [...] Blu Boogie M.D. RS: MIHIR Report ID: [id number] Reading Location: [place] [address] REPORT ELECTRONICALLY SIGNED IN OTHER VENDOR SYSTEM Laura Nolen MOTORCYCLE TESTER IMG CT PROCEDURES Final Result documented in this encounter Visit Diagnoses Not on filedocumented in this encounter Additional Health Concerns Infection Onset Date Last Indicated Resolved Time COVID: Recovered Comment:Added based on recent COVID infection. 09/06/2020 09/07/2020 01/04/2021 3:05 AM C DT documented as of this encounter Care Teams Radiography Technician Relationship Specialty Start Date End Date Nathan Martinez MD PCP - General Family Practice 09/10/20 Monique Garcia MD Referring Physician Gastroenterology 06/11/20 Monique Garcia MD Referring Physician Gastroenterology 06/11/20 documented as of this encounter
--- OUTSIDE RECORDS SUMMARY | 2024-09-03 12:20 | XMS_ITS | Encounter Summary ---
Author Organization [facility] Address [address] [place] [address] [address] [place] [address] Care Team Providers Care Property Claims Adjuster Name Role Phone Monique Garcia MD Unavailable [phone] Monique Gracia MD Unavailable [phone] April Gresham NP Primary Care Provider [phone] Reason for Visit * Reason Onset Date Comments Covid-19 Home Monitoring 08/24/2020 Encounter Details Date Type Department Care Team (Late st Contact Info) Description 08/24/2020 Telephone [facility] Accountable Care Organization [address] [place] [id number] Tami Rooney MA [address] [place] [address] [address] [place] [address] Covid-19 Home Monitoring Social History Tobacco Use [...] time, we willreevaluate them for home monitoring. ER BULLET SECTION SUPERVISOR documented in this encounter Plan of Treatment Not on file documented as of this encounter Visit Diagnoses Not on filedocumented in this encounter Additional Health Concerns Infection Onset Date Last Indicated Resolved Time COVID19 08/23/2020 08/23/2020 09/06/2020 3:07 AM TRACER BULLET SECTION SUPERVISOR documented as of this encounter Care Teams Property Claims Adjuster Relationship Specialty Start Date End Date April Gresham NP PCP - General 08/17/20 09/09/20 Monique Garcia MD Referring Physician Gastroenterology 06/11/20 Monique Garcia MD Referring Physician Gastroenterology 06/11/20 documented as of this encounter
--- OUTSIDE RECORDS SUMMARY | 2024-09-03 12:20 | XMS_ITS | Encounter Summary ---
Author Organization [facility] Healthcare Address [address] [place] [address] Care Team Providers Care Shipper Name Role Phone Nathan Martinez MD Primary Care Provider [phone] Encounter Details Date Type Department Care Team (Late st Contact Info) Description 06/04/2020 12:10 PM CDT - 06/04/2020 3:53 PM CDT Hospital Encounter [facility] Emergency Department [address] [place], [place] [id number] Unknown, Mikaela Zaragoza, Humberto Nicholson MD [address] [place] [address] Discharge Disposition: Discharge to home or self [...] ?? Age: 50 ?Sex: Male ? MR#: [id number] ?? Loc: ? RADIOLOGY REPORT ?? Order #[id number] ?? CT Scan ? CT Abd/Pelvis W [...] T: ??06/04/2020 3:18 PM ? Report ID: [id number] ?? Reading Location: ??[id number] ? REPORT ELECTRONICALLY SIGNED IN OTHER VENDOR SYSTEM ?? Resulting Agency Comment E Procedure Note Lyn Campbell MD - 06/04/2020 Patient Name: MATTHEW WRIGHT Dr: Jennifer Watters PA-C, D.O.B: 1970 Exam Date: 06/04/20 1440 Age: 50 Sex: Male MR#: [id number] Loc: RADIOLOGY REPORT Order #[id number] CT Scan CT Abd/Pelvis W IV Contrast [...] Lyn Campbell M.D. SS: SS Report ID: [id number] Reading Location: [place] [address] REPORT ELECTRONICALLY SIGNED IN OTHER VENDOR SYSTEM Jennifer MONTENEGRO IMG CT PROCEDURES F inal Result * Lipase (06/04/2020 1:33 PM CDT) [facility] Lipase 42 13 - 60 U/L [facility] 06/04/2020 1:33 PM CDT 06/04/2020 1:37 PM CDT Narrative Resulting Agency Comment ER Jennifer MONTENEGRO LAB BLOOD ORDERABLE S Final Result [address] [phone] * (ABNORMAL) Comprehensive metabolic panel (06/04/2020 1:33 PM CDT) Pathologist [facility] Sodium 134(L) 135 - 145 mmol/L [facility] Potassium 3.8 3.3 - 5.1 mmol/L [facility] Chloride 97 96 - 108 mmol/L [facility] Carbon Dioxide 26 22 - 32 mmol/L [facility] Anion Gap 11 7 - 16 [facility] Glucose 253(H) 70 - 100 mg/dL [facility] BUN 10 8 - 25 mg/dL [facility] Creatinine 1.1 0.5 - 1.3 mg/dL [facility] Comment: NOTE: Estimated GFR (Cockroft-Gault) will NOT be calculated unless patient Height and Weight were entered. Also, Kidney Disease Stage (GFR) and Estimated GFR (Cockroft-Gault) will NOT be calculated if Creatinine result is <0.2. Kidney Disease Stage 75 mL/MIN [facility] Comment: NOTE; ??The GFR is an [...] on dialysis Est GFR (Cockcroft-G) 93 ml/MIN [facility] Comment: Estimated GFR(Cockroft-Gault)is used to calculate patient medication dosage Calcium 9.8 8.6 - 10.3 mg/dL [facility] Total Protein 7.5 6.4 - 8.3 g/dL [facility] Albumin 4.4 3.5 - 5.0 g/dL [facility] Globulin 3.1 2.3 - 3.5 gm/dL [facility] Albumin/Globulin Ratio 1.4 1.1 - 1.8 [facility] Total Bilirubin 0.2 0.0 - 1.2 mg/dL [facility] AST 20 0 - 40 U/L [facility] ALT 35 0 - 41 U/L [facility] Alkaline Phosphatase 70 40 - 129 U/L [facility] 06/04/2020 1:33 PM CDT 06/04/2020 1:37 PM CDT Narrative Resulting Agency Comment ER us Jennifer MONTENEGRO LAB BLOOD ORDERABLE S Final Result [facility] [address] [place] [address], [facility] [phone] * (ABNORMAL) CBC with auto differential (06/04/2020 1:33 PM CDT) WBC 5.7 3.8 - 9.9 X10 3/ul [facility] RBC 5.47 4.30 - 5.80 x10 6/ul [facility] Hemoglobin 14.6 13.0 - 17.5 g/dL [facility] Hct 43.4 38.9 - 50.3 % [facility] MCV 79.3(L) 81.3 - 96.4 fl [facility] MCH 26.7(L) 27.1 - 33.3 pg [facility] MCHC 33.6 32.3 - 35.7 g/dl [facility] RDW 14.0 11.1 - 14.9 % [facility] Plt Count 256 150 - 400 x10 3/ul [facility] MPV 9.1 9.1 - 12.3 fl [facility] Neut % 63.9 % [facility] - [facility] Immature Gran % 0.4 % [facility] Lymph % 28.2 % [facility] - [facility] [place] % 6.1 % [facility] AST - [facility] Eos % 0.7 % [facility] AUTO BASO % 0.7 % [facility] NEUTROPHIL ABS # 3.7 1.7 - 6.5 x10 3/ul [facility] Immature Gran # 0.0 0.0 - 0.1 x10 3/ul [facility] Absolute Lymphs (auto) 1.6 0.8 - 3.3 x10 3/ul [facility] Absolute Monos (auto) 0.4 0.2 - 0.8 x10 3/ul [facility] Absolute Eos (auto) 0.0 0.0 - 0.5 x10 3/ul [facility] BASOPHIL ABS # 0.0 0.0 - 0.1 x10 3/ul [facility] Nucleat RBC Rel Count 0.0 #/100WBC [facility] NRBC abs 0.00 0.00 - 0.01 x10 3/ul [facility] Absolute Neutrophils 3,700 200 - 8,000 /ul [facility] 06/04/2020 1:33 PM CDT 06/04/2020 1:37 PM CDT Narrative Resulting Agency Comment ER Jennifer MONTENEGRO LAB BLOOD ORDERABLE S Final Result [address] [phone] * (ABNORMAL) URINALYSIS, COMPLETE W/REFLEX TO CULTURE (06/04/2020 1:30 PM CDT) Ur Collection Type CLEAN CATCH [facility] Ur Culture Indicated? C S NOT INDICATED [facility] Urine Color YELLOW YELLOW [facility] Urine Clarity CLEAR CLEAR [facility] Urine Glucose (UA) >=500(A) NORMAL mg/dL [facility] Urine Bilirubin NEGATIVE NEGATIVE mg/dl [facility] Urine Ketones 5(A) NEGATIVE mg/dL [facility] Ur Specific [place] 1.016 1.005 - 1.025 [facility] Urine Blood NEGATIVE NEGATIVE mg/dl [facility] Urine pH 6.0 5.0 - 8.0 [facility] Urine Protein NEGATIVE NEGATIVE mg/dL [facility] Urine Urobilinogen NORMAL NORMAL mg/dL [facility] Urine Nitrite NEGATIVE NEGATIVE [facility] Ur Leukocyte Esterase NEGATIVE NEGATIVE Rosy/ul [facility] Ur Microscopic Review Indicated or Ordered [facility] Urine RBC 1-5 0 - 2 /HPF [facility] Urine WBC 1-5 0 - 2 /HPF [facility] Ur Squamous Epith Cells 1-5 /LPF [facility] 06/04/2020 1:30 PM CDT 06/04/2020 1:39 PM CDT Narrative [facility] - 06/04/2020 2:01 PM CDT Indication(s) for ordering ?? Dysuria re Clean catch Resulting Agency Comment ER us Jennifer MONTENEGRO LAB URINE ORDERABLE S Final Result [facility] [address] [place] [address] documented in this encounter Visit Diagnoses Not on filedocumented in this encounter Care Teams Shipper Relationship Specialty Start Date End Date Nathan Martinez MD PCP - General Family Practice 05/23/20 06/10/20 documented as of this encounter
--- OUTSIDE RECORDS SUMMARY | 2024-09-03 12:25 | XMS_ITS ---
Author Name Interface, [id number] lity Address [address] [place] [address] [facility] ecialists, LAN Address [address] [place] [address] Care Team Providers Care Mma Fighter Name Role Phone Mata Ledezma Unavailable Unavailable [...]
--- OUTSIDE RECORDS SUMMARY | 2024-09-03 12:25 | XMS_ITS | CCD ---
Author Name Interface, [id number] [facility] Address [address] [place] [address] [facility] LAN lui Address [address] [place] [address] Care Team Providers Care [place] Hand Name Role Phone Mata Ledezma Unavailable Unavailable Reason for Visit Encounters Medications Problems Social History
== END 2024-08-27 12:13 | disposition home or self-care (01) ==
PROVIDERS: Emergency Provider Emergency Medicine; PCP Family Medicine
DX: R10.9 Unspecified abdominal pain (principal); E11.9 Type 2 diabetes mellitus without complications; F32.A Depression, unspecified; F43.10 Post-traumatic stress disorder, unspecified; Z79.85 Long-term (current) use of injectable non-insulin antidiabetic drugs; Z79.899 Other long term (current) drug therapy; Z90.49 Acquired absence of other specified parts of digestive tract
CPT/HCPCS: 36415; 74177; 80053; 81003; 83690; 85025; 96361; 96374; 96375; 99284; J2405; J3010; J7030; Q9967

== ENCOUNTER 2024-10-10 16:51 | Emergency (ER) | payer OTHER, SELFPAY ==
--- NOTE | ~2024-10-10 | CT_ITS ---
EXAMINATION: CT abdomen pelvis w con DATE: 10/10/2024 22:28 INDICATION: abd pain, nausea, constipation TECHNIQUE: Computed tomography (CT) of the abdomen and pelvis was performed with 100 mL Omnipaque-350 intravenous contrast. Automated exposure control and iterative reconstruction technique were employe d. The dose-length product was 852.51 mGy-cm. COMPARISON: 08/27/2024. FINDINGS: Lower thorax: Right upper lobe air cyst/bleb. Minimal bibasilar atelectasis. Coronary artery calcific ations. Liver: Diffusely low-density parenchyma. Biliary/Gallbladder: Gallbladder is absent. No bile duct dilation. Pancreas: Mild atrophy. Spleen: Normal. Adrenals:No mass. Kidneys: No suspicious mass, obstructing stone, or hydronephrosis. GI tract: Mild distal esophageal and antral wall edema. No large bowel dilation. Mild dilation and wa ll thickening in the proximal jejunum. Status post appendectomy. Uncomplicated appearing distal sigmo id anastomosis. Mesentery/Peritoneum: No ascites, mass, or free air. Retroperitoneum: No mass. Atherosclerotic calcifications of intra-abdominal arterial vessels. Pelvis: Mild urinary bladder wall thickening. Mild prostatomegaly.. Soft Tissues: Small uncomplicated fat-containing umbilical hernia. Small uncomplicated fat-containing left inguinal hernia, status post repair. Bones: No acute osseous finding. IMPRESSION: Mild esophagitis and antral gastritis. Hepatic steatosis. Mild proximal jejunal dilation and wall thickening as can be seen with enteritis. Urinary bladder wall thickening may be secondary to cystitis or outlet obstruction from mild prostato megaly. Reviewed, dictated and finalized at location K. RIFUGAL SEPARATOR IMPRESSION: Mild esophagitis and antral gastritis. Hepatic steatosis. Mild proximal jejunal dilation and wall thickening as can be seen with enteriti s. Urinary bladder wall thickening may be secondary to cystitis or outlet obstruct ion from mild prostatomegaly.
[2024-10-10 17:21] VITALS: BP 125/81; PULSE 91; RESP 16; TEMP 36.6; O2SAT 98
--- NOTE | 2024-10-10 18:09 | ED.ABDPAIN ---
HPI - Abdominal Pain General Chief Complaint: Abdominal Pain <GABRIEL Rivas Last Filed: 10/10/24 18:16> Stated Complaint: abd pain hx blockage <GABRIEL Rivas Last Filed: 10/10/24 18:16> Time Seen by Provider: 10/10/24 18:09 <GABRIEL Rivas Last Filed: 10/10/24 18:16> Focused HPI: Patient is a 54 y/o male who presents to the ED with c/o abdominal pain. Patient has hx of recurrent SBO, adhesions, sigmoidectomy, cholecystectomy, diverticulitis, Yordy fundoplication, hernia repair. Began having worsening pain in his lower and left sided abdominal pain on Thursday. Last had a blockage in May of last year, but states current pain feels similar. Reports nausea. Denies vomiting, but notes he has had a previous Yordy and is unable to vomit. Reports constipation, last BM was on Thursday morning. Also c/o weakness, shakiness, decreased appetite. Denies fevers. GENERAL: Well-appearing, well-nourished, and in no acute distress. HEAD: Normocephalic, atraumatic. CHEST: Clear to auscultation. ?No respiratory distress. HEART: Regular rate and rhythm.? ABD: Diffuse tenderness throughout abdomen. No rebound. Nondistended. Normoactive BS. NEURO: ?Alert and oriented x3. Patient screened in triage and initial orders placed.? ?Additional care and disposition to be based upon?diagnostic testing and treatment. <GABRIEL Rivas Last Filed: 10/10/24 18:16> Source: patient <GABRIEL Rivas Last Filed: 10/10/24 18:16> Mode of arrival: ambulatory <GABRIEL Rivas Last Filed: 10/10/24 18:16> Limitations: no limitations <GABRIEL Rivas Last Filed: 10/10/24 18:16> Related Data Home Medications: Home Medications ?Medication ?Instructions ?Recorded ?Confirmed ?Last Taken ?Type escitalopram oxalate 20 mg tablet 20 mg PO DAILY 07/18/21 08/27/24 08/25/24 History modafinil 100 mg tablet 100 mg PO DAILY PRN Systemic Signs 07/18/21 08/27/24 08/18/24 History And Symptoms trazodone 100 mg tablet 100 mg PO HS 07/18/21 08/27/24 08/25/24 History famotidine 20 mg tablet (Pepcid AC) 20 mg PO DAILY PRN Indigestion 02/02/23 08/27/24 Unknown History semaglutide 1 mg/dose (4 mg/3 mL) 1 mg subcut WEEKLY 08/27/24 08/27/24 08/21/24 History subcutaneous pen injector (Ozempic) <Ann Bravo PA-C - Last Filed: 10/10/24 18:16> Allergies/Adverse Reactions: Allergies Allergy/AdvReac Type Severity Reaction Status Date / Time gabapentin Allergy Anxiety Verified 10/10/24 17:24 ketorolac (From Toradol) Allergy Hives Verified 10/10/24 17:24 promethazine (From Phenergan) Allergy Anxiety Verified 10/10/24 17:24 zolpidem (From Ambien) AdvReac Other Verified 10/10/24 17:24 <Ann Bravo PA-C - Last Filed: 10/10/24 18:16> [facility] Past Medical History Medical History: Medical History Posttraumatic stress disorder Type 2 diabetes mellitus History of small bowel obstruction Depression Diverticulitis <Ann Bravo PA-C - Last Filed: 10/10/24 18:16> Surgical History Surgical History: Surgical History History of orthopedic surgery Right ankle and hand surgery. History of laparoscopic appendectomy Status post laparoscopic Ludmila fundoplication History of laparoscopic cholecystectomy History of exploratory laparotomy With adhesiolysis for small bowel obstruction 3-4 years ago in [place]. History of colon resection Sigmoid colon resection for diverticulitis 6-7 years ago in [place]. <GABRIEL Rivas Last Filed: 10/10/24 18:16> Family History Family History: Family History Father Heart disease Grandparent Lung cancer <Ann Bravo PA-C - Last Filed: 10/10/24 18:16> Social History Social History: Social History Social History: Surrogate medical decision maker: Annelise Garcia, significant other. Code status: Full code. Smoking status: Never smoker Alcohol intake: never Substance use: never Substance use type: does not use Do You Feel Safe in your Home?: Yes Lack of Transportation: No Lack of Food: Never True Current Housing: I Have Housing Concerned About Future Housing: No Difficulty Paying Gas/Electric Bills: No Difficulty Paying for Meds: No Currently Unemployed: No Education: High School Diploma/GED Difficulty w/ Childcare or Family Care: No Additional living arrangements comments: Lives in [place] with significant other. He has 1 son. Additional occupation/education comments: Served in the [employer]. 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 Spiritual care concerns: No <Ann Bravo PA-C - Last Filed: 10/10/24 18:16> Exam Narrative: APPEARANCE: No apparent distress. Head: atraumatic. EYES: EOMI, NOSE: Atraumatic NECK: Trachea midline RESPIRATORY: No increased rate of breathing CARDIOVASCULAR: RRR, ABDOMINAL: Soft, nondistended, no guarding rebound MUSCULOSKELETAl: No obvious deformities NEURO: Alert. Moving 4/4 extremities SKIN:: Warm, dry. Normal color PSYCHIATRIC: Normal affect <Abdon Coronado MD - Last Filed: 10/10/24 23:26> Course Vital Signs Vital signs: Vital Signs Temperature 97.8 F 10/10/24 17:21 Pulse Rate 91 10/10/24 17:21 Respiratory Rate 16 10/10/24 17:21 Blood Pressure 125/81 10/10/24 17:21 Pulse Oximetry 98 10/10/24 17:21 Oxygen Delivery Room Air 10/10/24 17:21 Temperature 97.8 F 10/10/24 17:21 Pulse Rate 91 10/10/24 17:21 Respiratory Rate 16 10/10/24 17:21 Blood Pressure 125/81 10/10/24 17:21 Pulse Oximetry 98 10/10/24 17:21 Oxygen Delivery Room Air 10/10/24 17:21 <Ann Bravo PA-C - Last Filed: 10/10/24 18:16> Vital Signs Temperature 97.8 F 10/10/24 17:21 Pulse Rate 91 10/10/24 17:21 Respiratory Rate 16 10/10/24 17:21 Blood Pressure 125/81 10/10/24 17:21 Pulse Oximetry 98 10/10/24 17:21 Oxygen Delivery Room Air 10/10/24 17:21 Temperature 97.8 F 10/10/24 17:21 Pulse Rate 91 10/10/24 17:21 Respiratory Rate 16 10/10/24 17:21 Blood Pressure 125/81 10/10/24 17:21 Pulse Oximetry 98 10/10/24 17:21 Oxygen Delivery Room Air 10/10/24 17:21 <Abdon Coronado MD - Last Filed: 10/10/24 23:26> MDM - Abdominal Pain MDM Narrative Medical decision making narrative: MSE by ERIC in triage. <Ann Bravo PA-C - Last Filed: 10/10/24 18:16> MSE by ERIC in triage. -Course: 54-year-old male with chronic abdominal presenting presenting with his typical symptoms. CT showed gastritis but small-bowel obstruction. Patient requested pain medications. No indication for opiates in my opinion. He was offered other options and refused. Patient be discharged with return precautions -DDX includes but is not limited to: Gastritis, small-bowel obstruction, enteritis, ileus, drug-seeking <Abdon Coronado MD - Last Filed: 10/10/24 23:26> Lab Data Result diagrams: 10/10/24 19:26 10/10/24 19:26 <Ann Bravo PA-C - Last Filed: 10/10/24 18:16> Labs: Lab Results 10/10/24 Range/Units 19:26 WBC 5.6 (4.5-10.0) K/mm3 RBC 5.61 (4.6-6.20) M/mm3 Hgb 15.0 (14.0-18.0) g/dL Hct 45.4 (42.0-52.0) % MCV 80.9 (80-100) fl MCH 26.7 (26-34) pg MCHC 33.0 (32-36) g/dl RDW 13.9 (11.5-14.5) % Plt Count 294 (150-375) k/mm3 MPV 9.1 (7.4-10.4) fl Immature Gran % (Auto) 0.2 (0-0.5) % Neut % (Auto) 58.0 (45.5-73.1) % Lymph % (Auto) 33.9 (18.3-44.2) % [facility] % (Auto) 6.2 (2.6-8.5) % Eos % (Auto) 1.2 (0-4.4) % Baso % (Auto) 0.5 (0.2-1.2) % Lymph # (Auto) 1.91 (0.9-3.2) K/mm3 [facility] # (Auto) 0.4 (0.1-0.6) K/mm3 Eos # (Auto) 0.1 (0-0.3) K/mm3 Baso # (Auto) 0.0 (0.0-0.1) K/mm3 Abs Immat Gran (auto) 0.01 (0.00-0.031) K/mm3 Absolute Neuts (auto) 3.3 (1.3-6.7) K/mm3 Absolute Nucleated RBC 0.000 (0.0-0.012) K/mm3 Nucleated RBC % 0.0 (0.0-0.2) % Sodium 139 (137-145) mmol/L Potassium 4.0 (3.4-5.0) mmol/L Chloride 101 (98-107) mmol/L Carbon Dioxide 26 (22-30) mmol/L Anion Gap 12 (4-12) mmol/L BUN 11 (9-20) mg/dL Creatinine 1.02 (0.7-1.3) mg/dL Estim Creat Clear Calc 77 ml/min Estimated GFR > 60 (59 - ) Glucose 103 (65-110) mg/dL Calcium 9.4 (8.4-10.2) mg/dL Total Bilirubin 0.6 (0.2-1.3) mg/dL AST 32 (17-59) U/L ALT 34 (6-50) U/L Alkaline Phosphatase 62 (38-126) U/L Total Protein 8.0 (6.3-8.2) g/dL Albumin 4.6 (3.5-5.1) g/dL Lipase 153 (23-300) U/L <Ann Bravo PA-C - Last Filed: 10/10/24 18:16> Lab Results 10/10/24 Range/Units 19:26 WBC 5.6 (4.5-10.0) K/mm3 RBC 5.61 (4.6-6.20) M/mm3 Hgb 15.0 (14.0-18.0) g/dL Hct 45.4 (42.0-52.0) % MCV 80.9 (80-100) fl MCH 26.7 (26-34) pg MCHC 33.0 (32-36) g/dl RDW 13.9 (11.5-14.5) % Plt Count 294 (150-375) k/mm3 MPV 9.1 (7.4-10.4) fl Immature Gran % (Auto) 0.2 (0-0.5) % Neut % (Auto) 58.0 (45.5-73.1) % Lymph % (Auto) 33.9 (18.3-44.2) % [facility] % (Auto) 6.2 (2.6-8.5) % Eos % (Auto) 1.2 (0-4.4) % Baso % (Auto) 0.5 (0.2-1.2) % Lymph # (Auto) 1.91 (0.9-3.2) K/mm3 [facility] # (Auto) 0.4 (0.1-0.6) K/mm3 Eos # (Auto) 0.1 (0-0.3) K/mm3 Baso # (Auto) 0.0 (0.0-0.1) K/mm3 Abs Immat Gran (auto) 0.01 (0.00-0.031) K/mm3 Absolute Neuts (auto) 3.3 (1.3-6.7) K/mm3 Absolute Nucleated RBC 0.000 (0.0-0.012) K/mm3 Nucleated RBC % 0.0 (0.0-0.2) % Sodium 139 (137-145) mmol/L Potassium 4.0 (3.4-5.0) mmol/L Chloride 101 (98-107) mmol/L Carbon Dioxide 26 (22-30) mmol/L Anion Gap 12 (4-12) mmol/L BUN 11 (9-20) mg/dL Creatinine 1.02 (0.7-1.3) mg/dL Estim Creat Clear Calc 77 ml/min Estimated GFR > 60 (59 - ) Glucose 103 (65-110) mg/dL Calcium 9.4 (8.4-10.2) mg/dL Total Bilirubin 0.6 (0.2-1.3) mg/dL AST 32 (17-59) U/L ALT 34 (6-50) U/L Alkaline Phosphatase 62 (38-126) U/L Total Protein 8.0 (6.3-8.2) g/dL Albumin 4.6 (3.5-5.1) g/dL Lipase 153 (23-300) U/L <Abdon Coronado MD - Last Filed: 10/10/24 23:26> Imaging Data Radiologist's impression: ITS Impressions Abdomen/Pelvis CT 10/10/24 22:39 IMPRESSION: Mild esophagitis and antral gastritis. Hepatic steatosis. Mild proximal jejunal dilation and wall thickening as can be seen with enteritis. Urinary bladder wall thickening may be secondary to cystitis or outlet obstruction from mild prostatomegaly. <Ann Bravo PA-C - Last Filed: 10/10/24 18:16> ITS Impressions Abdomen/Pelvis CT 10/10/24 22:39 IMPRESSION: Mild esophagitis and antral gastritis. Hepatic steatosis. Mild proximal jejunal dilation and wall thickening as can be seen with enteritis. Urinary bladder wall thickening may be secondary to cystitis or outlet obstruction from mild prostatomegaly. <Abdon Coronado MD - Last Filed: 10/10/24 23:26> Discharge Plan Discharge Clinical Impression: Chronic abdominal pain <GABRIEL Rivas Last Filed: 10/10/24 18:16> Patient Disposition: Home, Self-Care <Ann Bravo PA-C - Last Filed: 10/10/24 18:16> Condition: Stable <GABRIEL Rivas Last Filed: 10/10/24 18:16> Instructions: Antibiotic Form, Abdominal Pain (ED) <GABRIEL Rivas Last Filed: 10/10/24 18:16> Additional Instructions: Please follow-up with your primary care physician return if develop severe abdominal pain. <GABRIEL Rivas Last Filed: 10/10/24 18:16> Patient Language: [place] <GABRIEL Rivas Last Filed: 10/10/24 18:16> Prescriptions: No Action trazodone 100 mg tablet 100 mg PO HS modafinil 100 mg tablet 100 mg PO DAILY PRN (Reason: Systemic Signs And Symptoms) Rx Instructions: Takes for ADD escitalopram oxalate 20 mg tablet 20 mg PO DAILY Ozempic 1 mg/dose (4 mg/3 mL) pen injector 1 mg subcut WEEKLY ondansetron 4 mg tablet,disintegrating 4 mg PO Q4H 0 Days Qty: 10 0RF Rx Instructions: give 1st dose 30min before emetogenic chemo dicyclomine 20 mg tablet 20 mg PO QID Qty: 20 0RF famotidine [Pepcid AC] 20 mg tablet 20 mg PO DAILY PRN (Reason: Indigestion) sennosides-docusate sodium [Senokot-S] 8.6-50 mg Tablet 1 tab PO Q12HR PRN (Reason: constipation) Qty: 60 0RF docusate sodium 100 mg Capsule 100 mg PO Q12HR PRN (Reason: constipation) Qty: 60 0RF ondansetron 4 mg tablet,disintegrating 4 mg PO Q6H PRN (Reason: nausea and vomiting) Qty: 30 0RF ondansetron 4 mg tablet,disintegrating 4 mg PO Q8H Qty: 14 0RF ondansetron 4 mg tablet,disintegrating 4 mg PO Q6H PRN (Reason: nausea and vomiting) Qty: 7 0RF docusate sodium 100 mg capsule 100 mg PO BID Qty: 60 0RF polyethylene glycol 3350 17 gram/dose powder 17 g PO DAILY Qty: 238 0RF ondansetron 4 mg tablet,disintegrating 4 mg PO Q8H Qty: 14 0RF omeprazole magnesium [Prilosec OTC] 20 mg tablet,delayed release (DR/EC) 20 mg PO DAILY Qty: 10 0RF <Ann Bravo PA-C - Last Filed: 10/10/24 18:16> Follow-up/Referrals: Juan,Nathan Ramos MD [Primary Care Provider] - <Ann Brvao PA-C - Last Filed: 10/10/24 18:16>
--- OUTSIDE RECORDS SUMMARY | 2024-10-10 18:35 | XMS_ITS ---
Author Name Interface, [id number] lity Address [address] [place] [address] [facility] Address [address] [place] [address] Care Team Providers Care Psychiatric Registered Nurse Name Role Phone Mata Ledezma Unavailable Unavailable [...] Hydrocodone-Terry taminophen Oral 7.5 mg-325 mg active Escitalopram Oral orally 1.0 tablet daily quantity sufficient for 30 days; 3 refills active Trazodone Oral orally 1.0 tablet daily quantity sufficient for 30 days; 2 refills active meloxicam 15 MG Oral Tablet [...]
--- OUTSIDE RECORDS SUMMARY | 2024-10-10 18:35 | XMS_ITS | Patient Health Summary ---
Author Organization [facility] Alexis Bittar Address [address] [place] [address] Care Team Providers Care Multimedia Technician Name Role Phone Unavailable Primary Care Provider Unavailabl e Note from [facility] Alexis Bittar [facility],non-owned Affiliates and Associated Physician Practices is amultiple site organization consisting of ambulatory clinics and hospital sitesin [place], [place], [place] and [place]. This disclosure is being madepursuant to the Care Everywhere program and may not contain all information available regarding this patient. Last updated 18.[facility] Alexis Bittar Allergies No known active allergies Medications * [...] 76 01/12/2015 1:11 PM CDT Temperature 36.4 C (97.5 F) 01/12/2015 1:11 PM CDT Respiratory Rate 18 01/12/2015 1:11 PM CDT [...] OCCULT BLOOD FECES (01/12/2015 2:25 PM CDT) [facility] Occult Blood Negative Negative 01/12/2015 2:46 PM CDT [facility] Stool STOOL SPECIMEN / Unknown 01/12/2015 2:25 PM CDT 01/12/2015 2:41 PM CDT Virginie Weathers [employer] TECHNICIAN LAB - BODY FLUID ORDERABLES Performing Organization Address City/[facility]/ZIP Co de Phone Number [facility] [address] [place] [phone] * (ABNORMAL) GLUCOSE - POINT OF CARE (01/12/2015 12:55 PM CDT) Only the most recent of6 resultswithin the time period is included. [facility] Glucose WB/POC 124(H) 70 - 106 mg/dL 01/12/2015 12:57 PM CDT [facility] Blood BLOOD SPECIMEN / Unknown 01/12/2015 12:55 PM CDT 01/12/2015 12:57 PM CDT Claire Moody MD LAB - POINT OF CARE ORDERABLES Performing Organization Address City/[facility]/ZIP Co de Phone Number [facility] [address] [place] [phone] * (ABNORMAL) CBC W AUTO DIFFERENTIAL (01/12/2015 5:55 AM CDT) Only the most recent of3 resultswithin the time period is included. [facility] WBC 4.0(L) 4.4 - 10.7 x10^9/L 01/12/2015 6:28 AM CDT [facility] WBC Corrected x10^9/L 01/12/2015 6:28 AM CDT [facility] RBC 5.35 3.80 - 5.40 x10^12/L 01/12/2015 6:28 AM CDT [facility] Hemoglobin 13.1 12.0 - 17.6 gm/dL 01/12/2015 6:28 AM [facility] Hematocrit 40.1 35.2 - 51.7 % 01/12/2015 6:28 AM [facility] MCV 75.0(L) 80.7 - 98.3 fl 01/12/2015 6:28 AM [facility] MCH 24.5(L) 26.7 - 34.0 pg 01/12/2015 6:28 AM [facility] MCHC 32.7 30.8 - 35.9 gm/dL 01/12/2015 6:28 AM [facility] Platelet Count 210 153 - 416 x10^9/L 01/12/2015 6:28 AM [facility] RDW-CV 14.4 12.1 - 14.9 % 01/12/2015 6:28 AM [facility] MPV 9.0(L) 9.4 - 12.9 fl 01/12/2015 6:28 AM [facility] Neutrophils % 51.4 44.0 - 73.0 % 01/12/2015 6:28 AM [facility] Lymphocytes % 39.2 20.0 - 43.0 % 01/12/2015 6:28 AM [facility] Monocytes % 6.3 5.0 - 13.0 % 01/12/2015 6:28 AM [facility] Eosinophils % 2.3 0.0 - 6.0 % 01/12/2015 6:28 AM [facility] Basophils % 0.5 0.0 - 2.0 % 01/12/2015 6:28 AM [facility] Immature Granulocytes 0.3 0 - 1 % 01/12/2015 6:28 AM [facility] Neutrophil Absolute 2.05 2.01 - 7.14 x10^9/L 01/12/2015 6:28 AM [facility] Lymphocytes Absolute 1.56 1.07 - 3.94 x10^9/L 01/12/2015 6:28 AM [facility] Monocytes Absolute 0.25(L) 0.26 - 1.07 x10^9/L 01/12/2015 6:28 AM [facility] Eosinophils Absolute 0.09 0 - 0.47 x10^9/L 01/12/2015 6:28 AM [facility] Basophils Absolute 0.02 0 - 0.08 x10^9/L 01/12/2015 6:28 AM [facility] Immature Granulocytes Absolute 0.01 0.00 - 0.06 x10^9/L 01/12/2015 6:28 AM [facility] Blood BLOOD SPECIMEN / Unknown Lab Venipuncture / Unknown 01/12/2015 5:55 AM CDT 01/12/2015 6:13 AM CDT Claire Moody MD LAB - HEMATO LOGY ORDERABLES [facility] [address] [place] [address] * (ABNORMAL) BASIC METABOLIC PANEL (CALCIUM TOTAL) (01/12/2015 5:55 AM CDT) Glucose 158(H) 74 - 106 mg/dL 01/12/2015 6:31 AM [facility] Sodium 134(L) 136 - 145 mmol/L 01/12/2015 6:31 AM [facility] Potassium 3.7 3.5 - 5.1 mmol/L 01/12/2015 6:31 AM [facility] Chloride 99 98 - 107 mmol/L 01/12/2015 6:31 AM [facility] CO2 27 22 - 31 mmol/L 01/12/2015 6:31 AM [facility] Calcium 8.8 8.5 - 10.1 mg/dL 01/12/2015 6:31 AM [facility] Anion Gap 8 5 - 15 mmol/L 01/12/2015 6:31 AM [facility] BUN 8 7 - 21 mg/dL 01/12/2015 6:31 AM [facility] Creatinine 0.83 0.50 - 1.30 mg/dL 01/12/2015 6:31 AM [facility] eGFR by MDRD >60 >60 mL/min/1.7 3m2 01/12/2015 6:31 AM [facility] eGFR by MDRD >60 >60 mL/min/1.7 3m2 01/12/2015 6:31 AM CDT [facility] Blood BLOOD SPECIMEN / Unknown Lab Venipuncture / Unknown 01/12/2015 5:55 AM CDT 01/12/2015 6:13 AM CDT Claire Moody MD LAB - CHEMIS TRY ORDERABLES [facility] [address] [place] [address] * XR ABD OBSTR SERIES (01/11/2015 8:21 [...] IMPRESSION No acute abnormality identified. Virginie Weathers [employer] TECHNICIAN DIAGNOSTIC IMAGI NG ORDERABLES * (ABNORMAL) HEMOGLOBIN A1C (01/11/2015 5:20 AM CDT) Hemoglobin A1c 8.1(H) 4.2 - 6.3 % 01/11/2015 6:11 AM T [facility] Estimated Average Glucose 186 mg/dL 01/11/2015 6:11 AM T [facility] Whole Blood BLOOD SPECIMEN WITH EDTA / Unknown Lab Venipuncture / Unknown 01/11/2015 5:20 AM CDT 01/11/2015 5:50 AM CDT Virginie Weathers [facility] LAB - CHEMISTRY ORDERABLES Performing Organization Address [facility] Co de Phone Number [facility] [address] [place] [phone] * PT PTT PANEL (01/11/2015 5:20 AM CDT) PT 11.2 9.5 - 11.6 sec 01/11/2015 6:08 AM T [facility] INR 1.1 0.9 - 1.1 01/11/2015 6:08 AM T [facility] PTT 25.6 21.0 - 32.0 sec 01/11/2015 6:08 AM T [facility] Blood BLOOD SPECIMEN / Unknown Lab Venipuncture / Unknown 01/11/2015 5:20 AM CDT 01/11/2015 5:50 AM CDT Narrative [facility] - 01/11/2015 6:08 AM CDT Conventional Warfarin Anticoagulant Therapy INR Reference Range: 2.0-3.0 Intensive Warfarin Anticoagulant Therapy INR Reference Range: 2.5-3.5 Heparin Therapeutic Range for PTT: 44.4 - 78.3 seconds. Virginie Weathers [facility] LAB - COAGULATIO N ORDERABLES Performing Organization Address [facility] Co de Phone Number [facility] [address] [place] [phone] * (ABNORMAL) COMPREHENSIVE METABOLIC PANEL (01/11/2015 5:20 AM CDT) Glucose 126(H) 74 - 106 mg/dL 01/11/2015 6:13 AM T [facility] Sodium 136 136 - 145 mmol/L 01/11/2015 6:13 AM [facility] Potassium 3.8 3.5 - 5.1 mmol/L 01/11/2015 6:13 AM [facility] Chloride 102 98 - 107 mmol/L 01/11/2015 6:13 AM [facility] CO2 26 22 - 31 mmol/L 01/11/2015 6:13 AM [facility] Calcium 8.3(L) 8.5 - 10.1 mg/dL 01/11/2015 6:13 AM [facility] Anion Gap 8 5 - 15 mmol/L 01/11/2015 6:13 AM [facility] BUN 8 7 - 21 mg/dL 01/11/2015 6:13 AM [facility] Creatinine 1.00 0.50 - 1.30 mg/dL 01/11/2015 6:13 AM [facility] eGFR by MDRD >60 >60 mL/min/1.7 3m2 01/11/2015 6:13 AM [facility] eGFR by MDRD >60 >60 mL/min/1.7 2 01/11/2015 6:13 AM [facility] Alkaline Phosphatase 74 38 - 126 U/L 01/11/2015 6:13 AM [facility] ALT 54 12 - 78 U/L 01/11/2015 6:13 AM [facility] AST 26 5 - 40 U/L 01/11/2015 6:13 AM [facility] Protein Total 6.7 6.4 - 8.2 gm/dL 01/11/2015 6:13 AM [facility] Albumin 3.4 3.4 - 5.0 gm/dL 01/11/2015 6:13 AM [facility] Bilirubin Total 0.6 0.2 - 1.0 mg/dL 01/11/2015 6:13 AM [facility] Blood BLOOD SPECIMEN / Unknown Lab Venipuncture / Unknown 01/11/2015 5:20 AM CDT 01/11/2015 5:50 AM T Virginie Weathers [employer] TECHNICIAN LAB - CHEMISTRY ORDERABLES [facility] [address] [place] [address] * CT ABDOMEN AND PELVIS WITH IV [...] Yellow, Dark Yellow 01/10/2015 3:25 PM CDT [facility] Clarity UA Clear 01/10/2015 3:25 PM CDT [facility] Specific [place] UA 1.020 1.005 - 1.030 01/10/2015 3:25 PM CDT [facility] pH UA 6.0 5.0 - 8.0 pH 01/10/2015 3:25 PM CDT [facility] Protein UA Negative Negative 01/10/2015 3:25 PM CDT [facility] Blood UA Negative Negative 01/10/2015 3:25 PM CDT [facility] Leukocyte UA Negative Negative 01/10/2015 3:25 PM CDT [facility] Nitrite UA Negative Negative 01/10/2015 3:25 PM CDT [facility] Glucose UA Negative Negative 01/10/2015 3:25 PM CDT [facility] Ketone UA Negative Negative 01/10/2015 3:25 PM CDT [facility] Bilirubin UA Negative Negative 01/10/2015 3:25 PM CDT [facility] Urobilinogen UA 0.2 0.1 - 1.0 EU/dL 01/10/2015 3:25 PM CDT [facility] Reflex Status Culture not indicated 01/10/2015 3:25 PM CDT [facility] Urine URINE SPECIMEN OBTAINED BY CLEAN CATCH PROCEDURE / Unknown 01/10/2015 3:22 PM CDT 01/10/2015 3:22 PM CDT Alberto Mayen MD LAB - URINALYSIS ORD ERABLES [facility] [address] [place], [place] [address] * OCCULT BLOOD FECES - POINT OF CARE (IP) (01/10/2015 3:03 PM CDT) Occult Blood negative Negative [facility] P OCT TESTING QC Verified Yes Yes [facility] PO CT TESTING Card Exp Date yes Yes [facility] POCT TESTING Stool specimen (specimen) STOOL SPECIMEN / Unknown 01/10/2015 3:03 PM CDT Alberto Mayen MD LAB - POINT OF CARE ORDERABLES [facility] POCT TESTING [address] [place] [address], [facility] * (ABNORMAL) ISTAT CHEM8+ PANEL YAN (01/10/2015 2:19 PM CDT) [facility] Glucose Venous POCT 154(H) 74 - 106 [...] MD LAB - POINT OF CARE ORDERABLES [facility] [address] [place] [address], [facility] * HEPATIC FUNCTION PANEL (01/10/2015 2:19 PM CDT) Alkaline Phosphatase 94 38 - 126 U/L 01/10/2015 3:22 PM CDT [facility] ALT 66 12 - 78 U/L 01/10/2015 3:[address] [facility] AST 30 5 - 40 U/L 01/10/2015 3:[address] [facility] Protein Total 7.8 6.4 - 8.2 gm/dL 01/10/2015 3:[address] [facility] Albumin 4.2 3.4 - 5.0 gm/dL 01/10/2015 3:22 PM CDT [facility] Bilirubin Total 0.4 0.2 - 1.0 mg/dL 01/10/2015 3:[address] [facility] Bilirubin Direct <0.1 0 - 0.3 mg/dL 01/10/2015 3:22 PM CDT [facility] Blood BLOOD SPECIMEN / Unknown 01/10/2015 2:19 PM CDT 01/10/2015 2:55 PM CDT Alberto Mayen MD LAB - CHEMISTRY ORDE BIMAL Performing Organization Address [facility]/ZIP Co de Phone Number [facility] [address] [place] [address] * LIPASE BLOOD (01/10/2015 2:19 PM CDT) Pathologist [facility] Lipase 146 73 - 393 U/L 01/10/2015 3:23 PM CDT [facility] Blood BLOOD SPECIMEN / Unknown 01/10/2015 2:19 PM CDT 01/10/2015 2:55 PM CDT Alberto Mayen MD LAB - CHEMISTRY ORDRadha WALLIS Performing Organization Address [facility]/ZIP Co de Phone Number [facility] [address] [place] [address] * BMP w CA+ IONIZED iSTAT POC in [facility] (01/10/2015 2:16 PM CDT) Comment Notification Label 01/10/2015 4:00 PM CDT [facility] Blood BLOOD SPECIMEN / Unknown 01/10/2015 2:16 PM CDT 01/10/2015 2:16 PM CDT Alberto Mayen MD LAB BLOOD ORDERABLES [facility] [address] [place] [id number]
--- OUTSIDE RECORDS SUMMARY | 2024-10-10 18:35 | XMS_ITS ---
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
--- OUTSIDE RECORDS SUMMARY | 2024-10-10 18:35 | XMS_ITS | CCD ---
Author Name Interface, [id number] yuliana Address [address] [place] [address] [facility] ecLAN mcintosh Address [address] [place] [address] Care Team Providers Care Professor Of Communication Arts Name Role Phone Mata Ledezma Unavailable Unavailable [...] ulcer Active Anxiety Active Testicular pain Active Social History Date Name Value Sex Male
--- OUTSIDE RECORDS SUMMARY | 2024-10-10 18:35 | XMS_ITS | Clinical Summary ---
Author Organization [facility] Address [address] [place] [address] Care Team Providers Care Extractor Puller Name Role Phone Unavailable Primary Care Provider Unavailabl e Source Comments [facility],non-owned Affiliates and Associated Physician Practices is amultiple site organization consisting of ambulatory clinics and hospital sitesin [place], [place], [place] and [place]. This disclosure is being madepursuant to the Care Everywhere program and may not contain all information available regarding this patient. Last updated 18.[facility] Allergies No known active allergies Medications * [...] of 3 - 19+ 3-dose series) 02/16/1988 PNEUMOCOCCAL VACCINE 50+ (2 of 2 - PCV) 2019 01/12/2015 ZOSTER VACCINE (1 of 2) 2019 COVID-19 VACCINE ( - 2023-2 5 season) 2024 INFLUENZA VACCINE (#1) 2024 DEPRESSION SCREENING 08/24/2024 PNEUMOCOCCAL VACCINE Aged Out 01/12/2015 No long er eligible based on patient's age to complete this topic HIB VACCINE Aged Out No longer eligi ble based on patient's age to complete this topic HPV VACCINE Aged Out No longer eligi ble based on patient's age to complete this topic MENINGOCOCCAL (Group B) VACCINE Aged Out No longer eligible based on patient's age to complete this topic MENINGOCOCCAL VACCINE Aged Out No marcelle jackie eligible based on patient's age to complete this topic Advance Directives * Full Code (Latest Code Status on File) Date Activated Date Inactivated Comments 01/10/2015 10:22 PM 01/12/2015 5:26 PM
--- OUTSIDE RECORDS SUMMARY | 2024-10-10 18:35 | XMS_ITS | CCD ---
Author Name Interface, [id number] yuliana Address [address] [place] [address] [facility] [employer] mcintosh Address [address] [place] [address] Care Team Providers Care Safety Companion Name Role Phone Mata Ledezma Unavailable Unavailable [...]
--- OUTSIDE RECORDS SUMMARY | 2024-10-10 18:35 | XMS_ITS | Referral Summary ---
Author Organization [facility] Address [address] [place] [address] Care Team Providers Care Toter Name Role Phone Monique Garcia MD Unavailable [phone] Monique Garcia MD Unavailable [phone] Nathan Martinez MD Primary Care Provider [phone] Encounters Date Type Department Care Team Description 09/01/2024 Telephone [facility] [address] [place] [phone] Nathan Martinez MD Forms Request 08/27/2024 Orders Only [facility] Health Information Management [address] [place] [id number] Scanning, Provider 08/08/2024 11:00 AM RELATIONS LIAISON Office Visit [facility] Primary [facility] [address] [place] [phone] Nathan Martinez MD Type 2 diabetes mellitus [...] face and groin. 90 g 1 05/05/2022 Active atorvastatin (LIPITOR) 10 mg tablet Take 1 tablet (10 mg total) by mouth daily 90 tablet 1 05/02/2024 Active glipiZIDE (GLUCOTROL) 10 mg tabletIndicatio ns:type 2 diabetes mellitus Take 1 tablet (10 mg total) by mouth daily 90 tablet 1 05/02/2024 Active hyoscyamine ER (LEVBID) 0.375 mg 12 hr tabletIndicatio ns:diarrhea Take 1 tablet (0.375 mg total) by mouth every 12 (twelve) hours as needed for cramping 180 tablet 1 05/02/2024 Active linaCLOtide (LINZESS) 290 mcg capsule Take 1 capsule (290 mcg total) by mouth daily 90 capsule 1 05/02/2024 Active traZODone (DESYREL) 100 mg tablet Take 1 tablet by mouth every night 90 tablet 1 08/08/2024 Active escitalopram (LEXAPRO) 20 mg tablet Take 1 tablet (20 mg total) by mouth daily 90 tablet 1 08/08/2024 Active semaglutide (OZEMPIC) 1 mg/dose (4 mg/3 mL) pen injector injection Inject 1 mg under the skin every 7 days 9 mL 1 08/08/2024 Active modafiniL (PROVIGIL) 100 mg tablet Take 1 tablet (100 mg total) by mouth daily 90 tablet 08/08/2024 Active Active Problems Problem Noted Date Diagnosed [...] pain 09/25/2023 Controlled type 2 diabetes m venecia without complication, without long-term current use of insulin ([facility]) 05/21/2023 Assessment & Plan (05/02/2024 3:03 PM CDT): A1c today. Continue glipizide/Ozempic at same dosage. A1c is higher. Increase Ozempic to 1 mg Assessment & Plan (10/15/2023 11:29 AM RELATIONS LIAISON): A1c today . Continue glipizide/Trulicity at same [...] 09/12/2022 Assessment & Plan (09/12/2022 9:35 AM RELATIONS LIAISON): Some tinnitus for 2 months. Possible hearing loss. Ear canals normal today drums normal ENT refer Lipidemia 09/11/2022 Assessment & Plan (08/05/2024 2:15 PM RELATIONS LIAISON): Continue atorvastatin same dosage. Needs repeat lipid Assessment & Plan (05/01/2024 12:22 PM CDT): Needs repeat lipids. Continue atorvastatin at same dose. Assessment & Plan (01/07/2024 4:08 PM CDT): Continue atorvastatin same dosage but needs repeat lipids. Assessment & Plan (10/15/2023 11:35 AM RELATIONS LIAISON): Continue atorvastatin at same dosage. Well controlled. Assessment & Plan (06/23/2023 2:03 PM CDT): Continue Lipitor same dosage but needs repeat lipids. Assessment & Plan (01/15/2023 1:58 PM CDT): Continue atorvastatin same dosage but needs repeat lipids Assessment & Plan (09/11/2022 3:45 PM RELATIONS LIAISON): Continue atorvastatin same dosage Acute left ankle [...] counseling. Assessment & Plan (10/15/2023 12:07 PM RELATIONS LIAISON): Diabetic foot exam: Left monofilament exam: normal [...] surgeon Assessment & Plan (09/02/2021 8:59 AM RELATIONS LIAISON): Pain most recently is in the right [...] 09/02/2021 Assessment & Plan (09/02/2021 9:00 AM RELATIONS LIAISON): Refer to Dermatology Chronic abdominal pain 08/30/2021 Assessment & Plan (05/02/2024 3:02 PM CDT): History of multiple adhesions and several times he has had to had bowel obstruction treated. Constant pain. Worse about 30 minutes after eating. Referral to GI. Left lower quadrant Assessment & Plan (09/16/2021 9:44 AM RELATIONS LIAISON): Try peppermint oil pill daily. Discontinue Levbid. Refer to GI. Needs colonoscopy. Assessment & Plan (09/02/2021 8:59 AM RELATIONS LIAISON): Previous pain is similar to this pain [...] 10/08/2020 Assessment & Plan (08/05/2024 2:14 PM RELATIONS LIAISON): Continue Provigil at same dosage. Well controlled. Return 3 months Assessment & Plan (05/01/2024 12:20 PM CDT): Continue Provigil at same dosage. Well controlled. Return 3 months Assessment & Plan (01/07/2024 4:03 PM CDT): Continue Provigil at same dosage. Well controlled. Assessment & Plan (10/16/2023 1:08 PM RELATIONS LIAISON): Takes Provigil off-label. Adequate control with medicine. [...] usage. Assessment & Plan (09/13/2021 9:27 AM RELATIONS LIAISON): Continue modafinil at same dosage. Well controlled. No signs of toxicity and patient understands this is off-label treatment Assessment & Plan (08/30/2021 7:27 AM RELATIONS LIAISON): Allow modafinil as no evidence of toxicity and evidence of benefit Assessment & Plan (06/11/2021 1:30 PM CDT): Continue Provigil at same dosage. Well controlled. Assessment & Plan (02/08/2021 10:32 AM CDT): Continue modafinil at same dosage. Well controlled. Assessment & Plan (11/09/2020 1:42 PM CDT): Allow modafinil but understands off-label Assessment & Plan (10/08/2020 10:45 AM RELATIONS LIAISON): Previously diagnosed with this by psychiatrist at [place]. good response previously to modafinil but I [...] PFTs Assessment & Plan (10/08/2020 10:46 AM RELATIONS LIAISON): Much improved Assessment & Plan (09/10/2020 10:03 AM RELATIONS LIAISON): Mainly with exertion and will refer to [...] disease Assessment & Plan (10/08/2020 10:45 AM RELATIONS LIAISON): Much improved Assessment & Plan (09/10/2020 9:58 AM RELATIONS LIAISON): Persisting cough and will refer to Pulmonary for Rash 09/10/2020 Assessment & Plan (10/08/2020 10:45 AM RELATIONS LIAISON): Much improved Assessment & Plan (09/10/2020 10:02 AM RELATIONS LIAISON): There is a dry Pash of eczematoid type rash on his back that is different than psoriasis he has other areas. We will give him some topical hydrocortisone cream but not to use longer than 2 weeks as risk of atrophy and tolerance. Nasal polyp 09/10/2020 Assessment & Plan (09/10/2020 10:07 AM RELATIONS LIAISON): ENT referral Anemia 09/09/2020 Assessment & Plan (09/09/2020 1:03 PM RELATIONS LIAISON): Needs iron studies and methylmalonic acid level. Needs to have colonoscopy done. Type 2 diabetes mellitus wit h hyperglycemia, without long-term current use of insulin 06/08/2020 Assessment & Plan (08/08/2024 11:33 AM RELATIONS LIAISON): A1c today. Is improved at 7.0. Continue [...] controlled. Assessment & Plan (09/11/2022 3:47 PM RELATIONS LIAISON): A1C TODAY.BMI Follow-up includes: nutrition counseling and [...] weekly Assessment & Plan (09/16/2021 9:43 AM RELATIONS LIAISON): A1c today. Diabetes needing better control. No hypoglycemic symptoms. Metformin, Jardiance, and glipizide daily. No significant improvement and will add Trulicity 0.75 mg weekly Assessment & Plan (08/30/2021 7:25 AM RELATIONS LIAISON): A1c today. Assessment & Plan (06/17/2021 10:38 [...] today. Assessment & Plan (10/08/2020 10:42 AM RELATIONS LIAISON): Check fasting blood sugar today. Result is 415 no he has had better sugars at home. No hypoglycemic symptoms will increase Jardiance to 25 mg daily as he has had no side effects. Assessment & Plan (09/10/2020 9:58 AM RELATIONS LIAISON): Needs better control. Medication options discussed. Risk [...] controlled. Assessment & Plan (10/15/2023 11:36 AM RELATIONS LIAISON): Continue trazodone at same dosage. Well controlled. Assessment & Plan (06/23/2023 2:04 PM CDT): Continue trazodone same dosage. Well controlled. Assessment & Plan (01/15/2023 1:59 PM CDT): Continue trazodone at same dosage. Well controlled. Assessment & Plan (09/11/2022 3:44 PM RELATIONS LIAISON): Continue trazodone Assessment & Plan (05/02/2022 11:04 AM CDT): Continue trazodone at same dosage. Well controlled. Assessment & Plan (12/13/2021 9:57 AM CDT): Continue trazodone at same dosage. Well controlled. Assessment & Plan (08/30/2021 7:26 AM RELATIONS LIAISON): Continue trazodone at same dosage. Well controlled. Assessment & Plan (06/11/2021 1:30 PM CDT): Continue trazodone at same dosage. Well controlled. Assessment & Plan (02/08/2021 10:36 AM CDT): Continue trazodone at same dosage. Well controlled. Assessment & Plan (10/08/2020 10:31 AM RELATIONS LIAISON): Improved. Continue trazodone 100 mg Assessment & Plan (09/10/2020 10:00 AM RELATIONS LIAISON): Increase trazodone to 100 mg needs better control Assessment & Plan (06/08/2020 10:30 AM CDT): Continue medication at same dosage. Well controlled. Major depression in remission 06/08/2020 Assessment & Plan (08/05/2024 2:13 PM RELATIONS LIAISON): Continue Lexapro at same dosage. Well controlled. Assessment & Plan (05/01/2024 12:21 PM CDT): Continue Lexapro at same dosage. Well controlled. Assessment & Plan (01/07/2024 4:04 PM CDT): Continue Lexapro at same dosage. Well controlled. Assessment & Plan (10/15/2023 11:35 AM RELATIONS LIAISON): Continue Lexapro at same dosage. Well controlled. Assessment & Plan (06/23/2023 2:07 PM CDT): Continue Lexapro at same dosage. Well controlled. Assessment & Plan (01/15/2023 2:00 PM CDT): Continue Lexapro at same dosage. Well controlled. Assessment & Plan (09/11/2022 3:44 PM RELATIONS LIAISON): Continue Lexapro at same dosage. Well controlled. Assessment & Plan (05/02/2022 11:00 AM CDT): Continue Lexapro at same dosage. Well controlled. Assessment & Plan (12/13/2021 9:57 AM CDT): Continue Lexapro at same dosage. Well controlled. Assessment & Plan (08/30/2021 7:26 AM RELATIONS LIAISON): Continue Lexapro at same dosage. Well controlled. Assessment & Plan (06/11/2021 1:30 PM CDT): Continue Lexapro at same dosage. Well controlled. Assessment & Plan (02/08/2021 10:33 AM CDT): Continue Lexapro at same dosage. Well controlled. Assessment & Plan (11/09/2020 1:42 PM CDT): Continue Lexapro at same dosage. Well controlled. Assessment & Plan (09/09/2020 1:01 PM RELATIONS LIAISON): Continue medication at same dosage. Well controlled. [...] of colon resection because of diverticulitis Immunizations Immunization Administration Dates Next Due H1N1 Inj 09/03/2009 [...] Comments Blood Pressure 124/82 08/08/2024 11:17 AM RELATIONS LIAISON Pulse 86 08/08/2024 11:17 AM RELATIONS LIAISON Temperature 36.7 C (98 F) 08/08/2024 11:17 AM RELATIONS LIAISON Respiratory Rate 18 08/08/2024 11:1 7 AM RELATIONS LIAISON Oxygen Saturation 98% 08/08/2024 11: 17 AM RELATIONS LIAISON Inhaled Oxygen Concentration - - Weight 89.3 kg (196 lb 12.8 oz) 024 11:17 AM RELATIONS LIAISON Height 180.3 cm (5' 10.98 ) 08/08/2024 11:17 AM RELATIONS LIAISON Body Mass Index 27.46 08/08/2024 11:17 AM RELATIONS LIAISON Plan of Treatment Not on file Procedures Procedure Name Priority Date/Time Associated Diagnosis Comments SCAN - RADIOLOGY/IMAGING 08/27/2024 POCT HEMOGLOBIN A1C Routine 08/08/2024 1 1:33 AM RELATIONS LIAISON Type 2 diabetes mellitus with hyperglycemia, without long-term current use of insulin ([facility]) COLONOSCOPY Routine 05/09/2024 7:50 AM CDT ALBUMIN CREATININE RATIO, URINE Routine 05/05/2022 9:04 AM CDT Type 2 diabetes mellitus with hyperglycemia, without long-term current use of insulin ([facility]) (HCC) EGFR STAT 09/02/2021 9:48 AM RELATIONS LIAISON from Last 3 Months or Most Recently Relevant to Health Maintenance Results * SCAN - RADIOLOGY/IMAGING (08/27/2024) Anatomical Region Laterality Modality Other us Provider Scanning Final Result * (ABNORMAL) POCT hemoglobin A1c (08/08/2024 11:33 AM RELATIONS LIAISON) Hemoglobin A1C, POC 7.0 4.0 - 5.6 % Blood 08/08/2024 11:3 3 AM RELATIONS LIAISON Nathan Martinez MD POINT OF CARE TEST ORDERAB LES Final Result * (ABNORMAL) Colonoscopy (05/09/2024 7:50 AM CDT) Anatomical Region Laterality Modality Other Camryn Provider ENDOSCOPY PROCEDURES Marilee l Result * Albumin Creatinine Ratio, Urine (05/05/2022 9:04 AM CDT) Creatinine, ur 122 20 - 320 mg/dL [facility] Microalbumin, ur 1.1 See Note: mg/dL [facility] Comment: Reference Range: Reference Range Not established Microalbumin/creat ratio 9 <30 mcg/mg creat [facility] Comment: The ADA defines abnormalities in albumin excretion as follows: Albuminuria Category Result (mcg/mg creatinine) Normal to Mildly increased <30 Moderately increased 30-299 Severely increased > OR = 300 The ADA recommends that at least two of three specimens collected within a 3-6 month period be abnormal before considering a patient to be within a diagnostic category. Urine 05/05/2022 9:04 AM CDT 05/05/2022 9:05 AM CDT Narrative [facility] - 05/06/2022 12:48 PM CDT FASTING:NO FASTING: NO Nathan Martinez MD LAB URINE ORDERABLES Final Result [facility] [address] [place] [address] * eGFR (09/02/2021 9:48 AM RELATIONS LIAISON) eGFR 91 mL/min/1. 73 m2 [facility] Comment: Interpretive Data Reference Interval Normal >/= 90 mL/min/1.73m2 Mildly decreased* 60 - 89 mL/min/1.73m2 Mildly to moderately decreased 45 - 59 mL/min/1.73m2 Moderately to severely decreased 30 - 44 mL/min/1.73m2 Severely decreased 15 - 29 mL/min/1.73m2 Kidney Failure < 15 mL/min/1.73m2 *Relative to young adult level Estimated glomerular [...] was last reviewed 2021. Testing performed by: [facility], [address] [place] [address]., [id number] Blood 09/02/2021 9:48 AM RELATIONS LIAISON 09/02/2021 9:53 AM RELATIONS LIAISON Jennifer MONTENEGRO LAB BLOOD ORDERABLE S Final Result [facility] [address] [facility] [place] [address] from Last 3 Months or Most Recently Relevant to Health Maintenance Insurance [address] [id number] [facility] CLAIMS Member Subscriber Plan / Payer (Ef fective 2020-Present) Name:Erich Allen Relation to Subscriber:Self Name:Erich Allen Payer ID:[id number] (NAIC) Group ID:Not on file Type:[employer] Address: [place] [phone] [address] [id number] [facility] CLAIMS [facility] CLAIMS [facility] Address: [facility] [address] [place] [address] Care Teams Toter Relationship Specialty Start Date End Date Nathan Martinez MD PCP - General Family Practice 09/10/20 Monique Garcia MD Referring Physician Gastroenterology 06/11/20 Monique Garcia MD Referring Physician Gastroenterology 06/11/20
--- OUTSIDE RECORDS SUMMARY | 2024-10-10 18:35 | XMS_ITS | Referral Summary ---
Author Organization [facility] Address [address] [place] [address] Care Team Providers Care Mirror Inspector Name Role Phone Unavailable Primary Care Provider Unavailabl e Source Comments [facility],non-owned Affiliates and Associated Physician Practices is amultiple site organization consisting of ambulatory clinics and hospital sitesin [place], [place], [place] and [place]. This disclosure is being madepursuant to the Care Everywhere program and may not contain all information available regarding this patient. Last updated 18.[facility] Allergies No known active allergies Medications * [...]
--- OUTSIDE RECORDS SUMMARY | 2024-10-10 18:35 | XMS_ITS | Clinical Summary ---
Author Organization [facility] Address [address] [place] [address] Care Team Providers Care Hematology Technician Name Role Phone Monique Garcia MD Unavailable [phone] Monique Garcia MD Unavailable [phone] Nathan Martinez MD Primary Care Provider [phone] Allergies Active Allergy Reactions Criticality Noted Date [...] complication, without long-term current use of insulin ([facility]) 05/21/2023 Assessment & Plan (05/02/2024 3:03 PM CDT): A1c today. Continue glipizide/Ozempic at same dosage. A1c is higher. Increase Ozempic to 1 mg Assessment & Plan (10/15/2023 11:29 AM COLLECTIONS ASSISTANT): A1c today . Continue glipizide/Trulicity at [...] 09/12/2022 Assessment & Plan (09/12/2022 9:35 AM COLLECTIONS ASSISTANT): Some tinnitus for 2 months. Possible hearing loss. Ear canals normal today drums normal ENT refer Lipidemia 09/11/2022 Assessment & Plan (08/05/2024 2:15 PM COLLECTIONS ASSISTANT): Continue atorvastatin same dosage. Needs repeat lipid Assessment & Plan (05/01/2024 12:22 PM CDT): Needs repeat lipids. Continue atorvastatin at same dose. Assessment & Plan (01/07/2024 4:08 PM CDT): Continue atorvastatin same dosage but needs repeat lipids. Assessment & Plan (10/15/2023 11:35 AM COLLECTIONS ASSISTANT): Continue atorvastatin at same dosage. Well controlled. Assessment & Plan (06/23/2023 2:03 PM CDT): Continue Lipitor same dosage but needs repeat lipids. Assessment & Plan (01/15/2023 1:58 PM CDT): Continue atorvastatin same dosage but needs repeat lipids Assessment & Plan (09/11/2022 3:45 PM COLLECTIONS ASSISTANT): Continue atorvastatin same dosage Acute left [...] counseling. Assessment & Plan (10/15/2023 12:07 PM COLLECTIONS ASSISTANT): Diabetic foot exam: Left monofilament exam: [...] surgeon Assessment & Plan (09/02/2021 8:59 AM COLLECTIONS ASSISTANT): Pain most recently is in the [...] 09/02/2021 Assessment & Plan (09/02/2021 9:00 AM COLLECTIONS ASSISTANT): Refer to Dermatology Chronic abdominal pain 08/30/2021 Assessment & Plan (05/02/2024 3:02 PM CDT): History of multiple adhesions and several times he has had to had bowel obstruction treated. Constant pain. Worse about 30 minutes after eating. Referral to GI. Left lower quadrant Assessment & Plan (09/16/2021 9:44 AM COLLECTIONS ASSISTANT): Try peppermint oil pill daily. Discontinue Levbid. Refer to GI. Needs colonoscopy. Assessment & Plan (09/02/2021 8:59 AM COLLECTIONS ASSISTANT): Previous pain is similar to this [...] 10/08/2020 Assessment & Plan (08/05/2024 2:14 PM COLLECTIONS ASSISTANT): Continue Provigil at same dosage. Well controlled. Return 3 months Assessment & Plan (05/01/2024 12:20 PM CDT): Continue Provigil at same dosage. Well controlled. Return 3 months Assessment & Plan (01/07/2024 4:03 PM CDT): Continue Provigil at same dosage. Well controlled. Assessment & Plan (10/16/2023 1:08 PM COLLECTIONS ASSISTANT): Takes Provigil off-label. Adequate control with [...] usage. Assessment & Plan (09/13/2021 9:27 AM COLLECTIONS ASSISTANT): Continue modafinil at same dosage. Well controlled. No signs of toxicity and patient understands this is off-label treatment Assessment & Plan (08/30/2021 7:27 AM COLLECTIONS ASSISTANT): Allow modafinil as no evidence of toxicity and evidence of benefit Assessment & Plan (06/11/2021 1:30 PM CDT): Continue Provigil at same dosage. Well controlled. Assessment & Plan (02/08/2021 10:32 AM CDT): Continue modafinil at same dosage. Well controlled. Assessment & Plan (11/09/2020 1:42 PM CDT): Allow modafinil but understands off-label Assessment & Plan (10/08/2020 10:45 AM COLLECTIONS ASSISTANT): Previously diagnosed with this by psychiatrist at [facility]. good response previously to modafinil but I [...] PFTs Assessment & Plan (10/08/2020 10:46 AM COLLECTIONS ASSISTANT): Much improved Assessment & Plan (09/10/2020 10:03 AM COLLECTIONS ASSISTANT): Mainly with exertion and will refer [...] disease Assessment & Plan (10/08/2020 10:45 AM COLLECTIONS ASSISTANT): Much improved Assessment & Plan (09/10/2020 9:58 AM COLLECTIONS ASSISTANT): Persisting cough and will refer to Pulmonary for Rash 09/10/2020 Assessment & Plan (10/08/2020 10:45 AM COLLECTIONS ASSISTANT): Much improved Assessment & Plan (09/10/2020 10:02 AM COLLECTIONS ASSISTANT): There is a dry Pash of eczematoid type rash on his back that is different than psoriasis he has other areas. We will give him some topical hydrocortisone cream but not to use longer than 2 weeks as risk of atrophy and tolerance. Nasal polyp 09/10/2020 Assessment & Plan (09/10/2020 10:07 AM COLLECTIONS ASSISTANT): ENT referral Anemia 09/09/2020 Assessment & Plan (09/09/2020 1:03 PM COLLECTIONS ASSISTANT): Needs iron studies and methylmalonic acid level. Needs to have colonoscopy done. Type 2 diabetes mellitus wit h hyperglycemia, without long-term current use of insulin 06/08/2020 Assessment & Plan (08/08/2024 11:33 AM COLLECTIONS ASSISTANT): A1c today. Is improved at 7.0. [...] controlled. Assessment & Plan (09/11/2022 3:47 PM COLLECTIONS ASSISTANT): A1C TODAY.BMI Follow-up includes: nutrition counseling [...] weekly Assessment & Plan (09/16/2021 9:43 AM COLLECTIONS ASSISTANT): A1c today. Diabetes needing better control. No hypoglycemic symptoms. Metformin, Jardiance, and glipizide daily. No significant improvement and will add Trulicity 0.75 mg weekly Assessment & Plan (08/30/2021 7:25 AM COLLECTIONS ASSISTANT): A1c today. Assessment & Plan (06/17/2021 [...] today. Assessment & Plan (10/08/2020 10:42 AM COLLECTIONS ASSISTANT): Check fasting blood sugar today. Result is 415 no he has had better sugars at home. No hypoglycemic symptoms will increase Jardiance to 25 mg daily as he has had no side effects. Assessment & Plan (09/10/2020 9:58 AM COLLECTIONS ASSISTANT): Needs better control. Medication options discussed. [...] controlled. Assessment & Plan (10/15/2023 11:36 AM COLLECTIONS ASSISTANT): Continue trazodone at same dosage. Well controlled. Assessment & Plan (06/23/2023 2:04 PM CDT): Continue trazodone same dosage. Well controlled. Assessment & Plan (01/15/2023 1:59 PM CDT): Continue trazodone at same dosage. Well controlled. Assessment & Plan (09/11/2022 3:44 PM COLLECTIONS ASSISTANT): Continue trazodone Assessment & Plan (05/02/2022 11:04 AM CDT): Continue trazodone at same dosage. Well controlled. Assessment & Plan (12/13/2021 9:57 AM CDT): Continue trazodone at same dosage. Well controlled. Assessment & Plan (08/30/2021 7:26 AM COLLECTIONS ASSISTANT): Continue trazodone at same dosage. Well controlled. Assessment & Plan (06/11/2021 1:30 PM CDT): Continue trazodone at same dosage. Well controlled. Assessment & Plan (02/08/2021 10:36 AM CDT): Continue trazodone at same dosage. Well controlled. Assessment & Plan (10/08/2020 10:31 AM COLLECTIONS ASSISTANT): Improved. Continue trazodone 100 mg Assessment & Plan (09/10/2020 10:00 AM COLLECTIONS ASSISTANT): Increase trazodone to 100 mg needs better control Assessment & Plan (06/08/2020 10:30 AM CDT): Continue medication at same dosage. Well controlled. Major depression in remission 06/08/2020 Assessment & Plan (08/05/2024 2:13 PM COLLECTIONS ASSISTANT): Continue Lexapro at same dosage. Well controlled. Assessment & Plan (05/01/2024 12:21 PM CDT): Continue Lexapro at same dosage. Well controlled. Assessment & Plan (01/07/2024 4:04 PM CDT): Continue Lexapro at same dosage. Well controlled. Assessment & Plan (10/15/2023 11:35 AM COLLECTIONS ASSISTANT): Continue Lexapro at same dosage. Well controlled. Assessment & Plan (06/23/2023 2:07 PM CDT): Continue Lexapro at same dosage. Well controlled. Assessment & Plan (01/15/2023 2:00 PM CDT): Continue Lexapro at same dosage. Well controlled. Assessment & Plan (09/11/2022 3:44 PM COLLECTIONS ASSISTANT): Continue Lexapro at same dosage. Well controlled. Assessment & Plan (05/02/2022 11:00 AM CDT): Continue Lexapro at same dosage. Well controlled. Assessment & Plan (12/13/2021 9:57 AM CDT): Continue Lexapro at same dosage. Well controlled. Assessment & Plan (08/30/2021 7:26 AM COLLECTIONS ASSISTANT): Continue Lexapro at same dosage. Well controlled. Assessment & Plan (06/11/2021 1:30 PM CDT): Continue Lexapro at same dosage. Well controlled. Assessment & Plan (02/08/2021 10:33 AM CDT): Continue Lexapro at same dosage. Well controlled. Assessment & Plan (11/09/2020 1:42 PM CDT): Continue Lexapro at same dosage. Well controlled. Assessment & Plan (09/09/2020 1:01 PM COLLECTIONS ASSISTANT): Continue medication at same dosage. Well [...] Type Department Care Team Description 09/01/2024 Telephone [facility] [address] [place] [phone] Nathan Martinez MD Forms Request 08/27/2024 Orders Only [facility] Health Information Management [address] [place] [address] Scanning, Provider 08/08/2024 11:00 AM COLLECTIONS ASSISTANT Office Visit [facility] [address] [place] [address] Nathan Martinez MD Type 2 diabetes mellitus with hyperglycemia, without long-term current use of insulin (HCC) (Primary Dx); Major depression in remission (HCC); Attention deficit hyperactivity disorder (ADHD), predominantly inattentive type; Mixed hyperlipidemia from Last 3 Months Immunizations Immunization Administration Dates Next Due H1N1 [...] Comments Blood Pressure 124/82 08/08/2024 11:17 AM COLLECTIONS ASSISTANT Pulse 86 08/08/2024 11:17 AM COLLECTIONS ASSISTANT Temperature 36.7 C (98 F) 08/08/2024 11:17 AM COLLECTIONS ASSISTANT Respiratory Rate 18 08/08/2024 11:1 7 AM COLLECTIONS ASSISTANT Oxygen Saturation 98% 08/08/2024 11: 17 AM COLLECTIONS ASSISTANT Inhaled Oxygen Concentration - - Weight 89.3 kg (196 lb 12.8 oz) 024 11:17 AM COLLECTIONS ASSISTANT Height 180.3 cm (5' 10.98 ) 08/08/2024 11:17 AM COLLECTIONS ASSISTANT Body Mass Index 27.46 08/08/2024 11:17 AM COLLECTIONS ASSISTANT Plan of Treatment Health Maintenance Due [...] Ratio, Urine 05/05/2023 05/05/2022, 06/17/2021 Covid-19 Vaccine (3 - season) 2024 05/12/2021, 04/01/2021 Hemoglobin A1C 02/06/2025 08/08/2024, 09/0 04/2024, 01/08/2024, Additional history exists Influenza Vaccine (#1) 2025 4, 05/24/2013, 05/24/2012, Additional history exists Postponed from 04/24/2024 (Patient declined, but will receive in the future) Depression Screening 08/08/2025 08/08/2024, 05/02/2024, 01/08/2024, Additional history exists Foot Exam 08/08/2025 08/08/2024, 09/25, 06/23/2023, Additional history exists Colon Cancer Screening-Colonoscopy 05/09/2029 05/09/2024, 11/12/2020 Hepatitis B Screening Completed 05/03/2008 Procedures Procedure Name Priority Date/Time Associated Diagnosis Comments SCAN - RADIOLOGY/IMAGING 08/27/2024 POCT HEMOGLOBIN A1C Routine 08/08/2024 1 1:33 AM COLLECTIONS ASSISTANT Type 2 diabetes mellitus with hyperglycemia, without long-term current use of insulin (HCC) COLONOSCOPY Routine 05/09/2024 7:50 AM CDT ALBUMIN CREATININE RATIO, URINE Routine 05/05/2022 9:04 AM CDT Type 2 diabetes mellitus with hyperglycemia, without long-term current use of insulin ([facility]) (HCC) EGFR STAT 09/02/2021 9:48 AM COLLECTIONS ASSISTANT from Last 3 Months or Most Recently Relevant to Health Maintenance Results * SCAN - RADIOLOGY/IMAGING (08/27/2024) Anatomical Region Laterality Modality Other us Provider Scanning Final Result * (ABNORMAL) POCT hemoglobin A1c (08/08/2024 11:33 AM COLLECTIONS ASSISTANT) Hemoglobin A1C, POC 7.0 4.0 - 5.6 % Blood 08/08/2024 11:3 3 AM COLLECTIONS ASSISTANT us Nathan Martinez MD POINT OF CARE TEST ORDERAB LES Final Result * (ABNORMAL) Colonoscopy (05/09/2024 7:50 AM CDT) Anatomical Region Laterality Modality Other us Historical Provider ENDOSCOPY PROCEDURES Marilee l Result [...] LAB URINE ORDERABLES Final Result [facility] [address] [place] [address] * eGFR (09/02/2021 9:48 AM COLLECTIONS ASSISTANT) eGFR 91 mL/min/1. 73 m2 TERESA RAYMUNDO [...] was last reviewed 2021. Testing performed by: [facility], [address] [place] [address]., [id number] Blood 09/02/2021 9:48 AM COLLECTIONS ASSISTANT 09/02/2021 9:53 AM COLLECTIONS ASSISTANT Jennifer MONTENEGRO LAB BLOOD ORDERABLE S Final Result [facility] [address] [facility] [place] [address] from Last 3 Months or Most Recently Relevant to Health Maintenance Insurance [address] CLAIMS Member Subscriber Plan / Payer (Ef fective 2020-Present) Name:Erich Allen Relation to Subscriber:Self Name:Erich Allen Payer ID:[id number] (NAIC) Group ID:Not on file Type:[employer] Address: [place] [phone] [address] [place] [phone] [facility]S [facility] CLAIM[facility] Care Teams Hematology Technician Relationship Specialty Start Date End Date Nathan Martinez MD PCP - General Family Practice 09/10/20 Monique Garcia MD Referring Physician Gastroenterology 06/11/20 Monique Garcia MD Referring Physician Gastroenterology 06/11/20
[2024-10-10 19:34] LABS: Basophils Percent Auto 0.5 % (0.2-1.2); Eosinophils Absolute Auto 0.1 K/mm3 (0-0.3); Eosinophils Percent Auto 1.2 % (0-4.4); Hematocrit 45.4 % (42.0-52.0); Immature Granulocyte Absolute 0.01 K/mm3 (0.00-0.031); Immature Granulocyte Percent A 0.2 % (0-0.5); Lymphocytes Absolute Auto 1.91 K/mm3 (0.9-3.2); Lymphocytes Percent Auto 33.9 % (18.3-44.2); Mean Corpuscular Hemoglobin 26.7 pg (26-34); Mean Corpuscular Volume 80.9 fl (80-100); Mean Platelet Volume 9.1 fl (7.4-10.4); Monocytes Absolute Auto 0.4 K/mm3 (0.1-0.6); Monocytes Percent Auto 6.2 % (2.6-8.5); Neutrophils Absolute Auto 3.3 K/mm3 (1.3-6.7); Platelet Count Result 294 k/mm3 (150-375); Red Blood Count 5.61 M/mm3 (4.6-6.20); Red Cell Distribution Width 13.9 % (11.5-14.5); White Blood Count 5.6 K/mm3 (4.5-10.0)
[2024-10-10 20:47] LABS: Alanine Aminotransferase 34 U/L (6-50); Albumin Level 4.6 g/dL (3.5-5.1); Alkaline Phosphatase 62 U/L (38-126); Anion Gap 12 mmol/L (4-12); Aspartate Amino Transferase 32 U/L (17-59); Bilirubin,Total 0.6 mg/dL (0.2-1.3); Blood Urea Nitrogen 11 mg/dL (9-20); Calcium 9.4 mg/dL (8.4-10.2); Carbon Dioxide 26 mmol/L (22-30); Chloride 101 mmol/L (98-107); Estimated CRCL calculation 77 ml/min; Estimated Glomerular Filt Rate > 60; Glucose 103 mg/dL (65-110); Lipase 153 U/L (23-300); Sodium 139 mmol/L (137-145)
--- OUTSIDE RECORDS SUMMARY | 2024-10-10 22:00 | XMS_ITS | Clinical Summary ---
Author Organization [facility] Address [address] [place] [address] Care Team Providers Care Restaurant Greeter Name Role Phone Unavailable Primary Care Provider Unavailabl e Source Comments [facility],non-owned Affiliates and Associated Physician Practices is amultiple site organization consisting of ambulatory clinics and hospital sitesin [place], [place], [place] and [place]. This disclosure is being madepursuant to the Care Everywhere program and may not contain all information available regarding this patient. Last updated 18.[facility] Allergies No known active allergies Medications * [...]
--- OUTSIDE RECORDS SUMMARY | 2024-10-10 22:00 | XMS_ITS ---
Author Name Interface, [id number] Address [address] [place] [address] [facility] Address [address] [place] [address] Care Team Providers Care Gas Pit Worker Name Role Phone Mata Ledezma Unavailable Unavailable [...]
--- OUTSIDE RECORDS SUMMARY | 2024-10-10 22:00 | XMS_ITS | Patient Health Summary ---
Author Organization [facility] [employer] Address [address] [place] [address] Care Team Providers Care Label Maker Name Role Phone Unavailable Primary Care Provider Unavailabl e Note from [facility] [employer] [facility],non-owned Affiliates and Associated Physician Practices is amultiple site organization consisting of ambulatory clinics and hospital sitesin [place], [place], [place] and [place]. This disclosure is being madepursuant to the Care Everywhere program and may not contain all information available regarding this patient. Last updated 18.[facility] [employer] Allergies No known active allergies Medications * [...] OCCULT BLOOD FECES (01/12/2015 2:25 PM CDT) [facility] Occult Blood Negative Negative 01/12/2015 2:46 PM CDT [facility] Stool STOOL SPECIMEN / Unknown 01/12/2015 2:25 PM CDT 01/12/2015 2:41 PM CDT Virginie Weathers [employer] [facility] LAB - BODY FLUID ORDERABLES Performing Organization Address City/[facility]/ZIP Co de Phone Number [facility] [address] [place] [phone] * (ABNORMAL) GLUCOSE - POINT OF CARE (01/12/2015 12:55 PM CDT) Only the most recent of6 resultswithin the time period is included. [facility] Glucose WB/POC 124(H) 70 - 106 mg/dL 01/12/2015 12:57 PM CDT [facility] Blood BLOOD SPECIMEN / Unknown 01/12/2015 12:55 PM CDT 01/12/2015 12:57 PM CDT Claire Moody MD LAB - POINT OF CARE ORDERABLES Performing Organization Address City/[facility]/ZIP Co de Phone Number [facility] [address] [place] [phone] * (ABNORMAL) CBC W AUTO DIFFERENTIAL (01/12/2015 5:55 AM CDT) Only the most recent of3 resultswithin the time period is included. [facility] WBC 4.0(L) 4.4 - 10.7 x10^9/L 01/12/2015 6:28 AM CDT [facility] WBC Corrected x10^9/L 01/12/2015 6:28 AM CDT [facility] RBC 5.35 3.80 - 5.40 x10^12/L 01/12/2015 6:28 AM CDT [facility] Hemoglobin 13.1 12.0 - 17.6 gm/dL 01/12/2015 6:28 AM [facility] Hematocrit 40.1 35.2 - 51.7 % 01/12/2015 6:28 AM [facility] MCV 75.0(L) 80.7 - 98.3 fl 01/12/2015 6:28 AM [facility] MCH 24.5(L) 26.7 - 34.0 pg 01/12/2015 6:28 AM [facility] MCHC 32.7 30.8 - 35.9 gm/dL 01/12/2015 6:28 AM [facility] Platelet Count 210 153 - 416 x10^9/L 01/12/2015 6:28 AM [facility] RDW-CV 14.4 12.1 - 14.9 % 01/12/2015 6:28 AM [facility] MPV 9.0(L) 9.4 - 12.9 fl 01/12/2015 6:28 AM [facility] Neutrophils % 51.4 44.0 - 73.0 % 01/12/2015 6:28 AM [facility] Lymphocytes % 39.2 20.0 - 43.0 % 01/12/2015 6:28 AM [facility] Monocytes % 6.3 5.0 - 13.0 % 01/12/2015 6:28 AM [facility] Eosinophils % 2.3 0.0 - 6.0 % 01/12/2015 6:28 AM [facility] Basophils % 0.5 0.0 - 2.0 % 01/12/2015 6:28 AM [facility] Immature Granulocytes 0.3 0 - 1 % 01/12/2015 6:28 AM [facility] Neutrophil Absolute 2.05 2.01 - 7.14 x10^9/L 01/12/2015 6:28 AM [facility] Lymphocytes Absolute 1.56 1.07 - 3.94 x10^9/L 01/12/2015 6:28 AM [facility] Monocytes Absolute 0.25(L) 0.26 - 1.07 x10^9/L 01/12/2015 6:28 AM [facility] Eosinophils Absolute 0.09 0 - 0.47 x10^9/L 01/12/2015 6:28 AM [facility] Basophils Absolute 0.02 0 - 0.08 x10^9/L 01/12/2015 6:28 AM [facility] Immature Granulocytes Absolute 0.01 0.00 - 0.06 x10^9/L 01/12/2015 6:28 AM [facility] Blood BLOOD SPECIMEN / Unknown Lab Venipuncture / Unknown 01/12/2015 5:55 AM CDT 01/12/2015 6:13 AM CDT Claire Moody MD LAB - HEMATO LOGY ORDERABLES [facility] [address] [place] [address] * (ABNORMAL) BASIC METABOLIC PANEL (CALCIUM TOTAL) (01/12/2015 5:55 AM CDT) Glucose 158(H) 74 - 106 mg/dL 01/12/2015 6:31 AM [facility] Sodium 134(L) 136 - 145 mmol/L 01/12/2015 6:31 AM [facility] Potassium 3.7 3.5 - 5.1 mmol/L 01/12/2015 6:31 AM [facility] Chloride 99 98 - 107 mmol/L 01/12/2015 6:31 AM [facility] CO2 27 22 - 31 mmol/L 01/12/2015 6:31 AM [facility] Calcium 8.8 8.5 - 10.1 mg/dL 01/12/2015 6:31 AM [facility] Anion Gap 8 5 - 15 mmol/L 01/12/2015 6:31 AM [facility] BUN 8 7 - 21 mg/dL 01/12/2015 6:31 AM [facility] Creatinine 0.83 0.50 - 1.30 mg/dL 01/12/2015 6:31 AM [facility] eGFR by MDRD >60 >60 mL/min/1.7 3m2 01/12/2015 6:31 AM [facility] eGFR by MDRD >60 >60 mL/min/1.7 3m2 01/12/2015 6:31 AM CDT [facility] Blood BLOOD SPECIMEN / Unknown Lab Venipuncture / Unknown 01/12/2015 5:55 AM CDT 01/12/2015 6:13 AM CDT Claire Moody MD LAB - CHEMIS TRY ORDERABLES [facility] [address] [place] [address] * XR ABD OBSTR SERIES (01/11/2015 8:21 [...] IMPRESSION No acute abnormality identified. Virginie Weathers [employer] [employer] DIAGNOSTIC IMAGI NG ORDERABLES * (ABNORMAL) HEMOGLOBIN A1C (01/11/2015 5:20 AM CDT) Hemoglobin A1c 8.1(H) 4.2 - 6.3 % 01/11/2015 6:11 AM T [facility] Estimated Average Glucose 186 mg/dL 01/11/2015 6:11 AM T [facility] Whole Blood BLOOD SPECIMEN WITH EDTA / Unknown Lab Venipuncture / Unknown 01/11/2015 5:20 AM CDT 01/11/2015 5:50 AM CDT [facility] - CHEMISTRY ORDERABLES Performing Organization Address [facility] Co de Phone Number [facility] [address] [place] [phone] * PT PTT PANEL (01/11/2015 5:20 AM CDT) PT 11.2 9.5 - 11.6 sec 01/11/2015 6:08 AM T [facility] INR 1.1 0.9 - 1.1 01/11/2015 6:08 AM T [facility] PTT 25.6 21.0 - 32.0 sec 01/11/2015 6:08 AM T [facility] Blood BLOOD SPECIMEN / Unknown Lab Venipuncture / Unknown 01/11/2015 5:20 AM CDT 01/11/2015 5:50 AM CDT Narrative [facility] - 01/11/2015 6:08 AM CDT Conventional Warfarin Anticoagulant Therapy INR Reference Range: 2.0-3.0 Intensive Warfarin Anticoagulant Therapy INR Reference Range: 2.5-3.5 Heparin Therapeutic Range for PTT: 44.4 - 78.3 seconds. Virginie Weathers [facility] - COAGULATIO N ORDERABLES Performing Organization Address [facility] Co de Phone Number [facility] [address] [place] [phone] * (ABNORMAL) COMPREHENSIVE METABOLIC PANEL (01/11/2015 5:20 AM CDT) Glucose 126(H) 74 - 106 mg/dL 01/11/2015 6:13 AM T [facility] Sodium 136 136 - 145 mmol/L 01/11/2015 6:13 AM [facility] Potassium 3.8 3.5 - 5.1 mmol/L 01/11/2015 6:13 AM [facility] Chloride 102 98 - 107 mmol/L 01/11/2015 6:13 AM [facility] CO2 26 22 - 31 mmol/L 01/11/2015 6:13 AM [facility] Calcium 8.3(L) 8.5 - 10.1 mg/dL 01/11/2015 6:13 AM [facility] Anion Gap 8 5 - 15 mmol/L 01/11/2015 6:13 AM [facility] BUN 8 7 - 21 mg/dL 01/11/2015 6:13 AM [facility] Creatinine 1.00 0.50 - 1.30 mg/dL 01/11/2015 6:13 AM [facility] eGFR by MDRD >60 >60 mL/min/1.7 3m2 01/11/2015 6:13 AM [facility] eGFR by MDRD >60 >60 mL/min/1.7 2 01/11/2015 6:13 AM [facility] Alkaline Phosphatase 74 38 - 126 U/L 01/11/2015 6:13 AM [facility] ALT 54 12 - 78 U/L 01/11/2015 6:13 AM [facility] AST 26 5 - 40 U/L 01/11/2015 6:13 AM [facility] Protein Total 6.7 6.4 - 8.2 gm/dL 01/11/2015 6:13 AM [facility] Albumin 3.4 3.4 - 5.0 gm/dL 01/11/2015 6:13 AM [facility] Bilirubin Total 0.6 0.2 - 1.0 mg/dL 01/11/2015 6:13 AM [facility] Blood BLOOD SPECIMEN / Unknown Lab Venipuncture / Unknown 01/11/2015 5:20 AM CDT 01/11/2015 5:50 AM T Virginie Weathers [employer] LAB - CHEMISTRY ORDERABLES [facility] [address] [place] [address] * CT ABDOMEN AND PELVIS WITH IV [...] Yellow, Dark Yellow 01/10/2015 3:25 PM CDT [facility] Clarity UA Clear 01/10/2015 3:25 PM CDT [facility] Specific Calypso UA 1.020 1.005 - 1.030 01/10/2015 3:25 PM CDT [facility] pH UA 6.0 5.0 - 8.0 pH 01/10/2015 3:25 PM CDT [facility] Protein UA Negative Negative 01/10/2015 3:25 PM CDT [facility] Blood UA Negative Negative 01/10/2015 3:25 PM CDT [facility] Leukocyte UA Negative Negative 01/10/2015 3:25 PM CDT [facility] Nitrite UA Negative Negative 01/10/2015 3:25 PM CDT [facility] Glucose UA Negative Negative 01/10/2015 3:25 PM CDT [facility] Ketone UA Negative Negative 01/10/2015 3:25 PM CDT [facility] Bilirubin UA Negative Negative 01/10/2015 3:25 PM CDT [facility] Urobilinogen UA 0.2 0.1 - 1.0 EU/dL 01/10/2015 3:25 PM CDT [facility] Reflex Status Culture not indicated 01/10/2015 3:25 PM CDT [facility] Urine URINE SPECIMEN OBTAINED BY CLEAN CATCH PROCEDURE / Unknown 01/10/2015 3:22 PM CDT 01/10/2015 3:22 PM CDT Alberto Mayen MD LAB - URINALYSIS ORD ERABLES [facility] [address] [place], [place] [address] * OCCULT BLOOD FECES - POINT OF CARE (IP) (01/10/2015 3:03 PM CDT) Occult Blood negative Negative [facility] P OCT TESTING QC Verified Yes Yes [facility] PO CT TESTING Card Exp Date yes Yes [facility] POCT TESTING Stool specimen (specimen) STOOL SPECIMEN / Unknown 01/10/2015 3:03 PM CDT Alberto Mayen MD LAB - POINT OF CARE ORDERABLES [facility] POCT TESTING [address] [place] [address], [facility] * (ABNORMAL) ISTAT CHEM8+ PANEL YAN (01/10/2015 2:19 PM CDT) [facility] Glucose Venous POCT 154(H) 74 - 106 [...] LAB - POINT OF CARE ORDERABLES [facility] [address] [place] [address], [facility] * HEPATIC FUNCTION PANEL (01/10/2015 2:19 PM CDT) Alkaline Phosphatase 94 38 - 126 U/L 01/10/2015 3:22 PM CDT [facility] ALT 66 12 - 78 U/L 01/10/2015 3:22 PM CDT [facility] AST 30 5 - 40 U/L 01/10/2015 3:22 PM CDT [facility] Protein Total 7.8 6.4 - 8.2 gm/dL 01/10/2015 3:22 PM CDT [facility] Albumin 4.2 3.4 - 5.0 gm/dL 01/10/2015 3:22 PM CDT [facility] Bilirubin Total 0.4 0.2 - 1.0 mg/dL 01/10/2015 3:22 PM CDT [facility] Bilirubin Direct <0.1 0 - 0.3 mg/dL 01/10/2015 3:22 PM CDT [facility] Blood BLOOD SPECIMEN / Unknown 01/10/2015 2:19 PM CDT 01/10/2015 2:55 PM CDT Alberto Mayen MD LAB - CHEMISTRY ORDE BIMAL Performing Organization Address [facility]/ZIP Co de Phone Number [facility] [address] [place] [address] * LIPASE BLOOD (01/10/2015 2:19 PM CDT) Pathologist [facility] Lipase 146 73 - 393 U/L 01/10/2015 3:23 PM CDT [facility] Blood BLOOD SPECIMEN / Unknown 01/10/2015 2:19 PM CDT 01/10/2015 2:55 PM CDT Alberto Mayen MD LAB - CHEMISTRY ORDRadha WALLIS Performing Organization Address [facility]/ZIP Co de Phone Number [facility] [address] [place] [address] * BMP w CA+ IONIZED iSTAT POC in [facility] (01/10/2015 2:16 PM CDT) Comment Notification Label 01/10/2015 4:00 PM CDT [facility] Blood BLOOD SPECIMEN / Unknown 01/10/2015 2:16 PM CDT 01/10/2015 2:16 PM CDT Alberto Mayen MD LAB BLOOD ORDERABLES [facility] [address] [place] [id number]
--- OUTSIDE RECORDS SUMMARY | 2024-10-10 22:00 | XMS_ITS | CCD ---
Author Name Interface, [id number] yuliana Address [address] [place] [address] [facility] ecLAN mcintosh Address [address] [place] [address] Care Team Providers Care Dentist Private Practice Name Role Phone Mata Ledezma Unavailable Unavailable [...]
--- OUTSIDE RECORDS SUMMARY | 2024-10-10 22:00 | XMS_ITS | Referral Summary ---
Author Organization [facility] Address [address] [place] [address] Care Team Providers Care Set Designer Name Role Phone Monique Garcia MD Unavailable [phone] Monique Garcia MD Unavailable [phone] Nathan Martinez MD Primary Care Provider [phone] Encounters Date Type Department Care Team Description 09/01/2024 Telephone [facility] Medical [facility] Primary Care [address] [place] [phone] Nathan Martinez MD Forms Request 08/27/2024 Orders Only [facility] Health Information Management [address] [place] [id number] Scanning, Provider 08/08/2024 11:00 AM RELAY TECHNICIAN Office Visit [facility] [address] [place] [phone] Nathan Martinez MD Type 2 diabetes mellitus [...] complication, without long-term current use of insulin ([facility]) 05/21/2023 Assessment & Plan (05/02/2024 3:03 PM CDT): A1c today. Continue glipizide/Ozempic at same dosage. A1c is higher. Increase Ozempic to 1 mg Assessment & Plan (10/15/2023 11:29 AM RELAY TECHNICIAN): A1c today . Continue glipizide/Trulicity at same [...] 09/12/2022 Assessment & Plan (09/12/2022 9:35 AM RELAY TECHNICIAN): Some tinnitus for 2 months. Possible hearing loss. Ear canals normal today drums normal ENT refer Lipidemia 09/11/2022 Assessment & Plan (08/05/2024 2:15 PM RELAY TECHNICIAN): Continue atorvastatin same dosage. Needs repeat lipid Assessment & Plan (05/01/2024 12:22 PM CDT): Needs repeat lipids. Continue atorvastatin at same dose. Assessment & Plan (01/07/2024 4:08 PM CDT): Continue atorvastatin same dosage but needs repeat lipids. Assessment & Plan (10/15/2023 11:35 AM RELAY TECHNICIAN): Continue atorvastatin at same dosage. Well controlled. Assessment & Plan (06/23/2023 2:03 PM CDT): Continue Lipitor same dosage but needs repeat lipids. Assessment & Plan (01/15/2023 1:58 PM CDT): Continue atorvastatin same dosage but needs repeat lipids Assessment & Plan (09/11/2022 3:45 PM RELAY TECHNICIAN): Continue atorvastatin same dosage Acute left ankle [...] counseling. Assessment & Plan (10/15/2023 12:07 PM RELAY TECHNICIAN): Diabetic foot exam: Left monofilament exam: normal [...] surgeon Assessment & Plan (09/02/2021 8:59 AM RELAY TECHNICIAN): Pain most recently is in the right [...] 09/02/2021 Assessment & Plan (09/02/2021 9:00 AM RELAY TECHNICIAN): Refer to Dermatology Chronic abdominal pain 08/30/2021 Assessment & Plan (05/02/2024 3:02 PM CDT): History of multiple adhesions and several times he has had to had bowel obstruction treated. Constant pain. Worse about 30 minutes after eating. Referral to GI. Left lower quadrant Assessment & Plan (09/16/2021 9:44 AM RELAY TECHNICIAN): Try peppermint oil pill daily. Discontinue Levbid. Refer to GI. Needs colonoscopy. Assessment & Plan (09/02/2021 8:59 AM RELAY TECHNICIAN): Previous pain is similar to this pain [...] 10/08/2020 Assessment & Plan (08/05/2024 2:14 PM RELAY TECHNICIAN): Continue Provigil at same dosage. Well controlled. Return 3 months Assessment & Plan (05/01/2024 12:20 PM CDT): Continue Provigil at same dosage. Well controlled. Return 3 months Assessment & Plan (01/07/2024 4:03 PM CDT): Continue Provigil at same dosage. Well controlled. Assessment & Plan (10/16/2023 1:08 PM RELAY TECHNICIAN): Takes Provigil off-label. Adequate control with medicine. [...] usage. Assessment & Plan (09/13/2021 9:27 AM RELAY TECHNICIAN): Continue modafinil at same dosage. Well controlled. No signs of toxicity and patient understands this is off-label treatment Assessment & Plan (08/30/2021 7:27 AM RELAY TECHNICIAN): Allow modafinil as no evidence of toxicity and evidence of benefit Assessment & Plan (06/11/2021 1:30 PM CDT): Continue Provigil at same dosage. Well controlled. Assessment & Plan (02/08/2021 10:32 AM CDT): Continue modafinil at same dosage. Well controlled. Assessment & Plan (11/09/2020 1:42 PM CDT): Allow modafinil but understands off-label Assessment & Plan (10/08/2020 10:45 AM RELAY TECHNICIAN): Previously diagnosed with this by psychiatrist at [place]. good response previously to modafinil but I [...] PFTs Assessment & Plan (10/08/2020 10:46 AM RELAY TECHNICIAN): Much improved Assessment & Plan (09/10/2020 10:03 AM RELAY TECHNICIAN): Mainly with exertion and will refer to [...] disease Assessment & Plan (10/08/2020 10:45 AM RELAY TECHNICIAN): Much improved Assessment & Plan (09/10/2020 9:58 AM RELAY TECHNICIAN): Persisting cough and will refer to Pulmonary for Rash 09/10/2020 Assessment & Plan (10/08/2020 10:45 AM RELAY TECHNICIAN): Much improved Assessment & Plan (09/10/2020 10:02 AM RELAY TECHNICIAN): There is a dry Pash of eczematoid type rash on his back that is different than psoriasis he has other areas. We will give him some topical hydrocortisone cream but not to use longer than 2 weeks as risk of atrophy and tolerance. Nasal polyp 09/10/2020 Assessment & Plan (09/10/2020 10:07 AM RELAY TECHNICIAN): ENT referral Anemia 09/09/2020 Assessment & Plan (09/09/2020 1:03 PM RELAY TECHNICIAN): Needs iron studies and methylmalonic acid level. Needs to have colonoscopy done. Type 2 diabetes mellitus wit h hyperglycemia, without long-term current use of insulin 06/08/2020 Assessment & Plan (08/08/2024 11:33 AM RELAY TECHNICIAN): A1c today. Is improved at 7.0. Continue [...] controlled. Assessment & Plan (09/11/2022 3:47 PM RELAY TECHNICIAN): A1C TODAY.BMI Follow-up includes: nutrition counseling and [...] weekly Assessment & Plan (09/16/2021 9:43 AM RELAY TECHNICIAN): A1c today. Diabetes needing better control. No hypoglycemic symptoms. Metformin, Jardiance, and glipizide daily. No significant improvement and will add Trulicity 0.75 mg weekly Assessment & Plan (08/30/2021 7:25 AM RELAY TECHNICIAN): A1c today. Assessment & Plan (06/17/2021 10:38 [...] today. Assessment & Plan (10/08/2020 10:42 AM RELAY TECHNICIAN): Check fasting blood sugar today. Result is 415 no he has had better sugars at home. No hypoglycemic symptoms will increase Jardiance to 25 mg daily as he has had no side effects. Assessment & Plan (09/10/2020 9:58 AM RELAY TECHNICIAN): Needs better control. Medication options discussed. Risk [...] controlled. Assessment & Plan (10/15/2023 11:36 AM RELAY TECHNICIAN): Continue trazodone at same dosage. Well controlled. Assessment & Plan (06/23/2023 2:04 PM CDT): Continue trazodone same dosage. Well controlled. Assessment & Plan (01/15/2023 1:59 PM CDT): Continue trazodone at same dosage. Well controlled. Assessment & Plan (09/11/2022 3:44 PM RELAY TECHNICIAN): Continue trazodone Assessment & Plan (05/02/2022 11:04 AM CDT): Continue trazodone at same dosage. Well controlled. Assessment & Plan (12/13/2021 9:57 AM CDT): Continue trazodone at same dosage. Well controlled. Assessment & Plan (08/30/2021 7:26 AM RELAY TECHNICIAN): Continue trazodone at same dosage. Well controlled. Assessment & Plan (06/11/2021 1:30 PM CDT): Continue trazodone at same dosage. Well controlled. Assessment & Plan (02/08/2021 10:36 AM CDT): Continue trazodone at same dosage. Well controlled. Assessment & Plan (10/08/2020 10:31 AM RELAY TECHNICIAN): Improved. Continue trazodone 100 mg Assessment & Plan (09/10/2020 10:00 AM RELAY TECHNICIAN): Increase trazodone to 100 mg needs better control Assessment & Plan (06/08/2020 10:30 AM CDT): Continue medication at same dosage. Well controlled. Major depression in remission 06/08/2020 Assessment & Plan (08/05/2024 2:13 PM RELAY TECHNICIAN): Continue Lexapro at same dosage. Well controlled. Assessment & Plan (05/01/2024 12:21 PM CDT): Continue Lexapro at same dosage. Well controlled. Assessment & Plan (01/07/2024 4:04 PM CDT): Continue Lexapro at same dosage. Well controlled. Assessment & Plan (10/15/2023 11:35 AM RELAY TECHNICIAN): Continue Lexapro at same dosage. Well controlled. Assessment & Plan (06/23/2023 2:07 PM CDT): Continue Lexapro at same dosage. Well controlled. Assessment & Plan (01/15/2023 2:00 PM CDT): Continue Lexapro at same dosage. Well controlled. Assessment & Plan (09/11/2022 3:44 PM RELAY TECHNICIAN): Continue Lexapro at same dosage. Well controlled. Assessment & Plan (05/02/2022 11:00 AM CDT): Continue Lexapro at same dosage. Well controlled. Assessment & Plan (12/13/2021 9:57 AM CDT): Continue Lexapro at same dosage. Well controlled. Assessment & Plan (08/30/2021 7:26 AM RELAY TECHNICIAN): Continue Lexapro at same dosage. Well controlled. Assessment & Plan (06/11/2021 1:30 PM CDT): Continue Lexapro at same dosage. Well controlled. Assessment & Plan (02/08/2021 10:33 AM CDT): Continue Lexapro at same dosage. Well controlled. Assessment & Plan (11/09/2020 1:42 PM CDT): Continue Lexapro at same dosage. Well controlled. Assessment & Plan (09/09/2020 1:01 PM RELAY TECHNICIAN): Continue medication at same dosage. Well controlled. [...] Comments Blood Pressure 124/82 08/08/2024 11:17 AM RELAY TECHNICIAN Pulse 86 08/08/2024 11:17 AM RELAY TECHNICIAN Temperature 36.7 C (98 F) 08/08/2024 11:17 AM RELAY TECHNICIAN Respiratory Rate 18 08/08/2024 11:1 7 AM RELAY TECHNICIAN Oxygen Saturation 98% 08/08/2024 11: 17 AM RELAY TECHNICIAN Inhaled Oxygen Concentration - - Weight 89.3 kg (196 lb 12.8 oz) 024 11:17 AM RELAY TECHNICIAN Height 180.3 cm (5' 10.98 ) 08/08/2024 11:17 AM RELAY TECHNICIAN Body Mass Index 27.46 08/08/2024 11:17 AM RELAY TECHNICIAN Plan of Treatment Not on file Procedures Procedure Name Priority Date/Time Associated Diagnosis Comments SCAN - RADIOLOGY/IMAGING 08/27/2024 POCT HEMOGLOBIN A1C Routine 08/08/2024 1 1:33 AM RELAY TECHNICIAN Type 2 diabetes mellitus with hyperglycemia, without long-term current use of insulin ([facility]) COLONOSCOPY Routine 05/09/2024 7:50 AM CDT ALBUMIN CREATININE RATIO, URINE Routine 05/05/2022 9:04 AM CDT Type 2 diabetes mellitus with hyperglycemia, without long-term current use of insulin ([facility]) (HCC) EGFR STAT 09/02/2021 9:48 AM RELAY TECHNICIAN from Last 3 Months or Most Recently Relevant to Health Maintenance Results * SCAN - RADIOLOGY/IMAGING (08/27/2024) Anatomical Region Laterality Modality Other us Provider Scanning Final Result * (ABNORMAL) POCT hemoglobin A1c (08/08/2024 11:33 AM RELAY TECHNICIAN) Hemoglobin A1C, POC 7.0 4.0 - 5.6 % Blood 08/08/2024 11:3 3 AM RELAY TECHNICIAN Nathan Martinez MD POINT OF CARE TEST [...] LAB URINE ORDERABLES Final Result [facility] [address] [place] [address] * eGFR (09/02/2021 9:48 AM RELAY TECHNICIAN) eGFR 91 mL/min/1. 73 m2 [facility] RAYMNUDO Comment: Interpretive Data Reference Interval Normal >/= [...] last reviewed 2021. Testing performed by: [facility], [address] [place] [address]., [id number] Blood 09/02/2021 9:48 AM RELAY TECHNICIAN 09/02/2021 9:53 AM RELAY TECHNICIAN Jennifer MONTENEGRO LAB BLOOD ORDERABLE S Final Result [facility] [address] [facility] Department [place] [address] from Last 3 Months or Most Recently Relevant to Health Maintenance Insurance [address] [id number] [facility] [employer] Address: [address] [phone] [address] [phone] [facility] [employer] Address: [address] [address] [facility] CLAIMS Care Teams Set Designer Relationship Specialty Start Date End Date Nathan Martinez MD PCP - General Family Practice 09/10/20 Monique Garcia MD Referring Physician Gastroenterology 06/11/20 Monique Garcia MD Referring Physician Gastroenterology 06/11/20
--- OUTSIDE RECORDS SUMMARY | 2024-10-10 22:00 | XMS_ITS | Referral Summary ---
Author Organization [facility] Address [address] [place] [address] Care Team Providers Care Wood Barrel Reconditioner Name Role Phone Unavailable Primary Care Provider Unavailabl e Source Comments [facility],non-owned Affiliates and Associated Physician Practices is amultiple site organization consisting of ambulatory clinics and hospital sitesin [place], [place], [place] and [place]. This disclosure is being madepursuant to the Care Everywhere program and may not contain all information available regarding this patient. Last updated 18.[facility] Allergies No known active allergies Medications * [...]
--- OUTSIDE RECORDS SUMMARY | 2024-10-10 22:00 | XMS_ITS | CCD ---
Author Name Interface, [id number] yuliana Address [address] [place] [address] [facility] mcintosh Address [address] [place] [address] Care Team Providers Care Milking Machine Technician Name Role Phone Mata Ledezma Unavailable Unavailable [...]
--- OUTSIDE RECORDS SUMMARY | 2024-10-10 22:00 | XMS_ITS | Clinical Summary ---
Author Organization [facility] Address [address] [place] [address] Care Team Providers Care Immersion Metal Cleaner Name Role Phone Monique Garcia MD Unavailable [phone] Monique Garcia MD Unavailable [phone] Nathan Martinez MD Primary Care Provider [phone] Allergies Active Allergy Reactions Criticality Noted Date [...] complication, without long-term current use of insulin ([facility]) 05/21/2023 Assessment & Plan (05/02/2024 3:03 PM CDT): A1c today. Continue glipizide/Ozempic at same dosage. A1c is higher. Increase Ozempic to 1 mg Assessment & Plan (10/15/2023 11:29 AM PRESCHOOL ASSOCIATE TEACHER): A1c today . Continue glipizide/Trulicity at same [...] 09/12/2022 Assessment & Plan (09/12/2022 9:35 AM PRESCHOOL ASSOCIATE TEACHER): Some tinnitus for 2 months. Possible hearing loss. Ear canals normal today drums normal ENT refer Lipidemia 09/11/2022 Assessment & Plan (08/05/2024 2:15 PM PRESCHOOL ASSOCIATE TEACHER): Continue atorvastatin same dosage. Needs repeat lipid Assessment & Plan (05/01/2024 12:22 PM CDT): Needs repeat lipids. Continue atorvastatin at same dose. Assessment & Plan (01/07/2024 4:08 PM CDT): Continue atorvastatin same dosage but needs repeat lipids. Assessment & Plan (10/15/2023 11:35 AM PRESCHOOL ASSOCIATE TEACHER): Continue atorvastatin at same dosage. Well controlled. Assessment & Plan (06/23/2023 2:03 PM CDT): Continue Lipitor same dosage but needs repeat lipids. Assessment & Plan (01/15/2023 1:58 PM CDT): Continue atorvastatin same dosage but needs repeat lipids Assessment & Plan (09/11/2022 3:45 PM PRESCHOOL ASSOCIATE TEACHER): Continue atorvastatin same dosage Acute left ankle [...] counseling. Assessment & Plan (10/15/2023 12:07 PM PRESCHOOL ASSOCIATE TEACHER): Diabetic foot exam: Left monofilament exam: normal [...] surgeon Assessment & Plan (09/02/2021 8:59 AM PRESCHOOL ASSOCIATE TEACHER): Pain most recently is in the right [...] 09/02/2021 Assessment & Plan (09/02/2021 9:00 AM PRESCHOOL ASSOCIATE TEACHER): Refer to Dermatology Chronic abdominal pain 08/30/2021 Assessment & Plan (05/02/2024 3:02 PM CDT): History of multiple adhesions and several times he has had to had bowel obstruction treated. Constant pain. Worse about 30 minutes after eating. Referral to GI. Left lower quadrant Assessment & Plan (09/16/2021 9:44 AM PRESCHOOL ASSOCIATE TEACHER): Try peppermint oil pill daily. Discontinue Levbid. Refer to GI. Needs colonoscopy. Assessment & Plan (09/02/2021 8:59 AM PRESCHOOL ASSOCIATE TEACHER): Previous pain is similar to this pain [...] 10/08/2020 Assessment & Plan (08/05/2024 2:14 PM PRESCHOOL ASSOCIATE TEACHER): Continue Provigil at same dosage. Well controlled. Return 3 months Assessment & Plan (05/01/2024 12:20 PM CDT): Continue Provigil at same dosage. Well controlled. Return 3 months Assessment & Plan (01/07/2024 4:03 PM CDT): Continue Provigil at same dosage. Well controlled. Assessment & Plan (10/16/2023 1:08 PM PRESCHOOL ASSOCIATE TEACHER): Takes Provigil off-label. Adequate control with medicine. [...] usage. Assessment & Plan (09/13/2021 9:27 AM PRESCHOOL ASSOCIATE TEACHER): Continue modafinil at same dosage. Well controlled. No signs of toxicity and patient understands this is off-label treatment Assessment & Plan (08/30/2021 7:27 AM PRESCHOOL ASSOCIATE TEACHER): Allow modafinil as no evidence of toxicity and evidence of benefit Assessment & Plan (06/11/2021 1:30 PM CDT): Continue Provigil at same dosage. Well controlled. Assessment & Plan (02/08/2021 10:32 AM CDT): Continue modafinil at same dosage. Well controlled. Assessment & Plan (11/09/2020 1:42 PM CDT): Allow modafinil but understands off-label Assessment & Plan (10/08/2020 10:45 AM PRESCHOOL ASSOCIATE TEACHER): Previously diagnosed with this by psychiatrist at [facility]. good response previously to modafinil but I [...] PFTs Assessment & Plan (10/08/2020 10:46 AM PRESCHOOL ASSOCIATE TEACHER): Much improved Assessment & Plan (09/10/2020 10:03 AM PRESCHOOL ASSOCIATE TEACHER): Mainly with exertion and will refer to [...] disease Assessment & Plan (10/08/2020 10:45 AM PRESCHOOL ASSOCIATE TEACHER): Much improved Assessment & Plan (09/10/2020 9:58 AM PRESCHOOL ASSOCIATE TEACHER): Persisting cough and will refer to Pulmonary for Rash 09/10/2020 Assessment & Plan (10/08/2020 10:45 AM PRESCHOOL ASSOCIATE TEACHER): Much improved Assessment & Plan (09/10/2020 10:02 AM PRESCHOOL ASSOCIATE TEACHER): There is a dry Pash of eczematoid type rash on his back that is different than psoriasis he has other areas. We will give him some topical hydrocortisone cream but not to use longer than 2 weeks as risk of atrophy and tolerance. Nasal polyp 09/10/2020 Assessment & Plan (09/10/2020 10:07 AM PRESCHOOL ASSOCIATE TEACHER): ENT referral Anemia 09/09/2020 Assessment & Plan (09/09/2020 1:03 PM PRESCHOOL ASSOCIATE TEACHER): Needs iron studies and methylmalonic acid level. Needs to have colonoscopy done. Type 2 diabetes mellitus wit h hyperglycemia, without long-term current use of insulin 06/08/2020 Assessment & Plan (08/08/2024 11:33 AM PRESCHOOL ASSOCIATE TEACHER): A1c today. Is improved at 7.0. Continue [...] controlled. Assessment & Plan (09/11/2022 3:47 PM PRESCHOOL ASSOCIATE TEACHER): A1C TODAY.BMI Follow-up includes: nutrition counseling and [...] weekly Assessment & Plan (09/16/2021 9:43 AM PRESCHOOL ASSOCIATE TEACHER): A1c today. Diabetes needing better control. No hypoglycemic symptoms. Metformin, Jardiance, and glipizide daily. No significant improvement and will add Trulicity 0.75 mg weekly Assessment & Plan (08/30/2021 7:25 AM PRESCHOOL ASSOCIATE TEACHER): A1c today. Assessment & Plan (06/17/2021 10:38 [...] today. Assessment & Plan (10/08/2020 10:42 AM PRESCHOOL ASSOCIATE TEACHER): Check fasting blood sugar today. Result is 415 no he has had better sugars at home. No hypoglycemic symptoms will increase Jardiance to 25 mg daily as he has had no side effects. Assessment & Plan (09/10/2020 9:58 AM PRESCHOOL ASSOCIATE TEACHER): Needs better control. Medication options discussed. Risk [...] controlled. Assessment & Plan (10/15/2023 11:36 AM PRESCHOOL ASSOCIATE TEACHER): Continue trazodone at same dosage. Well controlled. Assessment & Plan (06/23/2023 2:04 PM CDT): Continue trazodone same dosage. Well controlled. Assessment & Plan (01/15/2023 1:59 PM CDT): Continue trazodone at same dosage. Well controlled. Assessment & Plan (09/11/2022 3:44 PM PRESCHOOL ASSOCIATE TEACHER): Continue trazodone Assessment & Plan (05/02/2022 11:04 AM CDT): Continue trazodone at same dosage. Well controlled. Assessment & Plan (12/13/2021 9:57 AM CDT): Continue trazodone at same dosage. Well controlled. Assessment & Plan (08/30/2021 7:26 AM PRESCHOOL ASSOCIATE TEACHER): Continue trazodone at same dosage. Well controlled. Assessment & Plan (06/11/2021 1:30 PM CDT): Continue trazodone at same dosage. Well controlled. Assessment & Plan (02/08/2021 10:36 AM CDT): Continue trazodone at same dosage. Well controlled. Assessment & Plan (10/08/2020 10:31 AM PRESCHOOL ASSOCIATE TEACHER): Improved. Continue trazodone 100 mg Assessment & Plan (09/10/2020 10:00 AM PRESCHOOL ASSOCIATE TEACHER): Increase trazodone to 100 mg needs better control Assessment & Plan (06/08/2020 10:30 AM CDT): Continue medication at same dosage. Well controlled. Major depression in remission 06/08/2020 Assessment & Plan (08/05/2024 2:13 PM PRESCHOOL ASSOCIATE TEACHER): Continue Lexapro at same dosage. Well controlled. Assessment & Plan (05/01/2024 12:21 PM CDT): Continue Lexapro at same dosage. Well controlled. Assessment & Plan (01/07/2024 4:04 PM CDT): Continue Lexapro at same dosage. Well controlled. Assessment & Plan (10/15/2023 11:35 AM PRESCHOOL ASSOCIATE TEACHER): Continue Lexapro at same dosage. Well controlled. Assessment & Plan (06/23/2023 2:07 PM CDT): Continue Lexapro at same dosage. Well controlled. Assessment & Plan (01/15/2023 2:00 PM CDT): Continue Lexapro at same dosage. Well controlled. Assessment & Plan (09/11/2022 3:44 PM PRESCHOOL ASSOCIATE TEACHER): Continue Lexapro at same dosage. Well controlled. Assessment & Plan (05/02/2022 11:00 AM CDT): Continue Lexapro at same dosage. Well controlled. Assessment & Plan (12/13/2021 9:57 AM CDT): Continue Lexapro at same dosage. Well controlled. Assessment & Plan (08/30/2021 7:26 AM PRESCHOOL ASSOCIATE TEACHER): Continue Lexapro at same dosage. Well controlled. Assessment & Plan (06/11/2021 1:30 PM CDT): Continue Lexapro at same dosage. Well controlled. Assessment & Plan (02/08/2021 10:33 AM CDT): Continue Lexapro at same dosage. Well controlled. Assessment & Plan (11/09/2020 1:42 PM CDT): Continue Lexapro at same dosage. Well controlled. Assessment & Plan (09/09/2020 1:01 PM PRESCHOOL ASSOCIATE TEACHER): Continue medication at same dosage. Well controlled. [...] Type Department Care Team Description 09/01/2024 Telephone [facility] [address] [place] [phone] Nathan Martinez MD Forms Request 08/27/2024 Orders Only [facility] Information Management [address] [place] [address] Scanning, Provider 08/08/2024 11:00 AM PRESCHOOL ASSOCIATE TEACHER Office Visit [facility] [address] [place] [address] Nathan Martinez MD Type 2 diabetes mellitus [...] Comments Blood Pressure 124/82 08/08/2024 11:17 AM PRESCHOOL ASSOCIATE TEACHER Pulse 86 08/08/2024 11:17 AM PRESCHOOL ASSOCIATE TEACHER Temperature 36.7 C (98 F) 08/08/2024 11:17 AM PRESCHOOL ASSOCIATE TEACHER Respiratory Rate 18 08/08/2024 11:1 7 AM PRESCHOOL ASSOCIATE TEACHER Oxygen Saturation 98% 08/08/2024 11: 17 AM PRESCHOOL ASSOCIATE TEACHER Inhaled Oxygen Concentration - - Weight 89.3 kg (196 lb 12.8 oz) 024 11:17 AM PRESCHOOL ASSOCIATE TEACHER Height 180.3 cm (5' 10.98 ) 08/08/2024 11:17 AM PRESCHOOL ASSOCIATE TEACHER Body Mass Index 27.46 08/08/2024 11:17 AM PRESCHOOL ASSOCIATE TEACHER Plan of Treatment Health Maintenance Due Date [...] HEMOGLOBIN A1C Routine 08/08/2024 1 1:33 AM PRESCHOOL ASSOCIATE TEACHER Type 2 diabetes mellitus with hyperglycemia, without long-term current use of insulin (HCC) COLONOSCOPY Routine 05/09/2024 7:50 AM CDT ALBUMIN CREATININE RATIO, URINE Routine 05/05/2022 9:04 AM CDT Type 2 diabetes mellitus with hyperglycemia, without long-term current use of insulin ([facility]/HCC) (HCC) EGFR STAT 09/02/2021 9:48 AM PRESCHOOL ASSOCIATE TEACHER from Last 3 Months or Most Recently Relevant to Health Maintenance Results * SCAN - RADIOLOGY/IMAGING (08/27/2024) Anatomical Region Laterality Modality Other us Provider Scanning Final Result * (ABNORMAL) POCT hemoglobin A1c (08/08/2024 11:33 AM PRESCHOOL ASSOCIATE TEACHER) Hemoglobin A1C, POC 7.0 4.0 - 5.6 % Blood 08/08/2024 11:3 3 AM PRESCHOOL ASSOCIATE TEACHER us Nathan Martinez MD POINT OF CARE [...] LAB URINE ORDERABLES Final Result [facility] [address] [place] [address] * eGFR (09/02/2021 9:48 AM PRESCHOOL ASSOCIATE TEACHER) eGFR 91 mL/min/1. 73 m2 TER[facility] RAYMUNDO [...] reviewed 2021. Testing performed by: [facility], [address] [place] [address]., [id number] Blood 09/02/2021 9:48 AM PRESCHOOL ASSOCIATE TEACHER 09/02/2021 9:53 AM PRESCHOOL ASSOCIATE TEACHER Jennifer MONTENEGRO LAB BLOOD ORDERABLE S Final Result [facility] [address] [facility] Department [place] [address] from Last 3 Months or Most Recently Relevant to Health Maintenance Insurance [address] CLAIMS Member Subscriber Plan / Payer (Ef fective 2020-Present) Name:Erich Allen Relation to Subscriber:Self Name:Erich Allen Payer ID:[id number] (NAIC) Group ID:Not on file Type:[employer] Address: [place] [phone] [address] [place] [id number] [facility] CLAIMS [facility] CLAIMS Care Teams Immersion Metal Cleaner Relationship Specialty Start Date End Date Nathan Martinez MD PCP - General Family Practice 09/10/20 Monique Garcia MD Referring Physician Gastroenterology 06/11/20 Monique Garcia MD Referring Physician Gastroenterology 06/11/20
--- OUTSIDE RECORDS SUMMARY | 2024-10-10 22:00 | XMS_ITS ---
Author Name Interface, [facility] [employer] Address [address] [place] [address] [facility] Address [address] [place] [address] Care Team Providers Care Supervisor Treating And Pumping Name Role Phone Mata Ledezma Unavailable Unavailable [...]
[2024-10-10] MEDS: HYDROcodone/acetaminophen (*CRX) 5-325 MG TABLET 1 TAB PO (22:05)
[2024-10-10] MEDS: ONDANSETRON INJ 4 MG/2 ML VIAL IV PUSH (22:05)
[2024-10-10] MEDS: SODIUM CHLORIDE 0.9% IV 1,000 ML 999 ML (22:16)
--- NOTE | 2024-10-10 22:17 | PC.NURSE ---
DEMOND EDP Zych, pt to receive NS fluids.
== END 2024-10-11 00:15 | disposition home or self-care (01) ==
PROVIDERS: Physician Assistant; Emergency Provider Emergency Medicine; PCP Family Medicine
DX: R10.32 Left lower quadrant pain (principal); G89.29 Other chronic pain; E11.9 Type 2 diabetes mellitus without complications; Z90.49 Acquired absence of other specified parts of digestive tract; F43.10 Post-traumatic stress disorder, unspecified; F32.A Depression, unspecified; Z79.899 Other long term (current) drug therapy; Z79.85 Long-term (current) use of injectable non-insulin antidiabetic drugs; K20.90 Esophagitis, unspecified without bleeding; K29.70 Gastritis, unspecified, without bleeding; K76.0 Fatty (change of) liver, not elsewhere classified; N40.0 Benign prostatic hyperplasia without lower urinary tract symptoms; R93.41 Abnormal radiologic findings on diagnostic imaging of renal pelvis, ureter, or bladder; R93.3 Abnormal findings on diagnostic imaging of other parts of digestive tract
CPT/HCPCS: 36415; 74177; 80053; 83690; 85025; 96374; 99284; A9270; J2405; J7030; Q9967

== ENCOUNTER 2024-11-10 16:08 | Emergency (ER) | payer OTHER, SELFPAY ==
--- NOTE | ~2024-11-10 | CT_ITS ---
CLINICAL INDICATION: Left lower quadrant pain COMPARISON: 10/10/2024 and dating back to 05/02/2024. TECHNIQUE: Multiple contiguous axial images of the abdomen and pelvis were performed following the ad ministration of with 100 mL Omnipaque-350 intravenous contrast The dose-length product (DLP) was 864.75 mGy-cm. Automated exposure control and iterative reconstruction technique were employed. FINDINGS/OBSERVATIONS: Visualized lower thorax: The bilateral lung bases are clear. The heart is of normal size, without pericardial effusion. Small hiatal hernia is present. Liver: The liver demonstrates homogeneous enhancement and is not enlarged measuring 18 cm in longitudinal di mension. Gallbladder and biliary system: The gallbladder is surgically absent. Pancreas: The pancreas enhances homogeneously without ductal dilatation. Spleen: The spleen enhances homogeneously and is not enlarged measuring 8 cm in longitudinal dimension. Kidneys: The bilateral kidneys enhance symmetrically without hydronephrosis or renal calculi. Adrenal glands: Unremarkable. Gastrointestinal tract: Enteric staple line within the pelvis. Appendix: Surgically absent. Vasculature: Unremarkable. Lymph nodes: No pathologically enlarged or morphologically suspicious lymph nodes within the retroperitoneum or at the root of the mesentery. Pelvic structures: The bladder is distended, and otherwise unremarkable. The prostate gland is not enlarged. Body wall and musculoskeletal: Small fat-containing umbilical hernia. No significant degenerative disease within the lower thoracic or lumbosacral spine. IMPRESSION: No acute intra-abdominal pathology, as detailed above. Reviewed, dictated and finalized at location A.
--- OUTSIDE RECORDS SUMMARY | 2024-11-10 16:12 | XMS_ITS | Clinical Summary ---
Author Organization [facility] [employer] Address [address] [place] [address] Care Team Providers Care Player Piano Technician Name Role Phone Unavailable Primary Care Provider Unavailabl e Source Comments [facility] [employer],non-owned Affiliates and Associated Physician Practices is amultiple site organization consisting of ambulatory clinics and hospital sitesin [place], [place], [place] and [place]. This disclosure is being madepursuant to the Care Everywhere program and may not contain all information available regarding this patient. Last updated 18.[facility] [employer] Allergies No known active allergies Medications * [...] to complete this topic MENINGOCOCCAL (Group B) VACC INE SHARED DECISION-MAKING Aged Out No longer eligibl e based on patient's age to complete this topic MENINGOCOCCAL GROUPS A/C/Y/W VACCINE Aged Out No longer eligible b ased on patient's age to complete this topic Advance Directives * Full Code (Latest Code Status on File) Date Activated Date Inactivated Comments 01/10/2015 10:22 PM 01/12/2015 5:26 PM
--- OUTSIDE RECORDS SUMMARY | 2024-11-10 16:12 | XMS_ITS | CCD ---
Author Name Interface, [id number] Address [address] [place] [address] [facility] Address [address] [place] [address] Care Team Providers Care Behavioral School Counselors Name Role Phone Mata Ledezma Unavailable Unavailable Reason for Visit Encounters Medications Problems Social History
--- OUTSIDE RECORDS SUMMARY | 2024-11-10 16:12 | XMS_ITS | Clinical Summary ---
Author Organization [facility] Address [address] [place] [address] Care Team Providers Care Training Development Specialist Name Role Phone Monique Garcia MD Unavailable Monique Garcia MD Unavailable [phone] Nathan Martinez MD Primary Care Provider [phone] Allergies Active Allergy Reactions Criticality Noted Date [...] by mouth daily 90 tablet 08/08/2024 Active HYDROcodone-jarvis taminophen (NORCO) 5-325 mg per tabletIndicatio ns:Pain Take 1 tablet by mouth every 4 (four) hours as needed for pain 15 tablet 10/15/[address] (PROTONIX) 40 mg EC tabletIndicatio ns:Treatment of Non-Bleeding Gastric Disorder Take 1 tablet (40 mg total) by mouth daily 30 tablet 11 10/16/2024 10/16/19 26 Active Active Problems Problem Noted Date Diagnosed Date Abdominal pain 10/12/2024 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 Continue glipizide/Ozempic at same dosage. A1c is higher. Increase Ozempic to 1 mg Assessment & Plan (10/15/2023 11:29 AM DIRECTOR OF PRIMARY): A1c today . Continue glipizide/Trulicity at same [...] 09/12/2022 Assessment & Plan (09/12/2022 9:35 AM DIRECTOR OF PRIMARY): Some tinnitus for 2 months. Possible hearing loss. Ear canals normal today drums normal ENT refer Lipidemia 09/11/2022 Assessment & Plan (08/05/2024 2:15 PM DIRECTOR OF PRIMARY): Continue atorvastatin same dosage. Needs repeat lipid Assessment & Plan (05/01/2024 12:22 PM CDT): Needs repeat lipids. Continue atorvastatin at same dose. Assessment & Plan (01/07/2024 4:08 PM CDT): Continue atorvastatin same dosage but needs repeat lipids. Assessment & Plan (10/15/2023 11:35 AM DIRECTOR OF PRIMARY): Continue atorvastatin at same dosage. Well controlled. Assessment & Plan (06/23/2023 2:03 PM CDT): Continue Lipitor same dosage but needs repeat lipids. Assessment & Plan (01/15/2023 1:58 PM CDT): Continue atorvastatin same dosage but needs repeat lipids Assessment & Plan (09/11/2022 3:45 PM DIRECTOR OF PRIMARY): Continue atorvastatin same dosage Acute left ankle [...] counseling. Assessment & Plan (10/15/2023 12:07 PM DIRECTOR OF PRIMARY): Diabetic foot exam: Left monofilament exam: normal [...] surgeon Assessment & Plan (09/02/2021 8:59 AM DIRECTOR OF PRIMARY): Pain most recently is in the right [...] 09/02/2021 Assessment & Plan (09/02/2021 9:00 AM DIRECTOR OF PRIMARY): Refer to Dermatology Chronic abdominal pain 08/30/2021 Assessment & Plan (05/02/2024 3:02 PM CDT): History of multiple adhesions and several times he has had to had bowel obstruction treated. Constant pain. Worse about 30 minutes after eating. Referral to GI. Left lower quadrant Assessment & Plan (09/16/2021 9:44 AM DIRECTOR OF PRIMARY): Try peppermint oil pill daily. Discontinue Levbid. Refer to GI. Needs colonoscopy. Assessment & Plan (09/02/2021 8:59 AM DIRECTOR OF PRIMARY): Previous pain is similar to this pain [...] 10/08/2020 Assessment & Plan (08/05/2024 2:14 PM DIRECTOR OF PRIMARY): Continue Provigil at same dosage. Well controlled. Return 3 months Assessment & Plan (05/01/2024 12:20 PM CDT): Continue Provigil at same dosage. Well controlled. Return 3 months Assessment & Plan (01/07/2024 4:03 PM CDT): Continue Provigil at same dosage. Well controlled. Assessment & Plan (10/16/2023 1:08 PM DIRECTOR OF PRIMARY): Takes Provigil off-label. Adequate control with medicine. [...] usage. Assessment & Plan (09/13/2021 9:27 AM DIRECTOR OF PRIMARY): Continue modafinil at same dosage. Well controlled. No signs of toxicity and patient understands this is off-label treatment Assessment & Plan (08/30/2021 7:27 AM DIRECTOR OF PRIMARY): Allow modafinil as no evidence of toxicity and evidence of benefit Assessment & Plan (06/11/2021 1:30 PM CDT): Continue Provigil at same dosage. Well controlled. Assessment & Plan (02/08/2021 10:32 AM CDT): Continue modafinil at same dosage. Well controlled. Assessment & Plan (11/09/2020 1:42 PM CDT): Allow modafinil but understands off-label Assessment & Plan (10/08/2020 10:45 AM DIRECTOR OF PRIMARY): Previously diagnosed with this by psychiatrist at [place]. good response previously to modafinil but I [...] PFTs Assessment & Plan (10/08/2020 10:46 AM DIRECTOR OF PRIMARY): Much improved Assessment & Plan (09/10/2020 10:03 AM DIRECTOR OF PRIMARY): Mainly with exertion and will refer to [...] disease Assessment & Plan (10/08/2020 10:45 AM DIRECTOR OF PRIMARY): Much improved Assessment & Plan (09/10/2020 9:58 AM DIRECTOR OF PRIMARY): Persisting cough and will refer to Pulmonary for Rash 09/10/2020 Assessment & Plan (10/08/2020 10:45 AM DIRECTOR OF PRIMARY): Much improved Assessment & Plan (09/10/2020 10:02 AM DIRECTOR OF PRIMARY): There is a dry Pash of eczematoid type rash on his back that is different than psoriasis he has other areas. We will give him some topical hydrocortisone cream but not to use longer than 2 weeks as risk of atrophy and tolerance. Nasal polyp 09/10/2020 Assessment & Plan (09/10/2020 10:07 AM DIRECTOR OF PRIMARY): ENT referral Anemia 09/09/2020 Assessment & Plan (09/09/2020 1:03 PM DIRECTOR OF PRIMARY): Needs iron studies and methylmalonic acid level. Needs to have colonoscopy done. Type 2 diabetes mellitus wit h hyperglycemia, without long-term current use of insulin 06/08/2020 Assessment & Plan (08/08/2024 11:33 AM DIRECTOR OF PRIMARY): A1c today. Is improved at 7.0. Continue [...] controlled. Assessment & Plan (09/11/2022 3:47 PM DIRECTOR OF PRIMARY): A1C TODAY.BMI Follow-up includes: nutrition counseling and [...] weekly Assessment & Plan (09/16/2021 9:43 AM DIRECTOR OF PRIMARY): A1c today. Diabetes needing better control. No hypoglycemic symptoms. Metformin, Jardiance, and glipizide daily. No significant improvement and will add Trulicity 0.75 mg weekly Assessment & Plan (08/30/2021 7:25 AM DIRECTOR OF PRIMARY): A1c today. Assessment & Plan (06/17/2021 10:38 [...] today. Assessment & Plan (10/08/2020 10:42 AM DIRECTOR OF PRIMARY): Check fasting blood sugar today. Result is 415 no he has had better sugars at home. No hypoglycemic symptoms will increase Jardiance to 25 mg daily as he has had no side effects. Assessment & Plan (09/10/2020 9:58 AM DIRECTOR OF PRIMARY): Needs better control. Medication options discussed. Risk [...] controlled. Assessment & Plan (10/15/2023 11:36 AM DIRECTOR OF PRIMARY): Continue trazodone at same dosage. Well controlled. Assessment & Plan (06/23/2023 2:04 PM CDT): Continue trazodone same dosage. Well controlled. Assessment & Plan (01/15/2023 1:59 PM CDT): Continue trazodone at same dosage. Well controlled. Assessment & Plan (09/11/2022 3:44 PM DIRECTOR OF PRIMARY): Continue trazodone Assessment & Plan (05/02/2022 11:04 AM CDT): Continue trazodone at same dosage. Well controlled. Assessment & Plan (12/13/2021 9:57 AM CDT): Continue trazodone at same dosage. Well controlled. Assessment & Plan (08/30/2021 7:26 AM DIRECTOR OF PRIMARY): Continue trazodone at same dosage. Well controlled. Assessment & Plan (06/11/2021 1:30 PM CDT): Continue trazodone at same dosage. Well controlled. Assessment & Plan (02/08/2021 10:36 AM CDT): Continue trazodone at same dosage. Well controlled. Assessment & Plan (10/08/2020 10:31 AM DIRECTOR OF PRIMARY): Improved. Continue trazodone 100 mg Assessment & Plan (09/10/2020 10:00 AM DIRECTOR OF PRIMARY): Increase trazodone to 100 mg needs better control Assessment & Plan (06/08/2020 10:30 AM CDT): Continue medication at same dosage. Well controlled. Major depression in remission 06/08/2020 Assessment & Plan (08/05/2024 2:13 PM DIRECTOR OF PRIMARY): Continue Lexapro at same dosage. Well controlled. Assessment & Plan (05/01/2024 12:21 PM CDT): Continue Lexapro at same dosage. Well controlled. Assessment & Plan (01/07/2024 4:04 PM CDT): Continue Lexapro at same dosage. Well controlled. Assessment & Plan (10/15/2023 11:35 AM DIRECTOR OF PRIMARY): Continue Lexapro at same dosage. Well controlled. Assessment & Plan (06/23/2023 2:07 PM CDT): Continue Lexapro at same dosage. Well controlled. Assessment & Plan (01/15/2023 2:00 PM CDT): Continue Lexapro at same dosage. Well controlled. Assessment & Plan (09/11/2022 3:44 PM DIRECTOR OF PRIMARY): Continue Lexapro at same dosage. Well controlled. Assessment & Plan (05/02/2022 11:00 AM CDT): Continue Lexapro at same dosage. Well controlled. Assessment & Plan (12/13/2021 9:57 AM CDT): Continue Lexapro at same dosage. Well controlled. Assessment & Plan (08/30/2021 7:26 AM DIRECTOR OF PRIMARY): Continue Lexapro at same dosage. Well controlled. Assessment & Plan (06/11/2021 1:30 PM CDT): Continue Lexapro at same dosage. Well controlled. Assessment & Plan (02/08/2021 10:33 AM CDT): Continue Lexapro at same dosage. Well controlled. Assessment & Plan (11/09/2020 1:42 PM CDT): Continue Lexapro at same dosage. Well controlled. Assessment & Plan (09/09/2020 1:01 PM DIRECTOR OF PRIMARY): Continue medication at same dosage. Well controlled. [...] Encounters Date Type Department Care Team Description 10/11/2024 8:32 PM DIRECTOR OF PRIMARY - 10/15/2024 1:43 PM DIRECTOR OF PRIMARY Hospital Encounter [place] [address] Med Surg [facility] [place] [address] Blu Terry Jr., MD [place], MD Desmond Clark, MD Nickolas Spivey, Ciaran Kohler MD Abdominal pain (Primary Dx); Nausea and vomiting, unspecified vomiting type; Dehydration Discharge Disposition: Discharge to home or self care 10/10/2024 Orders Only [facility] Health Information Management [address] [place] [address] Scanning, Provider 09/01/2024 Telephone [facility] Primary Care [address] [place] [phone] Nathan Martinez MD Forms Request 08/27/2024 Orders Only [facility] Health Information Management [address] [place] [address] Scanning, Provider from Last 3 Months Immunizations Immunization Administration [...] drink = 0.6 oz pur e alcohol) [facility] Utilities Answer Date Recorded In the past 12 months has th e electric, gas, oil, or water company threatened to shut off services in your home? No 10/13/2024 Social Connection and Isolat ion Panel [NHANES] Answer Date Recorded In a typical week, how many times do you talk on the phone with family, friends, or neighbors? More than three times a week 10/13/2024 How often do you get togethe r with friends or relatives? More than three times a week 10/13/2024 How often do you attend chur ch or orthodox services? Never 10/13/2024 Do you belong to any clubs o r organizations such as orthodox groups, unions, fraternal or athletic groups, or school groups? No 10/13/2024 How often do you attend meet ings of the clubs or organizations you belong to? Never 10/13/2024 Are you , , di vorced, , never , or living with a partner? Living with partner 10/13/2024 AUDIT-C Answer Date Recorded Q1: How often do you have a drink containing alcohol? Never 01/08/2024 Q2: How many drinks containi ng alcohol do you have on a typical day when you are drinking? Patient does not drink Q3: How often do you have si x or more drinks on one occasion? Never 01/08/2024 Overall Financial Resource Strain (CARDIA) Answe r Date Recorded How hard is it for you to pa y for the very basics like food, housing, medical care, and heating? Not very hard 10/13/2024 PHQ-2 Answer Date Recorded PHQ-2 Total Score (If total score is 3 or more points, staff should administer the PHQ-9) 1 08/08/2024 Hunger Vital Sign Answer Date Recorded Within the past 12 months, y ou worried that your food would run out before you got the money to buy more. Never true 10/13/19 25 Within the past 12 months, t he food you bought just didn't last and you didn't have money to get more. Never true 10/13/2024 PRAPARE - Transportation Answer Date Re corded In the past 12 months, has l ack of transportation kept you from medical appointments or from getting medications? No 09/25 In the past 12 months, has l ack of transportation kept you from meetings, work, or from getting things needed for daily living? No 10/13/2024 Housing Stability Vital Sign Answer Giuseppe e Recorded In the last 12 months, was t here a time when you were not able to pay the mortgage or rent on time? No 10/13/2024 In the past 12 months, how m any times have you moved where you were living? 0 10/13/2024 At any time in the past 12 m [facility], were you homeless or living in a long term (including now)? No 10/13/2024 Personal Safety Answer Date Recorded Have you ever been in or are you currently in a harmful physical or emotional relationship or is someone making you feel afraid or unsafe? Denies 10/12/2024 Sex and Gender Information Value Date Recorded Sex Assigned at Not on file Legal Sex Male 2:58 AM CDT Gender Identity Male 03/10/2022 6:57 PM CDT Sexual Orientation Not on file Obstetrics History Last Filed Vital Signs Vital Sign Reading Time Taken Comments Blood Pressure 112/83 10/15/2024 12:04 PM DIRECTOR OF PRIMARY Pulse 73 10/15/2024 12:04 PM DIRECTOR OF PRIMARY Temperature 36.3 C (97.3 F) 10/15/2024 12:04 PM DIRECTOR OF PRIMARY Respiratory Rate 16 10/15/2024 12:04 PM DIRECTOR OF PRIMARY Oxygen Saturation 95% 10/15/2024 12:04 PM DIRECTOR OF PRIMARY Inhaled Oxygen Concentration - - Weight 89.1 kg (196 lb 6.9 oz) 10/12/2024 4:45 P M DIRECTOR OF PRIMARY Height 180.3 cm (5' 10.98 ) 10/12/2024 4:[address] Body Mass Index 27.41 10/12/2024 4:45 PM DIRECTOR OF PRIMARY Plan of Treatment Health Maintenance Due Date Last Done Comments Hepatitis C Screening 1970 Prostate Cancer Screening-PSA 1969 Dilated Eye Exam 1969 Lipid Panel 1969 Regular Well Visit/Exam 18-64 1987 Zoster Vaccine (1 of 2) 2019 Pneumococcal vaccine <65 (2 of 2 - PCV) 02/12/2021 02/13/2020, 01/12/2015 DTaP/Tdap/Td Vaccine (1 - Tdap) 11/29/2022 11/28/2022, [...] Additional history exists Foot Exam 08/08/2025 08/08/2024, 02/2 10/2023, 06/23/2023, Additional history exists eGFR 10/12/2025 10/12/2024, 02/03/2025, 09/02/2021, Additional history exists Colon Cancer Screening-Colonoscopy 05/09/2029 05/09/2024, 11/12/2020 Hepatitis B Screening Completed 05/03/2008 Procedures Procedure Name Priority Date/Time Associated Diagnosis Comments EGFR Routine 10/12/2024 5:05 AM DIRECTOR OF PRIMARY DIFFERENTIAL AUTO Routine 10/12/2024 5:0 5 AM DIRECTOR OF PRIMARY CBC WITH AUTO DIFFERENTIAL Routine 10/12/2024 5:05 AM DIRECTOR OF PRIMARY COMPREHENSIVE METABOLIC PANEL Routine 10/12/2024 5:05 AM DIRECTOR OF PRIMARY URINALYSIS AND REFLEX TO MICROSCOPIC AND CULTURE STAT 10/11/2024 8:[address] ABDOMEN PELVIS W CONTRAST ED 10/11/2024 7:24 PM DIRECTOR OF PRIMARY EGFR STAT 10/11/2024 6:11 PM DIRECTOR OF PRIMARY DIFFERENTIAL AUTO STAT 10/11/2024 6:1 1 PM DIRECTOR OF PRIMARY LACTATE STAT 10/11/2024 6:11 PM DIRECTOR OF PRIMARY LIPASE STAT 10/11/2024 6:11 PM DIRECTOR OF PRIMARY COMPREHENSIVE METABOLIC PANEL STAT 10/11/2024 6:11 PM DIRECTOR OF PRIMARY CBC WITH AUTO DIFFERENTIAL STAT 10/11/2024 6:11 PM DIRECTOR OF PRIMARY SCAN - RADIOLOGY/IMAGING 10/10/2024 SCAN - RADIOLOGY/IMAGING 08/27/2024 POCT HEMOGLOBIN A1C Routine 08/08/2024 1 1:33 AM DIRECTOR OF PRIMARY Type 2 diabetes mellitus with hyperglycemia, without long-term current use of insulin (HCC) COLONOSCOPY Routine 05/09/2024 7:50 AM CDT ALBUMIN CREATININE RATIO, URINE Routine 05/05/2022 9:04 AM CDT Type 2 diabetes mellitus with hyperglycemia, without long-term current use of insulin (HCC) from Last 3 Months or Most Recently Relevant to Health Maintenance Results * eGFR (10/12/2024 5:05 AM DIRECTOR OF PRIMARY) eGFR 89 >=60 mL/min/1. 73 m2 Comment: Interpretive Data Reference Interval Normal >/= [...] was last reviewed 2021. Testing performed by: [address] [address] Blood 10/12/2024 5:05 AM DIRECTOR OF PRIMARY 10/12/2024 5:34 AM DIRECTOR OF PRIMARY Baldomero Sung MD LAB BLOOD ORDERABLES Final Result [facility] [address] [facility] Department [place] [address] * Differential, auto (10/12/2024 5:05 AM DIRECTOR OF PRIMARY) Neutrophil abs 2.8 1.5 - 6.5 K/cumm Comment:Testing performed by : [address] [address] Imm gran abs 0.0 0.0 - 0.1 K/cumm [facility] Comment:Testing performed by : [address] [address] Lymphocyte abs 2.4 0.8 - 3.3 K/cumm [facility] Comment:Testing performed by : [address] [address] Monocyte abs 0.5 0.2 - 0.8 K/cumm [facility] Comment:Testing performed by : [address] [address] Eosinophil abs 0.1 0.0 - 0.5 K/cumm [facility] Comment:Testing performed by : [address] [address] Basophil abs 0.0 0.0 - 0.1 K/cumm [facility] Comment:Testing performed by : [address] [address] Neutrophil pct 48.7 % [facility] Comment: Interpretive Data Percent cell count reference ranges are not reported, since discordance with absolute values may lead to misinterpretation of CBC data. Current Interpretive Data was last revised on 2017. Testing performed by: [address] [place]., [address] Imm gran pct 0.2 % [facility] Comment: Interpretive Data Percent cell count reference ranges are not reported, since discordance with absolute values may lead to misinterpretation of CBC data. Current Interpretive Data was last revised on 2017. Testing performed by: [address] [address] Lymphocyte pct 41.0 % [facility] Comment: Interpretive Data Percent cell count reference ranges are not reported, since discordance with absolute values may lead to misinterpretation of CBC data. Current Interpretive Data was last revised on 2017. Testing performed by: [address] [address] Monocyte pct 8.5 % [facility] Comment: Interpretive Data Percent cell count reference ranges are not reported, since discordance with absolute values may lead to misinterpretation of CBC data. Current Interpretive Data was last revised on 2017. Testing performed by: [address] [address] Eosinophil pct 1.4 % [facility] Comment: Interpretive Data Percent cell count reference ranges are not reported, since discordance with absolute values may lead to misinterpretation of CBC data. Current Interpretive Data was last revised on 2017. Testing performed by: [address] [address] Basophil pct 0.2 % [facility] Comment: Interpretive Data Percent cell count reference ranges are not reported, since discordance with absolute values may lead to misinterpretation of CBC data. Current Interpretive Data was last revised on 2017. Testing performed by: [address] [address] Blood 10/12/2024 5:05 AM DIRECTOR OF PRIMARY 10/12/2024 5:34 AM DIRECTOR OF PRIMARY us Baldomero Sung MD LAB BLOOD ORDERABLES Final Result [facility] [address] [facility] Department [place] [address] * (ABNORMAL) CBC with auto differential (10/12/2024 5:05 AM DIRECTOR OF PRIMARY) [facility] Signature WBC 5.8 3.8 - 9.9 K/cumm Comment:Testing performed by : [address], [address] Hgb 13.6 13.0 - 17.5 g/dL [facility] Comment:Testing performed by : [address], [address] Hct 41.9 38.9 - 50.3 % [facility] Comment:Testing performed by : [address], [address] Plt 260 150 - 400 K/cumm [facility] Comment:Testing performed by : [address], [address] MPV 9.2 9.1 - 12.3 fL [facility] Comment:Testing performed by : [address], [address] RBC 5.23 4.30 - 5.80 M/cumm [facility] Comment:Testing performed by : [address], [address] MCV 80.1(L) 81.3 - 96.4 fL [facility] Comment:Testing performed by : [address], [address] MCH 26.0(L) 27.1 - 33.3 pg [facility] Comment:Testing performed by : [address], [address] MCHC 32.5 32.3 - 35.7 g/dL [facility] Comment:Testing performed by : [address], [address] RDW CV 14.0 11.1 - 14.9 % [facility] Comment:Testing performed by : [address], [address] RDW SD 41.0 35.7 - 48.1 fL [facility] Comment:Testing performed by : [address], [address] NRBC abs 0.00 0.00 - 0.01 K/cumm [facility] Comment:Testing performed by : [address] [address] Blood 10/12/2024 5:05 AM DIRECTOR OF PRIMARY 10/12/2024 5:34 AM DIRECTOR OF PRIMARY Baldomero Sung MD LAB BLOOD ORDERABLES Final Result [facility] [address] [facility] Department [place] [address] * Comprehensive metabolic panel (10/12/2024 5:05 AM DIRECTOR OF PRIMARY) Sodium 138 135 - 145 mmol/L Comment:Testing performed by : [address] [address] Potassium, pl 3.7 3.3 - 4.9 mmol/L [facility] Comment:Testing performed by : [address] [address] Chloride 100 97 - 110 mmol/L [facility] Comment:Testing performed by : [address] [address] CO2 30 22 - 32 mmol/L [facility] Comment:Testing performed by : [address] [address] Anion gap 8 2 - 15 mmol/L [facility] Comment:Testing performed by : [address] [address] BUN 7 6 - 25 mg/dL [facility] Comment:Testing performed by : [address] [address] Creatinine 1.00 0.80 - 1.30 mg/dL [facility] Comment:Testing performed by : [address] [address] Glucose 89 70 - 199 mg/dL [facility] Comment: Interpretive Data Fasting glucose >/= 126 mg/dl is diagnostic for diabetes. Fasting is defined as no caloric intake [...] classification and Diagnosis of Diabetes Diabetes Care 202; 46: S19-S40. Current interpretive data was last revised 2022. Testing performed by: [address] [address] Calcium 9.3 8.5 - 10.3 mg/dL [facility] Comment:Testing performed by : [address] [address] Bilirubin, total 0.4 0.1 - 1.2 mg/dL [facility] Comment:Testing performed by : [address] [address] Protein, pl 6.7 6.5 - 8.5 g/dL [facility] Comment:Testing performed by : [address] [address] Albumin 3.9 3.5 - 5.0 g/dL [facility] Comment:Testing performed by : [address] [address] Alk phos 54 40 - 130 Units/L [facility] Comment:Testing performed by : [address] [address] ALT 24 7 - 55 Units/L [facility] Comment:Testing performed by : [address] [address] AST 20 10 - 50 Units/L [facility] Comment:Testing performed by : [address] [address] Blood 10/12/2024 5:05 AM DIRECTOR OF PRIMARY 10/12/2024 5:34 AM DIRECTOR OF PRIMARY us Baldomero Sung MD LAB BLOOD ORDERABLES Final Result [facility] [address] [facility] Department of Laboratories [place], [place] [id number] * (ABNORMAL) Urinalysis reflex to microscopic and culture Urine (10/11/2024 8:41 PM DIRECTOR OF PRIMARY) Color, ur Yellow Yellow Comment:Testing performed by : [address] [address] Clarity, ur Clear Clear [facility] Comment:Testing performed by : [address] [address] Specific gravity, ur >1.050(A) 1.003 - 1.030 [facility] Comment:Testing performed by : [address], [place]., [address] pH, urine 5.5 [facility] Comment: Interpretive Data U rine pH is affected by diet, medications, systemic acid-base disturbances, and renal tubular function. pH may affect urinary stone formation. For example, urine pH below 6.0 may help reduce the tendency for calcium phosphate stones and pH greater than 6.0 may reduce the tendency for uric acid stone formation. Source: [place] Current Interpretive Data was last revised on 2017 Testing performed by: [address] [address] Protein, ur ql Negative Negative [facility] Comment:Testing performed by : [address] [address] Glucose, ur ql Negative Negative [facility] Comment:Testing performed by : [address] [address] Ketones, ur Negative Negative [facility] Comment:Testing performed by : [address] [address] Bilirubin, ur Negative Negative [facility] Comment:Testing performed by : [address] [address] Blood, ur Negative Negative [facility] Comment:Testing performed by : [address] [address] Urobilinogen, ur <2.0 <2.0 mg/dL [facility] Comment:Testing performed by : [address] [address] Nitrite, ur Negative Negative [facility] Comment:Testing performed by : [address] [address] Leukocyte esterase, ur Negative Negative [facility] Comment:Testing performed by : [address] [address] UA reflex comment Reflex conditions for microscopic UA and culture not met. [facility] Comment:Testing performed by : [facility], [address] [place] [address], [place]., [address] Urine 10/11/2024 8:41 PM DIRECTOR OF PRIMARY 10/11/2024 8:50 PM DIRECTOR OF PRIMARY us Blu Terry Jr., MD LAB MICROBIOLOGY - GENE RAL ORDERABLES Final Result [facility] [address] [facility] [place] [address] * CT Abdomen Pelvis W Contrast (10/11/2024 7:24 PM DIRECTOR OF PRIMARY) Anatomical Region Laterality Modality Body N/A Computed Tomogra phy 10/11/2024 8:00 PM DIRECTOR OF PRIMARY Narrative 10/11/2024 8:03 PM DIRECTOR OF PRIMARY EXAM DESCRIPTION: CT ABDOMEN PELVIS W CONTRAST REASON FOR STUDY: abd pain arrived with c/o of abd pain that started Thursday. States nausea. States hx of intestinal adhesions. Last bm was thursday TECHNIQUE: CT scan of the abdomen and pelvis performed with intravenous and without oral contrast using helical scanning technique with dynamic intravenous contrast injection. Reconstructed coronal and sagittal MPR images reviewed. All images stored on PACS. Automated exposure control was used as a dose optimization technique for this examination. CONTRAST TYPE/DOSE: 100mL of IOVERSOL 350 MG IODINE/ML INTRAVENOUS SYRINGE injected via intravenous COMPARISON: 09/02/2021 FINDINGS: LOWER CHEST: Lung bases are clear. Heart size normal. No effusion. LIVER/BILIARY: Moderate hepatic steatosis. Biliary tree normal in caliber. GALLBLADDER: Absent. SPLEEN: Normal. PANCREAS: Normal. ADRENAL GLANDS: Normal. KIDNEYS/URINARY TRACT: Unremarkable. GI: Stomach and small bowel appear normal. Sigmoid anastomosis unremarkable. Appendectomy. OTHER ABDOMINAL/PELVIS: Major vascular structures are grossly patent and normal in caliber. No enlarged lymph node or free fluid. MSK: Normal. BODY WALL: Normal. IMPRESSION: No bowel inflammation/obstruction or other acute abnormality identified. Normal stool volume. THIS IS AN ELECTRONICALLY VERIFIED FINAL REPORT 10/11/2024 8:03 PM - Electronically signed by Kurt Love M.D. AR: TORSTEN Report ID: [id number] Reading Location: [id number] Procedure Note Kurt Love MD - 10/11/2024 EXAM DESCRIPTION: CT ABDOMEN PELVIS W CONTRAST REASON FOR STUDY: abd pain arrived with c/o of abd pain that started Thursday. States nausea. States hxof intestinal adhesions. Last bm was thursday TECHNIQUE: CT scan of the abdomen and pelvis performed with intravenousand without oral contrast using helical scanning technique with dynamic intravenous contrast injection. Reconstructed coronal and sagittal MPRimages reviewed. All images stored on PACS. Automated exposure control was usedas a dose optimization technique for this examination. CONTRAST TYPE/DOSE: 100mL of IOVERSOL 350 MG IODINE/ML INTRAVENOUSSYRINGE injected via intravenous COMPARISON: 09/02/2021 FINDINGS: LOWER CHEST: Lung bases are clear. Heart size normal. No effusion. LIVER/BILIARY: Moderate hepatic steatosis. Biliary tree normal incaliber. GALLBLADDER: Absent. SPLEEN: Normal. PANCREAS: Normal. ADRENAL GLANDS: Normal. KIDNEYS/URINARY TRACT: Unremarkable. GI: Stomach and small bowel appear normal. Sigmoid anastomosisunremarkable. Appendectomy. OTHER ABDOMINAL/PELVIS: Major vascular structures are grossly patent and normal in caliber. No enlarged lymph node or free fluid. MSK: Normal. BODY WALL: Normal. IMPRESSION: No bowel inflammation/obstruction or other acute abnormality identified. Normal stool volume. THIS IS AN ELECTRONICALLY VERIFIED FINAL REPORT 10/11/2024 8:03 PM - Electronically signed by Kurt Love M.D. AR: TORSTEN Report ID: [id number] Reading Location: [id number] Share[facility] CT PROCEDURES Final Resu lt * Lactate (10/11/2024 6:11 PM DIRECTOR OF PRIMARY) Lactate 1.5 0.7 - 2.0 mmol/L Comment:Testing performed by : [facility], [address] [place] [address], [place]., [address] Blood 10/11/2024 6:11 PM DIRECTOR OF PRIMARY 10/11/2024 6:16 PM DIRECTOR OF PRIMARY us Blu Terry Jr., MD LAB BLOOD ORDERABLES Fi nal Result [facility] [address] [address] * eGFR (10/11/2024 6:11 PM DIRECTOR OF PRIMARY) eGFR 74 >=60 mL/min/1. 73 m2 Comment: Interpretive Data Reference Interval Normal >/= [...] was last reviewed 2021. Testing performed by: [facility], [address] [place] [address]., [address] Blood 10/11/2024 6:11 PM DIRECTOR OF PRIMARY 10/11/2024 6:16 PM DIRECTOR OF PRIMARY us Blu Terry Jr., MD LAB BLOOD ORDERABLES Fi nal Result [facility] [place] [address] * Differential, auto (10/11/2024 6:11 PM DIRECTOR OF PRIMARY) Neutrophil abs 2.2 1.5 - 6.5 K/cumm Comment:Testing performed by : [facility], [address] [place] [address], [place]., [address] Imm gran abs 0.0 0.0 - 0.1 K/cumm [facility] Comment:Testing performed by : [facility], [address] [place] [address], [place]., [address] Lymphocyte abs 1.9 0.8 - 3.3 K/cumm [facility] Comment:Testing performed by : [address], [place]., [address] Monocyte abs 0.4 0.2 - 0.8 K/cumm [facility] Comment:Testing performed by : [address], [place]., [address] Eosinophil abs 0.0 0.0 - 0.5 K/cumm [facility] Comment:Testing performed by : [address], [place]., [address] Basophil abs 0.0 0.0 - 0.1 K/cumm [facility] Comment:Testing performed by : [address] [address] Neutrophil pct 47.9 % [facility] Comment: Interpretive Data Percent cell count reference ranges are not reported, since discordance with absolute values may lead to misinterpretation of CBC data. Current Interpretive Data was last revised on 2017. Testing performed by: [address] [address] Imm gran pct 0.2 % [facility] Comment: Interpretive Data Percent cell count reference ranges are not reported, since discordance with absolute values may lead to misinterpretation of CBC data. Current Interpretive Data was last revised on 2017. Testing performed by: [address] [address] Lymphocyte pct 41.9 % [facility] Comment: Interpretive Data Percent cell count reference ranges are not reported, since discordance with absolute values may lead to misinterpretation of CBC data. Current Interpretive Data was last revised on 2017. Testing performed by: [address] [address] Monocyte pct 8.9 % [facility] Comment: Interpretive Data Percent cell count reference ranges are not reported, since discordance with absolute values may lead to misinterpretation of CBC data. Current Interpretive Data was last revised on 2017. Testing performed by: [address] [address] Eosinophil pct 0.9 % [facility] Comment: Interpretive Data Percent cell count reference ranges are not reported, since discordance with absolute values may lead to misinterpretation of CBC data. Current Interpretive Data was last revised on 2017. Testing performed by: [address] [address] Basophil pct 0.2 % [facility] Comment: Interpretive Data Percent cell count reference ranges are not reported, since discordance with absolute values may lead to misinterpretation of CBC data. Current Interpretive Data was last revised on 2017. Testing performed by: [address] [address] Blood 10/11/2024 6:11 PM DIRECTOR OF PRIMARY 10/11/2024 6:16 PM DIRECTOR OF PRIMARY us Blu Terry Jr., MD LAB BLOOD ORDERABLES Fi nal Result [facility] [address] [facility] Department [place] [address] * (ABNORMAL) CBC with auto differential (10/11/2024 6:11 PM DIRECTOR OF PRIMARY) Pathologist [facility] WBC 4.5 3.8 - 9.9 K/cumm Comment:Testing performed by : [address] [address] Hgb 14.6 13.0 - 17.5 g/dL [facility] Comment:Testing performed by : [address] [address] Hct 43.4 38.9 - 50.3 % [facility] Comment:Testing performed by : [address] [address] Plt 283 150 - 400 K/cumm [facility] Comment:Testing performed by : [address] [address] MPV 9.3 9.1 - 12.3 fL [facility] RAYMUNDO Comment:Testing performed by : [address], [address] RBC 5.45 4.30 - 5.80 M/cumm [facility] RAYMUNDO Comment:Testing performed by : [address] [address] MCV 79.6(L) 81.3 - 96.4 fL [facility] RAYMUNDO Comment:Testing performed by : [address], [address] MCH 26.8(L) 27.1 - 33.3 pg [facility] RAYMUNDO Comment:Testing performed by : [address], [address] MCHC 33.6 32.3 - 35.7 g/dL [facility] RAYMUNDO Comment:Testing performed by : [address], [address] RDW CV 14.1 11.1 - 14.9 % [facility] RAYMUNDO Comment:Testing performed by : [address], [address] RDW SD 40.5 35.7 - 48.1 fL [facility] Comment:Testing performed by : [address], [address] NRBC abs 0.00 0.00 - 0.01 K/cumm [facility] RAYMUNDO Comment:Testing performed by : [address], [address] Blood Venous blood specimen / Unknown 10/11/2024 6:11 PM DIRECTOR OF PRIMARY 10/11/2024 6:16 PM DIRECTOR OF PRIMARY us Blu Terry Jr., MD LAB BLOOD ORDERABLES Fi nal Result [facility] [address] [facility] Department [place] [address] * (ABNORMAL) Lipase (10/11/2024 6:11 PM DIRECTOR OF PRIMARY) Lipase 101(H) 10 - 99 Units/L Comment:Testing performed by : [address], [address] Blood Venous blood specimen / Unknown 10/11/2024 6:11 PM DIRECTOR OF PRIMARY 10/11/2024 6:16 PM DIRECTOR OF PRIMARY us Blu Terry Jr., MD LAB BLOOD ORDERABLES Fi nal Result [facility] [address] [facility] Department [place] [address] * Comprehensive metabolic panel (10/11/2024 6:11 PM DIRECTOR OF PRIMARY) Sodium 138 135 - 145 mmol/L Comment:Testing performed by : [address] [address] Potassium, pl 4.1 3.3 - 4.9 mmol/L [facility] Comment:Testing performed by : [address] [address] Chloride 101 97 - 110 mmol/L [facility] Comment:Testing performed by : [address] [address] CO2 28 22 - 32 mmol/L [facility] Comment:Testing performed by : [address] [address] Anion gap 9 2 - 15 mmol/L [facility] Comment:Testing performed by : [address] [address] BUN 10 6 - 25 mg/dL [facility] Comment:Testing performed by : [address] [address] Creatinine 1.16 0.80 - 1.30 mg/dL [facility] Comment:Testing performed by : [address] [address] Glucose 146 70 - 199 mg/dL [facility] Comment: Interpretive Data Fasting glucose >/= 126 mg/dl is diagnostic for diabetes. Fasting is defined as no caloric intake [...] classification and Diagnosis of Diabetes Diabetes Care 2021; 46: S19-S40. Current interpretive data was last revised 2022. Testing performed by: [address] [address] Calcium 9.9 8.5 - 10.3 mg/dL [facility] Comment:Testing performed by : [address] [address] Bilirubin, total 0.4 0.1 - 1.2 mg/dL [facility] Comment:Testing performed by : [address] [address] Protein, pl 7.3 6.5 - 8.5 g/dL [facility] Comment:Testing performed by : [address] [address] Albumin 4.3 3.5 - 5.0 g/dL [facility] Comment:Testing performed by : [address] [address] Alk phos 60 40 - 130 Units/L [facility] Comment:Testing performed by : [address] [address] ALT 28 7 - 55 Units/L [facility] Comment:Testing performed by : [address] [address] AST 22 10 - 50 Units/L [facility] Comment:Testing performed by : [address] [address] Blood 10/11/2024 6:11 PM DIRECTOR OF PRIMARY 10/11/2024 6:16 PM DIRECTOR OF PRIMARY Blu Terry Jr., MD LAB BLOOD ORDERABLES Fi nal Result [facility] RAYMUNDO [address] [facility] Department [place] [address] * SCAN - RADIOLOGY/IMAGING (10/10/2024) Anatomical Region Laterality Modality Other Provider Scanning Final Result * SCAN - RADIOLOGY/IMAGING (08/27/2024) Anatomical Region Laterality Modality Other us Provider Scanning Final Result * (ABNORMAL) POCT hemoglobin A1c (08/08/2024 11:33 AM DIRECTOR OF PRIMARY) Hemoglobin A1C, POC 7.0 4.0 - 5.6 % Blood 08/08/2024 11:3 3 AM DIRECTOR OF PRIMARY Nathan Martinez MD POINT OF CARE TEST [...] LAB URINE ORDERABLES Final Result [facility] [address] [place] [phone] from Last 3 Months or Most Recently Relevant to Health Maintenance Insurance [address] CLAIMS Member Subscriber Plan / Payer (Ef fective 2020-Present) Name:Erich Allen Relation to Subscriber:Self Name:Erich Allen Payer ID:[id number] (NAIC) Group ID:Not on file Type: Address: [place] [id number] [address] [place] [id number] [facility] CLAIMS [address] [place] [address] CLAIMS Advance Directives For more information, please contact: [phone] * Full Code (Latest Code Status on File) Date Activated Date Inactivated Comments 10/12/2024 2:05 AM 10/15/2024 5:49 PM Care Teams Training Development Specialist Relationship Specialty Start Date End Date Nathan Martinez MD PCP - General Family Practice 09/10/20 Monique Garcia MD Referring Physician Gastroenterology 06/11/20 Monique Garcia MD Referring Physician Gastroenterology 06/11/20
--- OUTSIDE RECORDS SUMMARY | 2024-11-10 16:12 | XMS_ITS ---
Author Name Interface, [id number] lity Address [address] [place] [address] [facility], LAN Address [address] [place] [address] Care Team Providers Care Rod Drawer Name Role Phone Mata Ledezma Unavailable Unavailable [...]
--- OUTSIDE RECORDS SUMMARY | 2024-11-10 16:12 | XMS_ITS | CCD ---
Author Name Interface, [id number] [facility] Address [address] [place] [address] [facility] LAN lui Address [address] [place] [address] Care Team Providers Care Dancing Teacher Name Role Phone Mata Ledezma Unavailable Unavailable Reason for Visit Encounters Medications Problems Social History
--- OUTSIDE RECORDS SUMMARY | 2024-11-10 16:12 | XMS_ITS ---
Author Name Interface, [id number] lity Address [address] [place] [address] [facility], LAN Address [address] [place] [address] Care Team Providers Care Warehouse Associate Driver Name Role Phone Mata Ledezma Unavailable Unavailable [...]
--- OUTSIDE RECORDS SUMMARY | 2024-11-10 16:12 | XMS_ITS | Referral Summary ---
Author Organization [facility] Address [address] [place] [address] Care Team Providers Care Laborer [employer] Name Role Phone Monique Garcia MD Unavailable [phone] Monique Garcia MD Unavailable [phone] Nathan Martinez MD Primary Care Provider [phone] Encounters Date Type Department Care Team Description 10/11/2024 8:32 PM INDUSTRIAL MANAGEMENT TEACHER - 10/15/2024 1:43 PM INDUSTRIAL MANAGEMENT TEACHER Hospital Encounter [place] [id number] Med [address] [place] [id number] Blu Terry Jr., MD [place], MD Desmond Clark, MD Nickolas Spivey, Ciaran Kohler MD Abdominal pain (Primary Dx); Nausea and vomiting, unspecified vomiting type; Dehydration Discharge Disposition: Discharge to home or self care 10/10/2024 Orders Only [facility] Health Information Management [address] [place] [id number] Scanning, Provider 09/01/2024 Telephone [facility] Primary [facility] [address] [place] [phone] Nathan Martinez MD Forms Request 08/27/2024 Orders Only [facility] Health Information Management [address] [place] [address] Scanning, Provider from Last 3 Months Allergies Active Allergy [...] mg Assessment & Plan (10/15/2023 11:29 AM INDUSTRIAL MANAGEMENT TEACHER): A1c today . Continue glipizide/Trulicity at [...] 09/12/2022 Assessment & Plan (09/12/2022 9:35 AM INDUSTRIAL MANAGEMENT TEACHER): Some tinnitus for 2 months. Possible hearing loss. Ear canals normal today drums normal ENT refer Lipidemia 09/11/2022 Assessment & Plan (08/05/2024 2:15 PM INDUSTRIAL MANAGEMENT TEACHER): Continue atorvastatin same dosage. Needs repeat lipid Assessment & Plan (05/01/2024 12:22 PM CDT): Needs repeat lipids. Continue atorvastatin at same dose. Assessment & Plan (01/07/2024 4:08 PM CDT): Continue atorvastatin same dosage but needs repeat lipids. Assessment & Plan (10/15/2023 11:35 AM INDUSTRIAL MANAGEMENT TEACHER): Continue atorvastatin at same dosage. Well controlled. Assessment & Plan (06/23/2023 2:03 PM CDT): Continue Lipitor same dosage but needs repeat lipids. Assessment & Plan (01/15/2023 1:58 PM CDT): Continue atorvastatin same dosage but needs repeat lipids Assessment & Plan (09/11/2022 3:45 PM INDUSTRIAL MANAGEMENT TEACHER): Continue atorvastatin same dosage Acute left [...] counseling. Assessment & Plan (10/15/2023 12:07 PM INDUSTRIAL MANAGEMENT TEACHER): Diabetic foot exam: Left monofilament exam: [...] surgeon Assessment & Plan (09/02/2021 8:59 AM INDUSTRIAL MANAGEMENT TEACHER): Pain most recently is in the [...] 09/02/2021 Assessment & Plan (09/02/2021 9:00 AM INDUSTRIAL MANAGEMENT TEACHER): Refer to Dermatology Chronic abdominal pain 08/30/2021 Assessment & Plan (05/02/2024 3:02 PM CDT): History of multiple adhesions and several times he has had to had bowel obstruction treated. Constant pain. Worse about 30 minutes after eating. Referral to GI. Left lower quadrant Assessment & Plan (09/16/2021 9:44 AM INDUSTRIAL MANAGEMENT TEACHER): Try peppermint oil pill daily. Discontinue Levbid. Refer to GI. Needs colonoscopy. Assessment & Plan (09/02/2021 8:59 AM INDUSTRIAL MANAGEMENT TEACHER): Previous pain is similar to this [...] 10/08/2020 Assessment & Plan (08/05/2024 2:14 PM INDUSTRIAL MANAGEMENT TEACHER): Continue Provigil at same dosage. Well controlled. Return 3 months Assessment & Plan (05/01/2024 12:20 PM CDT): Continue Provigil at same dosage. Well controlled. Return 3 months Assessment & Plan (01/07/2024 4:03 PM CDT): Continue Provigil at same dosage. Well controlled. Assessment & Plan (10/16/2023 1:08 PM INDUSTRIAL MANAGEMENT TEACHER): Takes Provigil off-label. Adequate control with [...] usage. Assessment & Plan (09/13/2021 9:27 AM INDUSTRIAL MANAGEMENT TEACHER): Continue modafinil at same dosage. Well controlled. No signs of toxicity and patient understands this is off-label treatment Assessment & Plan (08/30/2021 7:27 AM INDUSTRIAL MANAGEMENT TEACHER): Allow modafinil as no evidence of toxicity and evidence of benefit Assessment & Plan (06/11/2021 1:30 PM CDT): Continue Provigil at same dosage. Well controlled. Assessment & Plan (02/08/2021 10:32 AM CDT): Continue modafinil at same dosage. Well controlled. Assessment & Plan (11/09/2020 1:42 PM CDT): Allow modafinil but understands off-label Assessment & Plan (10/08/2020 10:45 AM INDUSTRIAL MANAGEMENT TEACHER): Previously diagnosed with this by psychiatrist at [facility]. good response previously to modafinil but I [...] PFTs Assessment & Plan (10/08/2020 10:46 AM INDUSTRIAL MANAGEMENT TEACHER): Much improved Assessment & Plan (09/10/2020 10:03 AM INDUSTRIAL MANAGEMENT TEACHER): Mainly with exertion and will refer [...] disease Assessment & Plan (10/08/2020 10:45 AM INDUSTRIAL MANAGEMENT TEACHER): Much improved Assessment & Plan (09/10/2020 9:58 AM INDUSTRIAL MANAGEMENT TEACHER): Persisting cough and will refer to Pulmonary for Rash 09/10/2020 Assessment & Plan (10/08/2020 10:45 AM INDUSTRIAL MANAGEMENT TEACHER): Much improved Assessment & Plan (09/10/2020 10:02 AM INDUSTRIAL MANAGEMENT TEACHER): There is a dry Pash of eczematoid type rash on his back that is different than psoriasis he has other areas. We will give him some topical hydrocortisone cream but not to use longer than 2 weeks as risk of atrophy and tolerance. Nasal polyp 09/10/2020 Assessment & Plan (09/10/2020 10:07 AM INDUSTRIAL MANAGEMENT TEACHER): ENT referral Anemia 09/09/2020 Assessment & Plan (09/09/2020 1:03 PM INDUSTRIAL MANAGEMENT TEACHER): Needs iron studies and methylmalonic acid level. Needs to have colonoscopy done. Type 2 diabetes mellitus wit h hyperglycemia, without long-term current use of insulin 06/08/2020 Assessment & Plan (08/08/2024 11:33 AM INDUSTRIAL MANAGEMENT TEACHER): A1c today. Is improved at 7.0. [...] controlled. Assessment & Plan (09/11/2022 3:47 PM INDUSTRIAL MANAGEMENT TEACHER): A1C TODAY.BMI Follow-up includes: nutrition counseling [...] weekly Assessment & Plan (09/16/2021 9:43 AM INDUSTRIAL MANAGEMENT TEACHER): A1c today. Diabetes needing better control. No hypoglycemic symptoms. Metformin, Jardiance, and glipizide daily. No significant improvement and will add Trulicity 0.75 mg weekly Assessment & Plan (08/30/2021 7:25 AM INDUSTRIAL MANAGEMENT TEACHER): A1c today. Assessment & Plan (06/17/2021 [...] today. Assessment & Plan (10/08/2020 10:42 AM INDUSTRIAL MANAGEMENT TEACHER): Check fasting blood sugar today. Result is 415 no he has had better sugars at home. No hypoglycemic symptoms will increase Jardiance to 25 mg daily as he has had no side effects. Assessment & Plan (09/10/2020 9:58 AM INDUSTRIAL MANAGEMENT TEACHER): Needs better control. Medication options discussed. [...] controlled. Assessment & Plan (10/15/2023 11:36 AM INDUSTRIAL MANAGEMENT TEACHER): Continue trazodone at same dosage. Well controlled. Assessment & Plan (06/23/2023 2:04 PM CDT): Continue trazodone same dosage. Well controlled. Assessment & Plan (01/15/2023 1:59 PM CDT): Continue trazodone at same dosage. Well controlled. Assessment & Plan (09/11/2022 3:44 PM INDUSTRIAL MANAGEMENT TEACHER): Continue trazodone Assessment & Plan (05/02/2022 11:04 AM CDT): Continue trazodone at same dosage. Well controlled. Assessment & Plan (12/13/2021 9:57 AM CDT): Continue trazodone at same dosage. Well controlled. Assessment & Plan (08/30/2021 7:26 AM INDUSTRIAL MANAGEMENT TEACHER): Continue trazodone at same dosage. Well controlled. Assessment & Plan (06/11/2021 1:30 PM CDT): Continue trazodone at same dosage. Well controlled. Assessment & Plan (02/08/2021 10:36 AM CDT): Continue trazodone at same dosage. Well controlled. Assessment & Plan (10/08/2020 10:31 AM INDUSTRIAL MANAGEMENT TEACHER): Improved. Continue trazodone 100 mg Assessment & Plan (09/10/2020 10:00 AM INDUSTRIAL MANAGEMENT TEACHER): Increase trazodone to 100 mg needs better control Assessment & Plan (06/08/2020 10:30 AM CDT): Continue medication at same dosage. Well controlled. Major depression in remission 06/08/2020 Assessment & Plan (08/05/2024 2:13 PM INDUSTRIAL MANAGEMENT TEACHER): Continue Lexapro at same dosage. Well controlled. Assessment & Plan (05/01/2024 12:21 PM CDT): Continue Lexapro at same dosage. Well controlled. Assessment & Plan (01/07/2024 4:04 PM CDT): Continue Lexapro at same dosage. Well controlled. Assessment & Plan (10/15/2023 11:35 AM INDUSTRIAL MANAGEMENT TEACHER): Continue Lexapro at same dosage. Well controlled. Assessment & Plan (06/23/2023 2:07 PM CDT): Continue Lexapro at same dosage. Well controlled. Assessment & Plan (01/15/2023 2:00 PM CDT): Continue Lexapro at same dosage. Well controlled. Assessment & Plan (09/11/2022 3:44 PM INDUSTRIAL MANAGEMENT TEACHER): Continue Lexapro at same dosage. Well controlled. Assessment & Plan (05/02/2022 11:00 AM CDT): Continue Lexapro at same dosage. Well controlled. Assessment & Plan (12/13/2021 9:57 AM CDT): Continue Lexapro at same dosage. Well controlled. Assessment & Plan (08/30/2021 7:26 AM INDUSTRIAL MANAGEMENT TEACHER): Continue Lexapro at same dosage. Well controlled. Assessment & Plan (06/11/2021 1:30 PM CDT): Continue Lexapro at same dosage. Well controlled. Assessment & Plan (02/08/2021 10:33 AM CDT): Continue Lexapro at same dosage. Well controlled. Assessment & Plan (11/09/2020 1:42 PM CDT): Continue Lexapro at same dosage. Well controlled. Assessment & Plan (09/09/2020 1:01 PM INDUSTRIAL MANAGEMENT TEACHER): Continue medication at same dosage. Well [...] drink = 0.6 oz pur e alcohol) [facility] Utilities Answer Date Recorded In the past 12 months has e [employer], gas, oil, or water [employer] threatened to shut off services in your [...] often do you attend chur ch or baptist services? Never 10/13/2024 Do you belong to any clubs o r organizations such as voodoo groups, unions, fraternal or athletic groups, or [...] money to buy more. Never true 10/13/19 Within the past 12 months, t he [...] any time in the past 12 m [facility], were you homeless or living in a halfway (including now)? No 10/13/2024 Personal Safety Answer [...] Comments Blood Pressure 112/83 10/15/2024 12:04 PM INDUSTRIAL MANAGEMENT TEACHER Pulse 73 10/15/2024 12:04 PM INDUSTRIAL MANAGEMENT TEACHER Temperature 36.3 C (97.3 F) 10/15/2024 12:04 PM INDUSTRIAL MANAGEMENT TEACHER Respiratory Rate 16 10/15/2024 12:04 PM INDUSTRIAL MANAGEMENT TEACHER Oxygen Saturation 95% 10/15/2024 12:04 PM INDUSTRIAL MANAGEMENT TEACHER Inhaled Oxygen Concentration - - Weight 89.1 kg (196 lb 6.9 oz) 10/12/2024 4:45 P M INDUSTRIAL MANAGEMENT TEACHER Height 180.3 cm (5' 10.98 ) 10/12/2024 4:[address] Body Mass Index 27.41 10/12/2024 4:45 PM INDUSTRIAL MANAGEMENT TEACHER Plan of Treatment Not on file Procedures Procedure Name Priority Date/Time Associated Diagnosis Comments EGFR Routine 10/12/2024 5:05 AM INDUSTRIAL MANAGEMENT TEACHER DIFFERENTIAL AUTO Routine 10/12/2024 5:0 5 AM INDUSTRIAL MANAGEMENT TEACHER CBC WITH AUTO DIFFERENTIAL Routine 10/12/2024 5:05 AM INDUSTRIAL MANAGEMENT TEACHER COMPREHENSIVE METABOLIC PANEL Routine 10/12/2024 5:05 AM INDUSTRIAL MANAGEMENT TEACHER URINALYSIS AND REFLEX TO MICROSCOPIC AND CULTURE STAT 10/11/2024 8:41 [address] MANAGEMENT TEACHER [address] ABDOMEN PELVIS W CONTRAST ED 10/11/2024 7:24 PM INDUSTRIAL MANAGEMENT TEACHER EGFR STAT 10/11/2024 6:11 PM INDUSTRIAL MANAGEMENT TEACHER DIFFERENTIAL AUTO STAT 10/11/2024 6:1 1 PM INDUSTRIAL MANAGEMENT TEACHER LACTATE STAT 10/11/2024 6:11 PM INDUSTRIAL MANAGEMENT TEACHER LIPASE STAT 10/11/2024 6:11 PM INDUSTRIAL MANAGEMENT TEACHER COMPREHENSIVE METABOLIC PANEL STAT 10/11/2024 6:11 PM INDUSTRIAL MANAGEMENT TEACHER CBC WITH AUTO DIFFERENTIAL STAT 10/11/2024 6:11 PM INDUSTRIAL MANAGEMENT TEACHER SCAN - RADIOLOGY/IMAGING 10/10/2024 SCAN - RADIOLOGY/IMAGING 08/27/2024 POCT HEMOGLOBIN A1C Routine 08/08/2024 1 1:33 AM INDUSTRIAL MANAGEMENT TEACHER Type 2 diabetes mellitus with hyperglycemia, without long-term current use of insulin (HCC) COLONOSCOPY Routine 05/09/2024 7:50 AM CDT ALBUMIN CREATININE RATIO, URINE Routine 05/05/2022 9:04 AM CDT Type 2 diabetes mellitus with hyperglycemia, without long-term current use of insulin (HCC) from Last 3 Months or Most Recently Relevant to Health Maintenance Results * eGFR (10/12/2024 5:05 AM INDUSTRIAL MANAGEMENT TEACHER) eGFR 89 >=60 mL/min/1. 73 m2 Comment: [...] was last reviewed 2021. Testing performed by: [address] [address] Blood 10/12/2024 5:05 AM INDUSTRIAL MANAGEMENT TEACHER 10/12/2024 5:34 AM INDUSTRIAL MANAGEMENT TEACHER Baldomero Sung MD LAB BLOOD ORDERABLES Final Result [facility] [address] Department [place] [address] * Differential, auto (10/12/2024 5:05 AM INDUSTRIAL MANAGEMENT TEACHER) Neutrophil abs 2.8 1.5 - 6.5 K/cumm Comment:Testing performed by : [address] [address] Imm gran abs 0.0 0.0 - 0.1 K/cumm [facility] Comment:Testing performed by : [address] [address] Lymphocyte abs 2.4 0.8 - 3.3 K/cumm [facility] Comment:Testing performed by : [address] [address] Monocyte abs 0.5 0.2 - 0.8 K/cumm [facility] Comment:Testing performed by : [address] [address] Eosinophil abs 0.1 0.0 - 0.5 K/cumm [facility] Comment:Testing performed by : [address] [address] Basophil abs 0.0 0.0 - 0.1 K/cumm [facility] Comment:Testing performed by : [address] [address] Neutrophil pct 48.7 % [facility] Comment: Interpretive Data Percent cell count reference ranges are not reported, since discordance with absolute values may lead to misinterpretation of CBC data. Current Interpretive Data was last revised on 2017. Testing performed by: [address] [address] Imm gran pct 0.2 % [facility] Comment: Interpretive Data Percent cell count reference ranges are not reported, since discordance with absolute values may lead to misinterpretation of CBC data. Current Interpretive Data was last revised on 2017. Testing performed by: [address] [address] Lymphocyte pct 41.0 % [facility] Comment: Interpretive Data Percent cell count reference ranges are not reported, since discordance with absolute values may lead to misinterpretation of CBC data. Current Interpretive Data was last revised on 2017. Testing performed by: [address] [address] Monocyte pct 8.5 % [facility] Comment: Interpretive Data Percent cell count reference ranges are not reported, since discordance with absolute values may lead to misinterpretation of CBC data. Current Interpretive Data was last revised on 2017. Testing performed by: [address] [address] Eosinophil pct 1.4 % [facility] Comment: Interpretive Data Percent cell count reference ranges are not reported, since discordance with absolute values may lead to misinterpretation of CBC data. Current Interpretive Data was last revised on 2017. Testing performed by: [address] [address] Basophil pct 0.2 % [facility] Comment: Interpretive Data Percent cell count reference ranges are not reported, since discordance with absolute values may lead to misinterpretation of CBC data. Current Interpretive Data was last revised on 2017. Testing performed by: [address] [address] Blood 10/12/2024 5:0 5 AM INDUSTRIAL MANAGEMENT TEACHER 10/12/2024 5:34 AM INDUSTRIAL MANAGEMENT TEACHER us Baldomero Sung MD LAB BLOOD ORDERABLES Final Result [facility] [address] Department of Laboratories [place], [place] [id number] * (ABNORMAL) CBC with auto differential (10/12/2024 5:05 AM INDUSTRIAL MANAGEMENT TEACHER) [facility] Signature WBC 5.8 3.8 - 9.9 K/cumm Comment:Testing performed by : [address], [address] Hgb 13.6 13.0 - 17.5 g/dL [facility] Comment:Testing performed by : [address] [address] Hct 41.9 38.9 - 50.3 % [facility] Comment:Testing performed by : [address], [address] Plt 260 150 - 400 K/cumm [facility] Comment:Testing performed by : [address], [address] MPV 9.2 9.1 - 12.3 fL [facility] Comment:Testing performed by : [address], [address] RBC 5.23 4.30 - 5.80 M/cumm [facility] Comment:Testing performed by : [address], [address] MCV 80.1(L) 81.3 - 96.4 fL [facility] Comment:Testing performed by : [address], [address] MCH 26.0(L) 27.1 - 33.3 pg [facility] Comment:Testing performed by : [address], [address] MCHC 32.5 32.3 - 35.7 g/dL [facility] Comment:Testing performed by : [address], [address] RDW CV 14.0 11.1 - 14.9 % [facility] Comment:Testing performed by : [address], [address] RDW SD 41.0 35.7 - 48.1 fL [facility] Comment:Testing performed by : [address], [address] NRBC abs 0.00 0.00 - 0.01 K/cumm [facility] Comment:Testing performed by : [address] [address] Blood 10/12/2024 5:05 AM INDUSTRIAL MANAGEMENT TEACHER 10/12/2024 5:34 AM INDUSTRIAL MANAGEMENT TEACHER Baldomero Sung MD LAB BLOOD ORDERABLES Final Result [facility] [address] Department [place] [address] * Comprehensive metabolic panel (10/12/2024 5:05 AM INDUSTRIAL MANAGEMENT TEACHER) Sodium 138 135 - 145 mmol/L Comment:Testing performed by : [address] [address] Potassium, pl 3.7 3.3 - 4.9 mmol/L [facility] Comment:Testing performed by : [address] [address] Chloride 100 97 - 110 mmol/L [facility] Comment:Testing performed by : [address] [address] CO2 30 22 - 32 mmol/L [facility] Comment:Testing performed by : [address] [address] Anion gap 8 2 - 15 mmol/L [facility] Comment:Testing performed by : [address] [address] BUN 7 6 - 25 mg/dL [facility] Comment:Testing performed by : [address] [address] Creatinine 1.00 0.80 - 1.30 mg/dL [facility] Comment:Testing performed by : [address] [address] Glucose 89 70 - 199 mg/dL [facility] [...] was last revised 2022. Testing performed by: [address] [address] Calcium 9.3 8.5 - 10.3 mg/dL [facility] Comment:Testing performed by : [address] [address] Bilirubin, total 0.4 0.1 - 1.2 mg/dL [facility] Comment:Testing performed by : [address] [address] Protein, pl 6.7 6.5 - 8.5 g/dL [facility] Comment:Testing performed by : [address] [address] Albumin 3.9 3.5 - 5.0 g/dL [facility] Comment:Testing performed by : [address] [address] Alk phos 54 40 - 130 Units/L [facility] Comment:Testing performed by : [address] [address] ALT 24 7 - 55 Units/L [facility] Comment:Testing performed by : [address] [address] AST 20 10 - 50 Units/L [facility] Comment:Testing performed by : [address] [address] Blood 10/12/2024 5:05 AM INDUSTRIAL MANAGEMENT TEACHER 10/12/2024 5:34 AM INDUSTRIAL MANAGEMENT TEACHER us Baldomero Sung MD LAB BLOOD ORDERABLES Final Result [facility] [address] Department [place] [address] * (ABNORMAL) Urinalysis reflex to microscopic and culture Urine (10/11/2024 8:41 PM INDUSTRIAL MANAGEMENT TEACHER) Color, ur Yellow Yellow Comment:Testing performed by : [address] [address] Clarity, ur Clear Clear [facility] Comment:Testing performed by : [address] [address] Specific gravity, ur >1.050(A) 1.003 - 1.030 [facility] Comment:Testing performed by : [address] [address] pH, urine 5.5 [facility] Comment: Interpretive Data U rine pH is affected by diet, medications, systemic acid-base disturbances, and renal tubular function. pH may affect urinary stone formation. For example, urine pH below 6.0 may help reduce the tendency for calcium phosphate stones and pH greater than 6.0 may reduce the tendency for uric acid stone formation. Source: [facility] [employer] ([employer]) Current Interpretive Data was last revised on 2017 Testing performed by: [address] [address] Protein, ur ql Negative Negative [facility] Comment:Testing performed by : [address] [address] Glucose, ur ql Negative Negative [facility] Comment:Testing performed by : [address] [address] Ketones, ur Negative Negative [facility] Comment:Testing performed by : [address] [address] Bilirubin, ur Negative Negative [facility] Comment:Testing performed by : [address] [address] Blood, ur Negative Negative [facility] Comment:Testing performed by : [address] [address] Urobilinogen, ur <2.0 <2.0 mg/dL [facility] Comment:Testing performed by : [address] [address] Nitrite, ur Negative Negative [facility] Comment:Testing performed by : [address] [address] Leukocyte esterase, ur Negative Negative [facility] Comment:Testing performed by : [address] [address] UA reflex comment Reflex conditions for microscopic UA and culture not met. [facility] Comment:Testing performed by : [facility], [address] [facility], [place]., [address] Urine 10/11/2024 8:41 PM INDUSTRIAL MANAGEMENT TEACHER 10/11/2024 8:50 PM INDUSTRIAL MANAGEMENT TEACHER us Blu Terry Jr., MD LAB MICROBIOLOGY - GENE RAL ORDERABLES Final Result [facility] [address] Department [place] [address] * CT Abdomen Pelvis W Contrast (10/11/2024 7:24 PM INDUSTRIAL MANAGEMENT TEACHER) Anatomical Region Laterality Modality Body N/A Computed Tomogra phy 10/11/2024 8:00 PM INDUSTRIAL MANAGEMENT TEACHER Narrative 10/11/2024 8:03 PM INDUSTRIAL MANAGEMENT TEACHER EXAM DESCRIPTION: CT ABDOMEN PELVIS W CONTRAST [...] Kurt Love M.D. AR: TORSTEN Report ID: [id number] Reading Location: [id number] Procedure Note Kurt Love MD - 10/11/2024 [...] Kurt Love M.D. AR: TORSTEN Report ID: [id number] Reading Location: [id number] Sharee MONTENEGRO IM CT PROCEDURES Final Resu lt * Lactate (10/11/2024 6:11 PM INDUSTRIAL MANAGEMENT TEACHER) Lactate 1.5 0.7 - 2.0 mmol/L Comment:Testing performed by : [facility], [address] [place] [address], [place]., [address] Blood 10/11/2024 6:11 PM INDUSTRIAL MANAGEMENT TEACHER 10/11/2024 6:16 PM INDUSTRIAL MANAGEMENT TEACHER us Blu Terry Jr., MD LAB BLOOD ORDERABLES Fi nal Result Performing Organization Address [facility] Co de Phone Number [facility] [address] [address] * eGFR (10/11/2024 6:11 PM INDUSTRIAL MANAGEMENT TEACHER) eGFR 74 >=60 mL/min/1. 73 m2 Comment: [...] was last reviewed 2021. Testing performed by: [facility], [address] [place] [address]., [address] Blood 10/11/2024 6:11 PM INDUSTRIAL MANAGEMENT TEACHER 10/11/2024 6:16 PM INDUSTRIAL MANAGEMENT TEACHER us Blu Terry Jr., MD LAB BLOOD ORDERABLES Fi nal Result Performing Organization Address City/[facility]/ZIP Co de Phone Number [facility] [address] [employer] [place] [address] * Differential, auto (10/11/2024 6:11 PM INDUSTRIAL MANAGEMENT TEACHER) Neutrophil abs 2.2 1.5 - 6.5 K/cumm Comment:Testing performed by : [address], [place]., [address] Imm gran abs 0.0 0.0 - 0.1 K/cumm [facility] Comment:Testing performed by : [facility], [address] [place] [address], [place]., [address] Lymphocyte abs 1.9 0.8 - 3.3 K/cumm [facility] Comment:Testing performed by : [address] [address] Monocyte abs 0.4 0.2 - 0.8 K/cumm [facility] Comment:Testing performed by : [address], [place]., [address] Eosinophil abs 0.0 0.0 - 0.5 K/cumm [facility] Comment:Testing performed by : [address] [address] Basophil abs 0.0 0.0 - 0.1 K/cumm [facility] Comment:Testing performed by : [address] [address] Neutrophil pct 47.9 % [facility] Comment: Interpretive Data Percent cell count reference ranges are not reported, since discordance with absolute values may lead to misinterpretation of CBC data. Current Interpretive Data was last revised on 2017. Testing performed by: [address] [address] Imm gran pct 0.2 % [facility] Comment: Interpretive Data Percent cell count reference ranges are not reported, since discordance with absolute values may lead to misinterpretation of CBC data. Current Interpretive Data was last revised on 2017. Testing performed by: [address] [address] Lymphocyte pct 41.9 % [facility] Comment: Interpretive Data Percent cell count reference ranges are not reported, since discordance with absolute values may lead to misinterpretation of CBC data. Current Interpretive Data was last revised on 2017. Testing performed by: [address] [address] Monocyte pct 8.9 % CERNER Comment: Interpretive Data Percent cell count reference ranges are not reported, since discordance with absolute values may lead to misinterpretation of CBC data. Current Interpretive Data was last revised on 2017. Testing performed by: [address] [address] Eosinophil pct 0.9 % TERESA Comment: Interpretive Data Percent cell count reference ranges are not reported, since discordance with absolute values may lead to misinterpretation of CBC data. Current Interpretive Data was last revised on 2017. Testing performed by: [address] [address] Basophil pct 0.2 % TERESA Comment: Interpretive Data Percent cell count reference ranges are not reported, since discordance with absolute values may lead to misinterpretation of CBC data. Current Interpretive Data was last revised on 2017. Testing performed by: [address] [address] Blood 10/11/2024 6:11 PM INDUSTRIAL MANAGEMENT TEACHER 10/11/2024 6:16 PM INDUSTRIAL MANAGEMENT TEACHER us Blu Terry Jr., MD LAB BLOOD ORDERABLES Fi nal Result [facility] [address] Department [place] [address] * (ABNORMAL) CBC with auto differential (10/11/2024 6:11 PM INDUSTRIAL MANAGEMENT TEACHER) Pathologist [facility] WBC 4.5 3.8 - 9.9 K/cumm Comment:Testing performed by : [address] [address] Hgb 14.6 13.0 - 17.5 g/dL TERESA RAYMUNDO Comment:Testing performed by : [address] [address] Hct 43.4 38.9 - 50.3 % TERESA RAYMUNDO Comment:Testing performed by : [address] [address] Plt 283 150 - 400 K/cumm TERESA Comment:Testing performed by : [address] [address] MPV 9.3 9.1 - 12.3 fL TERESA RAYMUNDO Comment:Testing performed by : [address] [address] RBC 5.45 4.30 - 5.80 M/cumm TERESA RAYMUNDO Comment:Testing performed by : [address] [address] MCV 79.6(L) 81.3 - 96.4 fL TERESA RAYMUNDO Comment:Testing performed by : [address] [address] MCH 26.8(L) 27.1 - 33.3 pg TERESA RAYMUNDO Comment:Testing performed by : [address] [address] MCHC 33.6 32.3 - 35.7 g/dL TERESA RAYMUNDO Comment:Testing performed by : [address] [address] RDW CV 14.1 11.1 - 14.9 % TERESA Comment:Testing performed by : [address], [address] RDW SD 40.5 35.7 - 48.1 fL TERESA Comment:Testing performed by : [address] [address] NRBC abs 0.00 0.00 - 0.01 K/cumm TERESA Comment:Testing performed by : [address] [address] Blood Venous blood specimen / Unknown 10/11/2024 6:11 PM INDUSTRIAL MANAGEMENT TEACHER 10/11/2024 6:16 PM INDUSTRIAL MANAGEMENT TEACHER us Blu Terry Jr., MD LAB BLOOD ORDERABLES Fi nal Result [facility] [address] Department [place] [address] * (ABNORMAL) Lipase (10/11/2024 6:11 PM INDUSTRIAL MANAGEMENT TEACHER) Lipase 101(H) 10 - 99 Units/L Comment:Testing performed by : [address] [address] Blood Venous blood specimen / Unknown 10/11/2024 6:11 PM INDUSTRIAL MANAGEMENT TEACHER 10/11/2024 6:16 PM INDUSTRIAL MANAGEMENT TEACHER us Blu Terry Jr., MD LAB BLOOD ORDERABLES Fi nal Result [facility] [address] Department [place] [address] * Comprehensive metabolic panel (10/11/2024 6:11 PM INDUSTRIAL MANAGEMENT TEACHER) Sodium 138 135 - 145 mmol/L Comment:Testing performed by : [address] [address] Potassium, pl 4.1 3.3 - 4.9 mmol/L TERESA Comment:Testing performed by : [address] [address] Chloride 101 97 - 110 mmol/L TERESA Comment:Testing performed by : [address] [address] CO2 28 22 - 32 mmol/L TERESA Comment:Testing performed by : [address] [address] Anion gap 9 2 - 15 mmol/L TERESA Comment:Testing performed by : [address] [address] BUN 10 6 - 25 mg/dL TERESA Comment:Testing performed by : [address] [address] Creatinine 1.16 0.80 - 1.30 mg/dL TERESA Comment:Testing performed by : [address] [address] Glucose 146 70 - 199 mg/dL TERESA [...] was last revised 2022. Testing performed by: [address] [address] Calcium 9.9 8.5 - 10.3 mg/dL TERESA Comment:Testing performed by : [address] [address] Bilirubin, total 0.4 0.1 - 1.2 mg/dL TERESA Comment:Testing performed by : [address] [address] Protein, pl 7.3 6.5 - 8.5 g/dL TERESA Comment:Testing performed by : [address], [place]., [address] Albumin 4.3 3.5 - 5.0 g/dL TERESA Comment:Testing performed by : [address] [address] Alk phos 60 40 - 130 Units/L TERESA Comment:Testing performed by : [address] [address] ALT 28 7 - 55 Units/L [facility] Comment:Testing performed by : [address] [address] AST 22 10 - 50 Units/L TERESA Comment:Testing performed by : [address] [address] Blood 10/11/2024 6:11 PM INDUSTRIAL MANAGEMENT TEACHER 10/11/2024 6:16 PM INDUSTRIAL MANAGEMENT TEACHER Blu Terry Jr., MD LAB BLOOD ORDERABLES Fi nal Result [facility] RAYMUNDO [address] Department [place] [address] * SCAN - RADIOLOGY/IMAGING (10/10/2024) Anatomical Region Laterality Modality Other Provider Scanning Final Result * SCAN - RADIOLOGY/IMAGING (08/27/2024) Anatomical Region Laterality Modality Other us Provider Scanning Final Result * (ABNORMAL) POCT hemoglobin A1c (08/08/2024 11:33 AM INDUSTRIAL MANAGEMENT TEACHER) Hemoglobin A1C, POC 7.0 4.0 - 5.6 % Blood 08/08/2024 11:3 3 AM INDUSTRIAL MANAGEMENT TEACHER Nathan Martinez MD POINT OF CARE TEST [...] MD LAB URINE ORDERABLES Final Result [facility] [address] [place] [id number] from Last 3 Months or Most Recently Relevant to Health Maintenance Insurance [address] CLAIMS [address] [place] [id number] [facility] CLAIMS Member Subscriber Plan / Payer ( fective 2020-Present) Name:Erich Allen Relation to Subscriber:Self Name:Erich Allen Payer ID:[id number] (NAIC) Group ID:[id number] Type: Address: [place] [id number] CLAIMS Advance Directives For more information, please contact: [phone] * Full Code (Latest Code Status on File) Date Activated Date Inactivated Comments 10/12/2024 2:05 AM 10/15/2024 5:49 PM Care Teams Laborer Shellfish Processing Relationship Specialty Start Date End Date Nathan Martinez MD PCP - General Family Practice 09/10/20 Monique Garcia MD Referring Physician Gastroenterology 06/11/20 Monique Garcia MD Referring Physician Gastroenterology 06/11/20
[2024-11-10 16:29] VITALS: BP 150/84; PULSE 97; RESP 16; TEMP 36.8; O2SAT 100
--- NOTE | 2024-11-10 18:45 | ED_ITS ---
HPI - Abdominal Pain General Chief Complaint: Abdominal Pain <GABRIEL Rivas Last Filed: 11/10/24 18:50> Stated Complaint: Abdominal pain-hx of SBO, Diverticulitis <GABRIEL Rivas Last Filed: 11/10/24 18:50> Time Seen by Provider: 11/10/24 18:45 <GABRIEL Rivas Last Filed: 11/10/24 18:50> Focused HPI: Patient is a 54 y/o male who presents to the ED with c/o LLQ pain. Patient has hx of recurrent SBO, adhesions, sigmoidectomy, cholecystectomy, diverticulitis, Yordy fundoplication, hernia repair. Reports he began having increased pain in his left lower abdomen on Thursday. Pain present in left lower quadrant, left periumbilical region. Consistent with previous obstructions. Last obstruction was in June. Patient states his last bowel movement was Thursday night. Has not taken anything for the pain. Reports having nausea since yesterday, vomiting and dry heaving today. Denies fevers. Patient has had numerous CT scans in the past. Discussed this with patient. Discussed obtaining KUB XR. He would like to proceed with CT scan today. GENERAL: Well-appearing, well-nourished, and in no acute distress. HEAD: Normocephalic, atraumatic. CHEST: Clear to auscultation. ?No respiratory distress. HEART: Regular rate and rhythm.? ABD: Diffuse tenderness, more focal TTP in LLQ. Normoactive BS. NEURO: ?Alert and oriented x3. Patient screened in triage and initial orders placed.? ?Additional care and disposition to be based upon?diagnostic testing and treatment. <GABRIEL Rivas Last Filed: 11/10/24 18:50> Source: patient <GABRIEL Rivas Last Filed: 11/10/24 18:50> Mode of arrival: ambulatory <GABRIEL Rivas Last Filed: 11/10/24 18:50> Limitations: no limitations <GABRIEL Rivas Last Filed: 11/10/24 18:50> History of Present Illness HPI narrative: I agree with the assessment and documentation of Ann Bravo PA-C. <Yina Hansen APRN - Last Filed: 11/10/24 22:19> Related Data Home Medications: Home Medications ?Medication ?Instructions ?Recorded ?Confirmed ?Last Taken ?Type escitalopram oxalate 20 mg tablet 20 mg PO DAILY 07/18/21 08/27/24 08/25/24 History modafinil 100 mg tablet 100 mg PO DAILY PRN Systemic Signs 07/18/21 08/27/24 08/18/24 History And Symptoms trazodone 100 mg tablet 100 mg PO HS 07/18/21 08/27/24 08/25/24 History famotidine 20 mg tablet (Pepcid AC) 20 mg PO DAILY PRN Indigestion 02/02/23 08/27/24 Unknown History semaglutide 1 mg/dose (4 mg/3 mL) 1 mg subcut WEEKLY 08/27/24 08/27/24 08/21/24 History subcutaneous pen injector (Ozempic) <Ann Bravo PA-C - Last Filed: 11/10/24 18:50> Allergies/Adverse Reactions: Allergies Allergy/AdvReac Type Severity Reaction Status Date / Time gabapentin Allergy Anxiety Verified 11/10/24 20:18 ketorolac (From Toradol) Allergy Hives Verified 11/10/24 20:18 promethazine (From Phenergan) Allergy Anxiety Verified 11/10/24 20:18 zolpidem (From Ambien) AdvReac Other Verified 11/10/24 20:18 <Ann Bravo PA-C - Last Filed: 11/10/24 18:50> Review of Systems 2 Review of Systems: All systems reviewed & are unremarkable except as noted in HPI and below <Yina Hansen APRN - Last Filed: 11/10/24 22:19> [facility] Past Medical History Medical History: Medical History Posttraumatic stress disorder Type 2 diabetes mellitus History of small bowel obstruction Depression Diverticulitis <Ann Bravo PA-C - Last Filed: 11/10/24 18:50> Surgical History Surgical History: Surgical History History of orthopedic surgery Right ankle and hand surgery. History of laparoscopic appendectomy Status post laparoscopic Ludmila fundoplication History of laparoscopic cholecystectomy History of exploratory laparotomy With adhesiolysis for small bowel obstruction 3-4 years ago in [place]. History of colon resection Sigmoid colon resection for diverticulitis 6-7 years ago in [place]. <Ann Bravo PA-C - Last Filed: 11/10/24 18:50> Family History Family History: Family History Father Heart disease Grandparent Lung cancer <Ann Bravo PA-C - Last Filed: 11/10/24 18:50> Social History Social History: Social History Social History: Surrogate medical decision maker: Annelise Garcia, significant other. Code status: Full code. Smoking status: Never smoker Alcohol intake: never Substance use: never Substance use type: does not use Do You Feel Safe in your Home?: Yes Lack of Transportation: No Lack of Food: Never True Current Housing: I Have Housing Concerned About Future Housing: No Difficulty Paying Gas/Electric Bills: No Difficulty Paying for Meds: No Currently Unemployed: No Education: High School Diploma/GED Difficulty w/ Childcare or Family Care: No Additional living arrangements comments: Lives in [place] with significant other. He has 1 son. Additional occupation/education comments: Served in the [employer]. 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 Spiritual care concerns: No <Ann Bravo PA-C - Last Filed: 11/10/24 18:50> Exam 2 Narrative: GENERAL: Well-appearing, well-nourished, and in no acute distress. HEAD: Normocephalic, atraumatic. CHEST: Clear to auscultation. ?No respiratory distress. HEART: Regular rate and rhythm.? ABD: Diffuse tenderness, more focal TTP in LLQ. Normoactive BS. NEURO: ?Alert and oriented x3. <Yina Hansen APRN - Last Filed: 11/10/24 22:19> Course Vital Signs Vital signs: Vital Signs Temperature 36.8 C 11/10/24 16:29 Pulse Rate 97 11/10/24 16:29 Respiratory Rate 16 11/10/24 16:29 Blood Pressure 150/84 H 11/10/24 16:29 Pulse Oximetry 100 11/10/24 16:29 Oxygen Delivery Room Air 11/10/24 16:29 Temperature 36.7 C 11/10/24 21:12 Pulse Rate 77 11/10/24 21:12 Respiratory Rate 16 11/10/24 21:12 Blood Pressure 136/82 11/10/24 21:12 Pulse Oximetry 96 11/10/24 21:12 Oxygen Delivery Room Air 11/10/24 16:29 <Ann Bravo PA-C - Last Filed: 11/10/24 18:50> Vital Signs Temperature 36.8 C 11/10/24 16:29 Pulse Rate 97 11/10/24 16:29 Respiratory Rate 16 11/10/24 16:29 Blood Pressure 150/84 H 11/10/24 16:29 Pulse Oximetry 100 11/10/24 16:29 Oxygen Delivery Room Air 11/10/24 16:29 Temperature 36.7 C 11/10/24 21:12 Pulse Rate 77 11/10/24 21:12 Respiratory Rate 16 11/10/24 21:12 Blood Pressure 136/82 11/10/24 21:12 Pulse Oximetry 96 11/10/24 21:12 Oxygen Delivery Room Air 11/10/24 16:29 <Yina Hansen APRN - Last Filed: 11/10/24 22:19> MDM - Abdominal Pain MDM Narrative Medical decision making narrative: MSE by ERIC in triage. <Ann Bravo PA-C - Last Filed: 11/10/24 18:50> MSE by ERIC in triage. Patient is a 54 y/o male who presents to the ED with c/o LLQ pain. Patient has hx of recurrent SBO, adhesions, sigmoidectomy, cholecystectomy, diverticulitis, Yordy fundoplication, hernia repair. Reports he began having increased pain in his left lower abdomen on Thursday. Pain present in left lower quadrant, left periumbilical region. Consistent with previous obstructions. Last obstruction was in June. Patient states his last bowel movement was Thursday night. Has not taken anything for the pain. Reports having nausea since yesterday, vomiting and dry heaving today. Denies fevers. Labs Ordered: Lactic acid, CBC, CMP, lipase, UA Imaging Ordered: CT abdomen/pelvis Medications Ordered: 1 L normal saline IV bolus, morphine 4 mg IV Results: Pt's CT abdomen/pelvis indicates The bladder is distended, and otherwise unremarkable. The prostate gland is not enlarged. Body wall and musculoskeletal: Small fat-containing umbilical hernia. No significant degenerative disease within the lower thoracic or lumbosacral spine. Diagnosis: LLQ abdominal pain Patient Education/Shared MDM: Results of lab work and CT scan shared with patient. He endorses improvement following pain medication administration (pain down to a 3/10). Patient strongly advised to maintain hydration status upon discharge and follow-up with his PCP and gastroenterology as soon as possible. He will be discharged home with a prescription for . Strict return precautions provided. Patient verbalized understanding is in agreement with plan. Vital signs stable at time of discharge. All questions answered. <Yina Hansen APRN - Last Filed: 11/10/24 22:19> Differential Diagnosis Differential diagnosis: Likely abdominal pain, diverticulitis, gastroenteritis and small bowel obstruction <Yina Hansen APRN - Last Filed: 11/10/24 22:19> Lab Data Result diagrams: 11/10/24 19:25 11/10/24 19:25 <Ann Bravo PA-C - Last Filed: 11/10/24 18:50> Labs: Lab Results 11/10/24 11/10/24 11/10/24 Range/Units 19:25 19:29 20:46 WBC 7.8 (4.5-10.0) K/mm3 RBC 5.67 (4.6-6.20) M/mm3 Hgb 15.2 (14.0-18.0) g/dL Hct 45.9 (42.0-52.0) % MCV 81.0 (80-100) fl MCH 26.8 (26-34) pg MCHC 33.1 (32-36) g/dl RDW 14.3 (11.5-14.5) % Plt Count 263 (150-375) k/mm3 MPV 8.8 (7.4-10.4) fl Immature Gran % (Auto) 0.1 (0-0.5) % Neut % (Auto) 64.4 (45.5-73.1) % Lymph % (Auto) 28.3 (18.3-44.2) % [place] % (Auto) 6.0 (2.6-8.5) % Eos % (Auto) 0.8 (0-4.4) % Baso % (Auto) 0.4 (0.2-1.2) % Lymph # (Auto) 2.20 (0.9-3.2) K/mm3 [place] # (Auto) 0.5 (0.1-0.6) K/mm3 Eos # (Auto) 0.1 (0-0.3) K/mm3 Baso # (Auto) 0.0 (0.0-0.1) K/mm3 Abs Immat Gran (auto) 0.01 (0.00-0.031) K/mm3 Absolute Neuts (auto) 5.0 (1.3-6.7) K/mm3 Absolute Nucleated RBC 0.000 (0.0-0.012) K/mm3 Nucleated RBC % 0.0 (0.0-0.2) % Sodium 137 (137-145) mmol/L Potassium 4.2 (3.4-5.0) mmol/L Chloride 101 (98-107) mmol/L Carbon Dioxide 25 (22-30) mmol/L Anion Gap 11 (4-12) mmol/L BUN 15 (9-20) mg/dL Creatinine 1.21 (0.7-1.3) mg/dL Estim Creat Clear Calc 66 ml/min Estimated GFR > 60 (59 - ) Glucose 132 H (65-110) mg/dL Lactic Acid 1.1 (0.7-2.0) mmol/L Calcium 9.3 (8.4-10.2) mg/dL Total Bilirubin 0.5 (0.2-1.3) mg/dL AST 31 (17-59) U/L ALT 46 (6-50) U/L Alkaline Phosphatase 66 (38-126) U/L Total Protein 8.0 (6.3-8.2) g/dL Albumin 4.8 (3.5-5.1) g/dL Lipase 154 (23-300) U/L Urine Color Yellow (Yellow) Urine Appearance Clear (Clear) Urine pH 5.5 (5.0-9.0) Ur Specific [place] 1.030 (1.001-1.035) Urine Protein Negative (Negative) mg/dL Urine Glucose (UA) Negative (Negative) mg/dL Urine Ketones Negative (Negative) mg/dL Ur Blood (Man) Negative (Negative) Urine Nitrate Negative (Negative) Urine Bilirubin Negative (Negative) Urine Urobilinogen 0.2 (<2.0) mg/dL Leukocyte Esterase Rfl Negative (Negative) DESTINEY/UL <Ann Bravo PA-C - Last Filed: 11/10/24 18:50> Lab Results 11/10/24 11/10/24 11/10/24 Range/Units 19:25 19:29 20:46 WBC 7.8 (4.5-10.0) K/mm3 RBC 5.67 (4.6-6.20) M/mm3 Hgb 15.2 (14.0-18.0) g/dL Hct 45.9 (42.0-52.0) % MCV 81.0 (80-100) fl MCH 26.8 (26-34) pg MCHC 33.1 (32-36) g/dl RDW 14.3 (11.5-14.5) % Plt Count 263 (150-375) k/mm3 MPV 8.8 (7.4-10.4) fl Immature Gran % (Auto) 0.1 (0-0.5) % Neut % (Auto) 64.4 (45.5-73.1) % Lymph % (Auto) 28.3 (18.3-44.2) % [place] % (Auto) 6.0 (2.6-8.5) % Eos % (Auto) 0.8 (0-4.4) % Baso % (Auto) 0.4 (0.2-1.2) % Lymph # (Auto) 2.20 (0.9-3.2) K/mm3 [place] # (Auto) 0.5 (0.1-0.6) K/mm3 Eos # (Auto) 0.1 (0-0.3) K/mm3 Baso # (Auto) 0.0 (0.0-0.1) K/mm3 Abs Immat Gran (auto) 0.01 (0.00-0.031) K/mm3 Absolute Neuts (auto) 5.0 (1.3-6.7) K/mm3 Absolute Nucleated RBC 0.000 (0.0-0.012) K/mm3 Nucleated RBC % 0.0 (0.0-0.2) % Sodium 137 (137-145) mmol/L Potassium 4.2 (3.4-5.0) mmol/L Chloride 101 (98-107) mmol/L Carbon Dioxide 25 (22-30) mmol/L Anion Gap 11 (4-12) mmol/L BUN 15 (9-20) mg/dL Creatinine 1.21 (0.7-1.3) mg/dL Estim Creat Clear Calc 66 ml/min Estimated GFR > 60 (59 - ) Glucose 132 H (65-110) mg/dL Lactic Acid 1.1 (0.7-2.0) mmol/L Calcium 9.3 (8.4-10.2) mg/dL Total Bilirubin 0.5 (0.2-1.3) mg/dL AST 31 (17-59) U/L ALT 46 (6-50) U/L Alkaline Phosphatase 66 (38-126) U/L Total Protein 8.0 (6.3-8.2) g/dL Albumin 4.8 (3.5-5.1) g/dL Lipase 154 (23-300) U/L Urine Color Yellow (Yellow) Urine Appearance Clear (Clear) Urine pH 5.5 (5.0-9.0) Ur Specific [place] 1.030 (1.001-1.035) Urine Protein Negative (Negative) mg/dL Urine Glucose (UA) Negative (Negative) mg/dL Urine Ketones Negative (Negative) mg/dL Ur Blood (Man) Negative (Negative) Urine Nitrate Negative (Negative) Urine Bilirubin Negative (Negative) Urine Urobilinogen 0.2 (<2.0) mg/dL Leukocyte Esterase Rfl Negative (Negative) DESTINEY/UL <Yina Hansen, MULTIM[employer] SERVICES COORDINATOR - Last Filed: 11/10/24 22:19> Imaging Data Radiologist's impression: ITS Impressions Abdomen/Pelvis CT 11/10/24 20:46 IMPRESSION: No acute intra-abdominal pathology, as detailed above. <Ann N. Gaudreault, PA-C - Last Filed: 11/10/24 18:50> ITS Impressions Abdomen/Pelvis CT 11/10/24 20:46 IMPRESSION: No acute intra-abdominal pathology, as detailed above. <Yina Hansen APRN - Last Filed: 11/10/24 22:19> Discharge Plan Discharge Instructions: Antibiotic Form <GABRIEL Rivas Last Filed: 11/10/24 18:50> Patient Language: Nigerien <Ann Bravo PA-C - Last Filed: 11/10/24 18:50> Prescriptions: No Action trazodone 100 mg tablet 100 mg PO HS modafinil 100 mg tablet 100 mg PO DAILY PRN (Reason: Systemic Signs And Symptoms) Rx Instructions: Takes for ADD escitalopram oxalate 20 mg tablet 20 mg PO DAILY Ozempic 1 mg/dose (4 mg/3 mL) pen injector 1 mg subcut WEEKLY ondansetron 4 mg tablet,disintegrating 4 mg PO Q4H 0 Days Qty: 10 0RF Rx Instructions: give 1st dose 30min before emetogenic chemo dicyclomine 20 mg tablet 20 mg PO QID Qty: 20 0RF famotidine [Pepcid AC] 20 mg tablet 20 mg PO DAILY PRN (Reason: Indigestion) sennosides-docusate sodium [Senokot-S] 8.6-50 mg Tablet 1 tab PO Q12HR PRN (Reason: constipation) Qty: 60 0RF docusate sodium 100 mg Capsule 100 mg PO Q12HR PRN (Reason: constipation) Qty: 60 0RF ondansetron 4 mg tablet,disintegrating 4 mg PO Q6H PRN (Reason: nausea and vomiting) Qty: 30 0RF ondansetron 4 mg tablet,disintegrating 4 mg PO Q8H Qty: 14 0RF ondansetron 4 mg tablet,disintegrating 4 mg PO Q6H PRN (Reason: nausea and vomiting) Qty: 7 0RF docusate sodium 100 mg capsule 100 mg PO BID Qty: 60 0RF polyethylene glycol 3350 17 gram/dose powder 17 g PO DAILY Qty: 238 0RF ondansetron 4 mg tablet,disintegrating 4 mg PO Q8H Qty: 14 0RF omeprazole magnesium [Prilosec OTC] 20 mg tablet,delayed release (DR/EC) 20 mg PO DAILY Qty: 10 0RF <Ann Bravo PA-C - Last Filed: 11/10/24 18:50> Follow-up/Referrals: Juan,Nathan Ramos MD [Primary Care Provider] - <Ann Bravo PA-C - Last Filed: 11/10/24 18:50>
--- OUTSIDE RECORDS SUMMARY | 2024-11-10 19:18 | XMS_ITS | Clinical Summary ---
Author Organization [facility] [employer] [place] Address [address] [place] [address] Care Team Providers Care Power Shovel Operator Helper Name Role Phone Unavailable Primary Care Provider Unavailabl e Source Comments [facility] [place],non-owned Affiliates and Associated Physician Practices is amultiple site organization consisting of ambulatory clinics and hospital sitesin [place], [place], [place] and [place]. This disclosure is being madepursuant to the Care Everywhere program and may not contain all information available regarding this patient. Last updated 18.[facility] [place] Allergies No known active allergies Medications * [...]
--- OUTSIDE RECORDS SUMMARY | 2024-11-10 19:18 | XMS_ITS | CCD ---
Author Name Interface, [id number] [facility] Address [address] [place] [address] [facility] Address [address] [place] [address] Care Team Providers Care Raw Stock Dyeing Machine Tender Name Role Phone Mata Ledezma Unavailable Unavailable Reason for Visit Encounters Medications Problems Social History
--- OUTSIDE RECORDS SUMMARY | 2024-11-10 19:18 | XMS_ITS | Clinical Summary ---
Author Organization [facility] Address [address] [place] [address] Care Team Providers Care Jig Builder Name Role Phone Monique Garcia MD Unavailable [phone] Monique Garcia MD Unavailable [phone] Nathan Martinez MD Primary Care Provider [phone] Allergies Active Allergy Reactions Criticality Noted Date [...] mg Assessment & Plan (10/15/2023 11:29 AM STUDENT DEVELOPMENT DEAN): A1c today . Continue glipizide/Trulicity at same [...] 09/12/2022 Assessment & Plan (09/12/2022 9:35 AM STUDENT DEVELOPMENT DEAN): Some tinnitus for 2 months. Possible hearing loss. Ear canals normal today drums normal ENT refer Lipidemia 09/11/2022 Assessment & Plan (08/05/2024 2:15 PM STUDENT DEVELOPMENT DEAN): Continue atorvastatin same dosage. Needs repeat lipid Assessment & Plan (05/01/2024 12:22 PM CDT): Needs repeat lipids. Continue atorvastatin at same dose. Assessment & Plan (01/07/2024 4:08 PM CDT): Continue atorvastatin same dosage but needs repeat lipids. Assessment & Plan (10/15/2023 11:35 AM STUDENT DEVELOPMENT DEAN): Continue atorvastatin at same dosage. Well controlled. Assessment & Plan (06/23/2023 2:03 PM CDT): Continue Lipitor same dosage but needs repeat lipids. Assessment & Plan (01/15/2023 1:58 PM CDT): Continue atorvastatin same dosage but needs repeat lipids Assessment & Plan (09/11/2022 3:45 PM STUDENT DEVELOPMENT DEAN): Continue atorvastatin same dosage Acute left ankle [...] counseling. Assessment & Plan (10/15/2023 12:07 PM STUDENT DEVELOPMENT DEAN): Diabetic foot exam: Left monofilament exam: normal [...] surgeon Assessment & Plan (09/02/2021 8:59 AM STUDENT DEVELOPMENT DEAN): Pain most recently is in the right [...] 09/02/2021 Assessment & Plan (09/02/2021 9:00 AM STUDENT DEVELOPMENT DEAN): Refer to Dermatology Chronic abdominal pain 08/30/2021 Assessment & Plan (05/02/2024 3:02 PM CDT): History of multiple adhesions and several times he has had to had bowel obstruction treated. Constant pain. Worse about 30 minutes after eating. Referral to GI. Left lower quadrant Assessment & Plan (09/16/2021 9:44 AM STUDENT DEVELOPMENT DEAN): Try peppermint oil pill daily. Discontinue Levbid. Refer to GI. Needs colonoscopy. Assessment & Plan (09/02/2021 8:59 AM STUDENT DEVELOPMENT DEAN): Previous pain is similar to this pain [...] 10/08/2020 Assessment & Plan (08/05/2024 2:14 PM STUDENT DEVELOPMENT DEAN): Continue Provigil at same dosage. Well controlled. Return 3 months Assessment & Plan (05/01/2024 12:20 PM CDT): Continue Provigil at same dosage. Well controlled. Return 3 months Assessment & Plan (01/07/2024 4:03 PM CDT): Continue Provigil at same dosage. Well controlled. Assessment & Plan (10/16/2023 1:08 PM STUDENT DEVELOPMENT DEAN): Takes Provigil off-label. Adequate control with medicine. [...] usage. Assessment & Plan (09/13/2021 9:27 AM STUDENT DEVELOPMENT DEAN): Continue modafinil at same dosage. Well controlled. No signs of toxicity and patient understands this is off-label treatment Assessment & Plan (08/30/2021 7:27 AM STUDENT DEVELOPMENT DEAN): Allow modafinil as no evidence of toxicity and evidence of benefit Assessment & Plan (06/11/2021 1:30 PM CDT): Continue Provigil at same dosage. Well controlled. Assessment & Plan (02/08/2021 10:32 AM CDT): Continue modafinil at same dosage. Well controlled. Assessment & Plan (11/09/2020 1:42 PM CDT): Allow modafinil but understands off-label Assessment & Plan (10/08/2020 10:45 AM STUDENT DEVELOPMENT DEAN): Previously diagnosed with this by psychiatrist at [place]. good response previously to modafinil but I [...] PFTs Assessment & Plan (10/08/2020 10:46 AM STUDENT DEVELOPMENT DEAN): Much improved Assessment & Plan (09/10/2020 10:03 AM STUDENT DEVELOPMENT DEAN): Mainly with exertion and will refer to [...] disease Assessment & Plan (10/08/2020 10:45 AM STUDENT DEVELOPMENT DEAN): Much improved Assessment & Plan (09/10/2020 9:58 AM STUDENT DEVELOPMENT DEAN): Persisting cough and will refer to Pulmonary for Rash 09/10/2020 Assessment & Plan (10/08/2020 10:45 AM STUDENT DEVELOPMENT DEAN): Much improved Assessment & Plan (09/10/2020 10:02 AM STUDENT DEVELOPMENT DEAN): There is a dry Pash of eczematoid type rash on his back that is different than psoriasis he has other areas. We will give him some topical hydrocortisone cream but not to use longer than 2 weeks as risk of atrophy and tolerance. Nasal polyp 09/10/2020 Assessment & Plan (09/10/2020 10:07 AM STUDENT DEVELOPMENT DEAN): ENT referral Anemia 09/09/2020 Assessment & Plan (09/09/2020 1:03 PM STUDENT DEVELOPMENT DEAN): Needs iron studies and methylmalonic acid level. Needs to have colonoscopy done. Type 2 diabetes mellitus wit h hyperglycemia, without long-term current use of insulin 06/08/2020 Assessment & Plan (08/08/2024 11:33 AM STUDENT DEVELOPMENT DEAN): A1c today. Is improved at 7.0. Continue [...] controlled. Assessment & Plan (09/11/2022 3:47 PM STUDENT DEVELOPMENT DEAN): A1C TODAY.BMI Follow-up includes: nutrition counseling and [...] weekly Assessment & Plan (09/16/2021 9:43 AM STUDENT DEVELOPMENT DEAN): A1c today. Diabetes needing better control. No hypoglycemic symptoms. Metformin, Jardiance, and glipizide daily. No significant improvement and will add Trulicity 0.75 mg weekly Assessment & Plan (08/30/2021 7:25 AM STUDENT DEVELOPMENT DEAN): A1c today. Assessment & Plan (06/17/2021 10:38 [...] today. Assessment & Plan (10/08/2020 10:42 AM STUDENT DEVELOPMENT DEAN): Check fasting blood sugar today. Result is 415 no he has had better sugars at home. No hypoglycemic symptoms will increase Jardiance to 25 mg daily as he has had no side effects. Assessment & Plan (09/10/2020 9:58 AM STUDENT DEVELOPMENT DEAN): Needs better control. Medication options discussed. Risk [...] controlled. Assessment & Plan (10/15/2023 11:36 AM STUDENT DEVELOPMENT DEAN): Continue trazodone at same dosage. Well controlled. Assessment & Plan (06/23/2023 2:04 PM CDT): Continue trazodone same dosage. Well controlled. Assessment & Plan (01/15/2023 1:59 PM CDT): Continue trazodone at same dosage. Well controlled. Assessment & Plan (09/11/2022 3:44 PM STUDENT DEVELOPMENT DEAN): Continue trazodone Assessment & Plan (05/02/2022 11:04 AM CDT): Continue trazodone at same dosage. Well controlled. Assessment & Plan (12/13/2021 9:57 AM CDT): Continue trazodone at same dosage. Well controlled. Assessment & Plan (08/30/2021 7:26 AM STUDENT DEVELOPMENT DEAN): Continue trazodone at same dosage. Well controlled. Assessment & Plan (06/11/2021 1:30 PM CDT): Continue trazodone at same dosage. Well controlled. Assessment & Plan (02/08/2021 10:36 AM CDT): Continue trazodone at same dosage. Well controlled. Assessment & Plan (10/08/2020 10:31 AM STUDENT DEVELOPMENT DEAN): Improved. Continue trazodone 100 mg Assessment & Plan (09/10/2020 10:00 AM STUDENT DEVELOPMENT DEAN): Increase trazodone to 100 mg needs better control Assessment & Plan (06/08/2020 10:30 AM CDT): Continue medication at same dosage. Well controlled. Major depression in remission 06/08/2020 Assessment & Plan (08/05/2024 2:13 PM STUDENT DEVELOPMENT DEAN): Continue Lexapro at same dosage. Well controlled. Assessment & Plan (05/01/2024 12:21 PM CDT): Continue Lexapro at same dosage. Well controlled. Assessment & Plan (01/07/2024 4:04 PM CDT): Continue Lexapro at same dosage. Well controlled. Assessment & Plan (10/15/2023 11:35 AM STUDENT DEVELOPMENT DEAN): Continue Lexapro at same dosage. Well controlled. Assessment & Plan (06/23/2023 2:07 PM CDT): Continue Lexapro at same dosage. Well controlled. Assessment & Plan (01/15/2023 2:00 PM CDT): Continue Lexapro at same dosage. Well controlled. Assessment & Plan (09/11/2022 3:44 PM STUDENT DEVELOPMENT DEAN): Continue Lexapro at same dosage. Well controlled. Assessment & Plan (05/02/2022 11:00 AM CDT): Continue Lexapro at same dosage. Well controlled. Assessment & Plan (12/13/2021 9:57 AM CDT): Continue Lexapro at same dosage. Well controlled. Assessment & Plan (08/30/2021 7:26 AM STUDENT DEVELOPMENT DEAN): Continue Lexapro at same dosage. Well controlled. Assessment & Plan (06/11/2021 1:30 PM CDT): Continue Lexapro at same dosage. Well controlled. Assessment & Plan (02/08/2021 10:33 AM CDT): Continue Lexapro at same dosage. Well controlled. Assessment & Plan (11/09/2020 1:42 PM CDT): Continue Lexapro at same dosage. Well controlled. Assessment & Plan (09/09/2020 1:01 PM STUDENT DEVELOPMENT DEAN): Continue medication at same dosage. Well controlled. [...] Department Care Team Description 10/11/2024 8:32 PM STUDENT DEVELOPMENT DEAN - 10/15/2024 1:43 PM STUDENT DEVELOPMENT DEAN Hospital Encounter [place] [address] Med Surg [facility] [place] [address] Blu Terry Jr., MD [place], MD Desmond Clark, MD Nickolas Spivey, Ciaran Kohler MD Abdominal pain (Primary Dx); Nausea and vomiting, unspecified vomiting type; Dehydration Discharge Disposition: Discharge to home or self care 10/10/2024 Orders Only [facility] Information Management [address] [place] [address] Scanning, Provider 09/01/2024 Telephone [facility] Primary Care [address] [place] [phone] Nathan Martinez MD Forms Request 08/27/2024 Orders Only [facility] Information Management [address] [place] [address] Scanning, Provider from Last 3 Months Immunizations [...] drink = 0.6 oz pur e alcohol) [facility] Utilities Answer Date Recorded In the [...] often do you attend chur ch or sikhism services? Never 10/13/2024 Do you belong to any clubs o r organizations such as anabaptism groups, unions, fraternal or athletic groups, or [...] any time in the past 12 m [facility], were you homeless or living in a [place] health care facility (including now)? No 10/13/2024 Personal Safety Answer [...] Comments Blood Pressure 112/83 10/15/2024 12:04 PM STUDENT DEVELOPMENT DEAN Pulse 73 10/15/2024 12:04 PM STUDENT DEVELOPMENT DEAN Temperature 36.3 C (97.3 F) 10/15/2024 12:04 PM STUDENT DEVELOPMENT DEAN Respiratory Rate 16 10/15/2024 12:04 PM STUDENT DEVELOPMENT DEAN Oxygen Saturation 95% 10/15/2024 12:04 PM STUDENT DEVELOPMENT DEAN Inhaled Oxygen Concentration - - Weight 89.1 kg (196 lb 6.9 oz) 10/12/2024 4:45 P M STUDENT DEVELOPMENT DEAN Height 180.3 cm (5' 10.98 ) 10/12/2024 4:[address] Body Mass Index 27.41 10/12/2024 4:45 PM STUDENT DEVELOPMENT DEAN Plan of Treatment Health Maintenance Due Date [...] Diagnosis Comments EGFR Routine 10/12/2024 5:05 AM STUDENT DEVELOPMENT DEAN DIFFERENTIAL AUTO Routine 10/12/2024 5:0 5 AM STUDENT DEVELOPMENT DEAN CBC WITH AUTO DIFFERENTIAL Routine 10/12/2024 5:05 AM STUDENT DEVELOPMENT DEAN COMPREHENSIVE METABOLIC PANEL Routine 10/12/2024 5:05 AM STUDENT DEVELOPMENT DEAN URINALYSIS AND REFLEX TO MICROSCOPIC AND CULTURE STAT 10/11/2024 8:41 [address] ABDOMEN PELVIS W CONTRAST ED 10/11/2024 7:24 PM STUDENT DEVELOPMENT DEAN EGFR STAT 10/11/2024 6:11 PM STUDENT DEVELOPMENT DEAN DIFFERENTIAL AUTO STAT 10/11/2024 6:1 1 PM STUDENT DEVELOPMENT DEAN LACTATE STAT 10/11/2024 6:11 PM STUDENT DEVELOPMENT DEAN LIPASE STAT 10/11/2024 6:11 PM STUDENT DEVELOPMENT DEAN COMPREHENSIVE METABOLIC PANEL STAT 10/11/2024 6:11 PM STUDENT DEVELOPMENT DEAN CBC WITH AUTO DIFFERENTIAL STAT 10/11/2024 6:11 PM STUDENT DEVELOPMENT DEAN SCAN - RADIOLOGY/IMAGING 10/10/2024 SCAN - RADIOLOGY/IMAGING 08/27/2024 POCT HEMOGLOBIN A1C Routine 08/08/2024 1 1:33 AM STUDENT DEVELOPMENT DEAN Type 2 diabetes mellitus with hyperglycemia, without long-term current use of insulin (HCC) COLONOSCOPY Routine 05/09/2024 7:50 AM CDT ALBUMIN CREATININE RATIO, URINE Routine 05/05/2022 9:04 AM CDT Type 2 diabetes mellitus with hyperglycemia, without long-term current use of insulin (HCC) from Last 3 Months or Most Recently Relevant to Health Maintenance Results * eGFR (10/12/2024 5:05 AM STUDENT DEVELOPMENT DEAN) eGFR 89 >=60 mL/min/1. 73 m2 Comment: [...] was last reviewed 2021. Testing performed by: [address] [address] Blood 10/12/2024 5:05 AM STUDENT DEVELOPMENT DEAN 10/12/2024 5:34 AM STUDENT DEVELOPMENT DEAN Baldomero Sung MD LAB BLOOD ORDERABLES Final Result [facility] [address] [facility] Department [place] [address] * Differential, auto (10/12/2024 5:05 AM STUDENT DEVELOPMENT DEAN) Neutrophil abs 2.8 1.5 - 6.5 K/cumm Comment:Testing performed by : [address] [address] Imm gran abs 0.0 0.0 - 0.1 K/cumm [facility] Comment:Testing performed by : [address] [address] Lymphocyte abs 2.4 0.8 - 3.3 K/cumm [facility] Comment:Testing performed by : [address] [address] Monocyte abs 0.5 0.2 - 0.8 K/cumm [facility] Comment:Testing performed by : [address] [address] Eosinophil abs 0.1 0.0 - 0.5 K/cumm [facility] Comment:Testing performed by : [address] [address] Basophil abs 0.0 0.0 - 0.1 K/cumm [facility] Comment:Testing performed by : [address] [address] Neutrophil pct 48.7 % [facility] Comment: Interpretive Data Percent cell count reference ranges are not reported, since discordance with absolute values may lead to misinterpretation of CBC data. Current Interpretive Data was last revised on 2017. Testing performed by: [address] [place]., [address] Imm gran pct 0.2 % [facility] Comment: Interpretive Data Percent cell count reference ranges are not reported, since discordance with absolute values may lead to misinterpretation of CBC data. Current Interpretive Data was last revised on 2017. Testing performed by: [address] [address] Lymphocyte pct 41.0 % [facility] Comment: Interpretive Data Percent cell count reference ranges are not reported, since discordance with absolute values may lead to misinterpretation of CBC data. Current Interpretive Data was last revised on 2017. Testing performed by: [address] [address] Monocyte pct 8.5 % [facility] Comment: Interpretive Data Percent cell count reference ranges are not reported, since discordance with absolute values may lead to misinterpretation of CBC data. Current Interpretive Data was last revised on 2017. Testing performed by: [address] [address] Eosinophil pct 1.4 % [facility] Comment: Interpretive Data Percent cell count reference ranges are not reported, since discordance with absolute values may lead to misinterpretation of CBC data. Current Interpretive Data was last revised on 2017. Testing performed by: [address] [address] Basophil pct 0.2 % [facility] Comment: Interpretive Data Percent cell count reference ranges are not reported, since discordance with absolute values may lead to misinterpretation of CBC data. Current Interpretive Data was last revised on 2017. Testing performed by: [address] [address] Blood 10/12/2024 5:05 AM STUDENT DEVELOPMENT DEAN 10/12/2024 5:34 AM STUDENT DEVELOPMENT DEAN us Baldomero Sung MD LAB BLOOD ORDERABLES Final Result [facility] [address] [facility] Department [place] [address] * (ABNORMAL) CBC with auto differential (10/12/2024 5:05 AM STUDENT DEVELOPMENT DEAN) [facility] Signature WBC 5.8 3.8 - 9.9 K/cumm Comment:Testing performed by : [address], [address] Hgb 13.6 13.0 - 17.5 g/dL [facility] Comment:Testing performed by : [address], [address] Hct 41.9 38.9 - 50.3 % [facility] Comment:Testing performed by : [address], [address] Plt 260 150 - 400 K/cumm [facility] Comment:Testing performed by : [address], [address] MPV 9.2 9.1 - 12.3 fL [facility] Comment:Testing performed by : [address], [address] RBC 5.23 4.30 - 5.80 M/cumm [facility] Comment:Testing performed by : [address], [address] MCV 80.1(L) 81.3 - 96.4 fL [facility] Comment:Testing performed by : [address], [address] MCH 26.0(L) 27.1 - 33.3 pg [facility] Comment:Testing performed by : [address], [address] MCHC 32.5 32.3 - 35.7 g/dL [facility] Comment:Testing performed by : [address], [address] RDW CV 14.0 11.1 - 14.9 % [facility] Comment:Testing performed by : [address], [address] RDW SD 41.0 35.7 - 48.1 fL [facility] Comment:Testing performed by : [address], [address] NRBC abs 0.00 0.00 - 0.01 K/cumm [facility] Comment:Testing performed by : [address] [address] Blood 10/12/2024 5:05 AM STUDENT DEVELOPMENT DEAN 10/12/2024 5:34 AM STUDENT DEVELOPMENT DEAN Baldomero Sung MD LAB BLOOD ORDERABLES Final Result [facility] [address] [facility] Department [place] [address] * Comprehensive metabolic panel (10/12/2024 5:05 AM STUDENT DEVELOPMENT DEAN) Sodium 138 135 - 145 mmol/L Comment:Testing performed by : [address] [address] Potassium, pl 3.7 3.3 - 4.9 mmol/L [facility] Comment:Testing performed by : [address] [address] Chloride 100 97 - 110 mmol/L [facility] Comment:Testing performed by : [address] [address] CO2 30 22 - 32 mmol/L [facility] Comment:Testing performed by : [address] [address] Anion gap 8 2 - 15 mmol/L [facility] Comment:Testing performed by : [address] [address] BUN 7 6 - 25 mg/dL [facility] Comment:Testing performed by : [address] [address] Creatinine 1.00 0.80 - 1.30 mg/dL [facility] Comment:Testing performed by : [address] [address] Glucose 89 70 - 199 mg/dL [facility] [...] was last revised 2022. Testing performed by: [address] [address] Calcium 9.3 8.5 - 10.3 mg/dL [facility] Comment:Testing performed by : [address] [address] Bilirubin, total 0.4 0.1 - 1.2 mg/dL [facility] Comment:Testing performed by : [address] [address] Protein, pl 6.7 6.5 - 8.5 g/dL [facility] Comment:Testing performed by : [address] [address] Albumin 3.9 3.5 - 5.0 g/dL [facility] Comment:Testing performed by : [address] [address] Alk phos 54 40 - 130 Units/L [facility] Comment:Testing performed by : [address] [address] ALT 24 7 - 55 Units/L [facility] Comment:Testing performed by : [address] [address] AST 20 10 - 50 Units/L [facility] Comment:Testing performed by : [address] [address] Blood 10/12/2024 5:05 AM STUDENT DEVELOPMENT DEAN 10/12/2024 5:34 AM STUDENT DEVELOPMENT DEAN us Baldomero Sung MD LAB BLOOD ORDERABLES Final Result [facility] [address] [facility] Department of Laboratories [place], [place] [id number] * (ABNORMAL) Urinalysis reflex to microscopic and culture Urine (10/11/2024 8:41 PM STUDENT DEVELOPMENT DEAN) Color, ur Yellow Yellow Comment:Testing performed by : [address] [address] Clarity, ur Clear Clear [facility] Comment:Testing performed by : [address] [address] Specific gravity, ur >1.050(A) 1.003 - 1.030 [facility] Comment:Testing performed by : [address], [place]., [address] pH, urine 5.5 [facility] Comment: Interpretive Data U rine pH is affected by diet, medications, systemic acid-base disturbances, and renal tubular function. pH may affect urinary stone formation. For example, urine pH below 6.0 may help reduce the tendency for calcium phosphate stones and pH greater than 6.0 may reduce the tendency for uric acid stone formation. Source: [employer] Current Interpretive Data was last revised on 2017 Testing performed by: [address] [address] Protein, ur ql Negative Negative [facility] Comment:Testing performed by : [address] [address] Glucose, ur ql Negative Negative [facility] Comment:Testing performed by : [address] [address] Ketones, ur Negative Negative [facility] Comment:Testing performed by : [address] [address] Bilirubin, ur Negative Negative [facility] Comment:Testing performed by : [address] [address] Blood, ur Negative Negative [facility] Comment:Testing performed by : [address] [address] Urobilinogen, ur <2.0 <2.0 mg/dL [facility] Comment:Testing performed by : [address] [address] Nitrite, ur Negative Negative [facility] Comment:Testing performed by : [address] [address] Leukocyte esterase, ur Negative Negative [facility] Comment:Testing performed by : [address] [address] UA reflex comment Reflex conditions for microscopic UA and culture not met. [facility] Comment:Testing performed by : [facility], [address] [place] [address], [place]., [address] Urine 10/11/2024 8:41 PM STUDENT DEVELOPMENT DEAN 10/11/2024 8:50 PM STUDENT DEVELOPMENT DEAN us Blu Terry Jr., MD LAB MICROBIOLOGY - GENE RAL ORDERABLES Final Result [facility] [address] [facility] Department [place] [address] * CT Abdomen Pelvis W Contrast (10/11/2024 7:24 PM STUDENT DEVELOPMENT DEAN) Anatomical Region Laterality Modality Body N/A Computed Tomogra phy 10/11/2024 8:00 PM STUDENT DEVELOPMENT DEAN Narrative 10/11/2024 8:03 PM STUDENT DEVELOPMENT DEAN EXAM DESCRIPTION: CT ABDOMEN PELVIS W CONTRAST [...] Kurt Love M.D. AR: TORSTEN Report ID: [id number] Reading Location: [id number] Procedure Note Kurt Love MD - 10/11/2024 [...] Kurt Love M.D. AR: TORSTEN Report ID: [id number] Reading Location: [id number] Share[facility] PROCEDURES Final Resu lt * Lactate (10/11/2024 6:11 PM STUDENT DEVELOPMENT DEAN) Lactate 1.5 0.7 - 2.0 mmol/L Comment:Testing performed by : [facility], [address] [place] [address], [place]., [address] Blood 10/11/2024 6:11 PM STUDENT DEVELOPMENT DEAN 10/11/2024 6:16 PM STUDENT DEVELOPMENT DEAN us Blu Terry Jr., MD LAB BLOOD ORDERABLES Fi nal Result [facility] [address] [address] * eGFR (10/11/2024 6:11 PM STUDENT DEVELOPMENT DEAN) eGFR 74 >=60 mL/min/1. 73 m2 Comment: [...] was last reviewed 2021. Testing performed by: [facility], [address] [place] [address]., [address] Blood 10/11/2024 6:11 PM STUDENT DEVELOPMENT DEAN 10/11/2024 6:16 PM STUDENT DEVELOPMENT DEAN us Blu Terry Jr., MD LAB BLOOD ORDERABLES Fi nal Result [facility] [place] [address] * Differential, auto (10/11/2024 6:11 PM STUDENT DEVELOPMENT DEAN) Neutrophil abs 2.2 1.5 - 6.5 K/cumm Comment:Testing performed by : [facility], [address] [place] [address], [place]., [address] Imm gran abs 0.0 0.0 - 0.1 K/cumm [facility] Comment:Testing performed by : [facility], [address] [place] [address], [place]., [address] Lymphocyte abs 1.9 0.8 - 3.3 K/cumm [facility] Comment:Testing performed by : [address], [place]., [address] Monocyte abs 0.4 0.2 - 0.8 K/cumm [facility] Comment:Testing performed by : [address], [place]., [address] Eosinophil abs 0.0 0.0 - 0.5 K/cumm [facility] Comment:Testing performed by : [address], [place]., [address] Basophil abs 0.0 0.0 - 0.1 K/cumm [facility] Comment:Testing performed by : [address] [address] Neutrophil pct 47.9 % [facility] Comment: Interpretive Data Percent cell count reference ranges are not reported, since discordance with absolute values may lead to misinterpretation of CBC data. Current Interpretive Data was last revised on 2017. Testing performed by: [address] [address] Imm gran pct 0.2 % [facility] Comment: Interpretive Data Percent cell count reference ranges are not reported, since discordance with absolute values may lead to misinterpretation of CBC data. Current Interpretive Data was last revised on 2017. Testing performed by: [address] [address] Lymphocyte pct 41.9 % [facility] Comment: Interpretive Data Percent cell count reference ranges are not reported, since discordance with absolute values may lead to misinterpretation of CBC data. Current Interpretive Data was last revised on 2017. Testing performed by: [address] [address] Monocyte pct 8.9 % [facility] Comment: Interpretive Data Percent cell count reference ranges are not reported, since discordance with absolute values may lead to misinterpretation of CBC data. Current Interpretive Data was last revised on 2017. Testing performed by: [address] [address] Eosinophil pct 0.9 % [facility] Comment: Interpretive Data Percent cell count reference ranges are not reported, since discordance with absolute values may lead to misinterpretation of CBC data. Current Interpretive Data was last revised on 2017. Testing performed by: [address] [address] Basophil pct 0.2 % [facility] Comment: Interpretive Data Percent cell count reference ranges are not reported, since discordance with absolute values may lead to misinterpretation of CBC data. Current Interpretive Data was last revised on 2017. Testing performed by: [address] [address] Blood 10/11/2024 6:11 PM STUDENT DEVELOPMENT DEAN 10/11/2024 6:16 PM STUDENT DEVELOPMENT DEAN us Blu Terry Jr., MD LAB BLOOD ORDERABLES Fi nal Result [facility] [address] [facility] Department [place] [address] * (ABNORMAL) CBC with auto differential (10/11/2024 6:11 PM STUDENT DEVELOPMENT DEAN) Pathologist [facility] WBC 4.5 3.8 - 9.9 K/cumm Comment:Testing performed by : [address] [address] Hgb 14.6 13.0 - 17.5 g/dL [facility] Comment:Testing performed by : [address] [address] Hct 43.4 38.9 - 50.3 % [facility] Comment:Testing performed by : [address] [address] Plt 283 150 - 400 K/cumm [facility] Comment:Testing performed by : [address] [address] MPV 9.3 9.1 - 12.3 fL [facility] RAYMUNDO Comment:Testing performed by : [address], [address] RBC 5.45 4.30 - 5.80 M/cumm [facility] RAYMUNDO Comment:Testing performed by : [address] [address] MCV 79.6(L) 81.3 - 96.4 fL [facility] RAYMUNDO Comment:Testing performed by : [address], [address] MCH 26.8(L) 27.1 - 33.3 pg [facility] RAYMUNDO Comment:Testing performed by : [address], [address] MCHC 33.6 32.3 - 35.7 g/dL [facility] RAYMUNDO Comment:Testing performed by : [address], [address] RDW CV 14.1 11.1 - 14.9 % TER[facility] RAYMUNDO Comment:Testing performed by : [address], [address] RDW SD 40.5 35.7 - 48.1 fL [facility] Comment:Testing performed by : [address], [address] NRBC abs 0.00 0.00 - 0.01 K/cumm [facility] RAYMUNDO Comment:Testing performed by : [address], [address] Blood Venous blood specimen / Unknown 10/11/2024 6:11 PM STUDENT DEVELOPMENT DEAN 10/11/2024 6:16 PM STUDENT DEVELOPMENT DEAN us Blu Terry Jr., MD LAB BLOOD ORDERABLES Fi nal Result [facility] [address] [facility] Department [place] [address] * (ABNORMAL) Lipase (10/11/2024 6:11 PM STUDENT DEVELOPMENT DEAN) Lipase 101(H) 10 - 99 Units/L Comment:Testing performed by : [address], [address] Blood Venous blood specimen / Unknown 10/11/2024 6:11 PM STUDENT DEVELOPMENT DEAN 10/11/2024 6:16 PM STUDENT DEVELOPMENT DEAN us Blu Terry Jr., MD LAB BLOOD ORDERABLES Fi nal Result [facility] [address] [facility] Department [place] [address] * Comprehensive metabolic panel (10/11/2024 6:11 PM STUDENT DEVELOPMENT DEAN) Sodium 138 135 - 145 mmol/L Comment:Testing performed by : [address] [address] Potassium, pl 4.1 3.3 - 4.9 mmol/L [facility] Comment:Testing performed by : [address] [address] Chloride 101 97 - 110 mmol/L [facility] Comment:Testing performed by : [address] [address] CO2 28 22 - 32 mmol/L [facility] Comment:Testing performed by : [address] [address] Anion gap 9 2 - 15 mmol/L [facility] Comment:Testing performed by : [address] [address] BUN 10 6 - 25 mg/dL [facility] Comment:Testing performed by : [address] [address] Creatinine 1.16 0.80 - 1.30 mg/dL [facility] Comment:Testing performed by : [address] [address] Glucose 146 70 - 199 mg/dL [facility] [...] was last revised 2022. Testing performed by: [address] [address] Calcium 9.9 8.5 - 10.3 mg/dL [facility] Comment:Testing performed by : [address] [address] Bilirubin, total 0.4 0.1 - 1.2 mg/dL [facility] Comment:Testing performed by : [address] [address] Protein, pl 7.3 6.5 - 8.5 g/dL [facility] Comment:Testing performed by : [address] [address] Albumin 4.3 3.5 - 5.0 g/dL [facility] Comment:Testing performed by : [address] [address] Alk phos 60 40 - 130 Units/L [facility] Comment:Testing performed by : [address] [address] ALT 28 7 - 55 Units/L [facility] Comment:Testing performed by : [address] [address] AST 22 10 - 50 Units/L [facility] Comment:Testing performed by : [address] [address] Blood 10/11/2024 6:11 PM STUDENT DEVELOPMENT DEAN 10/11/2024 6:16 PM STUDENT DEVELOPMENT DEAN Blu Terry Jr., MD LAB BLOOD ORDERABLES Fi nal Result [facility] RAYMUNDO [address] [facility] Department [place] [address] * SCAN - RADIOLOGY/IMAGING (10/10/2024) Anatomical Region Laterality Modality Other Provider Scanning Final Result * SCAN - RADIOLOGY/IMAGING (08/27/2024) Anatomical Region Laterality Modality Other us Provider Scanning Final Result * (ABNORMAL) POCT hemoglobin A1c (08/08/2024 11:33 AM STUDENT DEVELOPMENT DEAN) Hemoglobin A1C, POC 7.0 4.0 - 5.6 % Blood 08/08/2024 11:3 3 AM STUDENT DEVELOPMENT DEAN Nathan Martinez MD POINT OF CARE TEST [...] LAB URINE ORDERABLES Final Result [facility] [address] [place] [id number] from Last 3 Months or Most Recently Relevant to Health Maintenance Insurance [address] CLAIMS Member Subscriber Plan / Payer (Ef fective 2020-Present) Name:Erich Allen Relation to Subscriber:Self Name:Erich Allen Payer ID:[id number] (NAIC) Group ID:Not on file Type: Address: [place] [phone] [address] [place] [id number] [facility] CLAIMS [address] [place] [address] CLAIMS Advance Directives For more information, please contact: [phone] * Full Code (Latest Code Status on File) Date Activated Date Inactivated Comments 10/12/2024 2:05 AM 10/15/2024 5:49 PM Care Teams Jig Builder Relationship Specialty Start Date End Date Nathan Martinez MD PCP - General Family Practice 09/10/20 Monique Garcia MD Referring Physician Gastroenterology 06/11/20 Monique Garcia MD Referring Physician Gastroenterology 06/11/20
--- OUTSIDE RECORDS SUMMARY | 2024-11-10 19:18 | XMS_ITS | Referral Summary ---
Author Organization [facility] Address [address] [place] [address] Care Team Providers Care Director Of Property Management Name Role Phone Monique Garcia MD Unavailable [phone] Monique Garcia MD Unavailable [phone] Nathan Martinez MD Primary Care Provider [phone] Encounters Date Type Department Care Team Description 10/11/2024 8:32 PM SENIOR APPLICATIONS ANALYST - 10/15/2024 1:43 PM SENIOR APPLICATIONS ANALYST Hospital Encounter [place] [address] Med [address] [place] [id number] Blu Terry Jr., MD [place], MD Desmond Clark, MD Nickolas Spivey, Ciaran Kohler MD Abdominal pain (Primary Dx); Nausea and vomiting, unspecified vomiting type; Dehydration Discharge Disposition: Discharge to home or self care 10/10/2024 Orders Only [facility] Information Management [address] [place] [id number] Scanning, Provider 09/01/2024 Telephone [facility] Primary Care [address] [place] [phone] Nathan Martinez MD Forms Request 08/27/2024 Orders Only [facility] Information Management [address] [place] [address] Scanning, Provider from Last 3 Months Allergies [...] mg Assessment & Plan (10/15/2023 11:29 AM SENIOR APPLICATIONS ANALYST): A1c today . Continue glipizide/Trulicity at same [...] 09/12/2022 Assessment & Plan (09/12/2022 9:35 AM SENIOR APPLICATIONS ANALYST): Some tinnitus for 2 months. Possible hearing loss. Ear canals normal today drums normal ENT refer Lipidemia 09/11/2022 Assessment & Plan (08/05/2024 2:15 PM SENIOR APPLICATIONS ANALYST): Continue atorvastatin same dosage. Needs repeat lipid Assessment & Plan (05/01/2024 12:22 PM CDT): Needs repeat lipids. Continue atorvastatin at same dose. Assessment & Plan (01/07/2024 4:08 PM CDT): Continue atorvastatin same dosage but needs repeat lipids. Assessment & Plan (10/15/2023 11:35 AM SENIOR APPLICATIONS ANALYST): Continue atorvastatin at same dosage. Well controlled. Assessment & Plan (06/23/2023 2:03 PM CDT): Continue Lipitor same dosage but needs repeat lipids. Assessment & Plan (01/15/2023 1:58 PM CDT): Continue atorvastatin same dosage but needs repeat lipids Assessment & Plan (09/11/2022 3:45 PM SENIOR APPLICATIONS ANALYST): Continue atorvastatin same dosage Acute left ankle [...] counseling. Assessment & Plan (10/15/2023 12:07 PM SENIOR APPLICATIONS ANALYST): Diabetic foot exam: Left monofilament exam: normal [...] surgeon Assessment & Plan (09/02/2021 8:59 AM SENIOR APPLICATIONS ANALYST): Pain most recently is in the right [...] 09/02/2021 Assessment & Plan (09/02/2021 9:00 AM SENIOR APPLICATIONS ANALYST): Refer to Dermatology Chronic abdominal pain 08/30/2021 Assessment & Plan (05/02/2024 3:02 PM CDT): History of multiple adhesions and several times he has had to had bowel obstruction treated. Constant pain. Worse about 30 minutes after eating. Referral to GI. Left lower quadrant Assessment & Plan (09/16/2021 9:44 AM SENIOR APPLICATIONS ANALYST): Try peppermint oil pill daily. Discontinue Levbid. Refer to GI. Needs colonoscopy. Assessment & Plan (09/02/2021 8:59 AM SENIOR APPLICATIONS ANALYST): Previous pain is similar to this pain [...] 10/08/2020 Assessment & Plan (08/05/2024 2:14 PM SENIOR APPLICATIONS ANALYST): Continue Provigil at same dosage. Well controlled. Return 3 months Assessment & Plan (05/01/2024 12:20 PM CDT): Continue Provigil at same dosage. Well controlled. Return 3 months Assessment & Plan (01/07/2024 4:03 PM CDT): Continue Provigil at same dosage. Well controlled. Assessment & Plan (10/16/2023 1:08 PM SENIOR APPLICATIONS ANALYST): Takes Provigil off-label. Adequate control with medicine. [...] usage. Assessment & Plan (09/13/2021 9:27 AM SENIOR APPLICATIONS ANALYST): Continue modafinil at same dosage. Well controlled. No signs of toxicity and patient understands this is off-label treatment Assessment & Plan (08/30/2021 7:27 AM SENIOR APPLICATIONS ANALYST): Allow modafinil as no evidence of toxicity and evidence of benefit Assessment & Plan (06/11/2021 1:30 PM CDT): Continue Provigil at same dosage. Well controlled. Assessment & Plan (02/08/2021 10:32 AM CDT): Continue modafinil at same dosage. Well controlled. Assessment & Plan (11/09/2020 1:42 PM CDT): Allow modafinil but understands off-label Assessment & Plan (10/08/2020 10:45 AM SENIOR APPLICATIONS ANALYST): Previously diagnosed with this by psychiatrist at [facility]. good response previously to modafinil but I [...] PFTs Assessment & Plan (10/08/2020 10:46 AM SENIOR APPLICATIONS ANALYST): Much improved Assessment & Plan (09/10/2020 10:03 AM SENIOR APPLICATIONS ANALYST): Mainly with exertion and will refer to [...] disease Assessment & Plan (10/08/2020 10:45 AM SENIOR APPLICATIONS ANALYST): Much improved Assessment & Plan (09/10/2020 9:58 AM SENIOR APPLICATIONS ANALYST): Persisting cough and will refer to Pulmonary for Rash 09/10/2020 Assessment & Plan (10/08/2020 10:45 AM SENIOR APPLICATIONS ANALYST): Much improved Assessment & Plan (09/10/2020 10:02 AM SENIOR APPLICATIONS ANALYST): There is a dry Pash of eczematoid type rash on his back that is different than psoriasis he has other areas. We will give him some topical hydrocortisone cream but not to use longer than 2 weeks as risk of atrophy and tolerance. Nasal polyp 09/10/2020 Assessment & Plan (09/10/2020 10:07 AM SENIOR APPLICATIONS ANALYST): ENT referral Anemia 09/09/2020 Assessment & Plan (09/09/2020 1:03 PM SENIOR APPLICATIONS ANALYST): Needs iron studies and methylmalonic acid level. Needs to have colonoscopy done. Type 2 diabetes mellitus wit h hyperglycemia, without long-term current use of insulin 06/08/2020 Assessment & Plan (08/08/2024 11:33 AM SENIOR APPLICATIONS ANALYST): A1c today. Is improved at 7.0. Continue [...] controlled. Assessment & Plan (09/11/2022 3:47 PM SENIOR APPLICATIONS ANALYST): A1C TODAY.BMI Follow-up includes: nutrition counseling and [...] weekly Assessment & Plan (09/16/2021 9:43 AM SENIOR APPLICATIONS ANALYST): A1c today. Diabetes needing better control. No hypoglycemic symptoms. Metformin, Jardiance, and glipizide daily. No significant improvement and will add Trulicity 0.75 mg weekly Assessment & Plan (08/30/2021 7:25 AM SENIOR APPLICATIONS ANALYST): A1c today. Assessment & Plan (06/17/2021 10:38 [...] today. Assessment & Plan (10/08/2020 10:42 AM SENIOR APPLICATIONS ANALYST): Check fasting blood sugar today. Result is 415 no he has had better sugars at home. No hypoglycemic symptoms will increase Jardiance to 25 mg daily as he has had no side effects. Assessment & Plan (09/10/2020 9:58 AM SENIOR APPLICATIONS ANALYST): Needs better control. Medication options discussed. Risk [...] controlled. Assessment & Plan (10/15/2023 11:36 AM SENIOR APPLICATIONS ANALYST): Continue trazodone at same dosage. Well controlled. Assessment & Plan (06/23/2023 2:04 PM CDT): Continue trazodone same dosage. Well controlled. Assessment & Plan (01/15/2023 1:59 PM CDT): Continue trazodone at same dosage. Well controlled. Assessment & Plan (09/11/2022 3:44 PM SENIOR APPLICATIONS ANALYST): Continue trazodone Assessment & Plan (05/02/2022 11:04 AM CDT): Continue trazodone at same dosage. Well controlled. Assessment & Plan (12/13/2021 9:57 AM CDT): Continue trazodone at same dosage. Well controlled. Assessment & Plan (08/30/2021 7:26 AM SENIOR APPLICATIONS ANALYST): Continue trazodone at same dosage. Well controlled. Assessment & Plan (06/11/2021 1:30 PM CDT): Continue trazodone at same dosage. Well controlled. Assessment & Plan (02/08/2021 10:36 AM CDT): Continue trazodone at same dosage. Well controlled. Assessment & Plan (10/08/2020 10:31 AM SENIOR APPLICATIONS ANALYST): Improved. Continue trazodone 100 mg Assessment & Plan (09/10/2020 10:00 AM SENIOR APPLICATIONS ANALYST): Increase trazodone to 100 mg needs better control Assessment & Plan (06/08/2020 10:30 AM CDT): Continue medication at same dosage. Well controlled. Major depression in remission 06/08/2020 Assessment & Plan (08/05/2024 2:13 PM SENIOR APPLICATIONS ANALYST): Continue Lexapro at same dosage. Well controlled. Assessment & Plan (05/01/2024 12:21 PM CDT): Continue Lexapro at same dosage. Well controlled. Assessment & Plan (01/07/2024 4:04 PM CDT): Continue Lexapro at same dosage. Well controlled. Assessment & Plan (10/15/2023 11:35 AM SENIOR APPLICATIONS ANALYST): Continue Lexapro at same dosage. Well controlled. Assessment & Plan (06/23/2023 2:07 PM CDT): Continue Lexapro at same dosage. Well controlled. Assessment & Plan (01/15/2023 2:00 PM CDT): Continue Lexapro at same dosage. Well controlled. Assessment & Plan (09/11/2022 3:44 PM SENIOR APPLICATIONS ANALYST): Continue Lexapro at same dosage. Well controlled. Assessment & Plan (05/02/2022 11:00 AM CDT): Continue Lexapro at same dosage. Well controlled. Assessment & Plan (12/13/2021 9:57 AM CDT): Continue Lexapro at same dosage. Well controlled. Assessment & Plan (08/30/2021 7:26 AM SENIOR APPLICATIONS ANALYST): Continue Lexapro at same dosage. Well controlled. Assessment & Plan (06/11/2021 1:30 PM CDT): Continue Lexapro at same dosage. Well controlled. Assessment & Plan (02/08/2021 10:33 AM CDT): Continue Lexapro at same dosage. Well controlled. Assessment & Plan (11/09/2020 1:42 PM CDT): Continue Lexapro at same dosage. Well controlled. Assessment & Plan (09/09/2020 1:01 PM SENIOR APPLICATIONS ANALYST): Continue medication at same dosage. Well controlled. [...] drink = 0.6 oz pur e alcohol) [facility] Utilities Answer Date Recorded In the past 12 months has e [employer], gas, oil, or water [employer] threatened to shut off services in your [...] often do you attend chur ch or hoahaoism services? Never 10/13/2024 Do you belong to any clubs o r organizations such as quaker groups, unions, fraternal or athletic groups, or [...] time in the past 12 m [facility], were you homeless or living in a alf (including now)? No 10/13/2024 Personal Safety Answer [...] Comments Blood Pressure 112/83 10/15/2024 12:04 PM SENIOR APPLICATIONS ANALYST Pulse 73 10/15/2024 12:04 PM SENIOR APPLICATIONS ANALYST Temperature 36.3 C (97.3 F) 10/15/2024 12:04 PM SENIOR APPLICATIONS ANALYST Respiratory Rate 16 10/15/2024 12:04 PM SENIOR APPLICATIONS ANALYST Oxygen Saturation 95% 10/15/2024 12:04 PM SENIOR APPLICATIONS ANALYST Inhaled Oxygen Concentration - - Weight 89.1 kg (196 lb 6.9 oz) 10/12/2024 4:45 P M SENIOR APPLICATIONS ANALYST Height 180.3 cm (5' 10.98 ) 10/12/2024 4:[address] Body Mass Index 27.41 10/12/2024 4:45 PM SENIOR APPLICATIONS ANALYST Plan of Treatment Not on file Procedures Procedure Name Priority Date/Time Associated Diagnosis Comments EGFR Routine 10/12/2024 5:05 AM SENIOR APPLICATIONS ANALYST DIFFERENTIAL AUTO Routine 10/12/2024 5:0 5 AM SENIOR APPLICATIONS ANALYST CBC WITH AUTO DIFFERENTIAL Routine 10/12/2024 5:05 AM SENIOR APPLICATIONS ANALYST COMPREHENSIVE METABOLIC PANEL Routine 10/12/2024 5:05 AM SENIOR APPLICATIONS ANALYST URINALYSIS AND REFLEX TO MICROSCOPIC AND CULTURE STAT 10/11/2024 8:41 PM [address] A[address]ST CT ABDOMEN PELVIS W CONTRAST ED 10/11/2024 7:24 PM SENIOR APPLICATIONS ANALYST EGFR STAT 10/11/2024 6:11 PM SENIOR APPLICATIONS ANALYST DIFFERENTIAL AUTO STAT 10/11/2024 6:1 1 PM SENIOR APPLICATIONS ANALYST LACTATE STAT 10/11/2024 6:11 PM SENIOR APPLICATIONS ANALYST LIPASE STAT 10/11/2024 6:11 PM SENIOR APPLICATIONS ANALYST COMPREHENSIVE METABOLIC PANEL STAT 10/11/2024 6:11 PM SENIOR APPLICATIONS ANALYST CBC WITH AUTO DIFFERENTIAL STAT 10/11/2024 6:11 PM SENIOR APPLICATIONS ANALYST SCAN - RADIOLOGY/IMAGING 10/10/2024 SCAN - RADIOLOGY/IMAGING 08/27/2024 POCT HEMOGLOBIN A1C Routine 08/08/2024 1 1:33 AM SENIOR APPLICATIONS ANALYST Type 2 diabetes mellitus with hyperglycemia, without long-term current use of insulin (HCC) COLONOSCOPY Routine 05/09/2024 7:50 AM CDT ALBUMIN CREATININE RATIO, URINE Routine 05/05/2022 9:04 AM CDT Type 2 diabetes mellitus with hyperglycemia, without long-term current use of insulin (HCC) from Last 3 Months or Most Recently Relevant to Health Maintenance Results * eGFR (10/12/2024 5:05 AM SENIOR APPLICATIONS ANALYST) eGFR 89 >=60 mL/min/1. 73 m2 Comment: [...] was last reviewed 2021. Testing performed by: [address] [address] Blood 10/12/2024 5:05 AM SENIOR APPLICATIONS ANALYST 10/12/2024 5:34 AM SENIOR APPLICATIONS ANALYST Baldomero Sung MD LAB BLOOD ORDERABLES Final Result [facility] [address] [facility] Department [place] [address] * Differential, auto (10/12/2024 5:05 AM SENIOR APPLICATIONS ANALYST) Neutrophil abs 2.8 1.5 - 6.5 K/cumm Comment:Testing performed by : [address] [address] Imm gran abs 0.0 0.0 - 0.1 K/cumm [facility] Comment:Testing performed by : [address] [address] Lymphocyte abs 2.4 0.8 - 3.3 K/cumm [facility] Comment:Testing performed by : [address] [address] Monocyte abs 0.5 0.2 - 0.8 K/cumm [facility] Comment:Testing performed by : [address] [address] Eosinophil abs 0.1 0.0 - 0.5 K/cumm [facility] Comment:Testing performed by : [address] [address] Basophil abs 0.0 0.0 - 0.1 K/cumm [facility] Comment:Testing performed by : [address] [address] Neutrophil pct 48.7 % [facility] Comment: Interpretive Data Percent cell count reference ranges are not reported, since discordance with absolute values may lead to misinterpretation of CBC data. Current Interpretive Data was last revised on 2017. Testing performed by: [address] [address] Imm gran pct 0.2 % [facility] Comment: Interpretive Data Percent cell count reference ranges are not reported, since discordance with absolute values may lead to misinterpretation of CBC data. Current Interpretive Data was last revised on 2017. Testing performed by: [address] [address] Lymphocyte pct 41.0 % [facility] Comment: Interpretive Data Percent cell count reference ranges are not reported, since discordance with absolute values may lead to misinterpretation of CBC data. Current Interpretive Data was last revised on 2017. Testing performed by: [address] [address] Monocyte pct 8.5 % [facility] Comment: Interpretive Data Percent cell count reference ranges are not reported, since discordance with absolute values may lead to misinterpretation of CBC data. Current Interpretive Data was last revised on 2017. Testing performed by: [address] [address] Eosinophil pct 1.4 % [facility] Comment: Interpretive Data Percent cell count reference ranges are not reported, since discordance with absolute values may lead to misinterpretation of CBC data. Current Interpretive Data was last revised on 2017. Testing performed by: [address] [address] Basophil pct 0.2 % [facility] Comment: Interpretive Data Percent cell count reference ranges are not reported, since discordance with absolute values may lead to misinterpretation of CBC data. Current Interpretive Data was last revised on 2017. Testing performed by: [address] [address] Blood 10/12/2024 5:0 5 AM SENIOR APPLICATIONS ANALYST 10/12/2024 5:34 AM SENIOR APPLICATIONS ANALYST us Baldomero Sung MD LAB BLOOD ORDERABLES Final Result [facility] [address] [facility] Department of Laboratories [place], [place] [id number] * (ABNORMAL) CBC with auto differential (10/12/2024 5:05 AM SENIOR APPLICATIONS ANALYST) [facility] Signature WBC 5.8 3.8 - 9.9 K/cumm Comment:Testing performed by : [address], [address] Hgb 13.6 13.0 - 17.5 g/dL [facility] Comment:Testing performed by : [address] [address] Hct 41.9 38.9 - 50.3 % [facility] Comment:Testing performed by : [address], [address] Plt 260 150 - 400 K/cumm [facility] Comment:Testing performed by : [address], [address] MPV 9.2 9.1 - 12.3 fL [facility] Comment:Testing performed by : [address], [address] RBC 5.23 4.30 - 5.80 M/cumm [facility] Comment:Testing performed by : [address], [address] MCV 80.1(L) 81.3 - 96.4 fL [facility] Comment:Testing performed by : [address], [address] MCH 26.0(L) 27.1 - 33.3 pg [facility] Comment:Testing performed by : [address], [address] MCHC 32.5 32.3 - 35.7 g/dL [facility] Comment:Testing performed by : [address], [address] RDW CV 14.0 11.1 - 14.9 % [facility] Comment:Testing performed by : [address], [address] RDW SD 41.0 35.7 - 48.1 fL [facility] Comment:Testing performed by : [address], [address] NRBC abs 0.00 0.00 - 0.01 K/cumm [facility] Comment:Testing performed by : [address] [address] Blood 10/12/2024 5:05 AM SENIOR APPLICATIONS ANALYST 10/12/2024 5:34 AM SENIOR APPLICATIONS ANALYST Baldomero Sung MD LAB BLOOD ORDERABLES Final Result [facility] [address] [facility] Department [place] [address] * Comprehensive metabolic panel (10/12/2024 5:05 AM SENIOR APPLICATIONS ANALYST) Sodium 138 135 - 145 mmol/L Comment:Testing performed by : [address] [address] Potassium, pl 3.7 3.3 - 4.9 mmol/L [facility] Comment:Testing performed by : [address] [address] Chloride 100 97 - 110 mmol/L [facility] Comment:Testing performed by : [address] [address] CO2 30 22 - 32 mmol/L [facility] Comment:Testing performed by : [address] [address] Anion gap 8 2 - 15 mmol/L [facility] Comment:Testing performed by : [address] [address] BUN 7 6 - 25 mg/dL [facility] Comment:Testing performed by : [address] [address] Creatinine 1.00 0.80 - 1.30 mg/dL [facility] Comment:Testing performed by : [address] [address] Glucose 89 70 - 199 mg/dL [facility] [...] was last revised 2022. Testing performed by: [address] [address] Calcium 9.3 8.5 - 10.3 mg/dL [facility] Comment:Testing performed by : [address] [address] Bilirubin, total 0.4 0.1 - 1.2 mg/dL [facility] Comment:Testing performed by : [address] [address] Protein, pl 6.7 6.5 - 8.5 g/dL [facility] Comment:Testing performed by : [address] [address] Albumin 3.9 3.5 - 5.0 g/dL [facility] Comment:Testing performed by : [address] [address] Alk phos 54 40 - 130 Units/L [facility] Comment:Testing performed by : [address] [address] ALT 24 7 - 55 Units/L [facility] Comment:Testing performed by : [address] [address] AST 20 10 - 50 Units/L [facility] Comment:Testing performed by : [address] [address] Blood 10/12/2024 5:05 AM SENIOR APPLICATIONS ANALYST 10/12/2024 5:34 AM SENIOR APPLICATIONS ANALYST us Baldomero Sung MD LAB BLOOD ORDERABLES Final Result [facility] [address] [facility] Department [place] [address] * (ABNORMAL) Urinalysis reflex to microscopic and culture Urine (10/11/2024 8:41 PM SENIOR APPLICATIONS ANALYST) Color, ur Yellow Yellow Comment:Testing performed by : [address] [address] Clarity, ur Clear Clear [facility] Comment:Testing performed by : [address] [address] Specific gravity, ur >1.050(A) 1.003 - 1.030 [facility] Comment:Testing performed by : [address] [address] pH, urine 5.5 [facility] Comment: Interpretive Data U rine pH is affected by diet, medications, systemic acid-base disturbances, and renal tubular function. pH may affect urinary stone formation. For example, urine pH below 6.0 may help reduce the tendency for calcium phosphate stones and pH greater than 6.0 may reduce the tendency for uric acid stone formation. Source: [facility] Current Interpretive Data was last revised on 2017 Testing performed by: [address] [address] Protein, ur ql Negative Negative [facility] Comment:Testing performed by : [address] [address] Glucose, ur ql Negative Negative [facility] Comment:Testing performed by : [address] [address] Ketones, ur Negative Negative [facility] Comment:Testing performed by : [address] [address] Bilirubin, ur Negative Negative [facility] Comment:Testing performed by : [address] [address] Blood, ur Negative Negative [facility] Comment:Testing performed by : [address] [address] Urobilinogen, ur <2.0 <2.0 mg/dL [facility] Comment:Testing performed by : [address] [address] Nitrite, ur Negative Negative [facility] Comment:Testing performed by : [address] [address] Leukocyte esterase, ur Negative Negative [facility] Comment:Testing performed by : [address] [address] UA reflex comment Reflex conditions for microscopic UA and culture not met. [facility] Comment:Testing performed by : [facility], [address] [facility], [place]., [address] Urine 10/11/2024 8:41 PM SENIOR APPLICATIONS ANALYST 10/11/2024 8:50 PM SENIOR APPLICATIONS ANALYST us Blu Terry Jr., MD LAB MICROBIOLOGY - GENE RAL ORDERABLES Final Result [facility] [address] [facility] Department [place] [address] * CT Abdomen Pelvis W Contrast (10/11/2024 7:24 PM SENIOR APPLICATIONS ANALYST) Anatomical Region Laterality Modality Body N/A Computed Tomogra phy 10/11/2024 8:00 PM SENIOR APPLICATIONS ANALYST Narrative 10/11/2024 8:03 PM SENIOR APPLICATIONS ANALYST EXAM DESCRIPTION: CT ABDOMEN PELVIS W CONTRAST [...] Kurt Love M.D. AR: TORSTEN Report ID: [id number] Reading Location: [id number] Procedure Note Kurt Love MD - 10/11/2024 [...] Kurt Love M.D. AR: TORSTEN Report ID: [id number] Reading Location: [id number] Sharee MONTENEGRO IM CT PROCEDURES Final Resu lt * Lactate (10/11/2024 6:11 PM SENIOR APPLICATIONS ANALYST) Lactate 1.5 0.7 - 2.0 mmol/L Comment:Testing performed by : [facility], [address] [place] [address], [place]., [address] Blood 10/11/2024 6:11 PM SENIOR APPLICATIONS ANALYST 10/11/2024 6:16 PM SENIOR APPLICATIONS ANALYST us Blu Terry Jr., MD LAB BLOOD ORDERABLES Fi nal Result Performing Organization Address [facility] Co de Phone Number [facility] [address] [address] * eGFR (10/11/2024 6:11 PM SENIOR APPLICATIONS ANALYST) eGFR 74 >=60 mL/min/1. 73 m2 Comment: [...] was last reviewed 2021. Testing performed by: [facility], [address] [place] [address]., [address] Blood 10/11/2024 6:11 PM SENIOR APPLICATIONS ANALYST 10/11/2024 6:16 PM SENIOR APPLICATIONS ANALYST us Blu Terry Jr., MD LAB BLOOD ORDERABLES Fi nal Result Performing Organization Address City/[facility]/ZIP Co de Phone Number [facility] [address] [place] [address] * Differential, auto (10/11/2024 6:11 PM SENIOR APPLICATIONS ANALYST) Neutrophil abs 2.2 1.5 - 6.5 K/cumm Comment:Testing performed by : [address], [place]., [address] Imm gran abs 0.0 0.0 - 0.1 K/cumm [facility] Comment:Testing performed by : [facility], [address] [place] [address], [place]., [address] Lymphocyte abs 1.9 0.8 - 3.3 K/cumm [facility] Comment:Testing performed by : [address] [address] Monocyte abs 0.4 0.2 - 0.8 K/cumm [facility] Comment:Testing performed by : [address], [place]., [address] Eosinophil abs 0.0 0.0 - 0.5 K/cumm [facility] Comment:Testing performed by : [address] [address] Basophil abs 0.0 0.0 - 0.1 K/cumm [facility] Comment:Testing performed by : [address] [address] Neutrophil pct 47.9 % [facility] Comment: Interpretive Data Percent cell count reference ranges are not reported, since discordance with absolute values may lead to misinterpretation of CBC data. Current Interpretive Data was last revised on 2017. Testing performed by: [address] [address] Imm gran pct 0.2 % [facility] Comment: Interpretive Data Percent cell count reference ranges are not reported, since discordance with absolute values may lead to misinterpretation of CBC data. Current Interpretive Data was last revised on 2017. Testing performed by: [address] [address] Lymphocyte pct 41.9 % [facility] Comment: Interpretive Data Percent cell count reference ranges are not reported, since discordance with absolute values may lead to misinterpretation of CBC data. Current Interpretive Data was last revised on 2017. Testing performed by: [address] [address] Monocyte pct 8.9 % CERNER Comment: Interpretive Data Percent cell count reference ranges are not reported, since discordance with absolute values may lead to misinterpretation of CBC data. Current Interpretive Data was last revised on 2017. Testing performed by: [address] [address] Eosinophil pct 0.9 % TERESA Comment: Interpretive Data Percent cell count reference ranges are not reported, since discordance with absolute values may lead to misinterpretation of CBC data. Current Interpretive Data was last revised on 2017. Testing performed by: [address] [address] Basophil pct 0.2 % TERESA Comment: Interpretive Data Percent cell count reference ranges are not reported, since discordance with absolute values may lead to misinterpretation of CBC data. Current Interpretive Data was last revised on 2017. Testing performed by: [address] [address] Blood 10/11/2024 6:11 PM SENIOR APPLICATIONS ANALYST 10/11/2024 6:16 PM SENIOR APPLICATIONS ANALYST us Blu Terry Jr., MD LAB BLOOD ORDERABLES Fi nal Result [facility] [address] [facility] Department [place] [address] * (ABNORMAL) CBC with auto differential (10/11/2024 6:11 PM SENIOR APPLICATIONS ANALYST) Pathologist [facility] WBC 4.5 3.8 - 9.9 K/cumm Comment:Testing performed by : [address] [address] Hgb 14.6 13.0 - 17.5 g/dL ETRESA RAYMUNDO Comment:Testing performed by : [address] [address] Hct 43.4 38.9 - 50.3 % TERESA RAYMUNDO Comment:Testing performed by : [address] [address] Plt 283 150 - 400 K/cumm TERESA Comment:Testing performed by : [address] [address] MPV 9.3 9.1 - 12.3 fL TERESA RAYMUNDO Comment:Testing performed by : [address] [address] RBC 5.45 4.30 - 5.80 M/cumm TERESA RAYMUNDO Comment:Testing performed by : [address] [address] MCV 79.6(L) 81.3 - 96.4 fL TERESA RAYMUNDO Comment:Testing performed by : [address] [address] MCH 26.8(L) 27.1 - 33.3 pg TERESA RAYMUNDO Comment:Testing performed by : [address] [address] MCHC 33.6 32.3 - 35.7 g/dL TERESA RAYMUNDO Comment:Testing performed by : [address] [address] RDW CV 14.1 11.1 - 14.9 % TERESA Comment:Testing performed by : [address], [address] RDW SD 40.5 35.7 - 48.1 fL TERESA Comment:Testing performed by : [address] [address] NRBC abs 0.00 0.00 - 0.01 K/cumm TERESA Comment:Testing performed by : [address] [address] Blood Venous blood specimen / Unknown 10/11/2024 6:11 PM SENIOR APPLICATIONS ANALYST 10/11/2024 6:16 PM SENIOR APPLICATIONS ANALYST us Blu Terry Jr., MD LAB BLOOD ORDERABLES Fi nal Result TERESA [address] [facility] Department [place] [address] * (ABNORMAL) Lipase (10/11/2024 6:11 PM SENIOR APPLICATIONS ANALYST) Lipase 101(H) 10 - 99 Units/L Comment:Testing performed by : [address] [address] Blood Venous blood specimen / Unknown 10/11/2024 6:11 PM SENIOR APPLICATIONS ANALYST 10/11/2024 6:16 PM SENIOR APPLICATIONS ANALYST us Blu Terry Jr., MD LAB BLOOD ORDERABLES Fi nal Result [facility] [address] [facility] Department [place] [address] * Comprehensive metabolic panel (10/11/2024 6:11 PM SENIOR APPLICATIONS ANALYST) Sodium 138 135 - 145 mmol/L Comment:Testing performed by : [address] [address] Potassium, pl 4.1 3.3 - 4.9 mmol/L TERESA Comment:Testing performed by : [address] [address] Chloride 101 97 - 110 mmol/L TERESA Comment:Testing performed by : [address] [address] CO2 28 22 - 32 mmol/L TERESA Comment:Testing performed by : [address] [address] Anion gap 9 2 - 15 mmol/L TERESA Comment:Testing performed by : [address] [address] BUN 10 6 - 25 mg/dL TERESA Comment:Testing performed by : [address] [address] Creatinine 1.16 0.80 - 1.30 mg/dL TERESA Comment:Testing performed by : [address] [address] Glucose 146 70 - 199 mg/dL TERESA [...] was last revised 2022. Testing performed by: [address] [address] Calcium 9.9 8.5 - 10.3 mg/dL TERESA Comment:Testing performed by : [address] [address] Bilirubin, total 0.4 0.1 - 1.2 mg/dL TERESA Comment:Testing performed by : [address] [address] Protein, pl 7.3 6.5 - 8.5 g/dL TERESA Comment:Testing performed by : [address], [place]., [address] Albumin 4.3 3.5 - 5.0 g/dL TERESA Comment:Testing performed by : [address] [address] Alk phos 60 40 - 130 Units/L TERESA Comment:Testing performed by : [address] [address] ALT 28 7 - 55 Units/L [facility] Comment:Testing performed by : [address] [address] AST 22 10 - 50 Units/L TERESA Comment:Testing performed by : [address] [address] Blood 10/11/2024 6:11 PM SENIOR APPLICATIONS ANALYST 10/11/2024 6:16 PM SENIOR APPLICATIONS ANALYST Blu Terry Jr., MD LAB BLOOD ORDERABLES Fi nal Result TERESA RAYMUNDO [address] [facility] Department [place] [address] * SCAN - RADIOLOGY/IMAGING (10/10/2024) Anatomical Region Laterality Modality Other Provider Scanning Final Result * SCAN - RADIOLOGY/IMAGING (08/27/2024) Anatomical Region Laterality Modality Other us Provider Scanning Final Result * (ABNORMAL) POCT hemoglobin A1c (08/08/2024 11:33 AM SENIOR APPLICATIONS ANALYST) Hemoglobin A1C, POC 7.0 4.0 - 5.6 % Blood 08/08/2024 11:3 3 AM SENIOR APPLICATIONS ANALYST Nathan Martinez MD POINT OF CARE TEST [...] MD LAB URINE ORDERABLES Final Result [facility] [address] [place] [id number] from Last 3 Months or Most Recently Relevant to Health Maintenance Insurance [address] CLAIMS [address] [place] [id number] [facility] CLAIMS Member Subscriber Plan / Payer ( fective 2020-Present) Name:Erich Allen Relation to Subscriber:Self Name:Erich Allen Payer ID:[id number] (NAIC) Group ID:[id number] Type: Address: [place] [id number] CLAIMS Advance Directives For more information, please contact: [phone] * Full Code (Latest Code Status on File) Date Activated Date Inactivated Comments 10/12/2024 2:05 AM 10/15/2024 5:49 PM Care Teams Director Of Property Management Relationship Specialty Start Date End Date Nathan Martinez MD PCP - General Family Practice 09/10/20 Monique Garcia MD Referring Physician Gastroenterology 06/11/20 Monique Garcia MD Referring Physician Gastroenterology 06/11/20
--- OUTSIDE RECORDS SUMMARY | 2024-11-10 19:18 | XMS_ITS ---
Author Name Interface, [id number] lity Address [address] [place] [address] [facility], [facility] Address [address] [place] [address] Care Team Providers Care Channel Business Manager Name Role Phone Mata Ledezma Unavailable Unavailable [...]
--- OUTSIDE RECORDS SUMMARY | 2024-11-10 19:18 | XMS_ITS | CCD ---
Author Name Interface, [id number] [facility] Address [address] [place] [address] [facility] LAN lui Address [address] [place] [address] Care Team Providers Care Applications Architect Name Role Phone Mata Ledezma Unavailable Unavailable Reason for Visit Encounters Medications Problems Social History
--- OUTSIDE RECORDS SUMMARY | 2024-11-10 19:18 | XMS_ITS ---
Author Name Interface, [id number] lity Address [address] [place] [address] [facility], [facility] Address [address] [place] [address] Care Team Providers Care Care Technician Name Role Phone Mata Ledezma Unavailable [...]
[2024-11-10 19:19] VITALS: BP 122/93; PULSE 89; RESP 16; TEMP 36.9; O2SAT 98
[2024-11-10] MEDS: ONDANSETRON INJ 4 MG/2 ML VIAL IV PUSH (19:23)
[2024-11-10 19:31] LABS: Basophils Percent Auto 0.4 % (0.2-1.2); Eosinophils Absolute Auto 0.1 K/mm3 (0-0.3); Eosinophils Percent Auto 0.8 % (0-4.4); Hematocrit 45.9 % (42.0-52.0); Hemoglobin 15.2 g/dL (14.0-18.0); Immature Granulocyte Absolute 0.01 K/mm3 (0.00-0.031); Immature Granulocyte Percent A 0.1 % (0-0.5); Lymphocytes Percent Auto 28.3 % (18.3-44.2); Mean Corpuscular HGB Conc 33.1 g/dl (32-36); Mean Corpuscular Hemoglobin 26.8 pg (26-34); Mean Platelet Volume 8.8 fl (7.4-10.4); Monocytes Absolute Auto 0.5 K/mm3 (0.1-0.6); Neutrophils Percent Auto 64.4 % (45.5-73.1); Platelet Count Result 263 k/mm3 (150-375); Red Blood Count 5.67 M/mm3 (4.6-6.20); Red Cell Distribution Width 14.3 % (11.5-14.5); White Blood Count 7.8 K/mm3 (4.5-10.0)
[2024-11-10 19:42] LABS: Alanine Aminotransferase 46 U/L (6-50); Albumin Level 4.8 g/dL (3.5-5.1); Alkaline Phosphatase 66 U/L (38-126); Anion Gap 11 mmol/L (4-12); Aspartate Amino Transferase 31 U/L (17-59); Bilirubin,Total 0.5 mg/dL (0.2-1.3); Blood Urea Nitrogen 15 mg/dL (9-20); Calcium 9.3 mg/dL (8.4-10.2); Carbon Dioxide 25 mmol/L (22-30); Chloride 101 mmol/L (98-107); Estimated CRCL calculation 66 ml/min; Estimated Glomerular Filt Rate > 60; Glucose 132 mg/dL (65-110); Lipase 154 U/L (23-300); Potassium 4.2 mmol/L (3.4-5.0); Sodium 137 mmol/L (137-145)
[2024-11-10 19:43] LABS: Lactic Acid Reflex 1.1 mmol/L (0.7-2.0)
[2024-11-10] MEDS: MORPHINE SULFATE (*CRX) 4 MG/ML INJ IV PUSH ×2 (19:58→20:44)
[2024-11-10] MEDS: SODIUM CHLORIDE 0.9% IV 1,000 ML 999 ML IV CONT (19:59)
[2024-11-10 20:52] LABS: Add Urine Microscopic? NO; Appearance Urine Clear (Clear); Bilirubin Urine Negative (Negative); Blood Urine Negative (Negative); Color Urine Yellow (Yellow); Glucose Urine UA Negative (Negative); Ketones Urine Negative (Negative); Leukocyte Esterase Ur Negative LEU/UL (Negative); Nitrate Urine Negative (Negative); Protein Urine Negative (Negative); Urobilinogen Urine 0.2 mg/dL (<2.0); pH Urine 5.5 (5.0-9.0)
[2024-11-10 21:12] VITALS: BP 136/82; PULSE 77; RESP 16; TEMP 36.7; O2SAT 96
[2024-11-10] MEDS: HYDROcodone/acetaminophen (*CRX) 5-325 MG TABLET 1 TAB PO (23:27)
[2024-11-10 23:30] VITALS: BP 122/77; PULSE 77; RESP 18; TEMP 36.9; O2SAT 99
== END 2024-11-10 23:31 | disposition home or self-care (01) ==
PROVIDERS: Physician Assistant; Emergency Provider Registered Nurse; PCP Family Medicine
DX: R10.32 Left lower quadrant pain (principal); E11.9 Type 2 diabetes mellitus without complications; F43.10 Post-traumatic stress disorder, unspecified; F32.A Depression, unspecified; Z90.49 Acquired absence of other specified parts of digestive tract; Z79.85 Long-term (current) use of injectable non-insulin antidiabetic drugs; Z79.899 Other long term (current) drug therapy
CPT/HCPCS: 36415; 74177; 80053; 81003; 83605; 83690; 85025; 96361; 96374; 96375; 96376; 99284; A9270; J2270; J2405; J7030; Q9967

== ENCOUNTER 2025-03-08 00:35 | Emergency (ER) | payer OTHER, SELFPAY ==
--- NOTE | ~2025-03-08 | CT_ITS ---
CT of the Abdomen and Pelvis: Indication: Abdominal pain Technique: 2.5 mm axial scans were obtained through the abdomen and pelvis following intravenous adm inistration of 100 cc of Omnipaque 350. Dose reduction technique was used on this scan by utilizing a utomated exposure control and iterative reconstruction technique. The dose-length product (DLP) was 7 44.50 mGy-cm. COMPARISON: 11/10/2024 Findings: Scans through the lung bases are unremarkable. Mild diffuse hepatic steatosis noted. The spleen, pancreas, adrenals and kidneys are within normal li mits. Cholecystectomy clips are present. No evidence of aortic aneurysm. No lymphadenopathy. No bowel obstruction or bowel wall thickening. Sigmoid colonic anastomosis noted. Images through the pelvis were performed. Urinary bladder unremarkable. No pelvic mass seen. No ascit es. Impression: No acute abnormalities seen. Mild diffuse hepatic steatosis. Postoperative changes, as above. Reviewed, dictated and finalized at [facility]. Impression: No acute abnormalities seen. Mild diffuse hepatic steatosis. Postoperative changes, as above.
[2025-03-08 00:36] VITALS: BP 136/83; PULSE 97; RESP 18; TEMP 36.7; O2SAT 97
--- OUTSIDE RECORDS SUMMARY | 2025-03-08 00:37 | XMS_ITS | CCD ---
Author Name Interface, [id number] lity Address [address] [place] [address] [facility], LAN Address [address] [place] [address] Care Team Providers Care Casing Crew Name Role Phone Darien GUNN, Mata James le Allergies and Adverse Reactions Medication/Group Name Reaction Severity Date gabapentin 06/27/2019 Toradol 06/27/2019 Reason for Visit New Male Medications Date Name Route Dose Frequency Instructions [...] refills active Problems Diagnosis Status Date of Diagnosis Resolution Date Sleep apnea Active Diabetes mellitus type II Active Depression Active GERD Active Stomach ulcer Active Anxiety Active Testicular pain Active Social History Date Name Value Sex Male
--- OUTSIDE RECORDS SUMMARY | 2025-03-08 00:37 | XMS_ITS | Clinical Summary ---
Author Organization [facility] Address [address] [place] [address] Care Team Providers Care Dosimetrist Name Role Phone Monique Garcia MD Unavailable [phone] Monique Garcia MD Unavailable [phone] Nathan Martinez MD Primary Care Provider [phone] Allergies Active Allergy Reactions Criticality Noted Date Comments Gabapentin Anxiety Low 05/13/2020 Promethazine Anxiety Low 05/13/2020 Ketorolac Hives Medium 05/13/2020 Medications triamcinolone (KENALOG) 0.1 % cream Apply to affected area 1-2 times daily as needed. Avoid face and groin. 90 g 1 05/05/20 22 Active atorvastatin (LIPITOR) 10 mg tablet Take 1 tablet (10 mg total) by mouth daily 90 tablet 1 05/02/20 24 Active glipiZIDE (GLUCOTROL) 10 mg tabletIndicati ons:type 2 diabetes mellitus Take 1 tablet (10 mg total) by mouth daily 90 tablet 1 05/02/20 24 Active hyoscyamine ER (LEVBID) 0.375 mg 12 hr tabletIndicati ons:diarrhea Take 1 tablet (0.375 mg total) by mouth every 12 (twelve) hours as needed for cramping 180 tablet 1 05/02/20 24 Active linaCLOtide (LINZESS) 290 mcg capsule Take 1 capsule (290 mcg total) by mouth daily 90 capsule 05/02/[address] (PROTONIX) 40 mg EC tabletIndicati ons:Treatment of Non-Bleeding Gastric Disorder Take 1 tablet (40 mg total) by mouth daily 30 tablet 11 10/16/19 25 026 Active traZODone (DESYREL) 100 mg tablet Take 1 tablet by mouth every night 90 tablet 1 11/15/19 25 Active escitalopram (LEXAPRO) 20 mg tablet Take 1 tablet (20 mg total) by mouth daily 90 tablet 1 11/15/19 25 Active modafiniL (PROVIGIL) 100 mg tablet Take 1 tablet (100 mg total) by mouth daily 90 tablet 11/15/[address] (VOLTAREN) 75 mg EC tablet Take 1 tablet (75 mg total) by mouth 2 (two) times a day 60 tablet 11 01/21/20 25 026 Active HYDROcodone-ac etaminophen (NORCO) 10-325 mg per tabletIndicati ons:Pain Take 1 tablet by mouth every 6 (six) hours as needed for pain 120 tablet 02/21/20 25 Active semaglutide (OZEMPIC) 0.25 mg or 0.5 mg (2 mg/3 mL) pen injector injection Inject 0.5 mg under the skin every 7 days 3 mL 11 02/21/20 25 Active empagliflozin (JARDIANCE) 10 mg tablet Take 1 tablet (10 mg total) by mouth daily 90 tablet 3 02/21/20 25 Active semaglutide (OZEMPIC) 1 mg/dose (4 mg/3 mL) pen injector injection Inject 1 mg under the skin every 7 days 9 mL 1 01/21/20 25 025 Discontinued HYDROcodone-ac etaminophen (NORCO) 10-325 mg per tabletIndicati ons:Pain Take 1 tablet by mouth every 6 (six) hours as needed for pain 120 tablet 01/21/20 25 025 Discontinued(Re order) Active Problems Problem Noted Date Diagnosed Date Alcohol abuse 02/20/2025 Assessment & Plan (02/20/2025 11:01 AM CDT): Discussed potential additive toxicity between hydrocodone and alcohol. And can not continue to drink significant alcohol with this medicine. If he continues to do so we can not continue to prescribe the hydrocodone for pain. Lumbar radiculopathy 11/14/2024 Assessment & Plan (02/20/2025 11:10 AM CDT): Cuts pain by more than 60%. Allows for increased mobility. No side effects including no falls or accidents in drowsiness or confusion. Assessment & Plan (01/20/2025 11:23 AM CDT): Pain is some better with current dose of hydrocodone but not adequate relief to function. Current dose of hydrocodone brings pain down from 8 to a level of 5. We will increase hydrocodone to 10 mg and we will add Voltaren 75 mg b.i.d.. PT referral He is tolerating naproxen previously without any side effects including no hives. Discussed gabapentin but he is allergic to gabapentin Needs urine drug screen. Improved with higher dose of hydrocodone. Patient is advised that opiates should only be used as needed. They can be habit-forming and may impair judgment even if drowsiness not noticed. Nothing dangerous should be done while taking these medicines such as driving. Discussed other alternatives for pain including NSAIDs, anticholinergic medication , anti seizure medication, behavioral management, physical therapy, physical modalities, and Tylenol. Assessment & Plan (12/19/2024 11:23 AM CDT): Pain continues to worsen. No bowel or bladder symptoms. No weakness. X-rays done today with results pending. Slight relief with Freeland 5 mg. We will increase dosage to 7.5 mg and re-evaluate 1 month Assessment & Plan (11/14/2024 11:49 AM CDT): Advised against taking excessive Alleve. Risk of hypertension, kidney problems, and peptic ulceration. Should not take more than 4 day tramadol previously does not work for pain. We will give him some hydrocodone but stress this is more for short term. Abdominal pain 10/12/2024 Adhesion of omentum 01/08/2024 [...] use of insulin 05/21/2023 Assessment & Plan (11/14/2024 11:54 AM CDT): A1c is slightly higher but he has been off the Ozempic due to cost considerations. He should be able to restart the Ozempic next month. He will be able to get an under but co-pay of 75 dollars Assessment & Plan (05/02/2024 3:03 PM CDT): A1c today. Continue glipizide/Ozempic at same dosage. A1c is higher. Increase Ozempic to 1 mg Assessment & Plan (10/15/2023 11:29 AM HARVESTER OPERATOR): A1c today . Continue glipizide/Trulicity at same [...] 09/12/2022 Assessment & Plan (09/12/2022 9:35 AM HARVESTER OPERATOR): Some tinnitus for 2 months. Possible hearing loss. Ear canals normal today drums normal ENT refer Lipidemia 09/11/2022 Assessment & Plan (02/20/2025 11:05 AM CDT): Continue atorvastatin at same dosage. Well controlled. Needs repeat lipids Assessment & Plan (11/11/2024 2:33 PM CDT): Continue atorvastatin but needs repeat lipids Assessment & Plan (08/05/2024 2:15 PM HARVESTER OPERATOR): Continue atorvastatin same dosage. Needs repeat lipid Assessment & Plan (05/01/2024 12:22 PM CDT): Needs repeat lipids. Continue atorvastatin at same dose. Assessment & Plan (01/07/2024 4:08 PM CDT): Continue atorvastatin same dosage but needs repeat lipids. Assessment & Plan (10/15/2023 11:35 AM HARVESTER OPERATOR): Continue atorvastatin at same dosage. Well controlled. Assessment & Plan (06/23/2023 2:03 PM CDT): Continue Lipitor same dosage but needs repeat lipids. Assessment & Plan (01/15/2023 1:58 PM CDT): Continue atorvastatin same dosage but needs repeat lipids Assessment & Plan (09/11/2022 3:45 PM HARVESTER OPERATOR): Continue atorvastatin same dosage Acute left ankle [...] counseling. Assessment & Plan (10/15/2023 12:07 PM HARVESTER OPERATOR): Diabetic foot exam: Left monofilament exam: normal [...] surgeon Assessment & Plan (09/02/2021 8:59 AM HARVESTER OPERATOR): Pain most recently is in the right [...] 09/02/2021 Assessment & Plan (09/02/2021 9:00 AM HARVESTER OPERATOR): Refer to Dermatology Chronic abdominal pain 08/30/2021 Assessment & Plan (05/02/2024 3:02 PM CDT): History of multiple adhesions and several times he has had to had bowel obstruction treated. Constant pain. Worse about 30 minutes after eating. Referral to GI. Left lower quadrant Assessment & Plan (09/16/2021 9:44 AM HARVESTER OPERATOR): Try peppermint oil pill daily. Discontinue Levbid. Refer to GI. Needs colonoscopy. Assessment & Plan (09/02/2021 8:59 AM HARVESTER OPERATOR): Previous pain is similar to this pain [...] (attention deficit disorder) 10/08/2020 Assessment & Plan (01/19/2025 11:11 AM CDT): Continue modafinil at same dosage. Well controlled. Assessment & Plan (12/19/2024 11:20 AM CDT): Continue modafinil at same dosage. Well controlled. Assessment & Plan (11/11/2024 2:30 PM CDT): Continue Provigil at same dosage. Well controlled. Assessment & Plan (08/05/2024 2:14 PM HARVESTER OPERATOR): Continue Provigil at same dosage. Well controlled. Return 3 months Assessment & Plan (05/01/2024 12:20 PM CDT): Continue Provigil at same dosage. Well controlled. Return 3 months Assessment & Plan (01/07/2024 4:03 PM CDT): Continue Provigil at same dosage. Well controlled. Assessment & Plan (10/16/2023 1:08 PM HARVESTER OPERATOR): Takes Provigil off-label. Adequate control with medicine. [...] usage. Assessment & Plan (09/13/2021 9:27 AM HARVESTER OPERATOR): Continue modafinil at same dosage. Well controlled. No signs of toxicity and patient understands this is off-label treatment Assessment & Plan (08/30/2021 7:27 AM HARVESTER OPERATOR): Allow modafinil as no evidence of toxicity and evidence of benefit Assessment & Plan (06/11/2021 1:30 PM CDT): Continue Provigil at same dosage. Well controlled. Assessment & Plan (02/08/2021 10:32 AM CDT): Continue modafinil at same dosage. Well controlled. Assessment & Plan (11/09/2020 1:42 PM CDT): Allow modafinil but understands off-label Assessment & Plan (10/08/2020 10:45 AM HARVESTER OPERATOR): Previously diagnosed with this by psychiatrist at [...] PFTs Assessment & Plan (10/08/2020 10:46 AM HARVESTER OPERATOR): Much improved Assessment & Plan (09/10/2020 10:03 AM HARVESTER OPERATOR): Mainly with exertion and will refer to [...] disease Assessment & Plan (10/08/2020 10:45 AM HARVESTER OPERATOR): Much improved Assessment & Plan (09/10/2020 9:58 AM HARVESTER OPERATOR): Persisting cough and will refer to Pulmonary for Rash 09/10/2020 Assessment & Plan (10/08/2020 10:45 AM HARVESTER OPERATOR): Much improved Assessment & Plan (09/10/2020 10:02 AM HARVESTER OPERATOR): There is a dry Pash of eczematoid type rash on his back that is different than psoriasis he has other areas. We will give him some topical hydrocortisone cream but not to use longer than 2 weeks as risk of atrophy and tolerance. Nasal polyp 09/10/2020 Assessment & Plan (09/10/2020 10:07 AM HARVESTER OPERATOR): ENT referral Anemia 09/09/2020 Assessment & Plan (09/09/2020 1:03 PM HARVESTER OPERATOR): Needs iron studies and methylmalonic acid level. Needs to have colonoscopy done. Type 2 diabetes mellitus wit h hyperglycemia, without long-term current use of insulin 06/08/2020 Assessment & Plan (02/20/2025 11:14 AM CDT): GI upset from Ozempic 1 mg we will decrease dosage to 0.5 mg daily. Add back Jardiance 10 mg. Continue glipizide 10 mg Assessment & Plan (01/19/2025 11:10 AM CDT): Continue glipizide and Ozempic at same dosage but needs to return in 1 month for A1c. Assessment & Plan (12/16/2024 1:07 PM CDT): Continue Ozempic and metformin at same dosage. A1c in few months. Assessment & Plan (08/08/2024 11:33 AM HARVESTER OPERATOR): A1c today. Is improved at 7.0. Continue [...] controlled. Assessment & Plan (09/11/2022 3:47 PM HARVESTER OPERATOR): A1C TODAY.BMI Follow-up includes: nutrition counseling and [...] weekly Assessment & Plan (09/16/2021 9:43 AM HARVESTER OPERATOR): A1c today. Diabetes needing better control. No hypoglycemic symptoms. Metformin, Jardiance, and glipizide daily. No significant improvement and will add Trulicity 0.75 mg weekly Assessment & Plan (08/30/2021 7:25 AM HARVESTER OPERATOR): A1c today. Assessment & Plan (06/17/2021 10:38 [...] today. Assessment & Plan (10/08/2020 10:42 AM HARVESTER OPERATOR): Check fasting blood sugar today. Result is 415 no he has had better sugars at home. No hypoglycemic symptoms will increase Jardiance to 25 mg daily as he has had no side effects. Assessment & Plan (09/10/2020 9:58 AM HARVESTER OPERATOR): Needs better control. Medication options discussed. Risk and benefits of each option. Will add Jardiance 10 mg and re-evaluate 3 months Assessment & Plan (06/08/2020 10:30 AM CDT): A1c today. Psychophysiologic insomnia 06/08/2020 Assessment & Plan (01/19/2025 11:11 AM CDT): Continue trazodone at same dosage. Well controlled. Assessment & Plan (05/01/2024 12:22 PM CDT): Continue trazodone at same dosage. Well controlled. Assessment & Plan (01/07/2024 4:02 PM CDT): Continue trazodone at same dosage. Well controlled. Assessment & Plan (10/15/2023 11:36 AM HARVESTER OPERATOR): Continue trazodone at same dosage. Well controlled. Assessment & Plan (06/23/2023 2:04 PM CDT): Continue trazodone same dosage. Well controlled. Assessment & Plan (01/15/2023 1:59 PM CDT): Continue trazodone at same dosage. Well controlled. Assessment & Plan (09/11/2022 3:44 PM HARVESTER OPERATOR): Continue trazodone Assessment & Plan (05/02/2022 11:04 AM CDT): Continue trazodone at same dosage. Well controlled. Assessment & Plan (12/13/2021 9:57 AM CDT): Continue trazodone at same dosage. Well controlled. Assessment & Plan (08/30/2021 7:26 AM HARVESTER OPERATOR): Continue trazodone at same dosage. Well controlled. Assessment & Plan (06/11/2021 1:30 PM CDT): Continue trazodone at same dosage. Well controlled. Assessment & Plan (02/08/2021 10:36 AM CDT): Continue trazodone at same dosage. Well controlled. Assessment & Plan (10/08/2020 10:31 AM HARVESTER OPERATOR): Improved. Continue trazodone 100 mg Assessment & Plan (09/10/2020 10:00 AM HARVESTER OPERATOR): Increase trazodone to 100 mg needs better control Assessment & Plan (06/08/2020 10:30 AM CDT): Continue medication at same dosage. Well controlled. Major depression in remission 06/08/2020 Assessment & Plan (01/19/2025 11:11 AM CDT): Continue Lexapro at same dosage. Well controlled. Assessment & Plan (12/16/2024 1:04 PM CDT): Continue Lexapro at same dosage. Well controlled. Assessment & Plan (11/11/2024 2:31 PM CDT): Continue medication at same dosage. Well controlled. Assessment & Plan (08/05/2024 2:13 PM HARVESTER OPERATOR): Continue Lexapro at same dosage. Well controlled. Assessment & Plan (05/01/2024 12:21 PM CDT): Continue Lexapro at same dosage. Well controlled. Assessment & Plan (01/07/2024 4:04 PM CDT): Continue Lexapro at same dosage. Well controlled. Assessment & Plan (10/15/2023 11:35 AM HARVESTER OPERATOR): Continue Lexapro at same dosage. Well controlled. Assessment & Plan (06/23/2023 2:07 PM CDT): Continue Lexapro at same dosage. Well controlled. Assessment & Plan (01/15/2023 2:00 PM CDT): Continue Lexapro at same dosage. Well controlled. Assessment & Plan (09/11/2022 3:44 PM HARVESTER OPERATOR): Continue Lexapro at same dosage. Well controlled. Assessment & Plan (05/02/2022 11:00 AM CDT): Continue Lexapro at same dosage. Well controlled. Assessment & Plan (12/13/2021 9:57 AM CDT): Continue Lexapro at same dosage. Well controlled. Assessment & Plan (08/30/2021 7:26 AM HARVESTER OPERATOR): Continue Lexapro at same dosage. Well controlled. Assessment & Plan (06/11/2021 1:30 PM CDT): Continue Lexapro at same dosage. Well controlled. Assessment & Plan (02/08/2021 10:33 AM CDT): Continue Lexapro at same dosage. Well controlled. Assessment & Plan (11/09/2020 1:42 PM CDT): Continue Lexapro at same dosage. Well controlled. Assessment & Plan (09/09/2020 1:01 PM HARVESTER OPERATOR): Continue medication at same dosage. Well controlled. [...] Encounters Date Type Department Care Team Description 02/21/2025 Results Follow-Up [facility] [address] [place] [address] Nathan Martinez MD Cholesterol, LDL, direct 02/20/2025 10:45 AM CDT Office Visit [facility] [address] [place] [address] Nathan Martinez MD Lumbar radiculopathy (Primary Dx); Mixed hyperlipidemia; Screening PSA (prostate specific antigen); Alcohol abuse; Type 2 diabetes mellitus with hyperglycemia, without long-term current use of insulin (HCC) 01/25/2025 Results Follow-Up [facility] [address] [place] [address] Nathan Martinez MD Albumin Creatinine Ratio, Urine 01/20/2025 11:00 AM CDT Office Visit [facility] [address] [place] [address] Nathan Martinez MD Lumbar radiculopathy (Primary Dx); Type 2 diabetes mellitus with hyperglycemia, without long-term current use of insulin (HCC); Major depression in remission; Attention deficit hyperactivity disorder (ADHD), predominantly inattentive type; Psychophysiologic insomnia; High risk medication use; Encounter for drug screening 12/19/2024 11:15 AM CDT Office Visit [facility] Primary [facility] [address] [place] [address] Nathan Martinez MD Lumbar radiculopathy (Primary Dx); Major depression in remission; Attention deficit hyperactivity disorder (ADHD), predominantly inattentive type; Type 2 diabetes mellitus with hyperglycemia, without long-term current use of insulin (HCC) 12/19/2024 10:18 AM CDT - 12/19/2024 11:59 PM CDT Hospital Encounter [facility] [address] [place] [address] Lumbar radiculopathy Discharge Disposition: Discharge to home or self care 12/19/2024 Results Follow-Up [facility] [address] [place] [address] Nathan Martinez MD XR Spine Lumbar 4 or More Views from Last 3 Months Immunizations Immunization Administration [...] [place] SEPTOPLASTY 11/07/2020 NASAL TURBINATE REDUCTION 11/07/2020 HERNIA REPAIR 2016 Medical History Medical History Date Comments Diabetes mellitus (HCC) Diverticulitis Colitis Insomnia Depression Ankle fracture, right Wrist fracture, left Sleep apnea 2012 Hypertension 1996 Anxiety GI (gastrointestinal bleed) 2007 Family History Medical History Relation Name Comments Diabetes Father Father Heart disease Father Father Cancer Mother Relation Name Status Comments Father Father Mother Social History Tobacco Use Types Packs/Day Years Used Date Smoking Tobacco: Never Smokeless Tobacco: Current Chew Tobacco Cessation:Ready to Q uit: Not Asked; Counseling Given: Not Answered Comments:advised to quit 1 can of chew per week since 1994 Alcohol Use Standard Drinks/Week Comments Not Currently 0 (1 standard drink = 0.6 oz pur e alcohol) [facility] Utilities Answer Date Recorded In the past 12 months has th e electric, gas, oil, or water [employer] threatened to shut off services in your [...] often do you attend chur ch or zoroastrianism services? Never 10/13/2024 Do you belong to any clubs o r organizations such as presybeterian groups, unions, fraternal or athletic groups, or [...] points, staff should administer the PHQ-9) 0 02/20/2025 Hunger Vital Sign Answer Date Recorded Within [...] any time in the past 12 m [facility], were you homeless or living in a [facility] (including now)? No 10/13/2024 Personal Safety Answer [...] Sign Reading Time Taken Comments Blood Pressure 110/74 02/20/2025 10:30 AM CDT Pulse 86 02/20/2025 10:30 AM CDT Temperature 36.7 C (98 F) 02/20/2025 10:30 AM CDT Respiratory Rate 20 02/20/2025 10:3 0 AM CDT Oxygen Saturation 98% 02/20/2025 10: 30 AM CDT Inhaled Oxygen Concentration - - Weight 88.8 kg (195 lb 12.8 oz) 025 10:30 AM CDT Height 180.3 cm (5' 10.98) 02/20/2025 10:30 AM CDT Body Mass Index 27.32 02/20/2025 10:30 AM CDT Plan of Treatment Health Maintenance Due Date Last Done Comments Hepatitis C Screening 1969 Prostate Cancer Screening-PSA 1969 Dilated Eye Exam 1969 Regular Well Visit/Exam 18-64 1987 Lipid Panel 01/13/2018 01/13/2017 Zoster Vaccine (1 of 2) 2019 Pneumococcal vaccine <65 (2 of 2 - PCV) 02/12/2021 02/13/2020, 01/12/2015 Covid-19 Vaccine (3 - 2023-2 5 season) 2024 05/12/2021, 04/01/2021 Influenza Vaccine (#1) 2025 4, 05/24/2013, 05/24/2012, Additional history exists Hemoglobin A1C 05/17/2025 11/14/2024, 07/24, 05/02/2024, Additional history exists eGFR 10/12/2025 10/12/2024, 09/24, 09/02/2021, Additional history exists Foot Exam 11/14/2025 11/14/2024, 07/24, 10/16/2023, Additional history exists Albumin Creatinine Ratio, Urine 01/20/2026 01/20/2025, 05/05/2022, 06/17/2021 Depression Screening 02/20/2026 02/20/2025, 01/20/2025, 12/19/2024, Additional history exists Colon Cancer Screening-Colonoscopy 05/09/20292023, 11/12/2020 DTaP/Tdap/Td Vaccine (3 - Td or Tdap) 11/28/2032 11/28/2022, 08/24/2011, 05/03/2008, Additional history exists Hepatitis B Screening Completed 05/03/2008 Procedures Procedure Name Priority Date/Time Associated Diagnosis Comments CHOLESTEROL, LDL, DIRECT Routine 02/20/2025 11:17 AM CDT Mixed hyperlipidemia ALBUMIN CREATININE RATIO, URINE Routine 01/20/2025 11:16 AM CDT Type 2 diabetes mellitus with hyperglycemia, without long-term current use of insulin (HCC) DRUG MONITORING TEMPLATE Routine 01/20/2025 10:52 AM CDT DRUG MONITOR, HEROIN METAB, QN, URINE Routine 01/20/2025 10:52 AM CDT DRUG MONITOR, ALCOHOL METAB, W/CONF, URINE Routine 01/20/2025 10:52 AM CDT DRUG MONITOR, PANEL 1, W/CONF, URINE Routine 01/20/2025 10:52 AM CDT XR SPINE LUMBAR ROUTINE Schedule Routine, Read Routine (OP Routine) 12/19/2024 10:30 AM CDT Lumbar radiculopathy POCT HEMOGLOBIN A1C Routine 11/14/2024 11:39 AM CDT Controlled type 2 diabetes mellitus without complication, without long-term current use of insulin (HCC) EGFR Routine 10/12/2024 5:05 AM HARVESTER OPERATOR COLONOSCOPY Routine 05/09/2024 7:50 AM CDT from Last 3 Months or Most Recently Relevant to Health Maintenance Results * (ABNORMAL) Cholesterol, LDL, direct (02/20/2025 11:17 AM CDT) LDL, direct 105(H) <100 mg/dL [facility] Comment: Desirable range <100 mg/dL for primary prevention; <70 mg/dL for patients with CHD or diabetic patients with > or = 2 CHD risk factors. Blood 02/20/2025 11:1 7 AM CDT 02/20/2025 11:17 AM CDT us Nathan Martinez MD LAB BLOOD ORDERABLES Final Result [facility] [address] [place] [address] * Albumin Creatinine Ratio, Urine (01/20/2025 11:16 AM CDT) Creatinine, ur 122 20 - 320 mg/dL [facility] Microalbumin, ur 0.3 See Note: mg/dL [facility] Comment: Reference Range: Reference Range Not established Microalbumin/creat ratio 2 <30 mg/g creat [facility] Comment: The ADA defines abnormalities in albumin excretion as follows: Albuminuria Category Result (mg/g creatinine) Normal to Mildly increased <30 Moderately increased 30-299 Severely increased > OR = 300 The ADA recommends that at least two of three specimens collected within a 3-6 month period be abnormal before considering a patient to be within a diagnostic category. Urine 01/20/2025 11:1 6 AM CDT 01/21/2025 6:00 AM CDT Nathan Martinez MD LAB URINE ORDERABLES Final Result [facility] [address] [place] [address] * Drug Monitor, Heroin Metab, QN, Urine (01/20/2025 10:52 AM CDT) Pathologist [facility] 6-Acetylmorphi ne, ur NEGATIVE <10 ng/mL [facility] Heroin Metab Comments [facility] Comment:See LDT Notes 01/20/2025 10:5 2 AM CDT 01/21/2025 6:01 AM CDT Nathan Martinez MD LAB URINE ORDERABLES Final Result [facility] [address] [place] [address] * (ABNORMAL) Drug Monitor, Alcohol Metab, W/Conf, Urine (01/20/2025 10:52 AM CDT) Pathologist [facility] Alcohol Metabolites POSITIVE(A ) <500 ng/mL [facility] Ethyl Glucuronide (ETG) 14,558(H) <500 ng/mL [facility] Ethyl Sulfate (ETS) 1,720(H) <100 ng/mL [facility] Alcohol metabolites comments [facility] Comment:See Alcohol Metab No mariam, LDT Notes 01/20/2025 10:5 2 AM CDT 01/21/2025 6:01 AM CDT Nathan Martinez MD LAB URINE ORDERABLES Final Result [facility] [address] [place] [address] * Drug Monitoring Template (01/20/2025 10:52 AM CDT) Notes and Comments [facility] Comment: This drug testing is for medical treatment only. Analysis was performed as non-forensic testing and these results should be used only by healthcare providers to render diagnosis or treatment, or to monitor progress of medical conditions. Alcohol Metab Notes: Ethylglucuronide, Ethyl sulfate detected is consistent with exposure to alcohol. Marijuana Notes: Marijuana Metabolite detected is consistent with exposure to Marijuana (THC) and/or hemp derived products. Some jurisdictions do not include hemp within the definition of Marijuana. Opiates Notes: Hydrocodone, Norhydrocodone, Hydromorphone detected is consistent with the use of the drug Hydrocodone. Hydromorphone detected is consistent with the use of the drug Hydromorphone. Hydromorphone can be a prescribed drug and is also a metabolite of Hydrocodone. LDT Notes: Confirmation tests were developed and their analytical performance characteristics have been determined by [employer]. It has not been cleared or approved by the FDA. This assay has been validated pursuant to the CLIA regulations and is used for clinical purposes. Healthcare Providers needing Interpretation assistance, please contact us at [phone] ( ) M-F, 8am to 10pm EST 01/20/2025 10:5 2 AM CDT 01/21/2025 6:01 AM CDT us Nathan Martinez MD LAB URINE ORDERABLES Final Result [facility] [id number] [place] [id number] * (ABNORMAL) Drug Monitor,Panel 1 w/Conf, Urine (01/20/2025 10:52 AM CDT) Amphetamine, ur, quant NEGATIVE <500 ng/mL [facility] Barbiturates, ur NEGATIVE <300 ng/mL [facility] Benzodiazepines NEGATIVE <100 ng/mL [facility] Cocaine metabolite NEGATIVE <150 ng/mL [facility] Marijuana Metabolite POSITIVE(A) <20 ng/mL [facility] Marijuana Metabolite 16(H) <5 ng/mL [facility] Marijuana Comments [facility] Comment:See Marijuana Notes, LDT Notes Methadone Metabolite NEGATIVE <100 ng/mL [facility] Opiates POSITIVE(A) <100 ng/mL [facility] Codeine NEGATIVE <50 ng/mL [facility] Hydrocodone 4,562(H) <50 ng/mL [facility] Hydromorphone 163(H) <50 ng/mL [facility] Morphine NEGATIVE <50 ng/mL [facility] Norhydrocodone 4,808(H) <50 ng/mL [facility] Opiates Comments [facility] Comment:See Opiates Notes, L DT Notes Oxycodone NEGATIVE <100 ng/mL [facility] Phencyclidine NEGATIVE <25 ng/mL [facility] Creatinine 120.3 > or = 20.0 mg/dL [facility] pH, ur 5.5 4.5 - 9.0 [facility] Oxidant NEGATIVE <200 mcg/mL [facility] 01/20/2025 10:5 2 AM CDT 01/21/2025 6:01 AM CDT us Nathan Martinez MD LAB URINE ORDERABLES Final Result [facility] [address] [place] [id number] * XR Spine Lumbar 4 or More Views (12/19/2024 10:30 AM CDT) Anatomical Region Laterality Modality L-spine N/A Computed Radiogr aphy 12/19/2024 3:29 PM CDT Narrative 12/19/2024 3:31 PM CDT EXAM DESCRIPTION: XR SPINE LUMBAR 4 OR MORE VIEWS REASON FOR STUDY: pain Low back pain for approx 1.5 months FINDINGS: Five views submitted with comparison 10/11/2024. No acute fracture. Alignment is normal. Mild L3-L4 degenerative disc disease. Prior hernia repair noted. IMPRESSION: Mild L3-L4 degenerative disc disease. THIS IS AN ELECTRONICALLY VERIFIED FINAL REPORT 12/19/2024 3:31 PM - Electronically signed by Rufino Wasserman M.D. MF: [email or web address] Report ID: [id number] Reading Location: [id number] Procedure Note Rufino Wasserman MD - 12/19/2024 EXAM DESCRIPTION: XR SPINE LUMBAR 4 OR MORE VIEWS REASON FOR STUDY: pain Low back pain for approx 1.5 months FINDINGS: Five views submitted with comparison 10/11/2024. No acute fracture. Alignment is normal. Mild L3-L4 degenerative disc disease. Prior hernia repair noted. IMPRESSION: Mild L3-L4 degenerative disc disease. THIS IS AN ELECTRONICALLY VERIFIED FINAL REPORT 12/19/2024 3:31 PM - Electronically signed by Rufino Wasserman M.D. MF: [email or web address] Report ID: [id number] Reading Location: [id number] Nathan Martinez MD IMG XR PROCEDURES Final Re sult * (ABNORMAL) POCT hemoglobin A1c (11/14/2024 11:39 AM CDT) Hemoglobin A1C, POC 7.4 4.0 - 5.6 % Blood 11/14/2024 11:3 9 AM CDT Nathan Martinez MD POINT OF CARE TEST ORDERAB LES Final Result * eGFR (10/12/2024 5:05 AM HARVESTER OPERATOR) eGFR 89 >=60 mL/min/1. 73 m2 Comment: [...] reviewed 2021. Testing performed by: [facility], [address] [place] [address]., [id number] Blood 10/12/2024 5:05 AM HARVESTER OPERATOR 10/12/2024 5:34 AM HARVESTER OPERATOR us Baldomero Sung MD LAB BLOOD ORDERABLES Final Result [facility] [address] [facility] Department [place] [address] * (ABNORMAL) Colonoscopy (05/09/2024 7:50 AM CDT) Anatomical Region Laterality Modality Other us Historical Provider ENDOSCOPY PROCEDURES Marilee l Result from Last 3 Months or Most Recently Relevant to Health Maintenance Insurance [id number] CLAIMS CLAIMS [id number] CLAIMS Advance Directives For more information, please contact: [phone] * Full Code (Latest Code Status on File) Date Activated Date Inactivated Comments 10/12/2024 2:05 AM 10/15/2024 5:49 PM Care Teams Dosimetrist Relationship Specialty Start Date End Date Nathan Martinez MD PCP - General Family Practice 09/10/20 Monique Garcia MD Referring Physician Gastroenterology 06/11/20 Monique Garcia MD Referring Physician Gastroenterology 06/11/20
--- OUTSIDE RECORDS SUMMARY | 2025-03-08 00:37 | XMS_ITS ---
Author Name Interface, [id number] lity Address [address] [place] [address] [facility] mcintosh Address [address] [place] [address] Allergies and Adverse Reactions Medication/Group Name Reaction [...] sufficient for 30 days; 3 refills active 019 meloxicam 15 MG Oral Tablet orally 1.0 tablet daily 019 active Problems Diagnosis Status Date of Diagnosis [...]
--- OUTSIDE RECORDS SUMMARY | 2025-03-08 00:37 | XMS_ITS ---
Author Name Interface, [id number] lity Address [address] [place] [address] [facility] mcintosh Address [address] [place] [address] Allergies and Adverse Reactions Medication/Group Name Reaction [...]
--- OUTSIDE RECORDS SUMMARY | 2025-03-08 00:37 | XMS_ITS | CCD ---
Author Name Interface, [id number] lity Address [address] [place] [address] [facility], LAN Address [address] [place] [address] Care Team Providers Care Hospital Chaplain Name Role Phone Darien GUNN, Mata James [...]
--- OUTSIDE RECORDS SUMMARY | 2025-03-08 00:37 | XMS_ITS | Clinical Summary ---
Author Organization [facility] [employer] Address [address] [place] [address] Care Team Providers Care Senior Python Developer Name Role Phone Unavailable Primary Care Provider Unavailabl e Source Comments [facility] [employer],non-owned Affiliates and Associated Physician Practices is amultiple site organization consisting of ambulatory clinics and hospital sitesin [place], [place], [place] and [place]. This disclosure is being madepursuant to the Care Everywhere program and may not contain all information available regarding this patient. Last updated 18.[facility] [employer] Allergies Active Allergy Reactions Criticality Noted Date Comments Shogan Unknown 01/01/2025 Ketorolac Urticaria Medium 01/01/2025 Medications * Be aware that medications may not be up to date on this document. Alwaysverify current medications with the patient. hydrOXYzine pamoate (VISTARIL) 25 MG capsule Take 1 (one) capsule by mouth 3 times daily Active lisinopril (PRINIVIL; ZESTRIL) 10 MG tablet Take 1 (one) tablet by mouth once daily Active metFORMIN (GLUCOPHAGE) 500 MG tablet Take 1 (one) tablet by mouth 2 times daily with morning and evening meal Active acetaminophen (TYLENOL) 650 MG suppository Insert 1 Suppository into the rectum 4 times daily as needed. 5 Active escitalopram (Lexapro) 20 MG tablet Take 1 (one) tablet by mouth once daily Active traZODone (Desyrel) 100 MG tablet Take 1 (one) tablet by mouth at bedtime Active HYDROcodone-acet aminophen ([place]) 5-325 MG tabletIndication s:Right groin pain Take 1 (one) tablet by mouth every 4 hours as needed 12 tablet 05/14/202 5 Active Active Problems Problem Noted Date Diagnosed Date Pain in right testicle 01/02/2025 Resolved Problems Problem Noted Date Diagnosed Date Resolved Date SBO (small bowel obstruction) 01/10/2015 01/02/2025 Encounters Date Type Department Care Team Description 01/02/2025 Travel 01/01/2025 10:15 PM CDT - 01/04/2025 4:47 PM CDT Hospital Encounter [facility] [address] [place] [address] Sergei Del Real MD [place], MD Rossy Callejas Grant W, MD Ibrahim, Saira, MD Family Medicine Discharge Disposition: Home or Self Care 01/01/2025 Travel from Last 3 Months Immunizations Immunization Administration Dates Next Due PNEUMOCOCCAL PPSV23 01/12/2015 Social History Tobacco Use Types Packs/Day Years Used Date Smoking Tobacco: Never Smokeless Tobacco: Current Snuff Alcohol Use Standard Drinks/Week Comments Yes 0 (1 standard drink = 0.6 oz pur e alcohol) monthly social AUDIT-C Answer Date Recorded Q1: How often do you have a drink containing alc ohol? Monthly or less 01/02/2025 Q2: How many drinks containi ng alcohol do you have on a typical day when you are drinking? 1 or 2 01/02/2025 Q3: How often do you have si x or more drinks on one occasion? Never 01/02/2025 Sex and Gender Information Value Date Recorded Sex Assigned at Not on file Legal Sex Male 1:44 PM CDT Gender Identity Not on file Sexual Orientation Not on file Last Filed Vital Signs Vital Sign Reading Time Taken Comments Blood Pressure 110/68 01/04/2025 3:27 PM CDT Pulse 60 01/04/2025 3:27 PM CDT Temperature 36.7 C (98 F) 01/04/2025 3:27 PM CDT Respiratory Rate 16 01/04/2025 3:27 PM CDT Oxygen Saturation 97% 01/04/2025 3:27 PM CDT Inhaled Oxygen Concentration - - Weight 87.5 kg (192 lb 14.4 oz) 01/02/2025 5:49 AM CDT Height 180.3 cm (5' 11) 01/02/2025 5:49 AM CDT Body Mass Index 26.9 01/02/2025 5:49 AM CDT Plan of Treatment Health Maintenance Due Date Last Done Comments COLOGUARD (AGES 45-75) - COLON CA SCREENING 1969 CT COLONOGRAPHY - COLON CA SCREENING 1969 FIT - COLON CA SCREENING 1969 FLEX SIG - COLON CA SCREENING 1969 HIV SCREENING 02/16/1984 HEPATITIS C SCREENING 02/11/1987 DTAP/TDAP/TD VACCINES (1 - Tdap) 02/16/1988 HEPATITIS B VACCINE (1 of 3 - 19+ 3-dose series) 02/16/1988 PNEUMOCOCCAL VACCINE 50+ (2 of 2 - PCV) 2019 01/12/2015 ZOSTER VACCINE (1 of 2) 2019 LIPID TESTING 01/13/2022 01/13/2017 COVID-19 VACCINE (3 - 2023- season) 2024 05/12/2021, 04/01/2021 DEPRESSION SCREENING 08/24/2024 INFLUENZA VACCINE (#1) 2025 4, 05/24/2013, 05/24/2012, Additional history exists COLON MONITORING 05/09/2034 05/09/2024 COLONOSCOPY - COLON CA SCREENING 05/09/2034 05/09/2024 Colorectal Cancer Screening 05/09/2034 HIB VACCINE Aged Out No longer eligi ble based on patient's age to complete this topic HPV VACCINE Aged Out No longer eligi ble based on patient's age to complete this topic MENINGOCOCCAL (Group B) VACCINE SHARED DECISION-MAKING Aged Out No longer eligible based on patient's age to complete this topic MENINGOCOCCAL GROUPS A/C/Y/W VACCINE Aged Out No longer eligible based on patient's age to complete this topic Procedures Procedure Name Priority Date/Time Associated Diagnosis Comments CARDIAC RHYTHM STRIP ORDER 01/06/2025 9:21 AM CDT MRI LUMBAR SPINE WO CONTRAST Routine 01/03/2025 7:15 AM CDT Right groin pain MAGNESIUM BLOOD Routine 01/03/2025 4:28 AM CDT Pain in right testicle COMPREHENSIVE METABOLIC PANEL AM Draw 01/03/2025 4:28 AM CDT Pain in right testicle CBC W/O DIFFERENTIAL AM Draw 01/03/2025 4:28 AM CDT Pain in right testicle CT ABDOMEN PELVIS W CONTRAST STAT 01/02/2025 1:27 PM CDT Pain in right testicle C-REACTIVE PROTEIN STAT 01/02/2025 7: 24 AM CDT Pain in right testicle ERYTHROCYTE SEDIMENTATION RATE STAT 01/02/2025 7:24 AM CDT Pain in right testicle MAGNESIUM BLOOD STAT 01/02/2025 7:24 AM CDT Pain in right testicle COMPREHENSIVE METABOLIC PANEL STAT 01/02/2025 7:24 AM CDT Pain in right testicle CBC W/O DIFFERENTIAL STAT 01/02/2025 7:24 AM CDT Pain in right testicle US SCROTUM W DOPPLER STAT 01/01/2025 11:40 PM CDT Pain in right testicle URINALYSIS REFLEX MICROSCOPIC REFLEX CULTURE STAT 01/01/2025 11:14 PM CDT TRICHOMONAS VAGINALIS FABIAN STAT 01/01/2025 11:14 PM CDT CHLAMYDIA AND N. GONORRHOEAE FABIAN STAT 01/01/2025 11:14 PM CDT from Last 3 Months Results * CARDIAC RHYTHM STRIP ORDER (01/06/2025 9:21 AM CDT) Narrative 01/06/2025 9:21 AM CDT Ordered by an unspecified provider. us Scanned Document CARDIAC SERVICES ORDERABLES Michele adelso Result - Final * MRI Lumbar Spine Wo Contrast (01/03/2025 7:15 AM CDT) Anatomical Region Laterality Modality Spine Magnetic Resonan ce 01/03/2025 7:54 AM CDT Impressions 01/03/2025 10:19 AM CDT IMPRESSION: Mild degenerative disc and joint disease as above. Edited by Fatemeh Keys on 01/03/2025 10:18 AM > Interpreting Provider: Adam Elias MD on 01/03/2025 10:19 AM Narrative 01/03/2025 10:19 AM CDT PROCEDURE: MRI LUMBAR SPINE WO CONTRAST DATE/TIME OF EXAM: 01/03/2025 7:16 AM CLINICAL INFORMATION: None relevant/not provided if blank. Indication: R10.31: Right lower quadrant pain Additional History: TECHNIQUE: MRI of the lumbar spine was performed without contrast according to standard protocol. FINDINGS: The alignment is normal. Vertebral bodies are normal in height without evidence of compression fractures. Marrow signal intensity is normal. The conus medullaris terminates at the level of L1 and the distal spinal cord signal intensity is normal. The intervertebral discs are normal in height. No soft tissue abnormality is identified. L1-L2: There is no disc bulge. There is no central canal stenosis. There is no facet osteoarthritis. There is no neural foraminal stenosis. L2-L3: There is mild diffuse posterior disc bulge. There is no central canal stenosis. There is no facet osteoarthritis. There is no neural foraminal stenosis. L3-L4: There is mild diffuse posterior disc bulge. There is mild central canal stenosis. There is mild bilateral facet osteoarthritis. There is mild bilateral neural foraminal stenosis. L4-L5: There is left paracentral disc bulge. There is mild central canal stenosis. There is mild bilateral facet osteoarthritis. There is mild bilateral neural foraminal stenosis. L5-S1: There is mild diffuse posterior disc bulge. There is mild central canal stenosis. There is mild bilateral facet osteoarthritis. There is no neural foraminal stenosis. Procedure Note Adam Elias MD - 01/03/2025 PROCEDURE: MRI LUMBAR SPINE WO CONTRAST DATE/TIME OF EXAM: 01/03/2025 7:16 AM CLINICAL INFORMATION: None relevant/not provided if blank. Indication: R10.31: Right lower quadrant pain Additional History: TECHNIQUE: MRI of the lumbar spine was performed without contrastaccording to standard protocol. FINDINGS: The alignment is normal. Vertebral bodies are normal in height without evidence of compression fractures. Marrow signal intensity is normal.The conus medullaris terminates at the level of L1 and the distal spinalcord signal intensity is normal. The intervertebral discs are normal inheight. No soft tissue abnormality is identified. L1-L2: There is no disc bulge. There is no central canal stenosis. Thereis no facet osteoarthritis. There is no neural foraminal stenosis. L2-L3: There is mild diffuse posterior disc bulge. There is no central canal stenosis. There is no facet osteoarthritis. There is no neural foraminal stenosis. L3-L4: There is mild diffuse posterior disc bulge. There is mild central canal stenosis. There is mild bilateral facet osteoarthritis. There ismild bilateral neural foraminal stenosis. L4-L5: There is left paracentral disc bulge. There is mild central canal stenosis. There is mild bilateral facet osteoarthritis. There is mild bilateral neural foraminal stenosis. L5-S1: There is mild diffuse posterior disc bulge. There is mild central canal stenosis. There is mild bilateral facet osteoarthritis. There isno neural foraminal stenosis. IMPRESSION: Mild degenerative disc and joint disease as above. Edited by Fatemeh Keys on 01/03/2025 10:18 AM > Interpreting Provider: Adam Elias MD on 01/03/2025 10:19 AM [facility] Roman Blair MD MR ORDERABLES Final Result * (ABNORMAL) CBC W/O DIFFERENTIAL (01/03/2025 4:28 AM CDT) Only the most recent of2 resultswithin the time period is included. WBC 4.7 4.0 - 10.7 x10E9/L 01/03/2025 5:10 AM CDT [facility] RBC Count 5.26 4.30 - 5.80 x10E12/L 01/03/2025 5:10 AM CDT [facility] Hemoglobin 13.9 13.3 - 17.5 g/dL 01/03/2025 5:10 AM CDT [facility] Hematocrit 42.4 38.7 - 51.1 % 01/03/2025 5:10 AM CDT [facility] MCV 80.6 80.0 - 98.0 fL 01/03/2025 5:10 AM CDT [facility] MCH 26.4(L) 26.7 - 33.6 pg 01/03/2025 5:10 AM CDT [facility] MCHC 32.8 31.7 - 36.3 g/dL 01/03/2025 5:10 AM CDT [facility] RDW-CV 13.5 11.3 - 14.8 % 01/03/2025 5:10 AM CDT [facility] Platelet Count 289 150 - 420 x10E9/L 01/03/2025 5:10 AM CDT [facility] MPV 9.1 7.8 - 11.4 fL 01/03/2025 5:10 AM CDT [facility] Blood BLOOD SPECIMEN / Unknown Lab Venipuncture / Unknown 01/03/2025 4:28 AM CDT 01/03/2025 5:05 AM CDT Brian Blair MD LAB - HEMATOLOGY ORDERABLES Marilee harrison Result Performing Organization Address City/State/[facility] Co de Phone Number [facility] [address] [place] [address] * (ABNORMAL) COMPREHENSIVE METABOLIC PANEL (01/03/2025 4:28 AM CDT) Only the most recent of2 resultswithin the time period is included. [facility] Signature Glucose 97 70 - 99 mg/dL 01/03/2025 5:31 AM [facility] Sodium 135(L) 136 - 145 mmol/L 01/03/2025 5:31 AM T [facility] Potassium 4.1 3.5 - 5.1 mmol/L 01/03/2025 5:31 AM CDT [facility] Chloride 102 98 - 107 mmol/L 01/03/2025 5:31 AM CDT [facility] CO2 23 22 - 29 mmol/L 01/03/2025 5:31 AM CDT [facility] Calcium 8.6 8.4 - 10.4 mg/dL 01/03/2025 5:31 AM CDT [facility] Anion Gap 10 6 - 16 mmol/L 01/03/2025 5:31 AM CDT [facility] BUN 10 7 - 26 mg/dL 01/03/2025 5:31 AM CDT [facility] Creatinine 1.07 0.72 - 1.25 mg/dL 01/03/2025 5:31 AM CDT [facility] Alkaline Phosphatase 53 40 - 150 U/L 01/03/2025 5:31 AM CDT [facility] ALT 31 6 - 57 U/L 01/03/2025 5:31 AM CDT [facility] AST 24 10 - 48 U/L 01/03/2025 5:31 AM CDT [facility] Protein Total 6.8 6.4 - 8.3 gm/dL 01/03/2025 5:31 AM CDT [facility] Albumin 3.7 3.4 - 5.0 gm/dL 01/03/2025 5:31 AM CDT [facility] Bilirubin Total 0.4 0.2 - 1.2 mg/dL 01/03/2025 5:31 AM CDT [facility] eGFR by CKD-EPI 82(L) >=90 mL/min/1.7 3 m2 01/03/2025 5:31 AM CDT [facility] Blood BLOOD SPECIMEN / Unknown Lab Venipuncture / Unknown 01/03/2025 4:28 AM CDT 01/03/2025 5:05 AM CDT Brian Blair MD LAB - CHEMISTRY ORDERABLES Final Result Performing Organization Address [facility] Co de Phone Number [facility] [address] [place] [id number] * MAGNESIUM BLOOD (01/03/2025 4:28 AM CDT) Only the most recent of2 resultswithin the time period is included. Magnesium 2.1 1.6 - 2.6 mg/dL 01/03/2025 5:31 AM CDT [facility] Blood BLOOD SPECIMEN / Unknown Lab Venipuncture / Unknown 01/03/2025 4:28 AM CDT 01/03/2025 5:05 AM CDT Brian Blair MD LAB - CHEMISTRY ORDERABLES Final Result Performing Organization Address City/[facility]/ZIP Co de Phone Number [facility] [address] [place] [id number] * CT Abdomen Pelvis W Contrast (01/02/2025 1:27 PM CDT) Anatomical Region Laterality Modality Abdomen, Pelvis Computed Tomogra phy 01/02/2025 1:55 PM CDT Impressions 01/02/2025 1:59 PM CDT IMPRESSION: 1. No evidence of acute process. > Interpreting Provider: Magaly Payton MD on 01/02/2025 1:59 PM Narrative 01/02/2025 1:59 PM CDT PROCEDURE: CT ABDOMEN PELVIS W CONTRAST DATE/TIME OF EXAM: 01/02/2025 1:30 PM CLINICAL INFORMATION: None relevant/not provided if blank. Indication: N50.811: Right testicular pain Additional History: COMPARISON: None. TECHNIQUE: CT of the abdomen and pelvis was performed following intravenous contrast utilizing standard protocol. CT dose reduction technique was used, including Automated Exposure Control. CONTRAST: IOPAMIDOL 76 % IV SOLN:100 mL FINDINGS: LUNG BASES: There is streaky atelectasis in both lung bases, more on the right than the left. LIVER: Diffuse hepatic steatosis. GALLBLADDER: Absent. BILE DUCTS: Nondilated. PANCREAS: Within normal limits. SPLEEN: Within normal limits. ADRENALS: Within normal limits. KIDNEYS/URETERS: Within normal limits. PELVIC ORGANS: Within normal limits. BOWEL: Findings of prior bowel reconstruction and reanastomosis. No evidence of bowel obstruction. No appreciable inflammation. PERITONEUM/RETROPERITONEUM: No ascites, free air or enlarged mesenteric/retroperitoneal lymph nodes. VESSELS: Within normal limits. ABDOMINAL WALL: Within normal limits. BONES: No suspicious lytic or blastic lesions. Procedure Note Magaly Payton MD - 01/02/2025 PROCEDURE: CT ABDOMEN PELVIS W CONTRAST DATE/TIME OF EXAM: 01/02/2025 1:30 PM CLINICAL INFORMATION: None relevant/not provided if blank. Indication: N50.811: Right testicular pain Additional History: COMPARISON: None. TECHNIQUE: CT of the abdomen and pelvis was performed following intravenouscontrast utilizing standard protocol. CT dose reduction technique was used, including Automated ExposureControl. CONTRAST: IOPAMIDOL 76 % IV SOLN:100 mL FINDINGS: LUNG BASES: There is streaky atelectasis in both lung bases, more on the right than the left. LIVER: Diffuse hepatic steatosis. GALLBLADDER: Absent. BILE DUCTS: Nondilated. PANCREAS: Within normal limits. SPLEEN: Within normal limits. ADRENALS: Within normal limits. KIDNEYS/URETERS: Within normal limits. PELVIC ORGANS: Within normal limits. BOWEL: Findings of prior bowel reconstruction and reanastomosis. No evidence of bowel obstruction. No appreciable inflammation. PERITONEUM/RETROPERITONEUM: No ascites, free air or enlarged mesenteric/retroperitoneal lymph nodes. VESSELS: Within normal limits. ABDOMINAL WALL: Within normal limits. BONES: No suspicious lytic or blastic lesions. IMPRESSION: 1. No evidence of acute process. > Interpreting Provider: Magaly Patyon MD on 01/02/2025 1:[address] MD [address] ORDERABLES Final Result * C-REACTIVE PROTEIN (01/02/2025 7:24 AM CDT) C-Reactive Protein 0.10 <=0.50 mg/dL 01/02/2025 8:02 AM CDT [facility] Blood BLOOD SPECIMEN / Unknown Lab Venipuncture / Unknown 01/02/2025 7:24 AM CDT 01/02/2025 7:29 AM CDT Result [facility] Moises Rodriguez MD LAB - CHEMISTRY ORDERABLE S Final Result Performing Organization Address [facility] de Phone Number [facility] [address] [place] [address] * ERYTHROCYTE SEDIMENTATION RATE (01/02/2025 7:24 AM CDT) Erythrocyte Sedimentation Rate Automated 7 0 - 20 MM/HR 01/02/2025 7:48 AM CDT [facility] Blood BLOOD SPECIMEN / Unknown Lab Venipuncture / Unknown 01/02/2025 7:24 AM CDT 01/02/2025 7:29 AM CDT Moises Rodriguez MD LAB - HEMATOLOGY ORDERABL ES Final Result Performing Organization Address City/State/[facility] Co de Phone Number [facility] [address] [place] [address] * US SCROTUM WITH DOPPLER (01/01/2025 11:40 PM CDT) Anatomical Region Laterality Modality Pelvis Ultrasound 01/02/2025 9:24 AM CDT Impressions 01/02/2025 9:25 AM CDT IMPRESSION: Normal scrotal ultrasound > Interpreting Provider: Tess Jose MD on 01/02/2025 9:25 AM Narrative 01/02/2025 9:25 AM CDT PROCEDURE: US SCROTUM W DOPPLER DATE/TIME OF EXAM: 01/01/2025 11:40 PM CLINICAL INFORMATION: None relevant/not provided if blank. Indication: N50.811: Right testicular pain Additional History: COMPARISON: None. TECHNIQUE: High frequency ultrasound of the scrotum and testicles as performed by the technologist with DICOM image capture. Porter scale images were obtained; additionally, Color Doppler and pulse wave Spectral Doppler interrogation was performed and interpreted. FINDINGS: The right testicle measures 3.8 x 3.0 x 2.2 cm and has normal size and echogenicity. No mass or cyst. The testicle is normally perfused as seen on color Doppler with spectral analysis. The right epididymal head measures 0.5 x 1.3 x 0.3 cm and is unremarkable and normally perfused. No hydrocele or varicocele. The left testicle measures 4.2 x 2.7 x 2 cm and has normal size and echogenicity. No mass or cyst. The testicle is normally perfused as seen on color Doppler with spectral analysis. The left epididymal head measures 0.9 x 0.8 x 0.8 cm and is unremarkable and is perfused. There is no hydrocele or varicocele. Procedure Note Tess Jose MD - 01/02/2025 PROCEDURE: US SCROTUM W DOPPLER DATE/TIME OF EXAM: 01/01/2025 11:40 PM CLINICAL INFORMATION: None relevant/not provided if blank. Indication: N50.811: Right testicular pain Additional History: COMPARISON: None. TECHNIQUE: High frequency ultrasound of the scrotum and testicles as performed by the technologist with DICOM image capture. Porter scaleimages were obtained; additionally, Color Doppler and pulse wave SpectralDoppler interrogation was performed and interpreted. FINDINGS: The right testicle measures 3.8 x 3.0 x 2.2 cm and has normal size and echogenicity. No mass or cyst. The testicle is normally perfused asseen on color Doppler with spectral analysis. The right epididymal head measures 0.5 x 1.3 x 0.3 cm and is unremarkable and normally perfused.No hydrocele or varicocele. The left testicle measures 4.2 x 2.7 x 2 cm and has normal size and echogenicity. No mass or cyst. The testicle is normally perfused asseen on color Doppler with spectral analysis. The left epididymal headmeasures 0.9 x 0.8 x 0.8 cm and is unremarkable and is perfused. There is no hydrocele or varicocele. IMPRESSION: Normal scrotal ultrasound > Interpreting Provider: Tess Jose MD on 01/02/2025 9:25 AM us Sergei Del Real MD US ORDERABLES Final Result * TRICHOMONAS VAGINALIS FABIAN (01/01/2025 11:14 PM CDT) Trichomonas by FABIAN NEGATIVE NEGATIVE 01/02/2025 3:03 PM CDT [facility] Microbiology URINE / Unknown Collection / Unknown 01/01/2025 11:14 PM CDT 01/01/2025 11:20 PM CDT Sergei Del Real MD LAB - MICROBIOLOGY ORDERABLE S Final Result [facility] [address] [place] [address], [facility] [phone] * CHLAMYDIA AND N. GONORRHOEAE FABIAN (01/01/2025 11:14 PM CDT) Chlamydia by FABIAN NEGATIVE NEGATIVE 01/02/2025 3:03 PM CDT [facility] Neisseria gonorrhoeae FABIAN NEGATIVE NEGATIVE 01/02/2025 3:03 PM CDT [facility] Microbiology URINE / Unknown Collection / Unknown 01/01/2025 11:14 PM CDT 01/01/2025 11:20 PM CDT us Sergei Del Real MD LAB - MICROBIOLOGY ORDERABLE S Final Result [facility] [address] [place], [place] [address], [place] [phone] * URINALYSIS REFLEX MICROSCOPIC REFLEX CULTURE (01/01/2025 11:14 PM CDT) Color UA Yellow Yellow, Straw 01/01/2025 11:22 PM CDT [facility] Clarity UA Clear Clear 01/01/2025 11:22 PM CDT [facility] Glucose UA Normal Normal 01/01/2025 11:22 PM CDT [facility] Bilirubin UA Negative Negative 01/01/2025 11:22 PM CDT [facility] Ketone UA Negative Negative 01/01/2025 11:22 PM CDT [facility] Specific Daisy UA 1.019 1.005 - 1.030 01/01/2025 11:22 PM CDT [facility] Blood UA Negative Negative 01/01/2025 11:22 PM CDT [facility] pH UA 6.0 5.0 - 8.0 pH 01/01/2025 11:22 PM CDT [facility] Protein UA Negative Negative 01/01/2025 11:22 PM CDT [facility] Urobilinogen UA Normal Normal mg/dL 01/01/2025 11:22 PM CDT [facility] Nitrite UA Negative Negative 01/01/2025 11:22 PM CDT [facility] Leukocyte Esterase UA Negative Negative 01/01/2025 11:22 PM CDT [facility] Reflex Status Culture not indicated 01/01/2025 11:22 PM CDT [facility] Urine URINE SPECIMEN OBTAINED BY CLEAN CATCH PROCEDURE / Unknown Collection / Unknown 01/01/2025 11:14 PM CDT 01/01/2025 11:20 PM CDT Narrative [facility] - 01/01/2025 11:22 PM CDT us Sergei Del Real MD LAB - URINALYSIS ORDERABLES Final Result [facility] [address] [place] [address] from Last 3 Months Insurance [address] [employer] Advance Directives * Full Code (Latest Code Status on File) Date Activated Date Inactivated Comments 01/02/2025 4:40 AM 01/04/2025 5:47 PM * Full Code Date Activated Date Inactivated Comments 01/10/2015 10:22 PM 01/12/2015 5:26 PM
--- OUTSIDE RECORDS SUMMARY | 2025-03-08 00:37 | XMS_ITS | Encounter Summary ---
Author Organization [facility] Healthcare Address [address] [place] [address] Care Team Providers Care Dukey Rider Name Role Phone Monique Garcia MD Unavailable [phone] Monique Garcia MD Unavailable [phone] Nathan Martinez MD Primary Care Provider [phone] Encounter Details Date Type Department Care Team (Late st Contact Info) Description 01/25/2025 Results Follow-Up [facility] Primary Care [address] [place] [address] Nathan Matrinez MD [address] [place] [address] Albumin Creatinine Ratio, Urine Social History Tobacco Use Types Packs/Day Years Used Date Smoking Tobacco: Never Smokeless Tobacco: Current Chew Comments:advised to quit 1 c an of chew per week since 1994 Alcohol Use Standard Drinks/Week Comments Not Currently 0 (1 standard drink = 0.6 oz pur e alcohol) [facility] Utilities Answer Date Recorded In the past 12 months has [employer], gas, oil, or water company threatened to [...] week 10/13/2024 How often do you attend [facility] or shinto services? Never 10/13/2024 Do you belong to any clubs o r organizations such as yazidism groups, unions, fraternal or athletic groups, or [...] points, staff should administer the PHQ-9) 0 01/20/2025 Hunger Vital Sign Answer Date Recorded Within [...] any time in the past 12 m [facility], were you homeless or living in a assisted (including now)? No 10/13/2024 Personal Safety Answer [...] on filedocumented in this encounter Care Teams Dukey Rider Relationship Specialty Start Date End Date Nathan Martinez MD PCP - General Family Practice 09/10/20 Monique Garcia MD Referring Physician Gastroenterology 06/11/20 Monique Garcia MD Referring Physician Gastroenterology 06/11/20 documented as of this encounter
--- OUTSIDE RECORDS SUMMARY | 2025-03-08 00:37 | XMS_ITS | Encounter Summary ---
Author Organization [facility] Healthcare Address [address] [place] [address] Care Team Providers Care Dice Manager Name Role Phone oMnique Garcia MD Unavailable [phone] Monique Garcia MD Unavailable [phone] Nathan Martinez MD Primary Care Provider [phone] Encounter Details Date Type Department Care Team (Late st Contact Info) Description 02/21/2025 Results Follow-Up [facility] Primary Care [address] [place] [address] Nathan Martinez MD [address] [place] [address] Cholesterol, LDL, direct Social History Tobacco Use Types Packs/Day Years Used Date Smoking Tobacco: Never Smokeless Tobacco: Current Chew Comments:advised to quit 1 c an of chew per week since 1994 Alcohol Use Standard Drinks/Week Comments Not Currently 0 (1 standard drink = 0.6 oz pur e alcohol) [facility] Utilities Answer Date Recorded In the past 12 months has [employer], gas, oil, or water company threatened to [...] week 10/13/2024 How often do you attend [facility] or spiritism services? Never 10/13/2024 Do you belong to any clubs o r organizations such as christianity groups, unions, fraternal or athletic groups, or [...] any time in the past 12 m [facility], were you homeless or living in [...] as of this encounter Miscellaneous Notes * Result Encounter Note - Sujata Hall RN - 02/21/2025 8:13 AM CDT Patient advised via [employer]. documented in this encounter Plan of Treatment Not on file documented as of this encounter Visit Diagnoses Not on filedocumented in this encounter Care Teams Dice Manager Relationship Specialty Start Date End Date Nathan Martinez MD PCP - General Family Practice 09/10/20 Monique Garcia MD Referring Physician Gastroenterology 06/11/20 Monique Garcia MD Referring Physician Gastroenterology 06/11/20 documented as of this encounter
--- OUTSIDE RECORDS SUMMARY | 2025-03-08 00:38 | XMS_ITS | Referral Summary ---
Author Organization [facility] Address [address] [place] [address] Care Team Providers Care Gunnery/Ordnance Officer Name Role Phone Monique Garcia MD Unavailable [phone] Monique Garica MD Unavailable [phone] Nathan Martinez MD Primary Care Provider [phone] Encounters Date Type Department Care Team Description 02/21/2025 Results Follow-Up [facility] [address] [place] [address] Nathan Martinez MD Cholesterol, LDL, direct 02/20/2025 10:45 AM CDT Office Visit [facility] [address] [place] [address] Nathan Martinez MD Lumbar radiculopathy (Primary Dx); Mixed hyperlipidemia; Screening PSA (prostate specific antigen); Alcohol abuse; Type 2 diabetes mellitus with hyperglycemia, without long-term current use of insulin ([facility]) 01/25/2025 Results Follow-Up [facility] [address] [place] [address] Nathan Martinez MD Albumin Creatinine Ratio, Urine 01/20/2025 11:00 AM CDT Office Visit [facility] [address] [place] [address] Nathan Martinez MD Lumbar radiculopathy (Primary Dx); Type 2 diabetes mellitus with hyperglycemia, without long-term current use of insulin ([facility]); Major depression in remission; Attention deficit hyperactivity disorder (ADHD), predominantly inattentive type; Psychophysiologic insomnia; High risk medication use; Encounter for drug screening 12/19/2024 Results Follow-Up [facility] [address] [place] [address] Nathan Martinez MD XR Spine Lumbar 4 or More Views 12/19/2024 10:18 AM CDT - 12/19/2024 11:59 PM CDT Hospital Encounter [facility] [address] [place] [address] Lumbar radiculopathy Discharge Disposition: Discharge to home or self care 12/19/2024 11:15 AM CDT Office Visit [facility] [address] [place] [address] Nathan Martinez MD Lumbar radiculopathy (Primary Dx); Major depression in remission; Attention deficit hyperactivity disorder (ADHD), predominantly inattentive type; Type 2 diabetes mellitus with hyperglycemia, without long-term current use of insulin ([facility]) from Last 3 Months Allergies Active Allergy [...] total) by mouth daily 90 capsule 1 05/02/[address] (PROTONIX) 40 [...] today with results pending. Slight relief with [place] 5 mg. We will increase dosage to [...] mg Assessment & Plan (10/15/2023 11:29 AM JAVA WEB APPLICATION DEVELOPER): A1c today . Continue glipizide/Trulicity at same [...] 09/12/2022 Assessment & Plan (09/12/2022 9:35 AM JAVA WEB APPLICATION DEVELOPER): Some tinnitus for 2 months. Possible hearing loss. Ear canals normal today drums normal ENT refer Lipidemia 09/11/2022 Assessment & Plan (02/20/2025 11:05 AM CDT): Continue atorvastatin at same dosage. Well controlled. Needs repeat lipids Assessment & Plan (11/11/2024 2:33 PM CDT): Continue atorvastatin but needs repeat lipids Assessment & Plan (08/05/2024 2:15 PM JAVA WEB APPLICATION DEVELOPER): Continue atorvastatin same dosage. Needs repeat lipid Assessment & Plan (05/01/2024 12:22 PM CDT): Needs repeat lipids. Continue atorvastatin at same dose. Assessment & Plan (01/07/2024 4:08 PM CDT): Continue atorvastatin same dosage but needs repeat lipids. Assessment & Plan (10/15/2023 11:35 AM JAVA WEB APPLICATION DEVELOPER): Continue atorvastatin at same dosage. Well controlled. Assessment & Plan (06/23/2023 2:03 PM CDT): Continue Lipitor same dosage but needs repeat lipids. Assessment & Plan (01/15/2023 1:58 PM CDT): Continue atorvastatin same dosage but needs repeat lipids Assessment & Plan (09/11/2022 3:45 PM JAVA WEB APPLICATION DEVELOPER): Continue atorvastatin same dosage Acute left ankle [...] counseling. Assessment & Plan (10/15/2023 12:07 PM JAVA WEB APPLICATION DEVELOPER): Diabetic foot exam: Left monofilament exam: normal [...] surgeon Assessment & Plan (09/02/2021 8:59 AM JAVA WEB APPLICATION DEVELOPER): Pain most recently is in the right [...] 09/02/2021 Assessment & Plan (09/02/2021 9:00 AM JAVA WEB APPLICATION DEVELOPER): Refer to Dermatology Chronic abdominal pain 08/30/2021 Assessment & Plan (05/02/2024 3:02 PM CDT): History of multiple adhesions and several times he has had to had bowel obstruction treated. Constant pain. Worse about 30 minutes after eating. Referral to GI. Left lower quadrant Assessment & Plan (09/16/2021 9:44 AM JAVA WEB APPLICATION DEVELOPER): Try peppermint oil pill daily. Discontinue Levbid. Refer to GI. Needs colonoscopy. Assessment & Plan (09/02/2021 8:59 AM JAVA WEB APPLICATION DEVELOPER): Previous pain is similar to this pain [...] controlled. Assessment & Plan (08/05/2024 2:14 PM JAVA WEB APPLICATION DEVELOPER): Continue Provigil at same dosage. Well controlled. Return 3 months Assessment & Plan (05/01/2024 12:20 PM CDT): Continue Provigil at same dosage. Well controlled. Return 3 months Assessment & Plan (01/07/2024 4:03 PM CDT): Continue Provigil at same dosage. Well controlled. Assessment & Plan (10/16/2023 1:08 PM JAVA WEB APPLICATION DEVELOPER): Takes Provigil off-label. Adequate control with medicine. [...] usage. Assessment & Plan (09/13/2021 9:27 AM JAVA WEB APPLICATION DEVELOPER): Continue modafinil at same dosage. Well controlled. No signs of toxicity and patient understands this is off-label treatment Assessment & Plan (08/30/2021 7:27 AM JAVA WEB APPLICATION DEVELOPER): Allow modafinil as no evidence of toxicity and evidence of benefit Assessment & Plan (06/11/2021 1:30 PM CDT): Continue Provigil at same dosage. Well controlled. Assessment & Plan (02/08/2021 10:32 AM CDT): Continue modafinil at same dosage. Well controlled. Assessment & Plan (11/09/2020 1:42 PM CDT): Allow modafinil but understands off-label Assessment & Plan (10/08/2020 10:45 AM JAVA WEB APPLICATION DEVELOPER): Previously diagnosed with this by psychiatrist at [place]. good response previously to modafinil but I [...] PFTs Assessment & Plan (10/08/2020 10:46 AM JAVA WEB APPLICATION DEVELOPER): Much improved Assessment & Plan (09/10/2020 10:03 AM JAVA WEB APPLICATION DEVELOPER): Mainly with exertion and will refer to [...] disease Assessment & Plan (10/08/2020 10:45 AM JAVA WEB APPLICATION DEVELOPER): Much improved Assessment & Plan (09/10/2020 9:58 AM JAVA WEB APPLICATION DEVELOPER): Persisting cough and will refer to Pulmonary for Rash 09/10/2020 Assessment & Plan (10/08/2020 10:45 AM JAVA WEB APPLICATION DEVELOPER): Much improved Assessment & Plan (09/10/2020 10:02 AM JAVA WEB APPLICATION DEVELOPER): There is a dry Pash of eczematoid type rash on his back that is different than psoriasis he has other areas. We will give him some topical hydrocortisone cream but not to use longer than 2 weeks as risk of atrophy and tolerance. Nasal polyp 09/10/2020 Assessment & Plan (09/10/2020 10:07 AM JAVA WEB APPLICATION DEVELOPER): ENT referral Anemia 09/09/2020 Assessment & Plan (09/09/2020 1:03 PM JAVA WEB APPLICATION DEVELOPER): Needs iron studies and methylmalonic acid level. [...] months. Assessment & Plan (08/08/2024 11:33 AM JAVA WEB APPLICATION DEVELOPER): A1c today. Is improved at 7.0. Continue [...] controlled. Assessment & Plan (09/11/2022 3:47 PM JAVA WEB APPLICATION DEVELOPER): A1C TODAY.BMI Follow-up includes: nutrition counseling and [...] weekly Assessment & Plan (09/16/2021 9:43 AM JAVA WEB APPLICATION DEVELOPER): A1c today. Diabetes needing better control. No hypoglycemic symptoms. Metformin, Jardiance, and glipizide daily. No significant improvement and will add Trulicity 0.75 mg weekly Assessment & Plan (08/30/2021 7:25 AM JAVA WEB APPLICATION DEVELOPER): A1c today. Assessment & Plan (06/17/2021 10:38 [...] today. Assessment & Plan (10/08/2020 10:42 AM JAVA WEB APPLICATION DEVELOPER): Check fasting blood sugar today. Result is 415 no he has had better sugars at home. No hypoglycemic symptoms will increase Jardiance to 25 mg daily as he has had no side effects. Assessment & Plan (09/10/2020 9:58 AM JAVA WEB APPLICATION DEVELOPER): Needs better control. Medication options discussed. Risk [...] controlled. Assessment & Plan (10/15/2023 11:36 AM JAVA WEB APPLICATION DEVELOPER): Continue trazodone at same dosage. Well controlled. Assessment & Plan (06/23/2023 2:04 PM CDT): Continue trazodone same dosage. Well controlled. Assessment & Plan (01/15/2023 1:59 PM CDT): Continue trazodone at same dosage. Well controlled. Assessment & Plan (09/11/2022 3:44 PM JAVA WEB APPLICATION DEVELOPER): Continue trazodone Assessment & Plan (05/02/2022 11:04 AM CDT): Continue trazodone at same dosage. Well controlled. Assessment & Plan (12/13/2021 9:57 AM CDT): Continue trazodone at same dosage. Well controlled. Assessment & Plan (08/30/2021 7:26 AM JAVA WEB APPLICATION DEVELOPER): Continue trazodone at same dosage. Well controlled. Assessment & Plan (06/11/2021 1:30 PM CDT): Continue trazodone at same dosage. Well controlled. Assessment & Plan (02/08/2021 10:36 AM CDT): Continue trazodone at same dosage. Well controlled. Assessment & Plan (10/08/2020 10:31 AM JAVA WEB APPLICATION DEVELOPER): Improved. Continue trazodone 100 mg Assessment & Plan (09/10/2020 10:00 AM JAVA WEB APPLICATION DEVELOPER): Increase trazodone to 100 mg needs better [...] controlled. Assessment & Plan (08/05/2024 2:13 PM JAVA WEB APPLICATION DEVELOPER): Continue Lexapro at same dosage. Well controlled. Assessment & Plan (05/01/2024 12:21 PM CDT): Continue Lexapro at same dosage. Well controlled. Assessment & Plan (01/07/2024 4:04 PM CDT): Continue Lexapro at same dosage. Well controlled. Assessment & Plan (10/15/2023 11:35 AM JAVA WEB APPLICATION DEVELOPER): Continue Lexapro at same dosage. Well controlled. Assessment & Plan (06/23/2023 2:07 PM CDT): Continue Lexapro at same dosage. Well controlled. Assessment & Plan (01/15/2023 2:00 PM CDT): Continue Lexapro at same dosage. Well controlled. Assessment & Plan (09/11/2022 3:44 PM JAVA WEB APPLICATION DEVELOPER): Continue Lexapro at same dosage. Well controlled. Assessment & Plan (05/02/2022 11:00 AM CDT): Continue Lexapro at same dosage. Well controlled. Assessment & Plan (12/13/2021 9:57 AM CDT): Continue Lexapro at same dosage. Well controlled. Assessment & Plan (08/30/2021 7:26 AM JAVA WEB APPLICATION DEVELOPER): Continue Lexapro at same dosage. Well controlled. Assessment & Plan (06/11/2021 1:30 PM CDT): Continue Lexapro at same dosage. Well controlled. Assessment & Plan (02/08/2021 10:33 AM CDT): Continue Lexapro at same dosage. Well controlled. Assessment & Plan (11/09/2020 1:42 PM CDT): Continue Lexapro at same dosage. Well controlled. Assessment & Plan (09/09/2020 1:01 PM JAVA WEB APPLICATION DEVELOPER): Continue medication at same dosage. Well controlled. [...] drink = 0.6 oz pur e alcohol) [facility] Utilities Answer Date Recorded In the past [...] any clubs o r organizations such as restorationism groups, unions, fraternal or athletic groups, or [...] any time in the past 12 m [facility], were you homeless or living in a skilled nursing (including now)? No 10/13/2024 Personal Safety Answer [...] 02/20/2025 10:30 AM CDT Plan of Treatment Not on file Procedures [...] insulin (HCC) EGFR Routine 10/12/2024 5:05 AM JAVA WEB APPLICATION DEVELOPER COLONOSCOPY Routine 05/09/2024 7:50 AM CDT from Last 3 Months or Most Recently Relevant to Health Maintenance Results * (ABNORMAL) Cholesterol, LDL, direct (02/20/2025 11:17 AM CDT) LDL, direct 105(H) <100 mg/dL [facility] Comment: Desirable range <100 mg/dL for primary prevention; <70 mg/dL for patients with CHD or diabetic patients with > or = 2 CHD risk factors. Blood 02/20/2025 11:1 7 AM CDT 02/20/2025 11:17 AM CDT us Nathan Martinez MD LAB BLOOD ORDERABLES Final Result [facility] [address] [place] [address] * Albumin Creatinine Ratio, Urine (01/20/2025 11:16 [...] URINE ORDERABLES Final Result Performing Organization Address City/[facility]/ZIP Co de Phone Number [facility] [address] [place] [address] * Drug Monitor, Heroin Metab, QN, Urine (01/20/2025 10:52 AM CDT) Pathologist [facility] 6-Acetylmorphi ne, ur NEGATIVE <10 ng/mL [facility] Heroin Metab Comments [facility] Comment:See LDT Notes 01/20/2025 10:5 2 AM CDT 01/21/2025 6:01 AM CDT Nathan Martinez MD LAB URINE ORDERABLES Final Result Performing Organization Address [facility]/ZIP Co de Phone Number [facility] [address] [place] [address] * (ABNORMAL) Drug Monitor, Alcohol Metab, W/Conf, Urine (01/20/2025 10:52 AM CDT) Pathologist [facility] Alcohol Metabolites POSITIVE(A ) <500 ng/mL [facility] Ethyl Glucuronide (ETG) 14,558(H) <500 ng/mL [facility] Ethyl Sulfate (ETS) 1,720(H) <100 ng/mL [facility] Alcohol metabolites comments [facility] Comment:See Alcohol Metab No mariam, LDT Notes 01/20/2025 10:5 2 AM CDT 01/21/2025 6:01 AM CDT Nathan Martinez MD LAB URINE ORDERABLES Final Result Performing Organization Address City/[facility]/ZIP Co de Phone Number [facility] [address] [place] [address] * Drug Monitoring Template (01/20/2025 10:52 AM CDT) Notes and Comments [facility] Comment: This drug testing is [...] analytical performance characteristics have been determined by [facility]. It has not been cleared or approved by the FDA. This assay has been validated pursuant to the CLIA regulations and is used for clinical purposes. Healthcare Providers needing Interpretation assistance, please contact us at [phone] ( ) M-F, 8am to 10pm EST 01/20/2025 10:5 2 AM CDT 01/21/2025 6:01 AM CDT Nathan Martinez MD LAB URINE ORDERABLES Final Result [facility] [address] [place] [address] * (ABNORMAL) Drug Monitor,Panel 1 w/Conf, Urine (01/20/2025 10:52 AM CDT) Amphetamine, ur, quant NEGATIVE <500 ng/mL [facility] Barbiturates, ur NEGATIVE <300 ng/mL [facility] Benzodiazepines NEGATIVE <100 ng/mL [facility] Cocaine metabolite NEGATIVE <150 ng/mL [facility] Marijuana Metabolite POSITIVE(A) <20 ng/mL [facility] Marijuana Metabolite 16(H) <5 ng/mL [facility] Marijuana Comments [facility] Comment:See Marijuana Notes, LDT Notes Methadone Metabolite NEGATIVE <100 ng/mL [facility] Opiates POSITIVE(A) <100 ng/mL [facility] Codeine NEGATIVE <50 ng/mL [facility] Hydrocodone 4,562(H) <50 ng/mL [facility] Hydromorphone 163(H) <50 ng/mL [facility] Morphine NEGATIVE <50 ng/mL [facility] Norhydrocodone 4,808(H) <50 ng/mL [facility] Opiates Comments [facility] Comment:See Opiates Notes, L DT Notes Oxycodone NEGATIVE <100 ng/mL [facility] Phencyclidine NEGATIVE <25 ng/mL [facility] Creatinine 120.3 > or = 20.0 mg/dL [facility] pH, ur 5.5 4.5 - 9.0 [facility] Oxidant NEGATIVE <200 mcg/mL [facility] 01/20/2025 10:5 2 AM CDT 01/21/2025 6:01 AM CDT us Nathan Martinez MD LAB URINE ORDERABLES Final Result Performing Organization Address City/[facility]/ZIP Co de Phone Number [facility] [address] [place] [address] * XR Spine Lumbar 4 or More [...] Rufino Wasserman M.D. MF: MIKE Report ID: [id number] Reading Location: [id number] Procedure Note Rufino Wasserman MD - 12/19/2024 [...] Rufino Wasserman M.D. MF: MIKE Report ID: [id number] Reading Location: [id number] Nathan Martinez MD IMG XR PROCEDURES Final Re sult * (ABNORMAL) POCT hemoglobin A1c (11/14/2024 11:39 AM CDT) Hemoglobin A1C, POC 7.4 4.0 - 5.6 % Blood 11/14/2024 11:3 9 AM CDT Nathan Martinez MD POINT OF CARE TEST ORDERAB LES Final Result * eGFR (10/12/2024 5:05 AM JAVA WEB APPLICATION DEVELOPER) eGFR 89 >=60 mL/min/1. 73 m2 Comment: [...] was last reviewed 2021. Testing performed by: [facility], [address] [place] [address]., [id number] Blood 10/12/2024 5:05 AM JAVA WEB APPLICATION DEVELOPER 10/12/2024 5:34 AM JAVA WEB APPLICATION DEVELOPER Baldomero Sung MD LAB BLOOD ORDERABLES Final Result Performing Organization Address City/State/[facility] Co de Phone Number [facility] [address] [facility] Department [place] [address] * (ABNORMAL) Colonoscopy (05/09/2024 7:50 AM CDT) Anatomical Region Laterality Modality Other Camryn Provider ENDOSCOPY PROCEDURES Marilee l Result from Last 3 Months or Most Recently Relevant to Health Maintenance Insurance [address] CLAIMS [address] CLAIMS [address] CLAIMS Advance Directives For more information, please contact: [phone] * Full Code (Latest Code Status on File) Date Activated Date Inactivated Comments 10/12/2024 2:05 AM 10/15/2024 5:49 PM Care Teams Gunnery/Ordnance Officer Relationship Specialty Start Date End Date Nathan Martinez MD PCP - General Family Practice 09/10/20 Monique Garcia MD Referring Physician Gastroenterology 06/11/20 Monique Garica MD Referring Physician Gastroenterology 06/11/20
[2025-03-08 00:46] VITALS: BP 133/79; PULSE 97; RESP 18; O2SAT 96
--- NOTE | 2025-03-08 00:57 | ED_ITS ---
HPI - Abdominal Pain General Chief Complaint: Abdominal Pain Stated Complaint: severe abdominal pain Time Seen by Provider: 03/08/25 00:47 History of Present Illness HPI narrative: 55-year-old male with history of multiple abdominal surgeries including previous small-bowel obstruction from adhesions, previous bowel resection for diverticulitis, appendicitis status post appendectomy, cholecystitis status post cholecystectomy. Patient presents to the emergency department with abdominal pain for last 4 days worsening today with last bowel movement being this morning with decreased stool output. States he has had some nauseousness without vomiting. Does have Zofran at home. States this belly pain feels very similar to his previous bowel obstructions. Patient states he gets flare ups of similar feeling abdominal pain every few months and attributed to his adhesions. No recent abdominal surgeries. No recent antibiotics. No fever, chills, or any reported chest pain/shortness of breath. Related Data Home Medications ?Medication ?Instructions ?Recorded ?Confirmed ?Last Taken ?Type escitalopram oxalate 20 mg tablet 20 mg PO DAILY 07/18/21 08/27/24 08/25/24 History modafinil 100 mg tablet 100 mg PO DAILY PRN Systemic Signs 07/18/21 08/27/24 08/18/24 History And Symptoms trazodone 100 mg tablet 100 mg PO HS 07/18/21 08/27/24 08/25/24 History famotidine 20 mg tablet (Pepcid AC) 20 mg PO DAILY PRN Indigestion 02/02/23 08/27/24 Unknown History semaglutide 1 mg/dose (4 mg/3 mL) 1 mg subcut WEEKLY 08/27/24 08/27/24 08/21/24 History subcutaneous pen injector (Ozempic) Allergies Allergy/AdvReac Type Severity Reaction Status Date / Time gabapentin Allergy Anxiety Verified 11/10/24 20:18 ketorolac (From Toradol) Allergy Hives Verified 11/10/24 20:18 promethazine (From Phenergan) Allergy Anxiety Verified 11/10/24 20:18 zolpidem (From Ambien) AdvReac Other Verified 11/10/24 20:18 Review of Systems 2 Review of Systems: As reviewed above in HPI [facility] Past Medical History Medical History Posttraumatic stress disorder Type 2 diabetes mellitus History of small bowel obstruction Depression Diverticulitis Surgical History Surgical History History of orthopedic surgery Right ankle and hand surgery. History of laparoscopic appendectomy Status post laparoscopic Ludmila fundoplication History of laparoscopic cholecystectomy History of exploratory laparotomy With adhesiolysis for small bowel obstruction 3-4 years ago in [place]. History of colon resection Sigmoid colon resection for diverticulitis 6-7 years ago in [place]. Family History Family History Father Heart disease Grandparent Lung cancer Social History Social History Social History: Surrogate medical decision maker: Annelise Garcia, significant other. Code status: Full code. Smoking status: Never smoker Alcohol intake: never Substance use: never Substance use type: does not use Do You Feel Safe in your Home?: Yes Lack of Transportation: No Lack of Food: Never True Current Housing: I Have Housing Concerned About Future Housing: No Difficulty Paying Gas/Electric Bills: No Difficulty Paying for Meds: No Currently Unemployed: No Education: High School Diploma/GED Difficulty w/ Childcare or Family Care: No Additional living arrangements comments: Lives in [place] with significant other. He has 1 son. Additional occupation/education comments: Served in the [employer]. 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 Spiritual care concerns: No Exam 2 Narrative: GENERAL: [Well-appearing, well-nourished, and in no acute distress.] HEAD: [Normocephalic, atraumatic.] EYES: [PERRLA and EOMI.] ENT: Nares clear, no rhinorrhea or epistaxis. Mucous membranes moist. NECK: Supple. CHEST: [Clear to auscultation. No respiratory distress.] HEART: [Regular rate and rhythm]. No murmur heard. [Normal peripheral pulses.] ABDOMEN: Soft and nondistended, tender to palpation in the periumbilical region, previous surgical scars evident, no rigidity or guarding, no signs of peritonitis, no overlying skin changes EXTREMITIES: Normal range of motion. [No edema.] SKIN: Warm, dry, no rash. NEURO: [No focal deficits]. Alert and oriented [x3.] PSYCH: [Normal mood and affect.] Course Vital Signs Vital signs: Vital Signs Temperature 36.7 C 03/08/25 00:36 Pulse Rate 97 03/08/25 00:36 Respiratory Rate 18 03/08/25 00:36 Blood Pressure 136/83 03/08/25 00:36 Pulse Oximetry 97 03/08/25 00:36 Oxygen Delivery Room Air 03/08/25 00:36 Temperature 36.7 C 03/08/25 00:36 Pulse Rate 73 03/08/25 05:11 Respiratory Rate 18 03/08/25 05:11 Blood Pressure 128/85 03/08/25 05:11 Pulse Oximetry 97 03/08/25 05:11 Oxygen Delivery Room Air 03/08/25 00:46 MDM - Abdominal Pain MDM Narrative Medical decision making narrative: 55-year-old male with history of multiple abdominal surgeries including previous small-bowel obstruction from adhesions, previous bowel resection for diverticulitis, appendicitis status post appendectomy, cholecystitis status post cholecystectomy. Patient presents to the emergency department with abdominal pain for last 4 days worsening today with last bowel movement being this morning with decreased stool output. States he has had some nauseousness without vomiting. Does have Zofran at home. States this belly pain feels very similar to his previous bowel obstructions. Patient states he gets flare ups of similar feeling abdominal pain every few months and attributed to his adhesions. No recent abdominal surgeries. No recent antibiotics. No fever, chills, or any reported chest pain/shortness of breath. Patient does appear slightly uncomfortable and does have a mildly tender abdomen in the periumbilical region. No appreciable masses or rebound/guarding. Normal vital signs with any fever, hypoxia, tachycardia, blood pressure concerns. Given patient's significant abdominal surgical history differential remains broad but does include small-bowel obstruction, ileus, gastroenteritis, colitis, intra-abdominal infection or abscess, no gallbladder or appendix left. Possibility of diverticulitis given his history as well. He was given fluids, morphine and Zofran and broad workup was ordered including CBC, CMP, lipase, urinalysis and a CT scan of the abdomen and pelvis with contrast. Patient re- evaluated after therapies. Patient did have some initial improvement in pain but had a recurrence requiring additional analgesic medications with good effect. CT scan was independently reviewed and also interpreted by radiology with no acute abnormalities in the chest abdomen or pelvis on the CT scan with no evidence of any bowel obstructions. Previous sigmoidectomy changes as well as appendectomy cholecystectomy changes but no acute process. Laboratory studies are all normal, vital signs are stable. He can be discharged home at this time with regular primary care provider follow-up in given [facility] upon discharge for abdominal pain. He is requesting a general surgeon to follow up with given his previous surgical history and recurrent pain and this will be provided upon discharge as well. Medical Records Attestation: I reviewed the patient's medical records. Lab Data Attestation: I reviewed the patient's lab results. 03/08/25 01:01 03/08/25 01:01 Labs: Lab Results 03/08/25 03/08/25 Range/Units 01:01 01:56 WBC 6.9 (4.5-10.0) K/mm3 RBC 5.18 (4.6-6.20) M/mm3 Hgb 13.6 L (14.0-18.0) g/dL Hct 41.5 L (42.0-52.0) % MCV 80.1 (80-100) fl MCH 26.3 (26-34) pg MCHC 32.8 (32-36) g/dl RDW 14.0 (11.5-14.5) % Plt Count 245 (150-375) k/mm3 MPV 8.8 (7.4-10.4) fl Immature Gran % (Auto) 0.1 (0-0.5) % Neut % (Auto) 57.8 (45.5-73.1) % Lymph % (Auto) 34.1 (18.3-44.2) % Mcclain % (Auto) 7.1 (2.6-8.5) % Eos % (Auto) 0.6 (0-4.4) % Baso % (Auto) 0.3 (0.2-1.2) % Lymph # (Auto) 2.34 (0.9-3.2) K/mm3 Mcclain # (Auto) 0.5 (0.1-0.6) K/mm3 Eos # (Auto) 0.0 (0-0.3) K/mm3 Baso # (Auto) 0.0 (0.0-0.1) K/mm3 Abs Immat Gran (auto) 0.01 (0.00-0.031) K/mm3 Absolute Neuts (auto) 4.0 (1.3-6.7) K/mm3 Absolute Nucleated RBC 0.000 (0.0-0.012) K/mm3 Nucleated RBC % 0.0 (0.0-0.2) % Sodium 136 L (137-145) mmol/L Potassium 3.8 (3.4-5.0) mmol/L Chloride 101 (98-107) mmol/L Carbon Dioxide 24 (22-30) mmol/L Anion Gap 11 (4-12) mmol/L BUN 12 (9-20) mg/dL Creatinine 0.94 (0.7-1.3) mg/dL Estim Creat Clear Calc 82 ml/min Estimated GFR > 60 (59 - ) Glucose 210 H (65-110) mg/dL Calcium 9.6 (8.4-10.2) mg/dL Total Bilirubin 0.3 (0.2-1.3) mg/dL AST 33 (17-59) U/L ALT 33 (6-50) U/L Alkaline Phosphatase 42 (38-126) U/L Total Protein 8.2 (6.3-8.2) g/dL Albumin 4.5 (3.5-5.1) g/dL Lipase 258 (23-300) U/L Urine Color Yellow (Yellow) Urine Appearance Clear (Clear) Urine pH 5.5 (5.0-9.0) Ur Specific [place] 1.008 (1.001-1.035) Urine Protein Negative (Negative) mg/dL Urine Glucose (UA) 1+ H (Negative) mg/dL Urine Ketones Negative (Negative) mg/dL Ur Blood (Man) Negative (Negative) Urine Nitrate Negative (Negative) Urine Bilirubin Negative (Negative) Urine Urobilinogen 0.2 (<2.0) mg/dL Leukocyte Esterase Rfl Negative (Negative) DESTINEY/UL Imaging Data Attestation: I personally reviewed and interpreted this imaging study as follows: My impression: No acute abnormalities in the chest abdomen or pelvis. No evidence of bowel obstruction. Discharge Plan Discharge Clinical Impression: Abdominal pain, History of small bowel obstruction, History of appendectomy, History of cholecystectomy Patient Disposition: Home Condition: Stable Instructions: Antibiotic Form, Abdominal Pain (ED) Additional Instructions: CT scan shows no acute findings or abnormalities in the chest abdomen or pelvis and no evidence of bowel obstructions. Laboratory studies are all reassuring without any signs of organ disease, damage, or infection. Your abdominal pain could be related to underlying adhesions but no urgent or emergent concerns are found today. We will send you home with dicyclomine for abdominal cramping and pain. Follow-up with your primary care provider and we have also provided you a general surgeon to contact for follow-up as needed given the surgical history. Patient Language: Latvian Prescriptions: No Action trazodone 100 mg tablet 100 mg PO HS modafinil 100 mg tablet 100 mg PO DAILY PRN (Reason: Systemic Signs And Symptoms) Rx Instructions: Takes for ADD escitalopram oxalate 20 mg tablet 20 mg PO DAILY Ozempic 1 mg/dose (4 mg/3 mL) pen injector 1 mg subcut WEEKLY ondansetron 4 mg tablet,disintegrating 4 mg PO Q4H 0 Days Qty: 10 0RF Rx Instructions: give 1st dose 30min before emetogenic chemo dicyclomine 20 mg tablet 20 mg PO QID Qty: 20 0RF famotidine [Pepcid AC] 20 mg tablet 20 mg PO DAILY PRN (Reason: Indigestion) sennosides-docusate sodium [Senokot-S] 8.6-50 mg Tablet 1 tab PO Q12HR PRN (Reason: constipation) Qty: 60 0RF docusate sodium 100 mg Capsule 100 mg PO Q12HR PRN (Reason: constipation) Qty: 60 0RF ondansetron 4 mg tablet,disintegrating 4 mg PO Q6H PRN (Reason: nausea and vomiting) Qty: 30 0RF ondansetron 4 mg tablet,disintegrating 4 mg PO Q8H Qty: 14 0RF ondansetron 4 mg tablet,disintegrating 4 mg PO Q6H PRN (Reason: nausea and vomiting) Qty: 7 0RF docusate sodium 100 mg capsule 100 mg PO BID Qty: 60 0RF polyethylene glycol 3350 17 gram/dose powder 17 g PO DAILY Qty: 238 0RF ondansetron 4 mg tablet,disintegrating 4 mg PO Q8H Qty: 14 0RF omeprazole magnesium [Prilosec OTC] 20 mg tablet,delayed release (DR/EC) 20 mg PO DAILY Qty: 10 0RF Follow-up/Referrals: Juan,Nathan Ramos MD [Primary Care Provider] - Cruz Garcia DO [Physician] - 2 Weeks (Multiple abdominal surgeries, pain from adhesions) Time of Disposition: 05:01
--- OUTSIDE RECORDS SUMMARY | 2025-03-08 00:59 | XMS_ITS | CCD ---
Author Name Interface, [id number] lity Address [address] [place] [address] [facility], LAN Address [address] [place] [address] Care Team Providers Care Armhole Feller Handstitching Machine Name Role Phone Darien GUNN, Mata James [...]
--- OUTSIDE RECORDS SUMMARY | 2025-03-08 00:59 | XMS_ITS ---
Author Name Interface, [id number] lity Address [address] [place] [address] [facility] mcintosh Address [address] [place] [address] Allergies and Adverse Reactions Medication/Group Name Reaction [...]
--- OUTSIDE RECORDS SUMMARY | 2025-03-08 00:59 | XMS_ITS | Encounter Summary ---
Author Organization [facility] Healthcare Address [address] [place] [id number] Care Team Providers Care Auto Mechanic Supervisor Name Role Phone Monique Garcia MD Unavailable [phone] Monique Garcia MD Unavailable [phone] Nathan Martinez MD Primary Care Provider [phone] Encounter Details Date Type Department Care Team (Late st Contact Info) Description 02/21/2025 Results Follow-Up [facility] Primary Care [address] [place] [address] Nathan Martinez MD [address] [place] [address] Cholesterol, LDL, direct Social History Tobacco Use Types Packs/Day Years Used Date Smoking Tobacco: Never Smokeless Tobacco: Current Chew Comments:advised to quit 1 c an of chew per week since 1994 Alcohol Use Standard Drinks/Week Comments Not Currently 0 (1 standard drink = 0.6 oz pur e alcohol) [facility] Utilities Answer Date Recorded In the past 12 months has [employer], gas, oil, or water company threatened to [...] week 10/13/2024 How often do you attend [facility] or adventism services? Never 10/13/2024 Do you belong to [...] the past 12 m [facility], were you homeless or living in a custodial (including now)? No 10/13/2024 Personal Safety Answer [...] 02/21/2025 8:13 AM CDT Patient advised via [employer]. documented in this encounter Plan of Treatment Not on file documented as of this encounter Visit Diagnoses Not on filedocumented in this encounter Care Teams Auto Mechanic Supervisor Relationship Specialty Start Date End Date Nathan Martinez MD PCP - General Family Practice 09/10/20 Monique Garcia MD Referring Physician Gastroenterology 06/11/20 Monique Garcia MD Referring Physician Gastroenterology 06/11/20 documented as of this encounter
--- OUTSIDE RECORDS SUMMARY | 2025-03-08 00:59 | XMS_ITS | CCD ---
Author Name Interface, [id number] lity Address [address] [place] [address] [facility], [facility] Address [address] [place] [address] Care Team Providers Care Enterostomal Therapy Nurse Name Role Phone Darien GUNN, Mata Jmaes le Allergies and Adverse Reactions Medication/Group Name [...]
--- OUTSIDE RECORDS SUMMARY | 2025-03-08 00:59 | XMS_ITS | Referral Summary ---
Author Organization [facility] Address [address] [place] [address] Care Team Providers Care Roller Helper Name Role Phone Monique Garcia MD Unavailable [phone] Monique Garcia MD Unavailable [phone] Nathan Martinez MD Primary Care Provider [phone] Encounters Date Type Department Care Team Description 02/21/2025 Results Follow-Up [facility] [address] [place] [address] Nathan Martinez MD Cholesterol, LDL, direct 02/20/2025 10:45 AM CDT Office Visit [facility] [address] [place] [address] Nathan Martinez MD Lumbar radiculopathy (Primary Dx); Mixed hyperlipidemia; Screening PSA (prostate specific antigen); Alcohol abuse; Type 2 diabetes mellitus with hyperglycemia, without long-term current use of insulin ([facility]) 01/25/2025 Results Follow-Up [facility] [address] [place] [address] Nathan Martinez MD Albumin Creatinine Ratio, Urine 01/20/2025 11:00 AM CDT Office Visit [facility] [address] [place] [address] Nathan Martinez MD Lumbar radiculopathy (Primary Dx); Type 2 diabetes mellitus with hyperglycemia, without long-term current use of insulin ([facility]); Major depression in remission; Attention deficit hyperactivity disorder (ADHD), predominantly inattentive type; Psychophysiologic insomnia; High risk medication use; Encounter for drug screening 12/19/2024 Results Follow-Up [facility] [address] [place] [address] Nathan Martinez MD XR Spine Lumbar 4 or More Views 12/19/2024 10:18 AM CDT - 12/19/2024 11:59 PM CDT Hospital Encounter [facility] [address] [place] [address] Lumbar radiculopathy Discharge Disposition: Discharge to home or self care 12/19/2024 11:15 AM CDT Office Visit [facility] [address] [place] [address] Nathan Martinez MD Lumbar radiculopathy (Primary Dx); Major depression in remission; Attention deficit hyperactivity disorder (ADHD), predominantly inattentive type; Type 2 diabetes mellitus with hyperglycemia, without long-term current use of insulin ([facility]) from Last 3 Months Allergies Active Allergy [...] today with results pending. Slight relief with Dunfermline 5 mg. We will increase dosage to [...] mg Assessment & Plan (10/15/2023 11:29 AM ARMOR RECONNAISSANCE VEHICLE DRIVER): A1c today . Continue glipizide/Trulicity at same [...] 09/12/2022 Assessment & Plan (09/12/2022 9:35 AM ARMOR RECONNAISSANCE VEHICLE DRIVER): Some tinnitus for 2 months. Possible hearing loss. Ear canals normal today drums normal ENT refer Lipidemia 09/11/2022 Assessment & Plan (02/20/2025 11:05 AM CDT): Continue atorvastatin at same dosage. Well controlled. Needs repeat lipids Assessment & Plan (11/11/2024 2:33 PM CDT): Continue atorvastatin but needs repeat lipids Assessment & Plan (08/05/2024 2:15 PM ARMOR RECONNAISSANCE VEHICLE DRIVER): Continue atorvastatin same dosage. Needs repeat lipid Assessment & Plan (05/01/2024 12:22 PM CDT): Needs repeat lipids. Continue atorvastatin at same dose. Assessment & Plan (01/07/2024 4:08 PM CDT): Continue atorvastatin same dosage but needs repeat lipids. Assessment & Plan (10/15/2023 11:35 AM ARMOR RECONNAISSANCE VEHICLE DRIVER): Continue atorvastatin at same dosage. Well controlled. Assessment & Plan (06/23/2023 2:03 PM CDT): Continue Lipitor same dosage but needs repeat lipids. Assessment & Plan (01/15/2023 1:58 PM CDT): Continue atorvastatin same dosage but needs repeat lipids Assessment & Plan (09/11/2022 3:45 PM ARMOR RECONNAISSANCE VEHICLE DRIVER): Continue atorvastatin same dosage Acute left ankle [...] counseling. Assessment & Plan (10/15/2023 12:07 PM ARMOR RECONNAISSANCE VEHICLE DRIVER): Diabetic foot exam: Left monofilament exam: normal [...] surgeon Assessment & Plan (09/02/2021 8:59 AM ARMOR RECONNAISSANCE VEHICLE DRIVER): Pain most recently is in the right [...] 09/02/2021 Assessment & Plan (09/02/2021 9:00 AM ARMOR RECONNAISSANCE VEHICLE DRIVER): Refer to Dermatology Chronic abdominal pain 08/30/2021 Assessment & Plan (05/02/2024 3:02 PM CDT): History of multiple adhesions and several times he has had to had bowel obstruction treated. Constant pain. Worse about 30 minutes after eating. Referral to GI. Left lower quadrant Assessment & Plan (09/16/2021 9:44 AM ARMOR RECONNAISSANCE VEHICLE DRIVER): Try peppermint oil pill daily. Discontinue Levbid. Refer to GI. Needs colonoscopy. Assessment & Plan (09/02/2021 8:59 AM ARMOR RECONNAISSANCE VEHICLE DRIVER): Previous pain is similar to this pain [...] controlled. Assessment & Plan (08/05/2024 2:14 PM ARMOR RECONNAISSANCE VEHICLE DRIVER): Continue Provigil at same dosage. Well controlled. Return 3 months Assessment & Plan (05/01/2024 12:20 PM CDT): Continue Provigil at same dosage. Well controlled. Return 3 months Assessment & Plan (01/07/2024 4:03 PM CDT): Continue Provigil at same dosage. Well controlled. Assessment & Plan (10/16/2023 1:08 PM ARMOR RECONNAISSANCE VEHICLE DRIVER): Takes Provigil off-label. Adequate control with medicine. [...] usage. Assessment & Plan (09/13/2021 9:27 AM ARMOR RECONNAISSANCE VEHICLE DRIVER): Continue modafinil at same dosage. Well controlled. No signs of toxicity and patient understands this is off-label treatment Assessment & Plan (08/30/2021 7:27 AM ARMOR RECONNAISSANCE VEHICLE DRIVER): Allow modafinil as no evidence of toxicity and evidence of benefit Assessment & Plan (06/11/2021 1:30 PM CDT): Continue Provigil at same dosage. Well controlled. Assessment & Plan (02/08/2021 10:32 AM CDT): Continue modafinil at same dosage. Well controlled. Assessment & Plan (11/09/2020 1:42 PM CDT): Allow modafinil but understands off-label Assessment & Plan (10/08/2020 10:45 AM ARMOR RECONNAISSANCE VEHICLE DRIVER): Previously diagnosed with this by psychiatrist [place]. good response previously to modafinil but I [...] PFTs Assessment & Plan (10/08/2020 10:46 AM ARMOR RECONNAISSANCE VEHICLE DRIVER): Much improved Assessment & Plan (09/10/2020 10:03 AM ARMOR RECONNAISSANCE VEHICLE DRIVER): Mainly with exertion and will refer to [...] disease Assessment & Plan (10/08/2020 10:45 AM ARMOR RECONNAISSANCE VEHICLE DRIVER): Much improved Assessment & Plan (09/10/2020 9:58 AM ARMOR RECONNAISSANCE VEHICLE DRIVER): Persisting cough and will refer to Pulmonary for Rash 09/10/2020 Assessment & Plan (10/08/2020 10:45 AM ARMOR RECONNAISSANCE VEHICLE DRIVER): Much improved Assessment & Plan (09/10/2020 10:02 AM ARMOR RECONNAISSANCE VEHICLE DRIVER): There is a dry Pash of eczematoid type rash on his back that is different than psoriasis he has other areas. We will give him some topical hydrocortisone cream but not to use longer than 2 weeks as risk of atrophy and tolerance. Nasal polyp 09/10/2020 Assessment & Plan (09/10/2020 10:07 AM ARMOR RECONNAISSANCE VEHICLE DRIVER): ENT referral Anemia 09/09/2020 Assessment & Plan (09/09/2020 1:03 PM ARM[employer] RECONNAISSANCE VEHICLE DRIVER): Needs iron studies and methylmalonic acid level. [...] months. Assessment & Plan (08/08/2024 11:33 AM ARMOR RECONNAISSANCE VEHICLE DRIVER): A1c today. Is improved at 7.0. Continue [...] controlled. Assessment & Plan (09/11/2022 3:47 PM ARMOR RECONNAISSANCE VEHICLE DRIVER): A1C TODAY.BMI Follow-up includes: nutrition counseling and [...] weekly Assessment & Plan (09/16/2021 9:43 AM ARMOR RECONNAISSANCE VEHICLE DRIVER): A1c today. Diabetes needing better control. No hypoglycemic symptoms. Metformin, Jardiance, and glipizide daily. No significant improvement and will add Trulicity 0.75 mg weekly Assessment & Plan (08/30/2021 7:25 AM ARM[employer] RECONNAISSANCE VEHICLE DRIVER): A1c today. Assessment & Plan (06/17/2021 10:38 [...] today. Assessment & Plan (10/08/2020 10:42 AM ARMOR RECONNAISSANCE VEHICLE DRIVER): Check fasting blood sugar today. Result is 415 no he has had better sugars at home. No hypoglycemic symptoms will increase Jardiance to 25 mg daily as he has had no side effects. Assessment & Plan (09/10/2020 9:58 AM ARMOR RECONNAISSANCE VEHICLE DRIVER): Needs better control. Medication options discussed. Risk [...] controlled. Assessment & Plan (10/15/2023 11:36 AM ARMOR RECONNAISSANCE VEHICLE DRIVER): Continue trazodone at same dosage. Well controlled. Assessment & Plan (06/23/2023 2:04 PM CDT): Continue trazodone same dosage. Well controlled. Assessment & Plan (01/15/2023 1:59 PM CDT): Continue trazodone at same dosage. Well controlled. Assessment & Plan (09/11/2022 3:44 PM ARMOR RECONNAISSANCE VEHICLE DRIVER): Continue trazodone Assessment & Plan (05/02/2022 11:04 AM CDT): Continue trazodone at same dosage. Well controlled. Assessment & Plan (12/13/2021 9:57 AM CDT): Continue trazodone at same dosage. Well controlled. Assessment & Plan (08/30/2021 7:26 AM ARMOR RECONNAISSANCE VEHICLE DRIVER): Continue trazodone at same dosage. Well controlled. Assessment & Plan (06/11/2021 1:30 PM CDT): Continue trazodone at same dosage. Well controlled. Assessment & Plan (02/08/2021 10:36 AM CDT): Continue trazodone at same dosage. Well controlled. Assessment & Plan (10/08/2020 10:31 AM ARMOR RECONNAISSANCE VEHICLE DRIVER): Improved. Continue trazodone 100 mg Assessment & Plan (09/10/2020 10:00 AM ARMOR RECONNAISSANCE VEHICLE DRIVER): Increase trazodone to 100 mg needs better [...] controlled. Assessment & Plan (08/05/2024 2:13 PM ARMOR RECONNAISSANCE VEHICLE DRIVER): Continue Lexapro at same dosage. Well controlled. Assessment & Plan (05/01/2024 12:21 PM CDT): Continue Lexapro at same dosage. Well controlled. Assessment & Plan (01/07/2024 4:04 PM CDT): Continue Lexapro at same dosage. Well controlled. Assessment & Plan (10/15/2023 11:35 AM ARMOR RECONNAISSANCE VEHICLE DRIVER): Continue Lexapro at same dosage. Well controlled. Assessment & Plan (06/23/2023 2:07 PM CDT): Continue Lexapro at same dosage. Well controlled. Assessment & Plan (01/15/2023 2:00 PM CDT): Continue Lexapro at same dosage. Well controlled. Assessment & Plan (09/11/2022 3:44 PM ARMOR RECONNAISSANCE VEHICLE DRIVER): Continue Lexapro at same dosage. Well controlled. Assessment & Plan (05/02/2022 11:00 AM CDT): Continue Lexapro at same dosage. Well controlled. Assessment & Plan (12/13/2021 9:57 AM CDT): Continue Lexapro at same dosage. Well controlled. Assessment & Plan (08/30/2021 7:26 AM ARMOR RECONNAISSANCE VEHICLE DRIVER): Continue Lexapro at same dosage. Well controlled. Assessment & Plan (06/11/2021 1:30 PM CDT): Continue Lexapro at same dosage. Well controlled. Assessment & Plan (02/08/2021 10:33 AM CDT): Continue Lexapro at same dosage. Well controlled. Assessment & Plan (11/09/2020 1:42 PM CDT): Continue Lexapro at same dosage. Well controlled. Assessment & Plan (09/09/2020 1:01 PM ARMOR RECONNAISSANCE VEHICLE DRIVER): Continue medication at same dosage. Well controlled. [...] drink = 0.6 oz pur e alcohol) [facility] Utilities Answer Date Recorded In [...] often do you attend chur ch or methodist services? Never 10/13/2024 Do you belong to any clubs o r organizations such as baptist groups, unions, fraternal or athletic groups, or [...] time in the past 12 m [facility], were you homeless or living in a [...] insulin (HCC) EGFR Routine 10/12/2024 5:05 AM ARMOR RECONNAISSANCE VEHICLE DRIVER COLONOSCOPY Routine 05/09/2024 7:50 AM CDT from [...] LAB BLOOD ORDERABLES Final Result [facility] [address] [place] [address] * Albumin Creatinine Ratio, Urine (01/20/2025 11:16 [...] URINE ORDERABLES Final Result Performing Organization Address City/[facility]/ZIP Co de Phone Number [facility] [address] [place] [address] * Drug Monitor, Heroin Metab, QN, Urine (01/20/2025 10:52 AM CDT) Pathologist [facility] 6-Acetylmorphi ne, ur NEGATIVE <10 ng/mL [facility] Heroin Metab Comments [facility] Comment:See LDT Notes 01/20/2025 10:5 2 AM CDT 01/21/2025 6:01 AM CDT Nathan Martinez MD LAB URINE ORDERABLES Final Result Performing Organization Address [facility]/ZIP Co de Phone Number [facility] [address] [place] [address] * (ABNORMAL) Drug Monitor, Alcohol Metab, W/Conf, Urine (01/20/2025 10:52 AM CDT) Pathologist [facility] Alcohol Metabolites POSITIVE(A ) <500 ng/mL [facility] [...] URINE ORDERABLES Final Result Performing Organization Address City/[facility]/ZIP Co de Phone Number [facility] [address] [place] [address] * Drug Monitoring Template (01/20/2025 10:52 AM CDT) Notes and Comments Q [facility] Comment: This drug testing is [...] analytical performance characteristics have been determined by [employer]. It has not been cleared or approved by the FDA. This assay has been validated pursuant to the CLIA regulations and is used for clinical purposes. Healthcare Providers needing Interpretation assistance, please contact us at [phone] ( ) M-F, 8am to 10pm EST 01/20/2025 10:5 2 AM CDT 01/21/2025 6:01 AM CDT Nathan Martinez MD LAB URINE ORDERABLES Final Result [facility] [address] [place] [address] * (ABNORMAL) Drug Monitor,Panel 1 w/Conf, Urine (01/20/2025 10:52 AM CDT) Amphetamine, ur, quant NEGATIVE <500 ng/mL [facility] Barbiturates, ur NEGATIVE <300 ng/mL [facility] Benzodiazepines NEGATIVE <100 ng/mL [facility] Cocaine metabolite NEGATIVE <150 ng/mL [facility] Marijuana Metabolite POSITIVE(A) <20 ng/mL [facility] Marijuana Metabolite 16(H) <5 ng/mL [facility] Marijuana Comments [facility] Comment:See Marijuana Notes, LDT Notes Methadone Metabolite NEGATIVE <100 ng/mL [facility] Opiates POSITIVE(A) <100 ng/mL [facility] Codeine NEGATIVE <50 ng/mL [facility] Hydrocodone 4,562(H) <50 ng/mL [facility] Hydromorphone 163(H) <50 ng/mL [facility] Morphine NEGATIVE <50 ng/mL [facility] Norhydrocodone 4,808(H) <50 ng/mL [facility] Opiates Comments [facility] Comment:See Opiates Notes, L DT Notes Oxycodone NEGATIVE <100 ng/mL [facility] Phencyclidine NEGATIVE <25 ng/mL [facility] Creatinine 120.3 > or = 20.0 mg/dL [facility] pH, ur 5.5 4.5 - 9.0 [facility] Oxidant NEGATIVE <200 mcg/mL [facility] 01/20/2025 10:5 2 AM CDT 01/21/2025 6:01 AM CDT us Nathan Martinez MD LAB URINE ORDERABLES Final Result Performing Organization Address City/[facility]/ZIP Co de Phone Number [facility] [address] [place] [address] * XR Spine Lumbar 4 or More [...] Rufino Wasserman M.D. MF: MIKE Report ID: [id number] Reading Location: [id number] Procedure Note Rufino Wasserman MD - 12/19/2024 [...] Rufino Wasserman M.D. MF: MIKE Report ID: [id number] Reading Location: [id number] Nathan Martinez MD IMG XR PROCEDURES Final Re sult * (ABNORMAL) POCT hemoglobin A1c (11/14/2024 11:39 AM CDT) Hemoglobin A1C, POC 7.4 4.0 - 5.6 % Blood 11/14/2024 11:3 9 AM CDT Nathan Martinez MD POINT OF CARE TEST ORDERAB LES Final Result * eGFR (10/12/2024 5:05 AM ARMOR RECONNAISSANCE VEHICLE DRIVER) eGFR 89 >=60 mL/min/1. 73 m2 Comment: [...] was last reviewed 2021. Testing performed by: [facility], [address] [place] [address]., [id number] Blood 10/12/2024 5:05 AM ARMOR RECONNAISSANCE VEHICLE DRIVER 10/12/2024 5:34 AM ARMOR RECONNAISSANCE VEHICLE DRIVER Baldomero Sung MD LAB BLOOD ORDERABLES Final Result Performing Organization Address City/State/[facility] Co de Phone Number [facility] [address] [facility] Department [place] [address] * (ABNORMAL) Colonoscopy (05/09/2024 7:50 AM CDT) Anatomical Region Laterality Modality Other Camyrn Provider ENDOSCOPY PROCEDURES Marilee l Result from Last 3 Months or Most Recently Relevant to Health Maintenance Insurance [id number] CLAIMS [address] CLAIMS [address] CLAIMS Advance Directives For more information, please contact: [phone] * Full Code (Latest Code Status on File) Date Activated Date Inactivated Comments 10/12/2024 2:05 AM 10/15/2024 5:49 PM Care Teams Roller Helper Relationship Specialty Start Date End Date Nathan Martinez MD PCP - General Family Practice 09/10/20 Monique Garcia MD Referring Physician Gastroenterology 06/11/20 Mnoique Garcia MD Referring Physician Gastroenterology 06/11/20
--- OUTSIDE RECORDS SUMMARY | 2025-03-08 00:59 | XMS_ITS | Encounter Summary ---
Author Organization [facility] Healthcare Address [address] [place] [address] Care Team Providers Care Clinic Assistant Name Role Phone Monique Garcia MD Unavailable [phone] Monique Garcia MD Unavailable [phone] Nathan Martinez MD Primary Care Provider [phone] Encounter Details Date Type Department Care Team (Late st Contact Info) Description 01/25/2025 Results Follow-Up [facility] Primary Care [address] [place] [address] Nathan Martinez MD [address] [place] [address] Albumin Creatinine Ratio, Urine Social History Tobacco Use Types Packs/Day Years Used Date Smoking Tobacco: Never Smokeless Tobacco: Current Chew Comments:advised to quit 1 c an of chew per week since 1994 Alcohol Use Standard Drinks/Week Comments Not Currently 0 (1 standard drink = 0.6 oz pur e alcohol) [facility] Utilities Answer Date Recorded In the past 12 months has [employer], gas, oil, or water company threatened to [...] week 10/13/2024 How often do you attend [facility] or zoroastrianism services? Never 10/13/2024 Do you belong to any clubs o r organizations such as amish groups, unions, fraternal or athletic groups, or [...] any time in the past 12 m [facility], were you homeless or living in a group home (including now)? No 10/13/2024 Personal Safety Answer [...] on filedocumented in this encounter Care Teams Clinic Assistant Relationship Specialty Start Date End Date Nathan Martinez MD PCP - General Family Practice 09/10/20 Monique Garcia MD Referring Physician Gastroenterology 06/11/20 Monique Garcia MD Referring Physician Gastroenterology 06/11/20 documented as of this encounter
--- OUTSIDE RECORDS SUMMARY | 2025-03-08 00:59 | XMS_ITS | Clinical Summary ---
Author Organization [facility] [employer] Address [address] [place] [address] Care Team Providers Care Small Arms Repairer Name Role Phone Unavailable Primary Care Provider Unavailabl e Source Comments [facility] [employer],non-owned Affiliates and Associated Physician Practices is amultiple site organization consisting of ambulatory clinics and hospital sitesin [place], [place]. This disclosure is being madepursuant to the Care Everywhere program and may not contain all information available regarding this patient. Last updated 18.[facility] [employer] Allergies Active Allergy Reactions Criticality Noted Date [...] by mouth at bedtime Active HYDROcodone-acet aminophen (Brooks) 5-325 MG tabletIndication s:Right groin pain Take [...] - 01/04/2025 4:47 PM CDT Hospital Encounter [facility] 2 ORTHO/NEW VIS [address] [place] [address] Sergei Del Real MD [place], MD Rossy [...] Adam Elias MD on 01/03/2025 10:19 AM [facility] Roman Blair MD MR ORDERABLES Final Result [...] - 33.6 pg 01/03/2025 5:10 AM CDT [facility] MCHC 32.8 31.7 - 36.3 g/dL 01/03/2025 5:10 AM CDT [facility] RDW-CV 13.5 11.3 - 14.8 % 01/03/2025 5:10 AM CDT [facility] Platelet Count 289 150 - 420 x10E9/L 01/03/2025 5:10 AM CDT [facility] MPV 9.1 7.8 - 11.4 fL 01/03/2025 5:10 AM CDT [facility] Blood BLOOD SPECIMEN / Unknown Lab Venipuncture / Unknown 01/03/2025 4:28 AM CDT 01/03/2025 5:05 AM CDT Brian Blair MD LAB - HEMATOLOGY ORDERABLES Marilee harrison Result Performing Organization Address City/State/[facility] Co de Phone Number [facility] [address] [place] [address] * (ABNORMAL) COMPREHENSIVE METABOLIC PANEL (01/03/2025 4:28 AM CDT) Only the most recent of2 resultswithin the time period is included. [facility] Signature Glucose 97 70 - 99 mg/dL 01/03/2025 5:31 AM [facility] Sodium 135(L) 136 - 145 mmol/L 01/03/2025 5:31 AM T [facility] Potassium 4.1 3.5 - 5.1 mmol/L 01/03/2025 5:31 AM CDT [facility] Chloride 102 98 - 107 mmol/L 01/03/2025 5:31 AM CDT [facility] CO2 23 22 - 29 mmol/L 01/03/2025 5:31 AM CDT [facility] Calcium 8.6 8.4 - 10.4 mg/dL 01/03/2025 5:31 AM CDT [facility] Anion Gap 10 6 - 16 mmol/L 01/03/2025 5:31 AM CDT [facility] BUN 10 7 - 26 mg/dL 01/03/2025 5:31 AM CDT [facility] Creatinine 1.07 0.72 - 1.25 mg/dL 01/03/2025 5:31 AM CDT [facility] Alkaline Phosphatase 53 40 - 150 U/L 01/03/2025 5:31 AM CDT [facility] ALT 31 6 - 57 U/L 01/03/2025 5:31 AM CDT [facility] AST 24 10 - 48 U/L 01/03/2025 5:31 AM CDT [facility] Protein Total 6.8 6.4 - 8.3 gm/dL 01/03/2025 5:31 AM CDT [facility] Albumin 3.7 3.4 - 5.0 gm/dL 01/03/2025 5:31 AM CDT [facility] Bilirubin Total 0.4 0.2 - 1.2 mg/dL 01/03/2025 5:31 AM CDT [facility] eGFR by CKD-EPI 82(L) >=90 mL/min/1.7 3 m2 01/03/2025 5:31 AM CDT [facility] Blood BLOOD SPECIMEN / Unknown Lab Venipuncture / Unknown 01/03/2025 4:28 AM CDT 01/03/2025 5:05 AM CDT Brian Blair MD LAB - CHEMISTRY ORDERABLES Final Result Performing Organization Address [facility] Co de Phone Number [facility] [address] [place] [phone] * MAGNESIUM BLOOD (01/03/2025 4:28 AM CDT) Only the most recent of2 resultswithin the time period is included. Magnesium 2.1 1.6 - 2.6 mg/dL 01/03/2025 5:31 AM CDT [facility] Blood BLOOD SPECIMEN / Unknown Lab Venipuncture / Unknown 01/03/2025 4:28 AM CDT 01/03/2025 5:05 AM CDT Brian Blair MD LAB - CHEMISTRY ORDERABLES Final Result Performing Organization Address City/[facility]/ZIP Co de Phone Number [facility] [address] [place] [phone] * CT Abdomen Pelvis W Contrast [...] Magaly Payton MD on 01/02/2025 1:59 PM Brian Blair MD CT ORDERABLES Final Result * C-REACTIVE PROTEIN (01/02/2025 7:24 AM CDT) C-Reactive Protein 0.10 <=0.50 mg/dL 01/02/2025 8:02 AM CDT [facility] Blood BLOOD SPECIMEN / Unknown Lab Venipuncture / Unknown 01/02/2025 7:24 AM CDT 01/02/2025 7:29 AM CDT Result [facility] Moises Rodriguez MD LAB - CHEMISTRY ORDERABLE S Final Result Performing Organization Address [facility] de Phone Number [facility] [address] [place] [address] * ERYTHROCYTE SEDIMENTATION RATE (01/02/2025 7:24 AM CDT) Erythrocyte Sedimentation Rate Automated 7 0 - 20 MM/HR 01/02/2025 7:48 AM CDT [facility] Blood BLOOD SPECIMEN / Unknown Lab Venipuncture / Unknown 01/02/2025 7:24 AM CDT 01/02/2025 7:29 AM CDT Moises Rodriguez MD LAB - HEMATOLOGY ORDERABL ES Final Result Performing Organization Address City/State/[facility] Co de Phone Number [facility] [address] [place] [address] * US SCROTUM WITH DOPPLER (01/01/2025 11:40 [...] FABIAN NEGATIVE NEGATIVE 01/02/2025 3:03 PM CDT [facility] Microbiology URINE / Unknown Collection / Unknown 01/01/2025 11:14 PM CDT 01/01/2025 11:20 PM CDT Sergei Del Real MD LAB - MICROBIOLOGY ORDERABLE S Final Result [facility] [address] [place] [address], [facility] [phone] * CHLAMYDIA AND N. GONORRHOEAE FABIAN (01/01/2025 11:14 PM CDT) Chlamydia by FABIAN NEGATIVE NEGATIVE 01/02/2025 3:03 PM CDT [facility] Neisseria gonorrhoeae FABIAN NEGATIVE NEGATIVE 01/02/2025 3:03 PM CDT [facility] MICROBIOLOG[facility] Microbiology URINE / Unknown Collection / Unknown 01/01/2025 11:14 PM CDT 01/01/2025 11:20 PM CDT us Sergei Del Real MD LAB - MICROBIOLOGY ORDERABLE S Final Result [facility] [address] [place], [place] [address], [place] [phone] * URINALYSIS REFLEX MICROSCOPIC REFLEX CULTURE (01/01/2025 11:14 PM CDT) Color UA Yellow Yellow, Straw 01/01/2025 11:22 PM CDT [facility] Clarity UA Clear Clear 01/01/2025 11:22 PM CDT [facility] Glucose UA Normal Normal 01/01/2025 11:22 PM CDT [facility] Bilirubin UA Negative Negative 01/01/2025 11:22 PM CDT [facility] Ketone UA Negative Negative 01/01/2025 11:22 PM CDT [facility] Specific [place] UA 1.019 1.005 - 1.030 01/01/2025 11:22 PM CDT [facility] Blood UA Negative Negative 01/01/2025 11:22 PM CDT [facility] pH UA 6.0 5.0 - 8.0 pH 01/01/2025 11:22 PM CDT [facility] Protein UA Negative Negative 01/01/2025 11:22 PM CDT [facility] Urobilinogen UA Normal Normal mg/dL 01/01/2025 11:22 PM CDT [facility] Nitrite UA Negative Negative 01/01/2025 11:22 PM CDT [facility] Leukocyte Esterase UA Negative Negative 01/01/2025 11:22 PM CDT [facility] Reflex Status Culture not indicated 01/01/2025 11:22 PM CDT [facility] Urine URINE SPECIMEN OBTAINED BY CLEAN CATCH PROCEDURE / Unknown Collection / Unknown 01/01/2025 11:14 PM CDT 01/01/2025 11:20 PM CDT Narrative [facility] - 01/01/2025 11:22 PM CDT us Sergei Del Real MD LAB - URINALYSIS ORDERABLES Final Result [facility] [address] [place] [address] from Last 3 Months Insurance [address] [employer] Advance Directives * Full Code (Latest Code Status on File) Date Activated Date Inactivated Comments 01/02/2025 4:40 AM 01/04/2025 5:47 PM * Full Code Date Activated Date Inactivated Comments 01/10/2015 10:22 PM 01/12/2015 5:26 PM
--- OUTSIDE RECORDS SUMMARY | 2025-03-08 00:59 | XMS_ITS | Clinical Summary ---
Author Organization [facility] Address [address] [place] [address] Care Team Providers Care Chair And Couch Maker Name Role Phone Monique Garcia MD Unavailable [phone] Monique Garcia MD Unavailable [phone] Nathan Martinez MD Primary Care Provider [phone] Allergies Active Allergy Reactions Criticality Noted Date [...] today with results pending. Slight relief with [place] 5 mg. We will increase dosage to [...] mg Assessment & Plan (10/15/2023 11:29 AM TRIMMING INSPECTOR): A1c today . Continue glipizide/Trulicity at same [...] 09/12/2022 Assessment & Plan (09/12/2022 9:35 AM TRIMMING INSPECTOR): Some tinnitus for 2 months. Possible hearing loss. Ear canals normal today drums normal ENT refer Lipidemia 09/11/2022 Assessment & Plan (02/20/2025 11:05 AM CDT): Continue atorvastatin at same dosage. Well controlled. Needs repeat lipids Assessment & Plan (11/11/2024 2:33 PM CDT): Continue atorvastatin but needs repeat lipids Assessment & Plan (08/05/2024 2:15 PM TRIMMING INSPECTOR): Continue atorvastatin same dosage. Needs repeat lipid Assessment & Plan (05/01/2024 12:22 PM CDT): Needs repeat lipids. Continue atorvastatin at same dose. Assessment & Plan (01/07/2024 4:08 PM CDT): Continue atorvastatin same dosage but needs repeat lipids. Assessment & Plan (10/15/2023 11:35 AM TRIMMING INSPECTOR): Continue atorvastatin at same dosage. Well controlled. Assessment & Plan (06/23/2023 2:03 PM CDT): Continue Lipitor same dosage but needs repeat lipids. Assessment & Plan (01/15/2023 1:58 PM CDT): Continue atorvastatin same dosage but needs repeat lipids Assessment & Plan (09/11/2022 3:45 PM TRIMMING INSPECTOR): Continue atorvastatin same dosage Acute left ankle [...] counseling. Assessment & Plan (10/15/2023 12:07 PM TRIMMING INSPECTOR): Diabetic foot exam: Left monofilament exam: normal [...] surgeon Assessment & Plan (09/02/2021 8:59 AM TRIMMING INSPECTOR): Pain most recently is in the right [...] 09/02/2021 Assessment & Plan (09/02/2021 9:00 AM TRIMMING INSPECTOR): Refer to Dermatology Chronic abdominal pain 08/30/2021 Assessment & Plan (05/02/2024 3:02 PM CDT): History of multiple adhesions and several times he has had to had bowel obstruction treated. Constant pain. Worse about 30 minutes after eating. Referral to GI. Left lower quadrant Assessment & Plan (09/16/2021 9:44 AM TRIMMING INSPECTOR): Try peppermint oil pill daily. Discontinue Levbid. Refer to GI. Needs colonoscopy. Assessment & Plan (09/02/2021 8:59 AM TRIMMING INSPECTOR): Previous pain is similar to this pain [...] controlled. Assessment & Plan (08/05/2024 2:14 PM TRIMMING INSPECTOR): Continue Provigil at same dosage. Well controlled. Return 3 months Assessment & Plan (05/01/2024 12:20 PM CDT): Continue Provigil at same dosage. Well controlled. Return 3 months Assessment & Plan (01/07/2024 4:03 PM CDT): Continue Provigil at same dosage. Well controlled. Assessment & Plan (10/16/2023 1:08 PM TRIMMING INSPECTOR): Takes Provigil off-label. Adequate control with medicine. [...] usage. Assessment & Plan (09/13/2021 9:27 AM TRIMMING INSPECTOR): Continue modafinil at same dosage. Well controlled. No signs of toxicity and patient understands this is off-label treatment Assessment & Plan (08/30/2021 7:27 AM TRIMMING INSPECTOR): Allow modafinil as no evidence of toxicity and evidence of benefit Assessment & Plan (06/11/2021 1:30 PM CDT): Continue Provigil at same dosage. Well controlled. Assessment & Plan (02/08/2021 10:32 AM CDT): Continue modafinil at same dosage. Well controlled. Assessment & Plan (11/09/2020 1:42 PM CDT): Allow modafinil but understands off-label Assessment & Plan (10/08/2020 10:45 AM TRIMMING INSPECTOR): Previously diagnosed with this by psychiatrist at [place]. good response previously to modafinil but I [...] PFTs Assessment & Plan (10/08/2020 10:46 AM TRIMMING INSPECTOR): Much improved Assessment & Plan (09/10/2020 10:03 AM TRIMMING INSPECTOR): Mainly with exertion and will refer to [...] disease Assessment & Plan (10/08/2020 10:45 AM TRIMMING INSPECTOR): Much improved Assessment & Plan (09/10/2020 9:58 AM TRIMMING INSPECTOR): Persisting cough and will refer to Pulmonary for Rash 09/10/2020 Assessment & Plan (10/08/2020 10:45 AM TRIMMING INSPECTOR): Much improved Assessment & Plan (09/10/2020 10:02 AM TRIMMING INSPECTOR): There is a dry Pash of eczematoid type rash on his back that is different than psoriasis he has other areas. We will give him some topical hydrocortisone cream but not to use longer than 2 weeks as risk of atrophy and tolerance. Nasal polyp 09/10/2020 Assessment & Plan (09/10/2020 10:07 AM TRIMMING INSPECTOR): ENT referral Anemia 09/09/2020 Assessment & Plan (09/09/2020 1:03 PM TRIMMING INSPECTOR): Needs iron studies and methylmalonic acid level. [...] months. Assessment & Plan (08/08/2024 11:33 AM TRIMMING INSPECTOR): A1c today. Is improved at 7.0. Continue [...] controlled. Assessment & Plan (09/11/2022 3:47 PM TRIMMING INSPECTOR): A1C TODAY.BMI Follow-up includes: nutrition counseling and [...] weekly Assessment & Plan (09/16/2021 9:43 AM TRIMMING INSPECTOR): A1c today. Diabetes needing better control. No hypoglycemic symptoms. Metformin, Jardiance, and glipizide daily. No significant improvement and will add Trulicity 0.75 mg weekly Assessment & Plan (08/30/2021 7:25 AM TRIMMING INSPECTOR): A1c today. Assessment & Plan (06/17/2021 10:38 [...] today. Assessment & Plan (10/08/2020 10:42 AM TRIMMING INSPECTOR): Check fasting blood sugar today. Result is 415 no he has had better sugars at home. No hypoglycemic symptoms will increase Jardiance to 25 mg daily as he has had no side effects. Assessment & Plan (09/10/2020 9:58 AM TRIMMING INSPECTOR): Needs better control. Medication options discussed. Risk [...] controlled. Assessment & Plan (10/15/2023 11:36 AM TRIMMING INSPECTOR): Continue trazodone at same dosage. Well controlled. Assessment & Plan (06/23/2023 2:04 PM CDT): Continue trazodone same dosage. Well controlled. Assessment & Plan (01/15/2023 1:59 PM CDT): Continue trazodone at same dosage. Well controlled. Assessment & Plan (09/11/2022 3:44 PM TRIMMING INSPECTOR): Continue trazodone Assessment & Plan (05/02/2022 11:04 AM CDT): Continue trazodone at same dosage. Well controlled. Assessment & Plan (12/13/2021 9:57 AM CDT): Continue trazodone at same dosage. Well controlled. Assessment & Plan (08/30/2021 7:26 AM TRIMMING INSPECTOR): Continue trazodone at same dosage. Well controlled. Assessment & Plan (06/11/2021 1:30 PM CDT): Continue trazodone at same dosage. Well controlled. Assessment & Plan (02/08/2021 10:36 AM CDT): Continue trazodone at same dosage. Well controlled. Assessment & Plan (10/08/2020 10:31 AM TRIMMING INSPECTOR): Improved. Continue trazodone 100 mg Assessment & Plan (09/10/2020 10:00 AM TRIMMING INSPECTOR): Increase trazodone to 100 mg needs better [...] controlled. Assessment & Plan (08/05/2024 2:13 PM TRIMMING INSPECTOR): Continue Lexapro at same dosage. Well controlled. Assessment & Plan (05/01/2024 12:21 PM CDT): Continue Lexapro at same dosage. Well controlled. Assessment & Plan (01/07/2024 4:04 PM CDT): Continue Lexapro at same dosage. Well controlled. Assessment & Plan (10/15/2023 11:35 AM TRIMMING INSPECTOR): Continue Lexapro at same dosage. Well controlled. Assessment & Plan (06/23/2023 2:07 PM CDT): Continue Lexapro at same dosage. Well controlled. Assessment & Plan (01/15/2023 2:00 PM CDT): Continue Lexapro at same dosage. Well controlled. Assessment & Plan (09/11/2022 3:44 PM TRIMMING INSPECTOR): Continue Lexapro at same dosage. Well controlled. Assessment & Plan (05/02/2022 11:00 AM CDT): Continue Lexapro at same dosage. Well controlled. Assessment & Plan (12/13/2021 9:57 AM CDT): Continue Lexapro at same dosage. Well controlled. Assessment & Plan (08/30/2021 7:26 AM TRIMMING INSPECTOR): Continue Lexapro at same dosage. Well controlled. Assessment & Plan (06/11/2021 1:30 PM CDT): Continue Lexapro at same dosage. Well controlled. Assessment & Plan (02/08/2021 10:33 AM CDT): Continue Lexapro at same dosage. Well controlled. Assessment & Plan (11/09/2020 1:42 PM CDT): Continue Lexapro at same dosage. Well controlled. Assessment & Plan (09/09/2020 1:01 PM TRIMMING INSPECTOR): Continue medication at same dosage. Well controlled. [...] Department Care Team Description 02/21/2025 Results Follow-Up [facility] [address] [place] [address] Nathan Martinez MD Cholesterol, LDL, direct 02/20/2025 10:45 AM CDT Office Visit [facility] [address] [place] [address] Nathan Martinez MD Lumbar radiculopathy (Primary Dx); Mixed hyperlipidemia; Screening PSA (prostate specific antigen); Alcohol abuse; Type 2 diabetes mellitus with hyperglycemia, without long-term current use of insulin (HCC) 01/25/2025 Results Follow-Up [facility] [address] [place] [address] Nathan Martinez MD Albumin Creatinine Ratio, Urine 01/20/2025 11:00 AM CDT Office Visit [facility] [address] [place] [address] Nathan Martinez MD Lumbar radiculopathy (Primary Dx); Type 2 diabetes mellitus with hyperglycemia, without long-term current use of insulin (HCC); Major depression in remission; Attention deficit hyperactivity disorder (ADHD), predominantly inattentive type; Psychophysiologic insomnia; High risk medication use; Encounter for drug screening 12/19/2024 11:15 AM CDT Office Visit [facility] [address] [place] [address] Nathan Martinez MD Lumbar radiculopathy (Primary Dx); Major depression in remission; Attention deficit hyperactivity disorder (ADHD), predominantly inattentive type; Type 2 diabetes mellitus with hyperglycemia, without long-term current use of insulin (HCC) 12/19/2024 10:18 AM CDT - 12/19/2024 11:59 PM CDT Hospital Encounter [facility] [address] [place] [address] Lumbar radiculopathy Discharge Disposition: Discharge to home or self care 12/19/2024 Results Follow-Up [facility] [address] [place] [address] Nathan Martinez MD XR Spine [...] drink = 0.6 oz pur e alcohol) [facility] Utilities Answer Date Recorded In the past 12 months has th e electric, gas, oil, or water [employer] threatened to shut off services in your [...] often do you attend chur ch or episcopal services? Never 10/13/2024 Do you belong to any clubs o r organizations such as samaritan groups, unions, fraternal or athletic groups, or [...] any time in the past 12 m [facility], were you homeless or living in a fpc (including now)? No 10/13/2024 Personal Safety Answer [...] insulin (HCC) EGFR Routine 10/12/2024 5:05 AM TRIMMING INSPECTOR COLONOSCOPY Routine 05/09/2024 7:50 AM CDT from [...] MD LAB BLOOD ORDERABLES Final Result [facility] [address] [place] [address] * Albumin Creatinine Ratio, Urine (01/20/2025 11:16 [...] LAB URINE ORDERABLES Final Result [facility] [address] [place] [address] * Drug Monitor, Heroin Metab, QN, Urine (01/20/2025 10:52 AM CDT) Pathologist [facility] 6-Acetylmorphi ne, ur NEGATIVE <10 ng/mL [facility] Heroin Metab Comments [facility] Comment:See LDT Notes 01/20/2025 10:5 2 AM CDT 01/21/2025 6:01 AM CDT Nathan Martinez MD LAB URINE ORDERABLES Final Result [facility] [address] [place] [address] * (ABNORMAL) Drug Monitor, Alcohol Metab, W/Conf, Urine (01/20/2025 10:52 AM CDT) Pathologist [facility] Alcohol Metabolites POSITIVE(A ) <500 ng/mL [facility] Ethyl Glucuronide (ETG) 14,558(H) <500 ng/mL [facility] Ethyl Sulfate (ETS) 1,720(H) <100 ng/mL [facility] Alcohol metabolites comments [facility] Comment:See Alcohol Metab No mariam, LDT Notes 01/20/2025 10:5 2 AM CDT 01/21/2025 6:01 AM CDT Nathan Martinez MD LAB URINE ORDERABLES Final Result [facility] [address] [place] [address] * Drug Monitoring Template (01/20/2025 10:52 AM [...] analytical performance characteristics have been determined by [employer]. It has not been cleared or approved by the FDA. This assay has been validated pursuant to the CLIA regulations and is used for clinical purposes. Healthcare Providers needing Interpretation assistance, please contact us at [phone] ( ) M-F, 8am to 10pm EST 01/20/2025 10:5 2 AM CDT 01/21/2025 6:01 AM CDT us Nathan Martinez MD LAB URINE ORDERABLES Final Result [facility] [address] [place] [address] * (ABNORMAL) Drug Monitor,Panel 1 w/Conf, Urine (01/20/2025 10:52 AM CDT) Amphetamine, ur, quant NEGATIVE <500 ng/mL [facility] Barbiturates, ur NEGATIVE <300 ng/mL [facility] Benzodiazepines NEGATIVE <100 ng/mL [facility] Cocaine metabolite NEGATIVE <150 ng/mL [facility] Marijuana Metabolite POSITIVE(A) <20 ng/mL [facility] Marijuana Metabolite 16(H) <5 ng/mL [facility] Marijuana Comments [facility] Comment:See Marijuana Notes, LDT Notes Methadone Metabolite NEGATIVE <100 ng/mL [facility] Opiates POSITIVE(A) <100 ng/mL [facility] Codeine NEGATIVE <50 ng/mL [facility] Hydrocodone 4,562(H) <50 ng/mL [facility] Hydromorphone 163(H) <50 ng/mL [facility] Morphine NEGATIVE <50 ng/mL [facility] Norhydrocodone 4,808(H) <50 ng/mL [facility] Opiates Comments [facility] Comment:See Opiates Notes, L DT Notes Oxycodone NEGATIVE <100 ng/mL [facility] Phencyclidine NEGATIVE <25 ng/mL [facility] Creatinine 120.3 > or = 20.0 mg/dL [facility] pH, ur 5.5 4.5 - 9.0 [facility] Oxidant NEGATIVE <200 mcg/mL [facility] 01/20/2025 10:5 2 AM CDT 01/21/2025 6:01 AM CDT us Nathan Martinez MD LAB URINE ORDERABLES Final Result [facility] [address] [place] [address] * XR Spine Lumbar 4 or More [...] Rufino Wasserman M.D. MF: MIKE Report ID: [id number] Reading Location: [id number] Procedure Note Rufino Wasserman MD - 12/19/2024 [...] Rufino Wasserman M.D. MF: MIKE Report ID: [id number] Reading Location: [id number] Nathan Martinez MD IMG XR PROCEDURES Final Re sult * (ABNORMAL) POCT hemoglobin A1c (11/14/2024 11:39 AM CDT) Hemoglobin A1C, POC 7.4 4.0 - 5.6 % Blood 11/14/2024 11:3 9 AM CDT Nathan Martinez MD POINT OF CARE TEST ORDERAB LES Final Result * eGFR (10/12/2024 5:05 AM TRIMMING INSPECTOR) eGFR 89 >=60 mL/min/1. 73 m2 Comment: [...] was last reviewed 2021. Testing performed by: [facility], [address] [place] [address]., [id number] Blood 10/12/2024 5:05 AM TRIMMING INSPECTOR 10/12/2024 5:34 AM TRIMMING INSPECTOR us Baldomero Sung MD LAB BLOOD ORDERABLES Final Result [facility] [id number] [facility] Department [place] [address] * (ABNORMAL) Colonoscopy (05/09/2024 7:50 AM CDT) Anatomical Region Laterality Modality Other us Historical Provider ENDOSCOPY PROCEDURES Marilee l Result from Last 3 Months or Most Recently Relevant to Health Maintenance Insurance [id number] CLAIMS CLAIMS [id number] CLAIMS Advance Directives For more information, please contact: [phone] * Full Code (Latest Code Status on File) Date Activated Date Inactivated Comments 10/12/2024 2:05 AM 10/15/2024 5:49 PM Care Teams Chair And Couch Maker Relationship Specialty Start Date End Date Nathan Martinez MD PCP - General Family Practice 09/10/20 Monique Garcia MD Referring Physician Gastroenterology 06/11/20 Monique Garcia MD Referring Physician Gastroenterology 06/11/20
--- OUTSIDE RECORDS SUMMARY | 2025-03-08 00:59 | XMS_ITS ---
Author Name Interface, [id number] [facility] Address [address] [place] [id number] [facility] Address [address] [place] [address] Allergies and Adverse Reactions Plan Reason for Visit Encounters Immunizations Diagnostic Results Medications Problems Vital Signs
[2025-03-08] MEDS: MORPHINE SULFATE (*CRX) 4 MG/ML INJ 6 MG IV PUSH (01:07)
[2025-03-08] MEDS: LACTATED RINGERS 1,000 ML 999 ML IV CONT (01:07)
[2025-03-08] MEDS: ONDANSETRON INJ 4 MG/2 ML VIAL IV PUSH (01:07)
[2025-03-08 01:08] LABS: Hematocrit 41.5 % (42.0-52.0); Hemoglobin 13.6 g/dL (14.0-18.0); Immature Granulocyte Percent A 0.1 % (0-0.5); Lymphocytes Absolute Auto 2.34 K/mm3 (0.9-3.2); Mean Corpuscular HGB Conc 32.8 g/dl (32-36); Mean Corpuscular Hemoglobin 26.3 pg (26-34); Mean Corpuscular Volume 80.1 fl (80-100); Nucleated Red Blood Cells Absolute Auto 0.000 K/mm3 (0.0-0.012); Nucleated Red Blood Cells Perc 0.0 % (0.0-0.2); Platelet Count Result 245 k/mm3 (150-375); Red Blood Count 5.18 M/mm3 (4.6-6.20); White Blood Count 6.9 K/mm3 (4.5-10.0)
[2025-03-08 01:26] LABS: Alanine Aminotransferase 33 U/L (6-50); Albumin Level 4.5 g/dL (3.5-5.1); Alkaline Phosphatase 42 U/L (38-126); Anion Gap 11 mmol/L (4-12); Aspartate Amino Transferase 33 U/L (17-59); Bilirubin,Total 0.3 mg/dL (0.2-1.3); Blood Urea Nitrogen 12 mg/dL (9-20); Calcium 9.6 mg/dL (8.4-10.2); Carbon Dioxide 24 mmol/L (22-30); Chloride 101 mmol/L (98-107); Estimated CRCL calculation 82 ml/min; Estimated Glomerular Filt Rate > 60; Glucose 210 mg/dL (65-110); Lipase 258 U/L (23-300); Potassium 3.8 mmol/L (3.4-5.0); Sodium 136 mmol/L (137-145); Total Protein 8.2 g/dL (6.3-8.2)
[2025-03-08 02:03] LABS: Add Urine Microscopic? NO; Appearance Urine Clear (Clear); Glucose Urine UA 1+ mg/dL (Negative); Leukocyte Esterase Ur Negative LEU/UL (Negative); Nitrate Urine Negative (Negative); Specific Grav Ur 1.008 (1.001-1.035)
[2025-03-08] MEDS: HYDROmorphone HCL INJ (*CRX) 2 MG/ML VIAL 0.5 MG IV PUSH ×2 (02:29→04:06)
[2025-03-08 02:41] VITALS: BP 129/88; PULSE 66; RESP 17; O2SAT 97
[2025-03-08 05:11] VITALS: BP 128/85; PULSE 73; RESP 18; O2SAT 97
== END 2025-03-08 05:12 | disposition home or self-care (01) ==
PROVIDERS: Emergency Provider Student in an Organized Health Care Education/Training Program; PCP Family Medicine
DX: R10.9 Unspecified abdominal pain (principal); Z87.19 Personal history of other diseases of the digestive system; Z90.49 Acquired absence of other specified parts of digestive tract; E11.9 Type 2 diabetes mellitus without complications; F32.A Depression, unspecified
CPT/HCPCS: 36415; 74177; 80053; 81003; 83690; 85025; 96361; 96374; 96375; 96376; 99284; J1171; J2270; J2405; J7120; Q9967

== ENCOUNTER 2025-03-13 01:48 | Observation (INO) | payer OTHER, SELFPAY ==
[2025-03-13] VITALS (19 sets, daily range): BP systolic 120–141; BP diastolic 79–94; PULSE 65–92; RESP 12–20; TEMP 36.1–37; O2SAT 94–99; BMI 27.9
--- NOTE | ~2025-03-13 | CT_ITS ---
EXAMINATION: CT abdomen pelvis w con DATE: 03/13/2025 04:52 INDICATION: Small bowel obstruction TECHNIQUE: Computed tomography (CT) of the abdomen and pelvis was performed with 100 cc Omnipaque 350 intravenous contrast. The dose-length product was 843.01 mGy-cm. Automated exposure control and iter ative reconstruction technique were employed. COMPARISON: CT dated 03/08/2025. FINDINGS: Dependent atelectasis. Heart size normal. No significant pleural or pericardial effusion. F atty infiltration of the liver. The spleen, pancreas, adrenal glands and kidneys are unremarkable. Lambert rgical changes consistent with partial colectomy. Status post cholecystectomy. There are fluid-filled mildly distended small bowel loops with air-fluid levels. There is gas throughout the colon. Small f at-containing umbilical hernia. Status post appendectomy. IMPRESSION: 1. Fluid-filled distended small bowel loops with air-fluid levels. Differential diagnosis includes il eus, enteritis and partial obstruction. Reviewed, dictated and finalized at location A. IMPRESSION: 1. Fluid-filled distended small bowel loops with air-fluid levels. Differential diagnosis includes ileus, enteritis and partial obstruction.
--- NOTE | ~2025-03-13 | XR_ITS ---
SMALL BOWEL SERIES ONLY INDICATION: Small bowel obstruction TECHNIQUE: Serial plain films were performed following ingestion of 300 mL of Omnipaque 350 via pre-e xisting nasogastric tube. COMPARISON: Reference is made to a CT examination of the abdomen and pelvis dated 03/13/2025 approxima tely 12 hours earlier. FINDINGS: Contrast was followed sequentially through the small bowel and large. Mural thickening is d etected within the early portions of the examination along with small bowel dilatation, which resolve d at the completion of the study. Transit time is is 3 hours to the level of the rectum IMPRESSION: Transit time of 3 hours to the level of the rectum with resolution of partial small bowel obstruction , as detailed above. Reviewed, dictated and finalized at location A. IMPRESSION: Transit time of 3 hours to the level of the rectum with resolution of partial s mall bowel obstruction, as detailed above.
--- NOTE | ~2025-03-13 | US_ITS ---
US scrotum doppler INDICATION: Constipation. Pain radiating to left testicle for 2-3 days TECHNIQUE: Testicular sonogram utilizing grayscale and color Doppler FINDINGS: The testes are normal in size and appearance. No focal lesions are seen. The right testes measures 4.3 x 2 x 2.8 cm centimeters, and the left testis measures 4.2 x 2.8 x 1.9 cm cm. There is n ormal vascular flow to both testes. Is a small left epididymal cyst measuring 6 mm. Right epididymis within normal limits. There is no varicocele or hydrocele. IMPRESSION: 1. Unremarkable testicular ultrasound. Reviewed, dictated and finalized at location A.
--- OUTSIDE RECORDS SUMMARY | 2025-03-13 01:50 | XMS_ITS ---
Author Name Interface, [id number] lity Address [address] [place] [address] [facility] mcintosh Address [address] [place] [address] Allergies and Adverse Reactions Medication/Group Name Reaction [...] sufficient for 30 days; 2 refills active 019 meloxicam 15 MG Oral [...]
--- OUTSIDE RECORDS SUMMARY | 2025-03-13 01:50 | XMS_ITS | Clinical Summary ---
Author Organization [facility] Address [address] [place] [address] Care Team Providers Care Fish Trapper Name Role Phone Unavailable Primary Care Provider Unavailabl e Source Comments [facility],non-owned Affiliates and Associated Physician Practices is amultiple site organization consisting of ambulatory clinics and hospital sitesin [place], [place], [place] and [place]. This disclosure is being madepursuant to the Care Everywhere program and may not contain all information available regarding this patient. Last updated 18.[facility] Allergies Active Allergy Reactions Criticality Noted Date [...] by mouth at bedtime Active HYDROcodone-acet aminophen ([place]) 5-325 MG tabletIndication s:Right groin pain Take [...] - 01/04/2025 4:47 PM CDT Hospital Encounter [facility] 2 ORTHO/NEW VIS [address] [place] [address] Sergei Del Real MD [place], MD Rossy [...] Adam Elias MD on 01/03/2025 10:19 AM [facility] Roman Blair MD MR ORDERABLES Final Result [...] - 33.6 pg 01/03/2025 5:10 AM CDT [facility] MCHC 32.8 31.7 - 36.3 g/dL 01/03/2025 5:10 AM CDT [facility] RDW-CV 13.5 11.3 - 14.8 % 01/03/2025 5:10 AM CDT [facility] Platelet Count 289 150 - 420 x10E9/L 01/03/2025 5:10 AM CDT [facility] MPV 9.1 7.8 - 11.4 fL 01/03/2025 5:10 AM CDT [facility] Blood BLOOD SPECIMEN / Unknown Lab Venipuncture / Unknown 01/03/2025 4:28 AM CDT 01/03/2025 5:05 AM CDT Brian Blair MD LAB - HEMATOLOGY ORDERABLES Marilee harrison Result Performing Organization Address City/State/[facility] Co de Phone Number [facility] [address] [place] [address] * (ABNORMAL) COMPREHENSIVE METABOLIC PANEL (01/03/2025 4:28 AM CDT) Only the most recent of2 resultswithin the time period is included. [facility] Signature Glucose 97 70 - 99 mg/dL 01/03/2025 5:31 AM [facility] Sodium 135(L) 136 - 145 mmol/L 01/03/2025 5:31 AM T [facility] Potassium 4.1 3.5 - 5.1 mmol/L 01/03/2025 5:31 AM CDT [facility] Chloride 102 98 - 107 mmol/L 01/03/2025 5:31 AM CDT [facility] CO2 23 22 - 29 mmol/L 01/03/2025 5:31 AM CDT [facility] Calcium 8.6 8.4 - 10.4 mg/dL 01/03/2025 5:31 AM CDT [facility] Anion Gap 10 6 - 16 mmol/L 01/03/2025 5:31 AM CDT [facility] BUN 10 7 - 26 mg/dL 01/03/2025 5:31 AM CDT [facility] Creatinine 1.07 0.72 - 1.25 mg/dL 01/03/2025 5:31 AM CDT [facility] Alkaline Phosphatase 53 40 - 150 U/L 01/03/2025 5:31 AM CDT [facility] ALT 31 6 - 57 U/L 01/03/2025 5:31 AM CDT [facility] AST 24 10 - 48 U/L 01/03/2025 5:31 AM CDT [facility] Protein Total 6.8 6.4 - 8.3 gm/dL 01/03/2025 5:31 AM CDT [facility] Albumin 3.7 3.4 - 5.0 gm/dL 01/03/2025 5:31 AM CDT [facility] Bilirubin Total 0.4 0.2 - 1.2 mg/dL 01/03/2025 5:31 AM CDT [facility] eGFR by CKD-EPI 82(L) >=90 mL/min/1.7 3 m2 01/03/2025 5:31 AM CDT [facility] Blood BLOOD SPECIMEN / Unknown Lab Venipuncture / Unknown 01/03/2025 4:28 AM CDT 01/03/2025 5:05 AM CDT Brian Blair MD LAB - CHEMISTRY ORDERABLES Final Result Performing Organization Address [facility] Co de Phone Number [facility] [address] [place] [id number] * MAGNESIUM BLOOD (01/03/2025 4:28 AM CDT) Only the most recent of2 resultswithin the time period is included. Magnesium 2.1 1.6 - 2.6 mg/dL 01/03/2025 5:31 AM CDT [facility] Blood BLOOD SPECIMEN / Unknown Lab Venipuncture / Unknown 01/03/2025 4:28 AM CDT 01/03/2025 5:05 AM CDT Brian Blair MD LAB - CHEMISTRY ORDERABLES Final Result Performing Organization Address City/[facility]/ZIP Co de Phone Number [facility] [address] [place] [id number] * CT Abdomen Pelvis W Contrast [...] 0.10 <=0.50 mg/dL 01/02/2025 8:02 AM CDT [facility] Blood BLOOD SPECIMEN / Unknown Lab Venipuncture / Unknown 01/02/2025 7:24 AM CDT 01/02/2025 7:29 AM CDT Result [facility] Moises Rodriguez MD LAB - CHEMISTRY ORDERABLE S Final Result Performing Organization Address [facility] de Phone Number [facility] [address] [place] [address] * ERYTHROCYTE SEDIMENTATION RATE (01/02/2025 7:24 AM CDT) Erythrocyte Sedimentation Rate Automated 7 0 - 20 MM/HR 01/02/2025 7:48 AM CDT [facility] Blood BLOOD SPECIMEN / Unknown Lab Venipuncture / Unknown 01/02/2025 7:24 AM CDT 01/02/2025 7:29 AM CDT Moises Rodriguez MD LAB - HEMATOLOGY ORDERABL ES Final Result Performing Organization Address City/State/[facility] Co de Phone Number [facility] [address] [place] [address] * US SCROTUM WITH DOPPLER (01/01/2025 11:40 [...] FABIAN NEGATIVE NEGATIVE 01/02/2025 3:03 PM CDT [facility] Microbiology URINE / Unknown Collection / Unknown 01/01/2025 11:14 PM CDT 01/01/2025 11:20 PM CDT Sergei Del Real MD LAB - MICROBIOLOGY ORDERABLE S Final Result [facility] [address] [place] [address], [facility] [phone] * CHLAMYDIA AND N. GONORRHOEAE FABIAN (01/01/2025 11:14 PM CDT) Chlamydia by FABIAN NEGATIVE NEGATIVE 01/02/2025 3:03 PM CDT [facility] Neisseria gonorrhoeae FABIAN NEGATIVE NEGATIVE 01/02/2025 3:03 PM CDT [facility] Microbiology URINE / Unknown Collection / Unknown 01/01/2025 11:14 PM CDT 01/01/2025 11:20 PM CDT us Sergei Del Real MD LAB - MICROBIOLOGY ORDERABLE S Final Result [facility] [address] [place], [place] [address], [place] [phone] * URINALYSIS REFLEX MICROSCOPIC REFLEX CULTURE (01/01/2025 11:14 PM CDT) Color UA Yellow Yellow, Straw 01/01/2025 11:22 PM CDT [facility] Clarity UA Clear Clear 01/01/2025 11:22 PM CDT [facility] Glucose UA Normal Normal 01/01/2025 11:22 PM CDT [facility] Bilirubin UA Negative Negative 01/01/2025 11:22 PM CDT [facility] Ketone UA Negative Negative 01/01/2025 11:22 PM CDT [facility] Specific Neversink UA 1.019 1.005 - 1.030 01/01/2025 11:22 PM CDT [facility] Blood UA Negative Negative 01/01/2025 11:22 PM CDT [facility] pH UA 6.0 5.0 - 8.0 pH 01/01/2025 11:22 PM CDT [facility] Protein UA Negative Negative 01/01/2025 11:22 PM CDT [facility] Urobilinogen UA Normal Normal mg/dL 01/01/2025 11:22 PM CDT [facility] Nitrite UA Negative Negative 01/01/2025 11:22 PM CDT [facility] Leukocyte Esterase UA Negative Negative 01/01/2025 11:22 PM CDT [facility] Reflex Status Culture not indicated 01/01/2025 11:22 PM CDT [facility] Urine URINE SPECIMEN OBTAINED BY CLEAN CATCH PROCEDURE / Unknown Collection / Unknown 01/01/2025 11:14 PM CDT 01/01/2025 11:20 PM CDT Narrative [facility] - 01/01/2025 11:22 PM CDT us Sergei Del Real MD LAB - URINALYSIS ORDERABLES Final Result [facility] [address] [place] [address] from Last 3 Months Insurance [address] [employer] Advance Directives * Full Code (Latest Code Status on File) Date Activated Date Inactivated Comments 01/02/2025 4:40 AM 01/04/2025 5:47 PM * Full Code Date Activated Date Inactivated Comments 01/10/2015 10:22 PM 01/12/2015 5:26 PM
--- OUTSIDE RECORDS SUMMARY | 2025-03-13 01:50 | XMS_ITS | Encounter Summary ---
Author Organization [facility] Healthcare Address [address] [place] [address] Care Team Providers Care Winter Intern Name Role Phone Monique Garcia MD Unavailable [phone] Monique Garcia MD Unavailable [phone] Nathan Martinez MD Primary Care Provider [phone] Encounter Details Date Type Department Care Team (Late st Contact Info) Description 01/25/2025 Results Follow-Up [facility] Medical Group Primary Care [address] [place] [address] Nathan Martinez MD [address] [place] [address] Albumin Creatinine Ratio, Urine Social History Tobacco Use Types Packs/Day Years Used Date Smoking Tobacco: Never Smokeless Tobacco: Current Chew Comments:advised to quit 1 c an of chew per week since 1994 Alcohol Use Standard Drinks/Week Comments Not Currently 0 (1 standard drink = 0.6 oz pur e alcohol) [facility] Utilities Answer Date Recorded In the past 12 months has [employer], gas, oil, or water company threatened to [...] week 10/13/2024 How often do you attend [facility] or taoism services? Never 10/13/2024 Do you belong to any clubs o r organizations such as uatsdin groups, unions, fraternal or athletic groups, or [...] were you homeless or living in a nursing home (including now)? No 10/13/2024 Personal Safety [...] on filedocumented in this encounter Care Teams Winter Intern Relationship Specialty Start Date End Date Nathan Martinez MD PCP - General Family Practice 09/10/20 Monique Garcia MD Referring Physician Gastroenterology 06/11/20 Monique Garcia MD Referring Physician Gastroenterology 06/11/20 documented as of this encounter
--- OUTSIDE RECORDS SUMMARY | 2025-03-13 01:50 | XMS_ITS | Encounter Summary ---
Author Organization [facility] Healthcare Address [address] [place] [address] Care Team Providers Care Tin Plater Name Role Phone Monique Garcia MD Unavailable [phone] Monique Garcia MD Unavailable [phone] Nathan Martinez MD Primary Care Provider [phone] Encounter Details Date Type Department Care Team (Late st Contact Info) Description 02/21/2025 Results Follow-Up [facility] Medical Group Primary Care [address] [place] [address] Nathan Martinez MD [address] [place] [address] Cholesterol, LDL, direct Social History Tobacco Use Types Packs/Day Years Used Date Smoking Tobacco: Never Smokeless Tobacco: Current Chew Comments:advised to quit 1 c an of chew per week since 1994 Alcohol Use Standard Drinks/Week Comments Not Currently 0 (1 standard drink = 0.6 oz pur e alcohol) [facility] Utilities Answer Date Recorded In the past 12 months has [employer], gas, oil, or water company threatened to [...] week 10/13/2024 How often do you attend [facility] or yarsani services? Never 10/13/2024 Do you belong to any clubs o r organizations such as faith groups, unions, fraternal or athletic groups, or [...] any time in the past [address] [facility], were you homeless or living in a penitentiary (including now)? No 10/13/2024 Personal Safety Answer [...] 02/21/2025 8:13 AM CDT Patient advised via [employer]. documented in this encounter Plan of Treatment Not on file documented as of this encounter Visit Diagnoses Not on filedocumented in this encounter Care Teams Tin Plater Relationship Specialty Start Date End Date Nathan Martinez MD PCP - General Family Practice 09/10/20 Monique Garcia MD Referring Physician Gastroenterology 06/11/20 Monique Garcia MD Referring Physician Gastroenterology 06/11/20 documented as of this encounter
--- OUTSIDE RECORDS SUMMARY | 2025-03-13 01:51 | XMS_ITS | Clinical Summary ---
Author Organization [facility] Address [address] [place] [address] Care Team Providers Care [employer] Carpenter Name Role Phone Monique Garcia MD Unavailable [phone] Monique Garcia MD Unavailable [phone] Nathan Martinez MD Primary Care Provider [phone] Allergies Active Allergy Reactions Criticality Noted Date [...] today with results pending. Slight relief with [place] 5 mg. We will increase dosage to [...] mg Assessment & Plan (10/15/2023 11:29 AM TELEGRAPH OPERATOR): A1c today . Continue glipizide/Trulicity at [...] 09/12/2022 Assessment & Plan (09/12/2022 9:35 AM TELEGRAPH OPERATOR): Some tinnitus for 2 months. Possible hearing loss. Ear canals normal today drums normal ENT refer Lipidemia 09/11/2022 Assessment & Plan (02/20/2025 11:05 AM CDT): Continue atorvastatin at same dosage. Well controlled. Needs repeat lipids Assessment & Plan (11/11/2024 2:33 PM CDT): Continue atorvastatin but needs repeat lipids Assessment & Plan (08/05/2024 2:15 PM TELEGRAPH OPERATOR): Continue atorvastatin same dosage. Needs repeat lipid Assessment & Plan (05/01/2024 12:22 PM CDT): Needs repeat lipids. Continue atorvastatin at same dose. Assessment & Plan (01/07/2024 4:08 PM CDT): Continue atorvastatin same dosage but needs repeat lipids. Assessment & Plan (10/15/2023 11:35 AM TELEGRAPH OPERATOR): Continue atorvastatin at same dosage. Well controlled. Assessment & Plan (06/23/2023 2:03 PM CDT): Continue Lipitor same dosage but needs repeat lipids. Assessment & Plan (01/15/2023 1:58 PM CDT): Continue atorvastatin same dosage but needs repeat lipids Assessment & Plan (09/11/2022 3:45 PM TELEGRAPH OPERATOR): Continue atorvastatin same dosage Acute left [...] counseling. Assessment & Plan (10/15/2023 12:07 PM TELEGRAPH OPERATOR): Diabetic foot exam: Left monofilament exam: [...] surgeon Assessment & Plan (09/02/2021 8:59 AM TELEGRAPH OPERATOR): Pain most recently is in the [...] 09/02/2021 Assessment & Plan (09/02/2021 9:00 AM TELEGRAPH OPERATOR): Refer to Dermatology Chronic abdominal pain 08/30/2021 Assessment & Plan (05/02/2024 3:02 PM CDT): History of multiple adhesions and several times he has had to had bowel obstruction treated. Constant pain. Worse about 30 minutes after eating. Referral to GI. Left lower quadrant Assessment & Plan (09/16/2021 9:44 AM TELEGRAPH OPERATOR): Try peppermint oil pill daily. Discontinue Levbid. Refer to GI. Needs colonoscopy. Assessment & Plan (09/02/2021 8:59 AM TELEGRAPH OPERATOR): Previous pain is similar to this [...] controlled. Assessment & Plan (08/05/2024 2:14 PM TELEGRAPH OPERATOR): Continue Provigil at same dosage. Well controlled. Return 3 months Assessment & Plan (05/01/2024 12:20 PM CDT): Continue Provigil at same dosage. Well controlled. Return 3 months Assessment & Plan (01/07/2024 4:03 PM CDT): Continue Provigil at same dosage. Well controlled. Assessment & Plan (10/16/2023 1:08 PM TELEGRAPH OPERATOR): Takes Provigil off-label. Adequate control with [...] usage. Assessment & Plan (09/13/2021 9:27 AM TELEGRAPH OPERATOR): Continue modafinil at same dosage. Well controlled. No signs of toxicity and patient understands this is off-label treatment Assessment & Plan (08/30/2021 7:27 AM TELEGRAPH OPERATOR): Allow modafinil as no evidence of toxicity and evidence of benefit Assessment & Plan (06/11/2021 1:30 PM CDT): Continue Provigil at same dosage. Well controlled. Assessment & Plan (02/08/2021 10:32 AM CDT): Continue modafinil at same dosage. Well controlled. Assessment & Plan (11/09/2020 1:42 PM CDT): Allow modafinil but understands off-label Assessment & Plan (10/08/2020 10:45 AM TELEGRAPH OPERATOR): Previously diagnosed with this by psychiatrist [...] PFTs Assessment & Plan (10/08/2020 10:46 AM TELEGRAPH OPERATOR): Much improved Assessment & Plan (09/10/2020 10:03 AM TELEGRAPH OPERATOR): Mainly with exertion and will refer [...] disease Assessment & Plan (10/08/2020 10:45 AM TELEGRAPH OPERATOR): Much improved Assessment & Plan (09/10/2020 9:58 AM TELEGRAPH OPERATOR): Persisting cough and will refer to Pulmonary for Rash 09/10/2020 Assessment & Plan (10/08/2020 10:45 AM TELEGRAPH OPERATOR): Much improved Assessment & Plan (09/10/2020 10:02 AM TELEGRAPH OPERATOR): There is a dry Pash of eczematoid type rash on his back that is different than psoriasis he has other areas. We will give him some topical hydrocortisone cream but not to use longer than 2 weeks as risk of atrophy and tolerance. Nasal polyp 09/10/2020 Assessment & Plan (09/10/2020 10:07 AM TELEGRAPH OPERATOR): ENT referral Anemia 09/09/2020 Assessment & Plan (09/09/2020 1:03 PM TELEGRAPH OPERATOR): Needs iron studies and methylmalonic acid [...] months. Assessment & Plan (08/08/2024 11:33 AM TELEGRAPH OPERATOR): A1c today. Is improved at 7.0. [...] controlled. Assessment & Plan (09/11/2022 3:47 PM TELEGRAPH OPERATOR): A1C TODAY.BMI Follow-up includes: nutrition counseling [...] weekly Assessment & Plan (09/16/2021 9:43 AM TELEGRAPH OPERATOR): A1c today. Diabetes needing better control. No hypoglycemic symptoms. Metformin, Jardiance, and glipizide daily. No significant improvement and will add Trulicity 0.75 mg weekly Assessment & Plan (08/30/2021 7:25 AM TELEGRAPH OPERATOR): A1c today. Assessment & Plan (06/17/2021 [...] today. Assessment & Plan (10/08/2020 10:42 AM TELEGRAPH OPERATOR): Check fasting blood sugar today. Result is 415 no he has had better sugars at home. No hypoglycemic symptoms will increase Jardiance to 25 mg daily as he has had no side effects. Assessment & Plan (09/10/2020 9:58 AM TELEGRAPH OPERATOR): Needs better control. Medication options discussed. [...] controlled. Assessment & Plan (10/15/2023 11:36 AM TELEGRAPH OPERATOR): Continue trazodone at same dosage. Well controlled. Assessment & Plan (06/23/2023 2:04 PM CDT): Continue trazodone same dosage. Well controlled. Assessment & Plan (01/15/2023 1:59 PM CDT): Continue trazodone at same dosage. Well controlled. Assessment & Plan (09/11/2022 3:44 PM TELEGRAPH OPERATOR): Continue trazodone Assessment & Plan (05/02/2022 11:04 AM CDT): Continue trazodone at same dosage. Well controlled. Assessment & Plan (12/13/2021 9:57 AM CDT): Continue trazodone at same dosage. Well controlled. Assessment & Plan (08/30/2021 7:26 AM TELEGRAPH OPERATOR): Continue trazodone at same dosage. Well controlled. Assessment & Plan (06/11/2021 1:30 PM CDT): Continue trazodone at same dosage. Well controlled. Assessment & Plan (02/08/2021 10:36 AM CDT): Continue trazodone at same dosage. Well controlled. Assessment & Plan (10/08/2020 10:31 AM TELEGRAPH OPERATOR): Improved. Continue trazodone 100 mg Assessment & Plan (09/10/2020 10:00 AM TELEGRAPH OPERATOR): Increase trazodone to 100 mg needs [...] controlled. Assessment & Plan (08/05/2024 2:13 PM TELEGRAPH OPERATOR): Continue Lexapro at same dosage. Well controlled. Assessment & Plan (05/01/2024 12:21 PM CDT): Continue Lexapro at same dosage. Well controlled. Assessment & Plan (01/07/2024 4:04 PM CDT): Continue Lexapro at same dosage. Well controlled. Assessment & Plan (10/15/2023 11:35 AM TELEGRAPH OPERATOR): Continue Lexapro at same dosage. Well controlled. Assessment & Plan (06/23/2023 2:07 PM CDT): Continue Lexapro at same dosage. Well controlled. Assessment & Plan (01/15/2023 2:00 PM CDT): Continue Lexapro at same dosage. Well controlled. Assessment & Plan (09/11/2022 3:44 PM TELEGRAPH OPERATOR): Continue Lexapro at same dosage. Well controlled. Assessment & Plan (05/02/2022 11:00 AM CDT): Continue Lexapro at same dosage. Well controlled. Assessment & Plan (12/13/2021 9:57 AM CDT): Continue Lexapro at same dosage. Well controlled. Assessment & Plan (08/30/2021 7:26 AM TELEGRAPH OPERATOR): Continue Lexapro at same dosage. Well controlled. Assessment & Plan (06/11/2021 1:30 PM CDT): Continue Lexapro at same dosage. Well controlled. Assessment & Plan (02/08/2021 10:33 AM CDT): Continue Lexapro at same dosage. Well controlled. Assessment & Plan (11/09/2020 1:42 PM CDT): Continue Lexapro at same dosage. Well controlled. Assessment & Plan (09/09/2020 1:01 PM TELEGRAPH OPERATOR): Continue medication at same dosage. Well [...] Department Care Team Description 02/21/2025 Results Follow-Up [facility] [address] [place] [address] Nathan Martinez MD Cholesterol, LDL, direct 02/20/2025 10:45 AM CDT Office Visit [facility] [address] [place] [address] Nathan Martinez MD Lumbar radiculopathy (Primary Dx); Mixed hyperlipidemia; Screening PSA (prostate specific antigen); Alcohol abuse; Type 2 diabetes mellitus with hyperglycemia, without long-term current use of insulin (HCC) 01/25/2025 Results Follow-Up [facility] [address] [place] [address] Nathan Martinez MD Albumin Creatinine Ratio, Urine 01/20/2025 11:00 AM CDT Office Visit [facility] [address] [place] [address] Nathan Martinez MD Lumbar radiculopathy (Primary Dx); Type 2 diabetes mellitus with hyperglycemia, without long-term current use of insulin (HCC); Major depression in remission; Attention deficit hyperactivity disorder (ADHD), predominantly inattentive type; Psychophysiologic insomnia; High risk medication use; Encounter for drug screening 12/19/2024 11:15 AM CDT Office Visit [facility] Primary [facility] [address] [place] [address] Nathan Martinez MD Lumbar radiculopathy (Primary Dx); Major depression in remission; Attention deficit hyperactivity disorder (ADHD), predominantly inattentive type; Type 2 diabetes mellitus with hyperglycemia, without long-term current use of insulin (HCC) 12/19/2024 10:18 AM CDT - 12/19/2024 11:59 PM CDT Hospital Encounter [facility] [address] [place] [address] Lumbar radiculopathy Discharge Disposition: Discharge to home or self care 12/19/2024 Results Follow-Up [facility] [address] [place] [address] Nathan Martinez MD XR Spine [...] th e electric, gas, oil, or water [employer] threatened to shut off services in your [...] often do you attend chur ch or taoist services? Never 10/13/2024 Do you belong to [...] any time in the past 12 m [facility], were you homeless or living in a usp (including now)? No 10/13/2024 Personal Safety Answer [...] insulin (HCC) EGFR Routine 10/12/2024 5:05 AM TELEGRAPH OPERATOR COLONOSCOPY Routine 05/09/2024 7:50 AM CDT [...] MD LAB BLOOD ORDERABLES Final Result [facility] [address] [place] [address] * Albumin Creatinine Ratio, Urine (01/20/2025 11:16 [...] LAB URINE ORDERABLES Final Result [facility] [address] [place] [address] * Drug Monitor, Heroin Metab, QN, Urine (01/20/2025 10:52 AM CDT) Pathologist [facility] 6-Acetylmorphi ne, ur NEGATIVE <10 ng/mL [facility] Heroin Metab Comments [facility] Comment:See LDT Notes 01/20/2025 10:5 2 AM CDT 01/21/2025 6:01 AM CDT Nathan Martinez MD LAB URINE ORDERABLES Final Result [facility] [address] [place] [address] * (ABNORMAL) Drug Monitor, Alcohol Metab, W/Conf, Urine (01/20/2025 10:52 AM CDT) Pathologist [facility] Alcohol Metabolites POSITIVE(A ) <500 ng/mL [facility] Ethyl Glucuronide (ETG) 14,558(H) <500 ng/mL [facility] Ethyl Sulfate (ETS) 1,720(H) <100 ng/mL [facility] Alcohol metabolites comments [facility] Comment:See Alcohol Metab No mariam, LDT Notes 01/20/2025 10:5 2 AM CDT 01/21/2025 6:01 AM CDT Nathan Martinez MD LAB URINE ORDERABLES Final Result [facility] [address] [place] [address] * Drug Monitoring Template (01/20/2025 10:52 AM [...] analytical performance characteristics have been determined by [facility]. It has not been cleared or approved by the FDA. This assay has been validated pursuant to the CLIA regulations and is used for clinical purposes. Healthcare Providers needing Interpretation assistance, please contact us at [phone] ( ) M-F, 8am to 10pm EST 01/20/2025 10:5 2 AM CDT 01/21/2025 6:01 AM CDT us Nathan Martinez MD LAB URINE ORDERABLES Final Result [facility] [address] [place] [address] * (ABNORMAL) Drug Monitor,Panel 1 w/Conf, Urine (01/20/2025 10:52 AM CDT) Amphetamine, ur, quant NEGATIVE <500 ng/mL [facility] Barbiturates, ur NEGATIVE <300 ng/mL [facility] Benzodiazepines NEGATIVE <100 ng/mL [facility] Cocaine metabolite NEGATIVE <150 ng/mL [facility] Marijuana Metabolite POSITIVE(A) <20 ng/mL [facility] Marijuana Metabolite 16(H) <5 ng/mL [facility] Marijuana Comments [facility] Comment:See Marijuana Notes, LDT Notes Methadone Metabolite NEGATIVE <100 ng/mL [facility] Opiates POSITIVE(A) <100 ng/mL [facility] Codeine NEGATIVE <50 ng/mL [facility] Hydrocodone 4,562(H) <50 ng/mL [facility] Hydromorphone 163(H) <50 ng/mL [facility] Morphine NEGATIVE <50 ng/mL [facility] Norhydrocodone 4,808(H) <50 ng/mL [facility] Opiates Comments [facility] Comment:See Opiates Notes, L DT Notes Oxycodone NEGATIVE <100 ng/mL [facility] Phencyclidine NEGATIVE <25 ng/mL [facility] Creatinine 120.3 > or = 20.0 mg/dL [facility] pH, ur 5.5 4.5 - 9.0 [facility] Oxidant NEGATIVE <200 mcg/mL [facility] 01/20/2025 10:5 2 AM CDT 01/21/2025 6:01 AM CDT us Nathan Martinez MD LAB URINE ORDERABLES Final Result [facility] [address] [place] [address] * XR Spine Lumbar 4 or More [...] Rufino Wasserman M.D. MF: MIKE Report ID: [id number] Reading Location: [id number] Procedure Note Rufino Wasserman MD - 12/19/2024 [...] Rufino Wasserman M.D. MF: MIKE Report ID: [id number] Reading Location: [id number] Nathan Martinez MD IMG XR PROCEDURES Final Re sult * (ABNORMAL) POCT hemoglobin A1c (11/14/2024 11:39 AM CDT) Hemoglobin A1C, POC 7.4 4.0 - 5.6 % Blood 11/14/2024 11:3 9 AM CDT Nathan Martinez MD POINT OF CARE TEST ORDERAB LES Final Result * eGFR (10/12/2024 5:05 AM TELEGRAPH OPERATOR) eGFR 89 >=60 mL/min/1. 73 m2 [...] last reviewed 2021. Testing performed by: [facility], [address] [place] [address]., [id number] Blood 10/12/2024 5:05 AM TELEGRAPH OPERATOR 10/12/2024 5:34 AM TELEGRAPH OPERATOR us Baldomero Sung MD LAB BLOOD ORDERABLES Final Result [facility] [address] [facility] [place] [address] * (ABNORMAL) Colonoscopy (05/09/2024 7:50 AM CDT) Anatomical Region Laterality Modality Other us Historical Provider ENDOSCOPY PROCEDURES Marilee l Result from Last 3 Months or Most Recently Relevant to Health Maintenance Insurance [id number] CLAIMS CLAIMS [id number] CLAIMS Member Subscriber Plan / Payer ( fective 2018-Present) Name:Erich Allen Relation to Subscriber:Self Name:Erich Allen Payer ID:[id number] (NAIC) Group ID:Not on file Type:[facility] [employer] Address: [facility] [id number] [place] [phone] Advance Directives For more information, please contact: [phone] * Full Code (Latest Code Status on File) Date Activated Date Inactivated Comments 10/12/2024 2:05 AM 10/15/2024 5:49 PM Care Teams [employer] Relationship Specialty Start Date End Date Nathan Martinez MD PCP - General Family Practice 09/10/20 Monique Garcia MD Referring Physician Gastroenterology 06/11/20 Monique Garcia MD Referring Physician Gastroenterology 06/11/20
--- OUTSIDE RECORDS SUMMARY | 2025-03-13 01:51 | XMS_ITS | Referral Summary ---
Author Organization [facility] Address [address] [place] [address] Care Team Providers Care Eeg Tech Name Role Phone Monique Garcia MD Unavailable [phone] Monique Garcia MD Unavailable [phone] Nathan Martinez MD Primary Care Provider [phone] Encounters Date Type Department Care Team Description 02/21/2025 Results Follow-Up [facility] [address] [place] [address] Nathan Martinez MD Cholesterol, LDL, direct 02/20/2025 10:45 AM CDT Office Visit [facility] [address] [place] [address] Nathan Martinez MD Lumbar radiculopathy (Primary Dx); Mixed hyperlipidemia; Screening PSA (prostate specific antigen); Alcohol abuse; Type 2 diabetes mellitus with hyperglycemia, without long-term current use of insulin ([facility]) 01/25/2025 Results Follow-Up [facility] [address] [place] [address] Nathan Martinez MD Albumin Creatinine Ratio, Urine 01/20/2025 11:00 AM CDT Office Visit [facility] [address] [place] [address] Nathan Martinez MD Lumbar radiculopathy (Primary Dx); Type 2 diabetes mellitus with hyperglycemia, without long-term current use of insulin ([facility]); Major depression in remission; Attention deficit hyperactivity disorder (ADHD), predominantly inattentive type; Psychophysiologic insomnia; High risk medication use; Encounter for drug screening 12/19/2024 Results Follow-Up [facility] [address] [place] [address] Nathan Martinez MD XR Spine Lumbar 4 or More Views 12/19/2024 10:18 AM CDT - 12/19/2024 11:59 PM CDT Hospital Encounter [facility] [address] [place] [address] Lumbar radiculopathy Discharge Disposition: Discharge to home or self care 12/19/2024 11:15 AM CDT Office Visit [facility] [address] [place] [address] Nathan Martinez MD Lumbar radiculopathy (Primary Dx); Major depression in remission; Attention deficit hyperactivity disorder (ADHD), predominantly inattentive type; Type 2 diabetes mellitus with hyperglycemia, without long-term current use of insulin ([facility]) from Last 3 Months Allergies Active Allergy [...] today with results pending. Slight relief with [place] 5 mg. We will increase dosage to [...] mg Assessment & Plan (10/15/2023 11:29 AM HOUSEKEEPING STAFF): A1c today . Continue glipizide/Trulicity at same [...] 09/12/2022 Assessment & Plan (09/12/2022 9:35 AM HOUSEKEEPING STAFF): Some tinnitus for 2 months. Possible hearing loss. Ear canals normal today drums normal ENT refer Lipidemia 09/11/2022 Assessment & Plan (02/20/2025 11:05 AM CDT): Continue atorvastatin at same dosage. Well controlled. Needs repeat lipids Assessment & Plan (11/11/2024 2:33 PM CDT): Continue atorvastatin but needs repeat lipids Assessment & Plan (08/05/2024 2:15 PM HOUSEKEEPING STAFF): Continue atorvastatin same dosage. Needs repeat lipid Assessment & Plan (05/01/2024 12:22 PM CDT): Needs repeat lipids. Continue atorvastatin at same dose. Assessment & Plan (01/07/2024 4:08 PM CDT): Continue atorvastatin same dosage but needs repeat lipids. Assessment & Plan (10/15/2023 11:35 AM HOUSEKEEPING STAFF): Continue atorvastatin at same dosage. Well controlled. Assessment & Plan (06/23/2023 2:03 PM CDT): Continue Lipitor same dosage but needs repeat lipids. Assessment & Plan (01/15/2023 1:58 PM CDT): Continue atorvastatin same dosage but needs repeat lipids Assessment & Plan (09/11/2022 3:45 PM HOUSEKEEPING STAFF): Continue atorvastatin same dosage Acute left ankle [...] counseling. Assessment & Plan (10/15/2023 12:07 PM HOUSEKEEPING STAFF): Diabetic foot exam: Left monofilament exam: normal [...] surgeon Assessment & Plan (09/02/2021 8:59 AM HOUSEKEEPING STAFF): Pain most recently is in the right [...] 09/02/2021 Assessment & Plan (09/02/2021 9:00 AM HOUSEKEEPING STAFF): Refer to Dermatology Chronic abdominal pain 08/30/2021 Assessment & Plan (05/02/2024 3:02 PM CDT): History of multiple adhesions and several times he has had to had bowel obstruction treated. Constant pain. Worse about 30 minutes after eating. Referral to GI. Left lower quadrant Assessment & Plan (09/16/2021 9:44 AM HOUSEKEEPING STAFF): Try peppermint oil pill daily. Discontinue Levbid. Refer to GI. Needs colonoscopy. Assessment & Plan (09/02/2021 8:59 AM HOUSEKEEPING STAFF): Previous pain is similar to this pain [...] controlled. Assessment & Plan (08/05/2024 2:14 PM HOUSEKEEPING STAFF): Continue Provigil at same dosage. Well controlled. Return 3 months Assessment & Plan (05/01/2024 12:20 PM CDT): Continue Provigil at same dosage. Well controlled. Return 3 months Assessment & Plan (01/07/2024 4:03 PM CDT): Continue Provigil at same dosage. Well controlled. Assessment & Plan (10/16/2023 1:08 PM HOUSEKEEPING STAFF): Takes Provigil off-label. Adequate control with medicine. [...] usage. Assessment & Plan (09/13/2021 9:27 AM HOUSEKEEPING STAFF): Continue modafinil at same dosage. Well controlled. No signs of toxicity and patient understands this is off-label treatment Assessment & Plan (08/30/2021 7:27 AM HOUSEKEEPING STAFF): Allow modafinil as no evidence of toxicity and evidence of benefit Assessment & Plan (06/11/2021 1:30 PM CDT): Continue Provigil at same dosage. Well controlled. Assessment & Plan (02/08/2021 10:32 AM CDT): Continue modafinil at same dosage. Well controlled. Assessment & Plan (11/09/2020 1:42 PM CDT): Allow modafinil but understands off-label Assessment & Plan (10/08/2020 10:45 AM HOUSEKEEPING STAFF): Previously diagnosed with this by psychiatrist at [facility]. good response previously to modafinil but I [...] PFTs Assessment & Plan (10/08/2020 10:46 AM HOUSEKEEPING STAFF): Much improved Assessment & Plan (09/10/2020 10:03 AM HOUSEKEEPING STAFF): Mainly with exertion and will refer to [...] disease Assessment & Plan (10/08/2020 10:45 AM HOUSEKEEPING STAFF): Much improved Assessment & Plan (09/10/2020 9:58 AM HOUSEKEEPING STAFF): Persisting cough and will refer to Pulmonary for Rash 09/10/2020 Assessment & Plan (10/08/2020 10:45 AM HOUSEKEEPING STAFF): Much improved Assessment & Plan (09/10/2020 10:02 AM HOUSEKEEPING STAFF): There is a dry Pash of eczematoid type rash on his back that is different than psoriasis he has other areas. We will give him some topical hydrocortisone cream but not to use longer than 2 weeks as risk of atrophy and tolerance. Nasal polyp 09/10/2020 Assessment & Plan (09/10/2020 10:07 AM HOUSEKEEPING STAFF): ENT referral Anemia 09/09/2020 Assessment & Plan (09/09/2020 1:03 PM HOUSEKEEPING STAFF): Needs iron studies and methylmalonic acid level. [...] months. Assessment & Plan (08/08/2024 11:33 AM HOUSEKEEPING STAFF): A1c today. Is improved at 7.0. Continue [...] controlled. Assessment & Plan (09/11/2022 3:47 PM HOUSEKEEPING STAFF): A1C TODAY.BMI Follow-up includes: nutrition counseling and [...] weekly Assessment & Plan (09/16/2021 9:43 AM HOUSEKEEPING STAFF): A1c today. Diabetes needing better control. No hypoglycemic symptoms. Metformin, Jardiance, and glipizide daily. No significant improvement and will add Trulicity 0.75 mg weekly Assessment & Plan (08/30/2021 7:25 AM HOUSEKEEPING STAFF): A1c today. Assessment & Plan (06/17/2021 10:38 [...] today. Assessment & Plan (10/08/2020 10:42 AM HOUSEKEEPING STAFF): Check fasting blood sugar today. Result is 415 no he has had better sugars at home. No hypoglycemic symptoms will increase Jardiance to 25 mg daily as he has had no side effects. Assessment & Plan (09/10/2020 9:58 AM HOUSEKEEPING STAFF): Needs better control. Medication options discussed. Risk [...] controlled. Assessment & Plan (10/15/2023 11:36 AM HOUSEKEEPING STAFF): Continue trazodone at same dosage. Well controlled. Assessment & Plan (06/23/2023 2:04 PM CDT): Continue trazodone same dosage. Well controlled. Assessment & Plan (01/15/2023 1:59 PM CDT): Continue trazodone at same dosage. Well controlled. Assessment & Plan (09/11/2022 3:44 PM HOUSEKEEPING STAFF): Continue trazodone Assessment & Plan (05/02/2022 11:04 AM CDT): Continue trazodone at same dosage. Well controlled. Assessment & Plan (12/13/2021 9:57 AM CDT): Continue trazodone at same dosage. Well controlled. Assessment & Plan (08/30/2021 7:26 AM HOUSEKEEPING STAFF): Continue trazodone at same dosage. Well controlled. Assessment & Plan (06/11/2021 1:30 PM CDT): Continue trazodone at same dosage. Well controlled. Assessment & Plan (02/08/2021 10:36 AM CDT): Continue trazodone at same dosage. Well controlled. Assessment & Plan (10/08/2020 10:31 AM HOUSEKEEPING STAFF): Improved. Continue trazodone 100 mg Assessment & Plan (09/10/2020 10:00 AM HOUSEKEEPING STAFF): Increase trazodone to 100 mg needs better [...] controlled. Assessment & Plan (08/05/2024 2:13 PM HOUSEKEEPING STAFF): Continue Lexapro at same dosage. Well controlled. Assessment & Plan (05/01/2024 12:21 PM CDT): Continue Lexapro at same dosage. Well controlled. Assessment & Plan (01/07/2024 4:04 PM CDT): Continue Lexapro at same dosage. Well controlled. Assessment & Plan (10/15/2023 11:35 AM HOUSEKEEPING STAFF): Continue Lexapro at same dosage. Well controlled. Assessment & Plan (06/23/2023 2:07 PM CDT): Continue Lexapro at same dosage. Well controlled. Assessment & Plan (01/15/2023 2:00 PM CDT): Continue Lexapro at same dosage. Well controlled. Assessment & Plan (09/11/2022 3:44 PM HOUSEKEEPING STAFF): Continue Lexapro at same dosage. Well controlled. Assessment & Plan (05/02/2022 11:00 AM CDT): Continue Lexapro at same dosage. Well controlled. Assessment & Plan (12/13/2021 9:57 AM CDT): Continue Lexapro at same dosage. Well controlled. Assessment & Plan (08/30/2021 7:26 AM HOUSEKEEPING STAFF): Continue Lexapro at same dosage. Well controlled. Assessment & Plan (06/11/2021 1:30 PM CDT): Continue Lexapro at same dosage. Well controlled. Assessment & Plan (02/08/2021 10:33 AM CDT): Continue Lexapro at same dosage. Well controlled. Assessment & Plan (11/09/2020 1:42 PM CDT): Continue Lexapro at same dosage. Well controlled. Assessment & Plan (09/09/2020 1:01 PM HOUSEKEEPING STAFF): Continue medication at same dosage. Well controlled. [...] drink = 0.6 oz pur e alcohol) [facility] Utilities Answer Date Recorded [...] often do you attend chur ch or christian services? Never 10/13/2024 Do you belong to any clubs o r organizations such as mu-ism groups, unions, fraternal or athletic groups, or [...] any time in the past 12 m [facility], were you homeless or living in a prison (including now)? No 10/13/2024 Personal Safety Answer [...] insulin (HCC) EGFR Routine 10/12/2024 5:05 AM HOUSEKEEPING STAFF COLONOSCOPY Routine 05/09/2024 7:50 AM CDT from [...] LAB BLOOD ORDERABLES Final Result [facility] [address] [place] [address] * Albumin Creatinine Ratio, Urine (01/20/2025 11:16 [...] URINE ORDERABLES Final Result Performing Organization Address City/[facility]/ZIP Co de Phone Number [facility] [address] [place] [address] * Drug Monitor, Heroin Metab, QN, Urine (01/20/2025 10:52 AM CDT) Pathologist [facility] 6-Acetylmorphi ne, ur NEGATIVE <10 ng/mL [facility] Heroin Metab Comments [facility] Comment:See LDT Notes 01/20/2025 10:5 2 AM CDT 01/21/2025 6:01 AM CDT Nathan Martinez MD LAB URINE ORDERABLES Final Result Performing Organization Address [facility]/ZIP Co de Phone Number [facility] [address] [place] [address] * (ABNORMAL) Drug Monitor, Alcohol Metab, W/Conf, Urine (01/20/2025 10:52 AM CDT) Pathologist [facility] Alcohol Metabolites POSITIVE(A ) <500 ng/mL [...] URINE ORDERABLES Final Result Performing Organization Address City/[facility]/ZIP Co de Phone Number [email or web address] [address] [place] [address] * Drug Monitoring Template (01/20/2025 10:52 AM CDT) Notes and Comments [facility] Comment: This drug testing is [...] analytical performance characteristics have been determined by [email or web address]. It has not been cleared or approved by the FDA. This assay has been validated pursuant to the CLIA regulations and is used for clinical purposes. Healthcare Providers needing Interpretation assistance, please contact us at [phone] ( ) M-F, 8am to 10pm EST 01/20/2025 10:5 2 AM CDT 01/21/2025 6:01 AM CDT Nathan Martinez MD LAB URINE ORDERABLES Final Result [facility] [address] [place] [address] * (ABNORMAL) Drug Monitor,Panel 1 w/Conf, Urine (01/20/2025 10:52 AM CDT) Amphetamine, ur, quant NEGATIVE <500 ng/mL [facility] Barbiturates, ur NEGATIVE <300 ng/mL [facility] Benzodiazepines NEGATIVE <100 ng/mL [facility] Cocaine metabolite NEGATIVE <150 ng/mL [facility] Marijuana Metabolite POSITIVE(A) <20 ng/mL [facility] Marijuana Metabolite 16(H) <5 ng/mL [facility] Marijuana Comments [facility] Comment:See Marijuana Notes, LDT Notes Methadone Metabolite NEGATIVE <100 ng/mL [facility] Opiates POSITIVE(A) <100 ng/mL [facility] Codeine NEGATIVE <50 ng/mL [facility] Hydrocodone 4,562(H) <50 ng/mL [facility] Hydromorphone 163(H) <50 ng/mL [facility] Morphine NEGATIVE <50 ng/mL [facility] Norhydrocodone 4,808(H) <50 ng/mL [facility] Opiates Comments [facility] Comment:See Opiates Notes, L DT Notes Oxycodone NEGATIVE <100 ng/mL [facility] Phencyclidine NEGATIVE <25 ng/mL [facility] Creatinine 120.3 > or = 20.0 mg/dL [facility] pH, ur 5.5 4.5 - 9.0 [facility] Oxidant NEGATIVE <200 mcg/mL [facility] 01/20/2025 10:5 2 AM CDT 01/21/2025 6:01 AM CDT us Nathan Martinez MD LAB URINE ORDERABLES Final Result Performing Organization Address City/[facility]/ZIP Co de Phone Number [facility] [address] [place] [address] * XR Spine Lumbar 4 or More [...] Rufino Wasserman M.D. MF: MIKE Report ID: [id number] Reading Location: [id number] Procedure Note Rufino Wasserman MD - 12/19/2024 [...] Rufino Wasserman M.D. MF: MIKE Report ID: [id number] Reading Location: [id number] Nathan Martinez MD IMG XR PROCEDURES Final Re sult * (ABNORMAL) POCT hemoglobin A1c (11/14/2024 11:39 AM CDT) Hemoglobin A1C, POC 7.4 4.0 - 5.6 % Blood 11/14/2024 11:3 9 AM CDT Nathan Martinez MD POINT OF CARE TEST ORDERAB LES Final Result * eGFR (10/12/2024 5:05 AM HOUSEKEEPING STAFF) eGFR 89 >=60 mL/min/1. 73 m2 Comment: [...] reviewed 2021. Testing performed by: [facility], [address] [place] [address]., [address] Blood 10/12/2024 5:05 AM HOUSEKEEPING STAFF 10/12/2024 5:34 AM HOUSEKEEPING STAFF Baldomero Sung MD LAB BLOOD ORDERABLES Final Result Performing Organization Address City/State/[facility] Co de Phone Number [facility] [address] [facility] [place] [address] * (ABNORMAL) Colonoscopy (05/09/2024 7:50 AM CDT) Anatomical Region Laterality Modality Other Camryn Provider ENDOSCOPY PROCEDURES Marilee l Result from Last 3 Months or Most Recently Relevant to Health Maintenance Insurance [address] CLAIMS [address] CLAIMS [address] CLAIMS Advance Directives For more information, please contact: [phone] * Full Code (Latest Code Status on File) Date Activated Date Inactivated Comments 10/12/2024 2:05 AM 10/15/2024 5:49 PM Care Teams Eeg Tech Relationship Specialty Start Date End Date Nathan Martinez MD PCP - General Family Practice 09/10/20 Monique Garcia MD Referring Physician Gastroenterology 06/11/20 Monique Garcia MD Referring Physician Gastroenterology 06/11/20
--- OUTSIDE RECORDS SUMMARY | 2025-03-13 01:51 | XMS_ITS | CCD ---
Author Name Interface, [id number] lit Address [address] [place] [address] [facility] [place] Address [address] [place] [address] Care Team Providers Care Wax Specialist Name Role Phone Darien GUNN, Mata Echols Unavail le Allergies and Adverse Reactions Reason for Visit Medications Problems Social History
--- OUTSIDE RECORDS SUMMARY | 2025-03-13 01:51 | XMS_ITS ---
Author Name Interface, [id number] lity Address [address] [place] [address] [facility] mcintosh Address [address] [place] [address] Allergies and Adverse Reactions Medication/Group Name Reaction [...]
--- OUTSIDE RECORDS SUMMARY | 2025-03-13 01:51 | XMS_ITS | CCD ---
Author Name Interface, [id number] lity Address [address] [place] [address] [facility], [place] Address [address] [place] [address] Care Team Providers Care Teacher Music Name Role Phone Darien GUNN, Mata James [...]
--- OUTSIDE RECORDS SUMMARY | 2025-03-13 03:41 | XMS_ITS ---
Author Name Interface, [id number] lity Address [address] [place] [address] [facility] mcintosh Address [address] [place] [address] Allergies and Adverse Reactions Medication/Group Name Reaction [...]
--- OUTSIDE RECORDS SUMMARY | 2025-03-13 03:41 | XMS_ITS | CCD ---
Author Name Interface, [id number] lity Address [address] [place] [address] [facility], [place] Address [address] [place] [address] Care Team Providers Care Blueprinter Name Role Phone Darien GUNN, Mata James [...]
--- OUTSIDE RECORDS SUMMARY | 2025-03-13 03:41 | XMS_ITS | Encounter Summary ---
Author Organization [facility] Address [address] [place] [address] Care Team Providers Care Guest Services Assistant Name Role Phone Monique Garcia MD Unavailable [phone] Monique Garcia MD Unavailable [phone] Nathan Martinez MD Primary Care Provider [phone] Encounter Details Date Type Department Care Team (Late st Contact Info) Description 01/25/2025 Results Follow-Up [facility] Primary Care [address] [place] [address] Nathan Martinez MD [address] [place] [address] Albumin Creatinine Ratio, Urine Social History Tobacco Use Types Packs/Day Years Used Date Smoking Tobacco: Never Smokeless Tobacco: Current Chew Comments:advised to quit 1 c an of chew per week since 1994 Alcohol Use Standard Drinks/Week Comments Not Currently 0 (1 standard drink = 0.6 oz pur e alcohol) [facility] Utilities Answer Date Recorded In the past 12 months has [employer], gas, oil, or water company threatened to [...] week 10/13/2024 How often do you attend [facility] or christian services? Never 10/13/2024 Do you belong to any clubs o r organizations such as hindu groups, unions, fraternal or athletic groups, or [...] the past 12 m [facility], were you homeless or living in a [...] on filedocumented in this encounter Care Teams Guest Services Assistant Relationship Specialty Start Date End Date Nathan Martinez MD PCP - General Family Practice 09/10/20 Monique Garcia MD Referring Physician Gastroenterology 06/11/20 Monique Garcia MD Referring Physician Gastroenterology 06/11/20 documented as of this encounter
--- OUTSIDE RECORDS SUMMARY | 2025-03-13 03:41 | XMS_ITS | CCD ---
Author Name Interface, [id number] lity Address [address] [place] [address] [facility], LAN Address [address] [place] [address] Care Team Providers Care Forest Pathology Teacher Name Role Phone Darien GUNN, Mata James [...]
--- OUTSIDE RECORDS SUMMARY | 2025-03-13 03:41 | XMS_ITS | Encounter Summary ---
Author Organization [facility] Address [address] [place] [address] Care Team Providers Care Loading Unit Operator Powder Charging Name Role Phone Monique Garcia MD Unavailable [phone] Monique Garcia MD Unavailable [phone] Nathan Martinez MD Primary Care Provider [phone] Encounter Details Date Type Department Care Team (Late st Contact Info) Description 02/21/2025 Results Follow-Up [facility] Primary Care [address] [place] [address] Nathan Martinez MD [address] [place] [address] Cholesterol, LDL, direct Social History Tobacco Use Types Packs/Day Years Used Date Smoking Tobacco: Never Smokeless Tobacco: Current Chew Comments:advised to quit 1 c an of chew per week since 1994 Alcohol Use Standard Drinks/Week Comments Not Currently 0 (1 standard drink = 0.6 oz pur e alcohol) [facility] Utilities Answer Date Recorded In the past 12 months has [employer], gas, oil, or water company threatened to [...] week 10/13/2024 How often do you attend [facility] or baptist services? Never 10/13/2024 Do you belong to any clubs o r organizations such as muslim groups, unions, fraternal or athletic groups, or [...] any time in the past 12 m [facility], were you homeless or living in a fci (including now)? No 10/13/2024 Personal Safety Answer [...] 02/21/2025 8:13 AM CDT Patient advised via [employer]. documented in this encounter Plan of Treatment Not on file documented as of this encounter Visit Diagnoses Not on filedocumented in this encounter Care Teams Loading Unit Operator Powder Charging Relationship Specialty Start Date End Date Nathan Martinez MD PCP - General Family Practice 09/10/20 Monique Garcia MD Referring Physician Gastroenterology 06/11/20 Monique Garcia MD Referring Physician Gastroenterology 06/11/20 documented as of this encounter
--- OUTSIDE RECORDS SUMMARY | 2025-03-13 03:41 | XMS_ITS | Referral Summary ---
Author Organization [facility] Address [address] [place] [address] Care Team Providers Care Wire Spinner Name Role Phone Monique Garcia MD Unavailable [phone] Monique Garcia MD Unavailable [phone] Nathan Martinez MD Primary Care Provider [phone] Encounters Date Type Department Care Team Description 02/21/2025 Results Follow-Up [facility] [address] [place] [address] Nathan Martinez MD Cholesterol, LDL, direct 02/20/2025 10:45 AM CDT Office Visit [facility] [address] [place] [address] Nathan Martinez MD Lumbar radiculopathy (Primary Dx); Mixed hyperlipidemia; Screening PSA (prostate specific antigen); Alcohol abuse; Type 2 diabetes mellitus with hyperglycemia, without long-term current use of insulin (FORMERLY [facility]) 01/25/2025 Results Follow-Up [facility] [address] [place] [address] Nathan Martinez MD Albumin Creatinine Ratio, Urine 01/20/2025 11:00 AM CDT Office Visit [facility] [address] [place] [address] Nathan Martinez MD Lumbar radiculopathy (Primary Dx); Type 2 diabetes mellitus with hyperglycemia, without long-term current use of insulin ([facility]); Major depression in remission; Attention deficit hyperactivity disorder (ADHD), predominantly inattentive type; Psychophysiologic insomnia; High risk medication use; Encounter for drug screening 12/19/2024 Results Follow-Up [facility] [address] [place] [address] Nathan Martinez MD XR Spine Lumbar 4 or More Views 12/19/2024 10:18 AM CDT - 12/19/2024 11:59 PM CDT Hospital Encounter [facility] [address] [place] [address] Lumbar radiculopathy Discharge Disposition: Discharge to home or self care 12/19/2024 11:15 AM CDT Office Visit [facility] [address] [place] [address] Nathan Martinez MD Lumbar radiculopathy (Primary Dx); Major depression in remission; Attention deficit hyperactivity disorder (ADHD), predominantly inattentive type; Type 2 diabetes mellitus with hyperglycemia, without long-term current use of insulin (FORM[facility]LY [facility]) from Last 3 Months Allergies Active Allergy [...] today with results pending. Slight relief with Ward 5 mg. We will increase dosage to [...] mg Assessment & Plan (10/15/2023 11:29 AM PHYSICAL THERAPY PROFESSOR): A1c today . Continue glipizide/Trulicity at same [...] 09/12/2022 Assessment & Plan (09/12/2022 9:35 AM PHYSICAL THERAPY PROFESSOR): Some tinnitus for 2 months. Possible hearing loss. Ear canals normal today drums normal ENT refer Lipidemia 09/11/2022 Assessment & Plan (02/20/2025 11:05 AM CDT): Continue atorvastatin at same dosage. Well controlled. Needs repeat lipids Assessment & Plan (11/11/2024 2:33 PM CDT): Continue atorvastatin but needs repeat lipids Assessment & Plan (08/05/2024 2:15 PM PHYSICAL THERAPY PROFESSOR): Continue atorvastatin same dosage. Needs repeat lipid Assessment & Plan (05/01/2024 12:22 PM CDT): Needs repeat lipids. Continue atorvastatin at same dose. Assessment & Plan (01/07/2024 4:08 PM CDT): Continue atorvastatin same dosage but needs repeat lipids. Assessment & Plan (10/15/2023 11:35 AM PHYSICAL THERAPY PROFESSOR): Continue atorvastatin at same dosage. Well controlled. Assessment & Plan (06/23/2023 2:03 PM CDT): Continue Lipitor same dosage but needs repeat lipids. Assessment & Plan (01/15/2023 1:58 PM CDT): Continue atorvastatin same dosage but needs repeat lipids Assessment & Plan (09/11/2022 3:45 PM PHYSICAL THERAPY PROFESSOR): Continue atorvastatin same dosage Acute left ankle [...] counseling. Assessment & Plan (10/15/2023 12:07 PM PHYSICAL THERAPY PROFESSOR): Diabetic foot exam: Left monofilament exam: normal [...] surgeon Assessment & Plan (09/02/2021 8:59 AM PHYSICAL THERAPY PROFESSOR): Pain most recently is in the right [...] 09/02/2021 Assessment & Plan (09/02/2021 9:00 AM PHYSICAL THERAPY PROFESSOR): Refer to Dermatology Chronic abdominal pain 08/30/2021 Assessment & Plan (05/02/2024 3:02 PM CDT): History of multiple adhesions and several times he has had to had bowel obstruction treated. Constant pain. Worse about 30 minutes after eating. Referral to GI. Left lower quadrant Assessment & Plan (09/16/2021 9:44 AM PHYSICAL THERAPY PROFESSOR): Try peppermint oil pill daily. Discontinue Levbid. Refer to GI. Needs colonoscopy. Assessment & Plan (09/02/2021 8:59 AM PHYSICAL THERAPY PROFESSOR): Previous pain is similar to this pain [...] controlled. Assessment & Plan (08/05/2024 2:14 PM PHYSICAL THERAPY PROFESSOR): Continue Provigil at same dosage. Well controlled. Return 3 months Assessment & Plan (05/01/2024 12:20 PM CDT): Continue Provigil at same dosage. Well controlled. Return 3 months Assessment & Plan (01/07/2024 4:03 PM CDT): Continue Provigil at same dosage. Well controlled. Assessment & Plan (10/16/2023 1:08 PM PHYSICAL THERAPY PROFESSOR): Takes Provigil off-label. Adequate control with medicine. [...] usage. Assessment & Plan (09/13/2021 9:27 AM PHYSICAL THERAPY PROFESSOR): Continue modafinil at same dosage. Well controlled. No signs of toxicity and patient understands this is off-label treatment Assessment & Plan (08/30/2021 7:27 AM PHYSICAL THERAPY PROFESSOR): Allow modafinil as no evidence of toxicity and evidence of benefit Assessment & Plan (06/11/2021 1:30 PM CDT): Continue Provigil at same dosage. Well controlled. Assessment & Plan (02/08/2021 10:32 AM CDT): Continue modafinil at same dosage. Well controlled. Assessment & Plan (11/09/2020 1:42 PM CDT): Allow modafinil but understands off-label Assessment & Plan (10/08/2020 10:45 AM PHYSICAL THERAPY PROFESSOR): Previously diagnosed with this by psychiatrist at [place]. good response previously to modafinil but I [...] PFTs Assessment & Plan (10/08/2020 10:46 AM PHYSICAL THERAPY PROFESSOR): Much improved Assessment & Plan (09/10/2020 10:03 AM PHYSICAL THERAPY PROFESSOR): Mainly with exertion and will refer to [...] disease Assessment & Plan (10/08/2020 10:45 AM PHYSICAL THERAPY PROFESSOR): Much improved Assessment & Plan (09/10/2020 9:58 AM PHYSICAL THERAPY PROFESSOR): Persisting cough and will refer to Pulmonary for Rash 09/10/2020 Assessment & Plan (10/08/2020 10:45 AM PHYSICAL THERAPY PROFESSOR): Much improved Assessment & Plan (09/10/2020 10:02 AM PHYSICAL THERAPY PROFESSOR): There is a dry Pash of eczematoid type rash on his back that is different than psoriasis he has other areas. We will give him some topical hydrocortisone cream but not to use longer than 2 weeks as risk of atrophy and tolerance. Nasal polyp 09/10/2020 Assessment & Plan (09/10/2020 10:07 AM PHYSICAL THERAPY PROFESSOR): ENT referral Anemia 09/09/2020 Assessment & Plan (09/09/2020 1:03 PM PHYSICAL THERAPY PROFESSOR): Needs iron studies and methylmalonic acid level. [...] months. Assessment & Plan (08/08/2024 11:33 AM PHYSICAL THERAPY PROFESSOR): A1c today. Is improved at 7.0. Continue [...] controlled. Assessment & Plan (09/11/2022 3:47 PM PHYSICAL THERAPY PROFESSOR): A1C TODAY.BMI Follow-up includes: nutrition counseling and [...] weekly Assessment & Plan (09/16/2021 9:43 AM PHYSICAL THERAPY PROFESSOR): A1c today. Diabetes needing better control. No hypoglycemic symptoms. Metformin, Jardiance, and glipizide daily. No significant improvement and will add Trulicity 0.75 mg weekly Assessment & Plan (08/30/2021 7:25 AM PHYSICAL THERAPY PROFESSOR): A1c today. Assessment & Plan (06/17/2021 10:38 [...] today. Assessment & Plan (10/08/2020 10:42 AM PHYSICAL THERAPY PROFESSOR): Check fasting blood sugar today. Result is 415 no he has had better sugars at home. No hypoglycemic symptoms will increase Jardiance to 25 mg daily as he has had no side effects. Assessment & Plan (09/10/2020 9:58 AM PHYSICAL THERAPY PROFESSOR): Needs better control. Medication options discussed. Risk [...] controlled. Assessment & Plan (10/15/2023 11:36 AM PHYSICAL THERAPY PROFESSOR): Continue trazodone at same dosage. Well controlled. Assessment & Plan (06/23/2023 2:04 PM CDT): Continue trazodone same dosage. Well controlled. Assessment & Plan (01/15/2023 1:59 PM CDT): Continue trazodone at same dosage. Well controlled. Assessment & Plan (09/11/2022 3:44 PM PHYSICAL THERAPY PROFESSOR): Continue trazodone Assessment & Plan (05/02/2022 11:04 AM CDT): Continue trazodone at same dosage. Well controlled. Assessment & Plan (12/13/2021 9:57 AM CDT): Continue trazodone at same dosage. Well controlled. Assessment & Plan (08/30/2021 7:26 AM PHYSICAL THERAPY PROFESSOR): Continue trazodone at same dosage. Well controlled. Assessment & Plan (06/11/2021 1:30 PM CDT): Continue trazodone at same dosage. Well controlled. Assessment & Plan (02/08/2021 10:36 AM CDT): Continue trazodone at same dosage. Well controlled. Assessment & Plan (10/08/2020 10:31 AM PHYSICAL THERAPY PROFESSOR): Improved. Continue trazodone 100 mg Assessment & Plan (09/10/2020 10:00 AM PHYSICAL THERAPY PROFESSOR): Increase trazodone to 100 mg needs better [...] controlled. Assessment & Plan (08/05/2024 2:13 PM PHYSICAL THERAPY PROFESSOR): Continue Lexapro at same dosage. Well controlled. Assessment & Plan (05/01/2024 12:21 PM CDT): Continue Lexapro at same dosage. Well controlled. Assessment & Plan (01/07/2024 4:04 PM CDT): Continue Lexapro at same dosage. Well controlled. Assessment & Plan (10/15/2023 11:35 AM PHYSICAL THERAPY PROFESSOR): Continue Lexapro at same dosage. Well controlled. Assessment & Plan (06/23/2023 2:07 PM CDT): Continue Lexapro at same dosage. Well controlled. Assessment & Plan (01/15/2023 2:00 PM CDT): Continue Lexapro at same dosage. Well controlled. Assessment & Plan (09/11/2022 3:44 PM PHYSICAL THERAPY PROFESSOR): Continue Lexapro at same dosage. Well controlled. Assessment & Plan (05/02/2022 11:00 AM CDT): Continue Lexapro at same dosage. Well controlled. Assessment & Plan (12/13/2021 9:57 AM CDT): Continue Lexapro at same dosage. Well controlled. Assessment & Plan (08/30/2021 7:26 AM PHYSICAL THERAPY PROFESSOR): Continue Lexapro at same dosage. Well controlled. Assessment & Plan (06/11/2021 1:30 PM CDT): Continue Lexapro at same dosage. Well controlled. Assessment & Plan (02/08/2021 10:33 AM CDT): Continue Lexapro at same dosage. Well controlled. Assessment & Plan (11/09/2020 1:42 PM CDT): Continue Lexapro at same dosage. Well controlled. Assessment & Plan (09/09/2020 1:01 PM PHYSICAL THERAPY PROFESSOR): Continue medication at same dosage. Well controlled. [...] drink = 0.6 oz pur e alcohol) [facility] Utilities Answer Date Recorded In the past [...] any clubs o r organizations such as scientologist groups, unions, fraternal or athletic groups, or [...] any time in the past 12 m [facility], were you homeless or living in a retirement (including now)? No 10/13/2024 Personal Safety Answer [...] insulin (HCC) EGFR Routine 10/12/2024 5:05 AM PHYSICAL THERAPY PROFESSOR COLONOSCOPY Routine 05/09/2024 7:50 AM CDT from [...] LAB BLOOD ORDERABLES Final Result [facility] [address] [place] [address] * Albumin Creatinine Ratio, Urine (01/20/2025 11:16 [...] URINE ORDERABLES Final Result Performing Organization Address City/[facility]/ZIP Co de Phone Number [facility] [address] [place] [address] * Drug Monitor, Heroin Metab, QN, Urine (01/20/2025 10:52 AM CDT) Pathologist [facility] 6-Acetylmorphi ne, ur NEGATIVE <10 ng/mL [facility] Heroin Metab Comments [facility] Comment:See LDT Notes 01/20/2025 10:5 2 AM CDT 01/21/2025 6:01 AM CDT Nathan Martinez MD LAB URINE ORDERABLES Final Result Performing Organization Address [facility]/ZIP Co de Phone Number [facility] [address] [place] [address] * (ABNORMAL) Drug Monitor, Alcohol Metab, W/Conf, Urine (01/20/2025 10:52 AM CDT) Pathologist [facility] Alcohol Metabolites POSITIVE(A ) <500 ng/mL [facility] [...] URINE ORDERABLES Final Result Performing Organization Address City/[facility]/ZIP Co de Phone Number [facility] [employer] [facility] [address] [place] [address] * Drug Monitoring Template (01/20/2025 10:52 AM CDT) Notes and Comments [facility] Comment: This drug testing is [...] analytical performance characteristics have been determined by [employer]. It has not been cleared or approved by the FDA. This assay has been validated pursuant to the CLIA regulations and is used for clinical purposes. Healthcare Providers needing Interpretation assistance, please contact us at [phone] ( ) M-F, 8am to 10pm EST 01/20/2025 10:5 2 AM CDT 01/21/2025 6:01 AM CDT Nathan Martinez MD LAB URINE ORDERABLES Final Result [facility] [address] [place] [address] * (ABNORMAL) Drug Monitor,Panel 1 w/Conf, Urine (01/20/2025 10:52 AM CDT) Amphetamine, ur, quant NEGATIVE <500 ng/mL [facility] Barbiturates, ur NEGATIVE <300 ng/mL [facility] Benzodiazepines NEGATIVE <100 ng/mL [facility] Cocaine metabolite NEGATIVE <150 ng/mL [facility] Marijuana Metabolite POSITIVE(A) <20 ng/mL [facility] Marijuana Metabolite 16(H) <5 ng/mL [facility] Marijuana Comments [facility] Comment:See Marijuana Notes, LDT Notes Methadone Metabolite NEGATIVE <100 ng/mL [facility] Opiates POSITIVE(A) <100 ng/mL [facility] Codeine NEGATIVE <50 ng/mL [facility] Hydrocodone 4,562(H) <50 ng/mL [facility] Hydromorphone 163(H) <50 ng/mL [facility] Morphine NEGATIVE <50 ng/mL [facility] Norhydrocodone 4,808(H) <50 ng/mL [facility] Opiates Comments [facility] Comment:See Opiates Notes, L DT Notes Oxycodone NEGATIVE <100 ng/mL [facility] Phencyclidine NEGATIVE <25 ng/mL [facility] Creatinine 120.3 > or = 20.0 mg/dL [facility] pH, ur 5.5 4.5 - 9.0 [facility] Oxidant NEGATIVE <200 mcg/mL [facility] 01/20/2025 10:5 2 AM CDT 01/21/2025 6:01 AM CDT us Nathan Martinez MD LAB URINE ORDERABLES Final Result Performing Organization Address City/[facility]/ZIP Co de Phone Number [facility] [address] [place] [address] * XR Spine Lumbar 4 or More [...] Rufino Wasserman M.D. MF: MIKE Report ID: [id number] Reading Location: [id number] Procedure Note Rufino Wasserman MD - 12/19/2024 [...] Rufino Wasserman M.D. MF: MIKE Report ID: [id number] Reading Location: [id number] Nathan Martinez MD IMG XR PROCEDURES Final Re sult * (ABNORMAL) POCT hemoglobin A1c (11/14/2024 11:39 AM CDT) Hemoglobin A1C, POC 7.4 4.0 - 5.6 % Blood 11/14/2024 11:3 9 AM CDT Nathan Martinez MD POINT OF CARE TEST ORDERAB LES Final Result * eGFR (10/12/2024 5:05 AM PHYSICAL THERAPY PROFESSOR) eGFR 89 >=60 mL/min/1. 73 m2 Comment: [...] last reviewed 2021. Testing performed by: [facility], [address] [place] [address]., [id number] Blood 10/12/2024 5:05 AM PHYSICAL THERAPY PROFESSOR 10/12/2024 5:34 AM PHYSICAL THERAPY PROFESSOR Baldomero Sung MD LAB BLOOD ORDERABLES Final Result Performing Organization Address City/State/[facility] Co de Phone Number [facility] [address] [facility] Department [place] [address] * (ABNORMAL) Colonoscopy (05/09/2024 7:50 AM CDT) Anatomical Region Laterality Modality Other Camryn Provider ENDOSCOPY PROCEDURES Marilee l Result from Last 3 Months or Most Recently Relevant to Health Maintenance Insurance [id number] CLAIMS [address] CLAIMS [address] CLAIMS Advance Directives For more information, please contact: [phone] * Full Code (Latest Code Status on File) Date Activated Date Inactivated Comments 10/12/2024 2:05 AM 10/15/2024 5:49 PM Care Teams Wire Spinner Relationship Specialty Start Date End Date Nathan Martinez MD PCP - General Family Practice 09/10/20 Monique Garcia MD Referring Physician Gastroenterology 06/11/20 Monique Garcia MD Referring Physician Gastroenterology 06/11/20
--- OUTSIDE RECORDS SUMMARY | 2025-03-13 03:41 | XMS_ITS ---
Author Name Interface, [id number] lity Address [address] [place] [address] [facility] ecLAN mcintosh Address [address] [place] [address] Allergies and Adverse Reactions Medication/Group Name Reaction [...]
--- OUTSIDE RECORDS SUMMARY | 2025-03-13 03:41 | XMS_ITS | Clinical Summary ---
Author Organization [facility] Address [address] [place] [address] Care Team Providers Care Agricultural Research Technician Name Role Phone Unavailable Primary Care Provider Unavailabl e Source Comments [facility],non-owned Affiliates and Associated Physician Practices is amultiple site organization consisting of ambulatory clinics and hospital sitesin [place], [place], [place] and [place]. This disclosure is being madepursuant to the Care Everywhere program and may not contain all information available regarding this patient. Last updated 18.[facility] Allergies Active Allergy Reactions Criticality Noted Date [...] by mouth at bedtime Active HYDROcodone-acet aminophen ([place]) 5-325 MG tabletIndication s:Right groin pain Take [...] - 01/04/2025 4:47 PM CDT Hospital Encounter [facility] 2 ORTHO/NEW VIS [address] [place] [address] Sergei Del Real MD [place], MD Rossy [...] Adam Elias MD on 01/03/2025 10:19 AM [facility] Roman Blair MD MR ORDERABLES Final Result [...] - 33.6 pg 01/03/2025 5:10 AM CDT [facility] MCHC 32.8 31.7 - 36.3 g/dL 01/03/2025 5:10 AM CDT [facility] RDW-CV 13.5 11.3 - 14.8 % 01/03/2025 5:10 AM CDT [facility] Platelet Count 289 150 - 420 x10E9/L 01/03/2025 5:10 AM CDT [facility] MPV 9.1 7.8 - 11.4 fL 01/03/2025 5:10 AM CDT [facility] Blood BLOOD SPECIMEN / Unknown Lab Venipuncture / Unknown 01/03/2025 4:28 AM CDT 01/03/2025 5:05 AM CDT Brian Blair MD LAB - HEMATOLOGY ORDERABLES Marilee harrison Result Performing Organization Address City/State/[facility] Co de Phone Number [facility] [address] [place] [address] * (ABNORMAL) COMPREHENSIVE METABOLIC PANEL (01/03/2025 4:28 AM CDT) Only the most recent of2 resultswithin the time period is included. [facility] Signature Glucose 97 70 - 99 mg/dL 01/03/2025 5:31 AM [facility] Sodium 135(L) 136 - 145 mmol/L 01/03/2025 5:31 AM T [facility] Potassium 4.1 3.5 - 5.1 mmol/L 01/03/2025 5:31 AM CDT [facility] Chloride 102 98 - 107 mmol/L 01/03/2025 5:31 AM CDT [facility] CO2 23 22 - 29 mmol/L 01/03/2025 5:31 AM CDT [facility] Calcium 8.6 8.4 - 10.4 mg/dL 01/03/2025 5:31 AM CDT [facility] Anion Gap 10 6 - 16 mmol/L 01/03/2025 5:31 AM CDT [facility] BUN 10 7 - 26 mg/dL 01/03/2025 5:31 AM CDT [facility] Creatinine 1.07 0.72 - 1.25 mg/dL 01/03/2025 5:31 AM CDT [facility] Alkaline Phosphatase 53 40 - 150 U/L 01/03/2025 5:31 AM CDT [facility] ALT 31 6 - 57 U/L 01/03/2025 5:31 AM CDT [facility] AST 24 10 - 48 U/L 01/03/2025 5:31 AM CDT [facility] Protein Total 6.8 6.4 - 8.3 gm/dL 01/03/2025 5:31 AM CDT [facility] Albumin 3.7 3.4 - 5.0 gm/dL 01/03/2025 5:31 AM CDT [facility] Bilirubin Total 0.4 0.2 - 1.2 mg/dL 01/03/2025 5:31 AM CDT [facility] eGFR by CKD-EPI 82(L) >=90 mL/min/1.7 3 m2 01/03/2025 5:31 AM CDT [facility] Blood BLOOD SPECIMEN / Unknown Lab Venipuncture / Unknown 01/03/2025 4:28 AM CDT 01/03/2025 5:05 AM CDT Brian Blair MD LAB - CHEMISTRY ORDERABLES Final Result Performing Organization Address [facility] Co de Phone Number [facility] [address] [place] [phone] * MAGNESIUM BLOOD (01/03/2025 4:28 AM CDT) Only the most recent of2 resultswithin the time period is included. Magnesium 2.1 1.6 - 2.6 mg/dL 01/03/2025 5:31 AM CDT [facility] Blood BLOOD SPECIMEN / Unknown Lab Venipuncture / Unknown 01/03/2025 4:28 AM CDT 01/03/2025 5:05 AM CDT Brian Blair MD LAB - CHEMISTRY ORDERABLES Final Result Performing Organization Address City/[facility]/ZIP Co de Phone Number [facility] [address] [place] [phone] * CT Abdomen Pelvis W Contrast [...] 0.10 <=0.50 mg/dL 01/02/2025 8:02 AM CDT [facility] Blood BLOOD SPECIMEN / Unknown Lab Venipuncture / Unknown 01/02/2025 7:24 AM CDT 01/02/2025 7:29 AM CDT Result [facility] Moises Rodriguez MD LAB - CHEMISTRY ORDERABLE S Final Result Performing Organization Address [facility] de Phone Number [facility] [address] [place] [address] * ERYTHROCYTE SEDIMENTATION RATE (01/02/2025 7:24 AM CDT) Erythrocyte Sedimentation Rate Automated 7 0 - 20 MM/HR 01/02/2025 7:48 AM CDT [facility] Blood BLOOD SPECIMEN / Unknown Lab Venipuncture / Unknown 01/02/2025 7:24 AM CDT 01/02/2025 7:29 AM CDT Moises Rodriguez MD LAB - HEMATOLOGY ORDERABL ES Final Result Performing Organization Address City/State/[facility] Co de Phone Number [facility] [address] [place] [address] * US SCROTUM WITH DOPPLER (01/01/2025 11:40 [...] FABIAN NEGATIVE NEGATIVE 01/02/2025 3:03 PM CDT [facility] Microbiology URINE / Unknown Collection / Unknown 01/01/2025 11:14 PM CDT 01/01/2025 11:20 PM CDT Sergei Del Real MD LAB - MICROBIOLOGY ORDERABLE S Final Result [facility] [address] [place] [address], [facility] [phone] * CHLAMYDIA AND N. GONORRHOEAE FABIAN (01/01/2025 11:14 PM CDT) Chlamydia by FABIAN NEGATIVE NEGATIVE 01/02/2025 3:03 PM CDT [facility] Neisseria gonorrhoeae FABIAN NEGATIVE NEGATIVE 01/02/2025 3:03 PM CDT [facility] Microbiology URINE / Unknown Collection / Unknown 01/01/2025 11:14 PM CDT 01/01/2025 11:20 PM CDT us Sergei Del Real MD LAB - MICROBIOLOGY ORDERABLE S Final Result [facility] [address] [place], [place] [address], [place] [phone] * URINALYSIS REFLEX MICROSCOPIC REFLEX CULTURE (01/01/2025 11:14 PM CDT) Color UA Yellow Yellow, Straw 01/01/2025 11:22 PM CDT [facility] Clarity UA Clear Clear 01/01/2025 11:22 PM CDT [facility] Glucose UA Normal Normal 01/01/2025 11:22 PM CDT [facility] Bilirubin UA Negative Negative 01/01/2025 11:22 PM CDT [facility] Ketone UA Negative Negative 01/01/2025 11:22 PM CDT [facility] Specific [place] UA 1.019 1.005 - 1.030 01/01/2025 11:22 PM CDT [facility] Blood UA Negative Negative 01/01/2025 11:22 PM CDT [facility] pH UA 6.0 5.0 - 8.0 pH 01/01/2025 11:22 PM CDT [facility] Protein UA Negative Negative 01/01/2025 11:22 PM CDT [facility] Urobilinogen UA Normal Normal mg/dL 01/01/2025 11:22 PM CDT [facility] Nitrite UA Negative Negative 01/01/2025 11:22 PM CDT [facility] Leukocyte Esterase UA Negative Negative 01/01/2025 11:22 PM CDT [facility] Reflex Status Culture not indicated 01/01/2025 11:22 PM CDT [facility] Urine URINE SPECIMEN OBTAINED BY CLEAN CATCH PROCEDURE / Unknown Collection / Unknown 01/01/2025 11:14 PM CDT 01/01/2025 11:20 PM CDT Narrative [facility] - 01/01/2025 11:22 PM CDT us Sergei Del Real MD LAB - URINALYSIS ORDERABLES Final Result [facility] [address] [place] [address] from Last 3 Months Insurance [address] [employer] [place] [address] Advance Directives * Full Code (Latest Code Status on File) Date Activated Date Inactivated Comments 01/02/2025 4:40 AM 01/04/2025 5:47 PM * Full Code Date Activated Date Inactivated Comments 01/10/2015 10:22 PM 01/12/2015 5:26 PM
--- OUTSIDE RECORDS SUMMARY | 2025-03-13 03:41 | XMS_ITS | Clinical Summary ---
Author Organization [facility] Address [address] [place] [address] Care Team Providers Care Bottler Name Role Phone Monique Garcia MD Unavailable [phone] Monique Garcia MD Unavailable [phone] Nathan Martinez MD Primary Care Provider [phone] Allergies Active Allergy Reactions Criticality Noted Date [...] today with results pending. Slight relief with Shelley 5 mg. We will increase dosage to [...] mg Assessment & Plan (10/15/2023 11:29 AM CRUSHING MACHINE OPERATOR): A1c today . Continue glipizide/Trulicity at [...] 09/12/2022 Assessment & Plan (09/12/2022 9:35 AM CRUSHING MACHINE OPERATOR): Some tinnitus for 2 months. Possible hearing loss. Ear canals normal today drums normal ENT refer Lipidemia 09/11/2022 Assessment & Plan (02/20/2025 11:05 AM CDT): Continue atorvastatin at same dosage. Well controlled. Needs repeat lipids Assessment & Plan (11/11/2024 2:33 PM CDT): Continue atorvastatin but needs repeat lipids Assessment & Plan (08/05/2024 2:15 PM CRUSHING MACHINE OPERATOR): Continue atorvastatin same dosage. Needs repeat lipid Assessment & Plan (05/01/2024 12:22 PM CDT): Needs repeat lipids. Continue atorvastatin at same dose. Assessment & Plan (01/07/2024 4:08 PM CDT): Continue atorvastatin same dosage but needs repeat lipids. Assessment & Plan (10/15/2023 11:35 AM CRUSHING MACHINE OPERATOR): Continue atorvastatin at same dosage. Well controlled. Assessment & Plan (06/23/2023 2:03 PM CDT): Continue Lipitor same dosage but needs repeat lipids. Assessment & Plan (01/15/2023 1:58 PM CDT): Continue atorvastatin same dosage but needs repeat lipids Assessment & Plan (09/11/2022 3:45 PM CRUSHING MACHINE OPERATOR): Continue atorvastatin same dosage Acute left [...] counseling. Assessment & Plan (10/15/2023 12:07 PM CRUSHING MACHINE OPERATOR): Diabetic foot exam: Left monofilament exam: [...] surgeon Assessment & Plan (09/02/2021 8:59 AM CRUSHING MACHINE OPERATOR): Pain most recently is in the [...] 09/02/2021 Assessment & Plan (09/02/2021 9:00 AM CRUSHING MACHINE OPERATOR): Refer to Dermatology Chronic abdominal pain 08/30/2021 Assessment & Plan (05/02/2024 3:02 PM CDT): History of multiple adhesions and several times he has had to had bowel obstruction treated. Constant pain. Worse about 30 minutes after eating. Referral to GI. Left lower quadrant Assessment & Plan (09/16/2021 9:44 AM CRUSHING MACHINE OPERATOR): Try peppermint oil pill daily. Discontinue Levbid. Refer to GI. Needs colonoscopy. Assessment & Plan (09/02/2021 8:59 AM CRUSHING MACHINE OPERATOR): Previous pain is similar to this [...] controlled. Assessment & Plan (08/05/2024 2:14 PM CRUSHING MACHINE OPERATOR): Continue Provigil at same dosage. Well controlled. Return 3 months Assessment & Plan (05/01/2024 12:20 PM CDT): Continue Provigil at same dosage. Well controlled. Return 3 months Assessment & Plan (01/07/2024 4:03 PM CDT): Continue Provigil at same dosage. Well controlled. Assessment & Plan (10/16/2023 1:08 PM CRUSHING MACHINE OPERATOR): Takes Provigil off-label. Adequate control with [...] usage. Assessment & Plan (09/13/2021 9:27 AM CRUSHING MACHINE OPERATOR): Continue modafinil at same dosage. Well controlled. No signs of toxicity and patient understands this is off-label treatment Assessment & Plan (08/30/2021 7:27 AM CRUSHING MACHINE OPERATOR): Allow modafinil as no evidence of toxicity and evidence of benefit Assessment & Plan (06/11/2021 1:30 PM CDT): Continue Provigil at same dosage. Well controlled. Assessment & Plan (02/08/2021 10:32 AM CDT): Continue modafinil at same dosage. Well controlled. Assessment & Plan (11/09/2020 1:42 PM CDT): Allow modafinil but understands off-label Assessment & Plan (10/08/2020 10:45 AM CRUSHING MACHINE OPERATOR): Previously diagnosed with this by psychiatrist [...] PFTs Assessment & Plan (10/08/2020 10:46 AM CRUSHING MACHINE OPERATOR): Much improved Assessment & Plan (09/10/2020 10:03 AM CRUSHING MACHINE OPERATOR): Mainly with exertion and will refer [...] disease Assessment & Plan (10/08/2020 10:45 AM CRUSHING MACHINE OPERATOR): Much improved Assessment & Plan (09/10/2020 9:58 AM CRUSHING MACHINE OPERATOR): Persisting cough and will refer to Pulmonary for Rash 09/10/2020 Assessment & Plan (10/08/2020 10:45 AM CRUSHING MACHINE OPERATOR): Much improved Assessment & Plan (09/10/2020 10:02 AM CRUSHING MACHINE OPERATOR): There is a dry Pash of eczematoid type rash on his back that is different than psoriasis he has other areas. We will give him some topical hydrocortisone cream but not to use longer than 2 weeks as risk of atrophy and tolerance. Nasal polyp 09/10/2020 Assessment & Plan (09/10/2020 10:07 AM CRUSHING MACHINE OPERATOR): ENT referral Anemia 09/09/2020 Assessment & Plan (09/09/2020 1:03 PM CRUSHING MACHINE OPERATOR): Needs iron studies and methylmalonic acid [...] months. Assessment & Plan (08/08/2024 11:33 AM CRUSHING MACHINE OPERATOR): A1c today. Is improved at 7.0. [...] controlled. Assessment & Plan (09/11/2022 3:47 PM CRUSHING MACHINE OPERATOR): A1C TODAY.BMI Follow-up includes: nutrition counseling [...] weekly Assessment & Plan (09/16/2021 9:43 AM CRUSHING MACHINE OPERATOR): A1c today. Diabetes needing better control. No hypoglycemic symptoms. Metformin, Jardiance, and glipizide daily. No significant improvement and will add Trulicity 0.75 mg weekly Assessment & Plan (08/30/2021 7:25 AM CRUSHING MACHINE OPERATOR): A1c today. Assessment & Plan (06/17/2021 [...] today. Assessment & Plan (10/08/2020 10:42 AM CRUSHING MACHINE OPERATOR): Check fasting blood sugar today. Result is 415 no he has had better sugars at home. No hypoglycemic symptoms will increase Jardiance to 25 mg daily as he has had no side effects. Assessment & Plan (09/10/2020 9:58 AM CRUSHING MACHINE OPERATOR): Needs better control. Medication options discussed. [...] controlled. Assessment & Plan (10/15/2023 11:36 AM CRUSHING MACHINE OPERATOR): Continue trazodone at same dosage. Well controlled. Assessment & Plan (06/23/2023 2:04 PM CDT): Continue trazodone same dosage. Well controlled. Assessment & Plan (01/15/2023 1:59 PM CDT): Continue trazodone at same dosage. Well controlled. Assessment & Plan (09/11/2022 3:44 PM CRUSHING MACHINE OPERATOR): Continue trazodone Assessment & Plan (05/02/2022 11:04 AM CDT): Continue trazodone at same dosage. Well controlled. Assessment & Plan (12/13/2021 9:57 AM CDT): Continue trazodone at same dosage. Well controlled. Assessment & Plan (08/30/2021 7:26 AM CRUSHING MACHINE OPERATOR): Continue trazodone at same dosage. Well controlled. Assessment & Plan (06/11/2021 1:30 PM CDT): Continue trazodone at same dosage. Well controlled. Assessment & Plan (02/08/2021 10:36 AM CDT): Continue trazodone at same dosage. Well controlled. Assessment & Plan (10/08/2020 10:31 AM CRUSHING MACHINE OPERATOR): Improved. Continue trazodone 100 mg Assessment & Plan (09/10/2020 10:00 AM CRUSHING MACHINE OPERATOR): Increase trazodone to 100 mg needs [...] controlled. Assessment & Plan (08/05/2024 2:13 PM CRUSHING MACHINE OPERATOR): Continue Lexapro at same dosage. Well controlled. Assessment & Plan (05/01/2024 12:21 PM CDT): Continue Lexapro at same dosage. Well controlled. Assessment & Plan (01/07/2024 4:04 PM CDT): Continue Lexapro at same dosage. Well controlled. Assessment & Plan (10/15/2023 11:35 AM CRUSHING MACHINE OPERATOR): Continue Lexapro at same dosage. Well controlled. Assessment & Plan (06/23/2023 2:07 PM CDT): Continue Lexapro at same dosage. Well controlled. Assessment & Plan (01/15/2023 2:00 PM CDT): Continue Lexapro at same dosage. Well controlled. Assessment & Plan (09/11/2022 3:44 PM CRUSHING MACHINE OPERATOR): Continue Lexapro at same dosage. Well controlled. Assessment & Plan (05/02/2022 11:00 AM CDT): Continue Lexapro at same dosage. Well controlled. Assessment & Plan (12/13/2021 9:57 AM CDT): Continue Lexapro at same dosage. Well controlled. Assessment & Plan (08/30/2021 7:26 AM CRUSHING MACHINE OPERATOR): Continue Lexapro at same dosage. Well controlled. Assessment & Plan (06/11/2021 1:30 PM CDT): Continue Lexapro at same dosage. Well controlled. Assessment & Plan (02/08/2021 10:33 AM CDT): Continue Lexapro at same dosage. Well controlled. Assessment & Plan (11/09/2020 1:42 PM CDT): Continue Lexapro at same dosage. Well controlled. Assessment & Plan (09/09/2020 1:01 PM CRUSHING MACHINE OPERATOR): Continue medication at same dosage. Well [...] Follow-Up [facility] [address] [place] [address] Nathan Martinez MD Cholesterol, LDL, direct 02/20/2025 10:45 AM CDT Office Visit [facility] [address] [place] [address] Nathan Martinez MD Lumbar radiculopathy (Primary Dx); Mixed hyperlipidemia; Screening PSA (prostate specific antigen); Alcohol abuse; Type 2 diabetes mellitus with hyperglycemia, without long-term current use of insulin (HCC) 01/25/2025 Results Follow-Up [facility] [address] [place] [address] Nathan Martinez MD Albumin Creatinine Ratio, Urine 01/20/2025 11:00 AM CDT Office Visit [facility] [address] [place] [address] Nathan Martinez MD Lumbar radiculopathy (Primary Dx); Type 2 diabetes mellitus with hyperglycemia, without long-term current use of insulin (HCC); Major depression in remission; Attention deficit hyperactivity disorder (ADHD), predominantly inattentive type; Psychophysiologic insomnia; High risk medication use; Encounter for drug screening 12/19/2024 11:15 AM CDT Office Visit [facility] [address] [place] [address] Nathan Martinez MD Lumbar radiculopathy (Primary Dx); Major depression in remission; Attention deficit hyperactivity disorder (ADHD), predominantly inattentive type; Type 2 diabetes mellitus with hyperglycemia, without long-term current use of insulin (HCC) 12/19/2024 10:18 AM CDT - 12/19/2024 11:59 PM CDT Hospital Encounter [facility] [address] [place] [address] Lumbar radiculopathy Discharge Disposition: Discharge to home or self care 12/19/2024 Results Follow-Up [facility] [address] [place] [address] Nathan Martinez MD XR Spine [...] 0.6 oz pur e alcohol) [facility] Utilities Answer Date Recorded In the past 12 months has th e electric, gas, oil, or water [employer] threatened to shut off services in your [...] often do you attend chur ch or mormonism services? Never 10/13/2024 Do you belong to any clubs o r organizations such as jain groups, unions, fraternal or athletic groups, or [...] time in the past 12 m [facility], were you homeless or living [...] insulin (HCC) EGFR Routine 10/12/2024 5:05 AM CRUSHING MACHINE OPERATOR COLONOSCOPY Routine 05/09/2024 7:50 AM CDT [...] MD LAB BLOOD ORDERABLES Final Result [facility] [address] [place] [address] * Albumin Creatinine Ratio, Urine (01/20/2025 11:16 [...] LAB URINE ORDERABLES Final Result [facility] [address] [place] [address] * Drug Monitor, Heroin Metab, QN, Urine (01/20/2025 10:52 AM CDT) Pathologist [facility] 6-Acetylmorphi ne, ur NEGATIVE <10 ng/mL [facility] Heroin Metab Comments [facility] Comment:See LDT Notes 01/20/2025 10:5 2 AM CDT 01/21/2025 6:01 AM CDT Nathan Martinez MD LAB URINE ORDERABLES Final Result [facility] [address] [place] [address] * (ABNORMAL) Drug Monitor, Alcohol Metab, W/Conf, [...] LAB URINE ORDERABLES Final Result [facility] [address] [place] [address] * Drug Monitoring Template (01/20/2025 10:52 AM [...] analytical performance characteristics have been determined by [employer]. It has not been cleared or approved by the FDA. This assay has been validated pursuant to the CLIA regulations and is used for clinical purposes. Healthcare Providers needing Interpretation assistance, please contact us at [phone] ( ) M-F, 8am to 10pm EST 01/20/2025 10:5 2 AM CDT 01/21/2025 6:01 AM CDT us Nathan Martinez MD LAB URINE ORDERABLES Final Result [facility] [address] [place] [address] * (ABNORMAL) Drug Monitor,Panel 1 w/Conf, Urine (01/20/2025 10:52 AM CDT) Amphetamine, ur, quant NEGATIVE <500 ng/mL [facility] Barbiturates, ur NEGATIVE <300 ng/mL [facility] Benzodiazepines NEGATIVE <100 ng/mL [facility] Cocaine metabolite NEGATIVE <150 ng/mL [facility] Marijuana Metabolite POSITIVE(A) <20 ng/mL [facility] Marijuana Metabolite 16(H) <5 ng/mL [facility] Marijuana Comments [facility] Comment:See Marijuana Notes, LDT Notes Methadone Metabolite NEGATIVE <100 ng/mL [facility] Opiates POSITIVE(A) <100 ng/mL [facility] Codeine NEGATIVE <50 ng/mL [facility] Hydrocodone 4,562(H) <50 ng/mL [facility] Hydromorphone 163(H) <50 ng/mL [facility] Morphine NEGATIVE <50 ng/mL [facility] Norhydrocodone 4,808(H) <50 ng/mL [facility] Opiates Comments [facility] Comment:See Opiates Notes, L DT Notes Oxycodone NEGATIVE <100 ng/mL [facility] Phencyclidine NEGATIVE <25 ng/mL [facility] Creatinine 120.3 > or = 20.0 mg/dL [facility] pH, ur 5.5 4.5 - 9.0 [facility] Oxidant NEGATIVE <200 mcg/mL [facility] 01/20/2025 10:5 2 AM CDT 01/21/2025 6:01 AM CDT us Nathan Martinez MD LAB URINE ORDERABLES Final Result [facility] [address] [place] [address] * XR Spine Lumbar 4 or More [...] Rufino Wasserman M.D. MF: MIKE Report ID: [id number] Reading Location: [id number] Procedure Note Rufino Wasserman MD - 12/19/2024 [...] Rufino Wasserman M.D. MF: MIKE Report ID: [id number] Reading Location: [id number] Nathan Martinez MD IMG XR PROCEDURES Final Re sult * (ABNORMAL) POCT hemoglobin A1c (11/14/2024 11:39 AM CDT) Hemoglobin A1C, POC 7.4 4.0 - 5.6 % Blood 11/14/2024 11:3 9 AM CDT Nathan Martinez MD POINT OF CARE TEST ORDERAB LES Final Result * eGFR (10/12/2024 5:05 AM CRUSHING MACHINE OPERATOR) eGFR 89 >=60 mL/min/1. 73 m2 [...] last reviewed 2021. Testing performed by: [facility], [address] [place] [address]., [id number] Blood 10/12/2024 5:05 AM CRUSHING MACHINE OPERATOR 10/12/2024 5:34 AM CRUSHING MACHINE OPERATOR us Baldomero Sung MD LAB BLOOD ORDERABLES Final Result [facility] [address] [facility] Department [place] [address] * (ABNORMAL) Colonoscopy (05/09/2024 7:50 AM CDT) Anatomical Region Laterality Modality Other us Historical Provider ENDOSCOPY PROCEDURES Marilee l Result from Last 3 Months or Most Recently Relevant to Health Maintenance Insurance [address] CLAIMS CLAIMS [address] CLAIMS Advance Directives For more information, please contact: [phone] * Full Code (Latest Code Status on File) Date Activated Date Inactivated Comments 10/12/2024 2:05 AM 10/15/2024 5:49 PM Care Teams Bottler Relationship Specialty Start Date End Date Nathan Martinez MD PCP - General Family Practice 09/10/20 Monique Garcia MD Referring Physician Gastroenterology 06/11/20 Monique Garcia MD Referring Physician Gastroenterology 06/11/20
[2025-03-13 03:55] LABS: Hematocrit 41.6 % (42.0-52.0); Hemoglobin 13.6 g/dL (14.0-18.0); Immature Granulocyte Percent A 0.3 % (0-0.5); Lymphocytes Absolute Auto 2.75 K/mm3 (0.9-3.2); Mean Corpuscular HGB Conc 32.7 g/dl (32-36); Mean Corpuscular Hemoglobin 26.4 pg (26-34); Mean Corpuscular Volume 80.6 fl (80-100); Nucleated Red Blood Cells Absolute Auto 0.000 K/mm3 (0.0-0.012); Nucleated Red Blood Cells Perc 0.0 % (0.0-0.2); Platelet Count Result 271 k/mm3 (150-375); Red Blood Count 5.16 M/mm3 (4.6-6.20); White Blood Count 7.7 K/mm3 (4.5-10.0)
--- NOTE | 2025-03-13 03:59 | ED_ITS ---
HPI - Abdominal Pain General Chief Complaint: Abdominal Pain <Lawrence Huerta MD - Last Filed: 03/13/25 07:09> Stated Complaint: severe abdominal pain <Lawrence Huerta MD - Last Filed: 03/13/25 07:09> Time Seen by Provider: 03/13/25 03:24 <Lawrence Huerta MD - Last Filed: 03/13/25 07:09> History of Present Illness HPI narrative: 55-year-old male with a history of complex multiple abdominal surgeries including partial small-bowel obstruction, adhesiolysis, bowel resection from diverticulitis, appendicitis status post appendectomy, cholecystitis status post cholecystectomy. He has also had a left-sided inguinal hernia status post mesh repair x2. Presents to the emergency department with ongoing abdominal pain. He was just seen in the emergency department several days ago by myself and had unremarkable workup and unremarkable CT scans. He was discharged home after feeling improvement. He states he does not taking the Bentyl at home and still having some intermittent pain. Last bowel movement was 3 days ago and was abnormal to him. Endorses some nauseousness and pain in the right-sided lower quadrant radiating into his right groin. No testicular pain testicular masses. No swelling in his testicle. No dysuria. No trauma or injury. Denies any fever, chills, recent antibiotics. No chest pain or difficulty breathing. No recent surgeries. <Lawrence Huerta MD - Last Filed: 03/13/25 07:09> Related Data Home Medications: Home Medications ?Medication ?Instructions ?Recorded ?Confirmed ?Last Taken ?Type escitalopram oxalate 20 mg tablet 20 mg PO DAILY 07/18/21 08/27/24 08/25/24 History modafinil 100 mg tablet 100 mg PO DAILY PRN Systemic Signs 07/18/21 08/27/24 08/18/24 History And Symptoms trazodone 100 mg tablet 100 mg PO HS 07/18/21 08/27/24 08/25/24 History famotidine 20 mg tablet (Pepcid AC) 20 mg PO DAILY PRN Indigestion 02/02/23 08/27/24 Unknown History semaglutide 1 mg/dose (4 mg/3 mL) 1 mg subcut WEEKLY 01/12/1608/27/24 08/21/24 History subcutaneous pen injector (Ozempic) <Lawrence Huerta MD - Last Filed: 03/13/25 07:09> Allergies/Adverse Reactions: Allergies Allergy/AdvReac Type Severity Reaction Status Date / Time ketorolac (From Toradol) Allergy Hives Verified 11/10/24 20:18 gabapentin AdvReac Anxiety Verified 03/13/25 07:09 promethazine (From Phenergan) AdvReac Anxiety Verified 03/13/25 07:09 zolpidem (From Ambien) AdvReac Other Verified 11/10/24 20:18 <Lawrence Huerta MD - Last Filed: 03/13/25 07:09> Review of Systems 2 Review of Systems: As reviewed above in HPI <Lawrence Huerta MD - Last Filed: 03/13/25 07:09> FORMERLY [facility], [facility] Past Medical History Medical History: Medical History Posttraumatic stress disorder Type 2 diabetes mellitus History of small bowel obstruction Depression Diverticulitis <Lawrence Huerta MD - Last Filed: 03/13/25 07:09> Surgical History Surgical History: Surgical History History of orthopedic surgery Right ankle and hand surgery. History of laparoscopic appendectomy Status post laparoscopic Ludmila fundoplication History of laparoscopic cholecystectomy History of exploratory laparotomy With adhesiolysis for small bowel obstruction 3-4 years ago in [place]. History of colon resection Sigmoid colon resection for diverticulitis 6-7 years ago in [place]. <Lawrence Huerta MD - Last Filed: 03/13/25 07:09> Family History Family History: Family History Father Heart disease Grandparent Lung cancer <Lawrence Huerta MD - Last Filed: 03/13/25 07:09> Social History Social History: Social History Social History: Surrogate medical decision maker: Annelise Garcia, significant other. Code status: Full code. Smoking status: Never smoker Alcohol intake: never Substance use: never Substance use type: does not use Do You Feel Safe in your Home?: Yes Lack of Transportation: No Lack of Food: Never True Current Housing: I Have Housing Concerned About Future Housing: No Difficulty Paying Gas/Electric Bills: No Difficulty Paying for Meds: No Currently Unemployed: No Education: High School Diploma/GED Difficulty w/ Childcare or Family Care: No Additional living arrangements comments: Lives in [place] with significant other. He has 1 son. Additional occupation/education comments: Served in the [employer]. 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 Spiritual care concerns: No <Lawrence Huerta MD - Last Filed: 03/13/25 07:09> Exam 2 Narrative: GENERAL: [Well-appearing, well-nourished, and in no acute distress.] HEAD: [Normocephalic, atraumatic.] EYES: [PERRLA and EOMI.] ENT: Nares clear, no rhinorrhea or epistaxis. Mucous membranes moist. NECK: Supple. CHEST: [Clear to auscultation. No respiratory distress.] HEART: [Regular rate and rhythm]. No murmur heard. [Normal peripheral pulses.] ABDOMEN: [Soft, nondistended], reproducible tenderness to palpation the right lower quadrant and suprapubic region on the right side. No inguinal masses palpable, no testicular enlargement testicular swelling. No penile tenderness, [No rigidity or guarding] EXTREMITIES: Normal range of motion. [No edema.] SKIN: Warm, dry, no rash. NEURO: [No focal deficits]. Alert and oriented [x3.] PSYCH: [Normal mood and affect.] <Lawrence Huerta MD - Last Filed: 03/13/25 07:09> Course Course Emergency Course: Patient signed out to me pending scrotal ultrasound and reassessment although likely admission given requiring multiple rounds of pain medication and he was seen within the past week for the same. Now with developing CT findings although not with conclusive evidence of bowel obstruction. Patient is reassessed and he is continuing to have pain although he has been due for his next PRN dose. Discussed with consulting solution manager hospitalist Dr Harris . I noted that this is a partial SBO rather than complete and patient is still passing stool/flatus per report but hospitalist requested general surgery consultation. machine scallop cutter Dr Garcia was paged a few times but ultimately bed orders were placed and patient had been released a bed before a call back was receive. Order has been placed and I will discuss with Dr Garcia if/when he calls back. <Bridget Valente MD - Last Filed: 03/13/25 09:44> Vital Signs Vital signs: Vital Signs Temperature 98.6 F 03/13/25 03:03 Pulse Rate 88 03/13/25 03:03 Respiratory Rate 20 03/13/25 03:03 Blood Pressure 141/94 H 03/13/25 03:03 Pulse Oximetry 98 03/13/25 03:03 Oxygen Delivery Room Air 03/13/25 03:03 Temperature 98.4 F 03/13/25 07:05 Pulse Rate 74 03/13/25 07:21 Respiratory Rate 16 03/13/25 07:21 Blood Pressure 131/82 03/13/25 07:21 Pulse Oximetry 94 03/13/25 07:21 Oxygen Delivery Room Air 03/13/25 03:03 <Lawrence Huerta MD - Last Filed: 03/13/25 07:09> Vital Signs Temperature 98.6 F 03/13/25 03:03 Pulse Rate 88 03/13/25 03:03 Respiratory Rate 20 03/13/25 03:03 Blood Pressure 141/94 H 03/13/25 03:03 Pulse Oximetry 98 03/13/25 03:03 Oxygen Delivery Room Air 03/13/25 03:03 Temperature 98.4 F 03/13/25 07:05 Pulse Rate 74 03/13/25 07:21 Respiratory Rate 16 03/13/25 07:21 Blood Pressure 131/82 03/13/25 07:21 Pulse Oximetry 94 03/13/25 07:21 Oxygen Delivery Room Air 03/13/25 03:03 <Brdiget Valente MD - Last Filed: 03/13/25 09:44> MDM - Abdominal Pain MDM Narrative Medical decision making narrative: 55-year-old male with a history of complex multiple abdominal surgeries including partial small-bowel obstruction, adhesiolysis, bowel resection from diverticulitis, appendicitis status post appendectomy, cholecystitis status post cholecystectomy. He has also had a left-sided inguinal hernia status post mesh repair x2. Presents to the emergency department with ongoing abdominal pain. He was just seen in the emergency department several days ago by myself and had unremarkable workup and unremarkable CT scans. He was discharged home after feeling improvement. He states he does not taking the Bentyl at home and still having some intermittent pain. Last bowel movement was 3 days ago and was abnormal to him. Endorses some nauseousness and pain in the right-sided lower quadrant radiating into his right groin. No testicular pain testicular masses. No swelling in his testicle. No dysuria. No trauma or injury. Denies any fever, chills, recent antibiotics. No chest pain or difficulty breathing. No recent surgeries. Patient is hemodynamically stable not any acute distress. He has reproducible pain in the suprapubic and right lower quadrant area. No overlying skin changes or obvious hernia/masses. Given patient's complex medical and surgical history he is high risk for intra-abdominal pathology such as pain from previous adhesions, small-bowel obstruction, partial bowel obstruction, stump appendicitis, inguinal hernia, internal hernia, less likely spermatic cord pathology or any testicular pathology given lack of pain or swelling in this region on exam. Patient was given morphine and Zofran as well as a fluid bolus. Laboratory studies obtained including lactic acid a CT scan with contrast was obtained. Patient re-evaluated after initial rounds of morphine and had some mild improvement but states he feels more less the same. States his abdominal pain is slightly better but his pain going into his testicle is slightly worse. Testicular exam is unrevealing without any overt signs of torsion or overlying skin changes concerning for cellulitis. Scrotal ultrasound was ordered this time. No leukocytosis or anemia on labs per normal platelet count. Electrolytes are unrevealing, normal glucose, negative lactic acid, normal LFTs. Normal lipase. Urinalysis unrevealing. CT scan shows some dilated fluid- filled bowel loops with large differential including ileus, enteritis or partial obstruction. Patient is pending ultrasound. I discussed with the patient that if ultrasound is unremarkable he will likely be admitted for pain control at minimum given his progression of symptoms from evaluations several days ago but he is tolerating oral intake and not nauseous or vomiting, low clinical index of suspicion for obstructive process. Patient care signed over to oncoming ER physician pending ultrasound and admission. <Lawrence Huerta MD - Last Filed: 03/13/25 07:09> Medical Records Attestation: I reviewed the patient's medical records. <Lawrence Huerta MD - Last Filed: 03/13/25 07:09> Lab Data Attestation: I reviewed the patient's lab results. <Lawrence Huerta MD - Last Filed: 03/13/25 07:09> Result diagrams: 03/13/25 03:41 03/13/25 03:41 <Lawrence Huerta MD - Last Filed: 03/13/25 07:09> Labs: Lab Results 03/13/25 03/13/25 03/13/25 Range/Units 03:41 04:15 05:18 WBC 7.7 (4.5-10.0) K/mm3 RBC 5.16 (4.6-6.20) M/mm3 Hgb 13.6 L (14.0-18.0) g/dL Hct 41.6 L (42.0-52.0) % MCV 80.6 (80-100) fl MCH 26.4 (26-34) pg MCHC 32.7 (32-36) g/dl RDW 13.8 (11.5-14.5) % Plt Count 271 (150-375) k/mm3 MPV 8.9 (7.4-10.4) fl Immature Gran % (Auto) 0.3 (0-0.5) % Neut % (Auto) 54.4 (45.5-73.1) % Lymph % (Auto) 35.7 (18.3-44.2) % [place] % (Auto) 7.9 (2.6-8.5) % Eos % (Auto) 1.2 (0-4.4) % Baso % (Auto) 0.5 (0.2-1.2) % Lymph # (Auto) 2.75 (0.9-3.2) K/mm3 [place] # (Auto) 0.6 (0.1-0.6) K/mm3 Eos # (Auto) 0.1 (0-0.3) K/mm3 Baso # (Auto) 0.0 (0.0-0.1) K/mm3 Abs Immat Gran (auto) 0.02 (0.00-0.031) K/mm3 Absolute Neuts (auto) 4.2 (1.3-6.7) K/mm3 Absolute Nucleated RBC 0.000 (0.0-0.012) K/mm3 Nucleated RBC % 0.0 (0.0-0.2) % Sodium 132 L (137-145) mmol/L Potassium 3.9 (3.4-5.0) mmol/L Chloride 99 (98-107) mmol/L Carbon Dioxide 24 (22-30) mmol/L Anion Gap 9 (4-12) mmol/L BUN 15 (9-20) mg/dL Creatinine 1.00 (0.7-1.3) mg/dL Estim Creat Clear Calc 78 ml/min Estimated GFR > 60 (59 - ) Glucose 138 H (65-110) mg/dL Lactic Acid 1.6 (0.7-2.0) mmol/L Calcium 9.2 (8.4-10.2) mg/dL Total Bilirubin 0.5 (0.2-1.3) mg/dL AST 32 (17-59) U/L ALT 37 (6-50) U/L Alkaline Phosphatase 47 (38-126) U/L Total Protein 7.8 (6.3-8.2) g/dL Albumin 4.5 (3.5-5.1) g/dL Lipase 185 (23-300) U/L Urine Color Yellow (Yellow) Urine Appearance Clear (Clear) Urine pH 5.5 (5.0-9.0) Ur Specific [place] 1.045 H (1.001-1.035) Urine Protein Negative (Negative) mg/dL Urine Glucose (UA) Negative (Negative) mg/dL Urine Ketones Negative (Negative) mg/dL Ur Blood (Man) Negative (Negative) Urine Nitrate Negative (Negative) Urine Bilirubin Negative (Negative) Urine Urobilinogen 0.2 (<2.0) mg/dL Leukocyte Esterase Rfl Negative (Negative) DESTINEY/UL <Lawrence Huerta MD - Last Filed: 03/13/25 07:09> Lab Results 03/13/25 03/13/25 03/13/25 Range/Units 03:41 04:15 05:18 WBC 7.7 (4.5-10.0) K/mm3 RBC 5.16 (4.6-6.20) M/mm3 Hgb 13.6 L (14.0-18.0) g/dL Hct 41.6 L (42.0-52.0) % MCV 80.6 (80-100) fl MCH 26.4 (26-34) pg MCHC 32.7 (32-36) g/dl RDW 13.8 (11.5-14.5) % Plt Count 271 (150-375) k/mm3 MPV 8.9 (7.4-10.4) fl Immature Gran % (Auto) 0.3 (0-0.5) % Neut % (Auto) 54.4 (45.5-73.1) % Lymph % (Auto) 35.7 (18.3-44.2) % [place] % (Auto) 7.9 (2.6-8.5) % Eos % (Auto) 1.2 (0-4.4) % Baso % (Auto) 0.5 (0.2-1.2) % Lymph # (Auto) 2.75 (0.9-3.2) K/mm3 [place] # (Auto) 0.6 (0.1-0.6) K/mm3 Eos # (Auto) 0.1 (0-0.3) K/mm3 Baso # (Auto) 0.0 (0.0-0.1) K/mm3 Abs Immat Gran (auto) 0.02 (0.00-0.031) K/mm3 Absolute Neuts (auto) 4.2 (1.3-6.7) K/mm3 Absolute Nucleated RBC 0.000 (0.0-0.012) K/mm3 Nucleated RBC % 0.0 (0.0-0.2) % Sodium 132 L (137-145) mmol/L Potassium 3.9 (3.4-5.0) mmol/L Chloride 99 (98-107) mmol/L Carbon Dioxide 24 (22-30) mmol/L Anion Gap 9 (4-12) mmol/L BUN 15 (9-20) mg/dL Creatinine 1.00 (0.7-1.3) mg/dL Estim Creat Clear Calc 78 ml/min Estimated GFR > 60 (59 - ) Glucose 138 H (65-110) mg/dL Lactic Acid 1.6 (0.7-2.0) mmol/L Calcium 9.2 (8.4-10.2) mg/dL Total Bilirubin 0.5 (0.2-1.3) mg/dL AST 32 (17-59) U/L ALT 37 (6-50) U/L Alkaline Phosphatase 47 (38-126) U/L Total Protein 7.8 (6.3-8.2) g/dL Albumin 4.5 (3.5-5.1) g/dL Lipase 185 (23-300) U/L Urine Color Yellow (Yellow) Urine Appearance Clear (Clear) Urine pH 5.5 (5.0-9.0) Ur Specific [place] 1.045 H (1.001-1.035) Urine Protein Negative (Negative) mg/dL Urine Glucose (UA) Negative (Negative) mg/dL Urine Ketones Negative (Negative) mg/dL Ur Blood (Man) Negative (Negative) Urine Nitrate Negative (Negative) Urine Bilirubin Negative (Negative) Urine Urobilinogen 0.2 (<2.0) mg/dL Leukocyte Esterase Rfl Negative (Negative) DESTINEY/UL <Bridget Valente MD - Last Filed: 03/13/25 09:44> Imaging Data Attestation: I personally reviewed and interpreted this imaging study as follows: < Lawrence Huerta MD - Last Filed: 03/13/25 07:09> My impression: Impressions Abdomen/Pelvis CT 03/13/25 06:12 IMPRESSION: 1. Fluid-filled distended small bowel loops with air-fluid levels. Differential diagnosis includes ileus, enteritis and partial obstruction. <Lawrence Huerta MD - Last Filed: 03/13/25 07:09> Radiologist's impression: ITS Impressions Abdomen/Pelvis CT 03/13/25 06:12 IMPRESSION: 1. Fluid-filled distended small bowel loops with air-fluid levels. Differential diagnosis includes ileus, enteritis and partial obstruction. Scrotum Ultrasound 03/13/25 08:01 IMPRESSION: 1. Unremarkable testicular ultrasound. <Lawrence Huerta MD - Last Filed: 03/13/25 07:09> ITS Impressions Abdomen/Pelvis CT 03/13/25 06:12 IMPRESSION: 1. Fluid-filled distended small bowel loops with air-fluid levels. Differential diagnosis includes ileus, enteritis and partial obstruction. Scrotum Ultrasound 03/13/25 08:01 IMPRESSION: 1. Unremarkable testicular ultrasound. <Bridget Valente MD - Last Filed: 03/13/25 09:44> Discharge Plan Discharge Clinical Impression: Abdominal pain, acute, right lower quadrant, Pain in right testicle, History of major abdominal surgery, Abnormal CT of the abdomen <Lawrence Huerta MD - Last Filed: 03/13/25 07:09> Patient Disposition: Still a Patient <Lawrence Huerta MD - Last Filed: 03/13/25 07:09> Condition: Stable <Lawrence Huerta MD - Last Filed: 03/13/25 07:09> Instructions: Antibiotic Form <Lawrence Huerta MD - Last Filed: 03/13/25 07:09> Patient Language: O[place]i <Lawrence Huerta MD - Last Filed: 03/13/25 07:09> Prescriptions: No Action trazodone 100 mg tablet 100 mg PO HS modafinil 100 mg tablet 100 mg PO DAILY PRN (Reason: Systemic Signs And Symptoms) Rx Instructions: Takes for ADD escitalopram oxalate 20 mg tablet 20 mg PO DAILY Ozempic 1 mg/dose (4 mg/3 mL) pen injector 1 mg subcut WEEKLY ondansetron 4 mg tablet,disintegrating 4 mg PO Q4H 0 Days Qty: 10 0RF Rx Instructions: give 1st dose 30min before emetogenic chemo dicyclomine 20 mg tablet 20 mg PO QID Qty: 20 0RF famotidine [Pepcid AC] 20 mg tablet 20 mg PO DAILY PRN (Reason: Indigestion) sennosides-docusate sodium [Senokot-S] 8.6-50 mg Tablet 1 tab PO Q12HR PRN (Reason: constipation) Qty: 60 0RF docusate sodium 100 mg Capsule 100 mg PO Q12HR PRN (Reason: constipation) Qty: 60 0RF ondansetron 4 mg tablet,disintegrating 4 mg PO Q6H PRN (Reason: nausea and vomiting) Qty: 30 0RF ondansetron 4 mg tablet,disintegrating 4 mg PO Q8H Qty: 14 0RF ondansetron 4 mg tablet,disintegrating 4 mg PO Q6H PRN (Reason: nausea and vomiting) Qty: 7 0RF docusate sodium 100 mg capsule 100 mg PO BID Qty: 60 0RF polyethylene glycol 3350 17 gram/dose powder 17 g PO DAILY Qty: 238 0RF ondansetron 4 mg tablet,disintegrating 4 mg PO Q8H Qty: 14 0RF omeprazole magnesium [Prilosec OTC] 20 mg tablet,delayed release (DR/EC) 20 mg PO DAILY Qty: 10 0RF <Lawrence Huerta MD - Last Filed: 03/13/25 07:09> Follow-up/Referrals: Juan,Nathan Ramos MD [Primary Care Provider] - <Lawrence Huerta MD - Last Filed: 03/13/25 07:09>
[2025-03-13] MEDS: MORPHINE SULFATE (*CRX) 4 MG/ML INJ IV PUSH ×7 (04:16→18:53)
[2025-03-13] MEDS: ONDANSETRON INJ 4 MG/2 ML VIAL IV PUSH (04:16)
[2025-03-13] MEDS: SODIUM CHLORIDE 0.9% IV 1,000 ML 999 ML IV CONT (04:16)
[2025-03-13 04:29] LABS: Alanine Aminotransferase 37 U/L (6-50); Albumin Level 4.5 g/dL (3.5-5.1); Alkaline Phosphatase 47 U/L (38-126); Anion Gap 9 mmol/L (4-12); Aspartate Amino Transferase 32 U/L (17-59); Bilirubin,Total 0.5 mg/dL (0.2-1.3); Blood Urea Nitrogen 15 mg/dL (9-20); Calcium 9.2 mg/dL (8.4-10.2); Carbon Dioxide 24 mmol/L (22-30); Chloride 99 mmol/L (98-107); Estimated CRCL calculation 78 ml/min; Estimated Glomerular Filt Rate > 60; Glucose 138 mg/dL (65-110); Lipase 185 U/L (23-300); Potassium 3.9 mmol/L (3.4-5.0); Sodium 132 mmol/L (137-145); Total Protein 7.8 g/dL (6.3-8.2)
[2025-03-13 06:12] LABS: Add Urine Microscopic? NO; Appearance Urine Clear (Clear); Glucose Urine UA Negative (Negative); Leukocyte Esterase Ur Negative LEU/UL (Negative); Nitrate Urine Negative (Negative); Specific Grav Ur 1.045 (1.001-1.035)
[2025-03-13] MEDS: HYDROmorphone HCL INJ (*CRX) 2 MG/ML VIAL 0.5 MG IV PUSH ×3 (07:02→23:28)
[2025-03-13] MEDS: LACTATED RINGERS 1,000 ML 125 ML IV CONT (09:07)
--- NOTE | 2025-03-13 10:29 | P.CONGS_ITS ---
Assessment and Plan Assessment and plan (1) Partial small bowel obstruction: Code(s): K56.600 - Partial intestinal obstruction, unspecified as to cause Status: Acute Assessment and Plan: * CT scan showing mildly dilated small bowel without an obvious transition point. Could be an ileus vs partial small bowel obstruction from adhesions. Patient does have an extensive surgical history including multiple previous abdominal surgeries described in the HPI that could cause intraabdominal adhesions. WBC count and lactic acid normal. He does not have any peritoneal signs on exam. Will order a water-soluble small bowel follow through to further evaluate the possible small bowel obstruction. If contrast moves through to the colon, then we can start advancing his diet. If there is a high-grade SBO, then he will need surgical management. Continue bowel rest and IV fluids for now. (2) Chronic abdominal pain: Code(s): R10.9 - Unspecified abdominal pain; G89.29 - Other chronic pain Status: Acute Assessment and Plan: * The patient deals with chronic abdominal pain that has become more frequent over the past few years. There are times his pain is related to small bowel obstructions, but he also has multiple ER visits where his CT scans show no acute intraabdominal process or obstruction. It seems like there is a separate etiology for his chronic abdominal pain that is not related to recurrent small bowel obstructions. He has had workup by GI in the past without any definitive diagnosis. His symptoms also became more frequent and more intense after starting Ozempic over a year ago. I would agree with stopping Ozempic and choosing a different agent for treating his diabetes. His PCP is currently trying to wean him off Ozempic. Could also consider GI evaluation at a tertiary care facility as an outpatient if he continues to have persistent symptoms after stopping Ozempic and if they aren't related to obstructions. (3) History of major abdominal surgery: Code(s): Z98.890 - Other specified postprocedural states Status: Acute (4) Type 2 diabetes mellitus: Qualifiers: Diabetes mellitus complication status: without complication Diabetes mellitus usp insulin use: without usp use Qualified Code(s): E11.9 - Type 2 diabetes mellitus without complications Code(s): E11.9 - Type 2 diabetes mellitus without complications Status: Acute (5) PTSD (post-traumatic stress disorder): Code(s): F43.10 - Post-traumatic stress disorder, unspecified Status: Chronic Plan I have discussed the patient's case and plan of care with Dr. Garcia. History of Present Illness Consult details Consult date: 03/13/25 Reason for consult: other (Small-bowel obstruction) Requesting physician: Kajal Harris MD Narrative: This is a 55-year-old male with a history of multiple previous small-bowel obstructions, multiple abdominal surgeries, type 2 diabetes mellitus, and chronic abdominal pain, who we have been asked to see in surgical consultation for small-bowel obstruction. In review of his electronic medical record, he has had multiple visits to the ED for abdominal pain. He has been admitted on multiple occasions for small-bowel obstructions that were treated conservatively at this hospital. He does have a history of laparoscopic cholecystectomy, laparoscopic appendectomy, laparoscopic hiatal hernia repair, open sigmoid colon resection for diverticulitis, open left inguinal hernia repair with mesh x2, and laparotomy with adhesiolysis for small bowel obstruction about 7 years ago in [place]. He has not had surgical management for any other small-bowel obstructions. He came into the ED early this morning with complaints of abdominal pain. He was evaluated in the ED last Thursday for abdominal pain with unremarkable workup and a CT scan of the abdomen and pelvis showing no acute intra-abdominal process. Once discharged, he was taking Bentyl as needed for his abdominal pain and felt like it did improve some. He was having bowel movements at that time. He was only eating soft foods and liquids. Over the weekend, his pain became more severe. He reports radiating pain from his RLQ down into his right testicle. He did not notice any changes in his right testicle and reports it was not tender. He had nausea and dry heaving. He was no longer passing gas and his last BM was last . Due to his persistent symptoms, he came into the ED for evaluation. Labs were again unremarkable. CT abdomen/pelvis showed fluid-filled distended small bowel loops with air-fluid levels, consistent with ileus versus enteritis versus partial small bowel obstruction. Scrotal ultrasound normal. He was admitted for further treatment. He continues to have diffuse abdominal pain worse on the right side. He feels nauseous this morning but has not had any vomiting or dry heaving since admission. Still not passing flatus. He has dealt with chronic abdominal pain for almost 30 years. He has recurrent small-bowel obstructions that typically resolve with conservative management. He reports this has become more frequent over the past year and a half. He feels the symptoms have progressively become worse after starting Ozempic for diabetes around that time. He has spoke with his PCP about this in their plan is to titrate him off the medication. He feels like he has abdominal pain at least monthly, if not more. Last year, he was admitted 3 times with an NG tube for a SBO. 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 He has been in our ER 4 times already this year with multiple of the recent CT scans showing no acute intraabdominal process. He has been evaluated by GI multiple times in the past without any definitive diagnosis. He has had 1-2 colonoscopies in the past 4 years without any specific findings per the patient. Review of Systems 2 Review of Systems: All systems reviewed & are unremarkable except as noted in HPI and below PMFSH Past Medical History Medical History Posttraumatic stress disorder Type 2 diabetes mellitus History of small bowel obstruction Depression Diverticulitis Surgical History Surgical History History of left inguinal hernia repair x2 History of orthopedic surgery Right ankle and hand surgery. History of laparoscopic appendectomy Status post laparoscopic Ludmila fundoplication History of laparoscopic cholecystectomy History of exploratory laparotomy With adhesiolysis for small bowel obstruction in [place] around 2017 History of colon resection Open sigmoid colon resection for diverticulitis in [place] around 2014 Family History Family History Father Heart disease Grandparent Lung cancer Social History Social History Social History: Surrogate medical decision maker: Annelise Garcia, significant other. Code status: Full code. Smoking status: Never smoker Alcohol intake: current Drinks per week: 1 Substance use: never Substance use type: does not use Do You Feel Safe in your Home?: Yes Lack of Transportation: No Lack of Food: Never True Current Housing: I Have Housing Concerned About Future Housing: No Difficulty Paying Gas/Electric Bills: No Difficulty Paying for Meds: No Currently Unemployed: No Education: High School Diploma/GED Difficulty w/ Childcare or Family Care: No Additional living arrangements comments: Lives in [place] with significant other. He has 1 son. Additional occupation/education comments: Served in the [employer]. 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 Spiritual care concerns: No Meds Home Medications and Allergies Home Medications ?Medication ?Instructions ?Recorded ?Confirmed ?Type escitalopram oxalate 20 mg tablet 20 mg PO DAILY 07/18/21 08/27/24 History modafinil 100 mg tablet 100 mg PO DAILY PRN Systemic Signs 07/18/21 08/27/24 History And Symptoms trazodone 100 mg tablet 100 mg PO HS 07/18/21 08/27/24 History famotidine 20 mg tablet (Pepcid AC) 20 mg PO DAILY PRN Indigestion 02/02/23 08/27/24 History docusate sodium 100 mg capsule 100 mg PO Q12HR PRN constipation 12/06/23 08/27/24 Rx #60 caps ondansetron 4 mg disintegrating 4 mg PO Q6H PRN nausea and 12/06/23 01/24/24 Rx tablet vomiting #30 tabs sennosides 8.6 mg-docusate sodium 1 tab PO Q12HR PRN constipation 12/06/23 08/27/24 Rx 50 mg tablet (Senokot-S) #60 tabs ondansetron 4 mg disintegrating 4 mg PO Q8H #14 tabs 01/05/24 08/27/24 Rx tablet ondansetron 4 mg disintegrating 4 mg PO Q6H PRN nausea and 01/17/24 08/27/24 Rx tablet vomiting #7 tabs docusate sodium 100 mg capsule 100 mg PO BID #60 caps 01/25/24 08/27/24 Rx ondansetron 4 mg disintegrating 4 mg PO Q8H #14 tabs 01/25/24 Rx tablet polyethylene glycol 3350 17 17 g PO DAILY #238 grams 01/25/24 08/27/24 Rx gram/dose oral powder omeprazole magnesium 20 mg 20 mg PO DAILY esophagitis #10 tabs 05/03/24 08/27/24 Rx tablet,delayed release (Prilosec OTC) dicyclomine 20 mg tablet 20 mg PO QID #20 tabs 08/27/24 Rx ondansetron 4 mg disintegrating 4 mg PO Q4H 3 doses #10 tabs 08/27/24 Rx tablet semaglutide 1 mg/dose (4 mg/3 mL) 1 mg subcut WEEKLY 08/27/24 08/27/24 History subcutaneous pen injector (Ozempic) Allergies Allergy/AdvReac Type Severity Reaction Status Date / Time ketorolac (From Toradol) Allergy Hives Verified 11/10/24 20:18 gabapentin AdvReac Anxiety Verified 03/13/25 07:09 promethazine (From Phenergan) AdvReac Anxiety Verified 03/13/25 07:09 zolpidem (From Ambien) AdvReac Other Verified 11/10/24 20:18 Vital Signs Vital Signs - 24 hr 03/13/25 03:03 03/13/25 03:06 03/13/25 03:30 Temperature 98.6 F Pulse Rate 88 92 86 Respiratory Rate 20 15 20 Blood Pressure 141/94 H 141/94 H 131/85 Pulse Oximetry 98 97 96 Oxygen Delivery Room Air 03/13/25 03:51 03/13/25 04:00 03/13/25 04:30 Temperature 97.9 F Pulse Rate 83 82 83 Respiratory Rate 18 19 13 Blood Pressure 131/85 135/85 135/83 Pulse Oximetry 99 95 95 Oxygen Delivery 03/13/25 05:21 03/13/25 07:05 03/13/25 07:21 Temperature 98.4 F 98.4 F Pulse Rate 81 84 74 Respiratory Rate 18 18 16 Blood Pressure 141/84 H 141/92 H 131/82 Pulse Oximetry 97 97 94 Oxygen Delivery 03/13/25 07:22 03/13/25 07:30 03/13/25 08:00 Temperature Pulse Rate 75 79 75 Respiratory Rate 20 14 15 Blood Pressure 131/82 132/81 126/81 Pulse Oximetry 97 95 94 Oxygen Delivery 03/13/25 08:31 03/13/25 09:00 03/13/25 09:30 Temperature Pulse Rate 78 73 72 Respiratory Rate 12 13 16 Blood Pressure 130/85 121/81 120/81 Pulse Oximetry 95 94 95 Oxygen Delivery 03/13/25 10:00 Temperature Pulse Rate 73 Respiratory Rate 16 Blood Pressure 122/81 Pulse Oximetry 94 Oxygen Delivery Exam 2 Const: General: comfortable and no acute distress Nutritional Appearance: a verage body habitus Orientation/consciousness: patient oriented x3 HENMT: Head: normocephalic and atraumatic Ears: hearing grossly normal bilaterally Mouth: Yes moist mucous membranes Eyes: General: appearance normal, both eyes and all related structures P upils: Equal, round and reactive pupils present Neck: Neck: normal visual inspection and full ROM Resp: Effort & Inspection: no respiratory distress Auscultation: clear to auscultation bilaterally Cardio: Rate: regular rate Rhythm: regular rhythm Peripheral pulses: P eripheral pulses 2+ throughout GI: Inspection: non-distended, scar (midline scar, left groin scar) and no visible herniation GI Palp: Yes Soft to palpation, Yes Tenderness to palpation present (GI) (diffuse, mild), No Guarding due to palpation present (GI), Yes No hepatosplenomegaly present and No Rebound tenderness present A uscultation: Hypoactive bowel sounds present Rectal Exam: deferred : Male General Exam: No hernia (no inguinal hernia noted bilaterally) and Yes other (tenderness over right groin, no skin abnormalities overlying this area) Penis: Yes normal penis Scrotum: scrotum normal Testes: Testes normal Skin: General skin exam: normal color Neuro: General: moves all extremities and no focal motor deficits Speech: n ormal speech Motor exam (neuro): 5/5 motor strength present throughout Extrem: General: normal to inspection and no edema Psych: Mental Status: mental status grossly normal Attitude: cooperative Insight: Good insight present (Psych) Judgement: Good judgement present (Psych) Results Labs 03/13/25 03:41 03/13/25 03:41 Labs: Abnormal lab results 03/13/25 03/13/25 Range/Units 03:41 05:18 Hgb 13.6 L (14.0-18.0) g/dL Hct 41.6 L (42.0-52.0) % Sodium 132 L (137-145) mmol/L Glucose 138 H (65-110) mg/dL Ur Specific [place] 1.045 H (1.001-1.035) Diabetes panel 03/13/25 Range/Units 03:41 Sodium 132 L (137-145) mmol/L Potassium 3.9 (3.4-5.0) mmol/L Chloride 99 (98-107) mmol/L Carbon Dioxide 24 (22-30) mmol/L BUN 15 (9-20) mg/dL Creatinine 1.00 (0.7-1.3) mg/dL Glucose 138 H (65-110) mg/dL Calcium 9.2 (8.4-10.2) mg/dL AST 32 (17-59) U/L ALT 37 (6-50) U/L Alkaline Phosphatase 47 (38-126) U/L Total Protein 7.8 (6.3-8.2) g/dL Albumin 4.5 (3.5-5.1) g/dL Calcium panel 03/13/25 Range/Units 03:41 Calcium 9.2 (8.4-10.2) mg/dL Albumin 4.5 (3.5-5.1) g/dL Pituitary panel 03/13/25 Range/Units 03:41 Sodium 132 L (137-145) mmol/L Potassium 3.9 (3.4-5.0) mmol/L Chloride 99 (98-107) mmol/L Carbon Dioxide 24 (22-30) mmol/L BUN 15 (9-20) mg/dL Creatinine 1.00 (0.7-1.3) mg/dL Glucose 138 H (65-110) mg/dL Calcium 9.2 (8.4-10.2) mg/dL Adrenal panel 03/13/25 Range/Units 03:41 Sodium 132 L (137-145) mmol/L Potassium 3.9 (3.4-5.0) mmol/L Chloride 99 (98-107) mmol/L Carbon Dioxide 24 (22-30) mmol/L BUN 15 (9-20) mg/dL Creatinine 1.00 (0.7-1.3) mg/dL Glucose 138 H (65-110) mg/dL Calcium 9.2 (8.4-10.2) mg/dL Total Bilirubin 0.5 (0.2-1.3) mg/dL AST 32 (17-59) U/L ALT 37 (6-50) U/L Alkaline Phosphatase 47 (38-126) U/L Total Protein 7.8 (6.3-8.2) g/dL Albumin 4.5 (3.5-5.1) g/dL All other labs normal. Imaging Additional studies: ITS Impressions Abdomen/Pelvis CT 03/13/25 06:12 IMPRESSION: 1. Fluid-filled distended small bowel loops with air-fluid levels. Differential diagnosis includes ileus, enteritis and partial obstruction. Scrotum Ultrasound 03/13/25 08:01 IMPRESSION: 1. Unremarkable testicular ultrasound.
--- NOTE | 2025-03-13 10:51 | ADMGEN ---
This patient, Erich Allen, was admitted to 3 [facility] Surg Room 320-01. Patient/family oriented to hospital policies and general routines including ID bracelet, bed and alarms, visiting hours, pain management, procedures, bathroom and other care routines, personal items, smoking policy, room service/diet, and visiting hours. Information on how to activate the Rapid Response Team has been discussed. Patient/Family are encouraged to report perceived risks to care and to ask questions if they do not understand what they are told or what they should do.
--- NOTE | 2025-03-13 13:05 | P.HP_ITS ---
H&P: HPI History of Present Illness Date/Time: 03/13/25 13:05 Chief Complaint: Abdominal pain. Narrative: This is a 55-year-old male with history of several abdominal surgeries including open sigmoid colon resection for diverticulitis, laparoscopic appendectomy, laparoscopic cholecystectomy, laparoscopic hiatal hernia repair, open left inguinal hernia repair with mesh, and laparotomy with adhesiolysis for small- bowel obstruction; partial small-bowel obstruction; and type 2 diabetes mellitus who presented to the emergency department via private vehicle with complaints of abdominal pain. He has dealt with chronic abdominal pain for the last 30 years after returning from the [place] and [facility] doctors [facility] have classified him as having [place] syndrome. He has intermittent episodes of severe abdominal pain with descriptors of gnawing, cramping, and pressure-like pain at different times. There really is no pattern as to when the pain presents but he has always wondered if some of it may be related to stress. The episodes seem to be getting more frequent over the past year and a half, not long after starting Ozempic, and he and his doctor are in the process of weaning him off of the drug. He has had a couple of colonoscopies in the last several years which were reportedly unremarkable. He has been admitted to the hospital 3 times within the last year requiring NG tube for small-bowel obstructions, and he has been seen in our ED 4 times so far this year with similar complaints. More recently he was seen in the ED just a few days ago and is workup was pretty unrevealing at that time. He m aybe felt a little bit better at time of discharge and he reports having a normal bowel movement on the same day. However since that time his pain has become increasingly worse and is now radiating down into the right testicle. He has put himself on bowel rest and is only having clear liquids without much benefit. He complains of nausea and dry heaves. He has not been passing gas and feels distended. He denies fever, chest pain, shortness of breath, vomiting, melena, hematochezia, dysuria, and hematuria. In the ED: Vital signs were stable on arrival. Labs were significant for WBC count of 7.7, hemoglobin 13.6, sodium 132, creatinine 1.00, lactic acid 1.6. CT of the abdomen pelvis showed fluid filled distended small-bowel loops with air- fluid levels with a differential diagnosis include ileus, enteritis, and partial obstruction. Scrotum ultrasound was unremarkable. He was given a L of normal saline, analgesics, antiemetics and he is being admitted in this setting for supportive care, close monitoring, and surgery consultation. Review of Systems Review of Systems: 12 systems were reviewed and are negativ e except for as per HPI. FORMERLY [facility] Past Medical History Medical History Posttraumatic stress disorder Type 2 diabetes mellitus History of small bowel obstruction Depression Diverticulitis Surgical History Surgical History History of left inguinal hernia repair x2 History of orthopedic surgery Right ankle and hand surgery. History of laparoscopic appendectomy Status post laparoscopic Ludmila fundoplication History of laparoscopic cholecystectomy History of exploratory laparotomy With adhesiolysis for small bowel obstruction in [place] around 2017 History of colon resection Open sigmoid colon resection for diverticulitis in [place] around 2014 Family History Family History Father Heart disease Grandparent Lung cancer Social History Social History Social History: Surrogate medical decision maker: Annelise Garcia, significant other. Code status: Full code. Smoking status: Never smoker Alcohol intake: current Drinks per week: 1 Substance use: never Substance use type: does not use Do You Feel Safe in your Home?: Yes Lack of Transportation: No Lack of Food: Never True Current Housing: I Have Housing Concerned About Future Housing: No Difficulty Paying Gas/Electric Bills: No Difficulty Paying for Meds: No Currently Unemployed: No Education: High School Diploma/GED Difficulty w/ Childcare or Family Care: No Additional living arrangements comments: Lives in [place] with significant other. He has 1 son. Additional occupation/education comments: Served in the [employer]. 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 Spiritual care concerns: No Meds Home Medications and Allergies Home Medications ?Medication ?Instructions ?Recorded ?Confirmed ?Type escitalopram oxalate 20 mg tablet 20 mg PO DAILY 07/18/21 03/13/25 History modafinil 100 mg tablet 100 mg PO DAILY PRN Systemic Signs 07/18/21 03/13/25 History And Symptoms trazodone 100 mg tablet 100 mg PO HS 07/18/21 03/13/25 History famotidine 20 mg tablet (Pepcid AC) 20 mg PO DAILY Indigestion 02/02/23 03/13/25 History docusate sodium 100 mg capsule 100 mg PO Q12HR PRN constipation 12/06/23 Rx #60 caps dicyclomine 20 mg tablet 20 mg PO QID #20 tabs 08/27/24 03/13/25 Rx ondansetron 4 mg disintegrating 4 mg PO Q4H 3 doses #10 tabs 08/27/24 03/13/25 Rx tablet semaglutide 1 mg/dose (4 mg/3 mL) 1 mg subcut WEEKLY 08/27/24 03/13/25 History subcutaneous pen injector (Ozempic) empagliflozin 10 mg tablet 10 mg PO DAILY 03/13/25 03/13/25 History (Jardiance) polyethylene glycol 3350 17 17 g PO DAILY PRN constipation 03/13/25 03/13/25 History gram/dose oral powder Allergies Allergy/AdvReac Type Severity Reaction Status Date / Time ketorolac (From Toradol) Allergy Hives Verified 11/10/24 20:18 gabapentin AdvReac Anxiety Verified 03/13/25 07:09 promethazine (From Phenergan) AdvReac Anxiety Verified 03/13/25 07:09 zolpidem (From Ambien) AdvReac Other Verified 11/10/24 20:18 Vital Signs Vital Signs - 24 hr 03/13/25 03:03 03/13/25 03:06 03/13/25 03:30 Temperature 98.6 F Pulse Rate 88 92 86 Respiratory Rate 20 15 20 Blood Pressure 141/94 H 141/94 H 131/85 Pulse Oximetry 98 97 96 Oxygen Delivery Room Air 03/13/25 03:51 03/13/25 04:00 03/13/25 04:30 Temperature 97.9 F Pulse Rate 83 82 83 Respiratory Rate 18 19 13 Blood Pressure 131/85 135/85 135/83 Pulse Oximetry 99 95 95 Oxygen Delivery 03/13/25 05:21 03/13/25 07:05 03/13/25 07:21 Temperature 98.4 F 98.4 F Pulse Rate 81 84 74 Respiratory Rate 18 18 16 Blood Pressure 141/84 H 141/92 H 131/82 Pulse Oximetry 97 97 94 Oxygen Delivery 03/13/25 07:22 03/13/25 07:30 03/13/25 08:00 Temperature Pulse Rate 75 79 75 Respiratory Rate 20 14 15 Blood Pressure 131/82 132/81 126/81 Pulse Oximetry 97 95 94 Oxygen Delivery 03/13/25 08:31 03/13/25 09:00 03/13/25 09:30 Temperature Pulse Rate 78 73 72 Respiratory Rate 12 13 16 Blood Pressure 130/85 121/81 120/81 Pulse Oximetry 95 94 95 Oxygen Delivery 03/13/25 10:00 03/13/25 10:45 Temperature 97.4 F L Pulse Rate 73 65 Respiratory Rate 16 18 Blood Pressure 122/81 132/79 Pulse Oximetry 94 98 Oxygen Delivery Exam Narrative: General: Nontoxic-appearing male supine in bed in no acute distress. Weight: 90.8 kg. BMI: 27.9. HEENT: Sclera anicteric. Tacky mucous membranes. Neck: Supple. Respiratory: Lungs are clear to auscultation bilaterally. Cardiovascular: Regular rate and rhythm with S1-S2. Gastrointestinal: Abdomen is soft and nondistended with hypoactive bowel sounds. He is mildly tender to palpation throughout the periumbilical region. No guarding or rebound tenderness. Skin: Warm and dry. No rash or lesions on limited exam. Extremities: No cyanosis, clubbing, or edema. Radial and pedal pulses intact. Neurological: Alert. Cranial nerves 2-12 are grossly intact. No gross focal deficits to casual conversation. Psychiatric: Pleasant and cooperative with normal mood and affect. Judgment and insight intact. H&P: Results Labs Labs: Short CBC 03/13/25 Range/Units 03:41 WBC 7.7 (4.5-10.0) K/mm3 Hgb 13.6 L (14.0-18.0) g/dL Hct 41.6 L (42.0-52.0) % Plt Count 271 (150-375) k/mm3 BMP 03/13/25 03:41 Sodium 132 L Potassium 3.9 Chloride 99 Carbon Dioxide 24 BUN 15 Creatinine 1.00 Glucose 138 H Calcium 9.2 Liver Function 03/13/25 Range/Units 03:41 Total Bilirubin 0.5 (0.2-1.3) mg/dL AST 32 (17-59) U/L ALT 37 (6-50) U/L Alkaline Phosphatase 47 (38-126) U/L Albumin 4.5 (3.5-5.1) g/dL Urine 03/13/25 Range/Units 05:18 Urine Color Yellow (Yellow) Urine Appearance Clear (Clear) Urine pH 5.5 (5.0-9.0) Ur Specific [place] 1.045 H (1.001-1.035) Urine Protein Negative (Negative) mg/dL Urine Glucose (UA) Negative (Negative) mg/dL Imaging Abdomen/Pelvis CT 03/13/25 06:12 IMPRESSION: 1. Fluid-filled distended small bowel loops with air-fluid levels. Differential diagnosis includes ileus, enteritis and partial obstruction. Scrotum Ultrasound 03/13/25 08:01 IMPRESSION: 1. Unremarkable testicular ultrasound. Assessment and Plan Assessment and plan (1) Partial small bowel obstruction: Code(s): K56.600 - Partial intestinal obstruction, unspecified as to cause Status: Acute (2) Chronic abdominal pain: Code(s): R10.9 - Unspecified abdominal pain; G89.29 - Other chronic pain Status: Acute (3) Type 2 diabetes mellitus: Qualifiers: Diabetes mellitus complication status: without complication Diabetes mellitus termite inspector insulin use: without termite inspector use Qualified Code(s): E11.9 - Type 2 diabetes mellitus without complications Code(s): E11.9 - Type 2 diabetes mellitus without complications Status: Acute Plan The patient presented to the emergency department for evaluation of recurrent abdominal pain, worse on the right side radiating to the groin, as detailed in HPI. Labs, imaging, EKG, and all reports were personally reviewed. CT scan showed mildly dilated small bowel without an obvious transition point which could represent ileus or partial small bowel obstruction from adhesions. He has had similar symptoms in the past. He is not actively vomiting thus will hold on NG tube insertion in place him on bowel rest. Surgery plans on doing a small bowel follow-through later today. Analgesics and antiemetics are available as needed however we did discuss that opioid pain medications should be limited. His primary care provider's are already weaning him off of Ozempic. Initiate sliding scale insulin, Accu-Cheks, and hypoglycemic protocol. Vital signs were reviewed and they have been stable. His home medications will be reviewed and resumed as appropriate. Findings and treatment plan were discussed with the patient. Questions were solicited and answered to satisfaction. The patient's medical management will be taken over by the hospitalist team in a.m. Quality VTE Prophylaxis VTE prophylaxis: pharmacologic ordered The patient has been admitted under observation status. Hospitalist MIPS Advance Care Plan I have confirmed that the patient's Advanced Care Plan is present, code status is documented, or surrogate decision maker is listed in patient medical record.: Yes Medication Reconciliation I have utilized all available resources to obtain, update and review the patients current medications (includes all prescriptions, OTC, herbals, cannab is, and nutritional supplements).: Yes
[2025-03-13] MEDS: INSULIN ASPART (*BKC) 100 UNITS/ML SUB-Q (18:16)
[2025-03-13] MEDS: LACTATED RINGERS 1,000 ML 100 ML IV CONT (23:24)
[2025-03-14] MEDS: HYDROmorphone HCL INJ (*CRX) 2 MG/ML VIAL 0.5 MG IV PUSH ×4 (02:36→10:34)
[2025-03-14 05:37] LABS: Hematocrit 40.5 % (42.0-52.0); Hemoglobin 13.3 g/dL (14.0-18.0); Mean Corpuscular HGB Conc 32.8 g/dl (32-36); Mean Corpuscular Hemoglobin 26.8 pg (26-34); Mean Corpuscular Volume 81.7 fl (80-100); Platelet Count Result 237 k/mm3 (150-375); Red Blood Count 4.96 M/mm3 (4.6-6.20); White Blood Count 5.3 K/mm3 (4.5-10.0)
[2025-03-14 05:47] LABS: Hemoglobin A1C 7.2 % (<5.7)
[2025-03-14 05:57] VITALS: BP 131/91; PULSE 68; RESP 16; TEMP 35.8; O2SAT 97
[2025-03-14 06:03] LABS: Anion Gap 8 mmol/L (4-12); Blood Urea Nitrogen 8 mg/dL (9-20); Calcium 8.8 mg/dL (8.4-10.2); Carbon Dioxide 26 mmol/L (22-30); Chloride 101 mmol/L (98-107); Estimated CRCL calculation 84 ml/min; Estimated Glomerular Filt Rate > 60; Glucose 129 mg/dL (65-110); Magnesium 2.1 mg/dL (1.6-2.3); Sodium 135 mmol/L (137-145)
[2025-03-14 06:12] LABS: Potassium 4.0 mmol/L (3.4-5.0)
[2025-03-14] MEDS: FAMOTIDINE 20 MG TABLET PO (08:41)
[2025-03-14] MEDS: ESCITALOPRAM OXALATE 10 MG TABLET 20 MG PO (08:41)
[2025-03-14] MEDS: EMPAGLIFLOZIN 10 MG TABLET PO (08:41)
[2025-03-14] MEDS: LACTATED RINGERS 1,000 ML 100 ML IV CONT ×2 (09:39→19:51)
--- NOTE | 2025-03-14 11:52 | PM.PNGS ---
Progress Note: A&P Assessment and Plan (1) Partial small bowel obstruction: Code(s): K56.600 - Partial intestinal obstruction, unspecified as to cause Status: Acute Assessment and Plan: SBFT showed normal transit with no evidence of a SBO. Bowels are moving and tolerating clear liquids. Still having some RLQ pain but improving. Will advance to a full liquid diet and try to transition to oral analgesics No indication for surgical management (2) Chronic abdominal pain: Code(s): R10.9 - Unspecified abdominal pain; G89.29 - Other chronic pain Status: Acute Assessment and Plan: Etiology for chronic abdominal pain not entirely clear. We recommended outpatient evaluation by GI at [place] for further workup of his chronic abdominal pain. Plan I have discussed the patient's case and plan of care with Dr. Garcia. Subjective Subjective Date/Time Seen: 03/14/25 11:52 Patient reports: pain is less, flatus, bowel movement and afebrile Interval history: Patient feeling better today. Still having some RLQ Pain, but improving. No nausea or vomiting. Tolerating clear liquids. Multiple BMs since SBFT yesterday. Exam Const: General: comfortable and no acute distress Orientation/consciousness: patient oriented x3 GI: Inspection: non-distended GI Palp: Yes Soft to palpation, Yes Tenderness to palpation present (GI) (RLQ ), No Guarding due to palpation present (GI) and No Rebound tenderness present Auscultation: normal bowel sounds Objective Data Vital Signs Vital Signs: Vital Signs - 24 hr 03/13/25 14:00 03/13/25 17:19 03/13/25 20:17 Temperature 97.2 F L 97 F L Pulse Rate 69 77 Respiratory Rate 18 16 Blood Pressure 124/79 134/82 Pulse Oximetry 97 97 Oxygen Delivery Room Air 03/13/25 20:50 03/14/25 05:57 03/14/25 08:00 Temperature 96.5 F L Pulse Rate 68 Respiratory Rate 16 Blood Pressure 131/91 H Pulse Oximetry 97 Oxygen Delivery Room Air Room Air Intake/Output Intake/Output: Intake & Output 03/11/25 03/12/25 03/13/25 03/14/25 23:59 23:59 23:59 23:59 Intake Total 2240 1120 Output Total 475 100 Balance 1765 1020 Meds/Results Medications: Active Medications Generic Name Dose Route Start Last Admin Trade Name Ashq PRN Reason Stop Dose Admin Acetaminophen 650 mg 03/13/25 08:42 Acetaminophen 325 Mg Tablet PO Q4H PRN Mild Pain (1-3) or Fever Dextrose 12.5 gm 03/13/25 13:12 Dextrose 50% 25 Gm/50 Ml Syringe IV PUSH PRN PRN Hypoglycemia Protocol Docusate Sodium 100 mg 03/13/25 19:03 Docusate Sodium 100 Mg Capsule PO Q12HR PRN constipation Empagliflozin 10 mg 03/14/25 09:00 03/14/25 08:41 Empagliflozin 10 Mg Tablet PO 10 mg DAILY ENDER Administration Enoxaparin Sodium 40 mg 03/14/25 09:00 03/14/25 08:41 Enoxaparin 40 Mg/0.4 Ml Syringe SUB-Q Not Given DAILY ENDER Escitalopram Oxalate 20 mg 03/14/25 09:00 03/14/25 08:41 Escitalopram Oxalate 10 Mg Tablet PO 20 mg DAILY ENDER Administration Famotidine 20 mg 03/14/25 09:00 03/14/25 08:41 Famotidine 20 Mg Tablet PO 20 mg DAILY ENDER Administration Glucagon 1 mg 03/13/25 13:12 Glucagon For Inj 1 Mg Vial IM PRN PRN Hypoglycemia Protocol Glucose 15 gm 03/13/25 13:12 Glucose Oral Gel 15 Gm Of Glucse In 37.5 Gm Tube PO PRN PRN Hypoglycemia Protocol Lactated Ringer's 1,000 mls @ 100 mls/hr 03/13/25 08:45 03/14/25 09:39 Lr - Lactated Ringers Iv IV CONT 100 mls/hr .Q10H ENDER Administration Dextrose 1,000 mls @ 100 mls/hr 03/13/25 13:12 Dextrose 5% 1,000 Ml IVPB PRN PRN Hypoglycemia Protocol Insulin Aspart 3 - 6 units 03/13/25 18:00 03/14/25 05:51 Insulin Aspart (*Bkc) 100 Units/Ml SUB-Q Not Given Q6HR [facility] Protocol Ondansetron HCl 4 mg 03/13/25 08:42 Ondansetron Inj 4 Mg/2 Ml Vial IV PUSH Q4H PRN Nausea Trazodone HCl 100 mg 03/13/25 21:00 03/13/25 20:50 Trazodone Hcl 50 Mg Tablet PO 100 mg HS ENDER Administration Radiology Results: ITS Impressions Abdomen/Pelvis CT 03/13/25 06:12 IMPRESSION: 1. Fluid-filled distended small bowel loops with air-fluid levels. Differential diagnosis includes ileus, enteritis and partial obstruction. Scrotum Ultrasound 03/13/25 08:01 IMPRESSION: 1. Unremarkable testicular ultrasound. Small Bowel X-Ray 03/13/25 17:30 IMPRESSION: Transit time of 3 hours to the level of the rectum with resolution of partial small bowel obstruction, as detailed above. Labs Labs: Laboratory Results - last 24 hr 03/13/25 03/14/25 03/14/25 17:54 00:12 05:19 WBC 5.3 RBC 4.96 Hgb 13.3 L Hct 40.5 L MCV 81.7 MCH 26.8 MCHC 32.8 RDW 13.9 Plt Count 237 MPV 9.0 Sodium 135 L Potassium 4.0 Chloride 101 Carbon Dioxide 26 Anion Gap 8 BUN 8 L D Creatinine 0.92 Estim Creat Clear Calc 84 Estimated GFR > 60 Glucose 129 H POC Capillary Glucose 201 H 168 H Hemoglobin A1c 7.2 H Calcium 8.8 Magnesium 2.1 03/14/25 05:32 WBC RBC Hgb Hct MCV MCH MCHC RDW Plt Count MPV Sodium Potassium Chloride Carbon Dioxide Anion Gap BUN Creatinine Estim Creat Clear Calc Estimated GFR Glucose POC Capillary Glucose 128 H Hemoglobin A1c Calcium Magnesium
--- NOTE | 2025-03-14 12:40 | P.PNIM_ITS ---
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 He is not actively vomiting thus will hold on NG tube insertion in place him on bowel rest. - Surgery was consulted and SBFT was ordered. - continue pain medication IV and nausea meds prn - Initiate sliding scale insulin, Accu-Cheks, and hypoglycemic protocol. - Surgery is advancing diet Time Spent With Patient Time with patient: 25 - 35 minutes Subjective Date/time seen: 03/14/25 12:40 Interval history: 55-year-old male with history of several abdominal surgeries including open sigmoid colon resection for diverticulitis, laparoscopic appendectomy, laparoscopic cholecystectomy, laparoscopic hiatal hernia repair, open left inguinal hernia repair with mesh, and laparotomy with adhesiolysis for small- bowel obstruction; partial small-bowel obstruction; and type 2 diabetes mellitus who presented to the emergency department via private vehicle with complaints of abdominal pain. He has dealt with chronic abdominal pain for the last 30 years after returning from [place] and his doctors at the [facility] have classified him as having [place] syndrome. He has intermittent episodes of severe abdominal pain with descriptors of gnawing, cramping, and pressure-like pain at different times. There really is no pattern as to when the pain presents but he has always wondered if some of it may be related to stress. The episodes seem to be getting more frequent over the past year and a half, not long after starting Ozempic, and he and his doctor are in the process of weaning him off of the drug. He has had a couple of colonoscopies in the last several years which were reportedly unremarkable. He has been admitted to the hospital 3 times within the last year requiring NG tube for small-bowel obstructions, and he has been seen in our ED 4 times so far this year with similar complaints. More recently he was seen in the ED just a few days ago and is workup was pretty unrevealing at that time. He maybe felt a little bit better at time of discharge and he reports having a normal bowel movement on the same day. However since that time his pain has become increasingly worse and is now radiating down into the right testicle. He has put himself on bowel rest and is only having clear liquids without much benefit. He complains of nausea and dry heaves. He has not been passing gas and feels distended. He denies fever, chest pain, shortness of breath, vomiting, melena, hematochezia, dysuria, and hematuria. In the ED: Vital signs were stable on arrival. Labs were significant for WBC count of 7.7, hemoglobin 13.6, sodium 132, creatinine 1.00, lactic acid 1.6. CT of the abdomen pelvis showed fluid filled distended small-bowel loops with air- fluid levels with a differential diagnosis include ileus, enteritis, and partial obstruction. Scrotum ultrasound was unremarkable. He was given a L of normal saline, analgesics, antiemetics and he is being admitted in this setting for supportive care, close monitoring, and surgery consultation. Pt is seen and examined. Had SBFT- no evidence of SBO. surgery advancing diet, pain is improving. Review of Systems Review of Systems: 12 systems were reviewed and are negativ e except for as per HPI. Exam Narrative: General: Nontoxic-appearing male supine in bed in no acute distress. Weight: 90.8 kg. BMI: 27.9. HEENT: Sclera anicteric. Tacky mucous membranes. Neck: Supple. Respiratory: Lungs are clear to auscultation bilaterally. Cardiovascular: Regular rate and rhythm with S1-S2. Gastrointestinal: Abdomen is soft and nondistended with hypoactive bowel sounds. He is mildly tender to palpation throughout the periumbilical region. No guarding or rebound tenderness. Skin: Warm and dry. No rash or lesions on limited exam. Extremities: No cyanosis, clubbing, or edema. Radial and pedal pulses intact. Neurological: Alert. Cranial nerves 2-12 are grossly intact. No gross focal deficits to casual conversation. Psychiatric: Pleasant and cooperative with normal mood and affect. Judgment and insight intact. Const: General: comfortable Objective Data Vital Signs Vital Signs: Vital Signs - 24 hr 03/13/25 14:00 03/13/25 17:19 03/13/25 20:17 Temperature 97.2 F L 97 F L Pulse Rate 69 77 Respiratory Rate 18 16 Blood Pressure 124/79 134/82 Pulse Oximetry 97 97 Oxygen Delivery Room Air 03/13/25 20:50 03/14/25 05:57 03/14/25 08:00 Temperature 96.5 F L Pulse Rate 68 Respiratory Rate 16 Blood Pressure 131/91 H Pulse Oximetry 97 Oxygen Delivery Room Air Room Air Intake/Output Intake/Output: Intake & Output 03/11/25 03/12/25 03/13/25 03/14/25 23:59 23:59 23:59 23:59 Intake Total 2240 1360 Output Total 475 100 Balance 1765 1260 Meds/Results Medications: Active Medications Generic Name Dose Route Start Last Admin Trade Name Freq PRN Reason Stop Dose Admin Acetaminophen 650 mg 03/13/25 08:42 Acetaminophen 325 Mg Tablet PO Q4H PRN Mild Pain (1-3) or Fever Dextrose 12.5 gm 03/13/25 13:12 Dextrose 50% 25 Gm/50 Ml Syringe IV PUSH PRN PRN Hypoglycemia Protocol Docusate Sodium 100 mg 03/13/25 19:03 Docusate Sodium 100 Mg Capsule PO Q12HR PRN constipation Empagliflozin 10 mg 03/14/25 09:00 03/14/25 08:41 Empagliflozin 10 Mg Tablet PO 10 mg DAILY ENDER Administration Enoxaparin Sodium 40 mg 03/14/25 09:00 03/14/25 08:41 Enoxaparin 40 Mg/0.4 Ml Syringe SUB-Q Not Given DAILY ENDER Escitalopram Oxalate 20 mg 03/14/25 09:00 03/14/25 08:41 Escitalopram Oxalate 10 Mg Tablet PO 20 mg DAILY ENDER Administration Famotidine 20 mg 03/14/25 09:00 03/14/25 08:41 Famotidine 20 Mg Tablet PO 20 mg DAILY ENDER Administration Glucagon 1 mg 03/13/25 13:12 Glucagon For Inj 1 Mg Vial IM PRN PRN Hypoglycemia Protocol Glucose 15 gm 03/13/25 13:12 Glucose Oral Gel 15 Gm Of Glucse In 37.5 Gm Tube PO PRN PRN Hypoglycemia Protocol Lactated Ringer's 1,000 mls @ 100 mls/hr 03/13/25 08:45 03/14/25 09:39 Lr - Lactated Ringers Iv IV CONT 100 mls/hr .Q10H ENDER Administration Dextrose 1,000 mls @ 100 mls/hr 03/13/25 13:12 Dextrose 5% 1,000 Ml IVPB PRN PRN Hypoglycemia Protocol Insulin Aspart 3 - 6 units 03/13/25 18:00 03/14/25 12:29 Insulin Aspart (*Bkc) 100 Units/Ml SUB-Q Not Given Q6HR ENDER Protocol Ondansetron HCl 4 mg 03/13/25 08:42 Ondansetron Inj 4 Mg/2 Ml Vial IV PUSH Q4H PRN Nausea Trazodone HCl 100 mg 03/13/25 21:00 03/13/25 20:50 Trazodone Hcl 50 Mg Tablet PO 100 mg HS ENDER Administration Radiology Results: ITS Impressions Abdomen/Pelvis CT 03/13/25 06:12 IMPRESSION: 1. Fluid-filled distended small bowel loops with air-fluid levels. Differential diagnosis includes ileus, enteritis and partial obstruction. Scrotum Ultrasound 03/13/25 08:01 IMPRESSION: 1. Unremarkable testicular ultrasound. Small Bowel X-Ray 03/13/25 17:30 IMPRESSION: Transit time of 3 hours to the level of the rectum with resolution of partial small bowel obstruction, as detailed above. Labs Labs: Laboratory Results - last 24 hr 03/13/25 03/14/25 03/14/25 17:54 00:12 05:19 WBC 5.3 RBC 4.96 Hgb 13.3 L Hct 40.5 L MCV 81.7 MCH 26.8 MCHC 32.8 RDW 13.9 Plt Count 237 MPV 9.0 Sodium 135 L Potassium 4.0 Chloride 101 Carbon Dioxide 26 Anion Gap 8 BUN 8 L D Creatinine 0.92 Estim Creat Clear Calc 84 Estimated GFR > 60 Glucose 129 H POC Capillary Glucose 201 H 168 H Hemoglobin A1c 7.2 H Calcium 8.8 Magnesium 2.1 03/14/25 03/14/25 05:32 12:23 WBC RBC Hgb Hct MCV MCH MCHC RDW Plt Count MPV Sodium Potassium Chloride Carbon Dioxide Anion Gap BUN Creatinine Estim Creat Clear Calc Estimated GFR Glucose POC Capillary Glucose 128 H 175 H Hemoglobin A1c Calcium Magnesium Quality VTE Prophylaxis VTE prophylaxis: pharmacologic ordered
[2025-03-14 14:00] VITALS: BP 102/68; PULSE 71; RESP 17; TEMP 36.7; O2SAT 97
[2025-03-14] MEDS: ACETAMINOPHEN 325 MG TABLET 650 MG PO (18:15)
--- NOTE | 2025-03-14 18:18 | PC.NURSE ---
C/O sharp abdominal pain without relief. Requested I notify the provider to get prn pain medication. Encouraged ambulation in hallway. Tylenol 650mg po given for pain.
[2025-03-14 20:16] VITALS: BP 119/76; PULSE 75; RESP 17; TEMP 36.6; O2SAT 97
[2025-03-14 23:06] VITALS: PULSE 87; RESP 20; O2SAT 96
[2025-03-15 05:18] VITALS: BP 117/88; PULSE 75; RESP 16; TEMP 36.8; O2SAT 98
[2025-03-15] MEDS: LACTATED RINGERS 1,000 ML 100 ML IV CONT (05:49)
--- NOTE | 2025-03-15 09:02 | P.PNIM_ITS ---
Progress Note: A&P Assessment and Plan (1) Partial small bowel obstruction: Code(s): K56.600 - Partial intestinal obstruction, unspecified as to cause Status: Acute Assessment and Plan: Abdomen/pelvis CT: Fluid-filled distended small bowel loops with air-fluid levels. Differential diagnosis includes ileus, enteritis and partial obstruction. SBFT showed normal transit with no evidence of a SBO Diet: advanced to diabetic diet Monitor I&Os, vital signs, neuro status and patient is a fall risk Monitor serum electrolytes and CBC P.r.n. Anti emetics, avoid reglan General surgery consulted No indication for surgical management Patient continues to endorse pain to the RLQ. Remains on IV morphine and PO norco as needed for pain management. Passing flatus and had a liquid bowel movement today. (2) Chronic abdominal pain: Code(s): R10.9 - Unspecified abdominal pain; G89.29 - Other chronic pain Status: Acute Assessment and Plan: Etiology for chronic abdominal pain not entirely clear. Endorsing pain to the RLQ that radiates to the right groin Abdomen/pelvis CT: Fluid-filled distended small bowel loops with air-fluid levels. Differential diagnosis includes ileus, enteritis and partial obstruction. Scrotum US unremarkable Surgery recommended outpatient evaluation by GI at [place] for further workup of his chronic abdominal pain. 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 supervisor use Qualified Code(s): E11.9 - Type 2 diabetes mellitus without complications Code(s): E11.9 - Type 2 diabetes mellitus without complications Status: Acute Assessment and Plan: - hypoglycemia protocol - POC blood glucose ACHS - home medication - ozempic (being weaned) and jardiance 10 mg daily - correct regimen ordered - continue Jardiance and SSITIDWM - A1C 7.2 Time Spent With Patient Time with patient: 25 - 35 minutes Subjective Date/time seen: 03/15/25 09:02 Interval history: 55-year-old male with history of several abdominal surgeries including open sigmoid colon resection for diverticulitis, laparoscopic appendectomy, laparoscopic cholecystectomy, laparoscopic hiatal hernia repair, open left inguinal hernia repair with mesh, and laparotomy with adhesiolysis for small- bowel obstruction; partial small-bowel obstruction; and type 2 diabetes mellitus who presented to the hospital with complaints of abdominal pain. Patient is pleasant lying in bed. He states that since the Dilaudid had been discontinued his pain has continued to worsen. He describes the pain as a gnawing sensation to his RLQ that becomes intermittently sharp and stabbing with radiation to the right groin. He denies testicular pain. He notes that he is having bowel movements but they are liquid and appear yellow in color. He denies any nausea/vomiting. He was wanting to leave AMA this morning as he stated if i am going to be miserable i can be miserable at home. However patient was in agreement to staying given the resuming of pain medication with IV morphine and PO norco. Surgery evaluated patient as well and advanced his diet to diabetic diet today. Patient has no other complaints denying chest pain, palpitations and shortness of breath. Review of Systems Review of Systems: All systems reviewed & are unremarkable except as noted in HPI and below Exam Narrative: AF HR 79 RR 18 Spo2 97 BP 103/64 General: male in no acute respiratory distress who is nontoxic appearing, lying semi recumbent in bed. HEENT: Normocephalic. Atraumatic. Extraocular movement intact. Sclera clear and anicteric. No facial asymmetry. Chest: Lungs are clear to auscultation bilaterally. CV: Heart was regular rate and rhythm. Abd: Abdomen was soft. Tenderness to palpation to RLQ and right groin without guarding. Nondistended. Positive bowel sounds. Ext: No clubbing, cyanosis, or edema. Neuro: Patient is alert. Speech is clear. Objective Data Vital Signs Vital Signs: Vital Signs - 24 hr 03/14/25 14:00 03/14/25 20:00 03/14/25 20:16 Temperature 98.0 F 97.9 F Pulse Rate 71 75 Respiratory Rate 17 17 Blood Pressure 102/68 119/76 Pulse Oximetry 97 97 Oxygen Delivery Room Air Fraction of Inspired Oxygen 03/14/25 23:06 03/15/25 05:18 Temperature 98.3 F Pulse Rate 87 75 Respiratory Rate 20 16 Blood Pressure 117/88 Pulse Oximetry 96 98 Oxygen Delivery Room Air Fraction of Inspired Oxygen 21 Intake/Output Intake/Output: Intake & Output 03/12/25 03/13/25 03/14/25 03/15/25 23:59 23:59 23:59 23:59 Intake Total 2240 2582 1196.7 Output Total 475 100 Balance 1765 2482 1196.7 Meds/Results Medications: Active Medications Generic Name Dose Route Start Last Admin Trade Name Freq PRN Reason Stop Dose Admin Acetaminophen 650 mg 03/13/25 08:42 03/14/25 18:15 Acetaminophen 325 Mg Tablet PO 650 mg Q4H PRN Administration Mild Pain (1-3) or Fever Dextrose 12.5 gm 03/13/25 13:12 Dextrose 50% 25 Gm/50 Ml Syringe IV PUSH PRN PRN Hypoglycemia Protocol Docusate Sodium 100 mg 03/13/25 19:03 Docusate Sodium 100 Mg Capsule PO Q12HR PRN constipation Empagliflozin 10 mg 03/14/25 09:00 03/14/25 08:41 Empagliflozin 10 Mg Tablet PO 10 mg DAILY ENDER Administration Enoxaparin Sodium 40 mg 03/14/25 09:00 03/14/25 08:41 Enoxaparin 40 Mg/0.4 Ml Syringe SUB-Q Not Given DAILY ENDER Escitalopram Oxalate 20 mg 03/14/25 09:00 03/14/25 08:41 Escitalopram Oxalate 10 Mg Tablet PO 20 mg DAILY ENDER Administration Famotidine 20 mg 03/14/25 09:00 03/14/25 08:41 Famotidine 20 Mg Tablet PO 20 mg DAILY ENDER Administration Glucagon 1 mg 03/13/25 13:12 Glucagon For Inj 1 Mg Vial IM PRN PRN Hypoglycemia Protocol Glucose 15 gm 03/13/25 13:12 Glucose Oral Gel 15 Gm Of Glucse In 37.5 Gm Tube PO PRN PRN Hypoglycemia Protocol Lactated Ringer's 1,000 mls @ 100 mls/hr 03/13/25 08:45 03/15/25 05:49 Lr - Lactated Ringers Iv IV CONT 100 mls/hr .Q10H ENDER Administration Dextrose 1,000 mls @ 100 mls/hr 03/13/25 13:12 Dextrose 5% 1,000 Ml IVPB PRN PRN Hypoglycemia Protocol Insulin Aspart 3 - 6 units 03/14/25 17:05 03/14/25 20:18 Insulin Aspart (*Bkc) 100 Units/Ml SUB-Q Not Given 0800,1200,1700,2100 [facility] Protocol Ondansetron HCl 4 mg 03/13/25 08:42 Ondansetron Inj 4 Mg/2 Ml Vial IV PUSH Q4H PRN Nausea Trazodone HCl 100 mg 03/13/25 21:00 03/14/25 20:23 Trazodone Hcl 50 Mg Tablet PO 100 mg HS ENDER Administration Radiology Results: ITS Impressions Abdomen/Pelvis CT 03/13/25 06:12 IMPRESSION: 1. Fluid-filled distended small bowel loops with air-fluid levels. Differential diagnosis includes ileus, enteritis and partial obstruction. Scrotum Ultrasound 03/13/25 08:01 IMPRESSION: 1. Unremarkable testicular ultrasound. Small Bowel X-Ray 03/13/25 17:30 IMPRESSION: Transit time of 3 hours to the level of the rectum with resolution of partial small bowel obstruction, as detailed above. Labs Labs: Laboratory Results - last 24 hr 03/14/25 03/14/25 03/14/25 12:23 16:24 20:02 POC Capillary Glucose 175 H 128 H 180 H 03/15/25 07:10 POC Capillary Glucose 264 H Quality VTE Prophylaxis VTE prophylaxis: pharmacologic ordered
[2025-03-15] MEDS: FAMOTIDINE 20 MG TABLET PO (09:36)
[2025-03-15] MEDS: ESCITALOPRAM OXALATE 10 MG TABLET 20 MG PO (09:36)
[2025-03-15] MEDS: EMPAGLIFLOZIN 10 MG TABLET PO (09:36)
[2025-03-15] MEDS: INSULIN ASPART (*BKC) 100 UNITS/ML SUB-Q (09:37)
--- NOTE | 2025-03-15 10:06 | P.PNGS_ITS ---
Progress Note: A&P Assessment and Plan (1) Partial small bowel obstruction: Code(s): K56.600 - Partial intestinal obstruction, unspecified as to cause Status: Acute Assessment and Plan: * SBFT showed normal transit with no evidence of a SBO. Bowels are moving and tolerating full liquids. Patient states that pain is significantly increased today. He noticed this to start after Dilaudid was discontinued and wore off. Threatening to leave AMA. * Morphine ordered, as well as [place]. Patient informed that he would have to be on oral analgesics before discharge. He is compliant with this plan. * Will advance to a diabetic diet and try to transition to oral analgesics. * No indication for surgical management. (2) Chronic abdominal pain: Code(s): R10.9 - Unspecified abdominal pain; G89.29 - Other chronic pain Status: Acute Assessment and Plan: * Etiology for chronic abdominal pain not entirely clear. We recommended outpatient evaluation by GI at [place] for further workup of his chronic abdominal pain. Plan I have discussed the patient's case and plan of care with Dr. Garcia. Subjective Subjective Date/Time Seen: 03/15/25 10:06 Patient reports: still having pain and bowel movement Interval history: Patient notes increased pain today. Threatening to leave AMA, as he feels he is not having anything done to help him in the hospital. He states ?if I am going to be miserable, I might as well be miserable at home. Dilaudid was discontinued yesterday, and he feels as though he noticed the pain increase significantly when this wore off. He describes the pain as a gnawing sensation in his right lower quadrant radiating down to his right groin and testicle. No nausea and vomiting. Patient also notes that his stools have become last formed and are now more yellow in color. Exam GI: Inspection: non-distended GI Palp: Yes Soft to palpation, Yes Tenderness to palpation present (GI) and Yes Guarding due to palpation present (GI) Other: Tenderness and guarding to right lower quadrant. Tenderness to palpation of right suprapubic area with radiation down to right testicle. No tenderness to palpation of the right testicle. No skin changes noted. Objective Data Vital Signs Vital Signs: Vital Signs - 24 hr 03/14/25 14:00 03/14/25 20:00 03/14/25 20:16 Temperature 98.0 F 97.9 F Pulse Rate 71 75 Respiratory Rate 17 17 Blood Pressure 102/68 119/76 Pulse Oximetry 97 97 Oxygen Delivery Room Air Fraction of Inspired Oxygen 03/14/25 23:06 03/15/25 05:18 Temperature 98.3 F Pulse Rate 87 75 Respiratory Rate 20 16 Blood Pressure 117/88 Pulse Oximetry 96 98 Oxygen Delivery Room Air Fraction of Inspired Oxygen 21 Intake/Output Intake/Output: Intake & Output 03/12/25 03/13/25 03/14/25 03/15/25 23:59 23:59 23:59 23:59 Intake Total 2240 2582 1196.7 Output Total 475 100 Balance 1765 2482 1196.7 Meds/Results Medications: Active Medications Generic Name Dose Route Start Last Admin Trade Name Freq PRN Reason Stop Dose Admin Acetaminophen 650 mg 03/13/25 08:42 03/14/25 18:15 Acetaminophen 325 Mg Tablet PO 650 mg Q4H PRN Administration Mild Pain (1-3) or Fever Hydrocodone Bitart/Acetaminophen 1 tab 03/15/25 10:02 Hydrocodone/Acetaminophen (*Crx) 5-325 Mg Tablet PO Q4H PRN Pain Rated 4-6 Dextrose 12.5 gm 03/13/25 13:12 Dextrose 50% 25 Gm/50 Ml Syringe IV PUSH PRN PRN Hypoglycemia Protocol Docusate Sodium 100 mg 03/13/25 19:03 Docusate Sodium 100 Mg Capsule PO Q12HR PRN constipation Empagliflozin 10 mg 03/14/25 09:00 03/15/25 09:36 Empagliflozin 10 Mg Tablet PO 10 mg DAILY ENDER Administration Enoxaparin Sodium 40 mg 03/14/25 09:00 03/15/25 09:46 Enoxaparin 40 Mg/0.4 Ml Syringe SUB-Q Not Given DAILY ENDER Escitalopram Oxalate 20 mg 03/14/25 09:00 03/15/25 09:36 Escitalopram Oxalate 10 Mg Tablet PO 20 mg DAILY ENDER Administration Famotidine 20 mg 03/14/25 09:00 03/15/25 09:36 Famotidine 20 Mg Tablet PO 20 mg DAILY ENDER Administration Glucagon 1 mg 03/13/25 13:12 Glucagon For Inj 1 Mg Vial IM PRN PRN Hypoglycemia Protocol Glucose 15 gm 03/13/25 13:12 Glucose Oral Gel 15 Gm Of Glucse In 37.5 Gm Tube PO PRN PRN Hypoglycemia Protocol Lactated Ringer's 1,000 mls @ 100 mls/hr 03/13/25 08:45 03/15/25 05:49 Lr - Lactated Ringers Iv IV CONT 100 mls/hr .Q10H ENDER Administration Dextrose 1,000 mls @ 100 mls/hr 03/13/25 13:12 Dextrose 5% 1,000 Ml IVPB PRN PRN Hypoglycemia Protocol Insulin Aspart 3 - 6 units 03/14/25 17:05 03/15/25 09:37 Insulin Aspart (*Bkc) 100 Units/Ml SUB-Q 4 units 0800,1200,1700,2100 ENDER Administration Protocol Morphine Sulfate 2 mg 03/15/25 10:02 Morphine Sulfate (*Crx) 2 Mg/Ml Inj IV PUSH Q4H PRN Pain Rated 7-10 Ondansetron HCl 4 mg 03/13/25 08:42 Ondansetron Inj 4 Mg/2 Ml Vial IV PUSH Q4H PRN Nausea Trazodone HCl 100 mg 03/13/25 21:00 03/14/25 20:23 Trazodone Hcl 50 Mg Tablet PO 100 mg HS ENDER Administration Radiology Results: ITS Impressions Abdomen/Pelvis CT 03/13/25 06:12 IMPRESSION: 1. Fluid-filled distended small bowel loops with air-fluid levels. Differential diagnosis includes ileus, enteritis and partial obstruction. Scrotum Ultrasound 03/13/25 08:01 IMPRESSION: 1. Unremarkable testicular ultrasound. Small Bowel X-Ray 03/13/25 17:30 IMPRESSION: Transit time of 3 hours to the level of the rectum with resolution of partial small bowel obstruction, as detailed above. Labs Labs: Laboratory Results - last 24 hr 03/14/25 03/14/25 03/14/25 12:23 16:24 20:02 POC Capillary Glucose 175 H 128 H 180 H 03/15/25 07:10 POC Capillary Glucose 264 H
[2025-03-15] MEDS: MORPHINE SULFATE (*CRX) 2 MG/ML INJ IV PUSH (10:47)
[2025-03-15] MEDS: ONDANSETRON INJ 4 MG/2 ML VIAL IV PUSH (10:54)
[2025-03-15 13:18] VITALS: BP 103/64; PULSE 79; RESP 18; TEMP 36.2; O2SAT 97
== END 2025-03-15 13:10 | disposition left against medical advice (07) ==
LOC: ANHED 07:22 → ANH3MEDSUR 09:47
PROVIDERS: Physician Assistant; Student in an Organized Health Care Education/Training Program; Admitting Provider Family Medicine; Emergency Provider Student in an Organized Health Care Education/Training Program; PCP Family Medicine; Visit Provider Family Medicine
DX: K56.600 Partial intestinal obstruction, unspecified as to cause (principal); E11.9 Type 2 diabetes mellitus without complications; G89.29 Other chronic pain; R10.9 Unspecified abdominal pain; R93.5 Abnormal findings on diagnostic imaging of other abdominal regions, including retroperitoneum; N50.811 Right testicular pain; F43.10 Post-traumatic stress disorder, unspecified; F32.A Depression, unspecified; Z79.85 Long-term (current) use of injectable non-insulin antidiabetic drugs; Z79.899 Other long term (current) drug therapy; Z90.49 Acquired absence of other specified parts of digestive tract; Z98.890 Other specified postprocedural states
CPT/HCPCS: 36415; 74177; 74250; 76870; 80048; 80053; 81003; 82948; 83036; 83605; 83690; 83735; 85025; 85027; 93976; 96361; 96374; 96375; 96376; 99285; A9270; G0378; J1171; J1650; J1815; J2270; J2405; J7030; J7120; Q9967

== ENCOUNTER 2025-04-10 00:02 | Emergency (ER) | payer OTHER, SELFPAY ==
--- OUTSIDE RECORDS SUMMARY | 2025-04-10 00:04 | XMS_ITS ---
Author Name Interface, [id number] lity Address [address] [place] [address] [facility]intosh Address [address] [place] [address] Allergies and Adverse Reactions Medication/Group Name Reaction [...]
--- OUTSIDE RECORDS SUMMARY | 2025-04-10 00:04 | XMS_ITS | CCD ---
Author Name Interface, [id number] lity Address [address] [place] [address] [facility] Address [address] [place] [address] Care Team Providers Care Business Continuity Director Name Role Phone Darien GUNN, Mata James [...]
--- OUTSIDE RECORDS SUMMARY | 2025-04-10 00:04 | XMS_ITS | Clinical Summary ---
Author Organization [facility] Address [address] [place] [address] Care Team Providers Care Healthcare Translator Name Role Phone Unavailable Primary Care Provider Unavailabl e Source Comments [facility],non-owned Affiliates and Associated Physician Practices is amultiple site organization consisting of ambulatory clinics and hospital sitesin [place] and [place]. This disclosure is being madepursuant to the Care Everywhere program and may not contain all information available regarding this patient. Last updated 18.[facility] Allergies Active Allergy Reactions Criticality Noted Date [...] by mouth at bedtime Active HYDROcodone-acet aminophen ([place]) 5-325 MG tabletIndication s:Right groin pain Take 1 (one) tablet by mouth every 4 hours as needed 12 tablet 05/14/202 5 Active Active Problems Problem Noted Date Diagnosed Date Pain in right testicle 01/02/2025 Resolved Problems Problem Noted Date Diagnosed Date Resolved Date SBO (small bowel obstruction) 01/10/2015 01/02/2025 Immunizations Immunization Administration Dates Next Due PNEUMOCOCCAL [...] on patient's age to complete this topic Insurance [facility] [place] [address] Advance Directives * Full Code (Latest Code Status on File) Date Activated Date Inactivated Comments 01/02/2025 4:40 AM 01/04/2025 5:47 PM * Full Code Date Activated Date Inactivated Comments 01/10/2015 10:22 PM 01/12/2015 5:26 PM
--- OUTSIDE RECORDS SUMMARY | 2025-04-10 00:05 | XMS_ITS | Encounter Summary ---
Author Organization [facility] Address [address] [place] [address] Care Team Providers Care Strategic Account Manager Name Role Phone Monique Garcia MD Unavailable [phone] Monique Garcia MD Unavailable [phone] Nathan Martinez MD Primary Care Provider [phone] Encounter Details Date Type Department Care Team (Late st Contact Info) Description 02/21/2025 Results Follow-Up [facility] Primary Care [address] [place] [address] Nathan Martinez MD [address] [place] [address] Cholesterol, LDL, direct Social History Tobacco Use Types Packs/Day Years Used Date Smoking Tobacco: Never Smokeless Tobacco: Current Chew Comments:advised to quit 1 c an of chew per week since 1994 Alcohol Use Standard Drinks/Week Comments Not Currently 0 (1 standard drink = 0.6 oz pur e alcohol) [facility] Utilities Answer Date Recorded In the past 12 months has [employer], gas, oil, or water company threatened to shut off services in your home? No 10/13/2024 Social Connection and Isolation Panel Answer Date Recorded In a typical week, how many times do you talk on the phone with family, friends, or neighbors? More than three times a week 10/13/2024 How often do you get togethe r with friends or relatives? More than three times a week 10/13/2024 How often do you attend [facility] or sabianism services? Never 10/13/2024 Do you belong to [...] 02/21/2025 8:13 AM CDT Patient advised via [email or web address]. documented in this encounter Plan of Treatment Not on file documented as of this encounter Visit Diagnoses Not on filedocumented in this encounter Care Teams Strategic Account Manager Relationship Specialty Start Date End Date Nathan Martinez MD PCP - General Family Practice 09/10/20 Monique Garcia MD Referring Physician Gastroenterology 06/11/20 Monique Garcia MD Referring Physician Gastroenterology 06/11/20 documented as of this encounter
--- OUTSIDE RECORDS SUMMARY | 2025-04-10 00:05 | XMS_ITS | CCD ---
Author Name Interface, [id number] lity Address [address] [place] [address] [facility] ecialists, LAN Address [address] [place] [address] Care Team Providers Care Architectural Sales Consultant Name Role Phone Darien GUNN, Mata James [...]
--- OUTSIDE RECORDS SUMMARY | 2025-04-10 00:05 | XMS_ITS | Clinical Summary ---
Author Organization [facility] Address [address] [place] [address] Care Team Providers Care Photographer Finish Name Role Phone Monique Garcia MD Unavailable [phone] Monique Garcia MD Unavailable [phone] Nathan Martinez MD Primary Care Provider [phone] Allergies Active Allergy Reactions Criticality Noted Date [...] mouth daily 90 capsule 1 05/02/[address] (PROTONIX) 40 mg EC tabletIndicatio ns:Treatment of Non-Bleeding Gastric Disorder Take 1 tablet (40 mg total) by mouth daily 30 tablet 11 10/16/2024 10/16/19 26 Active traZODone (DESYREL) 100 mg tablet Take 1 tablet by mouth every night 90 tablet 1 11/14/2024 Active escitalopram (LEXAPRO) 20 mg tablet Take 1 tablet (20 mg total) by mouth daily 90 tablet 1 11/14/2024 Active modafiniL (PROVIGIL) 100 mg tablet Take 1 tablet (100 mg total) by mouth daily 90 tablet 11/14/[address] (VOLTAREN) 75 mg EC tablet Take 1 tablet (75 mg total) by mouth 2 (two) times a day 60 tablet 11 01/20/2025 01/21/20 26 Active HYDROcodone-jarvis taminophen (NORCO) 10-325 mg per tabletIndicatio ns:Pain Take 1 tablet by mouth every 6 (six) hours as needed for pain 120 tablet 02/20/2025 Active semaglutide (OZEMPIC) 0.25 mg or 0.5 mg (2 mg/3 mL) pen injector injection Inject 0.5 mg under the skin every 7 days 3 mL 11 02/20/2025 Active empagliflozin (JARDIANCE) 10 mg tablet Take 1 tablet (10 mg total) by mouth daily 90 tablet 3 02/20/2025 Active Active Problems Problem Noted Date Diagnosed [...] today with results pending. Slight relief with Addison 5 mg. We will increase dosage to [...] Assessment & Plan (10/15/2023 11:29 AM SENIOR SOLUTIONS CONSULTANT): A1c today . Continue glipizide/Trulicity at same [...] Assessment & Plan (09/12/2022 9:35 AM SENIOR SOLUTIONS CONSULTANT): Some tinnitus for 2 months. Possible hearing loss. Ear canals normal today drums normal ENT refer Lipidemia 09/11/2022 Assessment & Plan (02/20/2025 11:05 AM CDT): Continue atorvastatin at same dosage. Well controlled. Needs repeat lipids Assessment & Plan (11/11/2024 2:33 PM CDT): Continue atorvastatin but needs repeat lipids Assessment & Plan (08/05/2024 2:15 PM SENIOR SOLUTIONS CONSULTANT): Continue atorvastatin same dosage. Needs repeat lipid Assessment & Plan (05/01/2024 12:22 PM CDT): Needs repeat lipids. Continue atorvastatin at same dose. Assessment & Plan (01/07/2024 4:08 PM CDT): Continue atorvastatin same dosage but needs repeat lipids. Assessment & Plan (10/15/2023 11:35 AM SENIOR SOLUTIONS CONSULTANT): Continue atorvastatin at same dosage. Well controlled. Assessment & Plan (06/23/2023 2:03 PM CDT): Continue Lipitor same dosage but needs repeat lipids. Assessment & Plan (01/15/2023 1:58 PM CDT): Continue atorvastatin same dosage but needs repeat lipids Assessment & Plan (09/11/2022 3:45 PM SENIOR SOLUTIONS CONSULTANT): Continue atorvastatin same dosage Acute left ankle [...] Assessment & Plan (10/15/2023 12:07 PM SENIOR SOLUTIONS CONSULTANT): Diabetic foot exam: Left monofilament exam: normal [...] Assessment & Plan (09/02/2021 8:59 AM SENIOR SOLUTIONS CONSULTANT): Pain most recently is in the right [...] Assessment & Plan (09/02/2021 9:00 AM SENIOR SOLUTIONS CONSULTANT): Refer to Dermatology Chronic abdominal pain 08/30/2021 Assessment & Plan (05/02/2024 3:02 PM CDT): History of multiple adhesions and several times he has had to had bowel obstruction treated. Constant pain. Worse about 30 minutes after eating. Referral to GI. Left lower quadrant Assessment & Plan (09/16/2021 9:44 AM SENIOR SOLUTIONS CONSULTANT): Try peppermint oil pill daily. Discontinue Levbid. Refer to GI. Needs colonoscopy. Assessment & Plan (09/02/2021 8:59 AM SENIOR SOLUTIONS CONSULTANT): Previous pain is similar to this pain [...] controlled. Assessment & Plan (08/05/2024 2:14 PM SENIOR SOLUTIONS CONSULTANT): Continue Provigil at same dosage. Well controlled. Return 3 months Assessment & Plan (05/01/2024 12:20 PM CDT): Continue Provigil at same dosage. Well controlled. Return 3 months Assessment & Plan (01/07/2024 4:03 PM CDT): Continue Provigil at same dosage. Well controlled. Assessment & Plan (10/16/2023 1:08 PM SENIOR SOLUTIONS CONSULTANT): Takes Provigil off-label. Adequate control with medicine. [...] Assessment & Plan (09/13/2021 9:27 AM SENIOR SOLUTIONS CONSULTANT): Continue modafinil at same dosage. Well controlled. No signs of toxicity and patient understands this is off-label treatment Assessment & Plan (08/30/2021 7:27 AM SENIOR SOLUTIONS CONSULTANT): Allow modafinil as no evidence of toxicity and evidence of benefit Assessment & Plan (06/11/2021 1:30 PM CDT): Continue Provigil at same dosage. Well controlled. Assessment & Plan (02/08/2021 10:32 AM CDT): Continue modafinil at same dosage. Well controlled. Assessment & Plan (11/09/2020 1:42 PM CDT): Allow modafinil but understands off-label Assessment & Plan (10/08/2020 10:45 AM SENIOR SOLUTIONS CONSULTANT): Previously diagnosed with this by psychiatrist at [...] Assessment & Plan (10/08/2020 10:46 AM SENIOR SOLUTIONS CONSULTANT): Much improved Assessment & Plan (09/10/2020 10:03 AM SENIOR SOLUTIONS CONSULTANT): Mainly with exertion and will refer to [...] Assessment & Plan (10/08/2020 10:45 AM SENIOR SOLUTIONS CONSULTANT): Much improved Assessment & Plan (09/10/2020 9:58 AM SENIOR SOLUTIONS CONSULTANT): Persisting cough and will refer to Pulmonary for Rash 09/10/2020 Assessment & Plan (10/08/2020 10:45 AM SENIOR SOLUTIONS CONSULTANT): Much improved Assessment & Plan (09/10/2020 10:02 AM SENIOR SOLUTIONS CONSULTANT): There is a dry Pash of eczematoid type rash on his back that is different than psoriasis he has other areas. We will give him some topical hydrocortisone cream but not to use longer than 2 weeks as risk of atrophy and tolerance. Nasal polyp 09/10/2020 Assessment & Plan (09/10/2020 10:07 AM SENIOR SOLUTIONS CONSULTANT): ENT referral Anemia 09/09/2020 Assessment & Plan (09/09/2020 1:03 PM SENIOR SOLUTIONS CONSULTANT): Needs iron studies and methylmalonic acid level. [...] months. Assessment & Plan (08/08/2024 11:33 AM SENIOR SOLUTIONS CONSULTANT): A1c today. Is improved at 7.0. Continue [...] Assessment & Plan (09/11/2022 3:47 PM SENIOR SOLUTIONS CONSULTANT): A1C TODAY.BMI Follow-up includes: nutrition counseling and [...] Assessment & Plan (09/16/2021 9:43 AM SENIOR SOLUTIONS CONSULTANT): A1c today. Diabetes needing better control. No hypoglycemic symptoms. Metformin, Jardiance, and glipizide daily. No significant improvement and will add Trulicity 0.75 mg weekly Assessment & Plan (08/30/2021 7:25 AM SENIOR SOLUTIONS CONSULTANT): A1c today. Assessment & Plan (06/17/2021 10:38 [...] Assessment & Plan (10/08/2020 10:42 AM SENIOR SOLUTIONS CONSULTANT): Check fasting blood sugar today. Result is 415 no he has had better sugars at home. No hypoglycemic symptoms will increase Jardiance to 25 mg daily as he has had no side effects. Assessment & Plan (09/10/2020 9:58 AM SENIOR SOLUTIONS CONSULTANT): Needs better control. Medication options discussed. Risk [...] Assessment & Plan (10/15/2023 11:36 AM SENIOR SOLUTIONS CONSULTANT): Continue trazodone at same dosage. Well controlled. Assessment & Plan (06/23/2023 2:04 PM CDT): Continue trazodone same dosage. Well controlled. Assessment & Plan (01/15/2023 1:59 PM CDT): Continue trazodone at same dosage. Well controlled. Assessment & Plan (09/11/2022 3:44 PM SENIOR SOLUTIONS CONSULTANT): Continue trazodone Assessment & Plan (05/02/2022 11:04 AM CDT): Continue trazodone at same dosage. Well controlled. Assessment & Plan (12/13/2021 9:57 AM CDT): Continue trazodone at same dosage. Well controlled. Assessment & Plan (08/30/2021 7:26 AM SENIOR SOLUTIONS CONSULTANT): Continue trazodone at same dosage. Well controlled. Assessment & Plan (06/11/2021 1:30 PM CDT): Continue trazodone at same dosage. Well controlled. Assessment & Plan (02/08/2021 10:36 AM CDT): Continue trazodone at same dosage. Well controlled. Assessment & Plan (10/08/2020 10:31 AM SENIOR SOLUTIONS CONSULTANT): Improved. Continue trazodone 100 mg Assessment & Plan (09/10/2020 10:00 AM SENIOR SOLUTIONS CONSULTANT): Increase trazodone to 100 mg needs better [...] controlled. Assessment & Plan (08/05/2024 2:13 PM SENIOR SOLUTIONS CONSULTANT): Continue Lexapro at same dosage. Well controlled. Assessment & Plan (05/01/2024 12:21 PM CDT): Continue Lexapro at same dosage. Well controlled. Assessment & Plan (01/07/2024 4:04 PM CDT): Continue Lexapro at same dosage. Well controlled. Assessment & Plan (10/15/2023 11:35 AM SENIOR SOLUTIONS CONSULTANT): Continue Lexapro at same dosage. Well controlled. Assessment & Plan (06/23/2023 2:07 PM CDT): Continue Lexapro at same dosage. Well controlled. Assessment & Plan (01/15/2023 2:00 PM CDT): Continue Lexapro at same dosage. Well controlled. Assessment & Plan (09/11/2022 3:44 PM SENIOR SOLUTIONS CONSULTANT): Continue Lexapro at same dosage. Well controlled. Assessment & Plan (05/02/2022 11:00 AM CDT): Continue Lexapro at same dosage. Well controlled. Assessment & Plan (12/13/2021 9:57 AM CDT): Continue Lexapro at same dosage. Well controlled. Assessment & Plan (08/30/2021 7:26 AM SENIOR SOLUTIONS CONSULTANT): Continue Lexapro at same dosage. Well controlled. Assessment & Plan (06/11/2021 1:30 PM CDT): Continue Lexapro at same dosage. Well controlled. Assessment & Plan (02/08/2021 10:33 AM CDT): Continue Lexapro at same dosage. Well controlled. Assessment & Plan (11/09/2020 1:42 PM CDT): Continue Lexapro at same dosage. Well controlled. Assessment & Plan (09/09/2020 1:01 PM SENIOR SOLUTIONS CONSULTANT): Continue medication at same dosage. Well controlled. [...] Encounters Date Type Department Care Team Description 03/13/2025 Orders Only [facility] Health Information Management [address] [place], [place] [id number] Scanning, Provider 02/21/2025 Results Follow-Up [facility] Primary Care [address] [place] [address] Nathan Martinez MD Cholesterol, LDL, direct 02/20/2025 10:45 AM CDT Office Visit [facility] [address] [place] [address] Nathan Martinez MD Lumbar radiculopathy (Primary Dx); Mixed hyperlipidemia; Screening PSA (prostate specific antigen); Alcohol abuse; Type 2 diabetes mellitus with hyperglycemia, without long-term current use of insulin (HCC) 01/25/2025 Results Follow-Up [facility] [address] [place] [address] Nathan Martinez MD Albumin Creatinine Ratio, Urine 01/20/2025 11:00 AM CDT Office Visit [address] [address] Nathan Martinez MD Lumbar radiculopathy (Primary Dx); Type 2 diabetes mellitus with hyperglycemia, without long-term current use of insulin (HCC); Major depression in remission; Attention deficit hyperactivity disorder (ADHD), predominantly inattentive type; Psychophysiologic insomnia; High risk medication use; Encounter for drug screening from Last 3 Months Immunizations Immunization Administration [...] fracture, right Wrist fracture, left Sleep apnea 2011 Hypertension 1995 Anxiety GI (gastrointestinal bleed) 2007 Family History [...] = 0.6 oz pur e alcohol) [facility] Utilities Answer Date Recorded In the past 12 months has [employer], oil, or water [employer] threatened to shut off services in your [...] 10/13/2024 How often do you attend chur or hoahaoism services? Never 10/13/2024 Do you belong to any clubs o r organizations such as hinduism groups, unions, fraternal or athletic groups, or [...] were you homeless or living in a detention (including now)? No 10/13/2024 Personal Safety Answer [...] Date/Time Associated Diagnosis Comments SCAN - RADIOLOGY/IMAGING 03/13/2025 CHOLESTEROL, LDL, DIRECT Routine 02/20/2025 11:17 AM [...] W/CONF, URINE Routine 01/20/2025 10:52 AM CDT POCT HEMOGLOBIN A1C Routine 11/14/2024 1 1:39 AM CDT Controlled type 2 diabetes mellitus without complication, without long-term current use of insulin (HCC) EGFR Routine 10/12/2024 5:05 AM SENIOR SOLUTIONS CONSULTANT COLONOSCOPY Routine 05/09/2024 7:50 AM CDT from Last 3 Months or Most Recently Relevant to Health Maintenance Results * SCAN - RADIOLOGY/IMAGING (03/13/2025) Anatomical Region Laterality Modality Other us Provider Scanning Edited Result - Final * (ABNORMAL) Cholesterol, LDL, direct (02/20/2025 11:17 AM CDT) Pathologist [facility] LDL, direct 105(H) <100 mg/dL [facility] Comment: Desirable range <100 mg/dL for primary prevention; <70 mg/dL for patients with CHD or diabetic patients with > or = 2 CHD risk factors. Blood 02/20/2025 11:1 7 AM CDT 02/20/2025 11:17 AM CDT Nathan Martinez MD LAB BLOOD ORDERABLES Final Result Performing Organization Address [facility] de Phone Number [facility]ie [facility] [address] [place] [address] * Albumin Creatinine Ratio, Urine (01/20/2025 11:16 AM CDT) [facility] Creatinine, ur 122 20 - 320 mg/dL [...] URINE ORDERABLES Final Result Performing Organization Address [facility] de Phone Number [employer] [address] [place] [address] * Drug Monitor, Heroin Metab, QN, Urine (01/20/2025 10:52 AM CDT) [facility] 6-Acetylmorphi ne, ur NEGATIVE <10 ng/mL [facility] Heroin Metab Comments [facility] Comment:See LDT Notes 01/20/2025 10:5 2 AM CDT 01/21/2025 6:01 AM CDT Nathan Martinez MD LAB URINE ORDERABLES Final Result Performing Organization Address [facility] Co de Phone Number [facility] [address] [place] [address] * (ABNORMAL) Drug Monitor, Alcohol Metab, W/Conf, Urine (01/20/2025 10:52 AM CDT) Pathologist [facility] Alcohol Metabolites POSITIVE(A ) <500 ng/mL [facility] [...] URINE ORDERABLES Final Result Performing Organization Address [facility] de Phone Number QUEST [facility] [employer] [facility] [address] [place] [address] * Drug Monitoring Template (01/20/2025 10:52 AM CDT) Pathologist [facility] Notes and Comments [facility] [...] analytical performance characteristics have been determined by [employer]. It has not been cleared or approved by the FDA. This assay has been validated pursuant to the CLIA regulations and is used for clinical purposes. Healthcare Providers needing Interpretation assistance, please contact us at [phone] ( ) M-F, 8am to 10pm EST 01/20/2025 10:5 2 AM CDT 01/21/2025 6:01 AM CDT Nathan Martinez MD LAB URINE ORDERABLES Final Result Performing Organization Address City/State/[facility] Co de Phone Number [facility]ST [facility] [address] [place] [address] * (ABNORMAL) Drug Monitor,Panel 1 w/Conf, Urine (01/20/2025 10:52 AM CDT) Amphetamine, ur, quant NEGATIVE <500 ng/mL [facility] Barbiturates, ur NEGATIVE <300 ng/mL [facility] Benzodiazepines NEGATIVE <100 ng/mL [facility] Cocaine metabolite NEGATIVE <150 ng/mL [facility] Marijuana Metabolite POSITIVE(A) <20 ng/mL [facility] Marijuana Metabolite 16(H) <5 ng/mL [facility] Marijuana Comments [facility] Comment:See Marijuana Notes, LDT Notes Methadone Metabolite NEGATIVE <100 ng/mL [facility] Opiates POSITIVE(A) <100 ng/mL [facility] Codeine NEGATIVE <50 ng/mL [facility] Hydrocodone 4,562(H) <50 ng/mL [facility] Hydromorphone 163(H) <50 ng/mL [facility] Morphine NEGATIVE <50 ng/mL [facility] [place] Norhydrocodone 4,808(H) <50 ng/mL [facility] [place] Opiates Comments [facility] Comment:See Opiates Notes, L DT Notes Oxycodone NEGATIVE <100 ng/mL [facility] Phencyclidine NEGATIVE <25 ng/mL [facility] [place] Creatinine 120.3 > or = 20.0 mg/dL [facility] pH, ur 5.5 4.5 - 9.0 [facility] Oxidant NEGATIVE <200 mcg/mL [facility] 01/20/2025 10:5 2 AM CDT 01/21/2025 6:01 AM CDT Nathan Martinez MD LAB URINE ORDERABLES Final Result Performing Organization Address City/State/[facility] Co de Phone Number [facility] [address] [place] [address] * (ABNORMAL) POCT hemoglobin A1c (11/14/2024 11:39 AM CDT) Hemoglobin A1C, POC 7.4 4.0 - 5.6 % Blood 11/14/2024 11:3 9 AM CDT Nathan Martinez MD POINT OF CARE TEST ORDERAB LES Final Result * eGFR (10/12/2024 5:05 AM SENIOR SOLUTIONS CONSULTANT) eGFR 89 >=60 mL/min/1. 73 m2 Comment: [...] reviewed 2021. Testing performed by: [facility], [address] [place] [address]., [address] Blood 10/12/2024 5:05 AM SENIOR SOLUTIONS CONSULTANT 10/12/2024 5:34 AM SENIOR SOLUTIONS CONSULTANT Baldomero Sung MD LAB BLOOD ORDERABLES Final Result [facility] [address] [facility] Department [place] [address] * (ABNORMAL) Colonoscopy (05/09/2024 7:50 AM CDT) Anatomical Region Laterality Modality Other Historical Provider ENDOSCOPY PROCEDURES Marilee l Result from Last 3 Months or Most Recently Relevant to Health Maintenance Insurance [facility] CLAIMS [facility] CLAIMS [facility] CLAIMS Advance Directives For more information, please contact: [phone] * Full Code (Latest Code Status on File) Date Activated Date Inactivated Comments 10/12/2024 2:05 AM 10/15/2024 5:49 PM Care Teams Photographer Finish Relationship Specialty Start Date End Date Nathan Martinez MD PCP - General Family Practice 09/10/20 Monique Garcia MD Referring Physician Gastroenterology 06/11/20 Monique Garcia MD Referring Physician Gastroenterology 06/11/20
--- OUTSIDE RECORDS SUMMARY | 2025-04-10 00:05 | XMS_ITS ---
Author Name Interface, [id number] lity Address [address] [place] [address] [facility] ecLAN mcintosh Address [address] [place] [address] Allergies and Adverse Reactions Medication/Group Name Reaction [...]
[2025-04-10 00:07] VITALS: BP 131/88; PULSE 93; RESP 16; TEMP 36.8; O2SAT 96
--- NOTE | 2025-04-10 01:27 | PC.NURSE ---
Pt to rn heart I havent seen anyone move in over an hour. You can take me off the list. This rn removed pt bracelet. Pt ambulatory with steady gait to exit. nad noted.
--- OUTSIDE RECORDS SUMMARY | 2025-04-10 02:00 | XMS_ITS | CCD ---
Author Name Interface, [id number] lity Address [address] [place] [address] [facility] e[facility]ists, LAN Address [address] [place] [address] Care Team Providers Care Special Machine Stitcher Name Role Phone Darien GUNN, Mata James [...]
--- OUTSIDE RECORDS SUMMARY | 2025-04-10 02:00 | XMS_ITS ---
Author Name Interface, [id number] lity Address [address] [place] [address] [facility] ecLAN mcintosh Address [address] [place] [address] Allergies and Adverse Reactions Medication/Group Name Reaction [...]
--- OUTSIDE RECORDS SUMMARY | 2025-04-10 02:00 | XMS_ITS | Clinical Summary ---
Author Organization [facility] Address [address] [place] [address] Care Team Providers Care Shirt Hemmer Name Role Phone Monique Garcia MD Unavailable [phone] Monique Garcia MD Unavailable [phone] Nathan Martinez MD Primary Care Provider [phone] Allergies Active Allergy Reactions Criticality Noted Date [...] today with results pending. Slight relief with [place] 5 mg. We will increase dosage to [...] mg Assessment & Plan (10/15/2023 11:29 AM [facility] [employer]): A1c today . Continue glipizide/Trulicity at same [...] 09/12/2022 Assessment & Plan (09/12/2022 9:35 AM [employer]): Some tinnitus for 2 months. Possible hearing loss. Ear canals normal today drums normal ENT refer Lipidemia 09/11/2022 Assessment & Plan (02/20/2025 11:05 AM CDT): Continue atorvastatin at same dosage. Well controlled. Needs repeat lipids Assessment & Plan (11/11/2024 2:33 PM CDT): Continue atorvastatin but needs repeat lipids Assessment & Plan (08/05/2024 2:15 PM [employer] [employer]): Continue atorvastatin same dosage. Needs repeat lipid Assessment & Plan (05/01/2024 12:22 PM CDT): Needs repeat lipids. Continue atorvastatin at same dose. Assessment & Plan (01/07/2024 4:08 PM CDT): Continue atorvastatin same dosage but needs repeat lipids. Assessment & Plan (10/15/2023 11:35 AM [employer]): Continue atorvastatin at same dosage. Well controlled. Assessment & Plan (06/23/2023 2:03 PM CDT): Continue Lipitor same dosage but needs repeat lipids. Assessment & Plan (01/15/2023 1:58 PM CDT): Continue atorvastatin same dosage but needs repeat lipids Assessment & Plan (09/11/2022 3:45 PM [facility] [employer] [employer]): Continue atorvastatin same dosage Acute left ankle [...] counseling. Assessment & Plan (10/15/2023 12:07 PM [facility] [employer]): Diabetic foot exam: Left monofilament exam: normal [...] surgeon Assessment & Plan (09/02/2021 8:59 AM [facility] [employer]): Pain most recently is in the right [...] 09/02/2021 Assessment & Plan (09/02/2021 9:00 AM [facility] [employer] [employer]): Refer to Dermatology Chronic abdominal pain 08/30/2021 Assessment & Plan (05/02/2024 3:02 PM CDT): History of multiple adhesions and several times he has had to had bowel obstruction treated. Constant pain. Worse about 30 minutes after eating. Referral to GI. Left lower quadrant Assessment & Plan (09/16/2021 9:44 AM [facility] [employer]): Try peppermint oil pill daily. Discontinue Levbid. Refer to GI. Needs colonoscopy. Assessment & Plan (09/02/2021 8:59 AM [facility] [employer]): Previous pain is similar to this pain [...] controlled. Assessment & Plan (08/05/2024 2:14 PM [employer]): Continue Provigil at same dosage. Well controlled. Return 3 months Assessment & Plan (05/01/2024 12:20 PM CDT): Continue Provigil at same dosage. Well controlled. Return 3 months Assessment & Plan (01/07/2024 4:03 PM CDT): Continue Provigil at same dosage. Well controlled. Assessment & Plan (10/16/2023 1:08 PM [employer]): Takes Provigil off-label. Adequate control with medicine. [...] usage. Assessment & Plan (09/13/2021 9:27 AM [facility] [employer]): Continue modafinil at same dosage. Well controlled. No signs of toxicity and patient understands this is off-label treatment Assessment & Plan (08/30/2021 7:27 AM [facility] [employer]): Allow modafinil as no evidence of toxicity and evidence of benefit Assessment & Plan (06/11/2021 1:30 PM CDT): Continue Provigil at same dosage. Well controlled. Assessment & Plan (02/08/2021 10:32 AM CDT): Continue modafinil at same dosage. Well controlled. Assessment & Plan (11/09/2020 1:42 PM CDT): Allow modafinil but understands off-label Assessment & Plan (10/08/2020 10:45 AM [facility] [employer] [employer]): Previously diagnosed with this by psychiatrist at [...] PFTs Assessment & Plan (10/08/2020 10:46 AM [facility] [employer]): Much improved Assessment & Plan (09/10/2020 10:03 AM [facility] [employer] [employer]): Mainly with exertion and will refer to [...] disease Assessment & Plan (10/08/2020 10:45 AM [facility] [employer] [employer]): Much improved Assessment & Plan (09/10/2020 9:58 AM [facility] [employer] [employer]): Persisting cough and will refer to Pulmonary for Rash 09/10/2020 Assessment & Plan (10/08/2020 10:45 AM [facility] [employer] [employer]): Much improved Assessment & Plan (09/10/2020 10:02 AM [facility] [employer] [employer]): There is a dry Pash of eczematoid type rash on his back that is different than psoriasis he has other areas. We will give him some topical hydrocortisone cream but not to use longer than 2 weeks as risk of atrophy and tolerance. Nasal polyp 09/10/2020 Assessment & Plan (09/10/2020 10:07 AM [facility]): ENT referral Anemia 09/09/2020 Assessment & Plan (09/09/2020 1:03 PM [facility] [employer] [employer]): Needs iron studies and methylmalonic acid level. [...] months. Assessment & Plan (08/08/2024 11:33 AM [facility] [employer] [employer]): A1c today. Is improved at 7.0. Continue [...] controlled. Assessment & Plan (09/11/2022 3:47 PM [employer]): A1C TODAY.BMI Follow-up includes: nutrition counseling and [...] weekly Assessment & Plan (09/16/2021 9:43 AM [facility] [employer] [employer]): A1c today. Diabetes needing better control. No hypoglycemic symptoms. Metformin, Jardiance, and glipizide daily. No significant improvement and will add Trulicity 0.75 mg weekly Assessment & Plan (08/30/2021 7:25 AM [facility] [employer] [employer]): A1c today. Assessment & Plan (06/17/2021 10:38 [...] today. Assessment & Plan (10/08/2020 10:42 AM [facility] [employer] [employer]): Check fasting blood sugar today. Result is 415 no he has had better sugars at home. No hypoglycemic symptoms will increase Jardiance to 25 mg daily as he has had no side effects. Assessment & Plan (09/10/2020 9:58 AM [facility] [employer] [employer]): Needs better control. Medication options discussed. Risk [...] controlled. Assessment & Plan (10/15/2023 11:36 AM [facility] [employer] [employer]): Continue trazodone at same dosage. Well controlled. Assessment & Plan (06/23/2023 2:04 PM CDT): Continue trazodone same dosage. Well controlled. Assessment & Plan (01/15/2023 1:59 PM CDT): Continue trazodone at same dosage. Well controlled. Assessment & Plan (09/11/2022 3:44 PM [facility] [employer] [employer]): Continue trazodone Assessment & Plan (05/02/2022 11:04 AM CDT): Continue trazodone at same dosage. Well controlled. Assessment & Plan (12/13/2021 9:57 AM CDT): Continue trazodone at same dosage. Well controlled. Assessment & Plan (08/30/2021 7:26 AM [facility] [employer] [employer]): Continue trazodone at same dosage. Well controlled. Assessment & Plan (06/11/2021 1:30 PM CDT): Continue trazodone at same dosage. Well controlled. Assessment & Plan (02/08/2021 10:36 AM CDT): Continue trazodone at same dosage. Well controlled. Assessment & Plan (10/08/2020 10:31 AM [facility] [employer] [employer]): Improved. Continue trazodone 100 mg Assessment & Plan (09/10/2020 10:00 AM [facility] [employer]): Increase trazodone to 100 mg needs better [...] controlled. Assessment & Plan (08/05/2024 2:13 PM [employer] [employer]): Continue Lexapro at same dosage. Well controlled. Assessment & Plan (05/01/2024 12:21 PM CDT): Continue Lexapro at same dosage. Well controlled. Assessment & Plan (01/07/2024 4:04 PM CDT): Continue Lexapro at same dosage. Well controlled. Assessment & Plan (10/15/2023 11:35 AM [facility] [employer] [employer]): Continue Lexapro at same dosage. Well controlled. Assessment & Plan (06/23/2023 2:07 PM CDT): Continue Lexapro at same dosage. Well controlled. Assessment & Plan (01/15/2023 2:00 PM CDT): Continue Lexapro at same dosage. Well controlled. Assessment & Plan (09/11/2022 3:44 PM [facility] [employer] [employer]): Continue Lexapro at same dosage. Well controlled. Assessment & Plan (05/02/2022 11:00 AM CDT): Continue Lexapro at same dosage. Well controlled. Assessment & Plan (12/13/2021 9:57 AM CDT): Continue Lexapro at same dosage. Well controlled. Assessment & Plan (08/30/2021 7:26 AM [facility] [employer] [employer]): Continue Lexapro at same dosage. Well controlled. Assessment & Plan (06/11/2021 1:30 PM CDT): Continue Lexapro at same dosage. Well controlled. Assessment & Plan (02/08/2021 10:33 AM CDT): Continue Lexapro at same dosage. Well controlled. Assessment & Plan (11/09/2020 1:42 PM CDT): Continue Lexapro at same dosage. Well controlled. Assessment & Plan (09/09/2020 1:01 PM [facility] [employer]): Continue medication at same dosage. Well controlled. [...] Department Care Team Description 03/13/2025 Orders Only [facility] Health Information Management [address] [place], [place] [id number] Scanning, Provider 02/21/2025 Results Follow-Up [facility] [address] [place] [address] Nathan Martinez MD Cholesterol, LDL, direct 02/20/2025 10:45 AM CDT Office Visit [facility] [address] [place] [address] Nathan Martinez MD Lumbar radiculopathy (Primary Dx); Mixed hyperlipidemia; Screening PSA (prostate specific antigen); Alcohol abuse; Type 2 diabetes mellitus with hyperglycemia, without long-term current use of insulin (HCC) 01/25/2025 Results Follow-Up [facility] [address] [place] [address] Nathan Martinez MD Albumin Creatinine Ratio, Urine 01/20/2025 11:00 AM CDT Office Visit [address] [address] Nathan Martinez MD Lumbar radiculopathy (Primary Dx); [...] drink = 0.6 oz pur e alcohol) [facility] Utilities Answer Date Recorded In the past 12 months has [employer], [employer], oil, or water [employer] threatened to shut off services in your [...] How often do you attend chur or sabianism services? Never 10/13/2024 Do you [...] time in the past [address] [facility], were you homeless or living in a half-way (including now)? No 10/13/2024 Personal Safety Answer [...] insulin (HCC) EGFR Routine 10/12/2024 5:05 AM [facility] [employer] COLONOSCOPY Routine 05/09/2024 7:50 AM CDT from Last 3 Months or Most Recently Relevant to Health Maintenance Results * SCAN - RADIOLOGY/IMAGING (03/13/2025) Anatomical Region Laterality Modality Other us Provider Scanning Edited Result - Final * (ABNORMAL) Cholesterol, LDL, direct (02/20/2025 11:17 AM CDT) Pathologist [facility] LDL, direct 105(H) <100 mg/dL [facility] Comment: Desirable range <100 mg/dL for primary prevention; <70 mg/dL for patients with CHD or diabetic patients with > or = 2 CHD risk factors. Blood 02/20/2025 11:1 7 AM CDT 02/20/2025 11:17 AM CDT Nathan Martinez MD LAB BLOOD ORDERABLES Final Result Performing Organization Address [facility] de Phone Number [email or web address] [address] [place] [address] * Albumin Creatinine Ratio, Urine (01/20/2025 11:16 AM CDT) [facility] Creatinine, ur 122 20 - 320 mg/dL [...] URINE ORDERABLES Final Result Performing Organization Address [facility] de Phone Number [place] [employer] [address] [place] [address] * Drug Monitor, Heroin Metab, QN, Urine (01/20/2025 10:52 AM CDT) [facility] 6-Acetylmorphi ne, ur NEGATIVE <10 ng/mL [facility] Heroin Metab Comments [facility] Comment:See LDT Notes 01/20/2025 10:5 2 AM CDT 01/21/2025 6:01 AM CDT Nathan Martinez MD LAB URINE ORDERABLES Final Result Performing Organization Address [facility] Co de Phone Number [facility] [address] [place] [address] * (ABNORMAL) Drug Monitor, Alcohol Metab, W/Conf, Urine (01/20/2025 10:52 AM CDT) Pathologist [facility] Alcohol Metabolites POSITIVE(A ) <500 ng/mL [facility] [...] URINE ORDERABLES Final Result Performing Organization Address [facility] de Phone Number [facility] [address] [place] [address] * Drug Monitoring Template (01/20/2025 10:52 AM CDT) Pathologist [facility] Notes and Comments [facility] [...] analytical performance characteristics have been determined by [facility]. It has not been cleared or approved by the FDA. This assay has been validated pursuant to the CLIA regulations and is used for clinical purposes. Healthcare Providers needing Interpretation assistance, please contact us at [phone] ( ) M-F, 8am to 10pm EST 01/20/2025 10:5 2 AM CDT 01/21/2025 6:01 AM CDT Nathan Martinez MD LAB URINE ORDERABLES Final Result Performing Organization Address City/State/[facility] Co de Phone Number [facility] [address] [place] [address] * (ABNORMAL) Drug Monitor,Panel 1 w/Conf, Urine (01/20/2025 10:52 AM CDT) Amphetamine, ur, quant NEGATIVE <500 ng/mL [facility] Barbiturates, ur NEGATIVE <300 ng/mL [facility] Benzodiazepines NEGATIVE <100 ng/mL [facility] Cocaine metabolite NEGATIVE <150 ng/mL [facility] Marijuana Metabolite POSITIVE(A) <20 ng/mL [facility] Marijuana Metabolite 16(H) <5 ng/mL [facility] Marijuana Comments [facility] Comment:See Marijuana Notes, LDT Notes Methadone Metabolite NEGATIVE <100 ng/mL [facility] Opiates POSITIVE(A) <100 ng/mL [facility] Codeine NEGATIVE <50 ng/mL [facility] Hydrocodone 4,562(H) <50 ng/mL [facility] Hydromorphone 163(H) <50 ng/mL [facility] Morphine NEGATIVE <50 ng/mL [facility] Norhydrocodone 4,808(H) <50 ng/mL [facility] Opiates Comments [facility] Comment:See Opiates Notes, L DT Notes Oxycodone NEGATIVE <100 ng/mL [facility] Phencyclidine NEGATIVE <25 ng/mL [facility] Creatinine 120.3 > or = 20.0 mg/dL [facility] pH, ur 5.5 4.5 - 9.0 [facility] Oxidant NEGATIVE <200 mcg/mL [facility] 01/20/2025 10:5 2 AM CDT 01/21/2025 6:01 AM CDT Nathan Martinez MD LAB URINE ORDERABLES Final Result Performing Organization Address City/State/[facility] Co de Phone Number [facility] [address] [place] [address] * (ABNORMAL) POCT hemoglobin A1c (11/14/2024 11:39 AM CDT) Hemoglobin A1C, POC 7.4 4.0 - 5.6 % Blood 11/14/2024 11:3 9 AM CDT Nathan Martinez MD POINT OF CARE TEST ORDERAB LES Final Result * eGFR (10/12/2024 5:05 AM [facility] [employer] [employer]) eGFR 89 >=60 mL/min/1. 73 m2 Comment: [...] was last reviewed 2021. Testing performed by: [facility], [address] [place] [address]., [id number] Blood 10/12/2024 5:05 AM [facility] [employer] [employer] 10/12/2024 5:34 AM [facility] [employer] Baldomero Sung MD LAB BLOOD ORDERABLES Final Result [facility] [address] [facility] Department [place] [address] * (ABNORMAL) Colonoscopy (05/09/2024 7:50 AM CDT) Anatomical Region Laterality Modality Other Historical Provider ENDOSCOPY PROCEDURES Marilee l Result from Last 3 Months or Most Recently Relevant to Health Maintenance Insurance [facility] CLAIMS [facility] CLAIMS [facility] CLAIM[facility] Advance Directives For more information, please contact: [phone] * Full Code (Latest Code Status on File) Date Activated Date Inactivated Comments 10/12/2024 2:05 AM 10/15/2024 5:49 PM Care Teams Shirt Hemmer Relationship Specialty Start Date End Date Nathan Martinez MD PCP - General Family Practice 09/10/20 Monique Garcia MD Referring Physician Gastroenterology 06/11/20 Monique Garcia MD Referring Physician Gastroenterology 06/11/20
--- OUTSIDE RECORDS SUMMARY | 2025-04-10 02:00 | XMS_ITS ---
Author Name Interface, [id number] lity Address [address] [place] [address] [facility] [employer] mcintosh Address [address] [place] [address] Allergies and Adverse Reactions Medication/Group Name Reaction [...]
--- OUTSIDE RECORDS SUMMARY | 2025-04-10 02:00 | XMS_ITS | Clinical Summary ---
Author Organization [facility] [employer] Address [address] [place] [address] Care Team Providers Care Data Network Architect Name Role Phone Unavailable Primary Care Provider Unavailabl e Source Comments [facility] [employer],non-owned Affiliates and Associated Physician Practices is amultiple site organization consisting of ambulatory clinics and hospital sitesin [place], [place], [place] and [place]. This disclosure is being madepursuant to the Care Everywhere program and may not contain all information available regarding this patient. Last updated 18.[facility] [employer] Allergies Active Allergy Reactions Criticality Noted Date [...] by mouth at bedtime Active HYDROcodone-acet aminophen ([place]) 5-325 MG tabletIndication s:Right groin pain Take [...] patient's age to complete this topic Insurance [facility] [address] Advance Directives * Full Code (Latest Code Status on File) Date Activated Date Inactivated Comments 01/02/2025 4:40 AM 01/04/2025 5:47 PM * Full Code Date Activated Date Inactivated Comments 01/10/2015 10:22 PM 01/12/2015 5:26 PM
--- OUTSIDE RECORDS SUMMARY | 2025-04-10 02:00 | XMS_ITS | CCD ---
Author Name Interface, [id number] lity Address [address] [place] [address] [facility] Address [address] [place] [address] Care Team Providers Care Clinical Radiologist Name Role Phone Darien GUNN, Mata James [...]
--- OUTSIDE RECORDS SUMMARY | 2025-04-10 02:00 | XMS_ITS | Encounter Summary ---
Author Organization [facility] Address [address] [place] [address] Care Team Providers Care Twisthand Name Role Phone Monique Garcia MD Unavailable [phone] Monique Garcia MD Unavailable [phone] Nathan Martinez MD Primary Care Provider [phone] Encounter Details Date Type Department Care Team (Late st Contact Info) Description 02/21/2025 Results Follow-Up [facility] Primary [facility] [address] [place] [address] Nathan Martinez MD [address] [place] [address] Cholesterol, LDL, direct Social History Tobacco Use Types Packs/Day Years Used Date Smoking Tobacco: Never Smokeless Tobacco: Current Chew Comments:advised to quit 1 c an of chew per week since 1994 Alcohol Use Standard Drinks/Week Comments Not Currently 0 (1 standard drink = 0.6 oz pur e alcohol) [facility] Utilities Answer Date Recorded In the past 12 months has [employer] 6 electric, gas, oil, or water company threatened [...] week 10/13/2024 How often do you attend [employer] or orthodoxy services? Never 10/13/2024 Do you belong to [...] any time in the past 12 m [facility], were you homeless or living in a [...] 02/21/2025 8:13 AM CDT Patient advised via [employer]. documented in this encounter Plan of Treatment Not on file documented as of this encounter Visit Diagnoses Not on filedocumented in this encounter Care Teams Twisthand Relationship Specialty Start Date End Date Nathan Martinez MD PCP - General Family Practice 09/10/20 Monique Garcia MD Referring Physician Gastroenterology 06/11/20 Monique Garcia MD Referring Physician Gastroenterology 06/11/20 documented as of this encounter
== END 2025-04-10 01:27 | disposition left against medical advice (07) ==
LOC: ANHED 01:58
PROVIDERS: PCP Family Medicine
DX: R10.32 Left lower quadrant pain (principal)
CPT/HCPCS: 99199

== ENCOUNTER 2025-06-09 14:12 | Emergency (ER) | payer OTHER, SELFPAY ==
--- OUTSIDE RECORDS SUMMARY | 2025-06-09 14:14 | XMS_ITS | Clinical Summary ---
Author Organization [facility] Address [address] [place] [address] Phone Care Team Providers Care Button Reclaimer Name Role Phone Unavailable Primary Care Provider Unavailabl e Allergies Active Allergy Reactions Criticality Noted Date Comments Gabapentin Anxiety Low 04/15/2025 Ketorolac Hives High 04/15/2025 Zolpidem Other (See Comments) 04/15/2025 Sleep walk/cook Medications escitalopram oxalate (LEXAPRO) 5 mg tablet Take 5 mg by mouth daily. Active trazodone HCl (TRAZODONE ORAL) Take by mouth. Activ e GEMTUZUMAB OZOGAMICIN IV Inject by intravenous injection. Active Encounters Date Type Department Care Team Description 05/30/2025 External Device Data [facility] ABSTRACTION Provider, Abstract 05/16/2025 External Device Data [facility] ABSTRACTION Provider, Abstract 05/16/2025 External Device Data [facility] ABSTRACTION Provider, Abstract 05/16/2025 External Device Data [facility] ABSTRACTION Provider, Abstract 05/10/2025 External Device Data [facility] ABSTRACTION Provider, Abstract 04/19/2025 External Device Data [facility] ABSTRACTION Provider, Abstract 04/18/2025 External Device Data [facility] ABSTRACTION Provider, Abstract 04/18/2025 External Device Data [facility] ABSTRACTION Provider, Abstract 04/15/2025 1:09 AM CDT - 04/15/2025 4:15 AM CDT Emergency [facility] Emergency Department [address] [place] [address] Jose De Jesus Ibrahim MD Left lower quadrant abdominal pain (Primary Dx); Enteritis Discharge Disposition: Home or Self Care 04/15/2025 Travel from Last 3 Months Social History Tobacco Use Types Packs/Day Years Used Date Smoking Tobacco: Never Tobacco Cessation:Counseling Given: Not Answered Feeling Safe Answer Date Recorded Are you in a relationship wi th someone who hurts you emotionally and/or physically? No 04/15/2025 Sex and Gender Information Value Date Recorded Sex Assigned at Not on file Legal Sex Male 8:29 AM CDT Gender Identity Not on file Sexual Orientation Not on file Last Filed Vital Signs Vital Sign Reading Time Taken Comments Blood Pressure 137/86 04/15/2025 4:00 AM CDT Pulse 74 04/15/2025 4:00 AM CDT Temperature 36.6 C (97.9 F) 04/15/2025 1:12 AM CDT Respiratory Rate 16 04/15/2025 1:12 AM CDT Oxygen Saturation 76% 04/15/2025 4:05 AM CDT Inhaled Oxygen Concentration - - Weight 86.2 kg (190 lb) 04/15/2025 1:12 AM CDT Height - - Body Mass Index - - Plan of Treatment Health Maintenance Due Date Last Done Comments DIABETES ANNUAL RETINAL EXAM 1987 DIABETES MICROALBUMIN ANNUAL SCREEN 1987 LDL CHOLESTEROL ANNUAL 1987 HEPATITIS B VACCINES (2 of 3 - Hep B Twinrix 3-dose series) 05/31/2008 05/03/2008 FIT-DNA Q 3 years 2014 FIT/FOBT Q 1 year 2014 Flex Sig/CT Colonography Q 5 years 2014 ZOSTER VACCINE (1 of 2) 2019 INFLUENZA VACCINE (#1) 2025 4, 05/24/2012, 05/14/2011, Additional history exists DIABETES HBA1C Q 6 MONTHS 05/17/2025 11/14/2024, DIABETES ANNUAL FOOT EXAM 11/14/2025 11/14/2024 DTAP/TDAP/TD VACCINES (3 - T d or Tdap) 11/28/2032 11/28/2022, 08/24/2011 COLORECTAL SCREENING 05/09/2034 05/09/2024 Colorectal Cancer Screening 05/09/2034 Procedures Procedure Name Priority Date/Time Associated Diagnosis Comments CT ABDOMEN PELVIS W CONTRAST Stat 04/15/2025 2:39 AM CDT LACTIC ACID Stat 04/15/2025 1:26 AM CDT CBC WITH DIFFERENTIAL Stat 04/15/2025 1:22 AM CDT COMPREHENSIVE METABOLIC PANEL Stat 04/15/2025 1:22 AM CDT from Last 3 Months Results * CT ABDOMEN PELVIS W CONTRAST (04/15/2025 2:39 AM CDT) Anatomical Region Laterality Modality Abdomen Computed Tomogra phy 04/15/2025 2:37 AM CDT Impressions 04/15/2025 3:32 AM CDT IMPRESSION: 1. No urinary or bowel obstruction. 2. Fluid-filled distal small bowel. Multiple air fluid levels. Correlate for enteritis. 3. Status post appendectomy and cholecystectomy. All CT scans are performed using dose optimization techniques as appropriate to the performed exam and include at least one of the following: Automated exposure control, adjustment of the mA and/or kV according to size, and the use of iterative reconstruction technique. Electronically signed by: NED CASTILLO M.D. Date: 04/15/2025 Time: 03:31 Narrative 04/15/2025 3:32 AM CDT EXAM: CT ABDOMEN PELVIS W CONTRAST 04/15/2025. SAGITTAL AND CORONAL REFORMATTED IMAGES OBTAINED HISTORY: ABDOMINAL PAIN, ACUTE, NONLOCALIZED COMPARISON: 06/09/2023 FINDINGS: The liver shows no acute abnormality. The gallbladder has been removed. The adrenal glands, kidneys, spleen and pancreas show no acute abnormality. There is no bowel obstruction. Unremarkable urinary bladder. No free air. No free fluid. Status post appendectomy. Fluid-filled distal small bowel. This may be within normal limits. Correlate for enteritis. Procedure Note Ned Castillo MD - 04/15/2025 EXAM: CT ABDOMEN PELVIS W CONTRAST 04/15/2025. SAGITTAL AND CORONALREFORMATTED IMAGES OBTAINED HISTORY: ABDOMINAL PAIN, ACUTE, NONLOCALIZED COMPARISON: 06/09/2023 FINDINGS: The liver shows no acute abnormality. The gallbladder has beenremoved. The adrenal glands, kidneys, spleen and pancreas show no acute abnormality. There is no bowel obstruction. Unremarkable urinary bladder. No free air.No free fluid. Status post appendectomy. Fluid-filled distal small bowel. This may be within normallimits. Correlate for enteritis. IMPRESSION: 1. No urinary or bowel obstruction. 2. Fluid-filled distal small bowel. Multiple air fluid levels. Correlatefor enteritis. 3. Status post appendectomy and cholecystectomy. All CT scans are performed using dose optimization techniques asappropriate to the performed exam and include at least one of the following: Automated exposure control, adjustment ofthe mA and/or kV according to size, and the use of iterative reconstruction technique. Electronically signed by: NED CASTILLO M.D. Date: 04/15/2025 Time: 03:31 us Jose De Jesus Ibrahim MD CT ORDERABLES Final Result * LACTIC ACID (04/15/2025 1:26 AM CDT) [facility] LACTIC ACID 1.4 <=2.0 mmol/L 04/15/2025 1:59 AM CDT [facility] Blood Venipuncture / Unknown 04/15/2025 1:26 AM CDT 04/15/2025 1:29 AM CDT us Jose De Jesus Ibrahim MD CHEMISTRY ORDERABLES Final Res ult [facility] CLIA# [id number] [address] [place] [id number] * (ABNORMAL) CBC WITH DIFFERENTIAL (04/15/2025 1:22 AM CDT) Pathologist [facility] WBC 7.6 4.0 - 10.5 K/uL 04/15/2025 1:38 AM CDT [facility] RBC 5.18 4.50 - 6.00 M/uL 04/15/2025 1:38 AM CDT [facility] HEMOGLOBIN 13.8 13.5 - 18.0 g/dL 04/15/2025 1:38 AM CDT [facility] HEMATOCRIT 40.8(L) 41.0 - 52.0 % 04/15/2025 1:38 AM CDT [facility] MCV 78.8 78.0 - 100.0 fL 04/15/2025 1:38 AM CDT [facility] MCH 26.6(L) 27.0 - 32.0 pg 04/15/2025 1:38 AM CDT [facility] MCHC 33.8 32.0 - 36.0 g/dL 04/15/2025 1:38 AM CDT [facility] RDW 13.7 11.0 - 14.0 % 04/15/2025 1:38 AM CDT [facility] RDW-STDEV 39.3 34.0 - 54.0 fL 04/15/2025 1:38 AM CDT [facility] PLATELETS 286 150 - 450 K/uL 04/15/2025 1:38 AM CDT [facility] MPV 9.2 8.5 - 12.5 fL 04/15/2025 1:38 AM CDT [facility] NEUTROPHILS 59 50 - 70 % 04/15/2025 1:38 AM CDT [facility] LYMPHOCYTES 32 20 - 40 % 04/15/2025 1:38 AM CDT [facility] MONOCYTES 7 0 - 10 % 04/15/2025 1:38 AM CDT [facility] EOSINOPHILS 1 0 - 3 % 04/15/2025 1:38 AM CDT [facility] BASOPHILS 1 0 - 2 % 04/15/2025 1:38 AM CDT [facility] IMMATURE GRANULOCYTES 0 0 - 2 % 04/15/2025 1:38 AM CDT [facility] NEUTROPHIL ABSOLUTE 4.50 1.50 - 6.60 K/uL 04/15/2025 1:38 AM CDT [facility] LYMPHOCYTE ABSOLUTE 2.45 1.50 - 3.50 K/uL 04/15/2025 1:38 AM CDT [facility] MONOCYTE ABSOLUTE 0.56 0.00 - 1.00 K/uL 04/15/2025 1:38 AM CDT [facility] EOSINOPHIL ABSOLUTE 0.05 0.00 - 0.50 K/uL 04/15/2025 1:38 AM CDT [facility] BASOPHILS ABSOLUTE 0.04 0.00 - 0.10 K/uL 04/15/2025 1:38 AM CDT [facility] IMMATURE GRANULOCYTES ABSOLUTE 0.01 0.00 - 0.31 K/uL 04/15/2025 1:38 AM CDT [facility] Blood Venipuncture / Unknown 04/15/2025 1:22 AM CDT 04/15/2025 1:29 AM CDT us Jose De Jesus Ibrahim MD HEMATOLOGY ORDERABLES Final Re sult [facility] CLIA# [id number] [address] [place] [phone] * (ABNORMAL) COMPREHENSIVE METABOLIC PANEL (04/15/2025 1:22 AM CDT) SODIUM 137 136 - 145 mmol/L 04/15/2025 3:13 AM CDT [facility] POTASSIUM 3.8 3.5 - 5.0 mmol/L 04/15/2025 3:13 AM CDT [facility] CHLORIDE 102 98 - 107 mmol/L 04/15/2025 3:13 AM CDT [facility] CO2 23 22 - 29 mmol/L 04/15/2025 3:13 AM CDT [facility] Comment:This is a corrected result. Previous result was 24 mmol/L on 04/15/2025 at 0205 CDT CALCIUM 9.0 8.6 - 10.5 mg/dL 04/15/2025 3:13 AM CDT [facility] Comment:This is a corrected result. Previous result was 9.3 mg/dL on 04/15/2025 at 0205 CDT BUN 12 6 - 21 mg/dL 04/15/2025 3:13 AM CDT [facility] CREATININE 1.00 0.70 - 1.20 mg/dL 04/15/2025 3:13 AM CDT [facility] Comment:This is a corrected result. Previous result was 1.06 mg/dL on 04/15/2025 at 0205 CDT GLUCOSE 162(H) 74 - 99 mg/dL 04/15/2025 3:13 AM CDT [facility] Comment:This is a corrected result. Previous result was 163 mg/dL on 04/15/2025 at 0205 CDT TOTAL PROTEIN 7.2 6.1 - 8.1 g/dL 04/15/2025 3:13 AM T [facility] Comment:This is a corrected result. Previous result was 7.5 g/dL on 04/15/2025 at 0205 CDT ALBUMIN 4.4 3.5 - 5.2 g/dL 04/15/2025 3:13 AM T [facility] BILIRUBIN TOTAL 0.2 0.0 - 1.2 mg/dL 04/15/2025 3:13 AM T [facility] Comment:This is a corrected result. Previous result was 0.3 mg/dL on 04/15/2025 at 0205 CDT ALKALINE PHOSPHATASE 68 40 - 129 U/L 04/15/2025 3:13 AM T [facility] Comment:This is a corrected result. Previous result was 66 U/L on 04/15/2025 at 0205 CDT AST 21 5 - 40 U/L 04/15/2025 3:13 AM T [facility] Comment:This is a corrected result. Previous result was 24 U/L on 04/15/2025 at 0205 CDT ALT 35 5 - 41 U/L 04/15/2025 3:13 AM T [facility] Comment:This is a corrected result. Previous result was 38 U/L on 04/15/2025 at 0205 CDT GFR >60 >=60 mL/min/1.7 3 sq meter 04/15/2025 3:13 AM T [facility] Comment:eGFR calculated with 2020 CKD-EPI equation. Vegetarian diet, extremely high or low muscle mass, and may affect results. Cystatin C with Glomerular Filtration Rate is a suitable alternative for these patients. ANION GAP 12 8 - 16 mmol/L 04/15/2025 3:13 AM CDT [facility] Blood Venipuncture / Unknown 04/15/2025 1:22 AM CDT 04/15/2025 1:29 AM CDT us Jose De Jesus Ibrahim MD CHEMISTRY ORDERABLES Final Res ult [facility] CLIA# [id number] [address] [place] [id number] from Last 3 Months Insurance [facility] Address: [facility] [id number] [place] [address]
--- OUTSIDE RECORDS SUMMARY | 2025-06-09 14:14 | XMS_ITS | Clinical Summary ---
Author Organization [facility] Address [address] [place] [address] Care Team Providers Care Cake Batter Mixer Name Role Phone Monique Garcia MD Unavailable [phone] Monique Garcia MD Unavailable [phone] Nathan Martinez MD Primary Care Provider [phone] Allergies Active Allergy Reactions Criticality Noted Date [...] mouth daily 30 tablet 11 10/16/19 25 Active modafiniL (PROVIGIL) 100 mg tablet [...] daily 90 tablet 3 02/21/20 25 Active traZODone (DESYREL) 100 mg tablet Take 1 tablet (100 mg total) by mouth nightly 7 tablet 05/31/20 25 Active escitalopram (LEXAPRO) 20 mg tablet Take 1 tablet (20 mg total) by mouth daily 7 tablet 05/31/20 25 Active traZODone (DESYREL) 100 mg tablet Take 1 tablet by mouth every night 90 tablet 1 11/15/19 25 025 Discontinued escitalopram (LEXAPRO) 20 mg tablet Take 1 tablet (20 mg total) by mouth daily 90 tablet 1 11/15/19 25 025 Discontinued(Re order) traZODone (DESYREL) 100 mg tablet TAKE 1 TABLET BY MOUTH EVERY NIGHT 30 tablet 05/18/20 25 025 Discontinued(Re order) Active Problems Problem [...] today with results pending. Slight relief with [place] 5 mg. We will increase dosage to [...] mg Assessment & Plan (10/15/2023 11:29 AM COTTON DISPATCHER): A1c today . Continue glipizide/Trulicity at same [...] 09/12/2022 Assessment & Plan (09/12/2022 9:35 AM COTTON DISPATCHER): Some tinnitus for 2 months. Possible hearing loss. Ear canals normal today drums normal ENT refer Lipidemia 09/11/2022 Assessment & Plan (02/20/2025 11:05 AM CDT): Continue atorvastatin at same dosage. Well controlled. Needs repeat lipids Assessment & Plan (11/11/2024 2:33 PM CDT): Continue atorvastatin but needs repeat lipids Assessment & Plan (08/05/2024 2:15 PM COTTON DISPATCHER): Continue atorvastatin same dosage. Needs repeat lipid Assessment & Plan (05/01/2024 12:22 PM CDT): Needs repeat lipids. Continue atorvastatin at same dose. Assessment & Plan (01/07/2024 4:08 PM CDT): Continue atorvastatin same dosage but needs repeat lipids. Assessment & Plan (10/15/2023 11:35 AM COTTON DISPATCHER): Continue atorvastatin at same dosage. Well controlled. Assessment & Plan (06/23/2023 2:03 PM CDT): Continue Lipitor same dosage but needs repeat lipids. Assessment & Plan (01/15/2023 1:58 PM CDT): Continue atorvastatin same dosage but needs repeat lipids Assessment & Plan (09/11/2022 3:45 PM COTTON DISPATCHER): Continue atorvastatin same dosage Acute left ankle [...] counseling. Assessment & Plan (10/15/2023 12:07 PM COTTON DISPATCHER): Diabetic foot exam: Left monofilament exam: normal [...] surgeon Assessment & Plan (09/02/2021 8:59 AM COTTON DISPATCHER): Pain most recently is in the right [...] 09/02/2021 Assessment & Plan (09/02/2021 9:00 AM COTTON DISPATCHER): Refer to Dermatology Chronic abdominal pain 08/30/2021 Assessment & Plan (05/02/2024 3:02 PM CDT): History of multiple adhesions and several times he has had to had bowel obstruction treated. Constant pain. Worse about 30 minutes after eating. Referral to GI. Left lower quadrant Assessment & Plan (09/16/2021 9:44 AM COTTON DISPATCHER): Try peppermint oil pill daily. Discontinue Levbid. Refer to GI. Needs colonoscopy. Assessment & Plan (09/02/2021 8:59 AM COTTON DISPATCHER): Previous pain is similar to this pain [...] controlled. Assessment & Plan (08/05/2024 2:14 PM COTTON DISPATCHER): Continue Provigil at same dosage. Well controlled. Return 3 months Assessment & Plan (05/01/2024 12:20 PM CDT): Continue Provigil at same dosage. Well controlled. Return 3 months Assessment & Plan (01/07/2024 4:03 PM CDT): Continue Provigil at same dosage. Well controlled. Assessment & Plan (10/16/2023 1:08 PM COTTON DISPATCHER): Takes Provigil off-label. Adequate control with medicine. [...] usage. Assessment & Plan (09/13/2021 9:27 AM COTTON DISPATCHER): Continue modafinil at same dosage. Well controlled. No signs of toxicity and patient understands this is off-label treatment Assessment & Plan (08/30/2021 7:27 AM COTTON DISPATCHER): Allow modafinil as no evidence of toxicity and evidence of benefit Assessment & Plan (06/11/2021 1:30 PM CDT): Continue Provigil at same dosage. Well controlled. Assessment & Plan (02/08/2021 10:32 AM CDT): Continue modafinil at same dosage. Well controlled. Assessment & Plan (11/09/2020 1:42 PM CDT): Allow modafinil but understands off-label Assessment & Plan (10/08/2020 10:45 AM COTTON DISPATCHER): Previously diagnosed with this by psychiatrist at [...] PFTs Assessment & Plan (10/08/2020 10:46 AM COTTON DISPATCHER): Much improved Assessment & Plan (09/10/2020 10:03 AM COTTON DISPATCHER): Mainly with exertion and will refer to [...] disease Assessment & Plan (10/08/2020 10:45 AM COTTON DISPATCHER): Much improved Assessment & Plan (09/10/2020 9:58 AM COTTON DISPATCHER): Persisting cough and will refer to Pulmonary for Rash 09/10/2020 Assessment & Plan (10/08/2020 10:45 AM COTTON DISPATCHER): Much improved Assessment & Plan (09/10/2020 10:02 AM COTTON DISPATCHER): There is a dry Pash of eczematoid type rash on his back that is different than psoriasis he has other areas. We will give him some topical hydrocortisone cream but not to use longer than 2 weeks as risk of atrophy and tolerance. Nasal polyp 09/10/2020 Assessment & Plan (09/10/2020 10:07 AM COTTON DISPATCHER): ENT referral Anemia 09/09/2020 Assessment & Plan (09/09/2020 1:03 PM COTTON DISPATCHER): Needs iron studies and methylmalonic acid level. [...] months. Assessment & Plan (08/08/2024 11:33 AM COTTON DISPATCHER): A1c today. Is improved at 7.0. Continue [...] controlled. Assessment & Plan (09/11/2022 3:47 PM COTTON DISPATCHER): A1C TODAY.BMI Follow-up includes: nutrition counseling and [...] weekly Assessment & Plan (09/16/2021 9:43 AM COTTON DISPATCHER): A1c today. Diabetes needing better control. No hypoglycemic symptoms. Metformin, Jardiance, and glipizide daily. No significant improvement and will add Trulicity 0.75 mg weekly Assessment & Plan (08/30/2021 7:25 AM COTTON DISPATCHER): A1c today. Assessment & Plan (06/17/2021 10:38 [...] today. Assessment & Plan (10/08/2020 10:42 AM COTTON DISPATCHER): Check fasting blood sugar today. Result is 415 no he has had better sugars at home. No hypoglycemic symptoms will increase Jardiance to 25 mg daily as he has had no side effects. Assessment & Plan (09/10/2020 9:58 AM COTTON DISPATCHER): Needs better control. Medication options discussed. Risk [...] controlled. Assessment & Plan (10/15/2023 11:36 AM COTTON DISPATCHER): Continue trazodone at same dosage. Well controlled. Assessment & Plan (06/23/2023 2:04 PM CDT): Continue trazodone same dosage. Well controlled. Assessment & Plan (01/15/2023 1:59 PM CDT): Continue trazodone at same dosage. Well controlled. Assessment & Plan (09/11/2022 3:44 PM COTTON DISPATCHER): Continue trazodone Assessment & Plan (05/02/2022 11:04 AM CDT): Continue trazodone at same dosage. Well controlled. Assessment & Plan (12/13/2021 9:57 AM CDT): Continue trazodone at same dosage. Well controlled. Assessment & Plan (08/30/2021 7:26 AM COTTON DISPATCHER): Continue trazodone at same dosage. Well controlled. Assessment & Plan (06/11/2021 1:30 PM CDT): Continue trazodone at same dosage. Well controlled. Assessment & Plan (02/08/2021 10:36 AM CDT): Continue trazodone at same dosage. Well controlled. Assessment & Plan (10/08/2020 10:31 AM COTTON DISPATCHER): Improved. Continue trazodone 100 mg Assessment & Plan (09/10/2020 10:00 AM COTTON DISPATCHER): Increase trazodone to 100 mg needs better [...] controlled. Assessment & Plan (08/05/2024 2:13 PM COTTON DISPATCHER): Continue Lexapro at same dosage. Well controlled. Assessment & Plan (05/01/2024 12:21 PM CDT): Continue Lexapro at same dosage. Well controlled. Assessment & Plan (01/07/2024 4:04 PM CDT): Continue Lexapro at same dosage. Well controlled. Assessment & Plan (10/15/2023 11:35 AM COTTON DISPATCHER): Continue Lexapro at same dosage. Well controlled. Assessment & Plan (06/23/2023 2:07 PM CDT): Continue Lexapro at same dosage. Well controlled. Assessment & Plan (01/15/2023 2:00 PM CDT): Continue Lexapro at same dosage. Well controlled. Assessment & Plan (09/11/2022 3:44 PM COTTON DISPATCHER): Continue Lexapro at same dosage. Well controlled. Assessment & Plan (05/02/2022 11:00 AM CDT): Continue Lexapro at same dosage. Well controlled. Assessment & Plan (12/13/2021 9:57 AM CDT): Continue Lexapro at same dosage. Well controlled. Assessment & Plan (08/30/2021 7:26 AM COTTON DISPATCHER): Continue Lexapro at same dosage. Well controlled. Assessment & Plan (06/11/2021 1:30 PM CDT): Continue Lexapro at same dosage. Well controlled. Assessment & Plan (02/08/2021 10:33 AM CDT): Continue Lexapro at same dosage. Well controlled. Assessment & Plan (11/09/2020 1:42 PM CDT): Continue Lexapro at same dosage. Well controlled. Assessment & Plan (09/09/2020 1:01 PM COTTON DISPATCHER): Continue medication at same dosage. Well controlled. Assessment & Plan (06/08/2020 10:31 AM CDT): Continue medication at same dosage. Well controlled. Resolved Problems Problem Noted Date Diagnosed Date Resolved Date Memory loss 10/08/2020 10/08/2020 BMI 30.0-30.9,adult 06/11/2020 12/25/19 Assessment & Plan (06/11/2020 11:00 AM CDT): BMI Follow-up includes: nutrition counseling and exercise counseling. Left lower quadrant pain 06/08/2020 Assessment & Plan (06/11/2020 11:14 AM CDT): Still left lower quadrant pain but better. Has appointment with GI in the next few days. Previous history of colon resection because of diverticulitis Encounters Date Type Department Care Team Description 05/23/2025 Orders Only [facility] [address] [place] [address] Nathan Martinez MD Mixed hyperlipidemia (Primary Dx); Controlled type 2 diabetes mellitus without complication, without long-term current use of insulin; Alcohol abuse; Over weight; Anemia, unspecified type; Screening PSA (prostate specific antigen); High risk medication use 03/13/2025 Orders Only [facility] [address] [place] [id number] Scanning, Provider from Last 3 Months Immunizations [...] TD Preservative Free 11/28/2022 Td, adsorbed 05/03/2008,12/18/1997 Tdap 08/24/2011 Typhoid H-P SQ/ID 05/24/2001 Typhoid Inactivated 04/15/2010,05/03/2008,2003 Yellow Fever 08/06/2004,08/06/2001 Surgical History Surgery Date Site/Laterality Comments APPENDECTOMY CHOLECYSTECTOMY COLON SURGERY WRIST FRACTURE SURGERY NASAL SEPTUM SURGERY 11/07/2020 Dr. Yousif Weston SEPTOPLASTY 11/07/2020 NASAL TURBINATE REDUCTION 11/07/2020 HERNIA REPAIR 2016 Medical History Medical History Date Comments Diabetes mellitus Diverticulitis Colitis Insomnia Depression Ankle fracture, right [...] drink = 0.6 oz pur e alcohol) [facility] Utilities Answer Date Recorded In the past 12 months has [employer] electric, gas, oil, or water company threatened [...] How often do you attend chur or sikhism services? Never 10/13/2024 Do you [...] 02/12/2021 02/13/2020, 01/12/2015 Covid-19 Vaccine (3 - 2024-2 6 season) 2025 05/12/2021, 04/01/2021 Influenza Vaccine (#1) 2025 4, 05/24/2013, 05/24/2012, Additional history exists Hemoglobin A1C 05/17/2025 11/14/2024, 07/24, 05/02/2024, Additional history exists eGFR 10/12/2025 10/12/2024, 09/24, 09/02/2021, Additional history exists Albumin Creatinine Ratio, Urine 01/20/2026 01/20/2025, 05/05/2022, 06/17/2021 Depression Screening 02/20/2026 02/20/2025, 01/20/2025, 12/19/2024, Additional history exists Foot Exam 05/26/2026 05/26/2025, 10/23, 08/08/2024, Additional history exists Colon Cancer Screening-Colonoscopy 05/09/20292023, 11/12/2020 DTaP/Tdap/Td Vaccine (3 - Td or Tdap) 11/28/2032 11/28/2022, 08/24/2011, 05/03/2008, Additional history exists Hepatitis B Screening Completed 05/03/2008 Procedures Procedure Name Priority Date/Time Associated Diagnosis Comments SCAN - RADIOLOGY/IMAGING 03/13/2025 ALBUMIN CREATININE RATIO, URINE Routine 01/20/2025 11:16 AM CDT Type 2 diabetes mellitus with hyperglycemia, without long-term current use of insulin (HCC) POCT HEMOGLOBIN A1C Routine 11/14/2024 1 1:39 AM CDT Controlled type 2 diabetes mellitus without complication, without long-term current use of insulin (HCC) EGFR Routine 10/12/2024 5:05 AM COTTON DISPATCHER COLONOSCOPY Routine 05/09/2024 7:50 AM CDT from Last 3 Months or Most Recently Relevant to Health Maintenance Results * SCAN - RADIOLOGY/IMAGING (03/13/2025) Anatomical Region Laterality Modality Other us Provider Scanning Edited Result - Final * Albumin Creatinine Ratio, Urine (01/20/2025 11:16 [...] LAB URINE ORDERABLES Final Result [facility] [address] [place] [id number] * (ABNORMAL) POCT hemoglobin A1c (11/14/2024 11:39 AM CDT) Hemoglobin A1C, POC 7.4 4.0 - 5.6 % Blood 11/14/2024 11:3 9 AM CDT us Nathan Martinez MD POINT OF CARE TEST ORDERAB LES Final Result * eGFR (10/12/2024 5:05 AM COTTON DISPATCHER) eGFR 89 >=60 mL/min/1. 73 m2 Comment: [...] reviewed 2021. Testing performed by: [facility], [address] [place] [address]., [id number] Blood 10/12/2024 5:05 AM COTTON DISPATCHER 10/12/2024 5:34 AM COTTON DISPATCHER us Baldomero Sung MD LAB BLOOD ORDERABLES Final Result [facility] [address] [facility] Department [place] [address] * (ABNORMAL) Colonoscopy (05/09/2024 7:50 AM CDT) Anatomical Region Laterality Modality Other us Historical Provider ENDOSCOPY PROCEDURES Marilee l Result from Last 3 Months or Most Recently Relevant to Health Maintenance Insurance [id number] [facility] CLAIMS [facility] CLAIMS Advance Directives For more information, please contact: [phone] * Full Code (Latest Code Status on File) Date Activated Date Inactivated Comments 10/12/2024 2:05 AM 10/15/2024 5:49 PM Care Teams Cake Batter Mixer Relationship Specialty Start Date End Date Nathan Martinez MD PCP - General Family Practice 09/10/20 Monique Garcia MD Referring Physician Gastroenterology 06/11/20 Monique Garcia MD Referring Physician Gastroenterology 06/11/20
--- OUTSIDE RECORDS SUMMARY | 2025-06-09 14:14 | XMS_ITS | Clinical Summary ---
Author Organization [facility] Address [address] [place] [address] Care Team Providers Care Intake Coordinator Name Role Phone Unavailable Primary Care Provider Unavailabl e Source Comments [facility],non-owned Affiliates and Associated Physician Practices is amultiple site organization consisting of ambulatory clinics and hospital sitesin [place], [place], [place] and [place]. This disclosure is being madepursuant to the Care Everywhere program and may not contain all information available regarding this patient. Last updated 18.[facility] Allergies Active Allergy Reactions Criticality Noted Date [...] by mouth at bedtime Active HYDROcodone-acet aminophen ([place]) 5-325 MG tabletIndication s:Right groin pain Take [...] of 2) 2019 LIPID TESTING 01/13/2022 01/13/2017 DEPRESSION SCREENING 08/24/2024 COVID-19 VACCINE (3 - 2024- season) 2025 05/12/2021, 04/01/2021 INFLUENZA VACCINE (#1) 2025 4, 05/24/2013, 05/24/2012, [...] patient's age to complete this topic Insurance [facility] [place] [address] Advance Directives * Full Code (Latest Code Status on File) Date Activated Date Inactivated Comments 01/02/2025 4:40 AM 01/04/2025 5:47 PM * Full Code Date Activated Date Inactivated Comments 01/10/2015 10:22 PM 01/12/2015 5:26 PM
--- OUTSIDE RECORDS SUMMARY | 2025-06-09 14:14 | XMS_ITS ---
Author Name Interface, [id number] lity Address [address] [place] [address] [facility] Address [address] [place] [address] Allergies and Adverse Reactions Medication/Group Name Reaction [...] Frequency Instructions Start Date End Date Status Fill Status Indication 06/27 Trazodo ne Oral orally 1.0 tablet daily quantity sufficient for 30 days; 2 refills active 06/27 escital opram Oral Tablet orally 1.0 tablet daily quantity sufficient for 30 days; 3 refills active 06/27 Metform in Oral orally 1.0 tablet 2 times per day quantity sufficient for 30 days; 3 refills active 06/27 Hydroco done-Ac etamino phen Oral 7.5 mg-325 mg active 06/27 meloxic am 15 MG Oral Tablet orally 1.0 tablet daily 2018 active Testicular pain Problems Diagnosis Status Date of Diagnosis Resolution [...]
--- OUTSIDE RECORDS SUMMARY | 2025-06-09 14:14 | XMS_ITS | CCD ---
Author Name Interface, [id number] lity Address [address] [place] [address] [facility] [place] Address [address] [place] [address] Care Team Providers Care Consulting Business Developer Name Role Phone Darien GUNN, Mata James le Allergies and Adverse Reactions Medication/Group Name Reaction Severity Date gabapentin 06/27/2019 Toradol 06/27/2019 Reason for Visit New Male Medications Date Name Route Dose Frequency Instructions Start Date End Date Status Fill Status Indication 06/27 Metform in Oral orally 1.0 tablet 2 times per day quantity sufficient for 30 days; 3 refills active 06/27 Trazodo ne Oral orally 1.0 tablet daily quantity sufficient for 30 days; 2 refills active 06/27 Hydroco done-Ac etamino phen Oral 7.5 mg-325 mg active 06/27 escital opram Oral Tablet orally 1.0 tablet daily quantity sufficient for 30 days; 3 refills active Problems Diagnosis Status Date of Diagnosis Resolution Date Sleep apnea Active Diabetes mellitus type II Active Depression Active GERD Active Stomach ulcer Active Anxiety Active Testicular pain Active Social History Date Name Value 06/13/2019 Sex Male
[2025-06-09 14:36] VITALS: BP 132/86; PULSE 87; RESP 16; TEMP 36.5; O2SAT 97
== END 2025-06-09 17:06 | disposition left against medical advice (07) ==
LOC: ANHED 17:05
PROVIDERS: PCP Family Medicine
DX: R10.32 Left lower quadrant pain (principal)
CPT/HCPCS: 99199

== ENCOUNTER 2025-07-29 06:12 | Emergency (ER) | payer OTHER, SELFPAY ==
--- NOTE | ~2025-07-29 | CT_ITS ---
EXAMINATION: CT abdomen pelvis w con DATE: 07/29/2025 08:26 INDICATION: Constipation. TECHNIQUE: Computed tomography (CT) of the abdomen and pelvis was performed with 100 mL Omnipaque 350 intravenous contrast. Automated exposure control and iterative reconstruction technique were employed. The dose-length product was 760.51 mGy-cm. COMPARISON: CT abdomen and pelvis 03/13/2025 FINDINGS: The visualized portions of the lung bases demonstrate mild atelectasis. No pleural effusion. The heart size is normal. There are coronary artery calcifications. No pericardial effusion. There is diffuse hepatic steatosis. The spleen is normal. The changes of cholecystectomy. The pancreas, adrenal glands, and kidneys are normal. There is an anastomosis in the sigmoid colon. There are no dilated loops of bowel. The changes of appendectomy. There are no pathologically enlarged lymph nodes. There are umbilical and supraumbilical hernias containing fat. There is no free intraperitoneal fluid. T here is mild lumbar spondylosis and moderate thoracic spondylosis. IMPRESSION: 1. Umbilical and supraumbilical hernias containing fat. 2. Diffuse hepatic steatosis. Reviewed, dictated and finalized at location E. NT CARE NURSE PRACTITIONER
[2025-07-29 06:16] VITALS: BP 155/91; PULSE 99; RESP 18; TEMP 36.6; O2SAT 99
[2025-07-29 06:56] LABS: Hematocrit 38.9 % (42.0-52.0); Hemoglobin 13.3 g/dL (14.0-18.0); Immature Granulocyte Percent A 0.2 % (0-0.5); Lymphocytes Absolute Auto 2.29 K/mm3 (0.9-3.2); Mean Corpuscular HGB Conc 34.2 g/dl (32-36); Mean Corpuscular Hemoglobin 26.8 pg (26-34); Mean Corpuscular Volume 78.3 fl (80-100); Nucleated Red Blood Cells Absolute Auto 0.000 K/mm3 (0.0-0.012); Nucleated Red Blood Cells Perc 0.0 % (0.0-0.2); Platelet Count Result 240 k/mm3 (150-375); Red Blood Count 4.97 M/mm3 (4.6-6.20); White Blood Count 5.5 K/mm3 (4.5-10.0)
--- NOTE | 2025-07-29 07:15 | PC.NURSE ---
Assumed care of pt. Pt resting.
[2025-07-29 07:16] LABS: Alanine Aminotransferase 44 U/L (6-50); Albumin Level 4.2 g/dL (3.5-5.1); Alkaline Phosphatase 50 U/L (38-126); Anion Gap 9 mmol/L (4-12); Aspartate Amino Transferase 34 U/L (17-59); Bilirubin,Total 0.4 mg/dL (0.2-1.3); Blood Urea Nitrogen 8 mg/dL (9-20); Calcium 8.7 mg/dL (8.4-10.2); Carbon Dioxide 21 mmol/L (22-30); Chloride 103 mmol/L (98-107); Estimated CRCL calculation 91 ml/min; Estimated Glomerular Filt Rate > 60; Glucose 261 mg/dL (65-110); Lipase 346 U/L (23-300); Potassium 3.4 mmol/L (3.4-5.0); Sodium 133 mmol/L (137-145); Total Protein 7.2 g/dL (6.3-8.2)
--- NOTE | 2025-07-29 07:16 | ED_ITS ---
HPI - General Adult General Chief complaint: Abdominal Pain Stated complaint: Abd pain, nausea, hx SBO Time Seen by Provider: 07/29/25 06:57 History of Present Illness HPI narrative: 55-year-old male present to the emergency department for evaluation of constipation and abdominal pain with associated nausea and vomiting that has been ongoing for the past 3 days. Patient does report a prior surgical history including cholecystectomy, sigmoid diverticulitis, appendectomy and patient has had multiple small-bowel obstructions. Patient suspects that is what is going on now. Patient has not had a bowel movement for the last 4 days. Patient is uncomfortable appearing at time of evaluation. Related Data Home Medications ?Medication ?Instructions ?Recorded ?Confirmed ?Last Taken ?Type escitalopram oxalate 20 mg tablet 20 mg PO DAILY 07/1804/10/25 08/25/24 History modafinil 100 mg tablet 100 mg PO DAILY PRN Systemic Signs 07/18/21 03/13/25 08/18/24 History And Symptoms trazodone 100 mg tablet 100 mg PO HS 07/18/2108/25/24 History famotidine 20 mg tablet (Pepcid AC) 20 mg PO DAILY Ind igestion 02/02/23 03/13/25 Unknown History semaglutide 1 mg/dose (4 mg/3 mL) 1 mg subcut WEEKLY 0 08/27/24 04/10/25 03/06/25 History subcutaneous pen injector (Ozempic) empagliflozin 10 mg tablet 10 mg PO DAILY 03/13/25 Unknown History (Jardiance) polyethylene glycol 3350 17 17 g PO DAILY PRN constipa tion 03/13/25 03/13/25 Unknown History gram/dose oral powder Allergies Allergy/AdvReac Type Severity Reaction Status Date / Time ketorolac (From Toradol) Allergy Hives Verified 07/29/25 06:18 gabapentin AdvReac Anxiety Verified 07/29/25 06:18 promethazine (From Phenergan) AdvReac Anxiety Verified 07/29/25 06:18 zolpidem (From Ambien) AdvReac Other Verified 07/29/25 06:18 Review of Systems 2 Review of Systems: All systems reviewed & are unremarkable except as noted in HPI and below PMFSH Past Medical History Medical History Posttraumatic stress disorder Type 2 diabetes mellitus History of small bowel obstruction Depression Diverticulitis Surgical History Surgical History History of left inguinal hernia repair x2 History of orthopedic surgery Right ankle and hand surgery. History of laparoscopic appendectomy Status post laparoscopic Ludmila fundoplication History of laparoscopic cholecystectomy History of exploratory laparotomy With adhesiolysis for small bowel obstruction in [place] around 2017 History of colon resection Open sigmoid colon resection for diverticulitis in [place] around 2014 Family History Family History Father Heart disease Grandparent Lung cancer Social History Social History Social History: Surrogate medical decision maker: Annelise Garcia, significant other. Code status: Full code. Smoking status: Never smoker Alcohol intake: current Drinks per week: 1 Substance use: never Substance use type: does not use Lack of Transportation: No Lack of Food: Never True Current Housing: I Have Housing Concerned About Future Housing: No Difficulty Paying Gas/Electric Bills: No Difficulty Paying for Meds: No Currently Unemployed: No Education: High School Diploma/GED Difficulty w/ Childcare or Family Care: No Additional living arrangements comments: Lives in [place] with significant other. He has 1 son. Additional occupation/education comments: Served in the [employer]. 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 Spiritual care concerns: No Exam 2 Narrative: APPEARANCE: Uncomfortable appearing HEAD: normocephalic, atraumatic. EYES: PERRLA/EOMI, conjunctivae clear. NOSE: Normal no drainage EARS:TMS clear with good light reflex. THROAT: Pharynx clear, no exudate. NECK: Supple. No adenopathy, no masses. RESPIRATORY: Airway patent, respirations nonlabored. Clear to auscultation bilaterally, no rales, rhonchi, wheezing. CARDIOVASCULAR: Regular rate and rhythm without murmurs rubs or gallops. ABDOMINAL: diffuse abdominal tenderness to palpation MUSCULOSKELETAL: Moves all extremities. Strength/ROM intact, No edema, No calf tenderness. NEURO: Alert. Cranial nerves II through XII intact. Good gait. Good coordination SKIN: Warm, dry. Normal Color Course Vital Signs Vital signs: Vital Signs Temperature 97.8 F 07/29/25 06:16 Pulse Rate 99 07/29/25 06:16 Respiratory Rate 18 07/29/25 06:16 Blood Pressure 155/91 H 07/29/25 06:16 Pulse Oximetry 99 07/29/25 06:16 Oxygen Delivery Room Air 07/29/25 06:16 Temperature 97.8 F 07/29/25 06:16 Pulse Rate 68 07/29/25 08:08 Respiratory Rate 20 07/29/25 08:08 Blood Pressure 139/82 07/29/25 08:08 Pulse Oximetry 98 07/29/25 08:08 Oxygen Delivery Room Air 07/29/25 06:16 [facility] Narrative Medical decision making narrative: 55-year-old male present to the emergency department for evaluation for nausea vomiting and abdominal pain. Patient was initially concerned he was having a small bowel obstruction. Patient is currently afebrile with no leukocytosis hemoglobin 13.3. No significant acute abnormalities on his CMP other than elevated blood glucose 261. Patient states he is diabetic. Patient did have a mildly elevated lipase of 346. UA was negative for infection. CT scan shows no acute abnormality including no evidence of diverticulitis colitis or obstruction. Patient was treated with 2 L of lactated Ringer's, IV fluids and medications for pain control. On re-evaluation patient states he does feel improved. Patient was updated the results of his workup. Patient was advised to follow a clear liquid diet for the next few days. Patient was also educated on reasons to return to the emergency department. All questions concerns were addressed patient was well-appearing at time of discharge. Differential Diagnosis Differential Diagnosis: Colitis, diverticulitis, small-bowel obstruction, constipation Lab Data [facility] Lab Attestation statement: I personally reviewed the patient's lab results. 07/29/25 06:49 07/29/25 06:49 Labs: Lab Results 07/29/25 07/29/25 Range/Units 06:49 07:32 WBC 5.5 (4.5-10.0) K/mm3 RBC 4.97 (4.6-6.20) M/mm3 Hgb 13.3 L (14.0-18.0) g/dL Hct 38.9 L (42.0-52.0) % MCV 78.3 L (80-100) fl MCH 26.8 (26-34) pg MCHC 34.2 (32-36) g/dl RDW 13.6 (11.5-14.5) % Plt Count 240 (150-375) k/mm3 MPV 9.0 (7.4-10.4) fl Immature Gran % (Auto) 0.2 (0-0.5) % Neut % (Auto) 49.2 (45.5-73.1) % Lymph % (Auto) 41.3 (18.3-44.2) % [place] % (Auto) 7.0 (2.6-8.5) % Eos % (Auto) 1.6 (0-4.4) % Baso % (Auto) 0.7 (0.2-1.2) % Lymph # (Auto) 2.29 (0.9-3.2) K/mm3 [place] # (Auto) 0.4 (0.1-0.6) K/mm3 Eos # (Auto) 0.1 (0-0.3) K/mm3 Baso # (Auto) 0.0 (0.0-0.1) K/mm3 Abs Immat Gran (auto) 0.01 (0.00-0.031) K/mm3 Absolute Neuts (auto) 2.7 (1.3-6.7) K/mm3 Absolute Nucleated RBC 0.000 (0.0-0.012) K/mm3 Nucleated RBC % 0.0 (0.0-0.2) % Sodium 133 L (137-145) mmol/L Potassium 3.4 (3.4-5.0) mmol/L Chloride 103 (98-107) mmol/L Carbon Dioxide 21 L (22-30) mmol/L Anion Gap 9 (4-12) mmol/L BUN 8 L (9-20) mg/dL Creatinine 0.84 (0.7-1.3) mg/dL Estim Creat Clear Calc 91 ml/min Estimated GFR > 60 (59 - ) Glucose 261 H (65-110) mg/dL Calcium 8.7 (8.4-10.2) mg/dL Total Bilirubin 0.4 (0.2-1.3) mg/dL AST 34 (17-59) U/L ALT 44 (6-50) U/L Alkaline Phosphatase 50 (38-126) U/L Total Protein 7.2 (6.3-8.2) g/dL Albumin 4.2 (3.5-5.1) g/dL Lipase 346 H (23-300) U/L Urine Color Yellow (Yellow) Urine Appearance Clear (Clear) Urine pH 5.5 (5.0-9.0) Ur Specific [place] 1.024 (1.001-1.035) Urine Protein Negative (Negative) mg/dL Urine Glucose (UA) 3+ H (Negative) mg/dL Urine Ketones Negative (Negative) mg/dL Ur Blood (Man) Negative (Negative) Urine Nitrate Negative (Negative) Urine Bilirubin Negative (Negative) Urine Urobilinogen 0.2 (<2.0) mg/dL Leukocyte Esterase Rfl Negative (Negative) DESTINEY/UL Imaging Data Radiologist's impression: ITS Impressions Abdomen/Pelvis CT 07/29/25 08:33 IMPRESSION: 1. Umbilical and supraumbilical hernias containing fat. 2. Diffuse hepatic steatosis. Discharge Plan Discharge Clinical Impression: Abdominal pain Patient Disposition: Home Condition: Stable Instructions: Antibiotic Form, Clear Liquid Diet (ED), Abdominal Pain (ED) Additional Instructions: Clear liquid diet for the next 1 to 3 days. Zofran as needed for nausea control. Tylenol and ibuprofen for pain control. Have close follow-up with your primary care physician. If you have any worsening symptoms then please call or return to the emergency department. Patient Language: Guinean Prescriptions: New ondansetron 4 mg tablet,disintegrating 4 mg PO Q8H PRN (Reason: nausea and vomiting) Qty: 14 0RF No Action trazodone 100 mg tablet 100 mg PO HS modafinil 100 mg tablet 100 mg PO DAILY PRN (Reason: Systemic Signs And Symptoms) Rx Instructions: Takes for ADD escitalopram oxalate 20 mg tablet 20 mg PO DAILY Ozempic 1 mg/dose (4 mg/3 mL) pen injector 1 mg subcut WEEKLY ondansetron 4 mg tablet,disintegrating 4 mg PO Q4H 0 Days Qty: 10 0RF Rx Instructions: give 1st dose 30min before emetogenic chemo dicyclomine 20 mg tablet 20 mg PO QID Qty: 20 0RF famotidine [Pepcid AC] 20 mg tablet 20 mg PO DAILY docusate sodium 100 mg Capsule 100 mg PO Q12HR PRN (Reason: constipation) Qty: 60 0RF Jardiance 10 mg tablet 10 mg PO DAILY polyethylene glycol 3350 17 gram/dose powder 17 g PO DAILY PRN (Reason: constipation) Follow-up/Referrals: Juan,Nathan Ramos MD [Primary Care Provider, Internal Medicine]
[2025-07-29] MEDS: ONDANSETRON INJ 4 MG/2 ML VIAL IV PUSH (07:25)
[2025-07-29] MEDS: HYDROmorphone HCL INJ (*CRX) 1 MG/ML SYR IV PUSH (07:26)
[2025-07-29] MEDS: LACTATED RINGERS 1,000 ML 999 ML IV CONT ×2 (07:29→08:07)
[2025-07-29 07:33] VITALS: BP 138/95; PULSE 84; RESP 20; O2SAT 97
[2025-07-29 07:41] LABS: Add Urine Microscopic? NO; Appearance Urine Clear (Clear); Glucose Urine UA 3+ mg/dL (Negative); Leukocyte Esterase Ur Negative LEU/UL (Negative); Nitrate Urine Negative (Negative); Specific Grav Ur 1.024 (1.001-1.035)
[2025-07-29 08:08] VITALS: BP 139/82; PULSE 68; RESP 20; O2SAT 98
== END 2025-07-29 09:07 | disposition home or self-care (01) ==
PROVIDERS: Student in an Organized Health Care Education/Training Program; Emergency Provider Emergency Medicine; PCP Family Medicine
DX: R10.9 Unspecified abdominal pain (principal); E11.9 Type 2 diabetes mellitus without complications; F43.10 Post-traumatic stress disorder, unspecified; F32.A Depression, unspecified; Z90.49 Acquired absence of other specified parts of digestive tract; K76.0 Fatty (change of) liver, not elsewhere classified; K42.9 Umbilical hernia without obstruction or gangrene; Z79.84 Long term (current) use of oral hypoglycemic drugs; Z79.85 Long-term (current) use of injectable non-insulin antidiabetic drugs; Z79.899 Other long term (current) drug therapy
CPT/HCPCS: 36415; 74177; 80053; 81003; 83690; 85025; 96361; 96374; 96375; 99284; J1171; J2405; J7120; Q9967

== ENCOUNTER 2025-08-01 23:42 | Emergency (ER) | payer OTHER, SELFPAY ==
--- NOTE | ~2025-08-01 | CT_ITS ---
EXAMINATION: CT abdomen pelvis w con DATE: 08/02/2025 03:09 INDICATION: Abdominal pain. TECHNIQUE: Computed tomography (CT) of the abdomen and pelvis was performed with 100 mL Omnipaque 350 intravenous contrast. Automated exposure control and iterative reconstruction technique were employed. The dose-length product was 825.77 mGy-cm. COMPARISON: CT abdomen and pelvis 07/29/2025 FINDINGS: The visualized portions of the lung bases demonstrate mild atelectasis. No pleural effusion. The heart size is normal. There are coronary artery calcifications. No pericardial effusion. There is diffuse hepatic steatosis. There are changes of cholecystectomy. The spleen, pancreas, adrenal glands, and kidneys are normal. There are no dilated loops of bowel. There are changes of appendectomy. There are no pathologically enlarged lymph nodes. There is no ascites. There is a periumbilical hernia containing fat. There is mild lumbar spondylosis and moderate thoracic spondylosis. IMPRESSION: 1. Periumbilical hernia containing fat. 2. Diffuse hepatic steatosis. Reviewed, dictated and finalized at location E. ING AID SPECIALIST
--- OUTSIDE RECORDS SUMMARY | 2025-08-01 23:46 | XMS_ITS | Clinical Summary ---
Author Organization [facility] Address [address] [place] [address] Care Team Providers Care [employer] Slaker Name Role Phone Unavailable Primary Care Provider Unavailabl e Source Comments [facility],non-owned Affiliates and Associated Physician Practices is amultiple site organization consisting of ambulatory clinics and hospital sitesin [place], [place], [place] and [place]. This disclosure is being madepursuant to the Care Everywhere program and may not contain all information available regarding this patient. Last updated 18.[facility] Allergies Active Allergy Reactions Criticality Noted Date [...] by mouth at bedtime Active HYDROcodone-acet aminophen ([place]) 5-325 MG tabletIndication s:Right groin pain Take [...] 01/12/2015 ZOSTER VACCINE (1 of 2) 2019 DEPRESSION SCREENING 08/24/2024 COVID-19 VACCINE (3 - [...] patient's age to complete this topic Insurance [employer] [facility] ADMINISTRATION Advance Directives * Full Code (Latest Code Status on File) Date Activated Date Inactivated Comments 01/02/2025 4:40 AM 01/04/2025 5:47 PM * Full Code Date Activated Date Inactivated Comments 01/10/2015 10:22 PM 01/12/2015 5:26 PM
--- OUTSIDE RECORDS SUMMARY | 2025-08-01 23:47 | XMS_ITS | Clinical Summary ---
Author Organization 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 Avoid face and groin. 90 g 1 2 Active hyoscyamine ER (LEVBID) 0.375 mg 12 hr tabletIndicatio ns:diarrhea Take 1 tablet (0.375 mg total) by mouth every 12 (twelve) hours as needed for cramping 180 tablet 1 4 Active linaCLOtide (LINZESS) 290 mcg capsule Take 1 capsule (290 mcg total) by mouth daily 90 capsule [address] (PROTONIX) 40 mg EC tabletIndicatio ns:Treatment of Non-Bleeding Gastric Disorder Take 1 tablet (40 mg total) by mouth daily 30 tablet 11 5 10/16/19 26 Active modafiniL (PROVIGIL) 100 mg tablet Take 1 tablet (100 mg total) by mouth daily 90 tablet [address] (VOLTAREN) 75 mg EC tablet Take 1 tablet (75 mg total) by mouth 2 (two) times a day 60 tablet 11 5 01/21/20 26 Active empagliflozin (JARDIANCE) 10 mg tablet Take 1 tablet (10 mg total) by mouth daily 90 tablet 3 5 Active escitalopram (LEXAPRO) 20 mg tablet Take 1 tablet (20 mg total) by mouth daily 90 tablet 1 5 Active traZODone (DESYREL) 100 mg tablet Take 1 tablet (100 mg total) by mouth nightly 90 tablet 1 5 Active glipiZIDE XL (GLUCOTROL XL) 10 mg 24 hr tabletIndicatio ns:type 2 diabetes mellitus Take 1 tablet (10 mg total) by mouth 2 (two) times a day 180 tablet 3 5 Active semaglutide (OZEMPIC) 0.25 mg or 0.5 mg(2 mg/1.5 mL) pen injector injection Inject 0.25 mg under the skin every 7 days 2 mL 3 5 Active atorvastatin (LIPITOR) 20 mg tablet Take 1 tablet (20 mg total) by mouth daily 90 tablet 1 5 Active omega-3 fatty acids (LOVAZA) 1 gram capsule Take 2 capsules (2 g total) by mouth 2 (two) times a day 360 capsule 1 5 Active HYDROcodone-jarvis taminophen (NORCO) 10-325 mg per tabletIndicatio ns:Pain Take 1 tablet by mouth every 6 (six) hours as needed for pain 120 tablet 5 Active HYDROcodone-jarvis taminophen (NORCO) 10-325 mg per tabletIndicatio ns:Pain Take 1 tablet by mouth every 6 (six) hours as needed for pain 120 tablet 5 07/08/20 25 Discontinu ed(Reorder ) Active Problems Problem Noted Date Diagnosed Date Alcohol abuse 02/20/2025 Assessment & Plan (02/20/2025 11:01 AM CDT): Discussed potential additive toxicity between hydrocodone and alcohol. And can not continue to drink significant alcohol with this medicine. If he continues to do so we can not continue to prescribe the hydrocodone for pain. Lumbar radiculopathy 11/14/2024 Assessment & Plan (06/11/2025 2:57 PM CDT): Continue hydrocodone /diclofenac at same dosage. Well controlled. Assessment & Plan (02/20/2025 11:10 AM CDT): [...] today with results pending. Slight relief with [place] 5 mg. We will increase dosage to [...] him a prescription. Thoracic spine pain 09/25/2023 Assessment & Plan (06/12/2025 11:20 AM CDT): He has been off the hydrocodone for about a month. We will resume hydrocodone. Drug screen. It helps him to function a bit more and cuts down on the pain significantly. Patient is advised that opiates should only be used as needed. They can be habit-forming and may impair judgment even if drowsiness not noticed. Nothing dangerous should be done while taking these medicines such as driving. Discussed other alternatives for pain including NSAIDs, anticholinergic medication , anti seizure medication, behavioral management, physical therapy, physical modalities, and Tylenol. Controlled type 2 diabetes aidan cuadra without [...] mg Assessment & Plan (10/15/2023 11:29 AM MANAGER RAIL): A1c today . Continue glipizide/Trulicity at same [...] 09/12/2022 Assessment & Plan (09/12/2022 9:35 AM MANAGER RAIL): Some tinnitus for 2 months. Possible hearing loss. Ear canals normal today drums normal ENT refer Lipidemia 09/11/2022 Assessment & Plan (06/11/2025 2:56 PM CDT): Continue atorvastatin at same dosage. Well controlled. Assessment & Plan (02/20/2025 11:05 AM CDT): Continue atorvastatin at same dosage. Well controlled. Needs repeat lipids Assessment & Plan (11/11/2024 2:33 PM CDT): Continue atorvastatin but needs repeat lipids Assessment & Plan (08/05/2024 2:15 PM MANAGER RAIL): Continue atorvastatin same dosage. Needs repeat lipid Assessment & Plan (05/01/2024 12:22 PM CDT): Needs repeat lipids. Continue atorvastatin at same dose. Assessment & Plan (01/07/2024 4:08 PM CDT): Continue atorvastatin same dosage but needs repeat lipids. Assessment & Plan (10/15/2023 11:35 AM MANAGER RAIL): Continue atorvastatin at same dosage. Well controlled. Assessment & Plan (06/23/2023 2:03 PM CDT): Continue Lipitor same dosage but needs repeat lipids. Assessment & Plan (01/15/2023 1:58 PM CDT): Continue atorvastatin same dosage but needs repeat lipids Assessment & Plan (09/11/2022 3:45 PM MANAGER RAIL): Continue atorvastatin same dosage Acute left ankle [...] counseling. Assessment & Plan (10/15/2023 12:07 PM MANAGER RAIL): Diabetic foot exam: Left monofilament exam: normal [...] surgeon Assessment & Plan (09/02/2021 8:59 AM MANAGER RAIL): Pain most recently is in the right [...] 09/02/2021 Assessment & Plan (09/02/2021 9:00 AM MANAGER RAIL): Refer to Dermatology Chronic abdominal pain 08/30/2021 Assessment & Plan (05/02/2024 3:02 PM CDT): History of multiple adhesions and several times he has had to had bowel obstruction treated. Constant pain. Worse about 30 minutes after eating. Referral to GI. Left lower quadrant Assessment & Plan (09/16/2021 9:44 AM MANAGER RAIL): Try peppermint oil pill daily. Discontinue Levbid. Refer to GI. Needs colonoscopy. Assessment & Plan (09/02/2021 8:59 AM MANAGER RAIL): Previous pain is similar to this pain [...] CDT): Will get chest x-ray and PFTs Attention deficit hyperactiv ity disorder (ADHD), predominantly inattentive type 10/08/2020 Assessment & Plan (06/11/2025 2:58 PM CDT): Takes modafinil off-label. Helps with attention, focus, concentration and task completion and no side effects Assessment & Plan (01/19/2025 11:11 AM CDT): Continue modafinil at same dosage. Well controlled. Assessment & Plan (12/19/2024 11:20 AM CDT): Continue modafinil at same dosage. Well controlled. Assessment & Plan (11/11/2024 2:30 PM CDT): Continue Provigil at same dosage. Well controlled. Assessment & Plan (08/05/2024 2:14 PM MANAGER RAIL): Continue Provigil at same dosage. Well controlled. Return 3 months Assessment & Plan (05/01/2024 12:20 PM CDT): Continue Provigil at same dosage. Well controlled. Return 3 months Assessment & Plan (01/07/2024 4:03 PM CDT): Continue Provigil at same dosage. Well controlled. Assessment & Plan (10/16/2023 1:08 PM MANAGER RAIL): Takes Provigil off-label. Adequate control with medicine. [...] usage. Assessment & Plan (09/13/2021 9:27 AM MANAGER RAIL): Continue modafinil at same dosage. Well controlled. No signs of toxicity and patient understands this is off-label treatment Assessment & Plan (08/30/2021 7:27 AM MANAGER RAIL): Allow modafinil as no evidence of toxicity and evidence of benefit Assessment & Plan (06/11/2021 1:30 PM CDT): Continue Provigil at same dosage. Well controlled. Assessment & Plan (02/08/2021 10:32 AM CDT): Continue modafinil at same dosage. Well controlled. Assessment & Plan (11/09/2020 1:42 PM CDT): Allow modafinil but understands off-label Assessment & Plan (10/08/2020 10:45 AM MANAGER RAIL): Previously diagnosed with this by psychiatrist at [...] PFTs Assessment & Plan (10/08/2020 10:46 AM MANAGER RAIL): Much improved Assessment & Plan (09/10/2020 10:03 AM MANAGER RAIL): Mainly with exertion and will refer to [...] disease Assessment & Plan (10/08/2020 10:45 AM MANAGER RAIL): Much improved Assessment & Plan (09/10/2020 9:58 AM MANAGER RAIL): Persisting cough and will refer to Pulmonary for Rash 09/10/2020 Assessment & Plan (10/08/2020 10:45 AM MANAGER RAIL): Much improved Assessment & Plan (09/10/2020 10:02 AM MANAGER RAIL): There is a dry Pash of eczematoid type rash on his back that is different than psoriasis he has other areas. We will give him some topical hydrocortisone cream but not to use longer than 2 weeks as risk of atrophy and tolerance. Nasal polyp 09/10/2020 Assessment & Plan (09/10/2020 10:07 AM MANAGER RAIL): ENT referral Anemia 09/09/2020 Assessment & Plan (09/09/2020 1:03 PM MANAGER RAIL): Needs iron studies and methylmalonic acid level. Needs to have colonoscopy done. Type 2 diabetes mellitus wit h hyperglycemia, without long-term current use of insulin 06/08/2020 Assessment & Plan (06/12/2025 11:20 AM CDT): A1c is higher. Increase glipizide to b.i.d.. Declines to increase dosage of Jardiance at this time. Has not been taking Ozempic due to cost we will see if we can send it to the [facility] and see if this covered there. Assessment & Plan (02/20/2025 11:14 AM CDT): [...] months. Assessment & Plan (08/08/2024 11:33 AM MANAGER RAIL): A1c today. Is improved at 7.0. Continue [...] controlled. Assessment & Plan (09/11/2022 3:47 PM MANAGER RAIL): A1C TODAY.BMI Follow-up includes: nutrition counseling and [...] weekly Assessment & Plan (09/16/2021 9:43 AM MANAGER RAIL): A1c today. Diabetes needing better control. No hypoglycemic symptoms. Metformin, Jardiance, and glipizide daily. No significant improvement and will add Trulicity 0.75 mg weekly Assessment & Plan (08/30/2021 7:25 AM MANAGER RAIL): A1c today. Assessment & Plan (06/17/2021 10:38 [...] today. Assessment & Plan (10/08/2020 10:42 AM MANAGER RAIL): Check fasting blood sugar today. Result is 415 no he has had better sugars at home. No hypoglycemic symptoms will increase Jardiance to 25 mg daily as he has had no side effects. Assessment & Plan (09/10/2020 9:58 AM MANAGER RAIL): Needs better control. Medication options discussed. Risk and benefits of each option. Will add Jardiance 10 mg and re-evaluate 3 months Assessment & Plan (06/08/2020 10:30 AM CDT): A1c today. Major depression in remission 06/08/2020 Assessment & Plan (06/11/2025 2:59 PM CDT): Continue Lexapro at same dosage. Well controlled. Assessment & Plan (01/19/2025 11:11 AM CDT): Continue Lexapro at same dosage. Well controlled. Assessment & Plan (12/16/2024 1:04 PM CDT): Continue Lexapro at same dosage. Well controlled. Assessment & Plan (11/11/2024 2:31 PM CDT): Continue medication at same dosage. Well controlled. Assessment & Plan (08/05/2024 2:13 PM MANAGER RAIL): Continue Lexapro at same dosage. Well controlled. Assessment & Plan (05/01/2024 12:21 PM CDT): Continue Lexapro at same dosage. Well controlled. Assessment & Plan (01/07/2024 4:04 PM CDT): Continue Lexapro at same dosage. Well controlled. Assessment & Plan (10/15/2023 11:35 AM MANAGER RAIL): Continue Lexapro at same dosage. Well controlled. Assessment & Plan (06/23/2023 2:07 PM CDT): Continue Lexapro at same dosage. Well controlled. Assessment & Plan (01/15/2023 2:00 PM CDT): Continue Lexapro at same dosage. Well controlled. Assessment & Plan (09/11/2022 3:44 PM MANAGER RAIL): Continue Lexapro at same dosage. Well controlled. Assessment & Plan (05/02/2022 11:00 AM CDT): Continue Lexapro at same dosage. Well controlled. Assessment & Plan (12/13/2021 9:57 AM CDT): Continue Lexapro at same dosage. Well controlled. Assessment & Plan (08/30/2021 7:26 AM MANAGER RAIL): Continue Lexapro at same dosage. Well controlled. Assessment & Plan (06/11/2021 1:30 PM CDT): Continue Lexapro at same dosage. Well controlled. Assessment & Plan (02/08/2021 10:33 AM CDT): Continue Lexapro at same dosage. Well controlled. Assessment & Plan (11/09/2020 1:42 PM CDT): Continue Lexapro at same dosage. Well controlled. Assessment & Plan (09/09/2020 1:01 PM MANAGER RAIL): Continue medication at same dosage. Well controlled. Assessment & Plan (06/08/2020 10:31 AM CDT): Continue medication at same dosage. Well controlled. Resolved Problems Problem Noted Date Diagnosed Date Resolved Date Memory loss 10/08/2020 10/08/2020 BMI 30.0-30.9,adult 06/11/2020 12/25/19 24 Assessment & Plan (06/11/2020 11:00 AM CDT): BMI Follow-up includes: nutrition counseling and exercise counseling. Psychophysiologic insomnia 06/08/2020 1 Assessment & Plan (06/11/2025 2:57 PM CDT): Continue trazodone at same dosage. Well controlled. Assessment & Plan (01/19/2025 11:11 AM CDT): Continue trazodone at same dosage. Well controlled. Assessment & Plan (05/01/2024 12:22 PM CDT): Continue trazodone at same dosage. Well controlled. Assessment & Plan (01/07/2024 4:02 PM CDT): Continue trazodone at same dosage. Well controlled. Assessment & Plan (10/15/2023 11:36 AM MANAGER RAIL): Continue trazodone at same dosage. Well controlled. Assessment & Plan (06/23/2023 2:04 PM CDT): Continue trazodone same dosage. Well controlled. Assessment & Plan (01/15/2023 1:59 PM CDT): Continue trazodone at same dosage. Well controlled. Assessment & Plan (09/11/2022 3:44 PM MANAGER RAIL): Continue trazodone Assessment & Plan (05/02/2022 11:04 AM CDT): Continue trazodone at same dosage. Well controlled. Assessment & Plan (12/13/2021 9:57 AM CDT): Continue trazodone at same dosage. Well controlled. Assessment & Plan (08/30/2021 7:26 AM MANAGER RAIL): Continue trazodone at same dosage. Well controlled. Assessment & Plan (06/11/2021 1:30 PM CDT): Continue trazodone at same dosage. Well controlled. Assessment & Plan (02/08/2021 10:36 AM CDT): Continue trazodone at same dosage. Well controlled. Assessment & Plan (10/08/2020 10:31 AM MANAGER RAIL): Improved. Continue trazodone 100 mg Assessment & Plan (09/10/2020 10:00 AM MANAGER RAIL): Increase trazodone to 100 mg needs better control Assessment & Plan (06/08/2020 10:30 AM CDT): Continue medication at same dosage. Well controlled. Left lower quadrant pain 06/08/2020 Assessment & Plan (06/11/2020 11:14 AM CDT): Still left lower quadrant pain but better. Has appointment with GI in the next few days. Previous history of colon resection because of diverticulitis Encounters Date Type Department Care Team Description 06/14/2025 Results Follow-Up [facility] [address] [place] [address] Nathan Martinez MD Lipid panel, Hemoglobin A1c, PSA screen, Additional followed-up results: 5 06/12/2025 11:00 AM CDT Office Visit [facility] [address] [place] [address] Nathan Martinez MD Type 2 diabetes mellitus with hyperglycemia, without long-term current use of insulin (HCC) (Primary Dx); Lumbar radiculopathy; Mixed hyperlipidemia; Psychophysiologic insomnia; Attention deficit hyperactivity disorder (ADHD), predominantly inattentive type; Major depression in remission; Screening PSA (prostate specific antigen); Thoracic spine pain 05/23/2025 Orders Only [facility] [address] [place] [id number] Nathan Martinez MD Mixed hyperlipidemia (Primary Dx); Controlled type 2 diabetes mellitus without complication, without long-term current use of insulin; Alcohol abuse; Over weight; Anemia, unspecified type; Screening PSA (prostate specific antigen); High risk medication use from Last 3 Months Immunizations Immunization Administration Dates Next Due H1N1 Inj 09/03/2009 Hep A / Hep B 05/03/2008 Hep A, Adult 02/13/1998,07/30/1997,02/17/1997 Influenza LAIV (Nasal) 05/14/2011,06/11/2009 Influenza, Split 05/28/2009 Influenza, Trivalent, Preser vative Free, Intramuscular 08/01/2014,05/24/2012 Influenza, Unspecified 06/12/2025(Deferr ed: Patient decision),06/12/2025,05/02/2024(Deferr ed: Patient decision),09/12/2022(Deferred: Patient Refused),06/17/2021(Deferred: Patient Refused),06/11/2020(Deferred: [...] drink = 0.6 oz pur e alcohol) [facility] Utilities Answer Date Recorded In the past 12 months has [employer] electric, gas, oil, or water company threatened [...] often do you attend chur ch or oriental orthodox services? Never 10/13/2024 Do you belong to any clubs o r organizations such as orthodoxy groups, unions, fraternal or athletic groups, or [...] points, staff should administer the PHQ-9) 0 06/12/2025 Hunger Vital Sign Answer Date Recorded Within [...] any time in the past 12 m [facility], were you homeless or living [...] Sign Reading Time Taken Comments Blood Pressure 114/86 06/12/2025 10:41 AM CDT Pulse 84 06/12/2025 10:41 AM CDT Temperature 36.7 C (98 F) 06/12/2025 10:41 AM CDT Respiratory Rate 18 06/12/2025 10:41 AM CDT Oxygen Saturation 96% 06/12/2025 10:41 AM CDT Inhaled Oxygen Concentration - - Weight 93.6 kg (206 lb 6.4 oz) 06/12/2025 10:41 AM CDT Height 180.3 cm (5' 10.98) 06/12/2025 10:41 AM CDT Body Mass Index 28.8 06/12/2025 10:41 AM CDT Plan of Treatment Health Maintenance Due Date Last Done Comments Hepatitis C Screening 1970 Dilated Eye Exam 1969 Regular Well Visit/Exam 18-64 1987 Zoster Vaccine (1 of 2) 2019 Pneumococcal vaccine <65 (2 of 2 - PCV) 02/12/2021 02/13/2020, 01/12/2015 Covid-19 Vaccine (3 - 2024-2 6 season) 2025 05/12/2021, 04/01/2021 Foot Exam 11/14/2025 11/14/2024, 07/24, 10/16/2023, Additional history exists Hemoglobin A1C 12/11/2025 06/12/2025, 05/25, 11/14/2024, Additional history exists Albumin Creatinine Ratio, Urine 01/20/2026 01/20/2025, 05/05/2022, 06/17/2021 Depression Screening 06/12/2026 06/12/2025, 02/20/2025, 01/20/2025, Additional history exists Lipid Panel 06/12/2026 06/12/2025, 01/13/2017 eGFR 06/12/2026 06/12/2025, 09/24, 10/11/2024, Additional history exists Prostate Cancer Screening-PSA 06/12/2027 06/12/2025 Colon Cancer Screening-Colonoscopy 05/09/20292023, 11/12/2020 DTaP/Tdap/Td Vaccine (3 - Td or Tdap) 11/28/2032 11/28/2022, 08/24/2011, 05/03/2008, Additional history exists Hepatitis B Screening Completed 05/03/2008 Influenza Vaccine Completed 06/12/2025, , 05/24/2013, Additional history exists Procedures Procedure Name Priority Date/Time Associated Diagnosis Comments DRUG MONITORING TEMPLATE Routine 06/12/2025 11:29 AM CDT DRUG MONITOR, HEROIN METAB, QN, URINE Routine 06/12/2025 11:29 AM CDT DRUG MONITOR, ALCOHOL METAB, W/CONF, URINE Routine 06/12/2025 11:29 AM CDT DRUG MONITOR, PANEL 1, W/CONF, URINE Routine 06/12/2025 11:29 AM CDT POCT HEMOGLOBIN A1C Routine 06/12/2025 1 0:58 AM CDT Type 2 diabetes mellitus with hyperglycemia, without long-term current use of insulin (HCC) COMPREHENSIVE METABOLIC PANEL Routine 06/12/2025 10:24 AM CDT Mixed hyperlipidemia Controlled type 2 diabetes mellitus without complication, without long-term current use of insulin Alcohol abuse Over weight PSA SCREEN Routine 06/12/2025 10:24 AM CDT Screening PSA (prostate specific antigen) HEMOGLOBIN A1C Routine 06/12/2025 10:24 AM CDT Mixed hyperlipidemia Controlled type 2 diabetes mellitus without complication, without long-term current use of insulin Alcohol abuse Over weight LIPID PANEL Routine 06/12/2025 10:24 AM CDT Mixed hyperlipidemia Controlled type 2 diabetes mellitus without complication, without long-term current use of insulin Alcohol abuse Over weight ALBUMIN CREATININE RATIO, URINE Routine 01/20/2025 11:16 AM CDT Type 2 diabetes mellitus with hyperglycemia, without long-term current use of insulin (HCC) COLONOSCOPY Routine 05/09/2024 7:50 AM CDT from Last 3 Months or Most Recently Relevant to Health Maintenance Results * Drug Monitor, Heroin Metab, QN, Urine (06/12/2025 11:29 AM CDT) 6-Acetylmorphi ne, ur NEGATIVE <10 ng/mL [facility] Heroin Metab Comments [facility] Comment:See LDT Notes 06/12/2025 11:2 9 AM CDT 06/12/2025 11:29 AM CDT us Nathan Martinez MD LAB URINE ORDERABLES Final Result [facility] [address] [place] [address] * Drug Monitor, Alcohol Metab, W/Conf, Urine (06/12/2025 11:29 AM CDT) Alcohol Metabolites NEGATIVE <500 ng/mL [facility] 06/12/2025 11:2 9 AM CDT 06/12/2025 11:29 AM CDT us Nathan Martinez MD LAB URINE ORDERABLES Final Result [facility] [address] [place] [address] * Drug Monitoring Template (06/12/2025 11:29 AM CDT) Notes and Comments [facility] Comment: This drug testing is for medical treatment only. Analysis was performed as non-forensic testing and these results should be used only by healthcare providers to render diagnosis or treatment, or to monitor progress of medical conditions. LDT Notes: Confirmation tests were developed and their analytical performance characteristics have been determined by [facility]. It has not been cleared or approved by the FDA. This assay has been validated pursuant to the CLIA regulations and is used for clinical purposes. Healthcare Providers needing Interpretation assistance, please contact us at [phone] ( ) M-F, 8am to 10pm EST 06/12/2025 11:2 9 AM CDT 06/12/2025 11:29 AM CDT Nathan Martinez MD LAB URINE ORDERABLES Final Result [facility] [address] [place] [address] * Drug Monitor,Panel 1 w/Conf, Urine (06/12/2025 11:29 AM CDT) Amphetamine, ur, quant NEGATIVE <500 ng/mL [facility] Barbiturates, ur NEGATIVE <300 ng/mL [facility] Benzodiazepines NEGATIVE <100 ng/mL [facility] Cocaine metabolite NEGATIVE <150 ng/mL [facility] Marijuana Metabolite NEGATIVE <20 ng/mL [facility] Methadone Metabolite NEGATIVE <100 ng/mL [facility] Opiates NEGATIVE <100 ng/mL [facility] Oxycodone NEGATIVE <100 ng/mL [facility] Phencyclidine NEGATIVE <25 ng/mL [facility] Creatinine 59.5 > or = 20.0 mg/dL [facility] pH, ur 4.8 4.5 - 9.0 [facility] Oxidant NEGATIVE <200 mcg/mL [facility] 06/12/2025 11:2 9 AM CDT 06/12/2025 11:29 AM CDT Nathan Martinez MD LAB URINE ORDERABLES Final Result [facility] [address] [place] [address] * (ABNORMAL) POCT hemoglobin A1c (06/12/2025 10:58 AM CDT) Hemoglobin A1C, POC 9.7(A) 4.0 - 5.6 % Blood 06/12/2025 10:5 8 AM CDT Nathan Martinez MD POINT OF CARE TEST ORDERAB LES Final Result * PSA screen (06/12/2025 10:24 AM CDT) Pathologist [facility] PSA 0.37 < OR = 4.00 ng/mL [facility] Comment: The total PSA value from this assay system is standardized against the WHO standard. The test result will be approximately 20% lower when compared to the equimolar-standardized total PSA (Willis Marnie). Comparison of serial PSA results should be interpreted with this fact in mind. This test was performed using the Siemens chemiluminescent method. Values obtained from different assay methods cannot be used interchangeably. PSA levels, regardless of value, should not be interpreted as absolute evidence of the presence or absence of disease. Blood 06/12/2025 10:2 4 AM CDT 06/12/2025 10:25 AM CDT Narrative [facility] - 06/14/2025 1:12 AM CDT FASTING:YES PATIENT UNABLE TO VOID; ADVISED TO RETURN FOR COLLECTION. FASTING: YES Nathan Martinez MD LAB BLOOD ORDERABLES Final Result [facility] [address] [place] [address] * (ABNORMAL) Hemoglobin A1c (06/12/2025 10:24 AM CDT) Hgb A1C 9.4(H) <5.7 % [facility] Comment: For someone without known diabetes, a hemoglobin A1c value of 6.5% or greater indicates that they may have diabetes and this should be confirmed with a follow-up test. For someone with known diabetes, a value <7% indicates that their diabetes is well controlled and a value greater than or equal to 7% indicates suboptimal control. A1c targets should be individualized based on duration of diabetes, age, comorbid conditions, and other considerations. Currently, no consensus exists regarding use of hemoglobin A1c for diagnosis of diabetes for children. Blood 06/12/2025 10:2 4 AM CDT 06/12/2025 10:25 AM CDT [facility] - 06/14/2025 1:12 AM CDT FASTING:YES PATIENT UNABLE TO VOID; ADVISED TO RETURN FOR COLLECTION. FASTING: YES us Nathan Martinez MD LAB BLOOD ORDERABLES Final Result [facility] [address] [place] [address] * (ABNORMAL) Lipid panel (06/12/2025 10:24 AM CDT) [facility] Cholesterol 280(H) <200 mg/dL [facility] HDL 32(L) > OR = 40 mg/dL [facility] Triglycerides 635(H) <150 mg/dL [facility] Comment: If a non-fasting specimen was collected, consider repeat triglyceride testing on a fasting specimen if clinically indicated. Casanova et al. J. of Clin. Lipidol. 2015;9:129-169. There is increased risk of pancreatitis when the triglyceride concentration is very high (> or = 500 mg/dL, especially if > or = 1000 mg/dL). Casanova et al. J. of Clin. Lipidol. 2015;9:129-169. LDL mg/dL (calc) [facility] Comment: LDL cholesterol not calculated. Triglyceride levels greater than 400 mg/dL invalidate calculated LDL results. Reference range: <100 Desirable range <100 mg/dL for primary prevention; <70 mg/dL for patients with CHD or diabetic patients with > or = 2 CHD risk factors. LDL-C is now calculated using the Narinder-Bo calculation, which is a validated novel method providing better accuracy than the Friedewald equation in the estimation of LDL-C. Narinder SS et al. TESSY. 2013;310(19): 7576-0732 (http://education.Abcodia/faq/UZK199) Chol/HDL ratio 8.8(H) <5.0 (calc) [facility] Non-HDL, (LDL+VLDL) 248(H) <130 mg/dL (calc) [facility] Comment: Non-HDL level > or = 220 is very high and may indicate genetic familial hypercholesterolemia (FH). Clinical assessment and measurement of blood lipid levels should be considered for all first-degree relatives of patients with an FH diagnosis. For patients with diabetes plus 1 major ASCVD risk factor, treating to a non-HDL-C goal of <100 mg/dL (LDL-C of <70 mg/dL) is considered a therapeutic option. Blood 06/12/2025 10:2 4 AM CDT 06/12/2025 10:25 AM CDT Narrative [facility] - 06/14/2025 1:12 AM CDT FASTING:YES PATIENT UNABLE TO VOID; ADVISED TO RETURN FOR COLLECTION. FASTING: YES us Nathan Martinez MD LAB BLOOD ORDERABLES Final Result [facility] [address] [place] [address] * (ABNORMAL) Comprehensive metabolic panel (06/12/2025 10:24 AM CDT) [facility] Glucose 424(H) 65 - 99 mg/dL [facility] Comment: Verified by repeat analysis. Fasting reference interval For someone without known diabetes, a glucose value >125 mg/dL indicates that they may have diabetes and this should be confirmed with a follow-up test. BUN 11 7 - 25 mg/dL [facility] Creatinine 1.08 0.70 - 1.30 mg/dL [facility] eGFR 81 > OR = 60 mL/min/1.7 3m2 [facility] BUN/creat ratio SEE NOTE: 6 - 22 (calc) [facility] Comment: Not Reported: BUN and Creatinine are within reference range. Sodium 134(L) 135 - 146 mmol/L [facility] Potassium, pl 4.2 3.5 - 5.3 mmol/L [facility] Chloride 94(L) 98 - 110 mmol/L [facility] CO2 28 20 - 32 mmol/L [facility] Calcium 9.9 8.6 - 10.3 mg/dL [facility] Protein, sr 7.4 6.1 - 8.1 g/dL [facility] Albumin 4.7 3.6 - 5.1 g/dL [facility] GLOBULIN 2.7 1.9 - 3.7 g/dL (calc) [facility] Alb/glob ratio 1.7 1.0 - 2.5 (calc) [facility] Bilirubin, total 0.5 0.2 - 1.2 mg/dL [facility] Alk phos 66 35 - 144 U/L [facility] AST 17 10 - 35 U/L [facility] ALT (SGPT) 37 9 - 46 U/L [facility] Blood 06/12/2025 10:2 4 AM CDT 06/12/2025 10:25 AM CDT Narrative [facility] - 06/14/2025 1:12 AM CDT FASTING:YES PATIENT UNABLE TO VOID; ADVISED TO RETURN FOR COLLECTION. FASTING: YES us Nathan Martinez MD LAB BLOOD ORDERABLES Final Result [facility] [address] [place] [address] * Albumin Creatinine Ratio, Urine (01/20/2025 11:16 [...] Martinez MD LAB URINE ORDERABLES Final Result [facility] [address] [facility] [place] [address] * (ABNORMAL) Colonoscopy (05/09/2024 7:50 AM CDT) Anatomical Region Laterality Modality Other Historical Provider ENDOSCOPY PROCEDURES Marilee l Result from Last 3 Months or Most Recently Relevant to Health Maintenance Insurance [facility] CLAIMS [facility] CLAIMS Advance Directives For more information, please contact: [phone] * Full Code (Latest Code Status on File) Date Activated Date Inactivated Comments 10/12/2024 2:05 AM 10/15/2024 5:49 PM Care Teams Roof Truss Machine Tender Relationship Specialty Start Date End Date Nathan Martinez MD PCP - General Family Practice 09/10/20 Monique Garcia MD Referring Physician Gastroenterology 06/11/20 Monique Garcia MD Referring Physician Gastroenterology 06/11/20
--- OUTSIDE RECORDS SUMMARY | 2025-08-01 23:47 | XMS_ITS | CCD ---
Author Name Interface, V2Osrcisp lity Address [address] [place] [address] [facility]ists, [place] Address [address] [place] [address] Care Team Providers Care Riveting Machine Operator Tape Control Name Role Phone Darien GUNN, Mata James [...]
--- OUTSIDE RECORDS SUMMARY | 2025-08-01 23:47 | XMS_ITS | Clinical Summary ---
Author Organization [facility] Address [address] [place] [address] Phone Care Team Providers Care Transportation Solutions Manager Name Role Phone Unavailable Primary Care Provider [...] Encounters Date Type Department Care Team Description 07/11/2025 External Device Data [facility] ABSTRACTION Provider, Abstract 07/11/2025 External Device Data [facility] ABSTRACTION Provider, Abstract 07/11/2025 External Device Data [facility] ABSTRACTION Provider, Abstract 06/27/2025 External Device Data [facility] ABSTRACTION Provider, Abstract 06/14/2025 External Device Data [facility] ABSTRACTION Provider, Abstract 06/14/2025 External Device Data [facility] ABSTRACTION Provider, Abstract 06/13/2025 External Device Data [facility] ABSTRACTION Provider, Abstract 05/30/2025 External Device Data [facility] ABSTRACTION Provider, Abstract 05/16/2025 External Device Data [facility] ABSTRACTION Provider, Abstract 05/16/2025 External Device Data [facility] ABSTRACTION Provider, Abstract 05/16/2025 External Device Data [facility] ABSTRACTION Provider, Abstract 05/10/2025 External Device Data [facility] ABSTRACTION Provider, Abstract from Last 3 Months Social History Tobacco [...] SCREENING 05/09/2034 05/09/2024 Colorectal Cancer Screening 05/09/2034 Insurance [facility]
--- OUTSIDE RECORDS SUMMARY | 2025-08-01 23:47 | XMS_ITS ---
Author Name Interface, [id number] lity Address [address] [place] [address] [facility] Address [address] [place] [address] Allergies and Adverse Reactions Medication/Group Name Reaction [...]
[2025-08-02] VITALS (24 sets, daily range): BP systolic 113–143; BP diastolic 79–91; PULSE 82–112; RESP 11–21; TEMP 37.1; O2SAT 93–97
[2025-08-02 01:37] LABS: Hematocrit 43.9 % (42.0-52.0); Hemoglobin 14.8 g/dL (14.0-18.0); Immature Granulocyte Percent A 0.1 % (0-0.5); Lymphocytes Absolute Auto 2.16 K/mm3 (0.9-3.2); Mean Corpuscular HGB Conc 33.7 g/dl (32-36); Mean Corpuscular Hemoglobin 26.3 pg (26-34); Mean Corpuscular Volume 78.0 fl (80-100); Nucleated Red Blood Cells Absolute Auto 0.000 K/mm3 (0.0-0.012); Nucleated Red Blood Cells Perc 0.0 % (0.0-0.2); Platelet Count Result 300 k/mm3 (150-375); Red Blood Count 5.63 M/mm3 (4.6-6.20); White Blood Count 7.2 K/mm3 (4.5-10.0)
[2025-08-02 01:52] LABS: Alanine Aminotransferase 56 U/L (6-50); Albumin Level 4.8 g/dL (3.5-5.1); Alkaline Phosphatase 60 U/L (38-126); Anion Gap 8 mmol/L (4-12); Aspartate Amino Transferase 37 U/L (17-59); Bilirubin,Total 0.6 mg/dL (0.2-1.3); Blood Urea Nitrogen 11 mg/dL (9-20); Calcium 9.5 mg/dL (8.4-10.2); Carbon Dioxide 24 mmol/L (22-30); Chloride 102 mmol/L (98-107); Estimated Glomerular Filt Rate > 60; Glucose 191 mg/dL (65-110); Lipase 248 U/L (23-300); Potassium 4.1 mmol/L (3.4-5.0); Sodium 134 mmol/L (137-145); Total Protein 8.5 g/dL (6.3-8.2)
--- OUTSIDE RECORDS SUMMARY | 2025-08-02 02:28 | XMS_ITS ---
Author Name Interface, [id number] lity Address [address] [place] [address] [facility] Address [address] [place] [address] Allergies and Adverse Reactions Medication/Group Name Reaction [...]
--- OUTSIDE RECORDS SUMMARY | 2025-08-02 02:29 | XMS_ITS | Clinical Summary ---
Author Organization [facility] Address [address] [place] [address] Care Team Providers Care Health Policy Manager Name Role Phone Monique Garcia MD Unavailable [phone] Monique Garcia MD Unavailable [phone] Nathan Martinez MD Primary Care Provider [phone] Allergies Active Allergy Reactions Criticality Noted Date [...] today with results pending. Slight relief with [place] 5 mg. We will increase dosage to [...] mg Assessment & Plan (10/15/2023 11:29 AM BREAST TRIMMER): A1c today . Continue glipizide/Trulicity at same [...] 09/12/2022 Assessment & Plan (09/12/2022 9:35 AM BREAST TRIMMER): Some tinnitus for 2 months. Possible hearing [...] lipids Assessment & Plan (08/05/2024 2:15 PM BREAST TRIMMER): Continue atorvastatin same dosage. Needs repeat lipid Assessment & Plan (05/01/2024 12:22 PM CDT): Needs repeat lipids. Continue atorvastatin at same dose. Assessment & Plan (01/07/2024 4:08 PM CDT): Continue atorvastatin same dosage but needs repeat lipids. Assessment & Plan (10/15/2023 11:35 AM BREAST TRIMMER): Continue atorvastatin at same dosage. Well controlled. Assessment & Plan (06/23/2023 2:03 PM CDT): Continue Lipitor same dosage but needs repeat lipids. Assessment & Plan (01/15/2023 1:58 PM CDT): Continue atorvastatin same dosage but needs repeat lipids Assessment & Plan (09/11/2022 3:45 PM BREAST TRIMMER): Continue atorvastatin same dosage Acute left ankle [...] counseling. Assessment & Plan (10/15/2023 12:07 PM BREAST TRIMMER): Diabetic foot exam: Left monofilament exam: normal [...] surgeon Assessment & Plan (09/02/2021 8:59 AM BREAST TRIMMER): Pain most recently is in the right [...] 09/02/2021 Assessment & Plan (09/02/2021 9:00 AM BREAST TRIMMER): Refer to Dermatology Chronic abdominal pain 08/30/2021 Assessment & Plan (05/02/2024 3:02 PM CDT): History of multiple adhesions and several times he has had to had bowel obstruction treated. Constant pain. Worse about 30 minutes after eating. Referral to GI. Left lower quadrant Assessment & Plan (09/16/2021 9:44 AM BREAST TRIMMER): Try peppermint oil pill daily. Discontinue Levbid. Refer to GI. Needs colonoscopy. Assessment & Plan (09/02/2021 8:59 AM BREAST TRIMMER): Previous pain is similar to this pain [...] controlled. Assessment & Plan (08/05/2024 2:14 PM BREAST TRIMMER): Continue Provigil at same dosage. Well controlled. Return 3 months Assessment & Plan (05/01/2024 12:20 PM CDT): Continue Provigil at same dosage. Well controlled. Return 3 months Assessment & Plan (01/07/2024 4:03 PM CDT): Continue Provigil at same dosage. Well controlled. Assessment & Plan (10/16/2023 1:08 PM BREAST TRIMMER): Takes Provigil off-label. Adequate control with medicine. [...] usage. Assessment & Plan (09/13/2021 9:27 AM BREAST TRIMMER): Continue modafinil at same dosage. Well controlled. No signs of toxicity and patient understands this is off-label treatment Assessment & Plan (08/30/2021 7:27 AM BREAST TRIMMER): Allow modafinil as no evidence of toxicity and evidence of benefit Assessment & Plan (06/11/2021 1:30 PM CDT): Continue Provigil at same dosage. Well controlled. Assessment & Plan (02/08/2021 10:32 AM CDT): Continue modafinil at same dosage. Well controlled. Assessment & Plan (11/09/2020 1:42 PM CDT): Allow modafinil but understands off-label Assessment & Plan (10/08/2020 10:45 AM BREAST TRIMMER): Previously diagnosed with this by psychiatrist at [...] PFTs Assessment & Plan (10/08/2020 10:46 AM BREAST TRIMMER): Much improved Assessment & Plan (09/10/2020 10:03 AM BREAST TRIMMER): Mainly with exertion and will refer to [...] disease Assessment & Plan (10/08/2020 10:45 AM BREAST TRIMMER): Much improved Assessment & Plan (09/10/2020 9:58 AM BREAST TRIMMER): Persisting cough and will refer to Pulmonary for Rash 09/10/2020 Assessment & Plan (10/08/2020 10:45 AM BREAST TRIMMER): Much improved Assessment & Plan (09/10/2020 10:02 AM BREAST TRIMMER): There is a dry Pash of eczematoid type rash on his back that is different than psoriasis he has other areas. We will give him some topical hydrocortisone cream but not to use longer than 2 weeks as risk of atrophy and tolerance. Nasal polyp 09/10/2020 Assessment & Plan (09/10/2020 10:07 AM BREAST TRIMMER): ENT referral Anemia 09/09/2020 Assessment & Plan (09/09/2020 1:03 PM BREAST TRIMMER): Needs iron studies and methylmalonic acid level. [...] if we can send it to the [facility] and see if this covered there. [...] months. Assessment & Plan (08/08/2024 11:33 AM BREAST TRIMMER): A1c today. Is improved at 7.0. Continue [...] controlled. Assessment & Plan (09/11/2022 3:47 PM BREAST TRIMMER): A1C TODAY.BMI Follow-up includes: nutrition counseling and [...] weekly Assessment & Plan (09/16/2021 9:43 AM BREAST TRIMMER): A1c today. Diabetes needing better control. No hypoglycemic symptoms. Metformin, Jardiance, and glipizide daily. No significant improvement and will add Trulicity 0.75 mg weekly Assessment & Plan (08/30/2021 7:25 AM BREAST TRIMMER): A1c today. Assessment & Plan (06/17/2021 10:38 [...] today. Assessment & Plan (10/08/2020 10:42 AM BREAST TRIMMER): Check fasting blood sugar today. Result is 415 no he has had better sugars at home. No hypoglycemic symptoms will increase Jardiance to 25 mg daily as he has had no side effects. Assessment & Plan (09/10/2020 9:58 AM BREAST TRIMMER): Needs better control. Medication options discussed. Risk [...] controlled. Assessment & Plan (08/05/2024 2:13 PM BREAST TRIMMER): Continue Lexapro at same dosage. Well controlled. Assessment & Plan (05/01/2024 12:21 PM CDT): Continue Lexapro at same dosage. Well controlled. Assessment & Plan (01/07/2024 4:04 PM CDT): Continue Lexapro at same dosage. Well controlled. Assessment & Plan (10/15/2023 11:35 AM BREAST TRIMMER): Continue Lexapro at same dosage. Well controlled. Assessment & Plan (06/23/2023 2:07 PM CDT): Continue Lexapro at same dosage. Well controlled. Assessment & Plan (01/15/2023 2:00 PM CDT): Continue Lexapro at same dosage. Well controlled. Assessment & Plan (09/11/2022 3:44 PM BREAST TRIMMER): Continue Lexapro at same dosage. Well controlled. Assessment & Plan (05/02/2022 11:00 AM CDT): Continue Lexapro at same dosage. Well controlled. Assessment & Plan (12/13/2021 9:57 AM CDT): Continue Lexapro at same dosage. Well controlled. Assessment & Plan (08/30/2021 7:26 AM BREAST TRIMMER): Continue Lexapro at same dosage. Well controlled. Assessment & Plan (06/11/2021 1:30 PM CDT): Continue Lexapro at same dosage. Well controlled. Assessment & Plan (02/08/2021 10:33 AM CDT): Continue Lexapro at same dosage. Well controlled. Assessment & Plan (11/09/2020 1:42 PM CDT): Continue Lexapro at same dosage. Well controlled. Assessment & Plan (09/09/2020 1:01 PM BREAST TRIMMER): Continue medication at same dosage. Well controlled. [...] controlled. Assessment & Plan (10/15/2023 11:36 AM BREAST TRIMMER): Continue trazodone at same dosage. Well controlled. Assessment & Plan (06/23/2023 2:04 PM CDT): Continue trazodone same dosage. Well controlled. Assessment & Plan (01/15/2023 1:59 PM CDT): Continue trazodone at same dosage. Well controlled. Assessment & Plan (09/11/2022 3:44 PM BREAST TRIMMER): Continue trazodone Assessment & Plan (05/02/2022 11:04 AM CDT): Continue trazodone at same dosage. Well controlled. Assessment & Plan (12/13/2021 9:57 AM CDT): Continue trazodone at same dosage. Well controlled. Assessment & Plan (08/30/2021 7:26 AM BREAST TRIMMER): Continue trazodone at same dosage. Well controlled. Assessment & Plan (06/11/2021 1:30 PM CDT): Continue trazodone at same dosage. Well controlled. Assessment & Plan (02/08/2021 10:36 AM CDT): Continue trazodone at same dosage. Well controlled. Assessment & Plan (10/08/2020 10:31 AM BREAST TRIMMER): Improved. Continue trazodone 100 mg Assessment & Plan (09/10/2020 10:00 AM BREAST TRIMMER): Increase trazodone to 100 mg needs better [...] Department Care Team Description 06/14/2025 Results Follow-Up [facility] [address] [place] [address] Nathan Martinez MD Lipid panel, Hemoglobin A1c, PSA screen, Additional followed-up results: 5 06/12/2025 11:00 AM CDT Office Visit [facility] [address] [place] [address] Nathan Martinez MD Type 2 diabetes mellitus with hyperglycemia, without long-term current use of insulin (HCC) (Primary Dx); Lumbar radiculopathy; Mixed hyperlipidemia; Psychophysiologic insomnia; Attention deficit hyperactivity disorder (ADHD), predominantly inattentive type; Major depression in remission; Screening PSA (prostate specific antigen); Thoracic spine pain 05/23/2025 Orders Only [facility] [address] [place] [address] Nathan Martinez MD Mixed hyperlipidemia (Primary Dx); [...] drink = 0.6 oz pur e alcohol) [facility] Utilities Answer Date Recorded In the past 12 months has [employer] electric, gas, oil, or water company threatened [...] often do you attend chur ch or mosque services? Never 10/13/2024 Do you belong to any clubs o r organizations such as rastafari groups, unions, fraternal or athletic groups, or [...] any time in the past 12 m [facility], were you homeless or living in a [...] LAB URINE ORDERABLES Final Result [facility] [address] [place] [address] * Drug Monitor, Alcohol Metab, W/Conf, Urine (06/12/2025 11:29 AM CDT) Alcohol Metabolites NEGATIVE <500 ng/mL [facility] 06/12/2025 11:2 9 AM CDT 06/12/2025 11:29 AM CDT us Nathan Martinez MD LAB URINE ORDERABLES Final Result [facility] [address] [place] [address] * Drug Monitoring Template (06/12/2025 11:29 AM [...] analytical performance characteristics have been determined by [facility]. It has not been cleared or approved by the FDA. This assay has been validated pursuant to the CLIA regulations and is used for clinical purposes. Healthcare Providers needing Interpretation assistance, please contact us at [phone] ( ) M-F, 8am to 10pm EST 06/12/2025 11:2 9 AM CDT 06/12/2025 11:29 AM CDT Nathan Martinez MD LAB URINE ORDERABLES Final Result [facility] [address] [place] [address] * Drug Monitor,Panel 1 w/Conf, Urine (06/12/2025 11:29 AM CDT) Amphetamine, ur, quant NEGATIVE <500 ng/mL [facility] Barbiturates, ur NEGATIVE <300 ng/mL [facility] Benzodiazepines NEGATIVE <100 ng/mL [facility] Cocaine metabolite NEGATIVE <150 ng/mL [facility] Marijuana Metabolite NEGATIVE <20 ng/mL [facility] Methadone Metabolite NEGATIVE <100 ng/mL [facility] Opiates NEGATIVE <100 ng/mL [facility] Oxycodone NEGATIVE <100 ng/mL [facility] Phencyclidine NEGATIVE <25 ng/mL [facility] Creatinine 59.5 > or = 20.0 mg/dL [facility] pH, ur 4.8 4.5 - 9.0 [facility] Oxidant NEGATIVE <200 mcg/mL [facility] 06/12/2025 11:2 9 AM CDT 06/12/2025 11:29 AM CDT Nathan Martinez MD LAB URINE ORDERABLES Final Result [facility] [address] [place] [address] * (ABNORMAL) POCT hemoglobin A1c (06/12/2025 10:58 AM CDT) Hemoglobin A1C, POC 9.7(A) 4.0 - 5.6 % Blood 06/12/2025 10:5 8 AM CDT Nathan Martinez MD POINT OF CARE TEST ORDERAB LES Final Result * PSA screen (06/12/2025 10:24 AM CDT) Pathologist [facility] PSA 0.37 < OR = 4.00 ng/mL [facility] Comment: The total PSA value from this assay system is standardized against the WHO standard. The test result will be approximately 20% lower when compared to the equimolar-standardized total PSA (Willis Ina). Comparison of serial PSA results should be [...] LAB BLOOD ORDERABLES Final Result [facility] [address] [place] [address] * (ABNORMAL) Hemoglobin A1c (06/12/2025 10:24 AM [...] 4 AM CDT 06/12/2025 10:25 AM CDT [facility] - 06/14/2025 1:12 AM CDT FASTING:YES PATIENT UNABLE TO VOID; ADVISED TO RETURN FOR COLLECTION. FASTING: YES us Nathan Martinez MD LAB BLOOD ORDERABLES Final Result [facility] [address] [place] [address] * (ABNORMAL) Lipid panel (06/12/2025 10:24 AM CDT) [facility] Cholesterol 280(H) <200 mg/dL [facility] HDL 32(L) > OR = 40 mg/dL [facility] Triglycerides 635(H) <150 mg/dL [facility] Comment: If a non-fasting specimen was collected, [...] Lipidol. 2015;9:129-169. LDL mg/dL (calc) [facility] Comment: LDL cholesterol not calculated. Triglyceride levels [...] LDL-C. Narinder SS et al. TESSY. 2013;310(19): 9071-1189 (http://education.LibreDigital/faq/BSB529) Chol/HDL ratio 8.8(H) <5.0 (calc) [facility] Non-HDL, (LDL+VLDL) 248(H) <130 mg/dL (calc) [facility] Comment: Non-HDL level > or = 220 [...] LAB BLOOD ORDERABLES Final Result [facility] [address] [place] [address] * (ABNORMAL) Comprehensive metabolic panel (06/12/2025 10:24 AM CDT) [facility] Glucose 424(H) 65 - 99 mg/dL [facility] [...] LAB BLOOD ORDERABLES Final Result [facility] [address] [place] [address] * Albumin Creatinine Ratio, Urine (01/20/2025 11:16 [...] Martinez MD LAB URINE ORDERABLES Final Result [facility] [address] [facility] [address] * (ABNORMAL) Colonoscopy (05/09/2024 7:50 AM CDT) Anatomical Region Laterality Modality Other Historical Provider ENDOSCOPY PROCEDURES Marilee l Result from Last 3 Months or Most Recently Relevant to Health Maintenance Insurance [facility] CLAIMS [facility] CLAIMS Advance Directives For more information, please contact: [phone] * Full Code (Latest Code Status on File) Date Activated Date Inactivated Comments 10/12/2024 2:05 AM 10/15/2024 5:49 PM Care Teams Health Policy Manager Relationship Specialty Start Date End Date Nathan Martinez MD PCP - General Family Practice 09/10/20 Monique Garcia MD Referring Physician Gastroenterology 06/11/20 Monique Garcia MD Referring Physician Gastroenterology 06/11/20
--- OUTSIDE RECORDS SUMMARY | 2025-08-02 02:29 | XMS_ITS | Clinical Summary ---
Author Organization [facility] Address [address] [place] [address] Phone Care Team Providers Care Structural Steel Detailer Name Role Phone Unavailable Primary Care Provider [...] 05/09/2034 05/09/2024 Colorectal Cancer Screening 05/09/2034 Insurance [facility]
--- OUTSIDE RECORDS SUMMARY | 2025-08-02 02:29 | XMS_ITS | CCD ---
Author Name Interface, [id number] lity Address [address] [place] [address] [facility]cialists, [place] Address [address] [place] [address] Care Team Providers Care Packaging Supervisor Name Role Phone Darien GUNN, Mata James [...]
--- OUTSIDE RECORDS SUMMARY | 2025-08-02 02:29 | XMS_ITS ---
Author Name Interface, [id number] lity Address [address] [place] [address] [facility] Address [address] [place] [address] Allergies and Adverse Reactions Medication/Group Name Reaction [...]
--- OUTSIDE RECORDS SUMMARY | 2025-08-02 02:29 | XMS_ITS | CCD ---
Author Name Interface, [id number] lity Address [address] [place] [address] [facility] e[facility]ists, [place] Address [address] [place] [address] Care Team Providers Care Insulation Batting Machine Operator Name Role Phone Darien GUNN, Mata James [...]
--- NOTE | 2025-08-02 02:44 | ED.GENADULT ---
HPI - General Adult General Chief complaint: Abdominal Pain Stated complaint: worsening abdominal pain x 3 days Time Seen by Provider: 08/02/25 01:52 History of Present Illness HPI narrative: 55-year-old male present to the emergency department for evaluation for worsening abdominal pain. Patient was evaluated on 07/29 and was having diffuse abdominal pain. Patient had a negative workup at that time. Patient states the pain has continued to worsen. Related Data Home Medications ?Medication ?Instructions ?Recorded ?Confirmed ?Last Taken ?Type escitalopram oxalate 20 mg tablet 20 mg PO DAILY 07/18/21 04/10/25 08/25/24 History modafinil 100 mg tablet 100 mg PO DAILY PRN Systemic Signs 07/18/21 03/13/25 08/18/24 History And Symptoms trazodone 100 mg tablet 100 mg PO HS 07/18/21 04/10/25 08/25/24 History famotidine 20 mg tablet (Pepcid AC) 20 mg PO DAILY Indigestion 02/02/23 03/13/25 Unknown History semaglutide 1 mg/dose (4 mg/3 mL) 1 mg subcut WEEKLY 08/27/24 04/10/25 03/06/25 History subcutaneous pen injector (Ozempic) empagliflozin 10 mg tablet 10 mg PO DAILY 03/13/25 03/13/25 Unknown History (Jardiance) polyethylene glycol 3350 17 17 g PO DAILY PRN constipation 03/13/25 03/13/25 Unknown History gram/dose oral powder Allergies Allergy/AdvReac Type Severity Reaction Status Date / Time ketorolac (From Toradol) Allergy Hives Verified 07/29/25 06:18 gabapentin AdvReac Anxiety Verified 07/29/25 06:18 promethazine (From Phenergan) AdvReac Anxiety Verified 07/29/25 06:18 zolpidem (From Ambien) AdvReac Other Verified 07/29/25 06:18 Review of Systems Review of Systems: All systems reviewed & are unremarkable except as noted in HPI and below PMFSH Past Medical History Medical History Posttraumatic stress disorder Type 2 diabetes mellitus History of small bowel obstruction Depression Diverticulitis Surgical History Surgical History History of left inguinal hernia repair x2 History of orthopedic surgery Right ankle and hand surgery. History of laparoscopic appendectomy Status post laparoscopic Ludmila fundoplication History of laparoscopic cholecystectomy History of exploratory laparotomy With adhesiolysis for small bowel obstruction in [place] around 2017 History of colon resection Open sigmoid colon resection for diverticulitis in [place] around 2014 Family History Family History Father Heart disease Grandparent Lung cancer Social History Social History Social History: Surrogate medical decision maker: Annelise Garcia, significant other. Code status: Full code. Smoking status: Never smoker Alcohol intake: current Drinks per week: 1 Substance use: never Substance use type: does not use Lack of Transportation: No Lack of Food: Never True Current Housing: I Have Housing Concerned About Future Housing: No Difficulty Paying Gas/Electric Bills: No Difficulty Paying for Meds: No Currently Unemployed: No Education: High School Diploma/GED Difficulty w/ Childcare or Family Care: No Additional living arrangements comments: Lives in [place] with significant other. He has 1 son. Additional occupation/education comments: Served in the [employer]. 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 Spiritual care concerns: No Exam Narrative: APPEARANCE: Well appearing, no pain, no distress, well-nourished. HEAD: normocephalic, atraumatic. EYES: PERRLA/EOMI, conjunctivae clear. NOSE: Normal no drainage EARS:TMS clear with good light reflex. THROAT: Pharynx clear, no exudate. NECK: Supple. No adenopathy, no masses. RESPIRATORY: Airway patent, respirations nonlabored. Clear to auscultation bilaterally, no rales, rhonchi, wheezing. CARDIOVASCULAR: Regular rate and rhythm without murmurs rubs or gallops. ABDOMINAL: Diffuse abdominal tenderness to palpation MUSCULOSKELETAL: Moves all extremities. Strength/ROM intact, No edema, No calf tenderness. NEURO: Alert. Cranial nerves II through XII intact. Good gait. Good coordination SKIN: Warm, dry. Normal Color Course Vital Signs Vital signs: Vital Signs Temperature 98.7 F 08/02/25 00:30 Pulse Rate 112 H 08/02/25 00:30 Respiratory Rate 18 08/02/25 00:30 Blood Pressure 131/82 08/02/25 00:30 Pulse Oximetry 97 08/02/25 00:30 Oxygen Delivery Room Air 08/02/25 00:30 Temperature 98.8 F 08/02/25 01:30 Pulse Rate 83 08/02/25 05:54 Respiratory Rate 17 08/02/25 05:54 Blood Pressure 125/84 08/02/25 05:54 Pulse Oximetry 95 08/02/25 05:54 Oxygen Delivery Room Air 08/02/25 00:30 [facility] Narrative Medical decision making narrative: 55-year-old male present to the emergency department for evaluation for worsening abdominal pain. Patient is currently afebrile with no leukocytosis hemoglobin of 14.8. No acute abnormalities on the patient's CMP. Lipase was negative. Patient was provided AV medications for pain control and additional IV fluids. Patient was complaining of worsening abdominal pain since being discharged. I did discuss the risk of having additional CT scans but patient states that his pain has worsened and is requesting re-imaging. UA was negative for infection. CT showed mild gastroenteritis with no other acute findings. Patient was updated results of his workup. Patient was revised to continue the clear liquid diet. Patient was advised to continue Tylenol for pain control. Patient will be given additional Zofran for nausea control, Reglan for nausea control and omeprazole. Differential Diagnosis Differential Diagnosis: Colitis, diverticulitis, small-bowel obstruction Lab Data [facility] Lab Attestation statement: I personally reviewed the patient's lab results. 08/02/25 01:32 08/02/25 01:32 Labs: Lab Results 08/02/25 08/02/25 Range/Units 01:32 04:23 WBC 7.2 (4.5-10.0) K/mm3 RBC 5.63 (4.6-6.20) M/mm3 Hgb 14.8 (14.0-18.0) g/dL Hct 43.9 (42.0-52.0) % MCV 78.0 L (80-100) fl MCH 26.3 (26-34) pg MCHC 33.7 (32-36) g/dl RDW 13.6 (11.5-14.5) % Plt Count 300 (150-375) k/mm3 MPV 8.7 (7.4-10.4) fl Immature Gran % (Auto) 0.1 (0-0.5) % Neut % (Auto) 62.3 (45.5-73.1) % Lymph % (Auto) 30.2 (18.3-44.2) % [place] % (Auto) 6.0 (2.6-8.5) % Eos % (Auto) 0.8 (0-4.4) % Baso % (Auto) 0.6 (0.2-1.2) % Lymph # (Auto) 2.16 (0.9-3.2) K/mm3 [place] # (Auto) 0.4 (0.1-0.6) K/mm3 Eos # (Auto) 0.1 (0-0.3) K/mm3 Baso # (Auto) 0.0 (0.0-0.1) K/mm3 Abs Immat Gran (auto) 0.01 (0.00-0.031) K/mm3 Absolute Neuts (auto) 4.5 (1.3-6.7) K/mm3 Absolute Nucleated RBC 0.000 (0.0-0.012) K/mm3 Nucleated RBC % 0.0 (0.0-0.2) % Sodium 134 L (137-145) mmol/L Potassium 4.1 (3.4-5.0) mmol/L Chloride 102 (98-107) mmol/L Carbon Dioxide 24 (22-30) mmol/L Anion Gap 8 (4-12) mmol/L BUN 11 (9-20) mg/dL Creatinine 0.96 (0.7-1.3) mg/dL Estim Creat Clear Calc Not Reportable Estimated GFR > 60 (59 - ) Glucose 191 H (65-110) mg/dL Calcium 9.5 (8.4-10.2) mg/dL Total Bilirubin 0.6 (0.2-1.3) mg/dL AST 37 (17-59) U/L ALT 56 H (6-50) U/L Alkaline Phosphatase 60 (38-126) U/L Total Protein 8.5 H (6.3-8.2) g/dL Albumin 4.8 (3.5-5.1) g/dL Lipase 248 (23-300) U/L Urine Color Yellow (Yellow) Urine Appearance Clear (Clear) Urine pH 5.5 (5.0-9.0) Ur Specific [place] > 1.045 H (1.001-1.035) Urine Protein Negative (Negative) mg/dL Urine Glucose (UA) 1+ H (Negative) mg/dL Urine Ketones Negative (Negative) mg/dL Ur Blood (Man) Negative (Negative) Urine Nitrate Negative (Negative) Urine Bilirubin Negative (Negative) Urine Urobilinogen 0.2 (<2.0) mg/dL Leukocyte Esterase Rfl Negative (Negative) DESTINEY/UL Imaging Data Radiologist's impression: ITS Impressions Abdomen/Pelvis CT 08/02/25 07:25 IMPRESSION: 1. Periumbilical hernia containing fat. 2. Diffuse hepatic steatosis. Overnight read CT abdomen pelvis with contrast impression: Findings suggestive of mild gastroenteritis without evidence of obstruction. Otherwise no acute intra-abdominal or pelvic findings. Discharge Plan Discharge Clinical Impression: Gastroenteritis Abdominal pain Qualifiers: Abdominal location: generalized Qualified Code(s): R10.84 - Generalized abdominal pain Patient Disposition: Home Condition: Stable Instructions: Antibiotic Form, Clear Liquid Diet (ED), Acute Nausea and Vomiting (ED), Abdominal Pain (ED) Additional Instructions: Zofran for nausea control. Reglan for additional nausea control. Omeprazole as directed for the next 14 days. Follow a clear liquid diet. Have close follow-up with your primary care physician. Patient Language: Irish Prescriptions: New omeprazole 20 mg capsule,delayed release(DR/EC) 20 mg PO DAILY 14 Days Qty: 14 0RF ondansetron 4 mg tablet,disintegrating 4 mg PO Q8H PRN (Reason: nausea and vomiting) Qty: 14 0RF metoclopramide HCl [Reglan] 10 mg tablet 10 mg PO Q6H PRN (Reason: nausea and vomiting) Qty: 14 0RF No Action trazodone 100 mg tablet 100 mg PO HS modafinil 100 mg tablet 100 mg PO DAILY PRN (Reason: Systemic Signs And Symptoms) Rx Instructions: Takes for ADD escitalopram oxalate 20 mg tablet 20 mg PO DAILY Ozempic 1 mg/dose (4 mg/3 mL) pen injector 1 mg subcut WEEKLY ondansetron 4 mg tablet,disintegrating 4 mg PO Q4H 0 Days Qty: 10 0RF Rx Instructions: give 1st dose 30min before emetogenic chemo dicyclomine 20 mg tablet 20 mg PO QID Qty: 20 0RF ondansetron 4 mg tablet,disintegrating 4 mg PO Q8H PRN (Reason: nausea and vomiting) Qty: 14 0RF famotidine [Pepcid AC] 20 mg tablet 20 mg PO DAILY docusate sodium 100 mg Capsule 100 mg PO Q12HR PRN (Reason: constipation) Qty: 60 0RF Jardiance 10 mg tablet 10 mg PO DAILY polyethylene glycol 3350 17 gram/dose powder 17 g PO DAILY PRN (Reason: constipation) Follow-up/Referrals: Juan,Nathan Ramos MD [Primary Care Provider, Internal Medicine]
[2025-08-02] MEDS: HYDROmorphone HCL INJ (*CRX) 1 MG/ML SYR IV PUSH (02:50)
[2025-08-02] MEDS: LACTATED RINGERS 1,000 ML 999 ML IV CONT (02:50)
[2025-08-02 04:29] LABS: Add Urine Microscopic? NO; Appearance Urine Clear (Clear); Glucose Urine UA 1+ mg/dL (Negative); Leukocyte Esterase Ur Negative LEU/UL (Negative); Nitrate Urine Negative (Negative); Specific Grav Ur > 1.045 (1.001-1.035)
== END 2025-08-02 05:46 | disposition home or self-care (01) ==
PROVIDERS: Emergency Provider Emergency Medicine; PCP Family Medicine
DX: K52.9 Noninfective gastroenteritis and colitis, unspecified (principal); R10.84 Generalized abdominal pain; E11.9 Type 2 diabetes mellitus without complications; F43.10 Post-traumatic stress disorder, unspecified; F32.A Depression, unspecified; Z90.49 Acquired absence of other specified parts of digestive tract; K76.0 Fatty (change of) liver, not elsewhere classified; K42.9 Umbilical hernia without obstruction or gangrene; Z79.85 Long-term (current) use of injectable non-insulin antidiabetic drugs; Z79.84 Long term (current) use of oral hypoglycemic drugs; Z79.899 Other long term (current) drug therapy
CPT/HCPCS: 36415; 74177; 80053; 81003; 83690; 85025; 96361; 96374; 99284; J1171; J7120; Q9967